=== PATIENT | male | born 1930 | race Hispanic/Latino ===

== ENCOUNTER 2016-12-21 16:16 | Inpatient (IN) | payer OTHER, MEDICARE ==
[2016-12-21] MEDS: POLYETHYLENE GLYCOL 3350 17 GM/Dose PACKET PO SCH (17:58)
[2016-12-21] MEDS: Cefpodoxime (Vantin) 200 mg Tab PO SCH (17:58)
[2016-12-21] MEDS ORDERED: Pantoprazole 40 mg EC Tab PO SCH (18:00)
[2016-12-21] MEDS: Insulin Lispro 1 UNITS/0.01 ML SC SCH (18:04)
[2016-12-21] MEDS: Albuterol 0.083% Inhal Sol (2.5 mg/3 mL) UD IH SCH (19:57)
[2016-12-21] MEDS: Insulin Reg-MEDIUM-Coverage SC SCH (21:34)
[2016-12-21 23:03] VITALS: BMI 25.9
[2016-12-21] MEDS ORDERED: Influenza Vaccine 45 MCG/0.5 ml IM ONE (23:03)
[2016-12-22] MEDS: Pantoprazole 40 mg EC Tab PO SCH ×2 (05:37→17:25)
[2016-12-22] MEDS: Cefpodoxime (Vantin) 200 mg Tab PO SCH ×2 (05:37→17:26)
[2016-12-22] MEDS: Levothyroxine 100 MCG TAB PO SCH (05:37)
[2016-12-22] MEDS: Insulin Reg-MEDIUM-Coverage SC SCH ×4 (06:51→22:01)
[2016-12-22] MEDS ORDERED: MULTI INGREDIENT TOP PRN ×2 (07:24→07:46)
[2016-12-22] MEDS: Albuterol 0.083% Inhal Sol (2.5 mg/3 mL) UD IH SCH ×4 (07:34→20:35)
[2016-12-22] MEDS ORDERED: Ammonium Lactate 12% Lotion (225 g) TOP PRN (08:12)
--- NOTE | 2016-12-22 08:34 | HP ---
The patient is in the transitional care unit in [facility] in [place]. The patient was admitted for deconditioning and rehabilitation, treatment of weakness, instability, altered state of balance, and history of fall. PAST MEDICAL HISTORY: Congestive heart failure. The patient has a pacemaker. The patient has diabetes, chronic lung disease, hypothyroidism, osteoarthritis, and carcinoma of prostate. The patient also HAS ALLERGY TO LEVAQUIN AND CONTRAST MEDIA. The patient has renal insufficiency, and past history of multiple angioplasties. The patient has history of treatment for prostate cancer. He is currently off chemotherapy which was discontinued due to side effects. PHYSICAL EXAMINATION: VITAL SIGNS: The patient's temperature 97.7, patient's pulse is 65, blood pressure 163/87, patient's respirations are 18, O2 sat is 95% on 2 liters of oxygen. HEAD: Normocephalic. He does have some tenderness in the posterior aspect of the skull. NECK: JVP is slightly elevated. The patient's carotid pulses are present. Thyroid is not enlarged. EYES: The pupils are equal. ENT: Within normal limits. LUNGS: Trachea central. Breath sounds vesicular. Adventitious sounds are heard bilaterally. Crepitations are diffuse, scattered. HEART: Normal sinus rhythm. S1, S2 present. No murmurs. ABDOMEN: Soft. The patient has tenderness, not localizing. The patient has distention. The patient complains of abdominal pain. CENTRAL NERVOUS SYSTEM: No focal neurological deficits are noted at this time. The patient does have a history of diabetic neuropathy. The patient has history of lumbar neuritis. The patient has history of peripheral neuropathy. MEDICATIONS: Consist of DuoNeb q. 6 hours. The patient is on amiodarone 200 mg daily, aspirin 81 mg daily. The patient is on vitamin D. The patient is on PhosLo, digoxin 125 mcg daily, Lasix 40 mg daily. The patient is on Lipitor 10 mg daily. The patient also gets gabapentin 200 mg daily. Has the prednisone 5 mg daily, pantoprazole 40 mg daily, Singulair 10 mg daily, Synthroid 100 mcg. A 2 g sodium heart healthy diet. BLOOD WORK: The blood sugar is 227 this morning. Will continue current management, physical therapy and continue all medications and evaluations. Giselle Polk MD cc: [id number] TT: 12/22/2016 08:34:04 mn ANNABELLA
[2016-12-22] MEDS ORDERED: Ammonium Lactate 12% Lotion (225 g) TOP SCH (10:00)
[2016-12-22] MEDS ORDERED: Levothyroxine 100 MCG TAB PO SCH (10:00)
[2016-12-22] MEDS: POLYETHYLENE GLYCOL 3350 17 GM/Dose PACKET PO SCH ×2 (10:25→17:25)
[2016-12-22] MEDS: Insulin Lispro 1 UNITS/0.01 ML SC SCH ×3 (10:34→17:57)
--- NOTE | 2016-12-22 11:54 | CON ---
DATE: 12/22/2016 REASON FOR CONSULTATION: Continuity of the care in transitional care unit, coronary artery disease s tatus post syncope. BRIEF CLINICAL HISTORY: This is an 86-year-old male with past medical history significant for schultz ry artery disease, metastatic prostate cancer, diabetes, hypertension, hyperlipidemia; coronary arter y disease, status post CABG many years ago, status post multiple PTCAs, status post AICD, who had a s yncopal episode at home while patient was in the laundry and felt dizzy and fell down while stacking the newspapers. Unable to stand up for a couple of hours. Ultimately, patient was able to call and then called 911 and was brought here. Denies any chest pain, denies any shortness of breath, denies any palpitation. The patient was found to have elevated BNP and fluid overload. Lasix was given. T he patient also had AICD interrogation done that shows end of life reaching in 2 months. Right now, defibrillator looks okay. Not any issues at this time bedsides this, though patient had 1 episode of flutter, very short lived, 3-4 weeks ago. No recent arrhythmia noted during the admission. PAST MEDICAL HISTORY: Significant for coronary artery disease, CABG, status post AICD, history of PT CA before CABG, history of PTCA after CABG, history of prostate cancer with metastasis, history of mu ltiple urinary tract infections, indwelling Avendano catheter; history of deep vein thrombosis, was on P radaxa at one point, but was later on discontinued because of the bleed; history of chronic renal ins ufficiency; history of ischemic cardiomyopathy, status post multiple stents as mentioned; history of yai-EA-mhmilla myocardial infarction on previous admission and, because of underlying comorbidity and asymptomatic, it was decided to treat medically. PREVIOUS CARDIAC WORKUP: The patient has recently had echocardiography done dated 12/20/2016 that sh owed ejection fraction 45%, trace to mild aortic regurgitation, mild to moderate valvular aortic sten osis, moderate mitral regurgitation, mild to moderate tricuspid regurgitation, RV systolic pressure 4 3, trace to mild pulmonary insufficiency. No vegetation or thrombus noted. Peak gradient across 22 mm, mean gradient 12 mm, valve area 1.3 cm2 consistent with mild to moderate aortic stenosis. REVIEW OF SYSTEMS: As per HPI. PHYSICAL EXAMINATION: VITAL SIGNS: Temperature afebrile, heart rate 69, blood pressure 167/71. HEENT: PERRLA. Extraocular muscles intact. NECK: Supple. No carotid bruits. No thyromegaly. CHEST: Clear to auscultation. HEART: S1, S2 regular. ABDOMEN: Soft. EXTREMITIES: Clubbing and cyanosis negative. EKG shows a V-paced rhythm, underlying normal sinus. BLOOD WORKUP: WBC 11.4, hemoglobin 9.3, hematocrit 29.6, platelet count 151. Chemistry shows sodium 135, potassium 4.____, chloride 96, carbon dioxide 33, anion gap of 10, BUN 42, creatinine 1.4, magn esium 2.6. IMPRESSION: Decompensated congestive heart failure, jugular venous distention elevated; kidney funct ion improved, though patient's baseline renal insufficiency, possibly reflecting the fluid overload. Recent echocardiogram shows ejection fraction 45%, aortic stenosis, mild to moderate; trace to mild aortic regurgitation, moderate mitral regurgitation, mild to moderate tricuspid regurgitation, right ventricular systolic pressure of 43. Coronary artery disease, status post coronary artery bypass gra ft, status post percutaneous transluminal coronary angioplasty; paroxysmal atrial fibrillation, diabe hafsa, hypertension, hyperlipidemia, renal insufficiency, prostate cancer with metastasis, czt-BV-[id number] nt myocardial infarction in the recent past. RECOMMENDATION: In view of above and comorbidities, will try to treat patient medically; no invasive cardiac workup. Will continue Lasix for decompensated congestive heart failure, acute on chronic, s econdary to systolic dysfunction. Monitor renal function closely. Continue amiodarone to prevent go ing into AFib. Continue baby aspirin. Continue digoxin. Continue atorvastatin. Will give an addit ional Lasix 1 dose at 2 p.m. Repeat the lab in the morning. As mentioned above, the day before yest brennen patient had AICD interrogation done that shows end of the life reaching in 2 months'. One epis ode of atrial flutter 2-3 weeks prior to admission. OptiVol also shows elevated as indirect measurem ent for the congestive heart failure consistent with fluid overload. Again, decompensated congestive heart failure, acute on chronic, secondary to systolic dysfunction. Thank you, Dr. Marcus, for providing the opportunity in taking care of the patient. Will put DVT prop hylaxis as well and monitor H and H. Will follow with you. Mely Chavarria MD cc: [id number] TT: 12/22/2016 11:53:56 Confirmation # [id number] Dictation # [id number] mn
--- NOTE | 2016-12-22 12:08 | PN ---
DATE: 12/22/2016 GI FOLLOWUP NOTE Seen and examined at the bedside earlier today. He was ambulating in the halls in TCU. He was given Dulcolax tab yesterday, and he happily reported having a good bowel movement. Did not report any melena or bright red blood. Abdominal pain is still present, but in no acute distress, tolerating oral intake. VITAL SIGNS: Temperature 97.7. His blood pressure is 167/71, pulse 69, respirations 18, 95 on nasal cannula. LABORATORY DATA: Labs today noted is POC glucose 227. PHYSICAL EXAMINATION: HEENT: Sclerae are anicteric. NECK: Supple. CARDIAC: S1, S2. LUNGS: With decreased breath sounds, but no rales or wheeze. ABDOMEN: With bowel sounds, softly distended. Positive for tenderness in the lower abdomen, but no rebound or guarding. ASSESSMENT: This is an 86-year-old male with history of metastatic prostate cancer, chronic constipation. He finally had a bowel movement yesterday after a Dulcolax tablet, status post fall, history of coronary artery disease, diabetes mellitus. He also is being treated for urinary tract infection, positive Klebsiella pneumoniae, elevated liver function tests, mainly AST, ALT, which are improving. The patient did have history of gallstones. Ultrasound was done on previous admission. The common bile duct was not dilated. It was measuring 4.5 mm. PLAN: Continue the bowel regimen. He is on MiraLax b.i.d. We can decrease the dose if patient has more than 2 stools a day. Continue PPI - Protonix. The patient is on Lasix. He is also on Lovenox, on Vantin p.o. He is also on his Lipitor and amiodarone. We will check labs in the a.m. Seen and discussed with Dr. Bal. Claudia ANAYA cc: [id number] TT: 12/22/2016 12:07:53 Confirmation # [id number] Dictation # [id number] jn ANNABELLA
[2016-12-22] MEDS: Enoxaparin 30 mg Syringe SC SCH (12:53)
--- NOTE | 2016-12-22 13:50 | CON ---
DATE: 12/22/2016 HISTORY OF PRESENT ILLNESS: An 86-year-old male with past medical history of coronary artery disease , metastatic prostate cancer, diabetes, hypertension, hyperlipidemia, coronary artery disease, and st atus post AICD. The patient came to hospital with a syncopal episode and was in the laundry and felt dizzy, came to the hospital. I was called to evaluate the patient. The patient transferred from [facility] floor to [facility] and sitting comfortably and able to answer all the questions. IMPRESSION: An 86-year-old male with multiple medical problems came to the hospital with a syncopal episode. Feeling better now. PLAN: Continue present management. We will follow up. Felix Bradley MD cc: [id number] TT: 12/22/2016 13:49:27 Confirmation # [id number] Dictation # [id number] tn
[2016-12-22] MEDS: Digoxin 125 mcg (0.125 mg) Tab PO SCH (13:58)
[2016-12-23] MEDS: Pantoprazole 40 mg EC Tab PO SCH ×2 (06:01→18:02)
[2016-12-23] MEDS: Levothyroxine 100 MCG TAB PO SCH (06:01)
[2016-12-23] MEDS: Cefpodoxime (Vantin) 200 mg Tab PO SCH ×2 (06:18→18:02)
[2016-12-23 06:22] LABS: ALB/GLOB RATIO 1.1 (1.1-1.8); BILIRUBIN,TOTAL 0.5 mg/dL (0.2-1.3); CALCIUM 8.2 mg/dL (8.4-10.5); POTASSIUM 4.3 mmol/L (3.6-5.0); TOTAL PROTEIN 5.4 g/dL (5.8-8.3)
[2016-12-23] MEDS: Albuterol 0.083% Inhal Sol (2.5 mg/3 mL) UD IH SCH ×4 (07:34→21:00)
[2016-12-23] MEDS: Insulin Reg-MEDIUM-Coverage SC SCH ×4 (07:52→22:24)
--- NOTE | 2016-12-23 09:24 | PN ---
DATE: 12/23/2016 The patient is an 86-year-old white man. He is in TR (transitional care unit) , room 327 bed 1. The patient was admitted for deconditioning, treatment of congestive heart failure, pain management and physical therapy. PAST MEDICAL HISTORY: CHF, congestive cardiomyopathy. The patient has a pacemaker. The patient has history of chronic lung disease, history of cancer of the prostate, history of renal insufficiency, diabetes mellitus. PHYSICAL EXAMINATION: VITAL SIGNS: This morning, the patient's pulse is 65, blood pressure is 130/ 60. The patient's respirations are 20, O2 sat is 99% on 2 liters of oxygen. HEAD: Normocephalic. He has some tenderness in the occipital area, but no localizing signs on the CAT scan. NECK: JVP is flat. Carotid pulses are present. Thyroid is not enlarged. HEART: Normal sinus rhythm. S1, S2 present. LUNGS: Trachea central. Breath sounds vesicular. No adventitious sounds are heard excepting occasional crepitations bilaterally. ABDOMEN: Soft, mildly distended. No localizing signs. No tenderness noted. CENTRAL NERVOUS SYSTEM: The patient is conscious, rational, oriented. There is no evidence of any focal neurological signs even though patient was admitted after a fall, possible syncope. Neurological evaluation does not reveal any significant pathology. MEDICATIONS: Consist of DuoNeb for respiratory treatment. The patient is on amiodarone 200 mg daily, aspirin 81 mg daily. The patient is on Hectorol 0.5 mcg p.o. daily. The patient is on insulin coverage for diabetes. The patient is on Lac-Hydrin cream for dry skin of leg, digoxin 125 mcg daily, Lasix 40 mg IV daily. The patient is on Protonix 40 mg daily, Lipitor 10 mg daily, Lovenox 30 mg subQ. The patient also gets MiraLax for constipation, gabapentin 200 mg. The patient is on Phoslo, prednisone 5 mg daily. The patient's diet is 2 gram sodium, heart healthy diet, diabetic. BLOOD WORK: Chemistry: The BUN is 45, creatinine 1.5 which appears to be at baseline for him. His sugar is 219. His condition is improved. Will continue current management. Giselle Polk MD cc: [id number] TT: 12/23/2016 09:23:55 Confirmation # [id number] Dictation # [id number] ariel W[place]HESTER
[2016-12-23] MEDS ORDERED: metOLazone 5 MG TAB PO STA (10:04)
[2016-12-23] MEDS: POLYETHYLENE GLYCOL 3350 17 GM/Dose PACKET PO SCH ×2 (10:37→18:02)
[2016-12-23] MEDS: Enoxaparin 30 mg Syringe SC SCH (10:37)
--- NOTE | 2016-12-23 11:07 | PN ---
DATE: 12/23/2016 The patient in room 327, bed 1. REASON FOR CONSULTATION: Coronary artery disease, cardiomyopathy, history of congestive heart failur e, syncope. HISTORY OF PRESENT ILLNESS: An 86-year-old male who has a significant history of coronary artery dis ease, metastatic prostate cancer, diabetes, hypertension, hyperlipidemia, status post CABG, status po st PTCA, status post AICD insertion, and syncopal episode at home. The patient felt dizzy while stac alexis the newspapers. He was unable to stand up for a couple of hours. Ultimately, the patient was a ble to call 911 and was brought to the hospital. The patient was also found to have elevated BNP and fluid overload. The patient had interrogation of AICD which showed that it is working normally but reaching end of life, and he has still 2 months on the battery. The patient is sitting in chair without any chest pain or palpitation. He says when he walks he gets shortness of breath. PHYSICAL EXAMINATION: VITAL SIGNS: Blood pressure 136/57, respirations 20, pulse 65, temperature 97.2. HEAD: Normocephalic. EYES: Pupils normal. Conjunctivae normal. NECK: JVP slightly elevated. LUNGS: Clear. CARDIOVASCULAR: S1, S2. ABDOMEN: Soft. No tenderness, no organomegaly. EXTREMITIES: No clubbing, no cyanosis. LABORATORY DATA: Shows sodium 136, potassium 4.3, BUN 45, creatinine 1.5, random sugar 219, random g lucose 193, calcium 8.2. AST 60, ALT 69, total protein 5.4, albumin 2.8. The patient had echo 12/20/2016 that showed left ventricle size is normal, mild concentric left ventr icular hypertrophy, LV ejection fraction mildly impaired with ejection fraction 45%, trace to mild ao rtic regurg, ____ valvular aortic stenosis, mitral regurgitation is moderate, mild to moderate tricus pid regurg, RVSP 42 mmHg. PAST DETAILED CARDIAC WORKUP: As mentioned in our consultation of 12/22/2016. DIAGNOSES: Decompensated congestive heart failure, acute on chronic, left ventricular systolic failu re; renal insufficiency, fluid overload, mild pulmonary hypertension; ____ aortic stenosis, mild to m oderate tricuspid regurgitation, moderate mitral regurg, trace to mild aortic regurgitation; coronary artery disease, status post coronary artery bypass surgery, status post angioplasty and stent insert ion; paroxysmal atrial fibrillation, diabetes, hypertension, hyperlipidemia, prostate cancer with met astasis, [id number] elevation myocardial infarction in the recent past. PLAN: The patient is on hand nebulizer therapy with albuterol. The patient is getting amiodarone 20 0 mg p.o. daily, aspirin 81 mg p.o. daily, digoxin 0.125 daily, furosemide 40 mg IV daily, atorvastat in 10 mg daily, Lovenox 30 subQ daily, Singulair 10 mg daily, Synthroid 100 mcg p.o. daily, Vantin 20 0 mg p.o. b.i.d., prednisone 5 mg daily. Will give patient Zaroxolyn 5 mg today to diurese more to h elp his shortness of breath. Will follow with you. Mely Walters MD cc: [id number] TT: 12/23/2016 10:54:56 Confirmation # [id number] Dictation # [id number] mn 12/23/2016 10:06:57
[2016-12-23] MEDS: Insulin Lispro 1 UNITS/0.01 ML SC SCH ×3 (11:31→17:08)
[2016-12-23] MEDS: Digoxin 125 mcg (0.125 mg) Tab PO SCH (14:59)
--- NOTE | 2016-12-23 15:17 | CP.PCM.PCO ---
Assessment & Plan - Assessment and Plan (Free Text) Assessment: neuro communication note:Headache is more cervicogenic with underlying episodes of hyperglycemia. cervical muscle exercises and tens unit for headache, fioricet 1tab po q4hr and gabapentin 200 mg po qhs. will sign off, please reconsult if necessary. rex BARRERA.
[2016-12-24] MEDS: Pantoprazole 40 mg EC Tab PO SCH ×2 (05:39→17:36)
[2016-12-24] MEDS: Levothyroxine 100 MCG TAB PO SCH (05:41)
[2016-12-24] MEDS: Cefpodoxime (Vantin) 200 mg Tab PO SCH ×2 (06:42→17:37)
[2016-12-24] MEDS: Albuterol 0.083% Inhal Sol (2.5 mg/3 mL) UD IH SCH ×6 (07:41→23:36)
[2016-12-24] MEDS: Insulin Reg-MEDIUM-Coverage SC SCH ×4 (08:12→21:21)
--- NOTE | 2016-12-24 08:30 | CP.PCM.PN ---
Subjective - Date & Time of Evaluation Date of Evaluation: 12/24/16 Time of Evaluation: 07:45 - Subjective Subjective: Patient is seen this morning in TRCU. He is feeling better. less SOB on exertion. c/o back pain. Objective - Vital Signs/Intake and Output Vital Signs (last 24 hours): Temp Pulse Resp BP Pulse Ox 97.9 F 66 20 109/54 L 96 12/23/16 16:00 12/23/16 16:00 12/23/16 16:00 12/23/16 16:00 12/23/16 16:00 Intake and Output: 12/24/16 12/24/16 06:59 18:59 Intake Total 680 Output Total 2200 Balance -1520 - Medications Medications: Current Medications Acetaminophen/Butalbital/Caffeine (Fioricet) 1 tab PO Q4H PRN; Protocol PRN Reason: Headache Albuterol Sulfate (Albuterol 0.083% Inhal Raissa (2.5 Mg/3 Ml) Ud) 2.5 mg IH QID JEANA PRN Reason: Protocol Last Admin: 12/24/16 07:41 Dose: 2.5 mg Amiodarone HCl (Cordarone) 200 mg PO DAILY JEANA PRN Reason: Protocol Last Admin: 12/23/16 10:35 Dose: 200 mg Aspirin (Ecotrin) 81 mg PO 0800 JEANA PRN Reason: Protocol Last Admin: 12/23/16 08:44 Dose: 81 mg Atorvastatin Calcium (Lipitor) 10 mg PO DIN JEANA PRN Reason: Protocol Last Admin: 12/23/16 18:02 Dose: 10 mg Calcium Acetate (Phoslo) 667 mg PO DAILY JEANA PRN Reason: Protocol Last Admin: 12/23/16 10:36 Dose: 667 mg Cefpodoxime Proxetil (Vantin) 200 mg PO 0600,1800 JEANA PRN Reason: Protocol Last Admin: 12/24/16 06:42 Dose: 200 mg Digoxin (Lanoxin) 0.125 mg PO 1400 JEANA PRN Reason: Protocol Last Admin: 12/23/16 14:59 Dose: 0.125 mg Doxercalciferol (Hectorol) 0.5 mcg PO DAILY JEANA PRN Reason: Protocol Last Admin: 12/23/16 10:36 Dose: 0.5 mcg Enoxaparin Sodium (Lovenox) 30 mg SC DAILY JEANA PRN Reason: Protocol Last Admin: 12/23/16 10:37 Dose: 30 mg Furosemide (Lasix) 40 mg IVP DAILY EJANA PRN Reason: Protocol Last Admin: 12/23/16 11:32 Dose: 40 mg Gabapentin (Neurontin) 200 mg PO HS JEANA PRN Reason: Protocol Last Admin: 12/23/16 23:17 Dose: 200 mg Insulin Human Lispro (Humalog) 20 units SC TID JEANA PRN Reason: Protocol Last Admin: 12/23/16 17:08 Dose: Not Given Insulin Human Regular (Humulin R Med) 0 units SC ACHS JEANA PRN Reason: Protocol Last Admin: 12/24/16 08:12 Dose: 1 units Lactic Acid (Lac-Hydrin 12% Lotion (225 G)) 0 gm TOP BID PRN PRN Reason: DRY SKI N Levothyroxine Sodium (Synthroid) 100 mcg PO 0600 JEANA PRN Reason: Protocol Last Admin: 12/24/16 05:41 Dose: 100 mcg Lidocaine (Lidoderm) 1 ea TD DAILY JEANA Montelukast Sodium (Singulair) 10 mg PO DAILY JEANA PRN Reason: Protocol Last Admin: 12/23/16 10:35 Dose: 10 mg Pantoprazole Sodium (Protonix Ec Tab) 40 mg PO 0630,1630 JEANA PRN Reason: Protocol Last Admin: 12/24/16 05:39 Dose: 40 mg Polyethylene Glycol (Miralax) 17 gm PO BID JEANA PRN Reason: Protocol Last Admin: 12/23/16 18:02 Dose: 17 gm Prednisone (Prednisone Tab) 5 mg PO DAILY JEANA PRN Reason: Protocol Last Admin: 12/23/16 10:36 Dose: 5 mg - Labs Labs: 12/23/16 05:00 - Constitutional Appears: No Acute Distress - Head Exam Head Exam: ATRAUMATIC, NORMOCEPHALIC - Respiratory Exam Respiratory Exam: Clear to Ausculation Bilateral, NORMAL BREATHING PATTERN - Cardiovascular Exam Cardiovascular Exam: +S1, +S2 - GI/Abdominal Exam GI & Abdominal Exam: Soft, Normal Bowel Sounds - Neurological Exam Neurological Exam: Alert, Awake, Oriented x3 Assessment and Plan - Assessment and Plan (Free Text) Assessment: s/p fall UTI Chronic heart failure HTN CAD COPD Hypothyroidism Back pain/arthritis DMII Plan: Patient is complaining of pain in his lower back. Will order lidoderm patch. continue PT. Patient received one dose of Zaroxolyn yesterday and diuresed well. Improvement in SOB on exertion. 2 gm sodium, diabetic diet
[2016-12-24] MEDS ORDERED: metOLazone 5 MG TAB PO STA (09:34)
[2016-12-24] MEDS: Enoxaparin 30 mg Syringe SC SCH (09:52)
[2016-12-24] MEDS: Lidocaine 5% Patch TD SCH (09:52)
[2016-12-24] MEDS: POLYETHYLENE GLYCOL 3350 17 GM/Dose PACKET PO SCH ×2 (09:53→17:36)
[2016-12-24] MEDS: Insulin Lispro 1 UNITS/0.01 ML SC SCH ×3 (09:57→17:37)
--- NOTE | 2016-12-24 11:08 | PN ---
DATE: 12/24/2016 The patient in room 327, bed 1. REASON FOR CONSULTATION: Coronary artery disease, cardiomyopathy, history of congestive heart failur e, syncope. HISTORY OF PRESENT ILLNESS: An 86-year-old male, known to have coronary artery disease, CABG, multip le angioplasties, hypertension, hyperlipidemia, diabetes, prostatic cancer with metastasis, status po st AICD insertion, had syncopal episode at home. The patient felt dizzy while stacking the newspaper s. He was not able to stand up for a couple of hours. Ultimately, he called 911 who brought him to the hospital. The patient was admitted on medical floor, got stabilized now, in transitional care un it for deconditioning and physical therapy. The patient was complaining of shortness of breath on mi nimal exertion, so I gave him Zaroxolyn 5 mg p.o. yesterday, along with Lasix, and he is feeling bett er today. Breathing is better and he had a good diuresis effect. Denies any chest pain or palpitati on. Sitting comfortably in chair. PHYSICAL EXAMINATION: VITAL SIGNS: Blood pressure 109/54, respirations 20, pulse 66, temperature 97.9. HEAD: Normocephalic. EYES: Pupils normal. Conjunctivae normal. NOSE AND THROAT: Normal. NECK: JVP is slightly elevated. LUNGS: No rales. CARDIOVASCULAR: S1, S2, systolic murmur, no rub. ABDOMEN: No organomegaly. Bowel sounds normal. EXTREMITIES: No clubbing, no cyanosis. LABORATORY DATA: Sodium 136, potassium 4.3, BUN 45, creatinine 1.5, random sugar 181, AST 60, ALT 69 , total protein 5.4, albumin 2.8. DIAGNOSES: Decompensated congestive heart failure, qxxsc-xu-tqiveum left ventricular systolic failur e, renal dysfunction, fluid overload, mild pulmonary hypertension, mild aortic stenosis, mild to mode rate tricuspid regurgitation, moderate mitral regurge, coronary artery disease, status post coronary artery bypass surgery, status post angioplasty and stent insertion, paroxysmal atrial fibrillation, d iabetes, hypertension, hyperlipidemia, prostate cancer with metastasis, non-ST segment elevation myoc ardial infarction in the recent past. PLAN: The patient felt better with Zaroxolyn 5 mg yesterday. We are going to give another dose toda y and therefore medication will continue the same, amiodarone 200 mg p.o. daily, aspirin 81 mg p.o. d aily, digoxin 0.125 daily, furosemide 40 IV daily, Lipitor 10 mg daily, Lovenox 30 subQ daily, Singul air 10 mg daily, Synthroid 100 mcg p.o. daily, Vantin 200 mg p.o. b.i.d., prednisone 5 mg daily. We will also repeat SMA-7 and CBC in the morning. The patient has not long time anymore episodes of atr ial fibrillation, we will continue present therapy. We will follow with you. Mely Walters MD cc: [id number] TT: 12/24/2016 11:08:06 Confirmation # [id number] Dictation # [id number] ln
[2016-12-24] MEDS: Digoxin 125 mcg (0.125 mg) Tab PO SCH (13:51)
[2016-12-24] MEDS: Apap-Butalbital-Caffeine 325-50-40mg Tab PO PRN (17:37)
[2016-12-25] MEDS: Pantoprazole 40 mg EC Tab PO SCH ×2 (06:14→18:21)
[2016-12-25] MEDS: Levothyroxine 100 MCG TAB PO SCH (06:14)
[2016-12-25] MEDS: Cefpodoxime (Vantin) 200 mg Tab PO SCH ×2 (06:14→18:22)
[2016-12-25] MEDS: Insulin Reg-MEDIUM-Coverage SC SCH ×4 (06:31→22:09)
[2016-12-25] MEDS: Albuterol 0.083% Inhal Sol (2.5 mg/3 mL) UD IH SCH ×7 (07:34→23:10)
[2016-12-25 08:46] LABS: ADD MANUAL DIFF? NO
[2016-12-25 08:51] LABS: BASO # 0.02 K/mm3 (0.0-2.0); BASO % 0.2 % (0.0-3.0); EOS # 0.3 (0.0-0.7); EOS % 3.1 % (1.5-5.0); GRAN # 6.33 (1.4-6.5); GRAN % 72.7 % (50.0-68.0); HEMATOCRIT 31.3 % (42.0-52.0); LYMPH # 1.3 (1.2-3.4); LYMPH % 15.1 % (22.0-35.0); MEAN CELL VOLUME 87.7 fL (80.0-105.0); MEAN CORPUSCULAR HEMOGLOBIN 27.5 pg (25.0-35.0); MEAN CORPUSCULAR HGB CONC 31.3 g/dl (31.0-37.0); MEAN PLATELET VOLUME 9.7 fl (7.0-11.0); MONO # 0.8 (0.1-0.6); MONO % 8.9 % (1.0-6.0); PLATELET COUNT 242 10^3/uL (120.0-450.0); RED CELL DISTRIBUTION WIDTH 16.1 % (11.5-14.5); WHITE BLOOD COUNT 8.7 10^3/ul (4.5-11.0)
[2016-12-25 09:03] LABS: CALCIUM 8.4 mg/dL (8.4-10.5); MAGNESIUM 2.6 mg/dL (1.7-2.2); PHOSPHOROUS 3.9 mg/dL (2.5-4.5); POTASSIUM 4.3 mmol/L (3.6-5.0)
--- NOTE | 2016-12-25 11:08 | PN ---
DATE: 12/25/2016 The patient is in the transitional care unit in [facility], room 327, bed 1. The patient was admitted from acute care for syncope. 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 The patient HAS ALLERGIES TO LEVOFLOXACIN AND ALSO IODINATED CONTRAST MEDIA. The patient was seen this morning. He is comfortable, getting physical therapy. States he is doing much better, ambulating and his strength and balance is good. PHYSICAL EXAMINATION: VITAL SIGNS: The patient's pulse is 76, blood pressure 115/54, respirations are 18. The patient's head is normocephalic. The patient had no complaints in the posterior part of the head that he had in the past. NECK: Thyroid is not clinically enlarged. JVP is flat. Carotid pulses are present. LUNGS: Trachea central. Breath sounds vesicular. Has a few scattered rales bilaterally. HEART: Normal sinus rhythm. The patient has a pacemaker with defibrillator. ABDOMEN: Soft, distended mildly. Diffuse tenderness. No localizing signs. CENTRAL NERVOUS SYSTEM: The patient has peripheral neuropathy. No focal neurological signs. Cranial nerves intact. Motor and sensory functions as noted. There is sensory function deficits with peripheral neuropathy related to diabetes mellitus. MEDICATIONS: The patient's medications consist of DuoNeb inhalation therapy. The patient is on amiodarone 200 mg daily, aspirin 81 mg daily. The patient is on vitamin D. The patient is on insulin coverage. The patient is on digoxin 125 mcg daily, Protonix 40 mg daily, Lasix 40 mg IV daily. The patient is on Zaroxolyn intermittent dose for fluid retention. The patient's dose of Lipitor is 10 mg daily. He is covered with Lovenox for prevention of deep vein thrombosis. He is on PhosLo 667 mg p.o. daily for adjustment of phosphate secondary to renal insufficiency. Diet is 2 gram sodium diabetic diet. His condition is improving. The patient' s clinical presentation today is stable. We will continue current management and follow up in the transitional care for deconditioning and rehabilitation. Giselle Polk MD cc: [id number] TT: 12/25/2016 11:08:00 Confirmation # [id number] Dictation # [id number] carlene WINCHE[place]
[2016-12-25] MEDS: POLYETHYLENE GLYCOL 3350 17 GM/Dose PACKET PO SCH ×2 (11:55→18:21)
[2016-12-25] MEDS: Lidocaine 5% Patch TD SCH (12:00)
[2016-12-25] MEDS: Enoxaparin 30 mg Syringe SC SCH (12:00)
[2016-12-25] MEDS: Insulin Lispro 1 UNITS/0.01 ML SC SCH ×2 (12:02→13:50)
--- NOTE | 2016-12-25 15:20 | PN ---
DATE: 12/25/2016 The patient in room 327, bed 1. REASON FOR CONSULTATION AND FOLLOWUP: Coronary artery disease, cardiomyopathy, history of congestive heart failure, syncope. HISTORY OF PRESENT ILLNESS: An 86-year-old male, known to have coronary artery disease, CABG, multip le angioplasties, hypertension, hyperlipidemia, diabetes, prostatic cancer with metastasis, status po st AICD insertion, had syncopal episode at home. The patient was on medical floor, now is in transit ional care unit for deconditioning and physical therapy. The patient, last 2 days, was complaining o f shortness of breath on minimal exertion, so Zaroxolyn 5 mg p.o. daily was given to the patient. He had good diuresis and he feels much better. Now, he can walk more distance without any shortness of breath. Denies any chest pain or palpitation. PHYSICAL EXAMINATION: VITAL SIGNS: Blood pressure 103/45, respirations 18, pulse 61, temperature 97.6. HEAD: Normocephalic. EYES: Pupils normal. Conjunctivae slightly pale. NECK: JVP low. Carotid equal. THORAX: AP diameter normal. LUNGS: Clear. CARDIOVASCULAR: S1 and S2, systolic murmur, no rub. ABDOMEN: Soft, no tenderness, no organomegaly. EXTREMITIES: No clubbing, no cyanosis. LABORATORY DATA: WBC 8.7, hemoglobin 9.8, hematocrit 31.3, platelet 242. Sodium 135, potassium 4.3, BUN 42, creatinine 1.4, random glucose 202, calcium 8.4, phosphorous 3.9. DIAGNOSES: Decompensated congestive heart failure, acute on chronic left ventricular systolic failur e, renal dysfunction, fluid overload, mild pulmonary hypertension, mild aortic stenosis, mild to mode rate tricuspid regurgitation, moderate mitral regurgitation, coronary artery disease, status post cor onary artery bypass surgery, status post angioplasty and stent insertion, paroxysmal atrial fibrillat ion. Last few months, patient has had no episodes of atrial fibrillation. Diabetes, hypertension, h yperlipidemia, prostatitic cancer with metastasis, non-ST segment elevation myocardial infarction in the recent past. PLAN: We will continue amiodarone 200 mg daily, aspirin 81 mg p.o. doxercalciferol/Hectorol 0.5 mcg p.o. daily, insulin as ordered, digoxin 0.125 daily, prednisone 5 mg daily, insulin Humalog 20 units subQ t.i.d. We will continue present therapy and we will follow with you. Mely Walters MD cc: [id number] TT: 12/25/2016 15:19:42 Confirmation # [id number] Dictation # [id number] en
[2016-12-25] MEDS: Digoxin 125 mcg (0.125 mg) Tab PO SCH (16:16)
[2016-12-26] MEDS: Pantoprazole 40 mg EC Tab PO SCH ×2 (06:12→16:30)
[2016-12-26] MEDS: Cefpodoxime (Vantin) 200 mg Tab PO SCH ×2 (06:13→18:01)
[2016-12-26] MEDS: Levothyroxine 100 MCG TAB PO SCH (06:13)
[2016-12-26] MEDS: Insulin Reg-MEDIUM-Coverage SC SCH ×4 (06:33→22:08)
[2016-12-26] MEDS: Albuterol 0.083% Inhal Sol (2.5 mg/3 mL) UD IH SCH ×5 (07:37→23:14)
--- NOTE | 2016-12-26 09:04 | PN ---
DATE: 12/26/2016 The patient is in the transitional care unit in room 327, bed 1. The patient was admitted for rehabilitation, deconditioning, and treatment of congestive heart failure, and also the patient had history of syncope. The patient is seen this morning. He is comfortable, sitting in the chair, eating his breakfast. PHYSICAL EXAMINATION: VITAL SIGNS: Pulse is 65, blood pressure 110/58. Respirations are 18. O2 sat is 98%. He is on 2 liters of oxygen. APPEARANCE: Good. HEAD: Normocephalic. NECK: Within normal limits. HEART: Normal sinus rhythm. The patient has a pacemaker. LUNGS: Trachea is central. Breath sounds vesicular. Scattered rales are heard. CENTRAL NERVOUS SYSTEM: Within normal limits. ABDOMEN: Soft. Liver and spleen not palpable. No tenderness. The patient's medications will be continued. There is no change. LABORATORY WORK: The last hemoglobin is 9.8. His chemistry: The BUN is 42. Creatinine is 1.4. His blood sugar is 190. PLAN: We will continue current management. Continue physical therapy. The patient is on a diet. The oreman has reduced his diet to a renal diet. He has restriction for diabetes. He has restriction for congestive heart failure, and now he has also restriction for renal insufficiency. The patient is not happy, but I have advised him to try to tolerate whatever is given for it is for his benefit. Giselle Polk MD cc: [id number] TT: 12/26/2016 09:03:27 Confirmation # [id number] Dictation # [id number] jn MTDD
[2016-12-26] MEDS: Lidocaine 5% Patch TD SCH (10:16)
[2016-12-26] MEDS: Enoxaparin 30 mg Syringe SC SCH (10:17)
[2016-12-26] MEDS: POLYETHYLENE GLYCOL 3350 17 GM/Dose PACKET PO SCH ×2 (10:17→18:00)
[2016-12-26] MEDS: Insulin Lispro 1 UNITS/0.01 ML SC SCH ×3 (10:31→17:58)
--- NOTE | 2016-12-26 13:10 | PN ---
DATE: 12/26/2016 REASON FOR CONSULTATION AND FOLLOWUP: Coronary artery disease, cardiomyopathy, history of congestive heart failure, syncope. BRIEF CLINICAL HISTORY: This is an 86-year-old male with a past medical history significant for karen nary artery disease, CABG, pre and post CABG PTCA, hypertension, hyperlipidemia, diabetes, cardiomyop athy, metastatic prostate cancer, status post AICD with syncopal episode, admitted to the medical popeye or after a syncopal episode at home. The patient initially treated on the medical floor, now is in t ransitional care unit. The patient has fluid overload. Dr. Walters gave Zaroxolyn 5 mg, started feel ing better and able to walk without getting short of breath. Now is in transitional care unit, 327, bed 1. Feels better. PHYSICAL EXAMINATION: As follows: VITAL SIGNS: Temperature afebrile, heart rate 65, blood pressure 109/58. HEENT: PERRLA. Extraocular muscles intact. NECK: Supple. No carotid bruits. No thyromegaly. CHEST: Clear to auscultation. HEART: S1, S2 regular. ABDOMEN: Soft. EXTREMITIES: Clubbing and cyanosis negative. BLOOD WORKUP: As follows: WBC 8.7, hemoglobin 9.8, hematocrit 31.3, platelet count 242. Chemistry shows sodium 135, potassium ____, chloride 95, carbon dioxide 36, anion gap of 8, BUN 42, creatinine 1.4, calcium 8.4, phosphorus 3.9, magnesium 2.6. IMPRESSION: Decompensated congestive heart failure, [id number] secondary to systolic dysfuncti on; cardiomyopathy, ischemic, status post coronary artery bypass graft, status post percutaneous blackman sluminal coronary angioplasty pre and post coronary artery bypass graft, status post automatic implan regina cardiac defibrillator, paroxysmal atrial fibrillation, renal insufficiency, fluid overload, statu s post automatic implanted cardiac defibrillator placement, paroxysmal atrial fibrillation. Since month, patient is in normal sinus. Last couple of EKGs show V-paced rhythm with underlying normal sinus, off anticoagulation because of the gastrointestinal bleed, genitourinary bleed as well. Non- ST-segment myocardial infarction in the recent admission, treated medically because of underlying com orbidity and asymptomatic. RECOMMENDATION: Continue amiodarone. Continue digoxin. Continue insulin. Continue aspirin. Hannah nue Lasix IV. Continue digoxin. We will give 2 more days of Zaroxolyn and monitor renal function. We will follow with you. Thank you, Dr. Polk, for providing us the opportunity in taking care of the patient. We will f sybil with you. Mely Chavarria MD cc: [id number] TT: 12/26/2016 13:09:49 Confirmation # [id number] Dictation # [id number] sn
[2016-12-26 13:25] LABS: CALCIUM 8.3 mg/dL (8.4-10.5); MAGNESIUM 2.8 mg/dL (1.7-2.2); POTASSIUM 4.1 mmol/L (3.6-5.0)
[2016-12-26] MEDS: metOLazone 5 MG TAB PO SCH (13:56)
[2016-12-26] MEDS: Digoxin 125 mcg (0.125 mg) Tab PO SCH (14:07)
--- NOTE | 2016-12-27 03:55 | PN ---
DATE: 12/27/2016 REASON FOR CONSULTATION: Coronary artery disease, cardiomyopathy, history of congestive heart failur e, syncope. BRIEF CLINICAL HISTORY: This is an 86-year-old male with past medical history significant for schultz ry artery disease, CABG, pre and post-CABG, PTCA, hypertension, hyperlipidemia, diabetes, cardiomyopa thy, metastatic prostate cancer, status post AICD, admitted with one episode of near syncope. The pa davidnt initially treated on medical floor and now the patient is in transitional care unit. flu id overload. Dr. Walters gave 2 doses of Zaroxolyn, today another dose of Zaroxolyn was given. The p atient now feels much less short of breath, can lie flat. PHYSICAL EXAMINATION: VITAL SIGNS: Temperature afebrile, heart rate 60, blood pressure 123/61. HEENT: PERRLA. Extraocular muscles intact. NECK: Supple. No carotid bruits. No thyromegaly. CHEST: Clear to auscultation. HEART: S1, S2 regular. ABDOMEN: Soft. EXTREMITIES: Clubbing and cyanosis negative. LABORATORY DATA: Blood workup as follows: WBC 8.7, hemoglobin 9.8, hematocrit 31.3, platelet count 242. Chemistry shows sodium 135, potassium 4.0, chloride 96, carbon dioxide 31, anion gap of 11, BUN 42, creatinine 1.4, magnesium 2.8. IMPRESSION: Decompensated congestive heart failure, acute on chronic systolic dysfunction, mitral re gurg, severe tricuspid regurgitation, status post coronary artery bypass graft, atrial fibrillation, paroxysmal, now the patient in normal sinus, status post AICD, had renal insufficiency, fluid overloa d, history of [id number] myocardial infarction, because of underlying comorbidity the patient is treated medically. The patient is asymptomatic. RECOMMENDATION: Continue amiodarone, continue digoxin, continue insulin, continue aspirin, continue Lasix, continue . We will give him today and tomorrow another dose of Zaroxolyn. We will follo w with you. Thank you, Dr. Marcus, for providing the opportunity in taking care of the patient. The patient will get blood workup on Monday. Mely Chavarria MD cc: [id number] TT: 12/27/2016 03:54:32 Confirmation # [id number] Dictation # [id number] in
[2016-12-27] MEDS: Levothyroxine 100 MCG TAB PO SCH (05:19)
[2016-12-27] MEDS: Cefpodoxime (Vantin) 200 mg Tab PO SCH (05:19)
[2016-12-27] MEDS: Pantoprazole 40 mg EC Tab PO SCH ×2 (05:33→17:30)
[2016-12-27] MEDS: Albuterol 0.083% Inhal Sol (2.5 mg/3 mL) UD IH SCH ×4 (07:20→20:08)
[2016-12-27] MEDS: Insulin Reg-MEDIUM-Coverage SC SCH ×4 (07:48→21:43)
--- NOTE | 2016-12-27 09:11 | PN ---
DATE: 12/27/2016 The patient is in the transitional care unit. He is an 86-year-old white male. He was admitted with the history of syncope, having fallen in his home. He was alert at that time, but he was evaluated in the Emergency Room, treated for syncope, evaluated. The patient is getting rehabilitation and deconditioning in the transitional care unit and treatment for congestive heart failure, diabetes and renal insufficiency. PHYSICAL EXAMINATION: VITAL SIGNS: Pulse is 64, blood pressure 121/54, respirations are 18, temperature 97.2. His O2 sat is 95% on 2 liters of oxygen. HEAD: Normocephalic. NECK: Thyroid is not enlarged. JVP is flat. HEART: Normal sinus rhythm. S1, S2 present. No murmurs are clinically heard. ABDOMEN: Soft, mildly distended. No tenderness, no masses. CENTRAL NERVOUS SYSTEM: No focal deficits are noted at this time, patient has history of peripheral neuropathy. MEDICATIONS: Consists of DuoNeb respiratory treatment. The patient is on amiodarone 200 mg daily, vitamin D. The patient is on insulin coverage for diabetes. He is also on digoxin 125 mcg daily, Lasix 40 mg IV daily. The patient is on Lipitor 10 mg daily, gabapentin 200 mg. He is also on 5 mg of prednisone, 10 mg of Singulair, 100 mcg of Synthroid. His diet is 2 gram sodium renal diabetic type and his condition is clinically stable. He is improving. He is able to ambulate and he gets daily physical therapy and we will follow up. Giselle Polk MD cc: [phone] TT: 12/27/2016 09:11:14 Confirmation # [id number] Dictation # [id number] leo MTDChelsea
[2016-12-27] MEDS: Lidocaine 5% Patch TD SCH (10:11)
[2016-12-27] MEDS: Enoxaparin 30 mg Syringe SC SCH (10:12)
[2016-12-27] MEDS: POLYETHYLENE GLYCOL 3350 17 GM/Dose PACKET PO SCH ×2 (10:12→17:30)
[2016-12-27] MEDS: metOLazone 5 MG TAB PO SCH (10:13)
[2016-12-27] MEDS: Insulin Lispro 1 UNITS/0.01 ML SC SCH ×3 (10:18→17:28)
[2016-12-27] MEDS: Digoxin 125 mcg (0.125 mg) Tab PO SCH (14:23)
[2016-12-28] MEDS: Levothyroxine 100 MCG TAB PO SCH (05:34)
[2016-12-28] MEDS: Pantoprazole 40 mg EC Tab PO SCH ×2 (05:34→16:39)
[2016-12-28] MEDS: Insulin Reg-MEDIUM-Coverage SC SCH ×4 (06:47→23:27)
[2016-12-28 07:29] LABS: CALCIUM 8.4 mg/dL (8.4-10.5); POTASSIUM 3.8 mmol/L (3.6-5.0)
--- NOTE | 2016-12-28 08:33 | PN ---
DATE: 12/26/2016 Seen and examined at the bedside earlier this afternoon. The patient is reporting soft bowel movemen ts. No diarrhea or reports of melena. Denies nausea, vomiting, or abdominal pain. No reports of ov ert GI bleed. VITAL SIGNS: Temperature is 98.9, blood pressure 107/57, pulse 70, respirations 18, and 98 nasal can nula. Sodium is 134, K is 4.1, BUN 42, creatinine is 1.4, mag is 2.8. PHYSICAL EXAMINATION: HENT: Sclerae is anicteric. NECK: Supple. CARDIAC: S1, S2. LUNGS: With decreased breath sounds, but good air entry. ABDOMEN: With bowel sounds, soft. It is nontender. ASSESSMENT: An 86-year-old male with history of metastatic prostate cancer, chronic constipation. Devika mckinnon is moving his bowels regular now. Status post fall, history of coronary artery disease, diabetes m ellitus. He has now been treated for urinary tract infection, positive kaufman pneumonia, history of gallstones. He was noted on admission to have elevated AST, ALT, which . He did have recent ultrasound done on previous admission. The CBD was 4.5 mm; was not dilated or showing any stones. PLAN: We will continue his bowel regimen. He is on MiraLax b.i.d. Spoke to the patient to titrate p er stool. He is on oral antibiotics, Vantin. He is also on Protonix 40 b.i.d., on prednisone, on L asix, and Lovenox. Monitor his electrolytes. The patient was seen, and case discussed with Dr. Bal. Claudia Armendariz HÉCTOR cc: [id number] TT: 12/26/2016 15:29:27 Confirmation # [id number] Dictation # [id number] tramaine
[2016-12-28] MEDS: Albuterol 0.083% Inhal Sol (2.5 mg/3 mL) UD IH SCH ×3 (08:58→20:28)
[2016-12-28] MEDS: Enoxaparin 30 mg Syringe SC SCH (09:28)
[2016-12-28] MEDS: Apap-Butalbital-Caffeine 325-50-40mg Tab PO PRN (09:28)
[2016-12-28] MEDS: Lidocaine 5% Patch TD SCH (09:29)
[2016-12-28] MEDS: POLYETHYLENE GLYCOL 3350 17 GM/Dose PACKET PO SCH ×2 (09:29→17:29)
[2016-12-28] MEDS: Insulin Lispro 1 UNITS/0.01 ML SC SCH (09:32)
--- NOTE | 2016-12-28 10:26 | PN ---
DATE: 12/28/2016 The patient is in the transitional care unit. He was admitted with syncope. Subsequently, he has been placed in the transitional care unit for rehabilitation, deconditioning, and treatment of congestive heart failure. PHYSICAL EXAMINATION: VITAL SIGNS: This morning, his pulse is 61, blood pressure 145/60, respirations 18, O2 sat 96%. HEAD: Normocephalic. NECK: JVP is flat. Carotid pulses are present. LUNGS: Trachea central. Breath sounds vesicular. Occasional adventitious sounds are heard. HEART: Normal sinus rhythm. S1, S2 present. ABDOMEN: Soft. Liver, spleen not palpable. No tenderness. Mild distention of the abdomen is noted. CENTRAL NERVOUS SYSTEM: The patient has unstable gait, but no focal neurological deficits excepting peripheral neuropathy. The patient is on Lasix and Zaroxolyn. The patient is on multiple medicines for congestive heart failure. The patient is on medication for diabetes, chronic lung disease, cardiac arrhythmia, and for hypothyroidism the patient takes Synthroid. The patient is on insulin for diabetes. LABORATORY DATA: The last hemoglobin is 9.8. The patient does have chronic anemia from past history of blood loss. The patient has history of prostate cancer also. He is not receiving any acute treatment for prostate cancer at this time. His overall prognosis is guarded. Condition is improving. Will continue current management. Giselle Polk MD cc: [phone] TT: 12/28/2016 09:01:29 Confirmation # [id number] Dictation # [id number] ariel [place]
--- NOTE | 2016-12-28 13:36 | PN ---
DATE: 12/28/2016 The patient in room 327, bed 1. REASON FOR CONSULTATION AND FOLLOWUP: Coronary artery disease, cardiomyopathy, history of congestive heart failure, syncope. HISTORY OF PRESENT ILLNESS: An 86-year-old male with past medical history significant for coronary a rtery disease, CABG, pre and post CABG PTCA, hypertension, hyperlipidemia, diabetes, cardiomyopathy, metastatic prostate cancer, status post AICD, admitted with one episode of near syncope. The patient initially treated on medical floor and now patient in transitional care unit for deconditioning and physical therapy. The patient sitting comfortably without any chest pain, shortness of breath, palpi tation. PHYSICAL EXAMINATION: VITAL SIGNS: Blood pressure 129/50, respirations 20, pulse 63, temperature 97.8. HEAD: Normocephalic. EYES: Pupils normal. Conjunctivae slightly pale. NECK: JVP low. Carotid equal. THORAX: AP diameter normal. LUNGS: Clear. CARDIOVASCULAR: S1, S2, systolic murmur, no rub. ABDOMEN: Soft, no tenderness, no organomegaly. Bowel sounds normal. EXTREMITIES: No clubbing, no cyanosis. LABORATORY DATA: WBC 8.7, hemoglobin 9.8, hematocrit 31.3, platelet 242. Sodium 132, potassium 3.8, BUN 37, creatinine 1.4, sugar 145, calcium 8.4. DIAGNOSES: Decompensating congestive heart failure, [id number] left ventricular systolic dysfu nction, mitral regurgitation, severe tricuspid regurgitation, status post coronary bypass surgery, st atus post angioplasty, stent insertion, atrial fibrillation which is paroxysmal and now patient maint aining sinus rhythm, status post automatic implanted cardiac defibrillator, renal insufficiency, flui d overload, history of non-ST segment elevation myocardial infarction. RECOMMENDATION AND PLAN: The patient has not done cardiac catheterization this time because of assoc iated comorbidities and the patient had no chest pain, so we treated him medically and he is stable. We are continuing on albuterol hand nebulizer therapy, amiodarone 200 mg p.o. daily, aspirin 81 mg p .o. daily, furosemide 40 mg IV daily, Lipitor 10 mg daily, Lovenox 30 mg subQ daily, Neurontin 200 mg p.o. at bedtime, Singulair 10 mg at bedtime, Synthroid 100 mcg p.o. daily, prednisone 5 mg daily, in sulin lispro 20 units subQ t.i.d. We will continue the same medication and we will follow with you jonathan hurley. Continue physical therapy. Mely Walters MD cc: [phone] TT: 12/28/2016 13:35:50 Confirmation # [id number] Dictation # [id number] sn
[2016-12-28] MEDS: Digoxin 125 mcg (0.125 mg) Tab PO SCH (13:41)
--- NOTE | 2016-12-28 21:22 | PN ---
DATE: 12/28/2016 SUBJECTIVE: This patient was seen and evaluated earlier. The patient denies any abdominal complaint s. Has normal bowel movements. PHYSICAL EXAMINATION: VITAL SIGNS: Afebrile, blood pressure 132/67, pulse 64. HEENT: Atraumatic, anicteric. NECK: Supple. HEART: S1, S2 heard. LUNGS: Bilateral air entry present. ABDOMEN: Soft. There is no tenderness. LABORATORY DATA: Creatinine 1.4, BUN 37. IMPRESSION AND PLAN: This is an 86-year-old patient with metastatic prostate cancer, chronic constip ation, had diffuse abdominal discomfort before, history of recurrent urinary tract infections in the past, clinically is improving on MiraLax. The patient is on Protonix, history of gallstones, asympto matic. We will continue the present management. Thank you very much for allowing us to participate in the care of the patient. Fredi Bal MD cc: [phone] TT: 12/28/2016 21:21:52 Confirmation # [id number] Dictation # [id number] carlene
[2016-12-29] MEDS: Insulin Reg-MEDIUM-Coverage SC SCH ×4 (06:53→22:09)
[2016-12-29] MEDS: Levothyroxine 100 MCG TAB PO SCH (07:00)
[2016-12-29] MEDS: Pantoprazole 40 mg EC Tab PO SCH ×2 (07:00→17:36)
[2016-12-29] MEDS: Albuterol 0.083% Inhal Sol (2.5 mg/3 mL) UD IH SCH ×5 (07:30→20:18)
--- NOTE | 2016-12-29 08:03 | CP.PCM.PN ---
Subjective - Date & Time of Evaluation Date of Evaluation: 12/29/16 Time of Evaluation: 07:45 - Subjective Subjective: Patient is seen this morning in room 318 bed 1. Objective - Vital Signs/Intake and Output Vital Signs (last 24 hours): Temp Pulse Resp BP Pulse Ox 97.9 F 60 20 120/46 L 92 L 12/29/16 06:00 12/29/16 06:00 12/29/16 06:00 12/29/16 06:00 12/28/16 16:00 Intake and Output: 12/29/16 12/29/16 06:59 18:59 Output Total 1350 Balance -1350 - Medications Medications: Current Medications Acetaminophen/Butalbital/Caffeine (Fioricet) 1 tab PO Q4H PRN; Protocol PRN Reason: Headache Last Admin: 12/28/16 09:28 Dose: 1 tab Albuterol Sulfate (Albuterol 0.083% Inhal Raissa (2.5 Mg/3 Ml) Ud) 2.5 mg IH QID JEANA PRN Reason: Protocol Last Admin: 12/29/16 07:30 Dose: 2.5 mg Amiodarone HCl (Cordarone) 200 mg PO DAILY JEANA PRN Reason: Protocol Last Admin: 12/28/16 09:28 Dose: 200 mg Aspirin (Ecotrin) 81 mg PO 0800 JEANA PRN Reason: Protocol Last Admin: 12/29/16 07:00 Dose: 81 mg Atorvastatin Calcium (Lipitor) 10 mg PO DIN JEANA PRN Reason: Protocol Last Admin: 12/28/16 16:39 Dose: 10 mg Calcium Acetate (Phoslo) 667 mg PO DAILY JEANA PRN Reason: Protocol Last Admin: 12/28/16 09:27 Dose: 667 mg Digoxin (Lanoxin) 0.125 mg PO 1400 JEANA PRN Reason: Protocol Last Admin: 12/28/16 13:41 Dose: 0.125 mg Doxercalciferol (Hectorol) 0.5 mcg PO DAILY JEANA PRN Reason: Protocol Last Admin: 12/28/16 09:28 Dose: 0.5 mcg Enoxaparin Sodium (Lovenox) 30 mg SC DAILY JEANA PRN Reason: Protocol Last Admin: 12/28/16 09:28 Dose: 30 mg Furosemide (Lasix) 40 mg IVP DAILY JEANA PRN Reason: Protocol Last Admin: 12/28/16 09:35 Dose: 40 mg Gabapentin (Neurontin) 200 mg PO HS JEANA PRN Reason: Protocol Last Admin: 12/28/16 23:34 Dose: 200 mg Insulin Human Lispro (Humalog) 20 units SC TID JEANA PRN Reason: Protocol Last Admin: 12/28/16 09:32 Dose: 20 units Insulin Human Regular (Humulin R Med) 0 units SC ACHS JEANA PRN Reason: Protocol Last Admin: 12/29/16 06:53 Dose: 5 units Lactic Acid (Lac-Hydrin 12% Lotion (225 G)) 0 gm TOP BID PRN PRN Reason: DRY SKI N Levothyroxine Sodium (Synthroid) 100 mcg PO 0600 JEANA PRN Reason: Protocol Last Admin: 12/29/16 07:00 Dose: 100 mcg Lidocaine (Lidoderm) 1 ea TD DAILY [facility] Last Admin: 12/28/16 09:29 Dose: 1 ea Montelukast Sodium (Singulair) 10 mg PO DAILY JEANA PRN Reason: Protocol Last Admin: 12/28/16 09:27 Dose: 10 mg Pantoprazole Sodium (Protonix Ec Tab) 40 mg PO 0630,1630 JEANA PRN Reason: Protocol Last Admin: 12/29/16 07:00 Dose: 40 mg Polyethylene Glycol (Miralax) 17 gm PO BID JEANA PRN Reason: Protocol Last Admin: 12/28/16 17:29 Dose: 17 gm Prednisone (Prednisone Tab) 5 mg PO DAILY JEANA PRN Reason: Protocol Last Admin: 12/28/16 09:27 Dose: 5 mg - Labs Labs: 12/25/16 08:44 12/28/16 06:30 - Constitutional Appears: No Acute Distress - Head Exam Head Exam: ATRAUMATIC, NORMOCEPHALIC - Respiratory Exam Respiratory Exam: NORMAL BREATHING PATTERN - Cardiovascular Exam Cardiovascular Exam: +S1, +S2 - GI/Abdominal Exam GI & Abdominal Exam: Soft, Normal Bowel Sounds. absent: Tenderness - Extremities Exam Extremities Exam: Pedal Edema - Neurological Exam Neurological Exam: Alert, Awake, Oriented x3 Assessment and Plan - Assessment and Plan (Free Text) Assessment: s/p fall UTI COPD Chronic heart failure hypothyroidism cardiac arrhythmia DMII Cervicalgia Plan: Patient is feeling better, but he still has some lower extremity edema and elevated JVP. continue Lasix IV. continue PT Lidoderm patch for back pain
--- NOTE | 2016-12-29 11:25 | PN ---
DATE: 12/29/2016 The patient is in room 318, bed 1. REASON FOR CONSULTATION AND FOLLOWUP: Coronary artery disease, cardiomyopathy, history of congestive heart failure, syncope. HISTORY OF PRESENT ILLNESS: An 86-year-old male with past medical history significant for coronary a rtery disease, CABG, pre- and post CABG patient had PTCA, hypertension, hyperlipidemia, diabetes, car diomyopathy, metastatic prostate cancer, status post AICD insertion, admitted with 1 episode of near syncope. The patient was treated on medical floor. Now is in transitional care unit for decondition ing and physical therapy. Denies any chest pain. He gets shortness of breath on exertion, which is also improving. Denies any palpitation. PHYSICAL EXAMINATION: VITAL SIGNS: Blood pressure 120/46, respirations 20, pulse 60, temperature 97.9. HEENT: Head is normocephalic. Eyes: Pupils normal. Conjunctivae slightly pale. NECK: JVP low. LUNGS: Clear. CARDIOVASCULAR: S1, S2. ABDOMEN: Soft, nontender, no organomegaly. Bowel sounds normal. EXTREMITIES: No clubbing, no cyanosis. LABORATORY DATA: Shows WBC 8.7, hemoglobin 9.8, hematocrit 31.3, platelet 242. Sodium 132, potassiu m 3.8, BUN 37, creatinine 1.4, random sugar 291. DIAGNOSES: Decompensated congestive heart failure, acute on chronic; left ventricle systolic dysfunc tion, mitral regurgitation, severe tricuspid regurgitation; status post coronary artery bypass surger y, status post angioplasty and stent insertion; atrial fibrillation which is paroxysmal and now jalen ent has been maintaining sinus rhythm, status post automatic implantable cardioverter-defibrillator i nsertion; renal insufficiency, fluid overload, history of [id number]-[id number] elevation myocardial infarct ion, anemia. PLAN: The patient is on furosemide 40 mg IV daily to help with diuresis. His shortness of breath buckner s been improving. Getting albuterol hand nebulizer therapy, amiodarone 200 daily, aspirin 81 mg sarath y, digoxin 0.125 daily, Lipitor 10 mg p.o. daily, Lovenox 30 mg subQ daily, Neurontin 200 mg at bedti ma, PhosLo 667 mg p.o. daily, Protonix 40 daily, Singulair 10 mg daily, Synthroid 100 mcg p.o. daily, insulin lispro 20 units subQ t.i.d., prednisone 5 mg daily. Will continue present therapy. Will fo llow with you. Mely Walters MD cc: [id number] TT: 12/29/2016 11:24:34 Confirmation # [id number] Dictation # [id number] mn
[2016-12-29] MEDS: Insulin Lispro 1 UNITS/0.01 ML SC SCH ×3 (11:31→22:10)
[2016-12-29] MEDS: Lidocaine 5% Patch TD SCH (11:34)
[2016-12-29] MEDS: POLYETHYLENE GLYCOL 3350 17 GM/Dose PACKET PO SCH ×2 (11:35→17:37)
[2016-12-29] MEDS: Enoxaparin 30 mg Syringe SC SCH (11:35)
[2016-12-29] MEDS: Digoxin 125 mcg (0.125 mg) Tab PO SCH (15:08)
[2016-12-30] MEDS: Levothyroxine 100 MCG TAB PO SCH (06:07)
[2016-12-30] MEDS: Pantoprazole 40 mg EC Tab PO SCH ×2 (06:16→17:17)
[2016-12-30] MEDS: Insulin Reg-MEDIUM-Coverage SC SCH ×4 (07:15→22:11)
[2016-12-30] MEDS: Albuterol 0.083% Inhal Sol (2.5 mg/3 mL) UD IH SCH ×5 (07:39→22:00)
--- NOTE | 2016-12-30 08:12 | CP.PCM.PN ---
Subjective - Date & Time of Evaluation Date of Evaluation: 12/30/16 Time of Evaluation: 07:55 - Subjective Subjective: Patient is seen this morning in room 318 bed 1. He is feeling better. Objective - Vital Signs/Intake and Output Vital Signs (last 24 hours): Temp Pulse Resp BP Pulse Ox 97.8 F 61 16 128/51 L 91 L 12/29/16 20:00 12/29/16 20:00 12/29/16 20:00 12/29/16 20:00 12/29/16 15:56 Intake and Output: 12/30/16 12/30/16 06:59 18:59 Output Total 2200 Balance -2200 - Medications Medications: Current Medications Acetaminophen/Butalbital/Caffeine (Fioricet) 1 tab PO Q4H PRN; Protocol PRN Reason: Headache Last Admin: 12/28/16 09:28 Dose: 1 tab Albuterol Sulfate (Albuterol 0.083% Inhal Raissa (2.5 Mg/3 Ml) Ud) 2.5 mg IH QID JEANA PRN Reason: Protocol Last Admin: 12/30/16 07:39 Dose: 2.5 mg Amiodarone HCl (Cordarone) 200 mg PO DAILY JEANA PRN Reason: Protocol Last Admin: 12/29/16 11:32 Dose: 200 mg Aspirin (Ecotrin) 81 mg PO 0800 JEANA PRN Reason: Protocol Last Admin: 12/30/16 08:07 Dose: 81 mg Atorvastatin Calcium (Lipitor) 10 mg PO DIN JEANA PRN Reason: Protocol Last Admin: 12/29/16 17:36 Dose: 10 mg Calcium Acetate (Phoslo) 667 mg PO DAILY JEANA PRN Reason: Protocol Last Admin: 12/29/16 11:35 Dose: 667 mg Digoxin (Lanoxin) 0.125 mg PO 1400 JEANA PRN Reason: Protocol Last Admin: 12/29/16 15:08 Dose: 0.125 mg Doxercalciferol (Hectorol) 0.5 mcg PO DAILY JEANA PRN Reason: Protocol Last Admin: 12/29/16 11:33 Dose: 0.5 mcg Enoxaparin Sodium (Lovenox) 30 mg SC DAILY JEANA PRN Reason: Protocol Last Admin: 12/29/16 11:35 Dose: 30 mg Furosemide (Lasix) 40 mg IVP DAILY JEANA PRN Reason: Protocol Last Admin: 12/29/16 11:33 Dose: 40 mg Gabapentin (Neurontin) 200 mg PO HS JEANA PRN Reason: Protocol Last Admin: 12/29/16 22:07 Dose: 200 mg Insulin Human Lispro (Humalog) 20 units SC TID JEANA PRN Reason: Protocol Last Admin: 12/29/16 22:10 Dose: Not Given Insulin Human Regular (Humulin R Med) 0 units SC ACHS JEANA PRN Reason: Protocol Last Admin: 12/30/16 07:15 Dose: 3 units Lactic Acid (Lac-Hydrin 12% Lotion (225 G)) 0 gm TOP BID PRN PRN Reason: DRY SKI N Levothyroxine Sodium (Synthroid) 100 mcg PO 0600 JEANA PRN Reason: Protocol Last Admin: 12/30/16 06:07 Dose: 100 mcg Lidocaine (Lidoderm) 1 ea TD DAILY [facility] Last Admin: 12/29/16 11:34 Dose: 1 ea Montelukast Sodium (Singulair) 10 mg PO DAILY JEANA PRN Reason: Protocol Last Admin: 12/29/16 11:36 Dose: 10 mg Pantoprazole Sodium (Protonix Ec Tab) 40 mg PO 0630,1630 JEANA PRN Reason: Protocol Last Admin: 12/30/16 06:16 Dose: 40 mg Polyethylene Glycol (Miralax) 17 gm PO BID JEANA PRN Reason: Protocol Last Admin: 12/29/16 17:37 Dose: 17 gm Prednisone (Prednisone Tab) 5 mg PO DAILY JEANA PRN Reason: Protocol Last Admin: 12/29/16 11:36 Dose: 5 mg - Labs Labs: 12/25/16 08:44 12/28/16 06:30 - Constitutional Appears: No Acute Distress - Head Exam Head Exam: ATRAUMATIC, NORMOCEPHALIC - Respiratory Exam Respiratory Exam: Decreased Breath Sounds, NORMAL BREATHING PATTERN - Cardiovascular Exam Cardiovascular Exam: +S1, +S2 - GI/Abdominal Exam GI & Abdominal Exam: Soft, Normal Bowel Sounds. absent: Tenderness - Neurological Exam Neurological Exam: Alert, Awake, Oriented x3 Assessment and Plan - Assessment and Plan (Free Text) Assessment: s/p fall Acute on chronic systolic heart failure HTN COPD metastatic prostate cancer hypothyroidism cardiac arrhythmia Plan: Patient is feeling better. Less SOB on walking and lower extremity edema has come down. check CBC, CMP, serum iron and ferritin levels today continue PT discharge in AM
[2016-12-30 08:42] LABS: ADD MANUAL DIFF? NO
[2016-12-30 09:00] LABS: ALB/GLOB RATIO 1.2 (1.1-1.8); BILIRUBIN,TOTAL 0.6 mg/dL (0.2-1.3); CALCIUM 8.4 mg/dL (8.4-10.5); POTASSIUM 4.1 mmol/L (3.6-5.0)
[2016-12-30 09:02] LABS: BASO # 0.02 K/mm3 (0.0-2.0); BASO % 0.2 % (0.0-3.0); EOS # 0.2 (0.0-0.7); EOS % 1.5 % (1.5-5.0); GRAN # 8.56 (1.4-6.5); GRAN % 74.7 % (50.0-68.0); HEMATOCRIT 29.8 % (42.0-52.0); LYMPH # 1.8 (1.2-3.4); LYMPH % 15.4 % (22.0-35.0); MEAN CELL VOLUME 87.9 fL (80.0-105.0); MEAN CORPUSCULAR HEMOGLOBIN 27.7 pg (25.0-35.0); MEAN CORPUSCULAR HGB CONC 31.5 g/dl (31.0-37.0); MEAN PLATELET VOLUME 9.8 fl (7.0-11.0); MONO # 0.9 (0.1-0.6); MONO % 8.2 % (1.0-6.0); PLATELET COUNT 319 10^3/uL (120.0-450.0); RED CELL DISTRIBUTION WIDTH 16.2 % (11.5-14.5); WHITE BLOOD COUNT 11.5 10^3/ul (4.5-11.0)
[2016-12-30 09:18] LABS: IRON 19 ug/dL (45-180)
[2016-12-30] MEDS: Insulin Lispro 1 UNITS/0.01 ML SC SCH ×3 (09:32→17:13)
[2016-12-30] MEDS: Enoxaparin 30 mg Syringe SC SCH (09:34)
[2016-12-30] MEDS: Lidocaine 5% Patch TD SCH (09:34)
[2016-12-30] MEDS: POLYETHYLENE GLYCOL 3350 17 GM/Dose PACKET PO SCH ×2 (09:34→17:16)
[2016-12-30 09:42] VITALS: BP 124/61; PULSE 66
--- NOTE | 2016-12-30 10:32 | PN ---
DATE: 12/30/2016 REASON FOR CONSULTATION AND FOLLOWUP: Coronary artery disease, cardiomyopathy, history of congestive heart failure, syncope. BRIEF CLINICAL HISTORY: An 86-year-old male with a past medical history significant for coronary art maricarmen disease, CABG, pre and post CABG PTCA, hypertension, hyperlipidemia, chronic renal insufficiency, status post AICD, had 1 episode of near syncope. The patient was initially treated medically. For now, patient is in the transitional care unit for the continuity of care. Denies any chest pain, blayne rtness of breath, any palpitation. The patient is also given IV Lasix and Zaroxolyn for decompensate d congestive heart failure. Neck veins are not engorged as before. Swelling went down in the legs. Edema of the legs has subsided. PHYSICAL EXAMINATION: VITAL SIGNS: Temperature afebrile, heart rate , blood pressure 128/51. HEENT: PERRLA. Extraocular muscles intact. NECK: Supple. No carotid bruits. No thyromegaly. CHEST: Clear to auscultation. HEART: S1 and S2 regular. ABDOMEN: Soft. EXTREMITIES: Clubbing, cyanosis negative. BLOOD WORKUP: WBC 11.5, hemoglobin 9.4, hematocrit 29.8, platelet count 319. Chemistry shows sodium 130, potassium 4. , chloride 90, carbon dioxide 33, anion gap of 9, BUN , creatinine 1.4. IMPRESSION: Decompensated congestive heart failure, acute on chronic, secondary to systolic dysfunct ion, renal insufficiency, acute on chronic secondary to systolic dysfunction, mitral regurgitation, _ ____ tricuspid regurgitation, status post coronary artery bypass surgery, status post angioplasty bef ore and after, paroxysmal atrial fibrillation, now patient is maintaining normal sinus, status post a utomatic implantable cardioverter-defibrillator, fluid overload, non-ST segment myocardial infarction in the past in the previous admission and decided to treat medically. RECOMMENDATION: Continue Lasix, continue low dose Lovenox 30 for deep venous thrombosis prophylaxis. Continue PhosLo. Continue Synthroid supplementation. Continue insulin. Continue rehab. The jalen ent has an indwelling Avendano catheter. History of prostate cancer with metastasis. In view of comorb idities and renal insufficiency, cardiac catheterization not because of non-ST on the previous admission. Medical treatment is recommended. The patient is asymptomatic. We will follow with you. Thank you, Dr. Polk, for providing us the opportunity in taking care of the patient. Mely Chavarria MD cc: [id number] TT: 12/30/2016 10:31:26 Confirmation # [id number] Dictation # [id number] en
[2016-12-30 11:03] VITALS: RESP 18; TEMP 97; O2SAT 99
[2016-12-30] MEDS: Digoxin 125 mcg (0.125 mg) Tab PO SCH (13:10)
[2016-12-30 13:11] VITALS: PULSE 78
--- NOTE | 2016-12-30 13:25 | PN ---
DATE: 12/30/2016 Seen and examined at the bedside in TCU. The patient reports he is feeling much better. He is movin g his bowels regular, does not notice any blood. The abdominal pain is much improved. Occasionally, he may still have some. He does report that he has that chronic left lower abdominal pain, but it i s much improved. VITAL SIGNS: Temperature is 97, blood pressure 124/61, pulse 66, respirations 18, 99% on nasal cannu la. LABORATORIES: WBC is 11.5, H and H is 9.4 and 29.8, platelets of 319. Sodium is 130, K 4.1, his BUN is 37, creatinine is 1.4. Iron is 19, TIBC is 249, percent saturation, iron saturation is 8. His t otal bilirubin is 0.6, AST 64, ALT 60, alkaline phosphatase is 108. PHYSICAL EXAMINATION: HEENT: Sclerae anicteric. NECK: Supple. CARDIAC: S1, S2. LUNGS: With decreased breath sounds, but no rales or wheeze. ABDOMEN: With bowel sounds, soft, nontender on palpation. ASSESSMENT: Status post fall. He has acute on chronic heart failure. He has metastatic prostate ca ncer, chronic constipation, which he is moving his bowels regular, anemia, looks like he has iron de ficiency anemia and he is noted to have elevated AST, ALT, which may be multifactorial, could be rela regina to congestion, medications. He does have history of cholelithiasis. He had abdominal ultrasound on 11/28/2016. The common bile duct measured 4.5, no dilatation or stones seen. PLAN: We will continue to follow closely the LFTs, which is much improved. Continue his bowel regim en. He is on MiraLax b.i.d., but patient is taking says once a day. Monitor stools. Continue PPI. He is on Protonix 40 b.i.d. He is also on Lasix and prednisone and aspirin. Possible discharge myles ow. The patient was seen and case discussed with Dr. Bal. Claudia ANAYA cc: [id number] TT: 12/30/2016 13:24:40 Confirmation # [id number] Dictation # [id number] en
[2016-12-31] MEDS: Apap-Butalbital-Caffeine 325-50-40mg Tab PO PRN (03:22)
[2016-12-31] MEDS: Levothyroxine 100 MCG TAB PO SCH (06:07)
[2016-12-31] MEDS: Pantoprazole 40 mg EC Tab PO SCH (06:07)
[2016-12-31] MEDS: Insulin Reg-MEDIUM-Coverage SC SCH (06:44)
[2016-12-31] MEDS: Albuterol 0.083% Inhal Sol (2.5 mg/3 mL) UD IH SCH (07:20)
--- NOTE | 2016-12-31 07:45 | CP.PCM.PN ---
Subjective - Date & Time of Evaluation Date of Evaluation: 12/31/16 Time of Evaluation: 07:25 - Subjective Subjective: Patient is seen this morning in room 318 bed 1. He is feeling much better. Objective - Vital Signs/Intake and Output Vital Signs (last 24 hours): Temp Pulse Resp BP Pulse Ox 97 F L 66 18 124/61 99 12/30/16 10:00 12/30/16 10:00 12/30/16 20:00 12/30/16 10:00 12/30/16 20:00 - Medications Medications: Current Medications Acetaminophen/Butalbital/Caffeine (Fioricet) 1 tab PO Q4H PRN; Protocol PRN Reason: Headache Last Admin: 12/31/16 03:22 Dose: 1 tab Albuterol Sulfate (Albuterol 0.083% Inhal Raissa (2.5 Mg/3 Ml) Ud) 2.5 mg IH QID JEANA PRN Reason: Protocol Last Admin: 12/31/16 07:20 Dose: 2.5 mg Amiodarone HCl (Cordarone) 200 mg PO DAILY JEANA PRN Reason: Protocol Last Admin: 12/30/16 09:33 Dose: 200 mg Aspirin (Ecotrin) 81 mg PO 0800 JEANA PRN Reason: Protocol Last Admin: 12/30/16 08:07 Dose: 81 mg Atorvastatin Calcium (Lipitor) 10 mg PO DIN JEANA PRN Reason: Protocol Last Admin: 12/30/16 17:16 Dose: 10 mg Calcium Acetate (Phoslo) 667 mg PO DAILY JEANA PRN Reason: Protocol Last Admin: 12/30/16 09:35 Dose: 667 mg Digoxin (Lanoxin) 0.125 mg PO 1400 JEANA PRN Reason: Protocol Last Admin: 12/30/16 13:10 Dose: 0.125 mg Doxercalciferol (Hectorol) 0.5 mcg PO DAILY JEANA PRN Reason: Protocol Last Admin: 12/30/16 09:33 Dose: 0.5 mcg Furosemide (Lasix) 40 mg IVP DAILY JEANA PRN Reason: Protocol Last Admin: 12/30/16 09:38 Dose: 40 mg Gabapentin (Neurontin) 200 mg PO HS JEANA PRN Reason: Protocol Last Admin: 12/30/16 21:09 Dose: 200 mg Insulin Human Lispro (Humalog) 20 units SC TID JEANA PRN Reason: Protocol Last Admin: 12/30/16 17:13 Dose: 20 units Insulin Human Regular (Humulin R Med) 0 units SC ACHS JEANA PRN Reason: Protocol Last Admin: 12/31/16 06:44 Dose: 3 units Lactic Acid (Lac-Hydrin 12% Lotion (225 G)) 0 gm TOP BID PRN PRN Reason: DRY SKI N Levothyroxine Sodium (Synthroid) 100 mcg PO 0600 JEANA PRN Reason: Protocol Last Admin: 12/31/16 06:07 Dose: 100 mcg Lidocaine (Lidoderm) 1 ea TD DAILY JEANA Last Admin: 12/30/16 09:34 Dose: 1 ea Montelukast Sodium (Singulair) 10 mg PO DAILY JEANA PRN Reason: Protocol Last Admin: 12/30/16 09:35 Dose: 10 mg Pantoprazole Sodium (Protonix Ec Tab) 40 mg PO 0630,1630 JEANA PRN Reason: Protocol Last Admin: 12/31/16 06:07 Dose: 40 mg Polyethylene Glycol (Miralax) 17 gm PO BID JEANA PRN Reason: Protocol Last Admin: 12/30/16 17:16 Dose: 17 gm Prednisone (Prednisone Tab) 5 mg PO DAILY JEANA PRN Reason: Protocol Last Admin: 12/30/16 09:35 Dose: 5 mg - Labs Labs: 12/30/16 08:40 12/30/16 08:40 - Constitutional Appears: No Acute Distress - Head Exam Head Exam: ATRAUMATIC, NORMOCEPHALIC - Respiratory Exam Respiratory Exam: Clear to Ausculation Bilateral, NORMAL BREATHING PATTERN - Cardiovascular Exam Cardiovascular Exam: +S1, +S2 - GI/Abdominal Exam GI & Abdominal Exam: Soft, Normal Bowel Sounds. absent: Tenderness - Extremities Exam Extremities Exam: Pedal Edema - Neurological Exam Neurological Exam: Alert, Awake, Oriented x3 Assessment and Plan - Assessment and Plan (Free Text) Assessment: s/p Fall Syncope HTN COPD Chronic heart failure metastatic prostate CA hypothyroidism DMII Plan: Patient is improved. He will be discharged home today. He will continue his home medications and followup in the office in 10 days. Patient has been referred to the [facility]ial for medication teaching and physical therapy for deconditioning and gait training.
[2016-12-31] MEDS: Insulin Lispro 1 UNITS/0.01 ML SC SCH (09:28)
[2016-12-31] MEDS: Lidocaine 5% Patch TD SCH (10:23)
[2016-12-31] MEDS: POLYETHYLENE GLYCOL 3350 17 GM/Dose PACKET PO SCH (10:24)
== END 2016-12-31 13:53 | disposition home or self-care (01) | DRG 193 ==
LOC: TRCU 16:16
PROVIDERS: ADMIT Internal Medicine; ATTEND Internal Medicine
PROC: F07Z9FZ Gait Training/Functional Ambulation Treatment using Assistive, Adaptive, Supportive or Protective Equipment (ICD-10-PCS; principal; 2016-12-22)
PROC: F07M6ZZ Therapeutic Exercise Treatment of Musculoskeletal System - Whole Body (ICD-10-PCS; 2016-12-22)
PROC: F08Z1ZZ Dressing Techniques Treatment (ICD-10-PCS; 2016-12-22)
PROC: F08Z2ZZ Grooming/Personal Hygiene Treatment (ICD-10-PCS; 2016-12-22)
PROC: F08Z4ZZ Home Management Treatment (ICD-10-PCS; 2016-12-22)
DX: J18.9 Pneumonia, unspecified organism (principal); I50.23 Acute on chronic systolic (congestive) heart failure; C77.9 Secondary and unspecified malignant neoplasm of lymph node, unspecified; C79.51 Secondary malignant neoplasm of bone; J44.0 Chronic obstructive pulmonary disease with (acute) lower respiratory infection; K92.2 Gastrointestinal hemorrhage, unspecified; I42.9 Cardiomyopathy, unspecified; E11.22 Type 2 diabetes mellitus with diabetic chronic kidney disease; I48.0 Paroxysmal atrial fibrillation; N39.0 Urinary tract infection, site not specified; C61 Malignant neoplasm of prostate; E11.9 Type 2 diabetes mellitus without complications; D64.9 Anemia, unspecified; E03.9 Hypothyroidism, unspecified; E78.5 Hyperlipidemia, unspecified; K59.09 Other constipation; M19.90 Unspecified osteoarthritis, unspecified site; N18.9 Chronic kidney disease, unspecified; I12.9 Hypertensive chronic kidney disease with stage 1 through stage 4 chronic kidney disease, or unspecified chronic kidney disease; I08.3 Combined rheumatic disorders of mitral, aortic and tricuspid valves; I25.2 Old myocardial infarction; I25.10 Atherosclerotic heart disease of native coronary artery without angina pectoris; I25.5 Ischemic cardiomyopathy; I27.2 Other secondary pulmonary hypertension; Z85.46 Personal history of malignant neoplasm of prostate; Z86.718 Personal history of other venous thrombosis and embolism; Z87.440 Personal history of urinary (tract) infections; Z79.899 Other long term (current) drug therapy; Z88.1 Allergy status to other antibiotic agents; Z91.041 Radiographic dye allergy status; Z95.0 Presence of cardiac pacemaker; Z95.1 Presence of aortocoronary bypass graft; Z95.810 Presence of automatic (implantable) cardiac defibrillator; Z98.61 Coronary angioplasty status; E11.40 Type 2 diabetes mellitus with diabetic neuropathy, unspecified; B96.1 Klebsiella pneumoniae [K. pneumoniae] as the cause of diseases classified elsewhere; R53.81 Other malaise; M54.2 Cervicalgia

== ENCOUNTER 2017-03-16 18:32 | Inpatient (IN) | payer MEDICARE ==
[2017-03-16 18:43] VITALS: BMI 23.9
--- NOTE | 2017-03-16 18:59 | ED PDOC ---
Arrival/HPI - General Chief Complaint: Male Genitourinary Time Seen by Provider: 03/16/17 18:42 Historian: Patient, Family (Niece) - History of Present Illness Time/Duration: 1 week Symptom Onset: Gradual Symptom Course: Worsening Severity Level: Moderate Associated Symptoms (Text): 03/16/17 18:57 Patient has a chronic Avendano catheter for the last 4 years. It was last changed one week ago. He complains of hematuria with clots for the last week which has been worsening. There is some suprapubic abdominal discomfort. No nausea vomiting or diarrhea. No fever or chills. No back pain. He had a pacemaker replaced 5 days ago. He was sent to the emergency department by his PMD for evaluation and treatment and admission. 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 Past Medical History - Infectious Disease Hx of Infectious Diseases: None - Tetanus Immunization Tetanus Immunization: Unknown - Cardiac Hx Cardiac Disorders: Yes Hx Congestive Heart Failure: Yes Hx Pacemaker: Yes - Pulmonary Hx Respiratory Disorders: Yes Hx Chronic Obstructive Pulmonary Disease (COPD): Yes - Neurological Hx Neurological Disorder: No - HEENT Hx HEENT Disorder: Yes Hx Cataracts: Yes (WITH SURGERY) - Renal Hx Renal Disorder: Yes Hx Renal Failure: Yes - Endocrine/Metabolic Hx Endocrine Disorders: Yes Hx Diabetes Mellitus Type 1: Yes Hx Hypothyroidism: Yes - Hematological/Oncological Hx Blood Disorders: Yes Hx Cancer: Yes (prostate CA) - Integumentary Hx Dermatological Disorder: Yes - Musculoskeletal/Rheumatological Hx Musculoskeletal Disorders: Yes Hx Falls: Yes Hx Unsteady Gait: Yes (uses cane) - Gastrointestinal Hx Gastrointestinal Disorders: Yes Hx Constipation: Yes - Genitourinary/Gynecological Hx Genitourinary Disorders: Yes Hx Reproductive Disorders: No - Psychiatric Hx Psychophysiologic Disorder: No Hx Substance Use: No - Surgical History Hx Cardiac Catheterization: Yes (w/ 4 stents) Hx Coronary Artery Bypass Graft: Yes Hx Coronary Stent: Yes (X4) Hx Open Heart Surgery: Yes Other/Comment: PACEMAKER/AICD,MULTIPLE ANGIOPLASTIES,CATARACT SURGERY,CARDIAC STENTS X 4,QUADRUPLE BYPASS - Anesthesia Hx Anesthesia: Yes Hx Anesthesia Reactions: No Hx Malignant Hyperthermia: No - Suicidal Assessment Feels Threatened In Home Enviroment: No Family/Social History - Physician Review Nursing Documentation Reviewed: Yes Family/Social History: Unknown Family HX Smoking Status: Never Smoked Hx Alcohol Use: No Hx Substance Use: No Hx Substance Use Treatment: No Allergies/Home Meds Allergies/Adverse Reactions: Allergies Iodinated Contrast Media - Oral and Allergy (Verified 12/21/16 20:06) ANAPHYLAXIS levofloxacin [From Levaquin] Allergy (Verified 12/21/16 20:06) ANAPHYLAXIS Home Medications: Home Meds Medication Instructions Recorded Confirmed Amiodarone HCl 200 mg PO DAILY 06/14/12 03/16/17 Montelukast [Singulair] 10 mg PO DAILY 06/14/12 03/16/17 Pantoprazole [Protonix EC Tab] 40 mg PO DAILY 05/30/14 03/16/17 Insulin Human NPH/Reg [HumuLIN 20 units SC ACHS 04/09/16 03/16/17 70/30 (NPH/Reg)] Aspirin [Ecotrin] 81 mg PO DAILY 07/25/16 03/16/17 Calcium Acetate [Phoslo] 667 mg PO DAILY 07/25/16 03/16/17 Digoxin [Lanoxin] 0.125 mg PO DAILY 07/25/16 03/16/17 Furosemide [Lasix] 40 mg PO BID 07/25/16 03/16/17 Levothyroxine [Synthroid] 100 mcg PO DAILY 07/25/16 03/16/17 Simvastatin 20 mg PO DAILY 07/25/16 03/16/17 predniSONE [predniSONE Tab] 10 mg PO DAILY 07/25/16 03/16/17 Albuterol 0.083% [Albuterol 0.083% 3 ml IH QID 11/19/16 03/16/17 Inhal Raissa (2.5 mg/3 ml) UD] Abiraterone Acetate [Zytiga] 250 mg PO MWF 03/16/17 03/16/17 Review of Systems - Physician Review All systems were reviewed & negative as marked: Yes - Review of Systems Constitutional: Fatigue. absent: Fevers Respiratory: Normal Cardiovascular: Normal Gastrointestinal: Abdominal Pain. absent: Constipation, Diarrhea, Nausea, Vomiting Genitourinary Male: Hematuria Musculoskeletal: absent: Back Pain Neurological: absent: Headache, Dizziness Physical Exam Vital Signs Temp Pulse Resp BP Pulse Ox 03/16/17 18:42 98.5 F 68 16 135/48 L 99 Temperature: Afebrile Blood Pressure: Normal Pulse: Regular Respiratory Rate: Normal Appearance: Positive for: Well-Appearing, Non-Toxic, Comfortable, Other (Pale) Pain Distress: None Mental Status: Positive for: Alert and Oriented X 3 - Systems Exam Head: Present: Atraumatic, Normocephalic Pupils: Present: PERRL Extroacular Muscles: Present: EOMI Conjunctiva: Present: Normal Mouth: Present: Moist Mucous Membranes Pharnyx: No: ERYTHEMA, EXUDATE, TONSILS ENLARGED Neck: Present: Normal Range of Motion. No: MIDLINE TENDERNESS, Paraspinal Tenderness Respiratory/Chest: Present: Clear to Auscultation, Good Air Exchange, Decreased Breath Sounds, Other (A left pacemaker wound clean and dry with no signs of infection). No: Respiratory Distress, Accessory Muscle Use, Tender to Palpation Cardiovascular: Present: Regular Rate and Rhythm, Normal S1, S2. No: Murmurs Abdomen: Present: Tenderness (Mild suprapubic tenderness), Normal Bowel Sounds. No: Distention, Peritoneal Signs, Rebound, Guarding Upper Extremity: Present: Normal Inspection. No: Cyanosis, Edema Lower Extremity: Present: Normal Inspection. No: Edema Neurological: Present: GCS=15, CN II-XII Intact, Speech Normal, Motor Func Grossly Intact Skin: Present: Warm, Dry, Pale. No: Rashes Psychiatric: Present: Alert, Oriented x 3, Normal Insight, Normal Concentration Medical Decision Making ED Course and Treatment: 03/16/17 19:52 EKG is pacing rate approximately 60 03/16/17 19:54 was here and saw the patient and wants him admitted to telemetry - Lab Interpretations Lab Results: 03/16/17 19:25 03/16/17 19:25 Lab Results 03/16/17 19:25: Sodium 134, Potassium 4.5, Chloride 96 L, Carbon Dioxide 32, Anion Gap 11, BUN 56 H, Creatinine 1.5 H, Est GFR ( Amer) 54, Est GFR ( Non-Af Amer) 44, Random Glucose 199 H, Calcium 9.3, Total Bilirubin 0.5, AST 45 , ALT 56, Alkaline Phosphatase 88, Lactate Dehydrogenase 759 H, Total Creatine Kinase 121, Troponin I 0.06, Total Protein 6.4, Albumin 3.7, Globulin 2.7, Albumin/Globulin Ratio 1.4, Amylase 60, Lipase 88 03/16/17 19:25: PT 11.3, INR 1.05, APTT 26.1 03/16/17 19:25: WBC 9.0 D, RBC 3.53, Hgb 9.8 L, Hct 30.7 L, MCV 87.0, MCH 27.8 , MCHC 31.9, RDW 14.8 H, Plt Count 204, MPV 9.7, Gran % 72.4 H, Lymph % (Auto) 17.2 L, Rich % (Auto) 8.4 H, Eos % (Auto) 1.7, Baso % (Auto) 0.3, Gran # 6.50, Lymph # 1.5, Rich # 0.8 H, Eos # 0.2, Baso # 0.03 - RAD Interpretation Radiology Orders: 03/16/17 18:56 CHEST PORTABLE [RAD] Stat - Medication Orders Current Medication Orders: Amiodarone HCl (Cordarone) 200 mg PO DAILY [facility] Atorvastatin Calcium (Lipitor) 10 mg PO DIN [facility] Calcium Acetate (Phoslo) 667 mg PO DAILY [facility] Digoxin (Lanoxin) 0.125 mg PO 1400 [facility] Doxercalciferol (Hectorol) 0.5 mcg PO DAILY [facility] Furosemide (Lasix) 40 mg PO BID [facility] Sodium Chloride (Sodium Chloride 0.45%) 1,000 mls @ 75 mls/hr IV .[id number] [facility] Last Admin: 03/16/17 20:00 Dose: 75 mls/hr Levothyroxine Sodium (Synthroid) 100 mcg PO DAILY [facility] Montelukast Sodium (Singulair) 10 mg PO DAILY [facility] Pantoprazole Sodium (Protonix Ec Tab) 40 mg PO 0630 [facility] Prednisone (Prednisone Tab) 10 mg PO DAILY [facility] Disposition/Present on Arrival - Present on Arrival Any Indicators Present on Arrival: No History of DVT/PE: Yes History of Uncontrolled Diabetes: No Urinary Catheter: No History of Decub. Ulcer: No History Surgical Site Infection Following: CABG - Mediastinitis - Disposition Have Diagnosis and Disposition been Completed?: Yes Diagnosis: Hematuria, Prostate cancer, Renal failure, Dehydration Disposition: HOSPITALIZED Disposition Time: 19:59 Patient Plan: Observation, Telemetry Patient Problems: Current Active Problems Problem Status Onset Hematuria Acute Condition: GOOD Referrals: Thanh Polk MD [Primary Care Provider] - Follow up with primary
[2017-03-16 19:37] LABS: ADD MANUAL DIFF? NO
[2017-03-16 19:56] LABS: INR 1.05 (0.93-1.08); PARTIAL THROMBOPLASTIN TIME 26.1 Seconds (23.7-30.8)
[2017-03-16 19:57] LABS: ALB/GLOB RATIO 1.4 (1.1-1.8); BILIRUBIN,TOTAL 0.5 mg/dL (0.2-1.3); CALCIUM 9.3 mg/dL (8.4-10.5); POTASSIUM 4.5 mmol/L (3.6-5.0); TOTAL PROTEIN 6.4 g/dL (5.8-8.3)
[2017-03-16] MEDS: Sodium Chloride 0.45% 1,000 ML IV SCH (20:00)
[2017-03-16 20:08] LABS: TROPONIN I 0.06 ng/mL
[2017-03-16 20:10] LABS: BASO # 0.03 K/mm3 (0.0-2.0); BASO % 0.3 % (0.0-3.0); EOS # 0.2 (0.0-0.7); EOS % 1.7 % (1.5-5.0); GRAN % 72.4 % (50.0-68.0); HEMATOCRIT 30.7 % (42.0-52.0); LYMPH # 1.5 (1.2-3.4); LYMPH % 17.2 % (22.0-35.0); MEAN CORPUSCULAR HEMOGLOBIN 27.8 pg (25.0-35.0); MEAN CORPUSCULAR HGB CONC 31.9 g/dl (31.0-37.0); MEAN PLATELET VOLUME 9.7 fl (7.0-11.0); MONO # 0.8 (0.1-0.6); MONO % 8.4 % (1.0-6.0); PLATELET COUNT 204 10^3/uL (120.0-450.0); RED CELL DISTRIBUTION WIDTH 14.8 % (11.5-14.5)
--- NOTE | 2017-03-16 21:09 | HP ---
I have seen the patient in the Emergency Room. HISTORY OF PRESENT ILLNESS: The patient is an 87 year old male with bleeding via the Avendano catheter, dark red blood. This has been going on for 2 days or more. The patient had his pacemaker changed about a week ago. The patient has been having hematuria intermittently. Now, he has lower abdominal pain, and he is very anxious about his condition. He has no fever. He denies back pain. PAST MEDICAL HISTORY: At this time the patient has a past history of diabetes mellitus and coronary artery disease. He has a pacemaker as mentioned. His pacemaker was changed about 6 days ago. The patient has a history of hypothyroidism. He has a history of chronic obstructive lung disease, coronary artery disease, congestive heart failure and gastritis. The patient has prostate carcinoma and has been placed on an oral anticancer drug called Xytiga . ALLERGIES: THE PATIENT HAS HISTORY OF ALLERGY TO MULTIPLE MEDICATIONS, ONE IS LEVOFLOXACIN AND THE OTHER IS CONTRAST MEDIA FOR X-RAYS. PAST SURGICAL HISTORY: The patient has had previous surgery, endoscopies, colonoscopies, and has been well evaluated in the past. Currently, the patient has hematuria. He has a Avendano catheter. He is being admitted to the telemetry floor because of his bleeding per urethra via the Avendano catheter and also history of cardiac disease. MEDICATIONS: The medications that the patient has recently been taking is Zytiga, it is also called abiraterone 250 mg; he was taking it Monday, Monday , and Monday. His other medications consist of Lasix 40 mg b.i.d., Hectorol 0.5 mcg daily. The patient is on digoxin 125 mcg daily; calcium acetate, which is PhosLo 667 mg p.o. daily; aspirin 81 mg daily; amiodarone 200 mg daily. The patient is on albuterol combination treatment that is DuoNeb q. 6 hours, prednisone 10 mg daily, simvastatin 20 mg daily; pantoprazole 40 mg daily; Singulair 10 mg daily; levothyroxine 100 mcg daily; insulin coverage for diabetes mellitus 3 times a day with meals. PHYSICAL EXAMINATION: VITAL SIGNS: At the time of examination, his pulse is 68, blood pressure 135/48 , respirations are 16, his O2 sat is 99%. His temperature 98.5. HEAD: Normocephalic. Atraumatic in the head, scalp. NECK: JVP is flat. There is no lymphadenopathy in the neck. The thyroid is not clinically enlarged. HEART: NSR. The patient has a pacemaker. ABDOMEN: Soft. There is tenderness in the lower abdomen, hypogastric area. LUNGS: Trachea central. Breath sounds are vesicular. crepitations at the bases. CENTRAL NERVOUS SYSTEM: The patient is conscious, rational, oriented. He is concerned about his condition. His cranial nerves from II-XII are intact. His motor and sensory functions are intact, except in that he has chronic peripheral neuritis from past history. ASSESSMENT AND PLAN: The patient's Avendano catheter drains red blood, which is dark. The patient will be put on IV fluids. We will put him on half-normal saline at 75 mL an hour, and we will continue all his medications. We will have consultations with Dr. Carballo, oncologist; Dr. Louise, who is a urologist; and Dr. Walters and Dr. Chavarria, they are his cardiologists. He will also be seen by Dr. Lozano, his sharepoint admin, and Dr. Arias, his bridal service sales and management. The patient will have followup blood work and we will keep close contact with the patient regarding the management. His chest x-ray is clear. His EKG is consistent with his prior diagnoses, and his condition is clinically stable, except for the fact that he has acute bleeding. This is a significant finding. We will follow up as mentioned. Giselle Polk MD cc: [id number] TT: 03/16/2017 21:08:54 tn MTDD
[2017-03-16 21:19] LABS: URINE BILIRUBIN LARGE (NEGATIVE); URINE BLOOD LARGE (NEGATIVE); URINE GLUCOSE (UA) NEGATIVE (NEGATIVE); URINE KETONE 15 mg/dL (NEGATIVE); URINE LEUKOCYTE ESTERASE LARGE Leu/uL (NEGATIVE); URINE PROTEIN >=300 mg/dL (<30 mg/dL)
[2017-03-16 21:22] LABS: URINE APPEARANCE BLOODY (CLEAR); URINE COLOR RED (YELLOW)
[2017-03-16 21:26] LABS: URINE RBC TNTC /hpf (0-2)
[2017-03-16 21:27] LABS: URINE BACTERIA MOD (NEG); URINE WBC 25 - 30 /hpf (0-6)
[2017-03-17] MEDS: Pantoprazole 40 mg EC Tab PO SCH (05:30)
[2017-03-17] MEDS ORDERED: Albuterol-Ipratrop 3 mg / 0.5 (3 ml) UD IH PRN (06:56)
--- NOTE | 2017-03-17 07:49 | CON ---
DATE: 03/17/2017 REASON FOR CONSULTATION: Chronic obstructive pulmonary disease. REFERRING PHYSICIAN: Dr. Polk The patient is an 87-year-old male with past medical history significant for advanced prostate cancer, anemia, chronic obstructive pulmonary disease, extensive coronary artery disease, ischemic cardiomyopathy, chronic renal insufficiency, who presents to [facility] with a 2-day history of increasing blood in his Avendano catheter. Apparently, the patient did speak with his primary doctor -- Dr. Polk -- who advised admission to the hospital for additional evaluation. The patient is not short of breath at rest. He does state to some chronic mild dyspnea on exertion. The patient denies cough or sputum production. The patient also denies chest pain, coughing up of blood or chest pain -- made worse with deep respirations. There is no history of temperatures, chills or infectious exposure. There is no history of night sweats, weight loss or appetite change prior to the above events. No history of leg or calf pains. No history of syncope or diaphoresis. No history of recent travel or trauma. REVIEW OF SYSTEMS: No history of nausea, vomiting or diarrhea. No new neurologic or musculoskeletal complaints. Rest is negative. ALLERGIES: IODINE AND LEVOFLOXACIN. SOCIAL HISTORY: Positive for tobacco, negative for alcohol. FAMILY HISTORY: No inheritable diseases. HOME MEDICATIONS: Include Zytiga, Lasix, Hectorol, Lanoxin, PhosLo, Ecotrin, amiodarone, prednisone, simvastatin, Singulair, Synthroid, insulin. PHYSICAL EXAMINATION: GENERAL: The patient appears comfortable this morning. He is not short of breath at rest. VITAL SIGNS: Temperature is 98.0, pulse 78, respirations 18, blood pressure 136 /68. Oxygen saturation on room air is 98%. HEENT: Normocephalic, atraumatic. No JVD. CARDIOVASCULAR: Systolic ejection murmur at the lower left sternal border. No S3 gallop. LUNGS: Decreased breath sounds at the bases. Minimal rhonchi. No wheezing. EXTREMITIES: Positive for edema. No cyanosis, no clubbing. Calves are nontender to palpation. GASTROINTESTINAL: Abdomen is soft. It is mildly distended and tender to palpation. Bowel sounds are positive. SKIN: No acute rash. NEUROLOGIC: Limited at the present time. PERTINENT LABORATORY DATA: Chest x-ray was done yesterday and reviewed. It is a poor portable film -- but does not appear significantly changed from the previous film. CBC: White count 9.0, hemoglobin 9.8, hematocrit 30.7, platelets of 204. Complete metabolic profile: Chloride 96, BUN 56, creatinine 1.5, glucose 199, LDH 759. Rest of the metabolic profile is within normal limits. IMPRESSION: 1. Hematuria. 2. Advanced prostate cancer. 3. Anemia. 4. Chronic obstructive pulmonary disease. 5. Extensive coronary artery disease. 6. Cardiomyopathy. 7. Chronic renal insufficiency. PLAN: The patient presents to [facility] with a 2-day history of worsening hematuria. The patient states that he started to notice the blood approximately 2 days ago. When the bleeding -- in his Avendano -- became worse, he did contact his private medical doctor. Dr. Polk then advised that the patient come to the Emergency Room for additional evaluation. I did review the chest x-ray as above. I do not appreciate a significant change from the previous film. On physical exam, there is minimal bronchospasm noted. The patient has been placed on oral prednisone and Singulair. I will also place him on scheduled DuoNeb treatments. There is no significant alveolar-arterial gradient. Oxygen saturation on room air is 98%-100%. Renal, cardiology, and genitourinary evaluations have been ordered. Additional pulmonary intervention will be based on the clinical status of the patient. I will discuss the above with the attending physician. Thank you very much for this pulmonary consultation. Kwadwo Arias MD cc: [id number] TT: 03/17/2017 07:49:03 Confirmation # [id number] Dictation # [id number] en MTDD
[2017-03-17] MEDS: Albuterol-Ipratrop 3 mg / 0.5 (3 ml) UD IH SCH ×3 (07:58→19:48)
--- NOTE | 2017-03-17 08:12 | RAD ---
HISTORY: admit COMPARISON: 12/19/2016 FINDINGS: LUNGS: There is linear atelectasis/ scarring in the left upper lobe. There is right basilar atelectasis. No lobar pneumonia. PLEURA: No significant pleural effusion identified, no pneumothorax apparent. CARDIOVASCULAR: There is persistent mild cardiomegaly. Status post CABG. Atherosclerotic aortic arch calcifications are present. . There is stable position of a left-sided dual lead permanent pacing device. OSSEOUS STRUCTURES: No significant abnormalities. VISUALIZED UPPER ABDOMEN: Normal. OTHER FINDINGS: None. IMPRESSION: No acute findings.
--- NOTE | 2017-03-17 08:17 | CP.PCM.PN ---
Subjective - Date & Time of Evaluation Date of Evaluation: 03/17/17 Time of Evaluation: 07:55 - Subjective Subjective: Patient is seen this morning. He is complaining of pain in the lower abdomen. He denies chest pain or SOB. Objective - Vital Signs/Intake and Output Vital Signs (last 24 hours): Temp Pulse Resp BP Pulse Ox 98 F 78 20 136/68 98 03/17/17 05:39 03/17/17 07:57 03/17/17 05:39 03/17/17 05:39 03/17/17 05:39 Intake and Output: 03/17/17 03/17/17 06:59 18:59 Intake Total 1275 Output Total 1200 Balance 75 - Medications Medications: Current Medications Albuterol/Ipratropium (Duoneb 3 Mg/0.5 Mg (3 Ml) Ud) 3 ml IH [id number] [facility] Last Admin: 03/17/17 07:58 Dose: 3 ml Albuterol/Ipratropium (Duoneb 3 Mg/0.5 Mg (3 Ml) Ud) 3 ml IH Q2H PRN PRN Reason: Shortness of Breath Amiodarone HCl (Cordarone) 200 mg PO DAILY [facility] Atorvastatin Calcium (Lipitor) 10 mg PO DIN [facility] Calcium Acetate (Phoslo) 667 mg PO DAILY [facility] Digoxin (Lanoxin) 0.125 mg PO 1400 [facility] Doxercalciferol (Hectorol) 0.5 mcg PO DAILY [facility] Furosemide (Lasix) 40 mg PO BID [facility] Sodium Chloride (Sodium Chloride 0.45%) 1,000 mls @ 75 mls/hr IV .[id number] [facility] Last Admin: 03/16/17 20:00 Dose: 75 mls/hr Levothyroxine Sodium (Synthroid) 100 mcg PO DAILY [facility] Montelukast Sodium (Singulair) 10 mg PO DAILY [facility] Pantoprazole Sodium (Protonix Ec Tab) 40 mg PO 0630 [facility] Last Admin: 03/17/17 05:30 Dose: 40 mg Prednisone (Prednisone Tab) 10 mg PO DAILY [facility] - Labs Labs: PT 11.3 Seconds (9.9-11.8) 03/16/17 19:25 INR 1.05 (0.93-1.08) 03/16/17 19:25 APTT 26.1 Seconds (23.7-30.8) 03/16/17 19:25 - Constitutional Appears: No Acute Distress - Head Exam Head Exam: ATRAUMATIC, NORMOCEPHALIC - Respiratory Exam Respiratory Exam: Clear to Ausculation Bilateral, NORMAL BREATHING PATTERN - Cardiovascular Exam Cardiovascular Exam: +S1, +S2 - GI/Abdominal Exam GI & Abdominal Exam: Soft Additional comments: mild tenderness lower quadrants, + blood in schroeder catheter - Neurological Exam Neurological Exam: Alert, Awake, Oriented x3 Assessment and Plan - Assessment and Plan (Free Text) Assessment: Hematuria UTI Metastatic Prostate Ca CAD/Chronic systolic heart failure COPD Plan: Patient is complaining of pain in the lower quadrants. Urinalysis is positive for urinary tract infection. Will order IV rocephin. Urine culture is pending. Will order Ultram for pain. Blood is seen in the schroeder catheter. Awaiting urology consult with Dr. Louise. Patient may need bladder irrigation. Appreciate pulmonary consult. continue nebulizer treatments, prednisone, and singulair continue IVFs continue insulin and accuchecks for diabetes
[2017-03-17 08:28] LABS: ADD MANUAL DIFF? NO
[2017-03-17 08:34] LABS: BASO # 0.03 K/mm3 (0.0-2.0); BASO % 0.3 % (0.0-3.0); EOS # 0.2 (0.0-0.7); EOS % 1.8 % (1.5-5.0); GRAN # 6.57 (1.4-6.5); GRAN % 71.2 % (50.0-68.0); HEMATOCRIT 30.6 % (42.0-52.0); LYMPH # 1.7 (1.2-3.4); LYMPH % 18.4 % (22.0-35.0); MEAN CELL VOLUME 87.4 fL (80.0-105.0); MEAN CORPUSCULAR HEMOGLOBIN 27.7 pg (25.0-35.0); MEAN CORPUSCULAR HGB CONC 31.7 g/dl (31.0-37.0); MEAN PLATELET VOLUME 9.5 fl (7.0-11.0); MONO # 0.8 (0.1-0.6); MONO % 8.3 % (1.0-6.0); PLATELET COUNT 170 10^3/uL (120.0-450.0); RED CELL DISTRIBUTION WIDTH 14.9 % (11.5-14.5); WHITE BLOOD COUNT 9.2 10^3/ul (4.5-11.0)
[2017-03-17 08:41] LABS: ALB/GLOB RATIO 1.3 (1.1-1.8); ALKALINE PHOSPHATASE 83 U/L (38-133); ALT/SGPT 54 U/L (7-56); AST/SGOT 48 U/L (15-59); BILIRUBIN,TOTAL 0.4 mg/dL (0.2-1.3); BLOOD UREA NITROGEN 43 mg/dL (7-21); CALCIUM 8.7 mg/dL (8.4-10.5); CARBON DIOXIDE 33 mmol/L (21-33); CHLORIDE 98 mmol/L (98-107); GFR AFRICAN-AMERICAN > 60; GLUCOSE,RANDOM 88 mg/dL (70-110); POTASSIUM 3.9 mmol/L (3.6-5.0); SODIUM 136 mmol/L (132-148); TOTAL PROTEIN 5.9 g/dL (5.8-8.3)
[2017-03-17] MEDS: Insulin Human NPH/Reg 70/30 Vial(3 ml) SC SCH ×3 (08:50→18:13)
[2017-03-17] MEDS: Levothyroxine 100 MCG TAB PO SCH (11:06)
[2017-03-17] MEDS: cefTRIAXone 1 gm 1 GM/100 ML BAG IVPB SCH (11:11)
--- NOTE | 2017-03-17 11:12 | CON ---
DATE: 03/17/2017 REASON FOR CONSULTATION: Chronic kidney disease stage IV, hematuria. HISTORY OF PRESENTING ILLNESS: An 87-year-old male, known to me from outpatient followup, admitted y day with complaints of recurrent hematuria. The patient reports that he suddenly developed very dark red urine last . He had his catheter changed last week. Hematuria seemed to have reso lved. Then, he had developed recurrent hematuria yesterday and hence came to the Emergency Room. He also complains of severe lower abdominal pain. He denies any fever, chills. He denies any shortnes s of breath. He denies any chest pain. PAST MEDICAL AND SURGICAL HISTORY: NIDDM, hypertension, CAD, permanent pacemaker, hypothyroidism, pr ostate cancer, bladder cancer, indwelling Avendano, recurrent hematuria, chronic kidney disease stage IV , anemia. FAMILY HISTORY: Noncontributory. SOCIAL HISTORY: No smoking, no alcohol use, no IV drug abuse. ALLERGIES: LEVAQUIN AND CONTRAST. HOME MEDICATIONS: Zytiga, abiraterone, Lasix, Hectorol, digoxin, PhosLo, amiodarone, DuoNeb, prednis one, simvastatin, Protonix, Singulair, Synthroid, insulin. REVIEW OF SYSTEMS: All systems are reviewed, pertinent positives are mentioned in the history of pre senting illness, rest unremarkable. PHYSICAL EXAMINATION: GENERAL: Elderly male sitting in bed, in no acute distress. VITAL SIGNS: Blood pressure 136/68, heart rate 78, respiratory rate 20, temperature 98. HEENT: Normocephalic, atraumatic, positive pallor. NECK: Supple, no JVD. LUNGS: Bilaterally equal air entry, no rales. CARDIAC: S1, S2, regular rate and rhythm, no murmur, no rub. ABDOMEN: Distended, soft, tenderness in the suprapubic region. Bowel sounds present. EXTREMITIES: Trace lower extremity edema, no clubbing, no cyanosis. INTAKE AND OUTPUT: 1275/1200. LABORATORY DATA: WBC 9.2, hemoglobin 9.7, hematocrit 30.6, platelets 170. Sodium 136, potassium 3.9 , chloride 98, CO2 33, BUN 43, creatinine 1.2, glucose 88, calcium 8.7, AST 48, ALT 54, albumin 3.3. Urinalysis red, bloody, pH 7.0, specific gravity 1.010, glucose negative, ketones 15, blood large, n itrites positive, leukocyte esterase large. CURRENT MEDICATIONS: Amiodarone 200, DuoNeb, Lanoxin, Lasix 40 p.o. b.i.d., Lipitor 10, PhosLo, Hect orol 0.5, ceftriaxone 1 gram daily, prednisone 10, Synthroid, tramadol. ASSESSMENT: 1. Acute kidney injury superimposed on chronic kidney disease stage IV, resolving acute kidney injur y. 2. Gross hematuria. 3. Possible urinary tract infection. 4. Bladder cancer. 5. Non-insulin dependent diabetes mellitus. 6. Coronary artery disease. PLAN: 1. Continue IV fluids. 2. Follow up urine culture. 3. Continue empiric antibiotics. 4. Dose all antibiotics for creatinine clearance 10-30 mL per minute. 5. Await recommendations. Marianne Lozano MD cc: [id number] TT: 03/17/2017 11:11:36 Confirmation # [id number] Dictation # [id number] tn
--- NOTE | 2017-03-17 12:18 | CON ---
DATE: 03/17/2017 REASON FOR CONSULTATION AND FOLLOWUP: Status post AICD generator changed, coronary artery disease, C ABG, mitral regurgitation, prostate CA, admitted with gross hematuria. BRIEF CLINICAL HISTORY: An 87-year-old male with a past medical history significant for coronary art maricarmen disease, metastatic prostate CA, diabetes, hypertension, hyperlipidemia, status post CABG many ye ars ago, pre CABG PTCA, post CABG PTCA, status post AICD with [id number]-life. Last Monday, had the generator changed by Dr. Felton. Came yesterday because of having a dark colored urine, has indwel ling Avendano catheter because of the prostate CA. Denies any chest pain, denies any palpitations. Com plained of shortness of breath, nothing unusual. The patient uses home oxygen from 2 years on, at [facility] off and on. PAST MEDICAL HISTORY: Significant for coronary artery disease, CABG, status post AICD, history of PT CA before CABG, history of PTCA after CABG, history of prostate CA with metastases, history of multip le urinary tract infections, indwelling Avendano catheter, history of deep vein thrombosis, was on Josias xa at one point, but later on discontinued because of the bleeding from the , history of ischemic c ardiomyopathy, status post multiple stents as mentioned before, history of [id number]-[id number] myocardial infarction on previous 2 admissions, asymptomatic, decided to treat medically. PREVIOUS CARDIAC WORKUP: The patient had recent echocardiography on 12/20/2016 that showed ejection f raction 45%, trace to mild aortic regurgitation, mild to moderate valvular aortic stenosis, moderate mitral regurgitation, mild to moderate tricuspid regurgitation, RV systolic pressure 43, trace to mil d pulmonary insufficiency, no vegetation noted, peak gradient across the aortic valve was 20 mm gradi ent, mean gradient, 12 mm, valve area ____ cm consistent with moderate aortic stenosis. REVIEW OF SYSTEMS: A 14-point as per HPI and negative except HPI. Complained of shortness of breath . It was not usual. It was usual shortness of breath on home oxygen off and on. PHYSICAL EXAMINATION: VITAL SIGNS: Temperature afebrile, heart rate 70, blood pressure 136/68. HEENT: PERRLA. Extraocular muscles intact. NECK: Supple. No carotid bruits. No thyromegaly. CHEST: Clear to auscultation. HEART: S1, S2 regular. ABDOMEN: Soft. EXTREMITIES: Clubbing, cyanosis negative. BLOOD WORKUP: WBC 9.____, hemoglobin 9.____, hematocrit 30.6, platelet count 170. Chemistry shows s odium 136, potassium 3.9, chloride ____, carbon dioxide 33, anion gap of 9, BUN 43, creatinine 1.2, t otal protein 5.9, albumin 3.3, albumin/globulin ratio 1.3. Troponin 0.06. IMPRESSION: Gross hematuria, dark colored urine, indwelling Avendano catheter for a long time, history of prostate cancer with metastasis, history of coronary artery disease, history of percutaneous trans luminal coronary angioplasty, history of coronary artery bypass graft, history of percutaneous transl uminal coronary angioplasty post coronary artery bypass graft, history of end-of-life of pacemaker, h istory of generator change last Monday of automatic implantable cardioverter-defibrillator generator change. Most recent echo shows ejection fraction 45% dated 12/20/2016, moderate aortic stenosis, valv e area ____ cm squared, peak gradient 22 mm, mean gradient 12, consistent with mild to moderate aorti c stenosis, mild to moderate tricuspid regurgitation ____ mild to moderate valvular aortic stenosis, moderate mitral regurgitation, mild to moderate tricuspid regurgitation, right ventricular systolic p ressure 43. Gross hematuria, history of syncope in the past, history of see-WO-ccchorp myocardial in farction on previous 2 admissions and because the patient is asymptomatic and underlying multiple com orbidities, decided to treat medically. The patient is currently asymptomatic. Denies any chest adonay n. History of paroxysmal atrial fibrillation/flutter. Two weeks ago, patient had a very brief perio d of episode of flutter, not on anticoagulation because of gross hematuria, was at one point was on P radaxa, history of deep venous thrombosis, was on Pradaxa, but off now because of genitourinary bleed , history of congestive heart failure, now patient's congestive heart failure is compensated, not in acute decompensated congestive heart failure, stable, history of chronic congestive heart failure sec ondary to systolic dysfunction. RECOMMENDATION: Discussed with Dr. Polk. Discussed patient's condition with the patient. We will continue amiodarone 200 mg daily, continue digoxin, continue gentle diuretics, continue atorvast atin. Cautious hydration. Continue amiodarone to prevent go back into atrial fibrillation. EKG blayne ws ventricular paced rhythm, underlying sinus mechanism. We will follow with you. Thank you, Dr. Polk, for providing us the opportunity in taking care of patient. We will repea t blood workup in the morning including TSH. Thank you, Dr. Polk, for providing us the opportunity in taking care of the patient. We will f sybil with you. Mely Chavarria MD cc: [id number] TT: 03/17/2017 10:17:11 Confirmation # [id number] Dictation # [id number] 03/17/2017 11:17:32
[2017-03-17] MEDS: Digoxin 125 mcg (0.125 mg) Tab PO SCH (14:03)
[2017-03-17] MEDS: Sodium Chloride 0.45% 1,000 ML IV SCH (14:04)
[2017-03-17 14:06] VITALS: PULSE 63
--- NOTE | 2017-03-17 15:30 | CON ---
DATE: 03/17/2017 CHIEF COMPLAINT: Weakness and gross hematuria. HISTORY OF PRESENT ILLNESS: This is an 87-year-old male who is well known to me. The patient has ca strate-resistant metastatic prostate cancer. The patient has a history of urinary retention as well and he has been maintained for the past few years with an indwelling Avendano catheter which is changed monthly. The patient has had recurrent episodes of gross hematuria over the past few years. Prior c ystoscopy has shown no bladder tumor and the source of gross hematuria appears to be from chronic cys titis given the indwelling Avendano catheter and possibly from his metastatic prostate cancer. Recently , patient was having gross hematuria. He was seen in my office. His Avendano catheter was changed and his bladder was irrigated with removal of a small amount of clot and the urine was then flowing clear . The patient reports at home for a few days, the urine was clear until he was straining for a bowel movement and then the urine became darkly bloody again. The patient contacted his primary medical d savannah, who advised him to come to the Emergency Room and patient was then admitted. He denies any fe alfredo or chills. He does have chronic bony pain from arthritis. He does report some chronic lower abd ominal pain, which is likely from farhad disease from his prostate cancer. The patient has been kay moore myself and Dr. Carballo from oncology for management of his prostate cancer and recently has been on Zytiga and prednisone, although at a very reduced dose. He was felt not to be a good candidate for chemotherapy reportedly from his long-term use of amiodarone. A consultation was requested regard ing the gross hematuria and prostate cancer. PAST MEDICAL HISTORY: Significant for metastatic prostate cancer, congestive heart failure, hematuri a, arthritis, coronary artery disease, permanent pacemaker, hypothyroidism, COPD, gastritis. MEDICATIONS: Currently include Cordarone, DuoNeb, Hectorol, Lanoxin, Lasix, Lipitor, PhosLo, prednis one, Protonix, Rocephin, Singulair, Synthroid, and Ultram. ALLERGIES: ALLERGIC TO LEVAQUIN AND IV CONTRAST. FAMILY HISTORY: Noncontributory. SOCIAL HISTORY: No smoking or ETOH use. REVIEW OF SYSTEMS: Positive as per the HPI. Positive for weakness, positive for lethargy, positive for lower abdominal pain, positive for low back pain and joint pain, positive for difficulty ambulati ng, positive for dizziness, positive for shortness of breath and cough, positive for constipation. O ther systems are negative. PHYSICAL EXAMINATION: GENERAL: The patient is awake and alert. He is answering questions. VITAL SIGNS: Show afebrile, temperature of 97.6, pulse of 60, BP 130/88 and respirations of 20. NECK: Supple. There is no adenopathy. CHEST: Reveals a normal inspiratory effort. CARDIAC: Showed positive S1, S2. There is some mild peripheral edema. ABDOMEN: Soft, there is some tenderness in the suprapubic region, more to the left. There is no osvaldo ound or guarding. There is no obvious mass. There is no CVA tenderness. EXTREMITIES: There is no cyanosis. There is lower extremity edema noted. GENITOURINARY: Phallus is normal. There is a Avendano catheter in place, which is draining lightly blo od-tinged urine. Scrotum is normal. Testes bilaterally descended, nontender, no masses. Epididymi are normal. LABORATORY EXAMINATION: WBC count 9.2, hemoglobin 9.7, platelets 170. GFR of 57. Urinalysis showed positive nitrites, too numerous to count RBC, 25-30 WBC, positive protein. No current microbiology specimens. IMAGING: No pertinent studies were done. Chest x-ray showed cardiomegaly, aortic arch calcification s and a pacemaker in place. No noted pneumonias. IMPRESSION AND PLAN: This is an 87-year-old male with a history of castrate-resistant metastatic pro state cancer. The patient has had recurrent episodes of gross hematuria and an indwelling Avendano, whi ch is changed monthly. As for the gross hematuria, the urine appears to be grossly clearing and my r ecommendation would be to flush his Avendano catheter with normal saline each shift until the hematuria resolves. I would continue him on IV antibiotics for likely chronic urinary infection which is exace rbating the gross hematuria. As for his lower abdominal pain and prostate cancer, I recommend a cons ultation with Dr. Carballo from oncology. The patient appears to be failing the advanced hormonal man ipulations. He was felt not to be a candidate for chemotherapy and we will need to come up with some type of plan for further treatment if possible. I will order a noncontrast CT scan of the abdomen a nd pelvis as well as a PSA level to see if there has been further progression of his disease. Thank you for allowing me to participate in the care of this patient. We will follow him with you. Eddie Louise MD cc: [phone] TT: 03/17/2017 15:30:23 Confirmation # [id number] Dictation # [id number]
--- NOTE | 2017-03-17 19:21 | CARD ---
APPROVED REPORT EKG Measurement Heart [id number] DE 156P [id number] <Conclusion> AV sequential or dual chamber electronic pacemaker
--- NOTE | 2017-03-18 01:20 | CON ---
DATE: 03/17/2017 REASON FOR CONSULTATION: The patient has metastatic hormone-refractory prostate cancer, currently on Zytiga and prednisone albeit on vastly reduced doses who is now admitted to the hospital with weakne ss and gross hematuria. HISTORY OF PRESENT ILLNESS: An 87-year-old white male who is well known to us, has hormone-refractory prostate cancer who was initially on Casodex, currently on Zytiga and prednisone with the background history of having severe coronary artery disease with atrial fibrillation, has been in the past on a nticoagulants that will be held because of recurrent hematuria. He sees Dr. Louise who had recently do ne Avendano catheter exchanges of his chronic indwelling Avendano catheter. He had prior to that a cystosc opy done which showed no gross disease, but did reveal chronic cystitis and he could be having recurr ent bleeding from just the cystitis itself secondary to the catheter or there could be a component of tumor that could be impinging from his hormone-refractory prostate cancer. The patient has had bo ral other episodes similar in nature with gross hematuria requiring IV antibiotics the urinatio n would clear up. The patient has had now about 3 admissions in the last 4 months for similar compla ints. He has been treated with IV antibiotics and has improved. The patient also has left lower ankita drant pain and has been clinically treated for diverticulitis in the past by his primary medical doct or. A question of possibility of pelvic recurrence disease secondary to his prostate cancer is also being entertained for the chronic left lower quadrant pain. The patient, every time he has an issue with constipation or strains, then ends up having the hematuria. PAST MEDICAL HISTORY: Is significant for metastatic prostate cancer, congestive heart failure and co ronary artery disease; the patient has a defibrillator pacemaker, history of arthritis, COPD and nirali ritis with intermittent episodes of hematuria. CURRENT MEDICATIONS INCLUDE: Cordarone, DuoNeb, , Lasix, Lanoxin, Lipitor, PhosLo, prednisone, P rotonix, Rocephin, Singulair, Synthroid and Ultram. ALLERGIES: THE PATIENT IS ALLERGIC TO INTRAVENOUS CONTRAST AND TO LEVAQUIN. SOCIAL HISTORY: The patient is a nonalcoholic, nonsmoker. REVIEW OF SYSTEMS: Positive as per the HPI. The patient has been having weakness and more important ly, he was having left lower quadrant pain and back pain with difficulty in walking. He uses a cane. PHYSICAL EXAMINATION: At the time of consultation reveals the patient to be awake, alert and oriented x 3. GENERAL: Head is normocephalic and atraumatic. VITAL SIGNS: Stable. T-max is 98.4, pulse is 60, blood pressure is 130/88 and respirations 20. HEENT: The oropharynx reveals no oropharyngeal lesions. NECK: Supple. There is no adenopathy. LUNGS: Reveals it to clear to percussion and auscultation. HEART: Reveals PMI to be in the 5th intercostal space inside the midclavicular line. ABDOMEN: Soft. There is some tenderness in the supraclavicular, pubic and in the left lower quadrant region. No r ebound, rigidity or guarding is noted. No masses per se is felt. EXTREMITIES: Lower extremities reveal lower extremity edema. No cyanosis is noted. GENITOURINARY: The patient has a Avendano catheter in place, which is draining lightly blood-tinged urin e. Scrotum is normal. NEUROLOGIC: Higher functions are normal. No focal deficits are noted. LABORATORY DATA: Reveals a white count of 9.2, hemoglobin 9.7 and platelet count of 170,000. Urine is positive for nitrites, multiple RBCs and 20 to 30 WBCs. No microbiology specimens are still avail able on the urine. ASSESSMENT NOTES AND PLAN: An 87-year-old male with multiple medical issues, also has hormone-refrac tory prostate carcinoma who currently has gross hematuria. RECOMMENDATIONS: Would be as per urology. The patient at this time does not require any active inte rvention. Would treat the patient conservatively with IV antibiotics and irrigation of the Avendano cat heter every shift until the hematuria resolves. There might be a value for trying the patient on tra nexamic acid 600 mg b.i.d. Will check with urology before initiating any treatment like that. Will go back to giving him to the Zytiga one a day along with the prednisone once this acute episode is ov er as the patient's PSA did seem to be responding and it was coming down in that setting. The patien t is not a candidate for chemotherapy at this time. Will discuss other treatment options depending o n the findings of the CAT scan. If it is just local disease, would plan on requesting the patient if he would be willing to try any newer forms of therapy that may be of value. His age and his medical issues unfortunately prevents to us from doing anything more esoteric at this time. Will continue c urrent management. I have explained my findings in detail to the patient and will then take a conser vative approach at this time. Will discuss with and as well. Rogelio Carballo MD cc: [id number] TT: 03/18/2017 01:20:26 Confirmation # [id number] Dictation # [id number] sn
[2017-03-18] MEDS: Albuterol-Ipratrop 3 mg / 0.5 (3 ml) UD IH SCH ×4 (01:55→19:51)
[2017-03-18] MEDS: Sodium Chloride 0.45% 1,000 ML IV SCH ×3 (06:00→21:56)
[2017-03-18] MEDS: Pantoprazole 40 mg EC Tab PO SCH (06:01)
[2017-03-18 07:43] LABS: ADD MANUAL DIFF? NO
[2017-03-18 07:54] LABS: BASO # 0.03 K/mm3 (0.0-2.0); BASO % 0.3 % (0.0-3.0); EOS # 0.1 (0.0-0.7); EOS % 0.6 % (1.5-5.0); GRAN # 9.18 (1.4-6.5); GRAN % 82.1 % (50.0-68.0); LYMPH # 1.1 (1.2-3.4); LYMPH % 10.1 % (22.0-35.0); MEAN CELL VOLUME 86.8 fL (80.0-105.0); MEAN CORPUSCULAR HEMOGLOBIN 27.2 pg (25.0-35.0); MEAN CORPUSCULAR HGB CONC 31.4 g/dl (31.0-37.0); MEAN PLATELET VOLUME 9.4 fl (7.0-11.0); MONO # 0.8 (0.1-0.6); MONO % 6.9 % (1.0-6.0); PLATELET COUNT 170 10^3/uL (120.0-450.0); RED CELL DISTRIBUTION WIDTH 14.9 % (11.5-14.5); WHITE BLOOD COUNT 11.2 10^3/ul (4.5-11.0)
[2017-03-18 08:14] LABS: ALB/GLOB RATIO 1.3 (1.1-1.8); ALKALINE PHOSPHATASE 81 U/L (38-133); ALT/SGPT 51 U/L (7-56); AST/SGOT 34 U/L (15-59); BILIRUBIN,TOTAL 0.4 mg/dL (0.2-1.3); BLOOD UREA NITROGEN 31 mg/dL (7-21); CALCIUM 8.6 mg/dL (8.4-10.5); CARBON DIOXIDE 28 mmol/L (21-33); CHLORIDE 98 mmol/L (98-107); GFR AFRICAN-AMERICAN > 60; GLUCOSE,RANDOM 254 mg/dL (70-110); MAGNESIUM 2.4 mg/dL (1.7-2.2); PHOSPHOROUS 3.8 mg/dL (2.5-4.5); POTASSIUM 4.2 mmol/L (3.6-5.0); SODIUM 134 mmol/L (132-148); TOTAL PROTEIN 5.8 g/dL (5.8-8.3)
[2017-03-18 08:35] LABS: PROSTATE SPECIFIC ANTIGEN 33.7 ng/mL (0.00-2.5); THYROID STIMULATING HORMONE 6.12 mIU/mL (0.46-4.68)
[2017-03-18] MEDS: Insulin Human NPH/Reg 70/30 Vial(3 ml) SC SCH ×3 (09:10→18:36)
--- NOTE | 2017-03-18 09:14 | PN ---
DATE: 03/18/2017 SUBJECTIVE: The patient appears comfortable this morning. He is not short of breath at rest. PHYSICAL EXAMINATION: VITAL SIGNS: Temperature is 97.9, pulse 66, respirations 18/20, blood pressure 130/66. Oxygen saturation on room air is 96-97%. HEENT: Normocephalic, atraumatic. No JVD. CARDIOVASCULAR: Systolic ejection murmur at the lower left sternal border. No S3 gallop. LUNGS: Decreased breath sounds at the bases. Less rhonchi. No wheezing. EXTREMITIES: Positive for edema. No cyanosis. No clubbing. Calves are nontender to palpation. GASTROINTESTINAL: Abdomen is soft. It is less distended and less tender to palpation. Bowel sounds are positive. SKIN: No acute rash. NEUROLOGIC: Limited at the present time. IMPRESSION: 1. Hematuria. 2. Advanced prostate cancer. 3. Anemia. 4. Chronic obstructive pulmonary disease. 5. Extensive coronary artery disease. 6. Cardiomyopathy. 7. Chronic renal insufficiency. PLAN: The patient appears more comfortable this morning. He is not short of breath at rest. He states he is feeling much better overall. He also states to less hematuria - seen in his Avendano. On physical exam, his bronchospasm is less. In addition, there is no significant alveolar arterial gradient. Oxygen saturation on room air is now 96-97%. I will continue with the current nebulizer treatments for now. The patient is also on 10 mg of prednisone daily. Inputs by genitourinary and oncology are noted. CAT scan of the abdomen and pelvis is ordered. Clinical status of the patient is certainly improved - compared to the initial presentation. However, unfortunately, the overall status/prognosis of this patient remains very guarded at best. I will discuss the above with Dr. Polk. Kwadwo Arias MD cc: [phone] TT: 03/18/2017 09:13:14 Confirmation # [id number] Dictation # [id number] MTDD
--- NOTE | 2017-03-18 09:58 | CP.PCM.PN ---
Subjective - Date & Time of Evaluation Date of Evaluation: 03/18/17 Time of Evaluation: 09:40 - Subjective Subjective: Patient is seen this morning in room 276 bed 2. He says his lower abdominal pain is improving. Hematuria is resolving. Objective - Vital Signs/Intake and Output Vital Signs (last 24 hours): Temp Pulse Resp BP Pulse Ox 97.9 F 66 20 130/66 96 03/18/17 05:48 03/18/17 05:48 03/18/17 05:48 03/18/17 05:48 03/18/17 05:48 Intake and Output: 03/18/17 03/18/17 06:59 18:59 Intake Total 2040 Output Total 3650 Balance -1610 - Medications Medications: Current Medications Albuterol/Ipratropium (Duoneb 3 Mg/0.5 Mg (3 Ml) Ud) 3 ml IH [id number] [facility] Last Admin: 03/18/17 01:55 Dose: 3 ml Albuterol/Ipratropium (Duoneb 3 Mg/0.5 Mg (3 Ml) Ud) 3 ml IH Q2H PRN PRN Reason: Shortness of Breath Amiodarone HCl (Cordarone) 200 mg PO DAILY [facility] Last Admin: 03/17/17 11:12 Dose: 200 mg Atorvastatin Calcium (Lipitor) 10 mg PO DIN [facility] Last Admin: 03/17/17 18:17 Dose: 10 mg Calcium Acetate (Phoslo) 667 mg PO DAILY [facility] Last Admin: 03/17/17 11:07 Dose: 667 mg Digoxin (Lanoxin) 0.125 mg PO 1400 [facility] Last Admin: 03/17/17 14:03 Dose: 0.125 mg Doxercalciferol (Hectorol) 0.5 mcg PO DAILY [facility] Last Admin: 03/17/17 11:12 Dose: 0.5 mcg Furosemide (Lasix) 40 mg PO BID [facility] Last Admin: 03/17/17 18:17 Dose: 40 mg Sodium Chloride (Sodium Chloride 0.45%) 1,000 mls @ 75 mls/hr IV .[id number] [facility] Last Admin: 03/18/17 06:00 Dose: 75 mls/hr Ceftriaxone Sodium (Rocephin 1 Gram Ivpb) 1 gm in 100 mls @ 100 mls/hr IVPB DAILY [facility] PRN Reason: Protocol Last Admin: 03/17/17 11:11 Dose: 100 mls/hr Levothyroxine Sodium (Synthroid) 100 mcg PO DAILY [facility] Last Admin: 03/17/17 11:06 Dose: 100 mcg Montelukast Sodium (Singulair) 10 mg PO DAILY [facility] Last Admin: 03/17/17 14:04 Dose: 10 mg Pantoprazole Sodium (Protonix Ec Tab) 40 mg PO 0630 [facility] Last Admin: 03/18/17 06:01 Dose: 40 mg Prednisone (Prednisone Tab) 10 mg PO DAILY [facility] Last Admin: 03/17/17 11:11 Dose: 10 mg Tramadol HCl (Ultram) 50 mg PO TID [facility] Last Admin: 03/17/17 18:14 Dose: Not Given - Labs Labs: 03/18/17 07:39 03/18/17 07:39 PT 11.3 Seconds (9.9-11.8) 03/16/17 19:25 INR 1.05 (0.93-1.08) 03/16/17 19:25 APTT 26.1 Seconds (23.7-30.8) 03/16/17 19:25 - Constitutional Appears: No Acute Distress - Head Exam Head Exam: ATRAUMATIC, NORMOCEPHALIC - Respiratory Exam Respiratory Exam: Decreased Breath Sounds, NORMAL BREATHING PATTERN - Cardiovascular Exam Cardiovascular Exam: +S1, +S2 - GI/Abdominal Exam GI & Abdominal Exam: Soft, Tenderness, Normal Bowel Sounds Additional comments: mild tenderness lower quadrants - Extremities Exam Extremities Exam: Normal Inspection - Neurological Exam Neurological Exam: Alert, Awake, Oriented x3 Assessment and Plan - Assessment and Plan (Free Text) Assessment: Hematuria Cystitis Prostate Ca CAD/Chronic heart failure DMII Hypothyroidism Plan: Patient's hematuria seems to be resolving. continue flushing schroeder catheter with normal saline every shift. Patient is going for CT abd/pelvis today continue IV rocephin for cystitis urine culture growing GNRs; awaiting sensitivity continue Ultram for pain
[2017-03-18] MEDS: cefTRIAXone 1 gm 1 GM/100 ML BAG IVPB SCH (10:48)
[2017-03-18] MEDS: Levothyroxine 100 MCG TAB PO SCH (10:50)
--- NOTE | 2017-03-18 12:39 | CT ---
PROCEDURE: CT Abdomen and Pelvis without intravenous contrast HISTORY: abdominal pain, prostate cancer COMPARISON: None. TECHNIQUE: Technique. Contrast Dose: Radiation dose: Total exam DLP = 466 mGy-cm. This CT exam was performed using one or more of the following dose reduction techniques: Automated exposure control, adjustment of the mA and/or kV according to patient size, and/or use of iterative reconstruction technique. FINDINGS: LOWER THORAX: Unremarkable. LIVER: Unremarkable. No gross lesion or ductal dilatation. GALLBLADDER AND BILE DUCTS: Cholelithiasis. PANCREAS: Unremarkable. No gross lesion or ductal dilatation. SPLEEN: Unremarkable. ADRENALS: Unremarkable. No mass. KIDNEYS AND URETERS: Unremarkable. No hydronephrosis. No solid mass. VASCULATURE: Extensive vascular calcifications.. No aortic aneurysm. BOWEL: Unremarkable. No obstruction. No gross mural thickening. APPENDIX: Unremarkable. Normal appendix. PERITONEUM: Unremarkable. No free fluid. No free air. LYMPH NODES: Scattered mild retrocrural and retroperitoneal lymph nodes, unchanged. BLADDER: Avendano catheter in bladder with right-sided bladder wall thickening.. REPRODUCTIVE: Unremarkable. BONES: Diffuse sclerotic metastasis noted. OTHER FINDINGS: None. IMPRESSION: Cholelithiasis. Stable retrocrural and retroperitoneal lymphadenopathy. Diffuse sclerotic metastasis. Avendano catheter in bladder with right-sided bladder wall thickening.
--- NOTE | 2017-03-18 13:24 | PN ---
DATE: 03/18/2017 SUBJECTIVE: The patient is seen sitting in chair. He is awake. He is alert, he is comfortable. Hi s Avendano now draining much clearer urine. He denies any chest tightness, shortness of breath. He sti ll has lower abdominal pain. PHYSICAL EXAMINATION: GENERAL: Elderly male sitting in bed. VITAL SIGNS: Blood pressure 143/67, heart rate 68, respiratory rate 20, temperature 97.9. HEENT: Normocephalic, atraumatic. NECK: Supple, no JVD. LUNGS: Bilateral equal air entry, no rales. CARDIAC: S1, S2, regular rate and rhythm, no murmur, no rub. ABDOMEN: Distended, soft, tenderness in the lower abdomen. Bowel sounds present. EXTREMITIES: No lower extremity edema. INTAKE AND OUTPUT: 2460/3650 ? LABORATORY DATA: WBC 11.2, hemoglobin 9, hematocrit 29, platelets 170. Sodium 134, potassium 4.2, c hloride 98, CO2 28, BUN 31, creatinine 1.1, glucose 254, calcium 8.6, phosphorus 3.8, magnesium 2.4, albumin 3.4, corrected calcium is 9.2. PSA 33.7. TSH 6.1. CURRENT MEDICATIONS: Cordarone, DuoNeb, Hectorol, Lanoxin, Lasix 40 b.i.d., Lipitor, PhosLo, prednis one, Protonix, Rocephin 1 gram, Singulair, half normal saline at 75, Synthroid, tramadol. ASSESSMENT: 1. Gross hematuria, resolving. 2. Acute kidney injury superimposed on chronic kidney disease stage IV, resolved. 3. Anemia, multifactorial, chronic kidney disease, hematuria. 4. Prostate cancer. 5. Non-insulin dependent diabetes mellitus. 6. Coronary artery disease. 7. Hypertension. PLAN: 1. Continue hypotonic fluids for 1 more day. Okay to discontinue in a.m. 2. Management of prostate cancer as per oncology team. 3. Continue current antihypertensives. 4. Avoid nephrotoxins. Marianne Lozano MD cc: [phone] TT: 03/18/2017 13:24:31 Confirmation # [id number] Dictation # [id number] jn
[2017-03-18] MEDS: Digoxin 125 mcg (0.125 mg) Tab PO SCH (14:45)
--- NOTE | 2017-03-18 19:37 | PN ---
DATE: 03/18/2017 The patient is in room 276, bed 2. REASON FOR CONSULTATION: Coronary artery disease, cardiomyopathy, AICD generator change, prostate CA , admitted with hematuria. HISTORY OF PRESENT ILLNESS: The patient is an 87-year-old who is known to have coronary artery bypas s surgery, multiple PTCAs, hypertension, diabetes, cardiomyopathy, AICD insertion, recent change of A ICD battery by Dr. Felton about 1 week ago, was admitted with hematuria. Denies any chest pain, sh ortness of breath or palpitations. The patient's detailed cardiac history as mentioned in our previo us notes and consults. Please refer to that. PHYSICAL EXAMINATION: VITAL SIGNS: Blood pressure 141/67, respirations 18, pulse 60, temperature 97.7. HEENT: Head is normocephalic. Eyes: Pupils normal. Conjunctivae slightly pale. NECK: JVP low. Carotid equal. THORAX: AP diameter normal. LUNGS: Clear. CARDIOVASCULAR: S1, S2, systolic murmur III/, no rub. ABDOMEN: Soft, nontender, no organomegaly. Bowel sounds normal. EXTREMITIES: No clubbing, no cyanosis. LABORATORY DATA: WBC 11.2, hemoglobin 9.1, hematocrit 29.0, platelet 170. Sodium 134, potassium 4.2 , BUN 31, creatinine 1.1, random sugar 161. Calcium, phosphorus and magnesium normal. AST and ALT n ormal. PSA 33.7. TSH 6.12. DIAGNOSES: Hematuria, carcinoma of the prostate, coronary artery disease, history of coronary artery bypass graft, history of multiple stents, status post automatic implantable cardioverter-defibrillat or insertion, recent battery change defibrillator. Echo on 12/20, ejection fraction 45%, moderat e aortic stenosis, slightly dhft-nf-imnotrer aortic stenosis, [id number]-[id number] tricuspid regurgitatio n, gocq-jw-vbjtltms tricuspid regurgitation, right ventricular systolic pressure of 43 mmHg, history of non-ST segment elevation myocardial infarction on previous 2 admissions because of the patient was asymptomatic and underlying multiple comorbidities, so was treated medically; history of paroxysmal atrial fibrillation, the patient is not on anticoagulation because of gross hematuria, history of jerry p vein thrombosis, at one time the patient was on Pradaxa, but off now because of a genitourinary ble eding, history of congestive heart failure, history of chronic renal dysfunction. PLAN: The patient is already on levothyroxine 100 mcg p.o. daily, Rocephin 1 gram IV daily, predniso ne 10 mg daily, Protonix 40 daily, Lipitor 10 daily, furosemide 40 mg b.i.d., digoxin 0.125 daily, in sulin, amiodarone 200 mg p.o. daily, DuoNeb hand nebulizer therapy and IV fluid as ordered. So, will continue present therapy. The patient is asymptomatic from a cardiac point of view. If he needs an y procedures from urology point of view, the patient can undergo from a cardiac point of view as a mo derate risk because of comorbidities and will follow with you. Mely Walters MD cc: [phone] TT: 03/18/2017 19:36:56 Confirmation # [id number] Dictation # [id number]
[2017-03-19] MEDS: Albuterol-Ipratrop 3 mg / 0.5 (3 ml) UD IH SCH ×2 (01:03→08:15)
[2017-03-19 02:47] VITALS: O2SAT 97
[2017-03-19] MEDS: Sodium Chloride 0.45% 1,000 ML IV SCH (05:26)
[2017-03-19] MEDS: Pantoprazole 40 mg EC Tab PO SCH (05:43)
--- NOTE | 2017-03-19 08:50 | PN ---
DATE: 03/19/2017 PULMONARY NOTE SUBJECTIVE: The patient appears very comfortable this morning. He is not short of breath at rest. PHYSICAL EXAMINATION: VITAL SIGNS: Temperature is 98.1, pulse 68, respirations 19, blood pressure 136 /72. Oxygen saturation on room air is 97%. HEENT: Normocephalic, atraumatic. No JVD. CARDIOVASCULAR: Systolic ejection murmur at the lower left sternal border. No S3 gallop. LUNGS: Decreased breath sounds at the bases. Minimal/less rhonchi. No wheezing. EXTREMITIES: Positive for edema. No cyanosis, no clubbing. Calves are nontender to palpation. GASTROINTESTINAL: Abdomen is soft. It is less distended and less tender to palpation. Bowel sounds are positive. SKIN: No acute rash. NEUROLOGIC: Limited at the present time. IMPRESSION: 1. Hematuria. 2. Advanced prostate cancer. 3. Anemia. 4. Chronic obstructive pulmonary disease. 5. Extensive coronary artery disease. 6. Cardiomyopathy. 7. Chronic renal insufficiency. PLAN: The patient appears very comfortable this morning. He is not short of breath at rest. He states he is feeling much better overall. The urine has cleared significantly in his [place]. On physical exam, there is no significant bronchospasm noted. In addition, there is no significant alveolar arterial gradient. I will continue with the current nebulizer treatments for now. The patient is also on oral prednisone. Inputs by genitourinary and cardiology are noted. Clinical status of the patient is improving. However, again, the overall status/prognosis of this patient does remain very guarded. I will discuss the above with the attending physician. Kwadwo Arias MD cc: [id number] TT: 03/19/2017 08:49:38 Confirmation # [id number] Dictation # [id number] tramaine [place]
--- NOTE | 2017-03-19 09:08 | CP.PCM.PN ---
Subjective - Date & Time of Evaluation Date of Evaluation: 03/19/17 Time of Evaluation: 08:40 - Subjective Subjective: Patient is seen this morning in room 276 bed 2. His urine is now clear. He wants to go home. Objective - Vital Signs/Intake and Output Vital Signs (last 24 hours): Temp Pulse Resp BP Pulse Ox 98.1 F 68 19 136/72 97 03/19/17 06:00 03/19/17 06:00 03/19/17 06:00 03/19/17 06:00 03/19/17 06:00 Intake and Output: 03/19/17 03/19/17 06:59 18:59 Intake Total 240 Output Total 2300 Balance -2059 - Medications Medications: Current Medications Acetaminophen (Tylenol 325mg Tab) 650 mg PO Q6H PRN PRN Reason: Pain, Mild (1-3) Last Admin: 03/18/17 18:42 Dose: 650 mg Albuterol/Ipratropium (Duoneb 3 Mg/0.5 Mg (3 Ml) Ud) 3 ml IH [id number] [facility] Last Admin: 03/19/17 08:15 Dose: 3 ml Albuterol/Ipratropium (Duoneb 3 Mg/0.5 Mg (3 Ml) Ud) 3 ml IH Q2H PRN PRN Reason: Shortness of Breath Amiodarone HCl (Cordarone) 200 mg PO DAILY [facility] Last Admin: 03/18/17 10:49 Dose: 200 mg Atorvastatin Calcium (Lipitor) 10 mg PO DIN [facility] Last Admin: 03/18/17 18:42 Dose: 10 mg Calcium Acetate (Phoslo) 667 mg PO DAILY [facility] Last Admin: 03/18/17 10:49 Dose: 667 mg Digoxin (Lanoxin) 0.125 mg PO 1400 [facility] Last Admin: 03/18/17 14:45 Dose: 0.125 mg Doxercalciferol (Hectorol) 0.5 mcg PO DAILY [facility] Last Admin: 03/18/17 11:43 Dose: 0.5 mcg Furosemide (Lasix) 40 mg PO BID [facility] Last Admin: 03/18/17 18:42 Dose: 40 mg Ceftriaxone Sodium (Rocephin 1 Gram Ivpb) 1 gm in 100 mls @ 100 mls/hr IVPB DAILY [facility] PRN Reason: Protocol Last Admin: 03/18/17 10:48 Dose: 100 mls/hr Levothyroxine Sodium (Synthroid) 100 mcg PO DAILY [facility] Last Admin: 03/18/17 10:50 Dose: 100 mcg Montelukast Sodium (Singulair) 10 mg PO DAILY [facility] Last Admin: 03/18/17 11:16 Dose: 10 mg Pantoprazole Sodium (Protonix Ec Tab) 40 mg PO 0630 [facility] Last Admin: 03/19/17 05:43 Dose: 40 mg Prednisone (Prednisone Tab) 10 mg PO DAILY [facility] Last Admin: 03/18/17 10:50 Dose: 10 mg - Labs Labs: 03/18/17 07:39 03/18/17 07:39 PT 11.3 Seconds (9.9-11.8) 03/16/17 19:25 INR 1.05 (0.93-1.08) 03/16/17 19:25 APTT 26.1 Seconds (23.7-30.8) 03/16/17 19:25 - Constitutional Appears: No Acute Distress - Head Exam Head Exam: ATRAUMATIC - Respiratory Exam Respiratory Exam: Clear to Ausculation Bilateral, NORMAL BREATHING PATTERN - Cardiovascular Exam Cardiovascular Exam: +S1, +S2 - GI/Abdominal Exam GI & Abdominal Exam: Soft, Normal Bowel Sounds - Neurological Exam Neurological Exam: Alert, Awake, Oriented x3 Assessment and Plan - Assessment and Plan (Free Text) Assessment: Gross Hematuria GNR cystitis Chronic heart failure COPD Prostate cancer Hypothyroidism DMII Plan: Patient's urine is now clear. Discontinue IV fluids. CT abd/pelvis shows cholelithiasis, retroperitoneal and retrocrural lymphadenopathy, same as before, and right bladder wall thickening. Will discharge home today. Patient is given a prescription for Augmentin for cystitis He will follow up in the office at end of week. He will continue all of his home medications Patient will followup regarding the prostate cancer with Dr. Carballo and Dr. Louise
[2017-03-19] MEDS: Levothyroxine 100 MCG TAB PO SCH (10:04)
[2017-03-19] MEDS: cefTRIAXone 1 gm 1 GM/100 ML BAG IVPB SCH (10:04)
[2017-03-19 10:05] VITALS: PULSE 65
[2017-03-19] MEDS: Insulin Human NPH/Reg 70/30 Vial(3 ml) SC SCH ×2 (10:05→12:10)
--- NOTE | 2017-03-19 11:30 | PN ---
DATE: 03/19/2017 The patient is in room 276, bed 2. REASON FOR CONSULTATION AND FOLLOWUP: Coronary artery disease, cardiomyopathy, AICD generator change , prostate CA, admitted with hematuria. HISTORY OF PRESENT ILLNESS: The patient is an 87-year-old, known to have coronary artery bypass surg maricarmen, multiple PTCA and stents, hypertension, diabetes, cardiomyopathy, AICD insertion, recent change of AICD battery by Dr. Felton at [facility] about 1 week ago, was admitted with gr oss hematuria. Denies any chest pain, shortness of breath, palpitation. The patient's hematuria has improved now. PHYSICAL EXAMINATION: VITAL SIGNS: Blood pressure 143/60, earlier pressure was 136/72, respiration 19, pulse 65, temperatu re 98.1. HEAD: Normocephalic. EYES: Pupils normal. Conjunctivae slightly pale. NECK: JVP low. Carotid equal. THORAX: AP diameter normal. LUNGS: Clear. CARDIOVASCULAR: S1, S2, systolic murmur, no rub. ABDOMEN: Soft, no tenderness, no organomegaly. Bowel sounds normal. EXTREMITIES: No clubbing, no cyanosis. LABORATORIES: WBC 11.2, hemoglobin 9.1, hematocrit 29.0, platelets 170. Sugar random 267. Sodium 1 34, potassium 4.2, BUN 31, creatinine 1.1, calcium 8.6, phosphorus 3.8, magnesium 2.4. DIAGNOSES: Hematuria, carcinoma of the prostate, coronary artery disease, history of coronary artery bypass surgery, multiple stents, status post automatic implantable cardioverter-defibrillator insert ion, recent battery change, paroxysmal atrial fibrillation. The patient is not on anticoagulation be cause of hematuria, history of deep vein thrombosis. At one time, patient was on Pradaxa. Congestiv e heart failure, history of chronic renal dysfunction, anemia, mild to moderate tricuspid regurgitati on, mild to moderate aortic stenosis, right ventricular systolic pressure 43 mmHg., amiodarone 200 mg daily. PLAN: The patient on amiodarone 200 mg daily, digoxin 0.125 daily, Lasix 40 mg b.i.d., Lipitor 10 mg daily, prednisone 10 mg daily, Protonix 40 mg daily, Rocephin 1 gram IV daily, Synthroid 100 mcg p.o . daily. We will continue present therapy. We will follow with you. Mely Walters MD cc: [id number] TT: 03/19/2017 11:30:14 Confirmation # [id number] Dictation # [id number] en
[2017-03-19 12:16] VITALS: BP 135/74; RESP 18; TEMP 98.2
--- NOTE | 2017-04-09 17:26 | DS ---
BRIEF HISTORY: This is an 87-year-old male with history of chronic congestive heart failure, COPD, BPH, metastatic prostate cancer, hypothyroidism, coronary artery disease with multiple stents and gastritis who presented to the Emergency Room with gross hematuria. The patient also complained of lower abdominal pain. He denied fever or back pain. The patient also has a chronic indwelling Avendano catheter. PHYSICAL EXAMINATION: VITAL SIGNS: On admission, his pulse was 68, blood pressure 135/48, respirations 16, oxygen saturation 99%, temperature 98.5. HEAD: Normocephalic. NECK: JVP flat. HEART: Normal sinus rhythm. ABDOMEN: Soft. Tenderness in the lower abdominal area. HOSPITAL COURSE: The patient was placed on IV fluids, half normal saline 75 mL an hour. He was seen by Dr. Louise who is the urologist and Dr. Carballo who is his oncologist, as well as Dr. Walters and Dr. Chavarria cardiologists, Dr. Lozano lever operator, and Dr. Arias, his telecommunications sales representative. Hemoglobin and hematocrit were closely monitored. CAT scan of the abdomen and pelvis was done, which did not show any new significant findings. The Aevndano catheter was changed and irrigated intermittently. With the irrigation, his urine seemed to clear up. The patient was then discharged home. DISCHARGE DIAGNOSES: Gross hematuria, chronic systolic and diastolic heart failure, chronic obstructive pulmonary disease, hypertension, benign prostatic hypertrophy, metastatic prostate cancer, hypothyroidism, cardiac arrhythmia and coronary artery disease. DISCHARGE MEDICATIONS: Albuterol q. 6 hours as needed, amiodarone 200 mg once a day, Hectorol 0.5 mcg daily, Humulin 70/30 with 20 units before meals and at night, digoxin 125 mcg daily, Lasix 40 mg twice a day, Lipitor 10 mg daily, PhosLo 667 mg once a day, prednisone 5 mg once a day, Protonix 40 mg daily, Singulair 10 mg daily, Synthroid 100 mcg daily. FOLLOWUP: The patient will follow up in the office in 1 week. Sreedhar Polk MD cc: [id number] TT: 04/09/2017 17:25:37 ariel [place]
== END 2017-03-19 13:24 | disposition home or self-care (01) | DRG 690 ==
LOC: ED 18:32 → ERH 20:23 → 2RSO 23:56 → OBSVTOIN 03-17 15:02
PROVIDERS: ADMIT Internal Medicine; ATTEND Internal Medicine
DX: N30.21 Other chronic cystitis with hematuria (principal); N18.4 Chronic kidney disease, stage 4 (severe); N17.9 Acute kidney failure, unspecified; I13.0 Hypertensive heart and chronic kidney disease with heart failure and stage 1 through stage 4 chronic kidney disease, or unspecified chronic kidney disease; I50.22 Chronic systolic (congestive) heart failure; I48.0 Paroxysmal atrial fibrillation; E11.22 Type 2 diabetes mellitus with diabetic chronic kidney disease; E86.0 Dehydration; J44.9 Chronic obstructive pulmonary disease, unspecified; C61 Malignant neoplasm of prostate; D63.1 Anemia in chronic kidney disease; E03.9 Hypothyroidism, unspecified; I25.5 Ischemic cardiomyopathy; I25.10 Atherosclerotic heart disease of native coronary artery without angina pectoris; K80.20 Calculus of gallbladder without cholecystitis without obstruction; K59.00 Constipation, unspecified; K29.70 Gastritis, unspecified, without bleeding; M19.90 Unspecified osteoarthritis, unspecified site; Z79.4 Long term (current) use of insulin; Z79.82 Long term (current) use of aspirin; Z95.1 Presence of aortocoronary bypass graft; Z86.718 Personal history of other venous thrombosis and embolism; Z85.51 Personal history of malignant neoplasm of bladder; Z95.810 Presence of automatic (implantable) cardiac defibrillator; Z95.5 Presence of coronary angioplasty implant and graft; I25.2 Old myocardial infarction

== ENCOUNTER 2017-03-24 21:40 | Emergency (ER) | payer MEDICARE ==
[2017-03-24 21:41] VITALS: PULSE 63
[2017-03-24 21:43] VITALS: BMI 26.2
[2017-03-24 21:51] VITALS: BP 156/78; PULSE 81; RESP 14; TEMP 98.2; O2SAT 98
--- NOTE | 2017-03-24 21:57 | ED PDOC ---
Arrival/HPI - General Chief Complaint: Shortness Of Breath Time Seen by Provider: 03/24/17 21:52 Historian: Patient - History of Present Illness Narrative History of Present Illness (Text): 03/24/17 21:56 Ziggy Amador is an 87 year old male, whose past medical history includes prostate cancer, chronic Schroeder catheter, diabetes, CAD, CHF, and COPD, who presents to the Emergency department complaining of an obstructed Schroeder catheter today. Patient reports associated suprapubic discomfort and notes his last Schroeder change was less than 2 weeks ago. Patient denies any nausea, vomiting , diarrhea, urinary symptoms, headache, fever, chills, or any other complaints. Time/Duration: Other (today) Symptom Onset: Gradual Symptom Course: Unchanged Activities at Onset: Rest, Light Context: Home Past Medical History - Provider Review Nursing Documentation Reviewed: Yes - Infectious Disease Hx of Infectious Diseases: None - Tetanus Immunization Tetanus Immunization: Unknown - Cardiac Hx Cardiac Disorders: Yes Hx Congestive Heart Failure: Yes Hx Pacemaker: Yes - Pulmonary Hx Respiratory Disorders: Yes Hx Asthma: Yes Hx Chronic Obstructive Pulmonary Disease (COPD): Yes - Neurological Hx Neurological Disorder: No - HEENT Hx HEENT Disorder: Yes Hx Cataracts: Yes (WITH b/t SURGERY) - Renal Hx Renal Disorder: Yes Hx Renal Failure: Yes - Endocrine/Metabolic Hx Endocrine Disorders: Yes Hx Diabetes Mellitus Type 1: Yes Hx Hypothyroidism: Yes - Hematological/Oncological Hx Blood Disorders: Yes Hx Anemia: Yes (in past with blood transfusion) 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) - Integumentary Hx Dermatological Disorder: No - Musculoskeletal/Rheumatological Hx Musculoskeletal Disorders: Yes Hx Arthritis: Yes Hx Falls: Yes Hx Unsteady Gait: Yes (uses cane) - Gastrointestinal Hx Gastrointestinal Disorders: No - Genitourinary/Gynecological Hx Genitourinary Disorders: Yes Hx Urinary Tract Infection: Yes - Psychiatric Hx Psychophysiologic Disorder: No Hx Substance Use: No - Surgical History Hx Cardiac Catheterization: Yes (w/ 4 stents) Hx Coronary Stent: Yes (X4) Hx Open Heart Surgery: Yes Other/Comment: PACEMAKER/AICD,MULTIPLE ANGIOPLASTIES,CATARACT SURGERY,CARDIAC STENTS X 4,QUADRUPLE BYPASS - Anesthesia Hx Anesthesia: Yes Hx Anesthesia Reactions: No Hx Malignant Hyperthermia: No - Suicidal Assessment Feels Threatened In Home Enviroment: No Family/Social History - Physician Review Nursing Documentation Reviewed: Yes Family/Social History: No Known Family HX Smoking Status: Never Smoked Hx Alcohol Use: No Hx Substance Use: No Hx Substance Use Treatment: No Allergies/Home Meds Allergies/Adverse Reactions: Allergies Iodinated Contrast Media - Oral and Allergy (Verified 03/24/17 21:44) ANAPHYLAXIS levofloxacin [From Levaquin] Allergy (Verified 03/24/17 21:44) ANAPHYLAXIS Home Medications: Home Meds Medication Instructions Recorded Confirmed Amiodarone HCl 200 mg PO DAILY 06/14/12 03/24/17 Montelukast [Singulair] 10 mg PO DAILY 06/14/12 03/24/17 Pantoprazole [Protonix EC Tab] 40 mg PO DAILY 05/30/14 03/24/17 Insulin Human NPH/Reg [HumuLIN 20 units SC ACHS 04/09/16 03/24/17 70/30 (NPH/Reg)] Aspirin [Ecotrin] 81 mg PO DAILY 07/25/16 03/24/17 Calcium Acetate [Phoslo] 667 mg PO DAILY 07/25/16 03/24/17 Digoxin [Lanoxin] 0.125 mg PO DAILY 07/25/16 03/24/17 Furosemide [Lasix] 40 mg PO BID 07/25/16 03/24/17 Levothyroxine [Synthroid] 100 mcg PO DAILY 07/25/16 03/24/17 Simvastatin 20 mg PO DAILY 07/25/16 03/24/17 predniSONE [predniSONE Tab] 10 mg PO DAILY 07/25/16 03/24/17 Albuterol 0.083% [Albuterol 0.083% 3 ml IH QID 11/19/16 03/24/17 Inhal Raissa (2.5 mg/3 ml) UD] Abiraterone Acetate [Zytiga] 250 mg PO MWF 03/16/17 03/24/17 Review of Systems - Physician Review All systems were reviewed & negative as marked: Yes - Review of Systems Constitutional: Normal. absent: Fevers Eyes: Normal ENT: Normal Respiratory: Normal. absent: SOB, Cough Cardiovascular: Normal. absent: Chest Pain Gastrointestinal: Abdominal Pain. absent: Diarrhea, Nausea, Vomiting Genitourinary Male: Other (+obstructed schroeder catheter). absent: Dysuria, Frequency, Hematuria, Urinary Output Changes Musculoskeletal: Normal Skin: Normal Neurological: Normal Endocrine: Normal Hemo/Lymphatic: Normal Psychiatric: Normal Physical Exam Vital Signs Reviewed: Yes Vital Signs Temp Pulse Resp BP Pulse Ox 03/24/17 21:48 98.2 F 81 14 156/78 H 98 Temperature: Afebrile Blood Pressure: Normal Pulse: Regular Respiratory Rate: Normal Appearance: Positive for: Well-Appearing, Non-Toxic, Comfortable Pain Distress: None Mental Status: Positive for: Alert and Oriented X 3 - Systems Exam Head: Present: Atraumatic, Normocephalic Pupils: Present: PERRL Extroacular Muscles: Present: EOMI Conjunctiva: Present: Normal Mouth: Present: Moist Mucous Membranes Neck: Present: Normal Range of Motion Respiratory/Chest: Present: Clear to Auscultation, Good Air Exchange. No: Respiratory Distress, Accessory Muscle Use Cardiovascular: Present: Regular Rate and Rhythm, Normal S1, S2. No: Murmurs Abdomen: Present: Distention (Mild suprapubic distention), Normal Bowel Sounds. No: Tenderness, Peritoneal Signs Back: Present: Normal Inspection Upper Extremity: Present: Normal Inspection. No: Cyanosis, Edema Lower Extremity: Present: Normal Inspection. No: Edema Neurological: Present: GCS=15, CN II-XII Intact, Speech Normal Skin: Present: Warm, Dry, Normal Color. No: Rashes Psychiatric: Present: Alert, Oriented x 3, Normal Insight, Normal Concentration Medical Decision Making ED Course and Treatment: 03/24/17 21:56 Impression: 87 year old male complaining of obstructed schroeder catheter with associated suprapubic discomfort. Differential Diagnosis include but are not limited to: obstructed Schroeder catheter Plan: -- Schroeder catheter change -- Reassess and disposition Progress Notes: Schroeder catheter changed by RN without complications. Draining well, pt with immediate relief. 03/24/17 22:[address] Polk, who is aware and agrees with plan. States pt is stable for d/c home and outpt f/u in his office/urologist. Pt and family agreeable with plan. - Scribe Statement The provider has reviewed the documentation as recorded by the Scribpratibha Luna All medical record entries made by the Scribe were at my direction and personally dictated by me. I have reviewed the chart and agree that the record accurately reflects my personal performance of the history, physical exam, medical decision making, and the department course for this patient. I have also personally directed, reviewed, and agree with the discharge instructions and disposition. Disposition/Present on Arrival - Present on Arrival Any Indicators Present on Arrival: No History of DVT/PE: Yes History of Uncontrolled Diabetes: No Urinary Catheter: Yes History of Decub. Ulcer: No History Surgical Site Infection Following: None - Disposition Have Diagnosis and Disposition been Completed?: Yes Diagnosis: Obstructed Schroeder catheter, Encounter for Schroeder catheter replacement Disposition: HOME/ ROUTINE Disposition Time: 22:34 Patient Plan: Discharge Condition: STABLE Additional Instructions: Maintain schroeder catheter/leg bag/follow up with / this week Referrals: Thanh Polk MD [Primary Care Provider] - Follow up with primary
== END 2017-03-24 22:50 | disposition home or self-care (01) ==
LOC: ED 21:40
DX: Z46.6 Encounter for fitting and adjustment of urinary device (principal); E10.9 Type 1 diabetes mellitus without complications; J44.9 Chronic obstructive pulmonary disease, unspecified; I25.10 Atherosclerotic heart disease of native coronary artery without angina pectoris; Z85.46 Personal history of malignant neoplasm of prostate

== ENCOUNTER 2017-03-25 09:10 | Emergency (ER) | payer MEDICARE ==
[2017-03-25 09:10] VITALS: PULSE 63; BMI 26.2
[2017-03-25 09:18] VITALS: RESP 16; TEMP 98.2; O2SAT 98
--- NOTE | 2017-03-25 10:03 | ED PDOC ---
Arrival/HPI - General Chief Complaint: Male Genitourinary Time Seen by Provider: 03/25/17 09:20 Historian: Patient - History of Present Illness Narrative History of Present Illness (Text): 03/25/17 10:01 Patient is an 87 yo male presents to ED with lower abdominal "spasms" associated with diminished drainage from his schroeder catheter over the past several hours. Patient was evaluated in the ED last night for similar symptoms, although he states he had more pain. He was treated with change in his schroeder catheter during prior ED visit and reported complete resolution of his symptoms. He reports that urine has been bloody for the past several weeks, although does report that it had cleared for a brief period earlier in the week after his most recent hospitalization. Currently denies any chest pain or acute shortness of breath. Past Medical History - Infectious Disease Hx of Infectious Diseases: None - Tetanus Immunization Tetanus Immunization: Unknown - Cardiac Hx Cardiac Disorders: Yes Hx Congestive Heart Failure: Yes Hx Pacemaker: Yes - Pulmonary Hx Respiratory Disorders: Yes Hx Asthma: Yes Hx Chronic Obstructive Pulmonary Disease (COPD): Yes - Neurological Hx Neurological Disorder: No - HEENT Hx HEENT Disorder: Yes Hx Cataracts: Yes (WITH b/t SURGERY) - Renal Hx Renal Disorder: Yes Hx Renal Failure: Yes - Endocrine/Metabolic Hx Endocrine Disorders: Yes Hx Diabetes Mellitus Type 1: Yes Hx Hypothyroidism: Yes - Hematological/Oncological Hx Blood Disorders: Yes Hx Anemia: Yes (in past with blood transfusion) 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) - Integumentary Hx Dermatological Disorder: No - Musculoskeletal/Rheumatological Hx Musculoskeletal Disorders: Yes Hx Arthritis: Yes Hx Falls: Yes Hx Unsteady Gait: Yes (uses cane) - Gastrointestinal Hx Gastrointestinal Disorders: No - Genitourinary/Gynecological Hx Genitourinary Disorders: Yes Hx Urinary Tract Infection: Yes - Psychiatric Hx Psychophysiologic Disorder: No Hx Substance Use: No - Surgical History Hx Cardiac Catheterization: Yes (w/ 4 stents) Hx Coronary Stent: Yes (X4) Hx Open Heart Surgery: Yes Other/Comment: PACEMAKER/AICD,MULTIPLE ANGIOPLASTIES,CATARACT SURGERY,CARDIAC STENTS X 4,QUADRUPLE BYPASS - Anesthesia Hx Anesthesia: Yes - Suicidal Assessment Feels Threatened In Home Enviroment: No Family/Social History Family/Social History: Unknown Family HX Smoking Status: Never Smoked Hx Alcohol Use: No Hx Substance Use: No Hx Substance Use Treatment: No Allergies/Home Meds Allergies/Adverse Reactions: Allergies Iodinated Contrast Media - Oral and Allergy (Verified 03/25/17 09:13) ANAPHYLAXIS levofloxacin [From Levaquin] Allergy (Verified 03/25/17 09:13) ANAPHYLAXIS Home Medications: Home Meds Medication Instructions Recorded Confirmed Amiodarone HCl 200 mg PO DAILY 06/14/12 03/25/17 Montelukast [Singulair] 10 mg PO DAILY 06/14/12 03/25/17 Pantoprazole [Protonix EC Tab] 40 mg PO DAILY 05/30/14 03/25/17 Insulin Human NPH/Reg [HumuLIN 20 units SC ACHS 04/09/16 03/25/17 70/30 (NPH/Reg)] Aspirin [Ecotrin] 81 mg PO DAILY 07/25/16 03/25/17 Calcium Acetate [Phoslo] 667 mg PO DAILY 07/25/16 03/25/17 Digoxin [Lanoxin] 0.125 mg PO DAILY 07/25/16 03/25/17 Furosemide [Lasix] 40 mg PO BID 07/25/16 03/25/17 Levothyroxine [Synthroid] 100 mcg PO DAILY 07/25/16 03/25/17 Simvastatin 20 mg PO DAILY 07/25/16 03/25/17 predniSONE [predniSONE Tab] 5 mg PO DAILY 07/25/16 03/25/17 Albuterol 0.083% [Albuterol 0.083% 3 ml IH QID 11/19/16 03/25/17 Inhal Raissa (2.5 mg/3 ml) UD] Abiraterone Acetate [Zytiga] 250 mg PO MWF 03/16/17 03/25/17 Review of Systems - Review of Systems Constitutional: absent: Fevers Eyes: absent: Vision Changes ENT: absent: Hearing Changes Respiratory: absent: SOB, Cough Cardiovascular: absent: Chest Pain Gastrointestinal: Abdominal Pain (lower abdominal discomfort). absent: Diarrhea , Nausea, Vomiting Genitourinary Male: Hematuria, Urinary Output Changes Musculoskeletal: absent: Back Pain, Neck Pain Skin: absent: Rash Neurological: absent: Headache, Dizziness, Focal Weakness Endocrine: absent: Polyuria Physical Exam - Physical Exam Narrative Physical Exam (Text): Head: Atraumatic. Normocephalic. Eyes: PERRL. EOMI. Conjunctivae are not pale. ENT: Mucous membranes are moist and intact. Oropharynx is clear and symmetric. Neck: Supple. Full ROM. No meningeal signs. Cardiovascular: Regular rate. Regular rhythm. Systolic murmur. Pulmonary/Chest: No evidence of respiratory distress. No accessory muscle usage. Mild rales at bases. Abdominal: Soft with mild suprapubic discomfort on palpation. No rebound or guarding, no pulsatile masses. Back: No CVA tenderness. Genitourinary: schroeder catheter in place with blood tinged urine less than 100 cc in schroeder bag with blood clots noted, no testicular or penile erythema or bleeding or edema Extremities: No edema. No cyanosis. No clubbing. Full range of motion in all extremities. No calf tenderness. Skin: Skin is pale. Skin tear to right arm not actively bleeding, clean, no edema. Neurological: Alert, awake, and oriented to person, place, time, and situation. Normal speech. Motor and sensory exam intact. Psychiatric: Good eye contact. Normal interaction, affect, and behavior. Vital Signs Reviewed: Yes Vital Signs Temp Pulse Resp BP Pulse Ox 03/25/17 11:20 68 16 137/56 L 98 03/25/17 09:15 98.2 F 63 16 133/62 98 Temperature: Afebrile Respiratory Rate: Normal Appearance: Positive for: Uncomfortable Pain Distress: Mild Mental Status: Positive for: Alert and Oriented X 3 Medical Decision Making ED Course and Treatment: 03/25/17 11:33 Patient with past medical hx of prostate CA and indwelling schroeder catheter, presents with decreased flow from catheter over past several hours and beginning of "cramping" in lower abdomen. Attempt to flush catheter with some drainage but persistent discomfort noted. Thus schroeder catheter changed by RN with no difficulty there is return of urine, blood tinged. He has had chronic hematuria and has had follow-up with Dr. Louise/Aleja. Curretnly afebrile, nontoxic appearing. He has significant past cardiac history but denies any acute chest pain or shortness of breath, he is not in respiratory distress here in the ED currently. Anemia is noted on labs, but at baseline and he is not hypotensive or tachycardic. Cr 1.5, he has prior hx of renal insufficiency. I reviewed labs with Dr. Marcus who follow-up BUN/Cr. Urine culture will be sent , will be followed-up by Dr. Marcus. Patient currently on course of antibiotics as per patient and PMD, he will continue this. As he is afebrile, comfortable, with no abdominal pain and adequate drainage from schroeder catheter, will discharge with follow-up with Dr. Macrus, return to ED for any worsening of symptoms. - Lab Interpretations Lab Results: 03/25/17 10:19 03/25/17 10:19 Lab Results 03/25/17 11:48: Urine Color Light red, Urine Appearance Cloudy, Urine pH 6.5, Ur Specific [place] 1.010, Urine Protein Trace H, Urine Glucose (UA) Negative, Urine Ketones Negative, Urine Blood Large H, Urine Nitrate Negative, Urine Bilirubin Negative, Urine Urobilinogen 0.2, Ur Leukocyte Esterase Large H, Urine RBC Tntc, Urine WBC 10 - 15, Ur Epithelial Cells 0 - 2, Urine Bacteria Few , Urine Other Uyeast 03/25/17 10:19: PT 11.7, INR 1.08, APTT 27.1 03/25/17 10:19: Sodium 136, Potassium 3.8, Chloride 96 L, Carbon Dioxide 29, Anion Gap 15, BUN 48 H, Creatinine 1.5 H, Est GFR ( Amer) 54, Est GFR ( Non-Af Amer) 44, Random Glucose 182 H, Calcium 8.6, Total Bilirubin 0.5, AST 56 , ALT 63 H, Alkaline Phosphatase 89, Total Protein 6.2, Albumin 3.7, Globulin 2.6, Albumin/Globulin Ratio 1.4 03/25/17 10:19: WBC 10.3, RBC 3.26 L, Hgb 9.0 L, Hct 28.7 L, MCV 88.0, MCH 27.6 , MCHC 31.4, RDW 14.8 H, Plt Count 212, MPV 9.5, Gran % 82.6 H, Lymph % (Auto) 7.5 L, Dent % (Auto) 8.6 H, Eos % (Auto) 0.9 L, Baso % (Auto) 0.4, Gran # 8.54 H , Lymph # 0.8 L, Dent # 0.9 H, Eos # 0.1, Baso # 0.04 Disposition/Present on Arrival - Present on Arrival Any Indicators Present on Arrival: Yes History of DVT/PE: Yes History of Uncontrolled Diabetes: No Urinary Catheter: Yes History of Decub. Ulcer: No History Surgical Site Infection Following: None - Disposition Have Diagnosis and Disposition been Completed?: Yes Diagnosis: Urinary retention, Hematuria Disposition: HOME/ ROUTINE Disposition Time: 10:45 Patient Plan: Discharge Condition: GOOD Discharge Instructions (ExitCare): Urinary Retention in Men (ED), Schroeder Catheter Placement and Care (ED), Acute Hematuria (ED), Urinary Leg Bag (GEN) Additional Instructions: Follow-up with Dr. Louise/Aleja and Dr. Marcus as directed. For any fever, any abdominal pain, any back pain, any chest pain or shortness of breath, any lightheadedness or dizziness, any poor drainage from catheter, any persistent or worsening of symptoms, get rechecked immediately. Continue your antibiotics as directed. Referrals: Thanh Polk MD [Primary Care Provider] - Follow up with primary
[2017-03-25 10:20] LABS: ADD MANUAL DIFF? NO
[2017-03-25 10:23] LABS: BASO # 0.04 K/mm3 (0.0-2.0); BASO % 0.4 % (0.0-3.0); EOS # 0.1 (0.0-0.7); EOS % 0.9 % (1.5-5.0); GRAN # 8.54 (1.4-6.5); GRAN % 82.6 % (50.0-68.0); HEMATOCRIT 28.7 % (42.0-52.0); LYMPH # 0.8 (1.2-3.4); LYMPH % 7.5 % (22.0-35.0); MEAN CORPUSCULAR HEMOGLOBIN 27.6 pg (25.0-35.0); MEAN CORPUSCULAR HGB CONC 31.4 g/dl (31.0-37.0); MEAN PLATELET VOLUME 9.5 fl (7.0-11.0); MONO # 0.9 (0.1-0.6); MONO % 8.6 % (1.0-6.0); PLATELET COUNT 212 10^3/uL (120.0-450.0); RED CELL DISTRIBUTION WIDTH 14.8 % (11.5-14.5); WHITE BLOOD COUNT 10.3 10^3/ul (4.5-11.0)
[2017-03-25 10:32] LABS: ALB/GLOB RATIO 1.4 (1.1-1.8); BILIRUBIN,TOTAL 0.5 mg/dL (0.2-1.3); CALCIUM 8.6 mg/dL (8.4-10.5); POTASSIUM 3.8 mmol/L (3.6-5.0); TOTAL PROTEIN 6.2 g/dL (5.8-8.3)
[2017-03-25 10:34] LABS: INR 1.08 (0.93-1.08); PARTIAL THROMBOPLASTIN TIME 27.1 Seconds (23.7-30.8)
[2017-03-25 11:53] LABS: PH,URINE 6.5 (4.7-8.0); URINE BILIRUBIN NEGATIVE (NEGATIVE); URINE BLOOD LARGE (NEGATIVE); URINE GLUCOSE (UA) NEGATIVE (NEGATIVE); URINE KETONE NEGATIVE (NEGATIVE); URINE LEUKOCYTE ESTERASE LARGE Leu/uL (NEGATIVE); URINE PROTEIN TRACE mg/dL (<30 mg/dL); URINE UROBILINOGEN 0.2 E.U./dL (<1 E.U./dL)
[2017-03-25 11:56] LABS: URINE APPEARANCE CLOUDY (CLEAR); URINE COLOR LIGHT RED (YELLOW)
[2017-03-25 11:57] VITALS: BP 137/56; PULSE 68
[2017-03-25 12:02] LABS: URINE RBC TNTC /hpf (0-2)
[2017-03-25 12:03] LABS: URINE BACTERIA FEW (NEG); URINE EPITHELIAL CELLS 0 - 2 /hpf (0-5)
== END 2017-03-25 12:17 | disposition home or self-care (01) ==
LOC: ED 09:10
DX: R33.9 Retention of urine, unspecified (principal); R31.9 Hematuria, unspecified; E10.9 Type 1 diabetes mellitus without complications; Z85.46 Personal history of malignant neoplasm of prostate

== ENCOUNTER 2017-03-26 06:03 | Inpatient (IN) | payer MEDICARE ==
[2017-03-26 06:10] VITALS: BMI 23.9
--- NOTE | 2017-03-26 06:13 | ED PDOC ---
Arrival/HPI - General Historian: Patient - History of Present Illness Time/Duration: Other (today) Symptom Onset: Gradual Symptom Course: Unchanged Activities at Onset: Rest, Light Context: Home <Jai Smith - Last Filed: 03/26/17 06:36> <Venu Sequeira - Last Filed: 03/26/17 07:28> - General Time Seen by Provider: 03/26/17 06:05 - History of Present Illness Narrative History of Present Illness (Text): 03/26/17 06:12 Ziggy Amador is an 87 year old male, whose past medical history includes prostate cancer, chronic Schroeder catheter, diabetes, CAD, CHF, and COPD, who presents to the Emergency department complaining of an obstructed Schroeder catheter today. Patient was seen in the Emergency department yesterday for similar complaints, had his Schroeder catheter changes, and was discharged home. Patient states his Schroeder catheter is obstructed again and reports associated suprapubic discomfort. Patient also reports hematuria. Patient denies any fever , chills, chest pain, shortness of breath, nausea, vomiting, diarrhea, back pain, neck pain, headache, dizziness, or any other complaints. (Jai Smith) Past Medical History - Provider Review Nursing Documentation Reviewed: Yes - Infectious Disease Hx of Infectious Diseases: None - Tetanus Immunization Tetanus Immunization: Unknown - Cardiac Hx Cardiac Disorders: Yes Hx Congestive Heart Failure: Yes Hx Pacemaker: Yes - Pulmonary Hx Respiratory Disorders: Yes Hx Asthma: Yes Hx Chronic Obstructive Pulmonary Disease (COPD): Yes - Neurological Hx Neurological Disorder: No - HEENT Hx HEENT Disorder: Yes Hx Cataracts: Yes (WITH b/t SURGERY) - Renal Hx Renal Disorder: Yes Hx Renal Failure: Yes - Endocrine/Metabolic Hx Endocrine Disorders: Yes Hx Diabetes Mellitus Type 1: Yes Hx Hypothyroidism: Yes - Hematological/Oncological Hx Blood Disorders: Yes Hx Anemia: Yes (in past with blood transfusion) 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) - Integumentary Hx Dermatological Disorder: No - Musculoskeletal/Rheumatological Hx Musculoskeletal Disorders: Yes Hx Arthritis: Yes Hx Falls: Yes Hx Unsteady Gait: Yes (uses cane) - Gastrointestinal Hx Gastrointestinal Disorders: No - Genitourinary/Gynecological Hx Genitourinary Disorders: Yes Hx Urinary Tract Infection: Yes - Psychiatric Hx Psychophysiologic Disorder: No Hx Substance Use: No - Surgical History Hx Cardiac Catheterization: Yes (w/ 4 stents) Hx Coronary Stent: Yes (X4) Hx Open Heart Surgery: Yes Other/Comment: PACEMAKER/AICD,MULTIPLE ANGIOPLASTIES,CATARACT SURGERY,CARDIAC STENTS X 4,QUADRUPLE BYPASS - Anesthesia Hx Anesthesia: Yes - Suicidal Assessment Feels Threatened In Home Enviroment: No <Jai Smith - Last Filed: 03/26/17 06:36> Family/Social History - Physician Review Nursing Documentation Reviewed: Yes Family/Social History: No Known Family HX Smoking Status: Never Smoked Hx Alcohol Use: No Hx Substance Use: No Hx Substance Use Treatment: No <Jai Smith - Last Filed: 03/26/17 06:36> Allergies/Home Meds <Jai Smith - Last Filed: 03/26/17 06:36> <Venu Sequeira - Last Filed: 03/26/17 07:28> Allergies/Adverse Reactions: Allergies Iodinated Contrast Media - Oral and Allergy (Verified 03/26/17 06:10) ANAPHYLAXIS levofloxacin [From Levaquin] Allergy (Verified 03/26/17 06:10) ANAPHYLAXIS Home Medications: Home Meds Medication Instructions Recorded Confirmed Amiodarone HCl 200 mg PO DAILY 06/14/12 03/26/17 Montelukast [Singulair] 10 mg PO DAILY 06/14/12 03/26/17 Pantoprazole [Protonix EC Tab] 40 mg PO DAILY 05/30/14 03/26/17 Insulin Human NPH/Reg [HumuLIN 20 units SC ACHS 04/09/16 03/26/17 70/30 (NPH/Reg)] Aspirin [Ecotrin] 81 mg PO DAILY 07/25/16 03/26/17 Calcium Acetate [Phoslo] 667 mg PO DAILY 07/25/16 03/26/17 Digoxin [Lanoxin] 0.125 mg PO DAILY 07/25/16 03/26/17 Furosemide [Lasix] 40 mg PO BID 07/25/16 03/26/17 Levothyroxine [Synthroid] 100 mcg PO DAILY 07/25/16 03/26/17 Simvastatin 20 mg PO DAILY 07/25/16 03/26/17 predniSONE [predniSONE Tab] 5 mg PO DAILY 07/25/16 03/26/17 Albuterol 0.083% [Albuterol 0.083% 3 ml IH QID 11/19/16 03/26/17 Inhal Raissa (2.5 mg/3 ml) UD] Abiraterone Acetate [Zytiga] 250 mg PO MWF 03/16/17 03/26/17 Review of Systems - Physician Review All systems were reviewed & negative as marked: Yes - Review of Systems Constitutional: Normal. absent: Fevers Eyes: Normal ENT: Normal Respiratory: Normal. absent: SOB, Cough Cardiovascular: Normal. absent: Chest Pain Gastrointestinal: Abdominal Pain. absent: Diarrhea, Nausea, Vomiting Genitourinary Male: Urinary Output Changes (+urinary retention). absent: Dysuria, Frequency, Hematuria Musculoskeletal: Normal. absent: Back Pain, Neck Pain Skin: Normal. absent: Rash Neurological: Normal. absent: Headache, Dizziness Endocrine: Normal Hemo/Lymphatic: Normal Psychiatric: Normal <Jai Smith - Last Filed: 03/26/17 06:36> Physical Exam Vital Signs Reviewed: Yes Temperature: Afebrile Blood Pressure: Normal Pulse: Regular Respiratory Rate: Normal Appearance: Positive for: Well-Appearing, Non-Toxic, Comfortable Pain Distress: None Mental Status: Positive for: Alert and Oriented X 3 - Systems Exam Head: Present: Atraumatic, Normocephalic Pupils: Present: PERRL Extroacular Muscles: Present: EOMI Conjunctiva: Present: Normal Mouth: Present: Moist Mucous Membranes Neck: Present: Normal Range of Motion Respiratory/Chest: Present: Clear to Auscultation, Good Air Exchange. No: Respiratory Distress, Accessory Muscle Use Cardiovascular: Present: Regular Rate and Rhythm, Normal S1, S2. No: Murmurs Abdomen: Present: Distention (Suprapubic fullness), Normal Bowel Sounds. No: Tenderness, Peritoneal Signs Back: Present: Normal Inspection Upper Extremity: Present: Normal Inspection. No: Cyanosis, Edema Lower Extremity: Present: Normal Inspection. No: Edema Neurological: Present: GCS=15, CN II-XII Intact, Speech Normal Skin: Present: Warm, Dry, Normal Color. No: Rashes Psychiatric: Present: Alert, Oriented x 3, Normal Insight, Normal Concentration <Jai Smith - Last Filed: 03/26/17 06:36> Medical Decision Making <Jai Smith - Last Filed: 03/26/17 06:36> <Venu Sequeira - Last Filed: 03/26/17 07:28> ED Course and Treatment: 03/26/17 06:12 Impression: 87 year old male presented for obstructed Schroeder catheter and hematuria today. Plan: -- Labs -- Urinalysis -- Schroeder catheter change -- Reassess and disposition Prior Visits: Notes and results from previous visits were reviewed. On 03/25/2017, pt was seen in the Emergency department for diminished urine output and bladder spasms. Pt had schroeder catheter chanhe. labwork, and d/c home with PMD/urology f/u. Progress Notes: 03/26/17 07:[address] Sequeira, pending labs, re-assessment, and final disposition. (Jai Smith) 03/26/17 06:54 Patient was turned over to me by . Patient has a chronic Schroeder catheter with hematuria. There is gross blood and clots. This is the patient's third visit in the last 3 days for similar complaints. The catheter has been changed and is currently draining grossly bloody urine with clots. PMD will be called to place on observation for urology consultation and possible cystoscopy. CBI will be begun (Venu Sequeira) - Lab Interpretations Lab Results: 03/26/17 06:52 03/26/17 06:52 Lab Results 03/26/17 06:52: Sodium 135, Potassium 3.6, Chloride 98, Carbon Dioxide 29, Anion Gap 12, BUN 50 H, Creatinine 1.5 H, Est GFR ( Amer) 54, Est GFR ( Non-Af Amer) 44, Random Glucose 255 H, Calcium 8.8, Total Bilirubin 0.5, AST 49 , ALT 65 H, Alkaline Phosphatase 95, Total Protein 6.1, Albumin 3.6, Globulin 2.6, Albumin/Globulin Ratio 1.4 03/26/17 06:52: PT 11.6, INR 1.07, APTT 25.6 03/26/17 06:52: WBC 8.6, RBC 3.25 L, Hgb 8.9 L, Hct 28.5 L, MCV 87.7, MCH 27.4, MCHC 31.2, RDW 14.8 H, Plt Count 220, MPV 9.6, Gran % 67.7, Lymph % (Auto) 19.7 L, [place] % (Auto) 10.7 H, Eos % (Auto) 1.4 L, Baso % (Auto) 0.5, Gran # 5.83, Lymph # 1.7, [place] # 0.9 H, Eos # 0.1, Baso # 0.04 - Scribe Statement The provider has reviewed the documentation as recorded by the Scribe <Jai Smith - Last Filed: 03/26/17 06:36> <Venu Sequeira - Last Filed: 03/26/17 07:28> - Scribe Statement Danii Luna All medical record entries made by the Scribe were at my direction and personally dictated by me. I have reviewed the chart and agree that the record accurately reflects my personal performance of the history, physical exam, medical decision making, and the department course for this patient. I have also personally directed, reviewed, and agree with the discharge instructions and disposition. (Jai Smith) Disposition/Present on Arrival - Present on Arrival History of DVT/PE: Yes History of Uncontrolled Diabetes: No Urinary Catheter: Yes History Surgical Site Infection Following: None <Jai mSith - Last Filed: 03/26/17 06:36> - Present on Arrival Any Indicators Present on Arrival: No History of DVT/PE: Yes History of Uncontrolled Diabetes: No Urinary Catheter: Yes History of Decub. Ulcer: No History Surgical Site Infection Following: None - Disposition Have Diagnosis and Disposition been Completed?: Yes Disposition Time: 07:05 Patient Plan: Observation <Venu Sequeira - Last Filed: 03/26/17 07:28> - Disposition Diagnosis: Hematuria, Renal insufficiency, Prostate cancer, Urinary retention, Renal failure, Hyperglycemia, Dehydration Disposition: HOSPITALIZED Condition: FAIR
[2017-03-26 06:53] LABS: ADD MANUAL DIFF? NO
[2017-03-26 07:00] LABS: BASO # 0.04 K/mm3 (0.0-2.0); BASO % 0.5 % (0.0-3.0); EOS # 0.1 (0.0-0.7); EOS % 1.4 % (1.5-5.0); GRAN # 5.83 (1.4-6.5); GRAN % 67.7 % (50.0-68.0); HEMATOCRIT 28.5 % (42.0-52.0); LYMPH # 1.7 (1.2-3.4); LYMPH % 19.7 % (22.0-35.0); MEAN CELL VOLUME 87.7 fL (80.0-105.0); MEAN CORPUSCULAR HEMOGLOBIN 27.4 pg (25.0-35.0); MEAN CORPUSCULAR HGB CONC 31.2 g/dl (31.0-37.0); MEAN PLATELET VOLUME 9.6 fl (7.0-11.0); MONO # 0.9 (0.1-0.6); MONO % 10.7 % (1.0-6.0); PLATELET COUNT 220 10^3/uL (120.0-450.0); RED CELL DISTRIBUTION WIDTH 14.8 % (11.5-14.5); WHITE BLOOD COUNT 8.6 10^3/ul (4.5-11.0)
[2017-03-26 07:11] LABS: INR 1.07 (0.93-1.08); PARTIAL THROMBOPLASTIN TIME 25.6 Seconds (23.7-30.8)
[2017-03-26 07:15] LABS: URINE BILIRUBIN SMALL (NEGATIVE); URINE BLOOD LARGE (NEGATIVE); URINE GLUCOSE (UA) 250 mg/dL (NEGATIVE); URINE KETONE TRACE mg/dL (NEGATIVE); URINE LEUKOCYTE ESTERASE SMALL Leu/uL (NEGATIVE); URINE PROTEIN >=300 mg/dL (<30 mg/dL)
[2017-03-26 07:21] LABS: ALB/GLOB RATIO 1.4 (1.1-1.8); BILIRUBIN,TOTAL 0.5 mg/dL (0.2-1.3); CALCIUM 8.8 mg/dL (8.4-10.5); POTASSIUM 3.6 mmol/L (3.6-5.0); TOTAL PROTEIN 6.1 g/dL (5.8-8.3)
[2017-03-26 07:28] LABS: URINE APPEARANCE TURBID (CLEAR); URINE COLOR DARK RED (YELLOW)
[2017-03-26 07:33] LABS: URINE RBC TNTC /hpf (0-2)
[2017-03-26 07:34] LABS: URINE BACTERIA SMALL (NEG)
--- NOTE | 2017-03-26 09:10 | CP.PCM.HP ---
History of Present Illness - History of Present Illness History of Present Illness: 87 year old male with history of hypertension, COPD, CAD s/p multiple angioplasties, cardiac arrhythmia, Chronic systolic heart failure, metastatic prostate cancer presents to the Emergency Room with hematuria. Patient went to the ER about 2 days ago for hematuria and bladder spasms. Schroeder catheter was changed, hematuria cleared up, and patient was sent home. Today, the patient says that again he was experiencing bladder spasms and hematuria. He denies chest pain or SOB. Present on Admission - Present on Admission Any Indicators Present on Admission: No History of DVT/PE: No History of Uncontrolled Diabetes: No Urinary Catheter: Yes Decubitus Ulcer Present: No Review of Systems - Constitutional Constitutional: absent: Chills, Fever - Cardiovascular Cardiovascular: absent: Chest Pain, Diaphoresis, Dyspnea - Respiratory Respiratory: absent: Cough, Dyspnea, Stridor - Gastrointestinal Gastrointestinal: As Per HPI - Genitourinary Genitourinary: As Per HPI Past Patient History - Infectious Disease Hx of Infectious Diseases: None - Tetanus Immunizations Tetanus Immunization: Unknown - Past Social History Smoking Status: Never Smoked - CARDIAC Hx Cardiac Disorders: Yes Hx Congestive Heart Failure: Yes Hx Pacemaker: Yes - PULMONARY Hx Respiratory Disorders: Yes Hx Asthma: Yes Hx Chronic Obstructive Pulmonary Disease (COPD): Yes - NEUROLOGICAL Hx Neurological Disorder: No - HEENT Hx HEENT Problems: Yes Hx Cataracts: Yes (WITH b/t SURGERY) - RENAL Hx Chronic Kidney Disease: Yes Hx Renal Failure: Yes - ENDOCRINE/METABOLIC Hx Endocrine Disorders: Yes Hx Diabetes Mellitus Type 2: Yes Hx Hypothyroidism: Yes - HEMATOLOGICAL/ONCOLOGICAL Hx Blood Disorders: Yes Hx Anemia: Yes (in past with blood transfusion) 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) - INTEGUMENTARY Hx Dermatological Problems: No - MUSCULOSKELETAL/RHEUMATOLOGICAL Hx Musculoskeletal Disorders: Yes Hx Arthritis: Yes Hx Falls: Yes Hx Unsteady Gait: Yes (uses cane) - GASTROINTESTINAL Hx Gastrointestinal Disorders: No - GENITOURINARY/GYNECOLOGICAL Hx Genitourinary Disorders: Yes Hx Hematuria: Yes Hx Prostate Cancer: Yes Hx Urinary Tract Infection: Yes - PSYCHIATRIC Hx Psychophysiologic Disorder: No Hx Substance Use: No - SURGICAL HISTORY Hx Cardiac Catheterization: Yes (w/ 4 stents) Hx Coronary Stent: Yes (X4) Hx Open Heart Surgery: Yes Other/Comment: PACEMAKER/AICD,MULTIPLE ANGIOPLASTIES,CATARACT SURGERY,CARDIAC STENTS X 4,QUADRUPLE BYPASS - ANESTHESIA Hx Anesthesia: Yes Meds Allergies/Adverse Reactions: Allergies Allergy/AdvReac Type Severity Reaction Status Date / Time Iodinated Contrast Media - Allergy ANAPHYLAXIS Verified 03/26/17 06:10 Oral and levofloxacin [From Levaquin] Allergy ANAPHYLAXIS Verified 03/26/17 06:10 Physical Exam - Constitutional Appears: No Acute Distress - Head Exam Head Exam: ATRAUMATIC, NORMOCEPHALIC - Respiratory Exam Respiratory Exam: Clear to Auscultation Bilateral, NORMAL BREATHING PATTERN - Cardiovascular Exam Cardiovascular Exam: +S1, +S2 - GI/Abdominal Exam GI & Abdominal Exam: Normal Bowel Sounds, Soft, Tenderness Additional comments: mild lower quadrant tenderness - Neurological Exam Neurological exam: Alert, Oriented x3 Results - Vital Signs Recent Vital Signs: Last Vital Signs Temp 98.1 F 03/26/17 06:14 Pulse 65 03/26/17 08:05 Resp 17 03/26/17 08:05 BP 105/62 03/26/17 08:05 Pulse Ox 98 03/26/17 08:05 - Labs Result Diagrams: 03/27/17 06:45 03/27/17 06:45 Assessment & Plan - Assessment and Plan (Free Text) Assessment: Hematuria Anemia Metastatic prostate cancer COPD Chronic heart failure CAD s/p stents Hypothyroidism DMII CRF Plan: Patient is complaining of bladder spasms and hematuria. Dark red blood seen in schroeder catheter bag. Patient says he took out the schroeder and was unable to pass urine. Large clots are blocking catheter and unable to pass. Continuous bladder irrigation is ordered. Consult Dr. Louise, urologist. Hemoglobin is 8.9. Will type and cross 2 units PRBCs. monitor H&H. continue maintenance medications
[2017-03-26] MEDS ORDERED: Non Formulary Medication (Simvastatin [Simvastatin] 20 MG) PO SCH (10:00)
[2017-03-26] MEDS: Insulin Human NPH/Reg 70/30 Vial(3 ml) SC SCH ×3 (12:53→22:48)
[2017-03-26] MEDS: Albuterol-Ipratrop 3 mg / 0.5 (3 ml) UD IH SCH ×2 (13:22→22:13)
[2017-03-26] MEDS: Digoxin 125 mcg (0.125 mg) Tab PO SCH (15:38)
--- NOTE | 2017-03-26 16:59 | CP.PCM.PN ---
Subjective - Date & Time of Evaluation Date of Evaluation: 03/26/17 Time of Evaluation: 15:54 - Subjective Subjective: Patient has orders for blood transfusion,needs consent for the same. Explained to patient about his anemic state,about the need for blood transfusion and its risks and benefits. Patient stated he understood what he was told and signed consent for the same. Objective - Vital Signs/Intake and Output Vital Signs (last 24 hours): Temp Pulse Resp BP Pulse Ox 98.0 F 63 20 118/58 L 99 03/26/17 16:43 03/26/17 16:43 03/26/17 16:43 03/26/17 16:43 03/26/17 16:00 Intake and Output: 03/26/17 03/26/17 06:59 18:59 Intake Total 410 Output Total 675 Balance -265 - Medications Medications: Current Medications Albuterol/Ipratropium (Duoneb 3 Mg/0.5 Mg (3 Ml) Ud) 3 ml IH [id number] [facility] Last Admin: 03/26/17 13:22 Dose: 3 ml Amiodarone HCl (Cordarone) 200 mg PO DAILY [facility] Last Admin: 03/26/17 11:17 Dose: 200 mg Aspirin (Ecotrin) 81 mg PO DAILY [facility] Last Admin: 03/26/17 11:18 Dose: 81 mg Atorvastatin Calcium (Lipitor) 10 mg PO DIN [facility] Calcium Acetate (Phoslo) 667 mg PO DAILY [facility] Last Admin: 03/26/17 11:18 Dose: 667 mg Digoxin (Lanoxin) 0.125 mg PO 1400 [facility] Last Admin: 03/26/17 15:38 Dose: Not Given Doxercalciferol (Hectorol) 0.5 mcg PO DAILY [facility] Last Admin: 03/26/17 11:18 Dose: 0.5 mcg Furosemide (Lasix) 40 mg PO BID [facility] Last Admin: 03/26/17 11:18 Dose: 40 mg Levothyroxine Sodium (Synthroid) 100 mcg PO ACB JEANA Montelukast Sodium (Singulair) 10 mg PO HS [facility] Pantoprazole Sodium (Protonix Ec Tab) 40 mg PO ACB [facility] Prednisone (Prednisone Tab) 5 mg PO DAILY [facility] Last Admin: 03/26/17 11:18 Dose: 5 mg - Labs Labs: PT 11.6 Seconds (9.9-11.8) 03/26/17 06:52 INR 1.07 (0.93-1.08) 03/26/17 06:52 APTT 25.6 Seconds (23.7-30.8) 03/26/17 06:52
[2017-03-27] MEDS: Albuterol-Ipratrop 3 mg / 0.5 (3 ml) UD IH SCH ×4 (04:54→20:50)
[2017-03-27 06:54] LABS: ADD MANUAL DIFF? NO
[2017-03-27 07:06] LABS: BASO # 0.02 K/mm3 (0.0-2.0); BASO % 0.2 % (0.0-3.0); EOS # 0.1 (0.0-0.7); EOS % 1.3 % (1.5-5.0); GRAN # 6.11 (1.4-6.5); GRAN % 71.9 % (50.0-68.0); HEMATOCRIT 31.3 % (42.0-52.0); LYMPH # 1.5 (1.2-3.4); LYMPH % 17.8 % (22.0-35.0); MEAN CELL VOLUME 87.2 fL (80.0-105.0); MEAN CORPUSCULAR HEMOGLOBIN 27.6 pg (25.0-35.0); MEAN CORPUSCULAR HGB CONC 31.6 g/dl (31.0-37.0); MEAN PLATELET VOLUME 9.4 fl (7.0-11.0); MONO # 0.8 (0.1-0.6); MONO % 8.8 % (1.0-6.0); PLATELET COUNT 183 10^3/uL (120.0-450.0); RED CELL DISTRIBUTION WIDTH 14.8 % (11.5-14.5); WHITE BLOOD COUNT 8.5 10^3/ul (4.5-11.0)
[2017-03-27 07:32] LABS: BLOOD UREA NITROGEN 33 mg/dL (7-21); CALCIUM 8.7 mg/dL (8.4-10.5); CARBON DIOXIDE 33 mmol/L (21-33); CHLORIDE 100 mmol/L (98-107); GFR AFRICAN-AMERICAN > 60; GLUCOSE,RANDOM 75 mg/dL (70-110); POTASSIUM 3.5 mmol/L (3.6-5.0); SODIUM 139 mmol/L (132-148)
--- NOTE | 2017-03-27 08:25 | CP.PCM.PN ---
Subjective - Date & Time of Evaluation Date of Evaluation: 03/27/17 Time of Evaluation: 08:00 - Subjective Subjective: Patient is seen this morning. He received 1 unit of PRBCs yesterday. He is still bleeding into schroeder catheter. Objective - Vital Signs/Intake and Output Vital Signs (last 24 hours): Temp Pulse Resp BP Pulse Ox 97.9 F 60 20 140/61 99 03/27/17 07:24 03/27/17 07:24 03/27/17 07:24 03/27/17 07:24 03/27/17 07:24 Intake and Output: 03/27/17 03/27/17 06:59 18:59 Intake Total 325 Output Total 700 Balance -375 - Medications Medications: Current Medications Acetaminophen (Tylenol 325mg Tab) 650 mg PO Q4H PRN PRN Reason: Pain, moderate (4-7) Albuterol/Ipratropium (Duoneb 3 Mg/0.5 Mg (3 Ml) Ud) 3 ml IH [id number] [facility] Last Admin: 03/27/17 07:44 Dose: 3 ml Amiodarone HCl (Cordarone) 200 mg PO DAILY [facility] Last Admin: 03/26/17 11:17 Dose: 200 mg Aspirin (Ecotrin) 81 mg PO DAILY [facility] Last Admin: 03/26/17 11:18 Dose: 81 mg Atorvastatin Calcium (Lipitor) 10 mg PO DIN [facility] Last Admin: 03/26/17 16:47 Dose: 10 mg Calcium Acetate (Phoslo) 667 mg PO DAILY [facility] Last Admin: 03/26/17 11:18 Dose: 667 mg Digoxin (Lanoxin) 0.125 mg PO 1400 [facility] Last Admin: 03/26/17 15:38 Dose: Not Given Doxercalciferol (Hectorol) 0.5 mcg PO DAILY [facility] Last Admin: 03/26/17 11:18 Dose: 0.5 mcg Furosemide (Lasix) 40 mg PO BID [facility] Last Admin: 03/26/17 18:23 Dose: 40 mg Sodium Chloride (Sodium Chloride 0.45%) 1,000 mls @ 60 mls/hr IV .[id number] [facility] Levothyroxine Sodium (Synthroid) 100 mcg PO ACB [facility] Montelukast Sodium (Singulair) 10 mg PO HS [facility] Last Admin: 03/26/17 22:10 Dose: 10 mg Pantoprazole Sodium (Protonix Ec Tab) 40 mg PO ACB [facility] Polyethylene Glycol (Miralax) 17 gm PO DAILY [facility] Prednisone (Prednisone Tab) 5 mg PO DAILY [facility] Last Admin: 03/26/17 11:18 Dose: 5 mg - Labs Labs: 03/27/17 06:45 03/27/17 06:45 PT 11.6 Seconds (9.9-11.8) 03/26/17 06:52 INR 1.07 (0.93-1.08) 03/26/17 06:52 APTT 25.6 Seconds (23.7-30.8) 03/26/17 06:52 - Constitutional Appears: No Acute Distress - Head Exam Head Exam: ATRAUMATIC, NORMOCEPHALIC - Respiratory Exam Respiratory Exam: Clear to Ausculation Bilateral, NORMAL BREATHING PATTERN - Cardiovascular Exam Cardiovascular Exam: +S1, +S2 - GI/Abdominal Exam GI & Abdominal Exam: Soft, Tenderness, Normal Bowel Sounds Additional comments: tenderness lower right quadrant - Extremities Exam Extremities Exam: Normal Inspection - Neurological Exam Neurological Exam: Alert, Awake, Oriented x3 Assessment and Plan - Assessment and Plan (Free Text) Assessment: Gross Hematuria Anemia Chronic heart failure COPD DMII Hypothyroidism Metastatic prostate cancer Plan: Patient is complaining of pain in the lower quadrants. He also complains of constipation. Tylenol as needed for pain. Hematuria with clots in schroeder catheter. continue bladder irrigation awaiting urology consult Patient was given 1 unit PRBC and hemoglobin is now 9.9. monitor H&H will start gentle hydration Miralax daily for constipation
[2017-03-27] MEDS ORDERED: Potassium Chloride 20 mEq ER Tab PO ONE (08:28)
[2017-03-27] MEDS: Insulin Human NPH/Reg 70/30 Vial(3 ml) SC SCH ×5 (08:31→22:02)
[2017-03-27] MEDS: Levothyroxine 100 MCG TAB PO SCH (08:32)
[2017-03-27] MEDS: Sodium Chloride 0.45% 1,000 ML IV SCH (08:32)
[2017-03-27] MEDS: Pantoprazole 40 mg EC Tab PO SCH (08:32)
[2017-03-27] MEDS: cefTRIAXone 1 gm 1 GM/100 ML BAG IVPB SCH (09:49)
[2017-03-27] MEDS: POLYETHYLENE GLYCOL 3350 17 GM/Dose PACKET PO SCH (09:49)
[2017-03-27] MEDS: Digoxin 125 mcg (0.125 mg) Tab PO SCH (14:11)
--- NOTE | 2017-03-27 15:30 | CON ---
DATE: 03/27/2017 CHIEF COMPLAINT: Hematuria. HISTORY OF PRESENT ILLNESS: This is an 87-year-old male with a history of castrate-resistant prostat e cancer, previously has been on prednisone and Zytiga. He has chronic retention with an indwelling [place]. He came to the ER several times because of hematuria. They changed the catheter, hematuria c leared. He came back again with more hematuria. His hemoglobin was 8.9. This morning, it is 9.9. His coags are normal. His creatinine is 1.1 with a BUN of 33. PAST MEDICAL HISTORY: Significant for having had a valve replacement, although he is only on aspirin . He has a history of type 2 diabetes, hypothyroidism. He has had bilateral cataract surgery, histo ry of COPD, congestive failure. He also has a pacemaker in place. He also has had angioplasties and quadruple bypass in the past. SOCIAL HISTORY: Noncontributory. ALLERGIES: HE IS ALLERGIC TO CONTRAST AND QUINOLONES. REVIEW OF SYMPTOMS: Currently, no symptoms referable to the head, eyes, ears, nose or throat. No ca rdiac, respiratory symptoms. No GI symptoms. No psychiatric, dermatologic symptoms. PHYSICAL EXAMINATION: VITAL SIGNS: Shows him to be afebrile, blood pressure 140/61, pulse 60, respirations 20. HEENT: Normocephalic, sclera clear, conjunctiva not injected. ABDOMEN: No CVA pain. No hepatosplenomegaly, rebound or guarding. No suprapubic tenderness. GENITALIA: The Avendano is draining with hematuria, but no clots. He is on, as mentioned, prednisone along with significant cardiac meds. He currently is not on any a ntibiotics. I will put him on Rocephin. My recommendation is he have a cystoscopy with evacuation o f clots. We will schedule this for tomorrow. Leonides Masterson MD cc: [id number] TT: 03/27/2017 15:29:31 Confirmation # [id number] Dictation # [id number]
[2017-03-28] MEDS: Albuterol-Ipratrop 3 mg / 0.5 (3 ml) UD IH SCH ×4 (03:00→20:21)
[2017-03-28 07:12] LABS: ADD MANUAL DIFF? NO
[2017-03-28 07:19] LABS: BASO # 0.01 K/mm3 (0.0-2.0); BASO % 0.1 % (0.0-3.0); EOS # 0.1 (0.0-0.7); EOS % 1.2 % (1.5-5.0); GRAN % 79.5 % (50.0-68.0); HEMATOCRIT 28.9 % (42.0-52.0); LYMPH # 1.2 (1.2-3.4); LYMPH % 11.2 % (22.0-35.0); MEAN CELL VOLUME 86.5 fL (80.0-105.0); MEAN CORPUSCULAR HEMOGLOBIN 27.8 pg (25.0-35.0); MEAN CORPUSCULAR HGB CONC 32.2 g/dl (31.0-37.0); MEAN PLATELET VOLUME 9.4 fl (7.0-11.0); MONO # 0.8 (0.1-0.6); PLATELET COUNT 169 10^3/uL (120.0-450.0); RED CELL DISTRIBUTION WIDTH 14.7 % (11.5-14.5); WHITE BLOOD COUNT 10.6 10^3/ul (4.5-11.0)
[2017-03-28 07:47] LABS: BLOOD UREA NITROGEN 25 mg/dL (7-21); CALCIUM 8.5 mg/dL (8.4-10.5); CARBON DIOXIDE 30 mmol/L (21-33); CHLORIDE 99 mmol/L (98-107); GFR AFRICAN-AMERICAN > 60; GLUCOSE,RANDOM 197 mg/dL (70-110); POTASSIUM 3.6 mmol/L (3.6-5.0); SODIUM 136 mmol/L (132-148)
[2017-03-28] MEDS: Insulin Human NPH/Reg 70/30 Vial(3 ml) SC SCH ×3 (07:49→17:26)
[2017-03-28] MEDS: Pantoprazole 40 mg EC Tab PO SCH (07:50)
[2017-03-28] MEDS: Levothyroxine 100 MCG TAB PO SCH (07:50)
[2017-03-28] MEDS ORDERED: Potassium Chloride 20 mEq ER Tab PO ONE (08:02)
--- NOTE | 2017-03-28 08:02 | CP.PCM.PN ---
Subjective - Date & Time of Evaluation Date of Evaluation: 03/28/17 Time of Evaluation: 07:40 - Subjective Subjective: Patient with gross hematuria and blood clots. He also complains of lower quadrant pain mostly on the right side. Objective - Vital Signs/Intake and Output Vital Signs (last 24 hours): Temp Pulse Resp BP Pulse Ox 97.9 F 61 20 125/58 L 99 03/27/17 07:24 03/27/17 09:48 03/27/17 07:24 03/27/17 17:12 03/27/17 07:24 Intake and Output: 03/28/17 03/28/17 06:59 18:59 Intake Total 1680 Output Total 1900 Balance -220 - Medications Medications: Current Medications Acetaminophen (Tylenol 325mg Tab) 650 mg PO Q4H PRN PRN Reason: Pain, moderate (4-7) Albuterol/Ipratropium (Duoneb 3 Mg/0.5 Mg (3 Ml) Ud) 3 ml IH [id number] [facility] Last Admin: 03/28/17 03:00 Dose: 3 ml Amiodarone HCl (Cordarone) 200 mg PO DAILY [facility] Last Admin: 03/27/17 09:48 Dose: 200 mg Aspirin (Ecotrin) 81 mg PO DAILY [facility] Last Admin: 03/26/17 11:18 Dose: 81 mg Atorvastatin Calcium (Lipitor) 10 mg PO DIN [facility] Last Admin: 03/27/17 17:11 Dose: 10 mg Calcium Acetate (Phoslo) 667 mg PO DAILY [facility] Last Admin: 03/27/17 09:49 Dose: 667 mg Digoxin (Lanoxin) 0.125 mg PO 1400 [facility] Last Admin: 03/27/17 14:11 Dose: 0.125 mg Doxercalciferol (Hectorol) 0.5 mcg PO DAILY [facility] Last Admin: 03/27/17 09:48 Dose: 0.5 mcg Furosemide (Lasix) 40 mg PO BID [facility] Last Admin: 03/27/17 17:12 Dose: 40 mg Sodium Chloride (Sodium Chloride 0.45%) 1,000 mls @ 60 mls/hr IV .[id number] [facility] Last Admin: 03/27/17 08:32 Dose: 60 mls/hr Ceftriaxone Sodium (Rocephin 1 Gram Ivpb) 1 gm in 100 mls @ 100 mls/hr IVPB DAILY [facility] PRN Reason: Protocol Last Admin: 03/27/17 09:49 Dose: 100 mls/hr Levothyroxine Sodium (Synthroid) 100 mcg PO ACB [facility] Last Admin: 03/28/17 07:50 Dose: Not Given Montelukast Sodium (Singulair) 10 mg PO HS [facility] Last Admin: 03/27/17 22:00 Dose: 10 mg Pantoprazole Sodium (Protonix Ec Tab) 40 mg PO ACB [facility] Last Admin: 03/28/17 07:50 Dose: Not Given Polyethylene Glycol (Miralax) 17 gm PO DAILY [facility] Last Admin: 03/27/17 09:49 Dose: 17 gm Prednisone (Prednisone Tab) 5 mg PO DAILY [facility] Last Admin: 03/27/17 09:49 Dose: 5 mg - Labs Labs: 03/28/17 06:59 03/28/17 06:59 PT 11.6 Seconds (9.9-11.8) 03/26/17 06:52 INR 1.07 (0.93-1.08) 03/26/17 06:52 APTT 25.6 Seconds (23.7-30.8) 03/26/17 06:52 - Constitutional Appears: No Acute Distress - Head Exam Head Exam: ATRAUMATIC, NORMOCEPHALIC - Respiratory Exam Respiratory Exam: Clear to Ausculation Bilateral, NORMAL BREATHING PATTERN - Cardiovascular Exam Cardiovascular Exam: +S1, +S2 - GI/Abdominal Exam GI & Abdominal Exam: Soft, Tenderness, Normal Bowel Sounds Additional comments: tenderness right lower quadrant - Neurological Exam Neurological Exam: Alert, Awake, Oriented x3 Assessment and Plan - Assessment and Plan (Free Text) Assessment: Gross hematuria Metastatic prostate CA COPD Chronic systolic heart failure CAD s/p multiple angioplasties Hypothyroidism DMII Arthritis Plan: Urology consult is appreciated. Patient to go for cystoscopy today with evacuation of clots. continue gentle IV hydration continue IV Rocephin monitor H&H; hemoglobin is 9.3 today which is decreasing from 9.9 after 1 unit of PRBCs was transfused if hemoglobin continues to decrease will need to transfuse 2nd unit of blood potassium is 3.6; will give another dose of potassium today.
[2017-03-28 10:08] VITALS: TEMP 98.4
[2017-03-28] MEDS ORDERED: Midazolam 2 MG/2 ML VIAL ONE (10:41)
[2017-03-28] MEDS ORDERED: Etomidate 20 mg/10ml Inj IV ONE ×2 (10:43→10:53)
[2017-03-28] MEDS ORDERED: Lactated Ringer's 1,000 ML IV SCH (11:11)
[2017-03-28] MEDS ORDERED: Morphine 2 mg/ml ISec IVP PRN (11:11)
--- NOTE | 2017-03-28 11:32 | PQF ANEMIA ---
This form is a permanent part of the medical record Dr. Marcus, Patient admitted with gross hematuria, found to have anemia and transfused with 1 UPRBC. Please document specifically type and severity of anemia present and treated. Clarification of your documentation is requested to better reflect the severity of illness and intensity of treatment of your patient. Indicators present [x] Anemia [] Drop in H&H from []___ to []___hgb- 8.9 [] Hypotension [] GI Bleed [] Transfusion(s) 1 UPRBC [x] Acute bleed other sites- gross hematuria with clots [] Tachycardia [] Surgical Procedure Blood Loss (expected not a complication) Other:[] Location in the medical record that reflects the above clinical findings: [ Patient's baseline hemoglobin is around 10. He has been having acute bleeding - gross hematuria with clots. He is also a heart patient with CAD, chronic systolic and diastolic heart failure. His hemoglobin should be around 10. ] Treatment Provided: [He was transfused 1 unit PRBC] PHYSICIAN'S RESPONSE Based on your medical judgment of the clinical indicators outlined above, are you treating this patient for a known or suspected: [x] Acute blood loss anemia [] Chronic blood loss anemia [] Acute on Chronic blood loss anemia [] Anemia due to malignancy [] Anemia due to chemotherapy or radiation therapy [x] Anemia of Chronic Disease, please specify: [Patient has acute blood loss anemia on top of underlying anemia of chronic disease secondary to CKD [] Other, please indicate type of anemia []____ [] If Unable to Determine, please check the box, sign and date. Present On Admission (POA) Indicator: [x] Present at the time of admission [] Not present at the time of admission [] Clinically Undetermined In responding to this query, please exercise your independent professional judgment. The fact that a question is asked does not imply that any particular answer is desired or expected. Thank you for your clarification on this documentation. If you have any questions please call:[ ] * Thank you, [ ]Kal Singletary [facility] #[id number] instructional systems designer ANNABELLA
--- NOTE | 2017-03-28 11:39 | PQF RENAL ---
This form is a permanent part of the medical record Dr. Marcus, Patient admitted with elevated BUN and creatinine. Your H&P notes CRF. Could you be more specific and document if patient has chronic kidney disease and stage if known? Clarification of your documentation is requested to better reflect the severity of illness and intensity of treatment of your patient. Indicators present [] Oliguria/anuria [] Edema/weight gain [] Hyponatremia [] Confusion/mental status changes [] Increased Blood Urea Nitrogen/Creatinine [] Increased Potassium/Decreased potassium [] Anemia (male <13.5, female <12.0) [] Proteinuria [] Metabolic Acidosis OR Alkalosis [] Hypotension/shock [] Decreased GFR [] Other: [] Location in the medical record that reflects the above clinical findings: PHYSICIAN'S RESPONSE Based on your medical judgment of the clinical indicators outlined above, are you treating this patient for a known or suspected: [] Acute Renal Failure [] Acute Kidney Injury [] Azotemia/prerenal azotemia [x] Chronic kidney disease Stage I [] Stage II [] Stage III [x] Stage IV [] [] Other condition/diagnosis:[] [] If Unable to Determine, please check the box, sign and date. Present On Admission (POA) Indicator: [x] Present at the time of admission [] Not present at the time of admission [] Clinically Undetermined In responding to this query, please exercise your independent professional judgment. The fact that a question is asked does not imply that any particular answer is desired or expected. Thank you for your clarification on this documentation. If you have any questions please call:[ ] * Thank you, [ ]Kal Singletary [facility] #[id number] membership coordinator Chronic Kidney Disease Stages *[employer]* Stage I GFR >90 Stage II GFR 60-89 Stage III GFR 30-59 Stage IV GFR 15-29 Stage V~~~~~~~~~~ GFR <15~~~~~~~~~~~~~ MTDD
[2017-03-28] MEDS: cefTRIAXone 1 gm 1 GM/100 ML BAG IVPB SCH (12:55)
[2017-03-28] MEDS: POLYETHYLENE GLYCOL 3350 17 GM/Dose PACKET PO SCH (12:57)
[2017-03-28] MEDS: Sodium Chloride 0.45% 1,000 ML IV SCH (13:11)
[2017-03-28] MEDS: Digoxin 125 mcg (0.125 mg) Tab PO SCH (13:22)
--- NOTE | 2017-03-28 16:12 | OP ---
PROCEDURE DATE: 03/28/2017 PREOPERATIVE DIAGNOSES: Gross hematuria, castrate-resistant prostate cancer, clot retention. POSTOPERATIVE DIAGNOSES: Gross hematuria, castrate-resistant prostate cancer, clot retention. PROCEDURE: Cystoscopy, evacuation of clots, fulguration of bladder. SURGEON: Leonides Masterson MD ANESTHESIA: LMA. DESCRIPTION OF OPERATION: After adequate LMA anesthesia was given, the patient was placed in lithoto my, prepped and draped in the usual manner. Avendano catheter was removed. A 22-Serbian cystourethrosco pe was introduced under direct vision. The anterior urethra was normal. Prostatic urethra showed so me hypervascularity of the prostate, but no significant obstruction. The patient has a history of ch ronic retention and castrate-resistant prostate cancer. The bladder showed clots, which were evacuat ed out. There were no lesions. There was no evidence of prostate extension into the trigone. The o rifices were normal with clear efflux. There was some hypervascularity and telangiectatic vessels on the floor of the bladder that were fulgurated. The irrigant fluid was completely clear upon initial introduction of the cystoscope. Urine was obtained for culture. The cystoscope was then removed an d an 18-Serbian 3-way Avendano catheter was inserted with the being crystal clear. The patient was awakened, brought to recovery room in good condition. Leonides Masterson MD cc: [phone] TT: 03/28/2017 16:11:52 dn
[2017-03-29] MEDS: Albuterol-Ipratrop 3 mg / 0.5 (3 ml) UD IH SCH ×3 (02:12→13:34)
[2017-03-29 07:07] LABS: ADD MANUAL DIFF? NO
[2017-03-29 07:14] LABS: BASO # 0.03 K/mm3 (0.0-2.0); BASO % 0.3 % (0.0-3.0); EOS # 0.3 (0.0-0.7); GRAN # 7.13 (1.4-6.5); GRAN % 74.7 % (50.0-68.0); HEMATOCRIT 30.5 % (42.0-52.0); LYMPH # 1.4 (1.2-3.4); LYMPH % 14.4 % (22.0-35.0); MEAN CELL VOLUME 88.2 fL (80.0-105.0); MEAN CORPUSCULAR HEMOGLOBIN 27.2 pg (25.0-35.0); MEAN CORPUSCULAR HGB CONC 30.8 g/dl (31.0-37.0); MEAN PLATELET VOLUME 9.4 fl (7.0-11.0); MONO # 0.7 (0.1-0.6); MONO % 7.6 % (1.0-6.0); PLATELET COUNT 180 10^3/uL (120.0-450.0); RED CELL DISTRIBUTION WIDTH 14.8 % (11.5-14.5); WHITE BLOOD COUNT 9.6 10^3/ul (4.5-11.0)
[2017-03-29 07:27] LABS: BLOOD UREA NITROGEN 20 mg/dL (7-21); CALCIUM 8.7 mg/dL (8.4-10.5); CARBON DIOXIDE 31 mmol/L (21-33); CHLORIDE 101 mmol/L (98-107); GFR AFRICAN-AMERICAN > 60; GLUCOSE,RANDOM 82 mg/dL (70-110); POTASSIUM 4.2 mmol/L (3.6-5.0); SODIUM 138 mmol/L (132-148)
[2017-03-29] MEDS: Pantoprazole 40 mg EC Tab PO SCH (07:53)
[2017-03-29] MEDS: Levothyroxine 100 MCG TAB PO SCH (07:53)
[2017-03-29] MEDS: Insulin Human NPH/Reg 70/30 Vial(3 ml) SC SCH ×2 (07:53→12:22)
[2017-03-29 09:05] VITALS: RESP 18; O2SAT 99
[2017-03-29] MEDS: POLYETHYLENE GLYCOL 3350 17 GM/Dose PACKET PO SCH (09:34)
[2017-03-29] MEDS: cefTRIAXone 1 gm 1 GM/100 ML BAG IVPB SCH (09:34)
[2017-03-29 09:36] VITALS: BP 146/64; PULSE 61
[2017-03-29] MEDS: Sodium Chloride 0.45% 1,000 ML IV SCH (09:36)
[2017-03-29] MEDS ORDERED: POLYETHYLENE GLYCOL 3350 17 GM/Dose PACKET PO SCH (11:00)
[2017-03-29] MEDS: Digoxin 125 mcg (0.125 mg) Tab PO SCH (14:11)
[2017-03-29 14:14] VITALS: PULSE 61
--- NOTE | 2017-03-29 15:09 | PN ---
DATE: 03/29/2017 SUBJECTIVE: The patient is seen ambulating on the floor with physical therapy. The patient was then seen in room 567, bed 2. The patient is out of bed to chair. The patient has CBI irrigation going on. The patient is on CBI irrigation. The patient is complaining of constipation. Overnight nurse' s notes were reviewed. The patient slept without any adverse event documented. The patient complain ed of constipation. PHYSICAL EXAMINATION: VITAL SIGNS: T-max 98.4, heart rate 56-61, blood pressure 146/64, 140/65, 139/52, respiration 18, O2 sat 99%. INTAKE AND OUTPUT: Output has been documented as 3420. HEAD: Normocephalic, atraumatic. HEENT: Shows pinkish, pale conjunctivae. Anicteric sclerae. NECK: Questionable soft carotid bruit. CHEST: Kyphosis. Positive left upper chest pacemaker noted. LUNGS: Show no rales, crackles, or wheezing. CARDIOVASCULAR: S1, S2, ____ rhythm, positive upper chest pacemaker noted. Positive systolic murmur left sternal border, right second intercostal space, left second intercostal space. ABDOMEN: Soft, positive bowel sounds. GENITALIA: Male. Positive continuous bladder irrigation catheter is noted. EXTREMITIES: Show no pitting edema, no calf tenderness, no Homans' sign. NEUROLOGIC: The patient is alert, awake, oriented x 3. Cranial nerves II-XII limited. Gait examina tion assisted with physical therapy. VASCULAR: Palpable pulses. MUSCULOSKELETAL: Motor strength is 5/5. DIAGNOSTICS: 03/29, WBC 9.6, hemoglobin/hematocrit 9.4/30.5, platelet 180, granulocytes 75%. Sodium 138, potassium 4.2, chloride 101, CO2 31, anion gap 10, BUN 20, creatinine 1.1, GFR greater than 60, glucose 82, calcium 8.7. Urine culture 03/26 no growth. Blood type ____ positive. IMPRESSION 1. Gross hematuria. 2. Gross hematuria with urinary bladder clot retention. 3. Castrate-resistant prostate carcinoma. 4. Status post cystoscopy, evacuation of clots and bladder fulguration. 5. Permanent pacemaker implant. 6. Normocytic anemia. 7. Granulocytosis. 8. Hypokalemia. 9. Acute kidney injury with prerenal kidney injury. 10. Hyperglycemia. 11. Proteinuria, ketonuria, hematuria, pyuria, bacteriuria. 12. ____ positive blood type. 13. Status post 1 unit of packed red blood cell transfusion. 14. Chronic urinary retention with indwelling Avendano. 15. History of hematuria. 16. Type 2 diabetes mellitus. 17. Permanent pacemaker implant. 18. Left ventricular ejection fraction of 52% with concentric left ventricular hypertrophy. 19. Moderate inferoseptal wall hypokinesis. 20. Moderate valvular aortic stenosis with decreased and calcified aortic valve opening. 21. Moderate mitral regurgitation with moderately thickened mitral valve. 22. Moderate tricuspid regurgitation with right ventricular systolic pressure of 42 mmHg. 23. Moderate valvular aortic stenosis, moderate mitral regurgitation, moderate tricuspid regurgitati on. 24. Deconditioning. 25. Gait dysfunction. 26. Constipation. 27. Insulin-requiring diabetes mellitus. 28. Congestive heart failure. 29. Dyslipidemia. 30. Hypothyroidism. PLAN: At this time, the patient is to continue on physical therapy. The patient seen by physical [facility]. Their recommendations were noted. The patient's case is referred to TCU evaluation. The p atient has been ordered daily CBC. The patient will be ordered serial chemistries also while patient is in house: At present, the patient is to be monitored closely. The patient will continue on ther apeutic intervention as per further recommendation. At present, the patient is to be continued on [facility] medical floor until if the patient is accepted to transitional care unit for further care and manag ement. CURRENT CONSULTATION: The patient is seen by urologist. The patient is on IV fluid half normal saline at 60 mL an hour, amiodarone 200 mg daily. The patient is ordered Dulcolax suppository for constipation. The patient is on DuoNeb nebulizer every 6 hours, Ecotrin 81 daily, Hectorol 0.5 mcg daily, insulin 70/30 NPH/regular 20 units a.c. and bedtime, digox in 0.125 daily, Lasix 40 mg twice a day, Lipitor 10 mg daily, MiraLax increased to 17 g twice a day, PhosLo 667 mg daily, prednisone 5 mg daily, Protonix 40 mg daily, Rocephin 1 gram IV daily, Singulair 10 mg at bedtime, Synthroid 100 mcg daily, Tylenol 650 q. 4 p.r.n. The patient is on O2 nasal cannula. The patient is to be ordered KITTY stockings and SCDs for DVT prop hylaxis. The patient is to be ordered out of bed to chair. The patient is to ordered DVT and GI pro phylaxis. The patient has been ordered physical therapy. The patient will be ordered out of bed to chair. At present, the patient is to be continued on the above therapeutic intervention. We will aw ait further recommendation for physical therapy and social services specialist. The patient can be transferred to U. Dictated and electronically signed, not read. Ariel Yip MD cc: [id number] TT: 03/29/2017 13:45:02 Confirmation # [id number] Dictation # [id number] tn
== END 2017-03-29 17:07 | DRG 669 ==
LOC: ED 06:03 → ERH 07:04 → 5RNO 08:55 → OBSVTOIN 09:12
PROVIDERS: ADMIT Internal Medicine; ATTEND Internal Medicine
PROC: 30233N1 Transfusion of Nonautologous Red Blood Cells into Peripheral Vein, Percutaneous Approach (ICD-10-PCS; 2017-03-26)
PROC: 3E0F7GC Introduction of Other Therapeutic Substance into Respiratory Tract, Via Natural or Artificial Opening (ICD-10-PCS; 2017-03-26)
PROC: 0T5B8ZZ Destruction of Bladder, Via Natural or Artificial Opening Endoscopic (ICD-10-PCS; 2017-03-28)
PROC: 0TCB8ZZ Extirpation of Matter from Bladder, Via Natural or Artificial Opening Endoscopic (ICD-10-PCS; principal; 2017-03-28 10:00)
DX: R31.0 Gross hematuria (principal); R33.8 Other retention of urine; C61 Malignant neoplasm of prostate; N32.89 Other specified disorders of bladder; D62 Acute posthemorrhagic anemia; I50.22 Chronic systolic (congestive) heart failure; N17.9 Acute kidney failure, unspecified; E11.65 Type 2 diabetes mellitus with hyperglycemia; I13.0 Hypertensive heart and chronic kidney disease with heart failure and stage 1 through stage 4 chronic kidney disease, or unspecified chronic kidney disease; C77.9 Secondary and unspecified malignant neoplasm of lymph node, unspecified; I08.3 Combined rheumatic disorders of mitral, aortic and tricuspid valves; J44.9 Chronic obstructive pulmonary disease, unspecified; E11.22 Type 2 diabetes mellitus with diabetic chronic kidney disease; D63.1 Anemia in chronic kidney disease; N18.3 Chronic kidney disease, stage 3 (moderate); I25.10 Atherosclerotic heart disease of native coronary artery without angina pectoris; E03.9 Hypothyroidism, unspecified; K59.00 Constipation, unspecified; E87.6 Hypokalemia; E78.5 Hyperlipidemia, unspecified; M19.90 Unspecified osteoarthritis, unspecified site; Z79.4 Long term (current) use of insulin; Z95.5 Presence of coronary angioplasty implant and graft; Z95.0 Presence of cardiac pacemaker; Z91.041 Radiographic dye allergy status; Z95.2 Presence of prosthetic heart valve; Z79.82 Long term (current) use of aspirin

== ENCOUNTER 2017-03-29 17:12 | Inpatient (IN) | payer OTHER, MEDICARE ==
[2017-03-29] MEDS ORDERED: Sodium Chloride 0.45% 500ml 500 ML SOL IV SCH (18:00)
[2017-03-29] MEDS ORDERED: Albuterol 0.083% Inhal Sol (2.5 mg/3 mL) UD IH SCH (18:00)
[2017-03-29] MEDS ORDERED: Pneumococcal 23-Valent Vaccine IM ONE (20:06)
[2017-03-29] MEDS: Insulin Lispro (HUMAlog) HIGH Coverage SC SCH (22:40)
[2017-03-30] MEDS: Pantoprazole 40 mg EC Tab PO SCH (05:29)
[2017-03-30] MEDS: cefTRIAXone 1 gm 1 GM/100 ML BAG IVPB SCH (05:29)
[2017-03-30] MEDS: Levothyroxine 100 MCG TAB PO SCH (05:30)
[2017-03-30] MEDS: Insulin Lispro (HUMAlog) HIGH Coverage SC SCH ×4 (06:51→21:38)
[2017-03-30 07:07] LABS: ADD MANUAL DIFF? NO
[2017-03-30 07:16] LABS: BASO # 0.03 K/mm3 (0.0-2.0); BASO % 0.3 % (0.0-3.0); EOS # 0.3 (0.0-0.7); EOS % 2.7 % (1.5-5.0); GRAN # 7.74 (1.4-6.5); GRAN % 75.9 % (50.0-68.0); LYMPH # 1.4 (1.2-3.4); MEAN CELL VOLUME 88.3 fL (80.0-105.0); MEAN CORPUSCULAR HEMOGLOBIN 27.6 pg (25.0-35.0); MEAN CORPUSCULAR HGB CONC 31.3 g/dl (31.0-37.0); MEAN PLATELET VOLUME 9.6 fl (7.0-11.0); MONO # 0.7 (0.1-0.6); MONO % 7.1 % (1.0-6.0); PLATELET COUNT 194 10^3/uL (120.0-450.0); RED CELL DISTRIBUTION WIDTH 14.8 % (11.5-14.5); WHITE BLOOD COUNT 10.2 10^3/ul (4.5-11.0)
[2017-03-30 07:24] LABS: ALB/GLOB RATIO 1.3 (1.1-1.8); ALKALINE PHOSPHATASE 81 U/L (38-133); ALT/SGPT 45 U/L (7-56); AST/SGOT 35 U/L (15-59); BILIRUBIN,DIRECT 0.3 mg/dL (0.0-0.4); BILIRUBIN,TOTAL 0.4 mg/dL (0.2-1.3); BLOOD UREA NITROGEN 22 mg/dL (7-21); CALCIUM 8.7 mg/dL (8.4-10.5); CARBON DIOXIDE 30 mmol/L (21-33); CHLORIDE 101 mmol/L (98-107); GFR AFRICAN-AMERICAN > 60; GLUCOSE,RANDOM 100 mg/dL (70-110); MAGNESIUM 2.2 mg/dL (1.7-2.2); PHOSPHOROUS 3.6 mg/dL (2.5-4.5); POTASSIUM 4.4 mmol/L (3.6-5.0); SODIUM 136 mmol/L (132-148); TOTAL PROTEIN 5.9 g/dL (5.8-8.3)
[2017-03-30] MEDS ORDERED: POLYETHYLENE GLYCOL 3350 17 GM/Dose PACKET PO SCH (10:00)
--- NOTE | 2017-03-30 11:17 | PN ---
DATE: 03/29/2017 The patient is seen in his room on the transitional care unit at [facility]. PHYSICAL EXAMINATION: GENERAL: The patient is awake, alert, in no acute distress. VITAL SIGNS: He is afebrile. ABDOMEN: Soft, nontender, nondistended. There is no hepatosplenomegaly or costovertebral angle tend erness. GENITOURINARY: The patient has a 3-way Avendano catheter in place. It is crystal clear on slow CBI. IMPRESSION AND PLAN: The patient with castrate-resistant metastatic prostate cancer. Urinary retent ion and gross hematuria. Urologically, the patient has had many episodes of recurrent gross hematuri a which appears to be from chronic cystitis and prostate cancer with an indwelling Avendano. He recentl y had a cystoscopy with evacuation of clots. He has remained clear at this point on slow continuous bladder irrigation. The plan will be to hold the continuous bladder irrigation tomorrow morning. I would hold any blood thinners and hold aspirin unless critically necessary at this point as patient h as continued to have recurrent episodes of gross hematuria. The patient is critically ill at this po int with progressing metastatic prostate cancer. As per oncology, the patient is in too fragile a co ndition to receive any chemotherapy and he will be maintained on his low dose hormonal treatments for the prostate cancer. Condition is currently stable, although his long-term prognosis is poor. Plan will be to discharge him home with the indwelling Avendano catheter when cleared by medicine. Eddie Louise MD cc: [phone] TT: 03/30/2017 11:16:32 Confirmation # [id number] Dictation # [id number] tn
[2017-03-30] MEDS: Digoxin 125 mcg (0.125 mg) Tab PO SCH (11:20)
[2017-03-30] MEDS: Lidocaine 5% Patch TD SCH (11:21)
[2017-03-30] MEDS: Sodium Chloride 0.45% 1,000 ML IV SCH (11:22)
[2017-03-30] MEDS: POLYETHYLENE GLYCOL 3350 17 GM/Dose PACKET PO SCH ×2 (11:22→17:21)
--- NOTE | 2017-03-30 11:43 | HP ---
HISTORY OF PRESENT ILLNESS: The patient is an 87-year-old male who was admitted from acute care [facility] to transitional care unit after patient was treated for hematuria. The patient was accepted to TCU for further management and treatment. CODE STATUS: Full code. LIVING WILL AND ADVANCED DIRECTIVE: None. ALLERGIES: IODINATED CONTRAST MEDIA AND LEVAQUIN. Height is 5 feet 7 inches, weight is 153, BMI is 24. HOME MEDICATIONS: Removed. SOCIAL HISTORY: Negative for alcohol, smoking or drug use. PAST MEDICAL AND SURGICAL HISTORY: History of hematuria, history of coronary artery disease, history of atrial fibrillation, history of congestive heart failure, history of peripheral vascular disease, history of coronary artery bypass graft, history of coronary angioplasty, history of permanent pacem rachel, defibrillator implant, history of dyslipidemia, history of hypertension, history of diabetes me llitus, history of hypothyroidism, history of constipation, history of urinary retention, history of prostate carcinoma, history of castrate-resistant prostate carcinoma, history of renal dysfunction, h istory of chronic kidney disease, history of urinary tract infection, history of hematuria, history o f glaucoma, cataracts, hearing deficit, history of degenerative joint disease, history of gait dysfun ction, history of prostate carcinoma, history questionable COPD, history of anemia with blood transfu yara, history of prostate carcinoma with metastasis, status post chemotherapy. The patient's past nv dical history is significant for hypothyroidism, insulin-requiring diabetes mellitus, history of dysl ipidemia. The patient's past medical history is significant for hematuria, history of congestive hea rt failure, history of myocardial infarction, history of prostate carcinoma, history of COPD exacerba tion, history of cholelithiasis, history of retroperitoneal adenopathy, history of diffuse bony metas tasis, history of deconditioning. The patient's past medical history is significant for history of ch olelithiasis, history of hepatomegaly. 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 The patient's past medical history is significant for histor y of possible ischemic coronary artery disease, history of left ventricular hypertrophy, history of m ildly impaired left ventricular ejection fraction of 45%, history of moderate valvular aortic stenosi s, history of moderate mitral regurgitation, history of moderately thickened mitral valve, history of moderate tricuspid regurgitation with elevated right ventricular systolic pressure of 42 mmHg. The patient is seen ambulating in the hallway. The patient is complaining of constipation. PHYSICAL EXAMINATION: VITAL SIGNS: T-max is 97.3. Heart rate 93, blood pressure is 158/77 and 120/65. Respirations 18. The patient is seen ambulating. HEAD: Normocephalic, atraumatic. HEENT: Shows pinkish, pale conjunctivae, anicteric sclerae. No oropharyngeal lesion. NECK: No neck rigidity. CHEST: Shows positive kyphosis, positive median sternotomy surgical scar. Positive left upper chest pacemaker. CARDIOVASCULAR: Shows S1, S2, regular rhythm, positive systolic murmur right second intercostal spac e, left sternal border, left second intercostal space. ABDOMEN: Soft, positive bowel sounds. GENITALIA: Male. Positive Avendano catheter noted. CBI discontinued. LOWER EXTREMITIES: Shows no pitting edema, no calf tenderness, no Liz sign. NEUROLOGIC: The patient is alert, awake, oriented x 3. Cranial nerves II-XII limited. GAIT EXAMINATION: The patient is doing physical therapy with PT. Motor strength is 5/5 in upper and lower extremities. DIAGNOSTICS: On 03/30: WBC 10.2, hemoglobin/hematocrit 9.7 and 31, platelets 194. Granulocytes 76% . Sodium 136, potassium 4.4, chloride 101, CO2 30, anion gap 9, BUN 22, creatinine 1.1, GFR greater than 60, glucose 100, calcium 8.7, phosphorus 3.6, magnesium 2.2. LFTs are normal. Digoxin level 1. 1. IMPRESSION AND PLAN: 1. Deconditioning. 2. Gait dysfunction. 3. Constipation. 4. Gross hematuria with urinary bladder clot retention. 5. Castrate-resistant prostate carcinoma. 6. Constipation. 7. Back pain secondary to bony metastasis of the prostate carcinoma. 8. Hypertension. 9. Tachycardia. 10. Normocytic anemia. 11. Granulocytosis. 12. Prerenal kidney injury. 13. Hematuria. 14. Constipation. 15. Dyslipidemia. 16. Constipation. 17. History of hypothyroidism and chronic obstructive pulmonary disease. PLAN: At this time, patient is to be continued on the transitional care unit. The patient has been ordered serial labs. Consultation with urology ordered. The patient was seen by Dr. Louise. CBI disco ntinued, aspirin held. CURRENT MEDICATIONS: DuoNeb nebulizer every 6 hours. The patient has been ordered Colace 100 mg 3 t imes a day. The patient is on DuoNeb nebulizer every 6 hours. Colace 100 three times a day, amiodar one 200 mg daily. The patient has been ordered a Fleet enema stat which patient refused yesterday. The patient is on Humalog high dose sliding scale coverage a.c. and at bedtime, Digoxin 0.125 mg p.o. daily, Lasix 40 mg p.o. twice a day, Lidoderm 5% patch to the lumbar spine area, Lipitor 10 mg daily , MiraLax 17 g twice a day, prednisone 5 mg daily, Protonix 40 mg daily, Rocephin 1 gram IV daily, Si ngulair 10 mg at bedtime, IV fluids 0.45 normal saline at 60 mL an hour, Synthroid 100 mcg daily. The patient is on heart healthy diet, KITTY stockings, SCDs. Physical therapy, occupational therapy. At present, patient is to be continued on the above therapeutic intervention until patient continues and completes transitional care unit stay. At present, patient will be followed by physical therapy, occupational therapy for gait training, ambulation training and also by urology. Dictated and electronically signed, not read. Ariel Yip MD cc: [id number] TT: 03/30/2017 11:42:59 carlene
[2017-03-30] MEDS: Albuterol-Ipratrop 3 mg / 0.5 (3 ml) UD IH SCH ×2 (13:07→20:01)
[2017-03-31] MEDS: Albuterol-Ipratrop 3 mg / 0.5 (3 ml) UD IH SCH ×4 (01:33→19:53)
[2017-03-31] MEDS: Sodium Chloride 0.45% 1,000 ML IV SCH (05:22)
[2017-03-31] MEDS: cefTRIAXone 1 gm 1 GM/100 ML BAG IVPB SCH (05:24)
[2017-03-31] MEDS: Pantoprazole 40 mg EC Tab PO SCH (05:40)
[2017-03-31] MEDS: Levothyroxine 100 MCG TAB PO SCH (05:40)
[2017-03-31] MEDS: Insulin Lispro (HUMAlog) HIGH Coverage SC SCH ×4 (06:41→21:54)
[2017-03-31 07:10] LABS: ADD MANUAL DIFF? NO; BASO # 0.04 K/mm3 (0.0-2.0); BASO % 0.4 % (0.0-3.0); EOS # 0.3 (0.0-0.7); EOS % 2.7 % (1.5-5.0); GRAN # 7.31 (1.4-6.5); GRAN % 74.4 % (50.0-68.0); HEMATOCRIT 31.7 % (42.0-52.0); LYMPH # 1.3 (1.2-3.4); LYMPH % 13.6 % (22.0-35.0); MEAN CELL VOLUME 88.1 fL (80.0-105.0); MEAN CORPUSCULAR HEMOGLOBIN 27.2 pg (25.0-35.0); MEAN CORPUSCULAR HGB CONC 30.9 g/dl (31.0-37.0); MEAN PLATELET VOLUME 9.5 fl (7.0-11.0); MONO # 0.9 (0.1-0.6); MONO % 8.9 % (1.0-6.0); PLATELET COUNT 214 10^3/uL (120.0-450.0); RED CELL DISTRIBUTION WIDTH 14.6 % (11.5-14.5); WHITE BLOOD COUNT 9.8 10^3/ul (4.5-11.0)
[2017-03-31 07:23] LABS: ALB/GLOB RATIO 1.3 (1.1-1.8); BILIRUBIN,DIRECT 0.4 mg/dL (0.0-0.4); BILIRUBIN,TOTAL 0.5 mg/dL (0.2-1.3); CALCIUM 8.7 mg/dL (8.4-10.5); MAGNESIUM 2.2 mg/dL (1.7-2.2); PHOSPHOROUS 3.8 mg/dL (2.5-4.5); POTASSIUM 4.7 mmol/L (3.6-5.0); TOTAL PROTEIN 6.1 g/dL (5.8-8.3)
--- NOTE | 2017-03-31 09:30 | PN ---
DATE: 03/31/2017 LOCATION: The patient is seen in room 321, bed 1. HISTORY OF PRESENT ILLNESS: The patient is sitting up in the bed. The patient is alert, awake, resp onsive. The patient stated that his Avendano catheter clogged again yesterday. The patient needed irri gation. The patient's Avendano was irrigated, which cleared up the clots and the patient had some blood y urine, after that the urine cleared up. PHYSICAL EXAMINATION: VITAL SIGNS: T-max 98.4, pulse 72, blood pressure 146/74, respiration 18, O2 sat 97%. INTAKE AND OUTPUT: Output yesterday was 2800. HEAD: Normocephalic, atraumatic. HEENT: Shows pinkish, pale conjunctivae, anicteric sclerae. No oropharyngeal lesion. NECK: No neck rigidity. Soft carotid bruit. CHEST: Kyphosis. LUNGS: Shows questionable decreased breath sounds. Positive left upper chest pacemaker. Positive m edian sternotomy surgical scar. CARDIOVASCULAR: Shows S1, S2, positive systolic murmur right second intercostal space, left sternal border, left second intercostal space. ABDOMEN: Soft. Positive bowel sounds. GENITALIA: Male. Positive Avendano catheter. EXTREMITIES: Shows trace swelling to 1+ pitting edema of the lower extremity. GENITOURINARY: The Avendano catheter draining. NEUROLOGIC: Motor strength is 5/5. GAIT: With rollator. Cranial nerves II-XII limited. MUSCULOSKELETAL: Shows a body mass index of 24. DIAGNOSTICS: On 03/20/2016: WBC 9.8, hemoglobin and hematocrit 9.8 and 31.7, platelet 214. Granulo cytes 74. Sodium 134, potassium 4.7, chloride 99, CO2 of 28, anion gap 12, BUN 26, creatinine 1.4, G FR is 58. Glucose 207, 214, 299, 219. Calcium 8.7, phosphorus 3.8, magnesium 2.2. LFTs are normal. Digoxin level yesterday was 1.1. IMPRESSION AND PLAN: 1. Deconditioning. 2. Gait dysfunction. 3. Castrate resistant metastatic prostate carcinoma. 4. Urinary retention. 5. Gross hematuria. 6. Recurrent gross hematuria. 7. Recurrent gross hematuria, probably secondary to chronic cystitis. 8. Progressive metastatic prostate carcinoma. 9. Bilateral lower extremity venous stasis. 10. Intermittent hematuria. 11. Normocytic anemia with granulocytosis. 12. Prerenal kidney injury. 13. Diabetes mellitus. 14. Gross hematuria with urinary bladder clot retention. 15. Status post cystoscopy with evacuation of clots and bladder fulguration. 16. Permanent pacemaker implant. 17. Coronary artery disease, coronary artery bypass graft. 18. Acute kidney injury. 19. Constipation. 20. Insulin requiring diabetes mellitus. 21. Dyslipidemia. 22. Hypothyroidism. 23. Constipation. 24. Dyslipidemia. 25. Hypothyroidism. PLAN: At this time, the patient has been ordered serial labs. Urology consultation and recommendati on by Dr. Louise noted. The patient is to be discharged. The patient will be discharged home with ind welling Avendano catheter as per urology recommendation. CURRENT MEDICATIONS: 1. Colace 100 mg 3 times a day. 2. Amiodarone 200 mg daily. 3. DuoNeb nebulizer every 6 hours. 4. Humalog high dose sliding scale coverage a.c. at bedtime. 5. Digoxin 0.125 daily. 6. The patient's Lasix is changed to 40 mg IV daily from 40 mg p.o. twice a day. 7. Lidoderm 5% patch daily. 8. Lipitor 10 mg daily. 9. MiraLax 17 grams twice a day. 10. Prednisone 5 mg daily. 11. Protonix 40 mg daily. 12. Rocephin 1 gram IV daily. 13. Singulair 10 mg at bedtime. 14. IV fluid 0.45 normal saline at 60 mL an hour. 15. Synthroid 100 mcg daily. 16. Oxygen 2 liters continuous. PLAN: Heart healthy diet. KITTY stockings have been ordered. SCDs have been ordered. The patient wi ll be continued on TCU for approval of days. Dictated, electronically signed, not read. Ariel Yip MD cc: [id number] TT: 03/31/2017 09:29:50 Confirmation # [id number] Dictation # [id number] ariel
[2017-03-31] MEDS: Digoxin 125 mcg (0.125 mg) Tab PO SCH (10:13)
[2017-03-31] MEDS: Lidocaine 5% Patch TD SCH (10:14)
[2017-03-31] MEDS: POLYETHYLENE GLYCOL 3350 17 GM/Dose PACKET PO SCH ×2 (10:14→17:57)
[2017-04-01] MEDS: Albuterol-Ipratrop 3 mg / 0.5 (3 ml) UD IH SCH ×4 (02:05→19:49)
[2017-04-01] MEDS: cefTRIAXone 1 gm 1 GM/100 ML BAG IVPB SCH (05:15)
[2017-04-01] MEDS: Pantoprazole 40 mg EC Tab PO SCH (05:32)
[2017-04-01] MEDS: Sodium Chloride 0.45% 1,000 ML IV SCH ×2 (05:32→12:58)
[2017-04-01] MEDS: Levothyroxine 100 MCG TAB PO SCH (05:32)
[2017-04-01] MEDS: Insulin Lispro (HUMAlog) HIGH Coverage SC SCH ×3 (06:37→17:50)
[2017-04-01 08:40] LABS: ADD MANUAL DIFF? NO
[2017-04-01 08:49] LABS: BASO # 0.03 K/mm3 (0.0-2.0); BASO % 0.4 % (0.0-3.0); EOS # 0.2 (0.0-0.7); EOS % 2.8 % (1.5-5.0); GRAN # 6.07 (1.4-6.5); GRAN % 73.5 % (50.0-68.0); HEMATOCRIT 27.7 % (42.0-52.0); LYMPH # 1.3 (1.2-3.4); LYMPH % 15.1 % (22.0-35.0); MEAN CELL VOLUME 87.4 fL (80.0-105.0); MEAN CORPUSCULAR HEMOGLOBIN 27.8 pg (25.0-35.0); MEAN CORPUSCULAR HGB CONC 31.8 g/dl (31.0-37.0); MEAN PLATELET VOLUME 9.7 fl (7.0-11.0); MONO # 0.7 (0.1-0.6); MONO % 8.2 % (1.0-6.0); PLATELET COUNT 164 10^3/uL (120.0-450.0); RED CELL DISTRIBUTION WIDTH 14.4 % (11.5-14.5); WHITE BLOOD COUNT 8.3 10^3/ul (4.5-11.0)
[2017-04-01 08:52] LABS: ALB/GLOB RATIO 1.2 (1.1-1.8); ALKALINE PHOSPHATASE 78 U/L (38-133); ALT/SGPT 42 U/L (7-56); AST/SGOT 31 U/L (15-59); BILIRUBIN,DIRECT 0.3 mg/dL (0.0-0.4); BILIRUBIN,TOTAL 0.3 mg/dL (0.2-1.3); BLOOD UREA NITROGEN 26 mg/dL (7-21); CALCIUM 8.4 mg/dL (8.4-10.5); CARBON DIOXIDE 29 mmol/L (21-33); CHLORIDE 99 mmol/L (98-107); GFR AFRICAN-AMERICAN > 60; GLUCOSE,RANDOM 232 mg/dL (70-110); MAGNESIUM 2.3 mg/dL (1.7-2.2); PHOSPHOROUS 2.9 mg/dL (2.5-4.5); POTASSIUM 4.1 mmol/L (3.6-5.0); SODIUM 135 mmol/L (132-148); TOTAL PROTEIN 5.4 g/dL (5.8-8.3)
[2017-04-01] MEDS: Digoxin 125 mcg (0.125 mg) Tab PO SCH (09:37)
[2017-04-01] MEDS: Lidocaine 5% Patch TD SCH (09:45)
[2017-04-01] MEDS: POLYETHYLENE GLYCOL 3350 17 GM/Dose PACKET PO SCH ×2 (09:46→17:50)
[2017-04-01] MEDS ORDERED: Insulin Human NPH/Reg 70/30 Vial(3 ml) SC SCH (11:30)
[2017-04-01] MEDS: Insulin Human NPH/Reg 70/30 Vial(3 ml) SC SCH ×2 (12:58→17:49)
--- NOTE | 2017-04-01 15:21 | PN ---
DATE: 04/01/2017 The patient is seen in room 321, bed 1. The patient is sitting up in the bed on the phone. The jalen ent complains of recurrent hematuria today. The patient complained of overnight hematuria, which pat ient's Avendano catheter needed flushing again. PHYSICAL EXAMINATION: VITAL SIGNS: T-max 98. Pulse 69, blood pressure 136/53, 137/64 and 146/79, respiration 18, O2 sat 9 9%. HEAD: Normocephalic, atraumatic. HEENT: Shows pinkish, pale conjunctivae, anicteric sclerae. No oropharyngeal lesion. NECK: No neck rigidity. CHEST: Kyphosis, positive left upper chest pacemaker. Positive median sternotomy surgical scar. LUNGS: Shows no rales, crackles, or wheezing. CARDIOVASCULAR: Shows S1, S2, regular rhythm, positive systolic murmur left sternal border, right se cond intercostal space. ABDOMEN: Soft, positive bowel sounds. GENITALIA: Male. RECTAL: Deferred. EXTREMITIES: Shows positive swelling of the lower extremity. Missing KITTY stockings. MUSCULOSKELETAL: Shows a body mass index of 24. NEUROLOGIC: Cranial nerves II-XII intact. Gait examination is not tested. VASCULAR: Palpable pulses. DIAGNOSTICS 04/01: WBC 8.3, hemoglobin and hematocrit 8.8 and 27.7, platelet 164. Granulocytes 75. Sodium 135, potassium 4.1, chloride 99, CO2 29, anion gap 11, BUN 26, creatinine is down to 1.1, GFR greater than 60, glucose 230, 251, 222, 207, calcium 8.4, phosphorus 2.9, magnesium 2.3, total prot ein 5.4, albumin 2.9. IMPRESSION AND PLAN: 1. Deconditioning. 2. Gait dysfunction. 3. Recurrent persistent versus refractory hematuria. 4. Hypertension. 5. Acute blood loss anemia secondary to hematuria with decreasing hemoglobin and hematocrit. 6. Granulocytosis. 7. Prerenal kidney injury. 8. Insulin-requiring diabetes mellitus with hyperglycemia. 9. Hypoalbuminemia and mild protein malnutrition. 10. Pseudomonas aeruginosa urinary tract infection. 11. Insulin requiring diabetes mellitus. 12. Persistent refractory recurrent hematuria with decreasing hemoglobin and hematocrit and acute bl ood loss anemia. 13. Constipation. 14. 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 15. Congestive heart failure. 16. Dyslipidemia. 17. Constipation. 18. Hypothyroidism. PLAN: At this time, patient has been on TCU. Serial labs ordered. Current consultation urology. A communication has been sent to urology about recurrent persistent hematuria and further evaluation. CURRENT MEDICATIONS: 1. Colace 100 mg 3 times a day. 2. Amiodarone 200 mg daily. 3. DuoNeb nebulizer every 6 hours 4. Humalog high dose sliding scale coverage a.c. and at bedtime. 5. The patient is resumed on insulin 70/30 at 20 units 3 times a day with meals as per his request. 6. Digoxin 0.125 daily. 7. Lasix 40 mg IV daily. 8. Lidoderm 5% patch daily. 9. Lipitor 10 mg daily. 10. MiraLax 17 g twice a day. 11. Prednisone 5 mg daily. 12. Protonix 40 mg daily. 13. Rocephin 1 gram IV daily. 14. Singulair 10 mg daily. The patient's IV fluid will be discontinued at this time as patient is eating and drinking. Normally the patient was encouraged to drink more fluids. In addition, the patient is on Synthroid 100 mcg d aily. Heart healthy diet. KITTY stockings, SCDs. Elevation of the lower extremity. Physical therapy , occupational therapy ordered. At present, patient is ordered above diagnostic therapeutic interven tion and testing. At present, patient's further management will be dependent upon the patient's clin ical condition, hemodynamic status, and as per patient's response to therapeutic intervention. We wi ll have to keep an eye on patient's CBC. If the patient's CBC continues to drop, patient might requi re and benefit from packed RBCs transfusion. Dictated and electronically signed, not read. Ariel Yip MD cc: [id number] TT: 04/01/2017 15:20:39 Confirmation # [id number] Dictation # [id number] tramaine
[2017-04-02] MEDS: Insulin Lispro (HUMAlog) HIGH Coverage SC SCH ×5 (00:04→21:43)
[2017-04-02] MEDS: Albuterol-Ipratrop 3 mg / 0.5 (3 ml) UD IH SCH ×4 (01:52→20:05)
[2017-04-02] MEDS: cefTRIAXone 1 gm 1 GM/100 ML BAG IVPB SCH (06:33)
[2017-04-02] MEDS: Pantoprazole 40 mg EC Tab PO SCH (06:33)
[2017-04-02] MEDS: Levothyroxine 100 MCG TAB PO SCH (06:38)
[2017-04-02] MEDS: Insulin Human NPH/Reg 70/30 Vial(3 ml) SC SCH ×3 (06:40→17:54)
--- NOTE | 2017-04-02 07:13 | PCM.URO ---
Urology Progress Note - Objective Lab Results Last 24 Hours: Laboratory Results - last 24 hr 03/31/17 03/31/17 04/01/17 16:43 21:43 05:12 WBC RBC Hgb Hct MCV MCH MCHC RDW Plt Count MPV Gran % Lymph % (Auto) Peach % (Auto) Eos % (Auto) Baso % (Auto) Gran # Lymph # Peach # Eos # Baso # Sodium Potassium Chloride Carbon Dioxide Anion Gap BUN Creatinine Est GFR ( Amer) Est GFR (Non-Af Amer) POC Glucose (mg/dL) 239 H 279 H 289 H Random Glucose Calcium Phosphorus Magnesium Total Bilirubin Direct Bilirubin AST ALT Alkaline Phosphatase Total Protein Albumin Globulin Albumin/Globulin Ratio 04/01/17 04/01/17 04/01/17 08:39 08:39 12:00 WBC 8.3 RBC 3.17 L Hgb 8.8 L Hct 27.7 L MCV 87.4 MCH 27.8 MCHC 31.8 RDW 14.4 Plt Count 164 MPV 9.7 Gran % 73.5 H Lymph % (Auto) 15.1 L Peach % (Auto) 8.2 H Eos % (Auto) 2.8 Baso % (Auto) 0.4 Gran # 6.07 Lymph # 1.3 Peach # 0.7 H Eos # 0.2 Baso # 0.03 Sodium 135 Potassium 4.1 Chloride 99 Carbon Dioxide 29 Anion Gap 11 BUN 26 H Creatinine 1.1 Est GFR ( Amer) > 60 Est GFR (Non-Af Amer) > 60 POC Glucose (mg/dL) 220 H Random Glucose 232 H Calcium 8.4 Phosphorus 2.9 Magnesium 2.3 H Total Bilirubin 0.3 Direct Bilirubin 0.3 AST 31 ALT 42 Alkaline Phosphatase 78 Total Protein 5.4 L Albumin 2.9 L Globulin 2.5 Albumin/Globulin Ratio 1.2 04/01/17 04/01/17 04/02/17 16:43 21:59 05:43 WBC RBC Hgb Hct MCV MCH MCHC RDW Plt Count MPV Gran % Lymph % (Auto) Peach % (Auto) Eos % (Auto) Baso % (Auto) Gran # Lymph # Peach # Eos # Baso # Sodium Potassium Chloride Carbon Dioxide Anion Gap BUN Creatinine Est GFR ( Amer) Est GFR (Non-Af Amer) POC Glucose (mg/dL) 177 H 97 169 H Random Glucose Calcium Phosphorus Magnesium Total Bilirubin Direct Bilirubin AST ALT Alkaline Phosphatase Total Protein Albumin Globulin Albumin/Globulin Ratio Vital Signs: Vital Signs - 24 hr 04/01/17 04/01/17 09:36 09:44 Pulse Rate 69 Blood Pressure 136/53 L 136/53 L
[2017-04-02 08:52] LABS: ADD MANUAL DIFF? NO
[2017-04-02 09:04] LABS: BASO # 0.04 K/mm3 (0.0-2.0); BASO % 0.4 % (0.0-3.0); EOS # 0.4 (0.0-0.7); EOS % 3.4 % (1.5-5.0); GRAN # 7.32 (1.4-6.5); GRAN % 71.5 % (50.0-68.0); HEMATOCRIT 29.5 % (42.0-52.0); LYMPH # 1.7 (1.2-3.4); LYMPH % 16.3 % (22.0-35.0); MEAN CELL VOLUME 87.5 fL (80.0-105.0); MEAN CORPUSCULAR HEMOGLOBIN 27.9 pg (25.0-35.0); MEAN CORPUSCULAR HGB CONC 31.9 g/dl (31.0-37.0); MEAN PLATELET VOLUME 9.8 fl (7.0-11.0); MONO # 0.9 (0.1-0.6); MONO % 8.4 % (1.0-6.0); PLATELET COUNT 205 10^3/uL (120.0-450.0); RED CELL DISTRIBUTION WIDTH 14.6 % (11.5-14.5); WHITE BLOOD COUNT 10.2 10^3/ul (4.5-11.0)
[2017-04-02 09:29] LABS: ALB/GLOB RATIO 1.2 (1.1-1.8); ALKALINE PHOSPHATASE 89 U/L (38-133); ALT/SGPT 43 U/L (7-56); AST/SGOT 40 U/L (15-59); BILIRUBIN,DIRECT 0.3 mg/dL (0.0-0.4); BILIRUBIN,TOTAL 0.4 mg/dL (0.2-1.3); BLOOD UREA NITROGEN 23 mg/dL (7-21); CALCIUM 8.5 mg/dL (8.4-10.5); CARBON DIOXIDE 28 mmol/L (21-33); CHLORIDE 99 mmol/L (98-107); GFR AFRICAN-AMERICAN > 60; GLUCOSE,RANDOM 219 mg/dL (70-110); MAGNESIUM 2.2 mg/dL (1.7-2.2); PHOSPHOROUS 2.8 mg/dL (2.5-4.5); POTASSIUM 4.4 mmol/L (3.6-5.0); SODIUM 134 mmol/L (132-148); TOTAL PROTEIN 5.9 g/dL (5.8-8.3)
[2017-04-02] MEDS: Lidocaine 5% Patch TD SCH (10:11)
[2017-04-02] MEDS: Digoxin 125 mcg (0.125 mg) Tab PO SCH (10:11)
[2017-04-02] MEDS: POLYETHYLENE GLYCOL 3350 17 GM/Dose PACKET PO SCH ×2 (10:12→17:57)
--- NOTE | 2017-04-02 16:51 | PN ---
DATE: 04/02/2017 HISTORY OF PRESENT ILLNESS: The patient is seen in room 321, bed 1. The patient is out of bed to air. The patient is being visited by the family member. The patient is alert, awake, oriented x 3. Overnight nurse's notes were reviewed. The patient again needed Avendano catheter irrigation and the p atient had intermittent blood-tinged urine, according to the nursing notes, and as per the patient's reports. The patient stated that he was seen by Dr. Guzman and he started him on medications for marni dder spasm. The patient still has a Avendano catheter, which shows some blood-tinged urine. According to the patient, he was told by Dr. Guzman that if continues to have bleeding in the urine, he may ne ed to have some kind of urological intervention again. PHYSICAL EXAMINATION: VITAL SIGNS: T-max afebrile, heart rate 78-84, respirations 18, O2 sat ranging in the mid to high 90 s. Blood pressure 130/84 . HEAD: Normocephalic, atraumatic. HEENT: Shows pinkish, pale conjunctivae and anicteric sclerae. No oropharyngeal lesion. NECK: Soft carotid bruit. CHEST: Kyphosis, positive median sternotomy surgical scar. Positive left upper chest pacemaker. Po sitive kyphosis. Occasional rhonchi noted. CARDIOVASCULAR: Shows S1, S2. Regular rhythm. Positive systolic murmur at left sternal border, rig ht second intercostal space, left second intercostal space. ABDOMEN: Soft, protuberant. Positive bowel sounds. GENITALIA: Male. Positive Avendano catheter. Positive blood-tinged urine noted. EXTREMITIES: Show positive KITTY stockings, pitting edema noted. MUSCULOSKELETAL: the body mass index. VASCULAR: Palpable pulses. NEUROLOGIC: Cranial nerves II-XII limited. Gait examination not tested. DIAGNOSTICS: From 04/02/2017 reviewed. WBC count is normal, hemoglobin and hematocrit above 9.9 gram s. Chemistry and LFTs are within normal limits. Fingerstick blood sugar is averaging around mid to high 200s. Urology progress notes were reviewed. There was no recommendation, evaluation or treatment plan note d by urology. The template for the urology note is blank without any recommendations, treatment plan or progress note. IMPRESSION AND PLAN: 1. Persistent recurrent versus refractory hematuria. 2. Acute blood loss anemia secondary to hematuria. 3. Deconditioning. 4. Gait dysfunction. 5. Bilateral lower extremity venous stasis. 6. History of congestive heart failure. 7. Insulin-requiring diabetes mellitus. 8. Insulin-requiring diabetes mellitus with hyperglycemia. 9. Normocytic anemia, acute blood loss anemia secondary to hematuria. 10. Permanent pacemaker implant. 11. Status post cystoscopy for hematuria and fulguration. 12. History of congestive heart failure. 13. History of hypertension. 14. Normocytic anemia. PLAN: At this time, patient has been started on oxybutynin by urology. The patient will be continue d as per the MAR, which is reviewed. The patient has been ordered serial labs. The patient has comp laint of constipation has resolved at present. The patient at present has been complying with wearing KTITY stockings. The patient will continue on care unit with physical therapy, occupational the rapy and ambulation therapy. The patient will continue on above. Ariel Yip MD cc: [id number] TT: 04/02/2017 16:51:05 Confirmation # [id number] Dictation # [id number] ln
[2017-04-03] MEDS: Albuterol-Ipratrop 3 mg / 0.5 (3 ml) UD IH SCH ×4 (01:53→20:01)
[2017-04-03] MEDS: cefTRIAXone 1 gm 1 GM/100 ML BAG IVPB SCH (05:18)
[2017-04-03] MEDS: Pantoprazole 40 mg EC Tab PO SCH (05:29)
[2017-04-03] MEDS: Levothyroxine 100 MCG TAB PO SCH (05:29)
[2017-04-03 07:03] LABS: ADD MANUAL DIFF? NO
[2017-04-03 07:22] LABS: ALB/GLOB RATIO 1.3 (1.1-1.8); ALKALINE PHOSPHATASE 91 U/L (38-133); ALT/SGPT 45 U/L (7-56); AST/SGOT 40 U/L (15-59); BILIRUBIN,DIRECT 0.3 mg/dL (0.0-0.4); BILIRUBIN,TOTAL 0.3 mg/dL (0.2-1.3); BLOOD UREA NITROGEN 26 mg/dL (7-21); CALCIUM 8.7 mg/dL (8.4-10.5); CARBON DIOXIDE 28 mmol/L (21-33); CHLORIDE 96 mmol/L (95-110); GFR AFRICAN-AMERICAN > 60; GLUCOSE,RANDOM 140 mg/dL (70-110); MAGNESIUM 2.3 mg/dL (1.7-2.2); PHOSPHOROUS 3.4 mg/dL (2.5-4.5); POTASSIUM 4.2 mmol/L (3.6-5.0); SODIUM 133 mmol/L (132-148); TOTAL PROTEIN 6.2 g/dL (5.8-8.3)
[2017-04-03 07:26] LABS: BASO # 0.05 K/mm3 (0.0-2.0); BASO % 0.6 % (0.0-3.0); EOS # 0.4 (0.0-0.7); EOS % 4.3 % (1.5-5.0); GRAN # 6.08 (1.4-6.5); GRAN % 66.8 % (50.0-68.0); HEMATOCRIT 30.7 % (42.0-52.0); LYMPH # 1.8 (1.2-3.4); LYMPH % 19.5 % (22.0-35.0); MEAN CELL VOLUME 87.7 fL (80.0-105.0); MEAN CORPUSCULAR HEMOGLOBIN 27.1 pg (25.0-35.0); MEAN CORPUSCULAR HGB CONC 30.9 g/dl (31.0-37.0); MEAN PLATELET VOLUME 9.6 fl (7.0-11.0); MONO # 0.8 (0.1-0.6); MONO % 8.8 % (1.0-6.0); PLATELET COUNT 231 10^3/uL (120.0-450.0); RED CELL DISTRIBUTION WIDTH 14.6 % (11.5-14.5); WHITE BLOOD COUNT 9.1 10^3/ul (4.5-11.0)
[2017-04-03] MEDS: Insulin Lispro (HUMAlog) HIGH Coverage SC SCH ×4 (07:31→22:15)
[2017-04-03] MEDS: Insulin Human NPH/Reg 70/30 Vial(3 ml) SC SCH ×3 (07:31→16:26)
[2017-04-03] MEDS: Lidocaine 5% Patch TD SCH (10:13)
[2017-04-03] MEDS: POLYETHYLENE GLYCOL 3350 17 GM/Dose PACKET PO SCH ×2 (10:16→18:10)
[2017-04-03] MEDS: Digoxin 125 mcg (0.125 mg) Tab PO SCH (10:18)
[2017-04-03 11:21] LABS: ADD MANUAL DIFF? NO
[2017-04-03 11:25] LABS: BASO # 0.02 K/mm3 (0.0-2.0); BASO % 0.2 % (0.0-3.0); EOS # 0.3 (0.0-0.7); GRAN # 5.75 (1.4-6.5); GRAN % 68.3 % (50.0-68.0); HEMATOCRIT 30.1 % (42.0-52.0); LYMPH # 1.5 (1.2-3.4); MEAN CORPUSCULAR HEMOGLOBIN 27.2 pg (25.0-35.0); MEAN CORPUSCULAR HGB CONC 30.9 g/dl (31.0-37.0); MEAN PLATELET VOLUME 9.4 fl (7.0-11.0); MONO # 0.8 (0.1-0.6); MONO % 9.5 % (1.0-6.0); PLATELET COUNT 187 10^3/uL (120.0-450.0); RED CELL DISTRIBUTION WIDTH 14.6 % (11.5-14.5); WHITE BLOOD COUNT 8.4 10^3/ul (4.5-11.0)
--- NOTE | 2017-04-03 12:11 | PN ---
DATE: 04/03/2017 The patient is seen in room 321, bed 1. The patient is noted to have again bleeding in the Avendano sit e. The patient's Avendano had to be irrigated twice during the night with blood-tinged urine. The jalen ent felt bladder pressure and patient's Avendano was draining blood-tinged urine. The patient felt dist ended. After the flushing and irrigation of the Avendano, the patient had blood clots removed, and jalen ent's urine later on this morning was noted to be bloodier. PHYSICAL EXAMINATION: VITAL SIGNS: T-max 98, heart rate 63-67-69; blood pressure is 134/67, 155/68, 136/53; respiration is 18, O2 sat is 99-98%. INTAKE AND OUTPUT: Intake is 460, output is 1400. HEAD: Normocephalic, atraumatic. HEENT: Shows pinkish, pale conjunctivae; anicteric sclerae. No oropharyngeal lesion. CHEST: Kyphosis. Positive left upper chest pacemaker. Positive median sternotomy surgical scar. CARDIOVASCULAR: S1, S2, regular rhythm. Positive systolic murmur right second intercostal space, le ft sternal border, left second intercostal space. ABDOMEN: Soft, positive suprapubic fullness and dullness noted. Slight abdominal distention positiv e. GENITALIA: Male. Positive Avendano catheter. Positive bloody urine noted, hematuria noted. EXTREMITIES: Shows positive swelling of the lower extremity. MUSCULOSKELETAL: Shows a body mass index of 24. NEUROLOGIC: The patient is alert, awake, responsive, is able to move upper and lower extremities wit hout assistance. GAIT: Not tested. DIAGNOSTICS: 04/03/2017: WBC 9.1, hemoglobin/hematocrit 9.5 and 31, platelets 231. Sodium 133, pot assium 4.2, chloride 96, CO2 28, anion gap 13, BUN 26, creatinine 1.1, GFR greater than 60, glucose 1 40, calcium 8.7, phosphorus 3.4, magnesium 2.3. LFTs are normal. IMPRESSION AND PLAN: 1. Recurrent persistent hematuria. 2. Anemia secondary to acute blood loss. 3. Acute blood loss anemia. 4. Deconditioning. 5. Gait dysfunction. 6. Normocytic anemia. 7. Granulocytosis. 8. Insulin-requiring diabetes mellitus with hyperglycemia. 9. Prerenal kidney injury. 10. Gross hematuria. 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 12. Clot retention and gross hematuria. 13. Status post cystoscopy with evacuation of clots and bladder fulguration. 14. Constipation. 15. Insulin-requiring diabetes mellitus. 16. Congestive heart failure. 17. Hypothyroidism. PLAN: At this time, patient is undergoing urological evaluation for recurrent hematuria. The patien t has been ordered type and crossmatch for PRBC. The patient has been ordered serial labs. The jalen ent has been seen by the urologist. Awaiting further urological input. CURRENT MEDICATIONS: Colace 100 mg 3 times a day. Amiodarone 200 mg daily. Ditropan 5 mg 3 times a day. DuoNeb nebulizer every 6 hours. Humalog insulin high dose sliding scale coverage. Insulin 70/30, 20 units a.c. with meals. Digoxin 0.125 daily. Lasix 40 mg IV daily. Lidoderm 5% patch to the lumbar spine area. Lipitor 10 mg daily. MiraLax 17 g twice a day. Prednisone 5 mg daily. Protonix 40 mg daily. Rocephin 1 gram IV daily. Singulair 10 mg at bedtime. Synthroid 100 mcg daily. Tylenol 650 q. 6 p.r.n. Oxygen nasal cannula. Heart healthy diet, KITTY sood, SCDs. At present, patient is awaiting further urological recommen dations and evaluation, which will determine patient's further management, therapeutic and diagnostic intervention. Dictated and electronically signed; not read. Ariel Yip MD cc: [id number] TT: 04/03/2017 12:10:13 Confirmation # [id number] Dictation # [id number] mn
--- NOTE | 2017-04-03 19:14 | PN ---
DATE: 04/03/2017 SUBJECTIVE: The patient was seen in his room on transitional care unit. Over the weekend, the patie nt was having recurrence of his gross hematuria. He has been having some clots and has been complain ing of pain when his bladder gets distended. He has been irrigated by nursing without much success a nd his urine remains grossly bloody. He is in no acute distress at this time, but does report feelin g somewhat distended. He has been afebrile. OBJECTIVE: VITAL SIGNS: Temp of 97.1, pulse 65, BP 137/54, respirations 18. ABDOMEN: Soft. He has some mild suprapubic tenderness. There is no rebound or guarding. I attempted to irrigate his bladder. There were some clots and resistance. The patient was having p ain. At this point, I removed the 18-[place] Avendano catheter and obtained a new 20-[place] 3-way Avendano catheter. The Avendano catheter was changed and bladder was then copiously irrigated and I was able to remove about 40-50 mL of clot. The balloon was deflated and the catheter withdrawn into the prostati c urethra. The bladder again was copiously irrigated with no remaining clots. The catheter was rein serted and the balloon inflated. He was started on continuous bladder irrigation, which is now runni ng clear to very lightly tinged. The plan for now will be to maintain him on continuous bladder irri gation for now. We will recheck him tomorrow and if the urine remains clear, we will shut the irriga tion off again. Will need to discuss further long-term planning with his medical attending Dr. Angeline felton. The patient should not receive any blood thinners at this time as this is a chronic problem. I would hold any aspirin or other blood thinners and his condition remains guarded overall from his metastatic prostate cancer. Eddie Louise MD cc: [id number] TT: 04/03/2017 19:13:41 Confirmation # [id number] Dictation # [id number] héctor
[2017-04-04] MEDS: Albuterol-Ipratrop 3 mg / 0.5 (3 ml) UD IH SCH ×4 (02:41→20:55)
[2017-04-04] MEDS: cefTRIAXone 1 gm 1 GM/100 ML BAG IVPB SCH (05:55)
[2017-04-04] MEDS: Pantoprazole 40 mg EC Tab PO SCH (05:56)
[2017-04-04] MEDS: Levothyroxine 100 MCG TAB PO SCH (05:56)
[2017-04-04] MEDS: Insulin Lispro (HUMAlog) HIGH Coverage SC SCH ×4 (07:06→21:21)
[2017-04-04] MEDS: Insulin Human NPH/Reg 70/30 Vial(3 ml) SC SCH ×3 (07:38→17:23)
[2017-04-04 08:01] LABS: ADD MANUAL DIFF? NO
[2017-04-04 08:05] LABS: BASO # 0.02 K/mm3 (0.0-2.0); BASO % 0.3 % (0.0-3.0); EOS # 0.3 (0.0-0.7); EOS % 3.5 % (1.5-5.0); GRAN # 5.43 (1.4-6.5); GRAN % 68.3 % (50.0-68.0); LYMPH # 1.5 (1.2-3.4); LYMPH % 18.7 % (22.0-35.0); MEAN CELL VOLUME 88.1 fL (80.0-105.0); MEAN CORPUSCULAR HGB CONC 30.7 g/dl (31.0-37.0); MEAN PLATELET VOLUME 9.9 fl (7.0-11.0); MONO # 0.7 (0.1-0.6); MONO % 9.2 % (1.0-6.0); PLATELET COUNT 220 10^3/uL (120.0-450.0); RED CELL DISTRIBUTION WIDTH 14.6 % (11.5-14.5)
[2017-04-04 08:16] LABS: ALB/GLOB RATIO 1.3 (1.1-1.8); ALKALINE PHOSPHATASE 83 U/L (38-133); ALT/SGPT 43 U/L (7-56); AST/SGOT 37 U/L (15-59); BILIRUBIN,DIRECT 0.3 mg/dL (0.0-0.4); BILIRUBIN,TOTAL 0.3 mg/dL (0.2-1.3); BLOOD UREA NITROGEN 26 mg/dL (7-21); CALCIUM 8.5 mg/dL (8.4-10.5); CARBON DIOXIDE 29 mmol/L (21-33); CHLORIDE 100 mmol/L (98-107); GFR AFRICAN-AMERICAN > 60; GLUCOSE,RANDOM 157 mg/dL (70-110); MAGNESIUM 2.4 mg/dL (1.7-2.2); PHOSPHOROUS 3.9 mg/dL (2.5-4.5); POTASSIUM 4.6 mmol/L (3.6-5.0); SODIUM 134 mmol/L (132-148); TOTAL PROTEIN 5.7 g/dL (5.8-8.3)
--- NOTE | 2017-04-04 10:23 | PN ---
DATE: 04/04/2017 The patient is seen in room 321, bed 1. Overnight events and the last 24 hours events were noted. T he patient needed a Avendano catheter change, irrigation and change to CBI by Dr. Louise with removal of c lots, with improvement of the patient's symptoms. Today, patient is feeling relatively better witho ut any lower abdominal pain and no more gross hematuria noted. He is sitting up in the bed. PHYSICAL EXAMINATION: VITAL SIGNS: T-max 97.6, pulse 65; blood pressure 137/54, 134/67; respiration 18, O2 sat 95%. INTAKE AND OUTPUT: Intake/output today in the last 24 hours was 1400 and 3100. HEAD: Normocephalic , atraumatic. HEENT: Shows pale conjunctivae. Anicteric sclerae. Dry oral mucosa. NECK: No neck rigidity. CHEST: Shows median sternotomy surgical scar. LUNGS: Positive median sternotomy surgical scar. Positive left upper chest pacemaker. Decreased br eath sounds at the bases. CARDIOVASCULAR: Shows S1, S2. Regular rhythm. Positive systolic murmur left sternal border, right second intercostal space. ABDOMEN: Soft, positive bowel sounds. Decreased suprapubic dullness. Mild suprapubic tenderness no kitty. No rebound tenderness. No costovertebral angle tenderness. GENITALIA: Male. Positive Avendano catheter. Positive urine which is not bloody at all. EXTREMITIES: Show trace swelling of the lower extremities. The patient has missing KITTY stockings. MUSCULOSKELETAL: Shows a body mass index of 24. NEUROLOGIC: The patient is alert, awake, oriented x 3. Cranial nerves II-XII limited. GAIT: Not tested. The patient ambulates with rollator. DIAGNOSTICS: 04/04: WBC 8.0, hemoglobin and hematocrit are 8.6 and 28.0, platelet 220, granulocyte 68% segs. Sodium 134, potassium 4.6, chloride 100, CO2 29, anion gap 10, BUN 26, creatinine 1.2, GFR greater than 60, glucose 57. Fingerstick blood sugar ____, 149, 140. Calcium 8.5, phosphorus 3.9, magnesium 2.4. LFTs are normal. IMPRESSION: 1. Recurrent persistent gross hematuria. 2. Status post new 20-[place] 3-way Avendano catheter placement. 3. Status post continuous bladder irrigation. 4. Metastatic castrate-resistant prostate carcinoma. 5. History of hypertension. 6. Acute blood loss anemia secondary to gross hematuria with decreasing hemoglobin and hematocrit. 7. Granulocytosis. 8. Mild prerenal kidney injury. 9. Insulin-requiring diabetes mellitus. 10. Deconditioning. 11. Gait dysfunction. 12. Bilateral lower extremity venous stasis secondary to history of congestive heart failure. 13. Dyslipidemia. 14. Constipation. 15. Hyperthyroidism. PLAN: At this time, the patient has been ordered transfusion of 2 units of PRBC each over 3 hours wi premedication Lasix 40 IV prior to each unit of 2 units of PRBC, and Tylenol 650 q. 6 for two dose s prior to each PRBC, Benadryl 25 mg IV prior to each unit of PRBC. CURRENT MEDICATIONS: Are as follows: Colace 100 mg 3 times a day, amiodarone 200 mg daily, Ditropan 5 mg 3 times a day, DuoNeb nebulizer every 6 hours, Humalog high dose sliding scale coverage a.c. and at bedtime, NPH regular mix 70/30 at 20 units with each meal, digoxin 0.125 daily, Lasix 40 mg IV da lan, Lidoderm 5% patch to the affected area daily, Lipitor 10 mg daily, MiraLax 17 g twice a day, pre dnisone 5 mg daily, Protonix 40 mg daily, Rocephin 1 gram IV daily, Singulair 10 mg at bedtime, Synth roid 100 mcg daily, Tylenol 650 q. 6 p.r.n., oxygen 2 liters continuous. Heart healthy diet, fingerstick blood sugar, elevation of the lower extremity on 2 pillows, KITTY stock ings, SCDs, physical therapy, occupational therapy. The patient has been updated about his condition, diagnosis, test results. Recommendations by all e physicians involved in the care have been explained to the patient in layman's language. The patie nt has also been advised about the possibility of blood transfusion since the patient's hemoglobin bcukner s dropped in the last 24 hours. At present, patient will be followed closely on TCU. The patient wi ll be transferred to outpatient oncology clinic for blood transfusion. Dictated and electronically signed; not read. Ariel Yip MD cc: [id number] TT: 04/04/2017 10:22:17 Confirmation # [id number] Dictation # [id number] mn
[2017-04-04] MEDS: Digoxin 125 mcg (0.125 mg) Tab PO SCH (10:58)
[2017-04-04] MEDS: DiphenhydrAMINE 50 mg/ml Inj IVP SCH ×2 (12:19→17:23)
[2017-04-04] MEDS: POLYETHYLENE GLYCOL 3350 17 GM/Dose PACKET PO SCH ×2 (12:23→17:25)
[2017-04-04] MEDS: Lidocaine 5% Patch TD SCH (14:17)
[2017-04-05] MEDS: Albuterol-Ipratrop 3 mg / 0.5 (3 ml) UD IH SCH ×4 (02:00→21:30)
[2017-04-05] MEDS: cefTRIAXone 1 gm 1 GM/100 ML BAG IVPB SCH (05:42)
[2017-04-05] MEDS: Pantoprazole 40 mg EC Tab PO SCH (05:42)
[2017-04-05] MEDS: Levothyroxine 100 MCG TAB PO SCH (05:42)
[2017-04-05] MEDS: Insulin Lispro (HUMAlog) HIGH Coverage SC SCH ×4 (06:31→22:35)
[2017-04-05 06:34] LABS: ADD MANUAL DIFF? NO
[2017-04-05 06:41] LABS: BASO # 0.04 K/mm3 (0.0-2.0); BASO % 0.6 % (0.0-3.0); EOS # 0.3 (0.0-0.7); EOS % 4.1 % (1.5-5.0); GRAN # 4.47 (1.4-6.5); GRAN % 64.8 % (50.0-68.0); HEMATOCRIT 32.6 % (42.0-52.0); LYMPH # 1.3 (1.2-3.4); LYMPH % 19.2 % (22.0-35.0); MEAN CORPUSCULAR HEMOGLOBIN 27.7 pg (25.0-35.0); MEAN CORPUSCULAR HGB CONC 32.2 g/dl (31.0-37.0); MEAN PLATELET VOLUME 9.1 fl (7.0-11.0); MONO # 0.8 (0.1-0.6); MONO % 11.3 % (1.0-6.0); PLATELET COUNT 166 10^3/uL (120.0-450.0); WHITE BLOOD COUNT 6.9 10^3/ul (4.5-11.0)
[2017-04-05 07:02] LABS: ALB/GLOB RATIO 1.2 (1.1-1.8); ALKALINE PHOSPHATASE 78 U/L (38-133); ALT/SGPT 42 U/L (7-56); AST/SGOT 37 U/L (15-59); BILIRUBIN,DIRECT 0.2 mg/dL (0.0-0.4); BILIRUBIN,TOTAL 0.3 mg/dL (0.2-1.3); BLOOD UREA NITROGEN 26 mg/dL (7-21); CALCIUM 8.4 mg/dL (8.4-10.5); CARBON DIOXIDE 30 mmol/L (21-33); CHLORIDE 101 mmol/L (98-107); GFR AFRICAN-AMERICAN > 60; GLUCOSE,RANDOM 87 mg/dL (70-110); MAGNESIUM 2.4 mg/dL (1.7-2.2); POTASSIUM 4.2 mmol/L (3.6-5.0); SODIUM 136 mmol/L (132-148); TOTAL PROTEIN 5.6 g/dL (5.8-8.3)
[2017-04-05] MEDS: Insulin Human NPH/Reg 70/30 Vial(3 ml) SC SCH ×3 (07:54→17:23)
[2017-04-05] MEDS: Lidocaine 5% Patch TD SCH (09:34)
[2017-04-05] MEDS: Digoxin 125 mcg (0.125 mg) Tab PO SCH (09:34)
[2017-04-05] MEDS: POLYETHYLENE GLYCOL 3350 17 GM/Dose PACKET PO SCH ×2 (09:35→17:24)
--- NOTE | 2017-04-05 11:23 | PN ---
DATE: 04/05/2017 The patient is seen in room 321, bed 1. The patient started having recurrent hematuria overnight. A ccording to the patient, the patient's Avendano had to be changed. Catheter has to be changed. The pat ient's urinary bag has to be changed. PHYSICAL EXAMINATION: VITAL SIGNS: T-max 97.2, pulse 61-68, blood pressure 153/64, 137/68, 127/70, respirations 18, O2 sat 100%. HEAD: Normocephalic, atraumatic. HEENT: Shows pinkish conjunctivae, anicteric sclerae, No oropharyngeal lesion. NECK: No neck rigidity. CHEST: Median sternotomy surgical scar. LUNGS: Show no rales, crackles, or wheezing. Questionable decreased breath sounds at the bases. CARDIOVASCULAR: Shows S1, S2, regular rhythm. Positive systolic murmur, left sternal border, right second intercostal space, left second intercostal space, left sternal border. ABDOMEN: Soft, positive. Suprapubic dullness and tenderness noted. GENITALIA: Male. Positive Avendano catheter. EXTREMITIES: Positive urine appears to be yellow, but no blood noted. VASCULAR: Palpable pulses with trace swelling of the lower extremity noted. The patient refused KITTY stockings. MUSCULOSKELETAL: Shows a body mass index of 24. NEUROLOGIC: Cranial nerves II-XII limited. GAIT: Not tested. PSYCHIATRIC: Negative. DIAGNOSTICS: 04/05, WBC 6.9, hemoglobin/hematocrit 10.5/32.6, platelets 166. Sodium 136, potassium 4.2, chloride 101, CO2 of 30, anion gap 9. BUN 26, creatinine 1.1. GFR greater than 60. Glucose 87 . Fingerstick blood sugar 118, 152, 175. Phosphorus 4.0, magnesium 2.4. LFTs are normal. Digoxin level yesterday 1.0. The patient received 2 units of PRBC yesterday. IMPRESSION AND PLAN: 1. Recurrent persistent refractory gross hematuria. 2. Acute blood loss anemia secondary to hematuria. 3. Status post packed red blood cell transfusion x 2. 4. Status post new 20-Panamanian 3-way Avendano catheter placement and continuous bladder irrigation. 5. Castrate-resistant metastatic prostate carcinoma. 6. Acute blood loss anemia secondary to hematuria with decreasing hemoglobin and hematocrit. 7. Hypertension. 8. Normocytic anemia. 9. Granulocytosis. 10. Insulin-requiring diabetes mellitus. 11. Prerenal kidney injury. 12. Mild protein caloric malnutrition. 13. Constipation. 14. Insulin-requiring diabetes mellitus. 15. Congestive heart failure. 16. Back pain. 17. Constipation. 18. Hypothyroidism. PLAN: At this time, the patient is to be continued on the above therapeutic intervention. Plan at t his time, the patient is ordered serial labs. The patient is awaiting urology evaluation and [facility] recommendation who has been notified. CURRENT MEDICATIONS: 1. Colace 100 mg 3 times a day. 2. Amiodarone 200 mg daily. 3. Ditropan 5 mg 3 times a day. 4. DuoNeb nebulizer every 6 hours. 5. Humalog high-dose sliding scale coverage a.c. and at bedtime. 6. Insulin 70/30, 20 units a.c. meals 3 times a day - breakfast, lunch, dinner. 7. Digoxin 0.125 daily. 8. Lasix 40 IV daily. 9. Lidoderm 5% ointment patch to the lumbar spine area. 10. Lipitor 10 mg daily. 11. MiraLax 17 g twice a day. 12. Prednisone 5 mg daily. 13. Protonix 40 mg daily. 14. Rocephin 1 gram daily. 15. Singulair 10 mg at bedtime. 16. Synthroid 100 mcg daily. 17. Tylenol 650 q. 6 p.r.n. At this time, the patient is awaiting a urological evaluation and recommendation, which will direct f urther therapy for hematuria. Coverage for Dr. Polk. Dr. Polk will resume care from 04/06/2017. Dictated and electronically signed, not read. Ariel Yip MD cc: [phone] TT: 04/05/2017 11:22:43 Confirmation # [id number] Dictation # [id number] jn
--- NOTE | 2017-04-05 22:13 | PN ---
DATE: 04/05/2017 The patient is seen in his room on the transitional care unit. PHYSICAL EXAMINATION: GENERAL: Awake, alert and in no acute distress. VITAL SIGNS: He is afebrile, temperature of 98.1, pulse of 63, BP 142/62, respirations 18. ABDOMEN: Soft, nontender, nondistended. His bladder is not palpably distended. There is no rebound or guarding. GENITOURINARY: The Avendano catheter is draining clear urine on slow CBI. LABORATORY DATA: WBC 6.9. Creatinine 1.1, GFR greater than 60. Hemoglobin 10.5, hematocrit 32.6, p latelet count 166. IMPRESSION AND PLAN: The patient had recurrence of his gross hematuria yesterday. On Monday I rutledge ed his Avendano catheter and irrigated out all the clots. The patient was on CBI and it was clear. CBI was then held and he had further bleeding. He has received 2 units of red blood cells and his hemog lobin is stable; however, he has needed repeat bladder irrigations with removal of clot. Hematology consultation has been requested for possible washout coagulopathy, although patient does not appear t o be bleeding that heavily. The plan for now will be to maintain him on CBI tonight. We will reassess the patient tomorrow. If the hematuria continues to occur and he is making clots and obstructing his catheter, the plan unfort unately, will have to be to take the patient back to the operating room at some point to see if there is any actively bleeding vessels which can be cauterized or possibly I will need to change his Avendano catheter to a larger one and irrigate out the clots. However, if patient is discharged home with ac tive hematuria, it is likely that he will return with a ____ Avendano catheter. For now, continue to ir rigate the catheter as needed and continuous bladder irrigation. We will reassess the patient tomorr ow. Eddie Louise MD cc: [phone] TT: 04/05/2017 22:12:46 Confirmation # [id number] Dictation # [id number] tramaine
[2017-04-06] MEDS: Albuterol-Ipratrop 3 mg / 0.5 (3 ml) UD IH SCH ×4 (02:06→22:16)
[2017-04-06] MEDS: Levothyroxine 100 MCG TAB PO SCH (05:51)
[2017-04-06] MEDS: Pantoprazole 40 mg EC Tab PO SCH (05:51)
[2017-04-06] MEDS: cefTRIAXone 1 gm 1 GM/100 ML BAG IVPB SCH (05:52)
[2017-04-06] MEDS: Insulin Lispro (HUMAlog) HIGH Coverage SC SCH ×5 (06:37→23:42)
[2017-04-06 08:05] LABS: ADD MANUAL DIFF? NO
[2017-04-06 08:17] LABS: BASO # 0.05 K/mm3 (0.0-2.0); BASO % 0.6 % (0.0-3.0); EOS # 0.3 (0.0-0.7); EOS % 3.8 % (1.5-5.0); GRAN # 5.28 (1.4-6.5); GRAN % 67.3 % (50.0-68.0); HEMATOCRIT 33.5 % (42.0-52.0); LYMPH # 1.4 (1.2-3.4); LYMPH % 18.1 % (22.0-35.0); MEAN CELL VOLUME 87.2 fL (80.0-105.0); MEAN CORPUSCULAR HEMOGLOBIN 27.1 pg (25.0-35.0); MEAN PLATELET VOLUME 9.5 fl (7.0-11.0); MONO # 0.8 (0.1-0.6); MONO % 10.2 % (1.0-6.0); PLATELET COUNT 192 10^3/uL (120.0-450.0); RED CELL DISTRIBUTION WIDTH 14.8 % (11.5-14.5); WHITE BLOOD COUNT 7.9 10^3/ul (4.5-11.0)
[2017-04-06 08:26] LABS: ALB/GLOB RATIO 1.2 (1.1-1.8); ALKALINE PHOSPHATASE 84 U/L (38-133); ALT/SGPT 44 U/L (7-56); AST/SGOT 44 U/L (15-59); BILIRUBIN,DIRECT 0.3 mg/dL (0.0-0.4); BILIRUBIN,TOTAL 0.3 mg/dL (0.2-1.3); BLOOD UREA NITROGEN 22 mg/dL (7-21); CALCIUM 8.3 mg/dL (8.4-10.5); CARBON DIOXIDE 31 mmol/L (21-33); CHLORIDE 99 mmol/L (98-107); GFR AFRICAN-AMERICAN > 60; GLUCOSE,RANDOM 118 mg/dL (70-110); MAGNESIUM 2.5 mg/dL (1.7-2.2); PHOSPHOROUS 3.6 mg/dL (2.5-4.5); POTASSIUM 4.6 mmol/L (3.6-5.0); SODIUM 135 mmol/L (132-148); TOTAL PROTEIN 5.6 g/dL (5.8-8.3)
[2017-04-06] MEDS: Insulin Human NPH/Reg 70/30 Vial(3 ml) SC SCH ×3 (08:35→17:12)
--- NOTE | 2017-04-06 08:35 | PN ---
DATE: 04/06/2017 The patient is an 87-year-old white male. He was admitted with gross hematuria and abdominal pain. The patient has past history of congestive heart failure. He has a pacemaker. 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 The patient has hypothyroidism. The patient also has indwelling Avendano catheter for urinary retention and blood clots in the bladder. The patient is seen this morning. He is very frustrated about his medical condition; however, he has been seen by Dr. Louise and he is plan keith to do another cystoscopy tomorrow afternoon, but in the meantime, the patient is getting irrigat ion of the bladder continuously and Avendano catheter seems to show blood-stained urine. PHYSICAL EXAMINATION: VITAL SIGNS: The patient's pulse is 60, blood pressure 147/61, respirations are 20, O2 sat is 98% ro om air, temperature 98.1. LUNGS: The patient has breath sounds diminished bilaterally. HEART: Normal sinus rhythm, pacemaker present. ABDOMEN: Soft, some tenderness in the lower abdomen. No masses. CENTRAL NERVOUS SYSTEM: He is conscious, rational, oriented, and also patient feels grief over the m edical condition that he is in. MEDICATIONS: Colace. The patient is on amiodarone, albuterol which is DuoNeb really. The patient i s on insulin coverage, digoxin, Lasix, Lipitor. The patient is on prednisone 5 mg daily, pantoprazol e 40 mg daily. The patient is on Rocephin 1 gram q. 24 hours. The patient is on Singulair 10 mg dulce ly, Synthroid 100 mcg daily. The patient is also on Tylenol p.r.n. for pain. The patient is unable to take medications such as codeine because it causes severe constipation. LABORATORY DATA: The hemoglobin is 10.5 today. His chemistry: The patient's blood sugar is 109. H is other chemical parameters seem to be within reasonable range with magnesium of 2.4. The patient's overall prognosis is guarded. Condition is acute. Bleeding in the bladder is the acut e problem at this time. He does have underlying congestive heart failure, congestive cardiomyopathy. We have requested that the housing coordinator see the patient. The patient is scheduled for procedure to arzate. The patient will be seen by Dr. Louise today and he will follow through on the patient's probl ems. Giselle Polk MD cc: [phone] TT: 04/06/2017 08:34:54 Confirmation # [id number] Dictation # [id number] tn
[2017-04-06] MEDS: Digoxin 125 mcg (0.125 mg) Tab PO SCH (10:31)
[2017-04-06] MEDS: POLYETHYLENE GLYCOL 3350 17 GM/Dose PACKET PO SCH ×2 (10:32→17:13)
[2017-04-06] MEDS: Lidocaine 5% Patch TD SCH (10:32)
--- NOTE | 2017-04-06 18:00 | PN ---
DATE: 04/06/2017 The patient has a 3-way Avendano in, he was getting spasms, it was not draining. I irrigated him in the morning. The urine was clear. I got called through the day that the urine had blocked again, the [facility] irrigated him and she got out some clots. I came back to see him now and changed his Avendano cath eter for 3-way 22 Japanese Avendano catheter. I irrigated out some clots. I could not get any more clots out. The irrigation was crystal clear. I hooked him back up to CBI and the return on CBI, again, w as crystal clear. He has no suprapubic pain, no spasms at this point. He has hormone resistant pros duong cancer. Currently is on Zytiga and prednisone, he could not tolerate Xtandi. I am going to german p him n.p.o. after midnight just in case there are events through the night that require him being ta refugio to the OR for re-fulguration in the morning, but right now he looks crystal clear. Leonides Masterson MD cc: [phone] TT: 04/06/2017 17:59:39 Confirmation # [id number] Dictation # [id number] jn
--- NOTE | 2017-04-06 18:36 | CON ---
DATE: 04/06/2017 REASON FOR CONSULTATION AND FOLLOWUP: History of coronary artery disease, CHF, admitted with hematuria, cardiology followup. BRIEF CLINICAL HISTORY: The patient is an 87-year-old male with past medical history significant for extensive history of coronary artery disease, metastatic prostate cancer, diabetes, hypertension, hyperlipidemia, indwelling Avendano catheter, status post CABG many years ago, status post PTCA, post CABG PTCA, status post AICD. Recently AICD, defibrillator changed with indwelling Avendano catheter, admitted with hematuria. Cardiac consult was called to follow up for coronary artery disease and CABG. The patient denies any chest pain, shortness of breath, any palpitation. PAST MEDICAL HISTORY: Significant for coronary artery disease, CABG, status post AICD, history of PTCA before CABG, history of PTCA after the CABG, history of prostate CA with metastases, history of multiple urinary tract infections, indwelling Avendano catheter, history of deep vein thrombosis, was on Pradaxa at one point, but got held because of hematuria, cardiomyopathy PREVIOUS CARDIAC WORKUP: The patient's recent echo 12/20/2016 shows ejection fraction 45%, trace to mild aortic regurgitation, mild to moderate valvular aortic stenosis, moderate mitral regurgitation, mild to moderate tricuspid regurgitation, RV systolic pressure 43, trace to mild pulmonary insufficiency, a peak gradient of about 20 mm, mean gradient 12, aortic valve area of 1.25 cm2 consistent with mild to moderate aortic stenosis. REVIEW OF SYSTEMS: A 14 point as per HPI. PHYSICAL EXAMINATION: VITAL SIGNS: Temperature afebrile, heart rate 60, blood pressure 130/80. HEENT: PERRLA. Extraocular muscles intact. NECK: Supple. No carotid bruits. No thyromegaly. CHEST: Clear to auscultation. HEART: S1, S2 regular. ABDOMEN: Soft. EXTREMITIES: Clubbing and cyanosis negative. BLOOD WORKUP: As follows: WBC 7.9, hemoglobin 10.4, hematocrit 33.5, platelet count 192. Chemistry shows sodium 138, potassium 4.1, chloride 99, carbon dioxide 31, anion gap of 10, BUN 22, creatinine 1.0, magnesium 2.5. IMPRESSION: Gross hematuria, prostate carcinoma, indwelling catheter, urinary tract infection, history of coronary artery disease, history of coronary artery bypass graft, history of automatic implantable cardioverter defibrillator, history of recent generator change, renal insufficiency, mild to moderate aortic stenosis, valve area 1.25 cm2, trace to mild aortic regurgitation, mild to moderate valvular aortic stenosis, peak gradient 22 mmHg, mean gradient 12. History of cardiomyopathy, decreased left ventricular function, ejection fraction 45%, right ventricular systolic pressure of 43. RECOMMENDATION: Continue amiodarone to prevent going back into atrial fibrillation. Continue gentle diuretics. Monitor H and H. Continue levothyroxine. Overall, the patient's condition is critical. Prison prognosis is extremely guarded. Follow up electrolytes. The patient is clinically not in failure. We will follow with you. Thank you, Dr. Polk, for providing the opportunity in taking care of this patient. Mely Chavarria MD cc: [phone] TT: 04/06/2017 18:35:34 Confirmation # [id number] Dictation # [id number] jn ANNABELLA
--- NOTE | 2017-04-06 20:19 | CON ---
DATE: 04/06/2017 This is the patient's hospital visit on TCU. For Dr. Carballo. CHIEF COMPLAINT: Hematuria. HISTORY OF PRESENT ILLNESS: The patient is an 87-year-old male who sees Dr. Carballo for metast atic prostate carcinoma with abdominal pain with recent UT with the patient now hospitalized for appr oximately 8 days now on TCU with continued hematuria for which Dr. Louise requested Dr. Carballo's tarun tance in helping with the bleeding. He is scheduled for discharge; however, this may be on hold as t he patient will be given medicine from an outpatient pharmacy as the medication recommended is not on formulary here. ALLERGIES: IODINE AND LEVAQUIN. PAST MEDICAL HISTORY: Multiple angioplasties, status post paced defibrillator, cataract surgery, car diac stents x 4, stage IV prostate carcinoma, urinary incontinence to leg bag, non-ST UT on amiodaron e at one point, history of DVT to Pradaxa at one point, renal insufficiency, previously on a Primacor drip. FAMILY HISTORY AND SOCIAL HISTORY: Former [employer] employee. Rare alcohol. MEDICATIONS: Included Ecotrin, Hectorol, insulin, digoxin, Lopressor, meropenem, Protonix, Singulair , Synthroid, Tylenol, vancomycin, prednisone. REVIEW OF SYSTEMS: Essentially negative to questioning except as above. PHYSICAL EXAMINATION: VITAL SIGNS: Temperature 98.5, pulse 66, respirations 14, blood pressure 124/58, pulse ox 97%. HEENT: Unremarkable. NECK: Supple. HEART: Tachy rate, occasional ectopic beat. LUNGS: Rare rhonchi. ABDOMEN: Soft, nontender. EXTREMITIES: No edema. SKIN: Warm and dry. NEUROLOGIC: Awake and alert with a Avendano with significant hematuria appreciated to inspection. LABORATORY DATA: The patient's labs were done. White blood cell count of 7.9, hemoglobin 10.4 statu s post transfusions. According to blood bank, 2 units of packed cells transfused since his admission with hemoglobin 8.6 two days prior, hematocrit 33.5, platelet count 192,000 with a chem metabolic pa abi showing a BUN of 22, creatinine 1.0. Otherwise, normal chem metabolic panel. The digoxin level was 1.0 two days ago. 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 PLAN: The patient is to continue his present medical regimen. We will add tranexamic acid of 600 mg 2 tablets twice today, which is not on formulary at this hospital. It, therefore, will be supplied from the outside pharmacy to be given as a medication as per Dr. Carballo's recommendations. We will monitor clinically and with labs as indicated with transfusions as necessary. It is recommended that the patient continue with his present regimen on TCU for an additional day or two until he has improv ement of his significant hematuria with the prognosis for this patient guarded. Also watch for side e ffects. Aram Hutchins MD cc: [phone] TT: 04/06/2017 20:18:44 Confirmation # [id number] Dictation # [id number]
[2017-04-06] MEDS: TRANEXAMIC ACID 650 MG PO SCH (21:12)
[2017-04-07] MEDS: Albuterol-Ipratrop 3 mg / 0.5 (3 ml) UD IH SCH ×4 (01:31→20:30)
[2017-04-07] MEDS: cefTRIAXone 1 gm 1 GM/100 ML BAG IVPB SCH (05:32)
[2017-04-07] MEDS: Pantoprazole 40 mg EC Tab PO SCH (05:33)
[2017-04-07] MEDS: Levothyroxine 100 MCG TAB PO SCH (05:33)
[2017-04-07 06:52] LABS: ADD MANUAL DIFF? NO
[2017-04-07 07:07] LABS: BASO # 0.03 K/mm3 (0.0-2.0); BASO % 0.4 % (0.0-3.0); EOS # 0.2 (0.0-0.7); GRAN # 6.08 (1.4-6.5); GRAN % 74.8 % (50.0-68.0); HEMATOCRIT 30.2 % (42.0-52.0); LYMPH % 12.7 % (22.0-35.0); MEAN CELL VOLUME 86.8 fL (80.0-105.0); MEAN CORPUSCULAR HEMOGLOBIN 27.3 pg (25.0-35.0); MEAN CORPUSCULAR HGB CONC 31.5 g/dl (31.0-37.0); MEAN PLATELET VOLUME 9.5 fl (7.0-11.0); MONO # 0.8 (0.1-0.6); MONO % 10.1 % (1.0-6.0); PLATELET COUNT 170 10^3/uL (120.0-450.0); RED CELL DISTRIBUTION WIDTH 14.5 % (11.5-14.5); WHITE BLOOD COUNT 8.1 10^3/ul (4.5-11.0)
[2017-04-07] MEDS: Insulin Lispro (HUMAlog) HIGH Coverage SC SCH ×4 (07:32→21:27)
[2017-04-07 07:36] LABS: ALB/GLOB RATIO 1.3 (1.1-1.8); ALKALINE PHOSPHATASE 86 U/L (38-133); ALT/SGPT 41 U/L (7-56); AST/SGOT 43 U/L (15-59); BILIRUBIN,DIRECT 0.3 mg/dL (0.0-0.4); BILIRUBIN,TOTAL 0.4 mg/dL (0.2-1.3); BLOOD UREA NITROGEN 23 mg/dL (7-21); CALCIUM 8.2 mg/dL (8.4-10.5); CARBON DIOXIDE 30 mmol/L (21-33); CHLORIDE 97 mmol/L (98-107); GFR AFRICAN-AMERICAN > 60; GLUCOSE,RANDOM 181 mg/dL (70-110); MAGNESIUM 2.5 mg/dL (1.7-2.2); PHOSPHOROUS 3.7 mg/dL (2.5-4.5); POTASSIUM 4.7 mmol/L (3.6-5.0); SODIUM 133 mmol/L (132-148); TOTAL PROTEIN 5.4 g/dL (5.8-8.3)
[2017-04-07] MEDS: Insulin Human NPH/Reg 70/30 Vial(3 ml) SC SCH ×3 (08:40→17:44)
[2017-04-07] MEDS: TRANEXAMIC ACID 650 MG PO SCH ×2 (09:24→17:43)
[2017-04-07] MEDS: Lidocaine 5% Patch TD SCH (09:25)
[2017-04-07] MEDS: Digoxin 125 mcg (0.125 mg) Tab PO SCH (09:25)
[2017-04-07] MEDS: POLYETHYLENE GLYCOL 3350 17 GM/Dose PACKET PO SCH ×2 (09:26→17:45)
--- NOTE | 2017-04-07 10:12 | PN ---
DATE: 04/07/2017 The patient is in the transitional care unit of the [facility] in [place], room 321, be d 1. The patient was admitted with hematuria. The patient has an indwelling Avendano catheter. He has histo ry of congestive heart failure, diabetes mellitus, history of carcinoma of the prostate metastatic to the lymph nodes. The patient has had chronic urinary tract infection. The patient has recently pro longed bleeding from the bladder and he was admitted and treated in acute care floor and then [facility] and transferred to the transitional care unit for continued care of his chronic bleeding problem. PHYSICAL EXAMINATION: VITAL SIGNS: This morning, the patient's pulse is 74, blood pressure 142/58, respirations are 20, O2 sat 100%, temperature 98.2. LUNGS: Clear. HEART: Normal sinus rhythm. The patient has a pacemaker which is ____. ABDOMEN: Soft, no tenderness, no masses. The Avendano catheter is draining clear fluid. He has irriga tion present continuously to flush any blood clots from the bladder. The patient was irrigated by Dr Sury Masterson yesterday a couple of times and his Avendano catheter was changed yesterday. CENTRAL NERVOUS SYSTEM: Within normal limits at this time. The patient was put on tranexamic acid to stop the bleeding from the bladder. This was done by Dr. Teodora soto, his oncologist, and he is aware of the patient's clinical condition from prior contact. Montgomery alfredo, the patient has been advised regarding this medication because it has side effects such as throm bosis of the arterial and venous side and the patient can also have complications secondary to using this medication for reasons that the patient has multiple stents and he has past history of deep vein thrombosis. We had to cautiously give this medicine and follow up. At this time, the patient is wa iting for Dr. Masterson to make a decision whether he is going to get a cystoscopy or not, but we told the nurse to follow up on that. We will continue current management and hopefully, the patient's bleedi ng will stop and then we can probably manage the patient as an outpatient. His medications will be c ontinued the same as yesterday. No new medications are ____ other than the tranexamic acid which is given twice a day to stop the bleeding in the bladder. BLOOD WORK: The hemoglobin is 9.5 today. It was 10.5 yesterday, so the bleeding has caused a drop i n the hemoglobin, but at this time, we will treat him with medical management. Giselle Polk MD cc: [phone] TT: 04/07/2017 09:14:48 Confirmation # [id number] Dictation # [id number] tn
--- NOTE | 2017-04-07 13:26 | PN ---
DATE: 04/07/2017 This is the patient's hospital visit on the TCU floor. For Dr. Carballo. SUBJECTIVE: The patient is an 87-year-old male, seen sitting up in bed in TCU with Avendano still with bloody urine despite yesterday evening's clearing of his hematuria. He was started on tranexamic aci d 2 tablets twice a day, which the patient reports he received 1 tablet initially and then 2 tablets last night and 2 tablets this morning with recommendations for the medication to be absorbed and effe ctive to ensure there are no side effects prior to being discharged from TCU. He is otherwise in no acute distress. OBJECTIVE AND PHYSICAL EXAMINATION: VITAL SIGNS: Temperature 98, pulse 70, respirations 14, blood pressure 120/59, pulse ox 96%. HEENT: Unremarkable. NECK: Supple. HEART: Regular rate, occasional ectopic beat. LUNGS: Clear. ABDOMEN: Soft, nontender with a Avendano with hematuria noted. EXTREMITIES: No edema. SKIN: Warm, dry and clear. NEUROLOGIC: He is awake and alert. The patient's labs were done. White blood cell count of 8.1, hemoglobin 9.5, hematocrit 30.2, platel et count 170,000 with a chem metabolic panel showing a BUN of 23, normal creatinine of 1.2 with calci um of 8.2. Otherwise, normal chem metabolic panel. ASSESSMENT: For this patient is symptomatic anemia, status post transfusions, castrate-resistant pro state cancer with hematuria second to this, status post myocardial infarction, arteriosclerotic cardi avascular disease, hypothyroidism, deconditioning, atrial fibrillation and peripheral vascular diseas e, diabetes. After conversation with Dr. Carballo, we will continue his present medical regimen with the tranexamic acid, which is not on formulary, patient had to purchase with the patient to be monitored by his [facility] medical doctor with discharge once he is stable. Aram Hutchins MD cc: [phone] TT: 04/07/2017 13:25:49 Confirmation # [id number] Dictation # [id number]
[2017-04-08] MEDS: Albuterol-Ipratrop 3 mg / 0.5 (3 ml) UD IH SCH ×4 (01:11→20:15)
[2017-04-08] MEDS: Pantoprazole 40 mg EC Tab PO SCH (05:57)
[2017-04-08] MEDS: cefTRIAXone 1 gm 1 GM/100 ML BAG IVPB SCH (05:57)
[2017-04-08] MEDS: Levothyroxine 100 MCG TAB PO SCH (05:58)
[2017-04-08] MEDS: Insulin Lispro (HUMAlog) HIGH Coverage SC SCH ×4 (06:31→21:58)
[2017-04-08 07:21] LABS: ADD MANUAL DIFF? NO
[2017-04-08 07:23] LABS: BASO # 0.03 K/mm3 (0.0-2.0); BASO % 0.4 % (0.0-3.0); EOS # 0.2 (0.0-0.7); EOS % 2.8 % (1.5-5.0); GRAN # 5.36 (1.4-6.5); GRAN % 69.5 % (50.0-68.0); LYMPH # 1.2 (1.2-3.4); LYMPH % 14.9 % (22.0-35.0); MEAN CELL VOLUME 87.1 fL (80.0-105.0); MEAN CORPUSCULAR HEMOGLOBIN 27.9 pg (25.0-35.0); MEAN CORPUSCULAR HGB CONC 32.1 g/dl (31.0-37.0); MEAN PLATELET VOLUME 9.3 fl (7.0-11.0); MONO % 12.4 % (1.0-6.0); PLATELET COUNT 178 10^3/uL (120.0-450.0); RED CELL DISTRIBUTION WIDTH 14.5 % (11.5-14.5); WHITE BLOOD COUNT 7.7 10^3/ul (4.5-11.0)
[2017-04-08 07:41] LABS: ALB/GLOB RATIO 1.3 (1.1-1.8); ALKALINE PHOSPHATASE 80 U/L (38-133); ALT/SGPT 48 U/L (7-56); AST/SGOT 41 U/L (15-59); BILIRUBIN,DIRECT 0.3 mg/dL (0.0-0.4); BILIRUBIN,TOTAL 0.3 mg/dL (0.2-1.3); BLOOD UREA NITROGEN 26 mg/dL (7-21); CALCIUM 8.1 mg/dL (8.4-10.5); CARBON DIOXIDE 28 mmol/L (21-33); CHLORIDE 98 mmol/L (98-107); GFR AFRICAN-AMERICAN > 60; GLUCOSE,RANDOM 170 mg/dL (70-110); MAGNESIUM 2.4 mg/dL (1.7-2.2); PHOSPHOROUS 3.8 mg/dL (2.5-4.5); POTASSIUM 4.2 mmol/L (3.6-5.0); SODIUM 133 mmol/L (132-148); TOTAL PROTEIN 5.4 g/dL (5.8-8.3)
[2017-04-08] MEDS: Insulin Human NPH/Reg 70/30 Vial(3 ml) SC SCH ×3 (07:45→17:26)
--- NOTE | 2017-04-08 08:21 | CP.PCM.PN ---
Subjective - Date & Time of Evaluation Date of Evaluation: 04/08/17 Time of Evaluation: 08:00 - Subjective Subjective: Patient's urine is clear this morning. He says that last night clots were passing through the schroeder catheter. Objective - Vital Signs/Intake and Output Vital Signs (last 24 hours): Temp Pulse Resp BP Pulse Ox 98 F 70 14 120/59 L 96 04/07/17 12:28 04/07/17 12:28 04/07/17 12:28 04/07/17 12:28 04/07/17 12:28 Intake and Output: 04/08/17 04/08/17 06:59 18:59 Intake Total 240 Output Total 1200 Balance -960 - Medications Medications: Current Medications Acetaminophen (Tylenol 325mg Tab) 650 mg PO Q6H PRN PRN Reason: Bladder Spasm Last Admin: 04/05/17 21:31 Dose: 650 mg Albuterol/Ipratropium (Duoneb 3 Mg/0.5 Mg (3 Ml) Ud) 3 ml IH [id number] [facility] Last Admin: 04/08/17 07:45 Dose: 3 ml Amiodarone HCl (Cordarone) 200 mg PO DAILY [facility] PRN Reason: Protocol Last Admin: 04/07/17 09:22 Dose: 200 mg Atorvastatin Calcium (Lipitor) 10 mg PO DIN [facility] PRN Reason: Protocol Last Admin: 04/07/17 17:45 Dose: 10 mg Digoxin (Lanoxin) 0.125 mg PO DAILY [facility] PRN Reason: Protocol Last Admin: 04/07/17 09:25 Dose: 0.125 mg Docusate Sodium (Colace) 100 mg PO TID [facility] Last Admin: 04/07/17 17:43 Dose: 100 mg Furosemide (Lasix) 40 mg IVP DAILY [facility] Last Admin: 04/07/17 09:29 Dose: 40 mg Home Med (Home Med) 1 unit PO BID [facility] Last Admin: 04/07/17 17:43 Dose: 1 unit Ceftriaxone Sodium (Rocephin 1 Gram Ivpb) 1 gm in 100 mls @ 100 mls/hr IVPB 0600 [facility] PRN Reason: Protocol Last Admin: 04/08/17 05:57 Dose: 100 mls/hr Insulin Human Lispro (Humalog High) 0 units SC ACHS [facility] PRN Reason: Protocol Last Admin: 04/08/17 06:31 Dose: Not Given Levothyroxine Sodium (Synthroid) 100 mcg PO 0630 [facility] PRN Reason: Protocol Last Admin: 04/08/17 05:58 Dose: 100 mcg Lidocaine (Lidoderm) 1 ea TD DAILY [facility] Last Admin: 04/07/17 09:25 Dose: 1 ea Montelukast Sodium (Singulair) 10 mg PO HS [facility] PRN Reason: Protocol Last Admin: 04/07/17 21:28 Dose: 10 mg Pantoprazole Sodium (Protonix Ec Tab) 40 mg PO 0630 [facility] PRN Reason: Protocol Last Admin: 04/08/17 05:57 Dose: 40 mg Polyethylene Glycol (Miralax) 17 gm PO BID [facility] Last Admin: 04/07/17 17:45 Dose: 17 gm Prednisone (Prednisone Tab) 5 mg PO 0800 [facility] PRN Reason: Protocol Last Admin: 04/07/17 08:26 Dose: 5 mg - Labs Labs: 04/08/17 07:00 04/08/17 07:00 - Constitutional Appears: No Acute Distress - Head Exam Head Exam: ATRAUMATIC, NORMOCEPHALIC - Respiratory Exam Respiratory Exam: Clear to Ausculation Bilateral, NORMAL BREATHING PATTERN - Cardiovascular Exam Cardiovascular Exam: +S1, +S2 - GI/Abdominal Exam GI & Abdominal Exam: Soft, Normal Bowel Sounds. absent: Tenderness - Extremities Exam Extremities Exam: Normal Inspection - Neurological Exam Neurological Exam: Alert, Awake, Oriented x3 Assessment and Plan - Assessment and Plan (Free Text) Assessment: Hematuria Chronic heart failure COPD HTN BPH Plan: Patient's urine is now clear, but he says clots were passing through last night. Will continue to monitor for bleeding. Monitor hemoglobin and hematocrit. continue respiratory treatments and prednisone
[2017-04-08] MEDS: Lidocaine 5% Patch TD SCH (10:12)
[2017-04-08] MEDS: TRANEXAMIC ACID 650 MG PO SCH ×2 (10:13→17:28)
[2017-04-08] MEDS: POLYETHYLENE GLYCOL 3350 17 GM/Dose PACKET PO SCH ×2 (10:15→17:28)
[2017-04-08] MEDS: Digoxin 125 mcg (0.125 mg) Tab PO SCH (10:17)
--- NOTE | 2017-04-08 13:31 | PN ---
DATE: 04/08/2017 REASON FOR CONSULTATION AND FOLLOWUP: History of coronary artery disease, CHF, admitted with hematu linnea, cardiac evaluation and follow up. BRIEF CLINICAL HISTORY: This is an 87-year-old male with past medical history significant for extens ja history of coronary artery disease, metastatic prostate cancer, admitted with hematuria. The pat ient is continuous bladder irrigation, feels better. Denies any chest pain, shortness of breath, any palpitation. Recently, ____ changed. PHYSICAL EXAMINATION: VITAL SIGNS: Temperature afebrile, heart rate 60, blood pressure 102/56. HEENT: PERRLA. Extraocular muscles intact. NECK: Supple. No carotid bruits. No thyromegaly. CHEST: Clear to auscultation. HEART: S1, S2 regular. ABDOMEN: Soft. EXTREMITIES: Clubbing and cyanosis negative. LABORATORY DATA: Blood workup as follows: WBC 7.7, hemoglobin 9.1, hematocrit 29.0, platelet count 178. Chemistry shows sodium 137, potassium 4.2, chloride 90, carbon dioxide 29, anion gap of 11, BUN 26, creatinine 1.1. IMPRESSION: Prostate cancer, indwelling catheter, hematuria, coronary artery disease, coronary arter y bypass graft, pre coronary artery bypass graft percutaneous transluminal coronary angioplasty, post coronary artery bypass graft percutaneous transluminal coronary angioplasty, ____ dysfunction, eject ion fraction decreased, cardiomyopathy, moderate aortic valve area of 1.2 cm2. Most recent echo 04/2017 shows ejection fraction 45%, moderate valvular aortic stenosis, trace to mild pulmonary insuff iciency. Peak gradient across the ____ was 20, mean of 12, trace to mild aortic regurgitation, moder ate mitral regurgitation, history of paroxysmal atrial fibrillation, now is in normal sinus. Gross h ematuria improves on continuous bladder irrigation, history of deep venous thrombosis, off anticoagul ation, history of paroxysmal atrial fibrillation, off anticoagulation. RECOMMENDATION: Continue amiodarone to prevent back into A-fib. Continue gentle diuretics. Monitor H and H. Continue levothyroxine. Continue continuous bladder irrigation. Continue digoxin, contin ue gentle Lasix. We will follow with you. Thank you, Dr. Polk, for providing us the opportunity in taking care of the patient. Mely Chavarria MD cc: [facility] TT: 04/08/2017 13:30:22 Confirmation # [id number] Dictation # [id number] tn
--- NOTE | 2017-04-08 16:56 | PN ---
DATE: 04/08/[address] Carballo. SUBJECTIVE: The patient is an 87-year-old male seen sitting up in bed with his Avendano bag now with am jez colored urine, hematuria has subsided. He is preparing for discharge home tomorrow and is in no acute distress this visit, reporting that he feels significantly better now that the bleeding has sto pped. He is otherwise without complaint. PHYSICAL EXAMINATION: VITAL SIGNS: Temperature 98, pulse 66, respirations 14, blood pressure 118/56, pulse ox 96%. HEENT: Unremarkable. NECK: Supple. HEART: Regular rate. LUNGS: Clear. ABDOMEN: Soft. EXTREMITIES: No edema. SKIN: Warm and dry. NEUROLOGIC: Awake and alert. Avendano in situ with chapo colored urine. The patient was seen by Dr. Chavarria with his present medications to continue with tranexamic acid begun. LABORATORY DATA: The patient's labs were done, white blood cell count 7.7, hemoglobin 9.3, hematocri t 29.0, platelet count of 178,000 with a chem metabolic panel within normal limits except for calcium of 8.1, BUN of 26, creatinine 1.1. The patient has been transfused while on the medical floor, 1 unit. ASSESSMENT: Symptomatic anemia, severe hematuria, castrate-resistant prostate cancer, history of sukh cardial infarction, atherosclerotic cardiovascular disease, hypothyroidism, deconditioning, atrial fi brillation, peripheral vascular disease, diabetes. PLAN: The patient is now preparing for discharge home tomorrow on his present medical regimen. Prog nosis for this patient is guarded. Aram Hutchins MD cc: [id number] TT: 04/08/2017 16:55:34 Confirmation # [id number] Dictation # [id number] tramaine
--- NOTE | 2017-04-08 21:12 | PN ---
DATE: 04/07/2017 REASON FOR CONSULTATION AND FOLLOWUP: History of coronary artery disease, CHF, admitted with hematur ia, cardiology followup. SUBJECTIVE: The patient denies any chest pain, shortness of breath, any palpitation. PHYSICAL EXAMINATION: VITAL SIGNS: Temperature afebrile, heart rate 70, blood pressure 120/____. HEENT: PERRLA. Extraocular muscles intact. NECK: Supple. No carotid bruit. No thyromegaly. CHEST: Clear to auscultation. HEART: S1, S2 regular. ABDOMEN: Soft. EXTREMITIES: Clubbing and cyanosis negative. LABORATORY DATA: Blood workup as follows: WBC ____, hemoglobin ____, hematocrit 30.2, platelet coun t 170. Chemistry shows sodium 130, potassium ____, chloride ____, carbon dioxide 30, anion gap ____ 1.2. IMPRESSION: Hematuria, anemia, prostate cancer, history of coronary artery disease, coronary artery bypass graft, history of ____ history of ischemic cardiomyopathy, status post defibrillator, history of indwelling Avendano catheter, had [id number] myocardial infarction, renal insufficiency and decis ion was made to treat medically, prostate cancer. RECOMMENDATION: Continue supportive care. Monitor H and H. Continue amiodarone to prevent patient g oing back into AFib. The patient at one point was anticoagulated ____ because of hematuria. Recent echo shows ejection fraction 45%, moderate aortic stenosis, valve area 1.25 cm2. Trace to mild aron l regurgitation, moderate aortic stenosis, valve area of 1.25 cm2, mean gradient 12, peak gradient 22 , cardiomyopathy. Continue ____ continue amiodarone to prevent from going back into AFib. Monitor H and H, monitor electrolytes. Continue gentle Lasix. Overall patient's condition is critical, longt erm prognosis is guarded. We will follow with you. Mely Chavarria MD cc: [id number] TT: 04/07/2017 20:26:37 Confirmation # [id number] Dictation # [id number] rn
[2017-04-09] MEDS: Albuterol-Ipratrop 3 mg / 0.5 (3 ml) UD IH SCH ×2 (03:05→07:51)
[2017-04-09] MEDS: cefTRIAXone 1 gm 1 GM/100 ML BAG IVPB SCH (05:00)
[2017-04-09] MEDS: Pantoprazole 40 mg EC Tab PO SCH (05:33)
[2017-04-09] MEDS: Levothyroxine 100 MCG TAB PO SCH (05:33)
[2017-04-09 06:21] VITALS: RESP 18; TEMP 98.3; O2SAT 99
[2017-04-09] MEDS: Insulin Human NPH/Reg 70/30 Vial(3 ml) SC SCH ×2 (06:45→08:05)
[2017-04-09] MEDS: Insulin Lispro (HUMAlog) HIGH Coverage SC SCH (06:45)
[2017-04-09 07:29] LABS: ADD MANUAL DIFF? NO
[2017-04-09 08:11] LABS: ALB/GLOB RATIO 1.2 (1.1-1.8); ALKALINE PHOSPHATASE 99 U/L (38-133); ALT/SGPT 51 U/L (7-56); AST/SGOT 50 U/L (15-59); BILIRUBIN,DIRECT 0.3 mg/dL (0.0-0.4); BILIRUBIN,TOTAL 0.3 mg/dL (0.2-1.3); BLOOD UREA NITROGEN 24 mg/dL (7-21); CALCIUM 8.8 mg/dL (8.4-10.5); CARBON DIOXIDE 30 mmol/L (21-33); CHLORIDE 99 mmol/L (98-107); GFR AFRICAN-AMERICAN > 60; GLUCOSE,RANDOM 78 mg/dL (70-110); MAGNESIUM 2.5 mg/dL (1.7-2.2); PHOSPHOROUS 3.8 mg/dL (2.5-4.5); POTASSIUM 4.1 mmol/L (3.6-5.0); SODIUM 137 mmol/L (132-148); TOTAL PROTEIN 6.6 g/dL (5.8-8.3)
[2017-04-09 08:17] LABS: BASO # 0.05 K/mm3 (0.0-2.0); BASO % 0.6 % (0.0-3.0); EOS # 0.2 (0.0-0.7); EOS % 2.7 % (1.5-5.0); GRAN # 6.41 (1.4-6.5); GRAN % 71.4 % (50.0-68.0); HEMATOCRIT 34.4 % (42.0-52.0); LYMPH # 1.4 (1.2-3.4); LYMPH % 15.5 % (22.0-35.0); MEAN CELL VOLUME 87.8 fL (80.0-105.0); MEAN CORPUSCULAR HEMOGLOBIN 27.3 pg (25.0-35.0); MEAN CORPUSCULAR HGB CONC 31.1 g/dl (31.0-37.0); MEAN PLATELET VOLUME 9.7 fl (7.0-11.0); MONO # 0.9 (0.1-0.6); MONO % 9.8 % (1.0-6.0); PLATELET COUNT 237 10^3/uL (120.0-450.0); RED CELL DISTRIBUTION WIDTH 14.5 % (11.5-14.5)
--- NOTE | 2017-04-09 09:33 | PN ---
DATE: 04/09/2017 The patient is in the transitional care unit, room 321, bed 1. The patient was admitted to the trans itional care unit for antibiotic treatment, management of prolonged intractable hematuria. PAST MEDICAL HISTORY: Significant in that of congestive heart failure, congestive cardiomyopathy. 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 ALLERGIES: THE PATIENT IS ALSO ALLERGIC TO MEDICATION SUCH IV CONTRAST DYE. THE PATIENT IS ALLER GIC TO LEVOFLOXACIN. PHYSICAL EXAMINATION: VITAL SIGNS: This morning, the pulse is 60, blood pressure 134/61, respirations are 18, O2 sat 99% o n 2 liters of oxygen. The patient's temperature 98.3. LUNGS: Clinically clear. HEART: Normal sinus rhythm. The patient has a pacemaker. ABDOMEN: Soft, distended. There is some mild discomfort. CENTRAL NERVOUS SYSTEM: The patient is conscious, rational, oriented. No focal neurological deficit . MEDICATIONS AT HOME. He will be discharged today. He will continue to take his medicines. He will be on Colace. The patient takes 100 mg 3 times a day. The patient takes amiodarone 200 mg daily. T he patient is on DuoNeb respiratory treatment at home. The patient is on insulin coverage for diabet es. The patient is on digoxin 125 mcg daily, Lasix 40 mg twice a day p.o. The patient is on Lipitor 10 mg daily. The patient is on MiraLax 17 grams daily p.o. at bedtime at night, prednisone 5 mg dulce ly, pantoprazole which is Protonix 40 mg daily. The patient is on Singulair 10 mg daily, Synthroid 1 00 mcg daily. The patient will not take any aspirin. He is being treated with tranexamic acid for c ontrol of heavy bleeding from the urinary tract. Tranexamic acid is an agent that causes interferenc e with plasminogen. The patient's Plavix was discontinued during his last admission. The tranexamic acid is 650 mg b.i.d. The patient is aware of this medicines side effects and he has been informed and the risk is explaine d to the patient. However, the patient is stabilized with his medicines as far as the bleeding is co ncerned. We will continue all his medications . He will be on a heart healthy diet, diabetic. LABORATORY WORK: The hemoglobin 9.3. He gets medication to increase the iron content in the blood i n order to synthesis more hemoglobin. The last chemistry tests done on 04/08 shows good renal functi on. Creatinine is 1.1, BUN is 26, his blood sugar is 186. His magnesium was 2.4, total protein is 5 .4. The patient's condition is improved. His overall prognosis is guarded. He will be on continued chantell tment with indwelling Avendano catheter because of the urinary retention that has been a problem for mor e than 2 years. Giselle Polk MD cc: [id number] TT: 04/09/2017 09:32:08 Confirmation # [id number] Dictation # [id number]
[2017-04-09] MEDS: TRANEXAMIC ACID 650 MG PO SCH (10:15)
[2017-04-09] MEDS: Digoxin 125 mcg (0.125 mg) Tab PO SCH (10:16)
[2017-04-09] MEDS: Lidocaine 5% Patch TD SCH (10:17)
[2017-04-09] MEDS: POLYETHYLENE GLYCOL 3350 17 GM/Dose PACKET PO SCH (10:17)
[2017-04-09 10:21] VITALS: BP 119/57; PULSE 61; PULSE 63
--- NOTE | 2017-04-09 17:36 | DS ---
BRIEF HISTORY: This is an 87-year-old male who was admitted from the acute floor to the transitional care unit after the patient was treated for gross hematuria. The patient had undergone cystoscopy with fulguration of telangiectasias. He was also transfused 1 unit of packed red blood cells while on the acute floor. The patient was then transferred to transitional care unit for deconditioning, gait dysfunction as well as for monitoring for hematuria. HOSPITAL COURSE: Dr. Louise and Dr. Masterson, who are his urologists, were consulted. Initially when the patient came to the transitional care unit, continuous bladder irrigation was discontinued. However, the patient began bleeding once again with large clots, which were unable to pass through the Avendano catheter. The patient was started again on continuous bladder irrigation. His hemoglobin fell to 8.6. He was transfused another unit of packed red blood cells and his hemoglobin went up to 10.5. The patient was seen by Dr. Masterson once again and a larger Avendano catheter, a 22-Hebrew, was inserted so that the large clots could pass through. He was also seen by Dr. Carballo, the oncologist and started on tranexamic acid. With the larger catheter, the patient's hematuria seemed to subside. He was passing clear urine and discharged home in stable condition, although his overall prognosis is poor. DISCHARGE DIAGNOSES: Gross hematuria, metastatic prostate cancer, chronic heart failure, chronic obstructive pulmonary disease, hypertension, benign prostatic hypertrophy, hypothyroidism, chronic kidney disease. DISCHARGE MEDICATIONS: Albuterol nebulizer q.6 hours as needed for shortness of breath, amiodarone 200 mg daily, Hectorol 0.5 mcg daily, Humulin 70/30, 20 units before meals and at night and with digoxin 125 mcg daily, Lasix 40 mg twice a day, Lipitor 10 mg at night, PhosLo 667 mg daily, prednisone 5 mg daily , Protonix 40 mg daily, Singulair 10 mg daily, Synthroid 100 mcg daily and tranexamic acid 650 mg twice a day. FOLLOWUP: The patient will be seen in the office next Monday. Sreedhar Polk MD cc: [id number] TT: 04/09/2017 17:36:13 dn [email or web address]
== END 2017-04-09 11:00 | disposition home health service (06) | DRG 92 ==
LOC: TRCU 17:12
PROVIDERS: ADMIT Internal Medicine; ATTEND Internal Medicine
PROC: 3E0F7GC Introduction of Other Therapeutic Substance into Respiratory Tract, Via Natural or Artificial Opening (ICD-10-PCS; 2017-03-29)
PROC: F07Z9FZ Gait Training/Functional Ambulation Treatment using Assistive, Adaptive, Supportive or Protective Equipment (ICD-10-PCS; principal; 2017-03-30)
PROC: F08Z4FZ Home Management Treatment using Assistive, Adaptive, Supportive or Protective Equipment (ICD-10-PCS; 2017-03-30)
DX: R26.89 Other abnormalities of gait and mobility (principal); C79.51 Secondary malignant neoplasm of bone; C77.9 Secondary and unspecified malignant neoplasm of lymph node, unspecified; C61 Malignant neoplasm of prostate; N30.21 Other chronic cystitis with hematuria; N02.9 Recurrent and persistent hematuria with unspecified morphologic changes; I13.0 Hypertensive heart and chronic kidney disease with heart failure and stage 1 through stage 4 chronic kidney disease, or unspecified chronic kidney disease; I42.0 Dilated cardiomyopathy; E11.51 Type 2 diabetes mellitus with diabetic peripheral angiopathy without gangrene; I50.9 Heart failure, unspecified; D62 Acute posthemorrhagic anemia; E44.1 Mild protein-calorie malnutrition; E11.65 Type 2 diabetes mellitus with hyperglycemia; Z79.2 Long term (current) use of antibiotics; J44.9 Chronic obstructive pulmonary disease, unspecified; G89.3 Neoplasm related pain (acute) (chronic); K59.00 Constipation, unspecified; E03.9 Hypothyroidism, unspecified; E78.5 Hyperlipidemia, unspecified; I25.10 Atherosclerotic heart disease of native coronary artery without angina pectoris; I08.3 Combined rheumatic disorders of mitral, aortic and tricuspid valves; I87.2 Venous insufficiency (chronic) (peripheral); M51.36 Other intervertebral disc degeneration, lumbar region; I25.5 Ischemic cardiomyopathy; I48.0 Paroxysmal atrial fibrillation; N40.1 Benign prostatic hyperplasia with lower urinary tract symptoms; R33.8 Other retention of urine; N18.9 Chronic kidney disease, unspecified; Z79.4 Long term (current) use of insulin; Z95.5 Presence of coronary angioplasty implant and graft; I25.2 Old myocardial infarction; Z95.1 Presence of aortocoronary bypass graft; Z95.810 Presence of automatic (implantable) cardiac defibrillator; Z86.718 Personal history of other venous thrombosis and embolism

== ENCOUNTER 2017-04-23 11:41 | Inpatient (IN) | payer MEDICARE ==
[2017-04-23 11:44] VITALS: BMI 25.0
[2017-04-23] MEDS ORDERED: Albuterol-Ipratrop 3 mg / 0.5 (3 ml) UD IH STA (12:11)
--- NOTE | 2017-04-23 12:15 | ED PDOC ---
Arrival/HPI - General Chief Complaint: Shortness Of Breath Time Seen by Provider: 04/23/17 11:46 Historian: Patient - History of Present Illness Narrative History of Present Illness (Text): 04/23/17 12:10 A 87 year old male, whose past medical history includes prostate cancer, chronic Meade catheter, diabetes, pacemaker, CAD, CHF and COPD, presents to the emergency department complaining of abdominal pain for the past 4 days. Patient reports chronic constipation. He states his last bowel movement was 4 days ago. Patient also complains of shortness of breath, cough and wheezing. Patient notes hematuria but denies any fever, chills, nausea, vomiting, chest pain, headache or any other complaints. Patient denies any history of abdominal surgeries. PMD: Dr. Polk Time/Duration: Other (4 days) Symptom Course: Unchanged Quality: Other Context: Home Past Medical History - Provider Review Nursing Documentation Reviewed: Yes - Infectious Disease Hx of Infectious Diseases: None - Tetanus Immunization Tetanus Immunization: Unknown - Cardiac Hx Cardiac Disorders: Yes Hx Congestive Heart Failure: Yes - Pulmonary Hx Chronic Obstructive Pulmonary Disease (COPD): Yes - Neurological Hx Neurological Disorder: No - HEENT Hx HEENT Disorder: Yes Hx Cataracts: Yes (WITH b/t SURGERY) - Renal Hx Renal Failure: Yes - Endocrine/Metabolic Hx Diabetes Mellitus Type 2: Yes Hx Hypothyroidism: Yes - Hematological/Oncological Hx Blood Transfusions: Yes Hx Blood Transfusion Reaction: No (none as per patient) - Integumentary Hx Dermatological Disorder: No - Musculoskeletal/Rheumatological Hx Arthritis: Yes - Gastrointestinal Hx Gastrointestinal Disorders: No - Genitourinary/Gynecological Hx Genitourinary Disorders: Yes (URINARY RETENTION CHRONIC MEADE) Hx Reproductive Disorders: Yes (PROSTATE CA) - Psychiatric Hx Emotional Abuse: No Hx Physical Abuse: No Hx Substance Use: No - Surgical History Hx Cardiac Catheterization: Yes (w/ 4 stents) Hx Coronary Stent: Yes (X4) Hx Open Heart Surgery: Yes Other/Comment: PACEMAKER/AICD,MULTIPLE ANGIOPLASTIES,CATARACT SURGERY,CARDIAC STENTS X 4,QUADRUPLE BYPASS - Anesthesia Hx Anesthesia Reactions: No (none as per patient) Hx Malignant Hyperthermia: No - Suicidal Assessment Feels Threatened In Home Enviroment: No Family/Social History - Physician Review Nursing Documentation Reviewed: Yes Family/Social History: No Known Family HX Smoking Status: Never Smoked Hx Alcohol Use: No Hx Substance Use: No Hx Substance Use Treatment: No Allergies/Home Meds Allergies/Adverse Reactions: Allergies Iodinated Contrast- Oral and IV Dye Allergy (Verified 04/23/17 11:49) ANAPHYLAXIS levofloxacin [From Levaquin] Allergy (Verified 04/23/17 11:49) ANAPHYLAXIS Home Medications: Home Meds Medication Instructions Recorded Confirmed Amiodarone HCl 200 mg PO DAILY 06/14/12 04/23/17 Montelukast [Singulair] 10 mg PO DAILY 06/14/12 04/23/17 Pantoprazole [Protonix EC Tab] 40 mg PO DAILY 05/30/14 04/23/17 Insulin Human NPH/Reg [HumuLIN 20 units SC ACHS 04/09/16 04/23/17 70/30 (NPH/Reg)] Calcium Acetate [Phoslo] 667 mg PO DAILY 07/25/16 04/23/17 Digoxin [Lanoxin] 0.125 mg PO DAILY 07/25/16 04/23/17 Furosemide [Lasix] 40 mg PO BID 07/25/16 04/23/17 Levothyroxine [Synthroid] 100 mcg PO DAILY 07/25/16 04/23/17 predniSONE [predniSONE Tab] 10 mg PO BID 07/25/16 04/23/17 Albuterol 0.083% [Albuterol 0.083% 3 ml IH QID 11/19/16 04/23/17 Inhal Raissa (2.5 mg/3 ml) UD] Acetaminophen/Codeine 1 tab PO PRN PRN 04/23/17 04/23/17 [Tylenol/Codeine 300 MG/30 MG] Amoxicillin/Clavulanate [Augmentin 1 tab PO BID 04/23/17 04/23/17 250 MG-125 MG] Tranexamic Acid 2 tab PO BID 04/23/17 04/23/17 Review of Systems - Physician Review All systems were reviewed & negative as marked: Yes - Review of Systems Constitutional: absent: Fevers, Night Sweats Respiratory: SOB, Cough, Wheezing Cardiovascular: absent: Chest Pain Gastrointestinal: Abdominal Pain, Constipation. absent: Nausea, Vomiting Neurological: absent: Headache Physical Exam - Physical Exam Narrative Physical Exam (Text): Constitutional: No acute distress. Head: Normocephalic. Atraumatic. Eyes: PERRL. ENT: Moist mucous membranes. Neck: Supple. Cardiovascular: Regular rate. Left sided pacemaker defibrillator. Chest: No tenderness. Respiratory: Pulse oximetry 100% on Room Air. Diffuse wheezing. No crackles. GI: Diffuse abdominal tenderness with guarding. : Meade in place with gross hematuria. Back: No CVA tenderness. Musculoskeletal: No tenderness of extremities. Bilateral lower extremity pitting edema. Skin: No rash. Neurologic: Alert, no focal deficit. Vital Signs Reviewed: Yes Vital Signs Temp Pulse Resp BP Pulse Ox 04/23/17 15:03 65 22 127/70 96 04/23/17 14:07 66 21 118/56 L 98 04/23/17 12:00 20 04/23/17 11:42 97.9 F 75 16 159/75 H 100 Temperature: Afebrile Blood Pressure: Hypertensive Pulse: Regular Respiratory Rate: Normal Appearance: Positive for: Well-Appearing, Non-Toxic, Comfortable Pain Distress: None Mental Status: Positive for: Alert and Oriented X 3 Medical Decision Making ED Course and Treatment: 04/23/17 12:26 Impression: A 87 year old male abdominal pain and constipation. Patient notes shortness of breath, cough and wheezing. Plan: -- Abdomen and pelvis CT -- Chest X-ray -- Labs -- Urine Culture and Urinalysis -- Duoneb -- Reassess and disposition Prior Visits: Notes and results from previous visits were reviewed. Patient last seen in ED on 03/26/17 for obstructed Meade catheter and hematuria. Patient was hospitalized. Progress Notes: EKG shows ventricular paced rhythm at [address]-segment elevations. Interpreted by me. Report Date : 04/23/2017 12:49:36 Procedure: Chest xray Dictator : Renny Armijo MD IMPRESSION: No active disease. CT LOWER THORAX: Unremarkable. LIVER: Unremarkable. No gross lesion or ductal dilatation. GALLBLADDER AND BILE DUCTS: Minimal dense sludge or stones in the gallbladder fundus PANCREAS: Unremarkable. No gross lesion or ductal dilatation. SPLEEN: Unremarkable. ADRENALS: Unremarkable. No mass. KIDNEYS AND URETERS: Unremarkable. No hydronephrosis. No solid mass. VASCULATURE: Unremarkable. No aortic aneurysm. BOWEL: Unremarkable. No obstruction. No gross mural thickening. APPENDIX: Unremarkable. Normal appendix. PERITONEUM: Unremarkable. No free fluid. No free air. LYMPH NODES: Unremarkable. No enlarged lymph nodes. Patient with significant leukocytosis, wheezing on exam, Dr. Polk accepts to his service for COPD exacerbation. - Lab Interpretations Lab Results: 04/23/17 12:00 04/23/17 12:00 Lab Results 04/23/17 12:50: Urine Color Red, Urine Appearance Cloudy, Urine pH 7.5, Ur Specific [place] 1.015, Urine Protein 100 H, Urine Glucose (UA) Negative, Urine Ketones Negative, Urine Blood Large H, Urine Nitrate Positive H, Urine Bilirubin Small H, Urine Urobilinogen 1.0 H, Ur Leukocyte Esterase Large H, Urine RBC Tntc, Urine WBC Tntc, Ur Epithelial Cells 10 - 12, Urine Bacteria Mod 04/23/17 12:00: Blood Type O POSITIVE, Antibody Screen Negative, BBK History Checked Patient has bt 04/23/17 12:00: Sodium 135, Potassium 4.9, Chloride 92 L, Carbon Dioxide 34 H, Anion Gap 14, BUN 64 H, Creatinine 1.5 H, Est GFR ( Amer) 54, Est GFR ( Non-Af Amer) 44, Random Glucose 191 H, Calcium 9.4, Total Bilirubin 0.7, AST 147 H, ALT 161 H, Alkaline Phosphatase 130, Total Creatine Kinase 80, Troponin I 0.05, NT-Pro-B Natriuret Pep 2090 H, Total Protein 7.2, Albumin 4.1, Globulin 3.1, Albumin/Globulin Ratio 1.3, Lipase 34 04/23/17 12:00: PT 11.2, INR 1.04, APTT 26.1 04/23/17 12:00: WBC 21.6 H D, RBC 4.00, Hgb 11.2 L, Hct 35.2 L, MCV 88.0, MCH 28.0, MCHC 31.8, RDW 14.6 H, Plt Count 255, MPV 10.3, Neutrophils % (Manual) 90 H, Band Neutrophils % 2, Lymphocytes % (Manual) 4 L, Monocytes % (Manual) 4, Toxic Granulation 2+, Platelet Evaluation Normal, Hypochromasia 2+, Rouleaux 2+ I have reviewed the lab results: Yes - RAD Interpretation Radiology Orders: 04/23/17 12:10 CHEST PORTABLE [RAD] Stat 04/23/17 12:53 ABD & PELVIS W/O PO OR IV CONT [CT] Stat - Medication Orders Current Medication Orders: Discontinued Medications Albuterol/Ipratropium (Duoneb 3 Mg/0.5 Mg (3 Ml) Ud) 3 ml IH Q15M STA Stop: 04/23/17 12:12 Last Admin: 04/23/17 12:30 Dose: 3 ml Piperacillin Sod/Tazobactam Sod (Zosyn 4.5 Gm In Ns 100ml) 4.5 gm in 100 mls @ 200 mls/hr IVPB STAT STA PRN Reason: Protocol Stop: 04/23/17 13:21 Last Admin: 04/23/17 12:58 Dose: 200 mls/hr - Scribe Statement The provider has reviewed the documentation as recorded by the F[employer]se[employer]pratibha Jarvis training under [place] Provider Scribe Attestation: All medical record entries made by the Scribe were at my direction and personally dictated by me. I have reviewed the chart and agree that the record accurately reflects my personal performance of the history, physical exam, medical decision making, and the department course for this patient. I have also personally directed, reviewed, and agree with the discharge instructions and disposition. Disposition/Present on Arrival - Present on Arrival Any Indicators Present on Arrival: Yes History of DVT/PE: No History of Uncontrolled Diabetes: No Urinary Catheter: Yes History of Decub. Ulcer: No History Surgical Site Infection Following: None - Disposition Have Diagnosis and Disposition been Completed?: Yes Diagnosis: COPD exacerbation Disposition: HOSPITALIZED Disposition Time: 15:10 Patient Plan: Admission Patient Problems: Current Active Problems Problem Status Onset COPD exacerbation Acute Condition: FAIR
[2017-04-23 12:31] LABS: HEMOGLOBIN 11.2 gm/dL (14.0-18.0); MEAN CORPUSCULAR HGB CONC 31.8 g/dl (31.0-37.0); MEAN PLATELET VOLUME 10.3 fl (7.0-11.0); PLATELET COUNT 255 10^3/uL (120.0-450.0); RED CELL DISTRIBUTION WIDTH 14.6 % (11.5-14.5); WHITE BLOOD COUNT 21.6 10^3/ul (4.5-11.0)
[2017-04-23 12:39] LABS: ALB/GLOB RATIO 1.3 (1.1-1.8); ALBUMIN 4.1 g/dL (3.0-4.8); CALCIUM 9.4 mg/dL (8.4-10.5)
[2017-04-23 12:51] LABS: TROPONIN I 0.05 ng/mL
--- NOTE | 2017-04-23 12:51 | RAD ---
HISTORY: cough, wheezing COMPARISON: 03/16/2017 FINDINGS: LUNGS: No active pulmonary disease. PLEURA: No significant pleural effusion identified, no pneumothorax apparent. CARDIOVASCULAR: Mild cardiomegaly. A dual lead pacemaker is present OSSEOUS STRUCTURES: No significant abnormalities. VISUALIZED UPPER ABDOMEN: Normal. OTHER FINDINGS: None. IMPRESSION: No active disease.
[2017-04-23] MEDS ORDERED: Piperacill/Tazo 4.5gm in NS 4.5 GM/100 ML BAG IVPB STA (12:52)
[2017-04-23 12:53] LABS: PH,URINE 7.5 (4.7-8.0); URINE BILIRUBIN SMALL (NEGATIVE); URINE BLOOD LARGE (NEGATIVE); URINE GLUCOSE (UA) NEGATIVE (NEGATIVE); URINE LEUKOCYTE ESTERASE LARGE Leu/uL (NEGATIVE); URINE NITRATE POSITIVE (NEGATIVE); URINE PROTEIN 100 mg/dL (<30 mg/dL)
[2017-04-23 12:54] LABS: URINE APPEARANCE CLOUDY (CLEAR); URINE COLOR RED (YELLOW)
[2017-04-23 12:58] LABS: URINE BACTERIA MOD (NEG); URINE RBC TNTC /hpf (0-2); URINE WBC TNTC /hpf (0-6)
[2017-04-23 13:09] LABS: INR 1.04 (0.93-1.08); PARTIAL THROMBOPLASTIN TIME 26.1 Seconds (23.7-30.8); PROTHROMBIN TIME 11.2 Seconds (9.9-11.8)
[2017-04-23 13:28] LABS: BAND 2 % (0-2); HYPOCHROMIA 2+; LYMPHOCYTE 4 % (22.0-35.0); MONOCYTE 4 % (1.0-6.0); NEUTROPHIL 90 % (50.0-70.0); PLATELET ESTIMATE NORMAL (NORMAL); TOXIC GRANULATION 2+
[2017-04-23 13:29] LABS: ROULEAU 2+
--- NOTE | 2017-04-23 14:13 | CT ---
PROCEDURE: CT Abdomen and Pelvis without intravenous contrast HISTORY: abd pain, retching, constipation COMPARISON: None. TECHNIQUE: Without contrast.. Contrast Dose: Radiation dose: Total exam DLP = 385 mGy-cm. This CT exam was performed using one or more of the following dose reduction techniques: Automated exposure control, adjustment of the mA and/or kV according to patient size, and/or use of iterative reconstruction technique. FINDINGS: LOWER THORAX: Unremarkable. LIVER: Unremarkable. No gross lesion or ductal dilatation. GALLBLADDER AND BILE DUCTS: Minimal dense sludge or stones in the gallbladder fundus PANCREAS: Unremarkable. No gross lesion or ductal dilatation. SPLEEN: Unremarkable. ADRENALS: Unremarkable. No mass. KIDNEYS AND URETERS: Unremarkable. No hydronephrosis. No solid mass. VASCULATURE: Unremarkable. No aortic aneurysm. BOWEL: Unremarkable. No obstruction. No gross mural thickening. APPENDIX: Unremarkable. Normal appendix. PERITONEUM: Unremarkable. No free fluid. No free air. LYMPH NODES: Unremarkable. No enlarged lymph nodes. BLADDER: A Avendano catheter is present. There is some mural thickening in the bladder. REPRODUCTIVE: Unremarkable. BONES: Multiple sclerotic metastatic lesions are seen. Multilevel disc degeneration OTHER FINDINGS: None. IMPRESSION: No acute finding
[2017-04-23] MEDS: Insulin Human NPH/Reg 70/30 Vial(3 ml) SC SCH ×2 (17:40→21:27)
[2017-04-23] MEDS ORDERED: Alum-Mag Hydrox-Simethicone Susp (30 mL) PO ONE (18:34)
--- NOTE | 2017-04-23 20:23 | CP.PCM.HP ---
History of Present Illness - History of Present Illness History of Present Illness: 87 year old male with history of prostate cancer, chronic indwelling schroeder catheter, chronic heart failure, chronic obstructive pulmonary disease, coronary artery disease, hypothyroidism, and recent history of gross hematuria presented to the [facility] Emergency Room for abdominal pain. Patient says the pain has been getting worse over the last 4 days. He describes the pain as feeling like a spasm. He also complains of constipation. He denies chest pain, or shortness of breath. Blood work done today shows an elevated white count at 21,600 with left shift. Present on Admission - Present on Admission Any Indicators Present on Admission: Yes History of DVT/PE: Yes Urinary Catheter: Yes Review of Systems - Constitutional Constitutional: absent: Chills, Fever, Headache - Cardiovascular Cardiovascular: absent: Chest Pain, Diaphoresis, Dyspnea - Respiratory Respiratory: absent: Cough, Dyspnea, Hemoptysis - Gastrointestinal Gastrointestinal: As Per HPI - Genitourinary Genitourinary: Freq UTI Past Patient History - Infectious Disease Hx of Infectious Diseases: None - Tetanus Immunizations Tetanus Immunization: Unknown - Past Social History Smoking Status: Never Smoked - CARDIAC Hx Cardiac Disorders: Yes Hx Cardia Arrhythmia: Yes Hx Congestive Heart Failure: Yes - PULMONARY Hx Chronic Obstructive Pulmonary Disease (COPD): Yes - NEUROLOGICAL Hx Neurological Disorder: No - HEENT Hx HEENT Problems: Yes Hx Cataracts: Yes (WITH b/t SURGERY) - RENAL Hx Chronic Kidney Disease: Yes Hx Renal Failure: Yes - ENDOCRINE/METABOLIC Hx Diabetes Mellitus Type 2: Yes Hx Hypothyroidism: Yes - HEMATOLOGICAL/ONCOLOGICAL Hx Blood Disorders: Yes Hx Anemia: Yes (in past with blood transfusion) 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) - INTEGUMENTARY Hx Dermatological Problems: No - MUSCULOSKELETAL/RHEUMATOLOGICAL Hx Falls: Yes - GASTROINTESTINAL Hx Gastrointestinal Disorders: No - GENITOURINARY/GYNECOLOGICAL Hx Genitourinary Disorders: Yes (URINARY RETENTION CHRONIC SCHROEDER) - PSYCHIATRIC Hx Emotional Abuse: No Hx Physical Abuse: No Hx Substance Use: No - SURGICAL HISTORY Hx Cardiac Catheterization: Yes (w/ 4 stents) Hx Coronary Stent: Yes (X4) Hx Open Heart Surgery: Yes Other/Comment: PACEMAKER/AICD,MULTIPLE ANGIOPLASTIES,CATARACT SURGERY,CARDIAC STENTS X 4,QUADRUPLE BYPASS - ANESTHESIA Hx Anesthesia Reactions: No (none as per patient) Hx Malignant Hyperthermia: No Meds Allergies/Adverse Reactions: Allergies Allergy/AdvReac Type Severity Reaction Status Date / Time Iodinated Contrast- Oral and Allergy ANAPHYLAXIS Verified 04/23/17 11:49 IV Dye levofloxacin [From Levaquin] Allergy ANAPHYLAXIS Verified 04/23/17 11:49 Physical Exam - Head Exam Head Exam: ATRAUMATIC, NORMOCEPHALIC - Respiratory Exam Respiratory Exam: Clear to Auscultation Bilateral, NORMAL BREATHING PATTERN - Cardiovascular Exam Cardiovascular Exam: REGULAR RHYTHM, +S1, +S2 - GI/Abdominal Exam GI & Abdominal Exam: Distended, Soft, Tenderness - Extremities Exam Extremities exam: Positive for: pedal edema - Neurological Exam Neurological exam: Alert, CN II-XII Intact, Oriented x3 Results - Vital Signs Recent Vital Signs: Last Vital Signs Temp 98 F 04/23/17 17:05 Pulse 64 04/23/17 18:00 Resp 20 04/23/17 17:05 BP 128/43 L 04/23/17 17:46 Pulse Ox 96 04/23/17 17:05 - Labs Result Diagrams: 04/23/17 12:00 04/23/17 12:00 Assessment & Plan - Assessment and Plan (Free Text) Assessment: Systemic Inflammatory Response Syndrome Urinary Tract Infection Abdominal pain Chronic Kidney Disease Prostate Cancer Diabetes mellitus Chronic heart failure Coronary Artery Disease Hypothyroidism Constipation Chronic Obstructive Pulmonary Disease Plan: Patient with white count of 21,600 with left shift. Urinalysis positive for urinary tract infection. Urine and blood sent for culture. Infectious disease consult with Dr. Hernandez. IV cleocin started. Patient with abdominal pain. He has mild diffuse tenderness and distension. Dilaudid IV as needed for pain. Consult Dr Bal, icu clerk. Patient also with constipation. continue colace and Miralax PRN. continue Synthroid for hypothyroidism continue insulin for diabetes and accuchecks with sliding scale coverage
--- NOTE | 2017-04-23 20:26 | CP.PCM.CON ---
History of Present Illness - History of Present Illness History of Present Illness: Pt is an 87 yo m admitted for severe abd pain, w no bm x 4 days he reports, sees Dr Carballo for Ca of Bladder and persistent hematuria rxed effectively w tranexamic acid recently (see most recent hosp reports), for eval /rx Review of Systems - Constitutional Constitutional: Weakness - EENT Eyes: As Per HPI Ears: As Per HPI Nose/Mouth/Throat: As Per HPI - Cardiovascular Cardiovascular: As Per HPI - Respiratory Respiratory: As Per HPI - Gastrointestinal Gastrointestinal: As Per HPI, Change in Bowel Habits, Constipation - Genitourinary Genitourinary: Freq UTI Additional comments: chronic indwelling meade - Reproductive: Male Reproductive:Male: As Per HPI - Musculoskeletal Musculoskeletal: As Per HPI - Integumentary Integumentary: As Per HPI - Neurological Neurological: As Per HPI - Hematologic/Lymphatic Hematologic: As Per HPI Past Patient History - Infectious Disease Hx of Infectious Diseases: None - Tetanus Immunizations Tetanus Immunization: Unknown - Past Medical History & Family History Past Family History: Reviewed and not pertinent - Past Social History Smoking Status: Never Smoked - CARDIAC Hx Cardiac Disorders: Yes Hx Congestive Heart Failure: Yes - PULMONARY Hx Chronic Obstructive Pulmonary Disease (COPD): Yes - NEUROLOGICAL Hx Neurological Disorder: No - HEENT Hx HEENT Problems: Yes Hx Cataracts: Yes (WITH b/t SURGERY) - RENAL Hx Neurogenic Bladder: Yes Hx Renal Failure: Yes - ENDOCRINE/METABOLIC Hx Diabetes Mellitus Type 2: Yes Hx Hypothyroidism: Yes - HEMATOLOGICAL/ONCOLOGICAL Hx Blood Disorders: Yes Hx Anemia: Yes (in past with blood transfusion) 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) - INTEGUMENTARY Hx Dermatological Problems: No - MUSCULOSKELETAL/RHEUMATOLOGICAL Hx Falls: Yes Hx Osteoarthritis: Yes - GASTROINTESTINAL Hx Gastrointestinal Disorders: No - GENITOURINARY/GYNECOLOGICAL Hx Genitourinary Disorders: Yes (URINARY RETENTION CHRONIC MEADE) Hx Prostate Cancer: Yes (castrate resistant) - PSYCHIATRIC Hx Emotional Abuse: No Hx Physical Abuse: No Hx Substance Use: No - SURGICAL HISTORY Hx Cardiac Catheterization: Yes (w/ 4 stents) Hx Coronary Stent: Yes (X4) Hx Open Heart Surgery: Yes Other/Comment: PACEMAKER/AICD,MULTIPLE ANGIOPLASTIES,CATARACT SURGERY,CARDIAC STENTS X 4,QUADRUPLE BYPASS - ANESTHESIA Hx Anesthesia Reactions: No (none as per patient) Hx Malignant Hyperthermia: No Meds Allergies/Adverse Reactions: Allergies Allergy/AdvReac Type Severity Reaction Status Date / Time Iodinated Contrast- Oral and Allergy ANAPHYLAXIS Verified 04/23/17 11:49 IV Dye levofloxacin [From Levaquin] Allergy ANAPHYLAXIS Verified 04/23/17 11:49 - Medications Medications: Current Medications Albuterol/Ipratropium (Duoneb 3 Mg/0.5 Mg (3 Ml) Ud) 3 ml IH [id number] [facility] Amiodarone HCl (Cordarone) 200 mg PO DAILY [facility] Atorvastatin Calcium (Lipitor) 10 mg PO DIN [facility] Last Admin: 04/23/17 17:46 Dose: Not Given Calcium Acetate (Phoslo) 667 mg PO DAILY [facility] Cholecalciferol (Vitamin D) 1,000 iu PO DAILY [facility] Digoxin (Lanoxin) 0.125 mg PO 1400 [facility] Docusate Sodium (Colace) 100 mg PO TID [facility] Last Admin: 04/23/17 17:46 Dose: 100 mg Furosemide (Lasix) 40 mg IVP BID [facility] Last Admin: 04/23/17 17:46 Dose: 40 mg Home Med (Home Med) 1 unit PO BID [facility] Last Admin: 04/23/17 17:47 Dose: 1 unit Hydromorphone HCl (Dilaudid) 3 mg IVP Q3H PRN PRN Reason: Pain, moderate (4-7) Last Admin: 04/23/17 17:46 Dose: 3 mg Clindamycin Phosphate 300 mg/ (Sodium Chloride) 52 mls @ 104 mls/hr IVPB Q8 [facility] PRN Reason: Protocol Levothyroxine Sodium (Synthroid) 100 mcg PO 0600 [facility] Montelukast Sodium (Singulair) 10 mg PO DAILY [facility] Ondansetron HCl (Zofran Inj) 4 mg IVP Q4H PRN PRN Reason: Nausea/Vomiting Last Admin: 04/23/17 18:49 Dose: 4 mg Pantoprazole Sodium (Protonix Ec Tab) 40 mg PO 1000 [facility] Polyethylene Glycol (Miralax) 17 gm PO DAILY [facility] Prednisone (Prednisone Tab) 10 mg PO DAILY [facility] Physical Exam - Constitutional Appears: In Acute Distress, Chronically Ill - Head Exam Head Exam: NORMOCEPHALIC - Eye Exam Eye Exam: EOMI, PERRL - Neck Exam Neck exam: Positive for: Normal Inspection - Respiratory Exam Respiratory Exam: Clear to Auscultation Bilateral, NORMAL BREATHING PATTERN - Cardiovascular Exam Cardiovascular Exam: REGULAR RHYTHM, Systolic Murmur - GI/Abdominal Exam GI & Abdominal Exam: Distended, Firm, Tenderness - Exam Additional comments: meade in situ - Extremities Exam Extremities exam: Positive for: normal inspection - Neurological Exam Neurological exam: Alert, Oriented x3 - Skin Skin Exam: Normal Color Results - Vital Signs Recent Vital Signs: Last Vital Signs Temp 98 F 04/23/17 17:05 Pulse 64 04/23/17 18:00 Resp 20 04/23/17 17:05 BP 128/43 L 04/23/17 17:46 Pulse Ox 96 04/23/17 17:05 - Labs Result Diagrams: 04/23/17 12:00 04/23/17 12:00 Assessment & Plan - Assessment and Plan (Free Text) Assessment: Castrate Resistant Ca Prostate, Abd pain Constipation Hematuria Chronic Meade ASCVD DJD hands Plan: Admit to telemetry as per Dr Marcus, cont Tranexemic Acid, and present meds as indicated, GI eval Dr Bal, k labs monitor clinically prognosis guarded - Date & Time Date: 04/23/17 Time: 20:30
[2017-04-23] MEDS: Insulin Reg-LOW-Coverage SC SCH (21:38)
[2017-04-23] MEDS ORDERED: Clindamycin 300 MG in Sodium Chloride 0.9% 50 ML IVPB SCH (22:00)
[2017-04-23] MEDS: Meropenem 1g/NS 100mL IVPB 1 GM/100 ML PIGGYBACK IVPB SCH (22:21)
[2017-04-24] MEDS: Albuterol-Ipratrop 3 mg / 0.5 (3 ml) UD IH SCH ×4 (02:20→19:33)
[2017-04-24] MEDS: Levothyroxine 100 MCG TAB PO SCH (05:15)
[2017-04-24 07:57] LABS: BASO # 0.01 K/mm3 (0.0-2.0); BASO % 0.1 % (0.0-3.0); EOS # 0.3 (0.0-0.7); GRAN # 10.82 (1.4-6.5); GRAN % 80.8 % (50.0-68.0); HEMOGLOBIN 10.5 gm/dL (14.0-18.0); LYMPH # 1.1 (1.2-3.4); LYMPH % 8.4 % (22.0-35.0); MEAN CELL VOLUME 88.3 fL (80.0-105.0); MEAN CORPUSCULAR HEMOGLOBIN 27.4 pg (25.0-35.0); MEAN CORPUSCULAR HGB CONC 31.1 g/dl (31.0-37.0); MEAN PLATELET VOLUME 10.5 fl (7.0-11.0); MONO # 1.2 (0.1-0.6); MONO % 8.7 % (1.0-6.0); PLATELET COUNT 228 10^3/uL (120.0-450.0); RBC 3.83 10^6/uL (3.5-6.1); RED CELL DISTRIBUTION WIDTH 14.7 % (11.5-14.5); WHITE BLOOD COUNT 13.4 10^3/ul (4.5-11.0)
--- NOTE | 2017-04-24 08:03 | CP.PCM.PN ---
Subjective - Date & Time of Evaluation Date of Evaluation: 04/24/17 Time of Evaluation: 07:40 - Subjective Subjective: Patient is seen this morning. He still complains of abdominal pain. + constipation Objective - Vital Signs/Intake and Output Vital Signs (last 24 hours): Temp Pulse Resp BP Pulse Ox 97.5 F L 59 L 20 136/65 99 04/24/17 06:00 04/24/17 06:00 04/24/17 06:00 04/24/17 06:00 04/24/17 06:00 Intake and Output: 04/24/17 04/24/17 06:59 18:59 Intake Total 150 Output Total 1200 Balance -1050 - Medications Medications: Current Medications Albuterol/Ipratropium (Duoneb 3 Mg/0.5 Mg (3 Ml) Ud) 3 ml IH [id number] [facility] Last Admin: 04/24/17 02:20 Dose: 3 ml Amiodarone HCl (Cordarone) 200 mg PO DAILY [facility] Atorvastatin Calcium (Lipitor) 10 mg PO DIN [facility] Last Admin: 04/23/17 17:46 Dose: Not Given Calcium Acetate (Phoslo) 667 mg PO DAILY [facility] Cholecalciferol (Vitamin D) 1,000 iu PO DAILY [facility] Digoxin (Lanoxin) 0.125 mg PO 1400 [facility] Docusate Sodium (Colace) 100 mg PO TID [facility] Last Admin: 04/23/17 17:46 Dose: 100 mg Furosemide (Lasix) 40 mg IVP BID [facility] Last Admin: 04/23/17 17:46 Dose: 40 mg Home Med (Home Med) 1 unit PO BID [facility] Last Admin: 04/23/17 17:47 Dose: 1 unit Hydromorphone HCl (Dilaudid) 3 mg IVP Q3H PRN PRN Reason: Pain, moderate (4-7) Last Admin: 04/23/17 17:46 Dose: 3 mg Meropenem 1g/NS 100mL IVPB (Meropenem 1g/Ns 100ml Ivpb) 1 gm in 100 mls @ 100 mls/hr IVPB Q12 [facility] PRN Reason: Protocol Stop: 04/30/17 22:01 Last Admin: 04/23/17 22:21 Dose: 100 mls/hr Insulin Human Regular (Humulin R Low) 0 units SC ACHS [facility] PRN Reason: Protocol Last Admin: 04/23/17 21:38 Dose: Not Given Levothyroxine Sodium (Synthroid) 100 mcg PO 0600 [facility] Last Admin: 04/24/17 05:15 Dose: 100 mcg Montelukast Sodium (Singulair) 10 mg PO DAILY [facility] Ondansetron HCl (Zofran Inj) 4 mg IVP Q4H PRN PRN Reason: Nausea/Vomiting Last Admin: 04/23/17 18:49 Dose: 4 mg Pantoprazole Sodium (Protonix Ec Tab) 40 mg PO 1000 [facility] Polyethylene Glycol (Miralax) 17 gm PO DAILY [facility] Prednisone (Prednisone Tab) 10 mg PO DAILY [facility] - Labs Labs: PT 11.2 Seconds (9.9-11.8) 04/23/17 12:00 INR 1.04 (0.93-1.08) 04/23/17 12:00 APTT 26.1 Seconds (23.7-30.8) 04/23/17 12:00 - Constitutional Appears: No Acute Distress - Head Exam Head Exam: ATRAUMATIC, NORMOCEPHALIC - Respiratory Exam Respiratory Exam: Clear to Ausculation Bilateral, NORMAL BREATHING PATTERN - Cardiovascular Exam Cardiovascular Exam: +S1, +S2 - GI/Abdominal Exam GI & Abdominal Exam: Soft, Tenderness, Normal Bowel Sounds - Extremities Exam Extremities Exam: Pedal Edema - Neurological Exam Neurological Exam: Alert, Awake, CN II-XII Intact, Oriented x3 Assessment and Plan - Assessment and Plan (Free Text) Assessment: Abdominal pain SIRS Urinary Tract Infection Chronic heart failure Chronic Obstructive pulmonary disease Chronic Kidney Disease Coronary Artery Disease with multiple stents Hypothyroidism Plan: Patient with abdominal pain and tenderness. He complains of constipation. Miralax to be given this morning. continue Colace as well. GI evaluation. continue Morphine as needed for pain. CAT scan of abdomen and pelvis shows gallbladder sludge; +lymphadenopathy as before. Infectious disease input appreciated. continue IV Meropenem. Awaiting culture reports. continue respiratory treatments and prednisone for COPD. Will consult Dr. Arias, gear tester Patient with recent history of gross hematuria, most likely secondary to prostate cancer. Urine is pink this morning, but hematuria is improved from previous admission. He is off ASA and Plavix. continue Tranaxemic acid for bleeding continue IV Lasix for heart failure. Cardiology evaluation is pending.
[2017-04-24] MEDS: Insulin Reg-LOW-Coverage SC SCH ×3 (08:16→18:52)
[2017-04-24 08:26] LABS: ALB/GLOB RATIO 1.3 (1.1-1.8); ALBUMIN 3.3 g/dL (3.0-4.8); CALCIUM 8.9 mg/dL (8.4-10.5)
[2017-04-24] MEDS: Insulin Human NPH/Reg 70/30 Vial(3 ml) SC SCH ×4 (08:57→22:05)
--- NOTE | 2017-04-24 09:12 | CP.PCM.PN ---
<Devora Alvarado - Last Filed: 04/25/17 06:39> Subjective - Date & Time of Evaluation Date of Evaluation: 04/24/17 Time of Evaluation: 09:09 - Subjective Subjective: PGY-[address] Carballo Pt complaint of abdominal pain, 6/10 at baseline, 10/10 when cough. Morphine for pain controlled briefly but pt tried to refrain from using it. Pt complaint of constipation. Miralax & colace pending response. Last BM this AM, no blood, small amount, soft CAT Abdomen/pelvis shows gallbladder sludge; +lymphadenopathy Objective - Vital Signs/Intake and Output Vital Signs (last 24 hours): Temp Pulse Resp BP Pulse Ox 97.5 F L 59 L 20 136/65 99 04/24/17 06:00 04/24/17 06:00 04/24/17 06:00 04/24/17 06:00 04/24/17 06:00 - Medications Medications: Current Medications Albuterol/Ipratropium (Duoneb 3 Mg/0.5 Mg (3 Ml) Ud) 3 ml IH [id number] [facility] Last Admin: 04/24/17 07:55 Dose: 3 ml Amiodarone HCl (Cordarone) 200 mg PO DAILY [facility] Atorvastatin Calcium (Lipitor) 10 mg PO DIN [facility] Last Admin: 04/23/17 17:46 Dose: Not Given Calcium Acetate (Phoslo) 667 mg PO DAILY [facility] Cholecalciferol (Vitamin D) 1,000 iu PO DAILY [facility] Digoxin (Lanoxin) 0.125 mg PO 1400 [facility] Docusate Sodium (Colace) 100 mg PO TID [facility] Last Admin: 04/23/17 17:46 Dose: 100 mg Furosemide (Lasix) 40 mg IVP DAILY [facility] Home Med (Home Med) 1 unit PO BID [facility] Last Admin: 04/23/17 17:47 Dose: 1 unit Hydromorphone HCl (Dilaudid) 3 mg IVP Q3H PRN PRN Reason: Pain, moderate (4-7) Last Admin: 04/23/17 17:46 Dose: 3 mg Meropenem 1g/NS 100mL IVPB (Meropenem 1g/Ns 100ml Ivpb) 1 gm in 100 mls @ 100 mls/hr IVPB Q12 [facility] PRN Reason: Protocol Stop: 04/30/17 22:01 Last Admin: 04/23/17 22:21 Dose: 100 mls/hr Insulin Human Regular (Humulin R Low) 0 units SC ACHS [facility] PRN Reason: Protocol Last Admin: 04/24/17 08:16 Dose: Not Given Levothyroxine Sodium (Synthroid) 100 mcg PO 0600 [facility] Last Admin: 04/24/17 05:15 Dose: 100 mcg Montelukast Sodium (Singulair) 10 mg PO DAILY [facility] Ondansetron HCl (Zofran Inj) 4 mg IVP Q4H PRN PRN Reason: Nausea/Vomiting Last Admin: 04/23/17 18:49 Dose: 4 mg Pantoprazole Sodium (Protonix Ec Tab) 40 mg PO 1000 [facility] Polyethylene Glycol (Miralax) 17 gm PO DAILY [facility] Prednisone (Prednisone Tab) 10 mg PO DAILY [facility] - Labs Labs: PT 11.2 Seconds (9.9-11.8) 04/23/17 12:00 INR 1.04 (0.93-1.08) 04/23/17 12:00 APTT 26.1 Seconds (23.7-30.8) 04/23/17 12:00 - Constitutional Appears: No Acute Distress - Head Exam Head Exam: ATRAUMATIC, NORMAL INSPECTION, NORMOCEPHALIC - Eye Exam Eye Exam: EOMI, Normal appearance, PERRL. absent: Scleral icterus - ENT Exam ENT Exam: Mucous Membranes Moist - Respiratory Exam Respiratory Exam: Clear to Ausculation Bilateral. absent: Rales, Rhonchi, Wheezes - Cardiovascular Exam Cardiovascular Exam: REGULAR RHYTHM, +S1, +S2 - GI/Abdominal Exam GI & Abdominal Exam: Soft, Tenderness, Hypoactive Bowel Sounds - Extremities Exam Extremities Exam: Normal Capillary Refill. absent: Calf Tenderness, Pedal Edema Additional comments: red urine on schroeder - Neurological Exam Neurological Exam: Alert, Awake, Oriented x3 - Psychiatric Exam Psychiatric exam: Normal Affect, Normal Mood - Skin Skin Exam: Dry, Warm Assessment and Plan - Assessment and Plan (Free Text) Plan: 87 M with prostate CA with mets to lymphnodes, castrate resistent, chronic schroeder for urinary retention, admitted for abdominal pain/costipation/COPD exacerbation. Pt has hemauturia (hx icd, quadriple bypass), improving. Transamininitis Gross Hemautria, due to prostate ca - Hb 10.5, plt 228, inr 1.04 - pink in schroeder - ASA and Plavix. 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 Carballo <Rogelio Carballo - Last Filed: 04/27/17 20:17> Objective - Vital Signs/Intake and Output Vital Signs (last 24 hours): Temp Pulse Resp BP Pulse Ox 97.7 F 70 19 145/65 99 04/27/17 17:55 04/27/17 17:55 04/27/17 17:55 04/27/17 17:55 04/27/17 17:55 Intake and Output: 04/27/17 04/28/17 18:59 06:59 Intake Total 720 Balance 720 - Medications Medications: Current Medications Albuterol/Ipratropium (Duoneb 3 Mg/0.5 Mg (3 Ml) Ud) 3 ml IH [id number] [facility] Last Admin: 04/27/17 13:11 Dose: 3 ml Amiodarone HCl (Cordarone) 200 mg PO DAILY [facility] Last Admin: 04/27/17 10:53 Dose: 200 mg Atorvastatin Calcium (Lipitor) 10 mg PO DIN [facility] Last Admin: 04/27/17 17:54 Dose: 10 mg Budesonide (Pulmicort Respules) 0.5 mg IH BIDRESP [facility] Last Admin: 04/27/17 07:28 Dose: 0.5 mg Calcium Acetate (Phoslo) 667 mg PO DAILY [facility] Last Admin: 04/27/17 10:53 Dose: 667 mg Cholecalciferol (Vitamin D) 1,000 iu PO DAILY [facility] Last Admin: 04/27/17 10:53 Dose: 1,000 iu Digoxin (Lanoxin) 0.125 mg PO 1400 [facility] Last Admin: 04/27/17 15:15 Dose: 0.125 mg Docusate Sodium (Colace) 100 mg PO TID [facility] Last Admin: 04/27/17 17:54 Dose: 100 mg Furosemide (Lasix) 40 mg IVP DAILY [facility] Last Admin: 04/27/17 10:53 Dose: 40 mg Guaifenesin (Mucinex La) 600 mg PO BID [facility] Last Admin: 04/27/17 17:54 Dose: 600 mg Home Med (Home Med) 0 unit PO BID [facility] Last Admin: 04/27/17 17:54 Dose: 1 unit Hydromorphone HCl (Dilaudid) 1.5 mg IVP Q4H PRN PRN Reason: Pain, severe (8-10) Last Admin: 04/27/17 07:08 Dose: 1.5 mg Ceftazidime/Avibactam 1.25 gm/ (Sodium Chloride) 100 mls @ 50 mls/hr IVPB Q8 [facility] Stop: 04/30/17 14:01 Last Admin: 04/27/17 15:15 Dose: 50 mls/hr Insulin Human Regular (Humulin R Low) 0 units SC ACHS [facility] PRN Reason: Protocol Last Admin: 04/27/17 17:47 Dose: Not Given Levothyroxine Sodium (Synthroid) 100 mcg PO 0600 [facility] Last Admin: 04/27/17 06:17 Dose: 100 mcg Montelukast Sodium (Singulair) 10 mg PO DAILY [facility] Last Admin: 04/27/17 10:53 Dose: 10 mg Ondansetron HCl (Zofran Inj) 4 mg IVP Q4H PRN PRN Reason: Nausea/Vomiting Last Admin: 04/23/17 18:49 Dose: 4 mg Pantoprazole Sodium (Protonix Ec Tab) 40 mg PO 1000 [facility] Last Admin: 04/27/17 10:53 Dose: 40 mg Polyethylene Glycol (Miralax) 17 gm PO BID [facility] Last Admin: 04/27/17 17:54 Dose: 17 gm Prednisone (Prednisone Tab) 10 mg PO DAILY [facility] Last Admin: 04/27/17 10:53 Dose: 10 mg Tiotropium [place] (Spiriva) 18 mcg IH DAILY [facility] Last Admin: 04/27/17 10:53 Dose: 18 mcg - Labs Labs: 04/26/17 09:50 04/26/17 09:50 PT 11.2 Seconds (9.9-11.8) 04/23/17 12:00 INR 1.04 (0.93-1.08) 04/23/17 12:00 APTT 26.1 Seconds (23.7-30.8) 04/23/17 12:00 Attending/Attestation - Attestation I have personally seen and examined this patient.: Yes I have fully participated in the care of the patient.: Yes I have reviewed all pertinent clinical information, including history, physical exam and plan: Yes
[2017-04-24] MEDS ORDERED: guaiFENesin DM 100 mg-10 mg/5 ml UD PO PRN (09:51)
--- NOTE | 2017-04-24 09:51 | CARD ---
APPROVED REPORT EKG Measurement Heart [id number] <Conclusion> Electronic ventricular pacemaker: 100% V. Paced and A. Sensed
--- NOTE | 2017-04-24 10:01 | PQF GENQUE ---
This form is a permanent part of the medical record Dr. Marcus, Your progress notes list chronic heart failure and CKD as diagnoses. Please specify type of CHF and stage of CKD for more accurate coding. Clarification of your documentation is requested to better reflect the severity of illness and intensity of treatment of your patient. Indicators present [] Specify: [] [] Specify: [] [] Specify: [] [] Specify: [] Location in the medical record that reflects the above clinical findings: [] Treatment Provided: [] PHYSICIAN'S RESPONSE Based on your medical judgment of the clinical indicators outlined above please clarify the following: [x] Practitioner response - Chronic systolic and diastolic heart failure, CKD stage 3 [] If unable to determine, please check the box, sign and date. Present On Admission (POA) Indicator: [x] Present at the time of admission [] Not present at the time of admission [] Clinically Undetermined In responding to this query, please exercise your independent professional judgment. The fact that a question is asked does not imply that any particular answer is desired or expected. Thank you for your clarification on this documentation. If you have any questions please call:[ ] * Thank you, [ ]Kal iSngletary [facility] #[id number] paperback machine operator ANNABELLA
[2017-04-24] MEDS: POLYETHYLENE GLYCOL 3350 17 GM/Dose PACKET PO SCH (10:09)
[2017-04-24] MEDS: Meropenem 1g/NS 100mL IVPB 1 GM/100 ML PIGGYBACK IVPB SCH ×2 (10:11→21:50)
[2017-04-24] MEDS: Pantoprazole 40 mg EC Tab PO SCH (10:15)
--- NOTE | 2017-04-24 11:05 | CP.PCM.CON ---
History of Present Illness - History of Present Illness History of Present Illness: 87 year old male with PMH of right foot necrotic ulcer with cellulitis, UTI with Enterococcus and Klebsiella, chronic renal failure, history of DVT, DM, Prostate CA, history of Enterococcus UTI, atrial fibrillation, S/P pacemaker and defibrillator placement, chronic CHF, COPD, hypothyroidism was brought in to [facility] because of abdominal pain, which has been happening over the last 4-5 days. He was recently admitted for hematuria and is now taking meds to decrease the chance of bleeding. The patient denies fever or chills, no nausea or vomiting, no headache or dizziness, no bleeding from his Meade catheter, occasional suprapubic discomfort, no diarrhea, no cough or colds , no dysphagia. In the ED, urinalysis showed pyuria and Infectious Diseases consult is requested to further evaluate and manage. Review of Systems - Review of Systems All systems: reviewed and no additional remarkable complaints except (as per HPI ) Past Patient History - Infectious Disease Hx of Infectious Diseases: None - Tetanus Immunizations Tetanus Immunization: Unknown - Past Medical History & Family History Past Family History: Reviewed and not pertinent - Past Social History Smoking Status: Never Smoked - CARDIAC Hx Cardiac Disorders: Yes Hx Congestive Heart Failure: Yes - PULMONARY Hx Chronic Obstructive Pulmonary Disease (COPD): Yes - NEUROLOGICAL Hx Neurological Disorder: No - HEENT Hx HEENT Problems: Yes Hx Cataracts: Yes (WITH b/t SURGERY) - RENAL Hx Neurogenic Bladder: Yes Hx Renal Failure: Yes - ENDOCRINE/METABOLIC Hx Diabetes Mellitus Type 2: Yes Hx Hypothyroidism: Yes - HEMATOLOGICAL/ONCOLOGICAL Hx Blood Disorders: Yes Hx Anemia: Yes (in past with blood transfusion) 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) - INTEGUMENTARY Hx Dermatological Problems: No - MUSCULOSKELETAL/RHEUMATOLOGICAL Hx Falls: Yes Hx Osteoarthritis: Yes - GASTROINTESTINAL Hx Gastrointestinal Disorders: No - GENITOURINARY/GYNECOLOGICAL Hx Genitourinary Disorders: Yes (URINARY RETENTION CHRONIC MEADE) Hx Prostate Cancer: Yes (castrate resistant) - PSYCHIATRIC Hx Emotional Abuse: No Hx Physical Abuse: No Hx Substance Use: No - SURGICAL HISTORY Hx Cardiac Catheterization: Yes (w/ 4 stents) Hx Coronary Stent: Yes (X4) Hx Open Heart Surgery: Yes Other/Comment: PACEMAKER/AICD,MULTIPLE ANGIOPLASTIES,CATARACT SURGERY,CARDIAC STENTS X 4,QUADRUPLE BYPASS - ANESTHESIA Hx Anesthesia Reactions: No (none as per patient) Hx Malignant Hyperthermia: No Meds Allergies/Adverse Reactions: Allergies Allergy/AdvReac Type Severity Reaction Status Date / Time Iodinated Contrast- Oral and Allergy ANAPHYLAXIS Verified 04/23/17 11:49 IV Dye levofloxacin [From Levaquin] Allergy ANAPHYLAXIS Verified 04/23/17 11:49 - Medications Medications: Current Medications Albuterol/Ipratropium (Duoneb 3 Mg/0.5 Mg (3 Ml) Ud) 3 ml IH [id number] [facility] Amiodarone HCl (Cordarone) 200 mg PO DAILY [facility] Atorvastatin Calcium (Lipitor) 10 mg PO DIN [facility] Last Admin: 04/23/17 17:46 Dose: Not Given Calcium Acetate (Phoslo) 667 mg PO DAILY [facility] Cholecalciferol (Vitamin D) 1,000 iu PO DAILY [facility] Digoxin (Lanoxin) 0.125 mg PO 1400 [facility] Docusate Sodium (Colace) 100 mg PO TID [facility] Last Admin: 04/23/17 17:46 Dose: 100 mg Furosemide (Lasix) 40 mg IVP BID [facility] Last Admin: 04/23/17 17:46 Dose: 40 mg Home Med (Home Med) 1 unit PO BID [facility] Last Admin: 04/23/17 17:47 Dose: 1 unit Hydromorphone HCl (Dilaudid) 3 mg IVP Q3H PRN PRN Reason: Pain, moderate (4-7) Last Admin: 04/23/17 17:46 Dose: 3 mg Insulin Human Regular (Humulin R Low) 0 units SC ACHS [facility] PRN Reason: Protocol Last Admin: 04/23/17 21:38 Dose: Not Given Levothyroxine Sodium (Synthroid) 100 mcg PO 0600 [facility] Montelukast Sodium (Singulair) 10 mg PO DAILY [facility] Ondansetron HCl (Zofran Inj) 4 mg IVP Q4H PRN PRN Reason: Nausea/Vomiting Last Admin: 04/23/17 18:49 Dose: 4 mg Pantoprazole Sodium (Protonix Ec Tab) 40 mg PO 1000 [facility] Polyethylene Glycol (Miralax) 17 gm PO DAILY [facility] Prednisone (Prednisone Tab) 10 mg PO DAILY [facility] Physical Exam - Constitutional Appears: Non-toxic, No Acute Distress - Head Exam Head Exam: NORMAL INSPECTION - ENT Exam ENT Exam: Mucous Membranes Moist - Neck Exam Neck exam: Negative for: Lymphadenopathy, Meningismus - Respiratory Exam Respiratory Exam: Decreased Breath Sounds - Cardiovascular Exam Cardiovascular Exam: +S1, +S2 - GI/Abdominal Exam GI & Abdominal Exam: Soft. absent: Tenderness Results - Vital Signs Recent Vital Signs: Last Vital Signs Temp 98 F 04/23/17 17:05 Pulse 64 04/23/17 18:00 Resp 20 04/23/17 17:05 BP 128/43 L 04/23/17 17:46 Pulse Ox 96 04/23/17 17:05 - Labs Result Diagrams: 04/24/17 06:40 04/24/17 07:00 Labs: Laboratory Results - last 24 hr 04/23/17 04/23/17 04/23/17 16:29 18:30 21:03 POC Glucose (mg/dL) 238 H 255 H 289 H Assessment & Plan - Assessment and Plan (Free Text) Plan: Assessment Consider lower urinary tract infection in a patient with indwelling Meade catheter history of right foot necrotic ulcer with surrounding cellulitis UTI with Enterococcus and Klebsiella chronic renal failure history of DVT DM Prostate CA history of Enterococcus UTI atrial fibrillation S/P pacemaker and ICD placement Plan started patient on Merrem pending blood and urine cx; reviewed CT scan of the abdomen and pelvis which showed some mural thickening of the urinary bladder will follow clinically
--- NOTE | 2017-04-24 12:05 | CP.PCM.PN ---
<Claudia Armendariz - Last Filed: 04/24/17 12:03> Subjective - Date & Time of Evaluation Date of Evaluation: 04/24/17 Time of Evaluation: 09:30 - Subjective Subjective: S&E, chart reviewed. No BM for 4 days now, abdominal pain, slightly better, ate tolerated breakfast, no N/V. No acute overnight, no new complaints. No SOB, CP. Objective - Vital Signs/Intake and Output Vital Signs (last 24 hours): Temp Pulse Resp BP Pulse Ox 97.5 F L 59 L 20 136/65 99 04/24/17 06:00 04/24/17 10:10 04/24/17 06:00 04/24/17 10:10 04/24/17 06:00 - Medications Medications: Current Medications Albuterol/Ipratropium (Duoneb 3 Mg/0.5 Mg (3 Ml) Ud) 3 ml IH [id number] [facility] Last Admin: 04/24/17 07:55 Dose: 3 ml Amiodarone HCl (Cordarone) 200 mg PO DAILY [facility] Last Admin: 04/24/17 10:10 Dose: 200 mg Atorvastatin Calcium (Lipitor) 10 mg PO DIN [facility] Last Admin: 04/23/17 17:46 Dose: Not Given Budesonide (Pulmicort Respules) 0.5 mg IH BIDRESP [facility] Calcium Acetate (Phoslo) 667 mg PO DAILY [facility] Last Admin: 04/24/17 10:09 Dose: 667 mg Cholecalciferol (Vitamin D) 1,000 iu PO DAILY [facility] Last Admin: 04/24/17 10:09 Dose: 1,000 iu Digoxin (Lanoxin) 0.125 mg PO 1400 [facility] Docusate Sodium (Colace) 100 mg PO TID [facility] Last Admin: 04/24/17 10:10 Dose: 100 mg Furosemide (Lasix) 40 mg IVP DAILY [facility] Last Admin: 04/24/17 10:09 Dose: 40 mg Home Med (Home Med) 0 unit PO BID [facility] Last Admin: 04/24/17 11:49 Dose: 2 unit Hydromorphone HCl (Dilaudid) 3 mg IVP Q3H PRN PRN Reason: Pain, moderate (4-7) Last Admin: 04/23/17 17:46 Dose: 3 mg Meropenem 1g/NS 100mL IVPB (Meropenem 1g/Ns 100ml Ivpb) 1 gm in 100 mls @ 100 mls/hr IVPB Q12 [facility] PRN Reason: Protocol Stop: 04/30/17 22:01 Last Admin: 04/24/17 10:11 Dose: 100 mls/hr Insulin Human Regular (Humulin R Low) 0 units SC ACHS [facility] PRN Reason: Protocol Last Admin: 04/24/17 08:16 Dose: Not Given Levothyroxine Sodium (Synthroid) 100 mcg PO 0600 [facility] Last Admin: 04/24/17 05:15 Dose: 100 mcg Montelukast Sodium (Singulair) 10 mg PO DAILY [facility] Last Admin: 04/24/17 10:09 Dose: 10 mg Ondansetron HCl (Zofran Inj) 4 mg IVP Q4H PRN PRN Reason: Nausea/Vomiting Last Admin: 04/23/17 18:49 Dose: 4 mg Pantoprazole Sodium (Protonix Ec Tab) 40 mg PO 1000 [facility] Last Admin: 04/24/17 10:15 Dose: 40 mg Polyethylene Glycol (Miralax) 17 gm PO DAILY [facility] Last Admin: 04/24/17 10:09 Dose: 17 gm Prednisone (Prednisone Tab) 10 mg PO DAILY [facility] Last Admin: 04/24/17 10:09 Dose: 10 mg Tiotropium [place] (Spiriva) 18 mcg IH DAILY [facility] - Labs Labs: PT 11.2 Seconds (9.9-11.8) 04/23/17 12:00 INR 1.04 (0.93-1.08) 04/23/17 12:00 APTT 26.1 Seconds (23.7-30.8) 04/23/17 12:00 - Constitutional Appears: No Acute Distress - Head Exam Head Exam: NORMOCEPHALIC - Eye Exam Eye Exam: Normal appearance. absent: Scleral icterus - ENT Exam ENT Exam: Mucous Membranes Moist - Neck Exam Neck Exam: Normal Inspection - Respiratory Exam Respiratory Exam: Rhonchi, NORMAL BREATHING PATTERN. absent: Respiratory Distress - Cardiovascular Exam Cardiovascular Exam: +S1, +S2 - GI/Abdominal Exam GI & Abdominal Exam: Soft, Tenderness, Normal Bowel Sounds. absent: Guarding, Rebound - Extremities Exam Extremities Exam: Pedal Edema. absent: Calf Tenderness - Neurological Exam Neurological Exam: Alert, Awake, Oriented x3 - Skin Skin Exam: Dry, Warm Assessment and Plan - Assessment and Plan (Free Text) Assessment: ASSESSMENT: Abdominal Pain, s/p ct scan GB sludge, (+) lymphadenopathy as before H/O Bladder cancer Hematuria UTI Chronic constipation CHF COPD CKD CAD w/ stents PLAN: on Colace and miralax will give dose of Lactulose on IV antibiotics on Lasix continue PPI on Prednisone monitor electrolytes and h/h off Plavix and ASA diet as tolerated Seen and discussedw w/ Dr. Bal. <Fredi Bal V - Last Filed: 04/24/17 23:53> Objective - Vital Signs/Intake and Output Vital Signs (last 24 hours): Temp Pulse Resp BP Pulse Ox 97.8 F 62 16 139/56 L 99 04/24/17 18:00 04/24/17 18:00 04/24/17 18:00 04/24/17 18:00 04/24/17 06:00 Intake and Output: 04/24/17 04/25/17 18:59 06:59 Intake Total 420 Output Total 600 Balance -180 - Medications Medications: Current Medications Albuterol/Ipratropium (Duoneb 3 Mg/0.5 Mg (3 Ml) Ud) 3 ml IH [id number] [facility] Last Admin: 04/24/17 19:33 Dose: 3 ml Amiodarone HCl (Cordarone) 200 mg PO DAILY [facility] Last Admin: 04/24/17 10:10 Dose: 200 mg Atorvastatin Calcium (Lipitor) 10 mg PO DIN [facility] Last Admin: 04/24/17 18:29 Dose: 10 mg Budesonide (Pulmicort Respules) 0.5 mg IH BIDRESP [facility] Last Admin: 04/24/17 19:33 Dose: 0.5 mg Calcium Acetate (Phoslo) 667 mg PO DAILY [facility] Last Admin: 04/24/17 10:09 Dose: 667 mg Cholecalciferol (Vitamin D) 1,000 iu PO DAILY [facility] Last Admin: 04/24/17 10:09 Dose: 1,000 iu Digoxin (Lanoxin) 0.125 mg PO 1400 [facility] Last Admin: 04/24/17 15:22 Dose: 0.125 mg Docusate Sodium (Colace) 100 mg PO TID [facility] Last Admin: 04/24/17 18:28 Dose: 100 mg Furosemide (Lasix) 40 mg IVP DAILY [facility] Last Admin: 04/24/17 10:09 Dose: 40 mg Home Med (Home Med) 0 unit PO BID [facility] Last Admin: 04/24/17 18:27 Dose: 2 unit Hydromorphone HCl (Dilaudid) 3 mg IVP Q3H PRN PRN Reason: Pain, moderate (4-7) Last Admin: 04/23/17 17:46 Dose: 3 mg Meropenem 1g/NS 100mL IVPB (Meropenem 1g/Ns 100ml Ivpb) 1 gm in 100 mls @ 100 mls/hr IVPB Q12 [facility] PRN Reason: Protocol Stop: 04/30/17 22:01 Last Admin: 04/24/17 21:50 Dose: 100 mls/hr Insulin Human Regular (Humulin R Low) 0 units SC ACHS [facility] PRN Reason: Protocol Last Admin: 04/24/17 18:52 Dose: Not Given Levothyroxine Sodium (Synthroid) 100 mcg PO 0600 [facility] Last Admin: 04/24/17 05:15 Dose: 100 mcg Montelukast Sodium (Singulair) 10 mg PO DAILY [facility] Last Admin: 04/24/17 10:09 Dose: 10 mg Ondansetron HCl (Zofran Inj) 4 mg IVP Q4H PRN PRN Reason: Nausea/Vomiting Last Admin: 04/23/17 18:49 Dose: 4 mg Pantoprazole Sodium (Protonix Ec Tab) 40 mg PO 1000 [facility] Last Admin: 04/24/17 10:15 Dose: 40 mg Polyethylene Glycol (Miralax) 17 gm PO DAILY [facility] Last Admin: 04/24/17 10:09 Dose: 17 gm Prednisone (Prednisone Tab) 10 mg PO DAILY [facility] Last Admin: 04/24/17 10:09 Dose: 10 mg Tiotropium [place] (Spiriva) 18 mcg IH DAILY [facility] Last Admin: 04/24/17 14:01 Dose: 18 mcg - Labs Labs: PT 11.2 Seconds (9.9-11.8) 04/23/17 12:00 INR 1.04 (0.93-1.08) 04/23/17 12:00 APTT 26.1 Seconds (23.7-30.8) 04/23/17 12:00 Attending/Attestation - Attestation I have personally seen and examined this patient.: Yes I have fully participated in the care of the patient.: Yes I have reviewed all pertinent clinical information, including history, physical exam and plan: Yes Notes (Text): this
[2017-04-24] MEDS: Tiotropium 18 mcg Cap For Inhalation IH SCH (14:01)
[2017-04-24] MEDS: Digoxin 125 mcg (0.125 mg) Tab PO SCH (15:22)
--- NOTE | 2017-04-24 16:20 | CP.PCM.CON ---
History of Present Illness - History of Present Illness History of Present Illness: Reason for Consultation: CAD, CABG, PAF, CHF, S/p AICD 87 year old male with Hx of CAD, CABG, S/p PTCA before CABG andafter CABG, CKD, prostate CA with Mets , Ischemic CMP, S/p AICD ,S/p recent AICD gen change came with abdominal pain has indwelling schroeder's cath .dennies chest pain, SOB PMHX.CAD, CABG S/p PTCA before and after CABG ischemic CMP, S/p AICD, S/P aicd gen change 6 weeks ago ( approx0 Hx of prostate Ca indewlling foleys cath CKD HTN PAf Hx of DVT at on point pt was on pradaxa Dc B/c of heamaturia Hx of COPD Hx on indwelling Schroeder's cath prostate ca with Mets Hx of NSTEMI....b/c of underlying co morbidities and Asymtmatic...decided to trest medically Recent cardiac W?u ECHO... 12/20/2016 [id number] to Mild AR Mild to moderate , peak gradient 20 and mean gradient 12 with TAYLER 1,25cm2 C/W mild to moderate Mod MR Mild to mod Tr. [id number] mmof hg Review of Systems - Constitutional Constitutional: As Per HPI, Anorexia, Chills, Malaise - EENT Eyes: As Per HPI Ears: As Per HPI Nose/Mouth/Throat: As Per HPI - Cardiovascular Cardiovascular: As Per HPI - Respiratory Respiratory: As Per HPI - Gastrointestinal Gastrointestinal: Bloating, Cramping, Dysphagia Additional comments: severe lower abdominal pain. Past Patient History - Infectious Disease Hx of Infectious Diseases: None - Tetanus Immunizations Tetanus Immunization: Unknown - Past Medical History & Family History Past Family History: Reviewed and not pertinent - Past Social History Smoking Status: Never Smoked - CARDIAC Hx Cardiac Disorders: Yes Hx Congestive Heart Failure: Yes - PULMONARY Hx Chronic Obstructive Pulmonary Disease (COPD): Yes - NEUROLOGICAL Hx Neurological Disorder: No - HEENT Hx HEENT Problems: Yes Hx Cataracts: Yes (WITH b/t SURGERY) - RENAL Hx Neurogenic Bladder: Yes Hx Renal Failure: Yes - ENDOCRINE/METABOLIC Hx Diabetes Mellitus Type 2: Yes Hx Hypothyroidism: Yes - HEMATOLOGICAL/ONCOLOGICAL Hx Blood Disorders: Yes Hx Anemia: Yes (in past with blood transfusion) 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) - INTEGUMENTARY Hx Dermatological Problems: No - MUSCULOSKELETAL/RHEUMATOLOGICAL Hx Falls: Yes Hx Osteoarthritis: Yes - GASTROINTESTINAL Hx Gastrointestinal Disorders: No - GENITOURINARY/GYNECOLOGICAL Hx Genitourinary Disorders: Yes (URINARY RETENTION CHRONIC SCHROEDER) Hx Prostate Cancer: Yes (castrate resistant) - PSYCHIATRIC Hx Emotional Abuse: No Hx Physical Abuse: No Hx Substance Use: No - SURGICAL HISTORY Hx Cardiac Catheterization: Yes (w/ 4 stents) Hx Coronary Stent: Yes (X4) Hx Open Heart Surgery: Yes Other/Comment: PACEMAKER/AICD,MULTIPLE ANGIOPLASTIES,CATARACT SURGERY,CARDIAC STENTS X 4,QUADRUPLE BYPASS - ANESTHESIA Hx Anesthesia Reactions: No (none as per patient) Hx Malignant Hyperthermia: No Meds Allergies/Adverse Reactions: Allergies Allergy/AdvReac Type Severity Reaction Status Date / Time Iodinated Contrast- Oral and Allergy ANAPHYLAXIS Verified 04/23/17 11:49 IV Dye levofloxacin [From Levaquin] Allergy ANAPHYLAXIS Verified 04/23/17 11:49 - Medications Medications: Current Medications Albuterol/Ipratropium (Duoneb 3 Mg/0.5 Mg (3 Ml) Ud) 3 ml IH [id number] [facility] Last Admin: 04/24/17 13:13 Dose: 3 ml Amiodarone HCl (Cordarone) 200 mg PO DAILY [facility] Last Admin: 04/24/17 10:10 Dose: 200 mg Atorvastatin Calcium (Lipitor) 10 mg PO DIN [facility] Last Admin: 04/23/17 17:46 Dose: Not Given Budesonide (Pulmicort Respules) 0.5 mg IH BIDRESP [facility] Calcium Acetate (Phoslo) 667 mg PO DAILY [facility] Last Admin: 04/24/17 10:09 Dose: 667 mg Cholecalciferol (Vitamin D) 1,000 iu PO DAILY [facility] Last Admin: 04/24/17 10:09 Dose: 1,000 iu Digoxin (Lanoxin) 0.125 mg PO 1400 [facility] Last Admin: 04/24/17 15:22 Dose: 0.125 mg Docusate Sodium (Colace) 100 mg PO TID [facility] Last Admin: 04/24/17 15:21 Dose: 100 mg Furosemide (Lasix) 40 mg IVP DAILY [facility] Last Admin: 04/24/17 10:09 Dose: 40 mg Home Med (Home Med) 0 unit PO BID [facility] Last Admin: 04/24/17 11:49 Dose: 2 unit Hydromorphone HCl (Dilaudid) 3 mg IVP Q3H PRN PRN Reason: Pain, moderate (4-7) Last Admin: 04/23/17 17:46 Dose: 3 mg Meropenem 1g/NS 100mL IVPB (Meropenem 1g/Ns 100ml Ivpb) 1 gm in 100 mls @ 100 mls/hr IVPB Q12 [facility] PRN Reason: Protocol Stop: 04/30/17 22:01 Last Admin: 04/24/17 10:11 Dose: 100 mls/hr Insulin Human Regular (Humulin R Low) 0 units SC ACHS [facility] PRN Reason: Protocol Last Admin: 04/24/17 13:00 Dose: 1 units Levothyroxine Sodium (Synthroid) 100 mcg PO 0600 [facility] Last Admin: 04/24/17 05:15 Dose: 100 mcg Montelukast Sodium (Singulair) 10 mg PO DAILY [facility] Last Admin: 04/24/17 10:09 Dose: 10 mg Ondansetron HCl (Zofran Inj) 4 mg IVP Q4H PRN PRN Reason: Nausea/Vomiting Last Admin: 04/23/17 18:49 Dose: 4 mg Pantoprazole Sodium (Protonix Ec Tab) 40 mg PO 1000 [facility] Last Admin: 04/24/17 10:15 Dose: 40 mg Polyethylene Glycol (Miralax) 17 gm PO DAILY [facility] Last Admin: 04/24/17 10:09 Dose: 17 gm Prednisone (Prednisone Tab) 10 mg PO DAILY [facility] Last Admin: 04/24/17 10:09 Dose: 10 mg Tiotropium [place] (Spiriva) 18 mcg IH DAILY [facility] Last Admin: 04/24/17 14:01 Dose: 18 mcg Physical Exam - Constitutional Appears: Non-toxic - Head Exam Head Exam: ATRAUMATIC - Eye Exam Eye Exam: Conjunctival injection - ENT Exam ENT Exam: Mucous Membranes Dry - Neck Exam Neck exam: Positive for: Full Rom - Respiratory Exam Respiratory Exam: Clear to Auscultation Bilateral - Cardiovascular Exam Cardiovascular Exam: Bradycardia, REGULAR RHYTHM - GI/Abdominal Exam GI & Abdominal Exam: Distended, Tenderness - Rectal Exam Rectal Exam: NORMAL INSPECTION Results - Vital Signs Recent Vital Signs: Last Vital Signs Temp 98.6 F 04/24/17 12:00 Pulse 63 04/24/17 14:00 Resp 20 04/24/17 12:00 BP 119/47 L 04/24/17 12:00 Pulse Ox 99 04/24/17 06:00 - Labs Result Diagrams: 04/24/17 06:40 04/24/17 07:00 Labs: Laboratory Results - last 24 hr 04/24/17 11:25 POC Glucose (mg/dL) 193 H Assessment & Plan - Assessment and Plan (Free Text) Assessment: 87 year old male with pMhx of CAd, CABG S/p PTCA before and after CABG UTI Hx of prostate Ca with Mets admitted with Abdominal pain has indwelling cath S/p AICD. Non ischemic CMP S/p gen change 4-6 wweeks ago COPD Hx of NSTEMI ...treated medically Hx of DVT, Hx of PAF now in NR No evidence of Nstemi now Plan: resume current meds GI eval will follow. CV[facility] status stable.
[2017-04-24] MEDS: Budesonide 0.5 mg/2 ml Inhal Susp UD IH SCH (19:33)
[2017-04-25] MEDS: Albuterol-Ipratrop 3 mg / 0.5 (3 ml) UD IH SCH ×3 (02:30→19:25)
[2017-04-25] MEDS: Insulin Reg-LOW-Coverage SC SCH ×5 (04:23→22:55)
[2017-04-25] MEDS: Levothyroxine 100 MCG TAB PO SCH (05:38)
--- NOTE | 2017-04-25 07:50 | CP.PCM.PN ---
Subjective - Date & Time of Evaluation Date of Evaluation: 04/25/17 Time of Evaluation: 07:25 - Subjective Subjective: Patient had bowel movement yesterday. Still complaining of some abdominal pain although improved with Morphine. Objective - Vital Signs/Intake and Output Vital Signs (last 24 hours): Temp Pulse Resp BP Pulse Ox 97.6 F 63 20 141/68 99 04/25/17 06:00 04/25/17 06:00 04/25/17 06:00 04/25/17 06:00 04/25/17 06:00 Intake and Output: 04/25/17 04/25/17 06:59 18:59 Intake Total 240 Output Total 2200 Balance -1960 - Medications Medications: Current Medications Albuterol/Ipratropium (Duoneb 3 Mg/0.5 Mg (3 Ml) Ud) 3 ml IH [id number] [facility] Last Admin: 04/25/17 02:30 Dose: Not Given Amiodarone HCl (Cordarone) 200 mg PO DAILY [facility] Last Admin: 04/24/17 10:10 Dose: 200 mg Atorvastatin Calcium (Lipitor) 10 mg PO DIN [facility] Last Admin: 04/24/17 18:29 Dose: 10 mg Budesonide (Pulmicort Respules) 0.5 mg IH BIDRESP [facility] Last Admin: 04/24/17 19:33 Dose: 0.5 mg Calcium Acetate (Phoslo) 667 mg PO DAILY [facility] Last Admin: 04/24/17 10:09 Dose: 667 mg Cholecalciferol (Vitamin D) 1,000 iu PO DAILY [facility] Last Admin: 04/24/17 10:09 Dose: 1,000 iu Digoxin (Lanoxin) 0.125 mg PO 1400 [facility] Last Admin: 04/24/17 15:22 Dose: 0.125 mg Docusate Sodium (Colace) 100 mg PO TID [facility] Last Admin: 04/24/17 18:28 Dose: 100 mg Furosemide (Lasix) 40 mg IVP DAILY [facility] Last Admin: 04/24/17 10:09 Dose: 40 mg Home Med (Home Med) 0 unit PO BID [facility] Last Admin: 04/24/17 18:27 Dose: 2 unit Hydromorphone HCl (Dilaudid) 3 mg IVP Q3H PRN PRN Reason: Pain, moderate (4-7) Last Admin: 04/23/17 17:46 Dose: 3 mg Meropenem 1g/NS 100mL IVPB (Meropenem 1g/Ns 100ml Ivpb) 1 gm in 100 mls @ 100 mls/hr IVPB Q12 [facility] PRN Reason: Protocol Stop: 04/30/17 22:01 Last Admin: 04/24/17 21:50 Dose: 100 mls/hr Insulin Human Regular (Humulin R Low) 0 units SC ACHS [facility] PRN Reason: Protocol Last Admin: 04/25/17 04:23 Dose: Not Given Levothyroxine Sodium (Synthroid) 100 mcg PO 0600 [facility] Last Admin: 04/25/17 05:38 Dose: 100 mcg Montelukast Sodium (Singulair) 10 mg PO DAILY [facility] Last Admin: 04/24/17 10:09 Dose: 10 mg Ondansetron HCl (Zofran Inj) 4 mg IVP Q4H PRN PRN Reason: Nausea/Vomiting Last Admin: 04/23/17 18:49 Dose: 4 mg Pantoprazole Sodium (Protonix Ec Tab) 40 mg PO 1000 [facility] Last Admin: 04/24/17 10:15 Dose: 40 mg Polyethylene Glycol (Miralax) 17 gm PO DAILY [facility] Last Admin: 04/24/17 10:09 Dose: 17 gm Prednisone (Prednisone Tab) 10 mg PO DAILY [facility] Last Admin: 04/24/17 10:09 Dose: 10 mg Tiotropium [place] (Spiriva) 18 mcg IH DAILY [facility] Last Admin: 04/24/17 14:01 Dose: 18 mcg - Labs Labs: PT 11.2 Seconds (9.9-11.8) 04/23/17 12:00 INR 1.04 (0.93-1.08) 04/23/17 12:00 APTT 26.1 Seconds (23.7-30.8) 04/23/17 12:00 - Constitutional Appears: No Acute Distress - Head Exam Head Exam: ATRAUMATIC, NORMOCEPHALIC - Respiratory Exam Respiratory Exam: Rhonchi, NORMAL BREATHING PATTERN - Cardiovascular Exam Cardiovascular Exam: +S1, +S2 - GI/Abdominal Exam GI & Abdominal Exam: Soft, Tenderness, Normal Bowel Sounds - Extremities Exam Extremities Exam: Pedal Edema - Neurological Exam Neurological Exam: Alert, Awake, Oriented x3 Assessment and Plan - Assessment and Plan (Free Text) Assessment: Abdominal pain SIRS Urinary Tract Infection Chronic systolic and diastolic heart failure CKD Coronary Artery disease Diabetes mellitus II Hypothyroidism Prostate cancer Hematuria Plan: Infectious disease, gastroenterology and cardiology consults appreciated. continue IV Meropenem, blood cultures negative so far, urine culture is pending continue Morphine IV for pain control continue Tranaxemic acid for hematuria; hemoglobin 10.5 continue colace and miralax for constipation Consult Nephrology for Chronic kidney disease
[2017-04-25] MEDS: Budesonide 0.5 mg/2 ml Inhal Susp UD IH SCH ×2 (07:57→19:25)
[2017-04-25] MEDS: Insulin Human NPH/Reg 70/30 Vial(3 ml) SC SCH ×4 (08:11→22:00)
[2017-04-25 08:19] LABS: BASO # 0.02 K/mm3 (0.0-2.0); BASO % 0.1 % (0.0-3.0); EOS # 0.3 (0.0-0.7); EOS % 2.3 % (1.5-5.0); GRAN # 10.91 (1.4-6.5); GRAN % 77.3 % (50.0-68.0); HEMOGLOBIN 10.8 gm/dL (14.0-18.0); LYMPH # 1.3 (1.2-3.4); LYMPH % 9.1 % (22.0-35.0); MEAN CELL VOLUME 87.8 fL (80.0-105.0); MEAN CORPUSCULAR HEMOGLOBIN 26.9 pg (25.0-35.0); MEAN CORPUSCULAR HGB CONC 30.6 g/dl (31.0-37.0); MONO # 1.6 (0.1-0.6); MONO % 11.2 % (1.0-6.0); PLATELET COUNT 189 10^3/uL (120.0-450.0); RBC 4.02 10^6/uL (3.5-6.1); RED CELL DISTRIBUTION WIDTH 14.6 % (11.5-14.5); WHITE BLOOD COUNT 14.1 10^3/ul (4.5-11.0)
[2017-04-25 08:31] LABS: ALB/GLOB RATIO 1.2 (1.1-1.8); ALBUMIN 3.3 g/dL (3.0-4.8); CALCIUM 8.6 mg/dL (8.4-10.5)
[2017-04-25] MEDS: Pantoprazole 40 mg EC Tab PO SCH (10:09)
[2017-04-25] MEDS: POLYETHYLENE GLYCOL 3350 17 GM/Dose PACKET PO SCH (10:11)
--- NOTE | 2017-04-25 10:12 | CP.PCM.PN ---
Subjective - Date & Time of Evaluation Date of Evaluation: 04/25/17 Time of Evaluation: 08:15 - Subjective Subjective: No chest pain, NO SOB, No palpitation. Objective - Vital Signs/Intake and Output Vital Signs (last 24 hours): Temp Pulse Resp BP Pulse Ox 97.6 F 63 20 141/68 99 04/25/17 06:00 04/25/17 06:00 04/25/17 06:00 04/25/17 06:00 04/25/17 06:00 Intake and Output: 04/25/17 04/25/17 06:59 18:59 Intake Total 240 Output Total 2200 Balance -1960 - Medications Medications: Current Medications Albuterol/Ipratropium (Duoneb 3 Mg/0.5 Mg (3 Ml) Ud) 3 ml IH [id number] [facility] Last Admin: 04/25/17 07:57 Dose: 3 ml Amiodarone HCl (Cordarone) 200 mg PO DAILY [facility] Last Admin: 04/24/17 10:10 Dose: 200 mg Atorvastatin Calcium (Lipitor) 10 mg PO DIN [facility] Last Admin: 04/24/17 18:29 Dose: 10 mg Budesonide (Pulmicort Respules) 0.5 mg IH BIDRESP [facility] Last Admin: 04/25/17 07:57 Dose: 0.5 mg Calcium Acetate (Phoslo) 667 mg PO DAILY [facility] Last Admin: 04/24/17 10:09 Dose: 667 mg Cholecalciferol (Vitamin D) 1,000 iu PO DAILY [facility] Last Admin: 04/24/17 10:09 Dose: 1,000 iu Digoxin (Lanoxin) 0.125 mg PO 1400 [facility] Last Admin: 04/24/17 15:22 Dose: 0.125 mg Docusate Sodium (Colace) 100 mg PO TID [facility] Last Admin: 04/24/17 18:28 Dose: 100 mg Furosemide (Lasix) 40 mg IVP DAILY [facility] Last Admin: 04/24/17 10:09 Dose: 40 mg Home Med (Home Med) 0 unit PO BID [facility] Last Admin: 04/24/17 18:27 Dose: 2 unit Hydromorphone HCl (Dilaudid) 3 mg IVP Q3H PRN PRN Reason: Pain, moderate (4-7) Last Admin: 04/23/17 17:46 Dose: 3 mg Meropenem 1g/NS 100mL IVPB (Meropenem 1g/Ns 100ml Ivpb) 1 gm in 100 mls @ 100 mls/hr IVPB Q12 [facility] PRN Reason: Protocol Stop: 04/30/17 22:01 Last Admin: 04/24/17 21:50 Dose: 100 mls/hr Insulin Human Regular (Humulin R Low) 0 units SC ACHS [facility] PRN Reason: Protocol Last Admin: 04/25/17 08:13 Dose: Not Given Levothyroxine Sodium (Synthroid) 100 mcg PO 0600 [facility] Last Admin: 04/25/17 05:38 Dose: 100 mcg Montelukast Sodium (Singulair) 10 mg PO DAILY [facility] Last Admin: 04/24/17 10:09 Dose: 10 mg Ondansetron HCl (Zofran Inj) 4 mg IVP Q4H PRN PRN Reason: Nausea/Vomiting Last Admin: 04/23/17 18:49 Dose: 4 mg Pantoprazole Sodium (Protonix Ec Tab) 40 mg PO 1000 [facility] Last Admin: 04/24/17 10:15 Dose: 40 mg Polyethylene Glycol (Miralax) 17 gm PO DAILY [facility] Last Admin: 04/24/17 10:09 Dose: 17 gm Prednisone (Prednisone Tab) 10 mg PO DAILY [facility] Last Admin: 04/24/17 10:09 Dose: 10 mg Tiotropium [place] (Spiriva) 18 mcg IH DAILY [facility] Last Admin: 04/24/17 14:01 Dose: 18 mcg - Labs Labs: 04/25/17 07:00 04/25/17 07:00 PT 11.2 Seconds (9.9-11.8) 04/23/17 12:00 INR 1.04 (0.93-1.08) 04/23/17 12:00 APTT 26.1 Seconds (23.7-30.8) 04/23/17 12:00 - Constitutional Appears: Well, Non-toxic - Head Exam Head Exam: ATRAUMATIC - Eye Exam Eye Exam: Conjunctival injection - ENT Exam ENT Exam: Mucous Membranes Dry - Neck Exam Neck Exam: Full ROM - Respiratory Exam Respiratory Exam: Clear to Ausculation Bilateral - Cardiovascular Exam Cardiovascular Exam: REGULAR RHYTHM - GI/Abdominal Exam GI & Abdominal Exam: Tenderness Additional comments: Has indwelling Schroeder's cath. Assessment and Plan - Assessment and Plan (Free Text) Assessment: Abd. pain recurrent UTI indwelling schroeder"s cath CAD , CABG, Pre and post CaBG PTCA Ischemic CMP S/p AICD S/p recent AICD ,gen change ...6 weeks ago HTN T2DM PAF Hx of DVT off anticoag B/c hematuria prostate Ca hyperkalemia Plan: Dc tele ,needs isolation for UTI Anibitics Continue Lasix amiodarone repeat K if >5.4 ,kayexalte ?
[2017-04-25] MEDS: Tiotropium 18 mcg Cap For Inhalation IH SCH (10:13)
[2017-04-25] MEDS: Meropenem 1g/NS 100mL IVPB 1 GM/100 ML PIGGYBACK IVPB SCH (10:14)
--- NOTE | 2017-04-25 10:30 | CP.PCM.CON ---
History of Present Illness - History of Present Illness History of Present Illness: Reason for consultation: Hyponatremia, hyperkalemia HPI:87 year old male with Hx of CAD, CABG, S/p PTCA before CABG andafter CABG, CKD, prostate CA with Mets , Ischemic CMP, S/p AICD ,S/p recent AICD gen change came with abdominal pain, SOB, Hematuria, constipation, has indwelling schroeder's cath .No chest pain, PMHX.CAD, CABG S/p PTCA before and after CABG ischemic CMP, S/p AICD, S/P aicd gen change 6 weeks ago ( approx0 Hx of prostate Ca indewlling foleys cath CKD 3/4 HTN PAf Hx of DVT at on point pt was on pradaxa Dc B/c of heamaturia Hx of COPD Hx on indwelling Schroeder's cath, recurrent hematuria, UTI prostate ca with Mets NIDDM FHx: NC SHx: No smoking, no alcohol, no IVDA ALL: Contrast, Levaquin Review of Systems - Review of Systems All systems: reviewed and no additional remarkable complaints except Past Patient History - Infectious Disease Hx of Infectious Diseases: None - Tetanus Immunizations Tetanus Immunization: Unknown - Past Medical History & Family History Past Family History: Reviewed and not pertinent - Past Social History Smoking Status: Never Smoked - CARDIAC Hx Cardiac Disorders: Yes Hx Congestive Heart Failure: Yes - PULMONARY Hx Chronic Obstructive Pulmonary Disease (COPD): Yes - NEUROLOGICAL Hx Neurological Disorder: No - HEENT Hx HEENT Problems: Yes Hx Cataracts: Yes (WITH b/t SURGERY) - RENAL Hx Neurogenic Bladder: Yes Hx Renal Failure: Yes - ENDOCRINE/METABOLIC Hx Diabetes Mellitus Type 2: Yes Hx Hypothyroidism: Yes - HEMATOLOGICAL/ONCOLOGICAL Hx Blood Disorders: Yes Hx Anemia: Yes (in past with blood transfusion) 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) - INTEGUMENTARY Hx Dermatological Problems: No - MUSCULOSKELETAL/RHEUMATOLOGICAL Hx Falls: Yes Hx Osteoarthritis: Yes - GASTROINTESTINAL Hx Gastrointestinal Disorders: No - GENITOURINARY/GYNECOLOGICAL Hx Genitourinary Disorders: Yes (URINARY RETENTION CHRONIC SCHROEDER) Hx Prostate Cancer: Yes (castrate resistant) - PSYCHIATRIC Hx Emotional Abuse: No Hx Physical Abuse: No Hx Substance Use: No - SURGICAL HISTORY Hx Cardiac Catheterization: Yes (w/ 4 stents) Hx Coronary Stent: Yes (X4) Hx Open Heart Surgery: Yes Other/Comment: PACEMAKER/AICD,MULTIPLE ANGIOPLASTIES,CATARACT SURGERY,CARDIAC STENTS X 4,QUADRUPLE BYPASS - ANESTHESIA Hx Anesthesia Reactions: No (none as per patient) Hx Malignant Hyperthermia: No Meds Allergies/Adverse Reactions: Allergies Allergy/AdvReac Type Severity Reaction Status Date / Time Iodinated Contrast- Oral and Allergy ANAPHYLAXIS Verified 04/23/17 11:49 IV Dye levofloxacin [From Levaquin] Allergy ANAPHYLAXIS Verified 04/23/17 11:49 - Medications Medications: Current Medications Albuterol/Ipratropium (Duoneb 3 Mg/0.5 Mg (3 Ml) Ud) 3 ml IH [id number] [facility] Last Admin: 04/25/17 07:57 Dose: 3 ml Amiodarone HCl (Cordarone) 200 mg PO DAILY [facility] Last Admin: 04/24/17 10:10 Dose: 200 mg Atorvastatin Calcium (Lipitor) 10 mg PO DIN [facility] Last Admin: 04/24/17 18:29 Dose: 10 mg Budesonide (Pulmicort Respules) 0.5 mg IH BIDRESP [facility] Last Admin: 04/25/17 07:57 Dose: 0.5 mg Calcium Acetate (Phoslo) 667 mg PO DAILY [facility] Last Admin: 04/24/17 10:09 Dose: 667 mg Cholecalciferol (Vitamin D) 1,000 iu PO DAILY [facility] Last Admin: 04/24/17 10:09 Dose: 1,000 iu Digoxin (Lanoxin) 0.125 mg PO 1400 [facility] Last Admin: 04/24/17 15:22 Dose: 0.125 mg Docusate Sodium (Colace) 100 mg PO TID [facility] Last Admin: 04/24/17 18:28 Dose: 100 mg Furosemide (Lasix) 40 mg IVP DAILY [facility] Last Admin: 04/24/17 10:09 Dose: 40 mg Home Med (Home Med) 0 unit PO BID [facility] Last Admin: 04/24/17 18:27 Dose: 2 unit Hydromorphone HCl (Dilaudid) 3 mg IVP Q3H PRN PRN Reason: Pain, moderate (4-7) Last Admin: 04/23/17 17:46 Dose: 3 mg Meropenem 1g/NS 100mL IVPB (Meropenem 1g/Ns 100ml Ivpb) 1 gm in 100 mls @ 100 mls/hr IVPB Q12 [facility] PRN Reason: Protocol Stop: 04/30/17 22:01 Last Admin: 04/24/17 21:50 Dose: 100 mls/hr Insulin Human Regular (Humulin R Low) 0 units SC ACHS [facility] PRN Reason: Protocol Last Admin: 04/25/17 08:13 Dose: Not Given Levothyroxine Sodium (Synthroid) 100 mcg PO 0600 [facility] Last Admin: 04/25/17 05:38 Dose: 100 mcg Montelukast Sodium (Singulair) 10 mg PO DAILY [facility] Last Admin: 04/24/17 10:09 Dose: 10 mg Ondansetron HCl (Zofran Inj) 4 mg IVP Q4H PRN PRN Reason: Nausea/Vomiting Last Admin: 04/23/17 18:49 Dose: 4 mg Pantoprazole Sodium (Protonix Ec Tab) 40 mg PO 1000 [facility] Last Admin: 04/24/17 10:15 Dose: 40 mg Polyethylene Glycol (Miralax) 17 gm PO DAILY [facility] Last Admin: 04/24/17 10:09 Dose: 17 gm Prednisone (Prednisone Tab) 10 mg PO DAILY [facility] Last Admin: 04/24/17 10:09 Dose: 10 mg Sodium Polystyrene Sulfonate (Kayexalate Oral Susp) 15 gm PO ONCE ONE Stop: 04/25/17 12:01 Tiotropium [place] (Spiriva) 18 mcg IH DAILY [facility] Last Admin: 04/24/17 14:01 Dose: 18 mcg Physical Exam - Constitutional Appears: Non-toxic, Chronically Ill - Head Exam Head Exam: ATRAUMATIC, NORMAL INSPECTION, NORMOCEPHALIC - Eye Exam Eye Exam: Normal appearance Pupil Exam: PERRL - ENT Exam ENT Exam: Mucous Membranes Moist - Respiratory Exam Respiratory Exam: Rhonchi, NORMAL BREATHING PATTERN - Cardiovascular Exam Cardiovascular Exam: Diastolic murmur, REGULAR RHYTHM, +S1, +S2, Systolic Murmur - GI/Abdominal Exam GI & Abdominal Exam: Normal Bowel Sounds, Soft, Tenderness - Extremities Exam Extremities exam: Positive for: normal inspection - Neurological Exam Neurological exam: Alert, Oriented x3 Results - Vital Signs Recent Vital Signs: Last Vital Signs Temp 97.6 F 04/25/17 06:00 Pulse 63 04/25/17 06:00 Resp 20 04/25/17 06:00 BP 141/68 04/25/17 06:00 Pulse Ox 99 04/25/17 06:00 - Labs Result Diagrams: 04/25/17 07:00 04/25/17 07:00 Labs: Laboratory Results - last 24 hr 04/24/17 04/24/17 04/24/17 11:25 17:07 21:28 WBC RBC Hgb Hct MCV MCH MCHC RDW Plt Count MPV Gran % Lymph % (Auto) Banks % (Auto) Eos % (Auto) Baso % (Auto) Gran # Lymph # Banks # Eos # Baso # Sodium Potassium Chloride Carbon Dioxide Anion Gap BUN Creatinine Est GFR ( Amer) Est GFR (Non-Af Amer) POC Glucose (mg/dL) 193 H 134 H 225 H Random Glucose Calcium Total Bilirubin AST ALT Alkaline Phosphatase Total Protein Albumin Globulin Albumin/Globulin Ratio 04/25/17 04/25/17 04/25/17 05:59 07:00 07:00 WBC 14.1 H RBC 4.02 Hgb 10.8 L Hct 35.3 L MCV 87.8 MCH 26.9 MCHC 30.6 L RDW 14.6 H Plt Count 189 MPV 11.0 Gran % 77.3 H Lymph % (Auto) 9.1 L Banks % (Auto) 11.2 H Eos % (Auto) 2.3 Baso % (Auto) 0.1 Gran # 10.91 H Lymph # 1.3 Banks # 1.6 H Eos # 0.3 Baso # 0.02 Sodium 130 L Potassium 5.3 H Chloride 94 L Carbon Dioxide 29 Anion Gap 12 BUN 43 H Creatinine 1.4 Est GFR ( Amer) 58 Est GFR (Non-Af Amer) 48 POC Glucose (mg/dL) 55 L Random Glucose 107 Calcium 8.6 Total Bilirubin 0.7 AST 96 H ALT 118 H Alkaline Phosphatase 86 Total Protein 6.2 Albumin 3.3 Globulin 2.8 Albumin/Globulin Ratio 1.2 04/25/17 08:00 WBC RBC Hgb Hct MCV MCH MCHC RDW Plt Count MPV Gran % Lymph % (Auto) Banks % (Auto) Eos % (Auto) Baso % (Auto) Gran # Lymph # Banks # Eos # Baso # Sodium Potassium Chloride Carbon Dioxide Anion Gap BUN Creatinine Est GFR ( Amer) Est GFR (Non-Af Amer) POC Glucose (mg/dL) 104 Random Glucose Calcium Total Bilirubin AST ALT Alkaline Phosphatase Total Protein Albumin Globulin Albumin/Globulin Ratio Assessment & Plan - Assessment and Plan (Free Text) Assessment: 87 yr old male with multiple medical problems admitted with lower abdominal pain , hematuria, SOB Found to have severe constipation, resistant Klebsiella UTI Mild ARGENIS superimposed on CKD 3/4 now with Hyponatremia- mild Hyperkalemia- mild Appears euvolemic Check urine Na, UOsm, S Uric acid Monitor K, no intervention needed may have hypoaldosteronism Avoid nephrotoxins, D/w Dr Oneil, avoid Amikacin Thank u for this consultation - Date & Time Date: 04/25/17 Time: 10:00
--- NOTE | 2017-04-25 10:45 | CP.PCM.PN ---
<Claudia Armendariz - Last Filed: 04/25/17 10:44> Subjective - Date & Time of Evaluation Date of Evaluation: 04/25/17 Time of Evaluation: 09:20 - Subjective Subjective: S&E at bedside, chart reviewed had large BM yesterday,gave dose of lactulose, semi loose, no bleeding, still c/o lower abdominal pain. Urine clearing up. No N /V , sob or cp. Objective - Vital Signs/Intake and Output Vital Signs (last 24 hours): Temp Pulse Resp BP Pulse Ox 97.6 F 60 20 119/49 L 99 04/25/17 06:00 04/25/17 10:09 04/25/17 06:00 04/25/17 10:12 04/25/17 06:00 Intake and Output: 04/25/17 04/25/17 06:59 18:59 Intake Total 240 Output Total 2200 Balance -1960 - Medications Medications: Current Medications Albuterol/Ipratropium (Duoneb 3 Mg/0.5 Mg (3 Ml) Ud) 3 ml IH [id number] [facility] Last Admin: 04/25/17 07:57 Dose: 3 ml Amiodarone HCl (Cordarone) 200 mg PO DAILY [facility] Last Admin: 04/25/17 10:09 Dose: 200 mg Atorvastatin Calcium (Lipitor) 10 mg PO DIN [facility] Last Admin: 04/24/17 18:29 Dose: 10 mg Budesonide (Pulmicort Respules) 0.5 mg IH BIDRESP [facility] Last Admin: 04/25/17 07:57 Dose: 0.5 mg Calcium Acetate (Phoslo) 667 mg PO DAILY [facility] Last Admin: 04/25/17 10:07 Dose: 667 mg Cholecalciferol (Vitamin D) 1,000 iu PO DAILY [facility] Last Admin: 04/25/17 10:08 Dose: 1,000 iu Digoxin (Lanoxin) 0.125 mg PO 1400 [facility] Last Admin: 04/24/17 15:22 Dose: 0.125 mg Docusate Sodium (Colace) 100 mg PO TID [facility] Last Admin: 04/25/17 10:07 Dose: 100 mg Furosemide (Lasix) 40 mg IVP DAILY [facility] Last Admin: 04/25/17 10:12 Dose: 40 mg Home Med (Home Med) 0 unit PO BID [facility] Last Admin: 04/25/17 10:34 Dose: 1 unit Hydromorphone HCl (Dilaudid) 3 mg IVP Q3H PRN PRN Reason: Pain, moderate (4-7) Last Admin: 04/23/17 17:46 Dose: 3 mg Ceftazidime/Avibactam 1.25 gm/ (Sodium Chloride) 100 mls @ 50 mls/hr IVPB Q8 [facility] Stop: 04/30/17 14:01 Insulin Human Regular (Humulin R Low) 0 units SC ACHS [facility] PRN Reason: Protocol Last Admin: 04/25/17 08:13 Dose: Not Given Levothyroxine Sodium (Synthroid) 100 mcg PO 0600 [facility] Last Admin: 04/25/17 05:38 Dose: 100 mcg Montelukast Sodium (Singulair) 10 mg PO DAILY [facility] Last Admin: 04/25/17 10:10 Dose: 10 mg Ondansetron HCl (Zofran Inj) 4 mg IVP Q4H PRN PRN Reason: Nausea/Vomiting Last Admin: 04/23/17 18:49 Dose: 4 mg Pantoprazole Sodium (Protonix Ec Tab) 40 mg PO 1000 [facility] Last Admin: 04/25/17 10:09 Dose: 40 mg Polyethylene Glycol (Miralax) 17 gm PO DAILY [facility] Last Admin: 04/25/17 10:11 Dose: 17 gm Prednisone (Prednisone Tab) 10 mg PO DAILY [facility] Last Admin: 04/25/17 10:08 Dose: 10 mg Sodium Polystyrene Sulfonate (Kayexalate Oral Susp) 15 gm PO ONCE ONE Stop: 04/25/17 12:01 Tiotropium [place] (Spiriva) 18 mcg IH DAILY [facility] Last Admin: 04/25/17 10:13 Dose: 18 mcg - Labs Labs: 04/25/17 07:00 04/25/17 07:00 PT 11.2 Seconds (9.9-11.8) 04/23/17 12:00 INR 1.04 (0.93-1.08) 04/23/17 12:00 APTT 26.1 Seconds (23.7-30.8) 04/23/17 12:00 - Constitutional Appears: No Acute Distress - Eye Exam Eye Exam: Normal appearance. absent: Scleral icterus - ENT Exam ENT Exam: Mucous Membranes Moist - Neck Exam Neck Exam: Normal Inspection - Respiratory Exam Respiratory Exam: NORMAL BREATHING PATTERN - Cardiovascular Exam Cardiovascular Exam: +S1, +S2 - GI/Abdominal Exam GI & Abdominal Exam: Soft, Tenderness (lower abdomen), Normal Bowel Sounds. absent: Guarding, Organomegaly, Rebound - Extremities Exam Extremities Exam: absent: Calf Tenderness, Pedal Edema - Neurological Exam Neurological Exam: Alert, Awake, Oriented x3 Assessment and Plan - Assessment and Plan (Free Text) Assessment: ASSESSMENT: Abdominal Pain, s/p ct scan GB sludge, (+) lymphadenopathy as before H/O Bladder cancer Hematuria Hyperkalemia UTI Chronic constipation CHF COPD CKD CAD w/ stents PLAN: on Colace and miralax getting dose of kayexalate on IV antibiotics on Lasix continue PPI on Prednisone monitor electrolytes and h/h off Plavix and ASA diet as tolerated Seen and discussed w/ Dr. Bal. <Fredi Bal V - Last Filed: 04/25/17 23:44> Objective - Vital Signs/Intake and Output Vital Signs (last 24 hours): Temp Pulse Resp BP Pulse Ox 97.8 F 60 20 155/78 H 96 04/25/17 11:46 04/25/17 11:46 04/25/17 11:46 04/25/17 11:46 04/25/17 09:00 Intake and Output: 04/25/17 04/26/17 18:59 06:59 Intake Total 120 Output Total 100 Balance 20 - Medications Medications: Current Medications Albuterol/Ipratropium (Duoneb 3 Mg/0.5 Mg (3 Ml) Ud) 3 ml IH [id number] [facility] Last Admin: 04/25/17 19:25 Dose: 3 ml Amiodarone HCl (Cordarone) 200 mg PO DAILY [facility] Last Admin: 04/25/17 10:09 Dose: 200 mg Atorvastatin Calcium (Lipitor) 10 mg PO DIN [facility] Last Admin: 04/25/17 17:35 Dose: 10 mg Budesonide (Pulmicort Respules) 0.5 mg IH BIDRESP [facility] Last Admin: 04/25/17 19:25 Dose: 0.5 mg Calcium Acetate (Phoslo) 667 mg PO DAILY [facility] Last Admin: 04/25/17 10:07 Dose: 667 mg Cholecalciferol (Vitamin D) 1,000 iu PO DAILY [facility] Digoxin (Lanoxin) 0.125 mg PO 1400 [facility] Last Admin: 04/25/17 15:03 Dose: 0.125 mg Docusate Sodium (Colace) 100 mg PO TID [facility] Last Admin: 04/25/17 17:35 Dose: 100 mg Furosemide (Lasix) 40 mg IVP DAILY [facility] Last Admin: 04/25/17 10:12 Dose: 40 mg Home Med (Home Med) 0 unit PO BID [facility] Last Admin: 04/25/17 17:43 Dose: Not Given Hydromorphone HCl (Dilaudid) 3 mg IVP Q3H PRN PRN Reason: Pain, moderate (4-7) Last Admin: 04/25/17 13:52 Dose: 3 mg Ceftazidime/Avibactam 1.25 gm/ (Sodium Chloride) 100 mls @ 50 mls/hr IVPB Q8 [facility] Stop: 04/30/17 14:01 Last Admin: 04/25/17 21:50 Dose: 50 mls/hr Insulin Human Regular (Humulin R Low) 0 units SC ACHS [facility] PRN Reason: Protocol Last Admin: 04/25/17 22:55 Dose: Not Given Levothyroxine Sodium (Synthroid) 100 mcg PO 0600 [facility] Last Admin: 04/25/17 05:38 Dose: 100 mcg Montelukast Sodium (Singulair) 10 mg PO DAILY [facility] Last Admin: 04/25/17 10:10 Dose: 10 mg Ondansetron HCl (Zofran Inj) 4 mg IVP Q4H PRN PRN Reason: Nausea/Vomiting Last Admin: 04/23/17 18:49 Dose: 4 mg Pantoprazole Sodium (Protonix Ec Tab) 40 mg PO 1000 [facility] Last Admin: 04/25/17 10:09 Dose: 40 mg Polyethylene Glycol (Miralax) 17 gm PO DAILY [facility] Last Admin: 04/25/17 10:11 Dose: 17 gm Prednisone (Prednisone Tab) 10 mg PO DAILY [facility] Last Admin: 04/25/17 10:08 Dose: 10 mg Tiotropium [place] (Spiriva) 18 mcg IH DAILY [facility] Last Admin: 04/25/17 10:13 Dose: 18 mcg - Labs Labs: 04/25/17 07:00 04/25/17 11:30 PT 11.2 Seconds (9.9-11.8) 04/23/17 12:00 INR 1.04 (0.93-1.08) 04/23/17 12:00 APTT 26.1 Seconds (23.7-30.8) 04/23/17 12:00 Attending/Attestation - Attestation I have personally seen and examined this patient.: Yes I have fully participated in the care of the patient.: Yes I have reviewed all pertinent clinical information, including history, physical exam and plan: Yes Notes (Text): thi
--- NOTE | 2017-04-25 11:05 | CP.PCM.PN ---
Subjective - Date & Time of Evaluation Date of Evaluation: 04/25/17 Time of Evaluation: 10:10 - Subjective Subjective: Comfortable in bed, not in distress, afebrile. Objective - Vital Signs/Intake and Output Vital Signs (last 24 hours): Temp Pulse Resp BP Pulse Ox 97.6 F 63 20 141/68 99 04/25/17 00:01 04/25/17 00:01 04/25/17 00:01 04/25/17 00:01 04/24/17 06:00 Intake and Output: 04/24/17 04/25/17 18:59 06:59 Intake Total 420 120 Output Total 600 1100 Balance -180 -980 - Medications Medications: Current Medications Albuterol/Ipratropium (Duoneb 3 Mg/0.5 Mg (3 Ml) Ud) 3 ml IH [id number] [facility] Last Admin: 04/25/17 02:30 Dose: Not Given Amiodarone HCl (Cordarone) 200 mg PO DAILY [facility] Last Admin: 04/24/17 10:10 Dose: 200 mg Atorvastatin Calcium (Lipitor) 10 mg PO DIN [facility] Last Admin: 04/24/17 18:29 Dose: 10 mg Budesonide (Pulmicort Respules) 0.5 mg IH BIDRESP [facility] Last Admin: 04/24/17 19:33 Dose: 0.5 mg Calcium Acetate (Phoslo) 667 mg PO DAILY [facility] Last Admin: 04/24/17 10:09 Dose: 667 mg Cholecalciferol (Vitamin D) 1,000 iu PO DAILY [facility] Last Admin: 04/24/17 10:09 Dose: 1,000 iu Digoxin (Lanoxin) 0.125 mg PO 1400 [facility] Last Admin: 04/24/17 15:22 Dose: 0.125 mg Docusate Sodium (Colace) 100 mg PO TID [facility] Last Admin: 04/24/17 18:28 Dose: 100 mg Furosemide (Lasix) 40 mg IVP DAILY [facility] Last Admin: 04/24/17 10:09 Dose: 40 mg Home Med (Home Med) 0 unit PO BID [facility] Last Admin: 04/24/17 18:27 Dose: 2 unit Hydromorphone HCl (Dilaudid) 3 mg IVP Q3H PRN PRN Reason: Pain, moderate (4-7) Last Admin: 04/23/17 17:46 Dose: 3 mg Meropenem 1g/NS 100mL IVPB (Meropenem 1g/Ns 100ml Ivpb) 1 gm in 100 mls @ 100 mls/hr IVPB Q12 JEANA PRN Reason: Protocol Stop: 04/30/17 22:01 Last Admin: 04/24/17 21:50 Dose: 100 mls/hr Insulin Human Regular (Humulin R Low) 0 units SC ACHS JEANA PRN Reason: Protocol Last Admin: 04/25/17 04:23 Dose: Not Given Levothyroxine Sodium (Synthroid) 100 mcg PO 0600 [facility] Last Admin: 04/25/17 05:38 Dose: 100 mcg Montelukast Sodium (Singulair) 10 mg PO DAILY [facility] Last Admin: 04/24/17 10:09 Dose: 10 mg Ondansetron HCl (Zofran Inj) 4 mg IVP Q4H PRN PRN Reason: Nausea/Vomiting Last Admin: 04/23/17 18:49 Dose: 4 mg Pantoprazole Sodium (Protonix Ec Tab) 40 mg PO 1000 [facility] Last Admin: 04/24/17 10:15 Dose: 40 mg Polyethylene Glycol (Miralax) 17 gm PO DAILY [facility] Last Admin: 04/24/17 10:09 Dose: 17 gm Prednisone (Prednisone Tab) 10 mg PO DAILY [facility] Last Admin: 04/24/17 10:09 Dose: 10 mg Tiotropium [place] (Spiriva) 18 mcg IH DAILY [facility] Last Admin: 04/24/17 14:01 Dose: 18 mcg - Labs Labs: PT 11.2 Seconds (9.9-11.8) 04/23/17 12:00 INR 1.04 (0.93-1.08) 04/23/17 12:00 APTT 26.1 Seconds (23.7-30.8) 04/23/17 12:00 - Constitutional Appears: Non-toxic, No Acute Distress - Head Exam Head Exam: NORMAL INSPECTION - Neck Exam Neck Exam: absent: Meningismus - Respiratory Exam Respiratory Exam: Decreased Breath Sounds - Cardiovascular Exam Cardiovascular Exam: +S1, +S2 - GI/Abdominal Exam GI & Abdominal Exam: Soft. absent: Tenderness Assessment and Plan - Assessment and Plan (Free Text) Plan: Assessment Consider lower urinary tract infection in a patient with indwelling Avendano catheter growing Carbapenem-resistant Klebsiella history of right foot necrotic ulcer with surrounding cellulitis UTI with Enterococcus and Klebsiella chronic renal failure history of DVT DM Prostate CA history of Enterococcus UTI atrial fibrillation S/P pacemaker and ICD placement Plan switch Merrem to Avycaz and will repeat urine cx tomorrow; reviewed CT scan of the abdomen and pelvis which showed some mural thickening of the urinary bladder will continue to follow clinically
--- NOTE | 2017-04-25 11:16 | CP.PCM.PN ---
<Devora Alvarado - Last Filed: 04/25/17 12:27> Subjective - Date & Time of Evaluation Date of Evaluation: 04/25/17 Time of Evaluation: 11:12 - Subjective Subjective: PGY-[address] Carballo urine turned yellow. 02/22 abdominal pain. worse by movement (+) cough, no phlegm. Objective - Vital Signs/Intake and Output Vital Signs (last 24 hours): Temp Pulse Resp BP Pulse Ox 97.6 F 60 20 119/49 L 99 04/25/17 06:00 04/25/17 10:09 04/25/17 06:00 04/25/17 10:12 04/25/17 06:00 Intake and Output: 04/25/17 04/25/17 06:59 18:59 Intake Total 240 Output Total 2200 Balance -1960 - Medications Medications: Current Medications Albuterol/Ipratropium (Duoneb 3 Mg/0.5 Mg (3 Ml) Ud) 3 ml IH [id number] [facility] Last Admin: 04/25/17 07:57 Dose: 3 ml Amiodarone HCl (Cordarone) 200 mg PO DAILY [facility] Last Admin: 04/25/17 10:09 Dose: 200 mg Atorvastatin Calcium (Lipitor) 10 mg PO DIN [facility] Last Admin: 04/24/17 18:29 Dose: 10 mg Budesonide (Pulmicort Respules) 0.5 mg IH BIDRESP [facility] Last Admin: 04/25/17 07:57 Dose: 0.5 mg Calcium Acetate (Phoslo) 667 mg PO DAILY [facility] Last Admin: 04/25/17 10:07 Dose: 667 mg Cholecalciferol (Vitamin D) 1,000 iu PO DAILY [facility] Last Admin: 04/25/17 10:08 Dose: 1,000 iu Digoxin (Lanoxin) 0.125 mg PO 1400 [facility] Last Admin: 04/24/17 15:22 Dose: 0.125 mg Docusate Sodium (Colace) 100 mg PO TID [facility] Last Admin: 04/25/17 10:07 Dose: 100 mg Furosemide (Lasix) 40 mg IVP DAILY [facility] Last Admin: 04/25/17 10:12 Dose: 40 mg Home Med (Home Med) 0 unit PO BID [facility] Last Admin: 04/25/17 10:34 Dose: 1 unit Hydromorphone HCl (Dilaudid) 3 mg IVP Q3H PRN PRN Reason: Pain, moderate (4-7) Last Admin: 04/23/17 17:46 Dose: 3 mg Ceftazidime/Avibactam 1.25 gm/ (Sodium Chloride) 100 mls @ 50 mls/hr IVPB Q8 [facility] Stop: 04/30/17 14:01 Insulin Human Regular (Humulin R Low) 0 units SC ACHS JEANA PRN Reason: Protocol Last Admin: 04/25/17 08:13 Dose: Not Given Levothyroxine Sodium (Synthroid) 100 mcg PO 0600 [facility] Last Admin: 04/25/17 05:38 Dose: 100 mcg Montelukast Sodium (Singulair) 10 mg PO DAILY [facility] Last Admin: 04/25/17 10:10 Dose: 10 mg Ondansetron HCl (Zofran Inj) 4 mg IVP Q4H PRN PRN Reason: Nausea/Vomiting Last Admin: 04/23/17 18:49 Dose: 4 mg Pantoprazole Sodium (Protonix Ec Tab) 40 mg PO 1000 [facility] Last Admin: 04/25/17 10:09 Dose: 40 mg Polyethylene Glycol (Miralax) 17 gm PO DAILY [facility] Last Admin: 04/25/17 10:11 Dose: 17 gm Prednisone (Prednisone Tab) 10 mg PO DAILY [facility] Last Admin: 04/25/17 10:08 Dose: 10 mg Sodium Polystyrene Sulfonate (Kayexalate Oral Susp) 15 gm PO ONCE ONE Stop: 04/25/17 12:01 Tiotropium [place] (Spiriva) 18 mcg IH DAILY [facility] Last Admin: 04/25/17 10:13 Dose: 18 mcg - Labs Labs: 04/25/17 07:00 04/25/17 07:00 PT 11.2 Seconds (9.9-11.8) 04/23/17 12:00 INR 1.04 (0.93-1.08) 04/23/17 12:00 APTT 26.1 Seconds (23.7-30.8) 04/23/17 12:00 - Constitutional Appears: No Acute Distress - Head Exam Head Exam: ATRAUMATIC, NORMAL INSPECTION, NORMOCEPHALIC - Eye Exam Eye Exam: EOMI, Normal appearance, PERRL. absent: Scleral icterus - ENT Exam ENT Exam: Mucous Membranes Moist, Normal Exam - Neck Exam Neck Exam: Normal Inspection - Respiratory Exam Respiratory Exam: Decreased Breath Sounds (all lung corbett), Clear to Ausculation Bilateral. absent: Rales, Rhonchi, Wheezes - Cardiovascular Exam Cardiovascular Exam: REGULAR RHYTHM, +S1, +S2. absent: Murmur - GI/Abdominal Exam GI & Abdominal Exam: Soft, Tenderness (suprapubic on palpation; generalized tenderness) - Exam Additional comments: schroeder intact, yellow urine, not cloudy no clots - Extremities Exam Extremities Exam: Normal Capillary Refill. 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 Pt has hemauturia (hx icd, quadriple bypass), improving. Transamininitis with abdominal pain Abdominal pain - likely referred pain from origin - s/p lactulose. Had 1 BM yesterday. (+) BM today - CT negative of acute GI event Gross Hemautria, due to prostate ca - Hb stable 10.8 (10.5), plt 189, inr 1.04 - yellow urine - hold ASA and Plavix. 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, castrate resistent, with bone mets - CT abd/pelvis: multiple sclerotic lesions in bones - PSA, hcG, LDH - dilaudid prn for pain control COPD exacerbation UTI, complicated, indwelling Schroeder catheter growing Carbapenem-resistant Klebsiella; Enterococcus history of right foot necrotic ulcer with surrounding cellulitis Leukocytosis - Duoneb, prednisone taper - switch Merrem to Avycaz and will repeat urine cx tomorrow (avoid Amikacin) - CT scan of the abdomen and pelvis which showed mural thickening of the urinary bladder CHF - IV Lasix NIDDM Hx DVT CABG S/P pacemaker and ICD placement - Dc tele, Continue Lasix, amiodarone 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 Carballo <Rogelio Carballo P - Last Filed: 04/27/17 19:58> Objective - Vital Signs/Intake and Output Vital Signs (last 24 hours): Temp Pulse Resp BP Pulse Ox 97.7 F 70 19 145/65 99 04/27/17 17:55 04/27/17 17:55 04/27/17 17:55 04/27/17 17:55 04/27/17 17:55 Intake and Output: 04/27/17 04/28/17 18:59 06:59 Intake Total 720 Balance 720 - Medications Medications: Current Medications Albuterol/Ipratropium (Duoneb 3 Mg/0.5 Mg (3 Ml) Ud) 3 ml IH [id number] [facility] Last Admin: 04/27/17 13:11 Dose: 3 ml Amiodarone HCl (Cordarone) 200 mg PO DAILY [facility] Last Admin: 04/27/17 10:53 Dose: 200 mg Atorvastatin Calcium (Lipitor) 10 mg PO DIN [facility] Last Admin: 04/27/17 17:54 Dose: 10 mg Budesonide (Pulmicort Respules) 0.5 mg IH BIDRESP [facility] Last Admin: 04/27/17 07:28 Dose: 0.5 mg Calcium Acetate (Phoslo) 667 mg PO DAILY [facility] Last Admin: 04/27/17 10:53 Dose: 667 mg Cholecalciferol (Vitamin D) 1,000 iu PO DAILY [facility] Last Admin: 04/27/17 10:53 Dose: 1,000 iu Digoxin (Lanoxin) 0.125 mg PO 1400 [facility] Last Admin: 04/27/17 15:15 Dose: 0.125 mg Docusate Sodium (Colace) 100 mg PO TID [facility] Last Admin: 04/27/17 17:54 Dose: 100 mg Furosemide (Lasix) 40 mg IVP DAILY [facility] Last Admin: 04/27/17 10:53 Dose: 40 mg Guaifenesin (Mucinex La) 600 mg PO BID [facility] Last Admin: 04/27/17 17:54 Dose: 600 mg Home Med (Home Med) 0 unit PO BID [facility] Last Admin: 04/27/17 17:54 Dose: 1 unit Hydromorphone HCl (Dilaudid) 1.5 mg IVP Q4H PRN PRN Reason: Pain, severe (8-10) Last Admin: 04/27/17 07:08 Dose: 1.5 mg Ceftazidime/Avibactam 1.25 gm/ (Sodium Chloride) 100 mls @ 50 mls/hr IVPB Q8 [facility] Stop: 04/30/17 14:01 Last Admin: 04/27/17 15:15 Dose: 50 mls/hr Insulin Human Regular (Humulin R Low) 0 units SC ACHS JEANA PRN Reason: Protocol Last Admin: 04/27/17 17:47 Dose: Not Given Levothyroxine Sodium (Synthroid) 100 mcg PO 0600 [facility] Last Admin: 04/27/17 06:17 Dose: 100 mcg Montelukast Sodium (Singulair) 10 mg PO DAILY [facility] Last Admin: 04/27/17 10:53 Dose: 10 mg Ondansetron HCl (Zofran Inj) 4 mg IVP Q4H PRN PRN Reason: Nausea/Vomiting Last Admin: 04/23/17 18:49 Dose: 4 mg Pantoprazole Sodium (Protonix Ec Tab) 40 mg PO 1000 [facility] Last Admin: 04/27/17 10:53 Dose: 40 mg Polyethylene Glycol (Miralax) 17 gm PO BID [facility] Last Admin: 04/27/17 17:54 Dose: 17 gm Prednisone (Prednisone Tab) 10 mg PO DAILY [facility] Last Admin: 04/27/17 10:53 Dose: 10 mg Tiotropium [place] (Spiriva) 18 mcg IH DAILY [facility] Last Admin: 04/27/17 10:53 Dose: 18 mcg - Labs Labs: 04/26/17 09:50 04/26/17 09:50 PT 11.2 Seconds (9.9-11.8) 04/23/17 12:00 INR 1.04 (0.93-1.08) 04/23/17 12:00 APTT 26.1 Seconds (23.7-30.8) 04/23/17 12:00 Attending/Attestation - Attestation I have personally seen and examined this patient.: Yes I have fully participated in the care of the patient.: Yes I have reviewed all pertinent clinical information, including history, physical exam and plan: Yes
[2017-04-25 11:46] LABS: URIC ACID 6.3 mg/dL (3.5-8.5)
[2017-04-25] MEDS ORDERED: Sod Polystyrene Sulf 15 gm/60 ml Oral Susp PO ONE (12:00)
--- NOTE | 2017-04-25 14:38 | RAD ---
HISTORY: r/o PNA, CHF COMPARISON: 04/23/2017. FINDINGS: LUNGS: The lungs are clear. No focal consolidation. PLEURA: No significant pleural effusion identified, no pneumothorax apparent. CARDIOVASCULAR: There is mild cardiomegaly. Status post CABG. There is stable position of a left-sided dual lead transvenous permanent pacing device. OSSEOUS STRUCTURES: No significant abnormalities. VISUALIZED UPPER ABDOMEN: Normal. OTHER FINDINGS: None. IMPRESSION: No acute findings.
[2017-04-25] MEDS: Digoxin 125 mcg (0.125 mg) Tab PO SCH (15:03)
[2017-04-26] MEDS: Albuterol-Ipratrop 3 mg / 0.5 (3 ml) UD IH SCH ×4 (02:03→20:25)
[2017-04-26 05:44] LABS: ARTERIAL BLOOD GAS HCO3 33.5 mmol/L (21-28); ARTERIAL BLOOD GAS HEMOGLOBIN 10.5 g/dL (11.7-17.4); ARTERIAL BLOOD GAS O2 CAPACITY 14.5 mL/dl (16-24); ARTERIAL BLOOD GAS O2 CONTENT 13.9 ML/dl (15-23); ARTERIAL BLOOD GAS O2 SAT 95.8 % (95-98); ARTERIAL BLOOD GAS PCO2 44 mm/Hg (35-45); ARTERIAL BLOOD GAS PH 7.49 (7.35-7.45); ARTERIAL BLOOD GAS TCO2 34.9 mmol.L (22-28)
[2017-04-26] MEDS: Levothyroxine 100 MCG TAB PO SCH (05:59)
[2017-04-26] MEDS: Budesonide 0.5 mg/2 ml Inhal Susp UD IH SCH ×2 (07:29→20:25)
[2017-04-26] MEDS ORDERED: HYDROmorphone 2 mg/ml ISec IVP PRN (08:15)
--- NOTE | 2017-04-26 08:19 | CP.PCM.PN ---
Subjective - Date & Time of Evaluation Date of Evaluation: 04/26/17 Time of Evaluation: 07:40 - Subjective Subjective: Patient is seen this morning. There is difficulty getting blood from his veins. Objective - Vital Signs/Intake and Output Vital Signs (last 24 hours): Temp Pulse Resp BP Pulse Ox 97.8 F 60 20 155/78 H 96 04/25/17 11:46 04/25/17 11:46 04/25/17 11:46 04/25/17 11:46 04/25/17 09:00 Intake and Output: 04/26/17 04/26/17 06:59 18:59 Intake Total 120 Output Total 600 Balance -480 - Medications Medications: Current Medications Albuterol/Ipratropium (Duoneb 3 Mg/0.5 Mg (3 Ml) Ud) 3 ml IH [id number] [facility] Last Admin: 04/26/17 07:29 Dose: 3 ml Amiodarone HCl (Cordarone) 200 mg PO DAILY [facility] Last Admin: 04/25/17 10:09 Dose: 200 mg Atorvastatin Calcium (Lipitor) 10 mg PO DIN [facility] Last Admin: 04/25/17 17:35 Dose: 10 mg Budesonide (Pulmicort Respules) 0.5 mg IH BIDRESP [facility] Last Admin: 04/26/17 07:29 Dose: 0.5 mg Calcium Acetate (Phoslo) 667 mg PO DAILY [facility] Last Admin: 04/25/17 10:07 Dose: 667 mg Cholecalciferol (Vitamin D) 1,000 iu PO DAILY [facility] Digoxin (Lanoxin) 0.125 mg PO 1400 [facility] Last Admin: 04/25/17 15:03 Dose: 0.125 mg Docusate Sodium (Colace) 100 mg PO TID [facility] Last Admin: 04/25/17 17:35 Dose: 100 mg Furosemide (Lasix) 40 mg IVP DAILY [facility] Last Admin: 04/25/17 10:12 Dose: 40 mg Home Med (Home Med) 0 unit PO BID [facility] Last Admin: 04/25/17 17:43 Dose: Not Given Hydromorphone HCl (Dilaudid) 3 mg IVP Q3H PRN PRN Reason: Pain, moderate (4-7) Last Admin: 04/25/17 13:52 Dose: 3 mg Ceftazidime/Avibactam 1.25 gm/ (Sodium Chloride) 100 mls @ 50 mls/hr IVPB Q8 [facility] Stop: 04/30/17 14:01 Last Admin: 04/26/17 05:58 Dose: 50 mls/hr Insulin Human Regular (Humulin R Low) 0 units SC ACHS JEANA PRN Reason: Protocol Last Admin: 04/25/17 22:55 Dose: Not Given Levothyroxine Sodium (Synthroid) 100 mcg PO 0600 [facility] Last Admin: 04/26/17 05:59 Dose: 100 mcg Montelukast Sodium (Singulair) 10 mg PO DAILY [facility] Last Admin: 04/25/17 10:10 Dose: 10 mg Ondansetron HCl (Zofran Inj) 4 mg IVP Q4H PRN PRN Reason: Nausea/Vomiting Last Admin: 04/23/17 18:49 Dose: 4 mg Pantoprazole Sodium (Protonix Ec Tab) 40 mg PO 1000 [facility] Last Admin: 04/25/17 10:09 Dose: 40 mg Polyethylene Glycol (Miralax) 17 gm PO DAILY [facility] Last Admin: 04/25/17 10:11 Dose: 17 gm Prednisone (Prednisone Tab) 10 mg PO DAILY [facility] Last Admin: 04/25/17 10:08 Dose: 10 mg Tiotropium [place] (Spiriva) 18 mcg IH DAILY [facility] Last Admin: 04/25/17 10:13 Dose: 18 mcg - Labs Labs: 04/25/17 07:00 04/25/17 11:30 PT 11.2 Seconds (9.9-11.8) 04/23/17 12:00 INR 1.04 (0.93-1.08) 04/23/17 12:00 APTT 26.1 Seconds (23.7-30.8) 04/23/17 12:00 - Constitutional Appears: No Acute Distress - Head Exam Head Exam: ATRAUMATIC, NORMOCEPHALIC - Respiratory Exam Respiratory Exam: Clear to Ausculation Bilateral, NORMAL BREATHING PATTERN - Cardiovascular Exam Cardiovascular Exam: +S1, +S2 - GI/Abdominal Exam GI & Abdominal Exam: Soft, Tenderness, Normal Bowel Sounds - Neurological Exam Neurological Exam: Alert, Awake, Oriented x3 Assessment and Plan - Assessment and Plan (Free Text) Assessment: ESBL urinary tract infection Systemic Inflammatory Response Syndrome Abdominal pain Chronic systolic and diastolic heart failure Chronic Kidney Disease Hyponatremia Chronic Obstructive Pulmonary Disease Plan: Urine culture growing ESBL. continue antibiotics as per infectious disease continue Morphine as needed for pain. Today's labs are pending. Yesterday's sodium was 130. Appreciate nephrology consult continue respiratory treatments and prednisone for chronic obstructive pulmonary disease consult Dr. Susana Allen for port placement
[2017-04-26] MEDS: Insulin Human NPH/Reg 70/30 Vial(3 ml) SC SCH ×3 (08:28→17:41)
[2017-04-26] MEDS: Insulin Reg-LOW-Coverage SC SCH ×4 (08:33→17:41)
[2017-04-26] MEDS: Tiotropium 18 mcg Cap For Inhalation IH SCH (09:06)
[2017-04-26] MEDS: POLYETHYLENE GLYCOL 3350 17 GM/Dose PACKET PO SCH ×3 (09:07→17:42)
[2017-04-26] MEDS: Pantoprazole 40 mg EC Tab PO SCH (09:10)
[2017-04-26] MEDS: guaiFENesin 600 mg ER Tab PO SCH ×2 (10:18→17:42)
[2017-04-26 10:19] LABS: BASO # 0.01 K/mm3 (0.0-2.0); BASO % 0.1 % (0.0-3.0); EOS # 0.2 (0.0-0.7); EOS % 1.7 % (1.5-5.0); GRAN # 8.57 (1.4-6.5); GRAN % 77.7 % (50.0-68.0); HEMOGLOBIN 10.2 gm/dL (14.0-18.0); LYMPH % 9.2 % (22.0-35.0); MEAN CELL VOLUME 87.4 fL (80.0-105.0); MEAN CORPUSCULAR HEMOGLOBIN 26.8 pg (25.0-35.0); MEAN CORPUSCULAR HGB CONC 30.6 g/dl (31.0-37.0); MEAN PLATELET VOLUME 9.9 fl (7.0-11.0); MONO # 1.3 (0.1-0.6); MONO % 11.3 % (1.0-6.0); PLATELET COUNT 207 10^3/uL (120.0-450.0); RBC 3.81 10^6/uL (3.5-6.1); RED CELL DISTRIBUTION WIDTH 14.5 % (11.5-14.5)
--- NOTE | 2017-04-26 10:26 | CP.PCM.PN ---
<Claudia Armendariz - Last Filed: 04/26/17 10:25> Subjective - Date & Time of Evaluation Date of Evaluation: 04/26/17 Time of Evaluation: 09:00 - Subjective Subjective: S&E at bedside, no BM yesterday. Has abdominal pain, tolerating oral intake, no N/N, sob or chest pain. No acute overnight events. Objective - Vital Signs/Intake and Output Vital Signs (last 24 hours): Temp Pulse Resp BP Pulse Ox 97.8 F 59 L 20 149/68 96 04/25/17 11:46 04/26/17 09:06 04/25/17 11:46 04/26/17 09:07 04/25/17 09:00 Intake and Output: 04/26/17 04/26/17 06:59 18:59 Intake Total 120 Output Total 600 Balance -480 - Medications Medications: Current Medications Albuterol/Ipratropium (Duoneb 3 Mg/0.5 Mg (3 Ml) Ud) 3 ml IH [id number] [facility] Last Admin: 04/26/17 07:29 Dose: 3 ml Amiodarone HCl (Cordarone) 200 mg PO DAILY [facility] Last Admin: 04/26/17 09:06 Dose: 200 mg Atorvastatin Calcium (Lipitor) 10 mg PO DIN [facility] Last Admin: 04/25/17 17:35 Dose: 10 mg Budesonide (Pulmicort Respules) 0.5 mg IH BIDRESP [facility] Last Admin: 04/26/17 07:29 Dose: 0.5 mg Calcium Acetate (Phoslo) 667 mg PO DAILY [facility] Last Admin: 04/26/17 09:07 Dose: 667 mg Cholecalciferol (Vitamin D) 1,000 iu PO DAILY [facility] Last Admin: 04/26/17 09:07 Dose: 1,000 iu Digoxin (Lanoxin) 0.125 mg PO 1400 [facility] Last Admin: 04/25/17 15:03 Dose: 0.125 mg Docusate Sodium (Colace) 100 mg PO TID [facility] Last Admin: 04/26/17 09:05 Dose: 100 mg Furosemide (Lasix) 40 mg IVP DAILY [facility] Last Admin: 04/26/17 09:07 Dose: 40 mg Guaifenesin (Mucinex La) 600 mg PO BID [facility] Home Med (Home Med) 0 unit PO BID [facility] Last Admin: 04/26/17 09:08 Dose: 1 unit Hydromorphone HCl (Dilaudid) 2 mg IVP Q4H PRN PRN Reason: Pain, severe (8-10) Ceftazidime/Avibactam 1.25 gm/ (Sodium Chloride) 100 mls @ 50 mls/hr IVPB Q8 [facility] Stop: 04/30/17 14:01 Last Admin: 04/26/17 05:58 Dose: 50 mls/hr Insulin Human Regular (Humulin R Low) 0 units SC ACHS [facility] PRN Reason: Protocol Last Admin: 04/26/17 08:33 Dose: Not Given Levothyroxine Sodium (Synthroid) 100 mcg PO 0600 [facility] Last Admin: 04/26/17 05:59 Dose: 100 mcg Montelukast Sodium (Singulair) 10 mg PO DAILY [facility] Last Admin: 04/26/17 09:04 Dose: 10 mg Ondansetron HCl (Zofran Inj) 4 mg IVP Q4H PRN PRN Reason: Nausea/Vomiting Last Admin: 04/23/17 18:49 Dose: 4 mg Pantoprazole Sodium (Protonix Ec Tab) 40 mg PO 1000 [facility] Last Admin: 04/26/17 09:10 Dose: 40 mg Polyethylene Glycol (Miralax) 17 gm PO BID [facility] Prednisone (Prednisone Tab) 10 mg PO DAILY [facility] Last Admin: 04/26/17 09:06 Dose: 10 mg Tiotropium [place] (Spiriva) 18 mcg IH DAILY [facility] Last Admin: 04/26/17 09:06 Dose: 18 mcg - Labs Labs: 04/25/17 07:00 04/25/17 11:30 PT 11.2 Seconds (9.9-11.8) 04/23/17 12:00 INR 1.04 (0.93-1.08) 04/23/17 12:00 APTT 26.1 Seconds (23.7-30.8) 04/23/17 12:00 - Constitutional Appears: No Acute Distress - Head Exam Head Exam: NORMOCEPHALIC - Eye Exam Eye Exam: Normal appearance. absent: Scleral icterus - ENT Exam ENT Exam: Mucous Membranes Moist - Neck Exam Neck Exam: Normal Inspection - Respiratory Exam Respiratory Exam: NORMAL BREATHING PATTERN. absent: Respiratory Distress - Cardiovascular Exam Cardiovascular Exam: +S1, +S2 - GI/Abdominal Exam GI & Abdominal Exam: Soft, Tenderness, Normal Bowel Sounds. absent: Guarding, Organomegaly, Rebound - Extremities Exam Extremities Exam: absent: Calf Tenderness, Pedal Edema (mild) - Neurological Exam Neurological Exam: Alert, Awake, Oriented x3 - Skin Skin Exam: Dry, Warm Assessment and Plan - Assessment and Plan (Free Text) Assessment: ASSESSMENT: Abdominal Pain, s/p ct scan GB sludge, (+) lymphadenopathy as before H/O Bladder cancer Hematuria Resolved Hyperkalemia UTI, ESBL Chronic constipation CHF COPD CKD CAD w/ stents PLAN: continue Colace increase Miralax to BID, hold for stool>2/day on IV antibiotics on Lasix continue PPI on Prednisone monitor electrolytes and h/h off Plavix and ASA diet as tolerated Seen and discussed w/ Dr. Bal. <Fredi Bal V - Last Filed: 04/26/17 22:14> Objective - Vital Signs/Intake and Output Vital Signs (last 24 hours): Temp Pulse Resp BP Pulse Ox 97.8 F 59 L 20 149/68 96 04/25/17 11:46 04/26/17 09:06 04/26/17 07:30 04/26/17 09:07 04/26/17 07:30 Intake and Output: 04/26/17 04/27/17 18:59 06:59 Intake Total 900 Output Total 400 Balance 500 - Medications Medications: Current Medications Albuterol/Ipratropium (Duoneb 3 Mg/0.5 Mg (3 Ml) Ud) 3 ml IH [id number] [facility] Last Admin: 04/26/17 20:25 Dose: 3 ml Amiodarone HCl (Cordarone) 200 mg PO DAILY [facility] Last Admin: 04/26/17 09:06 Dose: 200 mg Atorvastatin Calcium (Lipitor) 10 mg PO DIN [facility] Last Admin: 04/26/17 17:45 Dose: 10 mg Budesonide (Pulmicort Respules) 0.5 mg IH BIDRESP [facility] Last Admin: 04/26/17 20:25 Dose: 0.5 mg Calcium Acetate (Phoslo) 667 mg PO DAILY [facility] Last Admin: 04/26/17 09:07 Dose: 667 mg Cholecalciferol (Vitamin D) 1,000 iu PO DAILY [facility] Last Admin: 04/26/17 09:07 Dose: 1,000 iu Digoxin (Lanoxin) 0.125 mg PO 1400 [facility] Last Admin: 04/26/17 14:24 Dose: 0.125 mg Docusate Sodium (Colace) 100 mg PO TID [facility] Last Admin: 04/26/17 17:41 Dose: 100 mg Furosemide (Lasix) 40 mg IVP DAILY [facility] Last Admin: 04/26/17 09:07 Dose: 40 mg Guaifenesin (Mucinex La) 600 mg PO BID [facility] Last Admin: 04/26/17 17:42 Dose: 600 mg Home Med (Home Med) 0 unit PO BID [facility] Last Admin: 04/26/17 18:00 Dose: 1 unit Hydromorphone HCl (Dilaudid) 1.5 mg IVP Q4H PRN PRN Reason: Pain, severe (8-10) Ceftazidime/Avibactam 1.25 gm/ (Sodium Chloride) 100 mls @ 50 mls/hr IVPB Q8 [facility] Stop: 04/30/17 14:01 Last Admin: 04/26/17 14:23 Dose: 50 mls/hr Insulin Human Regular (Humulin R Low) 0 units SC ACHS [facility] PRN Reason: Protocol Last Admin: 04/26/17 17:41 Dose: Not Given Levothyroxine Sodium (Synthroid) 100 mcg PO 0600 [facility] Last Admin: 04/26/17 05:59 Dose: 100 mcg Montelukast Sodium (Singulair) 10 mg PO DAILY [facility] Last Admin: 04/26/17 09:04 Dose: 10 mg Ondansetron HCl (Zofran Inj) 4 mg IVP Q4H PRN PRN Reason: Nausea/Vomiting Last Admin: 04/23/17 18:49 Dose: 4 mg Pantoprazole Sodium (Protonix Ec Tab) 40 mg PO 1000 [facility] Last Admin: 04/26/17 09:10 Dose: 40 mg Polyethylene Glycol (Miralax) 17 gm PO BID [facility] Last Admin: 04/26/17 17:42 Dose: 17 gm Prednisone (Prednisone Tab) 10 mg PO DAILY [facility] Last Admin: 04/26/17 09:06 Dose: 10 mg Tiotropium [place] (Spiriva) 18 mcg IH DAILY [facility] Last Admin: 04/26/17 09:06 Dose: 18 mcg - Labs Labs: 04/26/17 09:50 04/26/17 09:50 PT 11.2 Seconds (9.9-11.8) 04/23/17 12:00 INR 1.04 (0.93-1.08) 04/23/17 12:00 APTT 26.1 Seconds (23.7-30.8) 04/23/17 12:00 Attending/Attestation - Attestation I have personally seen and examined this patient.: Yes I have fully participated in the care of the patient.: Yes I have reviewed all pertinent clinical information, including history, physical exam and plan: Yes Notes (Text): 04/26/17 21:55 this patient was seen and evaluated earlier feels slightly better and still has some discomfort in her abdomen able to tolerate the by mouth. Patient is been on MiraLAX now had 1 small bowel movement.
[2017-04-26 10:40] LABS: BLOOD UREA NITROGEN 32 mg/dL (7-21); CALCIUM 8.4 mg/dL (8.4-10.5); GFR AFRICAN-AMERICAN > 60; GFR NON-AFRICAN AMERICAN 57; MAGNESIUM 2.4 mg/dL (1.7-2.2)
--- NOTE | 2017-04-26 11:18 | CP.PCM.PN ---
Subjective - Date & Time of Evaluation Date of Evaluation: 04/26/17 Time of Evaluation: 08:05 - Subjective Subjective: Patient is still having some abdominal pain, no fevers overnight, feels a little better. Objective - Vital Signs/Intake and Output Vital Signs (last 24 hours): Temp Pulse Resp BP Pulse Ox 97.8 F 60 20 155/78 H 96 04/25/17 11:46 04/25/17 11:46 04/25/17 11:46 04/25/17 11:46 04/25/17 09:00 Intake and Output: 04/26/17 04/26/17 06:59 18:59 Intake Total 120 Output Total 600 Balance -480 - Medications Medications: Current Medications Albuterol/Ipratropium (Duoneb 3 Mg/0.5 Mg (3 Ml) Ud) 3 ml IH [id number] [facility] Last Admin: 04/26/17 07:29 Dose: 3 ml Amiodarone HCl (Cordarone) 200 mg PO DAILY [facility] Last Admin: 04/25/17 10:09 Dose: 200 mg Atorvastatin Calcium (Lipitor) 10 mg PO DIN [facility] Last Admin: 04/25/17 17:35 Dose: 10 mg Budesonide (Pulmicort Respules) 0.5 mg IH BIDRESP [facility] Last Admin: 04/26/17 07:29 Dose: 0.5 mg Calcium Acetate (Phoslo) 667 mg PO DAILY [facility] Last Admin: 04/25/17 10:07 Dose: 667 mg Cholecalciferol (Vitamin D) 1,000 iu PO DAILY [facility] Digoxin (Lanoxin) 0.125 mg PO 1400 [facility] Last Admin: 04/25/17 15:03 Dose: 0.125 mg Docusate Sodium (Colace) 100 mg PO TID [facility] Last Admin: 04/25/17 17:35 Dose: 100 mg Furosemide (Lasix) 40 mg IVP DAILY [facility] Last Admin: 04/25/17 10:12 Dose: 40 mg Home Med (Home Med) 0 unit PO BID [facility] Last Admin: 04/25/17 17:43 Dose: Not Given Hydromorphone HCl (Dilaudid) 2 mg IVP Q4H PRN PRN Reason: Pain, severe (8-10) Ceftazidime/Avibactam 1.25 gm/ (Sodium Chloride) 100 mls @ 50 mls/hr IVPB Q8 [facility] Stop: 04/30/17 14:01 Last Admin: 04/26/17 05:58 Dose: 50 mls/hr Insulin Human Regular (Humulin R Low) 0 units SC ACHS [facility] PRN Reason: Protocol Last Admin: 04/26/17 08:33 Dose: Not Given Levothyroxine Sodium (Synthroid) 100 mcg PO 0600 [facility] Last Admin: 04/26/17 05:59 Dose: 100 mcg Montelukast Sodium (Singulair) 10 mg PO DAILY [facility] Last Admin: 04/25/17 10:10 Dose: 10 mg Ondansetron HCl (Zofran Inj) 4 mg IVP Q4H PRN PRN Reason: Nausea/Vomiting Last Admin: 04/23/17 18:49 Dose: 4 mg Pantoprazole Sodium (Protonix Ec Tab) 40 mg PO 1000 [facility] Last Admin: 04/25/17 10:09 Dose: 40 mg Polyethylene Glycol (Miralax) 17 gm PO DAILY [facility] Last Admin: 04/25/17 10:11 Dose: 17 gm Prednisone (Prednisone Tab) 10 mg PO DAILY [facility] Last Admin: 04/25/17 10:08 Dose: 10 mg Tiotropium [place] (Spiriva) 18 mcg IH DAILY [facility] Last Admin: 04/25/17 10:13 Dose: 18 mcg - Labs Labs: 04/25/17 07:00 04/25/17 11:30 PT 11.2 Seconds (9.9-11.8) 04/23/17 12:00 INR 1.04 (0.93-1.08) 04/23/17 12:00 APTT 26.1 Seconds (23.7-30.8) 04/23/17 12:00 - Constitutional Appears: Non-toxic, No Acute Distress - Head Exam Head Exam: NORMAL INSPECTION - Neck Exam Neck Exam: absent: Meningismus - Respiratory Exam Respiratory Exam: Decreased Breath Sounds - Cardiovascular Exam Cardiovascular Exam: +S1, +S2 - GI/Abdominal Exam GI & Abdominal Exam: Soft. absent: Tenderness Assessment and Plan - Assessment and Plan (Free Text) Plan: Assessment Consider lower urinary tract infection in a patient with indwelling Avendano catheter growing Carbapenem-resistant Klebsiella history of right foot necrotic ulcer with surrounding cellulitis UTI with Enterococcus and Klebsiella chronic renal failure history of DVT DM Prostate CA history of Enterococcus UTI atrial fibrillation S/P pacemaker and ICD placement Plan continue Avycaz day 2 and will repeat urine cx today; reviewed CT scan of the abdomen and pelvis which showed some mural thickening of the urinary bladder will continue to follow clinically
[2017-04-26] MEDS ORDERED: HYDROmorphone 1 mg/ml ISec IVP PRN (12:54)
--- NOTE | 2017-04-26 13:23 | CP.PCM.PN ---
<Devora Alvarado - Last Filed: 04/26/17 13:33> Subjective - Date & Time of Evaluation Date of Evaluation: 04/26/17 Time of Evaluation: 13:20 - Subjective Subjective: PGY-[address] Carballo urine in schroeder remains clear yellow. 5/10 abdominal pain. worse by movement to 10/10 (+) cough, no phlegm. Vomit once overnight. Missed 1 dose of tranexamic acid due to vomiting Objective - Vital Signs/Intake and Output Vital Signs (last 24 hours): Temp Pulse Resp BP Pulse Ox 97.8 F 59 L 20 149/68 96 04/25/17 11:46 04/26/17 09:06 04/26/17 07:30 04/26/17 09:07 04/26/17 07:30 Intake and Output: 04/26/17 04/26/17 06:59 18:59 Intake Total 120 Output Total 600 Balance -480 - Medications Medications: Current Medications Albuterol/Ipratropium (Duoneb 3 Mg/0.5 Mg (3 Ml) Ud) 3 ml IH [id number] [facility] Last Admin: 04/26/17 13:07 Dose: 3 ml Amiodarone HCl (Cordarone) 200 mg PO DAILY [facility] Last Admin: 04/26/17 09:06 Dose: 200 mg Atorvastatin Calcium (Lipitor) 10 mg PO DIN [facility] Last Admin: 04/25/17 17:35 Dose: 10 mg Budesonide (Pulmicort Respules) 0.5 mg IH BIDRESP [facility] Last Admin: 04/26/17 07:29 Dose: 0.5 mg Calcium Acetate (Phoslo) 667 mg PO DAILY [facility] Last Admin: 04/26/17 09:07 Dose: 667 mg Cholecalciferol (Vitamin D) 1,000 iu PO DAILY [facility] Last Admin: 04/26/17 09:07 Dose: 1,000 iu Digoxin (Lanoxin) 0.125 mg PO 1400 [facility] Last Admin: 04/25/17 15:03 Dose: 0.125 mg Docusate Sodium (Colace) 100 mg PO TID [facility] Last Admin: 04/26/17 09:05 Dose: 100 mg Furosemide (Lasix) 40 mg IVP DAILY [facility] Last Admin: 04/26/17 09:07 Dose: 40 mg Guaifenesin (Mucinex La) 600 mg PO BID [facility] Last Admin: 04/26/17 10:18 Dose: 600 mg Home Med (Home Med) 0 unit PO BID [facility] Last Admin: 04/26/17 09:08 Dose: 1 unit Hydromorphone HCl (Dilaudid) 1 mg IVP Q4H PRN PRN Reason: Pain, severe (8-10) Ceftazidime/Avibactam 1.25 gm/ (Sodium Chloride) 100 mls @ 50 mls/hr IVPB Q8 [facility] Stop: 04/30/17 14:01 Last Admin: 04/26/17 05:58 Dose: 50 mls/hr Insulin Human Regular (Humulin R Low) 0 units SC ACHS [facility] PRN Reason: Protocol Last Admin: 04/26/17 12:01 Dose: Not Given Levothyroxine Sodium (Synthroid) 100 mcg PO 0600 [facility] Last Admin: 04/26/17 05:59 Dose: 100 mcg Montelukast Sodium (Singulair) 10 mg PO DAILY [facility] Last Admin: 04/26/17 09:04 Dose: 10 mg Ondansetron HCl (Zofran Inj) 4 mg IVP Q4H PRN PRN Reason: Nausea/Vomiting Last Admin: 04/23/17 18:49 Dose: 4 mg Pantoprazole Sodium (Protonix Ec Tab) 40 mg PO 1000 [facility] Last Admin: 04/26/17 09:10 Dose: 40 mg Polyethylene Glycol (Miralax) 17 gm PO BID [facility] Last Admin: 04/26/17 10:19 Dose: Not Given Prednisone (Prednisone Tab) 10 mg PO DAILY [facility] Last Admin: 04/26/17 09:06 Dose: 10 mg Tiotropium [place] (Spiriva) 18 mcg IH DAILY [facility] Last Admin: 04/26/17 09:06 Dose: 18 mcg - Labs Labs: 04/26/17 09:50 04/26/17 09:50 PT 11.2 Seconds (9.9-11.8) 04/23/17 12:00 INR 1.04 (0.93-1.08) 04/23/17 12:00 APTT 26.1 Seconds (23.7-30.8) 04/23/17 12:00 - Constitutional Appears: No Acute Distress - Head Exam Head Exam: ATRAUMATIC, NORMOCEPHALIC - Eye Exam Eye Exam: EOMI, Normal appearance, PERRL. absent: Scleral icterus Pupil Exam: NORMAL ACCOMODATION - ENT Exam ENT Exam: Mucous Membranes Moist - Neck Exam Neck Exam: absent: Meningismus - Respiratory Exam Respiratory Exam: Decreased Breath Sounds (bibasilar). absent: Rales, Rhonchi, Wheezes - Cardiovascular Exam Cardiovascular Exam: REGULAR RHYTHM, +S1, +S2 - GI/Abdominal Exam GI & Abdominal Exam: Soft, Normal Bowel Sounds. absent: Guarding, Rigid, Tenderness - Extremities Exam Extremities Exam: Normal Capillary Refill. 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 Pt had hemauturia (hx icd, quadriple bypass) , improving. Transamininitis with abdominal pain persists Abdominal pain Transaminitis Constipation - likely referred pain from origin - s/p lactulose. Had BM 2 days ago. - CT negative of acute GI event. (+) GB sludge, (+) lymphadenopathy as before - continue Colace, increase Miralax to BID, hold for stool>2/day Gross Hemautria - resolved Due to prostate ca - Hb stable 10.2, plt 207, inr 1.04 - yellow urine - hold ASA and Plavix. 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 Carballo <Rogelio Carballo P - Last Filed: 04/27/17 19:54> Objective - Vital Signs/Intake and Output Vital Signs (last 24 hours): Temp Pulse Resp BP Pulse Ox 97.7 F 70 19 145/65 99 04/27/17 17:55 04/27/17 17:55 04/27/17 17:55 04/27/17 17:55 04/27/17 17:55 Intake and Output: 04/27/17 04/28/17 18:59 06:59 Intake Total 720 Balance 720 - Medications Medications: Current Medications Albuterol/Ipratropium (Duoneb 3 Mg/0.5 Mg (3 Ml) Ud) 3 ml IH [id number] [facility] Last Admin: 04/27/17 13:11 Dose: 3 ml Amiodarone HCl (Cordarone) 200 mg PO DAILY [facility] Last Admin: 04/27/17 10:53 Dose: 200 mg Atorvastatin Calcium (Lipitor) 10 mg PO DIN [facility] Last Admin: 04/27/17 17:54 Dose: 10 mg Budesonide (Pulmicort Respules) 0.5 mg IH BIDRESP [facility] Last Admin: 04/27/17 07:28 Dose: 0.5 mg Calcium Acetate (Phoslo) 667 mg PO DAILY [facility] Last Admin: 04/27/17 10:53 Dose: 667 mg Cholecalciferol (Vitamin D) 1,000 iu PO DAILY [facility] Last Admin: 04/27/17 10:53 Dose: 1,000 iu Digoxin (Lanoxin) 0.125 mg PO 1400 [facility] Last Admin: 04/27/17 15:15 Dose: 0.125 mg Docusate Sodium (Colace) 100 mg PO TID [facility] Last Admin: 04/27/17 17:54 Dose: 100 mg Furosemide (Lasix) 40 mg IVP DAILY [facility] Last Admin: 04/27/17 10:53 Dose: 40 mg Guaifenesin (Mucinex La) 600 mg PO BID [facility] Last Admin: 04/27/17 17:54 Dose: 600 mg Home Med (Home Med) 0 unit PO BID [facility] Last Admin: 04/27/17 17:54 Dose: 1 unit Hydromorphone HCl (Dilaudid) 1.5 mg IVP Q4H PRN PRN Reason: Pain, severe (8-10) Last Admin: 04/27/17 07:08 Dose: 1.5 mg Ceftazidime/Avibactam 1.25 gm/ (Sodium Chloride) 100 mls @ 50 mls/hr IVPB Q8 [facility] Stop: 04/30/17 14:01 Last Admin: 04/27/17 15:15 Dose: 50 mls/hr Insulin Human Regular (Humulin R Low) 0 units SC ACHS [facility] PRN Reason: Protocol Last Admin: 04/27/17 17:47 Dose: Not Given Levothyroxine Sodium (Synthroid) 100 mcg PO 0600 [facility] Last Admin: 04/27/17 06:17 Dose: 100 mcg Montelukast Sodium (Singulair) 10 mg PO DAILY [facility] Last Admin: 04/27/17 10:53 Dose: 10 mg Ondansetron HCl (Zofran Inj) 4 mg IVP Q4H PRN PRN Reason: Nausea/Vomiting Last Admin: 04/23/17 18:49 Dose: 4 mg Pantoprazole Sodium (Protonix Ec Tab) 40 mg PO 1000 [facility] Last Admin: 04/27/17 10:53 Dose: 40 mg Polyethylene Glycol (Miralax) 17 gm PO BID [facility] Last Admin: 04/27/17 17:54 Dose: 17 gm Prednisone (Prednisone Tab) 10 mg PO DAILY [facility] Last Admin: 04/27/17 10:53 Dose: 10 mg Tiotropium [place] (Spiriva) 18 mcg IH DAILY [facility] Last Admin: 04/27/17 10:53 Dose: 18 mcg - Labs Labs: 04/26/17 09:50 04/26/17 09:50 PT 11.2 Seconds (9.9-11.8) 04/23/17 12:00 INR 1.04 (0.93-1.08) 04/23/17 12:00 APTT 26.1 Seconds (23.7-30.8) 04/23/17 12:00 Attending/Attestation - Attestation I have personally seen and examined this patient.: Yes I have fully participated in the care of the patient.: Yes I have reviewed all pertinent clinical information, including history, physical exam and plan: Yes
--- NOTE | 2017-04-26 13:24 | CP.PCM.PN ---
Subjective - Date & Time of Evaluation Date of Evaluation: 04/26/17 Time of Evaluation: 13:10 - Subjective Subjective: Sitting in bed, comfortable Objective - Vital Signs/Intake and Output Vital Signs (last 24 hours): Temp Pulse Resp BP Pulse Ox 97.8 F 59 L 20 149/68 96 04/25/17 11:46 04/26/17 09:06 04/26/17 07:30 04/26/17 09:07 04/26/17 07:30 Intake and Output: 04/26/17 04/26/17 06:59 18:59 Intake Total 120 Output Total 600 Balance -480 - Medications Medications: Current Medications Albuterol/Ipratropium (Duoneb 3 Mg/0.5 Mg (3 Ml) Ud) 3 ml IH [id number] [facility] Last Admin: 04/26/17 13:07 Dose: 3 ml Amiodarone HCl (Cordarone) 200 mg PO DAILY [facility] Last Admin: 04/26/17 09:06 Dose: 200 mg Atorvastatin Calcium (Lipitor) 10 mg PO DIN [facility] Last Admin: 04/25/17 17:35 Dose: 10 mg Budesonide (Pulmicort Respules) 0.5 mg IH BIDRESP [facility] Last Admin: 04/26/17 07:29 Dose: 0.5 mg Calcium Acetate (Phoslo) 667 mg PO DAILY [facility] Last Admin: 04/26/17 09:07 Dose: 667 mg Cholecalciferol (Vitamin D) 1,000 iu PO DAILY [facility] Last Admin: 04/26/17 09:07 Dose: 1,000 iu Digoxin (Lanoxin) 0.125 mg PO 1400 [facility] Last Admin: 04/25/17 15:03 Dose: 0.125 mg Docusate Sodium (Colace) 100 mg PO TID [facility] Last Admin: 04/26/17 09:05 Dose: 100 mg Furosemide (Lasix) 40 mg IVP DAILY [facility] Last Admin: 04/26/17 09:07 Dose: 40 mg Guaifenesin (Mucinex La) 600 mg PO BID [facility] Last Admin: 04/26/17 10:18 Dose: 600 mg Home Med (Home Med) 0 unit PO BID [facility] Last Admin: 04/26/17 09:08 Dose: 1 unit Hydromorphone HCl (Dilaudid) 1 mg IVP Q4H PRN PRN Reason: Pain, severe (8-10) Ceftazidime/Avibactam 1.25 gm/ (Sodium Chloride) 100 mls @ 50 mls/hr IVPB Q8 [facility] Stop: 04/30/17 14:01 Last Admin: 04/26/17 05:58 Dose: 50 mls/hr Insulin Human Regular (Humulin R Low) 0 units SC ACHS [facility] PRN Reason: Protocol Last Admin: 04/26/17 12:01 Dose: Not Given Levothyroxine Sodium (Synthroid) 100 mcg PO 0600 [facility] Last Admin: 04/26/17 05:59 Dose: 100 mcg Montelukast Sodium (Singulair) 10 mg PO DAILY [facility] Last Admin: 04/26/17 09:04 Dose: 10 mg Ondansetron HCl (Zofran Inj) 4 mg IVP Q4H PRN PRN Reason: Nausea/Vomiting Last Admin: 04/23/17 18:49 Dose: 4 mg Pantoprazole Sodium (Protonix Ec Tab) 40 mg PO 1000 [facility] Last Admin: 04/26/17 09:10 Dose: 40 mg Polyethylene Glycol (Miralax) 17 gm PO BID [facility] Last Admin: 04/26/17 10:19 Dose: Not Given Prednisone (Prednisone Tab) 10 mg PO DAILY [facility] Last Admin: 04/26/17 09:06 Dose: 10 mg Tiotropium [place] (Spiriva) 18 mcg IH DAILY [facility] Last Admin: 04/26/17 09:06 Dose: 18 mcg - Labs Labs: 04/26/17 09:50 04/26/17 09:50 PT 11.2 Seconds (9.9-11.8) 04/23/17 12:00 INR 1.04 (0.93-1.08) 04/23/17 12:00 APTT 26.1 Seconds (23.7-30.8) 04/23/17 12:00 - Constitutional Appears: Younger Than Stated Age - Head Exam Head Exam: NORMAL INSPECTION - Eye Exam Eye Exam: Normal appearance, PERRL - ENT Exam ENT Exam: Mucous Membranes Moist - Respiratory Exam Respiratory Exam: Rhonchi, NORMAL BREATHING PATTERN - Cardiovascular Exam Cardiovascular Exam: Irregular Rhythm, REGULAR RHYTHM, +S1, +S2, Murmur - GI/Abdominal Exam GI & Abdominal Exam: Distended, Soft, Normal Bowel Sounds - Extremities Exam Extremities Exam: Normal Inspection, Pedal Edema Assessment and Plan - Assessment and Plan (Free Text) Assessment: 87 yr old male with multiple medical problems admitted with lower abdominal pain , hematuria, SOB Found to have severe constipation, resistant Klebsiella UTI Mild ARGENIS superimposed on CKD 3/4 now with Hyponatremia- mild- 2/2 CHF Hyperkalemia- mild Appears euvolemic, Urine Na 85, UOsm, S Uric acid 6.3 Monitor K, no intervention needed 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
[2017-04-26] MEDS: Digoxin 125 mcg (0.125 mg) Tab PO SCH (14:24)
[2017-04-26] MEDS ORDERED: HYDROmorphone 1 mg/ml ISec IVP STA (14:38)
--- NOTE | 2017-04-26 20:19 | CP.PCM.PN ---
Subjective - Date & Time of Evaluation Date of Evaluation: 04/26/17 Time of Evaluation: 10:00 - Subjective Subjective: Patgient sitting in Chair. No Chest Pain,SOB, Palpitation. Abdominal Pain. Objective - Vital Signs/Intake and Output Vital Signs (last 24 hours): Temp Pulse Resp BP Pulse Ox 97.8 F 59 L 20 149/68 96 04/25/17 11:46 04/26/17 09:06 04/26/17 07:30 04/26/17 09:07 04/26/17 07:30 Intake and Output: 04/26/17 04/27/17 18:59 06:59 Intake Total 900 Output Total 400 Balance 500 - Medications Medications: Current Medications Albuterol/Ipratropium (Duoneb 3 Mg/0.5 Mg (3 Ml) Ud) 3 ml IH [id number] [facility] Last Admin: 04/26/17 13:07 Dose: 3 ml Amiodarone HCl (Cordarone) 200 mg PO DAILY [facility] Last Admin: 04/26/17 09:06 Dose: 200 mg Atorvastatin Calcium (Lipitor) 10 mg PO DIN [facility] Last Admin: 04/26/17 17:45 Dose: 10 mg Budesonide (Pulmicort Respules) 0.5 mg IH BIDRESP [facility] Last Admin: 04/26/17 07:29 Dose: 0.5 mg Calcium Acetate (Phoslo) 667 mg PO DAILY [facility] Last Admin: 04/26/17 09:07 Dose: 667 mg Cholecalciferol (Vitamin D) 1,000 iu PO DAILY [facility] Last Admin: 04/26/17 09:07 Dose: 1,000 iu Digoxin (Lanoxin) 0.125 mg PO 1400 [facility] Last Admin: 04/26/17 14:24 Dose: 0.125 mg Docusate Sodium (Colace) 100 mg PO TID [facility] Last Admin: 04/26/17 17:41 Dose: 100 mg Furosemide (Lasix) 40 mg IVP DAILY [facility] Last Admin: 04/26/17 09:07 Dose: 40 mg Guaifenesin (Mucinex La) 600 mg PO BID [facility] Last Admin: 04/26/17 17:42 Dose: 600 mg Home Med (Home Med) 0 unit PO BID [facility] Last Admin: 04/26/17 18:00 Dose: 1 unit Hydromorphone HCl (Dilaudid) 1.5 mg IVP Q4H PRN PRN Reason: Pain, severe (8-10) Ceftazidime/Avibactam 1.25 gm/ (Sodium Chloride) 100 mls @ 50 mls/hr IVPB Q8 [facility] Stop: 04/30/17 14:01 Last Admin: 04/26/17 14:23 Dose: 50 mls/hr Insulin Human Regular (Humulin R Low) 0 units SC ACHS [facility] PRN Reason: Protocol Last Admin: 04/26/17 17:41 Dose: Not Given Levothyroxine Sodium (Synthroid) 100 mcg PO 0600 [facility] Last Admin: 04/26/17 05:59 Dose: 100 mcg Montelukast Sodium (Singulair) 10 mg PO DAILY [facility] Last Admin: 04/26/17 09:04 Dose: 10 mg Ondansetron HCl (Zofran Inj) 4 mg IVP Q4H PRN PRN Reason: Nausea/Vomiting Last Admin: 04/23/17 18:49 Dose: 4 mg Pantoprazole Sodium (Protonix Ec Tab) 40 mg PO 1000 [facility] Last Admin: 04/26/17 09:10 Dose: 40 mg Polyethylene Glycol (Miralax) 17 gm PO BID [facility] Last Admin: 04/26/17 17:42 Dose: 17 gm Prednisone (Prednisone Tab) 10 mg PO DAILY [facility] Last Admin: 04/26/17 09:06 Dose: 10 mg Tiotropium [place] (Spiriva) 18 mcg IH DAILY [facility] Last Admin: 04/26/17 09:06 Dose: 18 mcg - Labs Labs: 04/26/17 09:50 04/26/17 09:50 PT 11.2 Seconds (9.9-11.8) 04/23/17 12:00 INR 1.04 (0.93-1.08) 04/23/17 12:00 APTT 26.1 Seconds (23.7-30.8) 04/23/17 12:00 - Constitutional Appears: Well - Head Exam Head Exam: NORMOCEPHALIC - Eye Exam Eye Exam: Normal appearance Additional comments: Conjunctiva Slightly Pale. - ENT Exam ENT Exam: Mucous Membranes Moist, Normal Exam - Neck Exam Neck Exam: Normal Inspection - Respiratory Exam Respiratory Exam: NORMAL BREATHING PATTERN - Cardiovascular Exam Cardiovascular Exam: +S1, +S2 Additional comments: Toney Systolic Murmur - GI/Abdominal Exam GI & Abdominal Exam: Soft, Normal Bowel Sounds - Exam Additional comments: Avendano Catheter. - Extremities Exam Additional comments: No Oedema. Assessment and Plan - Assessment and Plan (Free Text) Assessment: Recurrent UTI, CAD, CABG, Multiple Angioplasties.,Anaemia, Cardiomyopathy, AICD , Avendano Catheter.,HTN,DM,PAF,Prostatic CA, Renal Dysfunction. H/O Thrombophlebitis but off Anticoagulation due to Hemeturia. Plan: Continue Antibiotics,Lasix, Amiodorone.
[2017-04-27] MEDS: Albuterol-Ipratrop 3 mg / 0.5 (3 ml) UD IH SCH ×5 (01:44→20:43)
[2017-04-27] MEDS: Insulin Reg-LOW-Coverage SC SCH ×5 (06:04→22:00)
[2017-04-27] MEDS: Insulin Human NPH/Reg 70/30 Vial(3 ml) SC SCH ×5 (06:04→22:06)
[2017-04-27] MEDS: Levothyroxine 100 MCG TAB PO SCH (06:17)
[2017-04-27] MEDS: HYDROmorphone 1 mg/ml ISec IVP PRN ×2 (07:08→21:03)
[2017-04-27] MEDS: Budesonide 0.5 mg/2 ml Inhal Susp UD IH SCH ×2 (07:28→20:43)
--- NOTE | 2017-04-27 07:38 | CP.PCM.PN ---
<Devora Alvarado - Last Filed: 04/27/17 11:18> Subjective - Date & Time of Evaluation Date of Evaluation: 04/27/17 Time of Evaluation: 07:36 - Subjective Subjective: PGY-[address] Carballo Clots in schroeder last night with increased suprapubic pain Continus bladder irrigation initiated last night Dr. Masterson/Dani on board This abdominal AM pain changes from 810 to 6/10 cough persists Objective - Vital Signs/Intake and Output Vital Signs (last 24 hours): Temp Pulse Resp BP Pulse Ox 97.8 F 59 L 20 149/68 96 04/25/17 11:46 04/26/17 09:06 04/26/17 07:30 04/26/17 09:07 04/26/17 07:30 Intake and Output: 04/27/17 04/27/17 06:59 18:59 Intake Total 720 Output Total 125 Balance 595 - Medications Medications: Current Medications Albuterol/Ipratropium (Duoneb 3 Mg/0.5 Mg (3 Ml) Ud) 3 ml IH [id number] [facility] Last Admin: 04/27/17 07:28 Dose: 3 ml Amiodarone HCl (Cordarone) 200 mg PO DAILY [facility] Last Admin: 04/26/17 09:06 Dose: 200 mg Atorvastatin Calcium (Lipitor) 10 mg PO DIN [facility] Last Admin: 04/26/17 17:45 Dose: 10 mg Budesonide (Pulmicort Respules) 0.5 mg IH BIDRESP [facility] Last Admin: 04/27/17 07:28 Dose: 0.5 mg Calcium Acetate (Phoslo) 667 mg PO DAILY [facility] Last Admin: 04/26/17 09:07 Dose: 667 mg Cholecalciferol (Vitamin D) 1,000 iu PO DAILY [facility] Last Admin: 04/26/17 09:07 Dose: 1,000 iu Digoxin (Lanoxin) 0.125 mg PO 1400 [facility] Last Admin: 04/26/17 14:24 Dose: 0.125 mg Docusate Sodium (Colace) 100 mg PO TID [facility] Last Admin: 04/26/17 17:41 Dose: 100 mg Furosemide (Lasix) 40 mg IVP DAILY [facility] Last Admin: 04/26/17 09:07 Dose: 40 mg Guaifenesin (Mucinex La) 600 mg PO BID [facility] Last Admin: 04/26/17 17:42 Dose: 600 mg Home Med (Home Med) 0 unit PO BID [facility] Last Admin: 04/26/17 18:00 Dose: 1 unit Hydromorphone HCl (Dilaudid) 1.5 mg IVP Q4H PRN PRN Reason: Pain, severe (8-10) Last Admin: 04/27/17 07:08 Dose: 1.5 mg Ceftazidime/Avibactam 1.25 gm/ (Sodium Chloride) 100 mls @ 50 mls/hr IVPB Q8 [facility] Stop: 04/30/17 14:01 Last Admin: 04/27/17 06:24 Dose: 50 mls/hr Insulin Human Regular (Humulin R Low) 0 units SC ACHS [facility] PRN Reason: Protocol Last Admin: 04/27/17 06:04 Dose: Not Given Levothyroxine Sodium (Synthroid) 100 mcg PO 0600 [facility] Last Admin: 04/27/17 06:17 Dose: 100 mcg Montelukast Sodium (Singulair) 10 mg PO DAILY [facility] Last Admin: 04/26/17 09:04 Dose: 10 mg Ondansetron HCl (Zofran Inj) 4 mg IVP Q4H PRN PRN Reason: Nausea/Vomiting Last Admin: 04/23/17 18:49 Dose: 4 mg Pantoprazole Sodium (Protonix Ec Tab) 40 mg PO 1000 [facility] Last Admin: 04/26/17 09:10 Dose: 40 mg Polyethylene Glycol (Miralax) 17 gm PO BID [facility] Last Admin: 04/26/17 17:42 Dose: 17 gm Prednisone (Prednisone Tab) 10 mg PO DAILY [facility] Last Admin: 04/26/17 09:06 Dose: 10 mg Tiotropium [place] (Spiriva) 18 mcg IH DAILY [facility] Last Admin: 04/26/17 09:06 Dose: 18 mcg - Labs Labs: 04/26/17 09:50 04/26/17 09:50 PT 11.2 Seconds (9.9-11.8) 04/23/17 12:00 INR 1.04 (0.93-1.08) 04/23/17 12:00 APTT 26.1 Seconds (23.7-30.8) 04/23/17 12:00 - Constitutional Appears: Chronically Ill - Head Exam Head Exam: ATRAUMATIC, NORMAL INSPECTION, NORMOCEPHALIC - Eye Exam Eye Exam: EOMI, Normal appearance, PERRL. absent: Scleral icterus Pupil Exam: PERRL - ENT Exam ENT Exam: Mucous Membranes Moist - Respiratory Exam Respiratory Exam: Decreased Breath Sounds, Clear to Ausculation Bilateral. absent: Rales, Rhonchi, Wheezes - Cardiovascular Exam Cardiovascular Exam: REGULAR RHYTHM, +S1, +S2 - GI/Abdominal Exam GI & Abdominal Exam: Distended (RLQ/suprapubic), Soft, Tenderness (RLQ) - Extremities Exam Extremities Exam: Normal Capillary Refill. 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 Pt had hemauturia (hx icd, quadriple bypass) , improving. He is in contact isolation for ESBL,Carbapenem-resistant Klebsiella UTI, complicated, indwelling Schroeder catheter. Transamininitis with abdominal pain persists. Clots likely from microscopic hematuria were found in schroeder so started continuous bladder irrigation. Abdominal pain Hematuria with Clots in urine Gross Hemautria - resolved Due to prostate ca - likely referred pain from origin - Hb stable 10.2, plt 207, inr 1.04 - continuos bladder irrigation, titrate as needed - Dr. Louise on board - hold ASA and Plavix. on home tranexamc acid 650 mg 2 tablets bid UTI, complicated, indwelling Schroeder catheter growing Carbapenem-resistant Klebsiella history of right foot necrotic ulcer with surrounding cellulitis Leukocytosis - Duoneb, prednisone taper - switch Merrem to Avycaz (day 4) and pending repeat urine cx (avoid Amikacin) - CT scan of the abdomen and pelvis which showed mural thickening of the urinary bladder Transaminitis - possible amiodarone vs lipitor Constipation - s/p lactulose. Had BM 2 days ago. - CT negative of acute GI event. 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 Carballo <Rogelio Carballo P - Last Filed: 04/27/17 19:39> Objective - Vital Signs/Intake and Output Vital Signs (last 24 hours): Temp Pulse Resp BP Pulse Ox 97.7 F 70 19 145/65 99 04/27/17 17:55 04/27/17 17:55 04/27/17 17:55 04/27/17 17:55 04/27/17 17:55 Intake and Output: 04/27/17 04/28/17 18:59 06:59 Intake Total 720 Balance 720 - Medications Medications: Current Medications Albuterol/Ipratropium (Duoneb 3 Mg/0.5 Mg (3 Ml) Ud) 3 ml IH [id number] [facility] Last Admin: 04/27/17 13:11 Dose: 3 ml Amiodarone HCl (Cordarone) 200 mg PO DAILY [facility] Last Admin: 04/27/17 10:53 Dose: 200 mg Atorvastatin Calcium (Lipitor) 10 mg PO DIN [facility] Last Admin: 04/27/17 17:54 Dose: 10 mg Budesonide (Pulmicort Respules) 0.5 mg IH BIDRESP [facility] Last Admin: 04/27/17 07:28 Dose: 0.5 mg Calcium Acetate (Phoslo) 667 mg PO DAILY [facility] Last Admin: 04/27/17 10:53 Dose: 667 mg Cholecalciferol (Vitamin D) 1,000 iu PO DAILY [facility] Last Admin: 04/27/17 10:53 Dose: 1,000 iu Digoxin (Lanoxin) 0.125 mg PO 1400 [facility] Last Admin: 04/27/17 15:15 Dose: 0.125 mg Docusate Sodium (Colace) 100 mg PO TID [facility] Last Admin: 04/27/17 17:54 Dose: 100 mg Furosemide (Lasix) 40 mg IVP DAILY [facility] Last Admin: 04/27/17 10:53 Dose: 40 mg Guaifenesin (Mucinex La) 600 mg PO BID [facility] Last Admin: 04/27/17 17:54 Dose: 600 mg Home Med (Home Med) 0 unit PO BID [facility] Last Admin: 04/27/17 17:54 Dose: 1 unit Hydromorphone HCl (Dilaudid) 1.5 mg IVP Q4H PRN PRN Reason: Pain, severe (8-10) Last Admin: 04/27/17 07:08 Dose: 1.5 mg Ceftazidime/Avibactam 1.25 gm/ (Sodium Chloride) 100 mls @ 50 mls/hr IVPB Q8 [facility] Stop: 04/30/17 14:01 Last Admin: 04/27/17 15:15 Dose: 50 mls/hr Insulin Human Regular (Humulin R Low) 0 units SC ACHS [facility] PRN Reason: Protocol Last Admin: 04/27/17 17:47 Dose: Not Given Levothyroxine Sodium (Synthroid) 100 mcg PO 0600 [facility] Last Admin: 04/27/17 06:17 Dose: 100 mcg Montelukast Sodium (Singulair) 10 mg PO DAILY [facility] Last Admin: 04/27/17 10:53 Dose: 10 mg Ondansetron HCl (Zofran Inj) 4 mg IVP Q4H PRN PRN Reason: Nausea/Vomiting Last Admin: 04/23/17 18:49 Dose: 4 mg Pantoprazole Sodium (Protonix Ec Tab) 40 mg PO 1000 [facility] Last Admin: 04/27/17 10:53 Dose: 40 mg Polyethylene Glycol (Miralax) 17 gm PO BID [facility] Last Admin: 04/27/17 17:54 Dose: 17 gm Prednisone (Prednisone Tab) 10 mg PO DAILY [facility] Last Admin: 04/27/17 10:53 Dose: 10 mg Tiotropium [place] (Spiriva) 18 mcg IH DAILY [facility] Last Admin: 04/27/17 10:53 Dose: 18 mcg - Labs Labs: 04/26/17 09:50 04/26/17 09:50 PT 11.2 Seconds (9.9-11.8) 04/23/17 12:00 INR 1.04 (0.93-1.08) 04/23/17 12:00 APTT 26.1 Seconds (23.7-30.8) 04/23/17 12:00 Attending/Attestation - Attestation I have personally seen and examined this patient.: Yes I have fully participated in the care of the patient.: Yes I have reviewed all pertinent clinical information, including history, physical exam and plan: Yes
[2017-04-27] MEDS: Pantoprazole 40 mg EC Tab PO SCH (10:53)
[2017-04-27] MEDS: guaiFENesin 600 mg ER Tab PO SCH ×2 (10:53→17:54)
[2017-04-27] MEDS: Tiotropium 18 mcg Cap For Inhalation IH SCH (10:53)
[2017-04-27] MEDS: POLYETHYLENE GLYCOL 3350 17 GM/Dose PACKET PO SCH ×2 (10:55→17:54)
--- NOTE | 2017-04-27 11:40 | CP.PCM.PN ---
Subjective - Date & Time of Evaluation Date of Evaluation: 04/27/17 Time of Evaluation: 09:05 - Subjective Subjective: Seen and examined at bedside, schroeder was obstructed. had blood clots in urine yesterday causing suprapubic discomfort, schroeder was irrigated and now have CBI, no hematuria. Abdominal pain is better, C/O scrotal pain. Had small BM, no c/o constipation. No SOB or chest pain. Objective - Vital Signs/Intake and Output Vital Signs (last 24 hours): Temp Pulse Resp BP Pulse Ox 97.9 F 67 18 138/63 98 04/27/17 07:59 04/27/17 10:53 04/27/17 07:59 04/27/17 10:53 04/27/17 07:59 Intake and Output: 04/27/17 04/27/17 06:59 18:59 Intake Total 720 Output Total 125 Balance 595 - Medications Medications: Current Medications Albuterol/Ipratropium (Duoneb 3 Mg/0.5 Mg (3 Ml) Ud) 3 ml IH [id number] [facility] Last Admin: 04/27/17 07:28 Dose: 3 ml Amiodarone HCl (Cordarone) 200 mg PO DAILY [facility] Last Admin: 04/27/17 10:53 Dose: 200 mg Atorvastatin Calcium (Lipitor) 10 mg PO DIN [facility] Last Admin: 04/26/17 17:45 Dose: 10 mg Budesonide (Pulmicort Respules) 0.5 mg IH BIDRESP [facility] Last Admin: 04/27/17 07:28 Dose: 0.5 mg Calcium Acetate (Phoslo) 667 mg PO DAILY [facility] Last Admin: 04/27/17 10:53 Dose: 667 mg Cholecalciferol (Vitamin D) 1,000 iu PO DAILY [facility] Last Admin: 04/27/17 10:53 Dose: 1,000 iu Digoxin (Lanoxin) 0.125 mg PO 1400 [facility] Last Admin: 04/26/17 14:24 Dose: 0.125 mg Docusate Sodium (Colace) 100 mg PO TID [facility] Last Admin: 04/27/17 10:53 Dose: 100 mg Furosemide (Lasix) 40 mg IVP DAILY [facility] Last Admin: 04/27/17 10:53 Dose: 40 mg Guaifenesin (Mucinex La) 600 mg PO BID [facility] Last Admin: 04/27/17 10:53 Dose: 600 mg Home Med (Home Med) 0 unit PO BID [facility] Last Admin: 04/27/17 10:54 Dose: 1 unit Hydromorphone HCl (Dilaudid) 1.5 mg IVP Q4H PRN PRN Reason: Pain, severe (8-10) Last Admin: 04/27/17 07:08 Dose: 1.5 mg Ceftazidime/Avibactam 1.25 gm/ (Sodium Chloride) 100 mls @ 50 mls/hr IVPB Q8 [facility] Stop: 04/30/17 14:01 Last Admin: 04/27/17 06:24 Dose: 50 mls/hr Insulin Human Regular (Humulin R Low) 0 units SC ACHS [facility] PRN Reason: Protocol Last Admin: 04/27/17 10:55 Dose: Not Given Levothyroxine Sodium (Synthroid) 100 mcg PO 0600 [facility] Last Admin: 04/27/17 06:17 Dose: 100 mcg Montelukast Sodium (Singulair) 10 mg PO DAILY [facility] Last Admin: 04/27/17 10:53 Dose: 10 mg Ondansetron HCl (Zofran Inj) 4 mg IVP Q4H PRN PRN Reason: Nausea/Vomiting Last Admin: 04/23/17 18:49 Dose: 4 mg Pantoprazole Sodium (Protonix Ec Tab) 40 mg PO 1000 [facility] Last Admin: 04/27/17 10:53 Dose: 40 mg Polyethylene Glycol (Miralax) 17 gm PO BID [facility] Last Admin: 04/27/17 10:55 Dose: 17 gm Prednisone (Prednisone Tab) 10 mg PO DAILY [facility] Last Admin: 04/27/17 10:53 Dose: 10 mg Tiotropium [place] (Spiriva) 18 mcg IH DAILY [facility] Last Admin: 04/27/17 10:53 Dose: 18 mcg - Labs Labs: 04/26/17 09:50 04/26/17 09:50 PT 11.2 Seconds (9.9-11.8) 04/23/17 12:00 INR 1.04 (0.93-1.08) 04/23/17 12:00 APTT 26.1 Seconds (23.7-30.8) 04/23/17 12:00 - Constitutional Appears: No Acute Distress - Head Exam Head Exam: NORMOCEPHALIC - Eye Exam Eye Exam: Normal appearance. absent: Scleral icterus - ENT Exam ENT Exam: Mucous Membranes Moist - Neck Exam Neck Exam: Normal Inspection - Respiratory Exam Respiratory Exam: Decreased Breath Sounds, NORMAL BREATHING PATTERN. absent: Respiratory Distress - Cardiovascular Exam Cardiovascular Exam: +S1, +S2 - GI/Abdominal Exam GI & Abdominal Exam: Soft, Tenderness, Normal Bowel Sounds. absent: Guarding, Rebound - Extremities Exam Extremities Exam: absent: Calf Tenderness, Pedal Edema - Neurological Exam Neurological Exam: Alert, Awake, Oriented x3 - Skin Skin Exam: Dry, Warm Assessment and Plan - Assessment and Plan (Free Text) Assessment: ASSESSMENT: Abdominal Pain s/p ct scan GB sludge, (+) lymphadenopathy as before H/O Bladder cancer Hematuria Resolved Hyperkalemia UTI, ESBL Chronic constipation CHF COPD CKD CAD w/ stents PLAN: continue Colace continue Miralax to BID, hold for stool>2/day on IV antibiotics on Lasix continue PPI on Prednisone monitor electrolytes and h/h off Plavix and ASA diet as tolerated urology FU Seen and discussed w/ Dr. Bal.
[2017-04-27] MEDS: Digoxin 125 mcg (0.125 mg) Tab PO SCH (15:15)
[2017-04-27 15:21] VITALS: PULSE 68
[2017-04-27 17:56] VITALS: TEMP 97.7
[2017-04-28] MEDS: Albuterol-Ipratrop 3 mg / 0.5 (3 ml) UD IH SCH ×3 (01:17→13:04)
[2017-04-28] MEDS: Levothyroxine 100 MCG TAB PO SCH (06:07)
[2017-04-28] MEDS ORDERED: Lidocaine 2% Inj (20ml) ONE (06:40)
[2017-04-28] MEDS ORDERED: Midazolam 2 MG/2 ML VIAL ONE ×2 (06:57→07:55)
[2017-04-28] MEDS: Budesonide 0.5 mg/2 ml Inhal Susp UD IH SCH (07:26)
[2017-04-28] MEDS: Insulin Human NPH/Reg 70/30 Vial(3 ml) SC SCH ×2 (08:00→11:51)
[2017-04-28] MEDS: Insulin Reg-LOW-Coverage SC SCH ×2 (08:00→11:51)
[2017-04-28] MEDS ORDERED: Sodium Chloride 0.45% 1,000 ML IV SCH (08:45)
[2017-04-28 08:59] VITALS: PULSE 61; O2SAT 96
--- NOTE | 2017-04-28 09:07 | PN ---
SUBJECTIVE: Patient is admitted with infection, abdominal pain, uncontrolled diabetes, cough, shortness of breath. Patient was evaluated in the emergency room and admitted and the patient is on antibiotic treatment. Patient is also getting treatment for hematuria, which is profuse at times. Patient has irrigation process going on of the urinary bladder. Patient also gets medication for diabetes, hypothyroidism, chronic obstructive lung disease. Patient is on treatment for congestive heart failure, hypertension. ALLERGIES: PATIENT IS ALLERGIC TO IODINE, DYE AND LEVOFLOXACIN. PHYSICAL EXAMINATION VITAL SIGNS: This morning, the pulse is 60 per minute, blood pressure 149/68, respirations 20 and O2 saturation is 96% on room air. HEENT: Head is normocephalic. He has a lesion on his forehead, looks like might be a small basal cell lesion. NECK: Thyroid is not clinically enlarged. Patient's JVP is flat. No lymphadenopathy in the neck. HEART: Normal sinus rhythm. He has a pacemaker and the EKG shows functioning pacemaker rhythm. LUNGS: Trachea central. Breath sounds vesicular. Bilateral crepitation and rhonchi as well as breath sounds are diminished bilaterally. ABDOMEN: Soft, decreased tenderness in all 4 quadrants of the abdomen. There is no rebound tenderness. INTERNATIONAL NURSE: He is conscious, rational, oriented, very anxious due to the fact that he has this chronic recurrent illness. MEDICATIONS: Patient's medication consists of avibactam and ceftazidime antibiotic that have been introduced recently for the patient's benefit. Patient is on Colace 100 mg three times a day. Patient is on amiodarone 200 mg daily. Patient is on Dilaudid 1.5 mg IV q. 4 hours for pain. Patient is on DuoNeb for respiratory treatment, insulin 70/30 for diabetes, digoxin 125 mcg daily, Lasix 40 mg IV daily. Patient is on Lipitor 10 mg daily, MiraLax 17 g at night daily, PhosLo 667 mg daily, prednisone 10 mg daily, pantoprazole 40 mg daily, Pulmicort b.i.d., montelukast daily 10 mg. Patient is on Spiriva 18 mcg daily, Synthroid 100 mcg daily, vitamin D 1000 International Units. Patient is on Zofran for nausea and vomiting p.r.n. 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 Patient has pain in the perineal area. The patient's general condition is barely improving at this time. The patient needs acute care. The patient can get out of the bed, but he had difficulty in walking and to stand. We will request physical therapy for the patient and also evaluation for transfusion and care. The patient's consultations are done with Dr. Masterson, urologist; Dr. Lozano, master yacht; Dr. Arias, food and beverage intern; Dr Walters, inventory controller; Dr. Hernandez, Infectious Disease apprenticeship consultant. Patient is also getting respiratory treatment as mentioned before. His overall prognosis is guarded. Condition is mild. Slight improvement is noted. We will continue current management and follow up. Giselle Polk MD MTDD
[2017-04-28 09:14] VITALS: RESP 15
--- NOTE | 2017-04-28 09:21 | PN ---
DATE: 04/27/2017 SUBJECTIVE: The patient was seen earlier today in 572, bed 2. The patient states that he is feeling slightly better. No fevers and no chills. PHYSICAL EXAMINATION VITAL SIGNS: Temperature is 98, blood pressure is 138/60, respiratory rate is 18, heart rate of 67. HEENT: Unremarkable. NECK: Supple. HEART: Normal S1 and S2. LUNGS: Have decreased breath sounds. ABDOMEN: Soft and nontender. LABORATORY DATA: Reveals a white count down to 11,000, hemoglobin of 10, platelets of 207 and coagulation is noted and the patient's creatinine is 1.2 and urinalysis is noted and urine culture is Klebsiella pneumoniae. Blood cultures had no growth and the Klebsiella is noted to be ESBL and review of the orders revealed the patient to be on Avycaz. ASSESSMENT AND PLAN: This is an 87-year-old male with carbepenem-resistant Klebsiella urinary tract infection with an indwelling Avendano catheter, right foot necrotic ulcer, surrounding cellulitis, urinary tract infection with Enterococcus and Klebsiella, chronic renal failure, history of deep venous thrombosis, prostate cancer, history of Enterococcus urinary tract infection, on Avycaz day #3. CAT scan noted. We will follow closely with you. Elliot Hernandez MD
--- NOTE | 2017-04-28 09:21 | PN ---
REASON FOR CONSULTATION: Followup cardiac evaluation and admitted with lower abdominal pain. BRIEF CLINICAL HISTORY: This is an 87-year-old male with a past medical history significant for coronary artery disease, status post PTCA, status post CABG as well as AICD; chronic renal insufficiency; history of prostate CA, indwelling Avendano catheter, admitted with Abdominal pain. The patient's catheter blocked and feeling a lot of pain now. The patient on continuous bladder irrigation and feels better. Denies any chest pain, shortness of breath, or any palpitation. PHYSICAL EXAMINATION: VITAL SIGNS: Temperature afebrile; heart rate 69, blood pressure 138/63. HEENT: PERRLA, intact. NECK: Supple. No carotid bruit or thyromegaly. CHEST: Clear to auscultation. HEART: S1 and S2, regular. ABDOMEN: Soft. EXTREMITIES: Clubbing and cyanosis negative. BLOOD WORKUP: WBC is 11, hemoglobin 10.2, hematocrit 33.3, platelet count 207. Chemistry shows sodium 130, potassium 4.0, chloride 91, carbon dioxide at 33, anion gap of 11, BUN 32, creatinine 1.2. IMPRESSION: Indwelling catheter, urinary tract infection, catheter blocked, abdominal pain, and now continuous bladder irrigation and feels better; coronary artery disease, coronary artery bypass graft; diabetes mellitus, hyperlipemia, history of nonischemic myocardial infarction in the past; paroxysmal atrial fibrillation. RECOMMENDATION: Continue heparin, continue digoxin. History of recently generator change; continue digoxin; continue gentle diuresis, continuous bladder irrigation. We will follow with you, CV status stable. No further interventions from cardiac point of view. No anginal symptoms now. The patient is stable on medical treatment. ANNABELLA
--- NOTE | 2017-04-28 09:22 | PN ---
DATE: 04/27/2017 The patient was seen lying in bed. He is complaining of lower abdominal pain. He reports that his Avendano was blocked. He had a lot of clots. Currently, he is receiving bladder irrigation. PHYSICAL EXAMINATION: GENERAL: Elderly male, lying in bed. VITAL SIGNS: Blood pressure 138/63, heart rate 67, respiratory rate 18, temperature 97.9. HEENT: Normocephalic, atraumatic, positive pallor. NECK: Supple. No JVD. LUNGS: Bilateral equal air entry, bilateral rhonchi, no rales. CARDIAC: S1 and S2, regular rate and rhythm; positive murmur, no rub. ABDOMEN: Distended, soft, positive tenderness in the lower abdomen. EXTREMITIES: No lower extremity edema. INTAKE AND OUTPUT: 1620/525. LABORATORY DATA: WBC 11, hemoglobin 10, hematocrit 33, platelets 207. No chemistry today. Urine culture, Klebsiella, sensitive only to amikacin. CURRENT MEDICATIONS: Ceftazidime/avibactam, Colace, amiodarone, Dilaudid, DuoNeb, insulin, digoxin, Lasix, Lipitor, MiraLax, PhosLo, prednisone, Protonix, Pulmicort, Singulair, Synthroid, Zofran. ASSESSMENT: 1. History of bladder cancer, recurrent hematuria, indwelling Avendano. 2. Klebsiella urinary tract infection. 3. Hyponatremia. 4. Hyperkalemia, resolved. 5. Anemia. 6. Coronary artery disease. PLAN: 1. Continue antibiotics as per infectious disease recommendations. 2. Dose of antibiotics for creatinine clearance 10-30 mL per minute. 3. Avoid nephrotoxins. 4. Check digoxin level. 5. Continue bladder irrigation. 6. Urology followup.
--- NOTE | 2017-04-28 09:24 | PN ---
PULMONARY PROGRESS NOTE SUBJECTIVE: Mr. Amador is doing markedly better today. From a pulmonary standpoint, he no longer has significant respiratory distress. He feels well. He still has some cough with minimal expectoration. There is no significant distress. He remains on antibiotics. Minimal cough as stated above. Clear phlegm when expectorated but much less than before. His respiratory status is markedly stable. His abdomen remains tender, but he is eating. He is still complaining of tremendous pain, which to his account is not diagnosed as of yet. He remains on antibiotic for unknown etiology, but he is happier than yesterday. PHYSICAL EXAMINATION: GENERAL: He is resting comfortably after finishing his breakfast. VITAL SIGNS: Stable with a blood pressure of 130/84, heart rate 80, respiratory rate 16, oxygen sat 98%. He is doing well at this time. NECK: Supple. There is no jugular venous distention. CHEST: His chest has some rhonchi, but no rales or wheezes appreciated. HEART: Regular rhythm. S1 and S2 without murmur, gallop or rub. ABDOMEN: Soft but tender. EXTREMITIES: Reveal no clubbing, cyanosis or edema. NEUROLOGIC: Normal. SKIN: Dry; intact LABORATORY DATA: Chest x-ray originally showed some pulmonary vascular congestion. Despite report, the current film looks somewhat improved. Arterial blood gas yesterday shows a pH of 7.49, pCO2 of 44, pO2 of 63 on room air, so he is hyperventilating but still has some mild CO2 retention, but he does have significant alkalosis. IMPRESSION: 1. Relative hypoxemia. 2. Congestive heart failure, improved. 3. Chronic obstructive pulmonary disease, stable. 4. Mucus plugging, improved. 5. Amiodarone on board for cardiac reasons. No pulmonary problems at this time. 6. Abdominal pain. PLAN: Continue bronchodilators. Continue antibiotics. We will discuss with PMD to decide if further intervention is required from a pulmonary point of view. The patient is doing quite well and we will need to continue to follow up closely on the need for further pulmonary intervention as needed. We will review his pulmonary orders and taper whatever medications can be tapered in the near future. I would give him one more day on the same medication. He is on budesonide which does not need to be tapered and is not on any oral corticosteroids. We will follow closely with you. Thank you for the opportunity to see this gentleman. Werner Muhammad MD MT[place]
[2017-04-28] MEDS: Pantoprazole 40 mg EC Tab PO SCH (09:42)
[2017-04-28] MEDS: guaiFENesin 600 mg ER Tab PO SCH (09:43)
[2017-04-28] MEDS: Tiotropium 18 mcg Cap For Inhalation IH SCH (09:43)
[2017-04-28] MEDS: POLYETHYLENE GLYCOL 3350 17 GM/Dose PACKET PO SCH (09:46)
[2017-04-28 09:53] VITALS: BP 130/65
--- NOTE | 2017-04-28 12:11 | NM ---
PROCEDURE: Whole Body Bone Scan HISTORY: prostate cancer r/o bone mets COMPARISON: 06/15/2016 TECHNIQUE: Following administration of 24.0 miCu of Tc MDP multiplanar whole body images were obtained. FINDINGS: Evidence for bony metastatic disease: Multiple foci of abnormal increased uptake consistent with osseous metastatic disease from known prostate cancer. These are new findings primarily in the thoracolumbar spine, pelvis, proximal femurs. Degenerative uptake: Right foot and cervical spine Physiologic uptake: Normal physiologic activity in the kidneys. Other findings: None. IMPRESSION: New osseous metastatic disease primarily affecting the axial skeleton.
--- NOTE | 2017-04-28 12:15 | CP.PCM.PN ---
<Claudia Armendariz - Last Filed: 04/28/17 12:17> Subjective - Date & Time of Evaluation Date of Evaluation: 04/28/17 Time of Evaluation: 09:50 - Subjective Subjective: S&E at bedside, chart reviewed. No acute overnight events. Complain of right lower quadrant pain to scrotum, schroeder is draining, no blood, had bm, no bleeding. No SOB or chest pain or acute overnight events reported. Objective - Vital Signs/Intake and Output Vital Signs (last 24 hours): Temp Pulse Resp BP Pulse Ox 97.7 F 61 15 130/65 96 04/28/17 09:10 04/28/17 09:10 04/28/17 09:10 04/28/17 09:45 04/28/17 10:00 Intake and Output: 04/28/17 04/28/17 06:59 18:59 Intake Total 720 Output Total 4150 Balance -3430 - Medications Medications: Current Medications Acetaminophen (Tylenol 325mg Tab) 650 mg PO Q4 PRN PRN Reason: Pain, Mild (1-3) Albuterol/Ipratropium (Duoneb 3 Mg/0.5 Mg (3 Ml) Ud) 3 ml IH [id number] [facility] Last Admin: 04/28/17 07:26 Dose: Not Given Amiodarone HCl (Cordarone) 200 mg PO DAILY [facility] Last Admin: 04/28/17 09:43 Dose: 200 mg Atorvastatin Calcium (Lipitor) 10 mg PO DIN [facility] Last Admin: 04/27/17 17:54 Dose: 10 mg Budesonide (Pulmicort Respules) 0.5 mg IH BIDRESP [facility] Last Admin: 04/28/17 07:26 Dose: Not Given Calcium Acetate (Phoslo) 667 mg PO DAILY [facility] Last Admin: 04/28/17 09:52 Dose: 667 mg Cholecalciferol (Vitamin D) 1,000 iu PO DAILY [facility] Last Admin: 04/28/17 09:43 Dose: 1,000 iu Digoxin (Lanoxin) 0.125 mg PO 1400 [facility] Last Admin: 04/27/17 15:15 Dose: 0.125 mg Docusate Sodium (Colace) 100 mg PO TID [facility] Last Admin: 04/28/17 09:43 Dose: 100 mg Furosemide (Lasix) 40 mg IVP DAILY [facility] Last Admin: 04/28/17 09:45 Dose: 40 mg Guaifenesin (Mucinex La) 600 mg PO BID [facility] Last Admin: 04/28/17 09:43 Dose: 600 mg Home Med (Home Med) 0 unit PO BID [facility] Last Admin: 04/28/17 09:44 Dose: 1 unit Hydromorphone HCl (Dilaudid) 1.5 mg IVP Q4H PRN PRN Reason: Pain, severe (8-10) Last Admin: 04/27/17 21:03 Dose: 1.5 mg Ceftazidime/Avibactam 1.25 gm/ (Sodium Chloride) 100 mls @ 50 mls/hr IVPB Q8 [facility] Stop: 04/30/17 14:01 Last Admin: 04/28/17 06:07 Dose: 50 mls/hr Sodium Chloride (Sodium Chloride 0.45%) 1,000 mls @ 80 mls/hr IV .[id number] [facility] Stop: 04/28/17 13:00 Last Admin: 04/28/17 09:51 Dose: 80 mls/hr Insulin Human Regular (Humulin R Low) 0 units SC ACHS [facility] PRN Reason: Protocol Last Admin: 04/28/17 11:51 Dose: 3 units Levothyroxine Sodium (Synthroid) 125 mcg PO 0600 [facility] Montelukast Sodium (Singulair) 10 mg PO DAILY [facility] Last Admin: 04/28/17 09:43 Dose: 10 mg Ondansetron HCl (Zofran Inj) 4 mg IVP Q4H PRN PRN Reason: Nausea/Vomiting Last Admin: 04/23/17 18:49 Dose: 4 mg Pantoprazole Sodium (Protonix Ec Tab) 40 mg PO 1000 [facility] Last Admin: 04/28/17 09:42 Dose: 40 mg Polyethylene Glycol (Miralax) 17 gm PO BID [facility] Last Admin: 04/28/17 09:46 Dose: 17 gm Prednisone (Prednisone Tab) 10 mg PO DAILY [facility] Last Admin: 04/28/17 09:42 Dose: 10 mg Tiotropium [place] (Spiriva) 18 mcg IH DAILY [facility] Last Admin: 04/28/17 09:43 Dose: 18 mcg - Labs Labs: 04/26/17 09:50 04/26/17 09:50 PT 11.2 Seconds (9.9-11.8) 04/23/17 12:00 INR 1.04 (0.93-1.08) 04/23/17 12:00 APTT 26.1 Seconds (23.7-30.8) 04/23/17 12:00 - Constitutional Appears: No Acute Distress - Head Exam Head Exam: NORMOCEPHALIC - Eye Exam Eye Exam: Normal appearance. absent: Scleral icterus - ENT Exam ENT Exam: Mucous Membranes Moist - Neck Exam Neck Exam: Normal Inspection - Respiratory Exam Respiratory Exam: Decreased Breath Sounds, Rales, NORMAL BREATHING PATTERN. absent: Wheezes, Respiratory Distress - Cardiovascular Exam Cardiovascular Exam: +S1, +S2 - GI/Abdominal Exam GI & Abdominal Exam: Soft, Tenderness (lower right ). absent: Guarding, Normal Bowel Sounds, Rebound - Extremities Exam Extremities Exam: absent: Calf Tenderness, Pedal Edema - Neurological Exam Neurological Exam: Alert, Awake, Oriented x3 - Skin Skin Exam: Dry, Warm Assessment and Plan - Assessment and Plan (Free Text) Assessment: ASSESSMENT: Abdominal Pain/scrotal pain s/p bone scan : nwe osseous metastatic disease mainly affect axial skeleton s/p ct scan GB sludge, (+) lymphadenopathy as before H/O Bladder cancer Hematuria Resolved Hyperkalemia UTI, ESBL Chronic constipation CHF COPD CKD CAD w/ stents PLAN: continue Colace continue Miralax to BID, hold for stool>2/day on IV antibiotics on Lasix continue PPI on Prednisone monitor electrolytes and h/h off Plavix and ASA diet as tolerated urology FU Seen and discussed w/ Dr. Bal. <Fredi Bal V - Last Filed: 04/28/17 23:38> Objective - Vital Signs/Intake and Output Vital Signs (last 24 hours): Temp Pulse Resp BP Pulse Ox 97.7 F 61 15 130/65 96 04/28/17 09:10 04/28/17 09:10 04/28/17 09:10 04/28/17 09:45 04/28/17 10:00 - Labs Labs: 04/28/17 12:40 04/28/17 12:40 PT 11.2 Seconds (9.9-11.8) 04/23/17 12:00 INR 1.04 (0.93-1.08) 04/23/17 12:00 APTT 26.1 Seconds (23.7-30.8) 04/23/17 12:00 Attending/Attestation - Attestation I have personally seen and examined this patient.: Yes I have fully participated in the care of the patient.: Yes I have reviewed all pertinent clinical information, including history, physical exam and plan: Yes Notes (Text): this
[2017-04-28 12:55] LABS: BASO # 0.01 K/mm3 (0.0-2.0); BASO % 0.1 % (0.0-3.0); EOS # 0.1 (0.0-0.7); GRAN # 10.01 (1.4-6.5); GRAN % 82.4 % (50.0-68.0); HEMOGLOBIN 10.3 gm/dL (14.0-18.0); LYMPH # 0.6 (1.2-3.4); MEAN CELL VOLUME 87.2 fL (80.0-105.0); MEAN CORPUSCULAR HEMOGLOBIN 27.5 pg (25.0-35.0); MEAN CORPUSCULAR HGB CONC 31.5 g/dl (31.0-37.0); MEAN PLATELET VOLUME 10.2 fl (7.0-11.0); MONO # 1.4 (0.1-0.6); MONO % 11.5 % (1.0-6.0); PLATELET COUNT 195 10^3/uL (120.0-450.0); RBC 3.75 10^6/uL (3.5-6.1); RED CELL DISTRIBUTION WIDTH 14.6 % (11.5-14.5); WHITE BLOOD COUNT 12.2 10^3/ul (4.5-11.0)
[2017-04-28 12:56] LABS: ALB/GLOB RATIO 1.2 (1.1-1.8); ALBUMIN 3.3 g/dL (3.0-4.8); CALCIUM 8.4 mg/dL (8.4-10.5)
--- NOTE | 2017-04-28 15:32 | CP.PCM.PN ---
Subjective - Date & Time of Evaluation Date of Evaluation: 04/28/17 Time of Evaluation: 10:35 - Subjective Subjective: Comfortable, afebrile, not in distress. Objective - Vital Signs/Intake and Output Vital Signs (last 24 hours): Temp Pulse Resp BP Pulse Ox 97.7 F 70 19 145/65 99 04/27/17 17:55 04/27/17 17:55 04/27/17 17:55 04/27/17 17:55 04/27/17 17:55 Intake and Output: 04/28/17 04/28/17 06:59 18:59 Intake Total 720 Output Total 4150 Balance -3430 - Medications Medications: Current Medications Acetaminophen (Tylenol 325mg Tab) 650 mg PO Q4 PRN PRN Reason: Pain, Mild (1-3) Albuterol/Ipratropium (Duoneb 3 Mg/0.5 Mg (3 Ml) Ud) 3 ml IH [id number] [facility] Last Admin: 04/28/17 07:26 Dose: Not Given Amiodarone HCl (Cordarone) 200 mg PO DAILY [facility] Last Admin: 04/27/17 10:53 Dose: 200 mg Atorvastatin Calcium (Lipitor) 10 mg PO DIN [facility] Last Admin: 04/27/17 17:54 Dose: 10 mg Budesonide (Pulmicort Respules) 0.5 mg IH BIDRESP [facility] Last Admin: 04/28/17 07:26 Dose: Not Given Calcium Acetate (Phoslo) 667 mg PO DAILY [facility] Last Admin: 04/27/17 10:53 Dose: 667 mg Cholecalciferol (Vitamin D) 1,000 iu PO DAILY [facility] Last Admin: 04/27/17 10:53 Dose: 1,000 iu Digoxin (Lanoxin) 0.125 mg PO 1400 [facility] Last Admin: 04/27/17 15:15 Dose: 0.125 mg Docusate Sodium (Colace) 100 mg PO TID [facility] Last Admin: 04/27/17 17:54 Dose: 100 mg Furosemide (Lasix) 40 mg IVP DAILY [facility] Last Admin: 04/27/17 10:53 Dose: 40 mg Guaifenesin (Mucinex La) 600 mg PO BID [facility] Last Admin: 04/27/17 17:54 Dose: 600 mg Home Med (Home Med) 0 unit PO BID [facility] Last Admin: 04/27/17 17:54 Dose: 1 unit Hydromorphone HCl (Dilaudid) 1.5 mg IVP Q4H PRN PRN Reason: Pain, severe (8-10) Last Admin: 04/27/17 21:03 Dose: 1.5 mg Ceftazidime/Avibactam 1.25 gm/ (Sodium Chloride) 100 mls @ 50 mls/hr IVPB Q8 [facility] Stop: 04/30/17 14:01 Last Admin: 04/28/17 06:07 Dose: 50 mls/hr Sodium Chloride (Sodium Chloride 0.45%) 1,000 mls @ 80 mls/hr IV .[id number] [facility] Stop: 04/28/17 13:00 Insulin Human Regular (Humulin R Low) 0 units SC ACHS [facility] PRN Reason: Protocol Last Admin: 04/27/17 22:00 Dose: Not Given Levothyroxine Sodium (Synthroid) 125 mcg PO 0600 [facility] Montelukast Sodium (Singulair) 10 mg PO DAILY [facility] Last Admin: 04/27/17 10:53 Dose: 10 mg Ondansetron HCl (Zofran Inj) 4 mg IVP Q4H PRN PRN Reason: Nausea/Vomiting Last Admin: 04/23/17 18:49 Dose: 4 mg Pantoprazole Sodium (Protonix Ec Tab) 40 mg PO 1000 [facility] Last Admin: 04/27/17 10:53 Dose: 40 mg Polyethylene Glycol (Miralax) 17 gm PO BID [facility] Last Admin: 04/27/17 17:54 Dose: 17 gm Prednisone (Prednisone Tab) 10 mg PO DAILY [facility] Last Admin: 04/27/17 10:53 Dose: 10 mg Tiotropium [place] (Spiriva) 18 mcg IH DAILY [facility] Last Admin: 04/27/17 10:53 Dose: 18 mcg - Labs Labs: 04/26/17 09:50 04/26/17 09:50 PT 11.2 Seconds (9.9-11.8) 04/23/17 12:00 INR 1.04 (0.93-1.08) 04/23/17 12:00 APTT 26.1 Seconds (23.7-30.8) 04/23/17 12:00 - Constitutional Appears: Non-toxic, No Acute Distress - Head Exam Head Exam: NORMAL INSPECTION - Neck Exam Neck Exam: absent: Meningismus - Respiratory Exam Respiratory Exam: Decreased Breath Sounds - Cardiovascular Exam Cardiovascular Exam: +S1, +S2 - GI/Abdominal Exam GI & Abdominal Exam: Soft. absent: Tenderness Assessment and Plan - Assessment and Plan (Free Text) Plan: Assessment Consider lower urinary tract infection in a patient with indwelling Avendano catheter growing Carbapenem-resistant Klebsiella history of right foot necrotic ulcer with surrounding cellulitis UTI with Enterococcus and Klebsiella chronic renal failure history of DVT DM Prostate CA history of Enterococcus UTI atrial fibrillation S/P pacemaker and ICD placement Plan continue Avycaz day 4 and will repeat urine cx today; reviewed CT scan of the abdomen and pelvis which showed some mural thickening of the urinary bladder - should target 7-10 days of antibiotics will continue to follow clinically
--- NOTE | 2017-04-28 18:17 | CP.PCM.PN ---
<Devora Alvarado - Last Filed: 04/28/17 18:18> Subjective - Date & Time of Evaluation Date of Evaluation: 04/28/17 Time of Evaluation: 18:15 - Subjective Subjective: PGY-[address] Carballo Pt has refilled tranexamic acid Pt underwent port placement. tolerating procedure well. Urine clear yellow No acute complaint Objective - Vital Signs/Intake and Output Vital Signs (last 24 hours): Temp Pulse Resp BP Pulse Ox 97.7 F 61 15 130/65 96 04/28/17 09:10 04/28/17 09:10 04/28/17 09:10 04/28/17 09:45 04/28/17 10:00 Intake and Output: 04/28/17 04/28/17 06:59 18:59 Intake Total 720 Output Total 4150 Balance -3430 - Labs Labs: 04/28/17 12:40 04/28/17 12:40 PT 11.2 Seconds (9.9-11.8) 04/23/17 12:00 INR 1.04 (0.93-1.08) 04/23/17 12:00 APTT 26.1 Seconds (23.7-30.8) 04/23/17 12:00 - Constitutional Appears: No Acute Distress - Head Exam Head Exam: ATRAUMATIC, NORMAL INSPECTION, NORMOCEPHALIC - Eye Exam Eye Exam: EOMI, Normal appearance, PERRL. absent: Scleral icterus - ENT Exam ENT Exam: Mucous Membranes Moist - Respiratory Exam Respiratory Exam: Clear to Ausculation Bilateral, Wheezes (BENOIT). absent: Rales , Rhonchi - Cardiovascular Exam Cardiovascular Exam: REGULAR RHYTHM, +S1, +S2 - GI/Abdominal Exam GI & Abdominal Exam: Soft. absent: Tenderness - Extremities Exam Extremities Exam: Normal Capillary Refill. absent: Calf Tenderness, Pedal Edema Additional comments: schroeder intact. 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 Pt had hemauturia (hx icd, quadriple bypass) , improving. He is in contact isolation for ESBL,Carbapenem-resistant Klebsiella UTI, complicated, indwelling Schroeder catheter. Transamininitis with abdominal pain persists. Clots likely from microscopic hematuria were found in schroeder so started continuous bladder irrigation, and improved today Abdominal pain - improves Hematuria with Clots in urine - resolved, s/p CBI Gross Hemautria - resolved Due to prostate ca - likely referred pain from origin - hold ASA and Plavix. on home tranexamc acid 650 mg 2 tablets bid UTI, complicated, indwelling Schroeder catheter growing Carbapenem-resistant Klebsiella history of right foot necrotic ulcer with surrounding cellulitis Leukocytosis - Duoneb, prednisone taper - switch Merrem to Avycaz (day 5) and pending repeat urine cx (avoid Amikacin), target 7-10 days of antibiotics - CT scan of the abdomen and pelvis which showed mural thickening of the urinary bladder Transaminitis - possible amiodarone vs lipitor Constipation - s/p lactulose. Had BM 2 days ago. - CT negative of acute GI event. 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 Carballo <Rogelio Carballo P - Last Filed: 04/30/17 00:41> Objective - Vital Signs/Intake and Output Vital Signs (last 24 hours): Temp Pulse Resp BP Pulse Ox 97.7 F 61 15 130/65 96 04/28/17 09:10 07/14/17 09:10 04/28/17 09:10 04/28/17 09:45 04/28/17 10:00 - Labs Labs: 04/28/17 12:40 04/28/17 12:40 PT 11.2 Seconds (9.9-11.8) 04/23/17 12:00 INR 1.04 (0.93-1.08) 04/23/17 12:00 APTT 26.1 Seconds (23.7-30.8) 04/23/17 12:00 Attending/Attestation - Attestation I have personally seen and examined this patient.: Yes I have fully participated in the care of the patient.: Yes I have reviewed all pertinent clinical information, including history, physical exam and plan: Yes
--- NOTE | 2017-04-28 22:31 | PN ---
DATE: HISTORY: The patient is in the [facility] in [place]. The patient was admitted with abdominal pain, hematuria, history of prostatic carcinoma with metastatic disease in the abdomen involving the lymph nodes. The patient also has past history of coronary artery disease, congestive heart failure, congestive cardiomyopathy. The patient has chronic obstructive lung disease, diabetes mellitus, hypothyroidism. The patient has osteoarthritis. The patient is seen this morning. He is getting prepared for port to be put in by Dr. Sixto Allen. PHYSICAL EXAMINATION: VITAL SIGNS: Today, the pulse is 70, blood pressure 145/65, respirations 19 per minute, O2 sat 99% on room air, his temperature 97.7. GENERAL: The patient is lying flat in bed. HEENT: His head is normocephalic. He has clinically diagnosed basal cell lesion, particularly on the forehead area. NECK: Supple, and the JVP is flat. Thyroid is not clinically enlarged. CARDIOPULMONARY: Heart, normal sinus rhythm. The patient has pacemaker rhythm too. LUNGS: Breath sounds vesicular. Adventitious sounds, crepitations, and rhonchi heard. ABDOMEN: Soft, tenderness diffusely present. No localizing signs. SEMICONDUCTOR BONDER: The patient is conscious, concerned, and he is very rational asking questions about his condition. His motor and sensory functions are clinically normal. The patient is able to get out of bed and lie in a recliner, not able to walk at this time. MEDICATIONS: His list of medications consists of insulin coverage. The patient is on ceftazidime/avibactam, which is an antibiotic for the infection in the abdomen and the bladder. The patient is on amiodarone 200 mg daily. The patient is on Dilaudid 1.5 mg IV q.4 hours p.r.n. for pain. The patient is on Synthroid 100 mcg daily, digoxin 125 mcg daily, Lasix 40 mg IV push daily. The patient is on Lipitor 10 mg daily, MiraLAX 17 grams daily. The patient gets calcium acetate 667 mg daily, prednisone 10 mg daily, pantoprazole 40 mg daily. The patient is on Pulmicort twice a day. The patient is on DuoNeb q.6 hours. The patient is on Singulair 10 mg daily, vitamin D cholecalciferol 1000 international units p.o. daily. The patient is on insulin coverage as mentioned. The patient is going to have the port put in and the patient will continue current management and possibly will be considered for discharge and admission to the transitional care unit for further antibiotic treatment and physical therapy. His overall prognosis is guarded, condition is improving. We will continue care and the patient has multiple consultants providing service for him because of his multiple medical problems. Giselle Polk MD
--- NOTE | 2017-04-28 23:01 | PN ---
DATE: 04/28/2017 REASON FOR CONSULTATION: Followup cardiac evaluation and history of coronary artery disease. BRIEF CLINICAL HISTORY: This is an 87-year-old male with a past medical history significant for coronary artery disease, status post CABG, admitted with lower abdominal pain. Avendano catheter clogged, was flushed and continued CBI. Now, patient is going to Interventional Radiology for Port-A-Cath for change of port. Denies any chest pain, shortness of breath, or any palpitations. PHYSICAL EXAMINATION: VITAL SIGNS: Temperature afebrile, heart rate 70, blood pressure 145/65. HEENT: PERRLA. Extraocular muscles intact. NECK: Supple. No carotid bruits or thyromegaly. LUNGS: Clear to auscultation. CARDIOPULMONARY: S1, S2 regular. ABDOMEN: Soft. EXTREMITIES: Clubbing, cyanosis negative. LABORATORY DATA: Blood workup as follows: WBC 11, hemoglobin 10.2, hematocrit 33.3, platelet count 207. Chemistry shows sodium 130, potassium 4.0, chloride 91, carbon dioxide 33, anion gap of 11, BUN 32, creatinine 1.2. TSH 5.14. IMPRESSION: Hypothyroidism, coronary artery disease, coronary artery bypass graft, pre and post coronary artery bypass graft percutaneous transluminal coronary angioplasty, paroxysmal atrial fibrillation, history of deep venous thrombosis in the past, history of prostate carcinoma with metastasis, indwelling catheter, history of multiple urinary tract infections, Avendano catheter clogged, now continuous bladder irrigation. No anginal symptoms at this time. RECOMMENDATIONS: The patient is going for Port-A-Cath change, continue antibiotic, continue amiodarone for paroxysmal atrial fibrillation, continue *------*, continue gentle Lasix, continue digoxin. The patient is on levothyroxine 100 mcg, we will increase to 125. Followup lab pending. Thank you Dr. Polk for the opportunity in taking care of the patient, Ziggy Amador. Mely Chavarria MD cc: Giselle Polk MD
[2017-04-29] MEDS ORDERED: Levothyroxine 125 MCG TAB PO SCH (06:00)
--- NOTE | 2017-04-29 08:48 | PN ---
SUBJECTIVE: Patient is admitted with infection, abdominal pain, uncontrolled diabetes, cough, shortness of breath. Patient was evaluated in the emergency room and admitted and the patient is on antibiotic treatment. Patient is also getting treatment for hematuria, which is profuse at times. Patient has irrigation process going on of the urinary bladder. Patient also gets medication for diabetes, hypothyroidism, chronic obstructive lung disease. Patient is on treatment for congestive heart failure, hypertension. ALLERGIES: PATIENT IS ALLERGIC TO IODINE, DYE AND LEVOFLOXACIN. PHYSICAL EXAMINATION VITAL SIGNS: This morning, the pulse is 60 per minute, blood pressure 149/68, respirations 20 and O2 saturation is 96% on room air. HEENT: Head is normocephalic. He has a lesion on his forehead, looks like might be a small basal cell lesion. NECK: Thyroid is not clinically enlarged. Patient's JVP is flat. No lymphadenopathy in the neck. HEART: Normal sinus rhythm. He has a pacemaker and the EKG shows functioning pacemaker rhythm. LUNGS: Trachea central. Breath sounds vesicular. Bilateral crepitation and rhonchi as well as * * are diminished bilaterally. ABDOMEN: Soft, decreased tenderness in all 4 quadrants of the abdomen. There is no rebound tenderness. SHAMPOO ASSISTANT: He is conscious, rational, oriented, very disturbed mentally due to the fact that he has this chronic recurrent illness. MEDICATIONS: Patient's medication consists of avibactam and ceftazidime antibiotic that have been introduced recently for the patient's benefit. Patient is on Colace 100 mg three times a day. Patient is on amiodarone 200 mg daily. Patient is on Dilaudid 1.5 mg IV q. 4 hours for pain. Patient is on DuoNeb for respiratory treatment, insulin cartridge for diabetes, digoxin 125 mcg daily, Lasix 40 mg IV daily. Patient is on Lipitor 10 mg daily, MiraLax 17 g at night daily. Patient is on PhosLo 667 mg daily. Patient is on prednisone 10 mg daily. Patient is on pantoprazole 40 mg daily, Pulmicort b.i.d., montelukast daily 10 mg. Patient is on Spiriva 18 mcg daily, Synthroid 100 mcg daily, vitamin D 1000 International Units. Patient is on Zofran for nausea and vomiting p.r.n. 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 Patient has pain in the perineal area. The patient's general condition is barely improving at this time. The patient needs acute care. Knowing the patient can get out of the bed, he is hooked up to IVs and he had difficulty in walking and to stand. We will request physical therapy for the patient and also evaluation for transfusion and care. The patient's consultations are done with Dr. Masterson, urologist; Dr. Lozano, tube machine operator helper; Dr. Ohara, hot room attendant; * *, molder pipe covering; Dr. Hernandez, Infectious Disease customer service consultant. Patient is also getting respiratory treatment as mentioned before. His overall prognosis is guarded. Condition is mild. Slight improvement is noted. We will continue current management and follow up. Giselle Polk MD
--- NOTE | 2017-05-01 11:00 | PN ---
REASON FOR CONSULTATION: Followup cardiac evaluation and admitted with lower abdominal pain. BRIEF CLINICAL HISTORY: This is an 87-year-old male with a past medical history significant for coronary artery disease, status post PTCA, status post CABG as well as AICD; chronic renal insufficiency; history of prostate CA, indwelling Avendano catheter, admitted with *------*. The patient's catheter blocked and feeling a lot of pain now. The patient on continuous bladder irrigation and feels better. Denies any chest pain, shortness of breath, or any palpitation. PHYSICAL EXAMINATION: VITAL SIGNS: Temperature afebrile; heart rate 69, blood pressure 138/63. HEENT: PERRLA, intact. NECK: Supple. No carotid bruit or thyromegaly. CHEST: Clear to auscultation. HEART: S1 and S2, regular. ABDOMEN: Soft. EXTREMITIES: Clubbing and cyanosis negative. BLOOD WORKUP: WBC is 11, hemoglobin 10.2, hematocrit 33.3, platelet count 207. Chemistry shows sodium 130, potassium 4.0, chloride 91, carbon dioxide at 33, anion gap of 11, BUN 32, creatinine 1.2. IMPRESSION: Indwelling catheter, urinary tract infection, catheter blocked, abdominal pain, and now continuous bladder irrigation and feels better; coronary artery disease, coronary artery bypass graft; diabetes mellitus, hyperlipemia, history of nonischemic myocardial infarction in the past; paroxysmal atrial fibrillation. RECOMMENDATION: Continue heparin, continue digoxin. History of recently generator change; continue digoxin; continue gentle diuresis, continuous bladder irrigation. We will follow the *------* stable. No further interventions from cardiac point of view. No anginal symptoms now. The patient is stable on medical treatment.
--- NOTE | 2017-05-11 11:26 | CONS ---
Physician - Dr. Fredi Bal Patient - Ziggy Amador - 1930 DOS: 04/23/2017 ID - [id number] Reason for Consultation Abd pain, leukocytosis, constipation HPI 87 year old pt came into ER with complaints of abdominal pain x 4 days that has gotten progressively worse. He is experiencing associated constipation. Patient was found to have an elevated WBC of 21,000. He also had an episode of hematuria. He has had UTIs in the past and has been on tranexamic acid for hematuria. PMHx - DM, prostate CA, chronic indwelling schroeder catheter, CAD, IA, gallstones, COPD, hyporthyroidism. SHx - Multiple angioplasties, cataract surgery, cardiac stents, 4 quadruple bypass in the past 3 years, indwelling schroeder catheter placement Allergies - IV contrast, Levaquin. Both cause anaphylactic reactions. Medications- Tranexamic acid FHx - Non-contributing Sx - no smoking, no EtOH ROS Abd pain positive; all other systems reviewed. Physical Exam Laying in bed, in NAD, afebrile. BP - 138/43 RR - 20 Temp - 98.1 O2 sat - 96% HEENT - atraumatic Neck - supple Heart - reveals S1, S2 Respiratory - clear lungs corbett B/L Abd - soft, mild suprapubic and RT sided tenderness Extremities - no edema Neurologic - able to move all extremities Labs WBC - 21.6 H & H - 11.2, 35.2 Platelets - 255 CO2 - 27 BUN - 64 Creatine - 1.5 AST - 147 ALT - [address] abd/pelvis revealed gallstones; significant amount of stool present on right side of colon. Impression 87 y/o patient with a Hx of prostate CA, chronic indwelling schroeder catheter, admitted with a 4 day Hx of abdominal pain, constipation. Has WBC of 21.6. Clinically, patient also has significant amount of stool present in RT side of colon. R/O probable UTI. Patient has been started on Meropenem. Patient is on chronic, early-on Prednisone therapy. CT also shows some thickening of the rectal area; R/O C. Diff. Will send request for stool. Continue Abx. We will start the patient on Miralax. Will continue to closely follow patient's care. Case discussed with PCP, oncologist Dr. Chiu ___ covering Dr. Hunt. MD ANNABELLA Clarke
== END 2017-04-28 13:30 | DRG 699 ==
LOC: ED 11:41 → ERH 14:21 → 2RNO 15:17 → OBSVTOIN 04-24 08:04 → 5RSO 04-25 13:43
PROVIDERS: ADMIT Internal Medicine; ATTEND Internal Medicine
PROC: 05H533Z Insertion of Infusion Device into Right Subclavian Vein, Percutaneous Approach (ICD-10-PCS; principal; 2017-04-28)
DX: T83.511A Infection and inflammatory reaction due to indwelling urethral catheter, initial encounter (principal); J44.1 Chronic obstructive pulmonary disease with (acute) exacerbation; N17.9 Acute kidney failure, unspecified; C77.9 Secondary and unspecified malignant neoplasm of lymph node, unspecified; C78.6 Secondary malignant neoplasm of retroperitoneum and peritoneum; I13.0 Hypertensive heart and chronic kidney disease with heart failure and stage 1 through stage 4 chronic kidney disease, or unspecified chronic kidney disease; E11.22 Type 2 diabetes mellitus with diabetic chronic kidney disease; C79.51 Secondary malignant neoplasm of bone; I50.42 Chronic combined systolic (congestive) and diastolic (congestive) heart failure; N02.9 Recurrent and persistent hematuria with unspecified morphologic changes; E87.1 Hypo-osmolality and hyponatremia; L03.115 Cellulitis of right lower limb; I48.0 Paroxysmal atrial fibrillation; T17.990A Other foreign object in respiratory tract, part unspecified in causing asphyxiation, initial encounter; E11.65 Type 2 diabetes mellitus with hyperglycemia; N39.0 Urinary tract infection, site not specified; C61 Malignant neoplasm of prostate; Z95.1 Presence of aortocoronary bypass graft; E03.9 Hypothyroidism, unspecified; I25.10 Atherosclerotic heart disease of native coronary artery without angina pectoris; K59.09 Other constipation; N18.3 Chronic kidney disease, stage 3 (moderate); R33.9 Retention of urine, unspecified; M19.049 Primary osteoarthritis, unspecified hand; E87.5 Hyperkalemia; I25.5 Ischemic cardiomyopathy; B96.1 Klebsiella pneumoniae [K. pneumoniae] as the cause of diseases classified elsewhere; E11.621 Type 2 diabetes mellitus with foot ulcer; L97.519 Non-pressure chronic ulcer of other part of right foot with unspecified severity; E11.628 Type 2 diabetes mellitus with other skin complications; R09.02 Hypoxemia; D64.9 Anemia, unspecified; Y84.6 Urinary catheterization as the cause of abnormal reaction of the patient, or of later complication, without mention of misadventure at the time of the procedure; Z95.810 Presence of automatic (implantable) cardiac defibrillator; Z95.5 Presence of coronary angioplasty implant and graft; I25.2 Old myocardial infarction; Z86.718 Personal history of other venous thrombosis and embolism; Z79.4 Long term (current) use of insulin; Z85.51 Personal history of malignant neoplasm of bladder

== ENCOUNTER 2017-04-28 13:35 | Inpatient (IN) | payer OTHER, MEDICARE ==
[2017-04-28] MEDS: Insulin Human NPH/Reg 70/30 Vial(3 ml) SC SCH ×2 (15:08→23:08)
[2017-04-28] MEDS: HYDROmorphone 1 mg/ml ISec IVP PRN ×2 (15:46→21:59)
[2017-04-28] MEDS: Sodium Chloride 0.45% 1,000 ML IV SCH (15:46)
[2017-04-28] MEDS ORDERED: Home Med 1 UNIT PO SCH (18:00)
[2017-04-28] MEDS ORDERED: TRANEXAMIC ACID PO SCH ×2 (18:00)
[2017-04-28] MEDS: TRANEXAMIC ACID 650 MG PO SCH (18:18)
[2017-04-28] MEDS: POLYETHYLENE GLYCOL 3350 17 GM/Dose PACKET PO SCH (18:20)
[2017-04-28] MEDS: guaiFENesin 600 mg ER Tab PO SCH (18:21)
[2017-04-28] MEDS: Albuterol-Ipratrop 3 mg / 0.5 (3 ml) UD IH SCH (21:27)
[2017-04-28] MEDS: Budesonide 0.5 mg/2 ml Inhal Susp UD IH SCH (21:27)
[2017-04-29] MEDS: Albuterol-Ipratrop 3 mg / 0.5 (3 ml) UD IH SCH ×4 (02:15→19:57)
[2017-04-29] MEDS: HYDROmorphone 1 mg/ml ISec IVP PRN ×2 (02:49→15:40)
[2017-04-29] MEDS: Pantoprazole 40 mg EC Tab PO SCH (06:31)
[2017-04-29] MEDS: Levothyroxine 125 MCG TAB PO SCH (06:31)
--- NOTE | 2017-04-29 07:35 | CON ---
DATE: 04/28/2017 CHIEF COMPLAINT: Shortness of breath and abdominal pain. HISTORY OF PRESENT ILLNESS: This is an 87-year-old male, who is well known to me. The patient was recently hospitalized with persistent gross hematuria. He has a history of metastatic prostate cancer, which is hormonally not sensitive. He has COPD and coronary artery disease. He has been in [facility] for the past year or so with the progression of disease and multiple readmissions. He presented again now after few days at home complaining of worsening abdominal pain. He was having severe constipation. He was having some shortness of breath as well. He was admitted, no original consultation now was called but then per nursing called *------* plan, which we discussed and this patient has been doing well during his hospitalization. Currently, the Avendano catheter is on CBI. He has been irrigated few times with removal of some clots and a bladder irrigation is now running clear. There is a plan to transfer him to the transitional care unit. PAST MEDICAL HISTORY: Significant for; 1. Chronic heart failure. 2. COPD. 3. Coronary artery disease. 4. Hypothyroidism. 5. Metastatic prostate cancer. MEDICATIONS: Currently include; 1. Ceftazidime. 2. Colace. 3. Amiodarone. 4. Dilaudid. 5. Albuterol. 6. Fentanyl. 7. Heparin coverage. 8. Insulin coverage. 9. Lanoxin. 10. Lasix. 11. Lipitor. 12. MiraLax. 13. Mucinex. 14. PhosLo. 15. Prednisone. 16. Protonix. 17. Pulmicort. 18. Singulair. 19. Spiriva. 20. Synthroid. 21. Tylenol. ALLERGIES: ALLERGIC TO IV CONTRAST AND LEVAQUIN. FAMILY HISTORY: Noncontributory. SOCIAL HISTORY: Lives at home. No smoking or ETOH use. REVIEW OF SYSTEMS: The patient complains of weakness, lethargy, headaches, shortness of breath, dizziness, leg swelling, abdominal pain, groin pain, urinary retention, gross hematuria, back pain, knee pain, and difficulty ambulating. He denies any fever or chills. Denies any current chest pain. PHYSICAL EXAMINATION: GENERAL: The patient is awake, and alert. He is in no acute distress. VITAL SIGNS: Afebrile, temperature of 97.7, blood pressure 139/57, pulse of 61, and respirations of 16. NECK: Supple. There is no adenopathy. LUNGS: Exam of the chest reveals normal inspiratory effort. CARDIAC: Exam shows positive S1 and S2. There is moderate peripheral edema noted. ABDOMEN: The abdomen is soft. No tenderness, mild distention. The patient complaining of pain in his right groin region. There is no palpable mass. There is no obvious hernia. No incarceration. There is no rebound or guarding. There is no CVA tenderness. Phallus is normal. Avendano catheter is in place and is draining clear urine, on CBI. Scrotum is normal. Testes are bilaterally descended; atrophic, no masses. Epididymis is normal. LABORATORY DATA: WBC count was 21.6 on admission, down to 12.2; GFR of 48, blood cultures were negative. Urine cultures grew Klebsiella pneumoniae which is resistant to piperacillin and tazobactam, was sensitive to amikacin and is ESBL positive. RADIOLOGIC EXAM: The patient had a CT scan of the abdomen and pelvis, which showed multiple sclerotic metastatic lesions. Multilevel disc degeneration, mural thickening of the bladder. There were no enlarged lymph nodes seen. Kidney showed no hydronephrosis or solid mass. ASSESSMENT AND PLAN: This is an 87-year-old male with Castrate-resistant metastatic prostate cancer. Urologically, a Avendano catheter is currently draining clear on slow continuous bladder irrigation. I would continue him on continuous bladder irrigation at this point. As for the prostate cancer, the patient had been on Zytiga and prednisone. He failed Xtandi, as he could not tolerate it. He has been seen by Dr. Carballo from Oncology. It is unclear whether patient can tolerate the treatments given his poor cardiovascular pulmonary status. For now, I would continue him on medication as per Oncology. As for the gross hematuria, the patient to be irrigated as needed at this time. Avendano catheter should remain indwelling. He is on antibiotic for the urinary tract infection. If patient continues to have gross hematuria and clots, he will need to go back to the operating room for a repeat cystoscopy and I will attempt to fulgurate his prostatic fossa and bladder neck region as this appears on prior study to be the side of the bleeding. He is in extremely fragile shape at this point from a cardiovascular standpoint, so I would try to avoid any invasive procedures unless necessary. Thank you for allowing us to participate in the care of this patient. We will continue to follow him with you. His conditions remains guarded. Eddie Louise MD
[2017-04-29] MEDS: Budesonide 0.5 mg/2 ml Inhal Susp UD IH SCH ×2 (07:48→19:57)
[2017-04-29] MEDS: Insulin Human NPH/Reg 70/30 Vial(3 ml) SC SCH ×4 (07:54→21:58)
[2017-04-29] MEDS: Sodium Chloride 0.45% 1,000 ML IV SCH (08:34)
[2017-04-29] MEDS ORDERED: Tiotropium 18 mcg Cap For Inhalation IH SCH (10:00)
[2017-04-29] MEDS: POLYETHYLENE GLYCOL 3350 17 GM/Dose PACKET PO SCH ×2 (10:31→18:04)
[2017-04-29] MEDS: guaiFENesin 600 mg ER Tab PO SCH ×2 (10:33→18:05)
[2017-04-29] MEDS: TRANEXAMIC ACID 650 MG PO SCH ×2 (10:45→18:03)
--- NOTE | 2017-04-29 11:23 | CON ---
DATE OF CONSULTATION: 04/28/2017 REASON FOR CONSULTATION: Anemia of chronic kidney disease, chronic kidney disease stage IV, hematuria. HISTORY OF PRESENTING ILLNESS: An 87-year-old male known to me from recent evaluation on the medical site. The patient was admitted with shortness of breath, cough, lower abdominal pain. He was found to have UTI. He was also found to have hematuria. The patient has a history of bladder cancer. He was also found to have acute kidney injury superimposed on his chronic kidney disease stage IV. He was found to be hyponatremic. Currently the patient is on bladder irrigation. His hemoglobin is 10.5. PAST MEDICAL AND SURGICAL HISTORY: NIDDM, hypertension, CAD, CABG, AICD, prostate cancer, chronic kidney disease stage III/IV, paroxysmal AFib, COPD, recurrent UTI, recurrent hematuria. FAMILY HISTORY: Noncontributory. SOCIAL HISTORY: No smoking, no alcohol use, no IV drug abuse. ALLERGIES: LEVAQUIN AND CONTRAST. CURRENT MEDICATIONS: Reviewed. REVIEW OF SYSTEMS: Pertinent positive as mentioned in the history of presenting illness, rest unremarkable. PHYSICAL EXAMINATION: GENERAL: Elderly male sitting in bed. VITAL SIGNS: Blood pressure 124/64, heart rate 74, respiratory rate 18, temperature 98. HEENT: Normocephalic, atraumatic. Positive pallor. NECK: Supple. No JVD. LUNGS: Bilateral rhonchi. CARDIAC: S1 and S2, irregularly irregular, positive murmur, no rub. ABDOMEN: Soft, tenderness in the lower abdomen, bowel sounds present. EXTREMITIES: Trace lower extremity edema. INTAKE AND OUTPUT: Not charted. LABORATORY DATA: WBC 12.2, hemoglobin 10, hematocrit 33, platelets 195. Sodium 131, potassium 3.1, chloride 93, CO2 of 30, BUN 32, creatinine 1.4, glucose 262. CURRENT MEDICATIONS: Bladder irrigation. ASSESSMENT AND PLAN: 1. Anemia, multifactorial, secondary to blood loss, chronic kidney disease. 2. [id number] diabetes mellitus. 3. Hypertension. 4. Bladder cancer. 5. Coronary artery disease, coronary artery bypass graft, congestive heart failure, . PLAN: 1. Continue bladder irrigation. 2. Continue outpatient medications. 3. Monitor electrolytes. 4. Continue PT. Thank you for the courtesy of this consultation. Marianne Lozano MD [facility] # [id number]
[2017-04-29 11:52] VITALS: BMI 25.2
[2017-04-29] MEDS: Digoxin 125 mcg (0.125 mg) Tab PO SCH (14:14)
--- NOTE | 2017-04-29 16:13 | HP ---
SUBJECTIVE: He is seen in the transition care unit at [facility] in [place]. The patient is an 87-year-old white male. He was admitted from the regular medical floor after being discharged for further treatment. The patient is getting treatment for abdominal infection associated with carcinoma of the prostate, metastatic disease to the lymph nodes in the abdomen. The patient has symptoms of infection continuing. The patient is on antibiotics at this time. The patient's past history is significant in that he has a history of ALLERGY TO IODINE DYE and also LEVOFLOXACIN. The patient has history of congestive cardiomyopathy, congestive heart failure, chronic obstructive lung disease. The patient has history of hypothyroidism. History of diabetes mellitus. The patient has history of carcinoma of the prostate as mentioned before with metastatic disease now. The patient also has a history of degenerative arthritis and recurrent infection. The patient has been subjected to multiple medical admissions in the past. He has a cardiac pacemaker for congestive cardiomyopathy and arrhythmia. PHYSICAL EXAMINATION: VITAL SIGNS: His vital signs this morning, his pulse is 67, blood pressure 145/57, respirations of 22, O2 saturation 96% on 2 L of oxygen nasal canula. The patient's temperature 97.6. HEENT: Head is normocephalic. The patient has nondescript lesion on the forehead area consistent with possible basal cell carcinoma. NECK: The JVP is flat clinically. Thyroid is not enlarged clinically. Lymph nodes are not palpable in the neck. LUNGS: The trachea is central. Breath sounds are vesicular. The patient has adventitious sounds heard, rhonchi and crepitations, scattered. Breath sounds are diminished bilaterally. HEART: The patient has normal sinus rhythm, pacemaker rhythm. The patient has his cardiac pacemaker. He is on demand. There are no murmurs. No pericardial rub. ABDOMEN: The abdomen is mildly distended, there is diffuse tenderness. The patient has no localizing signs. CENTRAL NERVOUS SYSTEM: He is conscious. He is rational, oriented. Sensory functions and motor functions are within normal limits. The patient's reflexes are normal. His gait is abnormal due to weakness; otherwise, the patient is able to ambulate. MEDICATIONS: His list of medication consists of antibiotics which is ceftazidime/avibactam. He gets that every 8 hours. The patient is on amiodarone. The patient is on Duoneb, Pulmicort, digoxin, Lasix, pantoprazole,Lipitor, MiraLax, calcium acetate, prednisone. The patient is on Singulair, Synthroid, and he is on morphine 1.5 mg q.4 hours p.r.n. for pain. LABORATORY DATA: The patient does not have any recent lab work, but bloodwork done on the acute floor shows that the patient has renal insufficiency and elevated white count. We will follow up with new blood work starting tomorrow. In the meantime, the patient is covered with insulin for his diabetes and he gets his antibiotics and physical therapy. His overall prognosis is guarded, condition is improving. We will follow up. Giselle Polk MD MTDD
--- NOTE | 2017-04-29 16:20 | CP.PCM.CON ---
History of Present Illness - History of Present Illness History of Present Illness: 87 year old male with PMH of right foot necrotic ulcer with cellulitis, UTI with Enterococcus and Klebsiella, chronic renal failure, history of DVT, DM, Prostate CA, history of Enterococcus UTI, atrial fibrillation, S/P pacemaker and defibrillator placement, chronic CHF, COPD, hypothyroidism was initially admitted in [facility] because of abdominal pain. He was then found to have Carbapenem-resistant Klebsiella and has been on antibiotics for this. He is now transferred to [facility] [[email or web address] for continued medical therapy and physical rehab. Infectious Diseases consult is requested to further evaluate and manage. Patient is still having abdominal pain but a little better. He denies fever or chills, no nausea or vomiting, no headache or dizziness, no bleeding from his Avendano catheter, occasional suprapubic discomfort, no diarrhea, no cough or colds , no dysphagia. Review of Systems - Review of Systems All systems: reviewed and no additional remarkable complaints except (as per HPI ) Past Patient History - Infectious Disease Hx of Infectious Diseases: None - Tetanus Immunizations Tetanus Immunization: Unknown - Past Social History Smoking Status: Never Smoked - CARDIAC Hx Cardiac Disorders: Yes Hx Congestive Heart Failure: Yes - PULMONARY Hx Chronic Obstructive Pulmonary Disease (COPD): Yes - NEUROLOGICAL Hx Neurological Disorder: No - HEENT Hx HEENT Problems: Yes Hx Cataracts: Yes (WITH b/t SURGERY) - RENAL Hx Renal Failure: Yes - ENDOCRINE/METABOLIC Hx Diabetes Mellitus Type 2: Yes Hx Hypothyroidism: Yes - HEMATOLOGICAL/ONCOLOGICAL Hx Blood Transfusions: Yes Hx Blood Transfusion Reaction: No - INTEGUMENTARY Hx Dermatological Problems: No - MUSCULOSKELETAL/RHEUMATOLOGICAL Hx Falls: No - GASTROINTESTINAL Hx Gastrointestinal Disorders: Yes - GENITOURINARY/GYNECOLOGICAL Hx Reproductive Disorders: No - PSYCHIATRIC Hx Emotional Abuse: No Hx Physical Abuse: No Hx Substance Use: No - SURGICAL HISTORY Hx Surgeries: Yes (cardiac stents, CABG, defibrillator) - ANESTHESIA Hx Anesthesia Reactions: No Hx Malignant Hyperthermia: No Meds Allergies/Adverse Reactions: Allergies Allergy/AdvReac Type Severity Reaction Status Date / Time Iodinated Contrast- Oral and Allergy ANAPHYLAXIS Verified 04/23/17 11:49 IV Dye levofloxacin [From Levaquin] Allergy ANAPHYLAXIS Verified 04/23/17 11:49 - Medications Medications: Current Medications Acetaminophen (Tylenol 325mg Tab) 650 mg PO Q4H PRN; Protocol PRN Reason: Pain, Mild (1-3) Albuterol/Ipratropium (Duoneb 3 Mg/0.5 Mg (3 Ml) Ud) 3 ml IH [id number] JEANA PRN Reason: Protocol Last Admin: 04/29/17 02:15 Dose: Not Given Amiodarone HCl (Cordarone) 200 mg PO DAILY JEANA PRN Reason: Protocol Atorvastatin Calcium (Lipitor) 10 mg PO DIN JEANA PRN Reason: Protocol Last Admin: 04/28/17 18:20 Dose: 10 mg Budesonide (Pulmicort Respules) 0.5 mg IH [id number] JEANA PRN Reason: Protocol Last Admin: 04/28/17 21:27 Dose: 0.5 mg Calcium Acetate (Phoslo) 667 mg PO DAILY JEANA PRN Reason: Protocol Cholecalciferol (Vitamin D) 1,000 iu PO DAILY JEANA PRN Reason: Protocol Digoxin (Lanoxin) 0.125 mg PO 1400 JEANA PRN Reason: Protocol Docusate Sodium (Colace) 100 mg PO TID JEANA PRN Reason: Protocol Last Admin: 04/28/17 18:17 Dose: 100 mg Furosemide (Lasix) 40 mg IVP DAILY JEANA PRN Reason: Protocol Guaifenesin (Mucinex La) 600 mg PO BID JEANA PRN Reason: Protocol Last Admin: 04/28/17 18:21 Dose: 600 mg Home Med (Home Med) 2 unit PO BID JEANA PRN Reason: Protocol Last Admin: 04/28/17 18:18 Dose: 2 unit Hydromorphone HCl (Dilaudid) 1.5 mg IVP Q4H PRN; Protocol PRN Reason: Pain, severe (8-10) Last Admin: 04/29/17 02:49 Dose: 1.5 mg Sodium Chloride (Sodium Chloride 0.45%) 1,000 mls @ 70 mls/hr IV .[id number] [facility] Last Admin: 04/28/17 15:46 Dose: 70 mls/hr Ceftazidime/Avibactam 1.25 gm/ (Sodium Chloride) 100 mls @ 50 mls/hr IVPB Q8 [facility] Stop: 05/03/17 14:01 Last Admin: 04/28/17 21:54 Dose: 50 mls/hr Levothyroxine Sodium (Synthroid) 125 mcg PO 0600 JEANA PRN Reason: Protocol Montelukast Sodium (Singulair) 10 mg PO DAILY JEANA PRN Reason: Protocol Ondansetron HCl (Zofran Inj) 4 mg IVP Q4H PRN; Protocol PRN Reason: Nausea/Vomiting Pantoprazole Sodium (Protonix Ec Tab) 40 mg PO 0600 JEANA PRN Reason: Protocol Polyethylene Glycol (Miralax) 17 gm PO BID JEANA PRN Reason: Protocol Last Admin: 04/28/17 18:20 Dose: 17 gm Prednisone (Prednisone Tab) 10 mg PO DAILY JEANA PRN Reason: Protocol Tiotropium Olden (Spiriva) 18 mcg IH DAILY JEANA PRN Reason: Protocol Physical Exam - Constitutional Appears: Non-toxic, No Acute Distress - Head Exam Head Exam: NORMAL INSPECTION - ENT Exam ENT Exam: Mucous Membranes Moist - Neck Exam Neck exam: Negative for: Lymphadenopathy, Meningismus - Cardiovascular Exam Cardiovascular Exam: +S1, +S2 - GI/Abdominal Exam GI & Abdominal Exam: Soft. absent: Tenderness Results - Vital Signs Recent Vital Signs: Last Vital Signs Temp 98.2 F 04/28/17 16:00 Pulse 69 04/29/17 00:47 Resp 20 04/28/17 16:00 BP 126/62 04/28/17 16:00 Pulse Ox 96 04/28/17 16:00 Assessment & Plan - Assessment and Plan (Free Text) Plan: Assessment Consider lower urinary tract infection in a patient with indwelling Avendano catheter growing Carbapenem-resistant Klebsiella history of right foot necrotic ulcer with surrounding cellulitis UTI with Enterococcus and Klebsiella chronic renal failure history of DVT DM Prostate CA history of Enterococcus UTI atrial fibrillation S/P pacemaker and ICD placement Plan continue Avycaz day 5 and follow up repeat urine cx reviewed CT scan of the abdomen and pelvis which showed some mural thickening of the urinary bladder - should target 7-10 days of antibiotics follow up Urology plans for cystoscopy will continue to follow clinically
--- NOTE | 2017-04-29 20:52 | PN ---
DATE OF SERVICE: 04/29/2017 LOCATION: The patient is currently in room #302, bed #1, in the TCU. REASON FOR CONSULTATION: Ongoing followup for the patient with hormone refractory prostate cancer with recurrent hematuria, currently on tranexamic acid 650 mg tablets 2 tablets b.i.d. to prevent recurrent bleeding. The patient has a history of chronic kidney disease, stage IV; hematuria, stage IV metastatic prostate cancer with extensive bony metastasis. HISTORY OF PRESENT ILLNESS: The patient was recently seen on the acute side for recurrent hematuria and abdominal pain. Workup at that time did not or failed to show anything intra-abdominally as far as constipation or mechanical issues as cause for the abdominal pain. The patient did have considerable amount of clots in his Avendano catheter thought to be coming from the bladder and once those clots cleared up with CBI and tranexamic acid, the patient started feeling better. The patient also was noted to have UTI and was treated appropriately. He has chronic kidney disease superimposed with acute injury and he was found to be hyponatremic which is gradually improving. The patient is continued on CBI and bleeding has cleared, and his hemoglobin is 10.5. PAST MEDICAL HISTORY: Significant for [id number]-hiodwruer diabetes mellitus, hypertension, coronary artery disease, coronary artery bypass surgery, AICD, stage IV prostate cancer with metastatic disease that is hormone refractory, was on abiraterone acetate/Zytiga, could not tolerate it, has been off the medicine now for several weeks, chronic kidney disease, paroxysmal atrial fibrillation, COPD, recurrent UTI, recurrent hematuria. FAMILY HISTORY: Noncontributory. SOCIAL HISTORY: The patient is not a drug user nor he consumes alcohol or smokes. ALLERGIES: THE PATIENT HAS LEVAQUIN AND CONTRAST ALLERGIES. CURRENT MEDICATIONS: Reviewed. REVIEW OF SYSTEMS: Pertinent positives are as mentioned in the HPI without evidence of anything abnormal in the rest of the review of systems. PHYSICAL EXAMINATION: GENERAL: The patient is awake, alert, and oriented. VITAL SIGNS: Stable as stated on the chart. Blood pressure is 124/64, heart rate is 74, respirations 18, T-max of 98.4. HEENT: Head is normocephalic, atraumatic. Conjunctivae are pale. Sclerae are anicteric. Pupils are equally reactive to light and accommodation. Examination of the oropharynx reveals no oropharyngeal lesion. NECK: Supple. There is no adenopathy. CARDIOVASCULAR: Examination of the heart reveals PMI to be in the fifth intercostal space. The patient has systolic ejection murmur. No rub is heard. LUNGS: Clear to percussion and auscultation. ABDOMEN: Soft, nontender. The previously noted tenderness in the left lower quadrant of the abdomen appears to be improved. Bowel sounds are present. EXTREMITIES: Reveals trace lower extremity edema. LABORATORY DATA: Reveals a white count of 12.2 with the hemoglobin of 10, hematocrit 33, platelet count of 195,000. Sodium is 131, potassium is 3.1, chloride 93, CO2 of 30, BUN of 32, creatinine 1.4, glucose of 262. The patient is currently on bladder irrigation. ASSESSMENT: The patient has hormone refractory prostate cancer, extensive bony metastasis, anemia, multifactorial, causes including recurrent hematuria, non-insulin dependent diabetes mellitus, hypertension, coronary artery disease, status post coronary artery bypass graft, congestive heart failure, paroxysmal atrial fibrillation. RECOMMENDATIONS: I discussed with the patient, continue the tranexamic acid 650 mg tablets 2 tablets b.i.d.; continue iv hydration, monitor his electrolytes. The patient has ongoing physical therapy for deconditioning. We will continue to monitor his hemoglobin and hematocrit while in the TCU. Progressive physical therapy has been recommended. The patient is currently not taking anything directed to his prostate cancer, continues to do well. I am going to probably recommend him to try the Zytiga, may be taking at a lower dose, but take it every day. Written post-exam instructions have been given to the patient. Blood work for the morning has been requested. Time spent is more than 35 minutes Rogelio Carballo MD [facility]
[2017-04-30] MEDS: Sodium Chloride 0.45% 1,000 ML IV SCH (01:07)
[2017-04-30] MEDS: Albuterol-Ipratrop 3 mg / 0.5 (3 ml) UD IH SCH ×5 (01:59→20:10)
--- NOTE | 2017-04-30 02:58 | PN ---
DATE: 04/29/2017 SUBJECTIVE: The patient is currently lying supine in bed in the TCU. He is receiving bladder irrigation. Urine output appears to be clear with no gross hematuria. The patient continues on IV antibiotic therapy for Klebsiella urinary tract infection. His renal paramedics have significantly improved and are approaching baseline levels. OBJECTIVE: VITAL SIGNS: Blood pressure 145/57, temperature 97.6, respiratory rate is 22 with a pulse of 67. HEENT: Shows him to be normocephalic, atraumatic. Conjunctivae are pale. Sclerae nonicteric. NECK: Supple. No neck vein distention. CHEST: Clear to auscultation and percussion. No rales. No rhonchi. No wheezing. CARDIOVASCULAR: Shows regular S1, S2. Aortic stenosis, mitral regurgitation, tricuspid regurgitation. No S3, no S4, no rub. ABDOMEN: Soft. Bowel sounds normal. Nondistended. No rebound. No guarding. No masses. EXTREMITIES: Show no lower extremity edema. No cyanosis. No clubbing. MEDICATIONS: Medication list reviewed. The patient is currently on ceftazidime/avibactam, Colace, amiodarone, Dilaudid p.r.n., DuoNeb, Lanoxin, tranexamic acid, Lasix, Lipitor, MiraLax, Mucinex, PhosLo, prednisone, Protonix, Pulmicort, Singulair, half normal saline 70 mL an hour, Spiriva, Synthroid, Tylenol p.r.n., vitamin D and Zofran. LABORATORY DATA AND IMAGING: Most recent set of labs showed a white blood cell count of 12.2, hemoglobin 10.2, platelet count of 195,000. Last BUN and creatinine were 32 and 1.4. BUN is down from high of 64. His baseline BUN is in the mid 20s. Creatinine is stable in the 1.4 range. Baseline creatinine is 1.1. Sodium level was noted to be 131 for his glucose level of 282. His sodium level corrects to 133-134. Microbiology was positive for Klebsiella urinary tract infection. Admitting CT scan of the abdomen showed normal kidneys. ASSESSMENT AND PLAN: 1. History of bladder cancer with recurrent hematuria. The patient has an indwelling Avendano catheter. He is currently receiving bladder irrigation as per Dr. Masterson and Dr. Louise. 2. Klebsiella urinary tract infection. The patient is completing a course of IV antibiotic therapy. 3. Mild hyponatremia. Sodium actually corrects to close to normal given his mild elevation of his glucose. 4. History of anemia. Hemoglobin is stable in the 10 to 11 range. 5. History of hyperkalemia. This is resolved. 6. History of arteriosclerotic heart disease, status post coronary artery bypass grafting. 7. History of percutaneous transluminal coronary angioplasty, currently stable. 8. History of hypertension, currently controlled. 9. History of chronic obstructive pulmonary disease, currently stable on current medical therapy. 10. History of deep venous thrombosis. PLAN: 1. Continue rehabilitation in the TCU. Continue IV antibiotic therapy as per infectious disease for treatment of his Klebsiella urinary tract infection. 2. Continuous bladder irrigation as per Dr. Masterson and Dr. Louise. 3. Continue to monitor labs on a frequent basis. Choco White MD [facility]
[2017-04-30] MEDS: HYDROmorphone 1 mg/ml ISec IVP PRN (03:20)
[2017-04-30] MEDS: Pantoprazole 40 mg EC Tab PO SCH (05:20)
[2017-04-30] MEDS: Levothyroxine 125 MCG TAB PO SCH (05:21)
[2017-04-30] MEDS: Budesonide 0.5 mg/2 ml Inhal Susp UD IH SCH ×2 (07:24→20:09)
[2017-04-30] MEDS ORDERED: MethylPREDNISolone 40 mg Vial IVP STA (08:13)
[2017-04-30] MEDS: Insulin Human NPH/Reg 70/30 Vial(3 ml) SC SCH ×4 (08:22→21:51)
[2017-04-30 08:24] LABS: HEMOGLOBIN 9.5 gm/dL (14.0-18.0); MEAN CELL VOLUME 86.6 fL (80.0-105.0); MEAN CORPUSCULAR HGB CONC 31.1 g/dl (31.0-37.0); MEAN PLATELET VOLUME 9.9 fl (7.0-11.0); RBC 3.52 10^6/uL (3.5-6.1); RED CELL DISTRIBUTION WIDTH 14.7 % (11.5-14.5); WHITE BLOOD COUNT 13.6 10^3/ul (4.5-11.0)
[2017-04-30 08:58] LABS: ALB/GLOB RATIO 1.1 (1.1-1.8); ALBUMIN 2.9 g/dL (3.0-4.8); ALT/SGPT 139 U/L (7-56); AST/SGOT 118 U/L (15-59); BLOOD UREA NITROGEN 24 mg/dL (7-21); CALCIUM 8.1 mg/dL (8.4-10.5); GFR AFRICAN-AMERICAN > 60; GFR NON-AFRICAN AMERICAN > 60; MAGNESIUM 2.3 mg/dL (1.7-2.2)
--- NOTE | 2017-04-30 09:09 | CON ---
DATE OF CONSULTATION: 04/29/2017 The patient in room 302, bed 1. REASON FOR CONSULTATION AND FOLLOWUP: Coronary artery disease, cardiomyopathy, AICD insertion, hypertension, and paroxysmal atrial fibrillation. HISTORY OF PRESENT ILLNESS: The patient is an 87-year-old male, known case of coronary artery disease, has multiple PTCA prior to CABG and after CABG as well, ischemic cardiomyopathy, status post AICD insertion, paroxysmal atrial fibrillation, COPD, hypothyroidism, CA of the prostate with metastasis, indwelling Avendano catheter, arthritis and abnormal kidney function, was admitted with abdominal pain. The patient also found to have some hematuria. The patient was found to have an infection, has been put on antibiotics. The patient was admitted to medical floor. He improved and now he is transferred to transitional care unit for deconditioning and physical therapy. PAST HISTORY: Positive for coronary artery disease, multiple angioplasties and stent insertion prior to CABG and post CABG; cardiomyopathy, ischemic cardiomyopathy, status post AICD insertion. The patient's generator battery changed about 6 weeks ago. History of prostate CA with mets to the lymph nodes. History of indwelling catheter, chronic kidney disease, hypertension, paroxysmal atrial fibrillation. History of DVT, the patient was at one point on Pradaxa, but it was stopped because of hematuria. History of COPD. Past history of non-STEMI previously, but at that time catheterization was not done because of comorbidities like renal failure and hematuria. CARDIAC WORKUP: The patient's recent echocardiogram was on 12/20/2016. It showed ejection fraction about 45%, trace to mild aortic regurg, mild to moderate aortic stenosis, peak gradient 20 mmHg, mean gradient 12, with aortic valve area 1.25 cm sq, which is consistent with mild to moderate aortic stenosis, moderate mitral regurg, mild to moderate tricuspid regurg with RVSP 43 mmHg showing mild pulmonary hypertension. SOCIAL HISTORY: Denies smoking. Denies drinking. REVIEW OF SYSTEMS: All the systems are reviewed, positive mentioned in the history, otherwise negative. HOME MEDICATIONS: The patient was on: 1. Amiodarone 200 mg daily. 2. Prednisone 10 mg b.i.d. 3. Protonix 40 daily. 4. Singulair 10 mg daily. 5. Synthroid 100 mcg p.o. daily. 6. Insulin for diabetes mellitus. 7. Humulin 70/30. 8. Furosemide 40 b.i.d. 9. Digoxin 0.125 daily. 10. Lipitor 10 mg daily. PHYSICAL EXAMINATION: VITAL SIGNS: Blood pressure 130/52, respirations 22, pulse 65, and temperature 97.6. HEENT: Head is normocephalic. Eyes: Pupil normal. Conjunctivae slightly pale. NECK: JVP low, carotids equal. THORAX: AP diameter normal. LUNGS: A few rales. CARDIOVASCULAR: S1 and S2. Ejection systolic murmur. No rub. ABDOMEN: Soft. No tenderness. No organomegaly. Bowel sounds normal. EXTREMITIES: No clubbing. No cyanosis. GENITALIA: The patient has indwelling catheter. LABORATORY DATA: Sugar 165. Other labs were done on the medical floor, they were reported on previous notes and consults. DIAGNOSES: 1. Coronary artery disease, status post angioplasty, stent insertion. 2. Ischemic cardiomyopathy, automatic implantable cardioverter defibrillator (AICD) insertion, status post battery change of AICD about 6 weeks ago. 3. Indwelling catheter, hematuria. 4. Urinary tract infection. 5. Paroxysmal atrial fibrillation. 6. Hypertension. 7. Diabetes mellitus. 8. Chronic renal dysfunction. 9. Chronic obstructive pulmonary disease. 10. Prostate carcinoma with metastasis. 11. Deconditioning. 12. Hypothyroidism. PLAN: The patient is getting 70 mL of half normal saline IV fluid. The patient on IV antibiotic, amiodarone 200 daily, Duoneb handheld nebulizer therapy. Insulin as ordered. Digoxin 0.125 p.o. daily, furosemide 40 IV daily, atorvastatin 10 mg daily, prednisone 5 mg daily, Protonix 40 mg daily, Singulair 10 mg at daily, Synthroid 125 mcg p.o. daily. We will continue present therapy, continue physical therapy, and we will follow. Mely Walters MD
[2017-04-30] MEDS: POLYETHYLENE GLYCOL 3350 17 GM/Dose PACKET PO SCH ×2 (10:28→17:00)
[2017-04-30] MEDS: guaiFENesin 600 mg ER Tab PO SCH ×2 (10:36→17:01)
[2017-04-30] MEDS: TRANEXAMIC ACID 650 MG PO SCH ×2 (10:36→17:00)
--- NOTE | 2017-04-30 14:02 | RAD ---
HISTORY: shortness of breath r/o CHF COMPARISON: Comparison chest dated 04/25/2017 FINDINGS: LUNGS: Interval placement right IJ central line with tip in the SVC. Left lower lobe opacity may be secondary to some elevation of left hemidiaphragm however atelectasis and/or infiltrate and effusion not excluded. Suspect minor right basilar atelectasis. PLEURA: As above. No pneumothorax apparent. CARDIOVASCULAR: Sternotomy wires, multi lead pacemaker/ defibrillator unchanged. Heart appears mildly enlarged. . OSSEOUS STRUCTURES: No significant abnormalities. VISUALIZED UPPER ABDOMEN: Normal. OTHER FINDINGS: None. IMPRESSION: Interval placement right IJ central line with tip in the SVC. Left lower lobe opacity may be secondary to some elevation of left hemidiaphragm however atelectasis and/or infiltrate and effusion not excluded. Suspect minor right basilar atelectasis.
[2017-04-30] MEDS: Digoxin 125 mcg (0.125 mg) Tab PO SCH (14:34)
[2017-04-30] MEDS ORDERED: Insulin Regular 1 UNITS/0.01 ML ML SC STA (19:21)
--- NOTE | 2017-04-30 20:25 | CP.PCM.PN ---
Subjective - Date & Time of Evaluation Date of Evaluation: 04/30/17 Time of Evaluation: 19:00 - Subjective Subjective: Continues to have some cough and wheezing. Started on IV methypred by pulmonary 12 ROS otherwise negative. Objective - Vital Signs/Intake and Output Vital Signs (last 24 hours): Temp Pulse Resp BP Pulse Ox 98 F 69 18 135/57 L 98 04/30/17 08:00 04/30/17 08:00 04/30/17 08:00 04/30/17 08:00 04/30/17 06:00 - Medications Medications: Current Medications Acetaminophen (Tylenol 325mg Tab) 650 mg PO Q4H PRN; Protocol PRN Reason: Pain, Mild (1-3) Albuterol/Ipratropium (Duoneb 3 Mg/0.5 Mg (3 Ml) Ud) 3 ml IH [id number] JEANA PRN Reason: Protocol Last Admin: 04/30/17 13:12 Dose: 3 ml Amiodarone HCl (Cordarone) 200 mg PO DAILY JEANA PRN Reason: Protocol Last Admin: 04/30/17 10:31 Dose: 200 mg Atorvastatin Calcium (Lipitor) 10 mg PO DIN JEANA PRN Reason: Protocol Last Admin: 04/30/17 16:49 Dose: 10 mg Budesonide (Pulmicort Respules) 0.5 mg IH [id number] JEANA PRN Reason: Protocol Last Admin: 04/30/17 07:24 Dose: 0.5 mg Calcium Acetate (Phoslo) 667 mg PO DAILY JEANA PRN Reason: Protocol Last Admin: 04/30/17 10:30 Dose: 667 mg Cholecalciferol (Vitamin D) 1,000 iu PO DAILY JEANA PRN Reason: Protocol Last Admin: 04/30/17 10:29 Dose: 1,000 iu Digoxin (Lanoxin) 0.125 mg PO 1400 JEANA PRN Reason: Protocol Last Admin: 04/30/17 14:34 Dose: 0.125 mg Docusate Sodium (Colace) 100 mg PO TID JEANA PRN Reason: Protocol Last Admin: 04/30/17 17:00 Dose: 100 mg Furosemide (Lasix) 40 mg IVP DAILY JEANA PRN Reason: Protocol Last Admin: 04/30/17 10:36 Dose: Not Given Guaifenesin (Mucinex La) 600 mg PO BID JEANA PRN Reason: Protocol Last Admin: 04/30/17 17:01 Dose: 600 mg Home Med (Home Med) 2 unit PO BID JEANA PRN Reason: Protocol Last Admin: 04/30/17 17:00 Dose: 2 unit Hydromorphone HCl (Dilaudid) 1.5 mg IVP Q4H PRN; Protocol PRN Reason: Pain, severe (8-10) Last Admin: 04/30/17 03:20 Dose: 1.5 mg Ceftazidime/Avibactam 1.25 gm/ (Sodium Chloride) 100 mls @ 50 mls/hr IVPB Q8 JEANA Stop: 05/03/17 14:01 Last Admin: 04/30/17 14:31 Dose: 50 mls/hr Levothyroxine Sodium (Synthroid) 125 mcg PO 0600 JEANA PRN Reason: Protocol Last Admin: 04/30/17 05:21 Dose: 125 mcg Montelukast Sodium (Singulair) 10 mg PO DAILY JEANA PRN Reason: Protocol Last Admin: 04/30/17 10:32 Dose: 10 mg Ondansetron HCl (Zofran Inj) 4 mg IVP Q4H PRN; Protocol PRN Reason: Nausea/Vomiting Last Admin: 04/30/17 03:26 Dose: 4 mg Pantoprazole Sodium (Protonix Ec Tab) 40 mg PO 0600 [facility] PRN Reason: Protocol Last Admin: 04/30/17 05:20 Dose: 40 mg Polyethylene Glycol (Miralax) 17 gm PO BID JEANA PRN Reason: Protocol Last Admin: 04/30/17 17:00 Dose: 17 gm Prednisone (Prednisone Tab) 5 mg PO DAILY JEANA PRN Reason: Protocol Last Admin: 04/30/17 10:31 Dose: 5 mg - Labs Labs: 04/30/17 08:19 04/30/17 08:19 - Constitutional Appears: Well - Respiratory Exam Respiratory Exam: Clear to Ausculation Bilateral, NORMAL BREATHING PATTERN - Cardiovascular Exam Cardiovascular Exam: REGULAR RHYTHM, +S1, +S2. absent: Murmur - Extremities Exam Extremities Exam: Full ROM, Normal Capillary Refill, Normal Inspection. absent : Joint Swelling, Pedal Edema - Skin Skin Exam: Dry, Intact, Normal Color, Warm Assessment and Plan - Assessment and Plan (Free Text) Assessment: Mr. 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 Appreciate ID and pulmonary recommendations. Continue tranexamic acid 650mg 2 tablets BID, continue IV hydration. we will consider Abiraterone at lower dose as out patient for prostate cancer Aidan Carballo MD Oncology Service
[2017-05-01] MEDS: Albuterol-Ipratrop 3 mg / 0.5 (3 ml) UD IH SCH ×5 (02:01→18:57)
--- NOTE | 2017-05-01 02:38 | PN ---
LOCATION: Transitional Care Unit, [facility] in [place]. He is in bed 1, room 302. SUBJECTIVE: Patient was admitted for treatment with antibiotics for abdominal infection. Patient has history of chronic congestive heart failure, congestive cardiomyopathy, diabetes mellitus, chronic lung disease, bronchitis, osteoarthritis, carcinoma of the prostate with metastatic disease to the lymph nodes in the abdomen and pelvic area. Patient is seen this morning. The nurse called, requested consultation as soon as possible because the patient had some shortness of breath and tightening in his throat with difficulty in breathing. THE PATIENT HAS ALLERGY TO IV CONTRAST AND LEVOFLOXACIN. Currently, the patient is on ceftazidime and avibactam. These are antibiotics that have been used for his infection in the belly. Patient is seen this morning. He seemed to be very apprehensive and complains of something in his throat. His O2 saturation is 97% on 2 liters of oxygen. PHYSICAL EXAMINATION: VITAL SIGNS: Pulse is 69, blood pressure 125/57, his respirations are 18, O2 saturation is 98% at the time of examination. LUNGS: Bilateral crepitations, scattered rhonchi present. Breath sounds are diminished bilaterally. HEART: NSR. Pacemaker present. ABDOMEN: Soft. Tenderness present diffusely. No localizing signs. CENTRAL NERVOUS SYSTEM: He is conscious, very anxious. ASSESSMENT AND PLAN: He is concerned about his symptoms that he has. He also has eructation, nausea, and he produces white thick sputum and coughing. The patient's intravenous fluids were discontinued. Patient was given intravenous dose of Lasix 40 mg stat. Patient will be continued with the respiratory treatment and the oxygen. Patient is going to have a portable chest x-ray and we will review the chest x-ray and we reassured the patient and we will keep a close eye on his O2 saturation and his vital signs, and he is also in some discomfort, so I advised him to take the Morphine 1.5 mg q. 4 hours p.r.n. for his pain. His medication list is the same as yesterday. The patient's prednisone is 5 mg daily. We will give him a dose of Solu-Medrol 20 mg IV push today and now, and we will maybe increase the Lasix to 40 mg intravenous q. 12 and we will keep an eye and the nurses will follow up with me within a few hours to see how his improvement is. Giselle Polk MD [facility] # [id number]
[2017-05-01] MEDS: Levothyroxine 125 MCG TAB PO SCH (05:08)
[2017-05-01] MEDS: Pantoprazole 40 mg EC Tab PO SCH (05:08)
[2017-05-01] MEDS: Insulin Human NPH/Reg 70/30 Vial(3 ml) SC SCH ×4 (06:48→22:09)
[2017-05-01] MEDS: Budesonide 0.5 mg/2 ml Inhal Susp UD IH SCH ×3 (07:18→18:58)
[2017-05-01 08:01] LABS: HEMOGLOBIN 9.7 gm/dL (14.0-18.0); MEAN CELL VOLUME 86.2 fL (80.0-105.0); MEAN CORPUSCULAR HEMOGLOBIN 26.7 pg (25.0-35.0); MEAN PLATELET VOLUME 9.9 fl (7.0-11.0); RBC 3.63 10^6/uL (3.5-6.1); RED CELL DISTRIBUTION WIDTH 14.3 % (11.5-14.5)
--- NOTE | 2017-05-01 08:20 | CP.PCM.PN ---
Subjective - Date & Time of Evaluation Date of Evaluation: 05/01/17 Time of Evaluation: 07:50 - Subjective Subjective: Patient seen and examined this morning. He is coughing up thick yellowish sputum. Objective - Vital Signs/Intake and Output Vital Signs (last 24 hours): Temp Pulse Resp BP Pulse Ox 98 F 69 18 135/57 L 98 04/30/17 08:00 04/30/17 08:00 04/30/17 08:00 04/30/17 08:00 04/30/17 06:00 - Medications Medications: Current Medications Acetaminophen (Tylenol 325mg Tab) 650 mg PO Q4H PRN; Protocol PRN Reason: Pain, Mild (1-3) Albuterol/Ipratropium (Duoneb 3 Mg/0.5 Mg (3 Ml) Ud) 3 ml IH [id number] JEANA PRN Reason: Protocol Last Admin: 05/01/17 07:18 Dose: 3 ml Amiodarone HCl (Cordarone) 200 mg PO DAILY JEANA PRN Reason: Protocol Last Admin: 04/30/17 10:31 Dose: 200 mg Atorvastatin Calcium (Lipitor) 10 mg PO DIN JEANA PRN Reason: Protocol Last Admin: 04/30/17 16:49 Dose: 10 mg Budesonide (Pulmicort Respules) 0.5 mg IH [id number] JEANA PRN Reason: Protocol Last Admin: 05/01/17 07:18 Dose: 0.5 mg Calcium Acetate (Phoslo) 667 mg PO DAILY JEANA PRN Reason: Protocol Last Admin: 04/30/17 10:30 Dose: 667 mg Cholecalciferol (Vitamin D) 1,000 iu PO DAILY JEANA PRN Reason: Protocol Last Admin: 04/30/17 10:29 Dose: 1,000 iu Digoxin (Lanoxin) 0.125 mg PO 1400 JEANA PRN Reason: Protocol Last Admin: 04/30/17 14:34 Dose: 0.125 mg Docusate Sodium (Colace) 100 mg PO TID JEANA PRN Reason: Protocol Last Admin: 04/30/17 17:00 Dose: 100 mg Furosemide (Lasix) 40 mg IVP DAILY JEANA PRN Reason: Protocol Last Admin: 04/30/17 10:36 Dose: Not Given Guaifenesin (Mucinex La) 600 mg PO BID JEANA PRN Reason: Protocol Last Admin: 04/30/17 17:01 Dose: 600 mg Home Med (Home Med) 2 unit PO BID JEANA PRN Reason: Protocol Last Admin: 04/30/17 17:00 Dose: 2 unit Hydromorphone HCl (Dilaudid) 1.5 mg IVP Q4H PRN; Protocol PRN Reason: Pain, severe (8-10) Last Admin: 04/30/17 03:20 Dose: 1.5 mg Ceftazidime/Avibactam 1.25 gm/ (Sodium Chloride) 100 mls @ 50 mls/hr IVPB Q8 [facility] Stop: 05/03/17 14:01 Last Admin: 05/01/17 05:07 Dose: 50 mls/hr Levothyroxine Sodium (Synthroid) 125 mcg PO 0600 [facility] PRN Reason: Protocol Last Admin: 05/01/17 05:08 Dose: 125 mcg Montelukast Sodium (Singulair) 10 mg PO DAILY JEANA PRN Reason: Protocol Last Admin: 04/30/17 10:32 Dose: 10 mg Ondansetron HCl (Zofran Inj) 4 mg IVP Q4H PRN; Protocol PRN Reason: Nausea/Vomiting Last Admin: 04/30/17 03:26 Dose: 4 mg Pantoprazole Sodium (Protonix Ec Tab) 40 mg PO 0600 [facility] PRN Reason: Protocol Last Admin: 05/01/17 05:08 Dose: 40 mg Polyethylene Glycol (Miralax) 17 gm PO BID JEANA PRN Reason: Protocol Last Admin: 04/30/17 17:00 Dose: 17 gm Prednisone (Prednisone Tab) 5 mg PO DAILY JEANA PRN Reason: Protocol Last Admin: 04/30/17 10:31 Dose: 5 mg - Labs Labs: 05/01/17 07:10 04/30/17 08:19 - Constitutional Appears: No Acute Distress - Head Exam Head Exam: ATRAUMATIC, NORMOCEPHALIC - Respiratory Exam Respiratory Exam: Wheezes - Cardiovascular Exam Cardiovascular Exam: +S1, +S2 - GI/Abdominal Exam GI & Abdominal Exam: Soft, Normal Bowel Sounds. absent: Tenderness - Neurological Exam Neurological Exam: Alert, Awake, Oriented x3 Assessment and Plan - Assessment and Plan (Free Text) Assessment: Chronic obstructive pulmonary disease with acute exacerbation Metastatic prostate cancer Hypothyroidism DMII Coronary artery disease Klebsiella urinary tract infection Plan: check sputum culture. continue IV antibiotics as per infectious disease continue respiratory treatments and prednisone urine is clear at present time with continuous irrigation running; discussed with nurse to irrigate intermittently today sodium back down to 130; nephrology on case off IV fluids
[2017-05-01 08:22] LABS: ALB/GLOB RATIO 1.2 (1.1-1.8); ALBUMIN 3.2 g/dL (3.0-4.8); ALT/SGPT 243 U/L (7-56); AST/SGOT 246 U/L (15-59); BLOOD UREA NITROGEN 29 mg/dL (7-21); CALCIUM 8.7 mg/dL (8.4-10.5); GFR AFRICAN-AMERICAN > 60; GFR NON-AFRICAN AMERICAN > 60
--- NOTE | 2017-05-01 08:40 | PN ---
PULMONARY PROGRESS NOTE TCU: 302. BED: 1. SUBJECTIVE: The patient is showing markedly better. 1. From the abdominal point of view, it is soft. There is no pressure. He is having no difficulty eating. He is in better spirits than previously. There were no additional abdominal complaints. 2. Urinary tract: The patient still has problems urinating and he is preparing for a procedure to evaluate his tract to find an etiology for voiding. 3. COPD: Respiratory status is markedly improved. He is comfortable with his current status, but is afraid that his throat is getting irritated by the full dose Spiriva. Unfortunately, the hospital does not have the half strength "Spiriva Respimat 1.25 mcg." PHYSICAL EXAMINATION GENERAL: The patient is comfortable as stated above. VITAL SIGNS: Stable. Blood pressure 120/84, heart rate 86, respiratory rate 16 and oxygen saturations 98% on supplemental oxygen. NECK: Supple. No JVD. No lymphadenopathy. No bruits. No lymph nodes. No thyroid mass. Good movement. CARDIOPULMONARY: Regular rhythm, S1, S2. Soft systolic ejection murmur at the lower left sternal border without irregular rhythm, gallop or rub. CHEST: Good breath sounds, there is global decrease at the bases and intermediate up. No rales, rhonchi or wheezes today. There was a slight rhonchus earlier which resolved with forced expectoration and cough. ABDOMEN: Soft. Bowel sounds normoactive without mass, guarding, rebound, or organomegaly. EXTREMITIES: Reveal no clubbing, cyanosis or edema. There is no Homans' sign. NEUROLOGIC: No focal findings. Awake, alert, and oriented. Motor, sensory, and coordination normal. Babinski is downgoing. Deep tendon reflex is normal. Lymphadenopathy is not present in the supraclavicular notch nor in the cervical, axillary, or supraclavicular areas. CLINICAL IMPRESSION: 1. Abdominal pain, resolved. 2. Severe chronic obstructive pulmonary disease with bronchospasm and air trapping, in resolution. 3. Status post infection. 4. Genitourinary bleeding. PLAN: We will decrease his corticosteroids to 5 mg his Medrol daily, I would not go low within that without speaking with Dr. Arias. The Spiriva 2.5 mcg was stopped due to the patient's hoarseness. We will monitor over the next several days and if it does not resolve, we will have to look for additional etiology. I doubt that the budesonide inhaled is causing this problem as he has been on this in the past without side effects. Should the patient's respiratory status regress, we may need to restart Spiriva as the Respimat inhaler at 1.25 mcg per puff, this is obviously a lower dose which has less side effects and has many other beneficial effects of its larger dose financial operations clerk. We will follow closely with you and decide upon need for further intervention based on his clinical status. He is in TCU now and preparing to be discharged shortly, this depends on his evaluation but pulmonary is doing well. Once we ascertain that he is on a good outpatient regimen we will discontinue or follow up and refer back to Dr. Arias upon his return. Thank you for the opportunity to follow this nichole gentleman. We will decide with you on the need for early followup. Werner Muhammad MD
--- NOTE | 2017-05-01 09:42 | PN ---
DATE: 04/30/2017 The patient in room 302, bed 1. REASON FOR CONSULTATION: Coronary artery disease, cardiomyopathy, AICD, hypertension, paroxysmal atrial fibrillation. SUBJECTIVE: The patient denies any chest pain. His breathing is better. He still has some cough. Denies any palpitation. PHYSICAL EXAMINATION VITAL SIGNS: Blood pressure 135/57, respiration 18, pulse 69, temperature 98. HEENT: Head is normocephalic. Eyes, pupils normal. Conjunctivae slightly pale. NECK: JVP low. Carotids equal. THORAX: AP diameter normal. LUNGS: Few expiratory wheezing. CARDIOVASCULAR: S1 and S2. Systolic murmur. ABDOMEN: Soft, nontender. No organomegaly. Bowel sounds normal. EXTREMITIES: No clubbing, no cyanosis. LABORATORY DATA: WBC 13.6, hemoglobin 9.5, hematocrit 30.5, platelets 166. Sodium 130, potassium 4.3, BUN 24, creatinine 1.1, random sugar 173, total protein 5.5, albumin 2.9, AST 118, ALT 139, magnesium 2.3, phosphorus 3.1. DIAGNOSES: Coronary artery disease status post angioplasty, stent insertion, ischemic cardiomyopathy, automatic implantable cardioverter-defibrillator insertion, status post battery change about 6 weeks ago, indwelling Avendano catheter due to hematuria, urinary tract infection, paroxysmal atrial fibrillation now, hypertension, diabetes, chronic renal dysfunction, chronic obstructive pulmonary disease, , deconditioning, hypothyroidism. PLAN: Continue physical therapy. Continue IV antibiotics, amiodarone 200 mg daily, DuoNeb handheld nebulizer therapy, Synthroid 125 mcg p.o. daily, Singulair 10 mg daily, Protonix 40 mg daily, prednisone 5 mg p.o. daily. We will continue physical therapy. The patient is also on digoxin 0.125 mg p.o. daily, furosemide 40 mg IV daily, atorvastatin 10 mg daily. We will continue to follow with you. Mely Walters MD
[2017-05-01] MEDS: TRANEXAMIC ACID 650 MG PO SCH ×2 (10:36→17:40)
[2017-05-01] MEDS: guaiFENesin 600 mg ER Tab PO SCH ×2 (10:37→17:41)
[2017-05-01] MEDS: POLYETHYLENE GLYCOL 3350 17 GM/Dose PACKET PO SCH ×2 (10:39→17:40)
--- NOTE | 2017-05-01 13:47 | CP.PCM.PN ---
Subjective - Date & Time of Evaluation Date of Evaluation: 05/01/17 Time of Evaluation: 08:30 - Subjective Subjective: Patient is going for cystoscopy today, no fevers overnight, not in distress. Objective - Vital Signs/Intake and Output Vital Signs (last 24 hours): Temp Pulse Resp BP Pulse Ox 98 F 69 18 135/57 L 98 04/30/17 08:00 04/30/17 08:00 04/30/17 08:00 04/30/17 08:00 04/30/17 06:00 - Medications Medications: Current Medications Acetaminophen (Tylenol 325mg Tab) 650 mg PO Q4H PRN; Protocol PRN Reason: Pain, Mild (1-3) Albuterol/Ipratropium (Duoneb 3 Mg/0.5 Mg (3 Ml) Ud) 3 ml IH Q2HICRP JEANA PRN Reason: Protocol Last Admin: 05/01/17 07:18 Dose: 3 ml Amiodarone HCl (Cordarone) 200 mg PO DAILY JEANA PRN Reason: Protocol Last Admin: 04/30/17 10:31 Dose: 200 mg Atorvastatin Calcium (Lipitor) 10 mg PO DIN JEANA PRN Reason: Protocol Last Admin: 04/30/17 16:49 Dose: 10 mg Budesonide (Pulmicort Respules) 0.5 mg IH [id number] JEANA PRN Reason: Protocol Last Admin: 05/01/17 07:18 Dose: 0.5 mg Calcium Acetate (Phoslo) 667 mg PO DAILY JEANA PRN Reason: Protocol Last Admin: 04/30/17 10:30 Dose: 667 mg Cholecalciferol (Vitamin D) 1,000 iu PO DAILY JEANA PRN Reason: Protocol Last Admin: 04/30/17 10:29 Dose: 1,000 iu Digoxin (Lanoxin) 0.125 mg PO 1400 JEANA PRN Reason: Protocol Last Admin: 04/30/17 14:34 Dose: 0.125 mg Docusate Sodium (Colace) 100 mg PO TID JEANA PRN Reason: Protocol Last Admin: 04/30/17 17:00 Dose: 100 mg Furosemide (Lasix) 40 mg IVP DAILY JEANA PRN Reason: Protocol Last Admin: 04/30/17 10:36 Dose: Not Given Guaifenesin (Mucinex La) 600 mg PO BID JEANA PRN Reason: Protocol Last Admin: 04/30/17 17:01 Dose: 600 mg Home Med (Home Med) 2 unit PO BID [facility] PRN Reason: Protocol Last Admin: 04/30/17 17:00 Dose: 2 unit Hydromorphone HCl (Dilaudid) 1.5 mg IVP Q4H PRN; Protocol PRN Reason: Pain, severe (8-10) Last Admin: 04/30/17 03:20 Dose: 1.5 mg Ceftazidime/Avibactam 1.25 gm/ (Sodium Chloride) 100 mls @ 50 mls/hr IVPB Q8 [facility] Stop: 05/03/17 14:01 Last Admin: 05/01/17 05:07 Dose: 50 mls/hr Levothyroxine Sodium (Synthroid) 125 mcg PO 0600 [facility] PRN Reason: Protocol Last Admin: 05/01/17 05:08 Dose: 125 mcg Montelukast Sodium (Singulair) 10 mg PO DAILY [facility] PRN Reason: Protocol Last Admin: 04/30/17 10:32 Dose: 10 mg Ondansetron HCl (Zofran Inj) 4 mg IVP Q4H PRN; Protocol PRN Reason: Nausea/Vomiting Last Admin: 04/30/17 03:26 Dose: 4 mg Pantoprazole Sodium (Protonix Ec Tab) 40 mg PO 0600 [facility] PRN Reason: Protocol Last Admin: 05/01/17 05:08 Dose: 40 mg Polyethylene Glycol (Miralax) 17 gm PO BID [facility] PRN Reason: Protocol Last Admin: 04/30/17 17:00 Dose: 17 gm Prednisone (Prednisone Tab) 10 mg PO DAILY [facility] - Labs Labs: 05/01/17 07:10 05/01/17 07:10 - Constitutional Appears: No Acute Distress - Head Exam Head Exam: NORMAL INSPECTION - Respiratory Exam Respiratory Exam: Decreased Breath Sounds - Cardiovascular Exam Cardiovascular Exam: +S1, +S2 - GI/Abdominal Exam GI & Abdominal Exam: Soft. absent: Tenderness Assessment and Plan - Assessment and Plan (Free Text) Plan: Assessment Consider lower urinary tract infection in a patient with indwelling Avnedano catheter growing Carbapenem-resistant Klebsiella history of right foot necrotic ulcer with surrounding cellulitis UTI with Enterococcus and Klebsiella chronic renal failure history of DVT DM Prostate CA history of Enterococcus UTI atrial fibrillation S/P pacemaker and ICD placement Plan continue Avycaz day 6 and follow up repeat urine cx reviewed CT scan of the abdomen and pelvis which showed some mural thickening of the urinary bladder - should target 7-10 days of antibiotics follow up results of the cystoscopy done today will continue to follow clinically
[2017-05-01] MEDS ORDERED: MethylPREDNISolone 40 mg Vial IVP STA (13:55)
[2017-05-01] MEDS: Digoxin 125 mcg (0.125 mg) Tab PO SCH (13:59)
--- NOTE | 2017-05-01 22:21 | PN ---
DATE: 05/01/2017 SUBJECTIVE: The patient is seen sitting in chair. He is groggy, somewhat lethargic today. He complains of swelling. He complains of lower abdominal pain. PHYSICAL EXAMINATION: GENERAL: Elderly male, sitting in chair. VITAL SIGNS: Blood pressure 140/67, heart rate 70, respiratory rate 18 to 20, temperature is 98. HEENT: Normocephalic and atraumatic. Positive pallor. NECK: Supple. No JVD. LUNGS: Bilateral equal air entry. Bilateral rhonchi. CARDIAC: S1 and S2. Regular rate and rhythm. No murmur. No rubs. ABDOMEN: Obese, distended, soft, positive tenderness in the lower abdomen. EXTREMITIES: 1+ pitting edema of the lower extremity. INTAKE AND OUTPUT: Not charted. LABORATORY DATA: WBC 15, hemoglobin 9.7, hematocrit 31, platelets 191. Sodium 134, potassium 4.7, chloride 97, CO2 of 29, BUN 29, creatinine of 1.1, glucose 107, calcium 8.7, AST 246, ALT 243. CURRENT MEDICATIONS: Ceftazidime/avibactam, Colace, Cordarone, Dilaudid, DuoNeb, digoxin, Lasix 40 IV daily, Lipitor, MiraLax, Mucinex, PhosLo, prednisone, Protonix, Pulmicort, Singulair, Synthroid, Tylenol, vitamin D, Zofran. ASSESSMENT: 1. Resolving hyponatremia. 2. Chronic kidney disease stage III/IV. 3. Leukocytosis. 4. Rising liver function tests. 5. History of prostate cancer. 6. History of bladder cancer. 7. Recurrent hematuria. 8. Urinary tract infection. PLAN: 1. Repeat cultures? 2. Continue antibiotics as per infectious disease recommendations. 3. Monitor LFTs. 4. Continue Lasix 40 mg daily. Marianne Lozano MD
[2017-05-02] MEDS: Albuterol-Ipratrop 3 mg / 0.5 (3 ml) UD IH SCH ×5 (01:59→20:55)
[2017-05-02] MEDS: Levothyroxine 125 MCG TAB PO SCH (05:39)
[2017-05-02] MEDS: Pantoprazole 40 mg EC Tab PO SCH (05:39)
[2017-05-02] MEDS: Budesonide 0.5 mg/2 ml Inhal Susp UD IH SCH ×2 (07:20→20:55)
[2017-05-02 07:32] LABS: BASO # 0.02 K/mm3 (0.0-2.0); BASO % 0.1 % (0.0-3.0); EOS # 0.1 (0.0-0.7); EOS % 0.8 % (1.5-5.0); GRAN # 10.94 (1.4-6.5); HEMOGLOBIN 9.6 gm/dL (14.0-18.0); LYMPH # 1.5 (1.2-3.4); LYMPH % 10.7 % (22.0-35.0); MEAN CELL VOLUME 85.8 fL (80.0-105.0); MEAN CORPUSCULAR HEMOGLOBIN 26.7 pg (25.0-35.0); MEAN CORPUSCULAR HGB CONC 31.1 g/dl (31.0-37.0); MEAN PLATELET VOLUME 9.6 fl (7.0-11.0); MONO # 1.2 (0.1-0.6); MONO % 8.4 % (1.0-6.0); PLATELET COUNT 215 10^3/uL (120.0-450.0); RED CELL DISTRIBUTION WIDTH 14.5 % (11.5-14.5); WHITE BLOOD COUNT 13.7 10^3/ul (4.5-11.0)
[2017-05-02 07:50] LABS: ALB/GLOB RATIO 1.1 (1.1-1.8); ALBUMIN 3.3 g/dL (3.0-4.8); ALT/SGPT 233 U/L (7-56); AST/SGOT 177 U/L (15-59); BLOOD UREA NITROGEN 31 mg/dL (7-21); CALCIUM 8.8 mg/dL (8.4-10.5); GFR AFRICAN-AMERICAN > 60; GFR NON-AFRICAN AMERICAN 57; MAGNESIUM 2.3 mg/dL (1.7-2.2)
--- NOTE | 2017-05-02 08:01 | CP.PCM.PN ---
Subjective - Date & Time of Evaluation Date of Evaluation: 05/02/17 Time of Evaluation: 07:58 - Subjective Subjective: PGY-[address] Carballo Pt complainted of nausea x 3 days. No vomit. Just dry heaves with SOB on exertion, which is chronic. CBI on going at a very slow rate. No clots in urine. Objective - Vital Signs/Intake and Output Vital Signs (last 24 hours): Temp Pulse Resp BP Pulse Ox 98.1 F 75 18 133/64 96 05/02/17 06:00 05/02/17 06:00 05/02/17 06:00 05/02/17 06:00 05/01/17 15:52 Intake and Output: 05/02/17 05/02/17 06:59 18:59 Output Total 2300 Balance -2300 - Medications Medications: Current Medications Acetaminophen (Tylenol 325mg Tab) 650 mg PO Q4H PRN; Protocol PRN Reason: Pain, Mild (1-3) Albuterol/Ipratropium (Duoneb 3 Mg/0.5 Mg (3 Ml) Ud) 3 ml IH [id number] JEANA PRN Reason: Protocol Last Admin: 05/02/17 07:20 Dose: 3 ml Amiodarone HCl (Cordarone) 200 mg PO DAILY JEANA PRN Reason: Protocol Last Admin: 05/01/17 10:36 Dose: 200 mg Atorvastatin Calcium (Lipitor) 10 mg PO DIN JEANA PRN Reason: Protocol Last Admin: 05/01/17 17:39 Dose: 10 mg Budesonide (Pulmicort Respules) 0.5 mg IH [id number] JEANA PRN Reason: Protocol Last Admin: 05/02/17 07:20 Dose: 0.5 mg Calcium Acetate (Phoslo) 667 mg PO DAILY JEANA PRN Reason: Protocol Last Admin: 05/01/17 10:39 Dose: 667 mg Cholecalciferol (Vitamin D) 1,000 iu PO DAILY JEANA PRN Reason: Protocol Last Admin: 05/01/17 10:38 Dose: 1,000 iu Digoxin (Lanoxin) 0.125 mg PO 1400 JEANA PRN Reason: Protocol Last Admin: 05/01/17 13:59 Dose: 0.125 mg Docusate Sodium (Colace) 100 mg PO TID JEANA PRN Reason: Protocol Last Admin: 05/01/17 17:39 Dose: 100 mg Furosemide (Lasix) 40 mg IVP DAILY JEANA PRN Reason: Protocol Last Admin: 05/01/17 10:37 Dose: 40 mg Guaifenesin (Mucinex La) 600 mg PO BID JEANA PRN Reason: Protocol Last Admin: 05/01/17 17:41 Dose: 600 mg Home Med (Home Med) 2 unit PO BID JEANA PRN Reason: Protocol Last Admin: 05/01/17 17:40 Dose: 2 unit Hydromorphone HCl (Dilaudid) 1.5 mg IVP Q4H PRN; Protocol PRN Reason: Pain, severe (8-10) Last Admin: 04/30/17 03:20 Dose: 1.5 mg Ceftazidime/Avibactam 1.25 gm/ (Sodium Chloride) 100 mls @ 50 mls/hr IVPB Q8 [facility] Stop: 05/03/17 14:01 Last Admin: 05/02/17 05:39 Dose: 50 mls/hr Levothyroxine Sodium (Synthroid) 125 mcg PO 0600 JEANA PRN Reason: Protocol Last Admin: 05/02/17 05:39 Dose: 125 mcg Montelukast Sodium (Singulair) 10 mg PO DAILY JEANA PRN Reason: Protocol Last Admin: 05/01/17 10:38 Dose: 10 mg Ondansetron HCl (Zofran Inj) 4 mg IVP Q4H PRN; Protocol PRN Reason: Nausea/Vomiting Last Admin: 04/30/17 03:26 Dose: 4 mg Pantoprazole Sodium (Protonix Ec Tab) 40 mg PO 0600 JEANA PRN Reason: Protocol Last Admin: 05/02/17 05:39 Dose: 40 mg Polyethylene Glycol (Miralax) 17 gm PO BID JEANA PRN Reason: Protocol Last Admin: 05/01/17 17:40 Dose: 17 gm Prednisone (Prednisone Tab) 10 mg PO DAILY [facility] Last Admin: 05/01/17 10:38 Dose: 10 mg - Labs Labs: 05/02/17 07:00 05/02/17 07:00 - Constitutional Appears: Chronically Ill - Head Exam Head Exam: ATRAUMATIC, NORMAL INSPECTION, NORMOCEPHALIC - Eye Exam Eye Exam: EOMI, Normal appearance, PERRL. absent: Scleral icterus - ENT Exam ENT Exam: Mucous Membranes Moist - Neck Exam Neck Exam: Tenderness - Respiratory Exam Respiratory Exam: Decreased Breath Sounds, Rhonchi, NORMAL BREATHING PATTERN. absent: Clear to Ausculation Bilateral, Rales, Wheezes, Respiratory Distress - Cardiovascular Exam Cardiovascular Exam: REGULAR RHYTHM, +S1, +S2 - GI/Abdominal Exam GI & Abdominal Exam: Soft, Tenderness. absent: Guarding, Rigid Additional comments: T9-T10 pain, chronic, no radiation to anterior or legs RLQ tenderness - Extremities Exam Extremities Exam: Normal Capillary Refill, Pedal Edema (mild). absent: Calf Tenderness - Back Exam Back Exam: paraspinal tenderness. 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 Pt had hemauturia s/p cystoscopy (05/01/17). He is in contact isolation for ESBL, Carbapenem-resistant Klebsiella UTI, complicated. Clots likely from microscopic hematuria were found in schroeder so started continuous bladder irrigation, and abdominal pain improved. Pt has new onset nausea on zofran and reglan prn. Abdominal pain - improves Hematuria with Clots in urine - resolved, CBI Gross Hemautria - resolved Due to prostate ca - likely referred pain from origin - hold ASA and Plavix. on home tranexamc acid 650 mg 2 tablets bid UTI, complicated, indwelling Schroeder catheter growing Carbapenem-resistant Klebsiella history of right foot necrotic ulcer with surrounding cellulitis - switch Merrem to Avycaz and pending repeat urine cx (avoid Amikacin), target 7 -10 days of antibiotics - CT scan of the abdomen and pelvis which showed mural thickening of the urinary bladder Transaminitis - possible amiodarone vs lipitor Constipation - resolved - s/p lactulose. - CT negative of acute GI event. (+) GB sludge, (+) lymphadenopathy as before - continue Colace, increase Miralax to BID, hold for stool>2/day Stage 4 prostate CA, castrate resistant, with bone mets Hx DVT not on anticoagulant for hematuria - LDH 769 - PSA 33 (03/2017) - Bone Scan (04/27/17) - New osseous metastatic disease affecting axial skeleton at thoracolumbar spine, pelvis, and proximal femurs. - CT scan (03/18/17): stable retrocrural and retroperitoneal lymphadenopahty - dilaudid prn for pain control - Due to age and comorbidities, pt is not a candidate for chemotherapy - For his prostate cancer, pt was initially on Casodex (could not tolerate xtandi), currently on Zytiga once daily and prednisone. - Dr. Carballo met with family and pt. Agreed supportive therapy. 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 Carballo
--- NOTE | 2017-05-02 08:03 | CP.PCM.PN ---
Subjective - Date & Time of Evaluation Date of Evaluation: 05/02/17 Time of Evaluation: 07:45 - Subjective Subjective: Patient with intermittent bladder irrigation. Objective - Vital Signs/Intake and Output Vital Signs (last 24 hours): Temp Pulse Resp BP Pulse Ox 98.1 F 75 18 133/64 96 05/02/17 06:00 05/02/17 06:00 05/02/17 06:00 05/02/17 06:00 05/01/17 15:52 Intake and Output: 05/02/17 05/02/17 06:59 18:59 Output Total 2300 Balance -2300 - Medications Medications: Current Medications Acetaminophen (Tylenol 325mg Tab) 650 mg PO Q4H PRN; Protocol PRN Reason: Pain, Mild (1-3) Albuterol/Ipratropium (Duoneb 3 Mg/0.5 Mg (3 Ml) Ud) 3 ml IH [id number] JEANA PRN Reason: Protocol Last Admin: 05/02/17 07:20 Dose: 3 ml Amiodarone HCl (Cordarone) 200 mg PO DAILY JEANA PRN Reason: Protocol Last Admin: 05/01/17 10:36 Dose: 200 mg Atorvastatin Calcium (Lipitor) 10 mg PO DIN JEANA PRN Reason: Protocol Last Admin: 05/01/17 17:39 Dose: 10 mg Budesonide (Pulmicort Respules) 0.5 mg IH [id number] JEANA PRN Reason: Protocol Last Admin: 05/02/17 07:20 Dose: 0.5 mg Calcium Acetate (Phoslo) 667 mg PO DAILY JEANA PRN Reason: Protocol Last Admin: 05/01/17 10:39 Dose: 667 mg Cholecalciferol (Vitamin D) 1,000 iu PO DAILY JEANA PRN Reason: Protocol Last Admin: 05/01/17 10:38 Dose: 1,000 iu Digoxin (Lanoxin) 0.125 mg PO 1400 JEANA PRN Reason: Protocol Last Admin: 05/01/17 13:59 Dose: 0.125 mg Docusate Sodium (Colace) 100 mg PO TID JEANA PRN Reason: Protocol Last Admin: 05/01/17 17:39 Dose: 100 mg Furosemide (Lasix) 40 mg IVP DAILY JEANA PRN Reason: Protocol Last Admin: 05/01/17 10:37 Dose: 40 mg Guaifenesin (Mucinex La) 600 mg PO BID [facility] PRN Reason: Protocol Last Admin: 05/01/17 17:41 Dose: 600 mg Home Med (Home Med) 2 unit PO BID JEANA PRN Reason: Protocol Last Admin: 05/01/17 17:40 Dose: 2 unit Hydromorphone HCl (Dilaudid) 1.5 mg IVP Q4H PRN; Protocol PRN Reason: Pain, severe (8-10) Last Admin: 04/30/17 03:20 Dose: 1.5 mg Ceftazidime/Avibactam 1.25 gm/ (Sodium Chloride) 100 mls @ 50 mls/hr IVPB Q8 [facility] Stop: 05/03/17 14:01 Last Admin: 05/02/17 05:39 Dose: 50 mls/hr Levothyroxine Sodium (Synthroid) 125 mcg PO 0600 [facility] PRN Reason: Protocol Last Admin: 05/02/17 05:39 Dose: 125 mcg Montelukast Sodium (Singulair) 10 mg PO DAILY [facility] PRN Reason: Protocol Last Admin: 05/01/17 10:38 Dose: 10 mg Ondansetron HCl (Zofran Inj) 4 mg IVP Q4H PRN; Protocol PRN Reason: Nausea/Vomiting Last Admin: 04/30/17 03:26 Dose: 4 mg Pantoprazole Sodium (Protonix Ec Tab) 40 mg PO 0600 [facility] PRN Reason: Protocol Last Admin: 05/02/17 05:39 Dose: 40 mg Polyethylene Glycol (Miralax) 17 gm PO BID [facility] PRN Reason: Protocol Last Admin: 05/01/17 17:40 Dose: 17 gm Prednisone (Prednisone Tab) 10 mg PO DAILY [facility] Last Admin: 05/01/17 10:38 Dose: 10 mg - Labs Labs: 05/02/17 07:00 05/02/17 07:00 - Constitutional Appears: No Acute Distress - Head Exam Head Exam: ATRAUMATIC, NORMOCEPHALIC - Respiratory Exam Respiratory Exam: Clear to Ausculation Bilateral, NORMAL BREATHING PATTERN - Cardiovascular Exam Cardiovascular Exam: +S1, +S2 - GI/Abdominal Exam GI & Abdominal Exam: Soft, Normal Bowel Sounds - Neurological Exam Neurological Exam: Alert, Awake, Oriented x3 Assessment and Plan - Assessment and Plan (Free Text) Assessment: Klebsiella Urinary tract infection Metastatic prostate cancer Chronic kidney disease Chronic obstructive pulmonary disease with exacerbation Coronary Artery Disease Type II Diabetes Mellitus Hypothyroidism Elevated liver enzymes Plan: Patient coughing up thick yellowish sputum. Sputum culture growing gram positive cocci in chains and clusters. Awaiting identification and sensitivity continue IV antibiotics as per infectious disease for klebsiella urinary tract infection repeat urine culture ordered continue respiratory treatments and prednisone liver enzymes trending down; CT abd/pelvis did not show any liver disease
[2017-05-02] MEDS: Insulin Human NPH/Reg 70/30 Vial(3 ml) SC SCH ×4 (08:07→22:58)
[2017-05-02] MEDS: TRANEXAMIC ACID 650 MG PO SCH ×2 (10:28→17:34)
[2017-05-02] MEDS: POLYETHYLENE GLYCOL 3350 17 GM/Dose PACKET PO SCH ×2 (10:30→17:34)
[2017-05-02] MEDS: guaiFENesin 600 mg ER Tab PO SCH ×2 (10:30→17:35)
--- NOTE | 2017-05-02 11:12 | PN ---
DATE: 05/01/2017 REASON FOR CONSULTATION: Follow up coronary artery disease , cardiomyopathy, AICD, paroxysmal atrial fibrillation, cardiology followup. BRIEF CLINICAL HISTORY: An 87-year-old male with a past medical history significant for cardiomyopathy status post AICD, coronary artery disease, CABG, admitted with urinary retention and abdominal pain, now in transitional care unit for continuity of care. Denies any chest pain, shortness of breath or any palpitations. PHYSICAL EXAMINATION VITAL SIGNS: As follows; temperature afebrile,heart rate 69, blood pressure 144/68. HEENT: PERRLA, EOM intact. NECK: Supple. No carotid bruit or thyromegaly. CHEST: Clear to auscultation. HEART: S1 and S2. Regular. ABDOMEN: Soft. EXTREMITIES: Clubbing and cyanosis negative. LABORATORY DATA: WBC 15, hemoglobin 9.0, hematocrit 31.3, platelet count 191. Chemistry showed sodium 134, potassium 4.7, chloride 97, CO2 of 29, anion gap of 13, BUN 29, and creatinine 1.1. IMPRESSION: An 87-year-old male with past medical history significant for coronary artery disease, coronary artery bypass grafting, pre and post coronary artery bypass grafting, percutaneous transluminal coronary angioplasty, cardiomyopathy status post automatic implantable cardioverter defibrillator, status post degenerative changes, *------* indwelling Avendano catheter, has prostate cancer, hematuria, urinary tract infection, paroxysmal atrial fibrillation, admitted with abdominal pain, chronic history of chronic obstructive pulmonary disease, hypothyroidism, and deconditioning of the body. RECOMMENDATION: Continue rehab. Continue IV antibiotic. The patient was congested, started on IV Lasix, follow up the lab in the morning. Continue Synthroid. Continue amiodarone. We will get a chest x-ray, PA and lateral tomorrow and continue IV Lasix. We will give an extra dose of Lasix at 4 p.m. We will follow with you. Thank you Dr. Polk for opportunity in taking care of patient, Perry Trinh. We will follow the labs in the morning. Mely Chavarria MD [facility] # [id number]
[2017-05-02] MEDS: Digoxin 125 mcg (0.125 mg) Tab PO SCH (14:36)
--- NOTE | 2017-05-02 16:33 | PN ---
DATE: 05/02/2017 SUBJECTIVE: The patient is in bed, in no acute distress, nontoxic. PHYSICAL EXAMINATION VITAL SIGNS: Temperature is 98, blood pressure is 130/60, respiratory rate of 17, heart rate of 75. HEENT: Unremarkable. NECK: Supple. LUNGS: Decreased breath sounds. HEART: Normal S1 and S2. ABDOMEN: Soft and nontender. LABORATORY DATA: Reveal the patient's white count of 13,700, hemoglobin of 9, platelets of 215. Chemistries reveal a BUN of 31, creatinine of 1.2. LFTs are elevated; however, improving. Microbiology is noted. The patient did have Klebsiella in the urine and review of orders reveals the patient to be on Avycaz. ASSESSMENT AND PLAN: He is an 87-year-old male, seen earlier this morning in room #302 in transitional care, who had carbapenem-resistant Klebsiella urinary tract infection, currently on Avycaz, day #7, would discontinue the Avycaz after today's last dose. The patient has had adequate therapy and today is day #7 of 7 days. Elliot Hernandez MD
--- NOTE | 2017-05-02 18:07 | CP.PCM.CON ---
History of Present Illness - History of Present Illness History of Present Illness: 87 year old pt came into ER with complaints of abdominal pain x 4 days that has gotten progressively worse. He is experiencing associated constipation. Patient was found to have an elevated WBC of 21,000. He also had an episode of hematuria. He has had UTIs in the past and has been on tranexamic acid for hematuria. Review of Systems - Review of Systems All systems: reviewed and no additional remarkable complaints except Review of Systems: Abd pain positive Past Patient History - Infectious Disease Hx of Infectious Diseases: None - Tetanus Immunizations Tetanus Immunization: Unknown - Past Medical History & Family History Past Medical History?: Yes Pertinent Family History: DM, prostate CA, chronic indwelling schroeder catheter, CAD, MA, gallstones, COPD, hyporthyroidism. - Past Social History Smoking Status: Never Smoked Alcohol: None - CARDIAC Hx Cardiac Disorders: Yes Hx Congestive Heart Failure: Yes - PULMONARY Hx Chronic Obstructive Pulmonary Disease (COPD): Yes - NEUROLOGICAL Hx Neurological Disorder: No - HEENT Hx HEENT Problems: Yes Hx Cataracts: Yes (WITH b/t SURGERY) - RENAL Hx Renal Failure: Yes - ENDOCRINE/METABOLIC Hx Diabetes Mellitus Type 2: Yes - HEMATOLOGICAL/ONCOLOGICAL Hx Blood Transfusions: Yes Hx Blood Transfusion Reaction: No - INTEGUMENTARY Hx Dermatological Problems: No - MUSCULOSKELETAL/RHEUMATOLOGICAL Hx Falls: No - GASTROINTESTINAL Hx Gastrointestinal Disorders: Yes - GENITOURINARY/GYNECOLOGICAL Hx Reproductive Disorders: No - PSYCHIATRIC Hx Emotional Abuse: No Hx Physical Abuse: No Hx Substance Use: No - SURGICAL HISTORY Hx Surgeries: Yes (cardiac stents, CABG, defibrillator) Hx Angioplasty: Yes (Multiple angioplasties) Hx Cataract Extraction: Yes Other/Comment: cardiac stents, 4 quadruple bypass in the past 3 years, indwelling schroeder catheter placement - ANESTHESIA Hx Anesthesia Reactions: No Hx Malignant Hyperthermia: No Meds Allergies/Adverse Reactions: Allergies Allergy/AdvReac Type Severity Reaction Status Date / Time Iodinated Contrast- Oral and Allergy ANAPHYLAXIS Verified 04/23/17 11:49 IV Dye levofloxacin [From Levaquin] Allergy ANAPHYLAXIS Verified 04/23/17 11:49 - Medications Medications: Current Medications Acetaminophen (Tylenol 325mg Tab) 650 mg PO Q4H PRN; Protocol PRN Reason: Pain, Mild (1-3) Albuterol/Ipratropium (Duoneb 3 Mg/0.5 Mg (3 Ml) Ud) 3 ml IH [id number] JEANA PRN Reason: Protocol Last Admin: 05/02/17 13:29 Dose: 3 ml Amiodarone HCl (Cordarone) 200 mg PO DAILY [facility] PRN Reason: Protocol Last Admin: 05/02/17 10:27 Dose: 200 mg Atorvastatin Calcium (Lipitor) 10 mg PO DIN [facility]EANA PRN Reason: Protocol Last Admin: 05/02/17 17:15 Dose: 10 mg Benzocaine/Menthol (Cepacol Sore Throat) 1 [place] Q4H PRN; Protocol PRN Reason: Sore Throat Budesonide (Pulmicort Respules) 0.5 mg IH [id number] JEANA PRN Reason: Protocol Last Admin: 05/02/17 07:20 Dose: 0.5 mg Calcium Acetate (Phoslo) 667 mg PO DAILY [facility] PRN Reason: Protocol Last Admin: 05/02/17 10:30 Dose: 667 mg Cholecalciferol (Vitamin D) 1,000 iu PO DAILY [facility] PRN Reason: Protocol Last Admin: 05/02/17 10:31 Dose: 1,000 iu Digoxin (Lanoxin) 0.125 mg PO 1400 [facility] PRN Reason: Protocol Last Admin: 05/02/17 14:36 Dose: 0.125 mg Docusate Sodium (Colace) 100 mg PO TID [facility] PRN Reason: Protocol Last Admin: 05/02/17 17:34 Dose: 100 mg Furosemide (Lasix) 40 mg IVP DAILY [facility] PRN Reason: Protocol Last Admin: 05/02/17 10:29 Dose: 40 mg Guaifenesin (Mucinex La) 600 mg PO BID [facility] PRN Reason: Protocol Last Admin: 05/02/17 17:35 Dose: 600 mg Home Med (Home Med) 2 unit PO BID [facility] PRN Reason: Protocol Last Admin: 05/02/17 17:34 Dose: 2 unit Hydromorphone HCl (Dilaudid) 1.5 mg IVP Q4H PRN; Protocol PRN Reason: Pain, severe (8-10) Last Admin: 04/30/17 03:20 Dose: 1.5 mg Ceftazidime/Avibactam 1.25 gm/ (Sodium Chloride) 100 mls @ 50 mls/hr IVPB Q8 [facility] Stop: 05/03/17 14:01 Last Admin: 05/02/17 14:35 Dose: 50 mls/hr Levothyroxine Sodium (Synthroid) 125 mcg PO 0600 [facility] PRN Reason: Protocol Last Admin: 05/02/17 05:39 Dose: 125 mcg Metoclopramide HCl (Reglan) 5 mg IVP Q8 PRN PRN Reason: Nausea/Vomiting Montelukast Sodium (Singulair) 10 mg PO DAILY [facility] PRN Reason: Protocol Last Admin: 05/02/17 10:31 Dose: 10 mg Ondansetron HCl (Zofran Inj) 4 mg IVP Q4H PRN; Protocol PRN Reason: Nausea/Vomiting Last Admin: 04/30/17 03:26 Dose: 4 mg Pantoprazole Sodium (Protonix Ec Tab) 40 mg PO 0600 [facility] PRN Reason: Protocol Last Admin: 05/02/17 05:39 Dose: 40 mg Polyethylene Glycol (Miralax) 17 gm PO BID [facility]EA[facility] PRN Reason: Protocol Last Admin: 05/02/17 17:34 Dose: 17 gm Prednisone (Prednisone Tab) 10 mg PO DAILY [facility] Last Admin: 05/02/17 10:31 Dose: 10 mg Physical Exam - Constitutional Appears: No Acute Distress Additional comments: Laying in bed, in NAD, afebrile. BP - 138/43 RR - 20 Temp - 98.1 O2 sat - 96% - Head Exam Head Exam: ATRAUMATIC - Neck Exam Additional comments: Supple - Respiratory Exam Additional comments: Clear Lung corbett bilaterally - Cardiovascular Exam Cardiovascular Exam: +S1, +S2 - GI/Abdominal Exam GI & Abdominal Exam: Soft Additional comments: mild suprapubic and RT sided tenderness - Extremities Exam Additional comments: no edema - Neurological Exam Additional comments: able to move all extremities Results - Vital Signs Recent Vital Signs: Last Vital Signs Temp 98 F 05/02/17 16:00 Pulse 68 05/02/17 16:00 Resp 20 05/02/17 16:00 BP 149/78 05/02/17 17:22 Pulse Ox 99 05/02/17 16:00 - Labs Result Diagrams: 05/02/17 07:00 05/02/17 07:00 Labs: Laboratory Results - last 24 hr 05/01/17 05/02/17 05/02/17 22:33 05:02 07:00 WBC 13.7 H RBC 3.60 Hgb 9.6 L Hct 30.9 L MCV 85.8 MCH 26.7 MCHC 31.1 RDW 14.5 Plt Count 215 MPV 9.6 Gran % 80.0 H Lymph % (Auto) 10.7 L [place] % (Auto) 8.4 H Eos % (Auto) 0.8 L Baso % (Auto) 0.1 Gran # 10.94 H Lymph # 1.5 [place] # 1.2 H Eos # 0.1 Baso # 0.02 Sodium Potassium Chloride Carbon Dioxide Anion Gap BUN Creatinine Est GFR ( Amer) Est GFR (Non-Af Amer) POC Glucose (mg/dL) 162 H 181 H Random Glucose Calcium Phosphorus Magnesium Total Bilirubin AST ALT Alkaline Phosphatase Total Protein Albumin Globulin Albumin/Globulin Ratio 05/02/17 07:00 WBC RBC Hgb Hct MCV MCH MCHC RDW Plt Count MPV Gran % Lymph % (Auto) [place] % (Auto) Eos % (Auto) Baso % (Auto) Gran # Lymph # [place] # Eos # Baso # Sodium 134 Potassium 4.8 Chloride 97 L Carbon Dioxide 31 Anion Gap 11 BUN 31 H Creatinine 1.2 Est GFR ( Amer) > 60 Est GFR (Non-Af Amer) 57 POC Glucose (mg/dL) Random Glucose 105 Calcium 8.8 Phosphorus 2.8 Magnesium 2.3 H Total Bilirubin 0.5 AST 177 H ALT 233 H Alkaline Phosphatase 104 Total Protein 6.2 Albumin 3.3 Globulin 2.9 Albumin/Globulin Ratio 1.1 WBC - 21.6 H & H - 11.2, 35.2 Platelets - 255 CO2 - 27 BUN - 64 Creatine - 1.5 AST - 147 ALT - 151 - Imaging and Cardiology CT scan - abdomen Additional comment: CT abd/pelvis revealed gallstones; significant amount of stool present on right side of colon. Assessment & Plan - Assessment and Plan (Free Text) Plan: 87 y/o patient with a Hx of prostate CA, chronic indwelling schroeder catheter, admitted with a 4 day Hx of abdominal pain, constipation. Has WBC of 21.6. Clinically, patient also has significant amount of stool present in RT side of colon. R/O probable UTI. Patient has been started on Meropenem. Patient is on chronic, early-on Prednisone therapy. CT also shows some thickening of the rectal area; R/O C. Diff. Will send request for stool. Continue Abx. We will start the patient on Miralax. Will continue to closely follow patient's care. Case discussed with PCP, oncologist Dr. Chiu ___ covering Dr. Hunt.
[2017-05-02] MEDS: Benzocaine/Menthol (Cepacol) Lozenge MT PRN (18:10)
--- NOTE | 2017-05-02 18:15 | PN ---
REASON FOR CONSULTATION: Coronary artery disease, cardiomyopathy, ICD, PAF. SUBJECTIVE: The patient is an 87-year-old male. The patient denies any chest pain, shortness of breath, or any palpitations; yesterday with a more of short of breath and we gave 2 doses of Lasix, feels better. PHYSICAL EXAMINATION: As follows; VITAL SIGNS: Temperature afebrile, heart rate 75, blood pressure 133/64. HEENT: PERRLA. Extraocular muscles are intact. NECK: Supple. No carotid bruit or thyromegaly. CHEST: Clear to auscultation. HEART: S1 and S2, regular. ABDOMEN: Soft. EXTREMITIES: Clubbing and cyanosis negative. LABORATORY DATA: Blood workup as follows: WBC 13%, hemoglobin 9.6, hematocrit 30.9, platelet count 215. Chemistry shows sodium 134, potassium 4.0, chloride 97, carbon dioxide 31, anion gap of 11, BUN 31, and creatinine 1.2. AST 177, ALT 233. IMPRESSION: 1. Elevated liver enzyme. 2. Decompensated congestive heart failure. 3. Cardiomyopathy. 4. Coronary artery disease. 5. Coronary artery bypass graft, pre and post coronary artery bypass graft, percutaneous transluminal coronary angioplasty and status post automated implantable cardioverter defibrillator, status post recently in October, changed 6 weeks ago. 6. Indwelling Avendano catheter. 7. Hematuria. 8. Paroxysmal atrial fibrillation. 9. Hypertension. 10. History of deep venous thrombosis. 11. *------*. 12. Chronic obstructive pulmonary disease. 13. Decondition of body. 14. Hypothyroidism. RECOMMENDATION: Continue antibiotic. We gave extra dose of Lasix yesterday; monitor H and H; monitor BUN and creatinine. We will give one extra dose this afternoon. Elevated liver enzymes could be secondary to passive congestion, transaminase was given to stop the bleeding. The patient to continue with CBI. We will follow up with you. We will check electrolytes in the morning and we will check liver enzymes in the morning. If trend is going up, and now is trending down, then we will be concerned about continuation of amiodarone. For now, trend is down, we will continue. We will follow with you. We will add TSH and BNP in the morning. Thank you *------* for providing the opportunity in taking care of the patient. Mely Chavarria MD [facility] # [id number]
--- NOTE | 2017-05-02 22:16 | PN ---
DATE: 05/02/2017 SUBJECTIVE: The patient is currently seen in the TCU. He is sitting up in bed, receiving IV antibiotic therapy. He completed the course of antibiotics for his Klebsiella urinary tract infection. He continues to remain stable. He is currently off continuous bladder irrigation. OBJECTIVE: VITAL SIGNS: Blood pressure 117/56, temperature 98.2, respiratory rate 18 with pulse of 75 and pulse oximetry is 97%. HEENT: Exam shows him to be normocephalic, atraumatic. Conjunctivae are pale. Sclerae are nonicteric. NECK: Supple. No jugular vein distention. CHEST: Clear to auscultation and percussion. No rales. No rhonchi. No wheezing. CARDIOVASCULAR: Shows regular S1 and S2. Aortic stenosis, mitral regurgitation, tricuspid regurgitation. No S3. No S4. No rub. ABDOMEN: Soft. Bowel sounds normal. Nondistended. No rebound. No guarding. No masses. EXTREMITIES: Show no lower extremity cyanosis,clubbing or edema. LABORATORY DATA AND IMAGING: CBC, today white blood cell count 13.7 with a hemoglobin 9.6 and a platelet count of 215,000. Chemistries: Electrolytes are normal. Sodium 134, potassium of 4.8, BUN 31 with creatinine of 1.2 at baseline levels. Glucose 105, calcium 8.8 with a phosphorous of 2.8, magnesium level of 2.3. Mild elevation of liver enzymes. MEDICATIONS: Medication list reviewed. The patient is currently on ceftazidime/avibactam, Colace, amiodarone, Dilaudid, DuoNeb, tranexamic acid, Lanoxin, Lasix, Lipitor, MiraLax, Mucinex, PhosLo, prednisone, Protonix, Pulmicort, Reglan, Singulair, Synthroid, Tylenol p.r.n., vitamin D and Zofran. ASSESSMENT: 1. History of bladder cancer with recurrent hematuria status post bladder irrigation. The patient being followed by *------* and Dr. Louise. 2. History of Klebsiella urinary tract infection. The patient is completing a course of IV antibiotic therapy. 3. Mild hyponatremia. Sodium level normal today at 134. 4. History of anemia. Hemoglobin stable in or around 10. 5. Status post hyperkalemia. Potassium level is now normal. 6. History of arteriosclerotic heart disease, status post coronary artery bypass graft, currently stable. 7. History of percutaneous transluminal coronary angioplasty, currently stable. 8. History of hypertension, currently controlled on present medication. 9. History of chronic obstructive pulmonary disease, currently stable. 10. Past history of deep venous thrombosis. PLAN: 1. The patient is stable from renal standpoint. Renal parameters are back to baseline. 2. The patient may complete a course of IV antibiotic therapy for Klebsiella urinary tract infection. 3. We will discontinue formal renal followup at this time. Please re-consult on p.r.n. basis. Choco White MD
--- NOTE | 2017-05-03 00:13 | PN ---
DATE: 05/01/2017 SUBJECTIVE: The patient is seen in the transitional care unit [facility]. He is feeling okay, although he is complaining of shortness of breath. He is in a very mild respiratory distress which he reports has been present for a few days. PHYSICAL EXAMINATION VITAL SIGNS: He is afebrile, temp of 98, pulse of 70, respirations 20, BP 140/67. GENITALIA: Phallus is normal. Avendano catheter in place which is draining clear colored urine with the CBI being held. EXTREMITIES: He does have positive upper and lower extremity edema. IMPRESSION AND PLAN: Urologically, he appears stable with the Avendano catheter draining clear at this point. He is having some respiratory difficulties, which need to be addressed urologically. The plan is when he has medically improved, we will hold the CBI and the patient can be discharged home if his urine remains clear. We will continue to follow him with you. Eddie Louise MD
[2017-05-03] MEDS: Albuterol-Ipratrop 3 mg / 0.5 (3 ml) UD IH SCH ×5 (03:00→20:50)
[2017-05-03] MEDS: Levothyroxine 125 MCG TAB PO SCH (05:53)
[2017-05-03] MEDS: Pantoprazole 40 mg EC Tab PO SCH (05:53)
[2017-05-03] MEDS: Benzocaine/Menthol (Cepacol) Lozenge MT PRN ×3 (05:55→13:49)
[2017-05-03] MEDS: Budesonide 0.5 mg/2 ml Inhal Susp UD IH SCH ×2 (07:12→20:50)
[2017-05-03 07:16] LABS: B-TYPE NATRIURETIC PEPTIDE 2400 pg/mL (0-450); BASO # 0.03 K/mm3 (0.0-2.0); BASO % 0.3 % (0.0-3.0); EOS # 0.2 (0.0-0.7); EOS % 1.4 % (1.5-5.0); GRAN # 8.39 (1.4-6.5); GRAN % 74.4 % (50.0-68.0); HEMOGLOBIN 9.3 gm/dL (14.0-18.0); LYMPH # 1.5 (1.2-3.4); LYMPH % 13.4 % (22.0-35.0); MEAN CORPUSCULAR HEMOGLOBIN 26.6 pg (25.0-35.0); MEAN PLATELET VOLUME 9.7 fl (7.0-11.0); MONO # 1.2 (0.1-0.6); MONO % 10.5 % (1.0-6.0); PLATELET COUNT 203 10^3/uL (120.0-450.0); RBC 3.49 10^6/uL (3.5-6.1); RED CELL DISTRIBUTION WIDTH 14.6 % (11.5-14.5); WHITE BLOOD COUNT 11.3 10^3/ul (4.5-11.0)
[2017-05-03 07:18] LABS: ALB/GLOB RATIO 1.2 (1.1-1.8); ALBUMIN 2.9 g/dL (3.0-4.8); ALT/SGPT 174 U/L (7-56); AST/SGOT 111 U/L (15-59); BLOOD UREA NITROGEN 31 mg/dL (7-21); CALCIUM 8.3 mg/dL (8.4-10.5); GFR AFRICAN-AMERICAN > 60; GFR NON-AFRICAN AMERICAN 57
--- NOTE | 2017-05-03 07:54 | CP.PCM.PN ---
Subjective - Date & Time of Evaluation Date of Evaluation: 05/03/17 Time of Evaluation: 07:30 - Subjective Subjective: Patient is seen this morning in room 302 bed 1. He is feeling better. Urine is draining clear with intermittent irrigation. Objective - Vital Signs/Intake and Output Vital Signs (last 24 hours): Temp Pulse Resp BP Pulse Ox 98.1 F 79 20 131/66 93 L 05/03/17 06:00 05/03/17 06:00 05/03/17 06:00 05/03/17 06:00 05/03/17 06:00 Intake and Output: 05/03/17 05/03/17 06:59 18:59 Output Total 1000 Balance -1000 - Medications Medications: Current Medications Acetaminophen (Tylenol 325mg Tab) 650 mg PO Q4H PRN; Protocol PRN Reason: Pain, Mild (1-3) Albuterol/Ipratropium (Duoneb 3 Mg/0.5 Mg (3 Ml) Ud) 3 ml IH [id number] JEANA PRN Reason: Protocol Last Admin: 05/03/17 07:12 Dose: 3 ml Amiodarone HCl (Cordarone) 200 mg PO DAILY JEANA PRN Reason: Protocol Last Admin: 05/02/17 10:27 Dose: 200 mg Atorvastatin Calcium (Lipitor) 10 mg PO DIN JEANA PRN Reason: Protocol Last Admin: 05/02/17 17:15 Dose: 10 mg Benzocaine/Menthol (Cepacol Sore Throat) 1 reagan MT Q4H PRN; Protocol PRN Reason: Sore Throat Last Admin: 05/03/17 05:55 Dose: 1 reagan Budesonide (Pulmicort Respules) 0.5 mg IH [id number] JEANA PRN Reason: Protocol Last Admin: 05/03/17 07:12 Dose: 0.5 mg Calcium Acetate (Phoslo) 667 mg PO DAILY JEANA PRN Reason: Protocol Last Admin: 05/02/17 10:30 Dose: 667 mg Cholecalciferol (Vitamin D) 1,000 iu PO DAILY JEANA PRN Reason: Protocol Last Admin: 05/02/17 10:31 Dose: 1,000 iu Digoxin (Lanoxin) 0.125 mg PO 1400 JEANA PRN Reason: Protocol Last Admin: 05/02/17 14:36 Dose: 0.125 mg Docusate Sodium (Colace) 100 mg PO TID JEANA PRN Reason: Protocol Last Admin: 05/02/17 17:34 Dose: 100 mg Furosemide (Lasix) 40 mg IVP DAILY JEANA PRN Reason: Protocol Last Admin: 05/02/17 10:29 Dose: 40 mg Guaifenesin (Mucinex La) 600 mg PO BID JEANA PRN Reason: Protocol Last Admin: 05/02/17 17:35 Dose: 600 mg Home Med (Home Med) 2 unit PO BID JEANA PRN Reason: Protocol Last Admin: 05/02/17 17:34 Dose: 2 unit Hydromorphone HCl (Dilaudid) 1.5 mg IVP Q4H PRN; Protocol PRN Reason: Pain, severe (8-10) Last Admin: 04/30/17 03:20 Dose: 1.5 mg Levothyroxine Sodium (Synthroid) 125 mcg PO 0600 [facility] PRN Reason: Protocol Last Admin: 05/03/17 05:53 Dose: 125 mcg Metoclopramide HCl (Reglan) 5 mg IVP Q8 PRN PRN Reason: Nausea/Vomiting Montelukast Sodium (Singulair) 10 mg PO DAILY [facility] PRN Reason: Protocol Last Admin: 05/02/17 10:31 Dose: 10 mg Nystatin (Nystatin Oral Susp) 5 ml PO QID [facility] PRN Reason: Protocol Ondansetron HCl (Zofran Inj) 4 mg IVP Q4H PRN; Protocol PRN Reason: Nausea/Vomiting Last Admin: 04/30/17 03:26 Dose: 4 mg Pantoprazole Sodium (Protonix Ec Tab) 40 mg PO 0600 [facility] PRN Reason: Protocol Last Admin: 05/03/17 05:53 Dose: 40 mg Polyethylene Glycol (Miralax) 17 gm PO BID JEANA PRN Reason: Protocol Last Admin: 05/02/17 17:34 Dose: 17 gm Prednisone (Prednisone Tab) 10 mg PO DAILY [facility] Last Admin: 05/02/17 10:31 Dose: 10 mg - Labs Labs: 05/03/17 06:30 05/03/17 06:30 - Constitutional Appears: No Acute Distress - Head Exam Head Exam: ATRAUMATIC, NORMOCEPHALIC - Respiratory Exam Respiratory Exam: Wheezes, NORMAL BREATHING PATTERN - Cardiovascular Exam Cardiovascular Exam: +S1, +S2 - GI/Abdominal Exam GI & Abdominal Exam: Soft, Tenderness, Normal Bowel Sounds - Neurological Exam Neurological Exam: Alert, Awake, Oriented x3 Assessment and Plan - Assessment and Plan (Free Text) Assessment: Klebsiella UTI Chronic obstructive pulmonary disease Chronic heart failure Hematuria Metastatic prostate cancer Hypothyroidism DMII Plan: continue respiratory treatments and prednisone off antibiotics; repeat urine culture pending sputum culture pending continue intermittent bladder irrigation
[2017-05-03] MEDS: Insulin Human NPH/Reg 70/30 Vial(3 ml) SC SCH ×4 (08:00→21:48)
--- NOTE | 2017-05-03 08:34 | PN ---
GASTROINTESTINAL FOLLOWUP NOTE DATE OF SERVICE: 05/02/2017 SUBJECTIVE: Seen and examined at the bedside earlier today. The patient was out of bed to the chair. Denies any nausea or vomiting. He still occasionally gets right lower abdominal discomfort in the suprapubic area. No hematuria. Moving his bowels several times a day, but with the formed stool. No new complaints. Occasional cough. No reports of overt GI bleed. PHYSICAL EXAMINATION: VITAL SIGNS: Temperature is 98.2, blood pressure is 117/56, pulse is 75, respirations are 18, and 97 nasal cannula. HEENT: Sclerae anicteric. NECK: Supple. CARDIAC: S1 and S2. LUNGS: Sounds with good air entry. Positive rhonchi. I did not hear any wheezing. ABDOMEN: With bowel sounds, soft, nondistended and nontender at this time. EXTREMITIES: Mild edema. No calf tenderness. NEUROLOGIC: Awake, alert, and oriented. LABORATORY DATA: Labs today are WBC is 13.7, H and H is 9.6, and 30.9, and platelets are 215. Sodium is 134, K is 4.8, BUN is 31, and creatinine is 1.2. Mag is 2.3, total bilirubin is 0.5, AST is 177, and ALT is 233, this showed some improvement compared to yesterday's. The patient did have a chest x-ray on 04/29/2017 and that showed minor right basilar atelectasis. No pneumothorax. ASSESSMENT AND PLAN: This is an 87-year-old male with a metastatic prostate cancer. He also has urinary tract infection with positive Klebsiella, elevated liver enzymes could be secondary to medications or congestion, chronic obstructive pulmonary disease, coronary artery disease and diabetes mellitus. The patient did have CT scan on 04/23/2017 and that showed no acute findings. His last ultrasound noted was in 11/2016 in that he does have history of cholelithiasis, common bile duct measured 12.5 mm. Hepatitis panel was done in 12/2016 and that was negative. We will continue to follow closely. The patient was seen and case discussed with Dr. Lin. We will also continue the bowel regimen, he is on Colace and MiraLax. Continue gastrointestinal prophylaxis. The patient was seen and case discussed with Dr. Bal. HÉCTOR Jones [facility] # [id number]
[2017-05-03] MEDS: TRANEXAMIC ACID 650 MG PO SCH ×2 (09:46→17:09)
[2017-05-03] MEDS: guaiFENesin 600 mg ER Tab PO SCH ×2 (09:49→17:10)
[2017-05-03] MEDS: POLYETHYLENE GLYCOL 3350 17 GM/Dose PACKET PO SCH ×2 (09:49→17:10)
[2017-05-03] MEDS: Nystatin 100,000 Units/ml Oral Susp 5 ml UD PO SCH ×4 (09:49→21:31)
[2017-05-03] MEDS: Digoxin 125 mcg (0.125 mg) Tab PO SCH (13:45)
--- NOTE | 2017-05-03 22:11 | PN ---
DATE: 05/03/2017 REASON FOR CONSULTATION: Coronary artery disease, cardiomyopathy, ICD, PAF. SUBJECTIVE: The patient denies any chest pain, shortness of breath, or any palpitations. Extra dose of Lasix was given. The patient feels a lot better. PHYSICAL EXAMINATION: As follows: VITAL SIGNS: Temperature afebrile, heart rate is 77, blood pressure 124/63. HEENT: PERRLA. Extraocular muscles are intact. NECK: Supple. No carotid bruit. No thyromegaly. CHEST: Clear to auscultation. HEART: S1 and S2 regular. ABDOMEN: Soft. EXTREMITIES: Clubbing and cyanosis negative. LABORATORY DATA: Blood workup as follows. WBC 11.3, hemoglobin 9.3, hematocrit 30.0, platelet count 203. Chemistry shows sodium 137, potassium 4.1, chloride 99, carbon dioxide 30, anion gap of 10, BUN 31, creatinine 1.2. BNP 2400. IMPRESSION: Decompensated congestive failure, acute on chronic congestive systolic dysfunction, cardiomyopathy, ischemic status post coronary artery bypass graft, hematuria, prostate cancer, elevated transaminases (liver enzymes) cardiomyopathy, coronary artery disease, status post automatic implantable cardioverter defibrillator, status post defibrillator generator change 6 weeks ago, status post Avendano catheter indwelling, hematuria, paroxysmal atrial fibrillation,*------*, hypertension, history of deep vein thrombosis off Eliquis because of the hematuria, chronic obstructive pulmonary disease, deconditioning of the body, hypothyroidism. RECOMMENDATIONS: Continue antibiotic. Continue gentle diuretics, mild electrolytes. Continue CBI, improved, no more further hematuria noted. Renal function improved. Continue amiodarone. Monitor renal function. Monitor LFTs. TSH is 6.53. AST is coming down. We will increase levothyroxine to 125 mcg because of the elevated *------*. We will follow with you. Repeat the lab in the morning. Thank you Dr. Polk for the opportunity in taking care of Perry Trinh. Mely Chavarria MD cc: ; Alissa Polk MD
--- NOTE | 2017-05-04 01:18 | PN ---
DATE: 05/03/2017 SUBJECTIVE: The patient is in room 302. No fevers. No chills. PHYSICAL EXAMINATION VITAL SIGNS: Temperature is 98, blood pressure is 140/50, and respiratory rate of 16. HEENT: Unremarkable. NECK: Supple. HEART: Normal S1 and S2. LUNGS: Decreased breath sounds. ABDOMEN: Soft, nontender. LABORATORY DATA: Reveals white count of 11,300 and hemoglobin of 9. The patient is on prednisone. ASSESSMENT AND PLAN: An 87-year-old male seen earlier this morning in room 302, doing well, who has had a carbapenem-resistant Klebsiella urinary tract infection, has completed with the Avycaz therapy, currently off of antibiotics, and we will follow closely with you. Elliot Hernandez MD
[2017-05-04] MEDS: Albuterol-Ipratrop 3 mg / 0.5 (3 ml) UD IH SCH ×4 (02:35→20:32)
[2017-05-04] MEDS: Pantoprazole 40 mg EC Tab PO SCH (05:51)
[2017-05-04] MEDS: Levothyroxine 125 MCG TAB PO SCH (05:51)
[2017-05-04] MEDS: Insulin Human NPH/Reg 70/30 Vial(3 ml) SC SCH ×4 (06:31→21:56)
[2017-05-04 07:15] LABS: BASO # 0.03 K/mm3 (0.0-2.0); BASO % 0.3 % (0.0-3.0); EOS # 0.2 (0.0-0.7); EOS % 1.3 % (1.5-5.0); GRAN # 8.79 (1.4-6.5); GRAN % 73.4 % (50.0-68.0); LYMPH # 1.8 (1.2-3.4); LYMPH % 15.3 % (22.0-35.0); MEAN CORPUSCULAR HEMOGLOBIN 27.2 pg (25.0-35.0); MEAN PLATELET VOLUME 10.1 fl (7.0-11.0); MONO # 1.2 (0.1-0.6); MONO % 9.7 % (1.0-6.0); PLATELET COUNT 243 10^3/uL (120.0-450.0); RBC 3.67 10^6/uL (3.5-6.1); RED CELL DISTRIBUTION WIDTH 14.9 % (11.5-14.5)
[2017-05-04] MEDS: Budesonide 0.5 mg/2 ml Inhal Susp UD IH SCH ×2 (07:22→20:31)
[2017-05-04 07:23] LABS: ALB/GLOB RATIO 1.3 (1.1-1.8); ALBUMIN 3.4 g/dL (3.0-4.8); ALT/SGPT 159 U/L (7-56); AST/SGOT 80 U/L (15-59); BLOOD UREA NITROGEN 29 mg/dL (7-21); CALCIUM 8.6 mg/dL (8.4-10.5); GFR AFRICAN-AMERICAN > 60; GFR NON-AFRICAN AMERICAN > 60
--- NOTE | 2017-05-04 07:24 | CP.PCM.PN ---
Subjective - Date & Time of Evaluation Date of Evaluation: 05/04/17 Time of Evaluation: 07:21 - Subjective Subjective: PGY-[address] Carballo Urine clear, yellow, not cloudy Abdominal pain much improves CBI has stopped x 2 days Tranexamic acid down to 1 per day Objective - Vital Signs/Intake and Output Vital Signs (last 24 hours): Temp Pulse Resp BP Pulse Ox 98.1 F 67 20 142/75 99 05/03/17 16:00 05/03/17 16:00 05/03/17 16:00 05/03/17 16:00 05/03/17 16:00 Intake and Output: 05/04/17 05/04/17 06:59 18:59 Output Total 2200 Balance -2200 - Medications Medications: Current Medications Acetaminophen (Tylenol 325mg Tab) 650 mg PO Q4H PRN; Protocol PRN Reason: Pain, Mild (1-3) Albuterol/Ipratropium (Duoneb 3 Mg/0.5 Mg (3 Ml) Ud) 3 ml IH [id number] JEANA PRN Reason: Protocol Last Admin: 05/04/17 02:35 Dose: 3 ml Amiodarone HCl (Cordarone) 200 mg PO DAILY JEANA PRN Reason: Protocol Last Admin: 05/03/17 09:48 Dose: 200 mg Atorvastatin Calcium (Lipitor) 10 mg PO DIN JEANA PRN Reason: Protocol Last Admin: 05/03/17 17:08 Dose: 10 mg Benzocaine/Menthol (Cepacol Sore Throat) 1 reagan MT Q4H PRN; Protocol PRN Reason: Sore Throat Last Admin: 05/03/17 13:49 Dose: 1 reagan Budesonide (Pulmicort Respules) 0.5 mg IH [id number] JEANA PRN Reason: Protocol Last Admin: 05/03/17 20:50 Dose: 0.5 mg Calcium Acetate (Phoslo) 667 mg PO DAILY JEANA PRN Reason: Protocol Last Admin: 05/03/17 09:50 Dose: 667 mg Cholecalciferol (Vitamin D) 1,000 iu PO DAILY JEANA PRN Reason: Protocol Last Admin: 05/03/17 09:50 Dose: 1,000 iu Digoxin (Lanoxin) 0.125 mg PO 1400 JEANA PRN Reason: Protocol Last Admin: 05/03/17 13:45 Dose: 0.125 mg Docusate Sodium (Colace) 100 mg PO TID JEANA PRN Reason: Protocol Last Admin: 05/03/17 17:08 Dose: 100 mg Furosemide (Lasix) 40 mg IVP DAILY JEANA PRN Reason: Protocol Last Admin: 05/03/17 09:48 Dose: 40 mg Guaifenesin (Mucinex La) 600 mg PO BID JEANA PRN Reason: Protocol Last Admin: 05/03/17 17:10 Dose: 600 mg Home Med (Home Med) 2 unit PO BID JEANA PRN Reason: Protocol Last Admin: 05/03/17 17:09 Dose: 1 unit Hydromorphone HCl (Dilaudid) 1.5 mg IVP Q4H PRN; Protocol PRN Reason: Pain, severe (8-10) Last Admin: 04/30/17 03:20 Dose: 1.5 mg Levothyroxine Sodium (Synthroid) 125 mcg PO 0600 JEANA PRN Reason: Protocol Last Admin: 05/04/17 05:51 Dose: 125 mcg Metoclopramide HCl (Reglan) 5 mg IVP Q8 PRN PRN Reason: Nausea/Vomiting Montelukast Sodium (Singulair) 10 mg PO DAILY JEANA PRN Reason: Protocol Last Admin: 05/03/17 09:50 Dose: 10 mg Nystatin (Nystatin Oral Susp) 5 ml PO QID JEANA PRN Reason: Protocol Last Admin: 05/03/17 21:31 Dose: 5 ml Ondansetron HCl (Zofran Inj) 4 mg IVP Q4H PRN; Protocol PRN Reason: Nausea/Vomiting Last Admin: 04/30/17 03:26 Dose: 4 mg Pantoprazole Sodium (Protonix Ec Tab) 40 mg PO 0600 JEANA PRN Reason: Protocol Last Admin: 05/04/17 05:51 Dose: 40 mg Polyethylene Glycol (Miralax) 17 gm PO BID JEANA PRN Reason: Protocol Last Admin: 05/03/17 17:10 Dose: 17 gm Prednisone (Prednisone Tab) 10 mg PO DAILY [facility] Last Admin: 05/03/17 09:50 Dose: 10 mg - Labs Labs: 05/03/17 06:30 05/03/17 06:30 - Head Exam Head Exam: ATRAUMATIC, NORMAL INSPECTION, NORMOCEPHALIC - Eye Exam Eye Exam: EOMI, Normal appearance, PERRL. absent: Scleral icterus Pupil Exam: NORMAL ACCOMODATION - ENT Exam ENT Exam: Mucous Membranes Moist - Neck Exam Neck Exam: absent: Meningismus - Respiratory Exam Respiratory Exam: Decreased Breath Sounds, Clear to Ausculation Bilateral. absent: Rales, Rhonchi, Wheezes - Cardiovascular Exam Cardiovascular Exam: REGULAR RHYTHM, +S1, +S2 - GI/Abdominal Exam GI & Abdominal Exam: Soft, Tenderness. absent: Firm, Rigid - Extremities Exam Extremities Exam: Normal Capillary Refill. 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 Pt had hemauturia s/p cystoscopy (05/01/17). He is in contact isolation for ESBL, Carbapenem-resistant Klebsiella UTI, complicated. Pt finished Avycaz, curently observe off abx. Clots likely from microscopic hematuria were found in schroeder so started continuous bladder irrigation, and abdominal pain improved. Pt has new onset nausea on zofran and reglan prn. Abdominal pain - improves Hematuria with Clots in urine - resolved, stopped CBI x 2 days Gross Hemautria - resolved Due to prostate ca - likely referred pain from origin - hold ASA and Plavix. on home tranexamc acid 650 mg tapering to 1 tablet daily UTI, complicated, indwelling Schroeder catheter growing Carbapenem-resistant Klebsiella history of right foot necrotic ulcer with surrounding cellulitis - switch Merrem to Avycaz and pending repeat urine cx (avoid Amikacin), finished 1-week course of antibiotics - CT scan of the abdomen and pelvis which showed mural thickening of the urinary bladder - Pending repeat urine culture - Observe off antibiotics Transaminitis - possible amiodarone vs lipitor Constipation - resolved - s/p lactulose. - CT negative of acute GI event. (+) GB sludge, (+) lymphadenopathy as before - continue Colace, increase Miralax to BID, hold for stool>2/day Stage 4 prostate CA, castrate resistant, with bone mets Hx DVT not on anticoagulant for hematuria - LDH 769 - PSA 33 (03/2017) - Bone Scan (04/27/17) - New osseous metastatic disease affecting axial skeleton at thoracolumbar spine, pelvis, and proximal femurs. - CT scan (03/18/17): stable retrocrural and retroperitoneal lymphadenopahty - dilaudid prn for pain control - Due to age and comorbidities, pt is not a candidate for chemotherapy - For his prostate cancer, pt was initially on Casodex (could not tolerate xtandi), currently on Zytiga once daily and prednisone. - Dr. Carballo met with family and pt. Agreed supportive therapy. COPD exacerbation - Duoneb, pulmicort, guifenesin, montelukast, spiriva, prednisone 10 CHF, CAD s/p CABG, ischemic cardiomyopathy s/p cardiac pacemaker, A-fib, CHF - IV Lasix 40 daily Hypothyroidism - On synthroid 100 A-fib on amiodarone, digioxin CABG S/P pacemaker and ICD placement - Dc tele, Continue Lasix, amiodarone - may have hypoaldosteronism NIDDM - ISSS Prophylaxis - Hx DVT but hematuria, SCD Disposition - TCU discharge 05/06 (sat) - Port-a-cath placement - Giuseppe schroeder 05/01/17 s/r/d/w Dr. Carballo
--- NOTE | 2017-05-04 09:37 | CP.PCM.PN ---
Subjective - Date & Time of Evaluation Date of Evaluation: 05/04/17 Time of Evaluation: 09:30 - Subjective Subjective: S&E at bedside, chart reviewed. Had small BM yesterday, had another today but does not feel cleaned out, request extra laxative. No N/V , Sob or chest pain. Same lower abdominal pain/back pain, with improvement. Has schroeder draining clear urine, on CBI, intermittent. Objective - Vital Signs/Intake and Output Vital Signs (last 24 hours): Temp Pulse Resp BP Pulse Ox 98.1 F 67 20 142/75 99 05/03/17 16:00 05/03/17 16:00 05/03/17 16:00 05/03/17 16:00 05/03/17 16:00 Intake and Output: 05/04/17 05/04/17 06:59 18:59 Output Total 2200 Balance -2200 - Medications Medications: Current Medications Acetaminophen (Tylenol 325mg Tab) 650 mg PO Q4H PRN; Protocol PRN Reason: Pain, Mild (1-3) Albuterol/Ipratropium (Duoneb 3 Mg/0.5 Mg (3 Ml) Ud) 3 ml IH [id number] JEANA PRN Reason: Protocol Last Admin: 05/04/17 07:20 Dose: 3 ml Amiodarone HCl (Cordarone) 200 mg PO DAILY JEANA PRN Reason: Protocol Last Admin: 05/03/17 09:48 Dose: 200 mg Atorvastatin Calcium (Lipitor) 10 mg PO DIN JEANA PRN Reason: Protocol Last Admin: 05/03/17 17:08 Dose: 10 mg Benzocaine/Menthol (Cepacol Sore Throat) 1 reagan MT Q4H PRN; Protocol PRN Reason: Sore Throat Last Admin: 05/03/17 13:49 Dose: 1 reagan Budesonide (Pulmicort Respules) 0.5 mg IH [id number] JEANA PRN Reason: Protocol Last Admin: 05/04/17 07:22 Dose: Not Given Calcium Acetate (Phoslo) 667 mg PO DAILY JEANA PRN Reason: Protocol Last Admin: 05/03/17 09:50 Dose: 667 mg Cholecalciferol (Vitamin D) 1,000 iu PO DAILY JEANA PRN Reason: Protocol Last Admin: 05/03/17 09:50 Dose: 1,000 iu Digoxin (Lanoxin) 0.125 mg PO 1400 JEANA PRN Reason: Protocol Last Admin: 05/03/17 13:45 Dose: 0.125 mg Docusate Sodium (Colace) 100 mg PO TID JEANA PRN Reason: Protocol Last Admin: 05/03/17 17:08 Dose: 100 mg Furosemide (Lasix) 40 mg IVP DAILY JEANA PRN Reason: Protocol Last Admin: 05/03/17 09:48 Dose: 40 mg Guaifenesin (Mucinex La) 600 mg PO BID JEANA PRN Reason: Protocol Last Admin: 05/03/17 17:10 Dose: 600 mg Home Med (Home Med) 2 unit PO BID JEANA PRN Reason: Protocol Last Admin: 05/03/17 17:09 Dose: 1 unit Hydromorphone HCl (Dilaudid) 1.5 mg IVP Q4H PRN; Protocol PRN Reason: Pain, severe (8-10) Last Admin: 04/30/17 03:20 Dose: 1.5 mg Lactulose (Enulose) 20 gm PO ONCE ONE Stop: 05/04/17 10:01 Levothyroxine Sodium (Synthroid) 125 mcg PO 0600 JEANA PRN Reason: Protocol Last Admin: 05/04/17 05:51 Dose: 125 mcg Metoclopramide HCl (Reglan) 5 mg IVP Q8 PRN PRN Reason: Nausea/Vomiting Montelukast Sodium (Singulair) 10 mg PO DAILY JEANA PRN Reason: Protocol Last Admin: 05/03/17 09:50 Dose: 10 mg Nystatin (Nystatin Oral Susp) 5 ml PO QID JEANA PRN Reason: Protocol Last Admin: 05/03/17 21:31 Dose: 5 ml Ondansetron HCl (Zofran Inj) 4 mg IVP Q4H PRN; Protocol PRN Reason: Nausea/Vomiting Last Admin: 04/30/17 03:26 Dose: 4 mg Pantoprazole Sodium (Protonix Ec Tab) 40 mg PO 0600 [facility] PRN Reason: Protocol Last Admin: 05/04/17 05:51 Dose: 40 mg Polyethylene Glycol (Miralax) 17 gm PO BID JEANA PRN Reason: Protocol Last Admin: 05/03/17 17:10 Dose: 17 gm Prednisone (Prednisone Tab) 10 mg PO DAILY [facility] Last Admin: 05/03/17 09:50 Dose: 10 mg - Labs Labs: 05/04/17 06:25 05/04/17 06:25 - Constitutional Appears: No Acute Distress - Head Exam Head Exam: NORMAL INSPECTION - Eye Exam Eye Exam: Normal appearance. absent: Scleral icterus - ENT Exam ENT Exam: Mucous Membranes Moist - Neck Exam Neck Exam: Normal Inspection - Respiratory Exam Respiratory Exam: Rales, Rhonchi, NORMAL BREATHING PATTERN. absent: Respiratory Distress - Cardiovascular Exam Cardiovascular Exam: +S1, +S2 - GI/Abdominal Exam GI & Abdominal Exam: Soft, Normal Bowel Sounds. absent: Guarding, Rebound - Extremities Exam Extremities Exam: absent: Calf Tenderness, Pedal Edema - Neurological Exam Neurological Exam: Alert, Awake, Oriented x3 - Skin Skin Exam: Dry, Warm Assessment and Plan - Assessment and Plan (Free Text) Assessment: ASSESSMENT: Improved Abdominal Pain Metestatic Prostate Cancer s/p ct scan GB sludge, (+) lymphadenopathy as before UTI, ESBL Elevated LFT, trending down, maybe mulitifactoral: hepatic congestion, medication induced, GB sludge Chronic constipation CHF COPD CKD CAD w/ stents PLAN: give dose of lactulose, see order continue Colace continue Miralax to BID, hold for stool>2/day on Lasix, Amiodarone, Lipitor trend LFT continue PPI on Prednisone monitor electrolytes and h/h off Plavix and ASA diet as tolerated urology FU Seen and discussed w/ Dr. Bal.
[2017-05-04] MEDS: POLYETHYLENE GLYCOL 3350 17 GM/Dose PACKET PO SCH ×2 (10:50→17:16)
[2017-05-04] MEDS: TRANEXAMIC ACID 650 MG PO SCH ×2 (10:50→17:16)
[2017-05-04] MEDS: guaiFENesin 600 mg ER Tab PO SCH ×2 (10:51→17:16)
[2017-05-04] MEDS: Nystatin 100,000 Units/ml Oral Susp 5 ml UD PO SCH ×4 (10:51→21:14)
--- NOTE | 2017-05-04 11:53 | PN ---
The patient is in the [facility] Translational Care Unit, room 302, bed 1. SUBJECTIVE: The patient was admitted for continued antibiotic treatment, treatment of congestive heart failure, treatment of chronic lung disease, treatment of infection in the abdomen secondary to carcinoma of prostate, metastatic disease to the abdominal lymph nodes. The patient is seen this morning. He is feeling better. He is sitting up having his respiratory treatment. He is complaining of the mouth being dry and irritating. He ____ on the steroid inhalation therapy. PHYSICAL EXAMINATION VITAL SIGNS: This morning, the patient's pulse is 67, blood pressure is 142/75, his respirations are 20 per minute, and O2 saturation is 99%. He is on 2 liters of oxygen. HEENT: The patient's head is normocephalic. NECK: The JVP is flat. No lymphadenopathy in the neck. LUNGS: Trachea is central. Breath sounds are vesicular. Basilar scattered crepitations as well, no rhonchi today. ABDOMEN: Soft. There is some diffuse mild tenderness compared to the extreme tenderness that patient had before. However, the patient has no localizing signs at all, HEART: Normal sinus rhythm. The patient has a cardiac pacemaker and defibrillator. CENTRAL NERVOUS SYSTEM: He is conscious. He is rational and oriented. No motor-sensory dysfunction . Cerebellar function is within normal limits. MEDICATIONS: The patient is on Cepacol throat lozenges . The patient is on Colace, amiodarone, albuterol, and DuoNeb respiratory treatment. The patient is on Pulmicort, Lasix, and digoxin. The patient is on Synthroid, Lipitor, and calcium acetate which is PhosLo for renal insufficiency. The patient is on prednisone 10 mg daily and pantoprazole 40 mg daily. The patient is also getting Reglan 5 mg IV q. 8 hours. at this time, and Singulair 10 mg daily. The patient's diet is heart healthy diet, diabetic. LABORATORY DATA: His lab work recently, last hemoglobin of 10.0, that was done this morning. His white count is 12,000. His chemistry, the liver enzymes; AST is 80, ALT is 159, and they are normal. ASSESSMENT AND PLAN: The patient had recent treatment for sepsis and infection. The patient is on statin. The patient is also treated for respiratory insufficiency. He has mild elevation of TSH. His blood sugar is 133. The patient's condition is improving. His antibiotic has been discontinued at this time and follow up treatment. The urinary bladder, the urine is clear, there is no hematuria. Giselle Polk MD
--- NOTE | 2017-05-04 12:28 | DS ---
HISTORY OF PRESENT ILLNESS: This is an 87-year-old male with history of metastatic prostate cancer, chronic indwelling Avendano catheter, chronic systolic and diastolic heart failure, chronic obstructive pulmonary disease, coronary artery disease, hypothyroidism and recent admission to the hospital for gross hematuria, who presented to the emergency room with abdominal pain. He said that the pain had been getting worse over a period of 4 days. He also complained of constipation. He denied chest pain and shortness of breath. Blood work done in the emergency room showed an elevated white count of 21,600 with left shift. HOSPITAL COURSE: The patient was admitted to the general medical floor for systemic inflammatory response syndrome, urinary tract infection and abdominal pain. Urine and blood cultures were sent. Infectious disease specialist Dr. Hernandez was consulted. The patient was initially started on IV Cleocin and then switched to meropenem by infectious disease. Urine cultures grew Klebsiella pneumoniae and the antibiotic was changed to IV ceftazidime with avibactam. The patient was also seen by oncology Dr. Carballo, gastroenterology, Dr. Bal, cardiology, Dr. Walters and Dr. Chavarria, and nephrology Dr. Lozano. The patient's sodium dropped to 130; he was started on IV fluids and the sodium resolved. It was difficult to get blood from the patient; therefore, he was taken for port placement. Bone scan was done which showed new osseous metastatic disease primarily affecting the exoskeleton in the thoracolumbar spine, pelvis and proximal femurs. Since the patient required further IV antibiotics, he was transferred to the transitional care unit. DISCHARGE DIAGNOSES: Klebsiella pneumoniae urinary tract infection, systemic inflammatory response syndrome, chronic obstructive pulmonary disease, metastatic prostate cancer, chronicheart failure, chronic kidney disease, hyponatremia, constipation,hypothyroidism, type 2 diabetes and coronary artery disease. DISCHARGE MEDICATIONS: Colace 100 mg 3 times a day, amiodarone 200 mg daily, Dilaudid 1.5 mg IV push q.4 hours p.r.n., DuoNeb every 6 hours, digoxin 125 mcg daily, Lasix 40 mg IV daily, insulin 70/30 20 units before meals and at night, Lipitor 10 mg at night, MiraLax 17 g twice a day, Mucinex 600 mg twice a day, PhosLo 667 mg once a day, prednisone 5 mg daily, Protonix 40 mg daily, Pulmicort twice a day via nebulizer, Singulair 10 mg daily, Synthroid 125 mcg daily, vitamin D 1000 units daily, Zofran 4 mg daily IV every 4 hours as needed for nausea. FOLLOWUP: The patient will be followed up in the transitional care unit. Sreedhar Polk MD [facility]
--- NOTE | 2017-05-04 13:03 | CP.PCM.CON ---
History of Present Illness - History of Present Illness History of Present Illness: Palliative consult requested by Dr Rodolfo Polk Reason: Advance care planning 87 year old male transferred to TCU for deconditioning and completion of antibiotic therapy. Recently admitted to acute care with abdominal pain, leukocytosis constipation, UTI. 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 Social History: Non smoker, no alcohol or drug use. Live independently. Family History: Non contributory Advance Care Planning: The patient has an Advanced directive, a copy is in the chart. Review of systems: As per ELIAN, all other systems reviewed and are negative. Past Patient History - Infectious Disease Hx of Infectious Diseases: None - Tetanus Immunizations Tetanus Immunization: Unknown - Past Medical History & Family History Past Medical History?: Yes - Past Social History Smoking Status: Never Smoked Alcohol: None - CARDIAC Hx Cardiac Disorders: Yes Hx Congestive Heart Failure: Yes - PULMONARY Hx Chronic Obstructive Pulmonary Disease (COPD): Yes - NEUROLOGICAL Hx Neurological Disorder: No - HEENT Hx HEENT Problems: Yes Hx Cataracts: Yes (WITH b/t SURGERY) - RENAL Hx Renal Failure: Yes - ENDOCRINE/METABOLIC Hx Diabetes Mellitus Type 2: Yes - HEMATOLOGICAL/ONCOLOGICAL Hx Blood Transfusions: Yes Hx Blood Transfusion Reaction: No - INTEGUMENTARY Hx Dermatological Problems: No - MUSCULOSKELETAL/RHEUMATOLOGICAL Hx Falls: No - GASTROINTESTINAL Hx Gastrointestinal Disorders: Yes - GENITOURINARY/GYNECOLOGICAL Hx Reproductive Disorders: No - PSYCHIATRIC Hx Emotional Abuse: No Hx Physical Abuse: No Hx Substance Use: No - SURGICAL HISTORY Hx Surgeries: Yes (cardiac stents, CABG, defibrillator) Hx Angioplasty: Yes (Multiple angioplasties) Hx Cataract Extraction: Yes Other/Comment: cardiac stents, 4 quadruple bypass in the past 3 years, indwelling schroeder catheter placement - ANESTHESIA Hx Anesthesia Reactions: No Hx Malignant Hyperthermia: No Meds Allergies/Adverse Reactions: Allergies Allergy/AdvReac Type Severity Reaction Status Date / Time Iodinated Contrast- Oral and Allergy ANAPHYLAXIS Verified 04/23/17 11:49 IV Dye levofloxacin [From Levaquin] Allergy ANAPHYLAXIS Verified 04/23/17 11:49 - Medications Medications: Current Medications Acetaminophen (Tylenol 325mg Tab) 650 mg PO Q4H PRN; Protocol PRN Reason: Pain, Mild (1-3) Albuterol/Ipratropium (Duoneb 3 Mg/0.5 Mg (3 Ml) Ud) 3 ml IH [id number] JEANA PRN Reason: Protocol Last Admin: 05/04/17 07:20 Dose: 3 ml Amiodarone HCl (Cordarone) 200 mg PO DAILY JEANA PRN Reason: Protocol Last Admin: 05/04/17 10:49 Dose: 200 mg Atorvastatin Calcium (Lipitor) 10 mg PO DIN JEANA PRN Reason: Protocol Last Admin: 05/03/17 17:08 Dose: 10 mg Benzocaine/Menthol (Cepacol Sore Throat) 1 reagan MT Q4H PRN; Protocol PRN Reason: Sore Throat Last Admin: 05/03/17 13:49 Dose: 1 reagan Budesonide (Pulmicort Respules) 0.5 mg IH [id number] JEANA PRN Reason: Protocol Last Admin: 05/04/17 07:22 Dose: Not Given Calcium Acetate (Phoslo) 667 mg PO DAILY JEANA PRN Reason: Protocol Last Admin: 05/04/17 10:51 Dose: 667 mg Cholecalciferol (Vitamin D) 1,000 iu PO DAILY JEANA PRN Reason: Protocol Last Admin: 05/04/17 10:52 Dose: 1,000 iu Digoxin (Lanoxin) 0.125 mg PO 1400 JEANA PRN Reason: Protocol Last Admin: 05/03/17 13:45 Dose: 0.125 mg Docusate Sodium (Colace) 100 mg PO TID JEANA PRN Reason: Protocol Last Admin: 05/04/17 10:48 Dose: 100 mg Furosemide (Lasix) 40 mg IVP DAILY JEANA PRN Reason: Protocol Last Admin: 05/04/17 10:52 Dose: 40 mg Guaifenesin (Mucinex La) 600 mg PO BID JEANA PRN Reason: Protocol Last Admin: 05/04/17 10:51 Dose: 600 mg Home Med (Home Med) 2 unit PO BID JEANA PRN Reason: Protocol Last Admin: 05/04/17 10:50 Dose: 2 unit Hydromorphone HCl (Dilaudid) 1.5 mg IVP Q4H PRN; Protocol PRN Reason: Pain, severe (8-10) Last Admin: 04/30/17 03:20 Dose: 1.5 mg Levothyroxine Sodium (Synthroid) 125 mcg PO 0600 [facility] PRN Reason: Protocol Last Admin: 05/04/17 05:51 Dose: 125 mcg Metoclopramide HCl (Reglan) 5 mg IVP Q8 PRN PRN Reason: Nausea/Vomiting Montelukast Sodium (Singulair) 10 mg PO DAILY [facility] PRN Reason: Protocol Last Admin: 05/04/17 10:52 Dose: 10 mg Nystatin (Nystatin Oral Susp) 5 ml PO QID [facility] PRN Reason: Protocol Last Admin: 05/04/17 10:51 Dose: 5 ml Ondansetron HCl (Zofran Inj) 4 mg IVP Q4H PRN; Protocol PRN Reason: Nausea/Vomiting Last Admin: 04/30/17 03:26 Dose: 4 mg Pantoprazole Sodium (Protonix Ec Tab) 40 mg PO 0600 [facility] PRN Reason: Protocol Last Admin: 05/04/17 05:51 Dose: 40 mg Polyethylene Glycol (Miralax) 17 gm PO BID [facility] PRN Reason: Protocol Last Admin: 05/04/17 10:50 Dose: 17 gm Prednisone (Prednisone Tab) 10 mg PO DAILY [facility] Last Admin: 05/04/17 10:51 Dose: 10 mg Physical Exam - Constitutional Appears: No Acute Distress - Head Exam Head Exam: NORMAL INSPECTION - Eye Exam Eye Exam: Normal appearance, PERRL - ENT Exam ENT Exam: Mucous Membranes Moist, Normal Oropharynx - Neck Exam Neck exam: Positive for: Normal Inspection - Respiratory Exam Respiratory Exam: Decreased Breath Sounds, NORMAL BREATHING PATTERN - Cardiovascular Exam Cardiovascular Exam: REGULAR RHYTHM, +S1, +S2 - GI/Abdominal Exam GI & Abdominal Exam: Normal Bowel Sounds, Soft - Exam Additional comments: chronic indwelling schroeder - Extremities Exam Extremities exam: Positive for: full ROM, pedal edema - Neurological Exam Neurological exam: Alert, Oriented x3 - Skin Skin Exam: Dry, Warm - Additional Findings Additional findings: Palliative performance scale rating 60 % Results - Vital Signs Recent Vital Signs: Last Vital Signs Temp 98.3 F 05/04/17 10:00 Pulse 71 05/04/17 10:49 Resp 20 05/04/17 10:00 BP 138/61 05/04/17 10:52 Pulse Ox 99 05/04/17 10:00 - Labs Result Diagrams: 05/04/17 06:25 05/04/17 06:25 Labs: Laboratory Results - last 24 hr 05/03/17 05/03/17 05/03/17 11:16 17:01 21:30 WBC RBC Hgb Hct MCV MCH MCHC RDW Plt Count MPV Gran % Lymph % (Auto) Hughes % (Auto) Eos % (Auto) Baso % (Auto) Gran # Lymph # Hughes # Eos # Baso # Sodium Potassium Chloride Carbon Dioxide Anion Gap BUN Creatinine Est GFR ( Amer) Est GFR (Non-Af Amer) POC Glucose (mg/dL) 205 H 74 93 Random Glucose Calcium Total Bilirubin AST ALT Alkaline Phosphatase Total Protein Albumin Globulin Albumin/Globulin Ratio 05/04/17 05/04/17 05/04/17 01:59 05:28 06:25 WBC 12.0 H RBC 3.67 Hgb 10.0 L Hct 32.3 L MCV 88.0 MCH 27.2 MCHC 31.0 RDW 14.9 H Plt Count 243 MPV 10.1 Gran % 73.4 H Lymph % (Auto) 15.3 L Hughes % (Auto) 9.7 H Eos % (Auto) 1.3 L Baso % (Auto) 0.3 Gran # 8.79 H Lymph # 1.8 Hughes # 1.2 H Eos # 0.2 Baso # 0.03 Sodium Potassium Chloride Carbon Dioxide Anion Gap BUN Creatinine Est GFR ( Amer) Est GFR (Non-Af Amer) POC Glucose (mg/dL) 206 H 133 H Random Glucose Calcium Total Bilirubin AST ALT Alkaline Phosphatase Total Protein Albumin Globulin Albumin/Globulin Ratio 05/04/17 06:25 WBC RBC Hgb Hct MCV MCH MCHC RDW Plt Count MPV Gran % Lymph % (Auto) Hughes % (Auto) Eos % (Auto) Baso % (Auto) Gran # Lymph # Hughes # Eos # Baso # Sodium 136 Potassium 4.4 Chloride 96 Carbon Dioxide 31 Anion Gap 13 BUN 29 H Creatinine 1.1 Est GFR ( Amer) > 60 Est GFR (Non-Af Amer) > 60 POC Glucose (mg/dL) Random Glucose 90 Calcium 8.6 Total Bilirubin 0.3 AST 80 H ALT 159 H Alkaline Phosphatase 101 Total Protein 6.1 Albumin 3.4 Globulin 2.6 Albumin/Globulin Ratio 1.3 Assessment & Plan - Assessment and Plan (Free Text) Assessment: 87 year old male with metastatic prostate cancer,urinary retention, COPD, CAD, UTI, deconditioning seen in TCU. The patient is alert an oriented. He is participating with physical therapy. He is pending discharge home this weekend. The patient and I reviewed the terms of his Advance Directive. He affirms that he does not want CPR/intubation. Purpose of [facility] Life Sustaining Order ( POLST) explained in detail.Questions answered. Patient will consider initiating POLST. Will reconvene tomorrow to continue advance care planning conversation. Time spent in advance care planning discussion, 20 minutes Plan: Advance care planning
--- NOTE | 2017-05-04 15:04 | PN ---
DATE: 05/04/2017 SUBJECTIVE: The patient is sitting in bed. He is awake, he is alert, is comfortable. He reports less cough today. He denies any hematuria. PHYSICAL EXAMINATION GENERAL: Elderly male sitting in bed. VITAL SIGNS: Blood pressure 138/61, heart rate 65, respiratory rate 20, temperature 98.3. HEENT: Normocephalic, atraumatic. NECK: Supple. No JVD. LUNGS: Bilateral equal air entry, no rales. CARDIAC: S1 and S2. Regular rate and rhythm. No murmur. No rubs. ABDOMEN: Obese, soft, nontender, bowel sounds present. EXTREMITIES: No lower extremity edema. INTAKE AND OUTPUT: Not charted/2200. LABORATORY DATA: WBC 12, hemoglobin 10, hematocrit 32, platelet 243. Sodium 136, potassium 4.4, chloride 96, CO2 31, BUN 29, creatinine 1.1, glucose 90, calcium 8.6, AST 80, ALT 159. CURRENT MEDICATIONS: List reviewed. ASSESSMENT: 1: Stable chronic renal stage IV, resolved acute kidney injury. 2. Resolved hyponatremia. 3. Bladder cancer, hematuria. 4. Elevated LFTs. 5. Anemia. PLAN: 1. Monitor LFTs closely. 2. Continue current anti-hypertensive. 3. Physical therapy. Marianne Lozano MD
[2017-05-04] MEDS: Digoxin 125 mcg (0.125 mg) Tab PO SCH (15:25)
--- NOTE | 2017-05-04 15:49 | PN ---
DATE: 05/04/2017 SUBJECTIVE: The patient is in bed, in no acute distress. Nontoxic. No fevers and chills. PHYSICAL EXAMINATION VITAL SIGNS: Temperature is 98, blood pressure is 138/60, respiratory rate of 16. HEENT: Unremarkable. NECK: Supple. LUNGS: Decreased breath sounds. HEART: Normal S1 and S2. ABDOMEN: Soft. LABORATORY DATA: Reveals a white count of 12,000, hemoglobin of 10, platelets of 243. BUN of 29, creatinine of 1.1, AST is 80, ALT of 159. Review of orders reveals the patient to be off of antibiotics. ASSESSMENT AND PLAN: This is an 87-year-old male, seen earlier this morning in room 302, doing well who had carbapenem-resistant Klebsiella urinary tract infections, completed therapy, currently off of antibiotics, afebrile. He is at risk for developing nosocomial infections. Elliot Hernandez MD
--- NOTE | 2017-05-04 21:24 | PN ---
DATE: 05/04/2017 REASON FOR CONSULTATION: Followup coronary artery disease, cardiomyopathy, ICD, PAF, CABG, PTCA in the past. SUBJECTIVE: The patient denies any chest pain, shortness of breath, or any palpitation. Feels better. PHYSICAL EXAMINATION: As follows: VITAL SIGNS: Temperature afebrile, heart rate 71, and blood pressure 130/61. HEENT: PERRLA. Extraocular muscles are intact. NECK: Supple. No carotid bruits. No thyromegaly. CARDIOPULMONARY: S1 and S2, regular. LUNGS: Clear to auscultation. ABDOMEN: Soft. EXTREMITIES: Clubbing and cyanosis, negative. LABORATORY DATA: Blood workup as follows; WBC 12, hemoglobin 10, hematocrit 32.3, and platelet count 243. Chemistry show sodium 132, potassium 4.4, chloride 196, carbon dioxide 31, anion gap of 13, BUN 29, and creatinine 1.1. IMPRESSION: An 87-year-old male with past medical history significant for coronary artery disease, pre-coronary artery bypass graft percutaneous transluminal coronary angioplasty, post-coronary artery bypass graft percutaneous transluminal coronary angioplasty, status post coronary artery bypass graft, mitral valve repair, history of paroxysmal atrial fibrillation, cardiomyopathy, status post automatic implantable cardioverter-defibrillator, elevated liver transaminases, hematuria, prostate cancer, indwelling Avendano catheter, urosepsis, history of deep vein thrombosis, *------* patient was on Pradaxa. The Pradaxa is stopped because of hematuria; hematuria at this time has improved. Hypothyroidism. RECOMMENDATIONS: Continue antibiotics. Continue gentle diuretic p.r.n., now the patient cutdown to once a day, 40 of Lasix everyday, continue amiodarone for paroxysmal atrial fibrillation, continue dual nebulizer treatment, continue digoxin. CVS status is stable. Liver transaminases has significantly improved from the peak 246 AST, ALT 243 peak; now it is 80 and 159. Followup closely, possibly secondary to sepsis as well as congestion of the liver. We will follow with you. Thank you Dr. Polk for the opportunity in taking care of Ziggy Amador. Mely Chavarria MD [facility] # [id number]
[2017-05-05] MEDS: Albuterol-Ipratrop 3 mg / 0.5 (3 ml) UD IH SCH ×4 (01:28→20:04)
[2017-05-05] MEDS: Nystatin 100,000 Units/ml Oral Susp 5 ml UD PO SCH ×4 (02:31→21:59)
[2017-05-05] MEDS: Levothyroxine 125 MCG TAB PO SCH (05:36)
[2017-05-05] MEDS: Pantoprazole 40 mg EC Tab PO SCH (05:36)
[2017-05-05] MEDS: Insulin Human NPH/Reg 70/30 Vial(3 ml) SC SCH ×4 (06:51→22:02)
[2017-05-05 07:25] LABS: BASO # 0.02 K/mm3 (0.0-2.0); BASO % 0.2 % (0.0-3.0); EOS # 0.2 (0.0-0.7); EOS % 1.9 % (1.5-5.0); GRAN # 7.32 (1.4-6.5); GRAN % 72.6 % (50.0-68.0); HEMOGLOBIN 9.6 gm/dL (14.0-18.0); LYMPH # 1.6 (1.2-3.4); LYMPH % 15.8 % (22.0-35.0); MEAN CELL VOLUME 86.1 fL (80.0-105.0); MEAN CORPUSCULAR HEMOGLOBIN 26.7 pg (25.0-35.0); MEAN CORPUSCULAR HGB CONC 31.1 g/dl (31.0-37.0); MEAN PLATELET VOLUME 9.8 fl (7.0-11.0); MONO % 9.5 % (1.0-6.0); PLATELET COUNT 224 10^3/uL (120.0-450.0); RBC 3.59 10^6/uL (3.5-6.1); RED CELL DISTRIBUTION WIDTH 14.6 % (11.5-14.5); WHITE BLOOD COUNT 10.1 10^3/ul (4.5-11.0)
[2017-05-05 07:42] LABS: ALB/GLOB RATIO 1.2 (1.1-1.8); ALBUMIN 3.2 g/dL (3.0-4.8); ALT/SGPT 139 U/L (7-56); AST/SGOT 80 U/L (15-59); BLOOD UREA NITROGEN 31 mg/dL (7-21); CALCIUM 8.6 mg/dL (8.4-10.5); GFR AFRICAN-AMERICAN > 60; GFR NON-AFRICAN AMERICAN 57
[2017-05-05] MEDS: Budesonide 0.5 mg/2 ml Inhal Susp UD IH SCH ×2 (07:45→20:04)
--- NOTE | 2017-05-05 08:16 | CP.PCM.PN ---
Subjective - Date & Time of Evaluation Date of Evaluation: 05/05/17 Time of Evaluation: 07:45 - Subjective Subjective: Patient is seen this morning. He is feeling better. Objective - Vital Signs/Intake and Output Vital Signs (last 24 hours): Temp Pulse Resp BP Pulse Ox 97.7 F 20 L 68 H 138/78 98 05/04/17 16:00 05/04/17 16:00 05/04/17 16:00 05/04/17 16:00 05/04/17 16:00 - Medications Medications: Current Medications Acetaminophen (Tylenol 325mg Tab) 650 mg PO Q4H PRN; Protocol PRN Reason: Pain, Mild (1-3) Albuterol/Ipratropium (Duoneb 3 Mg/0.5 Mg (3 Ml) Ud) 3 ml IH [id number] JEANA PRN Reason: Protocol Last Admin: 05/05/17 07:45 Dose: 3 ml Amiodarone HCl (Cordarone) 200 mg PO DAILY JEANA PRN Reason: Protocol Last Admin: 05/04/17 10:49 Dose: 200 mg Atorvastatin Calcium (Lipitor) 10 mg PO DIN JEANA PRN Reason: Protocol Last Admin: 05/04/17 17:15 Dose: 10 mg Benzocaine/Menthol (Cepacol Sore Throat) 1 reagan MT Q4H PRN; Protocol PRN Reason: Sore Throat Last Admin: 05/03/17 13:49 Dose: 1 reagan Budesonide (Pulmicort Respules) 0.5 mg IH [id number] JEANA PRN Reason: Protocol Last Admin: 05/05/17 07:45 Dose: 0.5 mg Calcium Acetate (Phoslo) 667 mg PO DAILY JEANA PRN Reason: Protocol Last Admin: 05/04/17 10:51 Dose: 667 mg Cholecalciferol (Vitamin D) 1,000 iu PO DAILY JEANA PRN Reason: Protocol Last Admin: 05/04/17 10:52 Dose: 1,000 iu Digoxin (Lanoxin) 0.125 mg PO 1400 JEANA PRN Reason: Protocol Last Admin: 05/04/17 15:25 Dose: 0.125 mg Docusate Sodium (Colace) 100 mg PO TID JEANA PRN Reason: Protocol Last Admin: 05/04/17 17:14 Dose: 100 mg Furosemide (Lasix) 40 mg IVP DAILY JEANA PRN Reason: Protocol Last Admin: 05/04/17 10:52 Dose: 40 mg Guaifenesin (Mucinex La) 600 mg PO BID JEANA PRN Reason: Protocol Last Admin: 05/04/17 17:16 Dose: 600 mg Home Med (Home Med) 2 unit PO BID JEANA PRN Reason: Protocol Last Admin: 05/04/17 17:16 Dose: Not Given Levothyroxine Sodium (Synthroid) 125 mcg PO 0600 JEANA PRN Reason: Protocol Last Admin: 05/05/17 05:36 Dose: 125 mcg Metoclopramide HCl (Reglan) 5 mg IVP Q8 PRN PRN Reason: Nausea/Vomiting Montelukast Sodium (Singulair) 10 mg PO DAILY JEANA PRN Reason: Protocol Last Admin: 05/04/17 10:52 Dose: 10 mg Nystatin (Nystatin Oral Susp) 5 ml PO QID JEANA PRN Reason: Protocol Last Admin: 05/04/17 21:14 Dose: 5 ml Ondansetron HCl (Zofran Inj) 4 mg IVP Q4H PRN; Protocol PRN Reason: Nausea/Vomiting Last Admin: 04/30/17 03:26 Dose: 4 mg Pantoprazole Sodium (Protonix Ec Tab) 40 mg PO 0600 [facility] PRN Reason: Protocol Last Admin: 05/05/17 05:36 Dose: 40 mg Polyethylene Glycol (Miralax) 17 gm PO BID [facility] PRN Reason: Protocol Last Admin: 05/04/17 17:16 Dose: 17 gm Prednisone (Prednisone Tab) 10 mg PO DAILY [facility] Last Admin: 05/04/17 10:51 Dose: 10 mg - Labs Labs: 05/05/17 06:15 05/05/17 06:35 - Constitutional Appears: No Acute Distress - Head Exam Head Exam: ATRAUMATIC, NORMOCEPHALIC - Respiratory Exam Respiratory Exam: Clear to Ausculation Bilateral, NORMAL BREATHING PATTERN - Cardiovascular Exam Cardiovascular Exam: +S1, +S2 - GI/Abdominal Exam GI & Abdominal Exam: Soft, Normal Bowel Sounds. absent: Tenderness - Neurological Exam Neurological Exam: Alert, Awake, Oriented x3 Assessment and Plan - Assessment and Plan (Free Text) Assessment: Metastatic prostate cancer COPD Klebsiella UTI Chronic systolic and diastolic heart failure chronic indwelling schroeder catheter CAD Hypothyroidism CKD Plan: Patient is doing better. He finished course of IV antibiotics for klebsiella urinary tract infection. Repeat urine culture negative. Urine is clear this morning. He will continue physical therapy. For discharge home tomorrow.
[2017-05-05] MEDS: POLYETHYLENE GLYCOL 3350 17 GM/Dose PACKET PO SCH ×2 (09:53→17:30)
[2017-05-05] MEDS: guaiFENesin 600 mg ER Tab PO SCH ×2 (09:53→17:30)
[2017-05-05] MEDS: TRANEXAMIC ACID 650 MG PO SCH (11:38)
--- NOTE | 2017-05-05 14:04 | CP.PCM.PN ---
Subjective - Date & Time of Evaluation Date of Evaluation: 05/05/17 Time of Evaluation: 13:00 - Subjective Subjective: Alert,ambulating independently. Offers no complaints. Objective - Vital Signs/Intake and Output Vital Signs (last 24 hours): Temp Pulse Resp BP Pulse Ox 97.7 F 20 L 68 H 128/65 98 05/04/17 16:00 05/04/17 16:00 05/04/17 16:00 05/05/17 11:42 05/04/17 16:00 - Medications Medications: Current Medications Acetaminophen (Tylenol 325mg Tab) 650 mg PO Q4H PRN; Protocol PRN Reason: Pain, Mild (1-3) Albuterol/Ipratropium (Duoneb 3 Mg/0.5 Mg (3 Ml) Ud) 3 ml IH [id number] JEANA PRN Reason: Protocol Last Admin: 05/05/17 13:39 Dose: 3 ml Amiodarone HCl (Cordarone) 200 mg PO DAILY [facility] PRN Reason: Protocol Last Admin: 05/05/17 09:52 Dose: 200 mg Atorvastatin Calcium (Lipitor) 10 mg PO DIN JEANA PRN Reason: Protocol Last Admin: 05/04/17 17:15 Dose: 10 mg Benzocaine/Menthol (Cepacol Sore Throat) 1 reagan MT Q4H PRN; Protocol PRN Reason: Sore Throat Last Admin: 05/03/17 13:49 Dose: 1 reagan Budesonide (Pulmicort Respules) 0.5 mg IH [id number] JEANA PRN Reason: Protocol Last Admin: 05/05/17 07:45 Dose: 0.5 mg Calcium Acetate (Phoslo) 667 mg PO DAILY [facility] PRN Reason: Protocol Last Admin: 05/05/17 09:54 Dose: 667 mg Cholecalciferol (Vitamin D) 1,000 iu PO DAILY [facility]NA PRN Reason: Protocol Last Admin: 05/05/17 09:54 Dose: 1,000 iu Digoxin (Lanoxin) 0.125 mg PO 1400 JEANA PRN Reason: Protocol Last Admin: 05/04/17 15:25 Dose: 0.125 mg Docusate Sodium (Colace) 100 mg PO TID JEANA PRN Reason: Protocol Last Admin: 05/05/17 09:52 Dose: 100 mg Furosemide (Lasix) 40 mg IVP DAILY J[facility]NA PRN Reason: Protocol Last Admin: 05/05/17 11:42 Dose: 40 mg Guaifenesin (Mucinex La) 600 mg PO BID JEANA PRN Reason: Protocol Last Admin: 05/05/17 09:53 Dose: 600 mg Home Med (Home Med) 2 unit PO BID JEANA PRN Reason: Protocol Last Admin: 05/05/17 11:38 Dose: 2 unit Levothyroxine Sodium (Synthroid) 125 mcg PO 0600 [facility] PRN Reason: Protocol Last Admin: 05/05/17 05:36 Dose: 125 mcg Metoclopramide HCl (Reglan) 5 mg IVP Q8 PRN PRN Reason: Nausea/Vomiting Montelukast Sodium (Singulair) 10 mg PO DAILY J[facility]NA PRN Reason: Protocol Last Admin: 05/05/17 09:54 Dose: 10 mg Nystatin (Nystatin Oral Susp) 5 ml PO QID JEANA PRN Reason: Protocol Last Admin: 05/05/17 09:54 Dose: 5 ml Ondansetron HCl (Zofran Inj) 4 mg IVP Q4H PRN; Protocol PRN Reason: Nausea/Vomiting Last Admin: 04/30/17 03:26 Dose: 4 mg Pantoprazole Sodium (Protonix Ec Tab) 40 mg PO 0600 [facility] PRN Reason: Protocol Last Admin: 05/05/17 05:36 Dose: 40 mg Polyethylene Glycol (Miralax) 17 gm PO BID JEANA PRN Reason: Protocol Last Admin: 05/05/17 09:53 Dose: 17 gm Prednisone (Prednisone Tab) 10 mg PO DAILY [facility] Last Admin: 05/05/17 09:54 Dose: 10 mg - Labs Labs: 05/05/17 06:15 05/05/17 06:35 - Constitutional Appears: No Acute Distress - Eye Exam Eye Exam: Normal appearance, PERRL - ENT Exam ENT Exam: Mucous Membranes Moist - Respiratory Exam Respiratory Exam: Decreased Breath Sounds, NORMAL BREATHING PATTERN - Cardiovascular Exam Cardiovascular Exam: REGULAR RHYTHM, +S1, +S2 - GI/Abdominal Exam GI & Abdominal Exam: Soft, Normal Bowel Sounds - Extremities Exam Extremities Exam: Normal Capillary Refill, Normal Inspection - Neurological Exam Neurological Exam: Alert, Oriented x3 - Skin Skin Exam: Dry, Warm Assessment and Plan - Assessment and Plan (Free Text) Assessment: 87 year old male with history of admitted to [facility] for deconditioing and completion of antibiotic therapy The patient has a Living Will. He and I discussed initiating a POLST when we met yesterday. I returned today to follow up on our advance care planning discussion. Mr Amador has a copy of the POLST, but doesn't want to complete today. Plan: Advance care planning
--- NOTE | 2017-05-05 14:09 | CP.PCM.PN ---
Subjective - Date & Time of Evaluation Date of Evaluation: 05/05/17 Time of Evaluation: 13:59 - Subjective Subjective: PGY-[address] Carballo Pt has 5/10 pain around T11-T12, does not radiate to legs. or thighs Tolerate pt well Objective - Vital Signs/Intake and Output Vital Signs (last 24 hours): Temp Pulse Resp BP Pulse Ox 97.7 F 20 L 68 H 128/65 98 05/04/17 16:00 05/04/17 16:00 05/04/17 16:00 05/05/17 11:42 05/04/17 16:00 - Medications Medications: Current Medications Acetaminophen (Tylenol 325mg Tab) 650 mg PO Q4H PRN; Protocol PRN Reason: Pain, Mild (1-3) Albuterol/Ipratropium (Duoneb 3 Mg/0.5 Mg (3 Ml) Ud) 3 ml IH [id number] JEANA PRN Reason: Protocol Last Admin: 05/05/17 13:39 Dose: 3 ml Amiodarone HCl (Cordarone) 200 mg PO DAILY [facility] PRN Reason: Protocol Last Admin: 05/05/17 09:52 Dose: 200 mg Atorvastatin Calcium (Lipitor) 10 mg PO DIN JEANA PRN Reason: Protocol Last Admin: 05/04/17 17:15 Dose: 10 mg Benzocaine/Menthol (Cepacol Sore Throat) 1 reagan MT Q4H PRN; Protocol PRN Reason: Sore Throat Last Admin: 05/03/17 13:49 Dose: 1 reaagn Budesonide (Pulmicort Respules) 0.5 mg IH [id number] JEANA PRN Reason: Protocol Last Admin: 05/05/17 07:45 Dose: 0.5 mg Calcium Acetate (Phoslo) 667 mg PO DAILY [facility] PRN Reason: Protocol Last Admin: 05/05/17 09:54 Dose: 667 mg Cholecalciferol (Vitamin D) 1,000 iu PO DAILY [facility] PRN Reason: Protocol Last Admin: 05/05/17 09:54 Dose: 1,000 iu Digoxin (Lanoxin) 0.125 mg PO 1400 [facility] PRN Reason: Protocol Last Admin: 05/04/17 15:25 Dose: 0.125 mg Docusate Sodium (Colace) 100 mg PO TID [facility]NA PRN Reason: Protocol Last Admin: 05/05/17 09:52 Dose: 100 mg Furosemide (Lasix) 40 mg IVP DAILY [facility] PRN Reason: Protocol Last Admin: 05/05/17 11:42 Dose: 40 mg Guaifenesin (Mucinex La) 600 mg PO BID [facility] PRN Reason: Protocol Last Admin: 05/05/17 09:53 Dose: 600 mg Home Med (Home Med) 2 unit PO BID [facility] PRN Reason: Protocol Last Admin: 05/05/17 11:38 Dose: 2 unit Levothyroxine Sodium (Synthroid) 125 mcg PO 0600 [facility] PRN Reason: Protocol Last Admin: 05/05/17 05:36 Dose: 125 mcg Metoclopramide HCl (Reglan) 5 mg IVP Q8 PRN PRN Reason: Nausea/Vomiting Montelukast Sodium (Singulair) 10 mg PO DAILY [facility] PRN Reason: Protocol Last Admin: 05/05/17 09:54 Dose: 10 mg Nystatin (Nystatin Oral Susp) 5 ml PO QID JEANA PRN Reason: Protocol Last Admin: 05/05/17 09:54 Dose: 5 ml Ondansetron HCl (Zofran Inj) 4 mg IVP Q4H PRN; Protocol PRN Reason: Nausea/Vomiting Last Admin: 04/30/17 03:26 Dose: 4 mg Pantoprazole Sodium (Protonix Ec Tab) 40 mg PO 0600 [facility] PRN Reason: Protocol Last Admin: 05/05/17 05:36 Dose: 40 mg Polyethylene Glycol (Miralax) 17 gm PO BID [facility] PRN Reason: Protocol Last Admin: 05/05/17 09:53 Dose: 17 gm Prednisone (Prednisone Tab) 10 mg PO DAILY [facility] Last Admin: 05/05/17 09:54 Dose: 10 mg - Labs Labs: 05/05/17 06:15 05/05/17 06:35 - Constitutional Appears: No Acute Distress, Chronically Ill - Head Exam Head Exam: ATRAUMATIC, NORMAL INSPECTION, NORMOCEPHALIC - Eye Exam Eye Exam: EOMI, Normal appearance, PERRL. absent: Scleral icterus Pupil Exam: NORMAL ACCOMODATION - ENT Exam ENT Exam: Mucous Membranes Moist - Respiratory Exam Respiratory Exam: Clear to Ausculation Bilateral. absent: Rales, Rhonchi, Wheezes - Cardiovascular Exam Cardiovascular Exam: REGULAR RHYTHM, +S1, +S2 - GI/Abdominal Exam GI & Abdominal Exam: Soft, Tenderness (bl ), Normal Bowel Sounds - Extremities Exam Extremities Exam: Normal Capillary Refill, Pedal Edema (slight). absent: Calf Tenderness Additional comments: 3-way schroeder intact. urine light yellow. 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 Pt had hemauturia s/p cystoscopy (05/01/17). He is in contact isolation for ESBL, Carbapenem-resistant Klebsiella UTI, complicated. Pt finished Avycaz, curently observe off abx. Clots likely from microscopic hematuria were found in schroeder so started continuous bladder irrigation, and abdominal pain improved. Pt hematuria resolved, now on tapering dose of transexamic acid. Abdominal pain - improves Hematuria with Clots in urine - resolved, stopped CBI x 2 days Gross Hemautria - resolved Due to prostate ca - likely referred pain from origin - hold ASA and Plavix. on home tranexamc acid 650 mg tapering to 1 tablet daily - 3-way schroeder management per urology and primary team UTI, complicated, indwelling Schroeder catheter growing Carbapenem-resistant Klebsiella history of right foot necrotic ulcer with surrounding cellulitis - switch Merrem to Avycaz and pending repeat urine cx (avoid Amikacin), finished 1-week course of antibiotics - CT scan of the abdomen and pelvis which showed mural thickening of the urinary bladder - Pending repeat urine culture - Observe off antibiotics Transaminitis - possible amiodarone vs lipitor Constipation - resolved - s/p lactulose. - CT negative of acute GI event. (+) GB sludge, (+) lymphadenopathy as before - continue Colace, increase Miralax to BID, hold for stool>2/day Stage 4 prostate CA, castrate resistant, with bone mets Hx DVT not on anticoagulant for hematuria - LDH 769 - PSA 33 (03/2017) - Bone Scan (04/27/17) - New osseous metastatic disease affecting axial skeleton at thoracolumbar spine, pelvis, and proximal femurs. - CT scan (03/18/17): stable retrocrural and retroperitoneal lymphadenopahty - dilaudid prn for pain control - Due to age and comorbidities, pt is not a candidate for chemotherapy - For his prostate cancer, pt was initially on Casodex (could not tolerate xtandi), currently on Zytiga once daily and prednisone. - Dr. Carballo met with family and pt. Agreed supportive therapy. 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 Carballo
--- NOTE | 2017-05-05 15:00 | PN ---
DATE: 05/05/2017 SUBJECTIVE: The patient is sitting in chair. He is awake, he is alert, he is comfortable. He denies any shortness of breath. He denies any cough. He complains of little of lower abdominal pain. PHYSICAL EXAMINATION GENERAL: Elderly male sitting in chair. VITAL SIGNS: Blood pressure 128/65, heart rate 70, respiratory rate 18, temperature 97.7. HEENT: Normocephalic, atraumatic. NECK: Supple. No JVD. LUNGS: Bilateral equal air entry, no rales. EXTREMITIES: No lower extremity edema. LABORATORY DATA: WBC 10, hemoglobin 9.6, hematocrit 30.9, platelet 224. Sodium 136, potassium 4.6, chloride 97, CO2 of 22, BUN 31, creatinine 1.2, glucose 152, calcium 8.6, AST 80, ALT 139. MEDICATIONS: List reviewed. ASSESSMENT: 1. Resolved acute kidney injury. 2. Stable chronic kidney disease stage IV. 3. Resolved hematuria. 4. Bladder cancer. 5. Coronary artery disease. 6. Qqr-[id number]-wyybrqvst diabetes mellitus. PLAN: 1. Stable at this time from the renal standpoint. 2. No objection to discharge tomorrow. 3. We will discontinue followup in the hospital. Marianne Lozano MD
[2017-05-05] MEDS: Digoxin 125 mcg (0.125 mg) Tab PO SCH (17:29)
[2017-05-05 17:36] VITALS: PULSE 68
--- NOTE | 2017-05-05 17:38 | CP.PCM.PN ---
Subjective - Date & Time of Evaluation Date of Evaluation: 05/05/17 Time of Evaluation: 12:15 - Subjective Subjective: Comfortable in bed, no fevers, better abdominal pain. Objective - Vital Signs/Intake and Output Vital Signs (last 24 hours): Temp Pulse Resp BP Pulse Ox 97.7 F 20 L 68 H 138/78 98 05/04/17 16:00 05/04/17 16:00 05/04/17 16:00 05/04/17 16:00 05/04/17 16:00 - Medications Medications: Current Medications Acetaminophen (Tylenol 325mg Tab) 650 mg PO Q4H PRN; Protocol PRN Reason: Pain, Mild (1-3) Albuterol/Ipratropium (Duoneb 3 Mg/0.5 Mg (3 Ml) Ud) 3 ml IH [id number] JEANA PRN Reason: Protocol Last Admin: 05/05/17 07:45 Dose: 3 ml Amiodarone HCl (Cordarone) 200 mg PO DAILY [facility] PRN Reason: Protocol Last Admin: 05/04/17 10:49 Dose: 200 mg Atorvastatin Calcium (Lipitor) 10 mg PO DIN [facility]EANA PRN Reason: Protocol Last Admin: 05/04/17 17:15 Dose: 10 mg Benzocaine/Menthol (Cepacol Sore Throat) 1 reagan MT Q4H PRN; Protocol PRN Reason: Sore Throat Last Admin: 05/03/17 13:49 Dose: 1 reagan Budesonide (Pulmicort Respules) 0.5 mg IH [id number] JEANA PRN Reason: Protocol Last Admin: 05/05/17 07:45 Dose: 0.5 mg Calcium Acetate (Phoslo) 667 mg PO DAILY [facility] PRN Reason: Protocol Last Admin: 05/04/17 10:51 Dose: 667 mg Cholecalciferol (Vitamin D) 1,000 iu PO DAILY [facility] PRN Reason: Protocol Last Admin: 05/04/17 10:52 Dose: 1,000 iu Digoxin (Lanoxin) 0.125 mg PO 1400 [facility] PRN Reason: Protocol Last Admin: 05/04/17 15:25 Dose: 0.125 mg Docusate Sodium (Colace) 100 mg PO TID [facility]EANA PRN Reason: Protocol Last Admin: 05/04/17 17:14 Dose: 100 mg Furosemide (Lasix) 40 mg IVP DAILY [facility] PRN Reason: Protocol Last Admin: 05/04/17 10:52 Dose: 40 mg Guaifenesin (Mucinex La) 600 mg PO BID [facility] PRN Reason: Protocol Last Admin: 05/04/17 17:16 Dose: 600 mg Home Med (Home Med) 2 unit PO BID [facility] PRN Reason: Protocol Last Admin: 05/04/17 17:16 Dose: Not Given Levothyroxine Sodium (Synthroid) 125 mcg PO 0600 [facility] PRN Reason: Protocol Last Admin: 05/05/17 05:36 Dose: 125 mcg Metoclopramide HCl (Reglan) 5 mg IVP Q8 PRN PRN Reason: Nausea/Vomiting Montelukast Sodium (Singulair) 10 mg PO DAILY [facility] PRN Reason: Protocol Last Admin: 05/04/17 10:52 Dose: 10 mg Nystatin (Nystatin Oral Susp) 5 ml PO QID [facility] PRN Reason: Protocol Last Admin: 05/04/17 21:14 Dose: 5 ml Ondansetron HCl (Zofran Inj) 4 mg IVP Q4H PRN; Protocol PRN Reason: Nausea/Vomiting Last Admin: 04/30/17 03:26 Dose: 4 mg Pantoprazole Sodium (Protonix Ec Tab) 40 mg PO 0600 [facility] PRN Reason: Protocol Last Admin: 05/05/17 05:36 Dose: 40 mg Polyethylene Glycol (Miralax) 17 gm PO BID [facility] PRN Reason: Protocol Last Admin: 05/04/17 17:16 Dose: 17 gm Prednisone (Prednisone Tab) 10 mg PO DAILY [facility] Last Admin: 05/04/17 10:51 Dose: 10 mg - Labs Labs: 05/05/17 06:15 05/05/17 06:35 - Constitutional Appears: Non-toxic, No Acute Distress - Head Exam Head Exam: NORMAL INSPECTION - Neck Exam Neck Exam: absent: Meningismus - Respiratory Exam Respiratory Exam: Decreased Breath Sounds - Cardiovascular Exam Cardiovascular Exam: +S1, +S2 - GI/Abdominal Exam GI & Abdominal Exam: Soft. absent: Tenderness Assessment and Plan - Assessment and Plan (Free Text) Plan: Assessment S/P lower urinary tract infection in a patient with indwelling Avendano catheter growing Carbapenem-resistant Klebsiella history of right foot necrotic ulcer with surrounding cellulitis UTI with Enterococcus and Klebsiella chronic renal failure history of DVT DM Prostate CA history of Enterococcus UTI atrial fibrillation S/P pacemaker and ICD placement Plan S/P Avycaz and will monitor off antibiotics since he is at risk for infections
--- NOTE | 2017-05-06 00:09 | PN ---
DATE: 05/05/2017 REASON FOR CONSULTATION: Followup of coronary artery disease, cardiomyopathy, status post AICD, status post CABG, status post PTCA, PAF. SUBJECTIVE: The patient denies any chest pain, shortness of breath, or any palpitation. Feels better. PHYSICAL EXAMINATION VITAL SIGNS: Afebrile. Heart rate 71. Blood pressure 132/78. HEENT: PERRLA. Extraocular muscles are intact.. NECK: Supple. No carotid bruits. No thyromegaly CHEST: Clear to auscultation. HEART: S1, S2, regular. ABDOMEN: Soft. EXTREMITIES: Clubbing, cyanosis negative. LABORATORY DATA: Blood workup as follows, WBC 10.8, hemoglobin 9.7, hematocrit 30.9, platelet count 224. Chemistry showed sodium 132, potassium 4.7, chloride 97, carbon dioxide 32, anion gap of 12, BUN 31, creatinine 1.2. IMPRESSION: An 87-year-old male with past medical history significant for coronary artery disease, ischemic cardiomyopathy, mitral regurgitation status post coronary artery bypass grafting, he is status post PTCA pre and post coronary artery bypass grafting, history of automated implantable cardioverter defibrillator *------* changed six weeks ago, history of paroxysmal atrial fibrillation, chronic renal insufficiency, *------* indwelling Avendano catheter, multiple events of urinary tract infection, hematuria. At one point, patient was on Pradaxa for DVT but off because of hematuria. Now, patient was in continuous bladder irrigation which cleared. RECOMMENDATION: Continue gentle diuretics. Continue amiodarone for possible atrial fibrillation. Continue dig, continue Lasix, we will change to p.o. from tomorrow. Continue atorvastatin. We will follow. Overall, patient's condition is fairly stable. Possible discharge in a day or two. Thank you Dr. Polk for the opportunity of taking care of the patient, Ziggy Amador. Mely Chavarria MD
[2017-05-06] MEDS: Albuterol-Ipratrop 3 mg / 0.5 (3 ml) UD IH SCH ×2 (01:33→07:10)
[2017-05-06] MEDS: Pantoprazole 40 mg EC Tab PO SCH (05:33)
[2017-05-06] MEDS: Levothyroxine 125 MCG TAB PO SCH (05:33)
[2017-05-06] MEDS: Budesonide 0.5 mg/2 ml Inhal Susp UD IH SCH (07:10)
[2017-05-06 07:24] LABS: BASO # 0.04 K/mm3 (0.0-2.0); BASO % 0.4 % (0.0-3.0); EOS # 0.2 (0.0-0.7); EOS % 2.1 % (1.5-5.0); GRAN # 7.96 (1.4-6.5); GRAN % 73.7 % (50.0-68.0); HEMOGLOBIN 9.6 gm/dL (14.0-18.0); LYMPH # 1.7 (1.2-3.4); LYMPH % 15.6 % (22.0-35.0); MEAN CORPUSCULAR HEMOGLOBIN 26.4 pg (25.0-35.0); MEAN CORPUSCULAR HGB CONC 30.8 g/dl (31.0-37.0); MEAN PLATELET VOLUME 9.4 fl (7.0-11.0); MONO # 0.9 (0.1-0.6); MONO % 8.2 % (1.0-6.0); PLATELET COUNT 233 10^3/uL (120.0-450.0); RBC 3.63 10^6/uL (3.5-6.1); RED CELL DISTRIBUTION WIDTH 14.6 % (11.5-14.5); WHITE BLOOD COUNT 10.8 10^3/ul (4.5-11.0)
[2017-05-06 07:50] LABS: ALB/GLOB RATIO 1.3 (1.1-1.8); ALBUMIN 3.3 g/dL (3.0-4.8); ALT/SGPT 134 U/L (7-56); AST/SGOT 80 U/L (15-59); BLOOD UREA NITROGEN 29 mg/dL (7-21); CALCIUM 8.8 mg/dL (8.4-10.5); GFR AFRICAN-AMERICAN > 60; GFR NON-AFRICAN AMERICAN > 60
--- NOTE | 2017-05-06 08:00 | CP.PCM.PN ---
Subjective - Date & Time of Evaluation Date of Evaluation: 05/06/17 Time of Evaluation: 07:40 - Subjective Subjective: Patient is seen this morning. He has no complaints. He is feeling better. He will be discharged today. Objective - Vital Signs/Intake and Output Vital Signs (last 24 hours): Temp Pulse Resp BP Pulse Ox 96.4 F L 64 20 137/56 L 100 05/06/17 06:00 05/06/17 06:00 05/06/17 06:00 05/06/17 06:00 05/06/17 06:00 - Medications Medications: Current Medications Acetaminophen (Tylenol 325mg Tab) 650 mg PO Q4H PRN; Protocol PRN Reason: Pain, Mild (1-3) Albuterol/Ipratropium (Duoneb 3 Mg/0.5 Mg (3 Ml) Ud) 3 ml IH [id number] JEANA PRN Reason: Protocol Last Admin: 05/06/17 07:10 Dose: 3 ml Amiodarone HCl (Cordarone) 200 mg PO DAILY [facility] PRN Reason: Protocol Last Admin: 05/05/17 09:52 Dose: 200 mg Atorvastatin Calcium (Lipitor) 10 mg PO DIN [facility] PRN Reason: Protocol Last Admin: 05/05/17 17:30 Dose: 10 mg Benzocaine/Menthol (Cepacol Sore Throat) 1 reagan MT Q4H PRN; Protocol PRN Reason: Sore Throat Last Admin: 05/03/17 13:49 Dose: 1 reagan Budesonide (Pulmicort Respules) 0.5 mg IH [id number] JEANA PRN Reason: Protocol Last Admin: 05/06/17 07:10 Dose: 0.5 mg Calcium Acetate (Phoslo) 667 mg PO DAILY [facility] PRN Reason: Protocol Last Admin: 05/05/17 09:54 Dose: 667 mg Cholecalciferol (Vitamin D) 1,000 iu PO DAILY [facility] PRN Reason: Protocol Last Admin: 05/05/17 09:54 Dose: 1,000 iu Digoxin (Lanoxin) 0.125 mg PO 1400 [facility] PRN Reason: Protocol Last Admin: 05/05/17 17:29 Dose: 0.125 mg Docusate Sodium (Colace) 100 mg PO TID [facility] PRN Reason: Protocol Last Admin: 05/05/17 09:52 Dose: 100 mg Furosemide (Lasix) 40 mg IVP DAILY [facility] PRN Reason: Protocol Last Admin: 05/05/17 11:42 Dose: 40 mg Guaifenesin (Mucinex La) 600 mg PO BID [facility] PRN Reason: Protocol Last Admin: 05/05/17 17:30 Dose: 600 mg Home Med (Home Med) 2 unit PO BID [facility] PRN Reason: Protocol Last Admin: 05/05/17 11:38 Dose: 2 unit Levothyroxine Sodium (Synthroid) 125 mcg PO 0600 [facility] PRN Reason: Protocol Last Admin: 05/06/17 05:33 Dose: 125 mcg Metoclopramide HCl (Reglan) 5 mg IVP Q8 PRN PRN Reason: Nausea/Vomiting Montelukast Sodium (Singulair) 10 mg PO DAILY [facility] PRN Reason: Protocol Last Admin: 05/05/17 09:54 Dose: 10 mg Nystatin (Nystatin Oral Susp) 5 ml PO QID [facility] PRN Reason: Protocol Last Admin: 05/05/17 21:59 Dose: 5 ml Ondansetron HCl (Zofran Inj) 4 mg IVP Q4H PRN; Protocol PRN Reason: Nausea/Vomiting Last Admin: 04/30/17 03:26 Dose: 4 mg Pantoprazole Sodium (Protonix Ec Tab) 40 mg PO 0600 [facility] PRN Reason: Protocol Last Admin: 05/06/17 05:33 Dose: 40 mg Polyethylene Glycol (Miralax) 17 gm PO BID [facility] PRN Reason: Protocol Last Admin: 05/05/17 17:30 Dose: 17 gm Prednisone (Prednisone Tab) 10 mg PO DAILY [facility] Last Admin: 05/05/17 09:54 Dose: 10 mg - Labs Labs: 05/06/17 06:30 05/05/17 06:35 - Constitutional Appears: No Acute Distress - Head Exam Head Exam: ATRAUMATIC, NORMOCEPHALIC - Respiratory Exam Respiratory Exam: Clear to Ausculation Bilateral, NORMAL BREATHING PATTERN - Cardiovascular Exam Cardiovascular Exam: +S1, +S2 - GI/Abdominal Exam GI & Abdominal Exam: Soft, Normal Bowel Sounds. absent: Tenderness - Neurological Exam Neurological Exam: Alert, Awake, Oriented x3 Assessment and Plan - Assessment and Plan (Free Text) Assessment: Klebsiella Urinary Tract infection Metastatic prostate cancer Chronic obstructive pulmonary disease Coronary artery disease hypothyroidism Diabetes mellitus II Plan: Patient is seen this morning. He is doing well. He will be discharged today. He will continue his home medications. Followup in the office in 10 days.
[2017-05-06] MEDS: Insulin Human NPH/Reg 70/30 Vial(3 ml) SC SCH (08:03)
--- NOTE | 2017-05-06 11:46 | PN ---
DATE: 05/06/2017 SUBJECTIVE: The patient is in bed, in no acute distress and nontoxic. No fevers and no chills. PHYSICAL EXAMINATION VITAL SIGNS: Temperature is 98, respiratory rate of 18, and heart rate of 64. HEENT: Examination of HEENT is unremarkable. NECK: Supple. CARDIOPULMONARY: Heart exam is normal S1 and S2. LUNGS: Decreased breath sounds. ABDOMEN: Soft and nontender. LABORATORY DATA: Examination reveals a white count of 10,000, hemoglobin of 9, and platelets of 233. Chemistries are noted BUN of 29 and creatinine of 1.1, Microbiology is noted. REVIEW OF ORDERS: Reveals that the patient to be on IV Lasix and the patient is off of any antibiotics. The patient also is on prednisone. ASSESSMENT AND PLAN: This is an 87-year-old male with status post lower urinary tract infection, the patient with indwelling Avendano catheter, carbapenem-resistant Klebsiella, history of right foot necrotic ulcer and surrounding cellulitis, urinary tract infection with Enterococcus and Klebsiella, currently off of antibiotics and afebrile. The patient is at risk for developing nosocomial infections. Review of the orders confirms the patient to be off of antibiotics. Elliot Hernandez MD
[2017-05-06 12:09] VITALS: BP 130/53; PULSE 68; RESP 18; TEMP 98.4; O2SAT 95
--- NOTE | 2017-05-06 13:14 | PN ---
DATE: 05/06/2017 REASON FOR CONSULTATION: Followup of coronary artery disease, cardiomyopathy, status post AICD, status post CABG, status post PTCA, PAF in PCU. SUBJECTIVE: The patient denies any chest pain, shortness of breath, or any palpitation. Feels better. Possible discharge home today. OBJECTIVE FINDINGS: VITAL SIGNS: Temperature afebrile, heart rate 64, blood pressure 137/56, height of the patient 5 feet 7 inches, weight of the patient 161. HEENT: PERRLA. Extraocular muscles are intact. NECK: Supple. No carotid bruits. No thyromegaly. CHEST: Clear to auscultation. HEART: S1 and S2 regular. ABDOMEN: Soft. EXTREMITIES: Clubbing and cyanosis negative. LABORATORY DATA: Blood workup as follows: WBC 10.8, hemoglobin 9.6, hematocrit 31.2, platelet count 233. Chemistry shows sodium 132, potassium 4.5, chloride 96, carbon dioxide 32, anion gap of 11, BUN 29, creatinine 1.1. IMPRESSION: An 87-year-old male with a past medical history significant for coronary artery disease, ischemic cardiomyopathy, mitral regurgitation, status post coronary artery bypass grafting; history of percutaneous transluminal coronary angioplasty, pre and post coronary artery bypass grafting, history of recently automated implantable cardioverter defibrillator generator changed 6 weeks ago, history of paroxysmal atrial fibrillation, history of chronic renal insufficiency, history of indwelling Avendano catheter, history of prostate carcinoma, history of hematuria; history of deep vein thrombosis in the past, more than 1 point *------*off anticoagulation because of hematuria, admitted at this time with hematuria which has resolved now. RECOMMENDATION: Continue amiodarone for possible atrial fibrillation. Continue aspirin. Continue digoxin. Continue atorvastatin. Continue levothyroxine. Possible discharge home today. We will follow with you. Thank you Dr. Polk for the opportunity of taking care of the patient. Upon discharge we will see as outpatient. Mely Chavarria MD
--- NOTE | 2017-05-08 08:49 | PN ---
SUBJECTIVE: The patient was seen and examined at bedside. He is receiving inhalation therapy with added budesonide. He is on Singulair and he is on low dose steroids, prednisone 10 mg. He appears comfortable with no respiratory distress. PHYSICAL EXAMINATION VITAL SIGNS: He temperature is 96.4, pulse 64, respirations 20, pulse oximetry is 100 on nasal cannula, blood pressure 137/56. HEENT: Within normal limits RESPIRATORY: Clear lungs CARDIOVASCULAR: S1, S2. No murmur, no gallops GASTROINTESTINAL: Abdomen is soft and nontender. No organomegaly. : Within normal limits EXTREMITIES: No pedal edema. NEUROLOGIC: No focal deficit. SKIN: Dry; intact LABORATORY DATA: Sodium 136, potassium 4.5. PLAN: He is doing well. He will be discharged today and will continue home medications as per our discussion with her primary care physician, Dr. Polk. Papa Cano MD MTDD
== END 2017-05-06 13:19 | disposition home health service (06) | DRG 945 ==
LOC: TRCU 13:35
PROVIDERS: ADMIT Internal Medicine; ATTEND Internal Medicine
PROC: F07Z9FZ Gait Training/Functional Ambulation Treatment using Assistive, Adaptive, Supportive or Protective Equipment (ICD-10-PCS; principal; 2017-04-30)
PROC: F07L6YZ Therapeutic Exercise Treatment of Musculoskeletal System - Lower Back / Lower Extremity using Other Equipment (ICD-10-PCS; 2017-04-30)
PROC: F07Z8FZ Transfer Training Treatment using Assistive, Adaptive, Supportive or Protective Equipment (ICD-10-PCS; 2017-04-30)
PROC: F08Z2FZ Grooming/Personal Hygiene Treatment using Assistive, Adaptive, Supportive or Protective Equipment (ICD-10-PCS; 2017-05-02)
DX: T83.511D Infection and inflammatory reaction due to indwelling urethral catheter, subsequent encounter (principal); N39.0 Urinary tract infection, site not specified; C77.2 Secondary and unspecified malignant neoplasm of intra-abdominal lymph nodes; C79.51 Secondary malignant neoplasm of bone; I13.0 Hypertensive heart and chronic kidney disease with heart failure and stage 1 through stage 4 chronic kidney disease, or unspecified chronic kidney disease; E11.22 Type 2 diabetes mellitus with diabetic chronic kidney disease; I50.42 Chronic combined systolic (congestive) and diastolic (congestive) heart failure; I42.0 Dilated cardiomyopathy; N02.9 Recurrent and persistent hematuria with unspecified morphologic changes; N18.4 Chronic kidney disease, stage 4 (severe); J44.1 Chronic obstructive pulmonary disease with (acute) exacerbation; E87.1 Hypo-osmolality and hyponatremia; I48.0 Paroxysmal atrial fibrillation; B96.1 Klebsiella pneumoniae [K. pneumoniae] as the cause of diseases classified elsewhere; I25.10 Atherosclerotic heart disease of native coronary artery without angina pectoris; E03.9 Hypothyroidism, unspecified; M19.90 Unspecified osteoarthritis, unspecified site; C61 Malignant neoplasm of prostate; D50.0 Iron deficiency anemia secondary to blood loss (chronic); I25.5 Ischemic cardiomyopathy; K59.09 Other constipation; Y84.6 Urinary catheterization as the cause of abnormal reaction of the patient, or of later complication, without mention of misadventure at the time of the procedure; Z95.1 Presence of aortocoronary bypass graft; Z79.84 Long term (current) use of oral hypoglycemic drugs; Z86.718 Personal history of other venous thrombosis and embolism; Z95.810 Presence of automatic (implantable) cardiac defibrillator; Z95.5 Presence of coronary angioplasty implant and graft; Z85.51 Personal history of malignant neoplasm of bladder; Z79.01 Long term (current) use of anticoagulants

== ENCOUNTER 2017-05-09 04:47 | Inpatient (IN) | payer MEDICARE ==
--- NOTE | 2017-05-09 05:08 | ED PDOC ---
Arrival/HPI <Jai Smith - Last Filed: 05/09/17 06:04> <Elliot Kirby - Last Filed: 05/09/17 06:57> - General Chief Complaint: Male Genitourinary Time Seen by Provider: 05/09/17 04:54 - History of Present Illness Narrative History of Present Illness (Text): 05/09/17 05:08 This is an 87yo M w a PMhx of prostate cancer, chronic indwelling schroeder catheter , chronic heart failure, chronic obstructive pulmonary disease, coronary artery disease, hypothyroidism who was recently discharged from the hospital for multidrug resistent UTI who has been having gross hematuria since admission to the hospital. The patient states that his Urologist, Dr. Louise, placed a special 3-lumen 22 [place] schroeder in order to have 24 hour bladder irrigation as to prevent the schroeder from clogging with clots. He was also prescribed Tranexamic acid by Dr. [facility]ball[facility] who is treating his cancer which is supposed to help halt bleeding. The patient has not been able to have 24-hour continuous irrigation at home, and the schroeder has since become "clogged" and the patient is complaining of suprapubic pain 2/2 to the urine backing up. The patient is short of breath at baseline, laying in bed, and always has 2L of O2 on. he denies any fevers/chills, MCKINNEY, CP, n/V/D, or lower extremity pain. 05/09/17 05:15 (Elliot Kirby) Past Medical History - Provider Review Nursing Documentation Reviewed: Yes - Travel History Have you recently traveled outside [place] w/in the past 3 mons?: No - Infectious Disease Hx of Infectious Diseases: None - Tetanus Immunization Tetanus Immunization: Unknown - Cardiac Hx Cardiac Disorders: Yes Hx Congestive Heart Failure: Yes Hx Internal Defibrillator: Yes Hx Pacemaker: Yes - Pulmonary Hx Chronic Obstructive Pulmonary Disease (COPD): Yes - Neurological Hx Neurological Disorder: No - HEENT Hx HEENT Disorder: Yes Hx Cataracts: Yes (WITH b/t SURGERY) - Renal Hx Renal Failure: Yes Other/Comment: has 2wfoley - Endocrine/Metabolic Hx Diabetes Mellitus Type 2: Yes - Hematological/Oncological Hx Blood Transfusions: Yes Hx Blood Transfusion Reaction: No - Integumentary Hx Dermatological Disorder: No - Musculoskeletal/Rheumatological Hx Musculoskeletal Disorders: No Hx Falls: No - Gastrointestinal Hx Gastrointestinal Disorders: No - Genitourinary/Gynecological Hx Reproductive Disorders: No Other/Comment: 2w schroeder fron home - Psychiatric Hx Psychophysiologic Disorder: No Hx Emotional Abuse: No Hx Physical Abuse: No Hx Substance Use: No - Surgical History Hx Angioplasty: Yes (Multiple angioplasties) Hx Cataract Extraction: Yes Hx Coronary Stent: Yes (x4 2001) Hx Open Heart Surgery: Yes (int pacemaker/defibrillator) Other/Comment: cardiac stents, 4 quadruple bypass in the past 3 years, indwelling schroeder catheter placement. cystoscopy x3 weeks ago - Anesthesia Hx Anesthesia Reactions: No Hx Malignant Hyperthermia: No - Suicidal Assessment Feels Threatened In Home Enviroment: No <Elliot Kirby - Last Filed: 05/09/17 06:57> Family/Social History - Physician Review Nursing Documentation Reviewed: Yes Family/Social History: No Known Family HX Smoking Status: Never Smoked Hx Alcohol Use: No Hx Substance Use: No Hx Substance Use Treatment: No <Elliot Kirby - Last Filed: 05/09/17 06:57> Allergies/Home Meds <Jai Smith - Last Filed: 05/09/17 06:04> <Elliot Kirby - Last Filed: 05/09/17 06:57> Allergies/Adverse Reactions: Allergies Iodinated Contrast- Oral and IV Dye Allergy (Verified 05/09/17 04:56) ANAPHYLAXIS levofloxacin [From Levaquin] Allergy (Verified 05/09/17 04:56) ANAPHYLAXIS Home Medications: Home Meds Medication Instructions Recorded Confirmed Amiodarone HCl 200 mg PO DAILY 06/14/12 04/30/17 Montelukast [Singulair] 10 mg PO DAILY 06/14/12 04/30/17 Pantoprazole [Protonix EC Tab] 40 mg PO DAILY 05/30/14 04/30/17 Insulin Human NPH/Reg [HumuLIN 20 units SC ACHS 04/09/16 04/30/17 70/30 (NPH/Reg)] Calcium Acetate [Phoslo] 667 mg PO DAILY 07/25/16 04/30/17 Digoxin [Lanoxin] 0.125 mg PO DAILY 07/25/16 04/30/17 Furosemide [Lasix] 40 mg PO BID 07/25/16 04/30/17 Levothyroxine [Synthroid] 100 mcg PO DAILY 07/25/16 04/30/17 Albuterol 0.083% [Albuterol 0.083% 3 ml IH QID 11/19/16 04/30/17 Inhal Raissa (2.5 mg/3 ml) UD] Acetaminophen/Codeine 1 tab PO PRN PRN 04/23/17 04/30/17 [Tylenol/Codeine 300 MG/30 MG] Tranexamic Acid 2 tab PO BID 04/23/17 04/30/17 Review of Systems - Physician Review All systems were reviewed & negative as marked: Yes - Review of Systems Constitutional: absent: Fatigue, Weight Change Eyes: absent: Vision Changes ENT: absent: Hearing Changes Respiratory: SOB Cardiovascular: absent: Chest Pain, Palpitations, Edema Gastrointestinal: Abdominal Pain (suprapubic ) Genitourinary Male: Hematuria. absent: Dysuria, Frequency Musculoskeletal: absent: Arthralgias Skin: absent: Rash, Pruritis Neurological: absent: Headache Endocrine: absent: Diaphoresis Hemo/Lymphatic: absent: Adenopathy Psychiatric: absent: Anxiety, Depression <Elliot Kirby - Last Filed: 05/09/17 06:57> Physical Exam Temperature: Afebrile Blood Pressure: Normal Pulse: Regular Respiratory Rate: Normal Appearance: Positive for: Other (chronically ill appearing ) Mental Status: Positive for: Alert and Oriented X 3 - Systems Exam Head: Present: Atraumatic Pupils: Present: PERRL Extroacular Muscles: Present: EOMI Conjunctiva: Present: Normal Mouth: Present: Dry Pharnyx: Present: Normal Neck: Present: Normal Range of Motion. No: Meningeal Signs Respiratory/Chest: No: Clear to Auscultation, Wheezes (bi-basilar crackles) Cardiovascular: Present: Regular Rate and Rhythm, Murmurs (aortic stenosis ), Normal S1, S2 Abdomen: Present: Distention (suprapubic tenderness; full bladder palpation at level of umbilicus ). No: Tenderness Back: Present: Normal Inspection. No: CVA Tenderness Upper Extremity: Present: Normal Inspection. No: Cyanosis, Edema Lower Extremity: Present: Normal Inspection, Edema (+2 pitting edema b/l up to knee). No: CALF TENDERNESS Neurological: Present: GCS=15, CN II-XII Intact Skin: Present: Warm <Elliot Kirby - Last Filed: 05/09/17 06:57> Vital Signs Temp Pulse Resp BP Pulse Ox 05/09/17 04:57 98.0 F 71 18 121/54 L 99 Medical Decision Making <Jai Smith - Last Filed: 05/09/17 06:04> <Elliot Kirby - Last Filed: 05/09/17 06:57> ED Course and Treatment: Patient Seen With Resident: In agreement with resident note which contains more details about the patient. Patient was seen and evaluated with resident. Came up with plan and treatment together. (Jai Smith) 05/09/17 05:12 Will order CBC CMP Urinalysis and culture patients VSS; currently in no acute distress; ANOx3 Will order bladder irrigation 05/09/17 05:57 Patient feels better after bladder irrigation continuous irrigation set up bladder scan revealed no retained urine Awaiting blood work 05/09/17 06:47 Creatinine 1.5; was 1.1 on d/c 3 days ago ARGENIS Patient is agreeable for admission for treatment of ARGENIS most likely 2/2 to dehydration Will speak to Dr. Marcus 05/09/17 06:50 05/09/17 06:[address] Marcus who is agreeable for admission Dr. Louise and Dr. Lozano are on consult Started 150ml/hr NS for ARGENIS Case discussed w/ Dr. Smith (Elliot Kirby) - Lab Interpretations Lab Results: 05/09/17 06:20 05/09/17 06:20 Lab Results 05/09/17 06:20: Sodium 138, Potassium 4.5, Chloride 100, Carbon Dioxide 31, Anion Gap 12, BUN 47 H, Creatinine 1.5 H, Est GFR ( Amer) 54, Est GFR ( Non-Af Amer) 44, Random Glucose 131 H, Calcium 8.9, Total Bilirubin 0.4, AST 65 H, ALT 106 H, Alkaline Phosphatase 104, Total Protein 6.0, Albumin 3.5, Globulin 2.5, Albumin/Globulin Ratio 1.4 05/09/17 06:20: WBC 9.8, RBC 3.42 L, Hgb 9.2 L, Hct 29.1 L, MCV 85.1, MCH 26.9, MCHC 31.6, RDW 14.9 H, Plt Count 206, MPV 9.3, Gran % 75.5 H, Lymph % (Auto) 14.6 L, [place] % (Auto) 8.6 H, Eos % (Auto) 1.1 L, Baso % (Auto) 0.2, Gran # 7.36 H, Lymph # 1.4, [place] # 0.8 H, Eos # 0.1, Baso # 0.02 - Medication Orders Current Medication Orders: Sodium Chloride (Sodium Chloride 0.9%) 100 mls @ 150 mls/hr IV .Q40M JEANA - PA / HISTOPATHOLOGY TECHNICIAN / Resident Statement / has reviewed & agrees with the documentation as recorded. / has examined the patient and agrees with the treatment plan. <Jai Smith - Last Filed: 05/09/17 06:04> Disposition/Present on Arrival <Jai Smith - Last Filed: 05/09/17 06:04> - Present on Arrival Any Indicators Present on Arrival: Yes History of DVT/PE: No History of Uncontrolled Diabetes: No Urinary Catheter: Yes History of Decub. Ulcer: No History Surgical Site Infection Following: None - Disposition Have Diagnosis and Disposition been Completed?: Yes Disposition Time: 06:52 Patient Plan: Observation <Elliot Kirby - Last Filed: 05/09/17 06:57> - Disposition Diagnosis: ARGENIS (acute kidney injury) Disposition: HOSPITALIZED Patient Problems: Current Active Problems Problem Status Onset ARGENIS (acute kidney injury) Acute Condition: FAIR Referrals: Thanh Polk MD [Primary Care Provider] - Follow up with primary
[2017-05-09 06:23] LABS: ADD MANUAL DIFF? NO
[2017-05-09 06:35] LABS: ALB/GLOB RATIO 1.4 (1.1-1.8); BILIRUBIN,TOTAL 0.4 mg/dL (0.2-1.3); CALCIUM 8.9 mg/dL (8.4-10.5); POTASSIUM 4.5 mmol/L (3.6-5.0)
[2017-05-09 06:50] LABS: BASO # 0.02 K/mm3 (0.0-2.0); BASO % 0.2 % (0.0-3.0); EOS # 0.1 (0.0-0.7); EOS % 1.1 % (1.5-5.0); GRAN # 7.36 (1.4-6.5); GRAN % 75.5 % (50.0-68.0); HEMATOCRIT 29.1 % (42.0-52.0); LYMPH # 1.4 (1.2-3.4); LYMPH % 14.6 % (22.0-35.0); MEAN CELL VOLUME 85.1 fL (80.0-105.0); MEAN CORPUSCULAR HEMOGLOBIN 26.9 pg (25.0-35.0); MEAN CORPUSCULAR HGB CONC 31.6 g/dl (31.0-37.0); MEAN PLATELET VOLUME 9.3 fl (7.0-11.0); MONO # 0.8 (0.1-0.6); MONO % 8.6 % (1.0-6.0); PLATELET COUNT 206 10^3/uL (120.0-450.0); RED CELL DISTRIBUTION WIDTH 14.9 % (11.5-14.5); WHITE BLOOD COUNT 9.8 10^3/ul (4.5-11.0)
[2017-05-09] MEDS ORDERED: Sodium Chloride 0.9% 1,000 ML IV SCH ×2 (06:56→10:12)
[2017-05-09 07:16] LABS: URINE BILIRUBIN NEGATIVE (NEGATIVE); URINE BLOOD LARGE (NEGATIVE); URINE GLUCOSE (UA) NEGATIVE (NEGATIVE); URINE KETONE NEGATIVE (NEGATIVE); URINE LEUKOCYTE ESTERASE SMALL Leu/uL (NEGATIVE); URINE PROTEIN NEGATIVE mg/dL (<30 mg/dL); URINE UROBILINOGEN 0.2 E.U./dL (<1 E.U./dL)
[2017-05-09 07:26] LABS: URINE APPEARANCE CLEAR (CLEAR); URINE BACTERIA NEG (NEG); URINE COLOR STRAW (YELLOW); URINE EPITHELIAL CELLS 0 - 2 /hpf (0-5)
--- NOTE | 2017-05-09 08:29 | CP.PCM.HP ---
History of Present Illness - History of Present Illness History of Present Illness: This is an 87 year old male with multiple medical problems, including metastatic prostate cancer, chronic kidney disease, chronic obstructive pulmonary disease, coronary artery disease, hypothyroidism, type II diabetes mellitus, and arthritis, who presented to the Emergency Room with hematuria. Patient says he began passing large clots of blood. The clots were unable to pass through the schroeder catheter. Patient has chronic indwelling schroeder catheter. Patient also found to have hemoglobin of 9.2 and increased BUN and creatinine. He denies chest pain or shortness of breath. Present on Admission - Present on Admission Any Indicators Present on Admission: Yes History of DVT/PE: Yes History of Uncontrolled Diabetes: No Urinary Catheter: Yes Decubitus Ulcer Present: No Review of Systems - Constitutional Constitutional: absent: Chills, Fever, Night Sweats - Cardiovascular Cardiovascular: absent: Chest Pain, Dyspnea, Palpitations - Respiratory Respiratory: absent: Cough, Dyspnea, Wheezing - Gastrointestinal Gastrointestinal: Abdominal Pain - Genitourinary Genitourinary: Hematuria Past Patient History - Infectious Disease Hx of Infectious Diseases: None - Tetanus Immunizations Tetanus Immunization: Unknown - Past Medical History & Family History Past Medical History?: Yes - Past Social History Smoking Status: Never Smoked - CARDIAC Hx Cardiac Disorders: Yes Hx Congestive Heart Failure: Yes Hx Internal Defibrillator: Yes Hx Pacemaker: Yes - PULMONARY Hx Chronic Obstructive Pulmonary Disease (COPD): Yes - NEUROLOGICAL Hx Neurological Disorder: No - HEENT Hx HEENT Problems: Yes Hx Cataracts: Yes (WITH b/t SURGERY) - RENAL Hx Renal Failure: Yes Other/Comment: has 2wfoley - ENDOCRINE/METABOLIC Hx Diabetes Mellitus Type 2: Yes - HEMATOLOGICAL/ONCOLOGICAL Hx Blood Transfusions: Yes Hx Blood Transfusion Reaction: No - INTEGUMENTARY Hx Dermatological Problems: No - MUSCULOSKELETAL/RHEUMATOLOGICAL Hx Musculoskeletal Disorders: No Hx Falls: No - GASTROINTESTINAL Hx Gastrointestinal Disorders: No - GENITOURINARY/GYNECOLOGICAL Hx Reproductive Disorders: No Other/Comment: 2w schroeder fron home - PSYCHIATRIC Hx Psychophysiologic Disorder: No Hx Emotional Abuse: No Hx Physical Abuse: No Hx Substance Use: No - SURGICAL HISTORY Hx Angioplasty: Yes (Multiple angioplasties) Hx Cataract Extraction: Yes Hx Coronary Stent: Yes (x4 2001) Hx Open Heart Surgery: Yes (int pacemaker/defibrillator) Other/Comment: cardiac stents, 4 quadruple bypass in the past 3 years, indwelling schroeder catheter placement. cystoscopy x3 weeks ago - ANESTHESIA Hx Anesthesia Reactions: No Hx Malignant Hyperthermia: No Meds Allergies/Adverse Reactions: Allergies Allergy/AdvReac Type Severity Reaction Status Date / Time Iodinated Contrast- Oral and Allergy ANAPHYLAXIS Verified 05/09/17 04:56 IV Dye levofloxacin [From Levaquin] Allergy ANAPHYLAXIS Verified 05/09/17 04:56 Physical Exam - Constitutional Appears: No Acute Distress - Head Exam Head Exam: ATRAUMATIC, NORMOCEPHALIC - Respiratory Exam Respiratory Exam: Clear to Auscultation Bilateral, NORMAL BREATHING PATTERN - Cardiovascular Exam Cardiovascular Exam: REGULAR RHYTHM, +S1, +S2 - GI/Abdominal Exam GI & Abdominal Exam: Normal Bowel Sounds, Soft. absent: Tenderness - Neurological Exam Neurological exam: Alert, CN II-XII Intact, Oriented x3 Results - Vital Signs Recent Vital Signs: Last Vital Signs Temp 98.0 F 05/09/17 04:57 Pulse 60 05/09/17 07:16 Resp 16 05/09/17 07:16 BP 128/63 05/09/17 07:16 Pulse Ox 100 05/09/17 07:16 - Labs Result Diagrams: 05/09/17 06:20 05/09/17 06:20 Assessment & Plan - Assessment and Plan (Free Text) Assessment: Hematuria with large blood clots Acute on chronic kidney disease Anemia with active bleeding Metastatic prostate cancer CAD COPD Hypothyroidism DMII Chronic systolic and diastolic heart failure Plan: Patient is seen this morning. Urine appears to be clearing up with continuous bladder irrigation. Consult Dr. Louise, urologist. BUN and creatinine are slightly elevated. Will consult Dr. Lozano, sql data architect. Hemoglobin has decreased to 9.2. Patient's baseline is between 10 and 11. He is actively bleeding and is a heart patient. Will type and cross 2 units and transfuse 1 unit PRBCs today. continue maintenance medications
[2017-05-09] MEDS: Levothyroxine 100 MCG TAB PO SCH (10:17)
[2017-05-09] MEDS: Pantoprazole 40 mg EC Tab PO SCH (10:18)
[2017-05-09] MEDS: TRANEXAMIC ACID PO SCH ×2 (10:19→17:35)
[2017-05-09 10:36] LABS: MAGNESIUM 1.9 mg/dL (1.7-2.2)
[2017-05-09] MEDS: Insulin Human NPH/Reg 70/30 Vial(3 ml) SC SCH ×3 (11:30→21:54)
[2017-05-09 13:46] VITALS: BMI 23.7
[2017-05-09] MEDS ORDERED: Pneumococcal 23-Valent Vaccine IM ONE (13:53)
[2017-05-09] MEDS: Albuterol 0.083% Inhal Sol (2.5 mg/3 mL) UD IH SCH ×4 (16:26→23:23)
[2017-05-09] MEDS: Digoxin 125 mcg (0.125 mg) Tab PO SCH (16:26)
--- NOTE | 2017-05-09 20:34 | CON ---
DATE: 05/09/2017 PULMONARY CONSULTATION REFERRING PHYSICIAN: Dr. Polk. REASON FOR CONSULTATION: Chronic obstructive pulmonary disease. HISTORY OF PRESENT ILLNESS: The patient is an 87-year-old chronically ill male, with past medical history significant for advanced prostate cancer, recurrent hematuria, chronic obstructive pulmonary disease, chronic kidney disease, coronary artery disease, and cardiomyopathy, who presents to the emergency room with increasing blood clots-- within his chronic indwelling Avendano. In addition, the patient also complains of some suprapubic pain. He was thus admitted for additional evaluation. The patient is not short of breath at rest. He does have chronic dyspnea on exertion. There is no history of significant cough or sputum production. There is no history of chest pain, coughing up of blood, or chest pain - made worse with deep respirations. There is no history of temperatures, chills, or infectious exposure. There is no history of night sweats, weight loss, or appetite change prior to the above events. No history of leg or calf pains. No history of syncope or diaphoresis. No history of recent travel or trauma. ALLERGIES: INTRAVENOUS DYE AND LEVOFLOXACIN. HOME MEDICATIONS: Include Protonix, Singulair, PhosLo, Lipitor, albuterol nebulizer treatments, prednisone, Synthroid, insulin, Lasix, and Lanoxin. FAMILY HISTORY: No inheritable diseases. SOCIAL HISTORY: Positive for tobacco. Negative for alcohol. REVIEW OF SYSTEMS: No history of nausea, vomiting, or diarrhea. No new neurological or musculoskeletal complaints. Rest of the review of systems is negative. PHYSICAL EXAMINATION: GENERAL: The patient is not short of breath at rest. He is not using accessory muscles for breathing. VITAL SIGNS: Temperature 98.0, pulse 60, respirations 16, blood pressure 128/63, and oxygen saturation on nasal cannula is 100%. HEENT: Normocephalic, atraumatic. NECK: No JVD. CARDIOVASCULAR: Systolic ejection murmur at the low left sternal border. No S3 gallop. LUNGS: Decreased breath sounds at the bases. Minimal bilateral rhonchi. No wheezing. EXTREMITIES: Positive for mild edema. No cyanosis or clubbing. The calves are nontender to palpation. GASTROINTESTINAL: Abdomen is soft, nondistended, and nontender to palpation. Bowel sounds are positive. SKIN: No acute rash. NEUROLOGIC: Limited at the present time. PERTINENT LABORATORY DATA: CBC: White count 9.8, hemoglobin 9.2, hematocrit 29.1, and platelets are 206. Complete metabolic profile: BUN 47, creatinine 1.5, glucose 131, AST 65, ALT 106. IMPRESSION: 1. Advanced prostate cancer. 2. Recurrent hematuria. 3. Chronic obstructive pulmonary disease. 4. Coronary artery disease. 5. Chronic renal disease. 6. Chronic anemia. PLAN: The patient presents to [facility] after noticing increased blood clots in his chronic indwelling Avendano. In addition, the patient also states to some mild suprapubic pain. He was thus admitted for additional evaluation. At this point in time, the patient offers no new pulmonary symptoms. He does have chronic dyspnea on exertion. On physical examination, there is mild bronchospasm noted. However, the oxygen saturation is now 100% on nasal cannula. I will continue with the current nebulizer treatments and low dose oral prednisone - already ordered. Renal and genitourinary evaluations have also been ordered. The patient does feel better this morning and is clinically improved. However, the overall status/prognosis of this patient remains very guarded. All are aware of. I will discuss the above with the attending physician this morning. Thank you very much for this pulmonary consultation. Kwadwo Arias MD ANNABELLA
--- NOTE | 2017-05-09 22:03 | CON ---
DATE: 05/09/2017 The patient admitted by Dr. Polk. REFERRING PHYSICIAN: Dr. Polk. REASON FOR CONSULTATION AND EVALUATION: The patient known to us from past hospitalization who presents with an elevated BUN and creatinine in the setting of nonfunctioning Avendano catheter. HISTORY OF PRESENT ILLNESS: The patient is an 87-year-old white male with a history of metastatic prostate cancer, the patient has an indwelling Avendano catheter. The patient was discharged home from the TCU several days ago. He states that the catheter is not functioning. States he has gross hematuria. The patient was treated for Klebsiella urinary tract infection during the past admission. The patient has a history of NIDDM currently on insulin. Past history of mild hyponatremia and history of mild hyperkalemia. History of anemia secondary to underlying medical history of cancer and hematuria. History of ASHD status post CABG, PTCA, AICD, history of hypertension, COPD, history of CHF and past history of DVT. The patient states that he had a non-functioning Avendano catheter. He came back to the emergency room. In the emergency room, he was noted to have hemoglobin of 9.2, which is close to his baseline level. Chemistry showed BUN of 47 with a creatinine of 1.5. When he left the hospital several days ago, his BUN is 29 with a creatinine of 1.1. The patient has been maintained on Lasix and oral steroids. The patient comes in for evaluation of his poorly functioning Avendano catheter and an elevated BUN and creatinine. PAST MEDICAL HISTORY: Significant for metastatic prostate cancer, history of Klebsiella UTI, history of NIDDM currently on insulin, hypertension, COPD, ASHD status post CABG, PTCA, AICD, history of anemia and past history of DVT. MEDICATIONS AT HOME: Include, Protonix, Singulair, PhosLo, Lipitor, amiodarone, albuterol, Tylenol with codeine, prednisone, tranexamic acid, Synthroid, insulin, p.o. Lasix, Hectorol and Lanoxin. ALLERGIES: THE PATIENT IS ALLERGIC TO ORAL AND IV CONTRAST DYE AND LEVAQUIN. PRESENT MEDICATIONS IN HOSPITAL: Include that of, albuterol, amiodarone, Hectorol, Lanoxin, oral Lasix, Lipitor, PhosLo, prednisone, Protonix, Singulair, normal saline, Synthroid and tranexamic acid. SOCIAL HISTORY: No history of cigarette smoking. No history of alcohol use. FAMILY HISTORY: Noncontributory as per all charts. REVIEW OF SYSTEMS: GENERAL. The patient states weight has been stable since leaving the hospital. ENT: Denies any hearing or visual problems. PULMONARY: No shortness of breath. History of COPD. CARDIAC: Positive cardiac history as noted above. Presently no chest pain or palpitations. GASTROINTESTINAL: No nausea, vomiting, abdominal pain, diarrhea or constipation. GENITOURINARY: As noted above, poorly functioning Avendano catheter with gross hematuria. ENDOCRINE: Positive for diabetes mellitus and secondary hyperparathyroidism. MUSCULOSKELETAL: No complaints. NEUROLOGIC: No history of CVA, TIA, seizures or syncope. HEMATOLOGY/ONCOLOGY: Positive for anemia, positive for malignancy as noted above. PSYCHIATRIC: Negative. PHYSICAL EXAMINATION GENERAL: The patient is currently seen on . He appears to be in no acute distress. He is awaiting urological evaluation and perhaps restarting irrigation of his Avendano catheter. VITAL SIGNS: Blood pressure 128/63, temperature 98, respiratory rate 16 with a pulse of 60 and pulse ox is 100%. HEENT: Shows him to be normocephalic and atraumatic. Pupils are equal and reactive to light and accommodation. Extraocular muscles are intact. Conjunctiva are pink. Sclera anicteric. NECK: Supple. No jugular vein distention. No thyromegaly. No lymphadenopathy. No bruits. CHEST: Clear to auscultation and percussion. No rales, no rhonchi, no wheezing. CARDIOPULMONARY: Shows regular S1 and S2. Positive aortic stenosis. Mitral regurgitation. Tricuspid regurgitation. No S3 or S4. No rub. ABDOMEN: Soft and nondistended. Bowel sounds are normal. No rebound. No guarding. No masses. BACK: No CVT, no spinal tenderness. : Positive for an indwelling Avendano catheter with gross hematuria. EXTREMITIES: Showed no lower extremity cyanosis, clubbing or edema. Diminished lower extremity pulses of 1 to +2 bilaterally. NEUROLOGIC: Alert and oriented X3 with no gross focal, motor, or sensory deficits. LABORATORY DATA AND IMAGING: No imaging studies done as of present. CBC: White blood cell count 9.8, hemoglobin 9.2 with a platelet count of 206,000. Chemistry showed normal electrolytes. BUN 47, creatinine 1.5 up from the baseline BUN in the upper 20s with the baseline creatinine of 1.1. Glucose is 131. Slight elevation of his liver enzymes. AST 65 with an ALT of 106, albumin 3.5. Calcium is 8.9. No cultures available. ASSESSMENT: 1. Acute renal failure superimposed likely on chronic kidney disease stage II. This is possibly in the setting of gross hematuria and perhaps a poorly functioning Avendano catheter. The patient is awaiting urological intervention. If his BUN and creatinine do not fall back to baseline levels with CBI and clearing of hematuria. Imaging studies should be done to rule out any obstructive uropathy. 2. Recent Klebsiella urinary tract infection, check urinalysis and urine culture and sensitive. 3. History of vny-bebhrzt-pyxdglyrn diabetes mellitus on insulin. Continue to monitor sugars closely and adjust medicines accordingly. 4. History of hypertension, blood pressure controlled on present medication. 5. History of anemia. The patient is perhaps slightly more anemic, perhaps secondary to gross hematuria. Continue to monitor hemoglobin and transfuse on p.r.n. basis. 6. History of arteriosclerotic heart disease, history of paroxysmal atrial fibrillation, history of valvular heart disease. History of coronary artery bypass grafting. History of percutaneous transluminal coronary angioplasty. History of automatic implantable cardioverter-defibrillator. All appear to be stable. The patient will continue present cardiac medications. 7. History of congestive heart failure. The patient continues on Lasix therapy. Need to be cautious not to over hydrate. The patient with normal saline. I will decrease the normal saline rate to 60 mL an hour. 8. History of chronic obstructive pulmonary disease, continue inhalation therapy. 9. History of hypothyroidism, the patient appears to be clinically euthyroid. 10. Past history of deep vein thrombosis. PLAN: 1. Continue urinalysis and urine culture. 2. Continue to monitor required Is and Os. 3. Caution not over hydrate, patient had a history of CHF. 4. Await involvement in terms of bladder irrigation and clearing of hematuria. 5. Close renal follow up during hospitalization. Choco White MD MTDD
--- NOTE | 2017-05-10 05:23 | CON ---
DATE: 05/09/2017 CONSULT SERVICE: Cardiology. REASON FOR THE CONSULTATION: Cardiac evaluation, history of CAD, history of CABG, history of AICD, and cardiomyopathy. BRIEF CLINICAL HISTORY: This is an 87-year-old male with past medical history significant for coronary artery disease status post PTCA, status post CABG, status post PTCA, pre-CABG and post-CABG, status post AICD, chronic renal insufficiency, history of prostate CA, indwelling Avendano catheter, admitted because of hematuria. He was recently discharged 2 days ago. Admitted with gopi hematuria and clogged catheter. Hemoglobin dropped, admitted to [facility] bed [facility]. Denies any chest pain, shortness of breath, or any palpitation. PAST MEDICAL HISTORY: Past history significant for CAD, CABG, pre and post PTCA, history of AICD, history of recent generator change two months ago, history of prostate CA with indwelling catheter, CKD, hypertension, paroxysmal atrial fibrillation, history of DVT, at one point the patient was on Pradaxa, discontinued it because of the hematuria; history of COPD, history of non-STEMI, history of chronic renal insufficiency, medical treatment recommended. Last cardiac workup as follows: Last echo 12/20/2016, ejection fraction 45%, moderate mitral regurgitation and mild to moderate TR, RV systolic pressure of 43. CURRENT MEDICATIONS: The patient is taking at home prednisone, tranexamic acid for hematuria, Protonix, Levothyroxine, Lasix, Lanoxin, Lipitor, amiodarone, and treatment. REVIEW OF SYSTEMS: As per HPI. PHYSICAL EXAMINATION: VITAL SIGNS: Temperature: Afebrile, heart rate 59, blood pressure 132/53. HEENT: PERRLA. Extraocular movements are intact. NECK: Supple. No carotid bruit, no thyromegaly. CHEST: Clear to auscultation. HEART: S1, S2, regular. ABDOMEN: Soft. EXTREMITIES: Clubbing and cyanosis negative. LABORATORY DATA: Blood workup as follows: WBC 9.2, hemoglobin 9, hematocrit 29.1, platelets 206. Chemistry shows sodium 130, potassium 4.5, chloride 100, CO2 35, anion gap of 4, BUN 47, creatinine 1.5. Total protein 6, albumin 3.5, albumin globulin ratio 1.4. IMPRESSION: 1. Gross hematuria. Hemoglobin dropped to 9.2. 2. Indwelling Avendano catheter. 3. Recurrent urinary tract infection. 4. Prostate cancer. 5. History of coronary artery disease status post coronary artery bypass grafting, status post percutaneous transluminal coronary angioplasty, multiple pre and post coronary artery bypass grafting. 6. History of mitral valve replacement. 7. History of atrial fibrillation, paroxysmal. 8. History of chronic kidney disease. 9. Hypertension. 10. History of deep venous thrombosis, at one point, patient was off anticoagulation because of hematuria, indwelling Avendano catheter, prostate cancer with metastasis, coronary artery bypass grafting, status post automatic implantable cardioverter-defibrillator generator changed 2 months ago, mild to moderate aortic stenosis, cardiomyopathy with ejection fraction of 45%, peak gradient across aortic valve is 20 mm, mean gradient is 12 mm, valve area of 1.3 sq cm consistent with mild to moderate aortic stenosis, moderate mitral regurgitation and mild to moderate tricuspid regurgitation, RV systolic pressure of 43. RECOMMENDATION: We will give him 1 unit of packed RBC . We will give 40 of Lasix post RBC transfusion. Repeat the blood workup in the morning. We will keep a little negative fluid balance. We will follow with you. Thank you Dr. Polk for providing me the opportunity in taking care of the patient. Mely Chavarria MD
[2017-05-10 07:04] LABS: ADD MANUAL DIFF? NO
[2017-05-10 07:12] LABS: BASO # 0.02 K/mm3 (0.0-2.0); BASO % 0.2 % (0.0-3.0); EOS # 0.1 (0.0-0.7); EOS % 1.1 % (1.5-5.0); GRAN # 6.85 (1.4-6.5); GRAN % 73.7 % (50.0-68.0); HEMATOCRIT 29.6 % (42.0-52.0); LYMPH # 1.5 (1.2-3.4); LYMPH % 15.6 % (22.0-35.0); MEAN CELL VOLUME 85.1 fL (80.0-105.0); MEAN CORPUSCULAR HEMOGLOBIN 27.3 pg (25.0-35.0); MEAN CORPUSCULAR HGB CONC 32.1 g/dl (31.0-37.0); MEAN PLATELET VOLUME 9.2 fl (7.0-11.0); MONO # 0.9 (0.1-0.6); MONO % 9.4 % (1.0-6.0); PLATELET COUNT 189 10^3/uL (120.0-450.0); RED CELL DISTRIBUTION WIDTH 15.1 % (11.5-14.5); WHITE BLOOD COUNT 9.3 10^3/ul (4.5-11.0)
[2017-05-10] MEDS: Albuterol 0.083% Inhal Sol (2.5 mg/3 mL) UD IH SCH ×7 (07:14→22:00)
[2017-05-10 07:26] LABS: BLOOD UREA NITROGEN 36 mg/dL (7-21); CALCIUM 8.6 mg/dL (8.4-10.5); CARBON DIOXIDE 31 mmol/L (21-33); CHLORIDE 102 mmol/L (98-107); GFR AFRICAN-AMERICAN > 60; GLUCOSE,RANDOM 77 mg/dL (70-110); POTASSIUM 4.1 mmol/L (3.6-5.0); SODIUM 140 mmol/L (132-148)
[2017-05-10] MEDS: Insulin Human NPH/Reg 70/30 Vial(3 ml) SC SCH ×4 (08:18→22:47)
[2017-05-10] MEDS: Levothyroxine 100 MCG TAB PO SCH (09:36)
[2017-05-10] MEDS: Pantoprazole 40 mg EC Tab PO SCH (09:36)
[2017-05-10] MEDS: TRANEXAMIC ACID PO SCH (09:41)
[2017-05-10] MEDS ORDERED: POLYETHYLENE GLYCOL 3350 17 GM/Dose PACKET PO SCH (10:00)
--- NOTE | 2017-05-10 13:01 | PN ---
DATE: 05/10/2017 SUBJECTIVE: The patient appears more comfortable this morning. He is not short of breath at rest. PHYSICAL EXAMINATION: VITAL SIGNS: Temperature 97.8, pulse 61, respirations 18, blood pressure 140/61. Oxygen saturation on nasal cannula is 98%. HEENT: Normocephalic and atraumatic. NECK: No JVD. CARDIOVASCULAR: Systolic ejection murmur at the low left sternal border. No S3 gallop. LUNGS: Decreased breath sounds at the bases. Less rhonchi. No wheezing. GI: Abdomen is soft, nontender, nondistended. Bowel sounds are positive. EXTREMITIES: Positive for mild edema. No cyanosis or clubbing. The calves are nontender to palpation. SKIN: No acute rash. NEUROLOGIC: Limited at the present time. IMPRESSION: 1. Advanced prostate cancer. 2. Recurrent hematuria. 3. Chronic obstructive pulmonary disease. 4. Coronary artery disease. 5. Chronic renal disease. 6. Chronic anemia. PLAN: The patient appears more comfortable this morning. He is not short of breath at rest. He does state he is feeling better overall. On physical exam, there is less bronchospasm noted. The oxygen saturation is 98% on nasal cannula. I will continue with the current nebulizer treatments and low-dose oral steroids for now. Inputs by Renal and Cardiology are noted. Clinical status, the patient is certainly improved. However, again the overall status/prognosis for this very elderly patient - with multiple medical problems - remains very guarded. All are aware. I will discuss the above with the attending physician. Kwadwo Arias MD ANNABELLA
--- NOTE | 2017-05-10 13:01 | CP.PCM.CON ---
Addendum entered and electronically signed by Devora Alvarado DO 05/10/17 18:53 : Will visit bone mets issue tomorrow: Aredia vs Zometa vs Denosumab (Xgeva). Addendum entered and electronically signed by Devora Alvarado DO 05/10/17 18:48 : Per Dr. Carballo, he will restart pt on Zytiga, once daily. Asked pt to bring pill from home to start during this hospital stay. His previous complaint on Zytiga was abdominal pain. As for ZOEY, not suitable for pt due to water retention effect. May consider eventually adding lupron to zytiga. Original Note: <Devora Alvarado - Last Filed: 05/10/17 13:58> History of Present Illness - History of Present Illness History of Present Illness: PGY-[address] 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 Pt was discharged home from TCU last Monday with a triple-lumen schroeder. He was on transexamic acid 1 tablet a day upon discharge. He began passing large clots of blood Monday night, so patient resume 2 tablets of tranexamic acid BID. Yesterday, the blood in schroeder became thick, and the clots were unable to pass through the schroeder catheter. He experienced 10/10 frequent bladder spasms, which prompted the pt to come to the emergency room. Upon ED arrival, T 98, HR 71. BP 121/54, RR 18, 99RA H/H was 9.2/29 BUN 47, creatinine 1.5 AST 65, ALT 104, LDH 104 Pt started CBI and receiving 2nd u pRBC today. ROS Denies MCKINNEY. dizziness, CP, SOB, N/V/C/D, regular BM every day (+) back pain, (+) bladder spasm PMH - CAD cardiac stents, 4 quadruple bypass in the past 3 years, indwelling schroeder catheter placement - ischemic cardiomyopathy with ICD placmenet; Chronic systolic and diastolic heart failure - A-fib on amiodarone x 30 years - COPD - Ckd, stage 3A - urethral stricture on chronic schroeder with leg bag - chronic hematuria - hypothyroidism - type II diabetes mellitus - stage 4 prostate ca - Anemia with active bleeding - Hx DVT s/p pradaxa - arthritis Oncology History: Stage 4 hormone refractory prostate adenocarcinoma, 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 - First diagnosed with prostate cancer 15 years ago - Received external beam radiation (no brachytherapy because prostate was too large) - On Lupro IM (leuprolide, LHRH agonist) - In temporary remission until the past 5 years when pt's PSA rises - Switch to Xtandi (enzalutamide, non-steroidal antiandrogen) - Pt cannot tolerate: SOB, CHF, "feel sick in general" - Switch to Casodex (bicalutamide) - Pt cannot tolerate: SOB, CHF, "feel sick" - Switch to Zytiga (abiraterone) + prednisone - Pt cannot tolerate: recurrent hemauria, CHF, hepatotox - Now, signs of disease progression despite on Zytiga, which precludes adrenal/paracrine androgen synthesis inhibitor (ketoconazole) - Now off Zytiga - Bone scan (04/27/17): New osseous met to axial skeleton at thoracolumbar spine, pelvis, proximal femors - CT scan (03/18/17): Stable retrocrural and retroperitoneal lymphadenopathy - Retroperitoneal lympm node Bx (07/2016): AE1-AE3 (+), PSA (+), PSAP (+) human prostatic acid phosphatase LDH 769 (04/26/17) Uric acid 6.3 (normal, 04/25/17) PSA total 232 (04/26/17) %Free PSA > 17 (04/26/17) Testosterone serum ? sex hormone binding globulin (SHBG) ? Free angroden index ? PSH - cystoscopy x3 weeks ago - port-a-cath placmeent 04/28/17 - CABG - ICD placement SH: Non smoker, no alcohol or drug use. Live independently. 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 Meds: PITO PMD: Outpatient cardiology: Dr. Chavarria Urologist: Dr. ruff/[employer] Supervisor: Dr. Lozano Past Patient History - Infectious Disease Hx of Infectious Diseases: None - Tetanus Immunizations Tetanus Immunization: Unknown - Past Medical History & Family History Past Medical History?: Yes - Past Social History Smoking Status: Unknown If Ever Smoked - CARDIAC Hx Cardiac Disorders: Yes (acs,cad, cabg) Hx Cardia Arrhythmia: Yes Hx Congestive Heart Failure: Yes Hx Hypercholesterolemia: Yes Hx Hypertension: Yes Hx Internal Defibrillator: Yes Hx Pacemaker: Yes Hx Peripheral Edema: Yes (left ankle/foot) Hx Peripheral Vascular Disease: Yes (left leg) Other/Comment: multiple angioplasties - PULMONARY Hx Respiratory Disorders: Yes (has home o2 and nebulizer machine) Hx Asthma: Yes Hx Bronchitis: Yes Hx Chronic Obstructive Pulmonary Disease (COPD): Yes Other/Comment: chronic productive cough - NEUROLOGICAL Hx Neurological Disorder: No - HEENT Hx HEENT Problems: Yes ([place]) Hx Cataracts: Yes (WITH b/t SURGERY) Hx Glaucoma: Yes - RENAL Hx Renal Failure: Yes Other/Comment: has 2 way schroeder, neurogenic bladder - ENDOCRINE/METABOLIC Hx Diabetes Mellitus Type 2: Yes - HEMATOLOGICAL/ONCOLOGICAL Hx Blood Disorders: Yes Hx Anemia: Yes (in past with blood transfusion) 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) Other/Comment: pt dx in 2001 had radiation trreatments, dx again in 2016 was taking po chemo, stopped due to recommendation by dr Carballo as per pt due to pt taking amidorone for 25 yrs was not compatable - INTEGUMENTARY Other/Comment: multiple skin discolorations and tatoos both arms, multiple brown skin discolorations ble - MUSCULOSKELETAL/RHEUMATOLOGICAL Hx Arthritis: Yes Hx Falls: No Hx Osteoarthritis: Yes Hx Unsteady Gait: Yes (uses rollator when out/in house nothing) Other/Comment: chronic pelvic pain due to prostate ca - GASTROINTESTINAL Hx Gastrointestinal Disorders: No - GENITOURINARY/GYNECOLOGICAL Hx Hematuria: Yes Hx Urinary Tract Infection: Yes Other/Comment: 2w schroeder from home was changed 2 weeks ago - PSYCHIATRIC Hx Psychophysiologic Disorder: No Hx Emotional Abuse: No Hx Physical Abuse: No Hx Substance Use: No - SURGICAL HISTORY Hx Surgeries: (rcw pac [address] daren pena) Hx Coronary Stent: Yes (x4 2001) Hx Open Heart Surgery: Yes (int pacemaker/defibrillator) Other/Comment: cardiac stents, 4 quadruple bypass in the past 3 years, indwelling schroeder catheter placement. cystoscopy x3 weeks ago, left shoulder cyst removed 1988 - ANESTHESIA Hx Anesthesia Reactions: No Hx Malignant Hyperthermia: No Meds Allergies/Adverse Reactions: Allergies Allergy/AdvReac Type Severity Reaction Status Date / Time Iodinated Contrast- Oral and Allergy ANAPHYLAXIS Verified 05/09/17 04:56 IV Dye levofloxacin [From Levaquin] Allergy ANAPHYLAXIS Verified 05/09/17 04:56 - Medications Medications: Current Medications Albuterol Sulfate (Albuterol 0.083% Inhal Raissa (2.5 Mg/3 Ml) Ud) 2.5 mg IH QID [facility] Last Admin: 05/10/17 11:27 Dose: 2.5 mg Amiodarone HCl (Cordarone) 200 mg PO DAILY [facility] Last Admin: 05/10/17 09:46 Dose: Not Given Atorvastatin Calcium (Lipitor) 10 mg PO DIN [facility] Last Admin: 05/09/17 16:29 Dose: 10 mg Calcium Acetate (Phoslo) 667 mg PO DAILY [facility] Last Admin: 05/10/17 09:36 Dose: 667 mg Digoxin (Lanoxin) 0.125 mg PO 1400 [facility] Last Admin: 05/09/17 16:26 Dose: 0.125 mg Doxercalciferol (Hectorol) 0.5 mcg PO DAILY [facility] Last Admin: 05/10/17 09:36 Dose: 0.5 mcg Furosemide (Lasix) 40 mg PO BID [facility] Last Admin: 05/10/17 09:41 Dose: Not Given Sodium Chloride (Sodium Chloride 0.9%) 1,000 mls @ 50 mls/hr IV .Q20H [facility] Levothyroxine Sodium (Synthroid) 100 mcg PO DAILY [facility] Last Admin: 05/10/17 09:36 Dose: 100 mcg Montelukast Sodium (Singulair) 10 mg PO DAILY [facility] Last Admin: 05/10/17 09:36 Dose: 10 mg Tranexamic Acid [ Tranexamic Acid] ( Home Med) 2 tab PO BID [facility] Last Admin: 05/10/17 09:41 Dose: Not Given Pantoprazole Sodium (Protonix Ec Tab) 40 mg PO DAILY [facility] Last Admin: 05/10/17 09:36 Dose: 40 mg Polyethylene Glycol (Miralax) 17 gm PO DAILY [facility] Last Admin: 05/10/17 09:36 Dose: 17 gm Prednisone (Prednisone Tab) 10 mg PO DAILY [facility] Last Admin: 05/10/17 09:36 Dose: 10 mg Physical Exam - Constitutional Appears: No Acute Distress - Head Exam Head Exam: ATRAUMATIC, NORMAL INSPECTION, NORMOCEPHALIC - Eye Exam Eye Exam: EOMI, Normal appearance, PERRL. absent: Scleral icterus Pupil Exam: NORMAL ACCOMODATION - ENT Exam ENT Exam: Mucous Membranes Moist - Neck Exam Neck exam: Negative for: Lymphadenopathy - Respiratory Exam Respiratory Exam: Clear to Auscultation Bilateral. absent: Rales, Rhonchi, Wheezes - Cardiovascular Exam Cardiovascular Exam: REGULAR RHYTHM, +S1, +S2 - GI/Abdominal Exam GI & Abdominal Exam: Soft, Tenderness (LLQ, RLQ on light palpation, which was chronic.). absent: Distended, Firm, Guarding - Extremities Exam Extremities exam: Positive for: calf tenderness (b/l), pedal edema, pedal pulses present Additional comments: red urine - Psychiatric Exam Psychiatric exam: Normal Affect, Normal Mood - Skin Skin Exam: Dry, Warm Results - Vital Signs Recent Vital Signs: Last Vital Signs Temp 98.1 F 05/10/17 11:12 Pulse 60 05/10/17 11:12 Resp 20 05/10/17 11:12 BP 146/70 05/10/17 11:12 Pulse Ox 100 05/10/17 07:30 - Labs Result Diagrams: 05/10/17 06:55 05/10/17 06:55 Assessment & Plan - Assessment and Plan (Free Text) Plan: 87 year old male with extensive medical history, 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 Pt was unsuccessful with LHRH agonist ( lupron), first generation antiandrogen (casodex), second generation antiandrogen (xtandi), and androgen biosynthesis inhibitor (Zytiga w/ prednisone ). PSA remains high. 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 (Non-inferiority result per NCCN guideline) - goal testosterone < 50 - Pending Testosterone serum, sex hormone binding globulin (SHBG), Free angroden index LDH 769 (04/26/17) Uric acid 6.3 (normal, 04/25/17) PSA total 232 (04/26/17) %Free PSA > 17 (04/26/17) Persistent gross hemauria - CBI - Transexamic acid 650mg 2 tablets BID - Monitor H/H - s/p 2 u PRBC - Hb 9.2. Patient's baseline is between 10 and 11 - He is actively bleeding and is a heart patient. s/r/d/w Dr. Carballo - Date & Time Date: 05/10/17 Time: 13:58 <Rogelio Carballo P - Last Filed: 05/14/17 12:22> Results - Vital Signs Recent Vital Signs: Last Vital Signs Temp 98.3 F 05/12/17 07:30 Pulse 63 05/12/17 10:31 Resp 22 05/12/17 07:30 BP 132/64 05/12/17 10:31 Pulse Ox 98 05/12/17 07:30 - Labs Result Diagrams: 05/12/17 06:30 05/12/17 06:30
--- NOTE | 2017-05-10 13:31 | PN ---
SUBJECTIVE: The patient is an 87-year-old white male. The patient was seen in the emergency room yesterday and admitted. He had hematuria. The patient also has some cough and shortness of breath. His past history is significant in that he had congestive cardiomyopathy, chronic obstructive lung disease, diabetes mellitus, hypothyroidism, osteoarthritis, history of recurrent bleeding, and indwelling Avendano catheter. The patient's home medications consist of prednisone 10 m daily. The patient is on tranexamic acid 2 tablets b.i.d., pantoprazole 40 mg daily, montelukast which is Singulair 10 mg daily, Synthroid 100 mcg daily, and insulin coverage 3-4 times a day with the meals. The patient gets Lasix 40 mg b.i.d., Rocalcitrol which is vitamin D 0.5 mcg daily. The patient is on Digoxin 125 mcg daily, calcium acetate 667 mg daily, and Lipitor, the patient is on 10 mg daily, and amiodarone 200 mg daily. The patient is on albuterol inhalation therapy. The patient is on a heart healthy diet, diabetic. PHYSICAL EXAMINATION: GENERAL: The patient's color appears to be pink, pale. VITAL SIGNS: This morning, the pulse is 61, blood pressure is 140/60, and respirations are 18. HEENT: Head is normocephalic. NECK: Thyroid is not enlarged. No JVP elevation. HEART: Normal sinus rhythm, S1 and S2 present. The patient has a cardiac pacemaker. LUNGS: Trachea is central. Rhonchi heard bilaterally. Crepitation scattered in both bases. ABDOMEN: Soft. The patient has some diffuse tenderness. No localizing signs. CENTRAL NERVOUS SYSTEM: No focal deficits are noted. LABORATORY DATA: Show that hemoglobin is 9.5 and his platelet count is 89,000. The patient had 1 unit of RBCs yesterday. His hemoglobin was 9.2 and has increased to 9.5. The patient continues to bleed in his Avendano catheter. We will give him the second unit of blood today and he is expected to be seen by the urologist today and also the patient will have irrigation placed in the Avendano catheter to cleanse the clots in the bladder. PROGNOSIS: Guarded. CONDITION: Unstable at this time. He is to continue current antibiotics. Giselle Polk MD [facility] # [id number] [place]
[2017-05-10] MEDS: Digoxin 125 mcg (0.125 mg) Tab PO SCH (14:04)
--- NOTE | 2017-05-10 15:45 | PN ---
DATE: 05/10/2017 REASON FOR THE CONSULTATION: Cardiac evaluation, history of CAD, history of CABG, history of AICD, and cardiomyopathy. SUBJECTIVE: The patient is lying flat, having Port-A-Cath access now. Denies chest pain, shortness of breath, any palpitation. OBJECTIVE: GENERAL: Lying flat. VITAL SIGNS: Temperature afebrile, heart rate 60, blood pressure 146/70. HEENT: PERRLA, intact. NECK: Supple. No carotid bruits. No thyromegaly. CHEST: Clear to auscultation. HEART: S1 and S2 regular. ABDOMEN: Soft. EXTREMITIES: Clubbing and cyanosis negative. LABORATORY DATA: WBC 9.3, hemoglobin 9.5, hematocrit 29.6, platelet count 189. Chemistry shows sodium 140, potassium 4.0, chloride 102, carbon dioxide 32, anion gap of 11, BUN 36, creatinine 1.2. IMPRESSION: An 87-year-old female with a past history significant for coronary artery disease pre and post coronary artery bypass graft PTC status post defibrillator generator change, history of prostate CA, indwelling Avendano catheter, admitted with hematuria packed RBC blood transfusion, currently yesterday and they are planning to give her more blood, today as hemoglobin is 9.5. RECOMMENDATION: We will give Lasix 40 post-transfusion, followup CBC in the morning. Thank you Dr. Perez providing this opportunity in taking care of patient. Mely Chavarria MD cc: Alka Perez PA-C
--- NOTE | 2017-05-10 17:58 | US ---
HISTORY: Leg pain and swelling. Evaluate for DVT PHYSICIAN(S): Sixto Allen MD. TECHNIQUE: Duplex sonography and color-flow Doppler with graded compression were used to evaluate the deep venous systems of both lower extremities. The exam is limited by edema and the patient's inability to cooperate. The tibial veins were not adequately seen. FINDINGS: The visualized deep venous systems of both lower extremities are sonographically normal and compressible. Normal wave forms and augmentation are seen. There is no sonographic evidence for deep venous thrombosis in the visualized segments of both lower extremities. IMPRESSION: No sonographic evidence for deep venous thrombosis in the visualized segments of both lower extremities. Limited study.
--- NOTE | 2017-05-10 18:18 | PN ---
DATE: 05/10/2017 SUBJECTIVE: The patient is seen sitting in chair. He is awake. He is alert. He reports that he has gross hematuria, blood clots in the back, he complaints of spasms in the lower abdomen. He is still coughing. PHYSICAL EXAMINATION: GENERAL: An elderly man, sitting in chair. VITAL SIGNS: Blood pressure 158/70, heart rate 60, respiratory rate 18, temperature 98. HEENT: Normocephalic, atraumatic. NECK: Supple. No JVD. LUNGS: Bilateral equal air entry; bilateral equal expansion, no rales, no rhonchi. CARDIAC: S1, S2, regular rate and rhythm. Positive murmur. No rubs. ABDOMEN: Soft, nondistended, nontender. Bowel sounds present. EXTREMITIES: No lower extremity edema. INTAKE AND OUTPUT: 855/2400. LABORATORY DATA: WBC 9.3, hemoglobin 9.5, hematocrit 29.6 and platelets 189. Sodium 140, potassium 4.1, chloride 102, CO2 of 31, BUN 36, creatinine 1.2, glucose 77, calcium 7.6. Urinalysis straw clear, pH 6.0, specific gravity 1.010. Protein negative, blood large, leukocyte esterase small. RBC is 2 to 5. WBC is 1 to 3. CURRENT MEDICATIONS: Albuterol, Cordarone, Hectorol, Lanoxin, Lasix 40 b.i.d., Lipitor, Miralax, PhosLo, prednisone, Protonix, Singulair, normal saline at 50, Synthroid, tranexamic acid. ASSESSMENT 1. Gross hematuria, bladder tumor, recent cystoscopy. 2. Acute kidney injury. superimposed on chronic kidney disease stage IV. 3. Recent Klebsiella urinary tract infection. 4. Noninsulin-dependent diabetes mellitus. 5. Hypertension. 6. Atherosclerotic heart disease, atrial fibrillation, valvular heart disease. 7. History of deep vein thrombosis. PLAN: 1. Continue low dose IV fluids. 2. The patient is status post 2 units of PRBC with hemoglobin is stable. 3. Awake urological evaluation/recommendation. 4. Continue current management. Marianne Lozano MD [facility] # [id number]
[2017-05-10] MEDS ORDERED: Insulin Regular 1 UNITS/0.01 ML ML SC ONE (22:09)
--- NOTE | 2017-05-10 23:32 | CP.PCM.PN ---
Subjective - Date & Time of Evaluation Date of Evaluation: 05/10/17 Time of Evaluation: 23:29 - Subjective Subjective: S:Patient was seen at bedside .His blood glucose was 448 mg %. Has no symptoms now. States that he did not have his insulin in the morning because his FSBS was 65 mg %. Denies blurry vision, neuropathy, increased urine frequency. ROS : Negative except as mentioned above. Medical record was reviewed. O: Last Vital Signs 3 Temp 98.2 F 05/10/17 16:30 Pulse 60 05/10/17 16:30 Resp 18 05/10/17 16:30 BP 149/60 05/10/17 16:30 Pulse Ox 98 05/10/17 16:30 Awake, alert, not in distress. LUNGS: Normal breathing pattern. A:Hyperglycemia. P:10 Units regular insulin SC. Give 15 units 70/30 as scheduled. After above, his finger stick blood glucose was 79 mg % at 2 AM. Objective - Vital Signs/Intake and Output Vital Signs (last 24 hours): Temp Pulse Resp BP Pulse Ox 98.2 F 60 18 149/60 98 05/10/17 16:30 05/10/17 16:30 05/10/17 16:30 05/10/17 16:30 05/10/17 16:30 Intake and Output: 05/10/17 05/11/17 18:59 06:59 Intake Total 855 600 Output Total 5200 4000 Balance -4345 -3400 - Medications Medications: Current Medications Albuterol Sulfate (Albuterol 0.083% Inhal Raissa (2.5 Mg/3 Ml) Ud) 2.5 mg IH QID [facility] Last Admin: 05/10/17 19:13 Dose: 2.5 mg Amiodarone HCl (Cordarone) 200 mg PO DAILY [facility] Last Admin: 05/10/17 09:46 Dose: Not Given Atorvastatin Calcium (Lipitor) 10 mg PO DIN [facility] Last Admin: 05/10/17 17:07 Dose: 10 mg Calcium Acetate (Phoslo) 667 mg PO DAILY [facility] Last Admin: 05/10/17 09:36 Dose: 667 mg Digoxin (Lanoxin) 0.125 mg PO 1400 [facility] Last Admin: 05/10/17 14:04 Dose: 0.125 mg Doxercalciferol (Hectorol) 0.5 mcg PO DAILY [facility] Last Admin: 05/10/17 09:36 Dose: 0.5 mcg Furosemide (Lasix) 40 mg PO BID [facility] Last Admin: 05/10/17 17:08 Dose: Not Given Sodium Chloride (Sodium Chloride 0.9%) 1,000 mls @ 50 mls/hr IV .Q20H [facility] Levothyroxine Sodium (Synthroid) 100 mcg PO DAILY [facility] Last Admin: 05/10/17 09:36 Dose: 100 mcg Montelukast Sodium (Singulair) 10 mg PO DAILY [facility] Last Admin: 05/10/17 09:36 Dose: 10 mg Tranexamic Acid 650 (Mg) 2 tab PO BID [facility] Last Admin: 05/10/17 17:07 Dose: 2 tab Pantoprazole Sodium (Protonix Ec Tab) 40 mg PO DAILY [facility] Last Admin: 05/10/17 09:36 Dose: 40 mg Polyethylene Glycol (Miralax) 17 gm PO DAILY [facility] Last Admin: 05/10/17 09:36 Dose: 17 gm Prednisone (Prednisone Tab) 10 mg PO DAILY [facility] Last Admin: 05/10/17 09:36 Dose: 10 mg
[2017-05-11] MEDS ORDERED: HYDROmorphone 2 mg/ml ISec IVP PRN ×2 (06:31→08:07)
[2017-05-11] MEDS: Albuterol 0.083% Inhal Sol (2.5 mg/3 mL) UD IH SCH ×3 (07:17→20:59)
--- NOTE | 2017-05-11 07:27 | CP.PCM.PN ---
<Devora Alvarado - Last Filed: 05/12/17 15:54> Subjective - Date & Time of Evaluation Date of Evaluation: 05/11/17 Time of Evaluation: 07:24 - Subjective Subjective: PGY-[address] Carballo Continue CBI, no clot visible No Dizziness, CP, palpitation 10/10 Bladder spasm persists but markedly increase in frequency 10/10 Back pain increases requiring dilaudid Upgrades laxative regimen Small amount BM yesterday, hard in consistency, x 2 Pt complaint of feeling sick. Added zofran Objective - Vital Signs/Intake and Output Vital Signs (last 24 hours): Temp Pulse Resp BP Pulse Ox 98.2 F 60 18 149/60 98 05/10/17 16:30 05/10/17 16:30 05/10/17 16:30 05/10/17 16:30 05/10/17 16:30 Intake and Output: 05/11/17 05/11/17 06:59 18:59 Intake Total 50165 Output Total 70100 Balance -2675 - Medications Medications: Current Medications Albuterol Sulfate (Albuterol 0.083% Inhal Raissa (2.5 Mg/3 Ml) Ud) 2.5 mg IH QID [facility] Last Admin: 05/11/17 07:17 Dose: 2.5 mg Amiodarone HCl (Cordarone) 200 mg PO DAILY [facility] Last Admin: 05/10/17 09:46 Dose: Not Given Atorvastatin Calcium (Lipitor) 10 mg PO DIN [facility] Last Admin: 05/10/17 17:07 Dose: 10 mg Calcium Acetate (Phoslo) 667 mg PO DAILY [facility] Last Admin: 05/10/17 09:36 Dose: 667 mg Digoxin (Lanoxin) 0.125 mg PO 1400 [facility] Last Admin: 05/10/17 14:04 Dose: 0.125 mg Doxercalciferol (Hectorol) 0.5 mcg PO DAILY [facility] Last Admin: 05/10/17 09:36 Dose: 0.5 mcg Furosemide (Lasix) 40 mg PO BID [facility] Last Admin: 05/10/17 17:08 Dose: Not Given Hydromorphone HCl (Dilaudid) 2 mg IVP Q4H PRN PRN Reason: Pain, moderate (4-7) Sodium Chloride (Sodium Chloride 0.9%) 1,000 mls @ 50 mls/hr IV .Q20H [facility] Levothyroxine Sodium (Synthroid) 100 mcg PO DAILY [facility] Last Admin: 05/10/17 09:36 Dose: 100 mcg Montelukast Sodium (Singulair) 10 mg PO DAILY [facility] Last Admin: 05/10/17 09:36 Dose: 10 mg Tranexamic Acid 650 (Mg) 2 tab PO BID [facility] Last Admin: 05/10/17 17:07 Dose: 2 tab Pantoprazole Sodium (Protonix Ec Tab) 40 mg PO DAILY [facility] Last Admin: 05/10/17 09:36 Dose: 40 mg Polyethylene Glycol (Miralax) 17 gm PO DAILY [facility] Last Admin: 05/10/17 09:36 Dose: 17 gm Prednisone (Prednisone Tab) 10 mg PO DAILY [facility] Last Admin: 05/10/17 09:36 Dose: 10 mg - Constitutional Appears: No Acute Distress - Head Exam Head Exam: ATRAUMATIC, NORMAL INSPECTION, NORMOCEPHALIC - Eye Exam Eye Exam: EOMI, Normal appearance, PERRL. absent: Scleral icterus Pupil Exam: NORMAL ACCOMODATION - ENT Exam ENT Exam: Mucous Membranes Moist - Respiratory Exam Respiratory Exam: Clear to Ausculation Bilateral. absent: Rales, Rhonchi, Wheezes - Cardiovascular Exam Cardiovascular Exam: REGULAR RHYTHM, +S1, +S2 - GI/Abdominal Exam GI & Abdominal Exam: Soft, Tenderness (LLQ, RLQ, chronic), Normal Bowel Sounds - Extremities Exam Extremities Exam: Calf Tenderness, Pedal Edema Additional comments: CBI with pink urine, no clot - Back Exam Back Exam: absent: CVA tenderness (L), CVA tenderness (R) - Neurological Exam Neurological Exam: Alert, Awake, Oriented x3 - Psychiatric Exam Psychiatric exam: Normal Affect, Normal Mood - Skin Skin Exam: Dry, Warm Assessment and Plan - Assessment and Plan (Free Text) Plan: 87 year old male with extensive medical history, 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 Pt was unsuccessful with LHRH agonist ( lupron), first generation antiandrogen (casodex), second generation antiandrogen (xtandi), and androgen biosynthesis inhibitor (Zytiga w/ prednisone ). PSA remains high. Testosterone was high in January 2017 (122.7) Intractable pain in bladder spasm and lower back - no radiation, no bowel incontinent, no saddle anesthesia - dilaudid 1q4PRN, 2q4 PRN - Miralax and coloace BID - bedside bladder scan Stage 4 castration resistant prostate adenocarcinoma mets to TL spine - continue prednisone - Per Dr. Carballo, he will restart pt on Zytiga, once daily. Asked pt to bring pill from home to start during this hospital stay. His previous complaint on Zytiga was abdominal pain. As for ZOEY, not suitable for pt due to water retention effect. May consider eventually adding lupron to zytiga. - Since patient cannot tolerate continuous androgen deprivation therapy (ADT), consider intermittent ADT x 3 month. (Non-inferiority result per NCCN guideline) - goal testosterone < 50 - Pending Testosterone serum, sex hormone binding globulin (SHBG), Free angroden index LDH 769 (04/26/17) Uric acid 6.3 (normal, 04/25/17) PSA total 232 (04/26/17) %Free PSA > 17 (04/26/17) Persistent gross hemauria - CBI - Transexamic acid 650mg 2 tablets BID - Monitor H/H - s/p 2 u PRBC - Hb 9.9 (9.2). Patient's baseline is between 10 and 11 - He is actively bleeding and is a heart patient. 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 Carballo in 1 week after discharge to monitor Zytiag/ prednisone regimen and possibly adding bone mets regimen - Follow up with Dr. Louise in 1 week for schroeder management. s/r/d/w Dr. Carballo <Rogelio Carballo P - Last Filed: 05/14/17 12:10> Objective - Vital Signs/Intake and Output Vital Signs (last 24 hours): Temp Pulse Resp BP Pulse Ox 98.3 F 63 22 132/64 98 05/12/17 07:30 05/12/17 10:31 05/12/17 07:30 05/12/17 10:31 05/12/17 07:30 - Labs Labs: 05/12/17 06:30 05/12/17 06:30 Attending/Attestation - Attestation I have personally seen and examined this patient.: Yes I have fully participated in the care of the patient.: Yes I have reviewed all pertinent clinical information, including history, physical exam and plan: Yes
[2017-05-11] MEDS: Insulin Human NPH/Reg 70/30 Vial(3 ml) SC SCH ×4 (07:28→21:56)
[2017-05-11 08:06] LABS: ADD MANUAL DIFF? NO
[2017-05-11] MEDS ORDERED: HYDROmorphone 1 mg/ml ISec IVP PRN (08:06)
[2017-05-11 08:07] LABS: BASO # 0.02 K/mm3 (0.0-2.0); BASO % 0.2 % (0.0-3.0); EOS # 0.1 (0.0-0.7); EOS % 1.2 % (1.5-5.0); GRAN # 7.52 (1.4-6.5); HEMATOCRIT 30.6 % (42.0-52.0); LYMPH # 1.3 (1.2-3.4); LYMPH % 12.9 % (22.0-35.0); MEAN CELL VOLUME 84.8 fL (80.0-105.0); MEAN CORPUSCULAR HEMOGLOBIN 27.4 pg (25.0-35.0); MEAN CORPUSCULAR HGB CONC 32.4 g/dl (31.0-37.0); MEAN PLATELET VOLUME 9.5 fl (7.0-11.0); MONO % 9.7 % (1.0-6.0); PLATELET COUNT 173 10^3/uL (120.0-450.0); WHITE BLOOD COUNT 9.9 10^3/ul (4.5-11.0)
--- NOTE | 2017-05-11 08:20 | CP.PCM.PN ---
Subjective - Date & Time of Evaluation Date of Evaluation: 05/11/17 Time of Evaluation: 07:50 - Subjective Subjective: Patient complaining of abdominal spasms and pain. continues to have hematuria. Objective - Vital Signs/Intake and Output Vital Signs (last 24 hours): Temp Pulse Resp BP Pulse Ox 97.7 F 61 21 150/71 97 05/11/17 07:30 05/11/17 07:30 05/11/17 07:30 05/11/17 07:30 05/11/17 07:30 Intake and Output: 05/11/17 05/11/17 06:59 18:59 Intake Total 82346 Output Total 67325 Balance -2675 - Medications Medications: Current Medications Albuterol Sulfate (Albuterol 0.083% Inhal Raissa (2.5 Mg/3 Ml) Ud) 2.5 mg IH QID [facility] Last Admin: 05/11/17 07:17 Dose: 2.5 mg Amiodarone HCl (Cordarone) 200 mg PO DAILY [facility] Last Admin: 05/10/17 09:46 Dose: Not Given Atorvastatin Calcium (Lipitor) 10 mg PO DIN [facility] Last Admin: 05/10/17 17:07 Dose: 10 mg Calcium Acetate (Phoslo) 667 mg PO DAILY [facility] Last Admin: 05/10/17 09:36 Dose: 667 mg Digoxin (Lanoxin) 0.125 mg PO 1400 [facility] Last Admin: 05/10/17 14:04 Dose: 0.125 mg Docusate Sodium (Colace) 100 mg PO BID [facility] Doxercalciferol (Hectorol) 0.5 mcg PO DAILY [facility] Last Admin: 05/10/17 09:36 Dose: 0.5 mcg Furosemide (Lasix) 40 mg PO BID [facility] Last Admin: 05/10/17 17:08 Dose: Not Given Hydromorphone HCl (Dilaudid) 1 mg IVP Q4H PRN PRN Reason: Pain, moderate (4-7) Hydromorphone HCl (Dilaudid) 2 mg IVP Q4H PRN PRN Reason: Pain, severe (8-10) Sodium Chloride (Sodium Chloride 0.9%) 1,000 mls @ 50 mls/hr IV .Q20H [facility] Levothyroxine Sodium (Synthroid) 100 mcg PO DAILY [facility] Last Admin: 05/10/17 09:36 Dose: 100 mcg Montelukast Sodium (Singulair) 10 mg PO DAILY [facility] Last Admin: 05/10/17 09:36 Dose: 10 mg Tranexamic Acid 650 (Mg) 2 tab PO BID [facility] Last Admin: 05/10/17 17:07 Dose: 2 tab Ondansetron HCl (Zofran Inj) 4 mg IVP Q4H PRN PRN Reason: Nausea/Vomiting Pantoprazole Sodium (Protonix Ec Tab) 40 mg PO DAILY [facility] Last Admin: 05/10/17 09:36 Dose: 40 mg Polyethylene Glycol (Miralax) 17 gm PO BID [facility] Prednisone (Prednisone Tab) 10 mg PO DAILY [facility] Last Admin: 05/10/17 09:36 Dose: 10 mg - Labs Labs: 05/11/17 07:30 - Constitutional Appears: No Acute Distress - Head Exam Head Exam: ATRAUMATIC, NORMOCEPHALIC - Respiratory Exam Respiratory Exam: Clear to Ausculation Bilateral, NORMAL BREATHING PATTERN - Cardiovascular Exam Cardiovascular Exam: +S1, +S2 - GI/Abdominal Exam GI & Abdominal Exam: Soft, Tenderness - Neurological Exam Neurological Exam: Alert, Awake, Oriented x3 Assessment and Plan - Assessment and Plan (Free Text) Assessment: Hematuria Anemia with active bleeding Metastatic prostate cancer Chronic systolic and diastolic heart failure COPD Hypothyroidism DMII Arthritis Plan: continue bladder irrigation for hematuria. awaiting urology evaluation hemoglobin is 9.9 today after 2 units of PRBCs. continue to monitor hemoglobin Dialudid IV as needed for abdominal pain patient is on Tranxemic acid for hematuria as per oncology
[2017-05-11 08:23] LABS: ALB/GLOB RATIO 1.3 (1.1-1.8); ALKALINE PHOSPHATASE 88 U/L (38-133); ALT/SGPT 77 U/L (7-56); AST/SGOT 44 U/L (15-59); BILIRUBIN,TOTAL 0.5 mg/dL (0.2-1.3); BLOOD UREA NITROGEN 26 mg/dL (7-21); CALCIUM 8.3 mg/dL (8.4-10.5); CARBON DIOXIDE 30 mmol/L (21-33); CHLORIDE 101 mmol/L (98-107); GFR AFRICAN-AMERICAN > 60; GLUCOSE,RANDOM 112 mg/dL (70-110); PHOSPHOROUS 2.9 mg/dL (2.5-4.5); POTASSIUM 3.9 mmol/L (3.6-5.0); SODIUM 137 mmol/L (132-148); TOTAL PROTEIN 5.5 g/dL (5.8-8.3)
--- NOTE | 2017-05-11 08:25 | PN ---
DATE: 05/11/2017 PULMONARY NOTE SUBJECTIVE: The patient appears comfortable at rest. He is not short of breath. PHYSICAL EXAMINATION: VITAL SIGNS: Temperature is 98.2, pulse 60, respirations 18, blood pressure 149/60. Oxygen saturation on room air is 98%. HEENT: Normocephalic and atraumatic. NECK: No JVD. CARDIOVASCULAR: Systolic ejection murmur at the low left sternal border. No S3 gallop. LUNGS: Decreased breath sounds at the bases. Minimal/less rhonchi. No wheezing. EXTREMITIES: Positive for edema. No cyanosis or clubbing. The calves are nontender to palpation. GASTROINTESTINAL: Abdomen is soft, nontender, nondistended. Bowel sounds are positive. SKIN: No acute rash. NEUROLOGIC: Limited at the present time. IMPRESSION: 1. Advanced prostate cancer. 2. Recurrent hematuria. 3. Chronic obstructive pulmonary disease. 4. Coronary artery disease. 5. Chronic renal disease. 6. Chronic anemia. PLAN: The patient appears comfortable this morning. He is not short of breath at rest. He remains with some bladder spasms. He does state he is feeling better overall. On physical exam, there is only minimal bronchospasm noted. In addition, the oxygen saturation on room air is now 98%. I will continue with the current nebulizer treatments and low-dose oral steroids for now. Renal and Cardiology evaluations are noted. We are awaiting a Genitourinary consultation. Clinical status of the patient has improved - compared to the initial presentation. However, again, the overall status/prognosis for this patient does remain very guarded. All are aware. I will discuss the above with the attending physician. Kwadwo Arias MD [place]
--- NOTE | 2017-05-11 11:21 | PQF ANEMIA ---
This form is a permanent part of the medical record Dr. Marcus, Chart reflects patient has anemia from active bleeding from hematuria (PN 05/11) . Transfused with 2 UPRBC. Please specify type and severity of anemia, acute or chronic blood loss. Clarification of your documentation is requested to better reflect the severity of illness and intensity of treatment of your patient. Indicators present [x] Anemia [] Drop in H&H from []___ to []___ [] Hypotension [] GI Bleed [x] Transfusion(s) [] Acute bleed other sites [] Tachycardia [] Surgical Procedure Blood Loss (expected not a complication) Other:[] Location in the medical record that reflects the above clinical findings: [] Treatment Provided: [] PHYSICIAN'S RESPONSE Based on your medical judgment of the clinical indicators outlined above, are you treating this patient for a known or suspected: [x] Acute blood loss anemia [] Chronic blood loss anemia [] Acute on Chronic blood loss anemia [] Anemia due to malignancy [] Anemia due to chemotherapy or radiation therapy [x] Anemia of Chronic Disease, please specify: [patient has acute blood loss anemia superimposed on anemia of chronic disease secondary to chronic kidney disease [] Other, please indicate type of anemia []____ [] If Unable to Determine, please check the box, sign and date. Present On Admission (POA) Indicator: [x] Present at the time of admission [] Not present at the time of admission [] Clinically Undetermined In responding to this query, please exercise your independent professional judgment. The fact that a question is asked does not imply that any particular answer is desired or expected. Thank you for your clarification on this documentation. If you have any questions please call:[ ] * Thank you, [ ]Kal Singletray [facility] #[id number] entry level software developer [place]
--- NOTE | 2017-05-11 11:27 | PN ---
DATE: 05/11/2017 SUBJECTIVE: The patient is seen lying in bed. He is awake. He is alert. He reports that he has a very bad night. He is complaining of orthopnea, cough. He is also complaining of low back pain, lower abdominal pain. PHYSICAL EXAMINATION: GENERAL: An elderly male, lying in bed. VITAL SIGNS: Blood pressure 150/71, heart rate 61, respiratory rate 21, temperature 97.7. HEENT: Normocephalic, atraumatic; positive . NECK: Supple. No JVD. LUNGS: Bilateral rhonchi, basal rales. CARDIAC: S1 and S2, regular rate and rhythm; positive murmur; no rub. ABDOMEN: Soft, nondistended, positive tenderness in the lower abdomen. Bowel sounds are present. EXTREMITIES: 2+ pitting edema of the lower extremities. INTAKE AND OUTPUT: 6000/5500? LABORATORY DATA: WBC 9.9, hemoglobin 9.9, hematocrit 30.6, and platelets 173. Sodium 137, potassium 3.9, chloride 101, CO2 of 30, BUN 26, creatinine 1.0, glucose 112, calcium 8.3, phosphorus 2.9, magnesium 2.0, albumin 3.0, corrected calcium is 9. Urine culture, no growth so far. CURRENT MEDICATIONS: DuoNeb, Colace, Cordarone, Dilaudid, Hectorol, furosemide, Lipitor, Miralax, PhosLo, prednisone, Protonix, Singulair, Synthroid, tranexamic acid, and Zofran. ASSESSMENT: 1. Resolved acute kidney injury. 2. Underlying chronic kidney disease, stage III/IV. 3. Recurrent hematuria, bladder cancer. 4. Chronic anemia. 5. Congestive heart failure, volume overload. 6. Compensated hyperphosphatemia. PLAN: 1. Discontinue IV fluids. 2. Continue Lasix 40 b.i.d. 3. Discontinue PhosLo. 4. Urology followup. Marianne Lozano MD
[2017-05-11] MEDS: POLYETHYLENE GLYCOL 3350 17 GM/Dose PACKET PO SCH ×2 (11:28→18:36)
[2017-05-11] MEDS: Levothyroxine 100 MCG TAB PO SCH (11:35)
[2017-05-11] MEDS: Pantoprazole 40 mg EC Tab PO SCH (11:35)
[2017-05-11] MEDS: Digoxin 125 mcg (0.125 mg) Tab PO SCH (14:59)
--- NOTE | 2017-05-11 15:59 | PN ---
DATE: 05/11/2017 REASON FOR CONSULTATION: Cardiac evaluation, history of COPD, history of CABG, history of AICD, and cardiomyopathy. SUBJECTIVE: The patient is lying flat in the bed. Denies any chest pain, shortness of breath or any palpitation. OBJECTIVE: GENERAL: Lying flat, not in apparent distress. VITAL SIGNS: As follows: Temperature afebrile, heart rate 72, blood pressure 150/71. HEENT: PERRLA. Extraocular muscles intact. NECK: Supple. No carotid bruits. No thyromegaly. CHEST: Clear to auscultation. HEART: S1 and S2 regular. ABDOMEN: Soft. EXTREMITIES: Clubbing and cyanosis negative. LABORATORY DATA: Blood workup as follows: WBC 9.9, hemoglobin 9.9, hematocrit 30.6, platelet count 173. Chemistry shows sodium 137, potassium 3.9, chloride 101, carbon dioxide 30, anion gap of 10, BUN 26, creatinine 1.0. Total protein 5.5, albumin 3, albumin-globulin ratio 1.3. IMPRESSION: An 87-year-old male with a past medical history significant for coronary artery disease, status post percutaneous transluminal coronary angioplasty, status post pre and post coronary artery bypass graft percutaneous transluminal coronary angioplasty, status post coronary artery bypass graft, nonischemic myocardial infarction treated medically, chronic renal insufficiency, hematuria, prostate cancer, indwelling Avnedano catheter, paroxysmal atrial fibrillation, off anticoagulation, the patient was on Eliquis for deep venous thrombosis, but off because of hematuria, admitted with hematuria again. No active cardiac symptoms. At this time, no evidence of angina, no evidence of congestive heart failure or arrhythmia. Admitted with hematuria and indwelling Avendano catheter. RECOMMENDATION: Continue gentle diuretics. . The patient had another packed RBC, now hemoglobin is 9.9. We will give the Lasix post-transfusion. Monitor electrolytes. Continue . Continue amiodarone for paroxysmal atrial fibrillation. Continue digoxin. Continue Lasix. We will follow with you. Thank you Dr. Polk for providing me the opportunity in taking care of patient, Ziggy Amador. Mely Chavarria MD cc: Giselle Polk MD
[2017-05-11 17:30] LABS: TESTOSTERONE 8.12 ng/mL
--- NOTE | 2017-05-11 20:59 | PN ---
DATE: 05/11/2017 SUBJECTIVE: The patient's CBI is running with clear return from the bladder. No clots. He is comfortable. I retained the Avendano catheter to take any tension and traction off the penis on the catheter. If it remains clear, the CBI can be discontinued in 24 hours. Leonides Masterson MD
[2017-05-12 06:50] LABS: ADD MANUAL DIFF? NO
[2017-05-12 06:59] LABS: BASO # 0.01 K/mm3 (0.0-2.0); BASO % 0.1 % (0.0-3.0); EOS # 0.1 (0.0-0.7); EOS % 1.2 % (1.5-5.0); GRAN # 8.02 (1.4-6.5); HEMATOCRIT 31.3 % (42.0-52.0); LYMPH # 1.4 (1.2-3.4); LYMPH % 13.7 % (22.0-35.0); MEAN CELL VOLUME 85.8 fL (80.0-105.0); MEAN CORPUSCULAR HEMOGLOBIN 27.4 pg (25.0-35.0); MEAN CORPUSCULAR HGB CONC 31.9 g/dl (31.0-37.0); MEAN PLATELET VOLUME 9.3 fl (7.0-11.0); MONO # 0.8 (0.1-0.6); PLATELET COUNT 194 10^3/uL (120.0-450.0); RED CELL DISTRIBUTION WIDTH 15.1 % (11.5-14.5); WHITE BLOOD COUNT 10.4 10^3/ul (4.5-11.0)
[2017-05-12 07:17] LABS: ALB/GLOB RATIO 1.3 (1.1-1.8); ALKALINE PHOSPHATASE 95 U/L (38-133); ALT/SGPT 73 U/L (7-56); AST/SGOT 48 U/L (15-59); BILIRUBIN,TOTAL 0.5 mg/dL (0.2-1.3); BLOOD UREA NITROGEN 25 mg/dL (7-21); CALCIUM 8.5 mg/dL (8.4-10.5); CARBON DIOXIDE 30 mmol/L (21-33); CHLORIDE 97 mmol/L (95-110); GFR AFRICAN-AMERICAN > 60; GLUCOSE,RANDOM 90 mg/dL (70-110); POTASSIUM 4.1 mmol/L (3.6-5.0); SODIUM 136 mmol/L (132-148); TOTAL PROTEIN 5.4 g/dL (5.8-8.3)
[2017-05-12] MEDS: Insulin Human NPH/Reg 70/30 Vial(3 ml) SC SCH ×2 (08:30→12:30)
[2017-05-12 08:34] VITALS: RESP 22; TEMP 98.3; O2SAT 98
[2017-05-12] MEDS: Albuterol 0.083% Inhal Sol (2.5 mg/3 mL) UD IH SCH ×2 (09:00→12:00)
[2017-05-12] MEDS: POLYETHYLENE GLYCOL 3350 17 GM/Dose PACKET PO SCH (10:29)
[2017-05-12] MEDS: Levothyroxine 100 MCG TAB PO SCH (10:30)
[2017-05-12] MEDS: Pantoprazole 40 mg EC Tab PO SCH (10:30)
[2017-05-12 10:38] VITALS: BP 132/64; PULSE 63
--- NOTE | 2017-05-12 11:45 | PN ---
PULMONARY NOTE DATE: 05/12/2017 SUBJECTIVE: Patient appears comfortable this morning. He is not short of breath at rest. PHYSICAL EXAMINATION: VITAL SIGNS: Temperature 97.9, pulse 62, respirations 18, blood pressure 136/60, and oxygen saturation on room air is 96%. HEENT: Normocephalic and atraumatic. NECK: No JVD. CARDIOVASCULAR: Systolic ejection murmur at the lower left sternal border. No S3 or gallop. LUNGS: Decreased breath sounds at the bases. Minimal/less rhonchi. No wheezing. EXTREMITIES: Positive for edema. No cyanosis. No clubbing. Calves are nontender to palpation. GASTROINTESTINAL: Abdomen is soft, nontender, and nondistended. Bowel sounds are positive. SKIN: No acute rash. NEUROLOGIC: Limited at the present time. IMPRESSION: 1. Advanced prostate cancer. 2. Recurrent hematuria. 3. Chronic obstructive pulmonary disease. 4. Coronary artery disease. 5. Chronic renal disease. 6. Chronic anemia. PLAN: Patient appears comfortable this morning. He is not short of breath at rest. He has less bladder spasms. He does state he feeling better overall. On physical exam, there is only minimal bronchospasm noted. In addition, the oxygen saturation on room air is 96%. I will continue with the current nebulizer treatments and low-dose oral steroids for now. I did offer the patient inhaled steroids in addition. He refused - due to the fact he has had multiple oral thrush infections. I would continue with the cardiology and genitourinary evaluations. Inputs are noted. Clinical status of the patient is certainly improved - compared to the initial presentation. However, again, the future status/prognosis of this elderly patient - with multiple serious medical disorders - remains very guarded at best. All are aware. I will discuss the above with Dr. Polk. Kwadwo Arias MD [facility]
--- NOTE | 2017-05-12 12:23 | PN ---
DATE: SUBJECTIVE: The patient is seen in the [facility], room 565, bed 2. He was admitted with bleeding from his bladder. He had clots in the old catheter obstructing the flow of urine and retention of urine. The patient has abdominal pain. 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 The patient is seen this morning. His Avendano catheter is still draining, but is not stained with blood and he has an irrigation bag that is helping to irrigate the Avendano catheter. PHYSICAL EXAMINATION VITAL SIGNS: Pulse is 62, blood pressure 136/60, respirations are 20, O2 saturation 96% on room air. HEENT: The patient's head is normocephalic. LUNGS: Clear. HEART: Normal sinus rhythm. S1, S2 present. Cardiac pacemaker is present, is on demand. ABDOMEN: Soft. positive bowel sounds. M[employer]QL DAT[employer]ASE DEVELOPER: Within normal limits. MEDICATIONS: Remains the same. The patient is on tranexamic acid to stop the bleeding. The patient is also on all his medications for diabetes, hypertension, congestive heart failure. He had got 2 units of blood on this admission. He has had several units of blood in the last two months. ASSESSMENT AND PLAN: His overall prognosis is guarded and condition is improving. The patient will be discharged and admitted to the transitional care unit for further care. At this time, the patient will continue his status. He is isolated because of ESBL and he is not on any antibiotic at this time. Giselle Polk MD ANNABELLA
[2017-05-12 12:26] LABS: SEX HORMONE BINDING GLOB 110 nmol/L (22-77)
[2017-05-12] MEDS: Digoxin 125 mcg (0.125 mg) Tab PO SCH (13:53)
[2017-05-12 13:54] VITALS: PULSE 64
--- NOTE | 2017-05-12 14:41 | PN ---
DATE: 05/12/2017 REASON FOR CONSULTATION: Cardiac evaluation, history of COPD, history of CABG, history of AICD, cardiomyopathy, admitted with hematuria and clogging of the Avendano catheter. SUBJECTIVE: The patient denies any chest pain, shortness of breath, any palpitation, decreased abdominal pain in intensity. OBJECTIVE: Sitting on bed, had breakfast and reading [employer] Journal. PHYSICAL EXAMINATION VITAL SIGNS: Temperature afebrile, heart rate 60, blood pressure 129/61. HEENT: PERRLA. EOMs intact. NECK: Supple. No carotid bruit or thyromegaly. CHEST: Clear to auscultation. HEART: S1 and S2 regular. ABDOMEN: Soft. EXTREMITIES: Clubbing, cyanosis negative. LABORATORY DATA: Blood workup as follows: WBC 10.4, hemoglobin 10, hematocrit 31.3, platelet count 194. Chemistry shows sodium 132, potassium 4.1, chloride 91, carbon dioxide 30, anion gap of 13, BUN 25, creatinine 1.1, bilirubin 0.5, AST 48, ALT 73, alkaline phosphatase 95, total protein 5.4, albumin 3.1, albumin-globulin ratio 1.3. IMPRESSION: An 87-year-old male with a past medical history significant for status post coronary artery bypass graft, status post percutaneous transluminal coronary angioplasty and post coronary artery bypass graft, status post mitral valve regurgitation, paroxysmal atrial fibrillation, cardiomyopathy, ejection fracture recently by echo at 45%, status post automatic implantable cardioverter-defibrillator, status post recently 2 months ago automatic implantable cardioverter-defibrillator generator change, admitted with abdominal pain, recurrent hematuria, history of prostate carcinoma, clogging of the bladder, and the patient was complaining of abdominal pain. The patient is on chemo for hematuria, on tranexamic acid 2 tablets b.i.d., and can continue digoxin, continue amiodarone, history of paroxysmal atrial fibrillation. The patient is on amiodarone anticoagulation but is held because of hematuria. We will continue amiodarone, continue , continue digoxin. We will follow with you. Still the patient is having light hematuria, has pink color urine collected in the Avendano catheter. Thank you Dr. Polk taking care of the patient. Mely Chavarria MD [facility] # [id number]
--- NOTE | 2017-05-12 15:55 | CP.PCM.PN ---
<Devora Alvarado - Last Filed: 05/12/17 15:55> Subjective - Date & Time of Evaluation Date of Evaluation: 05/12/17 Time of Evaluation: 07:00 - Subjective Subjective: PGY-[address] Carballo Continue CBI, still pink, (less red) no clot visible No Dizziness, CP, palpitation 10/10 Bladder spasm persists but decrease in frequency 10/10 Back pain persist requiring dilaudid, also decrease in frquency Upgrades laxative regimen to 1 time of Scanty amount BM x 2 days, hard consistency Pt complaint of feeling sick yesterday. No more nausea today Objective - Vital Signs/Intake and Output Vital Signs (last 24 hours): Temp Pulse Resp BP Pulse Ox 98.3 F 63 22 132/64 98 05/12/17 07:30 05/12/17 10:31 05/12/17 07:30 05/12/17 10:31 05/12/17 07:30 Intake and Output: 05/12/17 05/12/17 06:59 18:59 Intake Total 540 960 Output Total 66564 Balance -41499 960 - Medications Medications: Current Medications Albuterol Sulfate (Albuterol 0.083% Inhal Raissa (2.5 Mg/3 Ml) Ud) 2.5 mg IH QID [facility] Last Admin: 05/12/17 12:00 Dose: 2.5 mg Amiodarone HCl (Cordarone) 200 mg PO DAILY [facility] Last Admin: 05/12/17 10:31 Dose: 200 mg Atorvastatin Calcium (Lipitor) 10 mg PO DIN [facility] Last Admin: 05/11/17 18:32 Dose: 10 mg Digoxin (Lanoxin) 0.125 mg PO 1400 [facility] Last Admin: 05/12/17 13:53 Dose: 0.125 mg Docusate Sodium (Colace) 100 mg PO BID [facility] Last Admin: 05/12/17 10:31 Dose: 100 mg Doxercalciferol (Hectorol) 0.5 mcg PO DAILY [facility] Last Admin: 05/12/17 10:31 Dose: 0.5 mcg Furosemide (Lasix) 40 mg PO BID [facility] Last Admin: 05/12/17 10:30 Dose: 40 mg Hydromorphone HCl (Dilaudid) 1 mg IVP Q4H PRN PRN Reason: Pain, moderate (4-7) Last Admin: 05/11/17 21:42 Dose: 1 mg Hydromorphone HCl (Dilaudid) 2 mg IVP Q4H PRN PRN Reason: Pain, severe (8-10) Levothyroxine Sodium (Synthroid) 100 mcg PO DAILY [facility] Last Admin: 05/12/17 10:30 Dose: 100 mcg Montelukast Sodium (Singulair) 10 mg PO DAILY [facility] Last Admin: 05/12/17 10:31 Dose: 10 mg Tranexamic Acid 650 (Mg) 2 tab PO BID [facility] Last Admin: 05/12/17 10:34 Dose: 2 tab Ondansetron HCl (Zofran Inj) 4 mg IVP Q4H PRN PRN Reason: Nausea/Vomiting Last Admin: 05/11/17 08:51 Dose: 4 mg Pantoprazole Sodium (Protonix Ec Tab) 40 mg PO DAILY [facility] Last Admin: 05/12/17 10:30 Dose: 40 mg Polyethylene Glycol (Miralax) 17 gm PO BID [facility] Last Admin: 05/12/17 10:29 Dose: 17 gm Prednisone (Prednisone Tab) 10 mg PO DAILY [facility] Last Admin: 05/12/17 10:30 Dose: 10 mg - Labs Labs: 05/12/17 06:30 05/12/17 06:30 - Constitutional Appears: No Acute Distress - Head Exam Head Exam: ATRAUMATIC, NORMAL INSPECTION, NORMOCEPHALIC - Eye Exam Eye Exam: EOMI, Normal appearance, PERRL. absent: Scleral icterus Pupil Exam: NORMAL ACCOMODATION - ENT Exam ENT Exam: Mucous Membranes Moist - Neck Exam Additional comments: supple - Respiratory Exam Respiratory Exam: Decreased Breath Sounds (bilateral basilar), Clear to Ausculation Bilateral. absent: Rales, Rhonchi, Wheezes - Cardiovascular Exam Cardiovascular Exam: REGULAR RHYTHM, +S1, +S2 - GI/Abdominal Exam GI & Abdominal Exam: Soft, Tenderness (LLQ, RLQ), Normal Bowel Sounds - Rectal Exam Additional comments: schroeder pink urine, clear, not cloudy - Extremities Exam Extremities Exam: Pedal Edema (1+ pitting b/l). 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 Pt was unsuccessful with LHRH agonist ( lupron), first generation antiandrogen (casodex), second generation antiandrogen (xtandi), and androgen biosynthesis inhibitor (Zytiga w/ prednisone ). PSA remains high. Testosterone was high in January 2017 (122.7) Intractable pain in bladder spasm and lower back - no radiation, no bowel incontinent, no saddle anesthesia - dilaudid 1q4PRN, 2q4 PRN - bedside bladder scan Constipation, opioid induced - Miralax and coloace BID - 1 time lactulose today - reassess tomorrow. If needed, may consider relistor Stage 4 castration resistant prostate adenocarcinoma mets to TL spine - continue prednisone - Per Dr. Carballo, he will restart pt on Zytiga, once daily. Pt states that he was on MWF once daily schedule and could not tolerate the side effect. Pt refused to restart on Zytiga. Will explore possibility of starting Cytoxan. - goal testosterone < 50 - Lab Testosterone 8.12 Sex Hormone binding globulin 110 free androgen index = 8.12/110 = 7.4% LDH 769 (04/26/17) Uric acid 6.3 (normal, 04/25/17) PSA total 232 (04/26/17) %Free PSA > 17 (04/26/17) Persistent gross hemauria - CBI - Transexamic acid 650mg 2 tablets BID - Monitor H/H - s/p 2 u PRBC - Hb 10 (9.2). Patient's baseline is between 10 and 11 - He is actively bleeding and is a heart patient. 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 Has ruled out DVT - B/l leg edema, Hx DVT, negative doppler LE b/l Recent Carbapenem-resistant Klebsiella UTI on chronic schroeder (compleveted avycaz , now OFF ABX) - contact isolation IDDM (home humulin 70/30, 20u ACHS) CAD s/p CABG and ICD generator change, A-fib HTN Prophylaxis - SCD, Protonix Discharge planning - Follow up with Dr. Carballo in 1 week after discharge to monitor Zytiag/ prednisone regimen and possibly adding bone mets regimen - Follow up with Dr. Louise in 1 week for schroeder management. s/r/d/w Dr. Carballo <Rogelio Carballo P - Last Filed: 05/14/17 12:07> Objective - Vital Signs/Intake and Output Vital Signs (last 24 hours): Temp Pulse Resp BP Pulse Ox 98.3 F 63 22 132/64 98 05/12/17 07:30 05/12/17 10:31 05/12/17 07:30 05/12/17 10:31 05/12/17 07:30 - Labs Labs: 05/12/17 06:30 05/12/17 06:30 Attending/Attestation - Attestation I have personally seen and examined this patient.: Yes I have fully participated in the care of the patient.: Yes I have reviewed all pertinent clinical information, including history, physical exam and plan: Yes
--- NOTE | 2017-05-12 19:40 | PN ---
DATE: 05/12/2017 SUBJECTIVE: The patient is seen sitting in chair. He is awake, he is alert, he is comfortable. He reports feeling much better today. He still has cough today. He reports decreased lower abdominal spasms. PHYSICAL EXAMINATION GENERAL: Elderly man sitting in chair. VITAL SIGNS: Blood pressure 132/64, heart rate 63, respiratory rate 18 to 20, temperature 98.3. HEENT: Normocephalic, atraumatic. NECK: Supple, no JVD. LUNGS: Bilateral rhonchi, basilar rales. CARDIAC: S1 and S2, regular rate and rhythm, no murmur, no rub. ABDOMEN: Obese, distended, soft, nontender, bowel sounds present. EXTREMITIES: 1+ pitting edema of the lower extremities. INTAKE AND OUTPUT: 10,000/28,000 ?? LABORATORY DATA: WBC 10, hemoglobin 10, hematocrit 31, platelets 194. Sodium 136, potassium 4.1, chloride 97, CO2 of 30, BUN 25, creatinine 1.1, glucose 90, calcium 8.5, AST 48, ALT 73. CURRENT MEDICATIONS: DuoNeb, Colace, Cordarone, Dilaudid, Hectorol, Lanoxin, Lasix 40 b.i.d., Lipitor 10, MiraLax, prednisone, Protonix, Singulair, Synthroid, tranexamic acid, Zofran. ASSESSMENT: 1. Recurrent hematuria. 2. Bladder cancer. 3. Resolved acute kidney injury. 4. Stable chronic kidney disease, stage 3/4. 5. Anemia. 6. Congestive heart failure. PLAN: 1. Off IV fluids. 2. Continue Lasix. 3. Continue CBI. 4. Continue current management. Marianne Lozano MD
--- NOTE | 2017-05-15 10:29 | PQF GENQUE ---
This form is a permanent part of the medical record Dr. Carballo, Patient was re-admitted from [facility] to acute care floor for recurrent/persistent gross hematuria. What is the underlying reason for recurrent hematuria---it is from prostate cancer or bladder cancer (as per Dr. Solo Lozano 05/12 PN) or from chronic indwelling schroeder catheter? Please specify below. Thank you. Clarification of your documentation is requested to better reflect the severity of illness and intensity of treatment of your patient. Indicators present [] Specify: [] [] Specify: [] [] Specify: [] [] Specify: [] Location in the medical record that reflects the above clinical findings: [] Treatment Provided: [] PHYSICIAN'S RESPONSE Based on your medical judgment of the clinical indicators outlined above please clarify the following: [] Practitioner response [] If unable to determine, please check the box, sign and date. Present On Admission (POA) Indicator: [] Present at the time of admission [] Not present at the time of admission [] Clinically Undetermined In responding to this query, please exercise your independent professional judgment. The fact that a question is asked does not imply that any particular answer is desired or expected. Thank you for your clarification on this documentation. If you have any questions please call:[ ] * Thank you, [ ]MAREN MARTINESmanager biostatistics ANNABELLA
--- NOTE | 2017-06-01 10:12 | DS ---
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 The patient said he began having large clots of blood, and the clots were unable to pass through his Avendano catheter. The patient does have a chronic indwelling Avendano catheter. His hemoglobin, which is normally around 10, decreased to 9.2, and his BUN and creatinine had increased. He denied chest pain or shortness of breath. HOSPITAL COURSE: The patient was admitted and placed on continuous bladder irrigation. He was seen by Dr. Louise, his urologist, and Dr. Lozano, the college basketball coach. Two units of packed red blood cells were typed and crossed and transfused. The patient needed further monitoring of his hemoglobin as well as continuation of intermittent bladder irrigation for hematuria with large clots, so he was sent to the transitional care unit for further rehab and monitoring. 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 DISCHARGE MEDICATIONS: Amiodarone 200 mg daily, digoxin 125 mcg daily, Hectorol 0.5 mcg daily, insulin 20 units before meals and at night, Lasix 40 mg twice a day, Lipitor 10 mg at night, MiraLax 17 g twice a day, prednisone 10 mg daily, Protonix 40 mg in a.m., Singulair 10 mg daily, Synthroid 100 mcg daily, Xopenex q.6 hours, and Ultram 50 mg 3 times a day as needed for pain. DISCHARGE FOLLOWUP: The patient will be followed up in the transitional care unit. Sreedhar Polk MD [facility]
== END 2017-05-12 17:24 | DRG 723 ==
LOC: ED 04:47 → ERH 06:54 → 5RNO 09:14 → OBSVTOIN 05-10 08:12
PROVIDERS: ADMIT Internal Medicine; ATTEND Internal Medicine
PROC: 30233N1 Transfusion of Nonautologous Red Blood Cells into Peripheral Vein, Percutaneous Approach (ICD-10-PCS; principal; 2017-05-09)
DX: C61 Malignant neoplasm of prostate (principal); T83.89XA Other specified complication of genitourinary prosthetic devices, implants and grafts, initial encounter; N17.9 Acute kidney failure, unspecified; C79.51 Secondary malignant neoplasm of bone; C77.9 Secondary and unspecified malignant neoplasm of lymph node, unspecified; I13.0 Hypertensive heart and chronic kidney disease with heart failure and stage 1 through stage 4 chronic kidney disease, or unspecified chronic kidney disease; B37.0 Candidal stomatitis; N18.4 Chronic kidney disease, stage 4 (severe); E11.22 Type 2 diabetes mellitus with diabetic chronic kidney disease; I42.0 Dilated cardiomyopathy; I50.42 Chronic combined systolic (congestive) and diastolic (congestive) heart failure; N02.9 Recurrent and persistent hematuria with unspecified morphologic changes; D62 Acute posthemorrhagic anemia; N25.81 Secondary hyperparathyroidism of renal origin; C67.9 Malignant neoplasm of bladder, unspecified; J44.9 Chronic obstructive pulmonary disease, unspecified; E86.0 Dehydration; I25.10 Atherosclerotic heart disease of native coronary artery without angina pectoris; M19.90 Unspecified osteoarthritis, unspecified site; D63.0 Anemia in neoplastic disease; E11.65 Type 2 diabetes mellitus with hyperglycemia; E83.39 Other disorders of phosphorus metabolism; E03.2 Hypothyroidism due to medicaments and other exogenous substances; T46.2X5A Adverse effect of other antidysrhythmic drugs, initial encounter; I08.3 Combined rheumatic disorders of mitral, aortic and tricuspid valves; I48.0 Paroxysmal atrial fibrillation; K59.03 Drug induced constipation; T40.2X5A Adverse effect of other opioids, initial encounter; Y84.6 Urinary catheterization as the cause of abnormal reaction of the patient, or of later complication, without mention of misadventure at the time of the procedure; Z95.810 Presence of automatic (implantable) cardiac defibrillator; Z95.1 Presence of aortocoronary bypass graft; Z79.4 Long term (current) use of insulin; I25.2 Old myocardial infarction; Z95.5 Presence of coronary angioplasty implant and graft; Z86.718 Personal history of other venous thrombosis and embolism

== ENCOUNTER 2017-05-12 17:24 | Inpatient (IN) | payer OTHER, MEDICARE ==
[2017-05-12] MEDS: Albuterol 0.083% Inhal Sol (2.5 mg/3 mL) UD INH SCH (20:22)
[2017-05-12] MEDS: HYDROmorphone 2 mg/ml ISec IVP PRN (21:56)
[2017-05-12] MEDS: Insulin Human NPH/Reg 70/30 Vial(3 ml) SC SCH (22:00)
[2017-05-12 22:24] VITALS: BMI 23.9
[2017-05-13] MEDS: Pantoprazole 40 mg EC Tab PO SCH (05:37)
[2017-05-13] MEDS: Levothyroxine 100 MCG TAB PO SCH (05:37)
[2017-05-13] MEDS: Insulin Human NPH/Reg 70/30 Vial(3 ml) SC SCH ×4 (07:05→21:50)
[2017-05-13] MEDS: Albuterol 0.083% Inhal Sol (2.5 mg/3 mL) UD INH SCH ×5 (07:32→19:44)
--- NOTE | 2017-05-13 08:28 | CP.PCM.HP ---
History of Present Illness - History of Present Illness History of Present Illness: 87 year old male with history of chronic heart failure, COPD, DMII, coronary artery disease, hypothyroidism, metastatic prostate cancer, and arthritis who was admitted for hematuria with drop in hemoglobin. Patient is now transferred to the [facility] for continuous bladder irrigation and monitoring of hemoglobin. This morning, there is dark red blood in the schroeder catheter bag. He also complains of bladder spasms. He denies chest pain or shortness of breath. Present on Admission - Present on Admission Any Indicators Present on Admission: Yes History of DVT/PE: Yes History of Uncontrolled Diabetes: No Urinary Catheter: Yes Decubitus Ulcer Present: No Review of Systems - Constitutional Constitutional: absent: Chills, Fever, Headache - Cardiovascular Cardiovascular: absent: Chest Pain, Diaphoresis, Dyspnea - Respiratory Respiratory: absent: Cough, Dyspnea, Wheezing - Genitourinary Genitourinary: As Per HPI - Musculoskeletal Musculoskeletal: Back Pain Past Patient History - Infectious Disease Hx of Infectious Diseases: None - Tetanus Immunizations Tetanus Immunization: Unknown - Past Medical History & Family History Past Medical History?: Yes - Past Social History Smoking Status: Unknown If Ever Smoked - CARDIAC Hx Cardiac Disorders: Yes (ACS, CAD, CABG) Hx Congestive Heart Failure: Yes Hx Hypercholesterolemia: Yes Hx Hypertension: Yes - PULMONARY Hx Chronic Obstructive Pulmonary Disease (COPD): Yes - NEUROLOGICAL Hx Neurological Disorder: No - HEENT Hx HEENT Problems: Yes ([place]) Hx Cataracts: Yes (WITH b/t SURGERY) Hx Glaucoma: Yes - RENAL Hx Renal Failure: Yes - ENDOCRINE/METABOLIC Hx Diabetes Mellitus Type 2: Yes - HEMATOLOGICAL/ONCOLOGICAL Hx Blood Disorders: Yes Hx Anemia: Yes (in past with blood transfusion) 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) Other/Comment: pt dx in 2001 had radiation trreatments, dx again in 2016 was taking po chemo, stopped due to recommendation by dr Carballo as per pt due to pt taking amidorone for 25 yrs was not compatable - INTEGUMENTARY Other/Comment: multiple skin discolorations and tatoos both arms, multiple brown skin discolorations ble - MUSCULOSKELETAL/RHEUMATOLOGICAL Hx Falls: No - GASTROINTESTINAL Hx Gastrointestinal Disorders: No - GENITOURINARY/GYNECOLOGICAL Hx Genitourinary Disorders: Yes (prostate ca/hematuria/2 way schroeder) - PSYCHIATRIC Hx Psychophysiologic Disorder: No Hx Emotional Abuse: No Hx Physical Abuse: No Hx Substance Use: No - SURGICAL HISTORY Hx Surgeries: (rcw pac [address] daren pena) Hx Coronary Stent: Yes (x4 2001) Hx Open Heart Surgery: Yes (int pacemaker/defibrillator) Other/Comment: cardiac stents, 4 quadruple bypass in the past 3 years, indwelling schroeder catheter placement. cystoscopy x3 weeks ago, left shoulder cyst removed 1988 - ANESTHESIA Hx Anesthesia Reactions: No Hx Malignant Hyperthermia: No Meds Allergies/Adverse Reactions: Allergies Allergy/AdvReac Type Severity Reaction Status Date / Time Iodinated Contrast- Oral and Allergy ANAPHYLAXIS Verified 05/09/17 04:56 IV Dye levofloxacin [From Levaquin] Allergy ANAPHYLAXIS Verified 05/09/17 04:56 Physical Exam - Constitutional Appears: No Acute Distress - Head Exam Head Exam: ATRAUMATIC, NORMOCEPHALIC - Respiratory Exam Respiratory Exam: Clear to Auscultation Bilateral, NORMAL BREATHING PATTERN - Cardiovascular Exam Cardiovascular Exam: +S1, +S2 - GI/Abdominal Exam GI & Abdominal Exam: Soft - Neurological Exam Neurological exam: Alert, Oriented x3 Results - Vital Signs Recent Vital Signs: Last Vital Signs Temp 98.3 F 05/13/17 06:00 Pulse 59 L 05/13/17 06:00 Resp 16 05/13/17 06:00 BP 157/73 H 05/13/17 06:00 Pulse Ox 100 05/13/17 06:00 Assessment & Plan - Assessment and Plan (Free Text) Assessment: Hematuria Metastatic prostate cancer COPD CAD Chronic systolic and diastolic heart failure DMII Hypothyroidism Plan: Patient is seen this morning. He has dark red blood in the schroeder catheter bag. continue bladder irrigation. check hemoglobin and hematocrit tomorrow. Patient is status post 2 units PRBCs continue all maintenance medications on tranxemic acid for hematuria as per oncology
[2017-05-13] MEDS: HYDROmorphone 2 mg/ml ISec IVP PRN (09:37)
[2017-05-13] MEDS: POLYETHYLENE GLYCOL 3350 17 GM/Dose PACKET PO SCH ×2 (09:41→18:04)
[2017-05-13] MEDS ORDERED: TRANEXAMIC ACID 650 MG PO SCH (10:00)
[2017-05-13 12:46] LABS: HEMOGLOBIN 10.2 gm/dL (14.0-18.0); MEAN CELL VOLUME 86.8 fL (80.0-105.0); MEAN CORPUSCULAR HEMOGLOBIN 27.5 pg (25.0-35.0); MEAN CORPUSCULAR HGB CONC 31.7 g/dl (31.0-37.0); MEAN PLATELET VOLUME 9.6 fl (7.0-11.0); RBC 3.71 10^6/uL (3.5-6.1); RED CELL DISTRIBUTION WIDTH 15.1 % (11.5-14.5); WHITE BLOOD COUNT 10.6 10^3/ul (4.5-11.0)
[2017-05-13] MEDS: Digoxin 125 mcg (0.125 mg) Tab PO SCH (14:05)
[2017-05-13] MEDS: HYDROmorphone 1 mg/ml ISec IVP PRN (15:39)
--- NOTE | 2017-05-13 22:50 | CON ---
DATE: 05/13/2017 REASON FOR CONSULTATION: Persistent hematuria, anemia, CKD IV. HISTORY OF PRESENT ILLNESS: This is an 87-year-old male known to me from recent evaluation in the hospital when he was admitted for recurrent hematuria, lower abdominal pain, acute kidney injury, dehydration. The patient has been receiving continuous bladder irrigation. The patient has a history of bladder cancer. He has an indwelling Avendano. He is now transferred to the transitional care unit for physical therapy. He remains on continuous bladder irrigation. Currently, he is sitting in the chair. He appears comfortable. He denies any chest tightness. He does have a dry cough. He also complains of bladder spasms and lower abdominal pain. PAST MEDICAL AND SURGICAL HISTORY: CHF, atrial fibrillation, CAD, COPD, NIDDM, metastatic prostate cancer, severe osteoarthritis, recurrent hematuria, indwelling Avendano. FAMILY HISTORY: Noncontributory. SOCIAL HISTORY: No smoking. No alcohol use. No IV drug abuse. ALLERGIES: LEVAQUIN AND IV CONTRAST. CURRENT MEDICATIONS: Amiodarone 200 daily, Dilaudid, Hectorol 0.5, digoxin 0.125, Lasix 40 b.i.d., Lipitor 10, MiraLax, prednisone, Protonix, Singulair, Synthroid 100 mcg, tranexamic acid 2 tablets b.i.d., and Zofran. REVIEW OF SYSTEMS: All systems are reviewed, pertinent positives as mentioned in the history of present illness. Rest unremarkable. PHYSICAL EXAMINATION GENERAL: An elderly man, sitting in chair. VITAL SIGNS: Blood pressure 127/60, heart rate 60, respiratory rate 16, temperature 98.3. HEENT: Normocephalic, atraumatic. NECK: Supple. No JVD. LUNGS: Bilateral rhonchi, distant breath sounds, minimal rales at bases. CARDIAC: S1, S2, regular rate and rhythm. No murmur. No rubs. ABDOMEN: Soft, nondistended, tenderness in the lower abdomen. Bowel sounds present. EXTREMITIES: Chronic stasis changes. 1+ pitting edema of the lower extremities. INTAKE AND OUTPUT: Not charted. LABORATORY DATA: No new labs today. ASSESSMENT AND PLAN: 1. Stable chronic kidney disease, stage IV. 2. Multifactorial anemia, anemia secondary to chronic kidney disease and blood loss. 3. Coronary artery disease, cardiomyopathy, stable. 4. Persistent hematuria, continue CBI and tranexamic acid. 5. Non-insulin diabetes mellitus. 6. Hypothyroidism. PLAN: 1. Continue CBI. 2. Continue tranexamic acid. 3. Monitor H and H closely. 4. Physical therapy. 5. Monitor finger sticks. Thank you for the courtesy of this consultation. We will follow this patient with you. Marianne Lozano MD
[2017-05-14] MEDS: Pantoprazole 40 mg EC Tab PO SCH (05:31)
[2017-05-14] MEDS: Levothyroxine 100 MCG TAB PO SCH (05:31)
--- NOTE | 2017-05-14 06:13 | CON ---
DATE: 05/13/2017 The patient's hospital visit on the Transitional Care Floor. For Dr. Carballo. CHIEF COMPLAINT: Hematuria. HISTORY OF PRESENT ILLNESS: The patient is an 87-year-old male with known metastatic castrate-resistant prostate cancer with persistent hematuria with anemia, status post transfusion, now admitted to TCU for reconditioning along with continuous bladder irrigation as per Dr. Masterson and Dr. Louise, Urology consultants. He is also known to suffer from COPD, CHF with a pacer defibrillator, on amiodarone and tranexamic acid for his hematuria. With this, the patient is now reporting he has had significant bladder spasms with aleksander-colored urine since transfer from the medical floor to the TCU. ALLERGIES: IV *------* ORAL DYE AND LEVAQUIN. PAST MEDICAL HISTORY: Significant for multiple angioplasty, status post pacer defibrillator, cardiac stents x4, stage IV prostate CA, urinary incontinence with leg bag, history of DVT, renal insufficiency, previously on a Primacor drip which has been discontinued, anemia being status post transfusion earlier his hospital stay. FAMILY HISTORY: Noncontributory. SOCIAL HISTORY: Noncontributory. REVIEW OF SYSTEMS: Essentially negative except as above. PHYSICAL EXAMINATION VITAL SIGNS: Temperature 98.3, pulse 60, respirations 16, blood pressure 127/60, pulse ox 100%. HEENT: Unremarkable. NECK: Supple. HEART: Regular rate with pacer defibrillator. LUNGS: Clear. ABDOMEN: Soft, nontender. EXTREMITIES: No edema. SKIN: Warm and dry. Clear with a Avendano in situ with the patient now having irrigation through the Avendano. LABORATORY DATA: The patient's labs were done. White blood cell count of 10.6, hemoglobin 10.2, hematocrit 32.2, platelet count of 196,000 with a comprehensive metabolic panel showing a normal comprehensive metabolic panel with nonfasting glucose of 94 followed by 263, BUN of 25, creatinine 1.1, AST of 73, total protein of 5.4. Urinalysis showed large amount of blood, small amount of leukocyte esterase. MEDICATIONS: The patient's medicines were reviewed, they include, albuterol, Colace, amiodarone, Dilaudid, Hectorol, insulin sliding scale, Lanoxin, Lasix, Lipitor, MiraLax, prednisone, Protonix, Pyridium which was recently started, Singulair, Synthroid, tranexamic acid, and Zofran. ASSESSMENT: For this patient is that of persistent hematuria with bladder spasms secondary to metastatic prostate, CA, anemia secondary to bleed, severe ASCVD with pacer defibrillator, status post stenting. His prostate cancer is stage IV, it is castrate-resistant with metastasis to the spine, retroperitoneal lymphadenopathy, atrial fibrillation on amiodarone, COPD, chronic kidney disease, hypothyroidism, diabetes mellitus, history of DVT, DJD. PLAN: For this patient is to continue present medical regimen. We will add Pyridium to see if this will help his discomfort with the spasms versus *------* as per Dr. Masterson or Dr. Louise, Urology. We will monitor clinically with lab with his labs from today within normal range except as listed above with no acute bleeding appreciated with no drop in hemoglobin at this time. There is consideration for the patient to be a candidate for resumption of chemotherapy in pill form with Cytoxan as Zytiga was not tolerated well as per Dr. Carballo's recommendations. We will monitor clinically and with labs. Aram Hutchins MD
[2017-05-14] MEDS: Insulin Human NPH/Reg 70/30 Vial(3 ml) SC SCH ×5 (06:32→22:30)
[2017-05-14 07:09] LABS: BASO # 0.02 K/mm3 (0.0-2.0); BASO % 0.2 % (0.0-3.0); EOS # 0.1 (0.0-0.7); EOS % 1.3 % (1.5-5.0); GRAN % 73.4 % (50.0-68.0); HEMOGLOBIN 10.1 gm/dL (14.0-18.0); LYMPH # 1.3 (1.2-3.4); LYMPH % 14.7 % (22.0-35.0); MEAN CELL VOLUME 85.4 fL (80.0-105.0); MEAN CORPUSCULAR HEMOGLOBIN 27.2 pg (25.0-35.0); MEAN CORPUSCULAR HGB CONC 31.9 g/dl (31.0-37.0); MEAN PLATELET VOLUME 9.9 fl (7.0-11.0); MONO # 0.9 (0.1-0.6); MONO % 10.4 % (1.0-6.0); PLATELET COUNT 213 10^3/uL (120.0-450.0); RBC 3.71 10^6/uL (3.5-6.1); RED CELL DISTRIBUTION WIDTH 14.7 % (11.5-14.5); WHITE BLOOD COUNT 8.6 10^3/ul (4.5-11.0)
[2017-05-14 07:12] LABS: BLOOD UREA NITROGEN 32 mg/dL (7-21); CALCIUM 8.6 mg/dL (8.4-10.5); GFR AFRICAN-AMERICAN > 60; GFR NON-AFRICAN AMERICAN > 60
[2017-05-14] MEDS: Albuterol 0.083% Inhal Sol (2.5 mg/3 mL) UD INH SCH ×5 (07:28→19:52)
[2017-05-14] MEDS ORDERED: HYDROmorphone 2 mg/ml ISec IVP PRN (08:13)
[2017-05-14] MEDS: POLYETHYLENE GLYCOL 3350 17 GM/Dose PACKET PO SCH ×2 (10:10→18:00)
--- NOTE | 2017-05-14 10:22 | PN ---
DATE: 05/14/2017 LOCATION: The patient is seen in the [facility], room 315, bed 1, transitional care unit. SUBJECTIVE: Patient was admitted for management of hematuria and abdominal pain. Patient has long history of congestive heart failure, chronic lung disease, and hypothyroidism. Patient has a cardiac pacemaker. He also has history of carcinoma of the prostate with metastatic disease to the lymph nodes. Patient has had recurrent urinary tract infection involving the bladder. Patient has persistent intermittent hematuria. PHYSICAL EXAMINATION: VITAL SIGNS: This morning, the pulse is 60 per minute, blood pressure 150/60, and O2 saturation is 100% on room air. LUNGS: Clear. HEART: Normal sinus rhythm. ABDOMEN: Soft. There is some tenderness in the abdomen, mild distention. CENTRAL NERVOUS SYSTEM: No focal deficits. MEDICATIONS: Consists of DuoNeb. Patient is on Colace, amiodarone, Dilaudid, we are going to increase his dose to 1.5 mg q. 4 hours p.r.n., Patient is on vitamin D, digoxin, Lasix, Lipitor, MiraLax, prednisone, pantoprazole, and patient is also getting Pyridium which is 100 mg p.o. q. 6 hours, Singulair 10 mg daily, andSynthroid 100 mcg daily. ASSESSMENT AND PLAN: His medications will be continued. Patient's bladder is filled with blood contaminated urine. Patient is always improving on a general medical status. We will continue current management. Giselle Polk MD [facility]
[2017-05-14] MEDS: Digoxin 125 mcg (0.125 mg) Tab PO SCH ×2 (14:02→15:50)
--- NOTE | 2017-05-14 19:57 | PN ---
DATE: 05/14/2017 The patient's hospital visit on TCU for Dr. Carballo. SUBJECTIVE: The patient is an 87-year-old male with known metastatic castrate-resistant prostate cancer with persistent hematuria with Avendano catheter being irrigated with clots causing him severe bladder spasms. He is now admitted to TCU as per his primary doctor for continuation of his treatment. He is followed by Dr. Masterson and Dr. Louise, urology consultants. Yesterday, Pyridium was added for bladder spasms with modest improvement, however, in the middle of the night, he reported that the bladder spasm became intolerable, it was severe pain, for which he received Dilaudid injection and promptly started vomiting. Zofran was given afterwards. The patient also is known to suffer from severe COPD, CHF, has a pacer and defibrillator for his ASCVD and on amiodarone. He also takes tranexamic acid for this severe hematuria which he continues 2 tablets twice a day with no significant improvement yet. At present, the patient is resting in bed with Avendano in situ with aleksander-colored urine noted. OBJECTIVE: VITAL SIGNS: Temperature 97.9, pulse 70, respirations 18, blood pressure 120/61 and pulse ox of 100%. HEENT: Unremarkable. Tongue is dry. NECK: Supple. HEART: Regular rate, occasional ectopic beat with 1/6 systolic ejection murmur. The patient's defibrillator is noted. LUNGS: Clear. ABDOMEN: Soft. Minimal tenderness with gentle palpation of the mid-lower abdomen. EXTREMITIES: No edema. He has a Avendano catheter in situ. SKIN: Warm and dry. NEUROLOGIC: He is awake, alert and oriented x3. LABORATORY DATA: The patient's labs were done. White blood cell count of 8.6, hemoglobin 10.1, hematocrit 31.7 and platelet count of 213,000 with a chem metabolic panel ordered for tomorrow. His chem-7 today showed a chloride of 94, BUN of 32 with creatinine of 1.1. Non-fasting sugar of 352. ASSESSMENT: The assessment for this patient is that of stage IV castrate-resistant prostate cancer with bladder spasms and persistent hematuria secondary to above, anemia of chronic disease, severe ASCVD with pacer and defibrillator, nausea and vomiting secondary to meds?, ASCVD status post stenting, chronic obstructive pulmonary disease, hypothyroidism, diabetes mellitus and history of deep venous thrombosis. PLAN: The plan for this patient is to have if he needs Pyridium for his bladder spasms. This was read as a nurse and physician communication and related to the nurse on the floor. My telephone computer as an order. We will also ask for his Zofran to be given prior to narcotic analgesics including his Dilaudid which was adjusted as per his primary doctor along with follow up with irrigation and urologic consultation with Dr. Masterson and Dr. Louise, urologists. We will continue his tranexamic acid. We will monitor him clinically with labs. Prognosis for this patient is guarded. Aram Hutchins MD
[2017-05-15] MEDS: Pantoprazole 40 mg EC Tab PO SCH (06:25)
[2017-05-15] MEDS: Levothyroxine 100 MCG TAB PO SCH (06:25)
[2017-05-15 07:27] LABS: BASO # 0.02 K/mm3 (0.0-2.0); BASO % 0.2 % (0.0-3.0); EOS # 0.1 (0.0-0.7); EOS % 0.6 % (1.5-5.0); GRAN # 9.83 (1.4-6.5); HEMOGLOBIN 10.6 gm/dL (14.0-18.0); LYMPH % 8.4 % (22.0-35.0); MEAN CELL VOLUME 86.6 fL (80.0-105.0); MEAN CORPUSCULAR HEMOGLOBIN 27.9 pg (25.0-35.0); MEAN CORPUSCULAR HGB CONC 32.2 g/dl (31.0-37.0); MEAN PLATELET VOLUME 9.6 fl (7.0-11.0); MONO # 1.2 (0.1-0.6); MONO % 9.8 % (1.0-6.0); PLATELET COUNT 211 10^3/uL (120.0-450.0); RED CELL DISTRIBUTION WIDTH 14.8 % (11.5-14.5); WHITE BLOOD COUNT 12.1 10^3/ul (4.5-11.0)
[2017-05-15] MEDS: Albuterol 0.083% Inhal Sol (2.5 mg/3 mL) UD INH SCH (07:36)
[2017-05-15 07:37] LABS: ALB/GLOB RATIO 1.3 (1.1-1.8); ALBUMIN 3.3 g/dL (3.0-4.8); ALT/SGPT 69 U/L (7-56); AST/SGOT 48 U/L (15-59); BLOOD UREA NITROGEN 31 mg/dL (7-21); CALCIUM 8.7 mg/dL (8.4-10.5); GFR AFRICAN-AMERICAN > 60; GFR NON-AFRICAN AMERICAN 52
[2017-05-15] MEDS: Insulin Human NPH/Reg 70/30 Vial(3 ml) SC SCH ×4 (08:34→21:39)
--- NOTE | 2017-05-15 09:40 | PN ---
DATE: LOCATION: He is in the Transitional Care Unit in [facility]. The patient's room number is 315. SUBJECTIVE: The patient is seen this morning. He is concerned about bleeding from his urethra. The patient has abdominal discomfort at this time. PHYSICAL EXAMINATION: VITAL SIGNS: Blood pressure is 159/60, patient's pulse is 70 per minute, temperature is 98.6. LUNGS: Clear. HEART: Normal sinus rhythm. The patient has a pacemaker. ABDOMEN: Soft. Tenderness in the abdomen that is diffuse, mild. There is some distention present. CENTRAL NERVOUS SYSTEM: The patient had no focal deficits. At this time, the patient is ambulating. Avendano catheter shows evidence of urine mildly tinged with blood. MEDICATIONS: We will continue the same medicines. The patient is on DuoNeb. The patient is on amiodarone, Dilaudid 1.5 mg p.r.n. for pain, digoxin, vitamin D, Lasix, prednisone, Protonix, Lipitor, MiraLax, Colace. The patient is also taking Pyridium, which is an antiseptic for urinary tract infection and the patient's Synthroid dose is 100 mcg daily. His diet is 2 g sodium, heart healthy diet, diabetic. LABORATORY DATA: Recent lab work, hemoglobin this morning is 10.6, his white count is 12,100. No urine culture. ASSESSMENT AND PLAN: Continue current management. He is waiting for Dr. Masterson or Dr. Louise to come in to change his Avendano catheter because he has had this catheter for 5 weeks. Giselle Polk MD [facility]
[2017-05-15] MEDS: POLYETHYLENE GLYCOL 3350 17 GM/Dose PACKET PO SCH ×2 (10:02→17:37)
--- NOTE | 2017-05-15 10:23 | PN ---
PULMONARY PROGRESS NOTE DATE: 05/15/2017 SUBJECTIVE: The appears comfortable this morning. He is not short of breath at rest. PHYSICAL EXAMINATION VITAL SIGNS: Temperature is 97.9, pulse is 70, respirations are 18 and blood pressure is 159/63. Oxygen saturation on nasal cannula is 100%. HEENT: Normocephalic and atraumatic. NECK: No JVD. CARDIOPULMONARY: Systolic ejection murmur at the lower left sternal border. No S3 gallop. LUNGS: Decreased breath sounds at the bases. Minimal/less rhonchi. No wheezing. EXTREMITIES: Positive edema. No cyanosis. No clubbing. Calves are nontender to palpation.. GASTROINTESTINAL: Abdomen is soft, nontender and nondistended. Bowel sounds are positive.. SKIN: No acute rash. NEUROLOGIC: Limited at the present time. IMPRESSION: 1. Advanced prostate cancer. 2. Recurrent hematuria. 3. Chronic obstructive pulmonary disease. 4. Coronary artery disease. 5. Chronic renal disease. 6. Chronic anemia. PLAN: The patient appears comfortable this morning. He is not short of breath at rest. He states he is feeling better overall. On physical exam, only minimal bronchospasm is noted. I will continue with the current nebulizer treatments and low-dose oral steroids for now. I would continue with the genitourinary and oncology evaluations. Inputs are noted. Clinical status of the patient is certainly improved compared to last week. However, again, the overall status/prognosis of this elderly patient does remains very guarded. I will discus the above with Dr. Polk. Kwadwo Arias MD MTDD
[2017-05-15] MEDS: Levalbuterol 0.63 MG/3 ML Inhal Soln UD IH PRN (13:52)
[2017-05-15] MEDS: Digoxin 125 mcg (0.125 mg) Tab PO SCH (14:20)
--- NOTE | 2017-05-15 14:47 | PN ---
DATE: 05/15/2017 SUBJECTIVE: The patient is seen, sitting in bed. He is awake, he is alert. Dr. Masterson is at bedside. The patient had gross hematuria yesterday. Today, the urine appears somewhat clear. He is complaining is of lower abdominal pain. PHYSICAL EXAMINATION: GENERAL: An elderly man, sitting in chair. VITAL SIGNS: Blood pressure 124/57, heart rate 77, respiratory rate 18, temperature 97.3. HEENT: Normocephalic, atraumatic. Positive pallor. NECK: Supple. No JVD. LUNGS: Bilateral equal air entry, bilateral rhonchi, basal rales. CARDIAC: S1, S2, regular rate and rhythm. Positive murmur. No rubs. ABDOMEN: Obese, distended, soft, nontender. Bowel sounds present. EXTREMITIES: No lower extremity edema. LABORATORY DATA: WBC 12, hemoglobin 10.6, hematocrit 33, platelets 211. Sodium 134, potassium 4.3, chloride 95, CO2 of 33, BUN 31, creatinine 1.3, glucose 117, calcium 8.7, total bilirubin 0.6. Albumin 3.3. MEDICATIONS: List reviewed. ASSESSMENT: 1. Stable chronic kidney disease, stage III/IV. 2. Recurrent hematuria. 3. Metastatic prostate cancer. 4. Congestive heart failure, cardiomyopathy, atrial fibrillation. 5. Multifactorial anemia. 6. Noninsulin-dependent diabetes mellitus. PLAN: 1. Case discussed with Dr. Louise at bedside, plan is to change Avendano catheter tomorrow. 2. Continue CBI. 3. If hematuria continues, perhaps cystoscopy again. Marianne Lozano MD
--- NOTE | 2017-05-15 16:09 | CP.PCM.PN ---
Subjective - Date & Time of Evaluation Date of Evaluation: 05/15/17 Time of Evaluation: 10:40 - Subjective Subjective: PGY [address] Carballo: Pt seen and examined at bedside. No acute events overnight. Pt still complaining of bladder spasms. No other complaints. He lauren any fever, chills, n/v/d, cp, sob, abd pain. Objective - Vital Signs/Intake and Output Vital Signs (last 24 hours): Temp Pulse Resp BP Pulse Ox 97.3 F L 77 18 124/57 L 98 05/15/17 10:23 05/15/17 10:23 05/15/17 10:23 05/15/17 10:23 05/15/17 10:23 Intake and Output: 05/15/17 05/15/17 06:59 18:59 Intake Total 600 Output Total 5000 Balance -4400 - Medications Medications: Current Medications Amiodarone HCl (Cordarone) 200 mg PO DAILY JEANA PRN Reason: Protocol Last Admin: 05/15/17 09:59 Dose: 200 mg Atorvastatin Calcium (Lipitor) 10 mg PO DIN JEANA PRN Reason: Protocol Last Admin: 05/14/17 17:57 Dose: 10 mg Digoxin (Lanoxin) 0.125 mg PO 1400 JEANA PRN Reason: Protocol Last Admin: 05/15/17 14:20 Dose: 0.125 mg Docusate Sodium (Colace) 100 mg PO BID JEANA PRN Reason: Protocol Last Admin: 05/15/17 09:59 Dose: 100 mg Doxercalciferol (Hectorol) 0.5 mcg PO DAILY JEANA PRN Reason: Protocol Last Admin: 05/15/17 10:00 Dose: 0.5 mcg Furosemide (Lasix) 40 mg PO BID JEANA PRN Reason: Protocol Last Admin: 05/15/17 10:01 Dose: 40 mg Hydromorphone HCl (Dilaudid) 1 mg IVP Q4H PRN; Protocol PRN Reason: Pain, moderate (4-7) Last Admin: 05/13/17 15:39 Dose: 1 mg Levalbuterol HCl (Xopenex) 0.63 mg IH [id number] PRN PRN Reason: Shortness of Breath Last Admin: 05/15/17 13:52 Dose: 0.63 mg Levothyroxine Sodium (Synthroid) 100 mcg PO 0600 JEANA PRN Reason: Protocol Last Admin: 05/15/17 06:25 Dose: 100 mcg Montelukast Sodium (Singulair) 10 mg PO DAILY JEANA PRN Reason: Protocol Last Admin: 05/15/17 10:02 Dose: 10 mg Tranexamic Acid 650 (Mg) 2 tab PO BID [facility] Last Admin: 05/15/17 10:03 Dose: 2 tab Ondansetron HCl (Zofran Inj) 4 mg IVP Q4H PRN; Protocol PRN Reason: Nausea/Vomiting Last Admin: 05/14/17 11:50 Dose: 4 mg Pantoprazole Sodium (Protonix Ec Tab) 40 mg PO 0600 JEANA PRN Reason: Protocol Last Admin: 05/15/17 06:25 Dose: 40 mg Phenazopyridine HCl (Pyridium) 100 mg PO PC PRN PRN Reason: Bladder Spasm Polyethylene Glycol (Miralax) 17 gm PO BID JEANA PRN Reason: Protocol Last Admin: 05/15/17 10:02 Dose: 17 gm Prednisone (Prednisone Tab) 10 mg PO DAILY JEANA PRN Reason: Protocol Last Admin: 05/15/17 10:02 Dose: 10 mg Tramadol HCl (Ultram) 50 mg PO TID PRN; Protocol PRN Reason: Pain - Labs Labs: 05/15/17 07:00 05/15/17 07:00 - Constitutional Appears: No Acute Distress - Head Exam Head Exam: ATRAUMATIC, NORMAL INSPECTION, NORMOCEPHALIC - Eye Exam Eye Exam: EOMI, Normal appearance, PERRL Pupil Exam: NORMAL ACCOMODATION, PERRL - ENT Exam ENT Exam: Mucous Membranes Moist, Normal Exam - Neck Exam Neck Exam: Full ROM, Normal Inspection. absent: Lymphadenopathy - Respiratory Exam Respiratory Exam: Clear to Ausculation Bilateral, NORMAL BREATHING PATTERN. absent: Wheezes - Cardiovascular Exam Cardiovascular Exam: REGULAR RHYTHM, RRR, +S1, +S2. absent: Murmur - GI/Abdominal Exam GI & Abdominal Exam: Soft, Normal Bowel Sounds. absent: Distended, Tenderness - Extremities Exam Extremities Exam: Normal Capillary Refill. absent: Calf Tenderness, Joint Swelling, Pedal Edema - Neurological Exam Neurological Exam: Alert, Awake, Oriented x3 - Skin Skin Exam: Dry, Intact, Normal Color, Warm Assessment and Plan - Assessment and Plan (Free Text) Assessment: 87 M with history of stage 4 castrate resistant prostate cancer, chronic heart failure, COPD, DMII, coronary artery disease, hypothyroidism, and arthritis who was admitted for persistent hematuria currently with continuous bladder irrigation, also with bladder spasms. In TCU for cont rehab. Plan: - Cont medical management - Consider starting Urispas for bladder spasms - f/u with cardiology for interaction with Amio and Digoxin - F/u urology recs for spasms and changing catheter - Cont bladder irrigation - Cont Pyridium and Transexamic acid - Pain control with Dilaudid - Prednisone 10mg daily (was previously on Zytiga but not tolerated) - GI and DVT ppx - PT and OT Case and plan was seen, reviewed and discussed in detail with Dr Carballo.
--- NOTE | 2017-05-15 19:21 | PN ---
DATE: 05/15/2017 SUBJECTIVE: The patient is well-known to me. The patient was at home and was readmitted again for bladder spasms and hematuria. He has history of castrate-resistant metastatic prostate cancer with bony and soft tissue mets. The patient has long history of urinary retention with an indwelling which has been changed monthly. Recently, the patient has been having hematuria which temporally resolves and then recurs again at home. He has been having some issues with clot retention and then gets bladder spasms which he reports are extremely painful and presents again to the hospital where he is admitted. He has been managed with bladder irrigation. He currently has a 22-Slovenian 3-way Avendano catheter in place. Currently the Avendano catheter is draining clear urine on slow CBI. The patient has been started on tranexamic acid which appears to be helping somewhat as well as peridium which has been helping somewhat with his bladder spasms. PHYSICAL EXAMINATION Abdomen is soft and nontender. is normal. Avendano catheter in place, draining clear urine. He has been afebrile. Temp of 97.3, BP 124/57, pulse of 77 and respirations of 18. IMPRESSION AND PLAN: Castrate-resistant metastatic prostate cancer with chronic hematuria. We would continue the patient on CBI at this point. I would change his Avendano catheter tomorrow and irrigate him. Would continue him on medications as per oncology. If the patient continues to have clotting problems with his Avendano catheter if irrigation I will need to consider taking him back to the operating room, although he was recently cystoscoped and there was no active source of bleeding noted. However, I would attempt to take him back to see if there is a source of bleeding that can be cauterized and to cauterize him as needed because the patient continues to have this problem of gross hematuria and clots blocking the Avendano catheter. We will decide further course of action after the Avendano catheter is changed and his bladder is irrigated, and we will consider taking him back to the operating room, although the patient is in poor health and I would try to avoid the risk of anesthesia if possible given his overall medical condition. Eddie Louise MD
--- NOTE | 2017-05-16 00:48 | CON ---
DATE: 05/15/2017 REASON FOR CONSULTATION: Coronary artery disease, history of AICD, history of CABG, continuity of the care in Transitional Care Unit, admitted with hematuria. BRIEF CLINICAL HISTORY: This is an 87-year-old male with past medical history significant for coronary artery disease, status post PTCA, status post CABG, he is status post PTCA pre-CABG and post-CABG, status post AICD, chronic renal insufficiency, history of prostate CA, indwelling Avendano catheter, admitted because of hematuria. He was recently discharged, readmitted again to the medical floor and now the patient is transferred to the Transitional Care Unit for the continuity of the care. The patient claims that his bladder clogged and there is a spasm in the bladder and lower abdominal pain. Now, the patient has continuous bladder irrigation and is on Pyridium. Feeling better. PAST MEDICAL HISTORY: Significant for COPD, CAD, CABG, pre and post CABG, PTCA, AICD, recent generator change for AICD two months ago, history of prostate cancer, history of indwelling Avendano catheter, history of chronic kidney disease, hypertension, paroxysmal atrial fibrillation, history of DVT. At one point, the patient was on Pradaxa, discontinued because of the hematuria, history of COPD, history of non-STEMI, history of chronic renal insufficiency. Medical treatment recommended for non-STEMI because of underlying comorbidity and renal insufficiency. Recent cardiac work up as follows last echo on 12/20/2016, ejection fraction 45%, moderate mitral regurgitation, [id number] tricuspid regurgitation, arterial pressure of 43. CURRENT MEDICATIONS: The patient at home was taking prednisone, tranexamic acid for hematuria, Protonix, levothyroxine, Lasix, Lanoxin, Lipitor, and amiodarone. REVIEW OF SYSTEMS: As per HPI. PHYSICAL EXAMINATION VITAL SIGNS: Temperature afebrile, heart is 77, blood pressure 124/57. HEENT: PERRLA. Extraocular muscles are intact. NECK: Supple. No carotid bruit or thyromegaly. CHEST: Clear to auscultation. HEART: S1 and S2 regular. ABDOMEN: Soft. EXTREMITIES: Clubbing and cyanosis negative. LABORATORY DATA: Blood workup as follows: WBC 12.1, hemoglobin 10.7, hematocrit 32.9, platelet count 211. Chemistry shows sodium 134, potassium 4.3, chloride 95, carbon dioxide 33, anion gap of 10, BUN 31, creatinine 1.3. Total protein 5.8, albumin 3.3, albumin and globulin ratio 1.3. IMPRESSION: An 87-year-old male with a past medical history significant for bladder carcinoma admitted with hematuria, bladder spasm, catheter clogged, and transferred to intensive care unit for continuity of the care, history of chronic obstructive pulmonary disease, history of congestive heart failure, history of cardiomyopathy ischemic, status post pre and post coronary artery bypass graft, percutaneous transluminal coronary angioplasty status post coronary artery bypass grafting, status post mitral valve regurgitation, history of paroxysmal atrial fibrillation, history of deep venous thrombosis in the past with chronic renal insufficiency. At one point, the patient was on Pradaxa, discontinued because of hematuria. RECOMMENDATIONS: Continue amiodarone. Continue DuoNeb nebulizer treatment. Continue insulin. Continue digoxin. Continue general diuretics. Continue atorvastatin. Continue prednisone. Continue DuoNeb nebulizer to Xopenex to prevent increase of rapid ventricular rate because the patient is not a candidate for long-term anticoagulation. We will follow with you. Thank you Dr. Polk for providing us opportunity in taking care of the patientPerry. Mely Chavarria MD
[2017-05-16] MEDS: Pantoprazole 40 mg EC Tab PO SCH (05:09)
[2017-05-16] MEDS: Levothyroxine 100 MCG TAB PO SCH (05:09)
[2017-05-16 05:32] LABS: BASO # 0.03 K/mm3 (0.0-2.0); BASO % 0.3 % (0.0-3.0); EOS # 0.1 (0.0-0.7); GRAN # 7.93 (1.4-6.5); GRAN % 77.7 % (50.0-68.0); HEMOGLOBIN 10.3 gm/dL (14.0-18.0); LYMPH # 1.1 (1.2-3.4); LYMPH % 10.3 % (22.0-35.0); MEAN CELL VOLUME 86.6 fL (80.0-105.0); MEAN CORPUSCULAR HEMOGLOBIN 27.7 pg (25.0-35.0); MEAN PLATELET VOLUME 9.5 fl (7.0-11.0); MONO # 1.1 (0.1-0.6); MONO % 10.7 % (1.0-6.0); PLATELET COUNT 188 10^3/uL (120.0-450.0); RBC 3.72 10^6/uL (3.5-6.1); RED CELL DISTRIBUTION WIDTH 14.7 % (11.5-14.5); WHITE BLOOD COUNT 10.2 10^3/ul (4.5-11.0)
[2017-05-16 06:22] LABS: ALB/GLOB RATIO 1.3 (1.1-1.8); ALBUMIN 3.1 g/dL (3.0-4.8); ALT/SGPT 63 U/L (7-56); AST/SGOT 47 U/L (15-59); BLOOD UREA NITROGEN 32 mg/dL (7-21); CALCIUM 8.5 mg/dL (8.4-10.5); GFR AFRICAN-AMERICAN > 60; GFR NON-AFRICAN AMERICAN > 60
[2017-05-16] MEDS: Levalbuterol 0.63 MG/3 ML Inhal Soln UD IH PRN (07:27)
--- NOTE | 2017-05-16 07:50 | PN ---
DATE: 05/16/2017 SUBJECTIVE: The patient appears comfortable this morning. He is not short of breath at rest. PHYSICAL EXAMINATION VITAL SIGNS: Temperature 98.2, pulse 66, respirations 18, blood pressure 124/65. Oxygen saturation on nasal cannula is 99%. HEENT: Normocephalic, atraumatic. NECK: No JVD. CARDIOVASCULAR: Systolic ejection murmur at the lower left sternal border. No S3 gallop. LUNGS: Decreased breath sounds at the bases, minimal/less rhonchi. No wheezing. EXTREMITIES: Positive for edema. No cyanosis, no clubbing. Calves are nontender to palpation. GASTROINTESTINAL: Abdomen is soft, nontender, nondistended. Bowel sounds are positive. SKIN: No acute rash. NEUROLOGIC: Exam is limited at the present time. IMPRESSION: 1. Advanced prostate cancer. 2. Recurrent hematuria. 3. Chronic obstructive pulmonary disease. 4. Coronary artery disease. 5. Chronic renal disease. 6. Chronic anemia. PLAN: The patient appears more comfortable this morning. He is not short of breath at rest. He states he is feeling better overall. On physical exam, there is definitely less bronchospasm noted. I will continue the current nebulizer treatments and low-dose oral steroids for now. Inputs by genitourinary and renal are noted. The patient did see Dr. Louise yesterday. Repeat a.m. labs are pending. Clinical status of the patient is certainly improved compared to last week. However, the future status/prognosis for this very elderly patient remains - very guarded. All are aware. I will discuss the above with the attending physician. Kwadwo Arias MD MTDD
--- NOTE | 2017-05-16 08:13 | CP.PCM.PN ---
Subjective - Date & Time of Evaluation Date of Evaluation: 05/16/17 Time of Evaluation: 07:50 - Subjective Subjective: Patient with dark red fluid in schroeder catheter. He complains of bladder spasms on and off. Objective - Vital Signs/Intake and Output Vital Signs (last 24 hours): Temp Pulse Resp BP Pulse Ox 98.2 F 66 18 124/65 99 05/15/17 15:59 05/15/17 15:59 05/15/17 15:59 05/15/17 17:36 05/15/17 15:59 - Medications Medications: Current Medications Amiodarone HCl (Cordarone) 200 mg PO DAILY JEANA PRN Reason: Protocol Last Admin: 05/15/17 09:59 Dose: 200 mg Atorvastatin Calcium (Lipitor) 10 mg PO DIN JEANA PRN Reason: Protocol Last Admin: 05/15/17 17:35 Dose: 10 mg Digoxin (Lanoxin) 0.125 mg PO 1400 JEANA PRN Reason: Protocol Last Admin: 05/15/17 14:20 Dose: 0.125 mg Docusate Sodium (Colace) 100 mg PO BID JEANA PRN Reason: Protocol Last Admin: 05/15/17 17:35 Dose: 100 mg Doxercalciferol (Hectorol) 0.5 mcg PO DAILY JEANA PRN Reason: Protocol Last Admin: 05/15/17 10:00 Dose: 0.5 mcg Furosemide (Lasix) 40 mg PO BID JEANA PRN Reason: Protocol Last Admin: 05/15/17 17:36 Dose: 40 mg Hydromorphone HCl (Dilaudid) 1 mg IVP Q4H PRN; Protocol PRN Reason: Pain, moderate (4-7) Last Admin: 05/13/17 15:39 Dose: 1 mg Levalbuterol HCl (Xopenex) 0.63 mg IH [id number] PRN PRN Reason: Shortness of Breath Last Admin: 05/16/17 07:27 Dose: 0.63 mg Levothyroxine Sodium (Synthroid) 100 mcg PO 0600 JEANA PRN Reason: Protocol Last Admin: 05/16/17 05:09 Dose: 100 mcg Montelukast Sodium (Singulair) 10 mg PO DAILY JEANA PRN Reason: Protocol Last Admin: 05/15/17 10:02 Dose: 10 mg Tranexamic Acid 650 (Mg) 2 tab PO BID JEANA Last Admin: 05/15/17 17:37 Dose: 2 tab Ondansetron HCl (Zofran Inj) 4 mg IVP Q4H PRN; Protocol PRN Reason: Nausea/Vomiting Last Admin: 05/14/17 11:50 Dose: 4 mg Pantoprazole Sodium (Protonix Ec Tab) 40 mg PO 0600 JEANA PRN Reason: Protocol Last Admin: 05/16/17 05:09 Dose: 40 mg Phenazopyridine HCl (Pyridium) 100 mg PO PC PRN PRN Reason: Bladder Spasm Polyethylene Glycol (Miralax) 17 gm PO BID JEANA PRN Reason: Protocol Last Admin: 05/15/17 17:37 Dose: 17 gm Prednisone (Prednisone Tab) 10 mg PO DAILY JEANA PRN Reason: Protocol Last Admin: 05/15/17 10:02 Dose: 10 mg Tramadol HCl (Ultram) 50 mg PO TID PRN; Protocol PRN Reason: Pain Last Admin: 05/15/17 16:00 Dose: 50 mg - Labs Labs: 05/16/17 05:10 05/16/17 05:10 - Head Exam Head Exam: ATRAUMATIC, NORMOCEPHALIC - Respiratory Exam Respiratory Exam: Clear to Ausculation Bilateral, NORMAL BREATHING PATTERN - Cardiovascular Exam Cardiovascular Exam: +S1, +S2 - GI/Abdominal Exam GI & Abdominal Exam: Soft, Normal Bowel Sounds - Neurological Exam Neurological Exam: Alert, Awake, Oriented x3 Assessment and Plan - Assessment and Plan (Free Text) Assessment: Hematuria Prostate ca with mets to lymph nodes in abdomen COPD CAD Hypothyroidism HTN Arthritis Plan: Patient is seen this morning with dark red fluid in schroeder catheter bag. Patient is on pyridium so it is difficult to tell if this is dark red blood. Will discontinue pyridium. continue bladder irrigation. Patient seen by Dr. Louise yesterday. change of schroeder catheter today. Present schroeder catheter has been in place for 5 weeks as per the patient. continue maintenance medications.
[2017-05-16] MEDS: Insulin Human NPH/Reg 70/30 Vial(3 ml) SC SCH ×4 (08:27→22:49)
[2017-05-16] MEDS: POLYETHYLENE GLYCOL 3350 17 GM/Dose PACKET PO SCH ×2 (10:33→17:40)
--- NOTE | 2017-05-16 11:29 | PN ---
DATE: 05/16/2017 SUBJECTIVE: The patient has a history of Castrate-resistant prostate cancer. He has had episodes of significant gross hematuria. Currently has a 3-way Avendano that has been in for 4 to 5 weeks. According to the nurses, the catheter was not draining through the night and clots came out when irrigated. His Avendano bag was bloody. I removed the 3-way Avendano that was currently in. I placed a new 22-Hebrew 3-way Avendano and spent over 30 minutes irrigating him to get all the clots that appeared to be in the bladder out. When I finished, the urine return was crystal clear. All irrigant fluid that was irrigated was clear when the CBI was reattached. It was running crystal clear. He had no fever, chills. The catheter was secured to his thigh. He was much more comfortable and the Avendano catheter hopefully will be able to discontinue the CBI if he remains clear for several days. Leonides Masterson MD
--- NOTE | 2017-05-16 12:45 | CP.PCM.PN ---
<Barrington Camarena - Last Filed: 05/16/17 12:39> Subjective - Date & Time of Evaluation Date of Evaluation: 05/16/17 Time of Evaluation: 10:05 - Subjective Subjective: PGY [address] Carballo: Pt seen and examined at bedside. No acute events overnight. Pt had 1 episode of bladder spasms. C/o hematuria. He denies any fever, chills, n/v/d, cp, sob, abd pain. Objective - Vital Signs/Intake and Output Vital Signs (last 24 hours): Temp Pulse Resp BP Pulse Ox 98.7 F 70 20 132/60 97 05/16/17 10:18 05/16/17 10:31 05/16/17 10:18 05/16/17 10:32 05/16/17 10:18 - Medications Medications: Current Medications Amiodarone HCl (Cordarone) 200 mg PO DAILY JEANA PRN Reason: Protocol Last Admin: 05/16/17 10:31 Dose: 200 mg Atorvastatin Calcium (Lipitor) 10 mg PO DIN JEANA PRN Reason: Protocol Last Admin: 05/15/17 17:35 Dose: 10 mg Digoxin (Lanoxin) 0.125 mg PO 1400 JEANA PRN Reason: Protocol Last Admin: 05/15/17 14:20 Dose: 0.125 mg Docusate Sodium (Colace) 100 mg PO BID JEANA PRN Reason: Protocol Last Admin: 05/15/17 17:35 Dose: 100 mg Doxercalciferol (Hectorol) 0.5 mcg PO DAILY JEANA PRN Reason: Protocol Last Admin: 05/16/17 10:32 Dose: 0.5 mcg Furosemide (Lasix) 40 mg PO BID JEANA PRN Reason: Protocol Last Admin: 05/16/17 10:32 Dose: 40 mg Hydromorphone HCl (Dilaudid) 1 mg IVP Q4H PRN; Protocol PRN Reason: Pain, moderate (4-7) Last Admin: 05/13/17 15:39 Dose: 1 mg Levalbuterol HCl (Xopenex) 0.63 mg IH [id number] PRN PRN Reason: Shortness of Breath Last Admin: 05/16/17 07:27 Dose: 0.63 mg Levothyroxine Sodium (Synthroid) 100 mcg PO 0600 JEANA PRN Reason: Protocol Last Admin: 05/16/17 05:09 Dose: 100 mcg Montelukast Sodium (Singulair) 10 mg PO DAILY JEANA PRN Reason: Protocol Last Admin: 05/16/17 10:33 Dose: 10 mg Tranexamic Acid 650 (Mg) 2 tab PO BID JEANA Last Admin: 05/16/17 10:33 Dose: 2 tab Ondansetron HCl (Zofran Inj) 4 mg IVP Q4H PRN; Protocol PRN Reason: Nausea/Vomiting Last Admin: 05/14/17 11:50 Dose: 4 mg Pantoprazole Sodium (Protonix Ec Tab) 40 mg PO 0600 JEANA PRN Reason: Protocol Last Admin: 05/16/17 05:09 Dose: 40 mg Polyethylene Glycol (Miralax) 17 gm PO BID JEANA PRN Reason: Protocol Last Admin: 05/16/17 10:33 Dose: 17 gm Prednisone (Prednisone Tab) 10 mg PO DAILY JEANA PRN Reason: Protocol Last Admin: 05/16/17 10:33 Dose: 10 mg Tramadol HCl (Ultram) 50 mg PO TID PRN; Protocol PRN Reason: Pain Last Admin: 05/15/17 16:00 Dose: 50 mg - Labs Labs: 05/16/17 05:10 05/16/17 05:10 - Constitutional Appears: No Acute Distress - Head Exam Head Exam: ATRAUMATIC, NORMAL INSPECTION, NORMOCEPHALIC - Eye Exam Eye Exam: EOMI, Normal appearance, PERRL Pupil Exam: NORMAL ACCOMODATION, PERRL - ENT Exam ENT Exam: Mucous Membranes Moist, Normal Exam - Neck Exam Neck Exam: Full ROM, Normal Inspection. absent: Lymphadenopathy - Respiratory Exam Respiratory Exam: Clear to Ausculation Bilateral, NORMAL BREATHING PATTERN. absent: Wheezes - Cardiovascular Exam Cardiovascular Exam: REGULAR RHYTHM, +S1, +S2. absent: Murmur - GI/Abdominal Exam GI & Abdominal Exam: Soft, Normal Bowel Sounds. absent: Distended, Tenderness - Extremities Exam Extremities Exam: Normal Capillary Refill. absent: Calf Tenderness, Joint Swelling, Pedal Edema - Back Exam Back Exam: NORMAL INSPECTION - Neurological Exam Neurological Exam: Alert, Awake, CN II-XII Intact, Normal Gait, Oriented x3 - Psychiatric Exam Psychiatric exam: Normal Affect, Normal Mood - Skin Skin Exam: Dry, Intact, Normal Color, Warm Assessment and Plan - Assessment and Plan (Free Text) Assessment: 87 M with history of stage 4 castrate resistant prostate cancer, chronic heart failure, COPD, DMII, coronary artery disease, hypothyroidism, and arthritis who was admitted for persistent hematuria currently with continuous bladder irrigation, also with bladder spasms. In TCU for cont rehab. Plan: - Cont medical management - Consider starting Urispas for bladder spasms - F/u urology recs - changed the catheter today - Cont bladder irrigation - Cont Pyridium and Transexamic acid - Pain control with Dilaudid - Prednisone 10mg daily (was previously on Zytiga but not tolerated) - GI and DVT ppx - PT and OT Case and plan was seen, reviewed and discussed in detail with Dr Carballo. <Rogelio Carballo P - Last Filed: 05/21/17 10:45> Objective - Vital Signs/Intake and Output Vital Signs (last 24 hours): Temp Pulse Resp BP Pulse Ox 97.6 F 72 18 128/60 96 05/20/17 10:00 05/20/17 10:00 05/20/17 10:00 05/20/17 10:56 05/20/17 10:00 - Labs Labs: 05/20/17 06:00 05/20/17 06:00 Attending/Attestation - Attestation I have personally seen and examined this patient.: Yes I have fully participated in the care of the patient.: Yes I have reviewed all pertinent clinical information, including history, physical exam and plan: Yes
[2017-05-16] MEDS: Digoxin 125 mcg (0.125 mg) Tab PO SCH (13:05)
--- NOTE | 2017-05-16 13:36 | PN ---
DATE: 05/16/2017 REASON FOR CONSULTATION: Followup coronary artery disease, history of AICD, history of CABG, continuity of the care in Transitional Care Unit, admitted with hematuria, on Pyridium. SUBJECTIVE: The patient denies any chest pain, denies any shortness of breath, but complaint of lower abdominal pain. PHYSICAL EXAMINATION: GENERAL: Appears mild discomfort, Avendano catheter draining dark urine probably secondary to Pyridium. VITAL SIGNS: Temperature afebrile, heart rate 72, blood pressure 122/64. HEENT: PERRLA. Extraocular muscles are intact. NECK: Supple. No carotid bruit or thyromegaly. HEART: S1 and S2 regular. CHEST: Clear to auscultation. ABDOMEN: Soft. EXTREMITIES: Clubbing and cyanosis negative. LABORATORY DATA: Blood workup as follows; WBC 10.8, hemoglobin 10.8, hematocrit 32.2, platelet count 188, CHEMISTRY: Sodium 135, potassium 4, chloride 94, carbon dioxide 34, anion gap of 11, BUN 32, creatinine 1.1, total protein 5.8, albumin 3.3, albumin and globulin ratio 1.3. IMPRESSION: An 87-year-old male with a past medical history significant for coronary artery disease, history of percutaneous transluminal coronary angioplasty, pre-coronary artery bypass graft, status post percutaneous transluminal coronary angioplasty post-coronary artery bypass graft, status post coronary artery bypass graft, mitral valve replacement, paroxysmal atrial fibrillation, diabetes, hypertension, hyperlipidemia, carcinoma of the prostate, hematuria, indwelling Avendano catheter, admitted with clogging of the lower abdominal pain and hematuria. The patient is currently on Pyridium, so unable to see may be the patient is hematuric or not, but the patient continuous bladder irrigation, still complains of lower abdominal pain, history of paroxysmal atrial fibrillation, normal sinus, history of deep venous thrombosis, at one point the patient was on Pradaxa, off Pradaxa because of hematuria. Currently the patient is hematuria is relatively appears to be controlled. History of non-ST elevation myocardial infarction, asymptomatic, decided to treat medically. History of chronic renal insufficiency. RECOMMENDATIONS: Continue amiodarone, continue DuoNeb nebulizer treatment p.r.n., continue insulin, continue digoxin, continue gentle diuretics, continue atorvastatin. Change DuoNeb nebulizer treatment to Xopenex to prevent going back into AFib. Continue gentle Lasix. I will follow with you. Thank you Dr. Polk for providing the opportunity in taking care of the patient Ziggy Amador. The patient is currently on 100 mcg of levothyroxine. We will periodically check the TSH. We will followup with you. Mely Chavarria MD
--- NOTE | 2017-05-16 18:44 | PN ---
DATE: 05/16/2017 SUBJECTIVE: The patient is currently seen lying comfortable supine in bed in the TCU. Bladder irrigation continues, urine is red tinged, but not overtly bloody. He appears to be in good spirits. He was seen by the urologist earlier in the day. MEDICATIONS: Medication list reviewed. The patient is currently on Colace, Cordarone, Dilaudid, Hectorol, Lenoxin, Lasix, Lipitor, MiraLAX, prednisone, Protonix, Singulair, Synthroid, tranexamic acid, Tramadol, Xopenex, and Zofran p.r.n. PHYSICAL EXAMINATION: VITAL SIGNS: Blood pressure 143/63, temperature 98.3, respiratory rate 20, with a pulse of 67. HEENT: Shows him to be normocephalic atraumatic. Conjunctiva are pink. Sclerae nonicteric. NECK: Supple. No neck vein distention. CHEST: Clear to auscultation and percussion. No rales, no rhonchi, and no wheezing. CARDIOVASCULAR: Shows S1 and S2, which are normal. Aortic stenosis, mitral regurgitation, tricuspid regurgitation. No S3, no S4, and no rub. ABDOMEN: Soft. Bowel sounds normal. No rebound, no guarding, and no masses. GENITOURINARY: Indwelling Avendano catheter with bladder irrigation connected. Urine in the collecting bag is pink tinged, but no gross hematuria. EXTREMITIES: No cyanosis, clubbing, or edema. LABORATORY DATA AND IMAGING: White blood cell count 10.2, hemoglobin 10.3, platelet count is 188,000. Chemistries, sodium 135, potassium 4.0, chloride 94, CO2 of 34, BUN is 32 with a creatinine of 1.1. Glucose 66, ALT mildly elevated at 63, and albumin is 3.1. His maximum BUN during hospitalization was 47, down to 32, maximum creatinine was 1.5 down to 1.1. ASSESSMENT: 1. Acute renal failure, resolving. The patient had a nonfunctioning Avendano catheter. He appears to be doing better. His BUN and creatinine are approaching baseline levels. He does remain mildly prerenal on diuretic therapy and steroid therapy. 2. Baseline chronic kidney disease stage 2 with a baseline creatinine in the low 1 range. 3. History of metastatic prostate cancer. 4. History of arteriosclerotic heart disease. 5. History of paroxysmal atrial fibrillation. 6. History of valvular heart disease. 7. History of coronary artery bypass graft surgery. 8. History of percutaneous transluminal coronary angioplasty. 9. History of implantable AICD, all appear to be stable. 10. History of congestive heart failure. The patient continues on diuretic therapy. He is off all IV fluid hydration. He appears to be in fluid balance. 11. History of chronic obstructive pulmonary disease, currently stable on current medical therapy. 12. History of hypothyroidism, stable on thyroid replacement therapy. 13. Past history of a deep venous thrombosis. 14. Status post recent Klebsiella urinary tract infection. PLAN: 1. As per Dr. Masterson' note, we will continue bladder irrigation for the next several days. If his urine remains clear, bladder irrigation may be discontinued. 2. No choice but to continue diuretic therapy in light of his history of CHF. 3. Continue to monitor labs on a routine basis in the TCU. Choco White MD
[2017-05-17] MEDS: Pantoprazole 40 mg EC Tab PO SCH (05:33)
[2017-05-17] MEDS: Levothyroxine 100 MCG TAB PO SCH (05:33)
[2017-05-17 05:55] LABS: BASO # 0.01 K/mm3 (0.0-2.0); BASO % 0.1 % (0.0-3.0); EOS # 0.1 (0.0-0.7); EOS % 0.9 % (1.5-5.0); GRAN # 6.65 (1.4-6.5); GRAN % 78.2 % (50.0-68.0); HEMOGLOBIN 10.1 gm/dL (14.0-18.0); LYMPH # 0.7 (1.2-3.4); MEAN CELL VOLUME 86.6 fL (80.0-105.0); MEAN CORPUSCULAR HEMOGLOBIN 28.1 pg (25.0-35.0); MEAN CORPUSCULAR HGB CONC 32.5 g/dl (31.0-37.0); MEAN PLATELET VOLUME 9.4 fl (7.0-11.0); MONO # 1.1 (0.1-0.6); MONO % 12.8 % (1.0-6.0); PLATELET COUNT 166 10^3/uL (120.0-450.0); RBC 3.59 10^6/uL (3.5-6.1); RED CELL DISTRIBUTION WIDTH 14.8 % (11.5-14.5); WHITE BLOOD COUNT 8.5 10^3/ul (4.5-11.0)
[2017-05-17 06:06] LABS: ALB/GLOB RATIO 1.1 (1.1-1.8); ALBUMIN 2.9 g/dL (3.0-4.8); ALT/SGPT 60 U/L (7-56); AST/SGOT 49 U/L (15-59); BLOOD UREA NITROGEN 31 mg/dL (7-21); CALCIUM 8.3 mg/dL (8.4-10.5); GFR AFRICAN-AMERICAN > 60; GFR NON-AFRICAN AMERICAN 57; MAGNESIUM 2.2 mg/dL (1.7-2.2)
[2017-05-17] MEDS ORDERED: Levalbuterol 0.63 MG/3 ML Inhal Soln UD IH PRN (07:01)
[2017-05-17] MEDS: Levalbuterol 0.63 MG/3 ML Inhal Soln UD IH SCH ×3 (07:38→20:54)
--- NOTE | 2017-05-17 08:17 | PN ---
DATE: 05/17/2017 SUBJECTIVE: The patient appears comfortable this morning. He is not short of breath at rest. PHYSICAL EXAMINATION VITAL SIGNS: Temperature 98.3, pulse 67, respirations 18/20, blood pressure 143/61. Oxygen saturation on nasal cannula is 96%. HEENT: Normocephalic, atraumatic. NECK: No JVD. CARDIOVASCULAR: Systolic ejection murmur at the lower left sternal border. No S3 gallop. LUNGS: Decreased breath sounds at the bases, minimal rhonchi. No wheezing. EXTREMITIES: Positive for edema. No cyanosis, no clubbing. Calves are nontender to palpation. GASTROINTESTINAL: Abdomen is soft, nontender, nondistended. Bowel sounds are positive. SKIN: No acute rash. NEUROLOGIC: Exam is limited at the present time. IMPRESSION: 1. Advanced prostate cancer. 2. Recurrent hematuria. 3. Chronic obstructive pulmonary disease. 4. Coronary artery disease. 5. Chronic renal disease. 6. Chronic anemia. PLAN: The patient appears comfortable this morning. He is not short of breath at rest. He has less bladder spasms. He does state to feeling better overall. On physical exam, his bronchospasm is less. In addition, the oxygen saturation on nasal cannula is 96% to 97%. The patient was changed to as needed(PRN) nebulizer treatments. The patient is now requesting that he receives his nebulizer treatments every 6 hours-as originally ordered. I will change the order this morning. I would continue with the cardiology and renal evaluations. Inputs are noted. Clinical status of the patient is certainly improved-compared to last week. However, again, the overall status/prognosis for this very elderly patient-with multiple serious medical issues-remains very guarded. All are aware. I will discuss the above with the attending physician. Kwadwo Arias MD ANNABELLA
[2017-05-17] MEDS: Insulin Human NPH/Reg 70/30 Vial(3 ml) SC SCH ×4 (08:30→22:13)
[2017-05-17] MEDS: POLYETHYLENE GLYCOL 3350 17 GM/Dose PACKET PO SCH ×2 (09:02→17:43)
--- NOTE | 2017-05-17 10:52 | CP.PCM.PN ---
<Barrington Camarena - Last Filed: 05/17/17 10:48> Subjective - Date & Time of Evaluation Date of Evaluation: 05/17/17 Time of Evaluation: 09:10 - Subjective Subjective: PGY [address] Carballo: Pt seen and examined at bedside. No acute events overnight. Pt still occasional bladder spasms. Denies any hematuria after yesterday catheter was changed and irrigated. Doing well with PT. He denies any fever, chills, n/v/d, cp, sob, abd pain. Objective - Vital Signs/Intake and Output Vital Signs (last 24 hours): Temp Pulse Resp BP Pulse Ox 98.8 F 67 18 148/71 97 05/17/17 06:00 05/17/17 09:00 05/17/17 06:00 05/17/17 09:01 05/17/17 06:00 Intake and Output: 05/17/17 05/17/17 06:59 18:59 Intake Total 0 Balance 0 - Medications Medications: Current Medications Amiodarone HCl (Cordarone) 200 mg PO DAILY JEANA PRN Reason: Protocol Last Admin: 05/17/17 09:00 Dose: 200 mg Atorvastatin Calcium (Lipitor) 10 mg PO DIN JEANA PRN Reason: Protocol Last Admin: 05/16/17 17:41 Dose: 10 mg Digoxin (Lanoxin) 0.125 mg PO 1400 JEANA PRN Reason: Protocol Last Admin: 05/16/17 13:05 Dose: 0.125 mg Docusate Sodium (Colace) 100 mg PO BID JEANA PRN Reason: Protocol Last Admin: 05/17/17 08:59 Dose: 100 mg Doxercalciferol (Hectorol) 0.5 mcg PO DAILY JEANA PRN Reason: Protocol Last Admin: 05/17/17 09:01 Dose: 0.5 mcg Furosemide (Lasix) 40 mg PO BID JEANA PRN Reason: Protocol Last Admin: 05/17/17 09:01 Dose: 40 mg Hydromorphone HCl (Dilaudid) 1 mg IVP Q4H PRN; Protocol PRN Reason: Pain, moderate (4-7) Last Admin: 05/13/17 15:39 Dose: 1 mg Levalbuterol HCl (Xopenex) 0.63 mg IH [id number] JEANA Last Admin: 05/17/17 07:38 Dose: 0.63 mg Levalbuterol HCl (Xopenex) 0.63 mg IH Q2 PRN PRN Reason: Shortness of Breath Levothyroxine Sodium (Synthroid) 100 mcg PO 0600 JEANA PRN Reason: Protocol Last Admin: 05/17/17 05:33 Dose: 100 mcg Montelukast Sodium (Singulair) 10 mg PO DAILY JEANA PRN Reason: Protocol Last Admin: 05/17/17 09:02 Dose: 10 mg Tranexamic Acid 650 (Mg) 2 tab PO BID JEANA Last Admin: 05/17/17 09:03 Dose: 2 tab Ondansetron HCl (Zofran Inj) 4 mg IVP Q4H PRN; Protocol PRN Reason: Nausea/Vomiting Last Admin: 05/14/17 11:50 Dose: 4 mg Pantoprazole Sodium (Protonix Ec Tab) 40 mg PO 0600 [facility] PRN Reason: Protocol Last Admin: 05/17/17 05:33 Dose: 40 mg Polyethylene Glycol (Miralax) 17 gm PO BID JEANA PRN Reason: Protocol Last Admin: 05/17/17 09:02 Dose: 17 gm Prednisone (Prednisone Tab) 10 mg PO DAILY JEANA PRN Reason: Protocol Last Admin: 05/17/17 09:02 Dose: 10 mg Tramadol HCl (Ultram) 50 mg PO TID PRN; Protocol PRN Reason: Pain Last Admin: 05/17/17 08:58 Dose: 50 mg - Labs Labs: 05/17/17 05:40 05/17/17 05:40 - Constitutional Appears: No Acute Distress - Head Exam Head Exam: ATRAUMATIC, NORMAL INSPECTION, NORMOCEPHALIC - Eye Exam Eye Exam: EOMI, Normal appearance, PERRL Pupil Exam: NORMAL ACCOMODATION, PERRL - ENT Exam ENT Exam: Mucous Membranes Moist, Normal Exam - Neck Exam Neck Exam: Full ROM, Normal Inspection. absent: Lymphadenopathy - Respiratory Exam Respiratory Exam: Clear to Ausculation Bilateral, NORMAL BREATHING PATTERN. absent: Wheezes - Cardiovascular Exam Cardiovascular Exam: REGULAR RHYTHM, RRR, +S1, +S2. absent: Murmur - GI/Abdominal Exam GI & Abdominal Exam: Soft, Normal Bowel Sounds. absent: Distended, Tenderness - Extremities Exam Extremities Exam: absent: Calf Tenderness - Back Exam Back Exam: absent: CVA tenderness (L), paraspinal tenderness - Neurological Exam Neurological Exam: Alert, Awake, Oriented x3 - Psychiatric Exam Psychiatric exam: Normal Affect, Normal Mood - Skin Skin Exam: Dry, Intact, Normal Color, Warm Assessment and Plan - Assessment and Plan (Free Text) Assessment: 87 M with history of stage 4 castrate resistant prostate cancer, chronic heart failure, COPD, DMII, coronary artery disease, hypothyroidism, and arthritis who was admitted for persistent hematuria currently with continuous bladder irrigation, also with bladder spasms. In TCU for cont rehab. Plan: - Cont medical management - Consider starting Urispas vs oxybutnin for bladder spasms. But pt spasms have mostly resolved - so will cont current management - F/u urology recs - changed the catheter yesterday cont bladder irrigation - D/gordo Pyridium and Transexamic acid - Pain control with Dilaudid - Prednisone 10mg daily (was previously on Zytiga but not tolerated) - GI and DVT ppx - PT and OT Case and plan was seen, reviewed and discussed in detail with Dr Carballo. <Rogelio Carballo P - Last Filed: 05/21/17 10:36> Objective - Vital Signs/Intake and Output Vital Signs (last 24 hours): Temp Pulse Resp BP Pulse Ox 97.6 F 72 18 128/60 96 05/20/17 10:00 05/20/17 10:00 05/20/17 10:00 05/20/17 10:56 05/20/17 10:00 - Labs Labs: 05/20/17 06:00 05/20/17 06:00 Attending/Attestation - Attestation I have personally seen and examined this patient.: Yes I have fully participated in the care of the patient.: Yes I have reviewed all pertinent clinical information, including history, physical exam and plan: Yes
--- NOTE | 2017-05-17 11:55 | PN ---
DATE: 05/17/2017 SUBJECTIVE: The patient is in the Transitional Care Unit, [facility] in [place]; Room 315, bed 1. He was admitted with urinary retention, hematuria, abdominal pain. The patient has had intractable continuous bleeding from the bladder. Yesterday, Dr. Masterson, the urologist saw the patient and did change the schroeder catheter because patient has urethral stricture. The patient also had continuous irrigation of the bladder. PHYSICAL EXAMINATION VITAL SIGNS: Pulse is 67, blood pressure 140/60, respirations are 20. HEART: Normal sinus rhythm. Patient has a pacemaker. CENTRAL NERVOUS SYSTEM: Within normal limits. LUNGS: Clear. ABDOMEN: Soft. Tenderness present in the abdomen diffusely, but no localizing signs. MEDICATIONS: Would be continued. The list of which was reviewed and it is the same as it was yesterday. Patient's Pyridium has been discontinued. Patient to continue the medications for his diabetes, hypertension, chronic lung disease, hypothyroidism, coronary artery disease, congestive heart failure, and patient is taking tranexamic acid for bleeding. ASSESSMENT AND PLAN: Prognosis is guarded. Condition of the patient is improved since yesterday. We will followup for further care. Giselle Polk MD MTDD
--- NOTE | 2017-05-17 12:13 | PN ---
DATE: 05/17/2017 REASON FOR FOLLOWUP: Coronary artery disease, history of AICD, history of CABG, continuity of care in the transitional care unit, admitted with hematuria. SUBJECTIVE: Denies any chest pain, denies any shortness of breath, complained of lower abdominal pain. Yesterday, Avendano catheter was changed. Now the catheter was draining urine. OBJECTIVE: GENERAL: Sitting on the bed, having the breakfast, complaining of mild abdominal pain. VITAL SIGNS: Temperature afebrile, heart rate 67, blood pressure 148/71. HEENT: PERRLA. Extraocular muscles intact. NECK: Supple. No carotid bruit. No thyromegaly. CHEST: Clear to auscultation. HEART: S1 and S2, regular. ABDOMEN: Soft. EXTREMITIES: Clubbing and cyanosis negative. LABORATORY DATA: Blood workup as follows; WBC 8.5, hemoglobin 10.1, hematocrit 31.1, platelet count 166. Chemistry shows sodium 134, potassium 4, chloride 95, carbon dioxide 33, anion gap of 10, BUN 31, creatinine 1.2, glucose 131, calcium 8.3, phosphorus 2.8, magnesium 2.2. TSH 3.42. Total protein 5.5, albumin and globulin ratio 1.1. IMPRESSION: An 87-year-old male with a past medical history significant extensively for coronary artery disease, multiple percutaneous transluminal coronary angioplasty, pre and post coronary artery bypass graft, status post coronary artery bypass graft, status post mitral valve repair, history of automatic implantable cardioverter defibrillator for ischemic cardiomyopathy, history of recently generator change by ICD 2 months ago, history of ischemic cardiomyopathy, history of paroxysmal atrial fibrillation, history of deep vein thrombosis in the past, history of prostate carcinoma with metastasis, history of 3-way Avendano catheter, indwelling Avendano catheter, admitted with hematuria and clogging of the Avendano catheter, yesterday catheter was changed again and on continuous bladder irrigation, complaining of abdominal pain, continuous bladder irrigation status is relatively stable. Denies any chest pain, shortness of breath, any palpitation, history of renal insufficiency, anemia, protein calorie malnutrition not present on admission. RECOMMENDATION: Continue gentle diuretics. The patient going into congestive heart failure. Continue amiodarone for paroxysmal atrial fibrillation. At one point, the patient was on anticoagulation, but off anticoagulation because of hematuria. Continue digoxin. Continue atorvastatin. 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 We will follow currently to see if he is still stable. We will follow with you. Thank you for opportunity in taking care of the patient, Ziggy Amador. Mely Chavarria MD
[2017-05-17] MEDS: Digoxin 125 mcg (0.125 mg) Tab PO SCH (13:46)
--- NOTE | 2017-05-17 13:59 | PN ---
SUBJECTIVE: The patient is seen sitting in chair. He is awake. He is alert. He is comfortable. PHYSICAL EXAMINATION GENERAL: Elderly male, sitting in chair. VITAL SIGNS: Blood pressure 148/71, heart rate 67, respiratory rate 18, temperature 98.8. HEENT: Normocephalic, atraumatic, positive pallor. NECK: Supple, no JVD. LUNGS: Bilateral rhonchi, bilateral distant breath sounds. CARDIAC: S1, S2, regular rate and rhythm, no murmur, no rub. ABDOMEN: Obese, distended, soft, nontender, bowel sounds present. EXTREMITIES: No lower extremity edema. INTAKE AND OUTPUT: Not charted. LABORATORY DATA: WBC 8.5, hemoglobin 10, hematocrit 31, platelets 166. Sodium 134, potassium 4.0, chloride 95, CO2 33, BUN 31, creatinine 1.2, glucose 131, calcium 8.3, phosphorus 2.8, magnesium 2.2, albumin 2.9. CURRENT MEDICATIONS: Colace, amiodarone, Dilaudid, , Lanoxin, Lasix, Lipitor, MiraLax, prednisone, Protonix, Singulair, Synthroid, tranexamic acid, tramadol, Xopenex. ASSESSMENT AND PLAN: 1. Stable chronic kidney disease 2. Resolved acute kidney injury. 3. Persistent hematuria. 4. Metastatic prostate cancer. 5. 6. Congestive heart failure. 7. Chronic obstructive pulmonary disease. PLAN: 1. Continue bladder irrigation as per urology recommendations. 2. Pain management. 3. Physical therapy. Marianne Lozano MD
[2017-05-18] MEDS: Levalbuterol 0.63 MG/3 ML Inhal Soln UD IH SCH ×4 (01:17→20:10)
[2017-05-18] MEDS: Levothyroxine 100 MCG TAB PO SCH (05:05)
[2017-05-18] MEDS: Pantoprazole 40 mg EC Tab PO SCH (05:05)
[2017-05-18 06:50] LABS: BASO # 0.02 K/mm3 (0.0-2.0); BASO % 0.2 % (0.0-3.0); EOS # 0.1 (0.0-0.7); EOS % 0.8 % (1.5-5.0); GRAN # 7.85 (1.4-6.5); GRAN % 77.9 % (50.0-68.0); HEMOGLOBIN 9.8 gm/dL (14.0-18.0); LYMPH # 0.7 (1.2-3.4); LYMPH % 7.1 % (22.0-35.0); MEAN CORPUSCULAR HEMOGLOBIN 27.4 pg (25.0-35.0); MEAN CORPUSCULAR HGB CONC 31.8 g/dl (31.0-37.0); MEAN PLATELET VOLUME 9.3 fl (7.0-11.0); MONO # 1.4 (0.1-0.6); PLATELET COUNT 173 10^3/uL (120.0-450.0); RBC 3.58 10^6/uL (3.5-6.1); RED CELL DISTRIBUTION WIDTH 14.6 % (11.5-14.5); WHITE BLOOD COUNT 10.1 10^3/ul (4.5-11.0)
[2017-05-18 06:54] LABS: ALB/GLOB RATIO 1.1 (1.1-1.8); ALBUMIN 2.9 g/dL (3.0-4.8); ALT/SGPT 65 U/L (7-56); AST/SGOT 61 U/L (15-59); BLOOD UREA NITROGEN 33 mg/dL (7-21); CALCIUM 8.3 mg/dL (8.4-10.5); GFR AFRICAN-AMERICAN > 60; GFR NON-AFRICAN AMERICAN 57
[2017-05-18] MEDS: Insulin Human NPH/Reg 70/30 Vial(3 ml) SC SCH ×4 (07:30→22:32)
--- NOTE | 2017-05-18 08:06 | CP.PCM.PN ---
Subjective - Date & Time of Evaluation Date of Evaluation: 05/18/17 Time of Evaluation: 07:45 - Subjective Subjective: Patient is seen this morning in room 315 bed 1. He is complaining of back pain this morning. He says that he is having some difficulty walking. Objective - Vital Signs/Intake and Output Vital Signs (last 24 hours): Temp Pulse Resp BP Pulse Ox 98.5 F 63 18 142/74 100 05/17/17 16:00 05/17/17 16:00 05/17/17 16:00 05/17/17 17:42 05/17/17 16:00 - Medications Medications: Current Medications Amiodarone HCl (Cordarone) 200 mg PO DAILY JEANA PRN Reason: Protocol Last Admin: 05/17/17 09:00 Dose: 200 mg Atorvastatin Calcium (Lipitor) 10 mg PO DIN JEANA PRN Reason: Protocol Last Admin: 05/17/17 17:43 Dose: 10 mg Digoxin (Lanoxin) 0.125 mg PO 1400 JEANA PRN Reason: Protocol Last Admin: 05/17/17 13:46 Dose: 0.125 mg Docusate Sodium (Colace) 100 mg PO BID JEANA PRN Reason: Protocol Last Admin: 05/17/17 17:38 Dose: 100 mg Doxercalciferol (Hectorol) 0.5 mcg PO DAILY JEANA PRN Reason: Protocol Last Admin: 05/17/17 09:01 Dose: 0.5 mcg Furosemide (Lasix) 40 mg PO BID JEANA PRN Reason: Protocol Last Admin: 05/17/17 17:42 Dose: 40 mg Hydromorphone HCl (Dilaudid) 1 mg IVP Q4H PRN; Protocol PRN Reason: Pain, moderate (4-7) Last Admin: 05/13/17 15:39 Dose: 1 mg Levalbuterol HCl (Xopenex) 0.63 mg IH [id number] [id number] Last Admin: 05/18/17 07:42 Dose: 0.63 mg Levalbuterol HCl (Xopenex) 0.63 mg IH Q2 PRN PRN Reason: Shortness of Breath Levothyroxine Sodium (Synthroid) 100 mcg PO 0600 JEANA PRN Reason: Protocol Last Admin: 05/18/17 05:05 Dose: 100 mcg Montelukast Sodium (Singulair) 10 mg PO DAILY JEANA PRN Reason: Protocol Last Admin: 05/17/17 09:02 Dose: 10 mg Tranexamic Acid 650 (Mg) 2 tab PO BID JEANA Last Admin: 05/17/17 17:43 Dose: 2 tab Ondansetron HCl (Zofran Inj) 4 mg IVP Q4H PRN; Protocol PRN Reason: Nausea/Vomiting Last Admin: 05/14/17 11:50 Dose: 4 mg Pantoprazole Sodium (Protonix Ec Tab) 40 mg PO 0600 JEANA PRN Reason: Protocol Last Admin: 05/18/17 05:05 Dose: 40 mg Polyethylene Glycol (Miralax) 17 gm PO BID JEANA PRN Reason: Protocol Last Admin: 05/17/17 17:43 Dose: 17 gm Prednisone (Prednisone Tab) 10 mg PO DAILY JEANA PRN Reason: Protocol Last Admin: 05/17/17 09:02 Dose: 10 mg Tramadol HCl (Ultram) 50 mg PO TID PRN; Protocol PRN Reason: Pain Last Admin: 05/17/17 08:58 Dose: 50 mg - Labs Labs: 05/18/17 06:30 05/18/17 06:30 - Constitutional Appears: No Acute Distress - Head Exam Head Exam: ATRAUMATIC, NORMOCEPHALIC - Respiratory Exam Respiratory Exam: Clear to Ausculation Bilateral, NORMAL BREATHING PATTERN - Cardiovascular Exam Cardiovascular Exam: +S1, +S2 - GI/Abdominal Exam GI & Abdominal Exam: Soft - Neurological Exam Neurological Exam: Alert, Awake, Oriented x3 Assessment and Plan - Assessment and Plan (Free Text) Assessment: Hematuria Metastatic prostate cancer Back pain COPD Chronic heart failure Hypothyroidism CAD Plan: Patient is complaining of back pain and difficulty ambulating. continue physical therapy urine in schroeder catheter bag is reddish pink; continue irrigation will order Tramadol for pain
--- NOTE | 2017-05-18 08:19 | PN ---
DATE: 05/18/2017 PULMONARY NOTE SUBJECTIVE: The patient appears comfortable this morning. He is not short of breath at rest. PHYSICAL EXAMINATION: VITAL SIGNS: Temperature 98.5, pulse 63, respirations 18, blood pressure 142/74. Oxygen saturation on nasal cannula is 100%. HEENT: Normocephalic, atraumatic. NECK: No JVD. CARDIOVASCULAR: Systolic ejection murmur at the lower left sternal border. No S3 gallop. LUNGS: Better breath sounds at the bases. Much less/minimal rhonchi. No wheezing. EXTREMITIES: Positive for edema. No cyanosis, no clubbing. Calves are nontender to palpation. GASTROINTESTINAL: Abdomen is soft, nontender, nondistended. Bowel sounds are positive. SKIN: No acute rash. NEUROLOGIC: Exam is limited at the present time. IMPRESSION: 1. Advanced prostate cancer. 2. Recurrent hematuria. 3. Chronic obstructive pulmonary disease. 4. Coronary artery disease. 5. Chronic renal disease. 6. Chronic anemia. PLAN: The patient appears comfortable this morning. He is not short of breath at rest. He states he is feeling much better overall. On physical exam, his bronchospasm continues to resolve. In addition, the oxygen saturation on nasal cannula is now 100%. I will continue with the current nebulizer treatments and low-dose oral steroids for now. I would continue with the Renal and Genitourinary evaluations. Inputs are noted. Clinical status of the patient is certainly improved. However, again, the future status/prognosis for this patient does remain guarded. I will discuss the above with the attending physician. Kwadwo Arias MD MTDD
[2017-05-18] MEDS: POLYETHYLENE GLYCOL 3350 17 GM/Dose PACKET PO SCH ×2 (09:52→17:54)
--- NOTE | 2017-05-18 11:21 | CP.PCM.PN ---
<Barrington Camarena - Last Filed: 05/18/17 15:13> Subjective - Date & Time of Evaluation Date of Evaluation: 05/18/17 Time of Evaluation: 09:50 - Subjective Subjective: PGY [address] Carballo: Pt seen and examined at bedside. No acute events overnight. C/o occasional episodes of bladder spasms. Denies any hematuria since after catheter was changed and irrigated 2 days prior. Ambulating well with PT. He denies any fever, chills, n/v/d, cp, sob, abd pain. Objective - Vital Signs/Intake and Output Vital Signs (last 24 hours): Temp Pulse Resp BP Pulse Ox 98.4 F 67 18 117/46 L 97 05/18/17 10:00 05/18/17 10:00 05/18/17 10:00 05/18/17 10:00 05/18/17 10:00 - Medications Medications: Current Medications Amiodarone HCl (Cordarone) 200 mg PO DAILY [facility] PRN Reason: Protocol Last Admin: 05/18/17 09:53 Dose: 200 mg Atorvastatin Calcium (Lipitor) 10 mg PO DIN [facility] PRN Reason: Protocol Last Admin: 05/17/17 17:43 Dose: 10 mg Digoxin (Lanoxin) 0.125 mg PO 1400 [facility] PRN Reason: Protocol Last Admin: 05/17/17 13:46 Dose: 0.125 mg Docusate Sodium (Colace) 100 mg PO BID [facility] PRN Reason: Protocol Last Admin: 05/18/17 09:51 Dose: 100 mg Doxercalciferol (Hectorol) 0.5 mcg PO DAILY [facility] PRN Reason: Protocol Last Admin: 05/18/17 09:51 Dose: 0.5 mcg Furosemide (Lasix) 40 mg PO BID [facility] PRN Reason: Protocol Last Admin: 05/18/17 09:55 Dose: Not Given Hydromorphone HCl (Dilaudid) 1 mg IVP Q4H PRN; Protocol PRN Reason: Pain, moderate (4-7) Last Admin: 05/13/17 15:39 Dose: 1 mg Levalbuterol HCl (Xopenex) 0.63 mg IH [id number] [facility] Last Admin: 05/18/17 07:42 Dose: 0.63 mg Levalbuterol HCl (Xopenex) 0.63 mg IH Q2 PRN PRN Reason: Shortness of Breath Levothyroxine Sodium (Synthroid) 100 mcg PO 0600 [facility] PRN Reason: Protocol Last Admin: 05/18/17 05:05 Dose: 100 mcg Montelukast Sodium (Singulair) 10 mg PO DAILY [facility] PRN Reason: Protocol Last Admin: 05/18/17 09:52 Dose: 10 mg Tranexamic Acid 650 (Mg) 2 tab PO BID [facility] Last Admin: 05/18/17 09:56 Dose: 2 tab Ondansetron HCl (Zofran Inj) 4 mg IVP Q4H PRN; Protocol PRN Reason: Nausea/Vomiting Last Admin: 05/14/17 11:50 Dose: 4 mg Pantoprazole Sodium (Protonix Ec Tab) 40 mg PO 0600 [facility] PRN Reason: Protocol Last Admin: 05/18/17 05:05 Dose: 40 mg Polyethylene Glycol (Miralax) 17 gm PO BID [facility] PRN Reason: Protocol Last Admin: 05/18/17 09:52 Dose: 17 gm Prednisone (Prednisone Tab) 10 mg PO DAILY [facility] PRN Reason: Protocol Last Admin: 05/18/17 09:52 Dose: 10 mg Tramadol HCl (Ultram) 50 mg PO TID PRN; Protocol PRN Reason: Pain Last Admin: 05/17/17 08:58 Dose: 50 mg - Labs Labs: 05/18/17 06:30 05/18/17 06:30 - Constitutional Appears: No Acute Distress - Head Exam Head Exam: ATRAUMATIC, NORMAL INSPECTION, NORMOCEPHALIC - Eye Exam Eye Exam: EOMI, Normal appearance, PERRL Pupil Exam: NORMAL ACCOMODATION, PERRL - ENT Exam ENT Exam: Mucous Membranes Moist, Normal Exam - Neck Exam Neck Exam: Full ROM, Normal Inspection. absent: Lymphadenopathy - Respiratory Exam Respiratory Exam: Clear to Ausculation Bilateral, NORMAL BREATHING PATTERN. absent: Wheezes - Cardiovascular Exam Cardiovascular Exam: REGULAR RHYTHM, +S1, +S2. absent: Murmur - GI/Abdominal Exam GI & Abdominal Exam: Soft, Normal Bowel Sounds. absent: Tenderness - Extremities Exam Extremities Exam: Full ROM, Normal Capillary Refill, Normal Inspection. absent : Joint Swelling, Pedal Edema - Back Exam Back Exam: NORMAL INSPECTION - Neurological Exam Neurological Exam: Alert, Awake, Oriented x3 - Psychiatric Exam Psychiatric exam: Normal Affect, Normal Mood - Skin Skin Exam: Dry, Intact, Normal Color, Warm Assessment and Plan - Assessment and Plan (Free Text) Assessment: 87 M with history of stage 4 castrate resistant prostate cancer, chronic heart failure, COPD, DMII, coronary artery disease, hypothyroidism, and arthritis who was admitted for persistent hematuria currently with continuous bladder irrigation, also with bladder spasms. In TCU for cont rehab. Plan: - Cont rehab - Cont medical management - Consider starting Urispas vs oxybutnin for bladder spasms. But pt with occasional spasms - so will cont current management - Will f/u regarding starting Cytotoxin as outpt - F/u urology recs - changed the catheter 2 days prior cont bladder irrigation - D/gordo Pyridium - Cont Transexamic acid - Pain control - Prednisone 10mg daily (was previously on Zytiga but not tolerated) - GI and DVT ppx - PT Case and plan was reviewed and discussed in detail with Dr Carballo. <Rogelio Carballo P - Last Filed: 05/20/17 11:32> Objective - Vital Signs/Intake and Output Vital Signs (last 24 hours): Temp Pulse Resp BP Pulse Ox 97.6 F 72 18 128/60 96 05/20/17 10:00 05/20/17 10:00 05/20/17 10:00 05/20/17 10:56 05/20/17 10:00 - Medications Medications: Current Medications Amiodarone HCl (Cordarone) 200 mg PO DAILY [facility] PRN Reason: Protocol Last Admin: 05/20/17 10:54 Dose: 200 mg Atorvastatin Calcium (Lipitor) 10 mg PO DIN [facility] PRN Reason: Protocol Last Admin: 05/19/17 17:51 Dose: 10 mg Digoxin (Lanoxin) 0.125 mg PO 1400 [facility] PRN Reason: Protocol Last Admin: 05/19/17 13:49 Dose: 0.125 mg Docusate Sodium (Colace) 100 mg PO BID [facility] PRN Reason: Protocol Last Admin: 05/20/17 10:53 Dose: 100 mg Doxercalciferol (Hectorol) 0.5 mcg PO DAILY [facility] PRN Reason: Protocol Last Admin: 05/20/17 10:54 Dose: 0.5 mcg Furosemide (Lasix) 40 mg PO BID [facility] PRN Reason: Protocol Last Admin: 05/20/17 10:56 Dose: 40 mg Levalbuterol HCl (Xopenex) 0.63 mg IH [id number] [facility] Last Admin: 05/20/17 07:17 Dose: 0.63 mg Levalbuterol HCl (Xopenex) 0.63 mg IH Q2 PRN PRN Reason: Shortness of Breath Levothyroxine Sodium (Synthroid) 100 mcg PO 0600 [facility] PRN Reason: Protocol Last Admin: 05/20/17 06:01 Dose: 100 mcg Montelukast Sodium (Singulair) 10 mg PO DAILY [facility] PRN Reason: Protocol Last Admin: 05/20/17 10:55 Dose: 10 mg Tranexamic Acid 650 (Mg) 2 tab PO BID [facility] Last Admin: 05/20/17 10:56 Dose: 2 tab Ondansetron HCl (Zofran Inj) 4 mg IVP Q4H PRN; Protocol PRN Reason: Nausea/Vomiting Last Admin: 05/14/17 11:50 Dose: 4 mg Pantoprazole Sodium (Protonix Ec Tab) 40 mg PO 0600 [facility] PRN Reason: Protocol Last Admin: 05/20/17 06:01 Dose: 40 mg Polyethylene Glycol (Miralax) 17 gm PO BID [facility] PRN Reason: Protocol Last Admin: 05/20/17 10:55 Dose: 17 gm Prednisone (Prednisone Tab) 10 mg PO DAILY [facility] PRN Reason: Protocol Last Admin: 05/20/17 10:55 Dose: 10 mg Tramadol HCl (Ultram) 50 mg PO TID PRN; Protocol PRN Reason: Pain Last Admin: 05/17/17 08:58 Dose: 50 mg - Labs Labs: 05/20/17 06:00 05/20/17 06:00
[2017-05-18] MEDS: HYDROmorphone 1 mg/ml ISec IVP PRN (12:11)
--- NOTE | 2017-05-18 12:31 | PN ---
DATE: 05/18/2017 SUBJECTIVE: The patient is seen walking in the park. He is awake, he is alert, and he is comfortable. He denies any pain. He denies any shortness of breath. PHYSICAL EXAMINATION: GENERAL: Elderly male in no acute distress. VITAL SIGNS: Blood pressure 117/46, heart rate 66, respiratory rate 18, temperature 98.5. HEENT: Normocephalic, atraumatic, positive pallor. NECK: Supple. No JVD. LUNGS: Bilateral rhonchi, basilar rales. CARDIAC: S1, S2, regular rate and rhythm, no murmur, no rub. ABDOMEN: Soft, nondistended, nontender, bowel sounds present. EXTREMITIES: 1+ pitting edema of the lower extremities. INTAKE AND OUTPUT: Not charted. LABORATORY DATA: WBC 10, hemoglobin 9.8, hematocrit 30.8, platelets 173. Sodium 135, potassium 4.1, chloride 95, CO2 is 34, BUN 33, creatinine 1.2, glucose 96, calcium 8.3, albumin 2.9, corrected calcium 9.0, AST 61, ALT 65. MEDICATIONS: List reviewed. ASSESSMENT AND PLAN: 1. Stable chronic kidney disease stage 4. 2. Resolved acute kidney injury. 3. Persistent hematuria. 4. History of metastatic prostate cancer. 5. Non-insulin dependent diabetes mellitus. 6. Coronary artery disease. 7. Congestive heart failure. 8. Chronic obstructive pulmonary disease. PLAN: 1. Continue current management. 2. Continue physical therapy. 3. Stable from the renal stand point. Marianne Lozano MD
[2017-05-18] MEDS: Digoxin 125 mcg (0.125 mg) Tab PO SCH (13:59)
--- NOTE | 2017-05-18 14:13 | PN ---
DATE: 05/18/2017 REASON FOR CONSULTATION: Followup coronary artery disease, history of AICD, history of CABG, continuity of care in the transitional care unit, admitted with hematuria, on CBI (continues bladder irrigation). SUBJECTIVE: The patient denies any chest pain, shortness of breath, or any palpitation, seen in hallway, having exercise and walking therapy. PHYSICAL EXAMINATION: GENERAL: The patient is walking in the hallway, not in respiratory distress. VITAL SIGNS: As follows: Temperature afebrile, heart rate 63, blood pressure 142/74. HEENT: PERRLA. Extraocular muscles intact. NECK: Supple. No carotid bruits. No thyromegaly. HEART: S1 and S2 regular. CHEST: Clear to auscultation.. ABDOMEN: Soft. EXTREMITIES: Clubbing and cyanosis negative. LABORATORY DATA: Blood workup as follows: WBC 10.9, hemoglobin 9.8, hematocrit 30.8 and platelet count 173. Chemistry shows sodium 135, potassium 4.1, chloride 95, carbon dioxide 34, anion gap of 10, BUN 26, creatinine 1.2. Total protein 5.5, albumin 2.9, albumin-globulin ratio 1.1. IMPRESSION: An 87-year-old male with a past medical history significant for coronary artery disease, status post coronary artery bypass graft, status post percutaneous transluminal coronary angioplasty pre and post-coronary artery bypass graft, mitral valve replacement, paroxysmal atrial fibrillation status post automatic implantable cardioverter defibrillator because of ischemic cardiomyopathy, off anticoagulation for long time. History of prostate cancer with metastasis, admitted with hematuria, has indwelling Avendano catheter. Now the patient is on continuous bladder irrigation, Avendano catheter was changed recently, on also on tranexamic acid. RECOMMENDATION: Continue gentle diuretics. Continue CBI as per urologist. Continue amiodarone for paroxysmal atrial fibrillation. Continue digoxin, continue atorvastatin. Since the patient is on amiodarone yesterday, TSH found to be within normal limits, so we will continue 100 mcg of levothyroxine. We will follow with you. Thank you Dr. Polk for providing us opportunity in taking care of the patient, Ziggy Perry. Mely Chavarria MD
[2017-05-19] MEDS: Levalbuterol 0.63 MG/3 ML Inhal Soln UD IH SCH ×4 (01:48→20:19)
[2017-05-19] MEDS: Pantoprazole 40 mg EC Tab PO SCH (05:35)
[2017-05-19] MEDS: Levothyroxine 100 MCG TAB PO SCH (05:35)
[2017-05-19 07:38] LABS: BASO # 0.02 K/mm3 (0.0-2.0); BASO % 0.2 % (0.0-3.0); EOS # 0.1 (0.0-0.7); EOS % 0.8 % (1.5-5.0); GRAN # 7.43 (1.4-6.5); GRAN % 75.1 % (50.0-68.0); HEMOGLOBIN 10.3 gm/dL (14.0-18.0); LYMPH # 1.1 (1.2-3.4); LYMPH % 10.9 % (22.0-35.0); MEAN CELL VOLUME 85.6 fL (80.0-105.0); MEAN CORPUSCULAR HGB CONC 31.6 g/dl (31.0-37.0); MEAN PLATELET VOLUME 9.9 fl (7.0-11.0); MONO # 1.3 (0.1-0.6); PLATELET COUNT 205 10^3/uL (120.0-450.0); RBC 3.81 10^6/uL (3.5-6.1); RED CELL DISTRIBUTION WIDTH 14.6 % (11.5-14.5); WHITE BLOOD COUNT 9.9 10^3/ul (4.5-11.0)
[2017-05-19] MEDS: Insulin Human NPH/Reg 70/30 Vial(3 ml) SC SCH ×4 (08:01→22:39)
[2017-05-19 08:06] LABS: ALB/GLOB RATIO 1.3 (1.1-1.8); ALBUMIN 3.2 g/dL (3.0-4.8); ALT/SGPT 79 U/L (7-56); AST/SGOT 65 U/L (15-59); BLOOD UREA NITROGEN 35 mg/dL (7-21); CALCIUM 8.6 mg/dL (8.4-10.5); GFR AFRICAN-AMERICAN > 60; GFR NON-AFRICAN AMERICAN 57
--- NOTE | 2017-05-19 08:07 | CP.PCM.PN ---
Subjective - Date & Time of Evaluation Date of Evaluation: 05/19/17 Time of Evaluation: 07:45 - Subjective Subjective: Patient is seen this morning. He is still having hematuria. He is also complaining of back pain and difficulty walking. Objective - Vital Signs/Intake and Output Vital Signs (last 24 hours): Temp Pulse Resp BP Pulse Ox 97.5 F L 61 15 135/69 97 05/18/17 17:07 05/18/17 17:07 05/18/17 17:07 05/18/17 17:54 05/18/17 10:00 Intake and Output: 05/19/17 05/19/17 06:59 18:59 Intake Total 0 Output Total 1575 Balance -1575 - Medications Medications: Current Medications Amiodarone HCl (Cordarone) 200 mg PO DAILY [facility] PRN Reason: Protocol Last Admin: 05/18/17 09:53 Dose: 200 mg Atorvastatin Calcium (Lipitor) 10 mg PO DIN [facility] PRN Reason: Protocol Last Admin: 05/18/17 17:54 Dose: 10 mg Digoxin (Lanoxin) 0.125 mg PO 1400 [facility] PRN Reason: Protocol Last Admin: 05/18/17 13:59 Dose: 0.125 mg Docusate Sodium (Colace) 100 mg PO BID [facility] PRN Reason: Protocol Last Admin: 05/18/17 17:54 Dose: 100 mg Doxercalciferol (Hectorol) 0.5 mcg PO DAILY [facility] PRN Reason: Protocol Last Admin: 05/18/17 09:51 Dose: 0.5 mcg Furosemide (Lasix) 40 mg PO BID [facility] PRN Reason: Protocol Last Admin: 05/18/17 17:54 Dose: 40 mg Hydromorphone HCl (Dilaudid) 1 mg IVP Q4H PRN; Protocol PRN Reason: Pain, moderate (4-7) Last Admin: 05/18/17 12:11 Dose: 1 mg Levalbuterol HCl (Xopenex) 0.63 mg IH [id number] [facility] Last Admin: 05/19/17 07:17 Dose: 0.63 mg Levalbuterol HCl (Xopenex) 0.63 mg IH Q2 PRN PRN Reason: Shortness of Breath Levothyroxine Sodium (Synthroid) 100 mcg PO 0600 [facility] PRN Reason: Protocol Last Admin: 05/19/17 05:35 Dose: 100 mcg Montelukast Sodium (Singulair) 10 mg PO DAILY [facility] PRN Reason: Protocol Last Admin: 05/18/17 09:52 Dose: 10 mg Tranexamic Acid 650 (Mg) 2 tab PO BID [facility] Last Admin: 05/18/17 18:02 Dose: 2 tab Ondansetron HCl (Zofran Inj) 4 mg IVP Q4H PRN; Protocol PRN Reason: Nausea/Vomiting Last Admin: 05/14/17 11:50 Dose: 4 mg Pantoprazole Sodium (Protonix Ec Tab) 40 mg PO 0600 [facility] PRN Reason: Protocol Last Admin: 05/19/17 05:35 Dose: 40 mg Polyethylene Glycol (Miralax) 17 gm PO BID [facility] PRN Reason: Protocol Last Admin: 05/18/17 17:54 Dose: 17 gm Prednisone (Prednisone Tab) 10 mg PO DAILY [facility] PRN Reason: Protocol Last Admin: 05/18/17 09:52 Dose: 10 mg Tramadol HCl (Ultram) 50 mg PO TID PRN; Protocol PRN Reason: Pain Last Admin: 05/17/17 08:58 Dose: 50 mg - Labs Labs: 05/19/17 07:00 05/18/17 06:30 - Constitutional Appears: No Acute Distress - Head Exam Head Exam: ATRAUMATIC, NORMOCEPHALIC - Respiratory Exam Respiratory Exam: Clear to Ausculation Bilateral, NORMAL BREATHING PATTERN - Cardiovascular Exam Cardiovascular Exam: +S1, +S2 - GI/Abdominal Exam GI & Abdominal Exam: Soft, Normal Bowel Sounds - Neurological Exam Neurological Exam: Alert, Awake, Oriented x3 Assessment and Plan - Assessment and Plan (Free Text) Assessment: Hematuria Metastatic Prostate Cancer COPD CAD Hypothyroidism DMII CAD Arthritis Plan: Patient continues to have hematuria and needs continuous bladder irrigation. Patient also with back pain and difficulty ambulating. He needs further physical therapy. continue prednisone and respiratory treatments for COPD continue synthroid for hypothyroidism continue insulin for diabetes
--- NOTE | 2017-05-19 08:31 | PN ---
DATE: 05/19/2017 SUBJECTIVE: The patient appears comfortable this morning. He is not short of breath at rest. PHYSICAL EXAMINATION: VITAL SIGNS: Temperature is 97.5, pulse is 61, respirations 15, blood pressure 135/69. Oxygen saturation on nasal cannula is 97%. HEENT: Normocephalic, atraumatic. NECK: No JVD. CARDIOVASCULAR: Systolic ejection murmur at the lower left sternal border. No S3 gallop. LUNGS: Very minimal/much less rhonchi. No wheezing. EXTREMITIES: Positive for edema. No cyanosis, no clubbing. Calves are nontender to palpation. GASTROINTESTINAL: Abdomen is soft, nontender, nondistended. Bowel sounds are positive. SKIN: No acute rash. NEUROLOGIC: Limited at the present time. IMPRESSION: 1. Advanced prostate cancer. 2. Recurrent hematuria. 3. Chronic obstructive pulmonary disease. 4. Coronary artery disease. 5. Chronic renal disease. 6. Chronic anemia. PLAN: The patient appears very comfortable this morning. He is not short of breath at rest. He states he is feeling much better overall. On physical exam, his bronchospasm continues to resolve. In addition, the oxygen saturation on nasal cannula is 97% to 100%. I will continue with the current nebulizer treatments and low dose oral steroids for now. I would continue with the renal and genitourinary evaluations. Inputs are noted. Clinical status of the patient is certainly improved. However, again, the future status/prognosis for this patient does remain very guarded. All are aware. I will discuss the above with the attending physician. Kwadwo Arias MD [facility]
[2017-05-19] MEDS: POLYETHYLENE GLYCOL 3350 17 GM/Dose PACKET PO SCH ×2 (09:26→17:52)
--- NOTE | 2017-05-19 10:29 | PN ---
DATE: 05/19/2017 REASON FOR THE CONSULTATION: Followup coronary artery disease, AICD, history of CABG, continuity of care in the transitional care unit, admitted with hematuria, on CBI (continuous bladder irrigation). SUBJECTIVE: Denies any chest pain or shortness of breath. Abdominal pain has significantly decreased. PHYSICAL EXAMINATION: As follows: GENERAL: Lying comfortable on the bed, waiting for the breakfast and go for rehab. VITAL SIGNS: Temperature afebrile, heart rate 61, blood pressure 135/69. HEENT: PERRLA. Extraocular muscles intact. NECK: Supple. No carotid bruits. No thyromegaly. CHEST: Clear to auscultation.. HEART: S1 and S2 regular. ABDOMEN: Soft. EXTREMITIES: Clubbing and cyanosis negative. LABORATORY DATA: Blood workup as follows: WBC 9.9, hemoglobin 10.7, hematocrit 32.6 and platelet count 205. Chemistry shows sodium 133, potassium 4, chloride 94, carbon dioxide 32, anion gap of 11, BUN 35, creatinine 1.2. Total protein 5.7, albumin 3.2, albumin-globulin ratio 1.3. IMPRESSION: An 87-year-old male with a past medical history significant for coronary artery disease, status post coronary artery bypass graft, status post percutaneous transluminal coronary angioplasty pre and post-coronary artery bypass graft, history of mitral valve repair, paroxysmal atrial fibrillation, status post automatic implantable cardioverter-defibrillator, history of recently automatic implantable cardioverter-defibrillator generator change, ischemic cardiomyopathy, ejection fraction of 45%, moderate mitral regurgitation, metastatic prostate cancer, admitted with hematuria, has indwelling Avendano catheter, history of urinary tract infection. Catheter was clogged and recently changed. RECOMMENDATION: Continue rehab. Continue CBI as per urologist. Continue amiodarone for paroxysmal atrial fibrillation. Continue digoxin. Continue Lasix. Continue atorvastatin. We will follow with you. Thank you Dr. Plok for providing us the opportunity in taking care of the patient, Ziggy Amador. We will follow with you. Mely Chavarria MD
[2017-05-19 10:47] VITALS: RESP 18
[2017-05-19] MEDS: Digoxin 125 mcg (0.125 mg) Tab PO SCH (13:49)
--- NOTE | 2017-05-19 16:28 | PN ---
DATE: 05/19/2017 SUBJECTIVE: The patient is seen lying in bed. He is resting comfortably. PHYSICAL EXAMINATION: VITAL SIGNS: Blood pressure 123/54, heart rate 63, respiratory rate 18. LUNGS: Bilateral equal air entry. Bilateral rhonchi. CARDIAC: S1 and S2, regular rate and rhythm. No murmur, no rub. EXTREMITIES: 1+ pitting edema of the lower extremities. INTAKE AND OUTPUT: 1575. LABORATORY DATA: WBC 9.9, hemoglobin 10, hematocrit 33, platelets 205. Sodium 133, potassium 4.0, chloride 94, CO2 of 32, BUN 35, creatinine 1.2, glucose 97, calcium 8.6, AST 65, ALT 79, albumin 3.2. MEDICATIONS: List reviewed. ASSESSMENT AND PLAN: 1. Stable chronic kidney disease stage III/IV. 2. Recurrent hematuria. 3. Metastatic prostate cancer. 4. Non-insulin dependent diabetes mellitus. 5. Congestive heart failure. 6. Chronic obstructive pulmonary disease. 7. Coronary artery disease. PLAN: 1. Continue bladder irrigation as per urology. 2. Continue antihypertensive. 3. Stable from the renal . Marianne Lozano MD
[2017-05-20] MEDS: Levalbuterol 0.63 MG/3 ML Inhal Soln UD IH SCH ×3 (02:00→13:14)
[2017-05-20] MEDS: Pantoprazole 40 mg EC Tab PO SCH (06:01)
[2017-05-20] MEDS: Levothyroxine 100 MCG TAB PO SCH (06:01)
[2017-05-20 06:57] LABS: BASO # 0.01 K/mm3 (0.0-2.0); BASO % 0.1 % (0.0-3.0); EOS # 0.1 (0.0-0.7); GRAN # 7.97 (1.4-6.5); GRAN % 72.8 % (50.0-68.0); HEMOGLOBIN 9.6 gm/dL (14.0-18.0); LYMPH # 1.6 (1.2-3.4); LYMPH % 14.3 % (22.0-35.0); MEAN CELL VOLUME 84.5 fL (80.0-105.0); MEAN PLATELET VOLUME 10.1 fl (7.0-11.0); MONO # 1.3 (0.1-0.6); MONO % 11.8 % (1.0-6.0); PLATELET COUNT 120 10^3/uL (120.0-450.0); RBC 3.55 10^6/uL (3.5-6.1); RED CELL DISTRIBUTION WIDTH 14.5 % (11.5-14.5); WHITE BLOOD COUNT 10.9 10^3/ul (4.5-11.0)
--- NOTE | 2017-05-20 07:11 | PN ---
DATE: 05/20/2017 SUBJECTIVE: The patient appears comfortable this morning. He is not short of breath at rest. PHYSICAL EXAMINATION VITAL SIGNS: Temperature is 97.9, pulse 63, respirations 18, blood pressure 138/57. Oxygen saturation on nasal cannula is 98%. HEENT: Normocephalic and atraumatic. NECK: No JVD. CARDIOVASCULAR: Systolic ejection murmur at the lower left sternal border. No S3 gallop. LUNGS: Clear bilaterally this morning. GI: Abdomen is soft, nontender, nondistended. Bowel sounds are positive. EXTREMITIES: Positive for edema. No cyanosis, no clubbing. Calves are nontender to palpation. SKIN: No acute rash. NEUROLOGIC: Limited at the present time. IMPRESSION: 1. Advanced prostate cancer. 2. Recurrent hematuria. 3. Chronic obstructive pulmonary disease. 4. Coronary artery disease. 5. Chronic renal disease. 6. Chronic anemia. PLAN: The patient appears very comfortable this morning. He is not short of breath at rest. He does state he is feeling much better overall. On physical exam, his lungs are now clear. Oxygen saturation on nasal cannular is now 98%. I will continue with the current nebulizer treatments and low dose oral steroids for now. Inputs by cardiology and renal are noted. I did discuss the case with the nurse at length. The patient is for probable discharge later today - to a subacute facility. I will discuss the above with Dr. Polk. Kwadwo Arias MD [facility]
[2017-05-20 07:14] LABS: ALB/GLOB RATIO 1.2 (1.1-1.8); ALBUMIN 3.1 g/dL (3.0-4.8); ALT/SGPT 72 U/L (7-56); AST/SGOT 57 U/L (15-59); BLOOD UREA NITROGEN 35 mg/dL (7-21); CALCIUM 8.4 mg/dL (8.4-10.5); GFR AFRICAN-AMERICAN > 60; GFR NON-AFRICAN AMERICAN 57
[2017-05-20] MEDS: Insulin Human NPH/Reg 70/30 Vial(3 ml) SC SCH ×2 (08:14→12:38)
--- NOTE | 2017-05-20 08:27 | CP.PCM.PN ---
Subjective - Date & Time of Evaluation Date of Evaluation: 05/20/17 Time of Evaluation: 08:00 - Subjective Subjective: Patient is seen this morning. He had dark clots blocking the schroeder catheter last night. Schroeder catheter bag had to be changed as it could not be drained due to the large clots. He denies chest pain or shortness of breath. Objective - Vital Signs/Intake and Output Vital Signs (last 24 hours): Temp Pulse Resp BP Pulse Ox 97.9 F 63 18 138/57 L 98 05/19/17 16:59 05/19/17 16:59 05/19/17 16:59 05/19/17 17:51 05/19/17 16:59 - Medications Medications: Current Medications Amiodarone HCl (Cordarone) 200 mg PO DAILY [facility] PRN Reason: Protocol Last Admin: 05/19/17 09:24 Dose: 200 mg Atorvastatin Calcium (Lipitor) 10 mg PO DIN [facility] PRN Reason: Protocol Last Admin: 05/19/17 17:51 Dose: 10 mg Digoxin (Lanoxin) 0.125 mg PO 1400 [facility] PRN Reason: Protocol Last Admin: 05/19/17 13:49 Dose: 0.125 mg Docusate Sodium (Colace) 100 mg PO BID [facility] PRN Reason: Protocol Last Admin: 05/19/17 17:48 Dose: 100 mg Doxercalciferol (Hectorol) 0.5 mcg PO DAILY [facility] PRN Reason: Protocol Last Admin: 05/19/17 09:25 Dose: 0.5 mcg Furosemide (Lasix) 40 mg PO BID [facility] PRN Reason: Protocol Last Admin: 05/19/17 17:51 Dose: 40 mg Levalbuterol HCl (Xopenex) 0.63 mg IH [id number] [facility] Last Admin: 05/20/17 07:17 Dose: 0.63 mg Levalbuterol HCl (Xopenex) 0.63 mg IH Q2 PRN PRN Reason: Shortness of Breath Levothyroxine Sodium (Synthroid) 100 mcg PO 0600 [facility] PRN Reason: Protocol Last Admin: 05/20/17 06:01 Dose: 100 mcg Montelukast Sodium (Singulair) 10 mg PO DAILY [facility] PRN Reason: Protocol Last Admin: 05/19/17 09:26 Dose: 10 mg Tranexamic Acid 650 (Mg) 2 tab PO BID [facility] Last Admin: 05/19/17 17:52 Dose: 2 tab Ondansetron HCl (Zofran Inj) 4 mg IVP Q4H PRN; Protocol PRN Reason: Nausea/Vomiting Last Admin: 05/14/17 11:50 Dose: 4 mg Pantoprazole Sodium (Protonix Ec Tab) 40 mg PO 0600 [facility] PRN Reason: Protocol Last Admin: 05/20/17 06:01 Dose: 40 mg Polyethylene Glycol (Miralax) 17 gm PO BID [facility] PRN Reason: Protocol Last Admin: 05/19/17 17:52 Dose: 17 gm Prednisone (Prednisone Tab) 10 mg PO DAILY [facility] PRN Reason: Protocol Last Admin: 05/19/17 09:26 Dose: 10 mg Tramadol HCl (Ultram) 50 mg PO TID PRN; Protocol PRN Reason: Pain Last Admin: 05/17/17 08:58 Dose: 50 mg - Labs Labs: 05/20/17 06:00 05/20/17 06:00 - Constitutional Appears: No Acute Distress - Head Exam Head Exam: ATRAUMATIC, NORMOCEPHALIC - Cardiovascular Exam Cardiovascular Exam: +S1, +S2 - GI/Abdominal Exam GI & Abdominal Exam: Soft, Normal Bowel Sounds. absent: Tenderness - Neurological Exam Neurological Exam: Alert, Awake, Oriented x3 Assessment and Plan - Assessment and Plan (Free Text) Assessment: Prostate cancer with mets to the bone and lymph nodes in the abdomen Recurrent hematuria Anemia Chronic systolic and diastolic heart failure COPD CAD Hypothyroidism Cardiac arrhythmia Plan: Patient continues to have hematuria with large blood clots. He will be discharged to [facility] today. He will continue bladder irrigation at [facility]. Discussed with nurse, who will report to nurse at [facility] how to flush the catheter and change the bag. continue PT for back pain and difficulty ambulating continue insulin for diabetes monitor H&H continue meds as below: Amiodarone HCl (Cordarone) 200 mg PO DAILY [facility] Atorvastatin Calcium (Lipitor) 10 mg PO DIN [facility] Digoxin (Lanoxin) 0.125 mg PO 1400 [facility] Docusate Sodium (Colace) 100 mg PO BID [facility] Doxercalciferol (Hectorol) 0.5 mcg PO DAILY [facility] Furosemide (Lasix) 40 mg PO BID [facility] Levalbuterol HCl (Xopenex) 0.63 mg IH [id number] [facility] Levothyroxine Sodium (Synthroid) 100 mcg PO 0600 [facility] Montelukast Sodium (Singulair) 10 mg PO DAILY [facility] Pantoprazole Sodium (Protonix Ec Tab) 40 mg PO 0600 [facility] Polyethylene Glycol (Miralax) 17 gm PO BID [facility] Prednisone (Prednisone Tab) 10 mg PO DAILY [facility] Tramadol HCl (Ultram) 50 mg PO TID PRN Insulin 70/30 15 units SC [id number]
[2017-05-20 10:33] VITALS: PULSE 72; TEMP 97.6; O2SAT 96
[2017-05-20] MEDS: POLYETHYLENE GLYCOL 3350 17 GM/Dose PACKET PO SCH (10:55)
[2017-05-20 10:57] VITALS: BP 128/60
--- NOTE | 2017-05-20 11:14 | PN ---
DATE: SUBJECTIVE: The patient is currently seen in the TCU. He is completing breakfast. He continues to remain on continuous bladder irrigation for hematuria. He will be discharged later today to a care facility in [place]. He is being followed closely by Urology. PHYSICAL EXAMINATION: VITAL SIGNS: Blood pressure 138/57, temperature 97.9, respiratory rate 18 with a pulse of 63. HEENT: Normocephalic, atraumatic. Conjunctivae are pale. Sclerae are nonicteric. NECK: Supple. No neck vein distention. CHEST: Clear to auscultation and percussion. No rales. No rhonchi. No wheezing. CARDIOVASCULAR: Shows a normal S1 and S2. Aortic stenosis. Mitral regurgitation, tricuspid regurgitation. No S3. No S4. No rub. ABDOMEN: Soft. Bowel sounds are normal. No rebound. No guarding. No masses. GENITOURINARY: Positive for an indwelling Avendano catheter connected to bladder irrigation. Urine is red tinged, but no clots. EXTREMITIES: Show no cyanosis, clubbing, or edema. LABORATORY DATA AND IMAGING: Laboratories, white blood cell count 10.9, hemoglobin stable at 9.6, and platelets 120,000. Chemistry show normal electrolytes, BUN 35 with a creatinine of 1.2. His BUN has remained stable during his TCU stay. Creatinine has remained normal and at baseline levels. MEDICATIONS: List reviewed. The patient is currently on Colace, Cordarone, Hectorol, Lanoxin, Lasix, Lipitor, MiraLax, prednisone, Protonix, Singulair, Synthroid, tranexamic acid, tramadol, Xopenex, and Zofran p.r.n. ASSESSMENT: 1. Acute renal resolved. The patient remains mildly prerenal. He had a nonfunctioning Avendano catheter with bladder irrigation and removal of clots. Urine output appears to be adequate and stable. He does remain mildly prerenal on diuretic therapy and steroid therapy. 2. History of chronic kidney disease stage II with baseline creatinine in the low 1 range. He is currently 1.2. 3. History of metastatic prostate cancer, currently stable. 4. History of arteriosclerotic heart disease. 5. History of paroxysmal atrial fibrillation, currently stable. 6. History of mild valvular heart disease as noted above, currently stable. 7. History of coronary artery bypass graft, stable. 8. History of percutaneous transluminal coronary angioplasty, stable. 9. History of implantable automatic implantable cardioverter-defibrillator, stable. 10. History of congestive heart failure. The patient continues on diuretic therapy. He remains euvolemic. 11. History of chronic obstructive pulmonary disease, currently stable on current medical therapy. 12. History of hypothyroidism, stable on thyroid replacement therapy. 13. Past history of deep venous thrombosis. 14. Status post recent Klebsiella urinary tract infection. PLAN: 1. The patient is being transferred to a half-way care facility in [place] and will continue on bladder irrigation under the guidance of his urologist Dr. Masterson. 2. No choice, but to continue low dose diuretic therapy given history of CHF and ASHD. 3. From standpoint, the patient is okay for discharge. Choco White MD [facility]
[2017-05-20] MEDS: Digoxin 125 mcg (0.125 mg) Tab PO SCH (13:08)
[2017-05-20 13:11] VITALS: PULSE 68
--- NOTE | 2017-05-21 02:12 | CP.PCM.PN ---
Subjective - Date & Time of Evaluation Date of Evaluation: 05/19/17 Time of Evaluation: 22:00 - Subjective Subjective: No acute events. Still having some hematuria output requiring schroeder to be flushed periodically. 12 ROS otherwise negative Pain: denies Objective - Vital Signs/Intake and Output Vital Signs (last 24 hours): Temp Pulse Resp BP Pulse Ox 97.6 F 72 18 128/60 96 05/20/17 10:00 05/20/17 10:00 05/20/17 10:00 05/20/17 10:56 05/20/17 10:00 - Labs Labs: 05/20/17 06:00 05/20/17 06:00 - Constitutional Appears: Well - Respiratory Exam Respiratory Exam: Clear to Ausculation Bilateral, NORMAL BREATHING PATTERN - Cardiovascular Exam Cardiovascular Exam: REGULAR RHYTHM, +S1, +S2. absent: Murmur Assessment and Plan - Assessment and Plan (Free Text) Assessment: Mr. Frank is a 87 y/o man with a pmhx significant for castrate resistant prostate cancer, CHF, COPD, DM II, CAD, hypothyroidism, and arthritis who was admitted with persistent hematuria necessitating CBI. Hematuria improved with CBI. Continue Transeamic aid. Will consider outpatient oral cytoxan for cancer. Patient to be transferred to rehab facility [facility] Aidan Carballo MD Oncology Service p: [phone]
== END 2017-05-20 15:03 | DRG 723 ==
LOC: TRCU 17:24
PROVIDERS: ADMIT Internal Medicine; ATTEND Internal Medicine
PROC: 3E0F7GC Introduction of Other Therapeutic Substance into Respiratory Tract, Via Natural or Artificial Opening (ICD-10-PCS; 2017-05-12)
PROC: F07Z9FZ Gait Training/Functional Ambulation Treatment using Assistive, Adaptive, Supportive or Protective Equipment (ICD-10-PCS; principal; 2017-05-13)
PROC: F08Z4FZ Home Management Treatment using Assistive, Adaptive, Supportive or Protective Equipment (ICD-10-PCS; 2017-05-14)
DX: C61 Malignant neoplasm of prostate (principal); N02.8 Recurrent and persistent hematuria with other morphologic changes; C79.51 Secondary malignant neoplasm of bone; C77.2 Secondary and unspecified malignant neoplasm of intra-abdominal lymph nodes; I13.0 Hypertensive heart and chronic kidney disease with heart failure and stage 1 through stage 4 chronic kidney disease, or unspecified chronic kidney disease; E11.22 Type 2 diabetes mellitus with diabetic chronic kidney disease; N18.4 Chronic kidney disease, stage 4 (severe); N17.9 Acute kidney failure, unspecified; I50.42 Chronic combined systolic (congestive) and diastolic (congestive) heart failure; N39.0 Urinary tract infection, site not specified; I48.0 Paroxysmal atrial fibrillation; I25.10 Atherosclerotic heart disease of native coronary artery without angina pectoris; E03.9 Hypothyroidism, unspecified; D63.1 Anemia in chronic kidney disease; I08.1 Rheumatic disorders of both mitral and tricuspid valves; J44.9 Chronic obstructive pulmonary disease, unspecified; N32.89 Other specified disorders of bladder; R33.9 Retention of urine, unspecified; M19.90 Unspecified osteoarthritis, unspecified site; I25.5 Ischemic cardiomyopathy; E78.5 Hyperlipidemia, unspecified; I25.2 Old myocardial infarction; Z79.84 Long term (current) use of oral hypoglycemic drugs; Z95.810 Presence of automatic (implantable) cardiac defibrillator; Z95.1 Presence of aortocoronary bypass graft; Z95.5 Presence of coronary angioplasty implant and graft; Z86.718 Personal history of other venous thrombosis and embolism; Z95.2 Presence of prosthetic heart valve

== ENCOUNTER 2017-05-23 09:37 | Inpatient (IN) | payer MEDICARE ==
[2017-05-23 09:52] VITALS: BMI 24.1
--- NOTE | 2017-05-23 10:30 | ED PDOC ---
Arrival/HPI - General Chief Complaint: Medical Clearance Time Seen by Provider: 05/23/17 09:44 Historian: Patient - History of Present Illness Narrative History of Present Illness (Text): 05/23/17 09:45 Ziggy Amador is an 87 year old male, whose past medical history includes prostate cancer, chronic indwelling schroeder catheter, CHF, COPD, coronary artery disease, and hypothyroidism, who presents to the emergency department complaining of a catheter clot. Patient states that he experiences suprapubic pressure. Patient denies any other complaints at this time. PMD: Dr. Polk Symptom Course: Unchanged Activities at Onset: Rest Modifying Factors (Text): none Context: Home Past Medical History - Provider Review Nursing Documentation Reviewed: Yes - Infectious Disease Hx of Infectious Diseases: None - Tetanus Immunization Tetanus Immunization: Unknown - Cardiac Hx Cardiac Disorders: Yes (ACS, CAD, CABG) Hx Congestive Heart Failure: Yes Hx Hypertension: Yes - Pulmonary Hx Chronic Obstructive Pulmonary Disease (COPD): Yes - Neurological Hx Neurological Disorder: No - HEENT Hx HEENT Disorder: Yes ([place]) Hx Cataracts: Yes (WITH b/t SURGERY) Hx Glaucoma: Yes - Renal Hx Renal Failure: Yes - Endocrine/Metabolic Hx Diabetes Mellitus Type 2: Yes Hx Hypothyroidism: Yes - Hematological/Oncological Hx Blood Disorders: Yes Hx Anemia: Yes (in past with blood transfusion) 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) Other/Comment: pt dx in 2001 had radiation trreatments, dx again in 2016 was taking po chemo, stopped due to recommendation by dr Carballo as per pt due to pt taking amidorone for 25 yrs was not compatable - Integumentary Other/Comment: multiple skin discolorations and tatoos both arms, multiple brown skin discolorations ble - Musculoskeletal/Rheumatological Hx Arthritis: Yes Hx Falls: No - Gastrointestinal Hx Gastrointestinal Disorders: No - Genitourinary/Gynecological Hx Genitourinary Disorders: Yes Hx Prostate Cancer: Yes Hx Reproductive Disorders: No - Psychiatric Hx Psychophysiologic Disorder: No Hx Emotional Abuse: No Hx Physical Abuse: No Hx Substance Use: No - Surgical History Hx Coronary Stent: Yes (x4 2001) Hx Open Heart Surgery: Yes (int pacemaker/defibrillator) Other/Comment: cardiac stents, 4 quadruple bypass in the past 3 years, indwelling schroeder catheter placement. cystoscopy x3 weeks ago, left shoulder cyst removed 1988 - Anesthesia Hx Anesthesia Reactions: No Hx Malignant Hyperthermia: No - Suicidal Assessment Feels Threatened In Home Enviroment: No Family/Social History - Physician Review Nursing Documentation Reviewed: Yes Family/Social History: No Known Family HX Smoking Status: Unknown If Ever Smoked Hx Alcohol Use: No Hx Substance Use: No Hx Substance Use Treatment: No Allergies/Home Meds Allergies/Adverse Reactions: Allergies Iodinated Contrast- Oral and IV Dye Allergy (Verified 05/23/17 09:56) ANAPHYLAXIS levofloxacin [From Levaquin] Allergy (Verified 05/23/17 09:56) ANAPHYLAXIS Home Medications: Home Meds Medication Instructions Recorded Confirmed Amiodarone HCl 200 mg PO DAILY 06/14/12 05/23/17 Acetaminophen/Codeine 2 tab PO PRN PRN 04/23/17 05/23/17 [Tylenol/Codeine 300 MG/30 MG] Aluminum Hydroxide/Magnesium H 30 ml PO PRN PRN 05/23/17 05/23/17 [Maalox 30 ml] Amiodarone 200 mg PO DAILY 05/23/17 05/23/17 Digoxin [Digitek] 125 mcg PO BID 05/23/17 05/23/17 Docusate [Colace] 100 mg PO BID 05/23/17 05/23/17 Doxercalciferol [Hectorol] 0.5 mcg PO DAILY 05/23/17 05/23/17 Furosemide [Lasix] 40 mg PO BID 05/23/17 05/23/17 Insulin NPH Hum/Reg Insulin Hm 1 unit SQ ACHS 05/23/17 05/23/17 [Humulin 70-30 Vial] Ondansetron HCl [Zofran] 4 mg PO PRN PRN 05/23/17 05/23/17 Polyethylene Glycol 3350 [Miralax] 1 packet PO BID 05/23/17 05/23/17 Sod Phos,M-B/Na Phos,Di-Ba [Fleet 1 bottle RC Q8 PRN 05/23/17 05/23/17 Enema] predniSONE 10 mg PO DAILY 05/23/17 05/23/17 Physical Exam - Physical Exam Narrative Physical Exam (Text): - Review of Systems Constitutional: Normal. absent: Fatigue, Weight Change, Fevers Eyes: Normal ENT: Normal Respiratory: Normal absent: SOB, Cough, Sputum Cardiovascular: Normal absent: Chest pain, Palpitations, Syncope Gastrointestinal: Normal absent: Abdominal pain, Diarrhea, Nausea, Vomiting Genitourinary: Catheter Clotting. absent: Dysuria, Frequency Musculoskeletal: Normal. absent: Arthralgias, Back Pain, Neck Pain Skin: Normal Neurological: Normal absent: Focal Weakness Endocrine: Normal Hemo/Lymphatic: Normal Psychiatric: Normal - Physical exam Patient appears age appropriate, speaking full sentences without difficulty. - Systems Exam Head: Present: Atraumatic, Normocephalic Pupils: Present: PERRL Extraocular Muscles: Present: EOMI Conjunctiva: Present: Normal Mouth: Present: Moist Mucous Membranes Neck: Present: Normal Range of Motion. No: MIDLINE TENDERNESS, Paraspinal Tenderness Respiratory/Chest: Present: Clear to Auscultation, Good Air Exchange. No: Respiratory Distress, Accessory Muscle Use, Tachypnic Cardiovascular: Present: Regular Rate and Rhythm, Normal S1, S2, Peripheral Pulses Present. No: Murmurs Abdomen: Present: Normal Bowel Sounds, No: Tenderness, Peritoneal Signs, Rebound, Guarding, Distention Back: Present: Normal Inspection. No: Midline Tenderness, Paraspinal Tenderness Upper Extremity: Present: Normal Inspection. No: Cyanosis, Edema Lower Extremity: Present: Normal Inspection. No: Edema Neurological: Present: GCS=15, Speech Normal, cranial nerves II through XII fully intact with no cerebellar abnormality, neuro-sensory fully intact. No focal neurological deficits. Skin: Present: Warm, Dry, Normal Color. No: Rashes Lymphatic: Present: OX3, NI, NC Psychiatric: Present: Alert, Oriented x 3, Normal Insight, Normal Concentration Vital Signs Reviewed: Yes Vital Signs Temp Pulse Resp BP Pulse Ox 05/23/17 09:50 98.1 F 60 18 139/68 97 Temperature: Afebrile Blood Pressure: Normal Pulse: Regular Respiratory Rate: Normal Appearance: Positive for: Well-Appearing, Non-Toxic, Comfortable Pain Distress: None Mental Status: Positive for: Alert and Oriented X 3 Medical Decision Making ED Course and Treatment: 05/23/17 09:45 Impression: 87 year old male complaining of a catheter clotting. Plan: -- Urine Culture -- Labs -- Reassess and disposition Prior Visits: Notes and results from previous visits were reviewed. Patient was recently discharged after a diagnosis of dehydration on continuous bladder irrigation due to hematuria on 05/20/17. Progress Notes: 05/23/17 12:15 catheter irrigated with copious amounts of saline mult clots expressed pt's suprapubic discomfort resolved Hb 8.2 pt with no cp/sob/[place] dw Dr. Marcus, asked to transfuse 2U PRBCs and admit pt aware of and agrees with plan 05/23/17 12:[address] Louise, aware of plan - Critical Care Critical Care Minutes: 30 minutes - Lab Interpretations Lab Results: 05/23/17 10:00 05/23/17 10:00 Lab Results 05/23/17 10:00: Sodium 134, Potassium 4.4, Chloride 99, Carbon Dioxide 27, Anion Gap 12, BUN 31 H, Creatinine 1.1, Est GFR ( Amer) > 60, Est GFR ( Non-Af Amer) > 60, Random Glucose 298 H, Calcium 8.1 L, Total Bilirubin 0.3, AST 45, ALT 56, Alkaline Phosphatase 102, Total Protein 5.4 L, Albumin 2.8 L, Globulin 2.5, Albumin/Globulin Ratio 1.1 05/23/17 10:00: PT 11.7, INR 1.08, APTT 26.3 05/23/17 10:00: WBC 10.3, RBC 2.98 L, Hgb 8.2 L, Hct 25.8 L, MCV 86.6, MCH 27.5 , MCHC 31.8, RDW 14.9 H, Plt Count 191, MPV 9.5, Gran % 90.3 H, Lymph % (Auto) 5.0 L, [place] % (Auto) 4.1, Eos % (Auto) 0.4 L, Baso % (Auto) 0.2, Gran # 9.32 H, Lymph # 0.5 L, [place] # 0.4, Eos # 0.0, Baso # 0.02 I have reviewed the lab results: Yes - Medication Orders Current Medication Orders: Discontinued Medications Furosemide (Lasix) 40 mg IVP STAT STA Stop: 05/23/17 12:21 Sodium Chloride (Sodium Chloride 0.9%) 500 mls @ 1,000 mls/hr IV .Q30M STA Stop: 05/23/17 11:53 - Scribe Statement The provider has reviewed the documentation as recorded by the Robin Casas Provider Scribe Attestation: All medical record entries made by the Scribe were at my direction and personally dictated by me. I have reviewed the chart and agree that the record accurately reflects my personal performance of the history, physical exam, medical decision making, and the department course for this patient. I have also personally directed, reviewed, and agree with the discharge instructions and disposition. Disposition/Present on Arrival - Present on Arrival Any Indicators Present on Arrival: No History of DVT/PE: No History of Uncontrolled Diabetes: No Urinary Catheter: Yes (from home draining bloody urine) History of Decub. Ulcer: No History Surgical Site Infection Following: None - Disposition Have Diagnosis and Disposition been Completed?: Yes Diagnosis: Hematuria Disposition: HOSPITALIZED Disposition Time: 12:18 Patient Plan: Admission Patient Problems: Current Active Problems Problem Status Onset Hematuria Acute Condition: FAIR Referrals: Thanh Polk MD [Primary Care Provider] - Follow up with primary Forms: [employer] (Nepali)
[2017-05-23 10:40] LABS: BASO # 0.02 K/mm3 (0.0-2.0); BASO % 0.2 % (0.0-3.0); EOS % 0.4 % (1.5-5.0); GRAN # 9.32 (1.4-6.5); GRAN % 90.3 % (50.0-68.0); HEMOGLOBIN 8.2 g/dL (14.0-18.0); LYMPH # 0.5 (1.2-3.4); MEAN CELL VOLUME 86.6 fl (80.0-105.0); MEAN CORPUSCULAR HEMOGLOBIN 27.5 pg (25.0-35.0); MEAN CORPUSCULAR HGB CONC 31.8 g/dl (31.0-37.0); MEAN PLATELET VOLUME 9.5 fl (7.0-11.0); MONO # 0.4 (0.1-0.6); MONO % 4.1 % (1.0-6.0); PLATELET COUNT 191 10^3/uL (120.0-450.0); RBC 2.98 10^6/uL (3.5-6.1); RED CELL DISTRIBUTION WIDTH 14.9 % (11.5-14.5); WHITE BLOOD COUNT 10.3 10^3/ul (4.5-11.0)
[2017-05-23 10:58] LABS: ALB/GLOB RATIO 1.1 (1.1-1.8); ALBUMIN 2.8 g/dL (3.0-4.8); ALT/SGPT 56 U/L (7-56); AST/SGOT 45 U/L (15-59); BLOOD UREA NITROGEN 31 mg/dL (7-21); CALCIUM 8.1 mg/dL (8.4-10.5); GFR AFRICAN-AMERICAN > 60; GFR NON-AFRICAN AMERICAN > 60; INR 1.08 (0.93-1.08); PARTIAL THROMBOPLASTIN TIME 26.3 Seconds (23.7-30.8); PROTHROMBIN TIME 11.7 Seconds (9.9-11.8)
[2017-05-23] MEDS ORDERED: Sodium Chloride 0.9% 500 ML IV STA (11:24)
[2017-05-23] MEDS ORDERED: Morphine 2 mg/ml ISec IVP STA (15:20)
--- NOTE | 2017-05-23 15:37 | CP.PCM.HP ---
History of Present Illness - History of Present Illness History of Present Illness: 87 year old male with history of metastatic prostate cancer, coronary artery disease, chronic obstructive pulmonary disease, hypothyroidism, arthritis and type 2 diabetes mellitus who was sent to the Emergency Room for blood clots blocking his schroeder catheter. Patient, who has indwelling schroeder catheter, complains of crampy abdominal pain in the lower quadrants and says that the clots are not able to pass through the catheter. He denies chest pain or shortness of breath. Hemoglobin has also dropped from 9.6 to 8.2 today. Present on Admission - Present on Admission Any Indicators Present on Admission: Yes History of DVT/PE: Yes History of Uncontrolled Diabetes: Yes Urinary Catheter: Yes Decubitus Ulcer Present: No Review of Systems - Constitutional Constitutional: absent: Fever, Frequent Falls, Night Sweats - Cardiovascular Cardiovascular: absent: Chest Pain, Diaphoresis, Dyspnea - Respiratory Respiratory: absent: Dyspnea, Hemoptysis, Wheezing - Gastrointestinal Gastrointestinal: Abdominal Pain - Musculoskeletal Musculoskeletal: Back Pain - Neurological Neurological: Abnormal Gait Past Patient History - Infectious Disease Hx of Infectious Diseases: None - Tetanus Immunizations Tetanus Immunization: Unknown - Past Medical History & Family History Past Medical History?: Yes - Past Social History Smoking Status: Unknown If Ever Smoked - CARDIAC Hx Cardiac Disorders: Yes (ACS, CAD, CABG) Hx Congestive Heart Failure: Yes Hx Hypertension: Yes - PULMONARY Hx Chronic Obstructive Pulmonary Disease (COPD): Yes - NEUROLOGICAL Hx Neurological Disorder: No - HEENT Hx HEENT Problems: Yes ([place]) Hx Cataracts: Yes (WITH b/t SURGERY) Hx Glaucoma: Yes - RENAL Hx Renal Failure: Yes - ENDOCRINE/METABOLIC Hx Diabetes Mellitus Type 2: Yes Hx Hypothyroidism: Yes - HEMATOLOGICAL/ONCOLOGICAL Hx Blood Disorders: Yes Hx Anemia: Yes (in past with blood transfusion) 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) Other/Comment: pt dx in 2001 had radiation trreatments, dx again in 2016 was taking po chemo, stopped due to recommendation by dr Carballo as per pt due to pt taking amidorone for 25 yrs was not compatable - INTEGUMENTARY Other/Comment: multiple skin discolorations and tatoos both arms, multiple brown skin discolorations ble - MUSCULOSKELETAL/RHEUMATOLOGICAL Hx Arthritis: Yes Hx Falls: No - GASTROINTESTINAL Hx Gastrointestinal Disorders: No - GENITOURINARY/GYNECOLOGICAL Hx Genitourinary Disorders: Yes Hx Hematuria: Yes Hx Prostate Cancer: Yes Hx Reproductive Disorders: No - PSYCHIATRIC Hx Psychophysiologic Disorder: No Hx Emotional Abuse: No Hx Physical Abuse: No Hx Substance Use: No - SURGICAL HISTORY Hx Coronary Stent: Yes (x4 2001) Hx Open Heart Surgery: Yes (int pacemaker/defibrillator) Other/Comment: cardiac stents, 4 quadruple bypass in the past 3 years, indwelling schroeder catheter placement. cystoscopy x3 weeks ago, left shoulder cyst removed 1988 - ANESTHESIA Hx Anesthesia Reactions: No Hx Malignant Hyperthermia: No Meds Allergies/Adverse Reactions: Allergies Allergy/AdvReac Type Severity Reaction Status Date / Time Iodinated Contrast- Oral and Allergy ANAPHYLAXIS Verified 05/23/17 09:56 IV Dye levofloxacin [From Levaquin] Allergy ANAPHYLAXIS Verified 05/23/17 09:56 Physical Exam - Head Exam Head Exam: ATRAUMATIC, NORMOCEPHALIC - Respiratory Exam Respiratory Exam: Clear to Auscultation Bilateral, NORMAL BREATHING PATTERN - Cardiovascular Exam Cardiovascular Exam: +S1, +S2 - GI/Abdominal Exam GI & Abdominal Exam: Normal Bowel Sounds, Soft, Tenderness Additional comments: tenderness lower quadrants bilaterally - Neurological Exam Neurological exam: Alert, CN II-XII Intact, Oriented x3 - Skin Skin Exam: Pallor Results - Vital Signs Recent Vital Signs: Last Vital Signs Temp 98.1 F 05/23/17 09:50 Pulse 59 L 05/23/17 13:00 Resp 16 05/23/17 13:00 BP 150/75 05/23/17 13:00 Pulse Ox 96 05/23/17 13:00 - Labs Result Diagrams: 05/24/17 05:20 05/24/17 05:20 Assessment & Plan - Assessment and Plan (Free Text) Assessment: Acute on Chronic anemia secondary to hematuria Metastatic prostate cancer with hematuria Abdominal pain HTN Coronary Artery Disease COPD Arthritis DMII Hypothyroidism Plan: Patient with large blood clots and drop in hemoglobin from 9.6 to 8.2 He has been typed and screened and will receive 2 units of blood today His urologist, Dr Louise, has been consulted Ultram and Morphine as needed for pain continue insulin for type 2 diabetes continue synthroid for hypothyroidism continue amiodarone and digoxin for history of cardiac arrhythmia consult oncology for prostate cancer treatment
--- NOTE | 2017-05-23 16:48 | CP.PCM.PCO ---
Additional Comments - Additional Comments Additional Comments: Rapid response called on patient. Responded at bedside. 87 year old male with a PMH of prostate CA with indwelling schroeder. Patient in severe pain, called due to diaphoresis and pain. Patient had 22 Fr schroeder already in place which nursing had attempted to irrigate. Irrigation running however no current output noted, only minimal thick hematuria in the container. Very marked suprapubic fullness noted and suprapubic tenderness. Vitals showed hypertension. We again tried to irrigate the schroeder but did not have any output whatsoever. cart was ordered and brought to bedside. Patient's 22 Fr catheter was removed , first making sure to remove the 10ml of fluid from the balloon. Immediately upon removing the schroeder there was about 5ml of clotted blood which was expulsed from the urethral meatus. This blood was removed and the area was cleaned. A new three way 18 Fr catheter was obtained from cart and the area was again cleaned, prepped, and this new schroeder was placed. There was no resistance or other difficulty with placement of this smaller schroeder. Immediate and continuous drip was noted from smaller irrigation port. Drainage bag was attached to large port and hung to gravity but did not have any flow. The flow from the smaller irrigation port was allowed to continue at will. The output was hematuria. The output continued for some time and totaled 100ml. Patient had a marked improvement in his symptoms in terms of both pain and fullness. Flow did stop and manipulation of the lower abdomen nor irrigation recontinued the flow. This third irrigation port was closed to allow the urine to just flow through the larger port to the drainage bag. During this time urology was consulted and stated that they were on their way. Patient was much more comfortable and we maintained the [address] to gravity. Nursing staff aware and present during all of the above and the patient will await urology. cart left at bedside. Patient was seen, examined, and case/management was performed with the supervision of attending physician.
--- NOTE | 2017-05-23 16:55 | RAD ---
HISTORY: OR COMPARISON: 04/30/2017. FINDINGS: LUNGS: No active pulmonary disease. PLEURA: No significant pleural effusion identified, no pneumothorax apparent. CARDIOVASCULAR: Cardiomegaly. No evidence of acute, significant cardiovascular disease. Venous access catheter in stable, satisfactory position. Position/ configuration of pacemaker Incidental Finding(s): Postoperative changes related to sternotomy. OSSEOUS STRUCTURES: No significant abnormalities. VISUALIZED UPPER ABDOMEN: Normal. OTHER FINDINGS: None. IMPRESSION: No active disease. No significant interval change compared to the prior examination(s).
--- NOTE | 2017-05-23 16:55 | CARD ---
APPROVED REPORT EKG Measurement Heart [id number] <Conclusion> Electronic ventricular pacemaker
[2017-05-23] MEDS: Levalbuterol 0.63 MG/3 ML Inhal Soln UD IH SCH ×2 (17:10→19:49)
[2017-05-23] MEDS: Insulin Human NPH/Reg 70/30 Vial(3 ml) SC SCH ×2 (18:12→22:40)
[2017-05-23] MEDS: POLYETHYLENE GLYCOL 3350 17 GM/Dose PACKET PO SCH (18:13)
[2017-05-23] MEDS ORDERED: Pneumococcal 23-Valent Vaccine IM ONE (18:35)
[2017-05-23] MEDS ORDERED: Propofol 10 mg/ml Inj (20 ML) ONE (18:46)
[2017-05-23] MEDS ORDERED: Lidocaine 2% Inj (20ml) ONE (18:46)
[2017-05-23] MEDS: Digoxin 125 mcg (0.125 mg) Tab PO SCH (19:16)
[2017-05-23] MEDS ORDERED: Etomidate 20 mg/10ml Inj IV ONE (19:17)
[2017-05-23] MEDS ORDERED: cefTRIAXone (Rocephin) 1 gm Inj ONE (19:29)
[2017-05-23] MEDS ORDERED: Morphine 2 mg/ml ISec IVP PRN (20:06)
[2017-05-23] MEDS: Morphine 4 mg/ml ISec IVP PRN (22:02)
[2017-05-24] MEDS: Levalbuterol 0.63 MG/3 ML Inhal Soln UD IH SCH ×4 (01:28→19:39)
--- NOTE | 2017-05-24 03:23 | OP ---
PROCEDURE DATE: 05/23/2017 PREOPERATIVE DIAGNOSIS: Gross hematuria, urinary clot retention. POSTOPERATIVE DIAGNOSIS: Gross hematuria, urinary clot retention. PROCEDURE: Cystoscopy with evacuation of clots. SURGEON: Dr. Eddie Louise. TYPE OF ANESTHESIA: General. COMPLICATIONS: There were none. SPECIMEN: Clots were sent to pathology. DRAIN: A 26-[place] 3-way Avendano catheter. OPERATIVE FINDINGS: After informed consent was obtained, the patient was taken to the operating room and placed on the operating table. Anesthesia was administered. The patient was then placed in a dorsal lithotomy position, prepped and draped in the usual sterile fashion. A 26-Belgian resectoscope with visualizing obturator was passed and placed in the patient's urethra and advanced proximally under direct vision until the bladder was entered. Upon entering the bladder, the bladder was filled with large organized clots. An evacuating device was then obtained. However, the clots were unable to be evacuated out of the bladder through the 26-Belgian resectoscope sheath as the clots were firm and organized. At this point, a loop was placed on the resecting device. No cautery was used, but the loop was used to push the clots off of the wall and I was able to manually extract the clots. After the larger clots had been removed, the evacuating device was then used, some of the smaller clots were able to be evacuated out using the Mar evacuator. The scope had be passed multiple times. The clots had to be individually grabbed and pulled out manually as they were not able to be irrigated out of the scope. After all the large clots had been removed, the evacuating device was used, the smaller clots were able to be evacuated and at this point, the procedure was complete, when there were no remaining clots noted. Exam of the bladder showed some ragged tissue at the bladder neck, which was oozing slightly. The prostatic urethra also appear to be hypervascular with some active oozing. At this point, as there were no remaining clots, and the irrigation was running clear, the cystoscope was removed, a 26-[place] 3-way Avendano catheter was passed and placed to continuous bladder irrigation. With CBI, the irrigation was running clear at the end of the case. The patient received intravenous antibiotics at the start of the procedure. The plan for now is to continue the patient on CBI to prevent clotting. I will need to discuss further plan for possible cauterization when the patient's condition has stabilized. The patient was returned to the supine position and taken to the recovery room and awakened in the stable condition. Eddie Louise MD
[2017-05-24] MEDS: Morphine 4 mg/ml ISec IVP PRN ×4 (03:53→22:03)
[2017-05-24] MEDS: Pantoprazole 40 mg EC Tab PO SCH (05:25)
[2017-05-24] MEDS: Levothyroxine 100 MCG TAB PO SCH (05:25)
[2017-05-24 05:50] LABS: HEMOGLOBIN 8.9 g/dL (14.0-18.0); MEAN CELL VOLUME 87.4 fl (80.0-105.0); MEAN CORPUSCULAR HEMOGLOBIN 28.1 pg (25.0-35.0); MEAN CORPUSCULAR HGB CONC 32.1 g/dl (31.0-37.0); MEAN PLATELET VOLUME 9.3 fl (7.0-11.0); PLATELET COUNT 205 10^3/uL (120.0-450.0); RBC 3.17 10^6/uL (3.5-6.1); RED CELL DISTRIBUTION WIDTH 15.1 % (11.5-14.5); WHITE BLOOD COUNT 22.3 10^3/ul (4.5-11.0)
[2017-05-24 06:52] LABS: BAND 9 % (0-2); BASOPHIL 1 % (0.0-1.0); LYMPHOCYTE 2 % (22.0-35.0); MONOCYTE 5 % (1.0-6.0); NEUTROPHIL 83 % (50.0-70.0); PLATELET ESTIMATE NORMAL (NORMAL); TOXIC GRANULATION SLIGHT
[2017-05-24] MEDS: Insulin Human NPH/Reg 70/30 Vial(3 ml) SC SCH ×4 (08:22→21:54)
[2017-05-24] MEDS ORDERED: Meropenem 1g/NS 100mL IVPB 1 GM/100 ML PIGGYBACK IVPB SCH (08:40)
[2017-05-24] MEDS: Digoxin 125 mcg (0.125 mg) Tab PO SCH ×2 (10:15→17:40)
[2017-05-24] MEDS: POLYETHYLENE GLYCOL 3350 17 GM/Dose PACKET PO SCH ×2 (10:20→17:41)
--- NOTE | 2017-05-24 10:23 | PN ---
DATE: LOCATION: The patient is in the [facility] in [place], room 264, bed 1. SUBJECTIVE: The patient was admitted yesterday. The patient was admitted with retention of urine, hematuria, and abdominal pain. The patient's Avendano catheter was not functional. There was clot that was exuding from the Avendano catheter and blocking the catheter. However, the patient had a procedure performed yesterday by Dr. Eddie Louise, his urologist. The patient's cystoscopy traversing on the bladder was done. The patient had irrigation process established. 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 The patient has congestive cardiomyopathy, diabetes mellitus, chronic obstructive lung disease. The patient has a history of hypothyroidism. PHYSICAL EXAMINATION: VITAL SIGNS: This morning, he is pale. Pulse is 75 with blood pressure 100/44, respirations are 19 per minute, O2 saturation is 100%. He is on 2 L of oxygen. HEENT: The patient's head is normocephalic. NECK: There is no enlargement of the thyroid. The JVP is flat. HEART: Normal sinus rhythm. S1 and S2 present. The patient has cardiac pacemaker and a defibrillator for congestive cardiomyopathy. LUNGS: Trachea is central. Diminished breath sounds bilaterally. Rhonchi occasionally heard. ABDOMEN: Soft. Tenderness in the abdomen. Mild distention. CENTRAL NERVOUS SYSTEM: No focal neurological deficits. MEDICATIONS: The patient's medications consist of amiodarone 200 mg daily. The patient is on Hectorol 0.5 mcg daily. The patient is on digoxin 0.125 mg daily. The patient is on Lasix 40 mg b.i.d. and Lipitor 10 mg daily. The patient is getting morphine for pain. The patient is on prednisone 10 mg daily, pantoprazole 40 mg daily, and Reglan 10 mg IV p.r.n. for nausea. The patient's Synthroid 100 mcg daily, Singulair 10 mg daily, and the patient gets Xopenex levalbuterol inhalation therapy 0.63 mg q.6 hours. PLAN: The patient is treated with pain medications. The procedure was successful. The patient is improved this morning. We will continue current management and transfuse him the second unit of blood. His hemoglobin this morning was 8.9 and yesterday it was 8.2. He received 1 unit of blood yesterday, and we are giving him the second unit today and we will monitor his hemoglobin. 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 His white count is 22,000. Prognosis is guarded. Condition is improving. Giselle Polk MD
--- NOTE | 2017-05-24 13:29 | CP.PCM.CON ---
History of Present Illness - History of Present Illness History of Present Illness: 87 year old male with PMH of ight foot necrotic ulcer with cellulitis, UTI with Enterococcus and Klebsiella, chronic renal failure, history of DVT, DM, metastatic Prostate CA, history of Enterococcus UTI, atrial fibrillation, S/P pacemaker and defibrillator placement, chronic CHF, COPD, hypothyroidism was recently in [facility] last month for lower urinary tract infection in a patient with indwelling Schroeder catheter growing Carbapenem-resistant Klebsiella and was treated successfully with Avycaz. He was then transferred to another facility. There he developed hematuria and abdominal bloating. On transfer to [facility], Urology proceeded with cystoscopy with manual evacuation of blood clots in the urinary bladder. After the procedure, the patient developed leukcytosis with bandemia. The patient denies fever or chills, no nausea or vomiting, no chest pain, no SOB, no cough or colds, has some abdominal pain, headache or dizziness, no diarrhea. Infectious Diseases consult is requested to further evaluate and manage. Review of Systems - Review of Systems All systems: reviewed and no additional remarkable complaints except (as per HPI ) Past Patient History - Infectious Disease Hx of Infectious Diseases: None - Tetanus Immunizations Tetanus Immunization: Unknown - Past Medical History & Family History Past Medical History?: Yes - Past Social History Smoking Status: Former Smoker - CARDIAC Hx Cardiac Disorders: Yes (ACS, CAD, CABG) Hx Cardia Arrhythmia: Yes Hx Congestive Heart Failure: Yes Hx Hypertension: Yes Hx Internal Defibrillator: Yes Hx Pacemaker: Yes Hx Peripheral Edema: Yes (aleft ankle/foot) Hx Peripheral Vascular Disease: Yes Other/Comment: multiple angioplastys - PULMONARY Hx Respiratory Disorders: (hs home o2 and nebulizer machine) Hx Asthma: Yes Hx Bronchitis: Yes Hx Chronic Obstructive Pulmonary Disease (COPD): Yes - NEUROLOGICAL Hx Neurological Disorder: No - HEENT Hx HEENT Problems: Yes ([place]) Hx Cataracts: Yes (WITH b/t SURGERY) Hx Glaucoma: Yes - RENAL Hx Chronic Kidney Disease: Yes Hx Renal Failure: Yes Other/Comment: neurogenic bladder - ENDOCRINE/METABOLIC Hx Diabetes Mellitus Type 2: Yes Hx Hypothyroidism: Yes - HEMATOLOGICAL/ONCOLOGICAL Hx Blood Disorders: Yes Hx Anemia: Yes (in past with blood transfusion) 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) Other/Comment: pt dx in 2001 had radiation trreatments, dx again in 2016 was taking po chemo, stopped due to recommendation by dr Carballo as per pt due to pt taking amidorone for 25 yrs was not compatable - INTEGUMENTARY Other/Comment: multiple skin discolorations and tatoos both arms, multiple brown skin discolorations ble - MUSCULOSKELETAL/RHEUMATOLOGICAL Hx Falls: No - GASTROINTESTINAL Hx Gastrointestinal Disorders: Yes (constipation) - GENITOURINARY/GYNECOLOGICAL Hx Genitourinary Disorders: Yes Hx Hematuria: Yes (and clots) Hx Prostate Problems: Yes Hx Urinary Tract Infection: Yes Other/Comment: bladder irrigation - PSYCHIATRIC Hx Substance Use: No - SURGICAL HISTORY Hx Cardiac Catheterization: Yes (4 stents) Hx Coronary Stent: Yes (x4 2001) Hx Open Heart Surgery: Yes (int pacemaker/defibrillator) Other/Comment: cardiac stents, 4 quadruple bypass in the past 3 years, indwelling schroeder catheter placement, testicular sx. cystoscopy x3 weeks ago, left shoulder cyst removed 1988, rcw pac 2 wks ago - ANESTHESIA Hx Anesthesia Reactions: No Hx Malignant Hyperthermia: No Meds Allergies/Adverse Reactions: Allergies Allergy/AdvReac Type Severity Reaction Status Date / Time Iodinated Contrast- Oral and Allergy ANAPHYLAXIS Verified 05/23/17 09:56 IV Dye levofloxacin [From Levaquin] Allergy ANAPHYLAXIS Verified 05/23/17 09:56 - Medications Medications: Current Medications Amiodarone HCl (Cordarone) 200 mg PO DAILY [facility] Atorvastatin Calcium (Lipitor) 10 mg PO DIN [facility] Last Admin: 05/23/17 18:13 Dose: Not Given Digoxin (Lanoxin) 0.125 mg PO BID [facility] Last Admin: 05/23/17 19:16 Dose: Not Given Docusate Sodium (Colace) 100 mg PO BID [facility] Last Admin: 05/23/17 18:12 Dose: Not Given Doxercalciferol (Hectorol) 0.5 mcg PO DAILY [facility] Furosemide (Lasix) 40 mg PO BID [facility] Last Admin: 05/23/17 19:17 Dose: Not Given Meropenem 1g/NS 100mL IVPB (Meropenem 1g/Ns 100ml Ivpb) 1 gm in 100 mls @ 100 mls/hr IVPB Q12 [facility] PRN Reason: Protocol Stop: 05/24/17 09:39 Levalbuterol HCl (Xopenex) 0.63 mg IH [id number] [facility] Last Admin: 05/24/17 01:28 Dose: Not Given Levothyroxine Sodium (Synthroid) 100 mcg PO 0600 [facility] Last Admin: 05/24/17 05:25 Dose: 100 mcg Metoclopramide HCl (Reglan) 10 mg IV ONCE PRN PRN Reason: Nausea/Vomiting Montelukast Sodium (Singulair) 10 mg PO DAILY [facility] Morphine Sulfate (Morphine) 4 mg IVP Q4H PRN PRN Reason: Pain, severe (8-10) Last Admin: 05/24/17 03:53 Dose: 4 mg Pantoprazole Sodium (Protonix Ec Tab) 40 mg PO 0600 [facility] Last Admin: 05/24/17 05:25 Dose: 40 mg Polyethylene Glycol (Miralax) 17 gm PO BID [facility] Last Admin: 05/23/17 18:13 Dose: Not Given Prednisone (Prednisone Tab) 10 mg PO DAILY [facility] Sodium Phosphate (Fleet Enema) 135 ml RC Q8 PRN PRN Reason: Constipation Tramadol HCl (Ultram) 50 mg PO TID PRN PRN Reason: Pain Physical Exam - Constitutional Appears: Non-toxic, No Acute Distress - Head Exam Head Exam: NORMAL INSPECTION - ENT Exam ENT Exam: Mucous Membranes Moist - Neck Exam Neck exam: Negative for: Meningismus - Respiratory Exam Respiratory Exam: Decreased Breath Sounds - Cardiovascular Exam Cardiovascular Exam: +S1, +S2 - GI/Abdominal Exam GI & Abdominal Exam: Soft, Tenderness (some tenderness on the lower abdomen; noted total bladder irrigation equipment in place with some clots noted) Results - Vital Signs Recent Vital Signs: Last Vital Signs Temp 99.5 F 05/24/17 00:00 Pulse 75 05/24/17 06:00 Resp 19 05/24/17 00:00 BP 100/44 L 05/24/17 00:00 Pulse Ox 100 05/24/17 00:00 - Labs Result Diagrams: 05/24/17 05:20 05/24/17 05:20 Labs: Laboratory Results - last 24 hr 05/23/17 05/23/17 05/23/17 15:22 16:07 21:40 WBC RBC Hgb Hct MCV MCH MCHC RDW Plt Count MPV Neutrophils % (Manual) Band Neutrophils % Lymphocytes % (Manual) Monocytes % (Manual) Basophils % (Manual) Toxic Granulation Platelet Evaluation Sodium Potassium Chloride Carbon Dioxide Anion Gap BUN Creatinine Est GFR ( Amer) Est GFR (Non-Af Amer) POC Glucose (mg/dL) 299 H 180 H Random Glucose Calcium Blood Type O POSITIVE Antibody Screen Negative Crossmatch See Detail BBK History Checked Patient has bt 05/24/17 05/24/17 05/24/17 05:20 05:20 07:34 WBC 22.3 H D RBC 3.17 L Hgb 8.9 L Hct 27.7 L MCV 87.4 MCH 28.1 MCHC 32.1 RDW 15.1 H Plt Count 205 MPV 9.3 Neutrophils % (Manual) 83 H Band Neutrophils % 9 H Lymphocytes % (Manual) 2 L Monocytes % (Manual) 5 Basophils % (Manual) 1 Toxic Granulation Slight Platelet Evaluation Normal Sodium 135 Potassium 4.4 Chloride 101 Carbon Dioxide 28 Anion Gap 10 BUN 38 H Creatinine 2.1 H Est GFR ( Amer) 36 Est GFR (Non-Af Amer) 30 POC Glucose (mg/dL) 139 H Random Glucose 138 H Calcium 8.0 L Blood Type Antibody Screen Crossmatch BBK History Checked Assessment & Plan - Assessment and Plan (Free Text) Plan: Assessment 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
--- NOTE | 2017-05-24 14:22 | CP.PCM.CON ---
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 Patient also complains of severe bladder spasms that are intermittent and extremely painful 10/10 in severity. Urology was consulted and pt went for an Cystoscopy with evacuation of clots. Catheter replacement. CBI. He denies any buckner, dizziness, f/c , cp, sob, +abd pain, n/v/d. PMH: as above PSH, cystoscopy x3 weeks ago, port-a-cath placement 04/28/17, CABG, ICD placement FH: denies SH:Non smoker, no alcohol or drug use. Live independently. Worked in dye/ chemical industry All: Iodinated contrast, oral/IV dye; Levofloxacin Review of Systems - Review of Systems All systems: reviewed and no additional remarkable complaints except (HPI) Past Patient History - Infectious Disease Hx of Infectious Diseases: None - Tetanus Immunizations Tetanus Immunization: Unknown - Past Medical History & Family History Past Medical History?: Yes - Past Social History Smoking Status: Unknown If Ever Smoked - CARDIAC Hx Cardiac Disorders: Yes (ACS, CAD, CABG) Hx Congestive Heart Failure: Yes Hx Hypertension: Yes - PULMONARY Hx Chronic Obstructive Pulmonary Disease (COPD): Yes - NEUROLOGICAL Hx Neurological Disorder: No - HEENT Hx HEENT Problems: Yes ([place]) Hx Cataracts: Yes (WITH b/t SURGERY) Hx Glaucoma: Yes - RENAL Hx Renal Failure: Yes - ENDOCRINE/METABOLIC Hx Diabetes Mellitus Type 2: Yes Hx Hypothyroidism: Yes - HEMATOLOGICAL/ONCOLOGICAL Hx Blood Disorders: Yes Hx Anemia: Yes (in past with blood transfusion) 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) Other/Comment: pt dx in 2001 had radiation trreatments, dx again in 2016 was taking po chemo, stopped due to recommendation by dr Carballo as per pt due to pt taking amidorone for 25 yrs was not compatable - INTEGUMENTARY Other/Comment: multiple skin discolorations and tatoos both arms, multiple brown skin discolorations ble - MUSCULOSKELETAL/RHEUMATOLOGICAL Hx Arthritis: Yes Hx Falls: No - GASTROINTESTINAL Hx Gastrointestinal Disorders: No - GENITOURINARY/GYNECOLOGICAL Hx Genitourinary Disorders: Yes Hx Hematuria: Yes Hx Prostate Cancer: Yes Hx Reproductive Disorders: No - PSYCHIATRIC Hx Psychophysiologic Disorder: No Hx Emotional Abuse: No Hx Physical Abuse: No Hx Substance Use: No - SURGICAL HISTORY Hx Coronary Stent: Yes (x4 2001) Hx Open Heart Surgery: Yes (int pacemaker/defibrillator) Other/Comment: cardiac stents, 4 quadruple bypass in the past 3 years, indwelling schroeder catheter placement. cystoscopy x3 weeks ago, left shoulder cyst removed 1988 - ANESTHESIA Hx Anesthesia Reactions: No Hx Malignant Hyperthermia: No Meds Allergies/Adverse Reactions: Allergies Allergy/AdvReac Type Severity Reaction Status Date / Time Iodinated Contrast- Oral and Allergy ANAPHYLAXIS Verified 05/23/17 09:56 IV Dye levofloxacin [From Levaquin] Allergy ANAPHYLAXIS Verified 05/23/17 09:56 - Medications Medications: Current Medications Amiodarone HCl (Cordarone) 200 mg PO DAILY [facility] Last Admin: 05/24/17 10:15 Dose: 200 mg Atorvastatin Calcium (Lipitor) 10 mg PO DIN [facility] Last Admin: 05/23/17 18:13 Dose: Not Given Digoxin (Lanoxin) 0.125 mg PO BID [facility] Last Admin: 05/24/17 10:15 Dose: 0.125 mg Docusate Sodium (Colace) 100 mg PO BID [facility] Last Admin: 05/24/17 10:15 Dose: 100 mg Doxercalciferol (Hectorol) 0.5 mcg PO DAILY [facility] Last Admin: 05/24/17 10:15 Dose: 0.5 mcg Furosemide (Lasix) 40 mg PO BID [facility] Last Admin: 05/24/17 10:18 Dose: 40 mg Levalbuterol HCl (Xopenex) 0.63 mg IH [id number] [facility] Last Admin: 05/24/17 13:18 Dose: 0.63 mg Levothyroxine Sodium (Synthroid) 100 mcg PO 0600 [facility] Last Admin: 05/24/17 05:25 Dose: 100 mcg Metoclopramide HCl (Reglan) 10 mg IV ONCE PRN PRN Reason: Nausea/Vomiting Montelukast Sodium (Singulair) 10 mg PO DAILY [facility] Last Admin: 05/24/17 10:21 Dose: 10 mg Morphine Sulfate (Morphine) 4 mg IVP Q4H PRN PRN Reason: Pain, severe (8-10) Last Admin: 05/24/17 13:58 Dose: 4 mg Pantoprazole Sodium (Protonix Ec Tab) 40 mg PO 0600 [facility] Last Admin: 05/24/17 05:25 Dose: 40 mg Phenazopyridine HCl (Pyridium) 200 mg PO Q8 [facility] Last Admin: 05/24/17 13:57 Dose: 200 mg Polyethylene Glycol (Miralax) 17 gm PO BID [facility] Last Admin: 05/24/17 10:20 Dose: 17 gm Prednisone (Prednisone Tab) 10 mg PO DAILY [facility] Last Admin: 05/24/17 10:21 Dose: 10 mg Sodium Phosphate (Fleet Enema) 135 ml RC Q8 PRN PRN Reason: Constipation Tramadol HCl (Ultram) 50 mg PO TID PRN PRN Reason: Pain Physical Exam - Constitutional Appears: No Acute Distress - Head Exam Head Exam: ATRAUMATIC, NORMAL INSPECTION, NORMOCEPHALIC - Eye Exam Eye Exam: EOMI, Normal appearance, PERRL Pupil Exam: NORMAL ACCOMODATION, PERRL - ENT Exam ENT Exam: Mucous Membranes Moist, Normal Exam - Neck Exam Neck exam: Positive for: Normal Inspection - Respiratory Exam Respiratory Exam: Clear to Auscultation Bilateral, NORMAL BREATHING PATTERN. absent: Wheezes - Cardiovascular Exam Cardiovascular Exam: REGULAR RHYTHM, RRR, +S1, +S2 - GI/Abdominal Exam GI & Abdominal Exam: Normal Bowel Sounds, Soft. absent: Tenderness - Extremities Exam Extremities exam: Positive for: normal inspection - Back Exam Back exam: NORMAL INSPECTION - Neurological Exam Neurological exam: Alert, Oriented x3 - Psychiatric Exam Psychiatric exam: Normal Affect, Normal Mood - Skin Skin Exam: Dry, Intact, Normal Color, Warm Results - Vital Signs Recent Vital Signs: Last Vital Signs Temp 97.1 F L 05/24/17 12:00 Pulse 68 05/24/17 12:00 Resp 19 05/24/17 12:00 BP 127/40 L 05/24/17 12:00 Pulse Ox 100 05/24/17 00:00 - Labs Result Diagrams: 05/24/17 05:20 05/24/17 05:20 Labs: Laboratory Results - last 24 hr 05/23/17 05/23/17 05/23/17 15:22 16:07 21:40 WBC RBC Hgb Hct MCV MCH MCHC RDW Plt Count MPV Neutrophils % (Manual) Band Neutrophils % Lymphocytes % (Manual) Monocytes % (Manual) Basophils % (Manual) Toxic Granulation Platelet Evaluation Sodium Potassium Chloride Carbon Dioxide Anion Gap BUN Creatinine Est GFR ( Amer) Est GFR (Non-Af Amer) POC Glucose (mg/dL) 299 H 180 H Random Glucose Calcium Blood Type O POSITIVE Antibody Screen Negative Crossmatch See Detail BBK History Checked Patient has bt 05/24/17 05/24/17 05/24/17 05:20 05:20 07:34 WBC 22.3 H D RBC 3.17 L Hgb 8.9 L Hct 27.7 L MCV 87.4 MCH 28.1 MCHC 32.1 RDW 15.1 H Plt Count 205 MPV 9.3 Neutrophils % (Manual) 83 H Band Neutrophils % 9 H Lymphocytes % (Manual) 2 L Monocytes % (Manual) 5 Basophils % (Manual) 1 Toxic Granulation Slight Platelet Evaluation Normal Sodium 135 Potassium 4.4 Chloride 101 Carbon Dioxide 28 Anion Gap 10 BUN 38 H Creatinine 2.1 H Est GFR ( Amer) 36 Est GFR (Non-Af Amer) 30 POC Glucose (mg/dL) 139 H Random Glucose 138 H Calcium 8.0 L Blood Type Antibody Screen Crossmatch BBK History Checked Assessment & Plan - Assessment and Plan (Free Text) Assessment: 87 M with history of stage 4 castrate resistant prostate cancer, chronic heart failure, COPD, DMII, coronary artery disease, hypothyroidism, and arthritis who was admitted for hematuria and blood clots. Pt is s/p cystoscopy with evacuation of clots POD 1, cath replacement, with continuous bladder irrigation. Plan: - Medical management - F/u with urology recs - cont bladder irrigation - Cont with Pyridium and Transexamic acid - Pain control - palmidronate 60mg x 1 for bone mets - Prednisone 10mg daily (was previously on Zytiga but not tolerated) - Cytotoxin as an outpt - WBC of 22.3 - ID consulted - F/u nephro, cardio, ID consult. - GI and DVT ppx - PT and OT Case and plan was seen, reviewed and discussed in detail with Dr Carballo.
[2017-05-24] MEDS: Sodium Chloride 0.9% 1,000 ML IV SCH (17:42)
--- NOTE | 2017-05-24 22:40 | CON ---
DATE: 05/24/2017 REASON FOR CONSULTATION: Acute kidney injury, lower abdominal pain, hematuria. HISTORY OF PRESENTING ILLNESS: An 87-year-old male with metastatic prostate cancer, recurrent hematuria, recurrent UTI, is back again with complaints of severe lower abdominal pain, clots in the Avendano bag. He presented to the emergency room, [facility]. He was in excruciating pain. Currently, he is receiving CBI. He still has lower abdominal pain. His catheter was changed. He was found to have elevated creatinine of 2.1 this morning. His creatinine at the time of presentation was 1.1. PAST MEDICAL AND SURGICAL HISTORY: NIDDM, hypertension, CAD, CHF, atrial fibrillation, COPD, metastatic prostate cancer, cystitis, hematuria, multiple episodes of acute kidney injury, dehydration, indwelling Avendano. FAMILY HISTORY: Noncontributory. SOCIAL HISTORY: No smoking, no alcohol use, no IV drug abuse. ALLERGIES: LEVAQUIN AND IV CONTRAST. MEDICATIONS: Colace, Cordarone 200 mg daily, Hectorol, digoxin, Lasix 40 p.o. b.i.d., Lipitor 10, MiraLax, morphine, pamidronate ??, prednisone, Protonix, Pyridium, Reglan, Singulair, Synthroid, tramadol, Xopenex. REVIEW OF SYSTEMS: All systems are reviewed, pertinent positives as mentioned in the history of presenting illness. Rest unremarkable. PHYSICAL EXAMINATION: GENERAL: Elderly male lying in bed. VITAL SIGNS: Blood pressure 100/44, heart rate 81, respiratory rate 18 and temperature 99.5. HEENT: Normocephalic, atraumatic. NECK: Supple, no JVD. LUNGS: Bilateral equal air entry, bilateral rhonchi. CARDIAC: S1 and S2. Regular rate and rhythm. No murmur. No rub. ABDOMEN: Obese, distended, tenderness in the lower abdomen. Bowel sounds present. EXTREMITIES: 1+ pitting edema of the lower extremities. INTAKE AND OUTPUT: 1100/3700 ?. LABORATORY DATA: WBC 22.3, hemoglobin 8.9, hematocrit 27.7 and platelets 205. Sodium 135, potassium 4.4, chloride 101, CO2 of 28, BUN 38, creatinine 2.1, glucose 138 and calcium 8.0. ASSESSMENT: 1. Acute kidney injury superimposed on chronic kidney disease stage III. 2. Metastatic prostate cancer with bladder wall infiltration. 3. Recurrent hematuria, clot retention. 4. Severe anemia. 5. Leukocytosis. 6. Atrial fibrillation. 7. Noninsulin-dependent diabetes mellitus. 8. Hypertension. PLAN: 1. Continue bladder irrigation. 2. Expect to see creatinine start improving once clots have been removed. 3. Transfuse if recommended by hematology. 4. No workup needed from renal standpoint. Thank you for the courtesy of this consultation. We will follow this patient closely with you. Marianne Lozano MD
[2017-05-25] MEDS: Levalbuterol 0.63 MG/3 ML Inhal Soln UD IH SCH ×4 (01:42→19:59)
--- NOTE | 2017-05-25 04:41 | CON ---
REASON FOR CONSULTATION AND FOLLOWUP: Coronary artery disease status post AICD, preop evaluation for cystoscopy, cardiac evaluation followup. BRIEF CLINICAL HISTORY: An 87-year-old male with past medical history significant for status post PTCA, pre CABG status post PTCA, post CABG status post CABG, status post AICD, recently 2 to 3 months ago had AICD generator change, history of chronic renal insufficiency, history of prostate CA, indwelling Avendano catheter admitted because of hematuria Home where the patient developed abdominal pain, and Avendano catheter clogged. The patient was admitted here, the patient is a rapid response and was taken to OR for irrigation of the bladder. The patient denies any chest pain, shortness of breath, or any palpitation. PAST MEDICAL HISTORY: Significant for COPD, CAD, CABG, pre and post CABG PTCA status post AICD generator change, 2 to 3 month ago, indwelling Avendano catheter, prostate CA with metastasis, paroxysmal atrial fibrillation, history of DVT, history of COPD. At one point, the patient was on Pradaxa, but held because of hematuria, history of recurrent hematuria, indwelling Avendano catheter 3-way; history of non-STEMI, decided to treat medically; history of chronic renal insufficiency. Recent cardiac workup as follows: The patient had echo on 12/20/2016, ejection fraction of 45%, moderate mitral regurgitation, [id number] tricuspid regurgitation, RV systolic pressure of 43. CURRENT MEDICATIONS: The patient is taking prednisone, tranexamic acid for hematuria, Protonix, levothyroxine, Lasix, Lanoxin, Lipitor and amiodarone. REVIEW OF SYSTEMS: As per HPI. PHYSICAL EXAMINATION: VITAL SIGNS: Height of the patient is 5 feet 7 inches, weight of the patient is 174 pounds. Temperature afebrile, heart rate 71 and blood pressure 117/64. HEENT: PERRLA. Extraocular muscles intact. NECK: Supple. No carotid bruits. No thyromegaly. CHEST: Clear to auscultation. HEART: S1 and S2 regular. ABDOMEN: Soft. EXTREMITIES: Clubbing and cyanosis are negative. EKG shows V-paced rhythm, underlying normal sinus. LABORATORY DATA: As follows: WBC 22.3, hemoglobin 8.9, hematocrit 27.7 and platelet count 205. Chemistry shows sodium 135, potassium 4.4, chloride 101, carbon dioxide 20, anion gap of 10, BUN 28 and creatinine 2.1. TSH 3.42 as of 05/17/2017. IMPRESSION: An 87-year-old male with a past medical history significant for coronary artery disease, status post pre and post coronary artery bypass graft, percutaneous transluminal coronary angioplasty, cardiomyopathy ischemic, ejection fraction of 45%, recent echocardiogram mild to moderate tricuspid regurgitation, history of automatic implantable cardioverter-defibrillator status post automatic implantable cardioverter-defibrillator generator change 2 to 3 months ago, history of paroxysmal atrial fibrillation on amiodarone, now patient in normal sinus; history of deep vein thrombosis, was on at one point anticoagulation, Pradaxa held in because of recurrent hematuria; history of prostate carcinoma causing recurrent hematuria, and 3-way Avendano catheter with indwelling Avendano catheter, admitted yesterday with a clog of the catheter. Later on rapid response underwent operating room for bladder irrigation. The patient is scheduled for cystoscopy possibly on Monday. Preop clearance is required. RECOMMENDATION: The patient has no active ischemia, no active evidence of CHF or arrhythmia. The patient is okay to go from cardiology point of view with moderate to high risk for procedure because of underling comorbidity, but no absolute contraindication for anesthesia or cystoscopy. The patient can go with moderate to high risk. We will discuss with you, and I will discuss with Dr. Masterson and Dr. Louise. Jordan Boone; follow closely. Interim, continue amiodarone 200 mg daily, continue insulin, continue digoxin, continue gentle Lasix 5.34 , continue atorvastatin, morphine, monitor renal function closely. We will add TSH and blood workup in the morning. Thank you Dr. Polk for providing us the opportunity in taking care of the patient, Perry Trinh. Mely Chavarria MD
[2017-05-25] MEDS: Levothyroxine 100 MCG TAB PO SCH (05:33)
[2017-05-25] MEDS: Pantoprazole 40 mg EC Tab PO SCH (05:33)
[2017-05-25 05:56] LABS: HEMOGLOBIN 9.1 g/dL (14.0-18.0); MEAN CELL VOLUME 86.3 fl (80.0-105.0); MEAN CORPUSCULAR HEMOGLOBIN 27.7 pg (25.0-35.0); MEAN PLATELET VOLUME 9.3 fl (7.0-11.0); PLATELET COUNT 157 10^3/uL (120.0-450.0); RBC 3.29 10^6/uL (3.5-6.1); RED CELL DISTRIBUTION WIDTH 15.6 % (11.5-14.5); WHITE BLOOD COUNT 20.9 10^3/ul (4.5-11.0)
[2017-05-25 06:10] LABS: CALCIUM 7.5 mg/dL (8.4-10.5)
[2017-05-25 06:33] LABS: BAND 5 % (0-2); LYMPHOCYTE 4 % (22.0-35.0)
[2017-05-25 06:34] LABS: MONOCYTE 4 % (1.0-6.0); NEUTROPHIL 87 % (50.0-70.0); PLATELET ESTIMATE NORMAL (NORMAL)
--- NOTE | 2017-05-25 07:59 | CP.PCM.PN ---
Subjective - Date & Time of Evaluation Date of Evaluation: 05/25/17 Time of Evaluation: 07:35 - Subjective Subjective: Patient is seen this morning. He complains of abdominal pain, epigastric and lower quadrants. Objective - Vital Signs/Intake and Output Vital Signs (last 24 hours): Temp Pulse Resp BP Pulse Ox 98.0 F 72 19 139/67 97 05/25/17 06:00 05/25/17 06:00 05/25/17 06:00 05/25/17 06:00 05/25/17 06:00 Intake and Output: 05/25/17 05/25/17 06:59 18:59 Intake Total 1260 Balance 1260 - Medications Medications: Current Medications Amiodarone HCl (Cordarone) 200 mg PO DAILY [facility] Last Admin: 05/24/17 10:15 Dose: 200 mg Atorvastatin Calcium (Lipitor) 10 mg PO DIN [facility] Last Admin: 05/24/17 17:41 Dose: 10 mg Digoxin (Lanoxin) 0.125 mg PO BID [facility] Last Admin: 05/24/17 17:40 Dose: 0.125 mg Docusate Sodium (Colace) 100 mg PO BID [facility] Last Admin: 05/24/17 17:39 Dose: 100 mg Doxercalciferol (Hectorol) 0.5 mcg PO DAILY [facility] Last Admin: 05/24/17 10:15 Dose: 0.5 mcg Furosemide (Lasix) 40 mg PO DAILY [facility] Sodium Chloride (Sodium Chloride 0.9%) 1,000 mls @ 50 mls/hr IV .Q20H [facility] Stop: 05/25/17 23:59 Last Admin: 05/24/17 17:42 Dose: 50 mls/hr Levalbuterol HCl (Xopenex) 0.63 mg IH [id number] [facility] Last Admin: 05/25/17 07:12 Dose: 0.63 mg Levothyroxine Sodium (Synthroid) 100 mcg PO 0600 [facility] Last Admin: 05/25/17 05:33 Dose: 100 mcg Metoclopramide HCl (Reglan) 10 mg IV ONCE PRN PRN Reason: Nausea/Vomiting Montelukast Sodium (Singulair) 10 mg PO DAILY [facility] Last Admin: 05/24/17 10:21 Dose: 10 mg Morphine Sulfate (Morphine) 4 mg IVP Q4H PRN PRN Reason: Pain, severe (8-10) Last Admin: 05/24/17 22:03 Dose: 4 mg Pantoprazole Sodium (Protonix Ec Tab) 40 mg PO 0600 [facility] Last Admin: 05/25/17 05:33 Dose: 40 mg Phenazopyridine HCl (Pyridium) 200 mg PO Q8 [facility] Last Admin: 05/25/17 05:33 Dose: 200 mg Polyethylene Glycol (Miralax) 17 gm PO BID [facility] Last Admin: 05/24/17 17:41 Dose: 17 gm Prednisone (Prednisone Tab) 10 mg PO DAILY [facility] Last Admin: 05/24/17 10:21 Dose: 10 mg Sodium Phosphate (Fleet Enema) 135 ml RC Q8 PRN PRN Reason: Constipation Tramadol HCl (Ultram) 50 mg PO TID PRN PRN Reason: Pain - Labs Labs: 05/25/17 05:45 05/25/17 05:45 PT 11.7 Seconds (9.9-11.8) 05/23/17 10:00 INR 1.08 (0.93-1.08) 05/23/17 10:00 APTT 26.3 Seconds (23.7-30.8) 05/23/17 10:00 - Constitutional Appears: No Acute Distress - Head Exam Head Exam: ATRAUMATIC, NORMOCEPHALIC - Respiratory Exam Respiratory Exam: Clear to Ausculation Bilateral, NORMAL BREATHING PATTERN - Cardiovascular Exam Cardiovascular Exam: +S1, +S2 - GI/Abdominal Exam GI & Abdominal Exam: Soft, Tenderness, Normal Bowel Sounds Additional comments: mild diffuse tenderness - Neurological Exam Neurological Exam: Alert, Awake, Oriented x3 Assessment and Plan - Assessment and Plan (Free Text) Assessment: Hematuria Prostate cancer with mets to lymph nodes Coronary Artery Disease Chronic systolic and diastolic heart failure Chronic obstructive pulmonary disease Hypothyroidism DMII Plan: Patient continues to complain of abdominal pain. continue protonix and morphine as needed for pain. Urine is orange this morning and this is most likely due to Pyridium which was added by oncology yesterday Patient went for cystoscopy with manual removal and suctioning of clots. Areas of oozing blood were seen on cystoscopy. Repeat cystoscopy to cauterize sites of bleeding. hemoglobin 9.1 today after 2 units of PRBCs. Will transfuse 1 unit today of fresh frozen plasma. monitor H&H
[2017-05-25] MEDS: Insulin Human NPH/Reg 70/30 Vial(3 ml) SC SCH ×4 (08:46→21:57)
[2017-05-25] MEDS: Digoxin 125 mcg (0.125 mg) Tab PO SCH ×2 (09:45→17:06)
[2017-05-25] MEDS: POLYETHYLENE GLYCOL 3350 17 GM/Dose PACKET PO SCH ×2 (09:46→17:06)
--- NOTE | 2017-05-25 12:48 | CT ---
PROCEDURE: CT Abdomen and Pelvis without intravenous contrast HISTORY: Abd pain COMPARISON: 04/23/2017 TECHNIQUE: Without contrast.. Contrast Dose: 0 Radiation dose: Total exam DLP = 547.94 mGy-cm. This CT exam was performed using one or more of the following dose reduction techniques: Automated exposure control, adjustment of the mA and/or kV according to patient size, and/or use of iterative reconstruction technique. FINDINGS: LOWER THORAX: Cardiomegaly. AICD. Trace bilateral pleural effusion and minimal dependent atelectasis. LIVER: Normal size and contour. Diffusely increased attenuation consistent with chronic amiodarone therapy. No mass. No intrahepatic biliary ductal dilatation. GALLBLADDER AND BILE DUCTS: Cholelithiasis. Tiny stone seen in gallbladder neck. No mural thickening or pericholecystic fluid. PANCREAS: Unremarkable. No gross lesion or ductal dilatation. SPLEEN: Unremarkable. ADRENALS: Unremarkable. No mass. KIDNEYS AND URETERS: Unremarkable. No hydronephrosis. No solid mass. VASCULATURE: Unremarkable. No aortic aneurysm. BOWEL: Unremarkable. No obstruction. No gross mural thickening. APPENDIX: Unremarkable. Normal appendix. PERITONEUM: Unremarkable. No free fluid. No free air. LYMPH NODES: Numerous mildly enlarged retroperitoneal and pelvic lymph nodes. There are numerous subcentimeter lymph nodes within the small bowel mesenteric. There are retrocrural lymph nodes. BLADDER: The bladder is decompressed. Nevertheless, the wall is considered diffusely thickened with ill-defined border and mild perivesical inflammatory change. Findings are concerning for acute cystitis. A Avendano catheter is seen within the urinary bladder. REPRODUCTIVE: Status post hysterectomy BONES: Numerous sclerotic metastases as noted previously in the thoracic and lumbar spine, sacrum, iliac bones and proximal right femur. OTHER FINDINGS: None. IMPRESSION: Findings concerning for acute cystitis. Please correlate clinically and with urinalysis. Extensive sclerotic metastasis. Extensive retroperitoneal and pelvic lymphadenopathy. Small bowel mesenteric lymphadenopathy. Cholelithiasis with tiny calculus in gallbladder neck but no other findings to suggest acute cholecystitis. Please correlate clinically. Additional minor findings as above.
[2017-05-25 13:15] LABS: URINE BILIRUBIN NEGATIVE (NEGATIVE); URINE BLOOD LARGE (NEGATIVE); URINE GLUCOSE (UA) NEGATIVE (NEGATIVE); URINE LEUKOCYTE ESTERASE LARGE Leu/uL (NEGATIVE); URINE NITRATE POSITIVE (NEGATIVE); URINE PROTEIN 30 mg/dL (<30 mg/dL)
[2017-05-25 13:16] LABS: URINE APPEARANCE CLOUDY (CLEAR); URINE COLOR YELLOW (YELLOW)
--- NOTE | 2017-05-25 13:20 | PN ---
DATE: 05/25/2017 SUBJECTIVE: The patient is seen sitting up in bed. He is awake. He is alert. He is complaining of severe abdominal pain. He reports there was problem with the CBI last night, it was not working. He also complains of being weak. PHYSICAL EXAMINATION GENERAL: Elderly male sitting in the bed. VITAL SIGNS: Blood pressure 108/50, heart rate 77, respiratory rate 18, temperature 98. HEENT: Normocephalic and atraumatic. Positive pallor. NECK: Supple. No JVD. LUNGS: Bilateral rhonchi, bilateral equal air entry. No rales. CARDIAC: S1 and S2. Regular rate and rhythm. No murmur. No rubs. ABDOMEN: Obese, distended, soft. Positive tenderness in the lower abdomen, bowel sounds present. EXTREMITIES: No lower extremity edema. INTAKE AND OUTPUT: 1530/not charted. LABORATORY DATA: WBC 20.9, hemoglobin 9, hematocrit 28, platelets 157. Sodium 135, potassium 4.3, chloride 102, CO2 27, BUN 35, creatinine 1.9, glucose 99, calcium 7.5, phosphorus 4.0, magnesium 2.0, albumin 2.8, corrected calcium is 8.3. Urine culture Klebsiella. CURRENT MEDICATIONS: Ceftazidime/avibactam q.12, Colace, Cordarone, sodium phosphate, Hectorol, Digoxin, Lasix 40 mg daily, Lipitor, Miralax, morphine, prednisone, Protonix, Pyridium, Reglan, Singulair, normal saline at 50 mL per hour, Synthroid, Xopenex. ASSESSMENT AND PLAN: 1. Acute kidney injury superimposed on chronic kidney disease stage III. 2. Resistant Klebsiella urinary tract infection. 3. Recurrent hematuria, prostate cancer with bladder wall infiltration, cystitis. 4. Severe anemia. 5. Clot retention. 6. Kby-xadhakd-zrsunpvwa diabetes mellitus. 7. Atrial fibrillation/congestive heart failure/cardiomyopathy. 8. Bone metastasis. PLAN: 1. Agree with lowering Lasix. 2. Agree with low dose IV fluids. 3. Continue CBI. 4. Discuss this case with Dr. Carballo, to get pamidronate for bone mets. 5. Monitor calcium closely. 6. Antibiotics for resistant Klebsiella as per ID recommendations, dose all antibiotics for creatinine clearance about 30 mL per minute. Marianne Lozano MD [facility] # [id number]
--- NOTE | 2017-05-25 13:21 | CP.PCM.PN ---
Subjective - Date & Time of Evaluation Date of Evaluation: 05/25/17 Time of Evaluation: 09:00 - Subjective Subjective: Heme/onc note for Dr Carballo: Pt was seen and examined at bedside with Dr Carballo. No acute events overnight. Pt c/o Abdominal pain, denies any nausea or vomiting. Denies any hematuria. Denies any buckner, dizziness, f/c, n/v/d, sob, cp. Objective - Vital Signs/Intake and Output Vital Signs (last 24 hours): Temp Pulse Resp BP Pulse Ox 98.2 F 75 20 131/59 L 97 05/25/17 12:00 05/25/17 12:00 05/25/17 12:00 05/25/17 12:00 05/25/17 06:00 Intake and Output: 05/25/17 05/25/17 06:59 18:59 Intake Total 1260 Balance 1260 - Medications Medications: Current Medications Amiodarone HCl (Cordarone) 200 mg PO DAILY [facility] Last Admin: 05/25/17 09:45 Dose: 200 mg Atorvastatin Calcium (Lipitor) 10 mg PO DIN [facility] Last Admin: 05/24/17 17:41 Dose: 10 mg Digoxin (Lanoxin) 0.125 mg PO BID [facility] Last Admin: 05/25/17 09:45 Dose: 0.125 mg Docusate Sodium (Colace) 100 mg PO BID [facility] Last Admin: 05/25/17 09:44 Dose: 100 mg Doxercalciferol (Hectorol) 0.5 mcg PO DAILY [facility] Last Admin: 05/25/17 09:45 Dose: 0.5 mcg Furosemide (Lasix) 40 mg PO DAILY [facility] Sodium Chloride (Sodium Chloride 0.9%) 1,000 mls @ 50 mls/hr IV .Q20H [facility] Stop: 05/25/17 23:59 Last Admin: 05/24/17 17:42 Dose: 50 mls/hr Ceftazidime/Avibactam 0.94 gm/ (Sodium Chloride) 100 mls @ 50 mls/hr IVPB Q12H [facility] Last Admin: 05/25/17 10:03 Dose: 50 mls/hr Pamidronate Disodium 60 mg/ (Sodium Chloride) 510 mls @ 127.5 mls/hr IVPB ONCE ONE Stop: 05/25/17 15:01 Last Admin: 05/25/17 11:53 Dose: 127.5 mls/hr Levalbuterol HCl (Xopenex) 0.63 mg IH [id number] [facility] Last Admin: 05/25/17 13:12 Dose: 0.63 mg Levothyroxine Sodium (Synthroid) 100 mcg PO 0600 [facility] Last Admin: 05/25/17 05:33 Dose: 100 mcg Metoclopramide HCl (Reglan) 10 mg IV ONCE PRN PRN Reason: Nausea/Vomiting Montelukast Sodium (Singulair) 10 mg PO DAILY [facility] Last Admin: 05/25/17 09:45 Dose: 10 mg Morphine Sulfate (Morphine) 4 mg IVP Q4H PRN PRN Reason: Pain, severe (8-10) Last Admin: 05/24/17 22:03 Dose: 4 mg Pantoprazole Sodium (Protonix Ec Tab) 40 mg PO 0600 [facility] Last Admin: 05/25/17 05:33 Dose: 40 mg Phenazopyridine HCl (Pyridium) 200 mg PO Q8 [facility] Last Admin: 05/25/17 05:33 Dose: 200 mg Polyethylene Glycol (Miralax) 17 gm PO BID [facility] Last Admin: 05/25/17 09:46 Dose: 17 gm Prednisone (Prednisone Tab) 10 mg PO DAILY [facility] Last Admin: 05/25/17 09:45 Dose: 10 mg Sodium Phosphate (Fleet Enema) 135 ml RC Q8 PRN PRN Reason: Constipation Tramadol HCl (Ultram) 50 mg PO TID PRN PRN Reason: Pain - Labs Labs: 05/25/17 05:45 05/25/17 05:45 PT 11.7 Seconds (9.9-11.8) 05/23/17 10:00 INR 1.08 (0.93-1.08) 05/23/17 10:00 APTT 26.3 Seconds (23.7-30.8) 05/23/17 10:00 - Constitutional Appears: No Acute Distress - Head Exam Head Exam: ATRAUMATIC, NORMAL INSPECTION, NORMOCEPHALIC - Eye Exam Eye Exam: EOMI, Normal appearance, PERRL Pupil Exam: NORMAL ACCOMODATION, PERRL - ENT Exam ENT Exam: Mucous Membranes Moist - Respiratory Exam Respiratory Exam: Clear to Ausculation Bilateral, NORMAL BREATHING PATTERN. absent: Wheezes - Cardiovascular Exam Cardiovascular Exam: REGULAR RHYTHM, RRR, +S1, +S2. absent: Murmur - GI/Abdominal Exam GI & Abdominal Exam: Soft, Tenderness, Normal Bowel Sounds - Extremities Exam Extremities Exam: Full ROM, Normal Capillary Refill, Normal Inspection. absent : Calf Tenderness, Joint Swelling, Pedal Edema - Neurological Exam Neurological Exam: Alert, Awake, CN II-XII Intact, Oriented x3 - Psychiatric Exam Psychiatric exam: Normal Affect, Normal Mood - Skin Skin Exam: Dry, Intact, Normal Color, Warm Assessment and Plan - Assessment and Plan (Free Text) Assessment: 87 M with history of stage 4 castrate resistant prostate cancer, chronic heart failure, COPD, DMII, coronary artery disease, hypothyroidism, and arthritis who was admitted for hematuria and blood clots. Pt is s/p cystoscopy with evacuation of clots POD 1, cath replacement, with continuous bladder irrigation. Plan: - Medical management - F/u CT abdomen & pelvis with no contrast for abd pain - F/u with urology recs - cont bladder irrigation - Cont with Pyridium and Transexamic acid - Pain control - palmidronate 60mg x 1 ordered today for bone mets - Prednisone 10mg daily (was previously on Zytiga but not tolerated) - Cytotoxin as an outpt - WBC of 22.3 dec to 20.9 this am - F/u nephro, - F/u cardio - cont current meds - ID consulted and started on Ceftazadine - GI and DVT ppx - PT and OT Case and plan was seen, reviewed and discussed in detail with Dr Carballo.
[2017-05-25 13:28] LABS: URINE BACTERIA LARGE (NEG); URINE EPITHELIAL CELLS 0 - 2 /hpf (0-5); URINE WBC TNTC /hpf (0-6)
--- NOTE | 2017-05-25 17:38 | CP.PCM.PN ---
Subjective - Date & Time of Evaluation Date of Evaluation: 05/25/17 Time of Evaluation: 09:30 - Subjective Subjective: Feels better today, less abdominal pain, no fever or chills, no nausea. Objective - Vital Signs/Intake and Output Vital Signs (last 24 hours): Temp Pulse Resp BP Pulse Ox 97.0 F L 76 19 133/61 100 05/25/17 00:00 05/25/17 00:00 05/25/17 00:00 05/25/17 00:00 05/24/17 00:00 Intake and Output: 05/24/17 05/25/17 18:59 06:59 Intake Total 270 Balance 270 - Medications Medications: Current Medications Amiodarone HCl (Cordarone) 200 mg PO DAILY [facility] Last Admin: 05/24/17 10:15 Dose: 200 mg Atorvastatin Calcium (Lipitor) 10 mg PO DIN [facility] Last Admin: 05/24/17 17:41 Dose: 10 mg Digoxin (Lanoxin) 0.125 mg PO BID [facility] Last Admin: 05/24/17 17:40 Dose: 0.125 mg Docusate Sodium (Colace) 100 mg PO BID [facility] Last Admin: 05/24/17 17:39 Dose: 100 mg Doxercalciferol (Hectorol) 0.5 mcg PO DAILY [facility] Last Admin: 05/24/17 10:15 Dose: 0.5 mcg Furosemide (Lasix) 40 mg PO DAILY [facility] Sodium Chloride (Sodium Chloride 0.9%) 1,000 mls @ 50 mls/hr IV .Q20H [facility] Stop: 05/25/17 23:59 Last Admin: 05/24/17 17:42 Dose: 50 mls/hr Levalbuterol HCl (Xopenex) 0.63 mg IH [id number] [facility] Last Admin: 05/25/17 01:42 Dose: 0.63 mg Levothyroxine Sodium (Synthroid) 100 mcg PO 0600 [facility] Last Admin: 05/25/17 05:33 Dose: 100 mcg Metoclopramide HCl (Reglan) 10 mg IV ONCE PRN PRN Reason: Nausea/Vomiting Montelukast Sodium (Singulair) 10 mg PO DAILY [facility] Last Admin: 05/24/17 10:21 Dose: 10 mg Morphine Sulfate (Morphine) 4 mg IVP Q4H PRN PRN Reason: Pain, severe (8-10) Last Admin: 05/24/17 22:03 Dose: 4 mg Pantoprazole Sodium (Protonix Ec Tab) 40 mg PO 0600 [facility] Last Admin: 05/25/17 05:33 Dose: 40 mg Phenazopyridine HCl (Pyridium) 200 mg PO Q8 [facility] Last Admin: 05/25/17 05:33 Dose: 200 mg Polyethylene Glycol (Miralax) 17 gm PO BID [facility] Last Admin: 05/24/17 17:41 Dose: 17 gm Prednisone (Prednisone Tab) 10 mg PO DAILY [facility] Last Admin: 05/24/17 10:21 Dose: 10 mg Sodium Phosphate (Fleet Enema) 135 ml RC Q8 PRN PRN Reason: Constipation Tramadol HCl (Ultram) 50 mg PO TID PRN PRN Reason: Pain - Labs Labs: 05/25/17 05:45 05/25/17 05:45 PT 11.7 Seconds (9.9-11.8) 05/23/17 10:00 INR 1.08 (0.93-1.08) 05/23/17 10:00 APTT 26.3 Seconds (23.7-30.8) 05/23/17 10:00 - Constitutional Appears: Non-toxic, No Acute Distress - Head Exam Head Exam: NORMAL INSPECTION - Neck Exam Neck Exam: absent: Meningismus - Respiratory Exam Respiratory Exam: Decreased Breath Sounds - Cardiovascular Exam Cardiovascular Exam: +S1, +S2 - GI/Abdominal Exam GI & Abdominal Exam: Soft. absent: Tenderness Assessment and Plan - Assessment and Plan (Free Text) Plan: Assessment Systemic Inflammatory Response Syndrome in a patient who had hematuria S/P cystoscopy and irrigation of the bladder, consider sepsis from UTI with Carbapenem-resistant Klebsiella S/P lower urinary tract infection in a patient with indwelling Avendano catheter growing Carbapenem-resistant Klebsiella history of right foot necrotic ulcer with surrounding cellulitis UTI with Enterococcus and Klebsiella chronic renal failure history of DVT DM metastatic Prostate CA history of Enterococcus UTI chronic atrial fibrillation S/P pacemaker and ICD placement Plan switched Merrem to Avycaz - should target 10 days of antibiotics will continue to monitor clinically
--- NOTE | 2017-05-25 21:12 | PN ---
DATE: 05/25/2017 REASON FOR CONSULTATION: Followup of coronary artery disease, preop evaluation for cystoscopy. SUBJECTIVE: The patient denies any chest pain, shortness of breath, or any palpitation. OBJECTIVE: GENERAL: Lying flat in the bed, not in apparent distress with complaint of mild abdominal pain on palpation. VITAL SIGNS: As follows: Temperature afebrile, heart rate 75, and blood pressure 131/59. HEENT: PERRLA. Extraocular muscles intact. NECK: Supple. No carotid bruits or thyromegaly. HEART: S1 and S2 regular. CHEST: Clear to auscultation. ABDOMEN: Soft. EXTREMITIES: Clubbing and cyanosis negative. LABORATORY DATA: Blood workup as follows: WBC 20.9, hemoglobin 9.0, hematocrit 28.4, and platelet count 157. Chemistry showed sodium 135, potassium 4.3, chloride 102, carbon dioxide 27, anion gap of 10, BUN 14 and creatinine 1.9. IMPRESSION: An 87-year-old male with past medical history significant for coronary artery disease, cardiomyopathy with ejection fraction of 45%, mitral and tricuspid regurgitation, status post automatic implantable cardioverter-defibrillator, history of prostate carcinoma with indwelling Avendano catheter admitted with abdominal pain and clogging of the bladder wall and continuous bladder irrigation. He is scheduled for cystoscopy on Monday. Preoperative clearance for Cardiology requested. RECOMMENDATIONS: Continue gentle diuretics. Continue CBI. Continue digoxin. Continue amiodarone for paroxysmal atrial fibrillation. Continue atorvastatin. The patient is cleared from a cardiac point of view to go for cystoscopy with a [id number] risk because of underlying comorbidity, but no absolute contraindication. No evidence of recent ischemia. No evidence of arrhythmia or congestive heart failure. We will follow with you. As mentioned above, the patient is cleared from cardiac point of view. He is a moderate to high risk. No absolute contraindication for undergoing cystoscopy. Monitor renal function closely. Thank you Dr. Polk for providing us the opportunity in taking care of the patient, Ziggy Amador. Mely Chavarria MD
[2017-05-25] MEDS: Sodium Chloride 0.9% 1,000 ML IV SCH (23:16)
[2017-05-26] MEDS: Levalbuterol 0.63 MG/3 ML Inhal Soln UD IH SCH ×4 (01:06→19:59)
[2017-05-26] MEDS: Morphine 4 mg/ml ISec IVP PRN ×2 (02:00→20:10)
[2017-05-26] MEDS: Pantoprazole 40 mg EC Tab PO SCH (05:04)
[2017-05-26] MEDS: Levothyroxine 100 MCG TAB PO SCH (05:04)
[2017-05-26 06:58] LABS: CALCIUM 8.3 mg/dL (8.4-10.5)
[2017-05-26 07:16] LABS: HEMOGLOBIN 9.4 g/dL (14.0-18.0); MEAN CELL VOLUME 87.2 fl (80.0-105.0); MEAN CORPUSCULAR HEMOGLOBIN 27.4 pg (25.0-35.0); MEAN CORPUSCULAR HGB CONC 31.4 g/dl (31.0-37.0); MEAN PLATELET VOLUME 9.5 fl (7.0-11.0); PLATELET COUNT 170 10^3/uL (120.0-450.0); RBC 3.43 10^6/uL (3.5-6.1); RED CELL DISTRIBUTION WIDTH 15.8 % (11.5-14.5); WHITE BLOOD COUNT 20.7 10^3/ul (4.5-11.0)
[2017-05-26] MEDS: Insulin Human NPH/Reg 70/30 Vial(3 ml) SC SCH ×4 (08:38→21:51)
[2017-05-26 09:06] LABS: BAND 1 % (0-2); EOSINOPHIL 1 % (0.0-3.0); LYMPHOCYTE 2 % (22.0-35.0); MONOCYTE 2 % (1.0-6.0); NEUTROPHIL 94 % (50.0-70.0)
[2017-05-26] MEDS: POLYETHYLENE GLYCOL 3350 17 GM/Dose PACKET PO SCH ×2 (10:46→17:47)
[2017-05-26] MEDS: Digoxin 125 mcg (0.125 mg) Tab PO SCH ×2 (10:47→17:43)
--- NOTE | 2017-05-26 11:57 | PN ---
LOCATION: The patient is seen in the [facility] in [place] in room 264, bed 1. SUBJECTIVE: The patient was admitted with abdominal pain, hematuria, and anemia, who was transfused 2 units of blood and the patient had a cystoscopy to clean the bladder with large hematoma that was blocking the urethra. The patient has indwelling Avendano catheter. The patient's past history is significant that he has congestive cardiomyopathy, he has a cardiac pacemaker with a defibrillator. The patient is also treated for diabetes mellitus, chronic obstructive lung disease, hypothyroidism, and the patient has a history of ALLERGIC TO CONTRAST MEDIUM AND LEVOFLOXACIN. PHYSICAL EXAMINATION: VITAL SIGNS: The patient's vital signs this morning, the pulse is 69, blood pressure 130/70, the patient's respirations are 20. The patient is on 2 liters of oxygen with the O2 sat of 97%. HEENT: The patient's head is normocephalic. NECK: Thyroid is not enlarged clinically. Lymph nodes are not palpable in the neck. His JVP is flat at this time. HEART: Normal sinus rhythm. S1 and S2 present. LUNGS: Trachea is central. Breath sounds are vesicular. Occasional rhonchi heard bilaterally. ABDOMEN: Soft. Diffuse tenderness. Distention of the abdomen. No localizing signs. CENTRAL NERVOUS SYSTEM: The patient has no focal neurological deficits at this time. The patient is pending some tests on the urine to study the renal problem. The patient has been recommended to have test by Dr. Lozano. MEDICATIONS: The patient list of medication consists of an antibiotic which is Ceftazidime and avibactam. The patient is on Colace. The patient is on amiodarone, Hectorol, Digoxin, Lasix, Lipitor, Miralax, morphine sulphate, prednisone 10 mg daily. The patient is on pantoprazole 40 mg daily. Pyridium 200 mg q. 8 hours. The patient is on Reglan 10 mg q. 6 hours p.r.n. for nausea. The patient is on Singulair 10 mg daily, Synthroid 100 mcg daily. The patient is also given tramadol p.r.n. for moderate pain. The patient is on respiratory treatment with Xopenex q. 6 hours. He also gets Pulmicort q. 12 hours. LABORATORY DATA: The patient's recent blood work; the hemoglobin is 9.4, white count is 20,000. The patient has evidence of sepsis. Possibly in the abdomen he has evidence of metastatic lymph nodes with generalized peritoneal infection. The patient's chemistry shows that the blood sugar is 103, the BUN is 36, creatinine is 1.4, it is improving. PLAN: We will continue current management. He has close followup with pipeliner, business manager, infectious disease, oncologist, hand driller. The patient is frequent visitor to the hospital with multiple medical problems. His overall prognosis is guarded. Condition is improving, and he is clinically stable today. Giselle Polk MD
--- NOTE | 2017-05-26 14:13 | PN ---
DATE: 05/26/2017 SUBJECTIVE: The patient is on CVI with return being very clear. He is scheduled for fulguration of all bleeding points on Monday. A urine culture came back showing Klebsiella that is resistant to most antibiotics. The patient was seen by ID, Dr. Ortiz, and the patient is currently on ceftazidime/avibactam as ordered by ID. The patient will be kept n.p.o. after midnight on Monday night and CVI will be continued until then. Hopefully, this will decrease recurrence of the bleeding that has been causing an ongoing problem. Leonides Masterson MD
--- NOTE | 2017-05-26 14:37 | CP.PCM.PN ---
Subjective - Date & Time of Evaluation Date of Evaluation: 05/26/17 Time of Evaluation: 07:10 - Subjective Subjective: Heme/onc note for Dr Carballo: Pt was seen and examined at bedside with Dr Carballo. No acute events overnight. Pt states that he gets bladder spasms every half our. Denies any hematuria. Denies any buckner, dizziness, f/c, n/v/d, sob, cp, abd pain. Objective - Vital Signs/Intake and Output Vital Signs (last 24 hours): Temp Pulse Resp BP Pulse Ox 99.2 F 66 20 133/67 97 05/26/17 06:00 05/26/17 06:00 05/26/17 06:00 05/26/17 10:58 05/25/17 06:00 Intake and Output: 05/26/17 05/26/17 06:59 18:59 Intake Total 560 Output Total 200 Balance 360 - Medications Medications: Current Medications Amiodarone HCl (Cordarone) 200 mg PO DAILY [facility] Last Admin: 05/26/17 10:49 Dose: 200 mg Atorvastatin Calcium (Lipitor) 10 mg PO DIN [facility] Last Admin: 05/25/17 17:06 Dose: 10 mg Digoxin (Lanoxin) 0.125 mg PO BID [facility] Last Admin: 05/26/17 10:47 Dose: 0.125 mg Docusate Sodium (Colace) 100 mg PO BID [facility] Last Admin: 05/26/17 10:49 Dose: 100 mg Doxercalciferol (Hectorol) 0.5 mcg PO DAILY [facility] Last Admin: 05/26/17 10:47 Dose: 0.5 mcg Furosemide (Lasix) 40 mg PO DAILY [facility] Last Admin: 05/26/17 10:58 Dose: 40 mg Ceftazidime/Avibactam 0.94 gm/ (Sodium Chloride) 100 mls @ 50 mls/hr IVPB Q12H [facility] Last Admin: 05/26/17 10:49 Dose: 50 mls/hr Levalbuterol HCl (Xopenex) 0.63 mg IH [id number] [facility] Last Admin: 05/26/17 13:51 Dose: 0.63 mg Levothyroxine Sodium (Synthroid) 100 mcg PO 0600 [facility] Last Admin: 05/26/17 05:04 Dose: 100 mcg Metoclopramide HCl (Reglan) 10 mg IV ONCE PRN PRN Reason: Nausea/Vomiting Montelukast Sodium (Singulair) 10 mg PO DAILY [facility] Last Admin: 05/26/17 10:47 Dose: 10 mg Morphine Sulfate (Morphine) 4 mg IVP Q4H PRN PRN Reason: Pain, severe (8-10) Last Admin: 05/26/17 02:00 Dose: 4 mg Pantoprazole Sodium (Protonix Ec Tab) 40 mg PO 0600 [facility] Last Admin: 05/26/17 05:04 Dose: 40 mg Phenazopyridine HCl (Pyridium) 200 mg PO Q8 [facility] Last Admin: 05/26/17 06:19 Dose: 200 mg Polyethylene Glycol (Miralax) 17 gm PO BID [facility] Last Admin: 05/26/17 10:46 Dose: 17 gm Prednisone (Prednisone Tab) 10 mg PO DAILY [facility] Last Admin: 05/26/17 10:47 Dose: 10 mg Sodium Phosphate (Fleet Enema) 135 ml RC Q8 PRN PRN Reason: Constipation Tramadol HCl (Ultram) 50 mg PO TID PRN PRN Reason: Pain - Labs Labs: 05/26/17 06:00 05/26/17 06:00 PT 11.7 Seconds (9.9-11.8) 05/23/17 10:00 INR 1.08 (0.93-1.08) 05/23/17 10:00 APTT 26.3 Seconds (23.7-30.8) 05/23/17 10:00 - Constitutional Appears: No Acute Distress - Eye Exam Eye Exam: EOMI, Normal appearance, PERRL - ENT Exam ENT Exam: Mucous Membranes Moist - Respiratory Exam Respiratory Exam: Clear to Ausculation Bilateral. absent: Rhonchi, Wheezes - Cardiovascular Exam Cardiovascular Exam: RRR, +S1, +S2 - GI/Abdominal Exam GI & Abdominal Exam: Soft. absent: Distended, Tenderness - Extremities Exam Extremities Exam: absent: Calf Tenderness, Pedal Edema - Neurological Exam Neurological Exam: Alert, Awake, Oriented x3 - Psychiatric Exam Psychiatric exam: Normal Affect, Normal Mood - Skin Skin Exam: Dry, Intact, Normal Color, Warm Assessment and Plan - Assessment and Plan (Free Text) Assessment: 87 M with history of stage 4 castrate resistant prostate cancer, chronic heart failure, COPD, DMII, coronary artery disease, hypothyroidism, and arthritis who was admitted for hematuria and blood clots. Pt is s/p cystoscopy with evacuation of clots, cath replacement, with continuous bladder irrigation. Plan for bladder fulguration on Monday. Plan: - As per Urology - Plan for bladder fulguration / cauterization on Monday; Cont CBI - Medical management - F/u CT abdomen & pelvis with no contrast for abd pain - acute cystitis correlate with urinalysis, scheleortic mets, retroperitoneal and pelvic lymphadenopathy, small bowel mesenteric lymphadenopathy. - Cont with Pyridium; Transexamic acid on hold - Pain control - palmidronate 60mg x 1 administered - Prednisone 10mg daily (was previously on Zytiga but not tolerated) - Cytotoxin as an outpt - WBC of 20.7 - F/u nephro, - F/u cardio - cont current meds - ID consulted and started on Ceftazadine - GI and DVT ppx - PT and OT Case and plan was seen, reviewed and discussed in detail with Dr Carballo.
--- NOTE | 2017-05-26 20:09 | PN ---
DATE: 05/26/2017 SUBJECTIVE: The patient is seen lying in bed. He appears comfortable. He does not appeared to be in any kind of distress. PHYSICAL EXAMINATION: VITAL SIGNS: Blood pressure 133/67, heart rate 66, respiratory rate 18, temperature 99.2, T-max 99.2. HEENT: Normocephalic, atraumatic. NECK: Supple, no JVD. LUNGS: Bilateral rhonchi, no rales, equal expansion. CARDIAC: S1 and S2, regular rate and rhythm. No murmur, no rub. ABDOMEN: Distended, soft, tenderness in the lower abdomen, bowel sounds present. EXTREMITIES: 1+ pitting edema of the lower extremities. INTAKE AN OUTPUT: 516/200. LABORATORY DATA: WBC 20, hemoglobin 9.4, hematocrit 30, platelets 170. Sodium 136, potassium 4.5, chloride 101, CO2 27, BUN 36, creatinine 1.4, glucose 103, calcium 8.3. Urine culture, Klebsiella. Blood pressure, no growth. CURRENT MEDICATIONS: List reviewed, the patient is on avibactam b.i.d. The patient received pamidronate 60 mg x1 dose. ASSESSMENT/PLAN 1. Resolving acute kidney injury, underlying chronic kidney disease stage III/IV. 2. Prostate cancer with infiltration of the bladder wall, hematuria. 3. Recurrent urinary tract infection. 4. Recurrent hematuria. 5. Clot retention. 6. Leukocytosis with bandemia, Klebsiella urinary tract infection, resistant to most antibiotics. PLAN 1. Continue bladder irrigation. 2. Antibiotics as per ID recommendations. 3. Dose antibiotics for creatinine clearance 30-50 ml/minute. 4. Avoid nephrotoxins. 5. Cystoscopy on Monday? Marianne Lozano MD
--- NOTE | 2017-05-26 21:26 | CP.PCM.PN ---
Subjective - Date & Time of Evaluation Date of Evaluation: 05/26/17 Time of Evaluation: 10:00 - Subjective Subjective: Still with abdominal pain, no fevers. Objective - Vital Signs/Intake and Output Vital Signs (last 24 hours): Temp Pulse Resp BP Pulse Ox 99.2 F 66 20 133/67 97 05/26/17 06:00 05/26/17 06:00 05/26/17 06:00 05/26/17 06:00 05/25/17 06:00 - Medications Medications: Current Medications Amiodarone HCl (Cordarone) 200 mg PO DAILY [facility] Last Admin: 05/25/17 09:45 Dose: 200 mg Atorvastatin Calcium (Lipitor) 10 mg PO DIN [facility] Last Admin: 05/25/17 17:06 Dose: 10 mg Digoxin (Lanoxin) 0.125 mg PO BID [facility] Last Admin: 05/25/17 17:06 Dose: 0.125 mg Docusate Sodium (Colace) 100 mg PO BID [facility] Last Admin: 05/25/17 17:06 Dose: 100 mg Doxercalciferol (Hectorol) 0.5 mcg PO DAILY [facility] Last Admin: 05/25/17 09:45 Dose: 0.5 mcg Furosemide (Lasix) 40 mg PO DAILY [facility] Ceftazidime/Avibactam 0.94 gm/ (Sodium Chloride) 100 mls @ 50 mls/hr IVPB Q12H [facility] Last Admin: 05/25/17 21:54 Dose: 50 mls/hr Levalbuterol HCl (Xopenex) 0.63 mg IH [id number] [facility] Last Admin: 05/26/17 01:06 Dose: 0.63 mg Levothyroxine Sodium (Synthroid) 100 mcg PO 0600 [facility] Last Admin: 05/26/17 05:04 Dose: 100 mcg Metoclopramide HCl (Reglan) 10 mg IV ONCE PRN PRN Reason: Nausea/Vomiting Montelukast Sodium (Singulair) 10 mg PO DAILY [facility] Last Admin: 05/25/17 09:45 Dose: 10 mg Morphine Sulfate (Morphine) 4 mg IVP Q4H PRN PRN Reason: Pain, severe (8-10) Last Admin: 05/26/17 02:00 Dose: 4 mg Pantoprazole Sodium (Protonix Ec Tab) 40 mg PO 0600 [facility] Last Admin: 05/26/17 05:04 Dose: 40 mg Phenazopyridine HCl (Pyridium) 200 mg PO Q8 [facility] Last Admin: 05/26/17 06:19 Dose: 200 mg Polyethylene Glycol (Miralax) 17 gm PO BID [facility] Last Admin: 05/25/17 17:06 Dose: 17 gm Prednisone (Prednisone Tab) 10 mg PO DAILY [facility] Last Admin: 05/25/17 09:45 Dose: 10 mg Sodium Phosphate (Fleet Enema) 135 ml RC Q8 PRN PRN Reason: Constipation Tramadol HCl (Ultram) 50 mg PO TID PRN PRN Reason: Pain - Labs Labs: 05/25/17 05:45 05/25/17 05:45 PT 11.7 Seconds (9.9-11.8) 05/23/17 10:00 INR 1.08 (0.93-1.08) 05/23/17 10:00 APTT 26.3 Seconds (23.7-30.8) 05/23/17 10:00 - Constitutional Appears: Non-toxic, No Acute Distress - Head Exam Head Exam: NORMAL INSPECTION - ENT Exam ENT Exam: Mucous Membranes Moist - Neck Exam Neck Exam: absent: Meningismus - Respiratory Exam Respiratory Exam: Decreased Breath Sounds - Cardiovascular Exam Cardiovascular Exam: +S1, +S2 - GI/Abdominal Exam GI & Abdominal Exam: Soft. absent: Tenderness Assessment and Plan - Assessment and Plan (Free Text) Plan: Assessment Systemic Inflammatory Response Syndrome in a patient who had hematuria S/P cystoscopy and irrigation of the bladder, with sepsis from UTI with Carbapenem- resistant Klebsiella S/P lower urinary tract infection in a patient with indwelling Avendano catheter growing Carbapenem-resistant Klebsiella history of right foot necrotic ulcer with surrounding cellulitis UTI with Enterococcus and Klebsiella chronic renal failure history of DVT DM metastatic Prostate CA history of Enterococcus UTI chronic atrial fibrillation S/P pacemaker and ICD placement Plan continue Avycaz day 2 - should target 10 days of antibiotics will continue to monitor clinically
--- NOTE | 2017-05-26 21:30 | PN ---
REASON FOR CONSULTATION: Coronary artery disease, preop evaluation, risk stratification for cystoscopy. SUBJECTIVE: The patient denies any chest pain, shortness of breath, or any palpitation. OBJECTIVE: Lying flat in the bed, not in apparent distress. PHYSICAL EXAMINATION: VITAL SIGNS: Temperature afebrile, heart rate 66, blood pressure 133/67. HEENT: PERRLA. Extraocular muscles intact. NECK: Supple. No carotid bruits or thyromegaly. CHEST: Clear to auscultation. HEART: S1 and S2 regular. ABDOMEN: Soft. EXTREMITIES: Clubbing and cyanosis negative. LABORATORY DATA: Blood workup as follows: WBC 20.7, hemoglobin 9.5, hematocrit 29.9, platelet count 170. Chemistry showed sodium 130, potassium 4.5, chloride 101, carbon dioxide 27, anion gap of 13, BUN 36, creatinine 1.4. IMPRESSION: An 87-year-old male with past medical history significant for coronary artery disease, pre and post-coronary artery bypass graft, status post mitral valve repair, paroxysmal atrial fibrillation, in normal sinus, prostate cancer, history of indwelling Avendano catheter, admitted with abdominal pain and clogging of the 3-Way catheter. PLAN: Plan is to take him to the OR for cystoscopy. Pre-op evaluation was requested. Though the patient has multiple medical problems and high-risk for any kind of intervention procedure, but the risk-benefit ratio is in the favor of having the surgery done. Otherwise, the patient can from the urosepsis and no evidence of acute ischemia, no evidence of acute arrhythmia or congestive heart failure, so the patient is okay to go from cardiology on point of view with high risk but no ____ contraindication. We will follow postop closely. Interim continue broad-spectrum antibiotics, continue digoxin, continue Lasix, continuing atorvastatin. We will follow with you. Thank you Dr. Polk for providing us the opportunity in taking care of the patient. Mely Chavarria MD
--- NOTE | 2017-05-27 05:40 | PN ---
DATE: 05/25/2017 SUBJECTIVE: The patient is seen in his room at [facility]. He is in no acute distress. He is resting comfortably. PHYSICAL EXAMINATION: VITAL SIGNS: He has been afebrile. Temperature of 98.2, pulse 75, blood pressure 131/59, respirations 20. ABDOMEN: Soft, nontender. No rebound or guarding. GENITOURINARY: No suprapubic tenderness. Phallus is normal. There is a 3-way Avendano catheter in place, which is draining clear urine on slow CBI. There is a slight viridian tinge to the urine IMPRESSION AND PLAN: The patient is doing well after evacuation of clots. Plan will be to take the patient back to the operating room electively next week. Now that his acute problem has resolved, I am going to try to cauterize the bleeding vessels, which were seen previously and hopefully, we will be able to discontinue the bladder irrigation, and get the patient back to a rehab facility or home once the gross hematuria has resolved. Eddie Louise MD
[2017-05-27] MEDS: Levothyroxine 100 MCG TAB PO SCH (06:09)
[2017-05-27] MEDS: Pantoprazole 40 mg EC Tab PO SCH (06:09)
[2017-05-27 06:33] LABS: BASO # 0.01 K/mm3 (0.0-2.0); BASO % 0.1 % (0.0-3.0); EOS # 0.1 (0.0-0.7); EOS % 0.5 % (1.5-5.0); GRAN % 87.6 % (50.0-68.0); HEMOGLOBIN 9.1 g/dL (14.0-18.0); LYMPH # 0.7 (1.2-3.4); LYMPH % 4.8 % (22.0-35.0); MEAN CELL VOLUME 86.7 fl (80.0-105.0); MEAN CORPUSCULAR HEMOGLOBIN 27.6 pg (25.0-35.0); MEAN CORPUSCULAR HGB CONC 31.8 g/dl (31.0-37.0); MEAN PLATELET VOLUME 9.1 fl (7.0-11.0); PLATELET COUNT 162 10^3/uL (120.0-450.0); RED CELL DISTRIBUTION WIDTH 15.8 % (11.5-14.5)
[2017-05-27 06:51] LABS: BLOOD UREA NITROGEN 36 mg/dL (7-21); GFR AFRICAN-AMERICAN > 60; GFR NON-AFRICAN AMERICAN > 60
[2017-05-27] MEDS: Levalbuterol 0.63 MG/3 ML Inhal Soln UD IH SCH ×3 (07:33→19:23)
[2017-05-27] MEDS: Insulin Human NPH/Reg 70/30 Vial(3 ml) SC SCH ×4 (08:17→22:29)
--- NOTE | 2017-05-27 08:21 | CP.PCM.PN ---
Subjective - Date & Time of Evaluation Date of Evaluation: 05/27/17 Time of Evaluation: 08:00 - Subjective Subjective: Patient is seen this morning. He is complaining of dry, cracked skin on both of his feet. He also complains of abdominal pain. Objective - Vital Signs/Intake and Output Vital Signs (last 24 hours): Temp Pulse Resp BP Pulse Ox 99.2 F 66 20 133/67 97 05/26/17 06:00 05/26/17 06:00 05/26/17 06:00 05/26/17 10:58 05/25/17 06:00 Intake and Output: 05/27/17 05/27/17 06:59 18:59 Intake Total 570 Output Total 2200 Balance -1630 - Medications Medications: Current Medications Amiodarone HCl (Cordarone) [address] [facility] Last Admin: 05/26/17 10:49 Dose: 200 mg Atorvastatin Calcium (Lipitor) [address] [facility] Last Admin: 05/26/17 17:44 Dose: 10 mg Digoxin (Lanoxin) 0.[address] [facility] Last Admin: 05/26/17 17:43 Dose: 0.125 mg Docusate Sodium (Colace) [address] [facility] Last Admin: 05/26/17 17:47 Dose: 100 mg Doxercalciferol (Hectorol) 0.[address] [facility] Last Admin: 05/26/17 10:47 Dose: 0.5 mcg Furosemide (Lasix) [address] [facility] Last Admin: 05/26/17 10:58 Dose: 40 mg Ceftazidime/Avibactam 0.94 gm/ (Sodium Chloride) 100 mls @ 50 mls/hr IVPB Q12H [facility] Last Admin: 05/26/17 21:47 Dose: 50 mls/hr Lactic Acid (Lac-Hydrin 12% Cream (140 G)) [address] [facility] Levalbuterol HCl (Xopenex) 0.[id number] [facility] Last Admin: 05/27/17 07:33 Dose: 0.63 mg Levothyroxine Sodium (Synthroid) [address] [facility] Last Admin: 05/27/17 06:09 Dose: 100 mcg Metoclopramide HCl (Reglan) 10 mg IV ONCE PRN PRN Reason: Nausea/Vomiting Montelukast Sodium (Singulair) [address] [facility] Last Admin: 05/26/17 10:47 Dose: 10 mg Morphine Sulfate (Morphine) 4 mg IVP Q4H PRN PRN Reason: Pain, severe (8-10) Last Admin: 05/26/17 20:10 Dose: 4 mg Pantoprazole Sodium (Protonix Ec Tab) [address] [facility] Last Admin: 05/27/17 06:09 Dose: 40 mg Phenazopyridine HCl (Pyridium) [address] [facility] Last Admin: 05/27/17 06:09 Dose: 200 mg Polyethylene Glycol (Miralax) [address] [facility] Last Admin: 05/26/17 17:47 Dose: 17 gm Prednisone (Prednisone Tab) [address] [facility] Last Admin: 05/26/17 10:47 Dose: 10 mg Sodium Phosphate (Fleet Enema) 135 ml RC Q8 PRN PRN Reason: Constipation Tramadol HCl (Ultram) 50 mg PO TID PRN PRN Reason: Pain - Labs Labs: 05/27/17 06:15 05/27/17 06:15 PT 11.7 Seconds (9.9-11.8) 05/23/17 10:00 INR 1.08 (0.93-1.08) 05/23/17 10:00 APTT 26.3 Seconds (23.7-30.8) 05/23/17 10:00 - Constitutional Appears: No Acute Distress - Head Exam Head Exam: ATRAUMATIC, NORMOCEPHALIC - Respiratory Exam Respiratory Exam: Clear to Ausculation Bilateral, NORMAL BREATHING PATTERN - Cardiovascular Exam Cardiovascular Exam: +S1, +S2 - GI/Abdominal Exam GI & Abdominal Exam: Soft, Tenderness, Normal Bowel Sounds - Neurological Exam Neurological Exam: Alert, Awake, CN II-XII Intact, Oriented x3 Assessment and Plan - Assessment and Plan (Free Text) Assessment: Recurrent hematuria Metastatic prostate Cancer CAD Chronic CHF COPD Hypothyroidism DMII Plan: Patient's hemoglobin is 9.1 after receiving 2 units of PRBCs. He has recurrent hematuria and is currently on continuous bladder irrigation. Urine is orange secondary to pyridium. Patient complains of abdominal pain. continue morphine as needed for pain. Patient is status post cystoscopy with manual extraction and evacuation of blood clots. Sites of oozing blood were seen on cystoscopy and patient is to have cauterization done on monday. Urine culture growing carbapenem resistant Klebsiella. continue IV antibiotics as per infectious disease. Acute kidney injury resolved. continue to monitor H&H
[2017-05-27] MEDS: POLYETHYLENE GLYCOL 3350 17 GM/Dose PACKET PO SCH ×2 (09:20→17:21)
[2017-05-27] MEDS: Ammonium Lactate 12% Cream (140 g) TOP SCH ×2 (09:21→17:21)
[2017-05-27] MEDS: Morphine 4 mg/ml ISec IVP PRN (09:24)
[2017-05-27] MEDS: Digoxin 125 mcg (0.125 mg) Tab PO SCH ×3 (09:24→17:25)
--- NOTE | 2017-05-27 21:14 | CP.PCM.PN ---
Subjective - Date & Time of Evaluation Date of Evaluation: 05/27/17 Time of Evaluation: 12:30 - Subjective Subjective: Comfortable, not in distress, no fevers, still with abdominal pain but a little better. Objective - Vital Signs/Intake and Output Vital Signs (last 24 hours): Temp Pulse Resp BP Pulse Ox 98 F 65 18 158/66 H 98 05/27/17 08:28 05/27/17 09:24 05/27/17 08:28 05/27/17 09:24 05/27/17 08:28 Intake and Output: 05/27/17 05/27/17 06:59 18:59 Intake Total 570 Output Total 2200 Balance -1630 - Medications Medications: Current Medications Amiodarone HCl (Cordarone) 200 mg PO DAILY [facility] Last Admin: 05/27/17 09:24 Dose: 200 mg Atorvastatin Calcium (Lipitor) 10 mg PO DIN [facility] Last Admin: 05/26/17 17:44 Dose: 10 mg Digoxin (Lanoxin) 0.125 mg PO BID [facility] Last Admin: 05/27/17 09:24 Dose: 0.125 mg Docusate Sodium (Colace) 100 mg PO BID [facility] Last Admin: 05/27/17 09:20 Dose: 100 mg Doxercalciferol (Hectorol) 0.5 mcg PO DAILY [facility] Last Admin: 05/27/17 09:20 Dose: 0.5 mcg Furosemide (Lasix) 40 mg PO DAILY [facility] Last Admin: 05/27/17 09:24 Dose: 40 mg Ceftazidime/Avibactam 0.94 gm/ (Sodium Chloride) 100 mls @ 50 mls/hr IVPB Q12H [facility] Last Admin: 05/26/17 21:47 Dose: 50 mls/hr Lactic Acid (Lac-Hydrin 12% Cream (140 G)) 0 ea TOP BID [facility] Last Admin: 05/27/17 09:21 Dose: 140 g Levalbuterol HCl (Xopenex) 0.63 mg IH [id number] [facility] Last Admin: 05/27/17 07:33 Dose: 0.63 mg Levothyroxine Sodium (Synthroid) 100 mcg PO 0600 [facility] Last Admin: 05/27/17 06:09 Dose: 100 mcg Metoclopramide HCl (Reglan) 10 mg IV ONCE PRN PRN Reason: Nausea/Vomiting Montelukast Sodium (Singulair) 10 mg PO DAILY [facility] Last Admin: 05/27/17 09:20 Dose: 10 mg Morphine Sulfate (Morphine) 4 mg IVP Q4H PRN PRN Reason: Pain, severe (8-10) Last Admin: 05/27/17 09:24 Dose: 4 mg Pantoprazole Sodium (Protonix Ec Tab) 40 mg PO 0600 [facility] Last Admin: 05/27/17 06:09 Dose: 40 mg Phenazopyridine HCl (Pyridium) 200 mg PO Q8 [facility] Last Admin: 05/27/17 06:09 Dose: 200 mg Polyethylene Glycol (Miralax) 17 gm PO BID [facility] Last Admin: 05/27/17 09:20 Dose: 17 gm Prednisone (Prednisone Tab) 10 mg PO DAILY [facility] Last Admin: 05/27/17 09:20 Dose: 10 mg Sodium Phosphate (Fleet Enema) 135 ml RC Q8 PRN PRN Reason: Constipation Tramadol HCl (Ultram) 50 mg PO TID PRN PRN Reason: Pain - Labs Labs: 05/27/17 06:15 05/27/17 06:15 PT 11.7 Seconds (9.9-11.8) 05/23/17 10:00 INR 1.08 (0.93-1.08) 05/23/17 10:00 APTT 26.3 Seconds (23.7-30.8) 05/23/17 10:00 - Constitutional Appears: Non-toxic, No Acute Distress - Head Exam Head Exam: NORMAL INSPECTION - ENT Exam ENT Exam: Mucous Membranes Moist - Neck Exam Neck Exam: absent: Meningismus - Respiratory Exam Respiratory Exam: Decreased Breath Sounds - Cardiovascular Exam Cardiovascular Exam: +S1, +S2 - GI/Abdominal Exam GI & Abdominal Exam: Soft. absent: Tenderness Assessment and Plan - Assessment and Plan (Free Text) Plan: Assessment Systemic Inflammatory Response Syndrome in a patient who had hematuria S/P cystoscopy and irrigation of the bladder, with sepsis from UTI with Carbapenem- resistant Klebsiella S/P lower urinary tract infection in a patient with indwelling Avendano catheter growing Carbapenem-resistant Klebsiella history of right foot necrotic ulcer with surrounding cellulitis UTI with Enterococcus and Klebsiella chronic renal failure history of DVT DM metastatic Prostate CA history of Enterococcus UTI chronic atrial fibrillation S/P pacemaker and ICD placement Plan continue Avycaz day 3 - should target 10 days of antibiotics will continue to monitor clinically
[2017-05-28] MEDS: Levalbuterol 0.63 MG/3 ML Inhal Soln UD IH SCH ×4 (01:02→19:38)
[2017-05-28] MEDS: Levothyroxine 100 MCG TAB PO SCH (05:21)
[2017-05-28] MEDS: Pantoprazole 40 mg EC Tab PO SCH (06:31)
[2017-05-28] MEDS: Insulin Human NPH/Reg 70/30 Vial(3 ml) SC SCH ×4 (08:12→22:14)
[2017-05-28] MEDS: POLYETHYLENE GLYCOL 3350 17 GM/Dose PACKET PO SCH ×2 (10:07→17:37)
[2017-05-28] MEDS: Ammonium Lactate 12% Cream (140 g) TOP SCH ×2 (10:09→17:34)
[2017-05-28] MEDS: Morphine 4 mg/ml ISec IVP PRN (10:48)
--- NOTE | 2017-05-28 11:23 | PN ---
DATE: SUBJECTIVE: The patient is seen this morning. The patient is in room 578, bed 1 at [facility] in [place]. The patient was admitted with infection ,the patient was admitted with hematuria. He has past history of congestive heart failure, chronic obstructive lung disease, and diabetes mellitus. The patient has history of having cardiac pacemaker for congestive cardiomyopathy and post-synchronization of ventricular function. The patient is seen this morning. He is awake and he is able to talk. The patient has been scheduled to have a procedure tomorrow by Dr. Louise. PHYSICAL EXAMINATION: VITAL SIGNS: This morning the pulse is 63 per minute, blood pressure 140/73, respirations 20, and O2 saturation 98% on room air. HEART: Normal sinus rhythm. S1 and S2 present. Cardiac pacemaker is present. LUNGS: Bilateral basilar crepitation and rhonchi. ABDOMEN: Soft. Diffuse tenderness and this is in consideration. The patient has acute inflammation in the abdominal cavity associated with metastatic lymph nodes enlarged secondary to prostate carcinoma. LABORATORY DATA: The patient's blood sugars is monitored closely. MEDICATIONS: The patient's medication consistent to ceftazidime and avibactam that is given every 12 hours. The patient is getting Colace and MiraLax. The patient gets Hectorol, lactic acid, digoxin 0.125 mg, we will have to change it once a day, it was made b.i.d., but we will check his digoxin level tomorrow. Currently, we will replace it as once a today. The patient is on Lipitor. The patient takes prednisone, pantoprazole, Pyridium, Reglan, montelukast, Synthroid, and tramadol for pain. The patient was on morphine and we will reorder the morphine because the patient still complains of pain. His overall condition is improving. Prognosis is guarded. Just continue current management and the CBC shows hemoglobin of 9.1 and white count of 14,000. This could be monitored very closely. Giselle Polk MD
[2017-05-28] MEDS: Digoxin 125 mcg (0.125 mg) Tab PO SCH (14:04)
--- NOTE | 2017-05-28 22:11 | PN ---
DATE: 05/28/2017 SUBJECTIVE: The patient is seen sitting in chair. He is awake, he is alert, he is comfortable. He does not appear to be in any kind of distress. He reports decreased lower abdominal pain. He complains of some cough and shortness of breath. PHYSICAL EXAMINATION GENERAL: Elderly male sitting in chair. VITAL SIGNS: Blood pressure 150/64, heart rate 63, respiratory rate 20, temperature 98.2. HEENT: Normocephalic and atraumatic. NECK: Supple. No JVD. LUNGS: Bilateral rhonchi. Bilateral equal air entry. No rales. CARDIAC: S1 and S2 regular rate and rhythm. No murmur. No rubs. ABDOMEN: Obese, distended, soft, nontender, bowel sounds present. EXTREMITIES: 2+ pitting edema of the lower extremities. INTAKE AND OUTPUT: 2180/6300. LABORATORY DATA: WBC 14, hemoglobin 9, hematocrit 29, platelets *------*. Sodium 135, potassium 4.6, chloride 101, CO2 of 29, BUN 36, creatinine 1.1, glucose 71, calcium 8.0. CURRENT MEDICATIONS: Avibactam, Colace, amiodarone, Hectorol, Digoxin, and Lasix 40 mg p.o. daily. ASSESSMENT AND PLAN: 1. Resolved acute kidney injury superimposed on chronic kidney disease stage III. 2. 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 3. Recurrent hematuria. 4. Clot retention. 5. Prostate cancer with infiltration of bladder wall. 6. Congestive heart failure. PLAN: 1. Lasix 40 mg IV push x1 dose. 2. Antibiotic as per ID recommendations. 3. Continue CBI. 4. Plan for cystoscopy and fulguration of bleeding points tomorrow. Marianne Lozano MD
[2017-05-29] MEDS: Levalbuterol 0.63 MG/3 ML Inhal Soln UD IH SCH ×4 (02:10→20:20)
[2017-05-29] MEDS: Pantoprazole 40 mg EC Tab PO SCH (05:32)
[2017-05-29] MEDS: Levothyroxine 100 MCG TAB PO SCH (05:32)
[2017-05-29 05:52] LABS: BASO # 0.01 K/mm3 (0.0-2.0); BASO % 0.1 % (0.0-3.0); EOS # 0.1 (0.0-0.7); EOS % 0.7 % (1.5-5.0); GRAN # 7.72 (1.4-6.5); GRAN % 76.9 % (50.0-68.0); HEMOGLOBIN 9.3 g/dL (14.0-18.0); LYMPH # 0.9 (1.2-3.4); LYMPH % 9.1 % (22.0-35.0); MEAN CORPUSCULAR HGB CONC 31.8 g/dl (31.0-37.0); MEAN PLATELET VOLUME 9.5 fl (7.0-11.0); MONO # 1.3 (0.1-0.6); MONO % 13.2 % (1.0-6.0); PLATELET COUNT 167 10^3/uL (120.0-450.0); RBC 3.32 10^6/uL (3.5-6.1); RED CELL DISTRIBUTION WIDTH 15.8 % (11.5-14.5)
[2017-05-29 05:56] LABS: BLOOD UREA NITROGEN 33 mg/dL (7-21); CALCIUM 7.6 mg/dL (8.4-10.5)
[2017-05-29 06:08] LABS: GFR AFRICAN-AMERICAN > 60; GFR NON-AFRICAN AMERICAN > 60
[2017-05-29] MEDS: Insulin Human NPH/Reg 70/30 Vial(3 ml) SC SCH ×4 (08:41→21:38)
--- NOTE | 2017-05-29 08:53 | PN ---
DATE: 05/28/2017 LOCATION: The patient is room 578, bed 1. SUBJECTIVE: The patient is seen this morning. He is in room 578. The patient was admitted with progressive intractable hematuria, background history of having locally recurrent hormone refractory prostate cancer which is eroding into the bladder. The patient has had maximal RT. He is not a candidate for any systemic chemotherapy, because of multiple comorbid issues including congestive cardiomyopathy, coronary artery disease and being on multiple drugs including amiodarone which would interfere with the tolerability of the medicine as well as increasing side effects from the medication itself. The patient was tried on Xtandi could not tolerated it. He was on drug called Zytiga and prednisone which again he has cut back, and over the last few months, the patient has had recurrent admissions to the hospital with recurrent hematuria. Recently after this admission, he was scoped after he had several blood clots in the bag and was having lot of spasms; when he looked inside the bladder, there were several focal areas of bleeding mostly from recurrent tumor and there was lot of clot evacuated, so that the patient now has a Avendano catheter with near clear urine. The patient has been scheduled for another look with cystoscopy in the a.m. with a plan here according to my discussion with Dr. Masetrson to see if they can use laser to coagulate the bleeding sites and then subsequent to that we can assess the patient for starting him on treatment probably with single agent Cytoxan once a day or giving the patient Lupron and trying to give the Zytiga and the prednisone again on a daily basis. The patient is scheduled for the procedure in the a.m. Subjectively, the patient is sitting out of bed in chair, he still has significant pain in the lower back for which he gets tramadol. He is eating, his eating is fair, he is forcing himself to eat. Denies any significant complaints or abdominal pain that he had after the surgical procedure. When we did a CAT scan, it showed lot of inflammation in the bladder which may be subsiding on antibiotics. PHYSICAL EXAMINATION GENERAL: The patient is awake, alert and oriented. VITAL SIGNS: Pulse of 63 per minute, blood pressure is 140/73, respirations 20, and O2 sat is 98% on room air. HEENT: Head is normocephalic, atraumatic. Conjunctivae is pale. Sclerae are anicteric. Pupils are equally reactive to light and accommodation. Examination of the oropharynx reveals no oropharyngeal lesions. Tongue is moist. No lesions are noted. NECK: Supple. There is no adenopathy. No jugular venous distention noted. LUNGS: Clear to percussion and auscultation with basilar crepitations and rhonchi. ABDOMEN: Soft with diffuse tenderness in the belly post biopsy. The patient has had a CAT scan done recently which shows no perforation or any other inflammatory process besides the inflammation of the bladder for which he is on antibiotics. LABORATORY DATA: Blood sugars are being monitored. Rest of the labs appeared to be unremarkable and unchanged. MEDICATIONS: He is on antibiotics currently. He is getting Colace and MiraLax. He is on ceftazidime, avibactam q. 12 hours, Colace 100 mg b.i.d., amiodarone 200 mg daily. The patient is getting Fleet Enema q. 8 hours for constipation; Hectorol 0.5, 15 mcg daily and Lac-Hydrin 12% cream 140 g topically b.i.d. The patient is on digoxin, Lanoxin 0.125 daily and Lasix 40 mg p.o. daily. ASSESSMENT NOTES AND PLAN: The patient has progressive stage IV metastatic hormone refractory prostate cancer along with significant congestive cardiomyopathy and coronary artery disease status post pacemaker placement, who is now going for repeat cystoscopy and probably laser fulguration of the bleeding site. We will assess the patient for systemic therapy for either oral Cytoxan which is an old fashion treatment for metastatic prostate versus Zytiga and prednisone and adding a drug such as Lupron. Hopefully, the bleeding would stop, then he could have better quality of life. Rogelio Carballo MD
--- NOTE | 2017-05-29 09:11 | PN ---
SUBJECTIVE: The patient is in room 578, bed 1, [facility] in [place]. He is seen this morning. He is awake and alert. The Avendano catheter is clear. He has irrigation that is continuous process. The patient's current complaint is that he has abdominal discomfort and irritation in the scrotal area with pain. PHYSICAL EXAMINATION VITAL SIGNS: Pulse is 64, blood pressure 160/73, respirations are 20, temperature is 98.7 and O2 sat is 100% on room air. LUNGS: Clinically clear. HEART: Normal sinus rhythm. Sinus bradycardia. ABDOMEN: Soft. Tenderness diffusely present. No localizing signs. CENTRAL NERVOUS SYSTEM: The patient has no focal neurological deficit. MEDICATIONS: The patient's medications remain the same. There is no change from yesterday. The patient's digoxin is reduced to 125 mcg. We will do repeat digoxin level. LABORATORY DATA: The patient's lab work shows that hemoglobin 9.3 today and white count is 10,000, which is better than yesterday, it was 14,000. His chemistry; the patient's BUN is 33, creatinine 1.0, these are much better numbers than what he had a few days ago. His blood sugar is 104. We have not got the results of the digoxin level. DIAGNOSES: The patient has carcinoma of the prostate with metastatic disease to the lymph nodes in the abdomen and pelvis. The patient has infection in the bladder and hematuria. The patient's other diagnoses are congestive heart failure; congestive cardiomyopathy, the patient has a cardiac pacemaker; chronic obstructive lung disease; hypothyroidism and diabetes mellitus. His condition seemed to be improving clinically. He is awaiting to have a procedure done by the urologist today. Please follow up on the treatment plan after the urological evaluation and diagnosis. Giselle Polk MD
[2017-05-29] MEDS: POLYETHYLENE GLYCOL 3350 17 GM/Dose PACKET PO SCH ×2 (10:56→18:51)
[2017-05-29] MEDS: Morphine 4 mg/ml ISec IVP PRN (11:01)
--- NOTE | 2017-05-29 13:15 | CP.PCM.PN ---
Subjective - Date & Time of Evaluation Date of Evaluation: 05/29/17 Time of Evaluation: 09:30 - Subjective Subjective: Heme/onc note for Dr Carballo: Pt was seen and examined at bedside. No acute events overnight. NPO for cystoscopy and cauterization today. Pt states bladder spasms are better but c/o of some R sided flank pain. Denies any hematuria. Denies any buckner, dizziness, f/c , n/v/d, sob, cp, abd pain. Objective - Vital Signs/Intake and Output Vital Signs (last 24 hours): Temp Pulse Resp BP Pulse Ox 98.5 F 62 18 149/55 L 94 L 05/29/17 12:45 05/29/17 12:45 05/29/17 12:45 05/29/17 12:45 05/29/17 12:45 Intake and Output: 05/29/17 05/29/17 06:59 18:59 Intake Total 640 1000 Output Total 2650 -2009 1000 - Medications Medications: Current Medications Amiodarone HCl (Cordarone) 200 mg PO DAILY [facility] Last Admin: 05/29/17 10:57 Dose: 200 mg Atorvastatin Calcium (Lipitor) 10 mg PO DIN [facility] Last Admin: 05/28/17 17:37 Dose: 10 mg Digoxin (Lanoxin) 0.125 mg PO 1400 [facility] Last Admin: 05/28/17 14:04 Dose: 0.125 mg Docusate Sodium (Colace) 100 mg PO BID [facility] Last Admin: 05/29/17 11:00 Dose: 100 mg Doxercalciferol (Hectorol) 0.5 mcg PO DAILY [facility] Last Admin: 05/29/17 10:57 Dose: 0.5 mcg Furosemide (Lasix) 40 mg PO DAILY [facility] Last Admin: 05/29/17 11:01 Dose: Not Given Ceftazidime/Avibactam 0.94 gm/ (Sodium Chloride) 100 mls @ 50 mls/hr IVPB Q12H [facility] Last Admin: 05/29/17 10:28 Dose: 50 mls/hr Lactic Acid (Lac-Hydrin 12% Cream (140 G)) 0 ea TOP BID [facility] Last Admin: 05/28/17 17:34 Dose: 140 g Levalbuterol HCl (Xopenex) 0.63 mg IH [id number] [facility] Last Admin: 05/29/17 07:26 Dose: 0.63 mg Levothyroxine Sodium (Synthroid) 100 mcg PO 0600 [facility] Last Admin: 05/29/17 05:32 Dose: 100 mcg Metoclopramide HCl (Reglan) 10 mg IV ONCE PRN PRN Reason: Nausea/Vomiting Montelukast Sodium (Singulair) 10 mg PO DAILY [facility] Last Admin: 05/29/17 10:57 Dose: 10 mg Morphine Sulfate (Morphine) 4 mg IVP Q4H PRN PRN Reason: Pain, severe (8-10) Last Admin: 05/29/17 11:01 Dose: 4 mg Pantoprazole Sodium (Protonix Ec Tab) 40 mg PO 0600 [facility] Last Admin: 05/29/17 05:32 Dose: 40 mg Phenazopyridine HCl (Pyridium) 200 mg PO Q8 [facility] Last Admin: 05/29/17 05:32 Dose: 200 mg Polyethylene Glycol (Miralax) 17 gm PO BID [facility] Last Admin: 05/29/17 10:56 Dose: 17 gm Prednisone (Prednisone Tab) 10 mg PO DAILY [facility] Last Admin: 05/29/17 10:56 Dose: 10 mg Sodium Phosphate (Fleet Enema) 135 ml RC Q8 PRN PRN Reason: Constipation Tramadol HCl (Ultram) 50 mg PO TID PRN PRN Reason: Pain Last Admin: 05/28/17 05:21 Dose: 50 mg - Labs Labs: 05/29/17 05:30 05/29/17 05:30 PT 11.7 Seconds (9.9-11.8) 05/23/17 10:00 INR 1.08 (0.93-1.08) 05/23/17 10:00 APTT 26.3 Seconds (23.7-30.8) 05/23/17 10:00 - Constitutional Appears: No Acute Distress - Head Exam Head Exam: ATRAUMATIC, NORMAL INSPECTION, NORMOCEPHALIC - Eye Exam Eye Exam: EOMI, Normal appearance, PERRL - ENT Exam ENT Exam: Mucous Membranes Moist, Normal Exam - Respiratory Exam Respiratory Exam: Clear to Ausculation Bilateral, NORMAL BREATHING PATTERN. absent: Rales, Wheezes - Cardiovascular Exam Cardiovascular Exam: RRR, +S1, +S2 - GI/Abdominal Exam GI & Abdominal Exam: Soft. absent: Tenderness - Extremities Exam Extremities Exam: Normal Capillary Refill. absent: Calf Tenderness, Joint Swelling, Pedal Edema - Neurological Exam Neurological Exam: Alert, Awake, Oriented x3 - Psychiatric Exam Psychiatric exam: Normal Affect, Normal Mood - Skin Skin Exam: Dry, Intact, Normal Color, Warm Assessment and Plan - Assessment and Plan (Free Text) Assessment: 87 M with history of stage 4 castrate resistant prostate cancer, chronic heart failure, COPD, DMII, coronary artery disease, hypothyroidism, and arthritis who was admitted for hematuria and blood clots. Pt is s/p cystoscopy with evacuation of clots, cath replacement, with continuous bladder irrigation. Plan for bladder fulguration on Monday. Plan: - Plan for bladder fulguration / cauterization today - Cont CBI - Agreed to cont Zytiga - Cytotoxin as an outpt upon insurance approval - ID consulted - on Ceftazadine target of 10 days -Klebsiella pneumonia UTI - CT abdomen & pelvis with no contrast for abd pain - acute cystitis correlate with urinalysis, scheleortic mets, retroperitoneal and pelvic lymphadenopathy, small bowel mesenteric lymphadenopathy. - Cont with Pyridium; Transexamic acid d/gordo - Pain control - Prednisone 10mg daily (was previously on Zytiga but not tolerated) - Nephro Consult - cont current management - Cardio consult - cont current meds - GI and DVT ppx - PT and OT Case and plan was seen, reviewed and discussed in detail with Dr Carballo.
[2017-05-29] MEDS: Ammonium Lactate 12% Cream (140 g) TOP SCH ×2 (13:22→20:33)
[2017-05-29] MEDS ORDERED: Etomidate 20 mg/10ml Inj IV ONE (14:15)
[2017-05-29] MEDS ORDERED: Lidocaine 2% Inj (20ml) ONE (14:15)
[2017-05-29] MEDS ORDERED: Morphine 2 mg/ml ISec IVP PRN (15:04)
[2017-05-29] MEDS ORDERED: Lactated Ringer's 1,000 ML IV SCH (15:05)
[2017-05-29] MEDS ORDERED: Lidocaine 2% Jelly (Uro-Jet) ONE (15:13)
[2017-05-29] MEDS ORDERED: Morphine 2 mg/ml ISec ONE ×2 (15:24→15:33)
--- NOTE | 2017-05-29 15:40 | CP.PCM.PN ---
Subjective - Date & Time of Evaluation Date of Evaluation: 05/29/17 Time of Evaluation: 12:50 - Subjective Subjective: Comfortable in bed, not in distress, afebrile. Still with abdominal pain but a little less. For cystoscopy today. Objective - Vital Signs/Intake and Output Vital Signs (last 24 hours): Temp Pulse Resp BP Pulse Ox 98.7 F 64 20 160/73 H 100 05/28/17 16:10 05/28/17 16:10 05/28/17 16:10 05/28/17 16:10 05/28/17 16:10 Intake and Output: 05/29/17 05/29/17 06:59 18:59 Intake Total 640 Output Total 2650 -2009 - Medications Medications: Current Medications Amiodarone HCl (Cordarone) 200 mg PO DAILY [facility] Last Admin: 05/28/17 10:08 Dose: 200 mg Atorvastatin Calcium (Lipitor) 10 mg PO DIN [facility] Last Admin: 05/28/17 17:37 Dose: 10 mg Digoxin (Lanoxin) 0.125 mg PO 1400 [facility] Last Admin: 05/28/17 14:04 Dose: 0.125 mg Docusate Sodium (Colace) 100 mg PO BID [facility] Last Admin: 05/28/17 17:36 Dose: 100 mg Doxercalciferol (Hectorol) 0.5 mcg PO DAILY [facility] Last Admin: 05/28/17 10:08 Dose: 0.5 mcg Furosemide (Lasix) 40 mg PO DAILY [facility] Last Admin: 05/28/17 10:09 Dose: 40 mg Ceftazidime/Avibactam 0.94 gm/ (Sodium Chloride) 100 mls @ 50 mls/hr IVPB Q12H [facility] Last Admin: 05/28/17 20:55 Dose: 50 mls/hr Lactic Acid (Lac-Hydrin 12% Cream (140 G)) 0 ea TOP BID [facility] Last Admin: 05/28/17 17:34 Dose: 140 g Levalbuterol HCl (Xopenex) 0.63 mg IH [id number] [facility] Last Admin: 05/29/17 07:26 Dose: 0.63 mg Levothyroxine Sodium (Synthroid) 100 mcg PO 0600 [facility] Last Admin: 05/29/17 05:32 Dose: 100 mcg Metoclopramide HCl (Reglan) 10 mg IV ONCE PRN PRN Reason: Nausea/Vomiting Montelukast Sodium (Singulair) 10 mg PO DAILY [facility] Last Admin: 05/28/17 10:08 Dose: 10 mg Morphine Sulfate (Morphine) 4 mg IVP Q4H PRN PRN Reason: Pain, severe (8-10) Last Admin: 05/28/17 10:48 Dose: 4 mg Pantoprazole Sodium (Protonix Ec Tab) 40 mg PO 0600 [facility] Last Admin: 05/29/17 05:32 Dose: 40 mg Phenazopyridine HCl (Pyridium) 200 mg PO Q8 [facility] Last Admin: 05/29/17 05:32 Dose: 200 mg Polyethylene Glycol (Miralax) 17 gm PO BID [facility] Last Admin: 05/28/17 17:37 Dose: Not Given Prednisone (Prednisone Tab) 10 mg PO DAILY [facility] Last Admin: 05/28/17 10:08 Dose: 10 mg Sodium Phosphate (Fleet Enema) 135 ml RC Q8 PRN PRN Reason: Constipation Tramadol HCl (Ultram) 50 mg PO TID PRN PRN Reason: Pain Last Admin: 05/28/17 05:21 Dose: 50 mg - Labs Labs: 05/29/17 05:30 05/29/17 05:30 PT 11.7 Seconds (9.9-11.8) 05/23/17 10:00 INR 1.08 (0.93-1.08) 05/23/17 10:00 APTT 26.3 Seconds (23.7-30.8) 05/23/17 10:00 - Constitutional Appears: Non-toxic, No Acute Distress - Head Exam Head Exam: NORMAL INSPECTION - ENT Exam ENT Exam: Mucous Membranes Moist - Neck Exam Neck Exam: absent: Lymphadenopathy, Meningismus - Respiratory Exam Respiratory Exam: Decreased Breath Sounds - Cardiovascular Exam Cardiovascular Exam: +S1, +S2 - GI/Abdominal Exam GI & Abdominal Exam: Soft. 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
[2017-05-29] MEDS ORDERED: HYDROmorphone 0.5 mg/0.5 ml ISec ONE (15:44)
[2017-05-29] MEDS ORDERED: HYDROmorphone 0.5 mg/0.5 ml ISec IVP PRN (15:46)
--- NOTE | 2017-05-29 19:34 | PN ---
DATE: 05/29/2017 SUBJECTIVE: The patient is seen sitting in bed. OBJECTIVE: GENERAL: He is awake, alert, comfortable. VITAL SIGNS: Blood pressure 149/55, heart rate 62, respiratory rate 18, temperature 98.5. HEENT: Normocephalic, atraumatic. NECK: Supple, no JVD. LUNGS: Bilateral rhonchi, distant breath sounds, no rales. CARDIAC: S1 and S2, regular rate and rhythm, no murmur, no rub. ABDOMEN: Soft, distended, bowel sounds present, tenderness in the lower abdomen. EXTREMITIES: 2+ pitting edema of the lower extremities. INTAKE AND OUTPUT: 640/5500? LABORATORY DATA: WBC 10, hemoglobin 9.3, hematocrit 29, platelets 167. Sodium 134, potassium 4.3, chloride 98, CO2 is 33, BUN 33, creatinine 1.0, glucose 104, calcium 7.6, albumin 2.8, corrected calcium is 8.4. Urine culture gram-negative willam even from 05/2011. CURRENT MEDICATIONS: Ceftazidime/avibactam q.12, Colace, Cordarone, Fleet Enema, Hectorol, digoxin, Lasix 40 daily, Lipitor, MiraLax, morphine, prednisone, Protonix, Reglan, Singulair, Synthroid, tramadol. ASSESSMENT: 1. Resolved acute kidney injury. 2. Metastatic prostate cancer with bladder wall infiltration. 3. Recurrent hematuria/clot retention. 4. Recurrent urinary tract infection. 5. Hypertension. 6. Non-insulin dependent diabetes mellitus. 7. Coronary artery disease/atrial fibrillation/cardiomyopathy. PLAN: 1. The patient is scheduled for cystoscopy and possible fulguration of bleeding bladder mucosa. 2. Continue CBI as per urology recommendations. 3. Continue Lasix 40 mg daily. 4. Avoid excessive fluids. Marianne Lozano MD
[2017-05-29] MEDS: Digoxin 125 mcg (0.125 mg) Tab PO SCH (20:33)
--- NOTE | 2017-05-29 23:04 | OP ---
PROCEDURE DATE: 05/29/2017 PREOPERATIVE DIAGNOSES: Gross hematuria, prostatic and bladder bleeding, clot retention. POSTOPERATIVE DIAGNOSES: Gross hematuria, prostatic and bladder bleeding, clot retention. PROCEDURE: Cystoscopy, fulguration of prostatic and bladder bleeding points. ATTENDING SURGEON: Dr. Eddie Louise. TYPE OF ANESTHESIA: General. SPECIMENS: There were none. DRAINS: A 24-Albanian 3-way Avendano catheter. COMPLICATIONS: None. OPERATIVE FINDINGS: After informed consent was obtained, the patient was taken to the operating room and placed on the operating table. Anesthesia was administered. The patient was then placed in a dorsal lithotomy position and prepped and draped in the usual sterile fashion. A 26-Albanian resectoscope with visualizing obturator was placed in the patient's urethra and advanced proximally under direct vision until the bladder was entered. A full survey inspection of the bladder was then performed, which revealed no large clots. There was ragged area on the posterior wall of the bladder which appeared to be catheter reaction, this extended from the bladder neck on to the posterior wall covering the trigone. Both ureteral orifices could be visualized, they did not appear to be affected in the area of inflammation. There was hypervascularity of the bladder, apparently some radiation effect. Exam of the prostatic urethra reveled ragged growth in the prostatic urethra. There was some inflammation and active oozing noted. This extended throughout the entire length of the prostatic urethra up to and passed the verumontanum. At this point, a rollable electrode was used to completely fulgurate any of the ragged areas noted in the prostatic urethra and then the bladder. Care was taken to avoid cauterizing the ureteral orifices which could both be visualized unaffected after all the ragged tissues were cauterized. Inspection was made without any irrigation. There was no active bleeding noted. There was no ooze noted. At this point, the procedure was completed, the bladder was drained, the scope was removed and a 24-Al[place]ian 3-way Avendano catheter was passed to continuous bladder irrigation. The patient tolerated the procedure well. He was taken to the recovery room in awake and stable condition. Eddie Louise MD
[2017-05-30] MEDS: Levalbuterol 0.63 MG/3 ML Inhal Soln UD IH SCH ×4 (02:00→20:55)
--- NOTE | 2017-05-30 05:05 | PN ---
DATE: 05/29/2017 LOCATION: The patient is in room 578, bed 1. REASON FOR CONSULTATION: Followup coronary artery disease. SUBJECTIVE: The patient denies any chest pain, shortness of breath, or palpitation. He continues to have pain in the pelvic area due to his urological problems. He has a history of CA of the prostate. PHYSICAL EXAMINATION: VITAL SIGNS: Blood pressure 155/60, respirations 17, pulse 64, and temperature 98.2. HEENT: Head is normocephalic. Eyes: Pupils normal. Conjunctivae slightly pale. NECK: JVP low. Carotid equal. Thorax: AP diameter normal. LUNGS: Clear. CARDIOVASCULAR: S1 and S2, systolic murmur. No rub. ABDOMEN: Soft. No organomegaly. Bowel sounds normal. EXTREMITIES: No clubbing. No cyanosis. LABORATORY DATA: WBC 10.0, hemoglobin 9.3, hematocrit 29.2, and platelets 167. Sodium 134, potassium 4.3, BUN 33, creatinine 1.0. Random sugar 167. Another random glucose 104, calcium 7.6. DIAGNOSES: Coronary artery disease, history of bypass surgery. The patient had multiple angioplasties and stent insertion, history of mitral valve repair, paroxysmal atrial fibrillation, cancer of prostate, indwelling Avendano catheter, abdominal pain, and clogging of 3-way catheter. PLAN: The patient is going to have cystoscopy today and our note on 05/23/2017 shows that the patient is at high risk, but there is no contraindication, but he is in so much pain and he needs to be evaluated by cystoscopy and any other procedure related to that can be done from cardiac point of view with understanding the patient's high risk procedure, but there is no absolute contraindication to not to do procedure. The patient has high risk of urosepsis, so we can do the procedure and help him with the pain and avoid urosepsis that will be helpful. The patient is on medications: Amiodarone 200 mg p.o. daily, digoxin 0.125 daily, furosemide 40 p.o. daily, Synthroid 100 mcg p.o. daily, Xopenex p.r.n., Pyridium 200 p.o. q.8 hours, Protonix 40 daily, prednisone 10 mg p.o. daily, atorvastatin 10 mg daily, and insulin as ordered. The patient on ceftazidime/avibactam, which is Avycaz 0.94 g IV q.12 hours. We will continue present therapy. We will follow. Mely Walters MD
[2017-05-30] MEDS: Pantoprazole 40 mg EC Tab PO SCH (07:58)
[2017-05-30] MEDS: Levothyroxine 100 MCG TAB PO SCH (07:58)
[2017-05-30 09:07] LABS: BASO # 0.03 K/mm3 (0.0-2.0); BASO % 0.2 % (0.0-3.0); EOS # 0.1 (0.0-0.7); EOS % 0.7 % (1.5-5.0); GRAN # 10.66 (1.4-6.5); GRAN % 81.3 % (50.0-68.0); HEMOGLOBIN 9.9 g/dL (14.0-18.0); LYMPH # 1.2 (1.2-3.4); LYMPH % 8.9 % (22.0-35.0); MEAN CELL VOLUME 89.1 fl (80.0-105.0); MEAN CORPUSCULAR HEMOGLOBIN 27.6 pg (25.0-35.0); MEAN CORPUSCULAR HGB CONC 30.9 g/dl (31.0-37.0); MEAN PLATELET VOLUME 9.4 fl (7.0-11.0); MONO # 1.2 (0.1-0.6); MONO % 8.9 % (1.0-6.0); PLATELET COUNT 249 10^3/uL (120.0-450.0); RBC 3.59 10^6/uL (3.5-6.1); RED CELL DISTRIBUTION WIDTH 15.9 % (11.5-14.5); WHITE BLOOD COUNT 13.1 10^3/ul (4.5-11.0)
[2017-05-30 09:11] LABS: ALB/GLOB RATIO 1.1 (1.1-1.8); ALBUMIN 2.4 g/dL (3.0-4.8); ALT/SGPT 64 U/L (7-56); AST/SGOT 45 U/L (15-59); BLOOD UREA NITROGEN 28 mg/dL (7-21); GFR AFRICAN-AMERICAN > 60; GFR NON-AFRICAN AMERICAN > 60
[2017-05-30 09:20] LABS: CALCIUM 6.5 mg/dL (8.4-10.5)
[2017-05-30] MEDS: Insulin Human NPH/Reg 70/30 Vial(3 ml) SC SCH ×5 (09:34→22:02)
[2017-05-30] MEDS ORDERED: Calcium Chloride 1000 mg/10 ml Syringe IV ONE ×2 (10:26→11:57)
--- NOTE | 2017-05-30 11:30 | CP.PCM.PN ---
Subjective - Date & Time of Evaluation Date of Evaluation: 05/30/17 Time of Evaluation: 10:00 - Subjective Subjective: Heme/onc note for Dr Carballo: Pt was seen and examined at bedside. No acute events overnight. C/o of pain and burning by his rectum, and some badder spasms. Denies any hematuria. Denies any buckner, dizziness, f/c, n/v/d, sob, cp, abd pain. Objective - Vital Signs/Intake and Output Vital Signs (last 24 hours): Temp Pulse Resp BP Pulse Ox 97.6 F 60 18 156/75 H 97 05/30/17 08:00 05/30/17 08:00 05/30/17 08:00 05/30/17 08:00 05/30/17 08:00 Intake and Output: 05/30/17 05/30/17 06:59 18:59 Intake Total 720 Output Total 2500 Balance -1780 - Medications Medications: Current Medications Amiodarone HCl (Cordarone) 200 mg PO DAILY [facility] Last Admin: 05/29/17 10:57 Dose: 200 mg Atorvastatin Calcium (Lipitor) 10 mg PO DIN [facility] Last Admin: 05/29/17 18:51 Dose: 10 mg Digoxin (Lanoxin) 0.125 mg PO 1400 [facility] Last Admin: 05/29/17 20:33 Dose: Not Given Docusate Sodium (Colace) 100 mg PO BID [facility] Last Admin: 05/29/17 18:51 Dose: 100 mg Doxercalciferol (Hectorol) 0.5 mcg PO DAILY [facility] Last Admin: 05/29/17 10:57 Dose: 0.5 mcg Furosemide (Lasix) 40 mg PO DAILY [facility] Last Admin: 05/29/17 11:01 Dose: Not Given Ceftazidime/Avibactam 2.5 gm/ (Sodium Chloride) 100 mls @ 50 mls/hr IVPB Q8 [facility] Calcium Chloride 1,000 mg/ (Sodium Chloride) 110 mls @ 110 mls/hr IV ONCE ONE Stop: 05/30/17 11:44 Lactic Acid (Lac-Hydrin 12% Cream (140 G)) 0 ea TOP BID [facility] Last Admin: 05/29/17 20:33 Dose: 1 applic Levalbuterol HCl (Xopenex) 0.63 mg IH [id number] [facility] Last Admin: 05/30/17 07:07 Dose: 0.63 mg Levothyroxine Sodium (Synthroid) 100 mcg PO 0600 [facility] Last Admin: 05/30/17 07:58 Dose: 100 mcg Metoclopramide HCl (Reglan) 10 mg IV ONCE PRN PRN Reason: Nausea/Vomiting Montelukast Sodium (Singulair) 10 mg PO DAILY [facility] Last Admin: 05/29/17 10:57 Dose: 10 mg Morphine Sulfate (Morphine) 4 mg IVP Q4H PRN PRN Reason: Pain, severe (8-10) Last Admin: 05/29/17 11:01 Dose: 4 mg Ondansetron HCl (Zofran Inj) 4 mg IVP Q4H PRN PRN Reason: Nausea/Vomiting Pantoprazole Sodium (Protonix Ec Tab) 40 mg PO 0600 [facility] Last Admin: 05/30/17 07:58 Dose: 40 mg Phenazopyridine HCl (Pyridium) 200 mg PO Q8 [facility] Last Admin: 05/30/17 07:58 Dose: 200 mg Polyethylene Glycol (Miralax) 17 gm PO BID [facility] Last Admin: 05/29/17 18:51 Dose: 17 gm Prednisone (Prednisone Tab) 10 mg PO DAILY [facility] Last Admin: 05/29/17 10:56 Dose: 10 mg Sodium Phosphate (Fleet Enema) 135 ml RC Q8 PRN PRN Reason: Constipation Tramadol HCl (Ultram) 50 mg PO TID PRN PRN Reason: Pain Last Admin: 05/28/17 05:21 Dose: 50 mg - Labs Labs: 05/30/17 08:50 05/30/17 08:50 PT 11.7 Seconds (9.9-11.8) 05/23/17 10:00 INR 1.08 (0.93-1.08) 05/23/17 10:00 APTT 26.3 Seconds (23.7-30.8) 05/23/17 10:00 - Constitutional Appears: No Acute Distress - Eye Exam Eye Exam: EOMI, PERRL - ENT Exam ENT Exam: Mucous Membranes Moist - Respiratory Exam Respiratory Exam: Clear to Ausculation Bilateral. absent: Rales, Wheezes - Cardiovascular Exam Cardiovascular Exam: RRR, +S1, +S2 - GI/Abdominal Exam GI & Abdominal Exam: Soft. absent: Distended, Tenderness - Extremities Exam Extremities Exam: absent: Calf Tenderness, Pedal Edema - Back Exam Back Exam: absent: CVA tenderness (L) - Neurological Exam Neurological Exam: Alert, Awake, Oriented x3 - Psychiatric Exam Psychiatric exam: Normal Mood - Skin Skin Exam: Dry, Intact, Warm Assessment and Plan - Assessment and Plan (Free Text) Assessment: 87 M with history of stage 4 castrate resistant prostate cancer, chronic heart failure, COPD, DMII, coronary artery disease, hypothyroidism, and arthritis who was admitted for hematuria and blood clots. Pt is s/p cystoscopy with evacuation of clots, cath replacement, with continuous bladder irrigation. s/p bladder fulguration POD1. Plan: - s/p bladder fulguration / cauterization today - Cont CBI - follow up urology recs - cardiology recs- cont current therapy - To cont Zytiga - Cytotoxin as an outpt upon insurance approval - ID consulted - on Ceftazadine target of 10 days - CT abdomen & pelvis with no contrast for abd pain - acute cystitis correlate with urinalysis, scheleortic mets, retroperitoneal and pelvic lymphadenopathy, small bowel mesenteric lymphadenopathy. - Cont with Pyridium; Transexamic acid d/gordo - Pain control - Prednisone 10mg daily (was previously on Zytiga but not tolerated) - Nephro Consult - cont current management - Cardio consult - cont current meds - GI and DVT ppx - PT and OT Case and plan was seen, reviewed and discussed in detail with Dr Carballo.
[2017-05-30] MEDS: Ammonium Lactate 12% Cream (140 g) TOP SCH ×2 (11:45→19:53)
[2017-05-30] MEDS: POLYETHYLENE GLYCOL 3350 17 GM/Dose PACKET PO SCH ×2 (12:07→19:52)
--- NOTE | 2017-05-30 12:10 | CP.PCM.CON ---
<Claudia Armendariz - Last Filed: 05/30/17 12:09> History of Present Illness - History of Present Illness History of Present Illness: Seen and examined at bedside, chart was reviewed. Request for GI consult is for Abdominal pain. HPI: This is a 87 year old male with history of Stage IV Prostate Cancer admitted with complaints of hematuria, had cystoscopy on admission. He is well known by our service. Yesterday he had a Bladder Fulgration. He has history of chronic constipation and was having regular BM but at least 2 days the BM are small amounts. He complains of rectal discomfort, no melena or BRBPR. He has abdominal pain to RLQ, no acute distress, he went for a ct scan of the A&P this morning and it revealed extensive retroperitoneal/pelvic lymphadenopathy, cholelithiasis w/ tiny stones in the gallbladder neck but no other findings to suggest acute cholecystitis. Concern for acute cystitis. He is also complaining of rectal pain. Denies melena or BRBPR. He denies poor appetite, he is tolerating oral intake. PMH: CHF, COPD, CAD, cardiac stent, Prostate cancer, chronic constipation, DM, Gallstones,Hypothyroidism,chronic indwelling catheter, [place] PSH: multiple angioplasty, cardiac stents, quadruple bypass, cataract surgery Allergies: Iodinated contrast: oral and IV, levofloxin FMH: noncontributory at this time MEDS: reviewed as per MAR Social HX: denies smoking, ETOH, Drugs ROS: systems reviewed with positive findings, see HPI. Past Patient History - Infectious Disease Hx of Infectious Diseases: None - Tetanus Immunizations Tetanus Immunization: Unknown - Past Medical History & Family History Past Medical History?: Yes - Past Social History Smoking Status: Unknown If Ever Smoked - CARDIAC Hx Cardiac Disorders: Yes (ACS, CAD, CABG) Hx Congestive Heart Failure: Yes Hx Hypertension: Yes - PULMONARY Hx Chronic Obstructive Pulmonary Disease (COPD): Yes - NEUROLOGICAL Hx Neurological Disorder: No - HEENT Hx HEENT Problems: Yes (apache) Hx Cataracts: Yes (WITH b/t SURGERY) Hx Glaucoma: Yes - RENAL Hx Renal Failure: Yes - ENDOCRINE/METABOLIC Hx Diabetes Mellitus Type 2: Yes Hx Hypothyroidism: Yes - HEMATOLOGICAL/ONCOLOGICAL Hx Blood Transfusions: Yes Hx Blood Transfusion Reaction: No - INTEGUMENTARY Other/Comment: multiple skin discolorations and tatoos both arms, multiple brown skin discolorations ble - MUSCULOSKELETAL/RHEUMATOLOGICAL Hx Arthritis: Yes - GASTROINTESTINAL Hx Gastrointestinal Disorders: No - GENITOURINARY/GYNECOLOGICAL Hx Genitourinary Disorders: Yes Hx Hematuria: Yes Hx Prostate Cancer: Yes Hx Reproductive Disorders: No - PSYCHIATRIC Hx Psychophysiologic Disorder: No Hx Emotional Abuse: No Hx Physical Abuse: No Hx Substance Use: No - SURGICAL HISTORY Hx Surgeries: Yes - ANESTHESIA Hx Anesthesia Reactions: No Hx Malignant Hyperthermia: No Meds Allergies/Adverse Reactions: Allergies Allergy/AdvReac Type Severity Reaction Status Date / Time Iodinated Contrast- Oral and Allergy ANAPHYLAXIS Verified 05/23/17 09:56 IV Dye levofloxacin [From Levaquin] Allergy ANAPHYLAXIS Verified 05/23/17 09:56 - Medications Medications: Current Medications Amiodarone HCl (Cordarone) 200 mg PO DAILY [facility] Last Admin: 05/29/17 10:57 Dose: 200 mg Atorvastatin Calcium (Lipitor) 10 mg PO DIN [facility] Last Admin: 05/29/17 18:51 Dose: 10 mg Digoxin (Lanoxin) 0.125 mg PO 1400 [facility] Last Admin: 05/29/17 20:33 Dose: Not Given Docusate Sodium (Colace) 100 mg PO BID [facility] Last Admin: 05/29/17 18:51 Dose: 100 mg Doxercalciferol (Hectorol) 0.5 mcg PO DAILY [facility] Last Admin: 05/29/17 10:57 Dose: 0.5 mcg Furosemide (Lasix) 40 mg PO DAILY [facility] Last Admin: 05/29/17 11:01 Dose: Not Given Ceftazidime/Avibactam 2.5 gm/ (Sodium Chloride) 100 mls @ 50 mls/hr IVPB Q8 [facility] Calcium Chloride 1,000 mg/ (Sodium Chloride) 110 mls @ 110 mls/hr IV ONCE ONE Stop: 05/30/17 11:44 Lactic Acid (Lac-Hydrin 12% Cream (140 G)) 0 ea TOP BID [facility] Last Admin: 05/29/17 20:33 Dose: 1 applic Levalbuterol HCl (Xopenex) 0.63 mg IH [id number] [facility] Last Admin: 05/30/17 07:07 Dose: 0.63 mg Levothyroxine Sodium (Synthroid) 100 mcg PO 0600 [facility] Last Admin: 05/30/17 07:58 Dose: 100 mcg Metoclopramide HCl (Reglan) 10 mg IV ONCE PRN PRN Reason: Nausea/Vomiting Montelukast Sodium (Singulair) 10 mg PO DAILY [facility] Last Admin: 05/29/17 10:57 Dose: 10 mg Morphine Sulfate (Morphine) 4 mg IVP Q4H PRN PRN Reason: Pain, severe (8-10) Last Admin: 05/29/17 11:01 Dose: 4 mg Ondansetron HCl (Zofran Inj) 4 mg IVP Q4H PRN PRN Reason: Nausea/Vomiting Pantoprazole Sodium (Protonix Ec Tab) 40 mg PO 0600 [facility] Last Admin: 05/30/17 07:58 Dose: 40 mg Phenazopyridine HCl (Pyridium) 200 mg PO Q8 [facility] Last Admin: 05/30/17 07:58 Dose: 200 mg Polyethylene Glycol (Miralax) 17 gm PO BID [facility] Last Admin: 05/29/17 18:51 Dose: 17 gm Prednisone (Prednisone Tab) 10 mg PO DAILY [facility] Last Admin: 05/29/17 10:56 Dose: 10 mg Sodium Phosphate (Fleet Enema) 135 ml RC Q8 PRN PRN Reason: Constipation Tramadol HCl (Ultram) 50 mg PO TID PRN PRN Reason: Pain Last Admin: 05/28/17 05:21 Dose: 50 mg Physical Exam - Constitutional Appears: No Acute Distress - Head Exam Head Exam: NORMOCEPHALIC - Eye Exam Eye Exam: Normal appearance. absent: Scleral icterus - ENT Exam ENT Exam: Mucous Membranes Moist - Neck Exam Neck exam: Positive for: Normal Inspection - Respiratory Exam Respiratory Exam: NORMAL BREATHING PATTERN. absent: Respiratory Distress - Cardiovascular Exam Cardiovascular Exam: +S1, +S2 - GI/Abdominal Exam GI & Abdominal Exam: Normal Bowel Sounds, Soft, Tenderness (right lower quaderant). absent: Guarding, Rebound - Rectal Exam Additional comments: anal canal felt edema and (+) brown stool at 12 o'clock, no blood - Extremities Exam Extremities exam: Positive for: pedal edema, pedal pulses present. Negative for : calf tenderness - Neurological Exam Neurological exam: Alert, Oriented x3 - Skin Skin Exam: Dry, Warm Results - Vital Signs Recent Vital Signs: Last Vital Signs Temp 97.6 F 05/30/17 08:00 Pulse 60 05/30/17 08:00 Resp 18 05/30/17 08:00 BP 156/75 H 05/30/17 08:00 Pulse Ox 97 05/30/17 08:00 - Labs Result Diagrams: 05/30/17 08:50 05/30/17 08:50 Labs: Laboratory Results - last 24 hr 05/28/17 05/29/17 05/29/17 20:50 07:32 11:16 WBC RBC Hgb Hct MCV MCH MCHC RDW Plt Count MPV Gran % Lymph % (Auto) Rooks % (Auto) Eos % (Auto) Baso % (Auto) Gran # Lymph # Rooks # Eos # Baso # Sodium Potassium Chloride Carbon Dioxide Anion Gap BUN Creatinine Est GFR ( Amer) Est GFR (Non-Af Amer) POC Glucose (mg/dL) 364 H 86 126 H Random Glucose Calcium Total Bilirubin AST ALT Alkaline Phosphatase Total Protein Albumin Globulin Albumin/Globulin Ratio 05/29/17 05/29/17 05/30/17 17:45 21:16 07:34 WBC RBC Hgb Hct MCV MCH MCHC RDW Plt Count MPV Gran % Lymph % (Auto) Rooks % (Auto) Eos % (Auto) Baso % (Auto) Gran # Lymph # Rooks # Eos # Baso # Sodium Potassium Chloride Carbon Dioxide Anion Gap BUN Creatinine Est GFR ( Amer) Est GFR (Non-Af Amer) POC Glucose (mg/dL) 167 H 196 H 76 Random Glucose Calcium Total Bilirubin AST ALT Alkaline Phosphatase Total Protein Albumin Globulin Albumin/Globulin Ratio 05/30/17 05/30/17 05/30/17 08:46 08:50 08:50 WBC 13.1 H D RBC 3.59 Hgb 9.9 L Hct 32.0 L MCV 89.1 MCH 27.6 MCHC 30.9 L RDW 15.9 H Plt Count 249 MPV 9.4 Gran % 81.3 H Lymph % (Auto) 8.9 L Rooks % (Auto) 8.9 H Eos % (Auto) 0.7 L Baso % (Auto) 0.2 Gran # 10.66 H Lymph # 1.2 Rooks # 1.2 H Eos # 0.1 Baso # 0.03 Sodium 135 Potassium 4.0 Chloride 103 Carbon Dioxide 26 Anion Gap 10 BUN 28 H Creatinine 0.9 Est GFR ( Amer) > 60 Est GFR (Non-Af Amer) > 60 POC Glucose (mg/dL) 148 H Random Glucose 158 H Calcium 6.5 L* Total Bilirubin 0.6 AST 45 ALT 64 H Alkaline Phosphatase 138 H Total Protein 4.6 L Albumin 2.4 L Globulin 2.2 Albumin/Globulin Ratio 1.1 Assessment & Plan - Assessment and Plan (Free Text) Assessment: ASSESSMENT: Abdominal Pain Stage IV Prostate Cancer, s/p Cystoscopy w/CBI and yesterday s/p Bladder Fulguration Abdominal & Pelvic lymphadenopathy Chronic Constipation Gallstones DM CAD COPD PLAN: continue Miralax BID continue Colace give a dose of Dulcolax GA On Pyridium diet as tolerated monitor electrolytes, H/H as per urology/oncology Thank you for this consult and for allowing us to participate in your patient care, will make further recommendation based upon clinical course. Seen and discussed w/ Dr. Bal. <Fredi Bal V - Last Filed: 05/30/17 22:54> Meds - Medications Medications: Current Medications Amiodarone HCl (Cordarone) 200 mg PO DAILY [facility] Last Admin: 05/30/17 12:07 Dose: 200 mg Atorvastatin Calcium (Lipitor) 10 mg PO DIN [facility] Last Admin: 05/30/17 16:35 Dose: 10 mg Calcium Carbonate (Oscal) 500 mg PO TID [facility] Last Admin: 05/30/17 19:51 Dose: 500 mg Digoxin (Lanoxin) 0.125 mg PO 1400 [facility] Last Admin: 05/30/17 16:34 Dose: 0.125 mg Docusate Sodium (Colace) 100 mg PO BID [facility] Last Admin: 05/30/17 19:51 Dose: 100 mg Doxercalciferol (Hectorol) 0.5 mcg PO DAILY [facility] Last Admin: 05/30/17 12:08 Dose: 0.5 mcg Furosemide (Lasix) 40 mg PO DAILY [facility] Last Admin: 05/30/17 12:08 Dose: 40 mg Ceftazidime/Avibactam 2.5 gm/ (Sodium Chloride) 100 mls @ 50 mls/hr IVPB Q8 [facility] Last Admin: 05/30/17 21:50 Dose: 50 mls/hr Lactic Acid (Lac-Hydrin 12% Cream (140 G)) 0 ea TOP BID [facility] Last Admin: 05/30/17 19:53 Dose: 1 applic Levalbuterol HCl (Xopenex) 0.63 mg IH [id number] [facility] Last Admin: 05/30/17 20:55 Dose: 0.63 mg Levothyroxine Sodium (Synthroid) 100 mcg PO 0600 [facility] Last Admin: 05/30/17 07:58 Dose: 100 mcg Metoclopramide HCl (Reglan) 10 mg IV ONCE PRN PRN Reason: Nausea/Vomiting Montelukast Sodium (Singulair) 10 mg PO DAILY [facility] Last Admin: 05/30/17 12:08 Dose: 10 mg Morphine Sulfate (Morphine) 4 mg IVP Q4H PRN PRN Reason: Pain, severe (8-10) Last Admin: 05/29/17 11:01 Dose: 4 mg Ondansetron HCl (Zofran Inj) 4 mg IVP Q4H PRN PRN Reason: Nausea/Vomiting Pantoprazole Sodium (Protonix Ec Tab) 40 mg PO 0600 [facility] Last Admin: 05/30/17 07:58 Dose: 40 mg Phenazopyridine HCl (Pyridium) 200 mg PO Q8 [facility] Last Admin: 05/30/17 21:50 Dose: 200 mg Polyethylene Glycol (Miralax) 17 gm PO BID [facility] Last Admin: 05/30/17 19:52 Dose: 17 gm Prednisone (Prednisone Tab) 10 mg PO DAILY [facility] Last Admin: 05/30/17 12:08 Dose: 10 mg Sodium Phosphate (Fleet Enema) 135 ml RC Q8 PRN PRN Reason: Constipation Tramadol HCl (Ultram) 50 mg PO TID PRN PRN Reason: Pain Last Admin: 05/28/17 05:21 Dose: 50 mg Results - Vital Signs Recent Vital Signs: Last Vital Signs Temp 98 F 05/30/17 16:30 Pulse 71 05/30/17 16:30 Resp 19 05/30/17 16:30 BP 143/71 05/30/17 21:20 Pulse Ox 95 05/30/17 16:30 - Labs Result Diagrams: 05/30/17 08:50 05/30/17 08:50 Labs: Laboratory Results - last 24 hr 05/30/17 05/30/17 05/30/17 07:34 08:46 08:50 WBC 13.1 H D RBC 3.59 Hgb 9.9 L Hct 32.0 L MCV 89.1 MCH 27.6 MCHC 30.9 L RDW 15.9 H Plt Count 249 MPV 9.4 Gran % 81.3 H Lymph % (Auto) 8.9 L Rooks % (Auto) 8.9 H Eos % (Auto) 0.7 L Baso % (Auto) 0.2 Gran # 10.66 H Lymph # 1.2 Rooks # 1.2 H Eos # 0.1 Baso # 0.03 Sodium Potassium Chloride Carbon Dioxide Anion Gap BUN Creatinine Est GFR ( Amer) Est GFR (Non-Af Amer) POC Glucose (mg/dL) 76 148 H Random Glucose Calcium Magnesium Total Bilirubin AST ALT Alkaline Phosphatase Total Protein Albumin Globulin Albumin/Globulin Ratio 05/30/17 05/30/17 05/30/17 08:50 11:38 11:54 WBC RBC Hgb Hct MCV MCH MCHC RDW Plt Count MPV Gran % Lymph % (Auto) Rooks % (Auto) Eos % (Auto) Baso % (Auto) Gran # Lymph # Rooks # Eos # Baso # Sodium 135 Potassium 4.0 Chloride 103 Carbon Dioxide 26 Anion Gap 10 BUN 28 H Creatinine 0.9 Est GFR ( Amer) > 60 Est GFR (Non-Af Amer) > 60 POC Glucose (mg/dL) 84 Random Glucose 158 H Calcium 6.5 L* Magnesium 2.1 Total Bilirubin 0.6 AST 45 ALT 64 H Alkaline Phosphatase 138 H Total Protein 4.6 L Albumin 2.4 L Globulin 2.2 Albumin/Globulin Ratio 1.1 05/30/17 05/30/17 16:02 20:59 WBC RBC Hgb Hct MCV MCH MCHC RDW Plt Count MPV Gran % Lymph % (Auto) Rooks % (Auto) Eos % (Auto) Baso % (Auto) Gran # Lymph # Rooks # Eos # Baso # Sodium Potassium Chloride Carbon Dioxide Anion Gap BUN Creatinine Est GFR ( Amer) Est GFR (Non-Af Amer) POC Glucose (mg/dL) 122 H 155 H Random Glucose Calcium Magnesium Total Bilirubin AST ALT Alkaline Phosphatase Total Protein Albumin Globulin Albumin/Globulin Ratio Attending/Attestation - Attestation I have personally seen and examined this patient.: Yes I have fully participated in the care of the patient.: Yes I have reviewed all pertinent clinical information: Yes Notes (Text): this patient was seen and evaluated earlier. Patient's family was at bedside patient did have some improvement after loose bowel movement today. On examination has a mild tenderness in the suprapubic and right Lower quadrant area. Would recommend stool for C. difficile continue MiraLAX on when necessary basis Continue present treatment Thank you very much for allowing us to participate in the care of the patient
--- NOTE | 2017-05-30 13:08 | PN ---
DATE: 05/30/2017 SUBJECTIVE: The patient had Cysto with transurethral fulguration of his prostate yesterday. The urine is clear on CVI. I will continue the CVI one day more and then he could be discharged with the Avendano in, tomorrow and we will followup with Dr. Louise in the office. He is afebrile. Leonides Masterson MD
--- NOTE | 2017-05-30 13:39 | PN ---
LOCATION: The patient is in room 578, bed 1. SUBJECTIVE: He was admitted with urinary retention, abdominal pain, infection in the abdominal cavity. The patient has history of prostate cancer with congestive disease to the lymph nodes in the abdomen and pelvis. The patient had severe continued hematuria resulting in anemia. His hemoglobin dropped to 8.4 and then the patient had blood transfusions after admission. Anyway, he is in the transitional care unit now. He is getting continued treatment for urinary retention, hematuria. The patient had a procedure yesterday by Dr. Louise. Cystoscopy and laser treatment down the bladder wall was done by Dr. Louise yesterday. PHYSICAL EXAMINATION: VITAL SIGNS: This morning the pulse is 64, blood pressure 125/60, respirations 17, and O2 saturation 98% on room 3 liters of oxygen. The patient's temperature is 98.3. LUNGS: Clear bilaterally, except that rhonchi was heard. HEART: Normal sinus rhythm. The patient had a pacemaker. ABDOMEN: Soft. Tenderness diffusely present. No localizing signs. CENTRAL NERVOUS SYSTEM: The patient has no focal neurological deficit. LABORATORY DATA: The patient's blood work shows white count of 10,000 that was yesterday. The patient's chemistry; the patient's sugar is 196, this morning it is 76. His last BUN was 33, creatinine was 1.0. MEDICATIONS: The patient's medications list; the patient has given morphine for pain because he has pain radiating from the genital area into the rectum, postsurgical procedure. The patient's digoxin is 125 mcg daily. The patient is on Lasix 40 mg daily; amiodarone 200 mg daily. The patient is on avibactam/ceftazidime, this combination antibiotic for the infection that is twice a day. The patient's Lipitor is 10 mg daily; morphine sulfate 2 mg IV . PLAN: The patient's condition is improving clinically. We will provide physical therapy, observe the patient, and irrigation of the bladder continues at this time. Giselle Polk MD
--- NOTE | 2017-05-30 14:35 | PN ---
DATE: 05/30/2017 REASON FOR CONSULTATION: Followup coronary artery disease. SUBJECTIVE: The patient denies any chest pain, shortness of breath, or any palpitation. OBJECTIVE: GENERAL: Lying flat, sitting in the bed. Denies any chest pain, shortness of breath, or any palpitation. VITAL SIGNS: As follows; temperature afebrile, heart rate 60, blood pressure 155/60. HEENT: PERRLA. Extraocular muscles intact. NECK: Supple. No carotid bruit. No thyromegaly. CHEST: Clear to auscultation. HEART: S1 and S2 regular. ABDOMEN: Soft. EXTREMITIES: Clubbing and cyanosis negative. LABORATORY DATA: Blood workup as follows; WBC 13.9, hemoglobin 9.9, hematocrit 32.0, platelet count 249. Chemistry shows sodium 135, potassium 4, chloride 103, carbon dioxide 26, anion gap of 10, BUN 28, creatinine 0.9. IMPRESSION: An 87-year-old male with past medical history significant for coronary artery disease, status post pre and post-coronary artery bypass graft, percutaneous transluminal coronary angioplasty, status post mitral valve repair, status post coronary artery bypass graft, history of prostate cancer with metastasis indwelling Avendano catheter, admitted with clogging of the Avendano catheter. As the patient has 3-Way Avendano catheter. The patient is scheduled for OR underwent cystoscopy and fulguration. No compliant of chest pain, shortness of breath, or any palpitation. History of gross hematuria and Avendano catheter was changed. The patient underwent cystoscopy. RECOMMENDATIONS: The patient from the cardiology point of view is clear to go for as needed repeat cystoscopy. Continue gentle diuretics, prevent from going into CHF. Continue amiodarone. Continue Levothyroxine. Continue atorvastatin. We will follow with you. Thank you Dr. Polk, for providing me the opportunity in taking care of patient, Perry Trinh. Mely Chavarria MD
--- NOTE | 2017-05-30 15:24 | CP.PCM.PN ---
Subjective - Date & Time of Evaluation Date of Evaluation: 05/30/17 Time of Evaluation: 11:25 - Subjective Subjective: Had cystoscopy yesterday. Feels constipated. Still with abodminal pain, no fevers overnight. Objective - Vital Signs/Intake and Output Vital Signs (last 24 hours): Temp Pulse Resp BP Pulse Ox 97.6 F 60 18 156/75 H 97 05/30/17 08:00 05/30/17 08:00 05/30/17 08:00 05/30/17 08:00 05/30/17 08:00 Intake and Output: 05/30/17 05/30/17 06:59 18:59 Intake Total 720 Output Total 2500 Balance -1780 - Medications Medications: Current Medications Amiodarone HCl (Cordarone) 200 mg PO DAILY [facility] Last Admin: 05/29/17 10:57 Dose: 200 mg Atorvastatin Calcium (Lipitor) 10 mg PO DIN [facility] Last Admin: 05/29/17 18:51 Dose: 10 mg Digoxin (Lanoxin) 0.125 mg PO 1400 [facility] Last Admin: 05/29/17 20:33 Dose: Not Given Docusate Sodium (Colace) 100 mg PO BID [facility] Last Admin: 05/29/17 18:51 Dose: 100 mg Doxercalciferol (Hectorol) 0.5 mcg PO DAILY [facility] Last Admin: 05/29/17 10:57 Dose: 0.5 mcg Furosemide (Lasix) 40 mg PO DAILY [facility] Last Admin: 05/29/17 11:01 Dose: Not Given Lactic Acid (Lac-Hydrin 12% Cream (140 G)) 0 ea TOP BID [facility] Last Admin: 05/29/17 20:33 Dose: 1 applic Levalbuterol HCl (Xopenex) 0.63 mg IH [id number] [facility] Last Admin: 05/30/17 07:07 Dose: 0.63 mg Levothyroxine Sodium (Synthroid) 100 mcg PO 0600 [facility] Last Admin: 05/30/17 07:58 Dose: 100 mcg Metoclopramide HCl (Reglan) 10 mg IV ONCE PRN PRN Reason: Nausea/Vomiting Montelukast Sodium (Singulair) 10 mg PO DAILY [facility] Last Admin: 05/29/17 10:57 Dose: 10 mg Morphine Sulfate (Morphine) 4 mg IVP Q4H PRN PRN Reason: Pain, severe (8-10) Last Admin: 05/29/17 11:01 Dose: 4 mg Ondansetron HCl (Zofran Inj) 4 mg IVP Q4H PRN PRN Reason: Nausea/Vomiting Pantoprazole Sodium (Protonix Ec Tab) 40 mg PO 0600 [facility] Last Admin: 05/30/17 07:58 Dose: 40 mg Phenazopyridine HCl (Pyridium) 200 mg PO Q8 [facility] Last Admin: 05/30/17 07:58 Dose: 200 mg Polyethylene Glycol (Miralax) 17 gm PO BID [facility] Last Admin: 05/29/17 18:51 Dose: 17 gm Prednisone (Prednisone Tab) 10 mg PO DAILY [facility] Last Admin: 05/29/17 10:56 Dose: 10 mg Sodium Phosphate (Fleet Enema) 135 ml RC Q8 PRN PRN Reason: Constipation Tramadol HCl (Ultram) 50 mg PO TID PRN PRN Reason: Pain Last Admin: 05/28/17 05:21 Dose: 50 mg - Labs Labs: 05/30/17 08:50 05/30/17 08:50 PT 11.7 Seconds (9.9-11.8) 05/23/17 10:00 INR 1.08 (0.93-1.08) 05/23/17 10:00 APTT 26.3 Seconds (23.7-30.8) 05/23/17 10:00 - Constitutional Appears: Non-toxic, No Acute Distress - Head Exam Head Exam: NORMAL INSPECTION - ENT Exam ENT Exam: Mucous Membranes Moist - Neck Exam Neck Exam: absent: Lymphadenopathy, Meningismus - Respiratory Exam Respiratory Exam: Decreased Breath Sounds - Cardiovascular Exam Cardiovascular Exam: +S1, +S2 - GI/Abdominal Exam GI & Abdominal Exam: Soft, Tenderness (mild, lower portions). absent: Distended , Firm, Guarding, Rigid, Mass, Rebound Assessment and Plan - Assessment and Plan (Free Text) Plan: Assessment Systemic Inflammatory Response Syndrome in a patient who had hematuria S/P cystoscopy and irrigation of the bladder, with sepsis from UTI with Carbapenem- resistant Klebsiella S/P lower urinary tract infection in a patient with indwelling Avendano catheter growing Carbapenem-resistant Klebsiella history of right foot necrotic ulcer with surrounding cellulitis UTI with Enterococcus and Klebsiella chronic renal failure history of DVT DM metastatic Prostate CA history of Enterococcus UTI chronic atrial fibrillation S/P pacemaker and ICD placement Plan continue Avycaz day 6 - should target 10 days of antibiotics will continue to monitor clinically
[2017-05-30] MEDS: Digoxin 125 mcg (0.125 mg) Tab PO SCH (16:34)
--- NOTE | 2017-05-30 16:39 | PN ---
SUBJECTIVE: The patient is currently seen on 5R, lying supine in bed. He remains on continuous bladder irrigation with blood-tinged urine. He remains on IV antibiotics for his resistant urinary tract infection. MEDICATIONS: Medications are reviewed. The patient is on ceftazidime/avibactam, Colace, Cordarone, Fleet enema, Hectorol, Lac-Hydrin, Lanoxin, Lasix, Lipitor, Miralax, morphine, prednisone, Protonix, Pyridium, Reglan, Singulair, Synthroid, Ultram, Xopenex and Zofran. OBJECTIVE: INTAKE/OUTPUT: Intake 1720 and output 3400. VITAL SIGNS: Blood pressure 123/58, temperature 97.6, pulse 60 with a respiratory rate of 18. HEENT: Normocephalic, atraumatic. Conjunctivae pale. Sclerae are nonicteric. NECK: Supple. No neck vein distention. CHEST: Scattered rhonchi. No rales or wheezing. CARDIOVASCULAR: Shows regular rate and rhythm, AICD. No audible murmurs, rubs or gallops. ABDOMEN: Soft. Bowel sounds normal. No rebound or guarding. No masses. EXTREMITIES: 1+ to 2+ pitting edema of his lower extremities bilaterally. No cyanosis, no clubbing. Diminished lower extremity pulses secondary to edema. LABORATORY DATA AND IMAGING: White blood cell count 13.1, hemoglobin 9.0 and platelets count of 249,000. Chemistries; sodium 135 with a potassium of 4.0, chloride 103 with CO2 of 26, BUN is 20 with a creatinine of 0.9, glucose is 158. Calcium is 6.5 with an albumin of 2.4, corrected calcium is 7.7. Last phosphorus level was 4.0, magnesium is 2.1. Mild elevation of his ALT and alkaline phosphatase. Microbiology; repeat urine 05/26 showed less than 10,000 gram-negative rods. Initial urine cultures are positive for Klebsiella pneumoniae. ASSESSMENT: 1. Status post acute renal failure, status post nonfunctioning Avendano catheter with clot, status post bladder irrigation. Once again, the patient is on bladder irrigation. 2. History of metastatic prostate cancer. 3. History of hypertension, blood pressure controlled. 4. History of chronic kidney disease stage I/II, currently stable, creatinine is down to 0.9. 5. History of atherosclerotic heart disease, status post coronary artery bypass graft, status post percutaneous transluminal coronary angioplasty with automatic implantable cardioverter-defibrillator, all stable. 6. History of chronic obstructive pulmonary disease, stable on medical therapy. 7. Hypothyroidism, stable on thyroid replacement therapy. 8. Klebsiella urinary tract infection, resistant to multiple drugs, the patient remains on IV antibiotic therapy. 9. Hypocalcemia, corrected calcium level is 7.7. I will start the patient on calcium supplements and check phosphorus level. PLAN: 1. Continue to monitor accurate I's and O's. 2. Continue bladder irrigation as per urology. 3. Complete course of IV antibiotics therapy. 4. Monitor labs on a routine basis. 5. Check vitamin D level, the patient is on vitamin D supplements. 6. Close renal followup during hospitalization. Choco White MD
[2017-05-31] MEDS: Levalbuterol 0.63 MG/3 ML Inhal Soln UD IH SCH ×4 (01:45→21:55)
[2017-05-31] MEDS: Levothyroxine 100 MCG TAB PO SCH (05:28)
[2017-05-31] MEDS: Pantoprazole 40 mg EC Tab PO SCH (05:28)
[2017-05-31 06:01] LABS: ALB/GLOB RATIO 1.2 (1.1-1.8); ALBUMIN 2.7 g/dL (3.0-4.8); ALT/SGPT 63 U/L (7-56); AST/SGOT 49 U/L (15-59); BLOOD UREA NITROGEN 33 mg/dL (7-21); CALCIUM 7.9 mg/dL (8.4-10.5); GFR AFRICAN-AMERICAN > 60; GFR NON-AFRICAN AMERICAN 57; MAGNESIUM 2.4 mg/dL (1.7-2.2)
[2017-05-31 06:18] LABS: HEMOGLOBIN 9.4 g/dL (14.0-18.0); MEAN CELL VOLUME 88.8 fl (80.0-105.0); MEAN CORPUSCULAR HEMOGLOBIN 27.7 pg (25.0-35.0); MEAN CORPUSCULAR HGB CONC 31.2 g/dl (31.0-37.0); MEAN PLATELET VOLUME 9.4 fl (7.0-11.0); RBC 3.39 10^6/uL (3.5-6.1); RED CELL DISTRIBUTION WIDTH 15.9 % (11.5-14.5); WHITE BLOOD COUNT 12.8 10^3/ul (4.5-11.0)
--- NOTE | 2017-05-31 08:16 | PQF SEPSIS ---
This form is a permanent part of the medical record Dr. Marcus, Dr. Ortiz has been documenting sepsis from UTI. Do you concur with this diagnosis and was it POA? Clarification of your documentation is requested to better reflect the severity of illness and intensity of treatment of your patient. Indicators present [x] Temp < 96.8 or > 100.4 [x] WBC count > 12,000/mm3 or <000/mm3 or 10% immature neutrophils [] Heart Rate > 90 [] Respiratory Rate > 20 [] Fever or hypothermia [] Chills [] Positive blood cultures [] Hypotension [] Metabolic acidosis (Elevated lactate level, anion gap or reduced blood pH) [] Acute confusion /Altered Mental Status [] Shock [] Other: [] Location in the medical record that reflects the above clinical findings: [] Treatment Provided: After cystoscopy, patient developed sepsis with high white count and was then started on antibiotics. PHYSICIAN'S RESPONSE Based on your medical judgment of the clinical indicators outlined above, are you treating this patient for a known or suspected: [x] Sepsis / Septicemia Please specify organism if known [] [] SIRS (Systemic Inflammatory Response Syndrome) [] Severe Sepsis (Sepsis with Associated Organ Dysfunction) [] Fever of Unknown Origin [] Other, please indicate: [] [] If Unable to Determine, please check the box, sign and date. Present On Admission (POA) Indicator: [] Present at the time of admission [x] Not present at the time of admission [] Clinically Undetermined In responding to this query, please exercise your independent professional judgment. The fact that a question is asked does not imply that any particular answer is desired or expected. Thank you for your clarification on this documentation. If you have any questions please call:[ ] * Thank you, [ ]Kal Singletary [facility], #[id number] data management associate ANNABELLA
[2017-05-31] MEDS ORDERED: Calcium Chloride 1000 mg/10 ml Syringe IV ONE ×2 (08:22)
[2017-05-31] MEDS: Insulin Human NPH/Reg 70/30 Vial(3 ml) SC SCH ×4 (08:30→22:51)
--- NOTE | 2017-05-31 09:50 | CP.PCM.PN ---
<Claudia Armendariz - Last Filed: 05/31/17 09:50> Subjective - Date & Time of Evaluation Date of Evaluation: 05/31/17 Time of Evaluation: 09:00 - Subjective Subjective: S&E at bedside, chart reviewed, no acute overnight events reported. He had multiple BM with relief. Rectal discomfort has improved, no bleeding. Abdominal pain present but better. No N/V. Urine bag orange, on Pyridium, tolerating oral intake, Objective - Vital Signs/Intake and Output Vital Signs (last 24 hours): Temp Pulse Resp BP Pulse Ox 97.6 F 66 18 165/81 H 95 05/31/17 08:00 05/31/17 08:00 05/31/17 08:00 05/31/17 08:00 05/31/17 08:00 Intake and Output: 05/31/17 05/31/17 06:59 18:59 Intake Total 540 Output Total 2800 Balance -2260 - Medications Medications: Current Medications Amiodarone HCl (Cordarone) 200 mg PO DAILY [facility] Last Admin: 05/30/17 12:07 Dose: 200 mg Atorvastatin Calcium (Lipitor) 10 mg PO DIN [facility] Last Admin: 05/30/17 16:35 Dose: 10 mg Calcium Carbonate (Oscal) 500 mg PO TID [facility] Last Admin: 05/30/17 19:51 Dose: 500 mg Digoxin (Lanoxin) 0.125 mg PO 1400 [facility] Last Admin: 05/30/17 16:34 Dose: 0.125 mg Docusate Sodium (Colace) 100 mg PO BID [facility] Last Admin: 05/30/17 19:51 Dose: 100 mg Doxercalciferol (Hectorol) 0.5 mcg PO DAILY [facility] Last Admin: 05/30/17 12:08 Dose: 0.5 mcg Furosemide (Lasix) 40 mg PO BID [facility] Ceftazidime/Avibactam 2.5 gm/ (Sodium Chloride) 100 mls @ 50 mls/hr IVPB Q8 [facility] Last Admin: 05/30/17 21:50 Dose: 50 mls/hr Lactic Acid (Lac-Hydrin 12% Cream (140 G)) 0 ea TOP BID [facility] Last Admin: 05/30/17 19:53 Dose: 1 applic Levalbuterol HCl (Xopenex) 0.63 mg IH [id number] [facility] Last Admin: 05/31/17 07:24 Dose: 0.63 mg Levothyroxine Sodium (Synthroid) 100 mcg PO 0600 [facility] Last Admin: 05/31/17 05:28 Dose: 100 mcg Metoclopramide HCl (Reglan) 10 mg IV ONCE PRN PRN Reason: Nausea/Vomiting Montelukast Sodium (Singulair) 10 mg PO DAILY [facility] Last Admin: 05/30/17 12:08 Dose: 10 mg Morphine Sulfate (Morphine) 4 mg IVP Q4H PRN PRN Reason: Pain, severe (8-10) Last Admin: 05/29/17 11:01 Dose: 4 mg Ondansetron HCl (Zofran Inj) 4 mg IVP Q4H PRN PRN Reason: Nausea/Vomiting Pantoprazole Sodium (Protonix Ec Tab) 40 mg PO 0600 [facility] Last Admin: 05/31/17 05:28 Dose: 40 mg Phenazopyridine HCl (Pyridium) 200 mg PO Q8 [facility] Last Admin: 05/31/17 05:28 Dose: 200 mg Polyethylene Glycol (Miralax) 17 gm PO BID [facility] Last Admin: 05/30/17 19:52 Dose: 17 gm Prednisone (Prednisone Tab) 10 mg PO DAILY [facility] Last Admin: 05/30/17 12:08 Dose: 10 mg Sodium Phosphate (Fleet Enema) 135 ml RC Q8 PRN PRN Reason: Constipation Tramadol HCl (Ultram) 50 mg PO TID PRN PRN Reason: Pain Last Admin: 05/28/17 05:21 Dose: 50 mg - Labs Labs: 05/31/17 05:40 05/31/17 05:40 PT 11.7 Seconds (9.9-11.8) 05/23/17 10:00 INR 1.08 (0.93-1.08) 05/23/17 10:00 APTT 26.3 Seconds (23.7-30.8) 05/23/17 10:00 - Constitutional Appears: No Acute Distress - Head Exam Head Exam: NORMOCEPHALIC - Eye Exam Eye Exam: Normal appearance. absent: Scleral icterus - ENT Exam ENT Exam: Mucous Membranes Moist - Neck Exam Neck Exam: Normal Inspection - Respiratory Exam Respiratory Exam: Decreased Breath Sounds, NORMAL BREATHING PATTERN. absent: Rales, Rhonchi, Wheezes, Respiratory Distress - Cardiovascular Exam Cardiovascular Exam: +S1, +S2 - GI/Abdominal Exam GI & Abdominal Exam: Soft, Normal Bowel Sounds. absent: Guarding, Tenderness, Rebound - Extremities Exam Extremities Exam: Normal Capillary Refill, Pedal Edema. absent: Calf Tenderness - Neurological Exam Neurological Exam: Alert, Awake, Oriented x3 - Skin Skin Exam: Dry, Warm Assessment and Plan - Assessment and Plan (Free Text) Assessment: ASSESSMENT: Abdominal Pain Stage IV Prostate Cancer, s/p Cystoscopy w/CBI and yesterday s/p Bladder Fulguration Abdominal & Pelvic lymphadenopathy Chronic Constipation Gallstones DM CAD COPD PLAN: continue Miralax BID continue Colace On Pyridium diet as tolerated monitor electrolytes, H/H as per urology/oncology FU stool cdiff Seen and discussed w/ Dr. Bal. <Fredi Bal V - Last Filed: 05/31/17 22:21> Objective - Vital Signs/Intake and Output Vital Signs (last 24 hours): Temp Pulse Resp BP Pulse Ox 97.8 F 67 18 151/64 H 93 L 05/31/17 16:30 05/31/17 16:30 05/31/17 16:30 05/31/17 17:40 05/31/17 16:30 Intake and Output: 05/31/17 06/01/17 18:59 06:59 Intake Total 1020 Output Total 400 Balance 620 - Medications Medications: Current Medications Amiodarone HCl (Cordarone) 200 mg PO DAILY [facility] Last Admin: 05/31/17 11:22 Dose: 200 mg Atorvastatin Calcium (Lipitor) 10 mg PO DIN [facility] Last Admin: 05/31/17 17:39 Dose: 10 mg Calcium Carbonate (Oscal) 500 mg PO TID [facility] Last Admin: 05/31/17 17:40 Dose: 500 mg Digoxin (Lanoxin) 0.125 mg PO 1400 [facility] Last Admin: 05/31/17 14:28 Dose: 0.125 mg Docusate Sodium (Colace) 100 mg PO BID [facility] Last Admin: 05/31/17 17:40 Dose: Not Given Doxercalciferol (Hectorol) 0.5 mcg PO DAILY [facility] Last Admin: 05/31/17 11:22 Dose: 0.5 mcg Furosemide (Lasix) 40 mg PO BID [facility] Last Admin: 05/31/17 17:40 Dose: 40 mg Ceftazidime/Avibactam 2.5 gm/ (Sodium Chloride) 100 mls @ 50 mls/hr IVPB Q8 [facility] Last Admin: 05/31/17 14:30 Dose: 50 mls/hr Insulin Human Regular (Humulin R) 10 units IVP STAT STA Stop: 05/31/17 22:09 Lactic Acid (Lac-Hydrin 12% Cream (140 G)) 0 ea TOP BID [facility] Last Admin: 05/31/17 17:41 Dose: 1 applic Levalbuterol HCl (Xopenex) 0.63 mg IH [id number] [facility] Last Admin: 05/31/17 21:55 Dose: 0.63 mg Levothyroxine Sodium (Synthroid) 100 mcg PO 0600 [facility] Last Admin: 05/31/17 05:28 Dose: 100 mcg Metoclopramide HCl (Reglan) 10 mg IV ONCE PRN PRN Reason: Nausea/Vomiting Montelukast Sodium (Singulair) 10 mg PO DAILY [facility] Last Admin: 05/31/17 11:22 Dose: 10 mg Morphine Sulfate (Morphine) 4 mg IVP Q4H PRN PRN Reason: Pain, severe (8-10) Last Admin: 05/29/17 11:01 Dose: 4 mg Ondansetron HCl (Zofran Inj) 4 mg IVP Q4H PRN PRN Reason: Nausea/Vomiting Pantoprazole Sodium (Protonix Ec Tab) 40 mg PO 0600 [facility] Last Admin: 05/31/17 05:28 Dose: 40 mg Phenazopyridine HCl (Pyridium) 200 mg PO Q8 [facility] Last Admin: 05/31/17 14:27 Dose: 200 mg Polyethylene Glycol (Miralax) 17 gm PO BID [facility] Last Admin: 05/31/17 17:41 Dose: Not Given Prednisone (Prednisone Tab) 10 mg PO DAILY [facility] Last Admin: 05/31/17 11:22 Dose: 10 mg Sodium Phosphate (Fleet Enema) 135 ml RC Q8 PRN PRN Reason: Constipation Tramadol HCl (Ultram) 50 mg PO TID PRN PRN Reason: Pain Last Admin: 05/28/17 05:21 Dose: 50 mg Vancomycin HCl (Vancocin 25 Mg/Ml (Oral Use)) 125 mg PO QID [facility] PRN Reason: Protocol Last Admin: 05/31/17 18:17 Dose: 125 mg - Labs Labs: 05/31/17 05:40 05/31/17 05:40 PT 11.7 Seconds (9.9-11.8) 05/23/17 10:00 INR 1.08 (0.93-1.08) 05/23/17 10:00 APTT 26.3 Seconds (23.7-30.8) 05/23/17 10:00 Attending/Attestation - Attestation I have personally seen and examined this patient.: Yes I have fully participated in the care of the patient.: Yes I have reviewed all pertinent clinical information, including history, physical exam and plan: Yes Notes (Text): The patient had a few bowel movements today stools for C. difficile antigen positive Patient is also on prednisone and IV antibiotics .patient has urinary tract infection slightly better on examination abdomen soft and mild tenderness on deep palpation in the suprapubic area patient is on by mouth vancomycin and continue the Thank you very much for allowing us to participate in the care of the patient
[2017-05-31] MEDS: Ammonium Lactate 12% Cream (140 g) TOP SCH ×2 (11:25→17:41)
[2017-05-31] MEDS: POLYETHYLENE GLYCOL 3350 17 GM/Dose PACKET PO SCH ×2 (11:25→17:41)
--- NOTE | 2017-05-31 11:56 | PN ---
SUBJECTIVE: The patient is an 87-year-old white male. The patient is admitted with hematuria. The patient has a history of prostate carcinoma with metastatic disease. The patient has urinary retention, having indwelling Avendano catheter. The patient was treated by cystoscopy examination and laser treatment of the bladder wall. The patient's past history is significant for congestive heart failure, diabetes mellitus. The patient has a history of hypothyroidism, chronic obstructive lung disease, and osteoarthritis. PHYSICAL EXAMINATION: VITAL SIGNS: This morning, the pulse is 71, blood pressure 140/70, respirations 19, and O2 saturation is 95% on room air. HEENT: Head is normocephalic. NECK: Thyroid is not enlarged. JVP flat. Carotid pulses are present. LUNGS: Trachea is central. Breath sounds are vesicular. Basal crepitations noted. HEART: Normal sinus rhythm, S1 and S2 present. Cardiac pacemaker is functional on demand. ABDOMEN: Soft. Tenderness in the abdomen, diffuse. No localizing signs. CENTRAL NERVOUS SYSTEM: No focal deficits. MEDICATIONS: The patient's medications will be continued, adjustments are made on the Lasix. She will be getting 40 mg twice a day, we will bathe the patient daily, and we will also continue the current management with all other medications for his congestive heart failure and coronary artery disease. Insulin coverage for diabetes. PLAN: The patient is on a heart healthy diabetic diet. His overall prognosis is guarded. Condition is improving. The patient will be discharged and transferred to transitional care unit. Continued antibiotic treatment will be given and also the patient needs physical therapy for steady gait and balance. Giselle Polk MD
[2017-05-31] MEDS: Digoxin 125 mcg (0.125 mg) Tab PO SCH (14:28)
--- NOTE | 2017-05-31 14:48 | CP.PCM.PN ---
Subjective - Date & Time of Evaluation Date of Evaluation: 05/31/17 Time of Evaluation: 10:00 - Subjective Subjective: Heme/onc note for Dr Carballo: Pt was seen and examined at bedside. No acute events overnight. Bladder irrigation discontinued. Complains of abd pain and some constipation. No hematuria. Denies any buckner, dizziness, f/c, n/v/d, sob, cp. Objective - Vital Signs/Intake and Output Vital Signs (last 24 hours): Temp Pulse Resp BP Pulse Ox 97.6 F 66 18 165/81 H 95 05/31/17 08:00 05/31/17 11:22 05/31/17 08:00 05/31/17 11:23 05/31/17 08:00 Intake and Output: 05/31/17 05/31/17 06:59 18:59 Intake Total 540 Output Total 2800 Balance -2260 - Medications Medications: Current Medications Amiodarone HCl (Cordarone) 200 mg PO DAILY [facility] Last Admin: 05/31/17 11:22 Dose: 200 mg Atorvastatin Calcium (Lipitor) 10 mg PO DIN [facility] Last Admin: 05/30/17 16:35 Dose: 10 mg Calcium Carbonate (Oscal) 500 mg PO TID [facility] Last Admin: 05/31/17 14:28 Dose: 500 mg Digoxin (Lanoxin) 0.125 mg PO 1400 [facility] Last Admin: 05/31/17 14:28 Dose: 0.125 mg Docusate Sodium (Colace) 100 mg PO BID [facility] Last Admin: 05/31/17 11:23 Dose: 100 mg Doxercalciferol (Hectorol) 0.5 mcg PO DAILY [facility] Last Admin: 05/31/17 11:22 Dose: 0.5 mcg Furosemide (Lasix) 40 mg PO BID [facility] Last Admin: 05/31/17 11:23 Dose: 40 mg Ceftazidime/Avibactam 2.5 gm/ (Sodium Chloride) 100 mls @ 50 mls/hr IVPB Q8 [facility] Last Admin: 05/31/17 14:30 Dose: 50 mls/hr Lactic Acid (Lac-Hydrin 12% Cream (140 G)) 0 ea TOP BID [facility] Last Admin: 05/31/17 11:25 Dose: 1 applic Levalbuterol HCl (Xopenex) 0.63 mg IH [id number] [facility] Last Admin: 05/31/17 13:43 Dose: 0.63 mg Levothyroxine Sodium (Synthroid) 100 mcg PO 0600 [facility] Last Admin: 05/31/17 05:28 Dose: 100 mcg Metoclopramide HCl (Reglan) 10 mg IV ONCE PRN PRN Reason: Nausea/Vomiting Montelukast Sodium (Singulair) 10 mg PO DAILY [facility] Last Admin: 05/31/17 11:22 Dose: 10 mg Morphine Sulfate (Morphine) 4 mg IVP Q4H PRN PRN Reason: Pain, severe (8-10) Last Admin: 05/29/17 11:01 Dose: 4 mg Ondansetron HCl (Zofran Inj) 4 mg IVP Q4H PRN PRN Reason: Nausea/Vomiting Pantoprazole Sodium (Protonix Ec Tab) 40 mg PO 0600 [facility] Last Admin: 05/31/17 05:28 Dose: 40 mg Phenazopyridine HCl (Pyridium) 200 mg PO Q8 [facility] Last Admin: 05/31/17 14:27 Dose: 200 mg Polyethylene Glycol (Miralax) 17 gm PO BID [facility] Last Admin: 05/31/17 11:25 Dose: 17 gm Prednisone (Prednisone Tab) 10 mg PO DAILY [facility] Last Admin: 05/31/17 11:22 Dose: 10 mg Sodium Phosphate (Fleet Enema) 135 ml RC Q8 PRN PRN Reason: Constipation Tramadol HCl (Ultram) 50 mg PO TID PRN PRN Reason: Pain Last Admin: 05/28/17 05:21 Dose: 50 mg - Labs Labs: 05/31/17 05:40 05/31/17 05:40 PT 11.7 Seconds (9.9-11.8) 05/23/17 10:00 INR 1.08 (0.93-1.08) 05/23/17 10:00 APTT 26.3 Seconds (23.7-30.8) 05/23/17 10:00 - Constitutional Appears: No Acute Distress - Head Exam Head Exam: ATRAUMATIC, NORMAL INSPECTION, NORMOCEPHALIC - Eye Exam Eye Exam: EOMI, Normal appearance, PERRL Pupil Exam: NORMAL ACCOMODATION, PERRL - ENT Exam ENT Exam: Mucous Membranes Moist, Normal Exam - Neck Exam Neck Exam: Full ROM, Normal Inspection. absent: Lymphadenopathy - Respiratory Exam Respiratory Exam: Clear to Ausculation Bilateral, NORMAL BREATHING PATTERN. absent: Wheezes - Cardiovascular Exam Cardiovascular Exam: REGULAR RHYTHM, RRR, +S1, +S2. absent: Murmur - GI/Abdominal Exam GI & Abdominal Exam: Soft, Normal Bowel Sounds. absent: Tenderness - Extremities Exam Extremities Exam: Full ROM, Normal Capillary Refill, Normal Inspection. absent : Joint Swelling, Pedal Edema - Back Exam Back Exam: NORMAL INSPECTION - Neurological Exam Neurological Exam: Alert, Awake, Oriented x3 - Psychiatric Exam Psychiatric exam: Normal Affect, Normal Mood - Skin Skin Exam: Dry, Intact, Normal Color, Warm Assessment and Plan - Assessment and Plan (Free Text) Assessment: 87 M with history of stage 4 castrate resistant prostate cancer, chronic heart failure, COPD, DMII, coronary artery disease, hypothyroidism, and arthritis who was admitted for hematuria and blood clots. Pt is s/p cystoscopy with evacuation of clots, cath replacement, with continuous bladder irrigation. s/p bladder fulguration POD2. Plan: - Bladder irrigation discontinued - To cont Zytiga once home and Cytotoxin as outpt upon insurance approval - ID consulted - on Ceftazadine target of 10 days, started on Vanco PO 125mg Q6H for C.diff antigen positive - CT abdomen & pelvis with no contrast for abd pain - acute cystitis correlate with urinalysis, scheleortic mets, retroperitoneal and pelvic lymphadenopathy, small bowel mesenteric lymphadenopathy. - Cont with Pyridium - Will f/u with outpatient pharmacy regarding starting Amitiza for constipation - Prednisone 10mg daily (was previously on Zytiga but not tolerated) - Nephro Consult - cont current management monitor I and O - Cardio consult - cont current meds - cardiology recs- cont current therapy - GI and DVT ppx - PT and OT Case and plan was seen, reviewed and discussed in detail with Dr Carballo.
--- NOTE | 2017-05-31 17:20 | PN ---
DATE: 05/31/2017 SUBJECTIVE: The patient is seen lying on bed. He is awake and alert. He complains of swelling of his hands. He has 3+ edema of his lower extremities. PHYSICAL EXAMINATION: GENERAL: Obese, elderly male lying in bed. VITAL SIGNS: Blood pressure 165/81, heart rate 66, respiratory rate 18, temperature 97.6. HEENT: Normocephalic, atraumatic. NECK: Supple, no JVD. Lungs: Bilateral equal air entry, bilateral rhonchi, basilar rales. CARDIAC: S1 and S2. Regular rate and rhythm. No murmur, no rub. ABDOMEN: Obese, distended, soft, nontender, bowel sounds present. EXTREMITIES: 2+ pitting edema of the lower extremities, 1+ pitting edema of the upper extremities. INTAKE AND OUTPUT: 1540/2800. LABORATORY DATA: WBC 12.8, hemoglobin 9.4, hematocrit 30, platelets 204. Sodium 135, potassium 4.5, chloride 99, CO2 31, BUN 33, creatinine 1.2, glucose 96, calcium 7.9, phosphorus 3.1, magnesium 2.4, albumin 2.7, corrected calcium is 8.8, vitamin D 18.5. Urine culture Gram-negative rods from 05/26/2017. CURRENT MEDICATIONS: Ceftazidime/tazobactam, Colace, Cordarone, Hectorol, Lanoxin, Lasix 40 b.i.d., digoxin, Lipitor, MiraLax, morphine, Os-Pedro, prednisone, Protonix, Pyridium, Reglan, Singulair, Synthroid, tramadol, Xopenex, Zofran. ASSESSMENT: 1. Resolved acute kidney injury, underlying chronic disease stage III. 2. Prostate cancer with bladder wall infiltration? 3. Recurrent hematuria, status post my the bladder fulguration. 4. Anemia. 5. Severe edema. 6. Congestive heart failure. PLAN: 1. Lasix 80 mg IV push x1 dose now. 2. Continue Lasix 40 b.i.d. 3. Monitor urine output closely. 4. Continue other management. Marianne Lozano MD
--- NOTE | 2017-05-31 18:08 | CP.PCM.PN ---
Subjective - Date & Time of Evaluation Date of Evaluation: 05/31/17 Time of Evaluation: 11:50 - Subjective Subjective: Patient had loose bowel movement. No fevers overnight. Objective - Vital Signs/Intake and Output Vital Signs (last 24 hours): Temp Pulse Resp BP Pulse Ox 97.8 F 67 18 151/64 H 93 L 05/31/17 16:30 05/31/17 16:30 05/31/17 16:30 05/31/17 17:40 05/31/17 16:30 Intake and Output: 05/31/17 05/31/17 06:59 18:59 Intake Total 540 1020 Output Total 2800 400 Balance -2260 620 - Medications Medications: Current Medications Amiodarone HCl (Cordarone) 200 mg PO DAILY [facility] Last Admin: 05/31/17 11:22 Dose: 200 mg Atorvastatin Calcium (Lipitor) 10 mg PO DIN [facility] Last Admin: 05/31/17 17:39 Dose: 10 mg Calcium Carbonate (Oscal) 500 mg PO TID [facility] Last Admin: 05/31/17 17:40 Dose: 500 mg Digoxin (Lanoxin) 0.125 mg PO 1400 [facility] Last Admin: 05/31/17 14:28 Dose: 0.125 mg Docusate Sodium (Colace) 100 mg PO BID [facility] Last Admin: 05/31/17 17:40 Dose: Not Given Doxercalciferol (Hectorol) 0.5 mcg PO DAILY [facility] Last Admin: 05/31/17 11:22 Dose: 0.5 mcg Furosemide (Lasix) 40 mg PO BID [facility] Last Admin: 05/31/17 17:40 Dose: 40 mg Ceftazidime/Avibactam 2.5 gm/ (Sodium Chloride) 100 mls @ 50 mls/hr IVPB Q8 [facility] Last Admin: 05/31/17 14:30 Dose: 50 mls/hr Lactic Acid (Lac-Hydrin 12% Cream (140 G)) 0 ea TOP BID [facility] Last Admin: 05/31/17 17:41 Dose: 1 applic Levalbuterol HCl (Xopenex) 0.63 mg IH [id number] [facility] Last Admin: 05/31/17 13:43 Dose: 0.63 mg Levothyroxine Sodium (Synthroid) 100 mcg PO 0600 [facility] Last Admin: 05/31/17 05:28 Dose: 100 mcg Metoclopramide HCl (Reglan) 10 mg IV ONCE PRN PRN Reason: Nausea/Vomiting Montelukast Sodium (Singulair) 10 mg PO DAILY [facility] Last Admin: 05/31/17 11:22 Dose: 10 mg Morphine Sulfate (Morphine) 4 mg IVP Q4H PRN PRN Reason: Pain, severe (8-10) Last Admin: 05/29/17 11:01 Dose: 4 mg Ondansetron HCl (Zofran Inj) 4 mg IVP Q4H PRN PRN Reason: Nausea/Vomiting Pantoprazole Sodium (Protonix Ec Tab) 40 mg PO 0600 [facility] Last Admin: 05/31/17 05:28 Dose: 40 mg Phenazopyridine HCl (Pyridium) 200 mg PO Q8 [facility] Last Admin: 05/31/17 14:27 Dose: 200 mg Polyethylene Glycol (Miralax) 17 gm PO BID [facility] Last Admin: 05/31/17 17:41 Dose: Not Given Prednisone (Prednisone Tab) 10 mg PO DAILY [facility] Last Admin: 05/31/17 11:22 Dose: 10 mg Sodium Phosphate (Fleet Enema) 135 ml RC Q8 PRN PRN Reason: Constipation Tramadol HCl (Ultram) 50 mg PO TID PRN PRN Reason: Pain Last Admin: 05/28/17 05:21 Dose: 50 mg Vancomycin HCl (Vancocin 25 Mg/Ml (Oral Use)) 125 mg PO QID [facility] PRN Reason: Protocol - Labs Labs: 05/31/17 05:40 05/31/17 05:40 PT 11.7 Seconds (9.9-11.8) 05/23/17 10:00 INR 1.08 (0.93-1.08) 05/23/17 10:00 APTT 26.3 Seconds (23.7-30.8) 05/23/17 10:00 - Constitutional Appears: Non-toxic, No Acute Distress - Head Exam Head Exam: NORMAL INSPECTION - Respiratory Exam Respiratory Exam: Decreased Breath Sounds - Cardiovascular Exam Cardiovascular Exam: +S1, +S2 - GI/Abdominal Exam GI & Abdominal Exam: Soft. absent: Tenderness Assessment and Plan - Assessment and Plan (Free Text) Plan: Assessment Systemic Inflammatory Response Syndrome in a patient who had hematuria S/P cystoscopy and irrigation of the bladder, with sepsis from UTI with Carbapenem- resistant Klebsiella consider C. diff. associated diarrhea S/P lower urinary tract infection in a patient with indwelling Avendano catheter growing Carbapenem-resistant Klebsiella history of right foot necrotic ulcer with surrounding cellulitis UTI with Enterococcus and Klebsiella chronic renal failure history of DVT DM metastatic Prostate CA history of Enterococcus UTI chronic atrial fibrillation S/P pacemaker and ICD placement Plan continue Avycaz day 7 - should target 10 days of antibiotics will continue to monitor clinically
[2017-05-31] MEDS: Vancomycin 25 MG/ML PO SCH ×2 (18:17→22:53)
--- NOTE | 2017-05-31 19:18 | PN ---
DATE: 05/31/2017 LOCATION: The patient in room 578, bed 1. REASON FOR CONSULTATION: Followup with coronary artery disease. SUBJECTIVE: The patient denies any chest pain, shortness of breath, or palpitation. The patient lying flat in bed without any cardiac symptoms, still complained of pelvic area pain. PHYSICAL EXAMINATION: VITAL SIGNS: Blood pressure 165/81, yesterday's pressure was 143/71, respirations 18, pulse 66, and temperature 97.6. HEENT: Head is normocephalic. Eyes, pupils normal. Conjunctivae slightly pale. NECK: JVP low. Carotids equal. Thorax, AP diameter normal. LUNGS: Clear. CARDIOVASCULAR: S1 and S2. ABDOMEN: Soft. No organomegaly. Bowel sounds normal. EXTREMITIES: No clubbing. No cyanosis. LABORATORY DATA: WBC 12.8, hemoglobin 9.4, hematocrit 30.1, and platelet 204. Sodium 135, potassium 4.5, BUN 36, creatinine 1.2, and random glucose 96. AST 49, ALT 63, alkaline phosphate 144, total protein 5.0, which is low, albumin 2.7, which is low. DIAGNOSES: Coronary artery disease, status post bypass surgery, status post multiple angioplasty and stent insertion, status post mitral valve repair, history of prostate cancer with metastasis, indwelling Avendano catheter. On admission the patient's catheter was clogged. The patient on 05/29/2017 had cystoscopy and fulguration of prostate and bladder bleeding points, anemia, left ventricular dysfunction, automatic implantable cardioverter-defibrillator insertion, and history of gross hematuria. The patient is on IV antibiotics, amiodarone 200 mg daily, insulin as ordered, digoxin 0.125 p.o. daily, furosemide changed to 40 mg p.o. b.i.d., Lipitor 10 mg p.o. daily, Os-Pedro 500 mg p.o. t.i.d., prednisone 10 mg daily, Protonix 40 mg p.o. daily, Pyridium 200 mg q.8 hours, Synthroid 100 mcg p.o. daily, and Xopenex hand nebulizer therapy. We will continue present therapy and we will follow with you clinically cardiac status. Mohammad Walters, MD
--- NOTE | 2017-05-31 21:57 | PN ---
DATE: 05/31/2017 POSTOPERATIVE PROGRESS NOTE PHYSICAL EXAMINATION: GENERAL: The patient is in no acute distress. VITAL SIGNS: He is afebrile, temperature 97.8, blood pressure 151/64, respirations 18, and pulse of 67. ABDOMEN: Soft, nontender and nondistended. No rebound or guarding. GENITOURINARY: Phallus is normal. Avendano catheter in place. Draining clear urine on slow CBI. The patient tested positive for C. diff and he is being treated by infectious disease, currently on Fortaz. PLAN: Urologically, the plan will be to hold the patient's CBI as the urine is now clear. The patient needs to monitored closely and CBI needs to be restarted if he begins having hematuria again. If the patient is not having hematuria and has medically improved, we can consider possible transfer to nursing facility again. The patient is extremely difficult to manage given his frail status and recurrent bleeding from prostate cancer. He has been unable to tolerate any advanced prostate therapies given his poor cardiac condition. If the patient has recurrent episodes of bleeding, I will need to discuss cystotomy placement with him and his medical attending, Dr. Polk. Possibly a large caliber cystotomy would be better as the Avendano catheter and balloon would not be rubbing on the prostate and prostatic fossa, which appears to be the source of the bleeding. Hopefully, the patient will continue to improve with no recurrence in bleeding and we will be able to discharge him soon. Eddie Louise, MDDD: 05/31/2017 19:01:05
[2017-05-31] MEDS ORDERED: Insulin Regular 1 UNITS/0.01 ML ML IVP STA (22:08)
[2017-06-01] MEDS: Levalbuterol 0.63 MG/3 ML Inhal Soln UD IH SCH ×3 (03:05→13:31)
[2017-06-01] MEDS: Pantoprazole 40 mg EC Tab PO SCH (06:13)
[2017-06-01 07:08] LABS: HEMOGLOBIN 9.7 g/dL (14.0-18.0); MEAN CELL VOLUME 87.7 fl (80.0-105.0); MEAN CORPUSCULAR HGB CONC 30.8 g/dl (31.0-37.0); MEAN PLATELET VOLUME 9.4 fl (7.0-11.0); RBC 3.59 10^6/uL (3.5-6.1); RED CELL DISTRIBUTION WIDTH 15.8 % (11.5-14.5); WHITE BLOOD COUNT 12.2 10^3/ul (4.5-11.0)
[2017-06-01 07:13] LABS: ALB/GLOB RATIO 1.2 (1.1-1.8); ALBUMIN 2.9 g/dL (3.0-4.8); ALT/SGPT 60 U/L (7-56); AST/SGOT 57 U/L (15-59); BLOOD UREA NITROGEN 34 mg/dL (7-21); CALCIUM 8.2 mg/dL (8.4-10.5); GFR AFRICAN-AMERICAN > 60; GFR NON-AFRICAN AMERICAN 57
[2017-06-01] MEDS: Insulin Human NPH/Reg 70/30 Vial(3 ml) SC SCH ×2 (08:30→12:17)
[2017-06-01 10:15] VITALS: BP 152/69; PULSE 63; RESP 20; TEMP 97.5; O2SAT 96
[2017-06-01] MEDS: Ammonium Lactate 12% Cream (140 g) TOP SCH (10:35)
[2017-06-01] MEDS: POLYETHYLENE GLYCOL 3350 17 GM/Dose PACKET PO SCH (10:36)
[2017-06-01] MEDS: Levothyroxine 100 MCG TAB PO SCH (10:37)
[2017-06-01] MEDS: Vancomycin 25 MG/ML PO SCH ×2 (10:37→15:15)
--- NOTE | 2017-06-01 11:10 | CP.PCM.PN ---
<Claudia Armendariz - Last Filed: 06/01/17 11:09> Subjective - Date & Time of Evaluation Date of Evaluation: 06/01/17 Time of Evaluation: 09:00 - Subjective Subjective: Seen and examined at the bedside this morning, chart reviewed. Patient denies nausea, vomiting, abdominal pain. patient continues to have multiple BM, w/ relief denies rectal pain or bleeding. Tolerating oral intake. Patient positive for C. difficile, started on vancomycin by mouth yesterday. no acute overnight events reported. Objective - Vital Signs/Intake and Output Vital Signs (last 24 hours): Temp Pulse Resp BP Pulse Ox 97.5 F L 63 20 152/69 H 96 06/01/17 08:00 06/01/17 08:00 06/01/17 08:00 06/01/17 08:00 06/01/17 08:00 Intake and Output: 06/01/17 06/01/17 06:59 18:59 Intake Total 1020 Output Total 5952 Balance -4932 - Medications Medications: Current Medications Amiodarone HCl (Cordarone) 200 mg PO DAILY [facility] Last Admin: 05/31/17 11:22 Dose: 200 mg Atorvastatin Calcium (Lipitor) 10 mg PO DIN [facility] Last Admin: 05/31/17 17:39 Dose: 10 mg Calcium Carbonate (Oscal) 500 mg PO TID [facility] Last Admin: 05/31/17 17:40 Dose: 500 mg Digoxin (Lanoxin) 0.125 mg PO 1400 [facility] Last Admin: 05/31/17 14:28 Dose: 0.125 mg Docusate Sodium (Colace) 100 mg PO BID [facility] Last Admin: 05/31/17 17:40 Dose: Not Given Doxercalciferol (Hectorol) 0.5 mcg PO DAILY [facility] Last Admin: 05/31/17 11:22 Dose: 0.5 mcg Furosemide (Lasix) 40 mg PO BID [facility] Last Admin: 05/31/17 17:40 Dose: 40 mg Ceftazidime/Avibactam 2.5 gm/ (Sodium Chloride) 100 mls @ 50 mls/hr IVPB Q8 [facility] Last Admin: 06/01/17 06:14 Dose: 50 mls/hr Lactic Acid (Lac-Hydrin 12% Cream (140 G)) 0 ea TOP BID [facility] Last Admin: 05/31/17 17:41 Dose: 1 applic Levalbuterol HCl (Xopenex) 0.63 mg IH [id number] [facility] Last Admin: 06/01/17 08:17 Dose: 0.63 mg Levothyroxine Sodium (Synthroid) 100 mcg PO 0600 [facility] Last Admin: 05/31/17 05:28 Dose: 100 mcg Metoclopramide HCl (Reglan) 10 mg IV ONCE PRN PRN Reason: Nausea/Vomiting Montelukast Sodium (Singulair) 10 mg PO DAILY [facility] Last Admin: 05/31/17 11:22 Dose: 10 mg Morphine Sulfate (Morphine) 4 mg IVP Q4H PRN PRN Reason: Pain, severe (8-10) Last Admin: 05/29/17 11:01 Dose: 4 mg Ondansetron HCl (Zofran Inj) 4 mg IVP Q4H PRN PRN Reason: Nausea/Vomiting Pantoprazole Sodium (Protonix Ec Tab) 40 mg PO 0600 [facility] Last Admin: 06/01/17 06:13 Dose: 40 mg Phenazopyridine HCl (Pyridium) 200 mg PO Q8 [facility] Last Admin: 06/01/17 06:14 Dose: 200 mg Polyethylene Glycol (Miralax) 17 gm PO BID [facility] Last Admin: 05/31/17 17:41 Dose: Not Given Prednisone (Prednisone Tab) 10 mg PO DAILY [facility] Last Admin: 05/31/17 11:22 Dose: 10 mg Sodium Phosphate (Fleet Enema) 135 ml RC Q8 PRN PRN Reason: Constipation Tramadol HCl (Ultram) 50 mg PO TID PRN PRN Reason: Pain Last Admin: 05/28/17 05:21 Dose: 50 mg Vancomycin HCl (Vancocin 25 Mg/Ml (Oral Use)) 125 mg PO QID [facility] PRN Reason: Protocol Last Admin: 05/31/17 22:53 Dose: 125 mg - Labs Labs: 06/01/17 06:30 06/01/17 06:30 PT 11.7 Seconds (9.9-11.8) 05/23/17 10:00 INR 1.08 (0.93-1.08) 05/23/17 10:00 APTT 26.3 Seconds (23.7-30.8) 05/23/17 10:00 - Constitutional Appears: No Acute Distress - Head Exam Head Exam: NORMOCEPHALIC - Eye Exam Eye Exam: Normal appearance. absent: Scleral icterus - ENT Exam ENT Exam: Mucous Membranes Moist - Neck Exam Neck Exam: Normal Inspection - Respiratory Exam Respiratory Exam: NORMAL BREATHING PATTERN. absent: Respiratory Distress - Cardiovascular Exam Cardiovascular Exam: +S1, +S2 - GI/Abdominal Exam GI & Abdominal Exam: Soft, Normal Bowel Sounds. absent: Guarding, Tenderness, Rebound - Extremities Exam Extremities Exam: Normal Capillary Refill, Pedal Edema (lower bilateral edema decrease). absent: Calf Tenderness - Neurological Exam Neurological Exam: Alert, Awake, Oriented x3 Assessment and Plan - Assessment and Plan (Free Text) Assessment: ASSESSMENT: C Diff (+) Antigen Improved Abdominal Pain Stage IV Prostate Cancer, s/p Cystoscopy w/CBI and yesterday s/p Bladder Fulguration Abdominal & Pelvic lymphadenopathy Chronic Constipation Gallstones DM CAD COPD PLAN: on oral vancomycin on Miralax BID, hold for diarrhea Colace on hold On Pyridium on lasix diet as tolerated monitor electrolytes, H/H as per urology/oncology Seen and discussed w/ Dr. Bal. <Fredi Bal V - Last Filed: 06/02/17 13:03> Objective - Vital Signs/Intake and Output Vital Signs (last 24 hours): Temp Pulse Resp BP Pulse Ox 97.5 F L 63 20 152/69 H 96 06/01/17 08:00 06/01/17 10:35 06/01/17 08:00 06/01/17 10:55 06/01/17 08:00 Intake and Output: 06/01/17 06/02/17 18:59 06:59 Intake Total 780 Output Total 600 Balance 180 - Labs Labs: 06/01/17 06:30 06/01/17 06:30 PT 11.7 Seconds (9.9-11.8) 05/23/17 10:00 INR 1.08 (0.93-1.08) 05/23/17 10:00 APTT 26.3 Seconds (23.7-30.8) 05/23/17 10:00 Attending/Attestation - Attestation I have personally seen and examined this patient.: Yes I have fully participated in the care of the patient.: Yes I have reviewed all pertinent clinical information, including history, physical exam and plan: Yes Notes (Text): this is an addendum to the GI progress note of SADIA Mcintosh. Patient was seen and examined and chart reviewed earlier today. The patient is currently not having diarrhea but having pasty stool. Positive stool for C. difficile antigen currently on oral vancomycin. His abdominal pain and rectal pain have improved. No reports of bleeding. Continue current treatment. 06/02/17 13:02
--- NOTE | 2017-06-01 11:50 | PN ---
SUBJECTIVE: The patient is in the [facility] in [place]. The patient is in room #578, bed 1. The patient was admitted with urinary retention, sepsis, anemia. The patient had severe hematuria. Now, the patient is in the acute medical floor being treated with antibiotics. The patient has clinically improved. The irrigation of the bladder has been stopped since this morning. PHYSICAL EXAMINATION: VITAL SIGNS: Pulse is 67, blood pressure 150/65, the patient's respirations are 18, and O2 saturation is 93% on room air. HEENT: Head is normocephalic. LUNGS: Cleared clinically except for basilar crepitation, scattered. HEART: Normal sinus rhythm, S1 and S2 present. ABDOMEN: Soft. Tenderness is present, diffuse. No focal signs. CENTRAL NERVOUS SYSTEM: Within normal limits. MEDICATIONS: The patient is on ceftazidime and avibactam that patient gets every 8 hours. The patient is on Colace twice a day. The patient is on amiodarone 200 mg daily. The patient is on lactic acid, Lac-Hydrin cream for skin. Digoxin 125 mcg daily. The patient is on Lasix 40 mg twice a day. The patient is on Lipitor 10 mg once daily, morphine sulphate for pain 4 mg q.4 hours p.r.n. for pain, calcium carbonate for the bones, prednisone 10 mg daily, pantoprazole 40 mg daily, Pyridium 200 mg q.8 hours. The patient takes Reglan 10 mg IV once in the morning. The patient takes montelukast, which is Singulair 10 mg daily. Synthroid 100 mcg daily. Tramadol 50 mg t.i.d. p.r.n. for pain. The patient is on heart healthy diet, diabetic. The patient is on insulin coverage for diabetes also. Last time, the patient's blood sugar was risen to 409. This morning, the patient's sugar is low to 99. The patient's insulin coverage is erratic because the patient's sugar levels are erratic. We will continue current management. He is waiting to be evaluated and admitted to transitional care unit after discharge. We will follow up. Giselle Polk MD
--- NOTE | 2017-06-01 14:02 | CP.PCM.PN ---
Subjective - Date & Time of Evaluation Date of Evaluation: 06/01/17 Time of Evaluation: 07:05 - Subjective Subjective: Heme/onc note for Dr Carballo: Pt was seen and examined at bedside. No acute events overnight.States that his abd pain is much better. No hematuria. Denies any buckner, dizziness, f/c, n/v/d, sob , cp. Objective - Vital Signs/Intake and Output Vital Signs (last 24 hours): Temp Pulse Resp BP Pulse Ox 97.5 F L 63 20 152/69 H 96 06/01/17 08:00 06/01/17 10:35 06/01/17 08:00 06/01/17 10:55 06/01/17 08:00 Intake and Output: 06/01/17 06/01/17 06:59 18:59 Intake Total 1020 Output Total 5952 Balance -4932 - Medications Medications: Current Medications Amiodarone HCl (Cordarone) 200 mg PO DAILY [facility] Last Admin: 06/01/17 10:35 Dose: 200 mg Atorvastatin Calcium (Lipitor) 10 mg PO DIN [facility] Last Admin: 05/31/17 17:39 Dose: 10 mg Calcium Carbonate (Oscal) 500 mg PO TID [facility] Last Admin: 06/01/17 10:34 Dose: 500 mg Digoxin (Lanoxin) 0.125 mg PO 1400 [facility] Last Admin: 05/31/17 14:28 Dose: 0.125 mg Docusate Sodium (Colace) 100 mg PO BID [facility] Last Admin: 05/31/17 17:40 Dose: Not Given Doxercalciferol (Hectorol) 0.5 mcg PO DAILY [facility] Last Admin: 06/01/17 10:35 Dose: 0.5 mcg Furosemide (Lasix) 40 mg PO BID [facility] Last Admin: 06/01/17 10:34 Dose: 40 mg Ceftazidime/Avibactam 2.5 gm/ (Sodium Chloride) 100 mls @ 50 mls/hr IVPB Q8 [facility] Last Admin: 06/01/17 06:14 Dose: 50 mls/hr Lactic Acid (Lac-Hydrin 12% Cream (140 G)) 0 ea TOP BID [facility] Last Admin: 06/01/17 10:35 Dose: 1 applic Levalbuterol HCl (Xopenex) 0.63 mg IH [id number] [facility] Last Admin: 06/01/17 13:31 Dose: 0.63 mg Levothyroxine Sodium (Synthroid) 100 mcg PO 0600 [facility] Last Admin: 06/01/17 10:37 Dose: 100 mcg Metoclopramide HCl (Reglan) 10 mg IV ONCE PRN PRN Reason: Nausea/Vomiting Montelukast Sodium (Singulair) 10 mg PO DAILY [facility] Last Admin: 06/01/17 10:34 Dose: 10 mg Morphine Sulfate (Morphine) 4 mg IVP Q4H PRN PRN Reason: Pain, severe (8-10) Last Admin: 05/29/17 11:01 Dose: 4 mg Ondansetron HCl (Zofran Inj) 4 mg IVP Q4H PRN PRN Reason: Nausea/Vomiting Pantoprazole Sodium (Protonix Ec Tab) 40 mg PO 0600 [facility] Last Admin: 06/01/17 06:13 Dose: 40 mg Phenazopyridine HCl (Pyridium) 200 mg PO Q8 [facility] Last Admin: 06/01/17 06:14 Dose: 200 mg Polyethylene Glycol (Miralax) 17 gm PO BID [facility] Last Admin: 06/01/17 10:36 Dose: Not Given Prednisone (Prednisone Tab) 10 mg PO DAILY [facility] Last Admin: 06/01/17 10:34 Dose: 10 mg Sodium Phosphate (Fleet Enema) 135 ml RC Q8 PRN PRN Reason: Constipation Tramadol HCl (Ultram) 50 mg PO TID PRN PRN Reason: Pain Last Admin: 05/28/17 05:21 Dose: 50 mg Vancomycin HCl (Vancocin 25 Mg/Ml (Oral Use)) 125 mg PO QID [facility] PRN Reason: Protocol Last Admin: 06/01/17 10:37 Dose: 125 mg - Labs Labs: 06/01/17 06:30 06/01/17 06:30 PT 11.7 Seconds (9.9-11.8) 05/23/17 10:00 INR 1.08 (0.93-1.08) 05/23/17 10:00 APTT 26.3 Seconds (23.7-30.8) 05/23/17 10:00 - Constitutional Appears: No Acute Distress - Head Exam Head Exam: ATRAUMATIC, NORMAL INSPECTION, NORMOCEPHALIC - Eye Exam Eye Exam: EOMI, PERRL - ENT Exam ENT Exam: Mucous Membranes Moist - Neck Exam Neck Exam: Full ROM, Normal Inspection. absent: Lymphadenopathy - Respiratory Exam Respiratory Exam: Clear to Ausculation Bilateral, NORMAL BREATHING PATTERN. absent: Rales, Wheezes - Cardiovascular Exam Cardiovascular Exam: RRR, +S1, +S2 - GI/Abdominal Exam GI & Abdominal Exam: Soft. absent: Distended, Tenderness - Extremities Exam Extremities Exam: Normal Capillary Refill. absent: Calf Tenderness, Joint Swelling, Pedal Edema - Neurological Exam Neurological Exam: Alert, Awake, CN II-XII Intact, Oriented x3 - Psychiatric Exam Psychiatric exam: Normal Affect, Normal Mood - Skin Skin Exam: Dry, Intact, Normal Color, Warm Assessment and Plan - Assessment and Plan (Free Text) Assessment: 87 M with history of stage 4 castrate resistant prostate cancer, chronic heart failure, COPD, DMII, coronary artery disease, hypothyroidism, and arthritis who was admitted for hematuria and blood clots. Pt is s/p cystoscopy with evacuation of clots, cath replacement, with continuous bladder irrigation. s/p bladder fulguration POD3. Accepted to TCU for deconditioning and cont antibiotics. Plan: - Accepted to TCU for deconditioning and continued antibiotics. - f/u urology recs - Bladder irrigation discontinued - To cont Zytiga once home and Cytotoxin as outpt upon insurance approval - ID consulted - on Ceftazadine target of 10 days, cont Vanco PO 125mg Q6H for C.diff antigen positive - CT abdomen & pelvis with no contrast for abd pain - acute cystitis correlate with urinalysis, scheleortic mets, retroperitoneal and pelvic lymphadenopathy, small bowel mesenteric lymphadenopathy - Cont with Pyridium - Prednisone 10mg daily - Nephro Consult - cont current management monitor I and O - Cardio consult - cont current meds - cardiology recs- cont current therapy - GI and DVT ppx - PT and OT Case and plan was seen, reviewed and discussed in detail with Dr Carballo.
--- NOTE | 2017-06-01 14:38 | PN ---
DATE: 06/01/2017 SUBJECTIVE: The patient is seen sitting in chair. He is awake, he is alert. He feels much better. His hands are less swollen. PHYSICAL EXAMINATION GENERAL: An elderly male, sitting in chair. VITAL SIGNS: Blood pressure 152/69, heart rate 63, respiratory rate 20, temperature 97.5. HEENT: Normocephalic, atraumatic, positive pallor. NECK: Supple, no JVD. LUNGS: Bilateral equal air entry, no rales. CARDIAC: S1, S2, regular rate and rhythm, no murmur, no rub. ABDOMEN: Obese, distended, soft, nontender, bowel sounds present. EXTREMITIES: 2+ pitting edema of the lower extremities. INTAKE AND OUTPUT: 1540/2800. LABORATORY DATA: WBC 12.2, hemoglobin 9.7, hematocrit 31.5, platelets 282. Sodium 135, potassium 4.1, chloride 96, CO2 of 33, BUN 34, creatinine 1.2, glucose 76, calcium 8.2, AST 57, ALT 60, albumin 2.9, corrected calcium is 8.9. CURRENT MEDICATIONS: Ceftazidime/avibactam, Cordarone, Hectorol, Lanoxin, Lasix 40 p.o. b.i.d., Lipitor 10, MiraLax 17 g daily, Os-Pedro, Protonix, Pyridium, Reglan, Singulair, Synthroid, tramadol, vancomycin 125 p.o. q.i.d., Xopenex. ASSESSMENT AND PLAN 1. Resolved acute kidney injury. 2. Underlying chronic kidney disease stage 3/4. 3. Prostate cancer with bladder wall invasion. 4. Recurrent hematuria. 5. Resistant UTI. 6. Volume overload. 7. NIDDM. 8. CHF. PLAN: 1. Continue Lasix 40 mg p.o. b.i.d. 2. Lasix 40 mg IV push x1 dose. 3. Monitor urine output. 4. Monitor electrolytes. 5. Bladder irrigation as per urology. 6. Continue fingerstick monitoring and insulin. Marianne Lozano MD
[2017-06-01] MEDS: Digoxin 125 mcg (0.125 mg) Tab PO SCH (15:14)
[2017-06-01 15:16] VITALS: PULSE 63
--- NOTE | 2017-06-01 15:37 | PN ---
DATE: 06/01/2017 LOCATION: The patient in room 578, bed 1. REASON FOR CONSULTATION: Followup coronary artery disease. SUBJECTIVE: The patient is sitting in bed without any chest pain, shortness of breath or palpitation. He still complaints of pelvic area pain. The patient's yesterday Lasix was increased to 80 p.o. daily and now he also received IV Lasix yesterday and today and his edema has improved. PHYSICAL EXAMINATION: VITAL SIGNS: Blood pressure 152/69, respirations 20, pulse 63, and temperature 97.5. HEENT: Head is normocephalic. Eyes, pupils normal. Conjunctivae slightly pale. NECK: JVP low. Carotids equal. Thorax, AP diameter normal. LUNGS: No rales. CARDIOVASCULAR: S1 and S2. ABDOMEN: Soft and nontender. No organomegaly. Bowel sounds normal. EXTREMITIES: No clubbing. No cyanosis. Edema has shown improvement. LABORATORY DATA: WBC 12.2, hemoglobin 9.7, hematocrit 31.5, and platelet 282. Sodium 135, potassium 4.1, BUN 34, creatinine 1.2, and random sugar 208, another sugar of 91. AST 57, ALT 60, alkaline phosphate 144, total protein 5.4, albumin 2.9. DIAGNOSES: Coronary artery disease, status post coronary bypass surgery, status post multiple angioplasty stent insertion, status post mitral valve repair, history of prostate cancer with metastasis, indwelling Avendano catheter, pelvic pain. The patient is status post cystoscope and fulguration of prostate at the bleeding site, anemia, left ventricular dysfunction, AICD insertion, history of gross hematuria, edema. PLAN: The patient's Lasix was increased to 80 p.o. daily and also received 40 mg IV yesterday and 40 IV this morning. His edema is showing improvement. We will continue other medications, his amiodarone 200 daily, insulin as ordered, digoxin 0.15 daily, Lasix 40 mg p.o. b.i.d., Lipitor 10 mg p.o. daily, prednisone 10 mg p.o. daily. The patient is also on antibiotic Avycaz 2.5 g IV q. 8 hours, Singulair 10 mg daily, levothyroxine 100 mcg daily, Xopenex hand nebulizer therapy. We will follow with you. Mely Walters MD
--- NOTE | 2017-06-01 16:03 | CP.PCM.PN ---
Subjective - Date & Time of Evaluation Date of Evaluation: 06/01/17 Time of Evaluation: 11:20 - Subjective Subjective: Comfortable, feeling better, loose stools are better, no fevers. Objective - Vital Signs/Intake and Output Vital Signs (last 24 hours): Temp Pulse Resp BP Pulse Ox 97.8 F 67 18 151/64 H 93 L 05/31/17 16:30 05/31/17 16:30 05/31/17 16:30 05/31/17 17:40 05/31/17 16:30 Intake and Output: 06/01/17 06/01/17 06:59 18:59 Intake Total 1020 Output Total 5952 Balance -4932 - Medications Medications: Current Medications Amiodarone HCl (Cordarone) 200 mg PO DAILY [facility] Last Admin: 05/31/17 11:22 Dose: 200 mg Atorvastatin Calcium (Lipitor) 10 mg PO DIN [facility] Last Admin: 05/31/17 17:39 Dose: 10 mg Calcium Carbonate (Oscal) 500 mg PO TID [facility] Last Admin: 05/31/17 17:40 Dose: 500 mg Digoxin (Lanoxin) 0.125 mg PO 1400 [facility] Last Admin: 05/31/17 14:28 Dose: 0.125 mg Docusate Sodium (Colace) 100 mg PO BID [facility] Last Admin: 05/31/17 17:40 Dose: Not Given Doxercalciferol (Hectorol) 0.5 mcg PO DAILY [facility] Last Admin: 05/31/17 11:22 Dose: 0.5 mcg Furosemide (Lasix) 40 mg PO BID [facility] Last Admin: 05/31/17 17:40 Dose: 40 mg Ceftazidime/Avibactam 2.5 gm/ (Sodium Chloride) 100 mls @ 50 mls/hr IVPB Q8 [facility] Last Admin: 06/01/17 06:14 Dose: 50 mls/hr Lactic Acid (Lac-Hydrin 12% Cream (140 G)) 0 ea TOP BID [facility] Last Admin: 05/31/17 17:41 Dose: 1 applic Levalbuterol HCl (Xopenex) 0.63 mg IH [id number] [facility] Last Admin: 06/01/17 08:17 Dose: 0.63 mg Levothyroxine Sodium (Synthroid) 100 mcg PO 0600 [facility] Last Admin: 05/31/17 05:28 Dose: 100 mcg Metoclopramide HCl (Reglan) 10 mg IV ONCE PRN PRN Reason: Nausea/Vomiting Montelukast Sodium (Singulair) 10 mg PO DAILY [facility] Last Admin: 05/31/17 11:22 Dose: 10 mg Morphine Sulfate (Morphine) 4 mg IVP Q4H PRN PRN Reason: Pain, severe (8-10) Last Admin: 05/29/17 11:01 Dose: 4 mg Ondansetron HCl (Zofran Inj) 4 mg IVP Q4H PRN PRN Reason: Nausea/Vomiting Pantoprazole Sodium (Protonix Ec Tab) 40 mg PO 0600 [facility] Last Admin: 06/01/17 06:13 Dose: 40 mg Phenazopyridine HCl (Pyridium) 200 mg PO Q8 [facility] Last Admin: 06/01/17 06:14 Dose: 200 mg Polyethylene Glycol (Miralax) 17 gm PO BID [facility] Last Admin: 05/31/17 17:41 Dose: Not Given Prednisone (Prednisone Tab) 10 mg PO DAILY [facility] Last Admin: 05/31/17 11:22 Dose: 10 mg Sodium Phosphate (Fleet Enema) 135 ml RC Q8 PRN PRN Reason: Constipation Tramadol HCl (Ultram) 50 mg PO TID PRN PRN Reason: Pain Last Admin: 05/28/17 05:21 Dose: 50 mg Vancomycin HCl (Vancocin 25 Mg/Ml (Oral Use)) 125 mg PO QID [facility] PRN Reason: Protocol Last Admin: 05/31/17 22:53 Dose: 125 mg - Labs Labs: 06/01/17 06:30 06/01/17 06:30 PT 11.7 Seconds (9.9-11.8) 05/23/17 10:00 INR 1.08 (0.93-1.08) 05/23/17 10:00 APTT 26.3 Seconds (23.7-30.8) 05/23/17 10:00 - Constitutional Appears: Non-toxic, No Acute Distress - Head Exam Head Exam: NORMAL INSPECTION - ENT Exam ENT Exam: Mucous Membranes Moist - Neck Exam Neck Exam: absent: Lymphadenopathy, Meningismus - Respiratory Exam Respiratory Exam: Decreased Breath Sounds - Cardiovascular Exam Cardiovascular Exam: +S1, +S2 - GI/Abdominal Exam GI & Abdominal Exam: Soft. absent: Tenderness Assessment and Plan - Assessment and Plan (Free Text) Plan: Assessment Systemic Inflammatory Response Syndrome in a patient who had hematuria S/P cystoscopy and irrigation of the bladder, with sepsis from UTI with Carbapenem- resistant Klebsiella consider C. diff. associated diarrhea S/P lower urinary tract infection in a patient with indwelling Avendano catheter growing Carbapenem-resistant Klebsiella history of right foot necrotic ulcer with surrounding cellulitis UTI with Enterococcus and Klebsiella chronic renal failure history of DVT DM metastatic Prostate CA history of Enterococcus UTI chronic atrial fibrillation S/P pacemaker and ICD placement Plan continue Avycaz day 8 - should target 10-14 days of antibiotics will continue to monitor clinically
[2017-06-01] MEDS ORDERED: Insulin Human NPH/Reg 70/30 Vial(3 ml) SC SCH (22:00)
[2017-06-02] MEDS ORDERED: Insulin Human NPH/Reg 70/30 Vial(3 ml) SC SCH (07:30)
== END 2017-06-01 15:35 | DRG 713 ==
LOC: ED 09:37 → ERH 12:18 → 2RNO 14:10 → 5RSO 05-26 18:45
PROVIDERS: ADMIT Internal Medicine; ATTEND Internal Medicine
PROC: 30233N1 Transfusion of Nonautologous Red Blood Cells into Peripheral Vein, Percutaneous Approach (ICD-10-PCS; 2017-05-23)
PROC: 0T2BX0Z Change Drainage Device in Bladder, External Approach (ICD-10-PCS; 2017-05-23)
PROC: 0TCB8ZZ Extirpation of Matter from Bladder, Via Natural or Artificial Opening Endoscopic (ICD-10-PCS; principal; 2017-05-23 18:30)
PROC: 0V508ZZ Destruction of Prostate, Via Natural or Artificial Opening Endoscopic (ICD-10-PCS; 2017-05-29)
PROC: 0T5B8ZZ Destruction of Bladder, Via Natural or Artificial Opening Endoscopic (ICD-10-PCS; 2017-05-29)
DX: C61 Malignant neoplasm of prostate (principal); A41.9 Sepsis, unspecified organism; C77.9 Secondary and unspecified malignant neoplasm of lymph node, unspecified; C79.51 Secondary malignant neoplasm of bone; N17.9 Acute kidney failure, unspecified; A04.7 Enterocolitis due to Clostridium difficile; N18.4 Chronic kidney disease, stage 4 (severe); N02.9 Recurrent and persistent hematuria with unspecified morphologic changes; I13.0 Hypertensive heart and chronic kidney disease with heart failure and stage 1 through stage 4 chronic kidney disease, or unspecified chronic kidney disease; I50.42 Chronic combined systolic (congestive) and diastolic (congestive) heart failure; I42.0 Dilated cardiomyopathy; N30.01 Acute cystitis with hematuria; T83.098A Other mechanical complication of other urinary catheter, initial encounter; E11.22 Type 2 diabetes mellitus with diabetic chronic kidney disease; I48.0 Paroxysmal atrial fibrillation; I48.2 Chronic atrial fibrillation; J44.9 Chronic obstructive pulmonary disease, unspecified; D50.0 Iron deficiency anemia secondary to blood loss (chronic); I25.10 Atherosclerotic heart disease of native coronary artery without angina pectoris; M19.90 Unspecified osteoarthritis, unspecified site; E03.9 Hypothyroidism, unspecified; B96.1 Klebsiella pneumoniae [K. pneumoniae] as the cause of diseases classified elsewhere; Z16.24 Resistance to multiple antibiotics; I08.1 Rheumatic disorders of both mitral and tricuspid valves; R33.9 Retention of urine, unspecified; E83.51 Hypocalcemia; K59.09 Other constipation; K80.20 Calculus of gallbladder without cholecystitis without obstruction; Y84.6 Urinary catheterization as the cause of abnormal reaction of the patient, or of later complication, without mention of misadventure at the time of the procedure; Z86.718 Personal history of other venous thrombosis and embolism; Z95.1 Presence of aortocoronary bypass graft; Z95.810 Presence of automatic (implantable) cardiac defibrillator; Z79.4 Long term (current) use of insulin

== ENCOUNTER 2017-06-01 15:35 | Inpatient (IN) | payer OTHER, MEDICARE ==
[2017-06-01] MEDS ORDERED: Insulin Human NPH/Reg 70/30 Vial(3 ml) SC SCH (16:30)
[2017-06-01] MEDS ORDERED: Morphine 4 mg/ml ISec IVP PRN (17:01)
[2017-06-01] MEDS ORDERED: Metoclopramide 5 mg/5 ml Oral Sol PO PRN (17:01)
[2017-06-01] MEDS: POLYETHYLENE GLYCOL 3350 17 GM/Dose PACKET PO SCH (18:30)
[2017-06-01] MEDS: Vancomycin 25 MG/ML PO SCH ×2 (18:34→22:06)
[2017-06-01] MEDS ORDERED: Pneumococcal 23-Valent Vaccine IM ONE (20:11)
[2017-06-01] MEDS: Levalbuterol 0.63 MG/3 ML Inhal Soln UD IH SCH (20:54)
[2017-06-01] MEDS: Insulin Human NPH/Reg 70/30 Vial(3 ml) SC SCH (22:40)
[2017-06-02] MEDS: Levalbuterol 0.63 MG/3 ML Inhal Soln UD IH SCH ×4 (00:59→19:46)
[2017-06-02] MEDS: Levothyroxine 100 MCG TAB PO SCH (05:48)
[2017-06-02] MEDS: Pantoprazole 40 mg EC Tab PO SCH (05:48)
[2017-06-02 06:58] LABS: BLOOD UREA NITROGEN 34 mg/dL (7-21); CALCIUM 7.7 mg/dL (8.4-10.5); CARBON DIOXIDE 32 mmol/L (21-33); CHLORIDE 95 mmol/L (95-110); GFR AFRICAN-AMERICAN > 60; GLUCOSE,RANDOM 125 mg/dL (70-110); POTASSIUM 4.1 mmol/L (3.6-5.0); SODIUM 135 mmol/L (132-148)
[2017-06-02] MEDS: Insulin Human NPH/Reg 70/30 Vial(3 ml) SC SCH ×4 (08:03→21:48)
--- NOTE | 2017-06-02 08:40 | CP.PCM.HP ---
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 Patient had to be taken to the OR for evacuation of blood clots and then again for cauterization of bleeding sites. Patient developed sepsis after procedure. He is now transferred to the [facility] for deconditioning, gait dysfuction, completion of IV antibiotics and monitoring of hematuria and hemoglobin. This morning, his urine is clear but orange colored secondary to the pyridium. He denies chest pain or shortness of breath. Present on Admission - Present on Admission Any Indicators Present on Admission: Yes History of DVT/PE: Yes History of Uncontrolled Diabetes: Yes Urinary Catheter: Yes Decubitus Ulcer Present: No Review of Systems - Constitutional Constitutional: absent: Chills, Fever, Lethargy - Cardiovascular Cardiovascular: absent: Chest Pain, Diaphoresis, Dyspnea - Respiratory Respiratory: absent: Cough, Dyspnea, Wheezing - Genitourinary Additional comments: chronic indwelling schroeder catheter - Musculoskeletal Musculoskeletal: Abnormal Gait Past Patient History - Infectious Disease Hx of Infectious Diseases: None - Tetanus Immunizations Tetanus Immunization: Unknown - Past Medical History & Family History Past Medical History?: Yes - Past Social History Smoking Status: Unknown If Ever Smoked - CARDIAC Hx Cardiac Disorders: Yes (ACS, CAD, CABG) Hx Congestive Heart Failure: Yes Hx Hypertension: Yes - PULMONARY Hx Chronic Obstructive Pulmonary Disease (COPD): Yes - NEUROLOGICAL Hx Neurological Disorder: No - HEENT Hx HEENT Problems: Yes ([place]) Hx Cataracts: Yes (WITH b/t SURGERY) Hx Glaucoma: Yes - RENAL Hx Renal Failure: Yes - ENDOCRINE/METABOLIC Hx Diabetes Mellitus Type 2: Yes Hx Hypothyroidism: Yes - HEMATOLOGICAL/ONCOLOGICAL Hx Blood Disorders: Yes Hx Anemia: Yes (in past with blood transfusion) 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) Other/Comment: pt dx in 2001 had radiation trreatments, dx again in 2016 was taking po chemo, stopped due to recommendation by dr Carballo as per pt due to pt taking amidorone for 25 yrs was not compatable - INTEGUMENTARY Other/Comment: multiple skin discolorations and tatoos both arms, multiple brown skin discolorations ble - MUSCULOSKELETAL/RHEUMATOLOGICAL Hx Falls: No - GASTROINTESTINAL Hx Gastrointestinal Disorders: No - GENITOURINARY/GYNECOLOGICAL Hx Reproductive Disorders: Yes - PSYCHIATRIC Hx Psychophysiologic Disorder: No Hx Emotional Abuse: No Hx Physical Abuse: No - SURGICAL HISTORY Hx Surgeries: Yes - ANESTHESIA Hx Anesthesia Reactions: No Hx Malignant Hyperthermia: No Meds Allergies/Adverse Reactions: Allergies Allergy/AdvReac Type Severity Reaction Status Date / Time Iodinated Contrast- Oral and Allergy ANAPHYLAXIS Verified 05/23/17 09:56 IV Dye levofloxacin [From Levaquin] Allergy ANAPHYLAXIS Verified 05/23/17 09:56 Physical Exam - Constitutional Appears: No Acute Distress - Head Exam Head Exam: ATRAUMATIC, NORMOCEPHALIC - Respiratory Exam Respiratory Exam: Clear to Auscultation Bilateral, NORMAL BREATHING PATTERN - Cardiovascular Exam Cardiovascular Exam: +S1, +S2 - GI/Abdominal Exam GI & Abdominal Exam: Normal Bowel Sounds, Soft, Tenderness - Extremities Exam Extremities exam: Positive for: pedal edema - Neurological Exam Neurological exam: Alert, CN II-XII Intact, Oriented x3 Results - Vital Signs Recent Vital Signs: Last Vital Signs Temp 97.1 F L 06/01/17 20:00 Pulse 92 H 06/01/17 20:00 Resp 18 06/01/17 20:00 BP 112/68 06/01/17 20:00 Pulse Ox - Labs Result Diagrams: 06/02/17 06:30 Labs: Laboratory Results - last 24 hr 06/02/17 06:30 Sodium 135 Potassium 4.1 Chloride 95 Carbon Dioxide 32 Anion Gap 12 BUN 34 H Creatinine 1.2 Est GFR ( Amer) > 60 Est GFR (Non-Af Amer) 57 Random Glucose 125 H Calcium 7.7 L Assessment & Plan - Assessment and Plan (Free Text) Assessment: Deconditioning Ambulatory dysfunction Chronic heart failure COPD Hypothyroidism DMII Arthritis CKD Metastatic prostate cancer with recurrent hematuria Plan: Patient is seen this morning. He has difficulty in standing and walking. He will finish course of antibiotics for sepsis. He will receive physical therapy for gait training and strengthening. continue insulin for diabetes. continue maintenance medications. Patient is off bladder irrigation. Monitor hemoglobin.
--- NOTE | 2017-06-02 09:38 | CP.PCM.PN ---
Subjective - Date & Time of Evaluation Date of Evaluation: 06/02/17 Time of Evaluation: 08:50 - Subjective Subjective: S&E at bedside in TCU, tolerating oral intake, having "muddy" like BM, no bleeding, abdominal pain continue to be better, no rectal pain. No fever or chills, still has schroeder. Had BM this am. No acute overnight events reported. Objective - Vital Signs/Intake and Output Vital Signs (last 24 hours): Temp Pulse Resp BP Pulse Ox 97.4 F L 55 L 18 116/45 L 96 06/02/17 09:09 06/02/17 09:09 06/02/17 09:09 06/02/17 09:09 06/02/17 09:09 Intake and Output: 06/02/17 06/02/17 06:59 18:59 Output Total 1800 Balance -1800 - Medications Medications: Current Medications Amiodarone HCl (Cordarone) 200 mg PO DAILY [facility] PRN Reason: Protocol Atorvastatin Calcium (Lipitor) 10 mg PO DIN [facility] PRN Reason: Protocol Calcium Carbonate (Oscal) 500 mg PO TID [facility] PRN Reason: Protocol Last Admin: 06/01/17 18:31 Dose: 500 mg Digoxin (Lanoxin) 0.125 mg PO 1400 [facility] PRN Reason: Protocol Docusate Sodium (Colace) 100 mg PO BID [facility] PRN Reason: Protocol Last Admin: 06/01/17 18:28 Dose: 100 mg Doxercalciferol (Hectorol) 0.5 mcg PO DAILY [facility] PRN Reason: Protocol Furosemide (Lasix) 40 mg PO BID [facility] PRN Reason: Protocol Last Admin: 06/01/17 18:29 Dose: 40 mg Ceftazidime/Avibactam 2.5 gm/ (Sodium Chloride) 100 mls @ 50 mls/hr IVPB Q8H [facility] PRN Reason: Protocol Stop: 06/06/17 22:01 Last Admin: 06/02/17 05:48 Dose: 50 mls/hr Levalbuterol HCl (Xopenex) 0.63 mg IH [id number] [facility] PRN Reason: Protocol Last Admin: 06/02/17 07:17 Dose: 0.63 mg Levothyroxine Sodium (Synthroid) 100 mcg PO 0600 [facility] PRN Reason: Protocol Last Admin: 06/02/17 05:48 Dose: 100 mcg Montelukast Sodium (Singulair) 10 mg PO DAILY [facility] PRN Reason: Protocol Morphine Sulfate (Morphine) 4 mg IVP Q4H PRN; Protocol PRN Reason: Pain, severe (8-10) Ondansetron HCl (Zofran Inj) 4 mg IVP Q4H PRN; Protocol PRN Reason: Nausea/Vomiting Pantoprazole Sodium (Protonix Ec Tab) 40 mg PO 0600 [facility] PRN Reason: Protocol Last Admin: 06/02/17 05:48 Dose: 40 mg Phenazopyridine HCl (Pyridium) 200 mg PO 0000,0800,1600 [facility] PRN Reason: Protocol Last Admin: 06/02/17 07:59 Dose: 200 mg Polyethylene Glycol (Miralax) 17 gm PO BID [facility] PRN Reason: Protocol Last Admin: 06/01/17 18:30 Dose: 17 gm Prednisone (Prednisone Tab) 10 mg PO DAILY [facility] PRN Reason: Protocol Sodium Phosphate (Fleet Enema) 135 ml RC Q8H PRN; Protocol PRN Reason: Constipation Tramadol HCl (Ultram) 50 mg PO TID [facility] PRN Reason: Protocol Last Admin: 06/01/17 18:33 Dose: 50 mg Vancomycin HCl (Vancocin 25 Mg/Ml (Oral Use)) 125 mg PO QID [facility] PRN Reason: Protocol Last Admin: 06/01/17 22:06 Dose: 125 mg - Labs Labs: 06/02/17 06:30 - Constitutional Appears: No Acute Distress - Head Exam Head Exam: NORMOCEPHALIC - Eye Exam Eye Exam: Normal appearance. absent: Scleral icterus - ENT Exam ENT Exam: Mucous Membranes Moist - Neck Exam Neck Exam: Normal Inspection - Respiratory Exam Respiratory Exam: NORMAL BREATHING PATTERN. absent: Respiratory Distress - Cardiovascular Exam Cardiovascular Exam: +S1, +S2 - GI/Abdominal Exam GI & Abdominal Exam: Soft, Normal Bowel Sounds. absent: Distended, Guarding, Tenderness, Rebound - Extremities Exam Extremities Exam: Normal Capillary Refill, Pedal Edema. absent: Calf Tenderness - Neurological Exam Neurological Exam: Alert, Awake, Oriented x3 Assessment and Plan - Assessment and Plan (Free Text) Assessment: SSESSMENT: C Diff (+) Antigen Improved Abdominal Pain s/p Hematuria Stage IV Prostate Cancer, s/p Cystoscopy w/CBI and yesterday s/p Bladder Fulguration Abdominal & Pelvic lymphadenopathy Chronic Constipation Gallstones DM CAD COPD PLAN: on oral vancomycin on Miralax BID, hold for diarrhea Colace on hold On Pyridium,IV antibiotics on lasix diet as tolerated monitor electrolytes, H/H as per urology/oncology continue current treatment, patient is doing well, abdominal and rectal pain have improved. He is having BM but no diarrhea. Seen and discussed w/ Dr. Bal.
[2017-06-02] MEDS: POLYETHYLENE GLYCOL 3350 17 GM/Dose PACKET PO SCH ×2 (10:18→17:00)
[2017-06-02] MEDS: Vancomycin 25 MG/ML PO SCH ×4 (10:19→21:46)
[2017-06-02] MEDS: Digoxin 125 mcg (0.125 mg) Tab PO SCH (13:24)
--- NOTE | 2017-06-02 16:10 | CP.PCM.CON ---
<Barrington Camarena - Last Filed: 06/02/17 16:05> History of Present Illness - History of Present Illness History of Present Illness: 87 M with extensive cardiac and pulmonary history, stage 4 prostate cancer with bone mets and extensive retroperitoneal lymphadenopathy, chronic kidney disease 3a, COPD, A-fib on amiodarone (no anticoagulation due to hematuria), CAD s/p CABG with 4 stents, hypothyroidism, DM, and arthritis, who presented to the ED with hematuria and blood clots blocking his schroeder catheter. Urology was consulted and pt went for an Cystoscopy with evacuation of clots. Catheter replacement. CBI. He than went for a cystoscopy with bladder fulguration. Currently he is doing much better. No clots or no hematuria. No bladder spasms. He denies any buckner, dizziness, f/c, cp, sob, +abd pain, n/v/d. PMH: as above PSH, cystoscopy x3 weeks ago, port-a-cath placement 04/28/17, CABG, ICD placement FH: denies SH:Non smoker, no alcohol or drug use. Live independently. Worked in dye/ chemical industry All: Iodinated contrast, oral/IV dye; Levofloxacin Review of Systems - Review of Systems All systems: reviewed and no additional remarkable complaints except (HPI) Past Patient History - Infectious Disease Hx of Infectious Diseases: None - Tetanus Immunizations Tetanus Immunization: Unknown - Past Medical History & Family History Past Medical History?: Yes - Past Social History Smoking Status: Unknown If Ever Smoked - CARDIAC Hx Cardiac Disorders: Yes Hx Congestive Heart Failure: Yes - PULMONARY Hx Chronic Obstructive Pulmonary Disease (COPD): Yes - NEUROLOGICAL Hx Neurological Disorder: No - HEENT Hx HEENT Problems: Yes ([place]) Hx Cataracts: Yes (WITH b/t SURGERY) Hx Glaucoma: Yes - RENAL Hx Renal Failure: Yes - ENDOCRINE/METABOLIC Hx Diabetes Mellitus Type 2: Yes Hx Hypothyroidism: Yes - HEMATOLOGICAL/ONCOLOGICAL Hx Blood Disorders: Yes Hx Anemia: Yes (in past with blood transfusion) 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) Other/Comment: pt dx in 2001 had radiation trreatments, dx again in 2016 was taking po chemo, stopped due to recommendation by dr Carballo as per pt due to pt taking amidorone for 25 yrs was not compatable - INTEGUMENTARY Other/Comment: multiple skin discolorations and tatoos both arms, multiple brown skin discolorations ble - MUSCULOSKELETAL/RHEUMATOLOGICAL Hx Arthritis: Yes - GASTROINTESTINAL Hx Gastrointestinal Disorders: No - GENITOURINARY/GYNECOLOGICAL Hx Reproductive Disorders: Yes - PSYCHIATRIC Hx Psychophysiologic Disorder: No Hx Emotional Abuse: No Hx Physical Abuse: No - SURGICAL HISTORY Hx Surgeries: Yes - ANESTHESIA Hx Anesthesia Reactions: No Hx Malignant Hyperthermia: No Meds Allergies/Adverse Reactions: Allergies Allergy/AdvReac Type Severity Reaction Status Date / Time Iodinated Contrast- Oral and Allergy ANAPHYLAXIS Verified 05/23/17 09:56 IV Dye levofloxacin [From Levaquin] Allergy ANAPHYLAXIS Verified 05/23/17 09:56 - Medications Medications: Current Medications Amiodarone HCl (Cordarone) 200 mg PO DAILY [facility] PRN Reason: Protocol Last Admin: 06/02/17 10:17 Dose: 200 mg Atorvastatin Calcium (Lipitor) 10 mg PO DIN [facility] PRN Reason: Protocol Calcium Carbonate (Oscal) 500 mg PO TID [facility] PRN Reason: Protocol Last Admin: 06/02/17 13:24 Dose: 500 mg Digoxin (Lanoxin) 0.125 mg PO 1400 [facility] PRN Reason: Protocol Last Admin: 06/02/17 13:24 Dose: 0.125 mg Docusate Sodium (Colace) 100 mg PO BID [facility] PRN Reason: Protocol Last Admin: 06/02/17 10:17 Dose: Not Given Doxercalciferol (Hectorol) 0.5 mcg PO DAILY [facility] PRN Reason: Protocol Last Admin: 06/02/17 10:17 Dose: 0.5 mcg Furosemide (Lasix) 40 mg PO BID [facility] PRN Reason: Protocol Last Admin: 06/02/17 10:18 Dose: Not Given Ceftazidime/Avibactam 2.5 gm/ (Sodium Chloride) 100 mls @ 50 mls/hr IVPB Q8H [facility] PRN Reason: Protocol Stop: 06/06/17 22:01 Last Admin: 06/02/17 13:28 Dose: 50 mls/hr Levalbuterol HCl (Xopenex) 0.63 mg IH [id number] [facility] PRN Reason: Protocol Last Admin: 06/02/17 13:13 Dose: 0.63 mg Levothyroxine Sodium (Synthroid) 100 mcg PO 0600 [facility] PRN Reason: Protocol Last Admin: 06/02/17 05:48 Dose: 100 mcg Montelukast Sodium (Singulair) 10 mg PO DAILY [facility] PRN Reason: Protocol Last Admin: 06/02/17 10:18 Dose: 10 mg Morphine Sulfate (Morphine) 4 mg IVP Q4H PRN; Protocol PRN Reason: Pain, severe (8-10) Ondansetron HCl (Zofran Inj) 4 mg IVP Q4H PRN; Protocol PRN Reason: Nausea/Vomiting Pantoprazole Sodium (Protonix Ec Tab) 40 mg PO 0600 [facility] PRN Reason: Protocol Last Admin: 06/02/17 05:48 Dose: 40 mg Phenazopyridine HCl (Pyridium) 200 mg PO 0000,0800,1600 [facility] PRN Reason: Protocol Last Admin: 06/02/17 07:59 Dose: 200 mg Polyethylene Glycol (Miralax) 17 gm PO BID [facility] PRN Reason: Protocol Last Admin: 06/02/17 10:18 Dose: Not Given Prednisone (Prednisone Tab) 10 mg PO DAILY [facility] PRN Reason: Protocol Last Admin: 06/02/17 10:18 Dose: 10 mg Sodium Phosphate (Fleet Enema) 135 ml RC Q8H PRN; Protocol PRN Reason: Constipation Tramadol HCl (Ultram) 50 mg PO TID [facility] PRN Reason: Protocol Last Admin: 06/02/17 10:18 Dose: 50 mg Vancomycin HCl (Vancocin 25 Mg/Ml (Oral Use)) 125 mg PO QID [facility] PRN Reason: Protocol Last Admin: 06/02/17 13:24 Dose: 125 mg Physical Exam - Constitutional Appears: No Acute Distress - Head Exam Head Exam: ATRAUMATIC, NORMAL INSPECTION, NORMOCEPHALIC - Eye Exam Eye Exam: EOMI, Normal appearance, PERRL Pupil Exam: NORMAL ACCOMODATION, PERRL - ENT Exam ENT Exam: Mucous Membranes Moist, Normal Exam - Neck Exam Neck exam: Positive for: Normal Inspection - Respiratory Exam Respiratory Exam: Clear to Auscultation Bilateral, NORMAL BREATHING PATTERN. absent: Wheezes - Cardiovascular Exam Cardiovascular Exam: RRR, +S1, +S2 - GI/Abdominal Exam GI & Abdominal Exam: Soft. absent: Tenderness - Extremities Exam Extremities exam: Negative for: calf tenderness, pedal edema - Neurological Exam Neurological exam: Alert, CN II-XII Intact, Oriented x3 - Psychiatric Exam Psychiatric exam: Normal Affect, Normal Mood - Skin Skin Exam: Dry, Intact, Warm Results - Vital Signs Recent Vital Signs: Last Vital Signs Temp 97.4 F L 06/02/17 11:30 Pulse 60 06/02/17 11:30 Resp 18 06/02/17 11:30 BP 132/62 06/02/17 11:30 Pulse Ox 97 06/02/17 11:30 - Labs Result Diagrams: 06/02/17 06:30 Labs: Laboratory Results - last 24 hr 06/02/17 06:30 Sodium 135 Potassium 4.1 Chloride 95 Carbon Dioxide 32 Anion Gap 12 BUN 34 H Creatinine 1.2 Est GFR ( Amer) > 60 Est GFR (Non-Af Amer) 57 Random Glucose 125 H Calcium 7.7 L Assessment & Plan - Assessment and Plan (Free Text) Assessment: 87 M with history of stage 4 castrate resistant prostate cancer, chronic heart failure, COPD, DMII, coronary artery disease, hypothyroidism, and arthritis who was admitted for hematuria and blood clots. Pt is s/p cystoscopy with evacuation of clots, cath replacement, with continuous bladder irrigation. s/p bladder fulguration. Admitted to TCU for deconditioning and cont antibiotics. Plan: - TCU for deconditioning and continued antibiotics - Physical therapy for gait training and strengthening - urology recs appreciated - To cont Zytiga once home and Cytotoxin as outpt upon insurance approval - ID consulted - on Ceftazadine target of 10 days, cont Vanco PO 125mg Q6H for C.diff antigen positive - CT abdomen & pelvis with no contrast for abd pain - acute cystitis correlate with urinalysis, scheleortic mets, retroperitoneal and pelvic lymphadenopathy, small bowel mesenteric lymphadenopathy - Cont with Pyridium - Prednisone 10mg daily Case and plan was seen, reviewed and discussed in detail with Dr Carballo. <Rogelio Carballo P - Last Filed: 06/10/17 18:46> Results - Vital Signs Recent Vital Signs: Last Vital Signs Temp 97.3 F L 06/09/17 16:56 Pulse 72 06/09/17 16:56 Resp 20 06/09/17 16:56 BP 131/66 06/09/17 16:56 Pulse Ox 97 06/09/17 16:56 - Labs Result Diagrams: 06/08/17 05:30 06/08/17 05:30 Labs: Laboratory Results - last 24 hr 06/09/17 11:11 POC Glucose (mg/dL) 293 H Attending/Attestation - Attestation I have personally seen and examined this patient.: Yes I have fully participated in the care of the patient.: Yes I have reviewed all pertinent clinical information: Yes
--- NOTE | 2017-06-02 19:57 | CP.PCM.CON ---
History of Present Illness - History of Present Illness History of Present Illness: 87 year old male with PMH of ight foot necrotic ulcer with cellulitis, UTI with Enterococcus and Klebsiella, chronic renal failure, history of DVT, DM, metastatic Prostate CA, history of Enterococcus UTI, atrial fibrillation, S/P pacemaker and defibrillator placement, chronic CHF, COPD, hypothyroidism was initially admitted in [facility] because of blood clots in his urine and he was also found with UTI with resistant Klebsiella. He underwent cystoscopy and fulguration was done. He is now transferred to [facility] for continued medical therapy and physical rehabilitation. Infectious Diseases consult is requested to continue treatment of UTI. Currently the patient is comfortable in bed, denies fever or chills, no nausea or vomiting, no chest pain , no SOB, no cough or colds, has some abdominal pain but it has improved, headache or dizziness, no diarrhea. Review of Systems - Review of Systems All systems: reviewed and no additional remarkable complaints except (as per HPI ) Past Patient History - Infectious Disease Hx of Infectious Diseases: None - Tetanus Immunizations Tetanus Immunization: Unknown - Past Medical History & Family History Past Medical History?: Yes - Past Social History Smoking Status: Unknown If Ever Smoked - CARDIAC Hx Cardiac Disorders: Yes (ACS, CAD, CABG) Hx Congestive Heart Failure: Yes Hx Hypertension: Yes - PULMONARY Hx Chronic Obstructive Pulmonary Disease (COPD): Yes - NEUROLOGICAL Hx Neurological Disorder: No - HEENT Hx HEENT Problems: Yes ([place]) Hx Cataracts: Yes (WITH b/t SURGERY) Hx Glaucoma: Yes - RENAL Hx Renal Failure: Yes - ENDOCRINE/METABOLIC Hx Diabetes Mellitus Type 2: Yes Hx Hypothyroidism: Yes - HEMATOLOGICAL/ONCOLOGICAL Hx Blood Transfusions: Yes Hx Blood Transfusion Reaction: No - INTEGUMENTARY Other/Comment: multiple skin discolorations and tatoos both arms, multiple brown skin discolorations ble - MUSCULOSKELETAL/RHEUMATOLOGICAL Hx Arthritis: Yes - GASTROINTESTINAL Hx Gastrointestinal Disorders: No - GENITOURINARY/GYNECOLOGICAL Hx Genitourinary Disorders: Yes Hx Hematuria: Yes Hx Prostate Cancer: Yes Hx Reproductive Disorders: No - PSYCHIATRIC Hx Psychophysiologic Disorder: No Hx Emotional Abuse: No Hx Physical Abuse: No Hx Substance Use: No - SURGICAL HISTORY Hx Surgeries: Yes - ANESTHESIA Hx Anesthesia Reactions: No Hx Malignant Hyperthermia: No Meds Allergies/Adverse Reactions: Allergies Allergy/AdvReac Type Severity Reaction Status Date / Time Iodinated Contrast- Oral and Allergy ANAPHYLAXIS Verified 05/23/17 09:56 IV Dye levofloxacin [From Levaquin] Allergy ANAPHYLAXIS Verified 05/23/17 09:56 - Medications Medications: Current Medications Amiodarone HCl (Cordarone) 200 mg PO DAILY [facility] PRN Reason: Protocol Atorvastatin Calcium (Lipitor) 10 mg PO DIN [facility] PRN Reason: Protocol Calcium Carbonate (Oscal) 500 mg PO TID [facility] PRN Reason: Protocol Digoxin (Lanoxin) 0.125 mg PO 1400 [facility] PRN Reason: Protocol Docusate Sodium (Colace) 100 mg PO BID [facility] PRN Reason: Protocol Doxercalciferol (Hectorol) 0.5 mcg PO DAILY [facility] PRN Reason: Protocol Furosemide (Lasix) 40 mg PO BID [facility] PRN Reason: Protocol Ceftazidime/Avibactam 2.5 gm/ (Sodium Chloride) 100 mls @ 50 mls/hr IVPB Q8H [facility] PRN Reason: Protocol Stop: 06/02/17 07:59 Levalbuterol HCl (Xopenex) 0.63 mg IH [id number] [facility] PRN Reason: Protocol Levothyroxine Sodium (Synthroid) 100 mcg PO 0600 [facility] PRN Reason: Protocol Metoclopramide HCl (Reglan) 10 mg PO ONCE PRN; Protocol PRN Reason: Nausea/Vomiting Stop: 06/01/17 23:59 Montelukast Sodium (Singulair) 10 mg PO DAILY [facility] PRN Reason: Protocol Morphine Sulfate (Morphine) 4 mg IVP Q4H PRN; Protocol PRN Reason: Pain, severe (8-10) Ondansetron HCl (Zofran Inj) 4 mg IVP Q4H PRN; Protocol PRN Reason: Nausea/Vomiting Pantoprazole Sodium (Protonix Ec Tab) 40 mg PO 0600 [facility] PRN Reason: Protocol Phenazopyridine HCl (Pyridium) 200 mg PO Q8H [facility] PRN Reason: Protocol Polyethylene Glycol (Miralax) 17 gm PO BID [facility] PRN Reason: Protocol Prednisone (Prednisone Tab) 10 mg PO DAILY [facility] PRN Reason: Protocol Sodium Phosphate (Fleet Enema) 135 ml RC Q8H PRN; Protocol PRN Reason: Constipation Tramadol HCl (Ultram) 50 mg PO TID [facility] PRN Reason: Protocol Vancomycin HCl (Vancocin 25 Mg/Ml (Oral Use)) 125 mg PO QID [facility] PRN Reason: Protocol Physical Exam - Constitutional Appears: Non-toxic, No Acute Distress - Head Exam Head Exam: NORMAL INSPECTION - ENT Exam ENT Exam: Mucous Membranes Moist - Neck Exam Neck exam: Negative for: Lymphadenopathy, Meningismus - Respiratory Exam Respiratory Exam: Decreased Breath Sounds - Cardiovascular Exam Cardiovascular Exam: +S1, +S2 - GI/Abdominal Exam GI & Abdominal Exam: Soft. absent: Tenderness Results - Labs Result Diagrams: 06/02/17 06:30 Assessment & Plan - Assessment and Plan (Free Text) Plan: Assessment Systemic Inflammatory Response Syndrome in a patient who had hematuria S/P cystoscopy, fulguration and irrigation of the bladder, with sepsis from UTI with Carbapenem-resistant Klebsiella consider C. diff. associated diarrhea S/P lower urinary tract infection in a patient with indwelling Avendano catheter growing Carbapenem-resistant Klebsiella history of right foot necrotic ulcer with surrounding cellulitis UTI with Enterococcus and Klebsiella chronic renal failure history of DVT DM metastatic Prostate CA history of Enterococcus UTI chronic atrial fibrillation S/P pacemaker and ICD placement Plan continue Avycaz day 9 - should target 10-14 days of antibiotics will continue to monitor clinically
[2017-06-03] MEDS: Levalbuterol 0.63 MG/3 ML Inhal Soln UD IH SCH ×4 (01:28→20:10)
[2017-06-03] MEDS: Pantoprazole 40 mg EC Tab PO SCH (05:52)
[2017-06-03] MEDS: Levothyroxine 100 MCG TAB PO SCH (05:52)
--- NOTE | 2017-06-03 06:26 | CON ---
DATE OF CONSULTATION: 06/02/2017 LOCATION: The patient in room 319, bed 1. REASON FOR CONSULTATION: Coronary artery disease, status post AICD, CABG, angioplasties, hematuria, and pelvic area pain. HISTORY OF PRESENT ILLNESS: An 87-year-old male was admitted to medical floor with gross hematuria, pelvic area pain. The patient has CA of the prostate with metastasis. The patient is known to have coronary artery disease. The patient had PTCA before, coronary bypass surgery and also after coronary artery bypass surgery, the patient had multiple stents put in. He also has AICD inserted and about two to three months ago, AICD generator was changed. The patient known to have chronic renal insufficiency, CA of the prostate and indwelling Avendano catheter. The patient is on medical floor, has cystoscopy and fulguration of prostate at the bleeding site. The patient was also treated for anemia. The patient also developed fluid overload and had been given diuretics. The patient was admitted to transitional care unit for deconditioning and physical therapy. PAST MEDICAL HISTORY: Significant for COPD, CAD, CABG, stent insertion, PTCA prior to CABG and post CABG, AICD insertion, generator change two to three months ago, indwelling Avendano catheter, hematuria, anemia, prostate CA with metastasis, paroxysmal atrial fibrillation, history of DVT, one time patient was on Pradaxa, but it was held because of hematuria, history of non-STEMI, which was treated medically because of renal insufficiency. Recent cardiac workup was as follows: The patient had eco on 12/20/2016, which showed ejection fraction of 45%, moderate mitral regurgitation, [id number] tricuspid regurgitation, RV systolic pressure of 43 mmHg, which shows mild pulmonary hypertension. HOME MEDICATIONS: Include prednisone, Protonix, levothyroxine, Lasix, Lanoxin, Lipitor, amiodarone, tranexamic acid for hematuria. REVIEW OF SYSTEMS: All other systems are reviewed. Positive as mentioned in the history, others are negative. PERSONAL HISTORY: Denies smoking or drinking at the present time. PHYSICAL EXAMINATION: VITAL SIGNS: Blood pressure 132/62, respirations 18, pulse 60, and temperature 97.4. HEENT: Head is normocephalic. Eyes; pupils normal. Conjunctivae slightly pale. Nose and throat normal. NECK: JVP low. Carotids equal. Thorax; AP diameter normal. LUNGS: Clear. CARDIOVASCULAR: S1 and S2. ABDOMEN: Soft and nontender. No organomegaly. EXTREMITIES: The patient has some edema on the legs, but no clubbing, no cyanosis. LABORATORY DATA: Lab shows WBC 12.2, hemoglobin 9.7, hematocrit 31.5, and platelets 282. Sodium 135, potassium 4.1, BUN 34, creatinine 1.2, random sugar 125, and calcium 7.7. AST 57, ALT 60, and total protein low at 5.4. EKG showed ventricular pacemaker rhythm. DIAGNOSES: Coronary artery disease, status post coronary bypass surgery, status post multiple stents prior to bypass surgery and after bypass surgery, status post mitral valve repair, history of prostate cancer with metastasis, hematuria, indwelling catheter, status post cystoscopy and fulguration of prostate at the bleeding site, anemia, left ventricular dysfunction, automatic implantable cardioverter-defibrillator insertion, status post battery change of automatic implantable cardioverter-defibrillator two to three months ago, fluid overload, and history of renal dysfunction. PLAN: The patient clinically denies any chest pain, shortness of breath or palpitation. The patient getting IV antibiotics, amiodarone 200 mg daily, insulin, and digoxin 0.125 daily. The patient got IV Lasix 40 mg today extra dose, he is also getting 40 mg p.o. b.i.d., Lipitor 10 mg daily, Os-Pedro 500 mg t.i.d, prednisone 10 mg daily, Protonix 40 mg daily, Pyridium 200 mg p.o. t.i.d., Singulair 10 mg p.o. daily, Synthroid 100 mcg p.o. daily, vancomycin 125 mg p.o. q.i.d. for C. difficile positive. We will continue present therapy. Continue physical therapy. We will follow with you. Mely Walters MD
[2017-06-03] MEDS: Insulin Human NPH/Reg 70/30 Vial(3 ml) SC SCH ×4 (07:50→21:30)
[2017-06-03] MEDS ORDERED: metOLazone 5 MG TAB PO ONE (08:23)
--- NOTE | 2017-06-03 10:46 | PN ---
LOCATION: This patient is in the transitional care unit in 319, bed 1. SUBJECTIVE: The patient was admitted for rehabilitation, continued medical management. The patient had a procedure for hematuria. He has past history of congestive heart failure, chronic obstructive lung disease, diabetes mellitus, hypothyroidism. The patient is currently feeling better. He has swelling of his leg and he complains about it and his urine seemed to be clear at this time excepting for discoloration associated with Pyridium treatment. PHYSICAL EXAMINATION: VITAL SIGNS: This morning, the pulse is 60, blood pressure 132/62, respirations are 18, and O2 saturation is 97% on room air. The patient's temperature is 97.4. LUNGS: There are crepitations bilaterally scattered. HEART: Normal sinus rhythm. The patient has a cardiac pacemaker. ABDOMEN: Soft; there is diffuse tenderness, but no localizing signs. CENTRAL NERVOUS SYSTEM: No deficits are noted neurologically. MEDICATIONS: The patient's medications consist of the ceftazidime/avibactam, the antibiotics. The patient is to continue with this medicine for a total of 10 days. The patient's other medications are continued as before. The patient's diet is heart healthy diabetic diet. The patient is covered by insulin for diabetes and we will give him a dose of Zaroxolyn today at 2.5 mg and hope that diuresis will be accelerated, and we will follow up on his edema tomorrow. Giselle Polk MD ANNABELLA
[2017-06-03] MEDS: POLYETHYLENE GLYCOL 3350 17 GM/Dose PACKET PO SCH ×2 (10:58→17:18)
[2017-06-03] MEDS: Vancomycin 25 MG/ML PO SCH ×4 (11:00→21:23)
[2017-06-03] MEDS: Digoxin 125 mcg (0.125 mg) Tab PO SCH (14:30)
--- NOTE | 2017-06-03 18:03 | PN ---
DATE: 06/03/2017 REASON FOR CONSULTATION: Followup coronary artery disease, status post AICD, CABG, angioplasties, hematuria, and swelling of the leg. SUBJECTIVE: The patient feels much better. No shortness of breath, but complains of leg swelling. OBJECTIVE: GENERAL: Not in apparent distress, walking with walker. VITAL SIGNS: Temperature afebrile, heart rate 70, blood pressure 135/62. HEENT: PERRLA. Extraocular muscles are intact. NECK: Supple. No carotid bruits or thyromegaly. CHEST: Clear to auscultation. HEART: S1 and S2 regular. ABDOMEN: Soft. EXTREMITIES: Clubbing and cyanosis negative. LABORATORY DATA: Blood workup as follow: Chemistry, sodium 135, potassium 4.1, chloride 95, carbon dioxide 32, anion gap of 12, BUN 30, creatinine 1.2, random sugar 125, calcium is 7.7. IMPRESSION: Hematuria, prostate cancer with metastasis, acute kidney injury on chronic renal insufficiency, swelling of the leg, cardiomyopathy, history of automatic implantable cardioverter-defibrillator, history of coronary artery bypass graft, history of pre and post coronary artery bypass graft, previously ejection fraction 45%, status post generator change. Recent cardiac echo shows, 12/20/2016, 45% moderate mitral regurgitation, [id number] tricuspid regurgitation, RV systolic pressure of 43. RECOMMENDATION: Continue dig. Continue amiodarone, Lasix. We will continue Lipitor, Singulair. Lasix was started b.i.d. The patient has a history of chronic renal insufficiency, baseline creatinine of 1.4, 1.5. When the patient becomes euvolemic, then go into CHF, apparent to be a little bit on dryer side with a creatinine of 1.3 and 1.4, so we will give extra dose of Lasix, increased by Dr. Polk b.i.d., and Zaroxolyn was also added this morning. We will follow the electrolytes tomorrow with magnesium and CBC. We will also get a uric acid to assist euvolemic state. Thank you Dr. Polk for providing the opportunity in taking care of the patient. Mely Chavarria MD
--- NOTE | 2017-06-03 20:30 | PN ---
DATE: 06/03/2017 SUBJECTIVE: The patient is in bed, no acute distress, nontoxic. PHYSICAL EXAMINATION: VITAL SIGNS: Temperature is 97, blood pressure is 159/70, respiratory rate of 16. HEENT: Unremarkable. NECK: Supple. LUNGS: Decreased breath sounds. HEART: Normal S1 and S2. ABDOMEN: Soft and nontender. LABORATORY DATA: Reveals a BUN of 34, creatinine of 1.2. MEDICATIONS: Review of orders reveals the patient to be on Avycaz, which is a combination of cefatrizine and avibactam, the dose of 2.5 grams and 2.8 and the patient is also on prednisone. The patient is on p.o. vancomycin. ASSESSMENT AND PLAN: This is an 87-year-old male with a right foot necrotic ulcer and cellulitis, and urinary tract infection with enterococcus and Klebsiella and chronic renal failure, history of deep venous thrombosis, history of enterococcus urinary tract infection, atrial fibrillation, pacemaker and defibrillator, and congestive heart disease, chronic obstructive lung disease, hypothyroidism, and currently on Avycaz day #10 with complete 10 to 14 days of antibiotics in a patient with SIRs, systemic inflammatory response syndrome and hematuria status post cystoscopy, fulguration, irrigation of the bladder with sepsis with carbapenem resistant Klebsiella and we will follow up closely with you in this patient with metastatic prostate cancer. Elliot Hernandez MD
--- NOTE | 2017-06-03 23:13 | PN ---
DATE OF VISIT: 06/03/2017 This is Ziggy Perry's visit on TCU. For Dr. Carballo. SUBJECTIVE: The patient is an 87-year-old male seen sitting up in bed having nebulizer treatments with good effect. Reports that he is now status post procedure with Dr. Louise with good results as his urine has been mostly clear except for a tinge from Pyridium, orangish tinge. With this, the patient also reports that he has a left heel possible eschar developing, consult with Dr. Couch recommended for him. He is, otherwise, reporting his appetite is better and his pain is significantly improved. He is known to have suffered from prostate CA, stage IV with extensive retroperitoneal lymphadenopathy and is on amiodarone as per his snag grinder. He is here for deconditioning. OBJECTIVE: VITAL SIGNS: Temperature 97.6, pulse 70, respirations 16, blood pressure 135/62, pulse ox 97%. HEENT: Unremarkable. NECK: Supple. HEART: Regular rate, occasional ectopic beat. LUNGS: Occasional rhonchi. ABDOMEN: Soft and nontender with Avendano in situ with Pyridium discolored orangish urine. No blood appreciated. EXTREMITIES: +1 edema with eschar on the left greater than right heels. SKIN: Otherwise, warm, dry, and clear. LABORATORY DATA: Labs were not done while on the TCU floor; however, they were done two days prior with white blood cell count of 12.2, hemoglobin 9.7, hematocrit 31.5, platelet count of 286,000. We will ask for this to be done tomorrow. His chem panel showed a non-fasting glucose of 162 with repeat fingerstick today at 326, calcium 7.7 with, otherwise, normal chem-7. We will repeat labs in the morning. ASSESSMENT: The assessment for this patient is that of deconditioning; hematuria secondary to stage IV prostate carcinoma, status post stenting by Dr. Louise; cardiac dysrhythmia, on amiodarone with discontinuation of tranexamic acid recently. Also, his heel eschars and ulcers, we will ask for consult with Dr. Couch. The patient is also noted to have pacer and defibrillator, to be followed by his snag grinder. We will check labs in the morning. Prognosis for this patient is guarded. Aram MD [facility] # [id number]
--- NOTE | 2017-06-03 23:48 | CON ---
DATE: 06/02/2017 REASON FOR CONSULTATION: Lower extremity edema, dyspnea on exertion and hypertension. HISTORY OF PRESENT ILLNESS: An 87-year-old male well known to me from multiple evaluation was admitted to the medical side with recurrent hematuria, UTI, urinary retention, history of prostate cancer, acute kidney injury and anemia. The patient was treated with CBI, he had cystoscopy and fulguration of bladder wall, resolution of his acute kidney injury. He is now in the transitional care unit. He has complaining of lower extremity edema. Difficulty walking. He is also complaining of some shortness of breath. He is also complaining of some cough. He denies any fever. He denies any chills. He denies any chest pain. PAST MEDICAL AND SURGICAL HISTORY: NIDDM, hypertension, CAD, CHF, it is a prostate cancer with mets, long-term Avendano, recurrent hematuria, recurrent episodes of acute kidney injury, recurrent UTI. FAMILY HISTORY: Noncontributory. SOCIAL HISTORY: No smoking. No alcohol use. No IV drug abuse. ALLERGIES: IODINE AND LEVAQUIN. CURRENT MEDICATIONS: Avibactam, Colace, amiodarone, Hectorol, digoxin, Lasix 40 p.o. b.i.d., Lipitor 10, morphine, Os-Pedro, Protonix, Pyridium, Singulair, Synthroid, Tramadol, vancomycin p.o., Xopenex and Zofran. REVIEW OF SYSTEMS: All systems are reviewed. Pertinent positive as mentioned in the history of present illness, rest systems are unremarkable. PHYSICAL EXAMINATION: GENERAL: Elderly male sitting in chair in mild distress. VITAL SIGNS: Blood pressure 132/62, heart rate 60, respiratory rate 18 and temperature 97.4. HEENT: Normocephalic and atraumatic. Positive pallor. NECK: Supple. No JVD. LUNGS: Bilateral equal air entry, bilateral rhonchi. CARDIAC: S1 and S2. Regular rate and rhythm. No murmur, no rub. ABDOMEN: Obese, distended, soft, tenderness in the lower abdomen. EXTREMITIES: extremities, shiny skin. LABORATORY DATA: Sodium 135, potassium 4.1, chloride 95, CO2 of 32, BUN 34, creatinine 1.2, glucose 125 and calcium is 7.7. ASSESSMENT: 1. Lower extremity edema/volume overload. 2. Decompensated congestive heart failure. 3. Stable chronic kidney disease stage III. 4. Resolved acute kidney injury. 5. Metastatic prostate cancer/recurrent hematuria/urinary retention now status post cystoscopy and fulguration of the bladder wall. PLAN: 1. Lasix 40 mg IV push x1 dose. 2. Continue Lasix 40 p.o. b.i.d. 3. Daily weight. 4. Daily electrolyte. 5. Physical therapy. 6. Complete antibiotic for resistant urinary tract infection as per infectious disease recommendation. Thank you for the courtesy of this consultation. We will follow this patient closely with you. Marianne Lozano MD
--- NOTE | 2017-06-04 01:13 | PN ---
DATE: 06/03/2017 SUBJECTIVE: Patient is seen sitting in bed. He is awake, he is alert, he is comfortable. He denies any pain. He denies any shortness of breath. PHYSICAL EXAMINATION GENERAL: Elderly male sitting in bed. VITAL SIGNS: Blood pressure 137/62, heart rate 60, respiratory rate 20, temperature 98. HEENT: Normocephalic, atraumatic. NECK: Supple. No JVD. LUNGS: Bilaterally good air entry. Bilateral rhonchi. CARDIAC: S1 and S2. Regular rate and rhythm. No murmur, no rub. ABDOMEN: Obese, distended, soft, nontender, bowel sounds present. EXTREMITIES: 1+ pitting edema of the lower extremities. INTAKE AND OUTPUT: Not charted. LABORATORY DATA: No new labs. CURRENT MEDICATIONS: Avibactam, Colace, Cordarone, enema, Hectorol, digoxin, Lasix 40 p.o. b.i.d., Lipitor, MiraLax, morphine, Os-Pedro, prednisone, Protonix, Pyridium, Singulair, Synthroid, p.o. vancomycin, Ultram, Xopenex. ASSESSMENT: 1. Resolved acute kidney injury. 2. Congestive heart failure. 3. Volume overload. 4. Prostate cancer with metastasis. 5. Hematuria. 6. Urinary retention. PLAN: 1. Monitor daily weights. 2. Continue to diurese. 3. Monitor electrolytes. 4. Continue physical therapy. 5. Continue antihypertensives. Marianne Lozano MD
[2017-06-04] MEDS: Levalbuterol 0.63 MG/3 ML Inhal Soln UD IH SCH ×4 (02:25→20:40)
[2017-06-04] MEDS: Levothyroxine 100 MCG TAB PO SCH (06:03)
[2017-06-04] MEDS: Pantoprazole 40 mg EC Tab PO SCH (06:03)
[2017-06-04 06:52] LABS: BASO # 0.02 K/mm3 (0.0-2.0); BASO % 0.1 % (0.0-3.0); EOS # 0.2 (0.0-0.7); EOS % 1.2 % (1.5-5.0); GRAN # 11.7 (1.4-6.5); GRAN % 81.2 % (50.0-68.0); HEMATOCRIT 30.8 % (42.0-52.0); LYMPH # 1.6 (1.2-3.4); MEAN CORPUSCULAR HEMOGLOBIN 27.2 pg (25.0-35.0); MEAN CORPUSCULAR HGB CONC 30.5 g/dl (31.0-37.0); MEAN PLATELET VOLUME 9.3 fl (7.0-11.0); MONO # 0.9 (0.1-0.6); MONO % 6.5 % (1.0-6.0); RED CELL DISTRIBUTION WIDTH 15.8 % (11.5-14.5); WHITE BLOOD COUNT 14.4 10^3/ul (4.5-11.0)
[2017-06-04 07:05] LABS: ALB/GLOB RATIO 1.2 (1.1-1.8); ALKALINE PHOSPHATASE 136 U/L (38-133); ALT/SGPT 55 U/L (7-56); AST/SGOT 51 U/L (15-59); BILIRUBIN,TOTAL 0.6 mg/dL (0.2-1.3); BLOOD UREA NITROGEN 29 mg/dL (7-21); CALCIUM 8.2 mg/dL (8.4-10.5); CARBON DIOXIDE 33 mmol/L (21-33); CHLORIDE 95 mmol/L (98-107); GFR AFRICAN-AMERICAN > 60; GLUCOSE,RANDOM 90 mg/dL (70-110); MAGNESIUM 2.4 mg/dL (1.7-2.2); PHOSPHOROUS 3.2 mg/dL (2.5-4.5); SODIUM 135 mmol/L (132-148); TOTAL PROTEIN 5.6 g/dL (5.8-8.3); URIC ACID 5.6 mg/dL (3.5-8.5)
[2017-06-04] MEDS: Insulin Human NPH/Reg 70/30 Vial(3 ml) SC SCH ×4 (07:35→21:34)
--- NOTE | 2017-06-04 08:33 | CP.PCM.PN ---
Subjective - Date & Time of Evaluation Date of Evaluation: 06/04/17 Time of Evaluation: 07:30 - Subjective Subjective: Patient is seen this morning. He is complaining of heel pain both feet. Objective - Vital Signs/Intake and Output Vital Signs (last 24 hours): Temp Pulse Resp BP Pulse Ox 98.0 F 60 20 137/62 97 06/03/17 15:55 06/03/17 15:55 06/03/17 15:55 06/03/17 17:18 06/03/17 09:55 Intake and Output: 06/04/17 06/04/17 06:59 18:59 Output Total 3950 Balance -3950 - Medications Medications: Current Medications Amiodarone HCl (Cordarone) 200 mg PO DAILY [facility] PRN Reason: Protocol Last Admin: 06/03/17 10:53 Dose: 200 mg Atorvastatin Calcium (Lipitor) 10 mg PO DIN [facility] PRN Reason: Protocol Last Admin: 06/03/17 17:17 Dose: 10 mg Calcium Carbonate (Oscal) 500 mg PO TID [facility] PRN Reason: Protocol Last Admin: 06/03/17 17:18 Dose: 500 mg Digoxin (Lanoxin) 0.125 mg PO 1400 [facility] PRN Reason: Protocol Last Admin: 06/03/17 14:30 Dose: 0.125 mg Docusate Sodium (Colace) 100 mg PO BID [facility] PRN Reason: Protocol Last Admin: 06/03/17 17:17 Dose: 100 mg Doxercalciferol (Hectorol) 0.5 mcg PO DAILY [facility] PRN Reason: Protocol Last Admin: 06/03/17 10:54 Dose: 0.5 mcg Furosemide (Lasix) 40 mg PO BID [facility] PRN Reason: Protocol Last Admin: 06/03/17 17:18 Dose: 40 mg Ceftazidime/Avibactam 2.5 gm/ (Sodium Chloride) 100 mls @ 50 mls/hr IVPB Q8H [facility] PRN Reason: Protocol Stop: 06/06/17 22:01 Last Admin: 06/04/17 06:01 Dose: 50 mls/hr Levalbuterol HCl (Xopenex) 0.63 mg IH [id number] [facility] PRN Reason: Protocol Last Admin: 06/04/17 07:30 Dose: 0.63 mg Levothyroxine Sodium (Synthroid) 100 mcg PO 0600 [facility] PRN Reason: Protocol Last Admin: 06/04/17 06:03 Dose: 100 mcg Montelukast Sodium (Singulair) 10 mg PO DAILY [facility] PRN Reason: Protocol Last Admin: 06/03/17 10:59 Dose: 10 mg Morphine Sulfate (Morphine) 4 mg IVP Q4H PRN; Protocol PRN Reason: Pain, severe (8-10) Ondansetron HCl (Zofran Inj) 4 mg IVP Q4H PRN; Protocol PRN Reason: Nausea/Vomiting Last Admin: 06/03/17 06:56 Dose: 4 mg Pantoprazole Sodium (Protonix Ec Tab) 40 mg PO 0600 [facility] PRN Reason: Protocol Last Admin: 06/04/17 06:03 Dose: 40 mg Phenazopyridine HCl (Pyridium) 200 mg PO 0000,0800,1600 [facility] PRN Reason: Protocol Last Admin: 06/04/17 08:23 Dose: 200 mg Polyethylene Glycol (Miralax) 17 gm PO BID [facility] PRN Reason: Protocol Last Admin: 06/03/17 17:18 Dose: 17 gm Prednisone (Prednisone Tab) 10 mg PO DAILY [facility] PRN Reason: Protocol Last Admin: 06/03/17 10:59 Dose: 10 mg Sodium Phosphate (Fleet Enema) 135 ml RC Q8H PRN; Protocol PRN Reason: Constipation Tramadol HCl (Ultram) 50 mg PO TID [facility] PRN Reason: Protocol Last Admin: 06/03/17 17:14 Dose: Not Given Vancomycin HCl (Vancocin 25 Mg/Ml (Oral Use)) 125 mg PO QID [facility] PRN Reason: Protocol Last Admin: 06/03/17 21:23 Dose: 125 mg - Labs Labs: 06/04/17 06:17 06/04/17 06:17 - Constitutional Appears: No Acute Distress - Head Exam Head Exam: ATRAUMATIC, NORMOCEPHALIC - Cardiovascular Exam Cardiovascular Exam: +S1, +S2 - GI/Abdominal Exam GI & Abdominal Exam: Soft, Normal Bowel Sounds. absent: Tenderness - Extremities Exam Extremities Exam: Pedal Edema - Neurological Exam Neurological Exam: Alert, Awake, Oriented x3 Assessment and Plan - Assessment and Plan (Free Text) Assessment: Deconditioning Gait dysfunction Heel pain Chronic heart failure COPD Arthritis Hypothyroidism CAD Cardiac arrhythmia Plan: Patient is feeling better. He does has some heel pain and there are black scabs over the heel area. Podiatry with Dr. Couch has been consulted. Urine is orange secondary to pyridium, no blood seen in urine. He is currently off bladder irrigation. continue insulin. continue physical therapy
[2017-06-04] MEDS: POLYETHYLENE GLYCOL 3350 17 GM/Dose PACKET PO SCH ×2 (10:27→18:30)
[2017-06-04] MEDS: Vancomycin 25 MG/ML PO SCH ×4 (10:28→21:38)
--- NOTE | 2017-06-04 14:32 | CP.PCM.CON ---
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 Patient states that his heels are very tender to the touch. He states that he got offloading boots yesterday but doesnt like wearing them because his feet get hot. He states that he sees foreign diplomat Dr. Lawrence as an outpatient. Denies any n/v/f/c/ sob/cp. Past Patient History - Infectious Disease Hx of Infectious Diseases: None - Tetanus Immunizations Tetanus Immunization: Unknown - Past Medical History & Family History Past Medical History?: Yes - Past Social History Smoking Status: Unknown If Ever Smoked - CARDIAC Hx Cardiac Disorders: Yes (ACS, CAD, CABG) Hx Congestive Heart Failure: Yes Hx Hypertension: Yes - PULMONARY Hx Chronic Obstructive Pulmonary Disease (COPD): Yes - NEUROLOGICAL Hx Neurological Disorder: No - HEENT Hx HEENT Problems: Yes (umatilla tribe) Hx Cataracts: Yes (WITH b/t SURGERY) Hx Glaucoma: Yes - RENAL Hx Renal Failure: Yes - ENDOCRINE/METABOLIC Hx Diabetes Mellitus Type 2: Yes Hx Hypothyroidism: Yes - HEMATOLOGICAL/ONCOLOGICAL Hx Blood Transfusions: Yes Hx Blood Transfusion Reaction: No - INTEGUMENTARY Other/Comment: multiple skin discolorations and tatoos both arms, multiple brown skin discolorations ble - MUSCULOSKELETAL/RHEUMATOLOGICAL Hx Arthritis: Yes - GASTROINTESTINAL Hx Gastrointestinal Disorders: No - GENITOURINARY/GYNECOLOGICAL Hx Genitourinary Disorders: Yes Hx Hematuria: Yes Hx Prostate Cancer: Yes Hx Reproductive Disorders: No - PSYCHIATRIC Hx Psychophysiologic Disorder: No Hx Emotional Abuse: No Hx Physical Abuse: No Hx Substance Use: No - SURGICAL HISTORY Hx Surgeries: Yes - ANESTHESIA Hx Anesthesia Reactions: No Hx Malignant Hyperthermia: No Meds Allergies/Adverse Reactions: Allergies Allergy/AdvReac Type Severity Reaction Status Date / Time Iodinated Contrast- Oral and Allergy ANAPHYLAXIS Verified 05/23/17 09:56 IV Dye levofloxacin [From Levaquin] Allergy ANAPHYLAXIS Verified 05/23/17 09:56 - Medications Medications: Current Medications Amiodarone HCl (Cordarone) 200 mg PO DAILY [facility] PRN Reason: Protocol Last Admin: 06/04/17 10:26 Dose: Not Given Atorvastatin Calcium (Lipitor) 10 mg PO DIN [facility] PRN Reason: Protocol Last Admin: 06/03/17 17:17 Dose: 10 mg Calcium Carbonate (Oscal) 500 mg PO TID [facility] PRN Reason: Protocol Last Admin: 06/04/17 10:27 Dose: 500 mg Digoxin (Lanoxin) 0.125 mg PO 1400 [facility] PRN Reason: Protocol Last Admin: 06/03/17 14:30 Dose: 0.125 mg Docusate Sodium (Colace) 100 mg PO BID [facility] PRN Reason: Protocol Last Admin: 06/04/17 10:24 Dose: 100 mg Doxercalciferol (Hectorol) 0.5 mcg PO DAILY [facility] PRN Reason: Protocol Last Admin: 06/04/17 10:26 Dose: 0.5 mcg Furosemide (Lasix) 40 mg PO BID [facility] PRN Reason: Protocol Last Admin: 06/04/17 10:26 Dose: 40 mg Ceftazidime/Avibactam 2.5 gm/ (Sodium Chloride) 100 mls @ 50 mls/hr IVPB Q8H [facility] PRN Reason: Protocol Stop: 06/06/17 22:01 Last Admin: 06/04/17 06:01 Dose: 50 mls/hr Levalbuterol HCl (Xopenex) 0.63 mg IH [id number] [facility] PRN Reason: Protocol Last Admin: 06/04/17 13:43 Dose: 0.63 mg Levothyroxine Sodium (Synthroid) 100 mcg PO 0600 [facility] PRN Reason: Protocol Last Admin: 06/04/17 06:03 Dose: 100 mcg Lidocaine (Lidoderm) 1 ea TD DAILY [facility] Montelukast Sodium (Singulair) 10 mg PO DAILY [facility] PRN Reason: Protocol Last Admin: 06/04/17 10:28 Dose: 10 mg Morphine Sulfate (Morphine) 4 mg IVP Q4H PRN; Protocol PRN Reason: Pain, severe (8-10) Ondansetron HCl (Zofran Inj) 4 mg IVP Q4H PRN; Protocol PRN Reason: Nausea/Vomiting Last Admin: 06/03/17 06:56 Dose: 4 mg Pantoprazole Sodium (Protonix Ec Tab) 40 mg PO 0600 [facility] PRN Reason: Protocol Last Admin: 06/04/17 06:03 Dose: 40 mg Phenazopyridine HCl (Pyridium) 200 mg PO 0000,0800,1600 [facility] PRN Reason: Protocol Last Admin: 06/04/17 08:23 Dose: 200 mg Polyethylene Glycol (Miralax) 17 gm PO BID [facility] PRN Reason: Protocol Last Admin: 06/04/17 10:27 Dose: 17 gm Prednisone (Prednisone Tab) 10 mg PO DAILY [facility] PRN Reason: Protocol Last Admin: 06/04/17 10:27 Dose: 10 mg Sodium Phosphate (Fleet Enema) 135 ml RC Q8H PRN; Protocol PRN Reason: Constipation Tramadol HCl (Ultram) 50 mg PO TID [facility] PRN Reason: Protocol Last Admin: 06/04/17 10:24 Dose: Not Given Vancomycin HCl (Vancocin 25 Mg/Ml (Oral Use)) 125 mg PO QID [facility] PRN Reason: Protocol Last Admin: 06/04/17 10:28 Dose: 125 mg Physical Exam - Constitutional Appears: Non-toxic, No Acute Distress - Extremities Exam Additional comments: Lower extremity focused exam: Vasc: DP and PT pulses non-palpable due to pitting edema. Skin temperature warm to warm from proximal to distal b/l. Neuro: Gross sensation decreased b/l. Ortho: Tenderness on palpation to heels b/l. Derm: Deep tissue injuries noted to heels b/l with the left greater than the right. No open lesions, no drainage, no purlence noted. - Neurological Exam Neurological exam: Alert, Oriented x3 - Psychiatric Exam Psychiatric exam: Normal Affect, Normal Mood Results - Vital Signs Recent Vital Signs: Last Vital Signs Temp 98.0 F 06/03/17 15:55 Pulse 60 06/03/17 15:55 Resp 20 06/03/17 15:55 BP 126/59 L 06/04/17 10:26 Pulse Ox 97 06/03/17 09:55 - Labs Result Diagrams: 06/04/17 06:17 06/04/17 06:17 Labs: Laboratory Results - last 24 hr 06/03/17 06/03/17 06/04/17 16:49 21:28 05:18 WBC RBC Hgb Hct MCV MCH MCHC RDW Plt Count MPV Gran % Lymph % (Auto) [place] % (Auto) Eos % (Auto) Baso % (Auto) Gran # Lymph # [place] # Eos # Baso # Sodium Potassium Chloride Carbon Dioxide Anion Gap BUN Creatinine Est GFR ( Amer) Est GFR (Non-Af Amer) POC Glucose (mg/dL) 321 H 313 H 102 Random Glucose Uric Acid Calcium Phosphorus Magnesium Total Bilirubin AST ALT Alkaline Phosphatase Total Protein Albumin Globulin Albumin/Globulin Ratio 06/04/17 06/04/17 06/04/17 06:17 06:17 11:20 WBC 14.4 H RBC 3.46 L Hgb 9.4 L Hct 30.8 L MCV 89.0 MCH 27.2 MCHC 30.5 L RDW 15.8 H Plt Count 351 MPV 9.3 Gran % 81.2 H Lymph % (Auto) 11.0 L [place] % (Auto) 6.5 H Eos % (Auto) 1.2 L Baso % (Auto) 0.1 Gran # 11.70 H Lymph # 1.6 [place] # 0.9 H Eos # 0.2 Baso # 0.02 Sodium 135 Potassium 4.0 Chloride 95 L Carbon Dioxide 33 Anion Gap 11 BUN 29 H Creatinine 1.2 Est GFR ( Amer) > 60 Est GFR (Non-Af Amer) 57 POC Glucose (mg/dL) 203 H Random Glucose 90 Uric Acid 5.6 Calcium 8.2 L Phosphorus 3.2 Magnesium 2.4 H Total Bilirubin 0.6 AST 51 ALT 55 Alkaline Phosphatase 136 H Total Protein 5.6 L Albumin 3.1 Globulin 2.6 Albumin/Globulin Ratio 1.2 Assessment & Plan - Assessment and Plan (Free Text) Assessment: 87 year old male with DTI to heels b/l L>R Plan: patient examined and evaluated discussed in detail with attending, Dr Glass labs, chart, vitals reviewed heels dressed with ABD, kerlix offloading boots applied to feet b/l stressed the importance of wearing offloading boots at all times while in bed podiatry will continue to follow patient while in house <Kendrick Glass - Last Filed: 06/06/17 11:56> Meds - Medications Medications: Current Medications Amiodarone HCl (Cordarone) 200 mg PO DAILY [facility] PRN Reason: Protocol Last Admin: 06/06/17 09:57 Dose: 200 mg Atorvastatin Calcium (Lipitor) 10 mg PO DIN [facility] PRN Reason: Protocol Last Admin: 06/05/17 18:48 Dose: 10 mg Calcium Carbonate (Oscal) 500 mg PO TID [facility] PRN Reason: Protocol Last Admin: 06/06/17 09:59 Dose: 500 mg Digoxin (Lanoxin) 0.125 mg PO 1400 [facility] PRN Reason: Protocol Last Admin: 06/05/17 18:45 Dose: 0.125 mg Docusate Sodium (Colace) 100 mg PO BID [facility] PRN Reason: Protocol Last Admin: 06/06/17 09:56 Dose: 100 mg Doxercalciferol (Hectorol) 0.5 mcg PO DAILY [facility] PRN Reason: Protocol Last Admin: 06/06/17 09:58 Dose: 0.5 mcg Furosemide (Lasix) 40 mg PO BID [facility] PRN Reason: Protocol Last Admin: 06/05/17 18:46 Dose: 40 mg Furosemide (Lasix) 40 mg IV DAILY [facility] Last Admin: 06/06/17 10:02 Dose: 40 mg Ceftazidime/Avibactam 2.5 gm/ (Sodium Chloride) 100 mls @ 50 mls/hr IVPB Q8H [facility] PRN Reason: Protocol Stop: 06/08/17 22:01 Last Admin: 06/06/17 06:06 Dose: 50 mls/hr Levalbuterol HCl (Xopenex) 0.63 mg IH [id number] [facility] PRN Reason: Protocol Last Admin: 06/06/17 07:19 Dose: 0.63 mg Levothyroxine Sodium (Synthroid) 100 mcg PO 0600 [facility] PRN Reason: Protocol Last Admin: 06/06/17 06:09 Dose: 100 mcg Lidocaine (Lidoderm) 1 ea TD DAILY [facility] Last Admin: 06/06/17 09:59 Dose: 1 ea Montelukast Sodium (Singulair) 10 mg PO DAILY [facility] PRN Reason: Protocol Last Admin: 06/06/17 09:59 Dose: 10 mg Morphine Sulfate (Morphine) 4 mg IVP Q4H PRN; Protocol PRN Reason: Pain, severe (8-10) Ondansetron HCl (Zofran Inj) 4 mg IVP Q4H PRN; Protocol PRN Reason: Nausea/Vomiting Last Admin: 06/03/17 06:56 Dose: 4 mg Pantoprazole Sodium (Protonix Ec Tab) 40 mg PO 0600 [facility] PRN Reason: Protocol Last Admin: 06/06/17 06:09 Dose: 40 mg Phenazopyridine HCl (Pyridium) 200 mg PO 0000,0800,1600 [facility] PRN Reason: Protocol Last Admin: 06/06/17 08:31 Dose: 200 mg Polyethylene Glycol (Miralax) 17 gm PO BID [facility] PRN Reason: Protocol Last Admin: 06/06/17 09:59 Dose: Not Given Prednisone (Prednisone Tab) 10 mg PO DAILY [facility] PRN Reason: Protocol Last Admin: 06/06/17 09:59 Dose: Not Given Sodium Phosphate (Fleet Enema) 135 ml RC Q8H PRN; Protocol PRN Reason: Constipation Tramadol HCl (Ultram) 50 mg PO TID [facility] PRN Reason: Protocol Last Admin: 06/06/17 10:01 Dose: 50 mg Vancomycin HCl (Vancocin 25 Mg/Ml (Oral Use)) 125 mg PO QID [facility] PRN Reason: Protocol Last Admin: 06/06/17 10:02 Dose: 125 mg Results - Vital Signs Recent Vital Signs: Last Vital Signs Temp 98.0 F 06/06/17 06:00 Pulse 72 06/06/17 09:57 Resp 95 H 06/06/17 06:00 BP 144/72 06/06/17 10:02 Pulse Ox 95 06/05/17 17:13 - Labs Result Diagrams: 06/04/17 06:17 06/05/17 06:30 Labs: Laboratory Results - last 24 hr 06/05/17 06/05/17 06/05/17 11:42 16:26 21:54 POC Glucose (mg/dL) 154 H 77 251 H 06/06/17 05:01 POC Glucose (mg/dL) 78 Attending/Attestation - Attestation I have personally seen and examined this patient.: Yes I have fully participated in the care of the patient.: Yes I have reviewed all pertinent clinical information: Yes
[2017-06-04] MEDS: Digoxin 125 mcg (0.125 mg) Tab PO SCH (15:18)
[2017-06-04] MEDS: Lidocaine 5% Patch TD SCH (15:19)
--- NOTE | 2017-06-04 17:17 | PN ---
DATE: 06/04/2017 SUBJECTIVE: The patient is in bed, in no acute distress, nontoxic. PHYSICAL EXAMINATION VITAL SIGNS: Temperature is 98, blood pressure is 120/70 and respiratory rate of 16. HEENT: Unremarkable. NECK: Supple. LUNGS: Decreased breath sounds. HEART: Normal S1 and S2. ABDOMEN: Soft and nontender. LABORATORY DATA: Reveal a white count of 14,000, hemoglobin of 9, BUN of 29 and creatinine of 1.2. ASSESSMENT AND PLAN: This is an 87-year-old male with right foot necrotic ulcer and cellulitis and urinary tract infection with Enterococcus and Klebsiella, chronic renal failure, history of deep venous thrombosis, history of Enterococcus urinary tract infection, atrial fibrillation, pacemaker and defibrillator and currently on Avycaz, day #11, will complete [address] Polk's note is reviewed. Elliot Hernandez MD
--- NOTE | 2017-06-04 17:20 | PN ---
DATE: 06/04/2017 REASON FOR CONSULTATION: Followup for coronary artery disease, status post AICD, CABG, multiple angioplasties, hematuria, and swelling of the leg. SUBJECTIVE: The patient feels better. No shortness of breath. No chest pain. PHYSICAL EXAMINATION: GENERAL: Not in apparent distress, sitting at the bedside and using lotion on the face. VITAL SIGNS: Temperature afebrile, heart rate 60, and blood pressure 123/59. HEENT: PERRLA. Extraocular muscles are intact. NECK: Supple. No carotid bruit or thyromegaly. CHEST: Clear to auscultation. HEART: S1 and S2 regular. ABDOMEN: Soft. EXTREMITIES: Clubbing and cyanosis negative. LABORATORY DATA: Blood workup as follows; WBC 14.4, hemoglobin 9.5, hematocrit 30.8, and platelet count 351. Chemistry shows sodium 135, potassium 4, chloride 95, carbon dioxide 33, anion gap of 11, BUN 19, and creatinine 1.2. IMPRESSION: An 87-year-old male with past medical history significant for coronary artery disease, pre and post coronary artery bypass graft, PTCA, AICD, cardiomyopathy, ejection fraction 45%, admitted with hematuria, history of prostate carcinoma, indwelling Avendano catheter, multiple times catheter clogged requiring 3V flushing and continuous bladder irrigation, now feels okay. Recent echo 12/20/2016 shows moderate mitral regurgitation, [id number] tricuspid regurgitation, RV systolic pressure 43, ejection fraction 45%, status post AICD, status post recently generator change two to three months ago, complaints of leg swelling. Lasix was increased, but it looks like there is cellulitis in the vanegas of the tibia. RECOMMENDATIONS: Continue digoxin. Continue amiodarone. Continue gentle diuretics as blood pressure tolerated. Monitor electrolytes. The patient has baseline renal insufficiency with creatinine of 1.4 to 1.5, but if the patient becomes euvolemic, the creatinine comes to 1 to 1.3. The patient has bilateral edema, so we will try to keep it negative fluid balance and creatinine around 1.5 to 1.6, a little bit prerenal azotemic to maintain out of CHF. Recently, Zaroxolyn was added and Lasix was given b.i.d. We will follow the electrolytes. We will monitor closely. Continue digoxin. Dr. Couch for cellulitis of the foot evaluation. We will follow with you. Thank you Dr. Polk for providing me the opportunity in taking care of patient, Ziggy Amador. We will repeat the blood workup in the morning. We will repeat the SMA-7 in the morning. Mely Chavarria MD
--- NOTE | 2017-06-04 22:41 | PN ---
DATE: 06/04/2017 This is [facility] visit on the TCU floor. For Dr. Carballo. SUBJECTIVE: The patient is an 87-year-old male, seen sitting up at the edge of the bed, feet are dangling with orange discoloration of his urine secondary to Pyridium; however, no gross blood appreciated with the patient now reporting that he has low back discomfort as his only complaint and his spasms have long since been improved. 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 Couch, podiatry. The patient is deconditioned and he is for reconditioning. PHYSICAL EXAMINATION: VITAL SIGNS: Temperature 98, pulse 60, respirations 20, blood pressure 126/59 with a pulse ox 97%. HEENT: Unremarkable. NECK: Supple. HEART: Regular rate, occasional ectopic beat with the patient's defibrillator noted. LUNGS: Rare rhonchi. ABDOMEN: Soft and nontender with Avendano in situ. EXTREMITIES: A +1 edema with eschar on the heels bilaterally. SKIN: Otherwise, wound dry and clear. NEUROLOGICAL: Awake, alert, and oriented x3. LABORATORY DATA: The patient's labs were done. White blood cell count of 14.4, hemoglobin 9.4, hematocrit 30.8, platelet count of 351,000. A chem metabolic panel showing a chloride of 95, BUN of 29 with normal creatinine at 1.2 nonfasting glucose 203, calcium of 8.2, magnesium 2.4; otherwise, normal chem metabolic panel. 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 PLAN: For this patient is to recondition. We will offer a Lidoderm patch to his low back on a daily basis. We will monitor while on TCU and then as an outpatient. Aram Hutchins MD cc:
[2017-06-05] MEDS: Levalbuterol 0.63 MG/3 ML Inhal Soln UD IH SCH ×4 (02:20→20:07)
[2017-06-05] MEDS: Pantoprazole 40 mg EC Tab PO SCH (06:31)
[2017-06-05] MEDS: Levothyroxine 100 MCG TAB PO SCH (06:32)
[2017-06-05 06:53] LABS: CHLORIDE 94 mmol/L (95-110); POTASSIUM 3.8 mmol/L (3.6-5.0); SODIUM 135 mmol/L (132-148)
[2017-06-05 07:22] LABS: BLOOD UREA NITROGEN 32 mg/dL (7-21); CALCIUM 8.1 mg/dL (8.4-10.5); CARBON DIOXIDE 35 mmol/L (21-33); GFR AFRICAN-AMERICAN > 60; GLUCOSE,RANDOM 112 mg/dL (70-110)
--- NOTE | 2017-06-05 08:14 | CP.PCM.PN ---
Subjective - Date & Time of Evaluation Date of Evaluation: 06/05/17 Time of Evaluation: 07:45 - Subjective Subjective: Patient is seen this morning. He is feeling better. He complains of bringing up lots of phlegm. denies cough or shortness of breath. Objective - Vital Signs/Intake and Output Vital Signs (last 24 hours): Temp Pulse Resp BP Pulse Ox 98.2 F 68 20 137/60 97 06/04/17 16:13 06/04/17 16:13 06/04/17 16:13 06/04/17 18:30 06/04/17 16:13 Intake and Output: 06/05/17 06/05/17 06:59 18:59 Intake Total 620 Output Total 3100 Balance -2480 - Medications Medications: Current Medications Amiodarone HCl (Cordarone) 200 mg PO DAILY JEANA PRN Reason: Protocol Last Admin: 06/04/17 10:26 Dose: Not Given Atorvastatin Calcium (Lipitor) 10 mg PO DIN JEANA PRN Reason: Protocol Last Admin: 06/04/17 18:29 Dose: 10 mg Calcium Carbonate (Oscal) 500 mg PO TID JEANA PRN Reason: Protocol Last Admin: 06/04/17 18:30 Dose: 500 mg Digoxin (Lanoxin) 0.125 mg PO 1400 JEANA PRN Reason: Protocol Last Admin: 06/04/17 15:18 Dose: 0.125 mg Docusate Sodium (Colace) 100 mg PO BID JEANA PRN Reason: Protocol Last Admin: 06/04/17 18:29 Dose: 100 mg Doxercalciferol (Hectorol) 0.5 mcg PO DAILY JEANA PRN Reason: Protocol Last Admin: 06/04/17 10:26 Dose: 0.5 mcg Furosemide (Lasix) 40 mg PO BID JEANA PRN Reason: Protocol Last Admin: 06/04/17 18:30 Dose: 40 mg Ceftazidime/Avibactam 2.5 gm/ (Sodium Chloride) 100 mls @ 50 mls/hr IVPB Q8H JEANA PRN Reason: Protocol Stop: 06/06/17 22:01 Last Admin: 06/05/17 06:31 Dose: 50 mls/hr Levalbuterol HCl (Xopenex) 0.63 mg IH [id number] JEANA PRN Reason: Protocol Last Admin: 06/05/17 07:26 Dose: 0.63 mg Levothyroxine Sodium (Synthroid) 100 mcg PO 0600 JEANA PRN Reason: Protocol Last Admin: 06/05/17 06:32 Dose: 100 mcg Lidocaine (Lidoderm) 1 ea TD DAILY [facility] Last Admin: 06/04/17 15:19 Dose: 1 ea Montelukast Sodium (Singulair) 10 mg PO DAILY JEANA PRN Reason: Protocol Last Admin: 06/04/17 10:28 Dose: 10 mg Morphine Sulfate (Morphine) 4 mg IVP Q4H PRN; Protocol PRN Reason: Pain, severe (8-10) Ondansetron HCl (Zofran Inj) 4 mg IVP Q4H PRN; Protocol PRN Reason: Nausea/Vomiting Last Admin: 06/03/17 06:56 Dose: 4 mg Pantoprazole Sodium (Protonix Ec Tab) 40 mg PO 0600 [facility] PRN Reason: Protocol Last Admin: 06/05/17 06:31 Dose: 40 mg Phenazopyridine HCl (Pyridium) 200 mg PO 0000,0800,1600 [facility] PRN Reason: Protocol Last Admin: 06/04/17 23:56 Dose: 200 mg Polyethylene Glycol (Miralax) 17 gm PO BID JEANA PRN Reason: Protocol Last Admin: 06/04/17 18:30 Dose: 17 gm Prednisone (Prednisone Tab) 10 mg PO DAILY JEANA PRN Reason: Protocol Last Admin: 06/04/17 10:27 Dose: 10 mg Sodium Phosphate (Fleet Enema) 135 ml RC Q8H PRN; Protocol PRN Reason: Constipation Tramadol HCl (Ultram) 50 mg PO TID JEANA PRN Reason: Protocol Last Admin: 06/04/17 18:27 Dose: Not Given Vancomycin HCl (Vancocin 25 Mg/Ml (Oral Use)) 125 mg PO QID JEANA PRN Reason: Protocol Last Admin: 06/04/17 21:38 Dose: 125 mg - Labs Labs: 06/04/17 06:17 06/05/17 06:30 - Constitutional Appears: No Acute Distress - Head Exam Head Exam: ATRAUMATIC, NORMOCEPHALIC - Respiratory Exam Respiratory Exam: Clear to Ausculation Bilateral, NORMAL BREATHING PATTERN - Cardiovascular Exam Cardiovascular Exam: +S1, +S2 - GI/Abdominal Exam GI & Abdominal Exam: Soft, Tenderness, Normal Bowel Sounds - Extremities Exam Extremities Exam: Pedal Edema - Neurological Exam Neurological Exam: Alert, Awake, Oriented x3 Assessment and Plan - Assessment and Plan (Free Text) Assessment: Deep tissue injury bilateral heels Deconditioning Chronic heart failure COPD DMII Hypothyroidism cardiac arrhythmia metastatic prostate cancer Plan: Patient is seen this morning. He is feeling better. continue respiratory treatments and prednisone for COPD. Patient has been seen by podiatry for heel tissue injury. continue dressing and offloading boots as per podiatry. continue physical therapy.
[2017-06-05] MEDS: Insulin Human NPH/Reg 70/30 Vial(3 ml) SC SCH ×4 (08:17→22:16)
[2017-06-05] MEDS: POLYETHYLENE GLYCOL 3350 17 GM/Dose PACKET PO SCH ×2 (09:50→18:48)
[2017-06-05] MEDS: Vancomycin 25 MG/ML PO SCH ×4 (09:51→22:18)
--- NOTE | 2017-06-05 10:12 | CP.PCM.PN ---
<Barrington Camarena - Last Filed: 06/05/17 20:35> Subjective - Date & Time of Evaluation Date of Evaluation: 06/05/17 Time of Evaluation: 07:40 - Subjective Subjective: Heme/onc note for Dr Carballo: Pt seen and examined at bedside. No acute events. No hematuria. Denies any f/c, n/v/d, palpitations, urinary or bm changes. Objective - Vital Signs/Intake and Output Vital Signs (last 24 hours): Temp Pulse Resp BP Pulse Ox 98.2 F 71 20 127/53 L 97 06/04/17 16:13 06/05/17 09:52 06/04/17 16:13 06/05/17 09:52 06/04/17 16:13 Intake and Output: 06/05/17 06/05/17 06:59 18:59 Intake Total 620 Output Total 3100 Balance -2480 - Medications Medications: Current Medications Amiodarone HCl (Cordarone) 200 mg PO DAILY JEANA PRN Reason: Protocol Last Admin: 06/05/17 09:52 Dose: 200 mg Atorvastatin Calcium (Lipitor) 10 mg PO DIN JEANA PRN Reason: Protocol Last Admin: 06/04/17 18:29 Dose: 10 mg Calcium Carbonate (Oscal) 500 mg PO TID JEANA PRN Reason: Protocol Last Admin: 06/05/17 09:50 Dose: 500 mg Digoxin (Lanoxin) 0.125 mg PO 1400 JEANA PRN Reason: Protocol Last Admin: 06/04/17 15:18 Dose: 0.125 mg Docusate Sodium (Colace) 100 mg PO BID JEANA PRN Reason: Protocol Last Admin: 06/05/17 09:48 Dose: 100 mg Doxercalciferol (Hectorol) 0.5 mcg PO DAILY JEANA PRN Reason: Protocol Last Admin: 06/05/17 09:52 Dose: 0.5 mcg Furosemide (Lasix) 40 mg PO BID JEANA PRN Reason: Protocol Last Admin: 06/05/17 09:49 Dose: 40 mg Ceftazidime/Avibactam 2.5 gm/ (Sodium Chloride) 100 mls @ 50 mls/hr IVPB Q8H JEANA PRN Reason: Protocol Stop: 06/06/17 22:01 Last Admin: 06/05/17 06:31 Dose: 50 mls/hr Levalbuterol HCl (Xopenex) 0.63 mg IH [id number] JEANA PRN Reason: Protocol Last Admin: 06/05/17 07:26 Dose: 0.63 mg Levothyroxine Sodium (Synthroid) 100 mcg PO 0600 JEANA PRN Reason: Protocol Last Admin: 06/05/17 06:32 Dose: 100 mcg Lidocaine (Lidoderm) 1 ea TD DAILY JEANA Last Admin: 06/04/17 15:19 Dose: 1 ea Montelukast Sodium (Singulair) 10 mg PO DAILY JEANA PRN Reason: Protocol Last Admin: 06/05/17 09:50 Dose: 10 mg Morphine Sulfate (Morphine) 4 mg IVP Q4H PRN; Protocol PRN Reason: Pain, severe (8-10) Ondansetron HCl (Zofran Inj) 4 mg IVP Q4H PRN; Protocol PRN Reason: Nausea/Vomiting Last Admin: 06/03/17 06:56 Dose: 4 mg Pantoprazole Sodium (Protonix Ec Tab) 40 mg PO 0600 JEANA PRN Reason: Protocol Last Admin: 06/05/17 06:31 Dose: 40 mg Phenazopyridine HCl (Pyridium) 200 mg PO 0000,0800,1600 JEANA PRN Reason: Protocol Last Admin: 06/05/17 08:18 Dose: 200 mg Polyethylene Glycol (Miralax) 17 gm PO BID JEANA PRN Reason: Protocol Last Admin: 06/05/17 09:50 Dose: 17 gm Prednisone (Prednisone Tab) 10 mg PO DAILY JEANA PRN Reason: Protocol Last Admin: 06/05/17 09:50 Dose: 10 mg Sodium Phosphate (Fleet Enema) 135 ml RC Q8H PRN; Protocol PRN Reason: Constipation Tramadol HCl (Ultram) 50 mg PO TID JEANA PRN Reason: Protocol Last Admin: 06/04/17 18:27 Dose: Not Given Vancomycin HCl (Vancocin 25 Mg/Ml (Oral Use)) 125 mg PO QID JEANA PRN Reason: Protocol Last Admin: 06/05/17 09:51 Dose: 125 mg - Labs Labs: 06/04/17 06:17 06/05/17 06:30 - Constitutional Appears: No Acute Distress - Head Exam Head Exam: NORMAL INSPECTION - Eye Exam Eye Exam: EOMI, PERRL - ENT Exam ENT Exam: Mucous Membranes Moist - Respiratory Exam Respiratory Exam: Clear to Ausculation Bilateral. absent: Rales, Rhonchi, Wheezes - Cardiovascular Exam Cardiovascular Exam: REGULAR RHYTHM, RRR, +S1, +S2 - GI/Abdominal Exam GI & Abdominal Exam: Soft, Normal Bowel Sounds. absent: Distended - Extremities Exam Extremities Exam: absent: Calf Tenderness, Pedal Edema - Back Exam Back Exam: NORMAL INSPECTION - Neurological Exam Neurological Exam: Alert, Awake, Oriented x3 - Psychiatric Exam Psychiatric exam: Normal Affect, Normal Mood - Skin Skin Exam: Dry, Intact, Warm Assessment and Plan - Assessment and Plan (Free Text) Assessment: 87 M with history of stage 4 castrate resistant prostate cancer, chronic heart failure, COPD, DMII, coronary artery disease, hypothyroidism, and arthritis who was admitted for hematuria and blood clots. Pt is s/p cystoscopy with evacuation of clots, cath replacement, with continuous bladder irrigation. s/p bladder fulguration. In the TCU for deconditioning and cont antibiotics. Plan: - In the TCU for deconditioning and continued antibiotics - PT for gait training and strengthening - F/u urology recs appreciated - To cont Zytiga once home and Cytotoxin as outpt upon insurance approval - ID consulted - on Ceftazadine target of 10 days, cont Vanco PO 125mg Q6H for C.diff antigen positive - CT abdomen & pelvis with no contrast for abd pain - acute cystitis correlate with urinalysis, scheleortic mets, retroperitoneal and pelvic lymphadenopathy, small bowel mesenteric lymphadenopathy - Cont with Pyridium - Prednisone 10mg daily Case and plan was seen, reviewed and discussed in detail with Dr Carballo. <Rogelio Carballo P - Last Filed: 06/10/17 18:30> Objective - Vital Signs/Intake and Output Vital Signs (last 24 hours): Temp Pulse Resp BP Pulse Ox 97.3 F L 72 20 131/66 97 06/09/17 16:56 06/09/17 16:56 06/09/17 16:56 06/09/17 16:56 06/09/17 16:56 - Labs Labs: 06/08/17 05:30 06/08/17 05:30 Attending/Attestation - Attestation I have personally seen and examined this patient.: Yes I have fully participated in the care of the patient.: Yes I have reviewed all pertinent clinical information, including history, physical exam and plan: Yes
[2017-06-05] MEDS: Lidocaine 5% Patch TD SCH (12:47)
--- NOTE | 2017-06-05 15:26 | CP.PCM.PN ---
Subjective - Date & Time of Evaluation Date of Evaluation: 06/05/17 Time of Evaluation: 10:35 - Subjective Subjective: Comfortable in bed, less abdominal pain, no more diarrhea, no fevers. Objective - Vital Signs/Intake and Output Vital Signs (last 24 hours): Temp Pulse Resp BP Pulse Ox 98.2 F 68 20 137/60 97 06/04/17 16:13 06/04/17 16:13 06/04/17 16:13 06/04/17 18:30 06/04/17 16:13 Intake and Output: 06/05/17 06/05/17 06:59 18:59 Intake Total 620 Output Total 3100 Balance -2480 - Medications Medications: Current Medications Amiodarone HCl (Cordarone) 200 mg PO DAILY JEANA PRN Reason: Protocol Last Admin: 06/04/17 10:26 Dose: Not Given Atorvastatin Calcium (Lipitor) 10 mg PO DIN JEANA PRN Reason: Protocol Last Admin: 06/04/17 18:29 Dose: 10 mg Calcium Carbonate (Oscal) 500 mg PO TID JEANA PRN Reason: Protocol Last Admin: 06/04/17 18:30 Dose: 500 mg Digoxin (Lanoxin) 0.125 mg PO 1400 JEANA PRN Reason: Protocol Last Admin: 06/04/17 15:18 Dose: 0.125 mg Docusate Sodium (Colace) 100 mg PO BID JEANA PRN Reason: Protocol Last Admin: 06/04/17 18:29 Dose: 100 mg Doxercalciferol (Hectorol) 0.5 mcg PO DAILY JEANA PRN Reason: Protocol Last Admin: 06/04/17 10:26 Dose: 0.5 mcg Furosemide (Lasix) 40 mg PO BID JEANA PRN Reason: Protocol Last Admin: 06/04/17 18:30 Dose: 40 mg Ceftazidime/Avibactam 2.5 gm/ (Sodium Chloride) 100 mls @ 50 mls/hr IVPB Q8H JEANA PRN Reason: Protocol Stop: 06/06/17 22:01 Last Admin: 06/05/17 06:31 Dose: 50 mls/hr Levalbuterol HCl (Xopenex) 0.63 mg IH [id number] JEANA PRN Reason: Protocol Last Admin: 06/05/17 07:26 Dose: 0.63 mg Levothyroxine Sodium (Synthroid) 100 mcg PO 0600 JEANA PRN Reason: Protocol Last Admin: 06/05/17 06:32 Dose: 100 mcg Lidocaine (Lidoderm) 1 ea TD DAILY [facility] Last Admin: 06/04/17 15:19 Dose: 1 ea Montelukast Sodium (Singulair) 10 mg PO DAILY JEANA PRN Reason: Protocol Last Admin: 06/04/17 10:28 Dose: 10 mg Morphine Sulfate (Morphine) 4 mg IVP Q4H PRN; Protocol PRN Reason: Pain, severe (8-10) Ondansetron HCl (Zofran Inj) 4 mg IVP Q4H PRN; Protocol PRN Reason: Nausea/Vomiting Last Admin: 06/03/17 06:56 Dose: 4 mg Pantoprazole Sodium (Protonix Ec Tab) 40 mg PO 0600 [facility] PRN Reason: Protocol Last Admin: 06/05/17 06:31 Dose: 40 mg Phenazopyridine HCl (Pyridium) 200 mg PO 0000,0800,1600 [facility] PRN Reason: Protocol Last Admin: 06/05/17 08:18 Dose: 200 mg Polyethylene Glycol (Miralax) 17 gm PO BID JEANA PRN Reason: Protocol Last Admin: 06/04/17 18:30 Dose: 17 gm Prednisone (Prednisone Tab) 10 mg PO DAILY [facility] PRN Reason: Protocol Last Admin: 06/04/17 10:27 Dose: 10 mg Sodium Phosphate (Fleet Enema) 135 ml RC Q8H PRN; Protocol PRN Reason: Constipation Tramadol HCl (Ultram) 50 mg PO TID JEANA PRN Reason: Protocol Last Admin: 06/04/17 18:27 Dose: Not Given Vancomycin HCl (Vancocin 25 Mg/Ml (Oral Use)) 125 mg PO QID JEANA PRN Reason: Protocol Last Admin: 06/04/17 21:38 Dose: 125 mg - Labs Labs: 06/04/17 06:17 06/05/17 06:30 - Constitutional Appears: Non-toxic, No Acute Distress - Head Exam Head Exam: NORMAL INSPECTION - Neck Exam Neck Exam: absent: Meningismus - Respiratory Exam Respiratory Exam: Decreased Breath Sounds - Cardiovascular Exam Cardiovascular Exam: +S1, +S2 - GI/Abdominal Exam GI & Abdominal Exam: Soft. absent: Tenderness Assessment and Plan - Assessment and Plan (Free Text) Plan: Assessment Systemic Inflammatory Response Syndrome in a patient who had hematuria S/P cystoscopy, fulguration and irrigation of the bladder, with sepsis from UTI with Carbapenem-resistant Klebsiella consider C. diff. associated diarrhea S/P lower urinary tract infection in a patient with indwelling Avendano catheter growing Carbapenem-resistant Klebsiella history of right foot necrotic ulcer with surrounding cellulitis UTI with Enterococcus and Klebsiella chronic renal failure history of DVT DM metastatic Prostate CA history of Enterococcus UTI chronic atrial fibrillation S/P pacemaker and ICD placement Plan continue Avycaz day 12 - should target 14 days of antibiotics complete 10-14 days of PO Vancomycin as well will continue to monitor clinically
--- NOTE | 2017-06-05 16:21 | PN ---
DATE: 06/05/2017 LOCATION: The patient is in room 319, bed 1. REASON FOR CONSULTATION: Followup for coronary artery disease, status post AICD, CABG, multiple angioplasties, hematuria, and swelling of the legs. SUBJECTIVE: The patient is lying flat in bed without chest pain or shortness of breath. His leg swelling has improved. The patient still has pelvic area pain, but it is also getting less. PHYSICAL EXAMINATION: VITAL SIGNS: Blood pressure 127/53, respirations 18, pulse 71, and temperature 98.1. HEENT: Head is normocephalic. Eyes, pupils normal. Conjunctivae slightly pale. NECK: JVP low. Carotids equal. Thorax, AP diameter normal. LUNGS: Clear. CARDIOVASCULAR: S1 and S2 systolic murmur. ABDOMEN: Soft. No tenderness. No organomegaly. EXTREMITIES: No clubbing. No cyanosis. Also swelling of legs has improved. LABORATORY DATA: WBC 14.4, hemoglobin 9.4, hematocrit 30.8, and platelet count 351. Sodium 135, potassium 3.8, BUN 32, creatinine 1.3, random glucose 112, and calcium 8.1. DIAGNOSES: Coronary artery disease, coronary artery bypass grafting, multiple angioplasties before and after bypass surgery, cardiomyopathy, automatic implantable cardioverter-defibrillator insertion, ejection fraction of 45%, chronic atrial fibrillation, hematuria, prostatic carcinoma, indwelling Avendano catheter, and pelvic area pain. Echocardiography from 12/20/2016, showed moderate mitral regurgitation, [id number] tricuspid regurgitation, right ventricular systolic pressure 43 mmHg, ejection fraction 45%, status post recent generator change for automatic implantable cardioverter-defibrillator about 3 months ago, deconditioning. PLAN: The plan is to continue physical therapy. The patient is asymptomatic from cardiac point of view. The patient is getting antibiotic ceftazidime 2.5 g IV q. 8 hours, amiodarone 200 mg daily, insulin as ordered, digoxin 0.125 daily, Lasix 40 b.i.d., Lipitor 10 mg daily, prednisone 10 mg daily, Protonix 40 daily, Singulair 10 mg daily, levothyroxine 100 mcg p.o. daily, vancomycin 125 mg p.o. q.i.d. for C. diff, and Xopenex handheld nebulizer therapy. We will follow with you. Mely Walters MD [facility] # [id number]
--- NOTE | 2017-06-05 16:30 | CP.PCM.PN ---
<Nidia Aldrich - Last Filed: 06/05/17 16:24> Subjective - Date & Time of Evaluation Date of Evaluation: 06/05/17 Time of Evaluation: 16:24 - Subjective Subjective: 87 year old diabetic male patient was seen by bedside this afternoon with attending Dr. Couch. Patient was sitting comfortably in chair today with no acute distress. Patient states that his heels are very tender to the touch. He states that he sees older worker specialist Dr. Lawrence as an outpatient. Patient denies of any other pedal complains. Denies any n/v/f/c/sob/cp. Objective - Vital Signs/Intake and Output Vital Signs (last 24 hours): Temp Pulse Resp BP Pulse Ox 98.1 F 71 18 127/53 L 97 06/05/17 10:09 06/05/17 10:09 06/05/17 10:09 06/05/17 10:09 06/04/17 16:13 Intake and Output: 06/05/17 06/05/17 06:59 18:59 Intake Total 620 Output Total 3100 Balance -2480 - Medications Medications: Current Medications Amiodarone HCl (Cordarone) 200 mg PO DAILY [facility]EANA PRN Reason: Protocol Last Admin: 06/05/17 09:52 Dose: 200 mg Atorvastatin Calcium (Lipitor) 10 mg PO DIN [facility]EANA PRN Reason: Protocol Last Admin: 06/04/17 18:29 Dose: 10 mg Calcium Carbonate (Oscal) 500 mg PO TID [facility]EANA PRN Reason: Protocol Last Admin: 06/05/17 09:50 Dose: 500 mg Digoxin (Lanoxin) 0.125 mg PO 1400 [facility] PRN Reason: Protocol Last Admin: 06/04/17 15:18 Dose: 0.125 mg Docusate Sodium (Colace) 100 mg PO BID [facility]NA PRN Reason: Protocol Last Admin: 06/05/17 09:48 Dose: 100 mg Doxercalciferol (Hectorol) 0.5 mcg PO DAILY [facility] PRN Reason: Protocol Last Admin: 06/05/17 09:52 Dose: 0.5 mcg Furosemide (Lasix) 40 mg PO BID [facility] PRN Reason: Protocol Last Admin: 06/05/17 09:49 Dose: 40 mg Ceftazidime/Avibactam 2.5 gm/ (Sodium Chloride) 100 mls @ 50 mls/hr IVPB Q8H [facility] PRN Reason: Protocol Stop: 06/06/17 22:01 Last Admin: 06/05/17 06:31 Dose: 50 mls/hr Levalbuterol HCl (Xopenex) 0.63 mg IH [id number] JEANA PRN Reason: Protocol Last Admin: 06/05/17 13:15 Dose: 0.63 mg Levothyroxine Sodium (Synthroid) 100 mcg PO 0600 [facility] PRN Reason: Protocol Last Admin: 06/05/17 06:32 Dose: 100 mcg Lidocaine (Lidoderm) 1 ea TD DAILY [facility]EANA Last Admin: 06/04/17 15:19 Dose: 1 ea Montelukast Sodium (Singulair) 10 mg PO DAILY [facility] PRN Reason: Protocol Last Admin: 06/05/17 09:50 Dose: 10 mg Morphine Sulfate (Morphine) 4 mg IVP Q4H PRN; Protocol PRN Reason: Pain, severe (8-10) Ondansetron HCl (Zofran Inj) 4 mg IVP Q4H PRN; Protocol PRN Reason: Nausea/Vomiting Last Admin: 06/03/17 06:56 Dose: 4 mg Pantoprazole Sodium (Protonix Ec Tab) 40 mg PO 0600 [facility] PRN Reason: Protocol Last Admin: 06/05/17 06:31 Dose: 40 mg Phenazopyridine HCl (Pyridium) 200 mg PO 0000,0800,1600 [facility] PRN Reason: Protocol Last Admin: 06/05/17 08:18 Dose: 200 mg Polyethylene Glycol (Miralax) 17 gm PO BID [facility]EANA PRN Reason: Protocol Last Admin: 06/05/17 09:50 Dose: 17 gm Prednisone (Prednisone Tab) 10 mg PO DAILY [facility] PRN Reason: Protocol Last Admin: 06/05/17 09:50 Dose: 10 mg Sodium Phosphate (Fleet Enema) 135 ml RC Q8H PRN; Protocol PRN Reason: Constipation Tramadol HCl (Ultram) 50 mg PO TID [facility]NA PRN Reason: Protocol Last Admin: 06/05/17 10:59 Dose: 50 mg Vancomycin HCl (Vancocin 25 Mg/Ml (Oral Use)) 125 mg PO QID [facility]NA PRN Reason: Protocol Last Admin: 06/05/17 09:51 Dose: 125 mg - Labs Labs: 06/04/17 06:17 06/05/17 06:30 - Constitutional Appears: Well, Non-toxic, No Acute Distress - Head Exam Head Exam: ATRAUMATIC - Extremities Exam Additional comments: Lower extremity focused exam: Derm: No open wound noted to heels bilaterally. Dark discoloration noted to bilateral heels measuring approximately 4cm x 4cm for right and 2cm x 2cm for Left. Lesion appears to be of hematoma under epithelial tissue. No PTB. No drainage is noted. No sign of acute infection is noted. Vasc: DP and PT pulses non-palpable due to pitting edema. Skin temperature warm to warm from proximal to distal b/l. Neuro: Gross sensation decreased b/l. Ortho: Tenderness on palpation to heels b/l. - Neurological Exam Neurological Exam: Alert, Awake, Oriented x3 - Psychiatric Exam Psychiatric exam: Normal Affect, Normal Mood - Skin Skin Exam: Normal Color, Warm Assessment and Plan - Assessment and Plan (Free Text) Assessment: 87 year old male with Deep tissue injury to bilateral heels Plan: patient examined and evaluated discussed in detail with attending, Dr Couch labs, chart, vitals reviewed Bilateral heels dressed with optifoam stressed the importance of wearing offloading boots at all times while in bed podiatry will continue to follow patient while in house <Ruchi Couch - Last Filed: 06/07/17 16:10> Objective - Vital Signs/Intake and Output Vital Signs (last 24 hours): Temp Pulse Resp BP Pulse Ox 98 F 61 18 143/77 95 06/07/17 10:24 06/07/17 10:24 06/07/17 10:24 06/07/17 10:24 06/07/17 10:24 Intake and Output: 06/07/17 06/07/17 06:59 18:59 Intake Total 680 Output Total 1200 650 Balance -1200 30 - Medications Medications: Current Medications Amiodarone HCl (Cordarone) 200 mg PO DAILY JEANA PRN Reason: Protocol Last Admin: 06/07/17 10:04 Dose: Not Given Atorvastatin Calcium (Lipitor) 10 mg PO DIN [facility]EANA PRN Reason: Protocol Last Admin: 06/06/17 18:04 Dose: 10 mg Calcium Carbonate (Oscal) 500 mg PO TID [facility]EANA PRN Reason: Protocol Last Admin: 06/07/17 13:40 Dose: 500 mg Digoxin (Lanoxin) 0.125 mg PO 1400 [facility]EANA PRN Reason: Protocol Last Admin: 06/07/17 13:41 Dose: 0.125 mg Docusate Sodium (Colace) 100 mg PO BID [facility]EANA PRN Reason: Protocol Last Admin: 06/07/17 10:03 Dose: 100 mg Doxercalciferol (Hectorol) 0.5 mcg PO DAILY [facility]NA PRN Reason: Protocol Last Admin: 06/07/17 10:03 Dose: 0.5 mcg Furosemide (Lasix) 40 mg PO DAILY [facility] Ceftazidime/Avibactam 2.5 gm/ (Sodium Chloride) 100 mls @ 50 mls/hr IVPB Q8H [facility]EANA PRN Reason: Protocol Stop: 06/08/17 22:01 Last Admin: 06/07/17 13:40 Dose: 50 mls/hr Levalbuterol HCl (Xopenex) 0.63 mg IH [id number] JEANA PRN Reason: Protocol Last Admin: 06/07/17 13:10 Dose: 0.63 mg Levothyroxine Sodium (Synthroid) 100 mcg PO 0600 [facility]EANA PRN Reason: Protocol Last Admin: 06/07/17 05:47 Dose: 100 mcg Lidocaine (Lidoderm) 1 ea TD DAILY [facility] Last Admin: 06/07/17 10:06 Dose: 1 ea Montelukast Sodium (Singulair) 10 mg PO DAILY [facility]NA PRN Reason: Protocol Last Admin: 06/07/17 10:07 Dose: 10 mg Morphine Sulfate (Morphine) 4 mg IVP Q4H PRN; Protocol PRN Reason: Pain, severe (8-10) Ondansetron HCl (Zofran Inj) 4 mg IVP Q4H PRN; Protocol PRN Reason: Nausea/Vomiting Last Admin: 06/07/17 09:25 Dose: 4 mg Pantoprazole Sodium (Protonix Ec Tab) 40 mg PO 0600 JEANA PRN Reason: Protocol Last Admin: 06/07/17 05:47 Dose: 40 mg Phenazopyridine HCl (Pyridium) 200 mg PO 0000,0800,1600 [facility] PRN Reason: Protocol Last Admin: 06/07/17 08:15 Dose: 200 mg Polyethylene Glycol (Miralax) 17 gm PO BID JEANA PRN Reason: Protocol Last Admin: 06/07/17 10:06 Dose: 17 gm Prednisone (Prednisone Tab) 10 mg PO DAILY [facility]EANA PRN Reason: Protocol Last Admin: 06/07/17 10:07 Dose: 10 mg Sodium Phosphate (Fleet Enema) 135 ml RC Q8H PRN; Protocol PRN Reason: Constipation Tramadol HCl (Ultram) 50 mg PO TID [facility] PRN Reason: Protocol Last Admin: 06/07/17 13:42 Dose: Not Given Vancomycin HCl (Vancocin 25 Mg/Ml (Oral Use)) 125 mg PO QID [facility] PRN Reason: Protocol Last Admin: 06/07/17 13:41 Dose: 125 mg - Labs Labs: 06/07/17 07:00 06/07/17 07:00 Attending/Attestation - Attestation I have personally seen and examined this patient.: Yes I have fully participated in the care of the patient.: Yes I have reviewed all pertinent clinical information, including history, physical exam and plan: Yes Notes (Text): 06/07/17 16:09 right heel with hematoma which was anced with a sterile suture removal kit after cleaning with betadine; the hematoma was firm and no fluid was released - wound was redressd and pt made comfortable
[2017-06-05] MEDS: Digoxin 125 mcg (0.125 mg) Tab PO SCH (18:45)
[2017-06-06] MEDS: Levalbuterol 0.63 MG/3 ML Inhal Soln UD IH SCH ×4 (01:37→19:45)
--- NOTE | 2017-06-06 04:01 | PN ---
DATE: 06/05/2017 SUBJECTIVE: The patient is seen lying in bed. He appears to be sleeping. His breathing seems a little rapid. PHYSICAL EXAMINATION: VITAL SIGNS: Blood pressure 120/53, heart rate 54, respiratory rate 18-20, temperature is 98.7. HEENT: Normocephalic and atraumatic. Positive pallor. NECK: Supple. No JVD. LUNGS: Bilateral equal air entry, bilateral equal expansion, no rales. CARDIAC: S1 and S2, regular rate and rhythm. No murmur. No rub. ABDOMEN: Obese, distended, soft, and nontender. Bowel sounds present. EXTREMITIES: 2+ pitting edema of the lower extremities. INTAKE AND OUTPUT: 1220/3600. LABORATORY DATA: Sodium 135, potassium 3.8, chloride 94, CO2 of 35, BUN 32, creatinine 1.3, glucose 112, and calcium 8.1. CURRENT MEDICATIONS: Tazobactam, Colace, Cordarone, Enema, Hectorol, digoxin, Lasix 40 mg p.o. b.i.d., Lidoderm, Lipitor, MiraLax, morphine, Os-Pedro 500 t.i.d., prednisone 10 mg daily, Protonix 40 mg, Pyridium, Synthroid, Ultram, and vancomycin. ASSESSMENT: 1. Stable chronic kidney disease stage IV. 2. Resolved acute kidney injury. 3. Volume overload. 4. Prostate cancer. 5. Recurrent hematuria. 6. Recurrent resistant urinary tract infection. 7. Non-insulin dependent diabetes mellitus. 8. Congestive heart failure. PLAN: 1. Continue to diurese. 2. Keep O's greater than I's. 3. Hold p.o. Lasix. 4. Lasix IV 40 mg daily. 5. Daily electrolytes. 6. Daily weight. 7. Continue antibiotics as per ID recommendations. 8. Continue physical therapy. Marianne Lozano MD
[2017-06-06] MEDS: Levothyroxine 100 MCG TAB PO SCH (06:09)
[2017-06-06] MEDS: Pantoprazole 40 mg EC Tab PO SCH (06:09)
[2017-06-06] MEDS: Insulin Human NPH/Reg 70/30 Vial(3 ml) SC SCH ×4 (06:52→21:53)
[2017-06-06] MEDS: POLYETHYLENE GLYCOL 3350 17 GM/Dose PACKET PO SCH ×2 (09:59→18:05)
[2017-06-06] MEDS: Lidocaine 5% Patch TD SCH (09:59)
[2017-06-06] MEDS: Vancomycin 25 MG/ML PO SCH ×4 (10:02→22:56)
--- NOTE | 2017-06-06 11:09 | CP.PCM.PN ---
<Barrington Camarena - Last Filed: 06/06/17 11:05> Subjective - Date & Time of Evaluation Date of Evaluation: 06/06/17 Time of Evaluation: 07:00 - Subjective Subjective: Heme/onc note for Dr Carballo: Pt seen and examined at bedside. Denies any hematuria. No pain. Denies any f/c , n/v/d, palpitations, urinary or bm changes. Objective - Vital Signs/Intake and Output Vital Signs (last 24 hours): Temp Pulse Resp BP Pulse Ox 98.0 F 72 95 H 144/72 95 06/06/17 06:00 06/06/17 09:57 06/06/17 06:00 06/06/17 10:02 06/05/17 17:13 Intake and Output: 06/06/17 06/06/17 06:59 18:59 Output Total 2350 Balance -2350 - Medications Medications: Current Medications Amiodarone HCl (Cordarone) 200 mg PO DAILY [facility] PRN Reason: Protocol Last Admin: 06/06/17 09:57 Dose: 200 mg Atorvastatin Calcium (Lipitor) 10 mg PO DIN [facility] PRN Reason: Protocol Last Admin: 06/05/17 18:48 Dose: 10 mg Calcium Carbonate (Oscal) 500 mg PO TID [facility]NA PRN Reason: Protocol Last Admin: 06/06/17 09:59 Dose: 500 mg Digoxin (Lanoxin) 0.125 mg PO 1400 [facility]NA PRN Reason: Protocol Last Admin: 06/05/17 18:45 Dose: 0.125 mg Docusate Sodium (Colace) 100 mg PO BID [facility] PRN Reason: Protocol Last Admin: 06/06/17 09:56 Dose: 100 mg Doxercalciferol (Hectorol) 0.5 mcg PO DAILY [facility] PRN Reason: Protocol Last Admin: 06/06/17 09:58 Dose: 0.5 mcg Furosemide (Lasix) 40 mg PO BID [facility] PRN Reason: Protocol Last Admin: 06/05/17 18:46 Dose: 40 mg Furosemide (Lasix) 40 mg IV DAILY [facility]NA Last Admin: 06/06/17 10:02 Dose: 40 mg Ceftazidime/Avibactam 2.5 gm/ (Sodium Chloride) 100 mls @ 50 mls/hr IVPB Q8H [facility] PRN Reason: Protocol Stop: 06/08/17 22:01 Last Admin: 06/06/17 06:06 Dose: 50 mls/hr Levalbuterol HCl (Xopenex) 0.63 mg IH [id number] [facility] PRN Reason: Protocol Last Admin: 06/06/17 07:19 Dose: 0.63 mg Levothyroxine Sodium (Synthroid) 100 mcg PO 0600 [facility] PRN Reason: Protocol Last Admin: 06/06/17 06:09 Dose: 100 mcg Lidocaine (Lidoderm) 1 ea TD DAILY [facility] Last Admin: 06/06/17 09:59 Dose: 1 ea Montelukast Sodium (Singulair) 10 mg PO DAILY [facility] PRN Reason: Protocol Last Admin: 06/06/17 09:59 Dose: 10 mg Morphine Sulfate (Morphine) 4 mg IVP Q4H PRN; Protocol PRN Reason: Pain, severe (8-10) Ondansetron HCl (Zofran Inj) 4 mg IVP Q4H PRN; Protocol PRN Reason: Nausea/Vomiting Last Admin: 06/03/17 06:56 Dose: 4 mg Pantoprazole Sodium (Protonix Ec Tab) 40 mg PO 0600 [facility]NA PRN Reason: Protocol Last Admin: 06/06/17 06:09 Dose: 40 mg Phenazopyridine HCl (Pyridium) 200 mg PO 0000,0800,1600 [facility] PRN Reason: Protocol Last Admin: 06/06/17 08:31 Dose: 200 mg Polyethylene Glycol (Miralax) 17 gm PO BID [facility] PRN Reason: Protocol Last Admin: 06/06/17 09:59 Dose: Not Given Prednisone (Prednisone Tab) 10 mg PO DAILY [facility] PRN Reason: Protocol Last Admin: 06/06/17 09:59 Dose: Not Given Sodium Phosphate (Fleet Enema) 135 ml RC Q8H PRN; Protocol PRN Reason: Constipation Tramadol HCl (Ultram) 50 mg PO TID [facility] PRN Reason: Protocol Last Admin: 06/06/17 10:01 Dose: 50 mg Vancomycin HCl (Vancocin 25 Mg/Ml (Oral Use)) 125 mg PO QID [facility]EAAN PRN Reason: Protocol Last Admin: 06/06/17 10:02 Dose: 125 mg - Labs Labs: 06/04/17 06:17 06/05/17 06:30 - Constitutional Appears: No Acute Distress - Head Exam Head Exam: NORMAL INSPECTION - Eye Exam Eye Exam: EOMI, PERRL - ENT Exam ENT Exam: Mucous Membranes Moist - Neck Exam Neck Exam: Full ROM - Respiratory Exam Respiratory Exam: Clear to Ausculation Bilateral. absent: Wheezes - Cardiovascular Exam Cardiovascular Exam: REGULAR RHYTHM, RRR, +S1 - GI/Abdominal Exam GI & Abdominal Exam: Soft. absent: Distended, Tenderness - Extremities Exam Extremities Exam: absent: Calf Tenderness, Pedal Edema - Neurological Exam Neurological Exam: Alert, Awake, Oriented x3 - Psychiatric Exam Psychiatric exam: Normal Affect, Normal Mood Assessment and Plan - Assessment and Plan (Free Text) Assessment: 87 M with history of stage 4 castrate resistant prostate cancer, chronic heart failure, COPD, DMII, coronary artery disease, hypothyroidism, and arthritis who was admitted for hematuria and blood clots. Pt is s/p cystoscopy with evacuation of clots, cath replacement, with continuous bladder irrigation. s/p bladder fulguration. In the TCU for deconditioning and cont antibiotics. Plan: - Dr Carballo spoke to him about the drug Cytoxin as an outpatient tx and handed him some information on it. F/u with pharmacy as well - TCU for deconditioning and continued antibiotics - Continue with the PT for gait training and strengthening - Urology recs appreciated - To cont Zytiga once home and Cytotoxin as outpt upon insurance approval - ID consulted - on Ceftazadine target of 10 days, cont Vanco PO 125mg Q6H for C.diff antigen positive - CT abdomen & pelvis with no contrast for abd pain - acute cystitis correlate with urinalysis, scheleortic mets, retroperitoneal and pelvic lymphadenopathy, small bowel mesenteric lymphadenopathy - Cont with Pyridium - Prednisone 10mg daily Case and plan was seen, reviewed and discussed in detail with Dr Carballo. <Rogelio Carballo - Last Filed: 06/09/17 23:30> Objective - Vital Signs/Intake and Output Vital Signs (last 24 hours): Temp Pulse Resp BP Pulse Ox 97.3 F L 72 20 131/66 97 06/09/17 16:56 06/09/17 16:56 06/09/17 16:56 06/09/17 16:56 06/09/17 16:56 - Labs Labs: 06/08/17 05:30 06/08/17 05:30 Attending/Attestation - Attestation I have personally seen and examined this patient.: Yes I have fully participated in the care of the patient.: Yes I have reviewed all pertinent clinical information, including history, physical exam and plan: Yes
--- NOTE | 2017-06-06 11:37 | PN ---
DATE: LOCATION: The patient is in the Transitional Care Unit 319, bed 1. SUBJECTIVE: The patient is admitted for postop care. The patient had a cystoscopy and cauterization of the bladder. The patient has history of congestive heart failure. The patient has history of diabetes mellitus, chronic lung disease. The patient has had an indwelling Avendano catheter for the last two years. The patient is seen this morning. PHYSICAL EXAMINATION: VITAL SIGNS: His pulse is 64, blood pressure 112/53, O2 saturation is 95% on 2 liters of oxygen. LUNGS: Clinically clear. Basal rales present. HEART: Normal sinus rhythm. Cardiac pacemaker is on demand. ABDOMEN: Soft. There are no localizing signs. CENTRAL NERVOUS SYSTEM: Within normal limits. SKIN: The patient has decubitus ulceration of both heels. ASSESSMENT AND PLAN: The patient is getting conservative management at this time. We will continue all his medications. The patient is on ceftazidime/avibactam as an antibiotic that we will continue. The patient is also on amiodarone, vitamin D, digoxin, Lasix. The patient is on prednisone, Lipitor, pantoprazole, Singulair, Pyridium and Synthroid. The patient is also getting vancomycin oral 125 mg p.o. q.i.d. for Clostridium difficile prevention. The patient is also getting respiratory treatment with Xopenex q. 6 hours. Condition is improving. The patient will continue current management and discharge planning for Monday this coming week. We will continue all his medications and follow up on the blood work. Giselle Polk MD [facility]
--- NOTE | 2017-06-06 13:09 | CP.PCM.PN ---
Subjective - Date & Time of Evaluation Date of Evaluation: 06/06/17 Time of Evaluation: 13:05 - Subjective Subjective: 87 year old diabetic male patient was seen by bedside this morning. Patient was sitting comfortably in chair today with no acute distress. Patient admits to pain to bilateral heels right more than left. Patient denies of any other pedal complains. Denies any n/v/f/c/sob/cp. Objective - Vital Signs/Intake and Output Vital Signs (last 24 hours): Temp Pulse Resp BP Pulse Ox 98.0 F 72 95 H 144/72 95 06/06/17 06:00 06/06/17 09:57 06/06/17 06:00 06/06/17 10:02 06/05/17 17:13 Intake and Output: 06/06/17 06/06/17 06:59 18:59 Output Total 2350 Balance -2350 - Medications Medications: Current Medications Amiodarone HCl (Cordarone) 200 mg PO DAILY [facility]NA PRN Reason: Protocol Last Admin: 06/06/17 09:57 Dose: 200 mg Atorvastatin Calcium (Lipitor) 10 mg PO DIN JEANA PRN Reason: Protocol Last Admin: 06/05/17 18:48 Dose: 10 mg Calcium Carbonate (Oscal) 500 mg PO TID [facility]EANA PRN Reason: Protocol Last Admin: 06/06/17 09:59 Dose: 500 mg Digoxin (Lanoxin) 0.125 mg PO 1400 [facility]EANA PRN Reason: Protocol Last Admin: 06/05/17 18:45 Dose: 0.125 mg Docusate Sodium (Colace) 100 mg PO BID [facility]EANA PRN Reason: Protocol Last Admin: 06/06/17 09:56 Dose: 100 mg Doxercalciferol (Hectorol) 0.5 mcg PO DAILY [facility] PRN Reason: Protocol Last Admin: 06/06/17 09:58 Dose: 0.5 mcg Furosemide (Lasix) 40 mg PO BID [facility]EANA PRN Reason: Protocol Last Admin: 06/05/17 18:46 Dose: 40 mg Furosemide (Lasix) 40 mg IV DAILY [facility] Last Admin: 06/06/17 10:02 Dose: 40 mg Ceftazidime/Avibactam 2.5 gm/ (Sodium Chloride) 100 mls @ 50 mls/hr IVPB Q8H [facility]NA PRN Reason: Protocol Stop: 06/08/17 22:01 Last Admin: 06/06/17 06:06 Dose: 50 mls/hr Levalbuterol HCl (Xopenex) 0.63 mg IH [id number] JEANA PRN Reason: Protocol Last Admin: 06/06/17 07:19 Dose: 0.63 mg Levothyroxine Sodium (Synthroid) 100 mcg PO 0600 [facility]NA PRN Reason: Protocol Last Admin: 06/06/17 06:09 Dose: 100 mcg Lidocaine (Lidoderm) 1 ea TD DAILY [facility] Last Admin: 06/06/17 09:59 Dose: 1 ea Montelukast Sodium (Singulair) 10 mg PO DAILY [facility] PRN Reason: Protocol Last Admin: 06/06/17 09:59 Dose: 10 mg Morphine Sulfate (Morphine) 4 mg IVP Q4H PRN; Protocol PRN Reason: Pain, severe (8-10) Ondansetron HCl (Zofran Inj) 4 mg IVP Q4H PRN; Protocol PRN Reason: Nausea/Vomiting Last Admin: 06/03/17 06:56 Dose: 4 mg Pantoprazole Sodium (Protonix Ec Tab) 40 mg PO 0600 [facility]NA PRN Reason: Protocol Last Admin: 06/06/17 06:09 Dose: 40 mg Phenazopyridine HCl (Pyridium) 200 mg PO 0000,0800,1600 [facility] PRN Reason: Protocol Last Admin: 06/06/17 08:31 Dose: 200 mg Polyethylene Glycol (Miralax) 17 gm PO BID [facility] PRN Reason: Protocol Last Admin: 06/06/17 09:59 Dose: Not Given Prednisone (Prednisone Tab) 10 mg PO DAILY [facility] PRN Reason: Protocol Last Admin: 06/06/17 09:59 Dose: Not Given Sodium Phosphate (Fleet Enema) 135 ml RC Q8H PRN; Protocol PRN Reason: Constipation Tramadol HCl (Ultram) 50 mg PO TID [facility] PRN Reason: Protocol Last Admin: 06/06/17 10:01 Dose: 50 mg Vancomycin HCl (Vancocin 25 Mg/Ml (Oral Use)) 125 mg PO QID [facility] PRN Reason: Protocol Last Admin: 06/06/17 10:02 Dose: 125 mg - Labs Labs: 06/04/17 06:17 06/05/17 06:30 - Constitutional Appears: Well, Non-toxic, No Acute Distress - Extremities Exam Additional comments: Lower extremity focused exam: Derm: Dark discoloration noted to bilateral heels measuring approximately 4cm x 4cm for right and 2cm x 2cm for Left. Lesion appears to be of hematoma under epithelial tissue with necrotic changes. No PTB. Mild serous drainage is noted. No sign of acute infection is noted. Vasc: DP and PT pulses non-palpable due to pitting edema. Skin temperature warm to warm from proximal to distal b/l. Neuro: Gross sensation decreased b/l. Ortho: Tenderness on palpation to heels b/l. - Neurological Exam Neurological Exam: Alert, Awake, Oriented x3 - Psychiatric Exam Psychiatric exam: Normal Affect, Normal Mood - Skin Skin Exam: Normal Color, Warm Assessment and Plan - Assessment and Plan (Free Text) Assessment: 87 year old male with Deep tissue injury to bilateral heels Plan: patient examined and evaluated discussed in detail with attending Dr. Lawrence labs, chart, vitals reviewed Bilateral heels dressed with optifoam stressed the importance of wearing offloading boots at all times while in bed Ordered heel-off shoes to ambulating without heel weightbearing podiatry will continue to follow patient while in house
[2017-06-06] MEDS: Digoxin 125 mcg (0.125 mg) Tab PO SCH (13:25)
--- NOTE | 2017-06-06 14:40 | CP.PCM.PN ---
Subjective - Date & Time of Evaluation Date of Evaluation: 06/06/17 Time of Evaluation: 11:45 - Subjective Subjective: Patient is resting comfortably in bed, not in distress, diarrhea is improved, no fevers overnight. Objective - Vital Signs/Intake and Output Vital Signs (last 24 hours): Temp Pulse Resp BP Pulse Ox 98.0 F 72 95 H 144/72 95 06/06/17 06:00 06/06/17 06:00 06/06/17 06:00 06/06/17 06:00 06/05/17 17:13 Intake and Output: 06/06/17 06/06/17 06:59 18:59 Output Total 2350 Balance -2350 - Medications Medications: Current Medications Amiodarone HCl (Cordarone) 200 mg PO DAILY JEANA PRN Reason: Protocol Last Admin: 06/05/17 09:52 Dose: 200 mg Atorvastatin Calcium (Lipitor) 10 mg PO DIN JEANA PRN Reason: Protocol Last Admin: 06/05/17 18:48 Dose: 10 mg Calcium Carbonate (Oscal) 500 mg PO TID JEANA PRN Reason: Protocol Last Admin: 06/05/17 18:48 Dose: 500 mg Digoxin (Lanoxin) 0.125 mg PO 1400 JEANA PRN Reason: Protocol Last Admin: 06/05/17 18:45 Dose: 0.125 mg Docusate Sodium (Colace) 100 mg PO BID EJANA PRN Reason: Protocol Last Admin: 06/05/17 18:43 Dose: 100 mg Doxercalciferol (Hectorol) 0.5 mcg PO DAILY JEANA PRN Reason: Protocol Last Admin: 06/05/17 09:52 Dose: 0.5 mcg Furosemide (Lasix) 40 mg PO BID JEANA PRN Reason: Protocol Last Admin: 06/05/17 18:46 Dose: 40 mg Furosemide (Lasix) 40 mg IV DAILY JEANA Ceftazidime/Avibactam 2.5 gm/ (Sodium Chloride) 100 mls @ 50 mls/hr IVPB Q8H JEANA PRN Reason: Protocol Stop: 06/08/17 22:01 Last Admin: 06/06/17 06:06 Dose: 50 mls/hr Levalbuterol HCl (Xopenex) 0.63 mg IH [id number] JEANA PRN Reason: Protocol Last Admin: 06/06/17 07:19 Dose: 0.63 mg Levothyroxine Sodium (Synthroid) 100 mcg PO 0600 JEANA PRN Reason: Protocol Last Admin: 06/06/17 06:09 Dose: 100 mcg Lidocaine (Lidoderm) 1 ea TD DAILY [facility] Last Admin: 06/05/17 12:47 Dose: 1 ea Montelukast Sodium (Singulair) 10 mg PO DAILY JEANA PRN Reason: Protocol Last Admin: 06/05/17 09:50 Dose: 10 mg Morphine Sulfate (Morphine) 4 mg IVP Q4H PRN; Protocol PRN Reason: Pain, severe (8-10) Ondansetron HCl (Zofran Inj) 4 mg IVP Q4H PRN; Protocol PRN Reason: Nausea/Vomiting Last Admin: 06/03/17 06:56 Dose: 4 mg Pantoprazole Sodium (Protonix Ec Tab) 40 mg PO 0600 [facility] PRN Reason: Protocol Last Admin: 06/06/17 06:09 Dose: 40 mg Phenazopyridine HCl (Pyridium) 200 mg PO 0000,0800,1600 [facility] PRN Reason: Protocol Last Admin: 06/06/17 08:31 Dose: 200 mg Polyethylene Glycol (Miralax) 17 gm PO BID JEANA PRN Reason: Protocol Last Admin: 06/05/17 18:48 Dose: 17 gm Prednisone (Prednisone Tab) 10 mg PO DAILY JEANA PRN Reason: Protocol Last Admin: 06/06/17 08:31 Dose: 10 mg Sodium Phosphate (Fleet Enema) 135 ml RC Q8H PRN; Protocol PRN Reason: Constipation Tramadol HCl (Ultram) 50 mg PO TID JEANA PRN Reason: Protocol Last Admin: 06/05/17 18:52 Dose: 50 mg Vancomycin HCl (Vancocin 25 Mg/Ml (Oral Use)) 125 mg PO QID JEANA PRN Reason: Protocol Last Admin: 06/05/17 22:18 Dose: 125 mg - Labs Labs: 06/04/17 06:17 06/05/17 06:30 - Constitutional Appears: Non-toxic, No Acute Distress - Head Exam Head Exam: NORMAL INSPECTION - Neck Exam Neck Exam: absent: Meningismus - Respiratory Exam Respiratory Exam: Decreased Breath Sounds - Cardiovascular Exam Cardiovascular Exam: +S1, +S2 - GI/Abdominal Exam GI & Abdominal Exam: Soft. absent: Tenderness Assessment and Plan - Assessment and Plan (Free Text) Plan: Assessment Systemic Inflammatory Response Syndrome in a patient who had hematuria S/P cystoscopy, fulguration and irrigation of the bladder, with sepsis from UTI with Carbapenem-resistant Klebsiella consider C. diff. associated diarrhea S/P lower urinary tract infection in a patient with indwelling Avendano catheter growing Carbapenem-resistant Klebsiella history of right foot necrotic ulcer with surrounding cellulitis UTI with Enterococcus and Klebsiella chronic renal failure history of DVT DM metastatic Prostate CA history of Enterococcus UTI chronic atrial fibrillation S/P pacemaker and ICD placement Plan continue Avycaz day 13 - should target 14 days of antibiotics complete 10-14 days of PO Vancomycin as well (day 5) will continue to monitor clinically
--- NOTE | 2017-06-06 15:03 | PN ---
DATE: 06/06/2017 PROGRESS NOTE REASON FOR CONSULTATION: Followup for coronary artery disease, status post AICD, CABG, multiple angioplasties, hematuria, and swelling of the leg. SUBJECTIVE: The patient feels better. Swelling of the legs decreased except right heel ulcer. No chest pain. No shortness of breath. OBJECTIVE: GENERAL: Getting rehab. Not in apparent distress. VITAL SIGNS: Temperature afebrile, heart rate 72, and blood pressure 144/72. HEENT: PERRLA. Extraocular muscles are intact. NECK: Supple. No carotid bruit or thyromegaly. CHEST: Clear to auscultation. HEART: S1 and S2 regular. ABDOMEN: Soft. EXTREMITIES: Clubbing and cyanosis negative. Mild pedal edema on right side. No JVD. LABORATORY DATA: Blood workup as follows: WBC 14.4 as of 06/04/2017, hemoglobin 9.5, hematocrit 30.8. Chemistry as of 06/05, BUN 32, creatinine 1.3. IMPRESSION: Cardiomyopathy, ejection fraction of 45%; history of coronary artery disease; history of status post pre and post-coronary artery bypass graft; status post coronary artery bypass graft; defibrillator; paroxysmal atrial fibrillation. Now, the patient is in normal sinus. Echo: Last echo showed ejection fraction 45%. RECOMMENDATION: Continue physical therapy. Continue antibiotic. Continue amiodarone. Continue Lasix gentle p.o. Continue digoxin. We will follow with you. Periodically, we will assess electrolytes. Thank you Dr. Polk for providing me the opportunity in taking care of the patient. Mely Chavarria MD
--- NOTE | 2017-06-07 00:21 | PN ---
DATE: SUBJECTIVE: This patient was seen and evaluated earlier today. I discussed with the nursing staff. The patient did have 3 bowel movements today slightly . Denies diarrhea. The patient is on MiraLax and also on Colace. C. diff on vancomycin. His rectal discomfort has significantly improved. Abdominal pain has also improved. PHYSICAL EXAMINATION: VITAL SIGNS: Temperature 98, blood pressure 144/72, pulse 72. HEENT: Atraumatic, anicteric. NECK: Supple. HEART: S1 and S2 heard. LUNGS: Bilateral air entry present. ABDOMEN: Soft. There is no tenderness. LABORATORY DATA: No recent labs today. IMPRESSION: This 87-year-old patient admitted with sepsis, urinary tract infection, carbapenem-resistant Klebsiella, rectal discomfort, Clostridium difficile positive on p.o. vancomycin and also on Avycaz. Clinically improving. The patient does have history of prostate CA metastatic. The patient does have long-term indwelling catheter, recurrent urinary tract infections in the past. Chronic atrial fibrillation. Other comorbidities include metastatic prostate cancer, history of DVT, diabetes mellitus, history of atrial fibrillation status post ICD placement. PLAN: discussed with the nursing staff. The plan is to hold off MiraLax if he has any loose bowel movements. We will continue to closely follow up. Thank you very much for allowing us to participate in the care of the patient. Fredi Bal MD
[2017-06-07] MEDS: Levalbuterol 0.63 MG/3 ML Inhal Soln UD IH SCH ×4 (01:14→19:56)
[2017-06-07] MEDS: Levothyroxine 100 MCG TAB PO SCH (05:47)
[2017-06-07] MEDS: Pantoprazole 40 mg EC Tab PO SCH (05:47)
[2017-06-07 07:10] LABS: HEMATOCRIT 30.1 % (42.0-52.0); MEAN CELL VOLUME 89.9 fl (80.0-105.0); MEAN CORPUSCULAR HEMOGLOBIN 27.2 pg (25.0-35.0); MEAN CORPUSCULAR HGB CONC 30.2 g/dl (31.0-37.0); MEAN PLATELET VOLUME 9.4 fl (7.0-11.0); RED CELL DISTRIBUTION WIDTH 16.2 % (11.5-14.5); WHITE BLOOD COUNT 13.1 10^3/ul (4.5-11.0)
[2017-06-07 07:32] LABS: ALB/GLOB RATIO 1.2 (1.1-1.8); BILIRUBIN,TOTAL 0.5 mg/dL (0.2-1.3); CALCIUM 8.2 mg/dL (8.4-10.5); MAGNESIUM 2.5 mg/dL (1.7-2.2); PHOSPHOROUS 3.9 mg/dL (2.5-4.5); POTASSIUM 4.1 mmol/L (3.6-5.0); TOTAL PROTEIN 5.6 g/dL (5.8-8.3)
--- NOTE | 2017-06-07 08:09 | CP.PCM.PN ---
Subjective - Date & Time of Evaluation Date of Evaluation: 06/07/17 Time of Evaluation: 07:35 - Subjective Subjective: Patient is seen this morning in room 319 bed 1. He is complaining of sore in his back. Objective - Vital Signs/Intake and Output Vital Signs (last 24 hours): Temp Pulse Resp BP Pulse Ox 98.0 F 72 95 H 144/72 95 06/06/17 06:00 06/06/17 09:57 06/06/17 06:00 06/06/17 10:02 06/05/17 17:13 Intake and Output: 06/07/17 06/07/17 06:59 18:59 Output Total 1200 Balance -1200 - Medications Medications: Current Medications Amiodarone HCl (Cordarone) 200 mg PO DAILY JEANA PRN Reason: Protocol Last Admin: 06/06/17 09:57 Dose: 200 mg Atorvastatin Calcium (Lipitor) 10 mg PO DIN JEANA PRN Reason: Protocol Last Admin: 06/06/17 18:04 Dose: 10 mg Calcium Carbonate (Oscal) 500 mg PO TID JEANA PRN Reason: Protocol Last Admin: 06/06/17 18:05 Dose: 500 mg Digoxin (Lanoxin) 0.125 mg PO 1400 JEANA PRN Reason: Protocol Last Admin: 06/06/17 13:25 Dose: 0.125 mg Docusate Sodium (Colace) 100 mg PO BID JEANA PRN Reason: Protocol Last Admin: 06/06/17 18:03 Dose: 100 mg Doxercalciferol (Hectorol) 0.5 mcg PO DAILY JEANA PRN Reason: Protocol Last Admin: 06/06/17 09:58 Dose: 0.5 mcg Furosemide (Lasix) 40 mg PO BID JEANA PRN Reason: Protocol Last Admin: 06/05/17 18:46 Dose: 40 mg Furosemide (Lasix) 40 mg IV DAILY [facility] Last Admin: 06/06/17 10:02 Dose: 40 mg Ceftazidime/Avibactam 2.5 gm/ (Sodium Chloride) 100 mls @ 50 mls/hr IVPB Q8H JEANA PRN Reason: Protocol Stop: 06/08/17 22:01 Last Admin: 06/07/17 05:47 Dose: 50 mls/hr Levalbuterol HCl (Xopenex) 0.63 mg IH [id number] JEANA PRN Reason: Protocol Last Admin: 06/07/17 07:22 Dose: 0.63 mg Levothyroxine Sodium (Synthroid) 100 mcg PO 0600 JEANA PRN Reason: Protocol Last Admin: 06/07/17 05:47 Dose: 100 mcg Lidocaine (Lidoderm) 1 ea TD DAILY [facility] Last Admin: 06/06/17 09:59 Dose: 1 ea Montelukast Sodium (Singulair) 10 mg PO DAILY JEANA PRN Reason: Protocol Last Admin: 06/06/17 09:59 Dose: 10 mg Morphine Sulfate (Morphine) 4 mg IVP Q4H PRN; Protocol PRN Reason: Pain, severe (8-10) Ondansetron HCl (Zofran Inj) 4 mg IVP Q4H PRN; Protocol PRN Reason: Nausea/Vomiting Last Admin: 06/03/17 06:56 Dose: 4 mg Pantoprazole Sodium (Protonix Ec Tab) 40 mg PO 0600 [facility] PRN Reason: Protocol Last Admin: 06/07/17 05:47 Dose: 40 mg Phenazopyridine HCl (Pyridium) 200 mg PO 0000,0800,1600 [facility] PRN Reason: Protocol Last Admin: 06/06/17 23:00 Dose: 200 mg Polyethylene Glycol (Miralax) 17 gm PO BID JEANA PRN Reason: Protocol Last Admin: 06/06/17 18:05 Dose: Not Given Prednisone (Prednisone Tab) 10 mg PO DAILY [facility] PRN Reason: Protocol Last Admin: 06/06/17 09:59 Dose: Not Given Sodium Phosphate (Fleet Enema) 135 ml RC Q8H PRN; Protocol PRN Reason: Constipation Tramadol HCl (Ultram) 50 mg PO TID JEANA PRN Reason: Protocol Last Admin: 06/06/17 18:08 Dose: 50 mg Vancomycin HCl (Vancocin 25 Mg/Ml (Oral Use)) 125 mg PO QID JEANA PRN Reason: Protocol Last Admin: 06/06/17 22:56 Dose: 125 mg - Labs Labs: 06/07/17 07:00 06/07/17 07:00 - Constitutional Appears: No Acute Distress - Head Exam Head Exam: ATRAUMATIC, NORMOCEPHALIC - Respiratory Exam Respiratory Exam: Clear to Ausculation Bilateral, NORMAL BREATHING PATTERN - Cardiovascular Exam Cardiovascular Exam: +S1, +S2 - GI/Abdominal Exam GI & Abdominal Exam: Soft, Tenderness, Normal Bowel Sounds - Extremities Exam Extremities Exam: Pedal Edema - Neurological Exam Neurological Exam: Alert, Awake, CN II-XII Intact, Oriented x3 Assessment and Plan - Assessment and Plan (Free Text) Assessment: Sacral decubitus BL deep tissue injury to heels Metastatic prostate cancer COPD Chronic heart failure hypothyroidism DMII Arthritis Plan: Patient is complaining of pain in his back. There is a sacral decubitus. wound care with dressing has been ordered. podiatry on the case for bilateral heel injury. Patient given off loading shoes to wear. continue Lasix. continue physical therapy. hemoglobin is stable at 9.1. continue morphine as needed for pain. continue IV antibiotics as per infectious disease.
[2017-06-07] MEDS: Insulin Human NPH/Reg 70/30 Vial(3 ml) SC SCH ×4 (08:14→21:52)
[2017-06-07] MEDS: Lidocaine 5% Patch TD SCH (10:06)
[2017-06-07] MEDS: POLYETHYLENE GLYCOL 3350 17 GM/Dose PACKET PO SCH ×2 (10:06→17:50)
[2017-06-07] MEDS: Vancomycin 25 MG/ML PO SCH ×4 (10:08→21:49)
--- NOTE | 2017-06-07 12:08 | CP.PCM.PN ---
Subjective - Date & Time of Evaluation Date of Evaluation: 06/07/17 Time of Evaluation: 12:05 - Subjective Subjective: 87 year old diabetic male patient was seen by bedside this morning. Patient was sitting comfortably in chair today with no acute distress. Dressing to bilateral heels appear clean, dry and intact. Patient denies of any other pedal complains. Denies any n/v/f/c/sob/cp. Objective - Vital Signs/Intake and Output Vital Signs (last 24 hours): Temp Pulse Resp BP Pulse Ox 98 F 61 18 143/77 95 06/07/17 10:24 06/07/17 10:24 06/07/17 10:24 06/07/17 10:24 06/07/17 10:24 Intake and Output: 06/07/17 06/07/17 06:59 18:59 Output Total 1200 Balance -1200 - Medications Medications: Current Medications Amiodarone HCl (Cordarone) 200 mg PO DAILY JEANA PRN Reason: Protocol Last Admin: 06/07/17 10:04 Dose: Not Given Atorvastatin Calcium (Lipitor) 10 mg PO DIN JEANA PRN Reason: Protocol Last Admin: 06/06/17 18:04 Dose: 10 mg Calcium Carbonate (Oscal) 500 mg PO TID JEANA PRN Reason: Protocol Last Admin: 06/07/17 10:06 Dose: 500 mg Digoxin (Lanoxin) 0.125 mg PO 1400 JEANA PRN Reason: Protocol Last Admin: 06/06/17 13:25 Dose: 0.125 mg Docusate Sodium (Colace) 100 mg PO BID JEANA PRN Reason: Protocol Last Admin: 06/07/17 10:03 Dose: 100 mg Doxercalciferol (Hectorol) 0.5 mcg PO DAILY JEANA PRN Reason: Protocol Last Admin: 06/07/17 10:03 Dose: 0.5 mcg Furosemide (Lasix) 40 mg PO BID JEANA PRN Reason: Protocol Last Admin: 06/05/17 18:46 Dose: 40 mg Furosemide (Lasix) 40 mg IV DAILY [facility] Last Admin: 06/07/17 10:05 Dose: 40 mg Ceftazidime/Avibactam 2.5 gm/ (Sodium Chloride) 100 mls @ 50 mls/hr IVPB Q8H JEANA PRN Reason: Protocol Stop: 06/08/17 22:01 Last Admin: 06/07/17 05:47 Dose: 50 mls/hr Levalbuterol HCl (Xopenex) 0.63 mg IH [id number] JEANA PRN Reason: Protocol Last Admin: 06/07/17 07:22 Dose: 0.63 mg Levothyroxine Sodium (Synthroid) 100 mcg PO 0600 JEANA PRN Reason: Protocol Last Admin: 06/07/17 05:47 Dose: 100 mcg Lidocaine (Lidoderm) 1 ea TD DAILY JEANA Last Admin: 06/07/17 10:06 Dose: 1 ea Montelukast Sodium (Singulair) 10 mg PO DAILY JEANA PRN Reason: Protocol Last Admin: 06/07/17 10:07 Dose: 10 mg Morphine Sulfate (Morphine) 4 mg IVP Q4H PRN; Protocol PRN Reason: Pain, severe (8-10) Ondansetron HCl (Zofran Inj) 4 mg IVP Q4H PRN; Protocol PRN Reason: Nausea/Vomiting Last Admin: 06/07/17 09:25 Dose: 4 mg Pantoprazole Sodium (Protonix Ec Tab) 40 mg PO 0600 JEANA PRN Reason: Protocol Last Admin: 06/07/17 05:47 Dose: 40 mg Phenazopyridine HCl (Pyridium) 200 mg PO 0000,0800,1600 JEANA PRN Reason: Protocol Last Admin: 06/07/17 08:15 Dose: 200 mg Polyethylene Glycol (Miralax) 17 gm PO BID JEANA PRN Reason: Protocol Last Admin: 06/07/17 10:06 Dose: 17 gm Prednisone (Prednisone Tab) 10 mg PO DAILY JEANA PRN Reason: Protocol Last Admin: 06/07/17 10:07 Dose: 10 mg Sodium Phosphate (Fleet Enema) 135 ml RC Q8H PRN; Protocol PRN Reason: Constipation Tramadol HCl (Ultram) 50 mg PO TID JEANA PRN Reason: Protocol Last Admin: 06/07/17 10:05 Dose: Not Given Vancomycin HCl (Vancocin 25 Mg/Ml (Oral Use)) 125 mg PO QID JEANA PRN Reason: Protocol Last Admin: 06/07/17 10:08 Dose: 125 mg - Labs Labs: 06/07/17 07:00 06/07/17 07:00 - Constitutional Appears: Well, Non-toxic, No Acute Distress - Extremities Exam Additional comments: Lower extremity focused exam: Derm: Dark discoloration noted to bilateral heels measuring approximately 4cm x 4cm for right and 2cm x 2cm for Left. Lesion appears to be of hematoma under epithelial tissue with necrotic changes. No PTB. Mild serous drainage is noted. No sign of acute infection is noted. Vasc: DP and PT pulses non-palpable due to pitting edema. Skin temperature warm to warm from proximal to distal b/l. Neuro: Gross sensation decreased b/l. Ortho: Tenderness on palpation to heels b/l. - Neurological Exam Neurological Exam: Alert, Awake, Oriented x3 - Psychiatric Exam Psychiatric exam: Normal Affect, Normal Mood - Skin Skin Exam: Normal Color, Warm Assessment and Plan - Assessment and Plan (Free Text) Assessment: 87 year old male with Deep tissue injury to bilateral heels Plan: patient examined and evaluated discussed in detail with attending Dr. Lawrence labs, chart, vitals reviewed Bilateral heels dressed with optifoam stressed the importance of wearing offloading boots at all times while in bed Heel-off shoes was delivered and the patient was trained by physical therapy of safe ambulation podiatry will continue to follow patient while in house
[2017-06-07] MEDS: Digoxin 125 mcg (0.125 mg) Tab PO SCH (13:41)
--- NOTE | 2017-06-07 15:30 | CP.PCM.PN ---
Subjective - Date & Time of Evaluation Date of Evaluation: 06/07/17 Time of Evaluation: 10:55 - Subjective Subjective: Comfortable in bed, intermittent abdominal pain but controlled with pain meds, no fevers, diarrhea is improved. Objective - Vital Signs/Intake and Output Vital Signs (last 24 hours): Temp Pulse Resp BP Pulse Ox 98.0 F 72 95 H 144/72 95 06/06/17 06:00 06/06/17 09:57 06/06/17 06:00 06/06/17 10:02 06/05/17 17:13 Intake and Output: 06/07/17 06/07/17 06:59 18:59 Output Total 1200 Balance -1200 - Medications Medications: Current Medications Amiodarone HCl (Cordarone) 200 mg PO DAILY JEANA PRN Reason: Protocol Last Admin: 06/06/17 09:57 Dose: 200 mg Atorvastatin Calcium (Lipitor) 10 mg PO DIN JEANA PRN Reason: Protocol Last Admin: 06/06/17 18:04 Dose: 10 mg Calcium Carbonate (Oscal) 500 mg PO TID JEANA PRN Reason: Protocol Last Admin: 06/06/17 18:05 Dose: 500 mg Digoxin (Lanoxin) 0.125 mg PO 1400 JEANA PRN Reason: Protocol Last Admin: 06/06/17 13:25 Dose: 0.125 mg Docusate Sodium (Colace) 100 mg PO BID JEANA PRN Reason: Protocol Last Admin: 06/06/17 18:03 Dose: 100 mg Doxercalciferol (Hectorol) 0.5 mcg PO DAILY JEANA PRN Reason: Protocol Last Admin: 06/06/17 09:58 Dose: 0.5 mcg Furosemide (Lasix) 40 mg PO BID JEANA PRN Reason: Protocol Last Admin: 06/05/17 18:46 Dose: 40 mg Furosemide (Lasix) 40 mg IV DAILY [facility] Last Admin: 06/06/17 10:02 Dose: 40 mg Ceftazidime/Avibactam 2.5 gm/ (Sodium Chloride) 100 mls @ 50 mls/hr IVPB Q8H JEANA PRN Reason: Protocol Stop: 06/08/17 22:01 Last Admin: 06/07/17 05:47 Dose: 50 mls/hr Levalbuterol HCl (Xopenex) 0.63 mg IH [id number] JEANA PRN Reason: Protocol Last Admin: 06/07/17 07:22 Dose: 0.63 mg Levothyroxine Sodium (Synthroid) 100 mcg PO 0600 JEANA PRN Reason: Protocol Last Admin: 06/07/17 05:47 Dose: 100 mcg Lidocaine (Lidoderm) 1 ea TD DAILY [facility] Last Admin: 06/06/17 09:59 Dose: 1 ea Montelukast Sodium (Singulair) 10 mg PO DAILY JEANA PRN Reason: Protocol Last Admin: 06/06/17 09:59 Dose: 10 mg Morphine Sulfate (Morphine) 4 mg IVP Q4H PRN; Protocol PRN Reason: Pain, severe (8-10) Ondansetron HCl (Zofran Inj) 4 mg IVP Q4H PRN; Protocol PRN Reason: Nausea/Vomiting Last Admin: 06/03/17 06:56 Dose: 4 mg Pantoprazole Sodium (Protonix Ec Tab) 40 mg PO 0600 [facility] PRN Reason: Protocol Last Admin: 06/07/17 05:47 Dose: 40 mg Phenazopyridine HCl (Pyridium) 200 mg PO 0000,0800,1600 [facility] PRN Reason: Protocol Last Admin: 06/07/17 08:15 Dose: 200 mg Polyethylene Glycol (Miralax) 17 gm PO BID JEANA PRN Reason: Protocol Last Admin: 06/06/17 18:05 Dose: Not Given Prednisone (Prednisone Tab) 10 mg PO DAILY [facility] PRN Reason: Protocol Last Admin: 06/06/17 09:59 Dose: Not Given Sodium Phosphate (Fleet Enema) 135 ml RC Q8H PRN; Protocol PRN Reason: Constipation Tramadol HCl (Ultram) 50 mg PO TID JEANA PRN Reason: Protocol Last Admin: 06/06/17 18:08 Dose: 50 mg Vancomycin HCl (Vancocin 25 Mg/Ml (Oral Use)) 125 mg PO QID JEANA PRN Reason: Protocol Last Admin: 06/06/17 22:56 Dose: 125 mg - Labs Labs: 06/07/17 07:00 06/07/17 07:00 - Constitutional Appears: Non-toxic, No Acute Distress - Head Exam Head Exam: NORMAL INSPECTION - ENT Exam ENT Exam: Mucous Membranes Moist - Neck Exam Neck Exam: absent: Meningismus - Respiratory Exam Respiratory Exam: Decreased Breath Sounds - Cardiovascular Exam Cardiovascular Exam: +S1, +S2 - GI/Abdominal Exam GI & Abdominal Exam: Soft. absent: Tenderness Assessment and Plan - Assessment and Plan (Free Text) Plan: Assessment Systemic Inflammatory Response Syndrome in a patient who had hematuria S/P cystoscopy, fulguration and irrigation of the bladder, with sepsis from UTI with Carbapenem-resistant Klebsiella consider C. diff. associated diarrhea S/P lower urinary tract infection in a patient with indwelling Avendano catheter growing Carbapenem-resistant Klebsiella history of right foot necrotic ulcer with surrounding cellulitis UTI with Enterococcus and Klebsiella chronic renal failure history of DVT DM metastatic Prostate CA history of Enterococcus UTI chronic atrial fibrillation S/P pacemaker and ICD placement Plan continue Avycaz day 14 - should target 14 days of antibiotics - will d/c after today complete 10-14 days of PO Vancomycin as well (day 6) will continue to monitor clinically
--- NOTE | 2017-06-07 15:54 | PN ---
SUBJECTIVE: The patient is currently seen and ambulating down the floor on the TCU. He does appear to have mild blood tinged urine in the catheter, but urine in collecting bag is clear yellow. MEDICATIONS: Medications are reviewed. The patient is on currently on ceftazidime/avibactam, Colace, amiodarone, Fleet Enema, Hectorol, Lanoxin, Lasix, Lidoderm, Lipitor, MiraLax, morphine, Os-Pedro, prednisone, Protonix, Pyridium, Singulair, Synthroid, Ultram, oral vancomycin, Xopenex, and Zofran p.r.n. OBJECTIVE: VITAL SIGNS: Blood pressure 143/77, temperature 98, respiratory rate 18 with pulse of 61. HEENT: Shows him to be normocephalic and atraumatic. Conjunctivae are pale. Sclerae nonicteric. NECK: Supple. No neck vein distention. CHEST: Clear to auscultation and percussion. No rales, no rhonchi, no wheezing. CARDIOVASCULAR: Shows regular rate and rhythm with AICD. No audible murmurs, rubs, or gallops noted. ABDOMEN: Soft. Bowel sounds are normal. No rebound, no guarding, no masses. EXTREMITIES: Show trace lower extremity pitting edema. No cyanosis or clubbing. The patient does have an indwelling Avendano catheter. LABORATORY DATA AND IMAGING: Labs today: White blood cell count 13.1 improved, hemoglobin slighter lower at 9.1 with platelet count 311,000. Chemistries showed normal electrolytes. Chloride 93 with a CO2 of 35. BUN is slightly higher at 39 from 29 three days ago. Creatinine is up from 1.2 to 1.5. Glucose 123, calcium 8.2. Phosphorus was 3.9 with magnesium level of 2.5, albumin is 3.0. ASSESSMENT: 1. Status post acute renal failure with a baseline chronic kidney disease stage II/III. The patient's BUN and creatinine are slightly high. The patient remains on steroids and diuretics. He is status post bladder irrigation for clots and a nonfunctioning Avendano catheter. 2. History of metastatic prostate cancer, currently stable. 3. History of hypertension. Blood pressure controlled on present medical therapy. 4. History of arteriosclerotic heart disease, status post percutaneous transluminal coronary angioplasty, coronary artery bypass graft, status post automatic implantable cardioverter-defibrillator placement. 5. History of chronic obstructive pulmonary disease, currently stable on current medical therapy. 6. History of hypothyroidism, stable on thyroid replacement therapy. 7. History of Klebsiella urinary tract infection, resistant to multiple drugs, he remains on IV antibiotic therapy for the duration of the course of antibiotics in the TCU. 8. Status post mild hypocalcemia, this has corrected. PLAN: 1. Complete the course of IV antibiotics for his Klebsiella urinary tract infection. 2. The patient will continue oral diuretic therapy. I suggest discontinuation of IV diuretic therapy as his BUN and creatinine are starting to rise. 3. If able, try and decrease steroid dose. Lowering the diuretic therapy and decreasing the steroid dose will have a positive effect on his BUN and creatinine. 4. Monitor the patient for any further hematuria. He does have blood tinged urine in the Avendano catheter itself. Choco White MD
--- NOTE | 2017-06-07 20:15 | PN ---
DATE: 06/07/2017 REASON FOR CONSULTATION: Followup for coronary artery disease, status post AICD, CABG, multiple angioplasties, hematuria, swelling of legs. SUBJECTIVE: The patient denies chest pain, shortness of breath, or palpitation. The pelvic area pain is also getting better. He still has indwelling catheter. PHYSICAL EXAMINATION: VITAL SIGNS: Blood pressure 143/77, respirations 18, pulse 61, temperature 98. HEENT: Head is normocephalic. Eyes, pupils normal. Conjunctivae slightly pale. NECK: JVP low. Carotids equal. Thorax, AP diameter normal. LUNGS: Clear. CARDIOVASCULAR: S1 and S2. ABDOMEN: Soft. No tenderness. No organomegaly. Bowel sounds normal. EXTREMITIES: No clubbing. No cyanosis. LABORATORY DATA: WBC 13.1, hemoglobin 9.1, hematocrit 30.1, platelet count 311. Sodium 135, potassium 4.1, BUN 39, creatinine 1.5, random glucose 123, calcium 8.2, phosphorus 3.9, magnesium 2.5, AST 55, ALT 57, total protein 5.6, albumin 3.0. DIAGNOSES: Cardiomyopathy, ejection fraction 45%; status post automatic implantable cardioverter-defibrillator insertion; history of coronary artery disease; coronary artery bypass grafting; multiple stents and angioplasties; paroxysmal atrial fibrillation; anemia; hematuria; renal dysfunction. PLAN: Plan is to continue physical therapy. Continue antibiotics. Amiodarone 200 mg daily, insulin as ordered, digoxin 0.25 mg daily, furosemide 40 mg daily, Lipitor 10 mg daily, prednisone 10 mg daily, Protonix 40 mg daily, Singulair 10 mg daily, Synthroid 100 mcg p.o. daily. We will follow with you. Mely Walters MD
--- NOTE | 2017-06-08 01:30 | PN ---
DATE: 06/07/2017 This is [facility] visit on the TCU floor transitional care. For Dr. Carballo. SUBJECTIVE: The patient is 87-year-old male, seen sitting up in bed with main complaint that of his heel discomfort for which he reports he is to have a visit with Dr. Lawrence, Podiatry tomorrow. With this, the patient is otherwise reporting he feels better with no further spasms in his bladder. With tranexamic acid, no longer being taken at this point. His anemic indices unfortunately has progressed with hemoglobin now 9.1, this is something we will watch. PHYSICAL EXAMINATION VITAL SIGNS: Temperature 98, pulse 70, respirations 14, blood pressure 121/70, pulse ox 95%. HEENT: Unremarkable. NECK: Supple. CARDIOPULMONARY: Regular rate with known pacer and defibrillator. LUNGS: Clear. ABDOMEN: Soft, nontender with Avendano in situ. EXTREMITIES: A +1 edema with bilateral eschars to the heels. NEUROLOGIC: Awake, alert and oriented. LABORATORY DATA: The patient's labs were done. White blood cell count of 13.1, hemoglobin 9.1 dropped from 9.4 yesterday, hematocrit 30.1, platelet count 311,000. A chem metabolic panel showing a BUN of 39, creatinine 1.5, being followed by with a nonfasting glucose of 307, magnesium 2.5, ALT of 57. 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 PLAN: The plan for this patient is to continue his present medical regimen with the labs to be monitored. The patient will be monitored clinically. Consult with Dr. Lawrence, his [employer] as per the patient's request. The patient's labs were monitored. The patient is monitored clinically. Prognosis for this patient is guarded. Aram Hutchins MD
[2017-06-08] MEDS: Levalbuterol 0.63 MG/3 ML Inhal Soln UD IH SCH ×4 (01:49→19:55)
[2017-06-08] MEDS: Pantoprazole 40 mg EC Tab PO SCH (05:30)
[2017-06-08] MEDS: Levothyroxine 100 MCG TAB PO SCH (05:30)
[2017-06-08 06:41] LABS: MEAN CELL VOLUME 90.1 fl (80.0-105.0); MEAN CORPUSCULAR HEMOGLOBIN 27.6 pg (25.0-35.0); MEAN CORPUSCULAR HGB CONC 30.7 g/dl (31.0-37.0); MEAN PLATELET VOLUME 9.3 fl (7.0-11.0); RED CELL DISTRIBUTION WIDTH 16.1 % (11.5-14.5)
[2017-06-08 06:47] LABS: ALB/GLOB RATIO 1.1 (1.1-1.8); BILIRUBIN,TOTAL 0.7 mg/dL (0.2-1.3); CALCIUM 8.6 mg/dL (8.4-10.5); POTASSIUM 4.1 mmol/L (3.6-5.0); TOTAL PROTEIN 5.8 g/dL (5.8-8.3)
--- NOTE | 2017-06-08 08:20 | CP.PCM.PN ---
Subjective - Date & Time of Evaluation Date of Evaluation: 06/08/17 Time of Evaluation: 07:55 - Subjective Subjective: Patient is seen this morning. He is doing better. Denies chest pain or shortness of breath. Objective - Vital Signs/Intake and Output Vital Signs (last 24 hours): Temp Pulse Resp BP Pulse Ox 98.0 F 70 14 121/70 95 06/07/17 16:23 06/07/17 16:23 06/07/17 16:23 06/07/17 16:23 06/07/17 10:24 Intake and Output: 06/08/17 06/08/17 06:59 18:59 Output Total 1800 Balance -1800 - Medications Medications: Current Medications Amiodarone HCl (Cordarone) 200 mg PO DAILY [facility] PRN Reason: Protocol Last Admin: 06/07/17 10:04 Dose: Not Given Atorvastatin Calcium (Lipitor) 10 mg PO DIN [facility] PRN Reason: Protocol Last Admin: 06/07/17 17:51 Dose: 10 mg Calcium Carbonate (Oscal) 500 mg PO TID [facility] PRN Reason: Protocol Last Admin: 06/07/17 17:50 Dose: 500 mg Digoxin (Lanoxin) 0.125 mg PO 1400 [facility] PRN Reason: Protocol Last Admin: 06/07/17 13:41 Dose: 0.125 mg Docusate Sodium (Colace) 100 mg PO BID [facility] PRN Reason: Protocol Last Admin: 06/07/17 17:50 Dose: 100 mg Doxercalciferol (Hectorol) 0.5 mcg PO DAILY [facility] PRN Reason: Protocol Last Admin: 06/07/17 10:03 Dose: 0.5 mcg Furosemide (Lasix) 40 mg PO DAILY [facility] Ceftazidime/Avibactam 2.5 gm/ (Sodium Chloride) 100 mls @ 50 mls/hr IVPB Q8H [facility] PRN Reason: Protocol Stop: 06/08/17 22:01 Last Admin: 06/08/17 05:31 Dose: 50 mls/hr Levalbuterol HCl (Xopenex) 0.63 mg IH [id number] [facility] PRN Reason: Protocol Last Admin: 06/08/17 07:29 Dose: 0.63 mg Levothyroxine Sodium (Synthroid) 100 mcg PO 0600 [facility] PRN Reason: Protocol Last Admin: 06/08/17 05:30 Dose: 100 mcg Lidocaine (Lidoderm) 1 ea TD DAILY [facility] Last Admin: 06/07/17 10:06 Dose: 1 ea Montelukast Sodium (Singulair) 10 mg PO DAILY [facility] PRN Reason: Protocol Last Admin: 06/07/17 10:07 Dose: 10 mg Morphine Sulfate (Morphine) 4 mg IVP Q4H PRN; Protocol PRN Reason: Pain, severe (8-10) Ondansetron HCl (Zofran Inj) 4 mg IVP Q4H PRN; Protocol PRN Reason: Nausea/Vomiting Last Admin: 06/07/17 09:25 Dose: 4 mg Pantoprazole Sodium (Protonix Ec Tab) 40 mg PO 0600 [facility] PRN Reason: Protocol Last Admin: 06/08/17 05:30 Dose: 40 mg Phenazopyridine HCl (Pyridium) 200 mg PO 0000,0800,1600 [facility] PRN Reason: Protocol Last Admin: 06/08/17 00:15 Dose: 200 mg Polyethylene Glycol (Miralax) 17 gm PO BID [facility] PRN Reason: Protocol Last Admin: 06/07/17 17:50 Dose: 17 gm Prednisone (Prednisone Tab) 10 mg PO DAILY [facility] PRN Reason: Protocol Last Admin: 06/07/17 10:07 Dose: 10 mg Sodium Phosphate (Fleet Enema) 135 ml RC Q8H PRN; Protocol PRN Reason: Constipation Tramadol HCl (Ultram) 50 mg PO TID [facility] PRN Reason: Protocol Last Admin: 06/07/17 17:51 Dose: Not Given Vancomycin HCl (Vancocin 25 Mg/Ml (Oral Use)) 125 mg PO QID [facility] PRN Reason: Protocol Last Admin: 06/07/17 21:49 Dose: 125 mg - Labs Labs: 06/08/17 05:30 06/08/17 05:30 - Constitutional Appears: No Acute Distress - Head Exam Head Exam: ATRAUMATIC, NORMOCEPHALIC - Respiratory Exam Respiratory Exam: Clear to Ausculation Bilateral, NORMAL BREATHING PATTERN - Cardiovascular Exam Cardiovascular Exam: +S1, +S2 - GI/Abdominal Exam GI & Abdominal Exam: Soft, Tenderness, Normal Bowel Sounds - Neurological Exam Neurological Exam: Alert, Awake, Oriented x3 Assessment and Plan - Assessment and Plan (Free Text) Assessment: Deconditioning BL heel injury Sacral decubitus Chronic heart failure CAD COPD Hypothyroidism DMII Arthritis Plan: Patient is seen this morning in room 319 bed 1. He is sitting up in bed, with offloading boots on. Podiatry consult appreciated. continue wound care. Patient finished 14 days of antibiotics for sepsis. continue physical therapy
[2017-06-08] MEDS: Insulin Human NPH/Reg 70/30 Vial(3 ml) SC SCH ×4 (08:48→22:22)
--- NOTE | 2017-06-08 09:50 | RAD ---
PROCEDURE: Radiographs of the right calcaneus/hindfoot. HISTORY: stage 3 decubitus - evaluate heel right foot COMPARISON: None available. TECHNIQUE: Frontal and lateral radiographs of the calcaneus. FINDINGS: No fracture or joint dislocation. No focal lesion. No calcaneal spur. No osseous erosion or periosteal reaction. IMPRESSION: Unremarkable radiographs of the right calcaneus /hindfoot. No plain radiographic evidence of osteomyelitis.
--- NOTE | 2017-06-08 10:03 | RAD ---
PROCEDURE: Radiographs of the left calcaneus/hindfoot. HISTORY: stage 3 decubitus ulcer - evaluate heel left foot COMPARISON: None available. TECHNIQUE: Frontal and lateral radiographs of the calcaneus. FINDINGS: No fracture or joint dislocation. No focal lesion. No calcaneal spur. IMPRESSION: Unremarkable radiographs of the left calcaneus /hindfoot. No plain radiographic evidence of osteomyelitis.
--- NOTE | 2017-06-08 10:51 | CP.PCM.PN ---
Subjective - Date & Time of Evaluation Date of Evaluation: 06/08/17 Time of Evaluation: 09:55 - Subjective Subjective: Patient is doing his physical therapy well. Diarrhea is improved (but is on a laxative). No fevers. Objective - Vital Signs/Intake and Output Vital Signs (last 24 hours): Temp Pulse Resp BP Pulse Ox 98.0 F 70 14 121/70 95 06/07/17 16:23 06/07/17 16:23 06/07/17 16:23 06/07/17 16:23 06/07/17 10:24 Intake and Output: 06/08/17 06/08/17 06:59 18:59 Output Total 1800 Balance -1800 - Medications Medications: Current Medications Amiodarone HCl (Cordarone) 200 mg PO DAILY [facility] PRN Reason: Protocol Last Admin: 06/07/17 10:04 Dose: Not Given Atorvastatin Calcium (Lipitor) 10 mg PO DIN [facility] PRN Reason: Protocol Last Admin: 06/07/17 17:51 Dose: 10 mg Calcium Carbonate (Oscal) 500 mg PO TID [facility] PRN Reason: Protocol Last Admin: 06/07/17 17:50 Dose: 500 mg Digoxin (Lanoxin) 0.125 mg PO 1400 [facility] PRN Reason: Protocol Last Admin: 06/07/17 13:41 Dose: 0.125 mg Docusate Sodium (Colace) 100 mg PO BID [facility] PRN Reason: Protocol Last Admin: 06/07/17 17:50 Dose: 100 mg Doxercalciferol (Hectorol) 0.5 mcg PO DAILY [facility] PRN Reason: Protocol Last Admin: 06/07/17 10:03 Dose: 0.5 mcg Furosemide (Lasix) 40 mg PO DAILY [facility] Levalbuterol HCl (Xopenex) 0.63 mg IH [id number] [facility] PRN Reason: Protocol Last Admin: 06/08/17 07:29 Dose: 0.63 mg Levothyroxine Sodium (Synthroid) 100 mcg PO 0600 [facility] PRN Reason: Protocol Last Admin: 06/08/17 05:30 Dose: 100 mcg Lidocaine (Lidoderm) 1 ea TD DAILY [facility] Last Admin: 06/07/17 10:06 Dose: 1 ea Montelukast Sodium (Singulair) 10 mg PO DAILY [facility] PRN Reason: Protocol Last Admin: 06/07/17 10:07 Dose: 10 mg Morphine Sulfate (Morphine) 4 mg IVP Q4H PRN; Protocol PRN Reason: Pain, severe (8-10) Ondansetron HCl (Zofran Inj) 4 mg IVP Q4H PRN; Protocol PRN Reason: Nausea/Vomiting Last Admin: 06/07/17 09:25 Dose: 4 mg Pantoprazole Sodium (Protonix Ec Tab) 40 mg PO 0600 [facility] PRN Reason: Protocol Last Admin: 06/08/17 05:30 Dose: 40 mg Phenazopyridine HCl (Pyridium) 200 mg PO 0000,0800,1600 [facility] PRN Reason: Protocol Last Admin: 06/08/17 00:15 Dose: 200 mg Polyethylene Glycol (Miralax) 17 gm PO BID [facility] PRN Reason: Protocol Last Admin: 06/07/17 17:50 Dose: 17 gm Prednisone (Prednisone Tab) 10 mg PO DAILY [facility] PRN Reason: Protocol Last Admin: 06/07/17 10:07 Dose: 10 mg Sodium Phosphate (Fleet Enema) 135 ml RC Q8H PRN; Protocol PRN Reason: Constipation Tramadol HCl (Ultram) 50 mg PO TID [facility] PRN Reason: Protocol Last Admin: 06/07/17 17:51 Dose: Not Given Vancomycin HCl (Vancocin 25 Mg/Ml (Oral Use)) 125 mg PO QID [facility] PRN Reason: Protocol Last Admin: 06/07/17 21:49 Dose: 125 mg - Labs Labs: 06/08/17 05:30 06/08/17 05:30 - Constitutional Appears: Non-toxic, No Acute Distress - Head Exam Head Exam: NORMAL INSPECTION - ENT Exam ENT Exam: Mucous Membranes Moist - Neck Exam Neck Exam: absent: Meningismus - Respiratory Exam Respiratory Exam: Decreased Breath Sounds - Cardiovascular Exam Cardiovascular Exam: +S1, +S2 - GI/Abdominal Exam GI & Abdominal Exam: Soft. absent: Tenderness Assessment and Plan - Assessment and Plan (Free Text) Plan: Assessment Systemic Inflammatory Response Syndrome in a patient who had hematuria S/P cystoscopy, fulguration and irrigation of the bladder, with sepsis from UTI with Carbapenem-resistant Klebsiella, clinically improved consider C. diff. associated diarrhea, slowly improving S/P lower urinary tract infection in a patient with indwelling Avendano catheter growing Carbapenem-resistant Klebsiella history of right foot necrotic ulcer with surrounding cellulitis UTI with Enterococcus and Klebsiella chronic renal failure history of DVT DM metastatic Prostate CA history of Enterococcus UTI chronic atrial fibrillation S/P pacemaker and ICD placement Plan will d/c Avycaz (completed 14 days of antibiotics) complete 10-14 days of PO Vancomycin as well (day 7) will continue to follow clinically
--- NOTE | 2017-06-08 10:51 | CP.PCM.PN ---
<Barrington Camarena - Last Filed: 06/08/17 10:47> Subjective - Date & Time of Evaluation Date of Evaluation: 06/08/17 Time of Evaluation: 07:30 - Subjective Subjective: Heme/onc note for Dr Carballo: Pt seen and examined at bedside. No pain at this time. No episodes of hematuria. Denies any f/c, n/v/d, palpitations, urinary or bm changes. Objective - Vital Signs/Intake and Output Vital Signs (last 24 hours): Temp Pulse Resp BP Pulse Ox 98.0 F 70 14 121/70 95 06/07/17 16:23 06/07/17 16:23 06/07/17 16:23 06/07/17 16:23 06/07/17 10:24 Intake and Output: 06/08/17 06/08/17 06:59 18:59 Intake Total 200 Output Total 1800 1800 Balance -1800 -1600 - Medications Medications: Current Medications Amiodarone HCl (Cordarone) 200 mg PO DAILY [facility] PRN Reason: Protocol Last Admin: 06/07/17 10:04 Dose: Not Given Atorvastatin Calcium (Lipitor) 10 mg PO DIN [facility] PRN Reason: Protocol Last Admin: 06/07/17 17:51 Dose: 10 mg Calcium Carbonate (Oscal) 500 mg PO TID [facility] PRN Reason: Protocol Last Admin: 06/07/17 17:50 Dose: 500 mg Digoxin (Lanoxin) 0.125 mg PO 1400 [facility] PRN Reason: Protocol Last Admin: 06/07/17 13:41 Dose: 0.125 mg Docusate Sodium (Colace) 100 mg PO BID [facility] PRN Reason: Protocol Last Admin: 06/07/17 17:50 Dose: 100 mg Doxercalciferol (Hectorol) 0.5 mcg PO DAILY [facility] PRN Reason: Protocol Last Admin: 06/07/17 10:03 Dose: 0.5 mcg Furosemide (Lasix) 40 mg PO DAILY [facility] Levalbuterol HCl (Xopenex) 0.63 mg IH [id number] [facility] PRN Reason: Protocol Last Admin: 06/08/17 07:29 Dose: 0.63 mg Levothyroxine Sodium (Synthroid) 100 mcg PO 0600 [facility] PRN Reason: Protocol Last Admin: 06/08/17 05:30 Dose: 100 mcg Lidocaine (Lidoderm) 1 ea TD DAILY [facility] Last Admin: 06/07/17 10:06 Dose: 1 ea Montelukast Sodium (Singulair) 10 mg PO DAILY [facility] PRN Reason: Protocol Last Admin: 06/07/17 10:07 Dose: 10 mg Morphine Sulfate (Morphine) 4 mg IVP Q4H PRN; Protocol PRN Reason: Pain, severe (8-10) Ondansetron HCl (Zofran Inj) 4 mg IVP Q4H PRN; Protocol PRN Reason: Nausea/Vomiting Last Admin: 06/07/17 09:25 Dose: 4 mg Pantoprazole Sodium (Protonix Ec Tab) 40 mg PO 0600 [facility] PRN Reason: Protocol Last Admin: 06/08/17 05:30 Dose: 40 mg Phenazopyridine HCl (Pyridium) 200 mg PO 0000,0800,1600 [facility] PRN Reason: Protocol Last Admin: 06/08/17 08:43 Dose: 200 mg Polyethylene Glycol (Miralax) 17 gm PO BID [facility] PRN Reason: Protocol Last Admin: 06/07/17 17:50 Dose: 17 gm Prednisone (Prednisone Tab) 10 mg PO DAILY [facility] PRN Reason: Protocol Last Admin: 06/07/17 10:07 Dose: 10 mg Sodium Phosphate (Fleet Enema) 135 ml RC Q8H PRN; Protocol PRN Reason: Constipation Tramadol HCl (Ultram) 50 mg PO TID [facility] PRN Reason: Protocol Last Admin: 06/07/17 17:51 Dose: Not Given Vancomycin HCl (Vancocin 25 Mg/Ml (Oral Use)) 125 mg PO QID [facility] PRN Reason: Protocol Last Admin: 06/07/17 21:49 Dose: 125 mg - Labs Labs: 06/08/17 05:30 06/08/17 05:30 - Constitutional Appears: No Acute Distress - Head Exam Head Exam: ATRAUMATIC - Eye Exam Eye Exam: EOMI, PERRL - ENT Exam ENT Exam: Mucous Membranes Moist - Respiratory Exam Respiratory Exam: Clear to Ausculation Bilateral. absent: Rales, Wheezes - Cardiovascular Exam Cardiovascular Exam: REGULAR RHYTHM, RRR, +S1, +S2 - GI/Abdominal Exam GI & Abdominal Exam: Soft. absent: Distended, Tenderness - Extremities Exam Extremities Exam: absent: Calf Tenderness, Pedal Edema - Neurological Exam Neurological Exam: Alert, Awake, Oriented x3 - Skin Skin Exam: Dry, Intact, Normal Color, Warm Assessment and Plan - Assessment and Plan (Free Text) Assessment: 87 M with history of stage 4 castrate resistant prostate cancer, chronic heart failure, COPD, DMII, coronary artery disease, hypothyroidism, and arthritis who was admitted for hematuria and blood clots. Pt is s/p cystoscopy with evacuation of clots, cath replacement, with continuous bladder irrigation. s/p bladder fulguration. In the TCU for deconditioning and cont antibiotics. Plan: - PT for gait training and strengthening - To follow up with Dr Carballo about the drug Cytoxin as outpt - Urology recs appreciated - To cont Zytiga once home - ID consulted - on Ceftazadine target of 10 days, cont Vanco PO 125mg Q6H for C.diff antigen positive - Cont with Pyridium - Prednisone 10mg daily Case and plan was reviewed and discussed in detail with Dr Carballo. <Rogelio Carballo - Last Filed: 06/09/17 23:19> Objective - Vital Signs/Intake and Output Vital Signs (last 24 hours): Temp Pulse Resp BP Pulse Ox 97.3 F L 72 20 131/66 97 06/09/17 16:56 06/09/17 16:56 06/09/17 16:56 06/09/17 16:56 06/09/17 16:56 - Labs Labs: 06/08/17 05:30 06/08/17 05:30 Attending/Attestation - Attestation I have personally seen and examined this patient.: Yes I have fully participated in the care of the patient.: Yes I have reviewed all pertinent clinical information, including history, physical exam and plan: Yes
[2017-06-08] MEDS: Vancomycin 25 MG/ML PO SCH ×4 (10:56→23:28)
[2017-06-08] MEDS: Lidocaine 5% Patch TD SCH (10:57)
[2017-06-08] MEDS: POLYETHYLENE GLYCOL 3350 17 GM/Dose PACKET PO SCH (11:01)
--- NOTE | 2017-06-08 12:25 | PN ---
SUBJECTIVE: The patient is currently seen ambulating in the room. He anticipates being discharged tomorrow. He has completed his course of IV antibiotics for his Klebsiella urinary tract infection. MEDICATIONS: Medication list reviewed. The patient is currently on Colace, amiodarone, Fleet Enema, Hectorol, Lanoxin, p.o. Lasix, Lidoderm, Lipitor, MiraLax, morphine, Os-Pedro, prednisone, Protonix, Pyridium, Singulair, Synthroid, Ultram, oral vancomycin, Xopenex and Zofran p.r.n. OBJECTIVE: VITAL SIGNS: Blood pressure 121/70, temperature 98, respiratory rate 14 and the pulse is 70. HEENT: Normocephalic and atraumatic. Conjunctivae remain pale. Sclerae nonicteric. NECK: Supple. No neck vein distention. CHEST: Clear to auscultation and percussion. No rales, no rhonchi and no wheezing. CARDIOVASCULAR: Shows regular rate and rhythm with an AICD. No audible murmurs, rubs or gallops noted. ABDOMEN: Soft. Bowel sounds are normal. No rebound, no guarding and no masses. EXTREMITIES: Show no significant lower extremity edema. No cyanosis or clubbing. The patient does have an indwelling Avendano catheter. LABORATORY DATA AND IMAGING: CBC; white blood cell count 13,000, hemoglobin 9.2 and platelet count is 350,000. Chemistries; sodium 135, potassium 4.1, chloride stable at 93 with a CO2 of 34, BUN 39 with a creatinine of 1.4. Glucose is 104. Calcium is 8.6. Albumin remains stable at 3.0. ASSESSMENT: 1. Status post acute renal failure with a baseline of chronic kidney disease stage II/III. The patient's BUN and creatinine is slightly higher, possibly secondary to the continued use of diuretics together with oral steroids. Presently, the patient has a Avendano in place draining urine without any clots or obstruction of the catheter. 2. History of metastatic prostate cancer, currently stable. 3. History of hypertension, blood pressure controlled on present medical therapy. 4. History of ASHD, status post PTCA, CABG, status post AICD. 5. History of chronic obstructive pulmonary disease, currently stable on current medical therapy. 6. History of hypothyroidism, the patient continues thyroid replacement therapy. 7. Status post Klebsiella urinary tract infection, bacteria was resistant to multiple drugs and he remained on IV antibiotics during the acute part of the hospitalization and for the most of the stay in the TCU. 8. Mild anemia, likely secondary to sepsis and secondary to mild chronic kidney disease, also possibly secondary to gross hematuria with clots which have resolved. PLAN: 1. Agree with the patient's completion of his course of antibiotics for his Klebsiella urinary tract infection. 2. The patient may continue oral diuretic therapy, IV diuretics have been discontinued. Hoping to see plateauing of his BUN and creatinine at the present range. 3. Attempt to decrease steroid dose. 4. Tentative discharge scheduled for tomorrow. Over the next 24 hours, we will continue to monitor his Avendano catheter for any further blood tinged urine. Choco White MD
[2017-06-08] MEDS: Digoxin 125 mcg (0.125 mg) Tab PO SCH (13:10)
--- NOTE | 2017-06-08 14:20 | PN ---
DATE: 06/08/2017 TIME OF CONSULTATION: 07:15 hours. LOCATION OF CONSULTATION: [facility] T[facility], room 319, bed 1. SUBJECTIVE: This is an 87-year-old male patient known to me who was admitted in severe distress following treatment for chronic hematuria by Dr. Louise secondary to advanced prostate cancer. He has been recovering from a prolonged hospitalization in rehabilitation facility and during this time developed bilateral heel decubitus. He has had the same previous hospitalizations over the last several years. He currently reports feeling better having the resident clean and dress the wounds with Optifoam bandage. More importantly, he has been dispensed bilateral in bed heel offloading boots to wear and has been dispensed bilateral heel offloading shoes to walk when he does his rehabilitation. He reports no severe pain except with direct palpation of the heels on both side and is anticipating ultimate discharge home from the TCU shortly. OBJECTIVE: GENERAL: He is alert and oriented x3 lying in bed comfortably. VITAL SIGNS: His morning vital signs are stable. He is in no acute distress. EXTREMITIES: Examination of both lower extremities reveals simple calves without calf tenderness and negative Homans sign bilaterally. The pulses are weak and absent on both sides because of his PAD status. He has no foot edema. The bandages are removed from both heels. There is a stage III decubitus ulceration on the posterolateral aspect of the right heel and the posterior central aspect of the left heel. Left heel is larger measuring approximately 5 to 6 cm in diameter. The right heel measures approximately 3 cm in diameter. There has been some sloughing of the overlying macerated epidermis and the hemorrhagic dermis on the left side. There is no significant discharge. There is no evidence of abscess formation. There is no proximal lymphangitis or streaking. LABORATORY DATA: Reviewed. His white count remains somewhat elevated. There is no x-ray reports that visible in the current medical record. ASSESSMENT: Stage IV prostate carcinoma. The patient with chronic recurring hematuria with chronic renal failure and chronic atrial fibrillation with pacemaker placement and history of deep venous thrombosis with peripheral artery disease and bilateral stage III decubitus ulcers on both heels. PLAN: Discussed with the patient the wounds are exposed and cleaned with saline dry and dry Optifoam bandages applied to both. The patient is then refitted into his Multi Podus heel offloading devices for wearing every time he is in bed or recliner chair and he will use the heel offloading shoes when ambulatory. We will order x-rays of both heels to be obtained prior to discharge from the TCU for evaluation and we will follow up with the patient at home as outpatient after discharge. Sixto Lawrence DPM
--- NOTE | 2017-06-08 16:14 | PN ---
UROLOGIC PROGRESS NOTE DATE OF SERVICE: 06/08/2017 SUBJECTIVE: The patient is seen in his room on the Transitional Care Unit. PHYSICAL EXAMINATION: VITAL SIGNS: He was afebrile, temperature of 98, pulse 66, BP 143/52, respirations 18. ABDOMEN: Soft, nontender, nondistended. There is no costovertebral angle tenderness. Bladder is not palpably distended. GENITOURINARY: Phallus is normal. There is a Avendano catheter in place. It is draining clear Pyridium-colored urine off CBI. LABORATORY DATA: WBC count is down to 13. IMPRESSION AND PLAN: Hematuria has resolved after fulguration. The patient has a history of castrate-resistant metastatic prostate cancer, recurrent gross hematuria with clot retention. Urologically, the patient appears to be stable. His urine is going to be colonized as he has had the Avendano catheter in for many years. The patient can be discharged from the urologic standpoint when he is medically stable. He remains in guarded condition given his age, cardiac status, and metastatic cancer. The patient should follow up in my office in a few weeks to have the Avendano catheter changed. If recurrent bleeding occurs, the plan will be to place a cystostomy tube as possibly the tube is rubbing in the prostatic fossa and causing recurrent bleeding. I will sign off for now and the patient will be seen as an outpatient in my office. Eddie Louise MD
--- NOTE | 2017-06-08 19:22 | PN ---
DATE: LOCATION: The patient in room 319, bed 1. REASON FOR CONSULTATION: Followup his coronary artery disease status post AICD, CABG, multiple angioplasties, hematuria, swelling of legs. SUBJECTIVE: The patient is lying flat in bed without chest pain, shortness of breath, or palpitation, PHYSICAL EXAMINATION: VITAL SIGNS: Blood pressure 134/66, respiration 16, pulse 64, temperature 97.9. HEENT: Head is normocephalic. Eyes: Pupils normal. Conjunctiva is slightly pale. NECK: JVP low. Carotids equal. Thorax, AP diameter normal. LUNGS: No rales. CARDIOVASCULAR: S1 and S2, systolic murmur. ABDOMEN: Soft. No organomegaly. EXTREMITIES: No clubbing and no cyanosis. LABORATORY DATA: WBC 13.0, hemoglobin 9.2, hematocrit 30.0, platelet 350. Sodium 135, potassium 4.1, BUN 39, creatinine 1.4, AST and ALT is normal. Total protein is normal. DIAGNOSIS: Coronary artery disease, coronary artery bypass graft, multiple angioplasties and stent insertion, cardiomyopathy with LV ejection fraction 45% status post AICD insertion, renal insufficiency, atrial fibrillation, coronary artery disease, paroxysmal atrial fibrillation, anemia, hematuria, renal dysfunction. PLAN: The patient getting physical therapy for deconditioning. We will continue physical therapy and we will continue current medications and we will follow. Mely Walters MD
[2017-06-09] MEDS: Levalbuterol 0.63 MG/3 ML Inhal Soln UD IH SCH ×3 (03:38→13:05)
[2017-06-09] MEDS: Levothyroxine 100 MCG TAB PO SCH (06:38)
[2017-06-09] MEDS: Pantoprazole 40 mg EC Tab PO SCH (06:38)
--- NOTE | 2017-06-09 08:19 | CP.PCM.PN ---
Subjective - Date & Time of Evaluation Date of Evaluation: 06/09/17 Time of Evaluation: 08:00 - Subjective Subjective: Patient is seen this morning in room 319. He is feeling better. No blood seen in the urine. Objective - Vital Signs/Intake and Output Vital Signs (last 24 hours): Temp Pulse Resp BP Pulse Ox 97.9 F 64 16 134/66 96 06/08/17 17:18 06/08/17 17:18 06/08/17 17:18 06/08/17 17:18 06/08/17 10:00 Intake and Output: 06/09/17 06/09/17 06:59 18:59 Output Total 1400 Balance -1400 - Medications Medications: Current Medications Amiodarone HCl (Cordarone) 200 mg PO DAILY [facility] PRN Reason: Protocol Last Admin: 06/08/17 10:56 Dose: 200 mg Atorvastatin Calcium (Lipitor) 10 mg PO DIN [facility] PRN Reason: Protocol Last Admin: 06/08/17 18:29 Dose: 10 mg Calcium Carbonate (Oscal) 500 mg PO TID [facility] PRN Reason: Protocol Last Admin: 06/08/17 18:30 Dose: 500 mg Digoxin (Lanoxin) 0.125 mg PO 1400 [facility] PRN Reason: Protocol Last Admin: 06/08/17 13:10 Dose: 0.125 mg Docusate Sodium (Colace) 100 mg PO BID [facility] PRN Reason: Protocol Last Admin: 06/08/17 18:28 Dose: 100 mg Doxercalciferol (Hectorol) 0.5 mcg PO DAILY [facility] PRN Reason: Protocol Last Admin: 06/08/17 10:55 Dose: 0.5 mcg Furosemide (Lasix) 40 mg PO DAILY [facility] Last Admin: 06/08/17 10:55 Dose: 40 mg Levalbuterol HCl (Xopenex) 0.63 mg IH [id number] [facility] PRN Reason: Protocol Last Admin: 06/09/17 03:38 Dose: Not Given Levothyroxine Sodium (Synthroid) 100 mcg PO 0600 [facility] PRN Reason: Protocol Last Admin: 06/09/17 06:38 Dose: 100 mcg Lidocaine (Lidoderm) 1 ea TD DAILY [facility] Last Admin: 06/08/17 10:57 Dose: 1 ea Montelukast Sodium (Singulair) 10 mg PO DAILY [facility] PRN Reason: Protocol Last Admin: 06/08/17 10:54 Dose: 10 mg Morphine Sulfate (Morphine) 4 mg IVP Q4H PRN; Protocol PRN Reason: Pain, severe (8-10) Ondansetron HCl (Zofran Inj) 4 mg IVP Q4H PRN; Protocol PRN Reason: Nausea/Vomiting Last Admin: 06/07/17 09:25 Dose: 4 mg Pantoprazole Sodium (Protonix Ec Tab) 40 mg PO 0600 [facility] PRN Reason: Protocol Last Admin: 06/09/17 06:38 Dose: 40 mg Phenazopyridine HCl (Pyridium) 200 mg PO 0000,0800,1600 [facility] PRN Reason: Protocol Last Admin: 06/09/17 00:02 Dose: 200 mg Polyethylene Glycol (Miralax) 17 gm PO BID [facility] PRN Reason: Protocol Last Admin: 06/08/17 11:01 Dose: Not Given Prednisone (Prednisone Tab) 10 mg PO DAILY [facility] PRN Reason: Protocol Last Admin: 06/08/17 10:56 Dose: 10 mg Sodium Phosphate (Fleet Enema) 135 ml RC Q8H PRN; Protocol PRN Reason: Constipation Tramadol HCl (Ultram) 50 mg PO TID [facility] PRN Reason: Protocol Last Admin: 06/08/17 18:30 Dose: Not Given Vancomycin HCl (Vancocin 25 Mg/Ml (Oral Use)) 125 mg PO QID [facility] PRN Reason: Protocol Last Admin: 06/08/17 23:28 Dose: 125 mg - Labs Labs: 06/08/17 05:30 06/08/17 05:30 - Constitutional Appears: No Acute Distress - Head Exam Head Exam: ATRAUMATIC, NORMOCEPHALIC - Respiratory Exam Respiratory Exam: Clear to Ausculation Bilateral, NORMAL BREATHING PATTERN - Cardiovascular Exam Cardiovascular Exam: +S1, +S2 - GI/Abdominal Exam GI & Abdominal Exam: Soft, Tenderness, Normal Bowel Sounds - Neurological Exam Neurological Exam: Alert, Awake, CN II-XII Intact, Oriented x3 Assessment and Plan - Assessment and Plan (Free Text) Assessment: Deconditioning BL heel tissue injury Chronic heart failure Metastatic prostate cancer with hematuria now resolved after fulguration Hypothyroidism COPD DMII Arthritis Plan: Patient is feeling better. He is able to walk. He will be discharged home today. He will continue his home medications. No blood seen in the urine. continue chronic indwelling schroeder catheter. Patient will followup with Dr Louise in a few weeks to have schroeder catheter changed. He will also followup with Dr. Lawrence for heel care. continue offloading boots.
[2017-06-09] MEDS: Insulin Human NPH/Reg 70/30 Vial(3 ml) SC SCH ×2 (08:40→12:48)
[2017-06-09] MEDS: Lidocaine 5% Patch TD SCH (11:12)
[2017-06-09 11:14] VITALS: RESP 20; TEMP 97.3; O2SAT 97
[2017-06-09] MEDS: Vancomycin 25 MG/ML PO SCH ×2 (11:15→14:37)
--- NOTE | 2017-06-09 14:35 | PN ---
DATE: 06/09/2017 LOCATION: The patient is on 319, bed 1. REASON FOR CONSULTATION: Followup coronary artery disease status post AICD insertion, CABG, multiple angioplasties, hematuria, swelling of legs. SUBJECTIVE: The patient is lying flat in bed without any chest pain, shortness of breath, or palpitation. PHYSICAL EXAMINATION: VITAL SIGNS: Blood pressure 141/60, respiration 20, pulse 71, temperature 97.3. HEENT: Head is normocephalic. Eyes: Pupils normal. Conjunctiva is slightly pale. NECK: JVP low. Carotids equal. Thorax AP diameter normal. LUNGS: No rales. CARDIOVASCULAR: S1 and S2. ABDOMEN: Soft. No tenderness. No organomegaly. Bowel sounds normal. EXTREMITIES: No clubbing and no cyanosis. LABORATORY DATA: WBC 13.0, hemoglobin 9.2, hematocrit 30.0, platelet 350. Sugar 113, sodium 135, potassium 4.1, BUN 39, creatinine 1.4, AST, ALT, total protein and albumin is normal. DIAGNOSIS: Coronary artery disease, coronary artery bypass graft surgery, multiple angioplasties and stent insertion, cardiomyopathy with LV ejection fraction of 45%, status post AICD insertion, renal insufficiency, paroxysmal atrial fibrillation, anemia, hematuria, renal dysfunction. PLAN: Clinically, cardiac status is stable. The patient getting physical therapy. We will continue amiodarone 200 mg daily, insulin as ordered, digoxin 0.125 daily, furosemide 40 daily, Lipitor 10 mg daily, Os-Pedro 500 mg t.i.d., prednisone 10 mg daily, Protonix 40 daily, Singulair 10 mg p.o. daily, Synthroid 100 mcg p.o. daily, vancomycin 125 mcg p.o. q.i.d., Xopenex hand nebulizer therapy. We will continue present therapy . Mely Walters MD
[2017-06-09] MEDS: Digoxin 125 mcg (0.125 mg) Tab PO SCH (14:36)
[2017-06-09 14:43] VITALS: PULSE 76
--- NOTE | 2017-06-09 15:24 | CP.PCM.PN ---
<Barrington Camarena - Last Filed: 06/09/17 15:21> Subjective - Date & Time of Evaluation Date of Evaluation: 06/09/17 Time of Evaluation: 07:50 - Subjective Subjective: Heme/onc note for Dr Carballo: Pt seen and examined at bedside. No acute events overnight.Denies any further episodes of hematuria. Doing well. Denies any f/c, n/v/d, palpitations, urinary or bm changes. Objective - Vital Signs/Intake and Output Vital Signs (last 24 hours): Temp Pulse Resp BP Pulse Ox 97.3 F L 71 20 114/60 97 06/09/17 11:13 06/09/17 11:13 06/09/17 11:13 06/09/17 11:14 06/09/17 11:13 Intake and Output: 06/09/17 06/09/17 06:59 18:59 Output Total 1400 Balance -1400 - Medications Medications: Current Medications Amiodarone HCl (Cordarone) 200 mg PO DAILY [facility] PRN Reason: Protocol Last Admin: 06/09/17 11:13 Dose: 200 mg Atorvastatin Calcium (Lipitor) 10 mg PO DIN [facility] PRN Reason: Protocol Last Admin: 06/08/17 18:29 Dose: 10 mg Calcium Carbonate (Oscal) 500 mg PO TID [facility] PRN Reason: Protocol Last Admin: 06/09/17 14:37 Dose: 500 mg Digoxin (Lanoxin) 0.125 mg PO 1400 [facility] PRN Reason: Protocol Last Admin: 06/09/17 14:36 Dose: 0.125 mg Docusate Sodium (Colace) 100 mg PO BID [facility] PRN Reason: Protocol Last Admin: 06/09/17 11:13 Dose: 100 mg Doxercalciferol (Hectorol) 0.5 mcg PO DAILY [facility] PRN Reason: Protocol Last Admin: 06/09/17 11:14 Dose: 0.5 mcg Furosemide (Lasix) 40 mg PO DAILY [facility] Last Admin: 06/09/17 11:14 Dose: 40 mg Levalbuterol HCl (Xopenex) 0.63 mg IH [id number] [facility] PRN Reason: Protocol Last Admin: 06/09/17 13:05 Dose: 0.63 mg Levothyroxine Sodium (Synthroid) 100 mcg PO 0600 [facility] PRN Reason: Protocol Last Admin: 06/09/17 06:38 Dose: 100 mcg Lidocaine (Lidoderm) 1 ea TD DAILY [facility] Last Admin: 06/09/17 11:12 Dose: 1 ea Montelukast Sodium (Singulair) 10 mg PO DAILY [facility] PRN Reason: Protocol Last Admin: 06/09/17 11:14 Dose: 10 mg Morphine Sulfate (Morphine) 4 mg IVP Q4H PRN; Protocol PRN Reason: Pain, severe (8-10) Ondansetron HCl (Zofran Inj) 4 mg IVP Q4H PRN; Protocol PRN Reason: Nausea/Vomiting Last Admin: 06/07/17 09:25 Dose: 4 mg Pantoprazole Sodium (Protonix Ec Tab) 40 mg PO 0600 [facility] PRN Reason: Protocol Last Admin: 06/09/17 06:38 Dose: 40 mg Phenazopyridine HCl (Pyridium) 200 mg PO 0000,0800,1600 [facility] PRN Reason: Protocol Last Admin: 06/09/17 08:41 Dose: 200 mg Polyethylene Glycol (Miralax) 17 gm PO BID [facility] PRN Reason: Protocol Last Admin: 06/08/17 11:01 Dose: Not Given Prednisone (Prednisone Tab) 10 mg PO DAILY [facility] PRN Reason: Protocol Last Admin: 06/09/17 11:14 Dose: 10 mg Sodium Phosphate (Fleet Enema) 135 ml RC Q8H PRN; Protocol PRN Reason: Constipation Tramadol HCl (Ultram) 50 mg PO TID [facility] PRN Reason: Protocol Last Admin: 06/09/17 14:30 Dose: Not Given Vancomycin HCl (Vancocin 25 Mg/Ml (Oral Use)) 125 mg PO QID [facility] PRN Reason: Protocol Last Admin: 06/09/17 14:37 Dose: 125 mg - Labs Labs: 06/08/17 05:30 06/08/17 05:30 - Constitutional Appears: No Acute Distress - Head Exam Head Exam: ATRAUMATIC - Eye Exam Eye Exam: EOMI, PERRL - ENT Exam ENT Exam: Mucous Membranes Moist - Respiratory Exam Respiratory Exam: Clear to Ausculation Bilateral. absent: Rales, Rhonchi, Wheezes - Cardiovascular Exam Cardiovascular Exam: REGULAR RHYTHM, RRR, +S1, +S2 - GI/Abdominal Exam GI & Abdominal Exam: Soft. absent: Distended, Tenderness - Extremities Exam Extremities Exam: absent: Calf Tenderness Additional comments: Splint placed by podiatry - Neurological Exam Neurological Exam: Alert, Awake, Oriented x3 - Psychiatric Exam Psychiatric exam: Normal Affect, Normal Mood - Skin Skin Exam: Dry, Intact, Warm Assessment and Plan - Assessment and Plan (Free Text) Assessment: 87 M with history of stage 4 castrate resistant prostate cancer, chronic heart failure, COPD, DMII, coronary artery disease, hypothyroidism, and arthritis who was admitted for hematuria and blood clots. Pt is s/p cystoscopy with evacuation of clots, cath replacement, with continuous bladder irrigation. s/p bladder fulguration. In the TCU for deconditioning and cont antibiotics. Plan: - Possible d/c today - Physical therapy - To cont Zytiga once he is d/c atleast 3 times weekly - Plan for Cytoxin as outpt needs preauthorization - Urology recs appreciated - ID consulted - on Ceftazadine target of 10 days, cont Vanco PO 125mg Q6H for C.diff antigen positive - Cont with Pyridium - Prednisone 10mg daily Case and plan was reviewed and discussed in detail with Dr Carballo. <Rogelio Carballo P - Last Filed: 06/09/17 22:46> Objective - Vital Signs/Intake and Output Vital Signs (last 24 hours): Temp Pulse Resp BP Pulse Ox 97.3 F L 72 20 131/66 97 06/09/17 16:56 06/09/17 16:56 06/09/17 16:56 06/09/17 16:56 06/09/17 16:56 - Labs Labs: 06/08/17 05:30 06/08/17 05:30 Attending/Attestation - Attestation I have personally seen and examined this patient.: Yes I have fully participated in the care of the patient.: Yes I have reviewed all pertinent clinical information, including history, physical exam and plan: Yes
--- NOTE | 2017-06-09 15:41 | PN ---
The patient underwent a cysto with evacuation of clots and fulguration of the bladder. His urine is clear. He is doing well and will follow up as an outpatient. Leonides Masterson MD
[2017-06-09 16:57] VITALS: BP 131/66; PULSE 72
--- NOTE | 2017-06-09 17:40 | PN ---
DATE: SUBJECTIVE: The patient is currently seen sitting in chair in his room in the TCU. He is anticipating a discharge later today. He is uncleared by urology for discharge. He has completed his course of IV antibiotics for his Klebsiella urinary tract infection. MEDICATIONS: Medication list reviewed. The patient is currently on Colace, amiodarone, Fleet Enema, Hectorol, Lanoxin, oral Lasix, Lidoderm, Lipitor, Os-Pedro, prednisone, Pyridium, Singulair, Synthroid, Ultram, oral vancomycin, Xopenex and Zofran p.r.n. OBJECTIVE: VITAL SIGNS: Blood pressure 114/60, temperature 97.3, respiratory rate 20 with a pulse of 71. HEENT: Normocephalic and atraumatic. Conjunctivae are pale. Sclerae are nonicteric. NECK: Supple. No neck vein distention. CHEST: Clear to auscultation and percussion. No rales, no rhonchi and no wheezing. CARDIOVASCULAR: Regular rate and rhythm with an AICD. No audible murmurs, rubs or gallops noted. ABDOMEN Soft. Bowel sounds are normal. No rebound, no guarding, no masses. No organomegaly noted. EXTREMITIES: Show no lower extremity edema. No cyanosis or clubbing. The patient does have an indwelling Avendano catheter, which is now draining clear urine. LABORATORY DATA AND IMAGING: No labs done today. Yesterday CBC, white blood cell count 13,0, hemoglobin 9.2 and a platelet count of 350,000. Chemistries from yesterday showed normal electrolytes with a chloride of 93, CO2 of 34, BUN 39 with a creatinine of 1.4. Glucose on last check was 113. Calcium was 8.6. ASSESSMENT: 1. 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 BUN is slightly higher secondary to the use of diuretics with oral steroids. The patient will be discharged home with a Avendano catheter in place. Should he have any further hematuria with clots, he will be in contract with his urologist, Dr. Masterson and Dr. Louise. 2. History of metastatic prostate cancer, currently stable. 3. History of hypertension, blood pressure controlled on present medical therapy. 4. History of arteriosclerotic heart disease, status post percutaneous transluminal coronary angioplasty, coronary artery bypass graft, status post automatic implantable cardioverter-defibrillator. 5. History of chronic obstructive pulmonary disease, currently stable on current medical therapy and inhalation therapy. 6. History of hypothyroidism, currently stable on thyroid replacement therapy. 7. Status post Klebsiella urinary tract infection, resistant to multiple drugs. He remained on IV antibiotics during the acute part of his hospitalization and he completed antibiotics two days ago in the TCU. 8. History of mild anemia, secondary to sepsis, secondary to chronic kidney disease, and possibly secondary to gross hematuria with clots that he passed earlier on during the hospitalization. PLAN: 1. Agree with the patient's plan to be discharged home. He has completed his course of antibiotics and he has completed his rehabilitation course in the TCU. 2. The patient will follow closely in the outpatient setting with his urologist. 3. Attempt to try and decrease the steroid dose. 4. The patient will continue low dose diuretic therapy. We will accept a mild degree of prerenal azotemia. Choco White MD
--- NOTE | 2017-06-09 23:49 | PN ---
DATE: 06/09/2017 SUBJECTIVE: Mr. Amador was seen earlier this morning in room 319. Doing well. No fevers or chills. PHYSICAL EXAMINATION VITAL SIGNS: Temperature is 97, blood pressure is 130/60 and respiratory rate of 16. HEENT: Unremarkable. NECK: Supple. LUNGS: Decreased breath sounds. HEART: Normal S1 and S2. ABDOMEN: Soft and nontender. LABORATORY DATA: Reveals a white count of 13,000, hemoglobin of 9. Chemistries reveals a BUN of 39 and creatinine of 1.4. ASSESSMENT AND PLAN: This is an 87-year-old male, who was seen earlier this morning in room 319 with systemic inflammatory response syndrome. The patient has hematuria status post cystoscopy, fulguration, irrigation of the bladder and sepsis with urinary tract infection and carbapenem resistant Klebsiella. I completed the Avycaz therapy for 14 days and would complete 10-14 days of p.o. vancomycin, today's day #8. Case discussed with the patient earlier this morning. Elliot Hernandez MD
--- NOTE | 2017-06-21 02:56 | DS ---
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 The patient had to be taking to the OR for evacuation of blood clots and then again for cauterization of the bleeding sites. The patient developed sepsis after the procedure. He was started on IV antibiotics. He was then transferred to the transitional care unit for deconditioning gait dysfunction completion of IV antibiotics as well as monitoring of his hematuria and his hemoglobin. HOSPITAL COURSE: While in the transitional care unit. The patient's urine remained clear without gross hematuria. His urine was orange colored however, secondary to Pyridium. The patient participated in physical therapy and did improve. He also finished his course of antibiotics for sepsis. He developed a sacral decubitus as well as decubiti on both heels of the feet. He was seen by Dr. Lawrence, who is his portable machine cutter and placed on a dry dressing. He was also given offloading boots to wear while in bed and special shoes to be worn during the day. The patient was feeling better. He was able to walk, so he was discharged home in improved condition. He will continue with chronic indwelling Schroeder catheter. FOLLOWUP: He will followup with Dr. Louise, his urologist in a few weeks to have schroeder catheter changed. He will also followup with Dr. aLwrence, for heel care and he will followup with us in 10 days. DISCHARGE DIAGNOSES: 1. Recurrent hematuria. 2. Metastatic prostate cancer. 3. Status post fulguration of bladder and evacuation of blood clots. 4. Type 2 diabetes. 5. Hypothyroidism. 6. Cardiac arrhythmia. 7. Coronary artery disease. 8. Chronic obstructive pulmonary disease. 9. Arthritis. 10. Chronic systolic and diastolic heart failure. DISCHARGE MEDICATIONS: Amiodarone 200 mg once a day, digoxin 125 mcg daily, Hectorol 0.5 mcg daily, 70/30 Humulin 20 units before meals and at bedtime, Lasix 40 mg twice a day, Lipitor 10 mg at night, MiraLax 17 g twice a day, Prednisone 10 mg daily, Protonix 40 mg daily, Pyridium 200 mg daily, Singulair 10 mg daily, Synthroid 100 mcg daily, Ultram 50 mg three times a day as needed for pain, and Xopenex 0.63 mg q. 6 hours. Sreedhar Polk MD [facility]
== END 2017-06-09 16:55 | disposition home health service (06) | DRG 91 ==
LOC: TRCU 15:35
PROVIDERS: ADMIT Internal Medicine; ATTEND Internal Medicine
PROC: F07L6ZZ Therapeutic Exercise Treatment of Musculoskeletal System - Lower Back / Lower Extremity (ICD-10-PCS; 2017-06-03)
PROC: F08Z1FZ Dressing Techniques Treatment using Assistive, Adaptive, Supportive or Protective Equipment (ICD-10-PCS; 2017-06-05)
PROC: F07Z9FZ Gait Training/Functional Ambulation Treatment using Assistive, Adaptive, Supportive or Protective Equipment (ICD-10-PCS; principal; 2017-06-06)
DX: R26.9 Unspecified abnormalities of gait and mobility (principal); A41.9 Sepsis, unspecified organism; C77.9 Secondary and unspecified malignant neoplasm of lymph node, unspecified; L89.613 Pressure ulcer of right heel, stage 3; E11.22 Type 2 diabetes mellitus with diabetic chronic kidney disease; C79.51 Secondary malignant neoplasm of bone; A04.7 Enterocolitis due to Clostridium difficile; N02.9 Recurrent and persistent hematuria with unspecified morphologic changes; L89.623 Pressure ulcer of left heel, stage 3; I13.0 Hypertensive heart and chronic kidney disease with heart failure and stage 1 through stage 4 chronic kidney disease, or unspecified chronic kidney disease; I42.9 Cardiomyopathy, unspecified; N39.0 Urinary tract infection, site not specified; C61 Malignant neoplasm of prostate; I50.9 Heart failure, unspecified; B96.1 Klebsiella pneumoniae [K. pneumoniae] as the cause of diseases classified elsewhere; J44.9 Chronic obstructive pulmonary disease, unspecified; D63.1 Anemia in chronic kidney disease; E11.621 Type 2 diabetes mellitus with foot ulcer; L97.519 Non-pressure chronic ulcer of other part of right foot with unspecified severity; E03.9 Hypothyroidism, unspecified; I25.10 Atherosclerotic heart disease of native coronary artery without angina pectoris; N18.3 Chronic kidney disease, stage 3 (moderate); L89.152 Pressure ulcer of sacral region, stage 2; M19.90 Unspecified osteoarthritis, unspecified site; I48.2 Chronic atrial fibrillation; E11.51 Type 2 diabetes mellitus with diabetic peripheral angiopathy without gangrene; I27.2 Other secondary pulmonary hypertension; I08.1 Rheumatic disorders of both mitral and tricuspid valves; I48.0 Paroxysmal atrial fibrillation; I25.2 Old myocardial infarction; Z95.810 Presence of automatic (implantable) cardiac defibrillator; Z98.61 Coronary angioplasty status; Z86.718 Personal history of other venous thrombosis and embolism; Z95.1 Presence of aortocoronary bypass graft; Z79.4 Long term (current) use of insulin

== ENCOUNTER 2017-07-13 05:58 | Day surgery (SDC) | payer MEDICARE ==
[2017-07-10 09:47] VITALS: BMI 22.7
[2017-07-13] MEDS ORDERED: Lidocaine 1% Inj (20ml) ONE (07:17)
[2017-07-13] MEDS ORDERED: Bupivacaine 0.5% Inj(30mL) ONE (07:17)
[2017-07-13] MEDS ORDERED: Etomidate 20 mg/10ml Inj IV ONE (07:46)
[2017-07-13] MEDS ORDERED: Propofol 10 mg/ml Inj (20 ML) ONE (07:50)
[2017-07-13] MEDS ORDERED: Lactated Ringer's 1,000 ML IV SCH (08:00)
[2017-07-13] MEDS ORDERED: Midazolam 2 MG/2 ML VIAL ONE (08:09)
--- NOTE | 2017-07-13 08:55 | PCM.SURG1 ---
Surgeon's Initial Post Op Note - Surgeon's Notes Surgeon: Dr. Sixto Lawrence Marine Steward: Dr. Demetra Harris DPM PGY1 Type of Anesthesia: MAC, Local Anesthesia Administered By: Dr. Martins Pre-Operative Diagnosis: Bilateral chronic nonhealing decubitus ulcer Operative Findings: See operative report. Materials: Apligraf, 4-0 nylon. Injectables: (pre-op) 16 cc 1:1 mixture 1% lidocaine plain & 0.5% marcaine plain , right foot; (pre-op) 20 cc 1:1 mixture 1% lidocaine plain & 0.5% marcaine plain, left foot; (intra-op) 5cc 1% lidocaine plain Post-Operative Diagnosis: Same as above Operation Performed: Wound debridement and application of skin substitute allograft to bilateral heels Specimen/Specimens Removed: 1) Right heel wound. 2) Left heel wound Estimated Blood Loss: EBL {In ML}: 1 Blood Products Given: N/A Drains Used: No Drains Post-Op Condition: Good Date of Surgery/Procedure: 07/13/17 Time of Surgery/Procedure: 07:45
[2017-07-13 09:41] VITALS: RESP 18
[2017-07-13 10:24] VITALS: BP 139/66; PULSE 63; TEMP 98; O2SAT 94
--- NOTE | 2017-07-14 18:09 | OP ---
PROCEDURE DATE: 07/13/2017 PREOPERATIVE DIAGNOSIS: Bilateral chronic nonhealing decubitus ulcerations. POSTOPERATIVE DIAGNOSIS: Bilateral chronic nonhealing decubitus ulcerations. PROCEDURE: Wound debridement and application of skin substitute Apligraf to bilateral heels. SURGEON: Dr. Sixto Lawrence CLUTCH ASSEMBLER: Dr. Demetra Harris, DPM PGY-1 TYPE OF ANESTHESIA: MAC with local, 36 mL of 1:1 mixture of 1% lidocaine plain and 0.5% Marcaine plain. ANESTHESIA ADMINISTERED BY: Dr. Martins INDICATION: The patient is an 87-year-old male with the above diagnoses. The patient has exhausted all conservative treatment at this time, complains of persistent pain to both heels secondary to pressure ulcer formation. He is unable to walk and ulcerations remain non-healing. The patient now requests surgical intervention. The patient signed the consent after careful explanation of risks, benefits, complications and alternatives for surgical procedure and wishes to proceed. No guarantees were given nor implied. PREPARATION: The patient was brought into the operating room and placed on the operating room table in the supine position. Time-out was performed for identification of the correct patient and procedure. After induction of MAC, a local block consisting of 36 mL of 1:1 mixture of 1% lidocaine plain and 0.5% Marcaine plain were administered in an ankle-block fashion to bilateral lower extremities, 16 mL in the right ankle and 20 mL in the left ankle. Both lower extremities were then prepped and draped in normal sterile manner and the procedure began. DESCRIPTION OF PROCEDURE: Attention was directed to the posterior aspect of the left calcaneus where a decubitus ulceration measuring approximately 3 x 3.5 cm was noted; ulcer was noted to have a fibrin base. Using the Versajet II system on setting 8, the ulcer was excisionally debrided of all fibrotic and nonviable tissue until subcutaneous tissue appeared. No purulent drainage was expressed from the ulcer. A wound culture was taken of the debrided ulceration and was sent to pathology. Next, attention was directed to the posterior aspect of the right calcaneus where a decubitus ulceration measuring approximately 1 x 1.5 cm was noted; the ulcer was noted to have a fibrin base. Using the Versajet II system on setting 8, the ulcer was excisionally debrided of all fibrotic and nonviable tissue until healthy bleeding granular tissue appeared. No purulent drainage was expressed from the ulcer. A wound culture was taken of the debrided ulceration and was sent to pathology. Next, Apligraf measuring 44 sq cm was cross-hatched using a #15 blade and then applied to the ulceration on the left posterior heel and then following the right posterior heel. No Apligraf was wasted and as remaining graft was folded and doubled on to itself. Using Dermabond, Apligraf was adhered to the healthy skin. Next, using 4-0 nylon Apligraf noted to the posterior left heel was sutured to the healthy wound edges using a simple interrupted suture technique. Adaptic was applied to the left and right graft and adhered to the healthy skin using Steri-Strips. Saline soaked sterile gauze were applied to bilateral heel ulcerations and then covered with Mepilex AG border dressing. The left and right feet were then dressed with ABD pads and Kerlix. POSTOPERATIVE CONDITION: The patient tolerated the anesthesia and procedure well and was escorted to the Recovery Room with vital signs stable and neurovascular status intact to bilateral lower extremities. The patient is to change the dry sterile dressings consisting of ABDs and Kerlix every two days and the Apligraf will be viewed for incorporation into the decubitus ulcerations in one week. The patient will follow up with Dr. Lawrence in office. Demetra Harris DPM Sixto Lawrence DPM ANNABELLA
== END 2017-07-13 10:45 | disposition home or self-care (01) ==
LOC: SDS 05:58
PROVIDERS: ATTEND Podiatrist
DX: L89.629 Pressure ulcer of left heel, unspecified stage (principal); L89.619 Pressure ulcer of right heel, unspecified stage
CPT/HCPCS: 15004; 15275; 87070; 87075; 87181; C1762; J0690; J2001; J2250; J2704; J7120 ×2

== ENCOUNTER 2017-08-21 07:03 | Day surgery (SDC) | payer MEDICARE ==
[2017-08-16 18:35] VITALS: PULSE 60
[2017-08-21] MEDS ORDERED: Bupivacaine 0.5% Inj(30mL) ONE (07:19)
[2017-08-21 09:12] VITALS: BMI 27.2
[2017-08-21 10:18] VITALS: PULSE 60; RESP 20; TEMP 98.1
[2017-08-21 10:29] VITALS: BP 153/64; O2SAT 97
--- NOTE | 2017-08-21 11:59 | PCM.SURG1 ---
Surgeon's Initial Post Op Note - Surgeon's Notes Surgeon: Dr. Sixto Lawrence Dialysis Biomed Technician: Dr. Karen Issa, PGY-1 Type of Anesthesia: IV Sedation, Local Anesthesia Administered By: Dr. 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 I: 20cc 0.5% Marcaine plain. M: [place] skin substitute, Mepitel silicone layer, Adaptic, 3-0 prolene. Specimens: right foot 3rd digit distal phalanx, head of middle phalanx Post-Operative Diagnosis: same Operation Performed: debridement of heel ulcerations with Versajet and application of skin substitute; debridement of R foot 3rd digit with excision of necrotic bone Specimen/Specimens Removed: right foot 3rd digit distal phalanx and middle phalanx head Estimated Blood Loss: EBL {In ML}: 5 Blood Products Given: N/A Drains Used: No Drains Post-Op Condition: Good Date of Surgery/Procedure: 08/21/17 Time of Surgery/Procedure: 07:35
--- NOTE | 2017-08-24 23:37 | PCM.OP ---
Operative Report - Operative Report Date of Surgery/Procedure: 08/21/17 Time of Surgery/Procedure: 07:30 Surgeon: Dr. Sixto Lawrence Drier Operator Head: Dr. 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 The patient has exhausted all conservative treatment at this time and now requires surgical intervention. The patient signed the consent after careful explanation of risks, benefits, complications and alternatives for surgical procedure. No guarantees were given nor implied. NPO status was confirmed prior to taking patient to the OR. Operative Findings: Name of Procedure: debridement of heel ulcerations with Versajet and application of skin substitute; debridement of R foot 3rd digit ulcer and eschar with excision of necrotic bone Procedure/Operation Description: The patient was brought in to the operating room and placed on the operating room table in a supine position. Timeout was performed for identification of the correct patient and procedure. After induction of IV sedation, the patient received a total of 20 mL of 0.5% Marcaine plain in a ring block fashion to bilateral heel wounds and in a V- block fashion to the right foot 3rd digit. Once local anesthesia was achieved, both lower extremities were then prepped and draped in normal sterile manner and the procedure began. No tourniquet was used during the procedure. Attention was directed to the left heel, where an approximately 3.0cm x 2.2cm x 0.1 cm ulceration was noted. The ulceration was noted to be composed of granular and fibrotic tissue with no visible bone exposure, with hyperkeratotic and eschar noted to christen-wound area. No drainage was noted to the wound bed. A Versajet mechanical debridement tool was then used to remove all fibrotic and non-viable tissue from the wound base and the wound margins. The surgical site was then irrigated using sterile saline solution. At this time, an [place] skin substitute graft was then applied to cover the entirety to wound, and an overlying Mepitel silicone dressing was applied and adhered to the wound with steri strips. The site was then dressed with 4x4 gauze, an ABD pad, and kerlix. The above procedure was then repeated in the same fashion for the right heel. An [place] graft and Mepitel dressing was applied in similar fashion and also dressed with 4x4 gauze, ABD pad, and kerlix dressing. Attention was directed to the left heel, where an approximately 3.0cm x 2.2cm x 0.1 cm ulceration was noted. The ulceration was noted to be composed of granular and fibrotic tissue with no visible bone exposure, with hyperkeratotic and eschar noted to christen- wound area. No drainage was noted to the wound bed. A Versajet mechanical debridement tool was then used to remove all fibrotic and non-viable tissue from the wound base and the wound margins. The surgical site was then irrigated using sterile saline solution. At this time, an [place] skin substitute graft was then applied to cover the entirety to wound, and an overlying Mepitel silicone dressing was applied and adhered to the wound with steri strips. The site was then dressed with Adaptic, 4x4 gauze, an ABD pad, and kerlix. The above procedure was then repeated in the same fashion for the right heel. An [place] graft and Mepitel dressing was applied in similar fashion and also dressed with Adaptic, 4x4 gauze, ABD pad, and kerlix dressing. Attention was then directed to the right foot 3rd digit, where an eschar was noted at the dorsal distal aspect of the digit, with underlying changes were noted consistent with dry gangrene. Sterile forceps and sterile scissors were utilized to debride the eschar from the roof of the ulcer, which then revealed fibrotic and necrotic tissue with exposed bone. At this time, the necrotic bone was debrided using a sterile 15 blade and forceps, extending down to the mid shaft of the middle phalanx. A sterile bone cutter was used to remove the necrotic bone from the head of the 3rd digit middle phalanx. At this time, all non-viable soft tissue was excisionally debrided down to healthy soft tissue and bone. The skin edges were then reapproximated using 3-0 Prolene sutures, which provided suitable skin closure. The surgical site was then dressed with adaptic and a dry sterile dressing. The attending Dr. Lawrence was present throughout the entire surgical procedure. Estimated Blood Loss: 5cc Blood Replaced: none Complications: none Specimen: right foot 3rd digit necrotic bone Discharge & Condition: The patient tolerated the anesthesia and procedure well and was escorted to the recovery room with vital signs stable and neurovascular status intact to bilateral lower extremities. Patient is to be weight bearing as tolerated to both lower extremities using surgical shoes. Podiatry will continue to follow patient while in house and will be seen by Dr. Lawrence at home visits upon discharge. Patient is to wear multipodus boots at all times in bed. Patient is to keep dressings clean, dry and intact until seen at bedside or at home by Dr. Lawrence.
== END 2017-08-21 11:30 ==
LOC: SDS 07:03
PROVIDERS: ATTEND Podiatrist
DX: E11.69 Type 2 diabetes mellitus with other specified complication (principal); M86.171 Other acute osteomyelitis, right ankle and foot; E11.52 Type 2 diabetes mellitus with diabetic peripheral angiopathy with gangrene; E11.621 Type 2 diabetes mellitus with foot ulcer; L89.629 Pressure ulcer of left heel, unspecified stage; L89.619 Pressure ulcer of right heel, unspecified stage; I10 Essential (primary) hypertension; I25.10 Atherosclerotic heart disease of native coronary artery without angina pectoris; J44.9 Chronic obstructive pulmonary disease, unspecified; C61 Malignant neoplasm of prostate; E03.9 Hypothyroidism, unspecified; L03.115 Cellulitis of right lower limb; S86.811A Strain of other muscle(s) and tendon(s) at lower leg level, right leg, initial encounter; I50.9 Heart failure, unspecified
CPT/HCPCS: 11042; 15275; 28825; 87070; 87075; 88305; 88311; J7120; Q4102

== ENCOUNTER 2017-09-19 19:00 | Inpatient (IN) | payer MEDICARE ==
[2017-09-19 18:43] VITALS: PULSE 60
--- NOTE | 2017-09-19 19:27 | ED PDOC ---
Arrival/HPI - General Chief Complaint: Pacemaker Problem Time Seen by Provider: 09/19/17 19:10 Historian: Patient, EMS - History of Present Illness Narrative History of Present Illness (Text): 09/19/17 19:18 A 87 year old male, whose past medical history includes diabetes, hypertension, hypothyroidism, COPD, metastatic prostate cancer with indwelling schroeder catheter , multiple UTIs, s/p pacemaker defibrillator for tachycardic arrhythmia in 2008 and recently replaced in March 2017 and recent admission earlier this month for right lower extremity cellulitis and calcaneal ulcer, brought into the emergency department by EMS for shaking chills and rigors over the past 2 days. Patient notes increased shortness of breath with dry cough, malaise and dizziness. He reports feeling his pacemaker go off twice. EMS found patient in v -tach. They gave 150 amiodarone and zofran, and patient came into paced rhythm. Patient continues to complain of nausea, hot and cold chills and rigors. Patient notes tenderness over chemoport but denies any vomiting, diarrhea, abdominal pain, chest pain or any other complaints. Patient reports Dr. Cedillo recently replaced indwelling schroeder 3 weeks ago. Time/Duration: Other (2 days) Symptom Course: Unchanged Quality: Other Context: Home Past Medical History - Provider Review Nursing Documentation Reviewed: Yes - Infectious Disease Hx of Infectious Diseases: None - Tetanus Immunization Tetanus Immunization: Unknown - Cardiac Hx Cardiac Disorders: Yes Hx Pacemaker: Yes Other/Comment: PACE/DEFIB - Pulmonary Hx Respiratory Disorders: Yes Hx Chronic Obstructive Pulmonary Disease (COPD): Yes - Neurological Hx Neurological Disorder: No Hx Paralysis: No - HEENT Hx HEENT Disorder: Yes ([place]) Hx Cataracts: Yes (WITH b/t SURGERY) Hx Glaucoma: Yes - Renal Hx Renal Failure: Yes - Endocrine/Metabolic Hx Diabetes Mellitus Type 2: Yes Hx Hypothyroidism: Yes - Hematological/Oncological Hx Blood Transfusions: Yes Hx Blood Transfusion Reaction: No - Integumentary Other/Comment: multiple skin discolorations and tatoos both arms, multiple brown skin discolorations ble - Musculoskeletal/Rheumatological Hx Musculoskeletal Disorders: No - Gastrointestinal Hx Gastrointestinal Disorders: No - Genitourinary/Gynecological Hx Genitourinary Disorders: Yes Hx Reproductive Disorders: No - Psychiatric Hx Emotional Abuse: No Hx Physical Abuse: No Hx Substance Use: No - Surgical History Other/Comment: L foot surgery. R chest port - Anesthesia Hx Anesthesia: Yes Hx Anesthesia Reactions: No Hx Malignant Hyperthermia: No - Suicidal Assessment Feels Threatened In Home Enviroment: No Family/Social History - Physician Review Nursing Documentation Reviewed: Yes Family/Social History: No Known Family HX Smoking Status: Never Smoked Hx Alcohol Use: Yes Hx Substance Use: No Hx Substance Use Treatment: No Allergies/Home Meds Allergies/Adverse Reactions: Allergies Iodinated Contrast- Oral and IV Dye Allergy (Verified 09/19/17 18:59) ANAPHYLAXIS levofloxacin [From Levaquin] Allergy (Verified 09/19/17 18:59) ANAPHYLAXIS Home Medications: Home Meds Medication Instructions Recorded Confirmed Amiodarone HCl 200 mg PO DAILY 06/14/12 09/19/17 Furosemide [Lasix] 40 mg PO BID 05/23/17 09/19/17 Calcium Carbonate [Oscal] 500 mg PO DAILY 07/10/17 09/19/17 Insulin Human NPH/Reg [HumuLIN 20 units SC ACL 07/10/17 09/19/17 70/30 (NPH/Reg)] Review of Systems - Physician Review All systems were reviewed & negative as marked: Yes - Review of Systems Constitutional: Night Sweats, Other (malaise) Respiratory: SOB, Cough. absent: Sputum Cardiovascular: absent: Chest Pain Gastrointestinal: Nausea. absent: Abdominal Pain, Diarrhea, Vomiting Musculoskeletal: Other (pain over chemoport) Neurological: Dizziness Physical Exam Vital Signs Temp Pulse Resp BP Pulse Ox 09/19/17 20:46 62 24 121/54 L 99 09/19/17 20:33 102.3 F H Appearance: Positive for: Well-Appearing, Non-Toxic, Comfortable Pain Distress: None Mental Status: Positive for: Alert and Oriented X 3 Finger Stick Blood Glucose: 289 - Systems Exam Head: Present: Atraumatic, Normocephalic Pupils: Present: PERRL Extroacular Muscles: Present: EOMI Conjunctiva: Present: Normal Mouth: Present: Moist Mucous Membranes Neck: Present: Normal Range of Motion Respiratory/Chest: Present: Decreased Breath Sounds (Mildly decreased breath sounds at bases), Other (right sided chemoport, left sided pacemaker). No: Respiratory Distress, Accessory Muscle Use Cardiovascular: Present: Regular Rate and Rhythm, Normal S1, S2. No: Murmurs Abdomen: Present: Normal Bowel Sounds, Other. No: Tenderness, Distention, Peritoneal Signs Genitourinary Male: Present: Other (indwelling schroeder catheter) Back: Present: Normal Inspection Upper Extremity: Present: Normal Inspection. No: Cyanosis, Edema Lower Extremity: Present: Edema (1+ pitting edema bilaterally), NORMAL PULSES, Other (Bandage on left lower extremity over calcaneal ulcer). No: CALF TENDERNESS Neurological: Present: GCS=15, CN II-XII Intact, Speech Normal Skin: Present: Warm, Dry, Normal Color. No: Rashes Psychiatric: Present: Alert, Oriented x 3, Normal Insight, Normal Concentration Medical Decision Making ED Course and Treatment: 09/19/17 19:18 Impression: A 87 year old male with chills and rigors. Patient reports shortness of breath, cough, nausea. Plan: -- Chest xray -- EKG -- Labs -- Blood and Urine culture -- Urinalysis -- Zofran -- Reassess and disposition Progress Notes: EKG shows paced rhythm at 60 BPM. Interpreted by me. 09/19/17 21:24 Called [employer] regarding pacemaker interrogation, Ciaran Damico the rep stated that the rep will be in 1st thing in am around 8:00 am 09/20/17. - Lab Interpretations Lab Results: 09/19/17 19:40 09/19/17 19:40 Lab Results 09/19/17 20:43: Urine Color Yellow, Urine Appearance Cloudy, Urine pH 8.5, Ur Specific [place] 1.020, Urine Protein >=300 H, Urine Glucose (UA) Negative, Urine Ketones Negative, Urine Blood Large H, Urine Nitrate Positive H, Urine Bilirubin Small H, Urine Urobilinogen 1.0 H, Ur Leukocyte Esterase Large H, Urine RBC Tntc, Urine WBC Tntc, Urine Bacteria Many 09/19/17 19:56: pO2 76 H, VBG pH 7.41, VBG pCO2 48.0, VBG HCO3 30.4 H, VBG Total CO2 31.9 H, VBG O2 Sat (Calc) 96.4 H, VBG Base Excess 4.8 H, VBG Potassium 5.0, Glucose 295 H, Lactate 3.1 H, FiO2 21.0, Sodium 135.0, Chloride 100.0, Venous Blood Potassium 5.0 09/19/17 19:40: Digoxin 2.2 H* 09/19/17 19:40: Sodium 134, Potassium 4.9, Chloride 97 L, Carbon Dioxide 29, Anion Gap 13, BUN 47 H, Creatinine 1.5, Est GFR ( Amer) 54, Est GFR (Non- Af Amer) 44, Random Glucose 276 H, Calcium 8.3 L, Magnesium 2.0, Total Bilirubin 0.5, AST 93 H D, ALT 77 H, Alkaline Phosphatase 202 H D, Lactate Dehydrogenase 803 H, Total Creatine Kinase 70, Troponin I 0.07 D, NT-Pro-B Natriuret Pep 2040 H, Total Protein 5.6 L, Albumin 3.2, Globulin 2.5, Albumin/ Globulin Ratio 1.3 09/19/17 19:40: PT 13.9 H, INR 1.27 H, APTT 23.6 L 09/19/17 19:40: WBC 16.2 H D, RBC 3.19 L, Hgb 8.7 L, Hct 27.7 L, MCV 86.8, MCH 27.3, MCHC 31.4, RDW 16.0 H, Plt Count 201, MPV 9.4, Gran % 87.9 H, Lymph % ( Auto) 1.7 L, [place] % (Auto) 9.9 H, Eos % (Auto) 0.4 L, Baso % (Auto) 0.1, Gran # 14.20 H, Lymph # 0.3 L, [place] # 1.6 H, Eos # 0.1, Baso # 0.02, Neutrophils % ( Manual) 86 H, Lymphocytes % (Manual) 4 L, Monocytes % (Manual) 10 H, Platelet Evaluation Normal, Polychromasia Slight, Hypochromasia 1+, Anisocytosis (manual ) 1+ I have reviewed the lab results: Yes - RAD Interpretation Radiology Orders: 09/19/17 18:46 CHEST PORTABLE [RAD] Stat - Medication Orders Current Medication Orders: Sodium Chloride (Sodium Chloride 0.9%) 1,000 mls @ 999 mls/hr IV .Q1H1M STA Stop: 09/19/17 21:52 Last Admin: 09/19/17 21:03 Dose: 999 mls/hr eMAR Start Stop Document 09/19/17 21:03 SS (Rec: 09/19/17 21:03 SS [id number]) Intravenous Solution Start Date 09/19/17 Start Time 21:03 Discontinued Medications Acetaminophen (Tylenol 325mg Tab) 975 mg PO STAT STA Stop: 09/19/17 19:54 Last Admin: 09/19/17 20:33 Dose: 975 mg MAR Pain/Vitals Document 09/19/17 20:33 SS (Rec: 09/19/17 20:33 SS [id number]) Vitals Temperature (97.6 F-99.6 F) 102.3 F Temperature Source Rectal Ceftriaxone Sodium (Rocephin 1 Gram Ivpb (D5w)) 1 gm in 100 mls @ 200 mls/hr IVPB STAT JEANA PRN Reason: Protocol Ceftriaxone Sodium (Rocephin 1 Gram Ivpb (D5w)) 1 gm in 100 mls @ 200 mls/hr IVPB STAT STA PRN Reason: Protocol Stop: 09/19/17 21:22 Last Admin: 09/19/17 21:03 Dose: 200 mls/hr eMAR Start Stop Document 09/19/17 21:03 SS (Rec: 09/19/17 21:03 SS [id number]) Intravenous Solution Start Date 09/19/17 Start Time 21:03 End Date 09/19/17 End time 21:33 Total Infusion Time 30 Ondansetron HCl (Zofran Inj) 4 mg IVP STAT STA Stop: 09/19/17 19:19 Last Admin: 09/19/17 20:33 Dose: 4 mg IVP Administration Document 09/19/17 20:33 SS (Rec: 09/19/17 20:33 SS [id number]) Charges for Administration # of IVP Administrations 1 - Scribe Statement The provider has reviewed the documentation as recorded by the Robin Joyce Provider Scribe Attestation: All medical record entries made by the Finesseibpratibha were at my direction and personally dictated by me. I have reviewed the chart and agree that the record accurately reflects my personal performance of the history, physical exam, medical decision making, and the department course for this patient. I have also personally directed, reviewed, and agree with the discharge instructions and disposition. Disposition/Present on Arrival - Present on Arrival Any Indicators Present on Arrival: Yes History of DVT/PE: Yes History of Uncontrolled Diabetes: Yes Urinary Catheter: Yes History of Decub. Ulcer: No History Surgical Site Infection Following: None - Disposition Have Diagnosis and Disposition been Completed?: Yes Diagnosis: Sepsis, Urinary tract infection, Ventricular tachycardia Disposition: HOSPITALIZED Disposition Time: 21:33 Patient Plan: Admission Condition: CRITICAL Discharge Instructions (ExitCare): Sepsis (ED) Forms: [employer] ([place])
[2017-09-19 19:55] LABS: BASO # 0.02 K/mm3 (0.0-2.0); BASO % 0.1 % (0.0-3.0); EOS # 0.1 (0.0-0.7); EOS % 0.4 % (1.5-5.0); GRAN % 87.9 % (50.0-68.0); HEMATOCRIT 27.7 % (42.0-52.0); LYMPH # 0.3 (1.2-3.4); LYMPH % 1.7 % (22.0-35.0); MEAN CELL VOLUME 86.8 fl (80.0-105.0); MEAN CORPUSCULAR HEMOGLOBIN 27.3 pg (25.0-35.0); MEAN CORPUSCULAR HGB CONC 31.4 g/dl (31.0-37.0); MEAN PLATELET VOLUME 9.4 fl (7.0-11.0); MONO # 1.6 (0.1-0.6); MONO % 9.9 % (1.0-6.0); PLATELET COUNT 201 10^3/uL (120.0-450.0); WHITE BLOOD COUNT 16.2 10^3/ul (4.5-11.0)
[2017-09-19 20:01] LABS: VENOUS BLOOD GAS BASE EXCESS 4.8 mmol/L (0.0-2.0); VENOUS BLOOD PH 7.41 (7.32-7.43)
[2017-09-19 20:09] LABS: INR 1.27 (0.93-1.08); PARTIAL THROMBOPLASTIN TIME 23.6 Seconds (25.1-36.5)
[2017-09-19 20:23] LABS: TROPONIN I 0.07 ng/mL
[2017-09-19 20:27] LABS: ALB/GLOB RATIO 1.3 (1.1-1.8); BILIRUBIN,TOTAL 0.5 mg/dL (0.2-1.3); CALCIUM 8.3 mg/dL (8.4-10.5); POTASSIUM 4.9 mmol/L (3.6-5.0); TOTAL PROTEIN 5.6 g/dL (5.8-8.3)
[2017-09-19 20:30] LABS: ANISOCYTOSIS 1+; HYPOCHROMIA 1+; NEUTROPHIL 86 % (50.0-70.0); PLATELET ESTIMATE NORMAL (NORMAL); POLYCHROMASIA SLIGHT
[2017-09-19] MEDS ORDERED: cefTRIAXone 1 gm 1 GM/100 ML BAG IVPB SCH (20:45)
[2017-09-19] MEDS ORDERED: Sodium Chloride 0.9% 1,000 ML IV STA (20:52)
[2017-09-19] MEDS ORDERED: cefTRIAXone 1 gm 1 GM/100 ML BAG IVPB STA (20:53)
[2017-09-19 20:54] LABS: PH,URINE 8.5 (4.7-8.0); URINE BILIRUBIN SMALL (NEGATIVE); URINE BLOOD LARGE (NEGATIVE); URINE GLUCOSE (UA) NEGATIVE (NEGATIVE); URINE KETONE NEGATIVE (NEGATIVE); URINE LEUKOCYTE ESTERASE LARGE Leu/uL (NEGATIVE); URINE PROTEIN >=300 mg/dL (<30 mg/dL)
[2017-09-19 20:56] LABS: URINE APPEARANCE CLOUDY (CLEAR); URINE COLOR YELLOW (YELLOW)
[2017-09-19 21:08] LABS: URINE RBC TNTC /hpf (0-2); URINE WBC TNTC /hpf (0-6)
[2017-09-19 21:09] LABS: URINE BACTERIA MANY (NEG)
[2017-09-19] MEDS ORDERED: Sodium Chloride 0.9% 500 ML IV SCH (21:45)
[2017-09-19 23:37] LABS: VENOUS BLOOD GAS BASE EXCESS 6.4 mmol/L (0.0-2.0); VENOUS BLOOD PH 7.45 (7.32-7.43)
[2017-09-19] MEDS ORDERED: Sodium Chloride 0.9% 1,000 ML IV SCH (23:45)
[2017-09-19] MEDS ORDERED: Vancomycin 1gm in NS 250ml 1 GM/250 ML BAG IVPB STA (23:57)
--- NOTE | 2017-09-20 00:05 | CP.PCM.CON ---
<Donato Bailey - Last Filed: 09/20/17 01:59> History of Present Illness - History of Present Illness History of Present Illness: Donato Bailey D.O. PGY-2, Critical Care Consultation Note 87 year old male with a PMH of prostate CA with metastases, chronic indwelling schroeder catheter changed monthly by Dr. Louise urology, IDDM, HTN, tachyarrthymia s/ p pacemaker insertion who presents to [facility] via EMS after his pacemaker fired twice earlier today. Patient states that he has been feeling sick for about 2-3 days and has been shivering a lot. Patient states that he noted nightly chills and shivering/rigors as well as some shortness of breath at times with a dry cough. Patient states that today he felt his pacemaker go off for the first time today and then, while on the ride here with EMS had his pacemaker go off again but even stronger. Records indicate that patient was found to be in vtach while en route and was given amiodarone 150mg with return of normal rhythm. At this time patient still states that he has some chills but no other symptoms. Patient chronically has hematuria and states at times gets dysuria as well PMH: as above PSH: CABG, pacemaker, portacath R chest SH: denies smoking, alcohol, or illicits use FH: denies Meds: reviewed Allergies: IV or oral dye, levofloxacin = swelling Review of Systems - Constitutional Constitutional: Chills, Lethargy - EENT Eyes: absent: Blurred Vision, Change in Vision Ears: absent: Ear Discharge, Ear Pain Nose/Mouth/Throat: absent: Nasal Congestion, Nasal Discharge - Cardiovascular Cardiovascular: absent: Chest Pain, Edema - Respiratory Respiratory: absent: Cough, Dyspnea - Gastrointestinal Gastrointestinal: absent: Abdominal Pain, Nausea, Vomiting - Genitourinary Genitourinary: Dysuria, Hematuria - Musculoskeletal Musculoskeletal: absent: Muscle Weakness, Myalgias - Integumentary Integumentary: absent: Pruritus, Rash - Neurological Neurological: absent: Syncope, Tingling Past Patient History - Infectious Disease Hx of Infectious Diseases: None - Tetanus Immunizations Tetanus Immunization: Unknown - Past Medical History & Family History Past Medical History?: Yes - Past Social History Smoking Status: Never Smoked - CARDIAC Hx Cardiac Disorders: Yes Hx Pacemaker: Yes Other/Comment: PACE/DEFIB - PULMONARY Hx Respiratory Disorders: Yes Hx Chronic Obstructive Pulmonary Disease (COPD): Yes - NEUROLOGICAL Hx Neurological Disorder: No Hx Paralysis: No - HEENT Hx HEENT Problems: Yes (cabazon) Hx Cataracts: Yes (WITH b/t SURGERY) Hx Glaucoma: Yes - RENAL Hx Renal Failure: Yes - ENDOCRINE/METABOLIC Hx Diabetes Mellitus Type 2: Yes Hx Hypothyroidism: Yes - HEMATOLOGICAL/ONCOLOGICAL Hx Blood Transfusions: Yes Hx Blood Transfusion Reaction: No - INTEGUMENTARY Other/Comment: multiple skin discolorations and tatoos both arms, multiple brown skin discolorations ble - MUSCULOSKELETAL/RHEUMATOLOGICAL Hx Musculoskeletal Disorders: No - GASTROINTESTINAL Hx Gastrointestinal Disorders: No - GENITOURINARY/GYNECOLOGICAL Hx Genitourinary Disorders: Yes Hx Reproductive Disorders: No - PSYCHIATRIC Hx Emotional Abuse: No Hx Physical Abuse: No Hx Substance Use: No - SURGICAL HISTORY Other/Comment: L foot surgery. R chest port - ANESTHESIA Hx Anesthesia: Yes Hx Anesthesia Reactions: No Hx Malignant Hyperthermia: No Meds Allergies/Adverse Reactions: Allergies Allergy/AdvReac Type Severity Reaction Status Date / Time Iodinated Contrast- Oral and Allergy ANAPHYLAXIS Verified 09/19/17 18:59 IV Dye levofloxacin [From Levaquin] Allergy ANAPHYLAXIS Verified 09/19/17 18:59 - Medications Medications: Current Medications Amiodarone HCl (Cordarone) 200 mg PO BID [facility] Calcium Carbonate (Oscal) 500 mg PO DAILY [facility] Doxercalciferol (Hectorol) 0.5 mcg PO DAILY [facility] Furosemide (Lasix) 40 mg PO BID [facility] Ceftriaxone Sodium (Rocephin 2 Gm Ivpb) 2 gm in 100 mls @ 100 mls/hr IVPB DAILY [facility] PRN Reason: Protocol Sodium Chloride (Sodium Chloride 0.9%) 1,000 mls @ 100 mls/hr IV .Q10H [facility] Vancomycin HCl (Vancomycin 1gm) 1 gm in 250 mls @ 167 mls/hr IVPB STAT STA PRN Reason: Protocol Stop: 09/20/17 01:26 Insulin Human Regular (Humulin R Med) 0 units SC ACHS [facility] PRN Reason: Protocol Levothyroxine Sodium (Synthroid) 100 mcg PO 0600 [facility] Montelukast Sodium (Singulair) 10 mg PO DAILY [facility] Pantoprazole Sodium (Protonix Ec Tab) 40 mg PO 0600 [facility] Physical Exam - Constitutional Appears: No Acute Distress, Chronically Ill - Head Exam Head Exam: ATRAUMATIC, NORMOCEPHALIC - Eye Exam Eye Exam: EOMI, PERRL. absent: Scleral icterus - ENT Exam ENT Exam: Mucous Membranes Dry, Normal Oropharynx - Neck Exam Neck exam: Positive for: Normal Inspection. Negative for: Tenderness - Respiratory Exam Respiratory Exam: Clear to Auscultation Bilateral. absent: Rhonchi - Cardiovascular Exam Cardiovascular Exam: RRR, +S1, +S2. absent: Diastolic murmur, Gallop, Systolic Murmur - GI/Abdominal Exam GI & Abdominal Exam: Normal Bowel Sounds, Soft, Tenderness (mild diffuse). absent: Distended - Extremities Exam Extremities exam: Positive for: normal inspection. Negative for: pedal edema - Neurological Exam Neurological exam: Alert, Oriented x3 - Psychiatric Exam Psychiatric exam: Normal Affect, Normal Mood - Skin Skin Exam: Dry, Warm Results - Vital Signs Recent Vital Signs: Last Vital Signs Temp 99.8 F H 09/19/17 23:17 Pulse 70 09/19/17 23:17 Resp 24 09/19/17 20:46 BP 126/66 09/19/17 23:17 Pulse Ox 99 09/19/17 20:46 - Labs Result Diagrams: 09/19/17 19:40 09/19/17 19:40 Labs: Laboratory Results - last 24 hr 09/19/17 23:20 pO2 191 H VBG pH 7.45 H VBG pCO2 45.0 VBG HCO3 31.3 H VBG Total CO2 32.7 H VBG O2 Sat (Calc) 98.9 H VBG Base Excess 6.4 H VBG Potassium 4.9 Sodium 133.0 Chloride 101.0 Glucose 218 H Lactate 2.0 FiO2 21.0 Venous Blood Potassium 4.9 Assessment & Plan - Assessment and Plan (Free Text) Assessment: 87 year old male with a PMH of prostate CA with metastases, chronic indwelling schroeder catheter changed monthly by Dr. Louise urology, IDDM, HTN, COPD, tachyarrthymia s/p pacemaker insertion who presents to [facility] via EMS after his pacemaker fired twice earlier today Plan: Neurological AAOx4, nonfocal Continue to monitor Cardiovascular Pacemaker firing x2, unknown whether cardiac etiology or possibly 2/2 shivering [employer] contacted by ER attending and will be coming and interrogating pacemaker tomorrow at 8am Cardio Dr. Walters consulted Continue amiodarone at 200mg po BID Stopped digoxin given elevated level on arrival Will follow trops Continue home lasix Pulmonary Protecting airway, satting well on RA Continue home singulair No acute issues Gastrointestinal Continue home PPI Nephro/Electrolytes Noted mild increase in Cr from baseline Will start IVF hydration Hematologic Marked leukocytosis Hgb maintains around previous baseline Mild continual hematuria noted, otherwise no sources of bleeding Follow with CBCs ID Noted febrile with leukocytosis patient likely septic Started on ceftriaxone D1 Strict IxOs Endo Diabetic, started med RISS with ACHS sugars Thyroid profile ordered Pending results will continue home dose levothyroxine GI/DVT ppx: protonix/ SCDS Patient was seen and examined and case was discussed at length with attending physician jaquan - Date & Time Date: 09/20/17 Time: 00:15 <Erlin Panda - Last Filed: 09/20/17 07:07> Meds - Medications Medications: Current Medications Amiodarone HCl (Cordarone) 200 mg PO BID [facility] Calcium Carbonate (Oscal) 500 mg PO DAILY [facility] Doxercalciferol (Hectorol) 0.5 mcg PO DAILY [facility] Furosemide (Lasix) 40 mg PO BID [facility] Ceftriaxone Sodium (Rocephin 2 Gm Ivpb) 2 gm in 100 mls @ 100 mls/hr IVPB DAILY [facility] PRN Reason: Protocol Sodium Chloride (Sodium Chloride 0.9%) 1,000 mls @ 100 mls/hr IV .Q10H [facility] Last Admin: 09/20/17 00:45 Dose: 100 mls/hr Insulin Human Regular (Humulin R Med) 0 units SC ACHS JEANA PRN Reason: Protocol Levothyroxine Sodium (Synthroid) 100 mcg PO 0600 [facility] Last Admin: 09/20/17 06:47 Dose: 100 mcg Montelukast Sodium (Singulair) 10 mg PO HS [facility] Pantoprazole Sodium (Protonix Ec Tab) 40 mg PO 0600 [facility] Last Admin: 09/20/17 06:47 Dose: 40 mg Results - Vital Signs Recent Vital Signs: Last Vital Signs Temp 98.3 F 09/20/17 06:00 Pulse 60 09/20/17 06:50 Resp 35 H 09/20/17 06:50 BP 116/53 L 09/20/17 05:56 Pulse Ox 98 09/20/17 06:50 - Labs Result Diagrams: 09/19/17 19:40 09/19/17 19:40 Labs: Laboratory Results - last 24 hr 09/19/17 09/20/17 23:20 02:25 pO2 191 H VBG pH 7.45 H VBG pCO2 45.0 VBG HCO3 31.3 H VBG Total CO2 32.7 H VBG O2 Sat (Calc) 98.9 H VBG Base Excess 6.4 H VBG Potassium 4.9 Sodium 133.0 Chloride 101.0 Glucose 218 H Lactate 2.0 FiO2 21.0 Troponin I 0.12 D Venous Blood Potassium 4.9 Attending/Attestation - Attestation I have personally seen and examined this patient.: Yes I have fully participated in the care of the patient.: Yes I have reviewed all pertinent clinical information: Yes Notes (Text): 09/20/17 07:05 I agree with the above mentioned note and exam by the resident 87 y/o male with a PMHx Metastatic Prostate Ca, CHF s/p AICD, HTN presented to the ED via EMS after his AICD discharged 2 times earlier in the day. Patient had been having chills and rigors secondary to urosepsis which led to his AICD firing. He is being treated with IV Abx and will have his AICD evaluated by [employer] later today.
[2017-09-20 02:01] VITALS: BMI 24.7
[2017-09-20] MEDS ORDERED: Influenza Vaccine 60 mcg/0.5 mL SYR (4YR UP) IM ONE (02:01)
[2017-09-20] MEDS ORDERED: Pneumococcal 23-Valent Vaccine IM ONE (02:01)
[2017-09-20] MEDS: Pantoprazole 40 mg EC Tab PO SCH (06:47)
[2017-09-20] MEDS: Levothyroxine 100 MCG TAB PO SCH (06:47)
[2017-09-20 07:26] LABS: ALB/GLOB RATIO 1.1 (1.1-1.8); BILIRUBIN,TOTAL 0.4 mg/dL (0.2-1.3); CALCIUM 7.9 mg/dL (8.4-10.5); POTASSIUM 4.8 mmol/L (3.6-5.0); TOTAL PROTEIN 5.1 g/dL (5.8-8.3)
[2017-09-20 07:28] LABS: THYROID STIMULATING HORMONE 5.4 mIU/mL (0.46-4.68)
[2017-09-20] MEDS: Insulin Reg-MEDIUM-Coverage SC SCH ×4 (07:30→22:05)
[2017-09-20 07:36] LABS: BASO # 0.03 K/mm3 (0.0-2.0); BASO % 0.2 % (0.0-3.0); EOS # 0.1 (0.0-0.7); EOS % 0.6 % (1.5-5.0); GRAN # 11.86 (1.4-6.5); GRAN % 85.5 % (50.0-68.0); LYMPH # 0.5 (1.2-3.4); LYMPH % 3.3 % (22.0-35.0); MEAN CELL VOLUME 87.2 fl (80.0-105.0); MEAN CORPUSCULAR HEMOGLOBIN 26.8 pg (25.0-35.0); MEAN CORPUSCULAR HGB CONC 30.8 g/dl (31.0-37.0); MEAN PLATELET VOLUME 9.9 fl (7.0-11.0); MONO # 1.5 (0.1-0.6); MONO % 10.4 % (1.0-6.0); RED CELL DISTRIBUTION WIDTH 16.3 % (11.5-14.5); WHITE BLOOD COUNT 13.9 10^3/ul (4.5-11.0)
--- NOTE | 2017-09-20 09:12 | CP.PCM.PN ---
Subjective - Date & Time of Evaluation Date of Evaluation: 09/20/17 Time of Evaluation: 07:45 - Subjective Subjective: Pt seen and examined, reports to be doing well. Denies any AICD firing since being in the hospital. Denies CP, SOB, palpitations, MCKINNEY, dizziness. Objective - Vital Signs/Intake and Output Vital Signs (last 24 hours): Temp Pulse Resp BP Pulse Ox 100 F H 60 49 H 113/62 97 09/20/17 08:00 09/20/17 08:20 09/20/17 08:20 09/20/17 08:01 09/20/17 08:20 Intake and Output: 09/20/17 09/20/17 06:59 18:59 Intake Total 1015 Output Total 250 Balance 765 - Medications Medications: Current Medications Amiodarone HCl (Cordarone) 200 mg PO BID [facility] Calcium Carbonate (Oscal) 500 mg PO DAILY [facility] Doxercalciferol (Hectorol) 0.5 mcg PO DAILY [facility] Ceftriaxone Sodium (Rocephin 2 Gm Ivpb) 2 gm in 100 mls @ 100 mls/hr IVPB DAILY [facility] PRN Reason: Protocol Sodium Chloride (Sodium Chloride 0.9%) 1,000 mls @ 100 mls/hr IV .Q10H [facility] Last Admin: 09/20/17 00:45 Dose: 100 mls/hr Insulin Human Regular (Humulin R Med) 0 units SC ACHS [facility] PRN Reason: Protocol Last Admin: 09/20/17 07:30 Dose: Not Given Levothyroxine Sodium (Synthroid) 100 mcg PO 0600 [facility] Last Admin: 09/20/17 06:47 Dose: 100 mcg Montelukast Sodium (Singulair) 10 mg PO HS [facility] Pantoprazole Sodium (Protonix Ec Tab) 40 mg PO 0600 [facility] Last Admin: 09/20/17 06:47 Dose: 40 mg - Labs Labs: 09/20/17 06:00 09/20/17 06:30 PT 13.9 SECONDS (9.4-12.5) H 09/19/17 19:40 INR 1.27 (0.93-1.08) H 09/19/17 19:40 APTT 23.6 Seconds (25.1-36.5) L 09/19/17 19:40 - Constitutional Appears: Well, Non-toxic, No Acute Distress - Head Exam Head Exam: NORMAL INSPECTION - Eye Exam Eye Exam: EOMI - ENT Exam ENT Exam: Mucous Membranes Moist - Respiratory Exam Respiratory Exam: Clear to Ausculation Bilateral, NORMAL BREATHING PATTERN - Cardiovascular Exam Cardiovascular Exam: REGULAR RHYTHM, +S1, +S2 - GI/Abdominal Exam GI & Abdominal Exam: Soft, Normal Bowel Sounds - Extremities Exam Extremities Exam: Full ROM - Neurological Exam Neurological Exam: Alert, Awake, Oriented x3 Assessment and Plan - Assessment and Plan (Free Text) Assessment: 87yo male a/w Urosepsis, AICD firing AICD Firing UTI/Urosepsis Hx of Prostate Ca Dehydration/ARF Chronic Indwelling Avendano IDDM - currently afebrile, HD stable, comfortable, AAOx3, sat 99% - Labs reviewed - Hx of MDR Klebsiella, awaiting ID input regarding abx - AICD firing, awaitin [employer] interrogation Recommend: - supp o2 as needed - Antibiotics as per ID, hx of MDR Kleb UTI - Hold BP meds for now - Hold Lasix, clinically dry, Cr elevated - IVF hydration - follow up cultures, UCx, Bcx - check Procalcitonin - cont with Amiodarone - follow up Cardiology/EP - FS control - check Ulytes - GI ppx - DVT ppx - Monitor in MICU
[2017-09-20] MEDS ORDERED: Amikacin 500 MG in Dextrose 5% In Water 100 ML IV ONE (09:31)
--- NOTE | 2017-09-20 09:36 | RAD ---
HISTORY: CP/PACEMAKER FIRING COMPARISON: 08/13/2017 FINDINGS: LUNGS: No active pulmonary disease. PLEURA: No significant pleural effusion identified, no pneumothorax apparent. CARDIOVASCULAR: Normal. OSSEOUS STRUCTURES: Sternal wires VISUALIZED UPPER ABDOMEN: Normal. OTHER FINDINGS: Dual lead pacemaker. Right-sided Port-A-Cath IMPRESSION: No active disease.
[2017-09-20] MEDS: Meropenem 1 GM in Dextrose 5% In Water 100 ML IVPB SCH ×2 (09:42→22:05)
[2017-09-20] MEDS ORDERED: cefTRIAXone 2 GM IN NS 2 GM/100 ML BAG IVPB SCH (10:00)
[2017-09-20 11:19] LABS: FREE T4 1.67 ng/dL (0.78-2.19)
--- NOTE | 2017-09-20 12:46 | CON ---
DATE: 09/20/2017 LOCATION: The patient seen earlier this morning in room number 129, bed 1. CHIEF COMPLAINT: Temperature of 102 x1 day. HISTORY OF PRESENT ILLNESS: This is an 87-year-old male who was admitted to the emergency room with a history of renal disease, history of prostate cancer, diabetes, hypertension, history of carbapenem resistant Klebsiella urinary tract infection, chronic Avendano catheter, the patient was treated with Avycaz in the past, with a chronic foot ulcer who was admitted to the Emergency Room with hypothyroidism and indwelling Avendano catheter, pacemaker defibrillator was placed in 2008, recently replaced in March 2017, recent admission lower extremity cellulitis brought in by the EMS to the Emergency Room with shaking chills and fevers. This morning the patient states he is feeling better and no chest pain with mild shortness of breath. No abdominal pain, diarrhea or constipation. PAST MEDICAL HISTORY: Significant for hypertension, diabetes, prostate cancer, DVT, renal disease, history of resistant Klebsiella urinary tract infection, and history of foot ulcer. PAST SURGICAL HISTORY: Significant for pacemaker, Port-A-Cath, and coronary artery bypass graft. ALLERGIES: THE PATIENT IS ALLERGIC TO ORAL AND IV DYE AND LEVAQUIN. MEDICATIONS: At home are reviewed and include Protonix, Singulair, Synthroid, insulin, Lasix, digoxin and amiodarone. PHYSICAL EXAMINATION: GENERAL: The patient is in bed. VITAL SIGNS: With temperature of 102.3 T-max yesterday, it is down to 100 this morning and a blood pressure of 113/60, respiratory rate of 21 and heart rate of 61. HEENT: Examination of HEENT is unremarkable. NECK: Supple. LUNGS: Decreased breath sounds. HEART: Normal S1 and S2. ABDOMEN: Soft and nontender. No rebound and no guarding. No masses. EXTREMITIES: On examination of the heel, there is an ulcer present. LABORATORY DATA: Examination reveals a white count of 16,000, hemoglobin of 8, and platelets of 201. Chemistries reveals the patient has a BUN of 43 and creatinine of 1.6, it was 1.2 on the last admission. LFT elevations are noted with the alkaline phosphatase of 167. Urinalysis is noted, there are too numerous to count wbc's and rbc's and large blood. Microbiology is pending. Review of the blood cultures from the past reviewed resistant organism present in the urine. DIAGNOSTIC DATA: The patient had a chest x-ray and no results are available. EKG; no results are available. Consultation by Dr. Erlin Panda is reviewed. Progress note by Dr. Jarvis Lopez is also reviewed. ASSESSMENT AND PLAN: This is an 87-year-old male with chronic foot ulcer, renal disease, deep vein thrombosis, prostate cancer, diabetes mellitus, hypertension, pacemaker and a history of Port-A-cath, and positive urinalysis with fever. Severe sepsis secondary urine as the source with acute kidney injury. Creatinine has changed from 1.2 to 1.5 with history carbapenem resistant Klebsiella urinary tract infection. The patient was given a dose of vancomycin, we will discontinue ceftriaxone and use meropenem and one dose of amikacin. Pending blood culture, urine culture and initial workup result. We will follow closely with you. Elliot Hernandez MD
[2017-09-20] MEDS: Albuterol-Ipratrop 3 mg / 0.5 (3 ml) UD IH SCH ×3 (13:03→22:28)
--- NOTE | 2017-09-20 13:31 | HP ---
The patient is in [facility] Intensive Care Unit, room 129, bed 1. HISTORY OF PRESENT ILLNESS: The patient was admitted last night through the emergency room. The patient presented in the emergency room with ventricular tachycardia, defibrillator activity and sepsis associated with urinary tract infection. The patient has past history of congestive heart failure. The patient has history of diabetes mellitus, hypothyroidism. 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 Apparently, the patient has had multiple episodes of urinary tract infection. The patient also has history of congestive cardiomyopathy. The patient has history of gastritis, peptic ulcer disease. The patient has history of numerous episodes of sepsis. The patient was seen in the emergency room. After treatment in the ER, the patient was admitted to the hospital. His Avendano catheter was changed. The Avendano is draining some blood-stained urine at this time. The patient is evaluated this morning. PHYSICAL EXAMINATION: GENERAL: The patient is conscious. VITAL SIGNS: His pulse is 50, blood pressure 120/70, the patient's respirations are 18 per minute, the patient's temperature is 98.4. HEENT: Examination of the head is normocephalic. NECK: The thyroid is not enlarged clinically. The JVP is flat. LUNGS: Trachea is central. Breath sounds are vesicular. Breath sounds are equal bilaterally. HEART: Normal sinus rhythm. He has a pacemaker and a defibrillator. The defibrillator will be evaluated by the service. ABDOMEN: Soft. Liver, spleen not palpable. There is some lower abdominal tenderness. CENTRAL NERVOUS SYSTEM: The patient is conscious, alert and oriented. The patient is generally weak and feels tired. The patient is also uncomfortable because of pain in his back, pain in his legs. MEDICATIONS: His list of medications consists of amiodarone 200 gm, it has been increased to 200 mg twice a day. The patient is on Hectorol 0.5 mg daily. The patient is on Lasix 40 mg twice a day, insulin coverage with meals. The patient is on Protonix 40 mg daily, Os-Pedro 500 mg daily. The patient is on Rocephin 2 g IV q. 24 hours. The patient is on Singulair 10 mg daily, sodium chloride, IV fluids 100 mL/hour. To hydrate the patient because he has severe dehydration associated with the infection. The patient is also on Synthroid 100 mcg daily. He is on a heart healthy diet as tolerated. Possibly the patient will need some thickening with the food because he had difficulty in swallowing too. LABORATORY DATA: The patient's blood work done in the emergency room that shows a hemoglobin of 8, the patient's white count is 13,900 and his differential shows granulocyte count of 85%. The patient's chemistry: The sodium is 138, potassium is 4.8. His BUN is 43, creatinine 1.6. The patient's liver enzymes are slightly elevated, which is ALT is 68, AST is 93. The patient also has abnormal BNP, which is 2000. The patient's albumin is low and total protein is low. IMPRESSION: The patient has been evaluated by Infectious Disease. Dr. Louise has been called in to see the patient. He is a urologist. Dr. Walters and Dr. Chavarria, the cardiologists will be seeing the patient to evaluate for cardiac condition. Dr. Hernandez is the Infectious Disease optimization consultant. He is on the case and he has recommended antibiotic for the patient. We will evaluate the patient for possible blood transfusion because of his cardiac condition and unstable state. His hemoglobin is low at this time and he needs some additional support. We will also consider the patient get intravenous fluids. We will continue that. His overall condition is unstable at this time. His prognosis is guarded. He will be treated as an acute sick patient in the Intensive Care Unit at this point. We will follow up with the patient's condition. Giselle Polk MD [facility]
--- NOTE | 2017-09-20 13:47 | CARD ---
APPROVED REPORT EKG Measurement Heart [id number] <Conclusion> AV sequential or dual chamber electronic pacemaker
--- NOTE | 2017-09-20 15:07 | CON ---
DATE: 09/20/2017 CONSULT SERVICE: Cardiology. REASON FOR CONSULTATION: Defibrillator fired, history of cardiomyopathy, history of coronary artery disease, history of CABG, admitted with gross fluid overload. BRIEF CLINICAL HISTORY: This is an 87-year-old male with past medical history significant for coronary artery disease, status post CABG, status post PTCA; pre CABG, status post PTCA; post CABG, status post open heart surgery; renal insufficiency; chronic indwelling Avendano catheter; multiple urosepsis, prostate cancer with metastasis who was admitted here because of shortness of breath. While in the ambulance, the patient states it was fired twice who came in and admitted to the ICU. Denies any chest pain, but says that multiple times defibrillator went off and very short of breath and swelling of all over extremity and all over the body. The patient states that he was feeling weak today, states he was feeling cold and shivering. Last that he was shivering while in the ambulance and the pacemaker went off and fired. PAST MEDICAL HISTORY: Significant for coronary artery disease; diabetes; hypertension; hyperlipidemia; coronary artery disease, status post AICD; renal insufficiency; prostate cancer; COPD, status post recently generally changed from 11/2016; history of DVT; history of atrial fibrillation, was on Pradaxa at one point, but because of the hematuria discontinued; history of non-STEMI, decided to treat medically. Recent cardiac workup as follows; the patient had echo on 12/20/2016 shows ejection fraction 45%, moderate mitral regurgitation, [id number] tricuspid regurgitation, RV systolic pressure of 43, history of AICD, history of recent AICD generator change in 01/2017. CURRENT MEDICATIONS: The patient is taking at home Protonix, Singulair, Synthroid, insulin, digoxin, calcium, and amiodarone 200 mg daily. REVIEW OF SYSTEMS: As per HPI. PHYSICAL EXAMINATION: VITAL SIGNS: Temperature afebrile, heart rate 60, blood pressure 120/47. HEENT: PERRLA. Extraocular muscles are intact. NECK: Supple. No carotid bruit or thyromegaly. CHEST: Clear to auscultation. HEART: S1, S2, regular. ABDOMEN: Soft. EXTREMITIES: Clubbing and cyanosis negative. LABORATORY DATA: Blood workup as follows: WBC 13.9, hemoglobin 8, hematocrit 26, platelet count 199. Chemistry shows sodium 130, potassium 4.5, chloride 101, carbon dioxide of 29, anion gap of 13, BUN 43, creatinine 1.6. Troponin 0.14. IMPRESSION: Gross fluid overload, renal insufficiency, creatinine clearance 40 mL, diabetes, hypertension, hyperlipidemia, coronary artery disease, sepsis, recurrent urinary tract infection, indwelling Avendano catheter, prostate cancer, anemia, history of [id number] myocardial infarction in the past treated medically, renal insufficiency, defibrillator fired. RECOMMENDATIONS: We will get AICD interrogation for [employer] stat. We will continue diuretics, because of the patient gross fluid overload, increased his amiodarone to 400 mg p.o. t.i.d.. Monitor renal function and liver function closely. Further recommendation and hospital course and interrogation of the AICD. Last echo in 12/2016 shows ejection fraction 45%, moderate mitral regurgitation, moderate tricuspid regurgitation, RV systolic pressure of 46. Repeat magnesium level in the morning. We will load with amiodarone 400 mg p.o. t.i.d. and interrogate the pacemaker. Further recommendation after the interrogation of the pacemaker. Thank you Dr. Polk for providing us the opportunity in taking care of the patient, Perry Trinh. We will follow with you. Mely Chavarria MD
--- NOTE | 2017-09-20 19:40 | CARD ---
APPROVED REPORT EKG Measurement Heart [id number] <Conclusion> Electronic ventricular pacemaker
--- NOTE | 2017-09-20 19:44 | CON ---
DATE: 09/20/2017 ADDENDUM Addendum to initial consult dictated this morning. REASON FOR ADDENDUM: AICD with interrogation of the Medtronic, found that the patient went into rapid rate in 640, so a defibrillator started pacing antitachycardia and broke to the normal sinus. Later on, the patient went into again tachycardia and degenerate into VF, so shock delivered 721 and then second shock was delivered 723, broke to normal sinus. The OptiVol, which is sensitive for elevation of fluid level also elevated. In summary, the patient had antitachycardia device, was over paced from ICD, later on 2 shocks delivered, and also OptiVol showed the patient is in congestive heart failure. So, we will start Coreg, load with amiodarone and start IV Lasix. Aggressively diuresed. Further recommendations depend on hospital course. Thank you Dr. Polk for providing us the opportunity in taking care of the patient, Ziggy Amador. Mely Chavarria MD cc: Giselle Polk MD
[2017-09-21] MEDS: Levothyroxine 100 MCG TAB PO SCH (05:12)
[2017-09-21] MEDS: Pantoprazole 40 mg EC Tab PO SCH (05:12)
[2017-09-21 06:07] LABS: BASO # 0.04 K/mm3 (0.0-2.0); BASO % 0.5 % (0.0-3.0); EOS # 0.2 (0.0-0.7); EOS % 2.7 % (1.5-5.0); GRAN # 6.84 (1.4-6.5); GRAN % 79.2 % (50.0-68.0); HEMATOCRIT 27.2 % (42.0-52.0); LYMPH # 0.8 (1.2-3.4); LYMPH % 8.9 % (22.0-35.0); MEAN CELL VOLUME 86.9 fl (80.0-105.0); MEAN CORPUSCULAR HEMOGLOBIN 26.8 pg (25.0-35.0); MEAN CORPUSCULAR HGB CONC 30.9 g/dl (31.0-37.0); MEAN PLATELET VOLUME 9.7 fl (7.0-11.0); MONO # 0.8 (0.1-0.6); MONO % 8.7 % (1.0-6.0); RED CELL DISTRIBUTION WIDTH 16.2 % (11.5-14.5); WHITE BLOOD COUNT 8.6 10^3/ul (4.5-11.0)
--- NOTE | 2017-09-21 07:24 | CP.CCUPN ---
<Flavio Millard - Last Filed: 09/21/17 10:41> CCU Subjective - Physician Review Subjective (Free Text): ICU progress note Patient seen and examined at bedside. No acute overnight events or new complaints reported. AICD has not fired since his admission to [facility]. Discussed with Dr. Chavarria this morning and we will continue with treatment for CHF as well as his UTI. Urine output over the last 12 hours has been 400cc with an additional ~200cc this morning. Denies chest pain, palpitations, SOB. CCU Objective - Vital Signs / Intake & Output Vital Signs (Last 4 hours): Vital Signs Temp Pulse Resp BP Pulse Ox 09/21/17 05:16 97.7 F 60 16 117/48 L 96 Intake and Output (Last 8hrs): Intake & Output 09/20/17 09/21/17 09/21/17 22:59 06:59 14:59 Intake Total 540 Output Total 840 Balance -300 Intake: Oral 540 Output: Urine 840 Urethral (Schroeder) 840 Other: # Bowel Movements 1 - Physical Exam Head: Positive for: Atraumatic, Normocephalic Pupils: Positive for: PERRL Extroacular Muscles: Positive for: EOMI Conjunctiva: Positive for: Normal Mouth: Positive for: Moist Mucous Membranes Neck: Positive for: Normal Range of Motion, JVD Respiratory/Chest: Positive for: Decreased Breath Sounds, Other (right sided chemoport, left sided pacemaker). Negative for: Respiratory Distress, Accessory Muscle Use Cardiovascular: Positive for: Regular Rate and Rhythm, Normal S1, S2. Negative for: Murmurs Abdomen: Positive for: Normal Bowel Sounds. Negative for: Tenderness, Distention, Peritoneal Signs Genitourinary Male: Positive for: Other (indwelling schroeder catheter) Back: Positive for: Normal Inspection Upper Extremity: Positive for: Normal Inspection. Negative for: Cyanosis, Edema Lower Extremity: Positive for: Edema (trace pedal edema). Negative for: CALF TENDERNESS Neurological: Positive for: GCS=15, CN II-XII Intact, Speech Normal Skin: Positive for: Warm, Dry, Normal Color. Negative for: Rashes Psychiatric: Positive for: Alert, Oriented x 3, Normal Insight, Normal Concentration - Medications Active Medications: Active Medications Generic Name Dose Route Start Last Admin Trade Name Freq PRN Reason Stop Dose Admin Albuterol/Ipratropium 3 ml 09/20/17 11:30 09/20/17 22:28 Duoneb 3 Mg/0.5 Mg (3 Ml) Ud IH 3 ml [id number] JEANA Administration Amiodarone HCl 400 mg 09/20/17 14:00 09/20/17 17:06 Cordarone PO 09/21/17 23:59 400 mg TID JEANA Administration Amiodarone HCl 200 mg 09/22/17 10:00 Cordarone PO DAILY JEANA Calcium Carbonate 500 mg 09/20/17 10:00 09/20/17 09:38 Oscal PO 500 mg DAILY JEANA Administration Carvedilol 3.125 mg 09/20/17 18:00 09/20/17 17:06 Coreg PO 3.125 mg BID JEANA Administration Collagenase 0 gm 09/21/17 10:00 Santyl TOP DAILY JEANA Doxercalciferol 0.5 mcg 09/20/17 10:00 09/20/17 09:39 Hectorol PO 0.5 mcg DAILY JEANA Administration Furosemide 40 mg 09/20/17 14:00 09/20/17 13:16 Lasix IV 40 mg 0800,1400 JEANA Administration Heparin Sodium (Porcine) 5,000 units 09/20/17 22:00 09/20/17 21:13 Heparin SC 5,000 units Q12 JEANA Administration Protocol Meropenem 1 gm/ Dextrose 100 mls @ 100 mls/hr 09/20/17 10:00 09/20/17 22:05 IVPB 09/29/17 10:01 100 mls/hr Q12 JEANA Administration Protocol Ibuprofen 600 mg 09/20/17 19:49 09/20/17 20:06 Motrin Tab PO 600 mg Q6H PRN Administration Fever >100.4 F Insulin Human Regular 0 units 09/20/17 07:30 09/20/17 22:05 Humulin R Med SC Not Given ACHS [facility] Protocol Levothyroxine Sodium 100 mcg 09/20/17 06:00 09/21/17 05:12 Synthroid PO 100 mcg 0600 JEANA Administration Montelukast Sodium 10 mg 09/20/17 22:00 09/20/17 21:13 Singulair PO 10 mg HS JEANA Administration Pantoprazole Sodium 40 mg 09/20/17 06:00 09/21/17 05:12 Protonix Ec Tab PO 40 mg 0600 JEANA Administration - Patient Studies Lab Studies: Lab Studies 09/21/17 09/20/17 09/20/17 Range/Units 05:58 21:47 16:33 WBC 8.6 D (4.5-11.0) 10^3/ul RBC 3.13 L (3.5-6.1) 10^6/uL Hgb 8.4 L (14.0-18.0) g/dL Hct 27.2 L (42.0-52.0) % MCV 86.9 (80.0-105.0) fl MCH 26.8 (25.0-35.0) pg MCHC 30.9 L (31.0-37.0) g/dl RDW 16.2 H (11.5-14.5) % Plt Count 150 (120.0-450.0) 10^3/uL MPV 9.7 (7.0-11.0) fl Gran % 79.2 H (50.0-68.0) % Lymph % (Auto) 8.9 L (22.0-35.0) % [place] % (Auto) 8.7 H (1.0-6.0) % Eos % (Auto) 2.7 (1.5-5.0) % Baso % (Auto) 0.5 (0.0-3.0) % Gran # 6.84 H (1.4-6.5) Lymph # 0.8 L (1.2-3.4) [place] # 0.8 H (0.1-0.6) Eos # 0.2 (0.0-0.7) Baso # 0.04 (0.0-2.0) K/mm3 Sodium (132-148) mmol/L Potassium (3.6-5.0) mmol/L Chloride (98-107) mmol/L Carbon Dioxide (21-33) mmol/L Anion Gap (10-20) BUN (7-21) mg/dL Creatinine (0.8-1.5) mg/dl Est GFR ( Amer) Est GFR (Non-Af Amer) POC Glucose (mg/dL) 203 H 217 H (65-110) mg/dL Random Glucose (70-110) mg/dL Calcium (8.4-10.5) mg/dL Total Bilirubin (0.2-1.3) mg/dL AST (17-59) U/L ALT (7-56) U/L Alkaline Phosphatase (38-126) U/L Troponin I ng/mL Total Protein (5.8-8.3) g/dL Albumin (3.0-4.8) g/dL Globulin gm/dL Albumin/Globulin Ratio (1.1-1.8) Free T4 (0.78-2.19) ng/dL TSH 3rd Generation (0.46-4.68) mIU/mL 09/20/17 09/20/17 09/20/17 Range/Units 11:53 08:03 06:30 WBC (4.5-11.0) 10^3/ul RBC (3.5-6.1) 10^6/uL Hgb (14.0-18.0) g/dL Hct (42.0-52.0) % MCV (80.0-105.0) fl MCH (25.0-35.0) pg MCHC (31.0-37.0) g/dl RDW (11.5-14.5) % Plt Count (120.0-450.0) 10^3/uL MPV (7.0-11.0) fl Gran % (50.0-68.0) % Lymph % (Auto) (22.0-35.0) % [place] % (Auto) (1.0-6.0) % Eos % (Auto) (1.5-5.0) % Baso % (Auto) (0.0-3.0) % Gran # (1.4-6.5) Lymph # (1.2-3.4) [place] # (0.1-0.6) Eos # (0.0-0.7) Baso # (0.0-2.0) K/mm3 Sodium 138 (132-148) mmol/L Potassium 4.8 (3.6-5.0) mmol/L Chloride 101 (98-107) mmol/L Carbon Dioxide 29 (21-33) mmol/L Anion Gap 13 (10-20) BUN 43 H (7-21) mg/dL Creatinine 1.6 H (0.8-1.5) mg/dl Est GFR ( Amer) 50 Est GFR (Non-Af Amer) 41 POC Glucose (mg/dL) 182 H (65-110) mg/dL Random Glucose 103 (70-110) mg/dL Calcium 7.9 L (8.4-10.5) mg/dL Total Bilirubin 0.4 (0.2-1.3) mg/dL AST 93 H (17-59) U/L ALT 68 H (7-56) U/L Alkaline Phosphatase 167 H (38-126) U/L Troponin I 0.14 H* ng/mL Total Protein 5.1 L (5.8-8.3) g/dL Albumin 2.7 L (3.0-4.8) g/dL Globulin 2.4 gm/dL Albumin/Globulin Ratio 1.1 (1.1-1.8) Free T4 (0.78-2.19) ng/dL TSH 3rd Generation (0.46-4.68) mIU/mL 09/20/17 09/20/17 Range/Units 06:30 06:00 WBC 13.9 H (4.5-11.0) 10^3/ul RBC 2.98 L (3.5-6.1) 10^6/uL Hgb 8.0 L (14.0-18.0) g/dL Hct 26.0 L (42.0-52.0) % MCV 87.2 (80.0-105.0) fl MCH 26.8 (25.0-35.0) pg MCHC 30.8 L (31.0-37.0) g/dl RDW 16.3 H (11.5-14.5) % Plt Count 199 (120.0-450.0) 10^3/uL MPV 9.9 (7.0-11.0) fl Gran % 85.5 H (50.0-68.0) % Lymph % (Auto) 3.3 L (22.0-35.0) % [place] % (Auto) 10.4 H (1.0-6.0) % Eos % (Auto) 0.6 L (1.5-5.0) % Baso % (Auto) 0.2 (0.0-3.0) % Gran # 11.86 H (1.4-6.5) Lymph # 0.5 L (1.2-3.4) [place] # 1.5 H (0.1-0.6) Eos # 0.1 (0.0-0.7) Baso # 0.03 (0.0-2.0) K/mm3 Sodium (132-148) mmol/L Potassium (3.6-5.0) mmol/L Chloride (98-107) mmol/L Carbon Dioxide (21-33) mmol/L Anion Gap (10-20) BUN (7-21) mg/dL Creatinine (0.8-1.5) mg/dl Est GFR ( Amer) Est GFR (Non-Af Amer) POC Glucose (mg/dL) (65-110) mg/dL Random Glucose (70-110) mg/dL Calcium (8.4-10.5) mg/dL Total Bilirubin (0.2-1.3) mg/dL AST (17-59) U/L ALT (7-56) U/L Alkaline Phosphatase (38-126) U/L Troponin I ng/mL Total Protein (5.8-8.3) g/dL Albumin (3.0-4.8) g/dL Globulin gm/dL Albumin/Globulin Ratio (1.1-1.8) Free T4 1.67 (0.78-2.19) ng/dL TSH 3rd Generation 5.40 H (0.46-4.68) mIU/mL Laboratory Results - last 24 hr 09/20/17 09/20/17 09/20/17 06:00 06:30 06:30 WBC 13.9 H RBC 2.98 L Hgb 8.0 L Hct 26.0 L MCV 87.2 MCH 26.8 MCHC 30.8 L RDW 16.3 H Plt Count 199 MPV 9.9 Gran % 85.5 H Lymph % (Auto) 3.3 L [place] % (Auto) 10.4 H Eos % (Auto) 0.6 L Baso % (Auto) 0.2 Gran # 11.86 H Lymph # 0.5 L [place] # 1.5 H Eos # 0.1 Baso # 0.03 Sodium 138 Potassium 4.8 Chloride 101 Carbon Dioxide 29 Anion Gap 13 BUN 43 H Creatinine 1.6 H Est GFR ( Amer) 50 Est GFR (Non-Af Amer) 41 POC Glucose (mg/dL) Random Glucose 103 Calcium 7.9 L Total Bilirubin 0.4 AST 93 H ALT 68 H Alkaline Phosphatase 167 H Troponin I Total Protein 5.1 L Albumin 2.7 L Globulin 2.4 Albumin/Globulin Ratio 1.1 Free T4 1.67 TSH 3rd Generation 5.40 H 09/20/17 09/20/17 09/20/17 08:03 11:53 16:33 WBC RBC Hgb Hct MCV MCH MCHC RDW Plt Count MPV Gran % Lymph % (Auto) [place] % (Auto) Eos % (Auto) Baso % (Auto) Gran # Lymph # [place] # Eos # Baso # Sodium Potassium Chloride Carbon Dioxide Anion Gap BUN Creatinine Est GFR ( Amer) Est GFR (Non-Af Amer) POC Glucose (mg/dL) 182 H 217 H Random Glucose Calcium Total Bilirubin AST ALT Alkaline Phosphatase Troponin I 0.14 H* Total Protein Albumin Globulin Albumin/Globulin Ratio Free T4 TSH 3rd Generation 09/20/17 09/21/17 21:47 05:58 WBC 8.6 D RBC 3.13 L Hgb 8.4 L Hct 27.2 L MCV 86.9 MCH 26.8 MCHC 30.9 L RDW 16.2 H Plt Count 150 MPV 9.7 Gran % 79.2 H Lymph % (Auto) 8.9 L [place] % (Auto) 8.7 H Eos % (Auto) 2.7 Baso % (Auto) 0.5 Gran # 6.84 H Lymph # 0.8 L [place] # 0.8 H Eos # 0.2 Baso # 0.04 Sodium Potassium Chloride Carbon Dioxide Anion Gap BUN Creatinine Est GFR ( Amer) Est GFR (Non-Af Amer) POC Glucose (mg/dL) 203 H Random Glucose Calcium Total Bilirubin AST ALT Alkaline Phosphatase Troponin I Total Protein Albumin Globulin Albumin/Globulin Ratio Free T4 TSH 3rd Generation Fingerstick Blood Sugar Results: 203 Critical Care Progress Note - Nutrition Nutrition: Nutrition Category Date Time Status Consistent Carbohydrate [DIET] Diets 09/20/17 Breakfast Ordered Assessment/Plan - Assessment and Plan (Free Text) Plan: 87yo male with history of prostate CA with metastases, chronic indwelling schroeder catheter changed monthly by his urologist (Dr. 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 OptiVol level which is sensitive for elevation of fluid levels was elevated suggesting that the patient is in congestive heart failure. -Continue with amiodarone 400mg PO TID followed by Amiodarone 200mg daily per cardiology recommendations -Continue with lasix 40mg IVP BID -Continue with coreg 3.125 PO BID -Strict I's and O's -Daily weight -Cardio consulted - Dr. Chavarria Pulm: -CXR reviewed; revealed no active pulmonary disease, no significant pleural effusion identified; see full report -Monitor and maintain SaO2 > 90; currently sating well on room air -HOB > 30' -Continue home singulair GI: -Protonix for GI prophylaxis Nephro: -Monitor and correct electrolyte abnormalities as indicated -Strict I's and O's, daily weight Heme: -Heparin SC for DVT prophylaxis ID: -Febrile yesterday night at 8pm (T 101.4) however leukocytosis downtrending this morning to 8.6 from 13.9 -Urinalysis notable for UTI, pending urine culture -Blood culture positive for gram negative willam in one bottle likely secondary to source -Patient given a dose of amikacin by ID and started on meropenem -Procalcitonin pending Endo: -Monitor and maintain euglycemia with blood glucose between 140-180 -Continue home synthroid -Consistent carb diet -Insulin sliding scale GI/DVT ppx: protonix/heparin Patient seen and case discussed/reviewed with attending, Dr. Connell <Collin Connell - Last Filed: 09/21/17 17:44> CCU Objective - Vital Signs / Intake & Output Vital Signs (Last 4 hours): Vital Signs Temp Pulse Resp BP Pulse Ox 09/21/17 17:00 60 29 H 108/53 L 100 09/21/17 16:00 98.4 F 60 22 100/47 L 100 09/21/17 15:00 60 25 H 130/75 99 09/21/17 14:00 68 44 H 120/47 L 100 Intake and Output (Last 8hrs): Intake & Output 09/21/17 09/21/17 09/21/17 06:59 14:59 22:59 Intake Total 340 Output Total 900 Balance -560 Weight 153 lb 6.4 oz 153 lb 6.4 oz Intake: Oral 240 Tube Feeding 0 TPN/PPN 0 Blood Product 0 Lipid 0 Albumin 0 Other 100 Output: Urine 900 Urethral (Schroeder) 900 Stool 0 Urine/Stool Mix 0 Emesis 0 Oral Regurgitation 0 Other 0 Other: # Voids Urethral (Schroeder) 0 # Bowel Movements 0 - Medications Active Medications: Active Medications Generic Name Dose Route Start Last Admin Trade Name Freq PRN Reason Stop Dose Admin Albuterol/Ipratropium 3 ml 09/20/17 11:30 09/21/17 13:21 Duoneb 3 Mg/0.5 Mg (3 Ml) Ud IH 3 ml [id number] JEANA Administration Amiodarone HCl 400 mg 09/20/17 14:00 09/21/17 13:38 Cordarone PO 09/21/17 23:59 400 mg TID JEANA Administration Amiodarone HCl 200 mg 09/22/17 10:00 Cordarone PO DAILY JEANA Calcium Carbonate 500 mg 09/20/17 10:00 09/21/17 09:33 Oscal PO 500 mg DAILY JEANA Administration Carvedilol 3.125 mg 09/20/17 18:00 09/21/17 09:33 Coreg PO 3.125 mg BID JEANA Administration Collagenase 0 gm 09/21/17 10:00 09/21/17 09:37 Santyl TOP 1 applic DAILY JEANA Administration Doxercalciferol 0.5 mcg 09/20/17 10:00 09/21/17 09:33 Hectorol PO 0.5 mcg DAILY JEANA Administration Furosemide 40 mg 09/20/17 14:00 09/21/17 13:40 Lasix IV 40 mg 0800,1400 JEANA Administration Heparin Sodium (Porcine) 5,000 units 09/20/17 22:00 09/21/17 09:34 Heparin SC 5,000 units Q12 JEANA Administration Protocol Meropenem 50 mls @ 100 mls/hr 09/21/17 07:32 09/21/17 09:34 Merrem Iv 1 Gm Premix IVPB 09/29/17 10:01 100 mls/hr Q12 JEANA Administration Protocol Ibuprofen 600 mg 09/20/17 19:49 09/20/17 20:06 Motrin Tab PO 600 mg Q6H PRN Administration Fever >100.4 F Insulin Human Regular 0 units 09/20/17 07:30 09/21/17 12:22 Humulin R Med SC 3 units ACHS JEANA Administration Protocol Levothyroxine Sodium 100 mcg 09/20/17 06:00 09/21/17 05:12 Synthroid PO 100 mcg 0600 JEANA Administration Montelukast Sodium 10 mg 09/20/17 22:00 09/20/17 21:13 Singulair PO 10 mg HS JEANA Administration Pantoprazole Sodium 40 mg 09/20/17 06:00 09/21/17 05:12 Protonix Ec Tab PO 40 mg 0600 JEANA Administration Polyethylene Glycol 17 gm 09/21/17 10:00 09/21/17 09:36 Miralax PO 17 gm DAILY JEANA Administration - Patient Studies Lab Studies: Lab Studies 09/21/17 09/21/17 09/21/17 Range/Units 17:10 11:38 08:22 WBC (4.5-11.0) 10^3/ul RBC (3.5-6.1) 10^6/uL Hgb (14.0-18.0) g/dL Hct (42.0-52.0) % MCV (80.0-105.0) fl MCH (25.0-35.0) pg MCHC (31.0-37.0) g/dl RDW (11.5-14.5) % Plt Count (120.0-450.0) 10^3/uL MPV (7.0-11.0) fl Gran % (50.0-68.0) % Lymph % (Auto) (22.0-35.0) % [place] % (Auto) (1.0-6.0) % Eos % (Auto) (1.5-5.0) % Baso % (Auto) (0.0-3.0) % Gran # (1.4-6.5) Lymph # (1.2-3.4) [place] # (0.1-0.6) Eos # (0.0-0.7) Baso # (0.0-2.0) K/mm3 Sodium (132-148) mmol/L Potassium (3.6-5.0) mmol/L Chloride (98-107) mmol/L Carbon Dioxide (21-33) mmol/L Anion Gap (10-20) BUN (7-21) mg/dL Creatinine (0.8-1.5) mg/dl Est GFR ( Amer) Est GFR (Non-Af Amer) POC Glucose (mg/dL) 260 H 262 H 155 H (65-110) mg/dL Random Glucose (70-110) mg/dL Hemoglobin A1c (4.2-6.5) % Calcium (8.4-10.5) mg/dL Phosphorus (2.5-4.5) mg/dL Magnesium (1.7-2.2) mg/dL Total Bilirubin (0.2-1.3) mg/dL AST (17-59) U/L ALT (7-56) U/L Alkaline Phosphatase (38-126) U/L Lactate Dehydrogenase (333-699) U/L Total Creatine Kinase (35-230) U/L Troponin I ng/mL Total Protein (5.8-8.3) g/dL Albumin (3.0-4.8) g/dL Globulin gm/dL Albumin/Globulin Ratio (1.1-1.8) Triglycerides (35-160) mg/dL Cholesterol (130-200) mg/dL LDL Cholesterol Direct (0-129) mg/dL HDL Cholesterol (29-60) mg/dL Procalcitonin (0.19-0.49) NG/ML TSH 3rd Generation (0.46-4.68) mIU/mL 09/21/17 09/21/17 09/21/17 Range/Units 08:02 05:58 05:58 WBC (4.5-11.0) 10^3/ul RBC (3.5-6.1) 10^6/uL Hgb (14.0-18.0) g/dL Hct (42.0-52.0) % MCV (80.0-105.0) fl MCH (25.0-35.0) pg MCHC (31.0-37.0) g/dl RDW (11.5-14.5) % Plt Count (120.0-450.0) 10^3/uL MPV (7.0-11.0) fl Gran % (50.0-68.0) % Lymph % (Auto) (22.0-35.0) % [place] % (Auto) (1.0-6.0) % Eos % (Auto) (1.5-5.0) % Baso % (Auto) (0.0-3.0) % Gran # (1.4-6.5) Lymph # (1.2-3.4) [place] # (0.1-0.6) Eos # (0.0-0.7) Baso # (0.0-2.0) K/mm3 Sodium (132-148) mmol/L Potassium (3.6-5.0) mmol/L Chloride (98-107) mmol/L Carbon Dioxide (21-33) mmol/L Anion Gap (10-20) BUN (7-21) mg/dL Creatinine (0.8-1.5) mg/dl Est GFR ( Amer) Est GFR (Non-Af Amer) POC Glucose (mg/dL) (65-110) mg/dL Random Glucose (70-110) mg/dL Hemoglobin A1c 8.8 H (4.2-6.5) % Calcium (8.4-10.5) mg/dL Phosphorus (2.5-4.5) mg/dL Magnesium (1.7-2.2) mg/dL Total Bilirubin (0.2-1.3) mg/dL AST (17-59) U/L ALT (7-56) U/L Alkaline Phosphatase (38-126) U/L Lactate Dehydrogenase (333-699) U/L Total Creatine Kinase (35-230) U/L Troponin I ng/mL Total Protein (5.8-8.3) g/dL Albumin (3.0-4.8) g/dL Globulin gm/dL Albumin/Globulin Ratio (1.1-1.8) Triglycerides (35-160) mg/dL Cholesterol (130-200) mg/dL LDL Cholesterol Direct (0-129) mg/dL HDL Cholesterol (29-60) mg/dL Procalcitonin 4.24 H (0.19-0.49) NG/ML TSH 3rd Generation 3.99 (0.46-4.68) mIU/mL 09/21/17 09/21/17 09/20/17 Range/Units 05:58 05:58 21:47 WBC 8.6 D (4.5-11.0) 10^3/ul RBC 3.13 L (3.5-6.1) 10^6/uL Hgb 8.4 L (14.0-18.0) g/dL Hct 27.2 L (42.0-52.0) % MCV 86.9 (80.0-105.0) fl MCH 26.8 (25.0-35.0) pg MCHC 30.9 L (31.0-37.0) g/dl RDW 16.2 H (11.5-14.5) % Plt Count 150 (120.0-450.0) 10^3/uL MPV 9.7 (7.0-11.0) fl Gran % 79.2 H (50.0-68.0) % Lymph % (Auto) 8.9 L (22.0-35.0) % [place] % (Auto) 8.7 H (1.0-6.0) % Eos % (Auto) 2.7 (1.5-5.0) % Baso % (Auto) 0.5 (0.0-3.0) % Gran # 6.84 H (1.4-6.5) Lymph # 0.8 L (1.2-3.4) [place] # 0.8 H (0.1-0.6) Eos # 0.2 (0.0-0.7) Baso # 0.04 (0.0-2.0) K/mm3 Sodium 136 (132-148) mmol/L Potassium 4.2 (3.6-5.0) mmol/L Chloride 101 (98-107) mmol/L Carbon Dioxide 33 (21-33) mmol/L Anion Gap 7 L (10-20) BUN 44 H (7-21) mg/dL Creatinine 1.5 (0.8-1.5) mg/dl Est GFR ( Amer) 54 Est GFR (Non-Af Amer) 44 POC Glucose (mg/dL) 203 H (65-110) mg/dL Random Glucose 163 H (70-110) mg/dL Hemoglobin A1c (4.2-6.5) % Calcium 8.1 L (8.4-10.5) mg/dL Phosphorus 3.3 (2.5-4.5) mg/dL Magnesium 2.2 (1.7-2.2) mg/dL Total Bilirubin 0.4 (0.2-1.3) mg/dL AST 138 H D (17-59) U/L ALT 86 H (7-56) U/L Alkaline Phosphatase 232 H D (38-126) U/L Lactate Dehydrogenase 1062 H (333-699) U/L Total Creatine Kinase 94 (35-230) U/L Troponin I 0.08 D ng/mL Total Protein 4.9 L (5.8-8.3) g/dL Albumin 2.5 L (3.0-4.8) g/dL Globulin 2.5 gm/dL Albumin/Globulin Ratio 1.0 L (1.1-1.8) Triglycerides 157 (35-160) mg/dL Cholesterol < 50 L (130-200) mg/dL LDL Cholesterol Direct < 30 (0-129) mg/dL HDL Cholesterol 17 L (29-60) mg/dL Procalcitonin (0.19-0.49) NG/ML TSH 3rd Generation (0.46-4.68) mIU/mL Laboratory Results - last 24 hr 09/20/17 09/21/17 09/21/17 21:47 05:58 05:58 WBC 8.6 D RBC 3.13 L Hgb 8.4 L Hct 27.2 L MCV 86.9 MCH 26.8 MCHC 30.9 L RDW 16.2 H Plt Count 150 MPV 9.7 Gran % 79.2 H Lymph % (Auto) 8.9 L [place] % (Auto) 8.7 H Eos % (Auto) 2.7 Baso % (Auto) 0.5 Gran # 6.84 H Lymph # 0.8 L [place] # 0.8 H Eos # 0.2 Baso # 0.04 Sodium 136 Potassium 4.2 Chloride 101 Carbon Dioxide 33 Anion Gap 7 L BUN 44 H Creatinine 1.5 Est GFR ( Amer) 54 Est GFR (Non-Af Amer) 44 POC Glucose (mg/dL) 203 H Random Glucose 163 H Hemoglobin A1c Calcium 8.1 L Phosphorus 3.3 Magnesium 2.2 Total Bilirubin 0.4 AST 138 H D ALT 86 H Alkaline Phosphatase 232 H D Lactate Dehydrogenase 1062 H Total Creatine Kinase 94 Troponin I 0.08 D Total Protein 4.9 L Albumin 2.5 L Globulin 2.5 Albumin/Globulin Ratio 1.0 L Triglycerides 157 Cholesterol < 50 L LDL Cholesterol Direct < 30 HDL Cholesterol 17 L Procalcitonin TSH 3rd Generation 09/21/17 09/21/17 09/21/17 05:58 05:58 08:02 WBC RBC Hgb Hct MCV MCH MCHC RDW Plt Count MPV Gran % Lymph % (Auto) [place] % (Auto) Eos % (Auto) Baso % (Auto) Gran # Lymph # [place] # Eos # Baso # Sodium Potassium Chloride Carbon Dioxide Anion Gap BUN Creatinine Est GFR ( Amer) Est GFR (Non-Af Amer) POC Glucose (mg/dL) Random Glucose Hemoglobin A1c 8.8 H Calcium Phosphorus Magnesium Total Bilirubin AST ALT Alkaline Phosphatase Lactate Dehydrogenase Total Creatine Kinase Troponin I Total Protein Albumin Globulin Albumin/Globulin Ratio Triglycerides Cholesterol LDL Cholesterol Direct HDL Cholesterol Procalcitonin 4.24 H TSH 3rd Generation 3.99 09/21/17 09/21/17 09/21/17 08:22 11:38 17:10 WBC RBC Hgb Hct MCV MCH MCHC RDW Plt Count MPV Gran % Lymph % (Auto) [place] % (Auto) Eos % (Auto) Baso % (Auto) Gran # Lymph # [place] # Eos # Baso # Sodium Potassium Chloride Carbon Dioxide Anion Gap BUN Creatinine Est GFR ( Amer) Est GFR (Non-Af Amer) POC Glucose (mg/dL) 155 H 262 H 260 H Random Glucose Hemoglobin A1c Calcium Phosphorus Magnesium Total Bilirubin AST ALT Alkaline Phosphatase Lactate Dehydrogenase Total Creatine Kinase Troponin I Total Protein Albumin Globulin Albumin/Globulin Ratio Triglycerides Cholesterol LDL Cholesterol Direct HDL Cholesterol Procalcitonin TSH 3rd Generation Critical Care Progress Note - Nutrition Nutrition: Nutrition Category Date Time Status Consistent Carbohydrate [DIET] Diets 09/20/17 Breakfast Ordered Attending/Attestation - Attestation I have personally seen and examined this patient.: Yes I have fully participated in the care of the patient.: Yes I have reviewed all pertinent clinical information: Yes Notes (Text): 09/21/17 17:41 87 yo male with AICD discharged two days ago for Vfib, provoked by fluid retention due to CHF and UTI. Treated with amiodarone, diuresis, abx. AICD interrogated, cardiology follow up appreciated. Afebrile, mild leukocytosis, creatinine 1.5 down from 1.6. ok to downgrade to tele ccm time 40 min
[2017-09-21 07:30] LABS: TROPONIN I 0.08 ng/mL
[2017-09-21] MEDS: Albuterol-Ipratrop 3 mg / 0.5 (3 ml) UD IH SCH ×3 (08:01→19:46)
[2017-09-21 08:08] LABS: ALKALINE PHOSPHATASE 232 U/L (38-126); ALT/SGPT 86 U/L (7-56); AST/SGOT 138 U/L (17-59); BILIRUBIN,TOTAL 0.4 mg/dL (0.2-1.3); BLOOD UREA NITROGEN 44 mg/dL (7-21); CALCIUM 8.1 mg/dL (8.4-10.5); CARBON DIOXIDE 33 mmol/L (21-33); CHLORIDE 101 mmol/L (98-107); CHOLESTEROL < 50 mg/dL (130-200); GFR AFRICAN-AMERICAN 54; GLUCOSE,RANDOM 163 mg/dL (70-110); MAGNESIUM 2.2 mg/dL (1.7-2.2); PHOSPHOROUS 3.3 mg/dL (2.5-4.5); POTASSIUM 4.2 mmol/L (3.6-5.0); SODIUM 136 mmol/L (132-148); TOTAL PROTEIN 4.9 g/dL (5.8-8.3)
[2017-09-21] MEDS: Insulin Reg-MEDIUM-Coverage SC SCH ×4 (08:54→22:29)
[2017-09-21] MEDS: Meropenem IV 1 gm in NS 50 ML IVPB SCH ×2 (09:34→22:25)
[2017-09-21] MEDS: POLYETHYLENE GLYCOL 3350 17 GM/Dose PACKET PO SCH (09:36)
[2017-09-21] MEDS: Collagenase 250 Units/gm Ointment(30 gm) TOP SCH (09:37)
--- NOTE | 2017-09-21 10:33 | PN ---
DATE: SUBJECTIVE: The patient is in [facility] in Transition Care Unit, room 129, bed 1. The patient was admitted yesterday with urinary tract sepsis, and the patient had sudden cardiac arrhythmia. In spite of his cardiac pacemaker and defibrillator, the patient had ventricular tachycardia. The patient was defibrillated in the emergency room and in addition, the patient needed medical treatment. He was septic at the time of evaluation. He has fever and the urine showed evidence of blood-stained infected urine. PAST MEDICAL HISTORY: His past history is significant in that he has had history of congestive cardiomyopathy, old coronary artery disease, myocardial infarctions, multiple angioplasties. The patient has a history of diabetes mellitus, insulin-dependent type 2 diabetes. The patient also has history of hypothyroidism secondary to amiodarone treatment. The patient is still on amiodarone. The patient also has history of gastritis, gastric ulcer disease. 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 The patient has history of deep vein thrombosis. ALLERGIES: ALLERGIC TO MEDICATIONS SUCH LEVAQUIN, IODINATED CONTRAST MEDIA. The patient has no DNR. He is evaluated this morning, he is lying down in bed. He states he feels he has chills and despite the fact that the patient is covered. PHYSICAL EXAMINATION: VITAL SIGNS: The pulse is 60, blood pressure 117/48, respirations are 16, O2 sat is 96% on 2L of oxygen. HEENT: The patient's head is normocephalic. NECK: JVP is flat. Carotid pulses are present. HEART: Normal sinus rhythm. S1 and S2 present. The patient's cardiac pacemaker function was evaluated yesterday by the service. LUNGS: Trachea is central. Breath sounds are vesicular. No adventitious sounds. Scattered rales heard in the lower part of both lungs. INTEGRATION LEAD: The patient is conscious, rational, oriented. No focal cranial nerve palsies. The patient's motor and sensory functions had to be . The patient had difficulty in walking. His balance is poor. He also has history of chronic osteoarthritis. LABORATORY DATA: The patient's blood work done in the hospital. Recent blood work shows a hemoglobin 8.4. The patient's chemistry; BUN is 44, creatinine 1.5. The patient's sugar is 163. His liver enzymes were elevated. AST is 138, ALT is 86. This could be the fact that the patient has congestive cardiac failure with liver congestion, possibly also secondary to sepsis. The patient's albumin level is 2.5, which is low. The patient's total cholesterol was less than 50, which is remarkably low and his LDL is less than 30. He was on statin in the past. We will have to reevaluate the dose of statin the patient is on. We will continue current management. He is getting antibiotic treatment. MEDICATIONS: Consists of meropenem 1 g q. 12 hours. The patient gets wound care by ulceration of the left foot secondary to decubitus reason of being in bed in the past hospitalization. The patient is on Motrin 600 mg q. 6 hours for fever. The patient is getting MiraLax for constipation, Lasix 40 mg IV. The patient gets insulin coverage with meals. The patient is on vitamin D. He is on DuoNeb for respiratory treatment. ASSESSMENT AND PLAN: He has a history of chronic obstructive lung disease also. The patient gets heart-healthy diet, and he does have GI symptoms such as difficulty in swallowing. His food is possibly mixed with thickening agent in order to swallow the food. The patient has been evaluated by Dr. Bal as an outpatient recently. Currently, the patient will be seen by the consultation service, Dr. Hernandez, for Infectious Disease, Dr. Chavarria and Dr. Walters for Cardiology. The patient is also being evaluated by Dr. Hernandez for Infectious Disease. His overall prognosis is guarded. Condition is clinically improving. He is still in the ICU, and we will follow up medical treatment and end of care. Giselle Polk MD ANNAEBLLA
--- NOTE | 2017-09-21 11:18 | PQF CHF ---
This form is a permanent part of the medical record Dr. Marcus, Please specify type and severity of CHF present. Clarification of your documentation is requested to better reflect the severity of illness and intensity of treatment of your patient. Indicators present [x] Diagnosis of CHF and/or history of CHF [x] BNP > 200 [x] Imaging Finding of Pulmonary Edema /Pleural Effusions [x] Fluid/Volume Overload [] Pitting edema [] Ejection Fraction < 40% (Indicative of Systolic Heart Failure) [] Ejection Fraction > 40% (Indicative of Diastolic Heart Failure) [] Dyspnea / Orthopenea / Paroxysmal Nocturnal Dyspnea [] Other: Location in the medical record that reflects the above clinical findings: [] Treatment Provided: [] PHYSICIAN'S RESPONSE Based on your medical judgment of the clinical indicators outlined above, are you treating this patient for a known or suspected: [] Acute CHF [] Systolic [] Diastolic [] Combined [] Chronic CHF [] Systolic [] Diastolic [] Combined [x] Acute on Chronic CHF []Systolic [] Diastolic [x] Combined [] CHF due hypertension [] Acute systolic []Chronic systolic [] Acute/ chronic systolic [] Other, please indicate: [] [] If Unable to Determine, please check the box, sign and date. Present On Admission (POA) Indicator: [x] Present at the time of admission [] Not present at the time of admission [] Clinically Undetermined In responding to this query, please exercise your independent professional judgment. The fact that a question is asked does not imply that any particular answer is desired or expected. Thank you for your clarification on this documentation. If you have any questions please call:[ ] * Thank you, [ ]Kal Singletary [facility] #[id number] adult basic education teacher ANNABELLA
--- NOTE | 2017-09-21 17:57 | PN ---
DATE: 09/21/2017 SUBJECTIVE: The patient is in bed in no acute distress, was seen earlier this morning, comfortable. No fevers or chills. PHYSICAL EXAMINATION: VITAL SIGNS: On exam, temperature is 98, T-max last night was 101.4, respiratory rate of 22, heart rate of 66, blood pressure is 116/40. HEENT: Unremarkable. NECK: Supple. LUNGS: Have decreased breath sounds. HEART: Normal S1, S2. ABDOMEN: Soft, nontender. LABORATORY DATA: Laboratory examination reveals the patient's white count is 8.6, hemoglobin of 8, platelets of 150. Chemistries reveal a BUN of 42, creatinine of 1.5. LFTs are elevated. Urinalysis is noted and digoxin level is 2.2. Microbiology reveals a gram-negative willam in blood cultures. This was called last night at 21:37. I was not notified of the results, and review of orders reveals the patient to have received a dose of Amikacin, and the patient is on meropenem and had received a dose of vancomycin. ASSESSMENT AND PLAN: He is an 87-year-old male with chronic foot ulcer, renal disease, deep venous thrombosis, prostate cancer, diabetes, hypertension, pacemaker, history of Port-A-Cath, now with positive urinalysis and fever, now admitted with severe sepsis secondary to urine as the source with acute kidney injury with gram-negative willam bacteremia, but the patient had a history of carbapenem-resistant Klebsiella urinary tract infection. We will check on the identification of the gram-negative willam. The patient was given a dose of Amikacin and currently on meropenem, still concerned about a recurrence of the carbapenem-resistant gram-negative willam. The patient had in the past, and may have to do that, currently stable. We will wait for the identification and sensitivity of the gram-negative willam in the blood and waiting for urine culture also, which is probably a source versus blood versus the gastrointestinal. Elliot Hernandez MD
--- NOTE | 2017-09-21 23:27 | PN ---
DATE: 09/21/2017 REASON FOR CONSULTATION: History of cardiomyopathy, coronary artery disease, CABG, admitted with gross fluid overload, possible UTI. The patient feels better now without any chest pain, shortness of breath, or any palpitations. OBJECTIVE: VITAL SIGNS: Temperature afebrile, heart rate 60, blood pressure 108/53. HEENT: PERRLA. Extraocular muscles intact. NECK: Supple. No carotid bruits or thyromegaly. CHEST: Clear to auscultation. HEART: S1 and S2. Regular. ABDOMEN: Soft. EXTREMITIES: Clubbing and cyanosis negative. LABORATORY DATA: Blood workup as follows: WBC 8.6, hemoglobin 8.5, hematocrit 27.2, and platelet count 150. Chemistry shows sodium 130, potassium 4.0, chloride 101, carbon dioxide 33, anion gap of 7, BUN of 44, and creatinine of 1.6. Bilirubin 0.4, AST 133, ALT 36, total protein 4.9, albumin 2.5, albumin/globulin ratio is 17. IMPRESSION: 1. Renal insufficiency, creatinine clearance at 40 mL an hour. He is status post defibrillator, went off twice, interrogation done yesterday with the ALOHAtronic defibrillator. Initially, the patient was shaking, possibly secondary to sepsis and tachycardia, so antitachycardia pacing was done with defibrillator. Later on, this sense of the VF, so a shock was delivered at 721 and the second repeat shock was 723. The patient converted to normal sinus. sensitive to elevation of fluid overload consistent with the congestive heart failure. 2. Coronary artery disease; coronary artery bypass grafting in the past. History of multiple stents in the past. 3. History of prostate cancer; indwelling Avendano catheter. 4. Recurrent urinary tract infection and urinary tract infection; possible urosepsis, though blood culture pending; rule out urosepsis, secondary to indwelling Avendano catheter. 5. History of paroxysmal atrial fibrillation. 6. History of deep vein thrombosis, off anticoagulation because of gross hematuria. Last echo on 12/20/2016 showed ejection fraction 45%, moderate mitral regurgitation, [id number] tricuspid regurgitation, RV systolic pressure of 43, history of AICD, history of generator change in 01/2017. RECOMMENDATIONS: Load with amiodarone 400 mg p.o. t.i.d. Monitor renal and liver function, then decrease to 200 mg; continue antibiotics; continue Coreg; continue gentle diuretics as tolerated. We will cut down from tomorrow to once a day. We will follow with you. Thank you Dr. Polk for providing us the opportunity in taking care of the patient, Perry Trinh. Follow up the lab. If it remains stable, we will transfer to telemetry. Mely Chavarria MD
--- NOTE | 2017-09-22 01:22 | CON ---
CONSULTATION DATE: 09/21/2017 CHIEF COMPLAINT: Weakness, gross hematuria, fever. HISTORY OF PRESENT ILLNESS: This is an 87-year-old male, who is well known to me. The patient has a long history of urinary retention and metastatic prostate cancer. He has had multiple recurrent episodes of gross hematuria after the catheter changes. The patient was complaining of extreme weakness and fatigue at home along with a high fever. He was taken by EMS to the emergency room. During his transportation, the patient reports that his cardiac defibrillator went off a few times. He was found to have sepsis in the emergency room, the Avendano catheter was changed and the patient began having gross hematuria, a consultation was then requested for prostate cancer and recurrent gross hematuria, urinary retention. The patient is seen now in his bed in the CCU at [facility]. He reports feeling better at this point, although he still has extreme weakness and difficulty ambulating. The urine has grossly cleared and is now only lightly tinged. He reports no further fever or chills. PAST MEDICAL HISTORY: As above plus diabetes, hypothyroidism, coronary artery disease, congestive heart failure, cardiomyopathy, gastritis, peptic ulcer disease. MEDICATIONS: Currently include Cordarone, Coreg, DuoNeb, Hectorol, heparin, insulin coverage, Lasix, meropenem, MiraLAX, Motrin, Os-Pedro, Protonix, collagenase, Singulair, and Synthroid. ALLERGIES: ALLERGIC TO IV CONTRAST AND LEVAQUIN. FAMILY HISTORY: Noncontributory to this episode. SOCIAL HISTORY: No smoking or EtOH use. PHYSICAL EXAMINATION: GENERAL: The patient is awake, alert, and answering questions. VITAL SIGNS: He is currently afebrile, BP 120/47, pulse 74, respirations 16. NECK: His neck is supple with no adenopathy. CHEST: Reveals a slightly increased inspiratory effort. CARDIAC: Exam shows regular rhythm. There is [id number] peripheral edema noted. ABDOMEN: On abdominal exam, the abdomen is soft, nontender, nondistended. There is no hepatosplenomegaly. There is no costovertebral angle tenderness. : On exam, phallus is normal. The Avendano catheter in place which is draining slightly blood-tinged urine. Scrotum is normal. Testes bilaterally descended, nontender, no masses. Epididymis are normal. EXTREMITIES: Multiple ulcerations on the feet and there is a decubital ulcer on his lower back. There is no cyanosis. There is [id number] edema. LABORATORY EXAM: WBC count was 16.2, now down to 8.6; creatinine 1.5 with GFR of 44; BNP was 2040 on 09/19/2017. LDH is elevated. Alkaline phosphatase is elevated. RADIOLOGIC EXAM: No pertinent urologic x-rays. Chest x-ray showed no active disease from 09/19/2017. Blood cultures positive for Gram-negative rods. IMPRESSION AND PLAN: This is an 87-year-old male with metastatic prostate cancer, recurrent episodes of urosepsis, indwelling Avendano catheter for urinary retention, weakness, decubital ulcers. Plan for now is to continue IV fluids and IV antibiotics for urosepsis. Overall, the patient's condition appears guarded. His pacemaker fired a few times, and he has severe underlying cardiomyopathy. Urologically, Avendano catheter was changed and the urine has grossly cleared. He does not need any acute intervention at this time. The patient will continue to be followed in my office monthly for Avendano catheter changes. The patient was felt not to be a candidate for chemotherapy or other advanced treatments for prostate cancer given his significant cardiac disease and weakness. We will continue to follow the patient with you. Eddie Louise MD
[2017-09-22 05:39] LABS: BASO # 0.02 K/mm3 (0.0-2.0); BASO % 0.2 % (0.0-3.0); EOS # 0.1 (0.0-0.7); EOS % 0.8 % (1.5-5.0); GRAN # 8.18 (1.4-6.5); GRAN % 76.2 % (50.0-68.0); HEMATOCRIT 25.4 % (42.0-52.0); LYMPH # 1.1 (1.2-3.4); LYMPH % 10.5 % (22.0-35.0); MEAN CELL VOLUME 86.1 fl (80.0-105.0); MEAN CORPUSCULAR HEMOGLOBIN 27.1 pg (25.0-35.0); MEAN CORPUSCULAR HGB CONC 31.5 g/dl (31.0-37.0); MEAN PLATELET VOLUME 10.4 fl (7.0-11.0); MONO # 1.3 (0.1-0.6); MONO % 12.3 % (1.0-6.0); RED CELL DISTRIBUTION WIDTH 16.3 % (11.5-14.5); WHITE BLOOD COUNT 10.7 10^3/ul (4.5-11.0)
[2017-09-22] MEDS: Levothyroxine 100 MCG TAB PO SCH (05:45)
[2017-09-22 05:58] LABS: BILIRUBIN,TOTAL 0.3 mg/dL (0.2-1.3); CALCIUM 7.8 mg/dL (8.4-10.5); MAGNESIUM 2.1 mg/dL (1.7-2.2); POTASSIUM 4.3 mmol/L (3.6-5.0); TOTAL PROTEIN 4.8 g/dL (5.8-8.3)
[2017-09-22] MEDS: Pantoprazole 40 mg EC Tab PO SCH (06:42)
[2017-09-22] MEDS: Albuterol-Ipratrop 3 mg / 0.5 (3 ml) UD IH SCH ×3 (07:35→20:16)
--- NOTE | 2017-09-22 08:07 | CP.PCM.PN ---
Subjective - Date & Time of Evaluation Date of Evaluation: 09/22/17 Time of Evaluation: 07:40 - Subjective Subjective: Patient seen this morning in critical care unit bed 1. He is feeling better. Denies shortness of breath or chest pain. Objective - Vital Signs/Intake and Output Vital Signs (last 24 hours): Temp Pulse Resp BP Pulse Ox 102 F H 64 19 121/91 H 99 09/22/17 04:00 09/22/17 06:00 09/22/17 04:00 09/22/17 04:00 09/22/17 04:00 Intake and Output: 09/22/17 09/22/17 06:59 18:59 Intake Total 400 Output Total 500 Balance -100 - Medications Medications: Current Medications Albuterol/Ipratropium (Duoneb 3 Mg/0.5 Mg (3 Ml) Ud) 3 ml IH [id number] [facility] Last Admin: 09/22/17 07:35 Dose: 3 ml Amiodarone HCl (Cordarone) 200 mg PO DAILY [facility] Calcium Carbonate (Oscal) 500 mg PO DAILY [facility] Last Admin: 09/21/17 09:33 Dose: 500 mg Carvedilol (Coreg) 3.125 mg PO BID [facility] Last Admin: 09/21/17 17:46 Dose: 3.125 mg Collagenase (Santyl) 0 gm TOP DAILY [facility] Last Admin: 09/21/17 09:37 Dose: 1 applic Doxercalciferol (Hectorol) 0.5 mcg PO DAILY [facility] Last Admin: 09/21/17 09:33 Dose: 0.5 mcg Furosemide (Lasix) 40 mg IV DAILY [facility] Heparin Sodium (Porcine) (Heparin) 5,000 units SC Q12 JEANA PRN Reason: Protocol Last Admin: 09/21/17 22:28 Dose: 5,000 units Meropenem (Merrem Iv 1 Gm Premix) 50 mls @ 100 mls/hr IVPB Q12 JEANA PRN Reason: Protocol Stop: 09/29/17 10:01 Last Admin: 09/21/17 22:25 Dose: 100 mls/hr Ibuprofen (Motrin Tab) 600 mg PO Q6H PRN PRN Reason: Fever >100.4 F Last Admin: 09/22/17 02:43 Dose: 600 mg Insulin Human Regular (Humulin R Med) 0 units SC ACHS JEANA PRN Reason: Protocol Last Admin: 09/21/17 22:29 Dose: Not Given Levothyroxine Sodium (Synthroid) 100 mcg PO 0600 [facility] Last Admin: 09/22/17 05:45 Dose: 100 mcg Montelukast Sodium (Singulair) 10 mg PO HS [facility] Last Admin: 09/21/17 22:28 Dose: 10 mg Pantoprazole Sodium (Protonix Ec Tab) 40 mg PO 0600 [facility] Last Admin: 09/22/17 06:42 Dose: 40 mg Polyethylene Glycol (Miralax) 17 gm PO DAILY [facility] Last Admin: 09/21/17 09:36 Dose: 17 gm - Labs Labs: 09/22/17 05:10 09/22/17 05:03 PT 13.9 SECONDS (9.4-12.5) H 09/19/17 19:40 INR 1.27 (0.93-1.08) H 09/19/17 19:40 APTT 23.6 Seconds (25.1-36.5) L 09/19/17 19:40 - Constitutional Appears: No Acute Distress - Head Exam Head Exam: ATRAUMATIC, NORMOCEPHALIC - Respiratory Exam Respiratory Exam: Rhonchi, NORMAL BREATHING PATTERN - Cardiovascular Exam Cardiovascular Exam: +S1, +S2 - GI/Abdominal Exam GI & Abdominal Exam: Soft, Normal Bowel Sounds. absent: Tenderness - Extremities Exam Extremities Exam: Pedal Edema - Neurological Exam Neurological Exam: Alert, Awake, Oriented x3 Assessment and Plan - Assessment and Plan (Free Text) Assessment: Sepsis secondary to urinary tract infection Acute systolic heart failure COPD CKD Hypothyroidism DMII Coronary Artery Disease Metastatic prostate cancer Plan: Patient continues to have fevers of 102 yesterday. discontinue motrin and start Tylenol as needed for fever. Urine and blood cultures growing gram negative rods. continue antibiotics as per infectious disease continue diuresis for heart failure. Lower extremity edema improved. Defibrillator went off multiple times. Amiodarone dose initially increased, but not decreased back to 200 mg daily. continue wound care for left heel ulceration.
[2017-09-22] MEDS: Insulin Reg-MEDIUM-Coverage SC SCH ×4 (08:27→22:03)
[2017-09-22] MEDS: POLYETHYLENE GLYCOL 3350 17 GM/Dose PACKET PO SCH (09:36)
[2017-09-22] MEDS: Meropenem IV 1 gm in NS 50 ML IVPB SCH ×2 (09:38→22:52)
[2017-09-22] MEDS: Collagenase 250 Units/gm Ointment(30 gm) TOP SCH (09:38)
--- NOTE | 2017-09-22 10:37 | CP.PCM.PN ---
Subjective - Date & Time of Evaluation Date of Evaluation: 09/22/17 Time of Evaluation: 10:00 - Subjective Subjective: Comfortable in bed right now but has been running fevers overnight, no diarrhea , no SOB, no nausea or vomiting. Objective - Vital Signs/Intake and Output Vital Signs (last 24 hours): Temp Pulse Resp BP Pulse Ox 102 F H 64 19 121/91 H 99 09/22/17 04:00 09/22/17 06:00 09/22/17 04:00 09/22/17 04:00 09/22/17 04:00 Intake and Output: 09/22/17 09/22/17 06:59 18:59 Intake Total 400 Output Total 500 Balance -100 - Medications Medications: Current Medications Albuterol/Ipratropium (Duoneb 3 Mg/0.5 Mg (3 Ml) Ud) 3 ml IH [id number] [facility] Last Admin: 09/21/17 19:46 Dose: 3 ml Amiodarone HCl (Cordarone) 200 mg PO DAILY [facility] Calcium Carbonate (Oscal) 500 mg PO DAILY [facility] Last Admin: 09/21/17 09:33 Dose: 500 mg Carvedilol (Coreg) 3.125 mg PO BID [facility] Last Admin: 09/21/17 17:46 Dose: 3.125 mg Collagenase (Santyl) 0 gm TOP DAILY [facility] Last Admin: 09/21/17 09:37 Dose: 1 applic Doxercalciferol (Hectorol) 0.5 mcg PO DAILY [facility] Last Admin: 09/21/17 09:33 Dose: 0.5 mcg Furosemide (Lasix) 40 mg IV DAILY [facility] Heparin Sodium (Porcine) (Heparin) 5,000 units SC Q12 JEANA PRN Reason: Protocol Last Admin: 09/21/17 22:28 Dose: 5,000 units Meropenem (Merrem Iv 1 Gm Premix) 50 mls @ 100 mls/hr IVPB Q12 JEANA PRN Reason: Protocol Stop: 09/29/17 10:01 Last Admin: 09/21/17 22:25 Dose: 100 mls/hr Ibuprofen (Motrin Tab) 600 mg PO Q6H PRN PRN Reason: Fever >100.4 F Last Admin: 09/22/17 02:43 Dose: 600 mg Insulin Human Regular (Humulin R Med) 0 units SC ACHS JEANA PRN Reason: Protocol Last Admin: 09/21/17 22:29 Dose: Not Given Levothyroxine Sodium (Synthroid) 100 mcg PO 0600 [facility] Last Admin: 09/22/17 05:45 Dose: 100 mcg Montelukast Sodium (Singulair) 10 mg PO HS [facility] Last Admin: 09/21/17 22:28 Dose: 10 mg Pantoprazole Sodium (Protonix Ec Tab) 40 mg PO 0600 [facility] Last Admin: 09/22/17 06:42 Dose: 40 mg Polyethylene Glycol (Miralax) 17 gm PO DAILY [facility] Last Admin: 09/21/17 09:36 Dose: 17 gm - Labs Labs: 09/22/17 05:10 09/22/17 05:03 PT 13.9 SECONDS (9.4-12.5) H 09/19/17 19:40 INR 1.27 (0.93-1.08) H 09/19/17 19:40 APTT 23.6 Seconds (25.1-36.5) L 09/19/17 19:40 - Constitutional Appears: Chronically Ill - Head Exam Head Exam: NORMAL INSPECTION - ENT Exam ENT Exam: Mucous Membranes Moist - Neck Exam Neck Exam: absent: Lymphadenopathy, Meningismus - Respiratory Exam Respiratory Exam: Decreased Breath Sounds Additional comments: right anterior chest wall port site clean and non-tender - Cardiovascular Exam Cardiovascular Exam: +S1, +S2 - GI/Abdominal Exam GI & Abdominal Exam: Soft. absent: Tenderness Assessment and Plan - Assessment and Plan (Free Text) Plan: Assessment severe sepsis with acute renal failure due to E. 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 diff. 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 coli will also get duplex ultrasound of the port area and 2D echo; will also repeat blood cx from the port and a peripheral vein will monitor clinically
--- NOTE | 2017-09-22 10:51 | PN ---
DATE: REASON FOR CONSULTATION: History of cardiomyopathy, coronary artery disease, CABG, admitted with urinary tract infection, sepsis, defibrillator went off. SUBJECTIVE: The patient denies any chest pain, shortness of breath, or any palpitation. OBJECTIVE: GENERAL: Lying flat in the bed, not in apparent distress. Awaiting to be transferred to telemetry. VITAL SIGNS: As follows, temperature 102 rectal, heart rate 64, blood pressure 120/91. HEENT: PERRLA. Extraocular muscles intact. NECK: Supple. No carotid bruits or thyromegaly. CHEST: Clear to auscultation. HEART: S1 and S2, regular. ABDOMEN: Soft. EXTREMITIES: Clubbing and cyanosis negative. LABORATORY DATA: WBC 10.7, hemoglobin 8, hematocrit 25.4, platelet count 145. Chemistry shows sodium 133, potassium 4.3, chloride 98, carbon dioxide of 30, anion gap of 10, BUN 46, creatinine 1.6, AST 116, ALT 86, trending down, yesterday it was 138. Total protein 4.5, albumin 2.4. IMPRESSION: Urosepsis, urinary tract infection, tachycardia secondary to sepsis, fever, chills, defibrillator fast , tried to do antitachycardia device and later on generator shock green, renal insufficiency, coronary artery disease, coronary artery bypass graft, cardiomyopathy, mitral regurgitation, tricuspid regurgitation, pre and post coronary artery bypass graft, percutaneous transluminal coronary angioplasty, prostate cancer, gross fluid overload, improving. RECOMMENDATIONS: Continue loading amiodarone all and decrease to 200 mg daily. Continue Coreg. Continue gentle diuretics, broad-spectrum antibiotic. Followup blood cultures. Followup ID recommendation. The patient having fever. We will follow with you. CVS status is stable. Okay to be transferred to telemetry. Thank you for providing us the opportunity in taking care of the patient, Ziggy Amador. Mely Chavarria MD
--- NOTE | 2017-09-22 18:12 | CARD ---
APPROVED REPORT EXAM: Two-dimensional and M-mode echocardiogram with Doppler and color Doppler. 2D DIMENSIONS Left Atrium (2D)5.7 (1.6-4.0cm)IVSd1.4 (0.7-1.1cm) LVDd5.6 (3.9-5.9cm)PWd1.4 (0.7-1.1cm) LVDs4.7 (2.5-4.0cm)FS (%) 17.6 % LVEF (%)36.0 (>50%) M-Mode DIMENSIONS Aortic Root4.20 (2.2-3.7cm)Aortic Cusp Exc.1.70 (1.5-2.0cm) Aortic Valve AoV Peak Zrgcawuz691.0cm/sAoV VTI45.1cmAO Peak GR.20mmHg LVOT Peak Qorevkou61.2cm/sLVOT VTI14.40cmAO Mean GR.11mmHg Mitral Valve MV E Mncahyrp25.1cm/sMV A Coxqjzrb28.9cm/sE/A ratio0.8 TDI Lateral E' Peak V8.87cm/sMedial E' Peak V3.80cm/sE/Lateral E'8.2 E/Medial E'19.2 Tricuspid Valve TR Peak Kbircton954rd/sRAP KJCIDCGL63opRjMO Peak Gr.32mmHg [id number] LEFT VENTRICLE The Left Ventricle is borderline dilated. There is mild concentric left ventricular hypertrophy. The systolic function is mildly impaired.EF_35-40% Regional wall motion abnormalities noted. There is mild to moderate hypokinesis in the apical anterior wall. There is mild hypokinesis in the apical septal wall. Transmitral Doppler flow pattern is Grade III-reversible restrictive diastolic dysfunction. No left ventricle thrombus noted on this study. There is no ventricular septal defect visualized. There is no left ventricular aneurysm. There is no mass noted in the left ventricle. RIGHT VENTRICLE The right ventricle is mildly dilated. There is normal right ventricular wall thickness. Systolic function is borderline reduced. ATRIA The left atrium is moderately dilated. The right atrium size is normal. The interatrial septum is intact with no evidence for an atrial septal defect. AORTIC VALVE The aortic valve is calcified and displays decreased opening. No aortic regurgitation is present. Mild to moderate There is no aortic valvular vegetation. MITRAL VALVE The mitral valve is calcified but opens well. Mitral annular calcification is moderate. Mitral regurgitation is mild to moderate. There is no mitral valve stenosis. There is no evidence of mitral valve prolapse. TRICUSPID VALVE The tricuspid valve leaflets are thickened , but open well. There is mild tricuspid regurgitation.RVSP-42 mmof hg. There is no tricuspid valve stenosis. There is no tricuspid valve prolapse or vegetation. PULMONIC VALVE The pulmonic valve is not well visualized. GREAT VESSELS The aortic root is normal in size. The ascending aorta is normal in size. The pulmonary artery is normal. The IVC is normal in size and collapses >50% with inspiration. PERICARDIAL EFFUSION There is no pleural effusion. There is no pericardial effusion. <Conclusion> The Left Ventricle is borderline dilated. There is mild concentric left ventricular hypertrophy. The systolic function is mildly impaired.EF_35-40% Mild to moderate Mitral regurgitation is mild to moderate. There is mild tricuspid regurgitation.RVSP-42 mmof hg. The IVC is normal in size and collapses >50% with inspiration. There is no pericardial effusion. No Vegetation or thrombus noted.
[2017-09-23] MEDS: Albuterol-Ipratrop 3 mg / 0.5 (3 ml) UD IH SCH ×5 (01:40→21:15)
[2017-09-23] MEDS: Pantoprazole 40 mg EC Tab PO SCH (05:29)
[2017-09-23] MEDS: Levothyroxine 100 MCG TAB PO SCH (05:31)
[2017-09-23 07:15] LABS: BASO # 0.02 K/mm3 (0.0-2.0); BASO % 0.2 % (0.0-3.0); EOS # 0.1 (0.0-0.7); EOS % 1.3 % (1.5-5.0); GRAN # 7.77 (1.4-6.5); HEMATOCRIT 25.5 % (42.0-52.0); LYMPH # 0.8 (1.2-3.4); LYMPH % 8.2 % (22.0-35.0); MEAN CELL VOLUME 85.6 fl (80.0-105.0); MEAN CORPUSCULAR HEMOGLOBIN 26.8 pg (25.0-35.0); MEAN CORPUSCULAR HGB CONC 31.4 g/dl (31.0-37.0); MEAN PLATELET VOLUME 10.6 fl (7.0-11.0); MONO # 1.3 (0.1-0.6); MONO % 13.3 % (1.0-6.0); RED CELL DISTRIBUTION WIDTH 16.1 % (11.5-14.5); WHITE BLOOD COUNT 10.1 10^3/ul (4.5-11.0)
[2017-09-23 07:25] LABS: BILIRUBIN,TOTAL 0.3 mg/dL (0.2-1.3); CALCIUM 7.8 mg/dL (8.4-10.5); MAGNESIUM 2.2 mg/dL (1.7-2.2); PHOSPHOROUS 3.1 mg/dL (2.5-4.5); POTASSIUM 4.3 mmol/L (3.6-5.0)
[2017-09-23] MEDS: Insulin Reg-MEDIUM-Coverage SC SCH ×4 (07:39→22:01)
[2017-09-23] MEDS: Meropenem IV 1 gm in NS 50 ML IVPB SCH ×2 (09:21→22:19)
[2017-09-23] MEDS: Collagenase 250 Units/gm Ointment(30 gm) TOP SCH (09:23)
[2017-09-23] MEDS: POLYETHYLENE GLYCOL 3350 17 GM/Dose PACKET PO SCH (09:23)
--- NOTE | 2017-09-23 09:39 | PN ---
DATE: SUBJECTIVE: The patient is in [facility] in [place]. The patient was admitted with an episode of urinary tract infection, sepsis. The patient also had dysfunction of the cardiac pacemaker and defibrillator. The patient had ventricular tachycardia. He was defibrillated to normal sinus rhythm. The patient has been found to have sepsis and congestive heart failure. The patient is in the ICU and treated with medication to control his current urinary tract infection as well as his congestive heart failure. PHYSICAL EXAMINATION: VITAL SIGNS: Pulse is 61, blood pressure is 120/50. The patient's O2 sat is 90% on 2L of oxygen. HEENT: Head is normocephalic. LUNGS: Crepitations are present bilateral. HEART: Normal sinus rhythm. S1 and S2 present. ABDOMEN: Soft. Liver and spleen not palpable. OPERATOR COATING FURNACE: The patient is conscious, rational, oriented. No focal neurological deficit. IMPRESSION: The patient has numerous medical diagnosis. He has been treated for congestive heart failure, congestive cardiomyopathy, hypothyroidism, diabetes mellitus, chronic lung disease, gastritis, gastric ulcer disease. The patient's examination of the perineal area shows evidence of an abscess, which is at this time chronic involving the left buttock close to the anal orifice. The mass itself on palpation is tender. MEDICATIONS: At this time, the patient is on amiodarone 200 mg daily. The patient is on carvedilol, which is Coreg 3.125 mg b.i.d. The patient is on Hectorol. The patient is on Lasix 40 mg IV daily. The patient is on meropenem 1 g q. 12 hours. The patient is on calcium carbonate, pantoprazole. The patient is getting wound care of the left foot for ulcer in the heel. The patient is also getting montelukast, which is Singulair 10 mg daily for chronic asthmatic condition, Synthroid 100 mcg daily for hypothyroidism, which is secondary to amiodarone treatment. The patient's condition seem to be improving. The patient has all medications administered as needed. The patient will be followed up. Giselle Polk MD
--- NOTE | 2017-09-23 11:19 | CP.PCM.PN ---
Subjective - Date & Time of Evaluation Date of Evaluation: 09/23/17 Time of Evaluation: 11:00 - Subjective Subjective: Comfortable on a chair, no fevers overnight, no diarrhea. Objective - Vital Signs/Intake and Output Vital Signs (last 24 hours): Temp Pulse Resp BP Pulse Ox 99.8 F H 61 33 H 122/48 L 90 L 09/23/17 07:59 09/23/17 09:20 09/23/17 08:00 09/23/17 09:20 09/23/17 08:00 Intake and Output: 09/23/17 09/23/17 06:59 18:59 Intake Total 100 Output Total 1200 Balance -1100 - Medications Medications: Current Medications Acetaminophen (Tylenol 325mg Tab) 650 mg PO Q6H PRN PRN Reason: Fever >100.4 F Last Admin: 09/23/17 05:34 Dose: 650 mg Albuterol/Ipratropium (Duoneb 3 Mg/0.5 Mg (3 Ml) Ud) 3 ml IH [id number] [facility] Last Admin: 09/23/17 08:51 Dose: 3 ml Amiodarone HCl (Cordarone) 200 mg PO DAILY [facility] Last Admin: 09/23/17 09:20 Dose: 200 mg Calcium Carbonate (Oscal) 500 mg PO DAILY [facility] Last Admin: 09/23/17 09:15 Dose: 500 mg Carvedilol (Coreg) 3.125 mg PO BID [facility] Last Admin: 09/23/17 09:20 Dose: 3.125 mg Collagenase (Santyl) 0 gm TOP DAILY [facility] Last Admin: 09/23/17 09:23 Dose: 1 applic Doxercalciferol (Hectorol) 0.5 mcg PO DAILY [facility] Last Admin: 09/23/17 09:15 Dose: 0.5 mcg Furosemide (Lasix) 40 mg IV DAILY [facility] Last Admin: 09/23/17 09:16 Dose: 40 mg Heparin Sodium (Porcine) (Heparin) 5,000 units SC Q12 [facility] PRN Reason: Protocol Last Admin: 09/23/17 09:15 Dose: 5,000 units Meropenem (Merrem Iv 1 Gm Premix) 50 mls @ 100 mls/hr IVPB Q12 [facility] PRN Reason: Protocol Stop: 09/29/17 10:01 Last Admin: 09/23/17 09:21 Dose: 100 mls/hr Insulin Human Regular (Humulin R Med) 0 units SC ACHS [facility] PRN Reason: Protocol Last Admin: 09/23/17 07:39 Dose: Not Given Levothyroxine Sodium (Synthroid) 100 mcg PO 0600 [facility] Last Admin: 09/23/17 05:31 Dose: 100 mcg Montelukast Sodium (Singulair) 10 mg PO HS [facility] Last Admin: 09/22/17 21:10 Dose: 10 mg Pantoprazole Sodium (Protonix Ec Tab) 40 mg PO 0600 [facility] Last Admin: 09/23/17 05:29 Dose: 40 mg Polyethylene Glycol (Miralax) 17 gm PO DAILY [facility] Last Admin: 09/23/17 09:23 Dose: 17 gm - Labs Labs: 09/23/17 06:30 09/23/17 06:30 PT 13.9 SECONDS (9.4-12.5) H 09/19/17 19:40 INR 1.27 (0.93-1.08) H 09/19/17 19:40 APTT 23.6 Seconds (25.1-36.5) L 09/19/17 19:40 - Constitutional Appears: Chronically Ill - Head Exam Head Exam: NORMAL INSPECTION - ENT Exam ENT Exam: Mucous Membranes Moist - Neck Exam Neck Exam: absent: Meningismus - Respiratory Exam Respiratory Exam: Decreased Breath Sounds - Cardiovascular Exam Cardiovascular Exam: +S1, +S2 - GI/Abdominal Exam GI & Abdominal Exam: Soft. absent: Tenderness Assessment and Plan - Assessment and Plan (Free Text) Plan: Assessment severe sepsis with acute renal failure due to E. 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 diff. 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 coli follow up results of the duplex ultrasound of the port area; 2D echo does not show vegetations; follow up repeat blood cx taken from the port and a peripheral vein 09/22/2017 will continue to monitor clinically
--- NOTE | 2017-09-23 12:39 | PN ---
DATE: 09/22/2017 REASON FOR CONSULTATION AND FOLLOWUP: History of cardiomyopathy, coronary artery disease, CABG, admitted with urinary tract infection, sepsis, defibrillator went off twice. SUBJECTIVE: The patient denies any chest pain, shortness of breath or any palpitation. OBJECTIVE: GENERAL: Not in apparent distress. VITAL SIGNS: As follows, temperature 99.8, heart rate 60 and blood pressure 122/48. HEENT: PERRLA. Extraocular muscles intact. NECK: Supple. No carotid bruits or thyromegaly. CHEST: Clear to auscultation. HEART: S1 and S2, regular. ABDOMEN: Soft. EXTREMITIES: Clubbing and cyanosis negative. LABORATORY DATA: Blood workup as follows: WBC 10.1, hemoglobin 8, hematocrit 25.5 and platelet count 160. Chemistry shows sodium 130, potassium 4.6, chloride 98, carbon dioxide 31, anion gap of 8, BUN of 47 and creatinine 1.4. Total protein is 5, albumin 2.5, albumin/globulin ratio 1. IMPRESSION: Protein-calorie malnutrition, moderate, this is not present on admission, urinary tract infection, sepsis, urosepsis, fever, chills, defibrillator went off initially, tried to pace antitachycardia from defibrillator, but that has generated into ventricular fibrillation,so patient has been shocked twice and defibrillator went off twice at 7:41 and 7:43, coronary artery disease, coronary artery bypass graft, paroxysmal atrial fibrillation, history of deep vein thrombosis, pulmonary embolism in the past, off anticoagulation because of genitourinary bleed, history of genitourinary bleed, history of indwelling Avendano catheter, history of prostate carcinoma with metastases, renal insufficiency, cardiomyopathy, paroxysmal atrial fibrillation, history of coronary artery bypass graft, history of post coronary artery bypass graft percutaneous transluminal coronary angioplasty, history of mitral valve repair, history of automatic implantable cardioverter defibrillator. The patient had echocardiography done yesterday, that shows ejection fraction of 35 to 40, whlt-cg-capyxuva aortic stenosis, ilcs-hz-puhfjwcm mitral regurgitation, mild tricuspid regurgitation, right ventricular systolic pressure of 42 mmHg. RECOMMENDATIONS: Continue gentle diuretics, loaded with amiodarone now, change amiodarone 200 mg daily. Continue Coreg 3.125 mg daily. Continue DVT prophylaxis. Continue levothyroxine, gentle diuretics. Keeping fluid negative balance, monitor for renal function. Supplement electrolytes as needed. Monitor TSH 3.99. The patient is on amiodarone, broad-spectrum antibiotics. Blood culture, first part grew E. coli, second part sites are negative. Repeat blood culture. Okay to be transferred to telemetry when the bed is available. Blood culture has been done yesterday. Again, repeat blood culture, awaiting for the repeat blood culture. Admitting WBC is 16, now is trended down to 10.1. We will follow with you. Thank you Dr. Polk for providing us the opportunity in taking care of Ziggy Perry. Mely Chavarria MD
--- NOTE | 2017-09-23 12:39 | CP.PCM.CON ---
History of Present Illness - History of Present Illness History of Present Illness: General Surgery- Dr. Bishop 87M pmhx of prostate ca w/ mets, presented to [facility] after his pacemaker fired twice. intially patient had been having chills and shortness of breath. Surgery was consulted for perianal abscess. Patient denies associated pain with the abscess, drainage or other previous abscesses in that area. Currently denies fevers, chills, nausea, vomiting, diarrhea. PMH: prostate Ca mets, indwelling schroeder cath, insulin dependent diabetes, HTN, PSH: CABG, AICD, portacath R. Chest ALL: IV & Oral contrast, levofloxacin SocialHx: Denies ETOH, tobacco, recreational drug use Review of Systems - Review of Systems All systems: reviewed and no additional remarkable complaints except - Constitutional Constitutional: As Per HPI Past Patient History - Infectious Disease Hx of Infectious Diseases: None - Tetanus Immunizations Tetanus Immunization: Unknown - Past Medical History & Family History Past Medical History?: Yes - Past Social History Smoking Status: Never Smoked - CARDIAC Hx Cardiac Disorders: Yes - PULMONARY Hx Chronic Obstructive Pulmonary Disease (COPD): Yes - NEUROLOGICAL Hx Neurological Disorder: No Hx Paralysis: No - HEENT Hx HEENT Problems: Yes ([place]) Hx Cataracts: Yes (WITH b/t SURGERY) Hx Glaucoma: Yes - RENAL Hx Renal Failure: Yes - ENDOCRINE/METABOLIC Hx Diabetes Mellitus Type 2: Yes Hx Hypothyroidism: Yes - HEMATOLOGICAL/ONCOLOGICAL Hx Blood Transfusions: Yes Hx Blood Transfusion Reaction: No - INTEGUMENTARY Other/Comment: multiple skin discolorations and tatoos both arms, multiple brown skin discolorations ble - MUSCULOSKELETAL/RHEUMATOLOGICAL Hx Musculoskeletal Disorders: No - GASTROINTESTINAL Hx Gastrointestinal Disorders: No - GENITOURINARY/GYNECOLOGICAL Hx Genitourinary Disorders: Yes Hx Reproductive Disorders: No - PSYCHIATRIC Hx Emotional Abuse: No Hx Physical Abuse: No Hx Substance Use: No - SURGICAL HISTORY Other/Comment: L foot surgery. R chest port - ANESTHESIA Hx Anesthesia: Yes Hx Anesthesia Reactions: No Hx Malignant Hyperthermia: No Meds Allergies/Adverse Reactions: Allergies Allergy/AdvReac Type Severity Reaction Status Date / Time Iodinated Contrast- Oral and Allergy ANAPHYLAXIS Verified 09/19/17 18:59 IV Dye levofloxacin [From Levaquin] Allergy ANAPHYLAXIS Verified 09/19/17 18:59 - Medications Medications: Current Medications Acetaminophen (Tylenol 325mg Tab) 650 mg PO Q6H PRN PRN Reason: Fever >100.4 F Last Admin: 09/23/17 05:34 Dose: 650 mg Albuterol/Ipratropium (Duoneb 3 Mg/0.5 Mg (3 Ml) Ud) 3 ml IH [id number] [facility] Last Admin: 09/23/17 08:51 Dose: 3 ml Amiodarone HCl (Cordarone) 200 mg PO DAILY [facility] Last Admin: 09/23/17 09:20 Dose: 200 mg Calcium Carbonate (Oscal) 500 mg PO DAILY [facility] Last Admin: 09/23/17 09:15 Dose: 500 mg Carvedilol (Coreg) 3.125 mg PO BID [facility] Last Admin: 09/23/17 09:20 Dose: 3.125 mg Collagenase (Santyl) 0 gm TOP DAILY [facility] Last Admin: 09/23/17 09:23 Dose: 1 applic Doxercalciferol (Hectorol) 0.5 mcg PO DAILY [facility] Last Admin: 09/23/17 09:15 Dose: 0.5 mcg Furosemide (Lasix) 40 mg IV DAILY [facility] Last Admin: 09/23/17 09:16 Dose: 40 mg Heparin Sodium (Porcine) (Heparin) 5,000 units SC Q12 [facility] PRN Reason: Protocol Last Admin: 09/23/17 09:15 Dose: 5,000 units Meropenem (Merrem Iv 1 Gm Premix) 50 mls @ 100 mls/hr IVPB Q12 [facility] PRN Reason: Protocol Stop: 09/29/17 10:01 Last Admin: 09/23/17 09:21 Dose: 100 mls/hr Insulin Human Regular (Humulin R Med) 0 units SC ACHS [facility] PRN Reason: Protocol Last Admin: 09/23/17 12:23 Dose: 1 units Levothyroxine Sodium (Synthroid) 100 mcg PO 0600 [facility] Last Admin: 09/23/17 05:31 Dose: 100 mcg Montelukast Sodium (Singulair) 10 mg PO HS [facility] Last Admin: 09/22/17 21:10 Dose: 10 mg Pantoprazole Sodium (Protonix Ec Tab) 40 mg PO 0600 [facility] Last Admin: 09/23/17 05:29 Dose: 40 mg Polyethylene Glycol (Miralax) 17 gm PO DAILY [facility] Last Admin: 09/23/17 09:23 Dose: 17 gm Physical Exam - Constitutional Appears: Non-toxic, No Acute Distress - Head Exam Head Exam: ATRAUMATIC - Eye Exam Eye Exam: EOMI. absent: Scleral icterus - ENT Exam ENT Exam: Mucous Membranes Moist - Respiratory Exam Respiratory Exam: NORMAL BREATHING PATTERN. absent: Accessory Muscle Use, Respiratory Distress - Cardiovascular Exam Cardiovascular Exam: +S1, +S2. absent: Bradycardia, Tachycardia - GI/Abdominal Exam GI & Abdominal Exam: Soft. absent: Distended, Firm, Guarding, Rigid, Tenderness - Rectal Exam Additional comments: christen-anal abscess at the 7o'clock position indurated. no active draining at this time - Neurological Exam Neurological exam: Alert, Oriented x3 - Psychiatric Exam Psychiatric exam: Normal Affect - Skin Skin Exam: Warm Results - Vital Signs Recent Vital Signs: Last Vital Signs Temp 99.8 F H 09/23/17 07:59 Pulse 64 09/23/17 10:00 Resp 33 H 09/23/17 08:00 BP 122/48 L 09/23/17 09:20 Pulse Ox 90 L 09/23/17 08:00 - Labs Result Diagrams: 09/23/17 06:30 09/23/17 06:30 Labs: Laboratory Results - last 24 hr 09/22/17 09/22/17 09/23/17 15:40 21:05 06:30 WBC 10.1 RBC 2.98 L Hgb 8.0 L Hct 25.5 L MCV 85.6 MCH 26.8 MCHC 31.4 RDW 16.1 H Plt Count 160 MPV 10.6 Gran % 77.0 H Lymph % (Auto) 8.2 L Webster % (Auto) 13.3 H Eos % (Auto) 1.3 L Baso % (Auto) 0.2 Gran # 7.77 H Lymph # 0.8 L Webster # 1.3 H Eos # 0.1 Baso # 0.02 Sodium Potassium Chloride Carbon Dioxide Anion Gap BUN Creatinine Est GFR ( Amer) Est GFR (Non-Af Amer) POC Glucose (mg/dL) 245 H 221 H Random Glucose Calcium Phosphorus Magnesium Total Bilirubin AST ALT Alkaline Phosphatase Total Protein Albumin Globulin Albumin/Globulin Ratio 09/23/17 09/23/17 09/23/17 06:30 07:38 12:03 WBC RBC Hgb Hct MCV MCH MCHC RDW Plt Count MPV Gran % Lymph % (Auto) Webster % (Auto) Eos % (Auto) Baso % (Auto) Gran # Lymph # Webster # Eos # Baso # Sodium 133 Potassium 4.3 Chloride 98 Carbon Dioxide 31 Anion Gap 8 L BUN 47 H Creatinine 1.4 Est GFR ( Amer) 58 Est GFR (Non-Af Amer) 48 POC Glucose (mg/dL) 166 H 190 H Random Glucose 120 H Calcium 7.8 L Phosphorus 3.1 Magnesium 2.2 Total Bilirubin 0.3 AST 90 H D ALT 75 H Alkaline Phosphatase 262 H Total Protein 5.0 L Albumin 2.5 L Globulin 2.5 Albumin/Globulin Ratio 1.0 L Assessment & Plan - Assessment and Plan (Free Text) Assessment: 87M right side perianal abscess Plan: - warm compresses - will re-asses wound for possible bedside I&D - continue medical management per ICU team - discussed w/ Dr. Bishop surgical attending Joel Brower PGY1
[2017-09-23] MEDS: TraMADol/Apap 37.5/325 mg Tab PO PRN ×2 (17:20→23:37)
[2017-09-24] MEDS: Albuterol-Ipratrop 3 mg / 0.5 (3 ml) UD IH SCH ×4 (03:15→19:42)
[2017-09-24] MEDS: TraMADol/Apap 37.5/325 mg Tab PO PRN (06:38)
[2017-09-24] MEDS: Levothyroxine 100 MCG TAB PO SCH (06:38)
[2017-09-24] MEDS: Pantoprazole 40 mg EC Tab PO SCH (06:38)
[2017-09-24 08:06] LABS: ALKALINE PHOSPHATASE 262 U/L (38-126); ALT/SGPT 73 U/L (7-56); AST/SGOT 89 U/L (17-59); BILIRUBIN,TOTAL 0.4 mg/dL (0.2-1.3); BLOOD UREA NITROGEN 43 mg/dL (7-21); CALCIUM 7.8 mg/dL (8.4-10.5); CARBON DIOXIDE 31 mmol/L (21-33); CHLORIDE 97 mmol/L (98-107); GFR AFRICAN-AMERICAN > 60; GLUCOSE,RANDOM 126 mg/dL (70-110); MAGNESIUM 2.4 mg/dL (1.7-2.2); PHOSPHOROUS 2.9 mg/dL (2.5-4.5); POTASSIUM 4.2 mmol/L (3.6-5.0); SODIUM 134 mmol/L (132-148)
[2017-09-24 08:09] LABS: BASO # 0.02 K/mm3 (0.0-2.0); BASO % 0.3 % (0.0-3.0); EOS # 0.1 (0.0-0.7); EOS % 1.6 % (1.5-5.0); GRAN # 5.81 (1.4-6.5); HEMATOCRIT 25.5 % (42.0-52.0); LYMPH % 12.6 % (22.0-35.0); MEAN CELL VOLUME 86.1 fl (80.0-105.0); MEAN CORPUSCULAR HGB CONC 31.4 g/dl (31.0-37.0); MEAN PLATELET VOLUME 10.9 fl (7.0-11.0); MONO % 12.5 % (1.0-6.0); RED CELL DISTRIBUTION WIDTH 16.3 % (11.5-14.5)
[2017-09-24] MEDS: Insulin Reg-MEDIUM-Coverage SC SCH ×4 (08:11→22:53)
--- NOTE | 2017-09-24 08:22 | CP.PCM.PN ---
Subjective - Date & Time of Evaluation Date of Evaluation: 09/24/17 Time of Evaluation: 08:18 - Subjective Subjective: General Surgery- Dr. Bishop Patient seen and examined at bedside this AM. No acute events overnight. in dwelling schroeder in place. no drainage or bleeding from christen-anal abscess. denies fevers, chills, chest pain, nausea, vomiting, diarrhea. Objective - Vital Signs/Intake and Output Vital Signs (last 24 hours): Temp Pulse Resp BP Pulse Ox 98.0 F 64 20 117/65 95 09/24/17 06:00 09/24/17 06:00 09/24/17 06:00 09/24/17 06:00 09/24/17 06:00 Intake and Output: 09/24/17 09/24/17 06:59 18:59 Intake Total 960 Output Total 700 Balance 260 - Medications Medications: Current Medications Acetaminophen (Tylenol 325mg Tab) 650 mg PO Q6H PRN PRN Reason: Fever >100.4 F Last Admin: 09/24/17 02:15 Dose: 650 mg Albuterol/Ipratropium (Duoneb 3 Mg/0.5 Mg (3 Ml) Ud) 3 ml IH [id number] [facility] Last Admin: 09/24/17 03:15 Dose: 3 ml Amiodarone HCl (Cordarone) 200 mg PO DAILY [facility] Last Admin: 09/23/17 09:20 Dose: 200 mg Calcium Carbonate (Oscal) 500 mg PO DAILY [facility] Last Admin: 09/23/17 09:15 Dose: 500 mg Carvedilol (Coreg) 3.125 mg PO BID [facility] Last Admin: 09/23/17 17:20 Dose: 3.125 mg Collagenase (Santyl) 0 gm TOP DAILY [facility] Last Admin: 09/23/17 09:23 Dose: 1 applic Doxercalciferol (Hectorol) 0.5 mcg PO DAILY [facility] Last Admin: 09/23/17 09:15 Dose: 0.5 mcg Furosemide (Lasix) 40 mg IV DAILY [facility] Last Admin: 09/23/17 09:16 Dose: 40 mg Heparin Sodium (Porcine) (Heparin) 5,000 units SC Q12 [facility] PRN Reason: Protocol Last Admin: 09/23/17 22:18 Dose: 5,000 units Cefazolin Sodium (Ancef 1gm In Ns) 1 gm in 100 mls @ 100 mls/hr IVPB Q8 [facility] PRN Reason: Protocol Insulin Human Regular (Humulin R Med) 0 units SC ACHS [facility] PRN Reason: Protocol Last Admin: 09/23/17 22:01 Dose: Not Given Levothyroxine Sodium (Synthroid) 100 mcg PO 0600 [facility] Last Admin: 09/24/17 06:38 Dose: 100 mcg Montelukast Sodium (Singulair) 10 mg PO HS [facility] Last Admin: 09/23/17 22:20 Dose: 10 mg Pantoprazole Sodium (Protonix Ec Tab) 40 mg PO 0600 [facility] Last Admin: 09/24/17 06:38 Dose: 40 mg Polyethylene Glycol (Miralax) 17 gm PO DAILY [facility] Last Admin: 09/23/17 09:23 Dose: 17 gm Tramadol/Acetaminophen (Ultracet 37.5/325 Mg) 1 tab PO Q6H PRN PRN Reason: Pain, moderate (4-7) Last Admin: 09/24/17 06:38 Dose: 1 tab - Labs Labs: 09/24/17 07:30 09/24/17 07:30 PT 13.9 SECONDS (9.4-12.5) H 09/19/17 19:40 INR 1.27 (0.93-1.08) H 09/19/17 19:40 APTT 23.6 Seconds (25.1-36.5) L 09/19/17 19:40 - Constitutional Appears: Non-toxic, No Acute Distress - Head Exam Head Exam: ATRAUMATIC - Eye Exam Eye Exam: EOMI. absent: Scleral icterus - Respiratory Exam Respiratory Exam: NORMAL BREATHING PATTERN. absent: Accessory Muscle Use, Respiratory Distress - Cardiovascular Exam Cardiovascular Exam: +S1, +S2. absent: Bradycardia, Tachycardia - GI/Abdominal Exam GI & Abdominal Exam: Soft. absent: Distended, Firm, Guarding, Rigid, Tenderness - Rectal Exam Additional comments: sacral decub ulcer. covered w/ optifoam non-draining indurated no fluctuant abscess at the 7 o'clock position 3cm from the anal verge - Extremities Exam Extremities Exam: absent: Calf Tenderness - Neurological Exam Neurological Exam: Alert, Awake, Oriented x3 - Psychiatric Exam Psychiatric exam: Normal Affect - Skin Skin Exam: Warm Assessment and Plan - Assessment and Plan (Free Text) Assessment: 87M w/ christen-anal abscess Plan: - continue warm compresses - will observe for now * will reasses to determine if abscess requires incision and drainage - medical management per primary and ICU team - discussed w/ Dr. Bishop surgical attending Joel Brower PGY1
--- NOTE | 2017-09-24 08:38 | CP.PCM.PN ---
Subjective - Date & Time of Evaluation Date of Evaluation: 09/24/17 Time of Evaluation: 08:15 - Subjective Subjective: Patient is seen this morning. He complains of pain in both of his legs. Objective - Vital Signs/Intake and Output Vital Signs (last 24 hours): Temp Pulse Resp BP Pulse Ox 98.0 F 64 20 117/65 95 09/24/17 06:00 09/24/17 06:00 09/24/17 06:00 09/24/17 06:00 09/24/17 06:00 Intake and Output: 09/24/17 09/24/17 06:59 18:59 Intake Total 960 Output Total 700 Balance 260 - Medications Medications: Current Medications Acetaminophen (Tylenol 325mg Tab) 650 mg PO Q6H PRN PRN Reason: Fever >100.4 F Last Admin: 09/24/17 02:15 Dose: 650 mg Albuterol/Ipratropium (Duoneb 3 Mg/0.5 Mg (3 Ml) Ud) 3 ml IH [id number] [facility] Last Admin: 09/24/17 03:15 Dose: 3 ml Amiodarone HCl (Cordarone) 200 mg PO DAILY [facility] Last Admin: 09/23/17 09:20 Dose: 200 mg Calcium Carbonate (Oscal) 500 mg PO DAILY [facility] Last Admin: 09/23/17 09:15 Dose: 500 mg Carvedilol (Coreg) 3.125 mg PO BID [facility] Last Admin: 09/23/17 17:20 Dose: 3.125 mg Collagenase (Santyl) 0 gm TOP DAILY [facility] Last Admin: 09/23/17 09:23 Dose: 1 applic Doxercalciferol (Hectorol) 0.5 mcg PO DAILY [facility] Last Admin: 09/23/17 09:15 Dose: 0.5 mcg Furosemide (Lasix) 40 mg IV DAILY [facility] Last Admin: 09/23/17 09:16 Dose: 40 mg Heparin Sodium (Porcine) (Heparin) 5,000 units SC Q12 [facility] PRN Reason: Protocol Last Admin: 09/23/17 22:18 Dose: 5,000 units Cefazolin Sodium (Ancef 1gm In Ns) 1 gm in 100 mls @ 100 mls/hr IVPB Q8 [facility] PRN Reason: Protocol Insulin Human Regular (Humulin R Med) 0 units SC ACHS [facility] PRN Reason: Protocol Last Admin: 09/23/17 22:01 Dose: Not Given Levothyroxine Sodium (Synthroid) 100 mcg PO 0600 [facility] Last Admin: 09/24/17 06:38 Dose: 100 mcg Montelukast Sodium (Singulair) 10 mg PO HS [facility] Last Admin: 09/23/17 22:20 Dose: 10 mg Pantoprazole Sodium (Protonix Ec Tab) 40 mg PO 0600 [facility] Last Admin: 09/24/17 06:38 Dose: 40 mg Polyethylene Glycol (Miralax) 17 gm PO DAILY [facility] Last Admin: 09/23/17 09:23 Dose: 17 gm Tramadol/Acetaminophen (Ultracet 37.5/325 Mg) 1 tab PO Q6H PRN PRN Reason: Pain, moderate (4-7) Last Admin: 09/24/17 06:38 Dose: 1 tab - Labs Labs: 09/24/17 07:30 09/24/17 07:30 PT 13.9 SECONDS (9.4-12.5) H 09/19/17 19:40 INR 1.27 (0.93-1.08) H 09/19/17 19:40 APTT 23.6 Seconds (25.1-36.5) L 09/19/17 19:40 - Constitutional Appears: No Acute Distress - Head Exam Head Exam: ATRAUMATIC, NORMOCEPHALIC - Respiratory Exam Respiratory Exam: Clear to Ausculation Bilateral, NORMAL BREATHING PATTERN - Cardiovascular Exam Cardiovascular Exam: +S1, +S2 - GI/Abdominal Exam GI & Abdominal Exam: Soft, Normal Bowel Sounds. 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 He was given Ultracet yesterday, but says the pain is more frequent. Will discontinue Ultracet and start Ultram every 4 hours as needed for pain. continue antibiotics as per infectious disease. Urine culture growing proteus mirabilis, and e. coli. one blood culture also growing E. coli. continue wound care for left heel ulcer.
[2017-09-24] MEDS: ceFAZolin 1 gm in NS 1 GM/100 ML BAG IVPB SCH ×3 (08:39→22:53)
[2017-09-24] MEDS: POLYETHYLENE GLYCOL 3350 17 GM/Dose PACKET PO SCH (09:16)
[2017-09-24] MEDS: Collagenase 250 Units/gm Ointment(30 gm) TOP SCH (09:16)
--- NOTE | 2017-09-24 10:50 | CP.PCM.PN ---
Subjective - Date & Time of Evaluation Date of Evaluation: 09/24/17 Time of Evaluation: 09:50 - Subjective Subjective: Patient is feeling better, no fevers overnight, no diarrhea. Objective - Vital Signs/Intake and Output Vital Signs (last 24 hours): Temp Pulse Resp BP Pulse Ox 98.0 F 64 20 117/65 95 09/24/17 06:00 09/24/17 06:00 09/24/17 06:00 09/24/17 06:00 09/24/17 06:00 Intake and Output: 09/24/17 09/24/17 06:59 18:59 Intake Total 960 Output Total 700 Balance 260 - Medications Medications: Current Medications Acetaminophen (Tylenol 325mg Tab) 650 mg PO Q6H PRN PRN Reason: Fever >100.4 F Last Admin: 09/24/17 02:15 Dose: 650 mg Albuterol/Ipratropium (Duoneb 3 Mg/0.5 Mg (3 Ml) Ud) 3 ml IH [id number] [facility] Last Admin: 09/24/17 03:15 Dose: 3 ml Amiodarone HCl (Cordarone) 200 mg PO DAILY [facility] Last Admin: 09/23/17 09:20 Dose: 200 mg Calcium Carbonate (Oscal) 500 mg PO DAILY [facility] Last Admin: 09/23/17 09:15 Dose: 500 mg Carvedilol (Coreg) 3.125 mg PO BID [facility] Last Admin: 09/23/17 17:20 Dose: 3.125 mg Collagenase (Santyl) 0 gm TOP DAILY [facility] Last Admin: 09/23/17 09:23 Dose: 1 applic Doxercalciferol (Hectorol) 0.5 mcg PO DAILY [facility] Last Admin: 09/23/17 09:15 Dose: 0.5 mcg Furosemide (Lasix) 40 mg IV DAILY [facility] Last Admin: 09/23/17 09:16 Dose: 40 mg Heparin Sodium (Porcine) (Heparin) 5,000 units SC Q12 [facility] PRN Reason: Protocol Last Admin: 09/23/17 22:18 Dose: 5,000 units Insulin Human Regular (Humulin R Med) 0 units SC ACHS [facility] PRN Reason: Protocol Last Admin: 09/23/17 22:01 Dose: Not Given Levothyroxine Sodium (Synthroid) 100 mcg PO 0600 [facility] Last Admin: 09/24/17 06:38 Dose: 100 mcg Montelukast Sodium (Singulair) 10 mg PO HS [facility] Last Admin: 09/23/17 22:20 Dose: 10 mg Pantoprazole Sodium (Protonix Ec Tab) 40 mg PO 0600 [facility] Last Admin: 09/24/17 06:38 Dose: 40 mg Polyethylene Glycol (Miralax) 17 gm PO DAILY [facility] Last Admin: 09/23/17 09:23 Dose: 17 gm Tramadol/Acetaminophen (Ultracet 37.5/325 Mg) 1 tab PO Q6H PRN PRN Reason: Pain, moderate (4-7) Last Admin: 09/24/17 06:38 Dose: 1 tab - Labs Labs: 09/23/17 06:30 09/23/17 06:30 PT 13.9 SECONDS (9.4-12.5) H 09/19/17 19:40 INR 1.27 (0.93-1.08) H 09/19/17 19:40 APTT 23.6 Seconds (25.1-36.5) L 09/19/17 19:40 - Constitutional Appears: Non-toxic - Head Exam Head Exam: NORMAL INSPECTION - ENT Exam ENT Exam: Mucous Membranes Moist - Neck Exam Neck Exam: absent: Meningismus - Respiratory Exam Respiratory Exam: Decreased Breath Sounds Additional comments: right anterior chest wall port in place - Cardiovascular Exam Cardiovascular Exam: +S1, +S2 - GI/Abdominal Exam GI & Abdominal Exam: Soft. absent: Tenderness Assessment and Plan - Assessment and Plan (Free Text) Plan: Assessment severe sepsis with acute renal failure due to E. 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 diff. associated diarrhea S/P lower urinary tract infection in a patient with indwelling Avendano catheter growing Carbapenem-resistant Klebsiella history of right foot necrotic ulcer with surrounding cellulitis UTI with Enterococcus and Klebsiella chronic renal failure history of DVT DM metastatic Prostate CA history of Enterococcus UTI chronic atrial fibrillation S/P pacemaker and ICD placement Plan urine cx showing E. coli and Proteus which are fajardo-sensitive, blood cx also showing fajardo-sensitive E. coli - will switch Merrem to Cefazolin follow up results of the duplex ultrasound of the port area; 2D echo does not show vegetations; follow up repeat blood cx taken 09/22/2017 from the port and a peripheral vein are negative so far will continue to monitor clinically
--- NOTE | 2017-09-24 13:16 | PN ---
DATE: 09/24/2017 REASON FOR CONSULTATION AND FOLLOWUP: History of cardiomyopathy, history of coronary artery disease, history of CABG, admitted with urinary tract infection, and sepsis, defibrillator went off twice. SUBJECTIVE: The patient denies any chest pain, shortness of breath or any palpitation. Feels a lot better. OBJECTIVE: GENERAL: Not in apparent distress, sitting on a easy chair. VITAL SIGNS: As follows, temperature afebrile, heart rate 64, and blood pressure 117/65. HEENT: PERRLA. Extraocular muscles intact. NECK: Supple. No carotid bruits or thyromegaly. CHEST: Clear to auscultation. HEART: S1 and S2 regular. ABDOMEN: Soft. EXTREMITIES: Clubbing and cyanosis negative. LABORATORY DATA: Blood workup as follows: WBC 8, hemoglobin 8, hematocrit 25.5, and platelet count 160. Chemistry shows sodium 134, potassium 4.2, chloride 97, carbon dioxide 31, anion gap of 11, BUN of 43, and creatinine 1.3. Total protein is 5, albumin 2.5, and albumin/globulin ratio 1. IMPRESSION: [id number] protein-calorie malnutrition, which was not present on admission; sepsis, urinary tract infection, gram-negative sepsis, anemia, coronary artery disease, coronary artery bypass graft, status post defibrillator went off twice because of the patient's sepsis; shaking initially; antitachycardia pacing was done with defibrillator, but later on it generated into ventricular fibrillation, so the patient had been shock twice at 7:41 p.m. and 7:43 p.m. on the day of admission, history of coronary artery disease, history of coronary artery bypass graft, history of paroxysmal atrial fibrillation, history of deep venous thrombosis, history of pulmonary embolism in the past, history of off anticoagulation because of gross hematuria, history of indwelling Avendano catheter, history of prostate cancer with metastasis, renal insufficiency, cardiomyopathy. The patient had a repeat echocardiography done yesterday that showed ejection fraction 35% to 40%, [id number] aortic stenosis, qyar-[id number] mitral regurgitation, mild tricuspid regurgitation, right ventricular systolic pressure of 42 mmHg. RECOMMENDATIONS: Continue amiodarone after being loaded 400 mg, continue 200 mg of amiodarone, continue Coreg 3.125, continue broad-spectrum antibiotic, Lasix to p.o. IV daily, we will change from tomorrow to p.o. We will follow with you. Repeat blood culture pending, after 24 hours negative. First blood culture, one part of gram Escherichia coli and in the urine also Escherichia coli was positive. We will follow with you. Monitored H and H. If it goes below 8, consider packed RBC transfusion infusion. In the interim, we will add multivitamin, iron preparation and also increase nutritional support with for protein-calorie malnutrition. Continue DVT prophylaxis. We will change furosemide to p.o. 8:00 a.m. and 2:00 p.m. The patient is hypercatabolic because of sepsis, needs more nutritional support as well as . Thank you Dr. Polk for providing us the opportunity in taking care of the patient, Perry Trinh. We will follow. Mely Chavarria MD
[2017-09-24] MEDS: Multivitamin Therapeutic Tab PO SCH (16:06)
[2017-09-24 23:58] LABS: AMIODARONE 1.6 mcg/mL (1.5-2.5); DESETHYLAMIODARONE 0.8 mcg/mL (1.5-2.5)
[2017-09-25] MEDS: Albuterol-Ipratrop 3 mg / 0.5 (3 ml) UD IH SCH ×4 (03:45→20:28)
[2017-09-25] MEDS: ceFAZolin 1 gm in NS 1 GM/100 ML BAG IVPB SCH ×3 (05:22→22:18)
[2017-09-25] MEDS: Pantoprazole 40 mg EC Tab PO SCH (05:25)
[2017-09-25] MEDS: Levothyroxine 100 MCG TAB PO SCH (05:25)
[2017-09-25 06:36] LABS: BASO # 0.02 K/mm3 (0.0-2.0); BASO % 0.2 % (0.0-3.0); EOS # 0.2 (0.0-0.7); EOS % 1.9 % (1.5-5.0); GRAN # 6.17 (1.4-6.5); GRAN % 72.1 % (50.0-68.0); HEMATOCRIT 26.7 % (42.0-52.0); LYMPH # 1.2 (1.2-3.4); LYMPH % 13.5 % (22.0-35.0); MEAN CELL VOLUME 85.9 fl (80.0-105.0); MEAN CORPUSCULAR HGB CONC 31.5 g/dl (31.0-37.0); MEAN PLATELET VOLUME 10.4 fl (7.0-11.0); MONO # 1.1 (0.1-0.6); MONO % 12.3 % (1.0-6.0); RED CELL DISTRIBUTION WIDTH 16.3 % (11.5-14.5); WHITE BLOOD COUNT 8.6 10^3/ul (4.5-11.0)
[2017-09-25 06:59] LABS: ALKALINE PHOSPHATASE 268 U/L (38-126); ALT/SGPT 63 U/L (7-56); AST/SGOT 86 U/L (17-59); BILIRUBIN,TOTAL 0.4 mg/dL (0.2-1.3); BLOOD UREA NITROGEN 40 mg/dL (7-21); CALCIUM 7.9 mg/dL (8.4-10.5); CARBON DIOXIDE 30 mmol/L (21-33); CHLORIDE 94 mmol/L (98-107); GFR AFRICAN-AMERICAN > 60; GLUCOSE,RANDOM 117 mg/dL (70-110); MAGNESIUM 2.3 mg/dL (1.7-2.2); PHOSPHOROUS 3.2 mg/dL (2.5-4.5); POTASSIUM 4.5 mmol/L (3.6-5.0); SODIUM 128 mmol/L (132-148); TOTAL PROTEIN 5.1 g/dL (5.8-8.3)
[2017-09-25] MEDS: Insulin Reg-MEDIUM-Coverage SC SCH ×4 (07:46→22:39)
[2017-09-25] MEDS: Multivitamin Therapeutic Tab PO SCH (07:52)
--- NOTE | 2017-09-25 08:08 | CP.PCM.PN ---
Subjective - Date & Time of Evaluation Date of Evaluation: 09/25/17 Time of Evaluation: 07:45 - Subjective Subjective: Patient is awaiting bed upstairs. He denies chest pain or shortness of breath. Objective - Vital Signs/Intake and Output Vital Signs (last 24 hours): Temp Pulse Resp BP Pulse Ox 99 F 60 27 H 116/69 99 09/25/17 04:41 09/25/17 04:21 09/25/17 04:00 09/25/17 07:51 09/25/17 04:00 - Medications Medications: Current Medications Acetaminophen (Tylenol 325mg Tab) 650 mg PO Q6H PRN PRN Reason: Fever >100.4 F Last Admin: 09/24/17 02:15 Dose: 650 mg Albuterol/Ipratropium (Duoneb 3 Mg/0.5 Mg (3 Ml) Ud) 3 ml IH [id number] [facility] Last Admin: 09/25/17 07:36 Dose: 3 ml Amiodarone HCl (Cordarone) 200 mg PO DAILY [facility] Last Admin: 09/24/17 09:13 Dose: 200 mg Calcium Carbonate (Oscal) 500 mg PO DAILY [facility] Last Admin: 09/24/17 09:16 Dose: 500 mg Carvedilol (Coreg) 3.125 mg PO BID [facility] Last Admin: 09/24/17 17:26 Dose: 3.125 mg Collagenase (Santyl) 0 gm TOP DAILY [facility] Last Admin: 09/24/17 09:16 Dose: 1 applic Doxercalciferol (Hectorol) 0.5 mcg PO DAILY [facility] Last Admin: 09/24/17 09:16 Dose: 0.5 mcg Ferrous Sulfate (Feosol) 324 mg PO TID [facility] Last Admin: 09/24/17 17:26 Dose: 324 mg Furosemide (Lasix) 40 mg PO 0800,1400 [facility] Last Admin: 09/25/17 07:51 Dose: 40 mg Heparin Sodium (Porcine) (Heparin) 5,000 units SC Q12 [facility] PRN Reason: Protocol Last Admin: 09/24/17 22:53 Dose: 5,000 units Cefazolin Sodium (Ancef 1gm In Ns) 1 gm in 100 mls @ 100 mls/hr IVPB Q8 [facility] PRN Reason: Protocol Last Admin: 09/25/17 05:22 Dose: 100 mls/hr Insulin Human Regular (Humulin R Med) 0 units SC ACHS [facility] PRN Reason: Protocol Last Admin: 09/25/17 07:46 Dose: Not Given Levothyroxine Sodium (Synthroid) 100 mcg PO 0600 [facility] Last Admin: 09/25/17 05:25 Dose: 100 mcg Montelukast Sodium (Singulair) 10 mg PO HS [facility] Last Admin: 09/24/17 22:54 Dose: 10 mg Multivitamins (Thera Tab) 1 tab PO 0800 [facility] Last Admin: 09/25/17 07:52 Dose: 1 tab Pantoprazole Sodium (Protonix Ec Tab) 40 mg PO 0600 [facility] Last Admin: 09/25/17 05:25 Dose: 40 mg Polyethylene Glycol (Miralax) 17 gm PO DAILY [facility] Last Admin: 09/24/17 09:16 Dose: 17 gm Tramadol HCl (Ultram) 50 mg PO Q4H PRN PRN Reason: Pain, severe (8-10) Last Admin: 09/24/17 15:08 Dose: 50 mg - Labs Labs: 09/25/17 06:15 09/25/17 06:15 PT 13.9 SECONDS (9.4-12.5) H 09/19/17 19:40 INR 1.27 (0.93-1.08) H 09/19/17 19:40 APTT 23.6 Seconds (25.1-36.5) L 09/19/17 19:40 - Constitutional Appears: No Acute Distress - Head Exam Head Exam: ATRAUMATIC, NORMOCEPHALIC - Respiratory Exam Respiratory Exam: Rhonchi, NORMAL BREATHING PATTERN - Cardiovascular Exam Cardiovascular Exam: +S1, +S2 - GI/Abdominal Exam GI & Abdominal Exam: Soft, Normal Bowel Sounds. absent: Tenderness - Neurological Exam Neurological Exam: Alert, Awake, Oriented x3 Assessment and Plan - Assessment and Plan (Free Text) Assessment: Sepsis E. coli and Proteus Mirabilis urinary tract infection Acute on chronic systolic and diastolic heart failure COPD DMII Hypothyroidism Anemia Cardiac arrythymia metastatic prostate cancer Plan: Patient is seen this morning. His sodium level has decreased to 128. Will place patient on fluid restriction. continue oral lasix. continue antibiotics as per infectious disease. awaiting physical therapy evaluation. Patient lives alone and has difficulty ambulating. He would benefit from PITO.
[2017-09-25] MEDS: Collagenase 250 Units/gm Ointment(30 gm) TOP SCH (09:47)
[2017-09-25] MEDS: POLYETHYLENE GLYCOL 3350 17 GM/Dose PACKET PO SCH (09:47)
--- NOTE | 2017-09-25 10:32 | CP.PCM.PN ---
Subjective - Date & Time of Evaluation Date of Evaluation: 09/25/17 Time of Evaluation: 09:50 - Subjective Subjective: Comfortable, no fevers, no abdominal pain, no diarrhea. Objective - Vital Signs/Intake and Output Vital Signs (last 24 hours): Temp Pulse Resp BP Pulse Ox 99 F 60 27 H 116/69 99 09/25/17 04:41 09/25/17 04:21 09/25/17 04:00 09/25/17 04:00 09/25/17 04:00 - Medications Medications: Current Medications Acetaminophen (Tylenol 325mg Tab) 650 mg PO Q6H PRN PRN Reason: Fever >100.4 F Last Admin: 09/24/17 02:15 Dose: 650 mg Albuterol/Ipratropium (Duoneb 3 Mg/0.5 Mg (3 Ml) Ud) 3 ml IH [id number] [facility] Last Admin: 09/25/17 03:45 Dose: 3 ml Amiodarone HCl (Cordarone) 200 mg PO DAILY [facility] Last Admin: 09/24/17 09:13 Dose: 200 mg Calcium Carbonate (Oscal) 500 mg PO DAILY [facility] Last Admin: 09/24/17 09:16 Dose: 500 mg Carvedilol (Coreg) 3.125 mg PO BID [facility] Last Admin: 09/24/17 17:26 Dose: 3.125 mg Collagenase (Santyl) 0 gm TOP DAILY [facility] Last Admin: 09/24/17 09:16 Dose: 1 applic Doxercalciferol (Hectorol) 0.5 mcg PO DAILY [facility] Last Admin: 09/24/17 09:16 Dose: 0.5 mcg Ferrous Sulfate (Feosol) 324 mg PO TID [facility] Last Admin: 09/24/17 17:26 Dose: 324 mg Furosemide (Lasix) 40 mg PO 0800,1400 [facility] Last Admin: 09/24/17 16:05 Dose: 40 mg Heparin Sodium (Porcine) (Heparin) 5,000 units SC Q12 [facility] PRN Reason: Protocol Last Admin: 09/24/17 22:53 Dose: 5,000 units Cefazolin Sodium (Ancef 1gm In Ns) 1 gm in 100 mls @ 100 mls/hr IVPB Q8 [facility] PRN Reason: Protocol Last Admin: 09/25/17 05:22 Dose: 100 mls/hr Insulin Human Regular (Humulin R Med) 0 units SC ACHS [facility] PRN Reason: Protocol Last Admin: 09/24/17 22:53 Dose: Not Given Levothyroxine Sodium (Synthroid) 100 mcg PO 0600 [facility] Last Admin: 09/25/17 05:25 Dose: 100 mcg Montelukast Sodium (Singulair) 10 mg PO HS [facility] Last Admin: 09/24/17 22:54 Dose: 10 mg Multivitamins (Thera Tab) 1 tab PO 0800 [facility] Last Admin: 09/24/17 16:06 Dose: 1 tab Pantoprazole Sodium (Protonix Ec Tab) 40 mg PO 0600 [facility] Last Admin: 09/25/17 05:25 Dose: 40 mg Polyethylene Glycol (Miralax) 17 gm PO DAILY [facility] Last Admin: 09/24/17 09:16 Dose: 17 gm Tramadol HCl (Ultram) 50 mg PO Q4H PRN PRN Reason: Pain, severe (8-10) Last Admin: 09/24/17 15:08 Dose: 50 mg - Labs Labs: 09/25/17 06:15 09/25/17 06:15 PT 13.9 SECONDS (9.4-12.5) H 09/19/17 19:40 INR 1.27 (0.93-1.08) H 09/19/17 19:40 APTT 23.6 Seconds (25.1-36.5) L 09/19/17 19:40 - Constitutional Appears: Non-toxic, Chronically Ill - Head Exam Head Exam: NORMAL INSPECTION - ENT Exam ENT Exam: Mucous Membranes Moist - Neck Exam Neck Exam: absent: Meningismus - Respiratory Exam Respiratory Exam: Decreased Breath Sounds Additional comments: right anterior chest wall port site clean and intact - Cardiovascular Exam Cardiovascular Exam: +S1, +S2 - GI/Abdominal Exam GI & Abdominal Exam: Soft. absent: Tenderness - Extremities Exam Additional comments: both feet with dressings in place Assessment and Plan - Assessment and Plan (Free Text) Plan: Assessment severe sepsis with acute renal failure due to E. 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 diff. associated diarrhea S/P lower urinary tract infection in a patient with indwelling Avendano catheter growing Carbapenem-resistant Klebsiella history of right foot necrotic ulcer with surrounding cellulitis UTI with Enterococcus and Klebsiella chronic renal failure history of DVT DM metastatic Prostate CA history of Enterococcus UTI chronic atrial fibrillation S/P pacemaker and ICD placement Plan urine cx showing E. coli and Proteus which are fajardo-sensitive, blood cx also showing fajardo-sensitive E. coli - continue Cefazolin follow up results of the duplex ultrasound of the port area; 2D echo does not show vegetations; follow up repeat blood cx taken 09/22/2017 from the port and a peripheral vein are negative so far will continue to monitor clinically
--- NOTE | 2017-09-25 10:40 | CP.PCM.PN ---
Subjective - Date & Time of Evaluation Date of Evaluation: 09/25/17 Time of Evaluation: 10:38 - Subjective Subjective: Surgery Pt s&e. NAEON. Denies F/C/N/V/D/CP/SOB. Resting comfortably. Pain controlled. Objective - Vital Signs/Intake and Output Vital Signs (last 24 hours): Temp Pulse Resp BP Pulse Ox 98.4 F 61 20 116/69 100 09/25/17 08:37 09/25/17 08:00 09/25/17 06:00 09/25/17 07:51 09/25/17 08:00 Intake and Output: 09/25/17 09/25/17 06:59 18:59 Intake Total 700 20 Output Total 900 Balance -200 20 - Medications Medications: Current Medications Acetaminophen (Tylenol 325mg Tab) 650 mg PO Q6H PRN PRN Reason: Fever >100.4 F Last Admin: 09/24/17 02:15 Dose: 650 mg Albuterol/Ipratropium (Duoneb 3 Mg/0.5 Mg (3 Ml) Ud) 3 ml IH [id number] [facility] Last Admin: 09/25/17 07:36 Dose: 3 ml Amiodarone HCl (Cordarone) 200 mg PO DAILY [facility] Last Admin: 09/25/17 09:47 Dose: 200 mg Calcium Carbonate (Oscal) 500 mg PO DAILY [facility] Last Admin: 09/25/17 09:47 Dose: 500 mg Carvedilol (Coreg) 3.125 mg PO BID [facility] Last Admin: 09/25/17 09:47 Dose: 3.125 mg Collagenase (Santyl) 0 gm TOP DAILY [facility] Last Admin: 09/25/17 09:47 Dose: 1 applic Doxercalciferol (Hectorol) 0.5 mcg PO DAILY [facility] Last Admin: 09/25/17 09:47 Dose: 0.5 mcg Ferrous Sulfate (Feosol) 324 mg PO TID [facility] Last Admin: 09/25/17 09:47 Dose: 324 mg Furosemide (Lasix) 40 mg PO 0800,1400 [facility] Last Admin: 09/25/17 07:51 Dose: 40 mg Heparin Sodium (Porcine) (Heparin) 5,000 units SC Q12 [facility] PRN Reason: Protocol Last Admin: 09/25/17 09:47 Dose: 5,000 units Cefazolin Sodium (Ancef 1gm In Ns) 1 gm in 100 mls @ 100 mls/hr IVPB Q8 [facility] PRN Reason: Protocol Last Admin: 09/25/17 05:22 Dose: 100 mls/hr Insulin Human Regular (Humulin R Med) 0 units SC ACHS [facility] PRN Reason: Protocol Last Admin: 09/25/17 07:46 Dose: Not Given Levothyroxine Sodium (Synthroid) 100 mcg PO 0600 [facility] Last Admin: 09/25/17 05:25 Dose: 100 mcg Montelukast Sodium (Singulair) 10 mg PO HS [facility] Last Admin: 09/24/17 22:54 Dose: 10 mg Multivitamins (Thera Tab) 1 tab PO 0800 [facility] Last Admin: 09/25/17 07:52 Dose: 1 tab Pantoprazole Sodium (Protonix Ec Tab) 40 mg PO 0600 [facility] Last Admin: 09/25/17 05:25 Dose: 40 mg Polyethylene Glycol (Miralax) 17 gm PO DAILY [facility] Last Admin: 09/25/17 09:47 Dose: 17 gm Tramadol HCl (Ultram) 50 mg PO Q4H PRN PRN Reason: Pain, severe (8-10) Last Admin: 09/25/17 09:48 Dose: 50 mg - Labs Labs: 09/25/17 06:15 09/25/17 06:15 PT 13.9 SECONDS (9.4-12.5) H 09/19/17 19:40 INR 1.27 (0.93-1.08) H 09/19/17 19:40 APTT 23.6 Seconds (25.1-36.5) L 09/19/17 19:40 - Constitutional Appears: No Acute Distress - Head Exam Head Exam: ATRAUMATIC, NORMAL INSPECTION, NORMOCEPHALIC - Eye Exam Eye Exam: EOMI, Normal appearance, PERRL Pupil Exam: NORMAL ACCOMODATION, PERRL - ENT Exam ENT Exam: Mucous Membranes Moist, Normal Exam - Neck Exam Neck Exam: Full ROM, Normal Inspection. absent: Lymphadenopathy - Respiratory Exam Respiratory Exam: Clear to Ausculation Bilateral, NORMAL BREATHING PATTERN - Cardiovascular Exam Cardiovascular Exam: REGULAR RHYTHM, +S1, +S2. absent: Murmur - GI/Abdominal Exam GI & Abdominal Exam: Soft, Normal Bowel Sounds. absent: Tenderness - Rectal Exam Rectal Exam: absent: NORMAL INSPECTION Additional comments: R perirectal area has 2x2xm nodule. Indurated. TTP. - Exam Exam: NORMAL INSPECTION - Extremities Exam Extremities Exam: Full ROM, Normal Capillary Refill, Normal Inspection. absent : Joint Swelling, Pedal Edema - Back Exam Back Exam: NORMAL INSPECTION - Neurological Exam Neurological Exam: Alert, Awake, CN II-XII Intact, Normal Gait, Oriented x3 - Psychiatric Exam Psychiatric exam: Normal Affect, Normal Mood - Skin Skin Exam: Dry, Erythema, Intact, Warm Assessment and Plan - Assessment and Plan (Free Text) Assessment: Perirectal abscess -No leukocytosis -Possible I &D. Lilli Bishop
--- NOTE | 2017-09-25 18:12 | PN ---
DATE: 09/25/2017 REASON FOR CONSULTATION AND FOLLOWUP: History of cardiomyopathy, history of coronary artery disease, history of CABG, admitted with urinary tract infection, sepsis, defibrillator went off twice. SUBJECTIVE: Denies any chest pain, shortness of breath or any palpitation. Feels a lot better. PHYSICAL EXAMINATION: GENERAL: Not in apparent distress. VITAL SIGNS: As follows, temperature afebrile, heart rate 80 and blood pressure 124/52. HEENT: PERRLA. Extraocular muscles intact. NECK: Supple. No carotid bruits or thyromegaly. CHEST: Clear to auscultation. HEART: S1 and S2, regular. ABDOMEN: Soft. EXTREMITIES: Clubbing and cyanosis negative. LABORATORY DATA: Blood workup as follows: WBC 8.6, hemoglobin 8.4, hematocrit 26.7 and platelet count 190. Chemistry shows sodium 128, potassium 4.2, chloride 94, carbon dioxide 30, anion gap of 9, BUN of 40 and creatinine 1.2. IMPRESSION: Hyponatremia, gram-negative sepsis, urinary tract infection, defibrillator went off, tachycardia multifactorial, cardiomyopathy, coronary artery disease, coronary artery bypass grafting, status post percutaneous transluminal coronary angioplasty, paroxysmal atrial fibrillation, protein calorie malnutrition, [id number], which was not present on admission, ischemic cardiomyopathy, paroxysmal atrial fibrillation, history of deep vein thrombosis, history of pulmonary embolism, off anticoagulation because of hematuria, indwelling Avendano catheter, urosepsis. RECOMMENDATIONS: Continue amiodarone after being loaded. Continue Coreg. Continue broad-spectrum antibiotic, Lasix to p.o., monitor for hyponatremia. Follow up blood culture. Continue deep vein thrombosis prophylaxis. Okay to transfer to telemetry. We will follow with you. Repeat the lab in the morning. Thank you Dr. Polk for providing us the opportunity in taking care of the patient, Ziggy Amador. Mely Chavarria MD
--- NOTE | 2017-09-25 19:04 | US ---
PROCEDURE: Right upper extremity venous US CLINICAL HISTORY: Arm pain and swelling Evaluate for deep venous thrombosis. PHYSICIAN(S): Sixto Allen M.D FINDINGS: The visualized rightinternal jugular vein is sonographically normal and compressible. No evidence of obstruction or thrombus is seen. The visualized segments of the right subclavian vein are patent with normal waveforms. No sonographic evidence of obstruction or thrombosis is seen. The visualized deep venous system of the proximal right upper extremity is sonographically normal and compressible. IMPRESSION: 1. No sonographic evidence for deep venous thrombosis in the visualized segments of the right upper extremity.
[2017-09-26] MEDS: Albuterol-Ipratrop 3 mg / 0.5 (3 ml) UD IH SCH ×4 (01:27→19:50)
[2017-09-26] MEDS: ceFAZolin 1 gm in NS 1 GM/100 ML BAG IVPB SCH ×3 (05:30→21:47)
[2017-09-26 06:17] LABS: BASO # 0.02 K/mm3 (0.0-2.0); BASO % 0.3 % (0.0-3.0); EOS # 0.1 (0.0-0.7); GRAN # 5.06 (1.4-6.5); GRAN % 71.8 % (50.0-68.0); HEMATOCRIT 25.1 % (42.0-52.0); LYMPH # 1.1 (1.2-3.4); LYMPH % 15.5 % (22.0-35.0); MEAN CELL VOLUME 85.4 fl (80.0-105.0); MEAN CORPUSCULAR HEMOGLOBIN 26.9 pg (25.0-35.0); MEAN CORPUSCULAR HGB CONC 31.5 g/dl (31.0-37.0); MEAN PLATELET VOLUME 10.2 fl (7.0-11.0); MONO # 0.7 (0.1-0.6); MONO % 10.4 % (1.0-6.0); RED CELL DISTRIBUTION WIDTH 16.2 % (11.5-14.5)
[2017-09-26 07:01] LABS: SODIUM 130 mmol/L (132-148)
[2017-09-26 07:14] LABS: BLOOD UREA NITROGEN 40 mg/dL (7-21); CALCIUM 7.8 mg/dL (8.4-10.5); CARBON DIOXIDE 30 mmol/L (21-33); CHLORIDE 96 mmol/L (98-107); GFR AFRICAN-AMERICAN > 60; GLUCOSE,RANDOM 159 mg/dL (70-110); MAGNESIUM 2.3 mg/dL (1.7-2.2); PHOSPHOROUS 3.1 mg/dL (2.5-4.5)
[2017-09-26 07:15] LABS: POTASSIUM 4.5 mmol/L (3.6-5.0)
[2017-09-26] MEDS: Levothyroxine 100 MCG TAB PO SCH (07:53)
[2017-09-26] MEDS: Insulin Reg-MEDIUM-Coverage SC SCH ×4 (07:57→21:48)
[2017-09-26] MEDS: Pantoprazole 40 mg EC Tab PO SCH (07:58)
--- NOTE | 2017-09-26 08:08 | CP.PCM.PN ---
Subjective - Date & Time of Evaluation Date of Evaluation: 09/26/17 Time of Evaluation: 07:45 - Subjective Subjective: Patient is seen in the critical care unit. He is awaiting bed on remote telemetry. He complains of left heel pain. Objective - Vital Signs/Intake and Output Vital Signs (last 24 hours): Temp Pulse Resp BP Pulse Ox 98.9 F 61 22 117/56 L 97 09/26/17 06:00 09/26/17 06:00 09/26/17 06:00 09/26/17 07:53 09/26/17 06:00 Intake and Output: 09/26/17 09/26/17 06:59 18:59 Intake Total 320 Output Total 600 Balance -280 - Medications Medications: Current Medications Acetaminophen (Tylenol 325mg Tab) 650 mg PO Q6H PRN PRN Reason: Fever >100.4 F Last Admin: 09/24/17 02:15 Dose: 650 mg Albuterol/Ipratropium (Duoneb 3 Mg/0.5 Mg (3 Ml) Ud) 3 ml IH [id number] [facility] Last Admin: 09/26/17 07:30 Dose: 3 ml Amiodarone HCl (Cordarone) 200 mg PO DAILY [facility] Last Admin: 09/25/17 09:47 Dose: 200 mg Calcium Carbonate (Oscal) 500 mg PO DAILY [facility] Last Admin: 09/25/17 09:47 Dose: 500 mg Carvedilol (Coreg) 3.125 mg PO BID [facility] Last Admin: 09/25/17 17:11 Dose: 3.125 mg Collagenase (Santyl) 0 gm TOP DAILY [facility] Last Admin: 09/25/17 09:47 Dose: 1 applic Doxercalciferol (Hectorol) 0.5 mcg PO DAILY [facility] Last Admin: 09/25/17 09:47 Dose: 0.5 mcg Ferrous Sulfate (Feosol) 324 mg PO TID [facility] Last Admin: 09/25/17 17:11 Dose: 324 mg Furosemide (Lasix) 40 mg PO 0800,1400 [facility] Last Admin: 09/26/17 07:53 Dose: 40 mg Heparin Sodium (Porcine) (Heparin) 5,000 units SC Q12 [facility] PRN Reason: Protocol Last Admin: 09/25/17 22:21 Dose: 5,000 units Cefazolin Sodium (Ancef 1gm In Ns) 1 gm in 100 mls @ 100 mls/hr IVPB Q8 [facility] PRN Reason: Protocol Last Admin: 09/26/17 05:30 Dose: 100 mls/hr Insulin Human Regular (Humulin R Med) 0 units SC ACHS [facility] PRN Reason: Protocol Last Admin: 09/26/17 07:57 Dose: 1 units Levothyroxine Sodium (Synthroid) 100 mcg PO 0600 [facility] Last Admin: 09/26/17 07:53 Dose: 100 mcg Montelukast Sodium (Singulair) 10 mg PO HS [facility] Last Admin: 09/26/17 01:35 Dose: 10 mg Multivitamins (Thera Tab) 1 tab PO 0800 [facility] Last Admin: 09/25/17 07:52 Dose: 1 tab Pantoprazole Sodium (Protonix Ec Tab) 40 mg PO 0600 [facility] Last Admin: 09/26/17 07:58 Dose: 40 mg Polyethylene Glycol (Miralax) 17 gm PO DAILY [facility] Last Admin: 09/25/17 09:47 Dose: 17 gm Tramadol HCl (Ultram) 50 mg PO Q4H PRN PRN Reason: Pain, severe (8-10) Last Admin: 09/26/17 07:56 Dose: 50 mg - Labs Labs: 09/26/17 05:30 09/26/17 05:30 PT 13.9 SECONDS (9.4-12.5) H 09/19/17 19:40 INR 1.27 (0.93-1.08) H 09/19/17 19:40 APTT 23.6 Seconds (25.1-36.5) L 09/19/17 19:40 - Constitutional Appears: No Acute Distress - Head Exam Head Exam: ATRAUMATIC, NORMOCEPHALIC - Respiratory Exam Respiratory Exam: Clear to Ausculation Bilateral, NORMAL BREATHING PATTERN - Cardiovascular Exam Cardiovascular Exam: +S1, +S2 - GI/Abdominal Exam GI & Abdominal Exam: Soft, Normal Bowel Sounds. absent: Tenderness - Extremities Exam Extremities Exam: Normal Inspection Additional comments: left heel bandaged - Neurological Exam Neurological Exam: Alert, Awake, Oriented x3 Assessment and Plan - Assessment and Plan (Free Text) Assessment: Anemia Chronic congestive heart failure COPD Hyponatremia CAD DMII Hypothyroidism Left foot ulcer Plan: Patient is seen this morning sitting in chair. His hemoglobin has dropped to 7.9. Patient had hematuria on admission. Urine now clear. Will transfuse 2 units PRBCs today. continue Lasix. continue respiratory treatments. Patient complains of left heel pain. He has ulceration of left heel which has been treated by Dr. Lawrence. continue wound care. We will consult Dr. Lawrence.
--- NOTE | 2017-09-26 08:25 | PN ---
DATE: 09/25/2017 SUBJECTIVE: I saw the patient again, several times over the weekend. The abscess in the perianal area is decreased, less tender and seems to be draining. The presacral lesion decubitus is healing nicely. It is clean and dry with a new dressing as before. I do not need to follow acutely. Please recall if necessary. Thank you very much for allowing me to participate. David Bishop MD
--- NOTE | 2017-09-26 08:41 | PN ---
DATE: 09/25/2017 SUBJECTIVE: The patient remains in the CCU at [facility]. OBJECTIVE: VITAL SIGNS: He is afebrile today with a temperature of 98.4, pulse in the 60s, and BP 120/70. ABDOMEN: Benign. Avendano catheter in place draining slightly blood-tinged urine. IMPRESSION AND PLAN: This is an 87-year-old patient with known metastatic prostate cancer, urinary retention, recurrent gross hematuria, and recurrent urosepsis. Urologically, we will continue antibiotic treatment for Escherichia coli, positive blood cultures from 09/19/2017, urine grew Escherichia coli and Proteus. Continue to irrigate the Avendano catheter if needed; however, it is currently draining well. We will continue to follow the patient with you. Eddie Louise MD
[2017-09-26] MEDS: Collagenase 250 Units/gm Ointment(30 gm) TOP SCH (09:01)
[2017-09-26] MEDS: POLYETHYLENE GLYCOL 3350 17 GM/Dose PACKET PO SCH (09:01)
[2017-09-26] MEDS: Multivitamin Therapeutic Tab PO SCH (09:01)
--- NOTE | 2017-09-26 11:39 | CP.PCM.CON ---
History of Present Illness - History of Present Illness History of Present Illness: Podiatry Consult Note - Dr. Lawrence 87 year old male patient PMHx prostate CA with metastases, chronic indwelling schroeder catheter IDDM, HTN, tachyarrthymia seen and evaluated at bedside for non- healing ulceration to left heel. Patient hemodynamically stable and NAD. Per chart, patient has had several wound debridements to heels b/l; right heel has resolved however left heel wound remains. Patient states he has been seeing Dr. Lawrence on an outpatient basis and believes his left heel has been healing well. Reports continued pain to left heel; states he is non-ambulatory and spends most time in bed. Denies N/V/F/D/C/SOB. PMHx: diabetes, hypertension, hypothyroidism, COPD, metastatic prostate cancer, indwelling schroeder catheter, multiple UTIs, s/p pacemaker defibrillator for tachycardic arrhythmia in 2008 PSH: CABG, pacemaker, portacath R chest, multiple heel wound debridements FH: denies SH: denies ETOH/tobacco/illicit drug use All: Iodinated contrast, levofloxacin Review of Systems - Review of Systems All systems: reviewed and no additional remarkable complaints except (as per HPI ) Past Patient History - Infectious Disease Hx of Infectious Diseases: None - Tetanus Immunizations Tetanus Immunization: Unknown - Past Medical History & Family History Past Medical History?: Yes - Past Social History Smoking Status: Never Smoked - CARDIAC Hx Cardiac Disorders: Yes - PULMONARY Hx Chronic Obstructive Pulmonary Disease (COPD): Yes - NEUROLOGICAL Hx Neurological Disorder: No Hx Paralysis: No - HEENT Hx HEENT Problems: Yes ([place]) Hx Cataracts: Yes (WITH b/t SURGERY) Hx Glaucoma: Yes - RENAL Hx Renal Failure: Yes - ENDOCRINE/METABOLIC Hx Diabetes Mellitus Type 2: Yes Hx Hypothyroidism: Yes - HEMATOLOGICAL/ONCOLOGICAL Hx Blood Transfusions: Yes Hx Blood Transfusion Reaction: No - INTEGUMENTARY Other/Comment: multiple skin discolorations and tatoos both arms, multiple brown skin discolorations ble - MUSCULOSKELETAL/RHEUMATOLOGICAL Hx Musculoskeletal Disorders: No - GASTROINTESTINAL Hx Gastrointestinal Disorders: No - GENITOURINARY/GYNECOLOGICAL Hx Genitourinary Disorders: Yes Hx Reproductive Disorders: No - PSYCHIATRIC Hx Emotional Abuse: No Hx Physical Abuse: No Hx Substance Use: No - SURGICAL HISTORY Other/Comment: L foot surgery. R chest port - ANESTHESIA Hx Anesthesia: Yes Hx Anesthesia Reactions: No Hx Malignant Hyperthermia: No Meds Allergies/Adverse Reactions: Allergies Allergy/AdvReac Type Severity Reaction Status Date / Time Iodinated Contrast- Oral and Allergy ANAPHYLAXIS Verified 09/19/17 18:59 IV Dye levofloxacin [From Levaquin] Allergy ANAPHYLAXIS Verified 09/19/17 18:59 - Medications Medications: Current Medications Acetaminophen (Tylenol 325mg Tab) 650 mg PO Q6H PRN PRN Reason: Fever >100.4 F Last Admin: 09/24/17 02:15 Dose: 650 mg Albuterol/Ipratropium (Duoneb 3 Mg/0.5 Mg (3 Ml) Ud) 3 ml IH [id number] [facility] Last Admin: 09/26/17 07:30 Dose: 3 ml Amiodarone HCl (Cordarone) 200 mg PO DAILY [facility] Last Admin: 09/26/17 09:00 Dose: 200 mg Calcium Carbonate (Oscal) 500 mg PO DAILY [facility] Last Admin: 09/26/17 09:01 Dose: 500 mg Carvedilol (Coreg) 3.125 mg PO BID [facility] Last Admin: 09/26/17 09:00 Dose: 3.125 mg Collagenase (Santyl) 0 gm TOP DAILY [facility] Last Admin: 09/26/17 09:01 Dose: 1 applic Doxercalciferol (Hectorol) 0.5 mcg PO DAILY [facility] Last Admin: 09/26/17 09:03 Dose: 0.5 mcg Ferrous Sulfate (Feosol) 324 mg PO TID [facility] Last Admin: 09/26/17 09:01 Dose: 324 mg Furosemide (Lasix) 40 mg PO 0800,1400 [facility] Last Admin: 09/26/17 07:53 Dose: 40 mg Furosemide (Lasix) 40 mg IV ONCE ONE Stop: 09/26/17 14:01 Heparin Sodium (Porcine) (Heparin) 5,000 units SC Q12 [facility] PRN Reason: Protocol Last Admin: 09/26/17 09:01 Dose: 5,000 units Cefazolin Sodium (Ancef 1gm In Ns) 1 gm in 100 mls @ 100 mls/hr IVPB Q8 [facility] PRN Reason: Protocol Last Admin: 09/26/17 05:30 Dose: 100 mls/hr Insulin Human Regular (Humulin R Med) 0 units SC ACHS [facility] PRN Reason: Protocol Last Admin: 09/26/17 07:57 Dose: 1 units Levothyroxine Sodium (Synthroid) 100 mcg PO 0600 [facility] Last Admin: 09/26/17 07:53 Dose: 100 mcg Montelukast Sodium (Singulair) 10 mg PO HS [facility] Last Admin: 09/26/17 01:35 Dose: 10 mg Multivitamins (Thera Tab) 1 tab PO 0800 [facility] Last Admin: 09/26/17 09:01 Dose: 1 tab Pantoprazole Sodium (Protonix Ec Tab) 40 mg PO 0600 [facility] Last Admin: 09/26/17 07:58 Dose: 40 mg Polyethylene Glycol (Miralax) 17 gm PO DAILY [facility] Last Admin: 09/26/17 09:01 Dose: 17 gm Tramadol HCl (Ultram) 50 mg PO Q4H PRN PRN Reason: Pain, severe (8-10) Last Admin: 09/26/17 07:56 Dose: 50 mg Physical Exam - Constitutional Appears: Well, Non-toxic, No Acute Distress - Extremities Exam Additional comments: Offloading boots not present. Optifoam to left heel clean/dry/intact VASC: DP and PT pulses nonpalpable. Temperature gradient cool to cool b/l. No edema noted. No increase in warmth noted to left heel. CFT WNL to all digits b/ l. NEURO: Gross sensation diminished bilaterally. DERM: 3 x 2 cm ulceration noted to left heel - ulcer is noted to have a 100% fibrous base and maceration periwound; absent periwound erythema, purulence, fluctuance, malodor, or clinical signs of infection noted at this time. Healed pressure ulcer noted to posterolateral right heel. Right 3rd digit noted to have a stable eschar with no drainage, purulence, fluctuance, malodor, surrounding erythema - no clinical signs of infection noted at this time. ORTHO: Pain on palpation left heel ulceration. No pain on palpation right heel or right 3rd digit. - Neurological Exam Neurological exam: Alert, Oriented x3 - Psychiatric Exam Psychiatric exam: Normal Affect, Normal Mood Results - Vital Signs Recent Vital Signs: Last Vital Signs Temp 98.1 F 09/26/17 08:00 Pulse 61 09/26/17 09:00 Resp 20 09/26/17 08:00 BP 115/42 L 09/26/17 09:00 Pulse Ox 99 09/26/17 08:00 - Labs Result Diagrams: 09/26/17 05:30 09/26/17 05:30 Labs: Laboratory Results - last 24 hr 09/25/17 09/25/17 09/26/17 11:07 16:14 05:30 WBC 7.0 RBC 2.94 L Hgb 7.9 L Hct 25.1 L MCV 85.4 MCH 26.9 MCHC 31.5 RDW 16.2 H Plt Count 209 MPV 10.2 Gran % 71.8 H Lymph % (Auto) 15.5 L [place] % (Auto) 10.4 H Eos % (Auto) 2.0 Baso % (Auto) 0.3 Gran # 5.06 Lymph # 1.1 L [place] # 0.7 H Eos # 0.1 Baso # 0.02 Sodium Potassium Chloride Carbon Dioxide Anion Gap BUN Creatinine Est GFR ( Amer) Est GFR (Non-Af Amer) POC Glucose (mg/dL) 188 H 215 H Random Glucose Calcium Phosphorus Magnesium Blood Type Antibody Screen Crossmatch BBK History Checked 09/26/17 09/26/17 05:30 08:24 WBC RBC Hgb Hct MCV MCH MCHC RDW Plt Count MPV Gran % Lymph % (Auto) [place] % (Auto) Eos % (Auto) Baso % (Auto) Gran # Lymph # [place] # Eos # Baso # Sodium 130 L Potassium 4.5 Chloride 96 L Carbon Dioxide 30 Anion Gap 9 L BUN 40 H Creatinine 1.2 Est GFR ( Amer) > 60 Est GFR (Non-Af Amer) 57 POC Glucose (mg/dL) Random Glucose 159 H Calcium 7.8 L Phosphorus 3.1 Magnesium 2.3 H Blood Type O POSITIVE Antibody Screen Negative Crossmatch See Detail BBK History Checked Patient has bt Assessment & Plan - Assessment and Plan (Free Text) Assessment: 87 year old male with left heel decubitus ulceration, stable Plan: Patient seen and evaluated Discussed with attending, Dr. Lawrence afebozzyle, absent leukocytosis Heels appear stable at this time -QD hydrogel, optifoam L heel Soft multipodus boots ordered, to be worn at all times while in bed Continue pain mgmt per medicine Podiatry will continue to follow patient while in house
--- NOTE | 2017-09-26 14:07 | PN ---
DATE: 09/26/2017 REASON FOR CONSULTATION AND FOLLOWUP: Coronary artery disease, sepsis, defibrillator went off, cardiomyopathy, and CABG. Awaiting to be transferred to telemetry. SUBJECTIVE: The patient denies any chest pain, shortness of breath or any palpitation. He is still in the ICU 129, bed 1, awaiting to be transferred to telemetry. Feels a lot better. OBJECTIVE: GENERAL: Not in apparent distress, sitting in the chair, having the breakfast and waiting to be transferred. VITAL SIGNS: As follows, temperature afebrile, heart rate 61, and blood pressure 101/43. HEENT: PERRLA. Extraocular muscles intact. NECK: Supple. No carotid bruits or thyromegaly. CHEST: Clear to auscultation. HEART: S1 and S2, regular. ABDOMEN: Soft. EXTREMITIES: Clubbing and cyanosis negative. LABORATORY DATA: Blood workup as follows: WBC 7, hemoglobin 7.9, hematocrit 25.1, and platelet count 209. Chemistry shows sodium 130, potassium 4.5, chloride 96, carbon dioxide 30, anion gap of 9, BUN of 40, creatinine 1.2, magnesium 2.32, total calcium is 7.8, 3.1. IMPRESSION: Urosepsis, gram-negative, repeat blood cultures negative, defibrillator went off because of sepsis. Initially, antitachycardia device is paced, but later degenerate into shock twice, now the patient is stable. No further episode of defibrillator went off noted. History of coronary artery disease, coronary artery bypass graft, coronary artery bypass surgery, history of percutaneous transluminal coronary angioplasty, pre and post coronary artery bypass graft, history of paroxysmal atrial fibrillation, history of protein-calorie malnutrition, [id number], which was not present on admission, ischemic cardiomyopathy, paroxysmal atrial fibrillation, history of deep vein thrombosis, history of pulmonary embolism, off anticoagulation because of hematuria, indwelling Avendano catheter because of prostate carcinoma, urosepsis from the catheter. RECOMMENDATIONS: Continue broad-spectrum antibiotic. Continue amiodarone 200 mg daily after being loaded for the higher doses. Monitor H and H, possible packed RBC transfusion today. We will give Lasix post transfusion 40 of Lasix in between 2 packed RBCs transfusion. Monitor the labs in the morning. Continue Ensure protein added for protein-calorie malnutrition. We will follow with you. Thank you Dr. Polk for providing us the opportunity in taking care of the patient, Perry Trinh. Mely Chavarria MD
--- NOTE | 2017-09-26 19:10 | PN ---
DATE: 09/26/2017 SUBJECTIVE: The patient is in bed, in no acute distress. PHYSICAL EXAMINATION VITAL SIGNS: Temperature is 98, blood pressure is 130/60, respiratory rate of 18. HEENT: Unremarkable. NECK: Supple. LUNGS: Have decreased breath sounds. HEART: Normal S1, S2. ABDOMEN: Soft. LABORATORY DATA: Reveals a white count of 7, hemoglobin of 7.9, platelets of 209. BUN of 40, creatinine of 1.2. Urinalysis is noted. Microbiology is noted. Blood cultures are negative, the repeat once. The initial blood culture positive for E. coli in the blood and E. coli and Proteus in the urine. E. coli in the blood is pansensitive. REVIEW OF ORDERS: Reveals the patient to be on cefazolin. Dr. Louise's progress note from yesterday is noted. Metastatic prostate cancer, urinary retention, recurrent sepsis with urine as the source and Dr. Polk's progress note from today is reviewed. ASSESSMENT AND PLAN: This is an 87-year-old male was seen early this morning in the ICU, now moved to [facility] with severe sepsis, acute renal failure with Escherichia coli bacteremia due to Escherichia coli in the urine. Repeat cultures negative and prostatic cancer with metastases, maybe able to switch to p.o. antibiotics next upon discharge since the Escherichia Coli in the urine is pansensitive in a patient who is allergic to Levaquin, would use p.o. Vantin 200 mg p.o. b.i.d. to complete full 14 days of antibiotics. Elliot Hernandez MD
[2017-09-27] MEDS: Albuterol-Ipratrop 3 mg / 0.5 (3 ml) UD IH SCH ×3 (01:19→13:42)
[2017-09-27] MEDS: Pantoprazole 40 mg EC Tab PO SCH (05:31)
[2017-09-27] MEDS: Levothyroxine 100 MCG TAB PO SCH (05:31)
[2017-09-27] MEDS: ceFAZolin 1 gm in NS 1 GM/100 ML BAG IVPB SCH (05:32)
--- NOTE | 2017-09-27 08:04 | CP.PCM.PN ---
Subjective - Date & Time of Evaluation Date of Evaluation: 09/27/17 Time of Evaluation: 07:45 - Subjective Subjective: Patient is seen this morning. He is in room 367 bed 2. He is feeling weak he says. Objective - Vital Signs/Intake and Output Vital Signs (last 24 hours): Temp Pulse Resp BP Pulse Ox 97.9 F 62 18 117/54 L 97 09/27/17 00:01 09/27/17 06:00 09/27/17 00:01 09/27/17 00:01 09/27/17 00:01 Intake and Output: 09/27/17 09/27/17 06:59 18:59 Intake Total 1285 Output Total 1800 Balance -515 - Medications Medications: Current Medications Acetaminophen (Tylenol 325mg Tab) 650 mg PO Q6H PRN PRN Reason: Fever >100.4 F Last Admin: 09/26/17 18:05 Dose: 650 mg Albuterol/Ipratropium (Duoneb 3 Mg/0.5 Mg (3 Ml) Ud) 3 ml IH [id number] [facility] Last Admin: 09/27/17 01:19 Dose: 3 ml Amiodarone HCl (Cordarone) 200 mg PO DAILY [facility] Last Admin: 09/26/17 09:00 Dose: 200 mg Calcium Carbonate (Oscal) 500 mg PO DAILY [facility] Last Admin: 09/26/17 09:01 Dose: 500 mg Carvedilol (Coreg) 3.125 mg PO BID [facility] Last Admin: 09/26/17 17:07 Dose: 3.125 mg Cefpodoxime Proxetil (Vantin) 200 mg PO Q12 [facility] PRN Reason: Protocol Stop: 10/07/17 10:01 Collagenase (Santyl) 0 gm TOP DAILY [facility] Last Admin: 09/26/17 09:01 Dose: 1 applic Doxercalciferol (Hectorol) 0.5 mcg PO DAILY [facility] Last Admin: 09/26/17 09:03 Dose: 0.5 mcg Ferrous Sulfate (Feosol) 324 mg PO TID [facility] Last Admin: 09/26/17 17:07 Dose: 324 mg Furosemide (Lasix) 40 mg PO 0800,1400 [facility] Last Admin: 09/26/17 15:21 Dose: Not Given Heparin Sodium (Porcine) (Heparin) 5,000 units SC Q12 [facility] PRN Reason: Protocol Last Admin: 09/26/17 21:42 Dose: 5,000 units Insulin Human Regular (Humulin R Med) 0 units SC ACHS [facility] PRN Reason: Protocol Last Admin: 09/26/17 21:48 Dose: Not Given Levothyroxine Sodium (Synthroid) 100 mcg PO 0600 [facility] Last Admin: 09/27/17 05:31 Dose: 100 mcg Montelukast Sodium (Singulair) 10 mg PO HS [facility] Last Admin: 09/26/17 21:44 Dose: 10 mg Multivitamins (Thera Tab) 1 tab PO 0800 [facility] Last Admin: 09/26/17 09:01 Dose: 1 tab Pantoprazole Sodium (Protonix Ec Tab) 40 mg PO 0600 [facility] Last Admin: 09/27/17 05:31 Dose: 40 mg Polyethylene Glycol (Miralax) 17 gm PO DAILY [facility] Last Admin: 09/26/17 09:01 Dose: 17 gm Tramadol HCl (Ultram) 50 mg PO Q4H PRN PRN Reason: Pain, severe (8-10) Last Admin: 09/26/17 07:56 Dose: 50 mg - Labs Labs: 09/26/17 05:30 09/26/17 05:30 PT 13.9 SECONDS (9.4-12.5) H 09/19/17 19:40 INR 1.27 (0.93-1.08) H 09/19/17 19:40 APTT 23.6 Seconds (25.1-36.5) L 09/19/17 19:40 - Constitutional Appears: No Acute Distress - Head Exam Head Exam: ATRAUMATIC, NORMOCEPHALIC - Respiratory Exam Respiratory Exam: Rhonchi, NORMAL BREATHING PATTERN - Cardiovascular Exam Cardiovascular Exam: +S1, +S2 - GI/Abdominal Exam GI & Abdominal Exam: Soft, Normal Bowel Sounds. absent: Tenderness - Neurological Exam Neurological Exam: Alert, Awake, Oriented x3 Assessment and Plan - Assessment and Plan (Free Text) Assessment: Sepsis secondary to Urinary tract infection Chronic heart failure DMII Anemia Hypothyroidism Metastatic prostate cancer COPD CAD Plan: Patient received 2 units of PRBCs yesterday. Awaiting CBC. continue wound care as per podiatry. continue Lasix BID OOB to chair. continue PT. for PITO vs TRCU
[2017-09-27] MEDS: Insulin Reg-MEDIUM-Coverage SC SCH ×3 (08:27→17:31)
[2017-09-27 09:04] LABS: BASO # 0.03 K/mm3 (0.0-2.0); BASO % 0.4 % (0.0-3.0); EOS # 0.3 (0.0-0.7); EOS % 4.3 % (1.5-5.0); GRAN # 5.38 (1.4-6.5); GRAN % 71.5 % (50.0-68.0); HEMATOCRIT 31.9 % (42.0-52.0); LYMPH % 13.4 % (22.0-35.0); MEAN CELL VOLUME 84.8 fl (80.0-105.0); MEAN CORPUSCULAR HEMOGLOBIN 27.7 pg (25.0-35.0); MEAN CORPUSCULAR HGB CONC 32.6 g/dl (31.0-37.0); MEAN PLATELET VOLUME 10.2 fl (7.0-11.0); MONO # 0.8 (0.1-0.6); MONO % 10.4 % (1.0-6.0); RED CELL DISTRIBUTION WIDTH 15.8 % (11.5-14.5); WHITE BLOOD COUNT 7.5 10^3/ul (4.5-11.0)
[2017-09-27] MEDS: POLYETHYLENE GLYCOL 3350 17 GM/Dose PACKET PO SCH (09:29)
[2017-09-27] MEDS: Multivitamin Therapeutic Tab PO SCH (09:29)
--- NOTE | 2017-09-27 09:48 | PN ---
DATE: 09/27/2017 SUBJECTIVE: The patient seen in room 367 and bed 2. The patient is doing well. No nausea, no vomiting. PHYSICAL EXAMINATION: VITAL SIGNS: Temperature is 98, blood pressure is 117/50, respiratory rate of 18. HEENT: Unremarkable. NECK: Supple. LUNGS: Have decreased breath sounds. HEART: Normal S1, S2. ABDOMEN: Soft, nontender. LABORATORY DATA: Reveals a white count of 7000, hemoglobin of 7, platelets of 209. Chemistries reveals a BUN of 40, creatinine of 1.2. Urinalysis is noted and microbiology reveals the blood culture initially had E. coli; with repeat blood cultures, there are no growth. Review of orders reveals the patient to be on cefazolin. ASSESSMENT AND PLAN: An 87-year-old male with severe sepsis, acute renal failure, Escherichia coli bacteremia with Escherichia coli in the urine and a patient with a prostate cancer, metastases, and we will switch to p.o. Vantin 200 mg p.o. b.i.d. and discontinue cefazolin. We will follow with you. Elliot Hernandez MD
[2017-09-27] MEDS ORDERED: Cefpodoxime (Vantin) 200 mg Tab PO SCH (10:00)
[2017-09-27] MEDS: Collagenase 250 Units/gm Ointment(30 gm) TOP SCH (11:05)
[2017-09-27 11:18] VITALS: RESP 20; TEMP 98; O2SAT 95
[2017-09-27 11:50] VITALS: PULSE 60
--- NOTE | 2017-09-27 12:58 | PN ---
DATE: 09/27/2017 REASON FOR CONSULTATION: Followup coronary artery disease, urosepsis, defibrillator went off, cardiomyopathy, CABG and he was status post packed RBC transfusion. SUBJECTIVE: Denies any chest pain, shortness of breath or any palpitation. OBJECTIVE: GENERAL: Not in apparent distress. VITAL SIGNS: As follows, temperature afebrile, heart rate 62, blood pressure 117/54. HEENT: PERRLA. Extraocular muscles intact. NECK: Supple. No carotid bruits or thyromegaly. CHEST: Clear to auscultation. HEART: S1 and S2, regular. ABDOMEN: Soft. EXTREMITIES: Clubbing and cyanosis negative. LABORATORY DATA: Blood workup as follows: WBC 7.5, hemoglobin 10.4, hematocrit 31.9, and platelet count 232. Chemistry shows sodium 130, potassium 4.5, chloride 96, carbon dioxide 30, anion gap of 9, BUN of 40, creatinine 1.2. IMPRESSION: Severe anemia, status post packed RBC transfusion, urosepsis, urinary tract infection, indwelling Avendano catheter, stage IV cancer prostate with metastasis, status post defibrillator went off because of tachycardia, ventricular fibrillation and status post cardioverter normal sinus, history of atrial fibrillation in the past, paroxysmal, history of deep vein thrombosis, history of pulmonary embolism, off anticoagulation because of genitourinary bleed, history of coronary artery disease, history of coronary artery bypass graft, history of mild cardiomyopathy. Last echo shows ejection fraction around 45%, [id number] tricuspid regurgitation, right ventricular systolic pressure of 43, history of automated implantable cardioverter defibrillator, history of generator change in 01/2017. RECOMMENDATIONS: Continue broad-spectrum antibiotic. Monitor H and H. Continue amiodarone 200 mg. Continue Coreg 3.125 mg daily. Continue iron supplement, multivitamin, gentle diuretics. CVS status is stable. Medical treatment recommended. We will follow. We will repeat the blood in the morning. Thank you Dr. Polk for providing us the opportunity in taking care of the patient, Ziggy Amador. We will follow with you. Mely Chavarria MD
[2017-09-27 14:44] VITALS: BP 140/64
--- NOTE | 2017-09-27 14:50 | CP.PCM.PN ---
Subjective - Date & Time of Evaluation Date of Evaluation: 09/27/17 Time of Evaluation: 14:47 - Subjective Subjective: Podiatry Progress Note - Dr. Lawrence 87 year old male patient seen and evaluated at bedside for non-healing ulceration to left heel. Patient hemodynamically stable and NAD. Denies any acute events overnight. Reports continued pain to both heels, well-controlled. Offloading boots present on both feet. Denies N/V/F/D/C/SOB/calf pain. Objective - Vital Signs/Intake and Output Vital Signs (last 24 hours): Temp Pulse Resp BP Pulse Ox 98.0 F 60 20 140/64 95 09/27/17 06:00 09/27/17 10:00 09/27/17 06:00 09/27/17 14:39 09/27/17 06:00 Intake and Output: 09/27/17 09/27/17 06:59 18:59 Intake Total 1285 Output Total 1800 Balance -515 - Medications Medications: Current Medications Acetaminophen (Tylenol 325mg Tab) 650 mg PO Q6H PRN PRN Reason: Fever >100.4 F Last Admin: 09/26/17 18:05 Dose: 650 mg Albuterol/Ipratropium (Duoneb 3 Mg/0.5 Mg (3 Ml) Ud) 3 ml IH [id number] [facility] Last Admin: 09/27/17 13:42 Dose: 3 ml Amiodarone HCl (Cordarone) 200 mg PO DAILY [facility] Last Admin: 09/27/17 09:26 Dose: 200 mg Calcium Carbonate (Oscal) 500 mg PO DAILY [facility] Last Admin: 09/27/17 09:27 Dose: 500 mg Carvedilol (Coreg) 3.125 mg PO BID [facility] Last Admin: 09/27/17 09:28 Dose: 3.125 mg Cefpodoxime Proxetil (Vantin) 200 mg PO Q12 [facility] PRN Reason: Protocol Stop: 10/07/17 10:01 Last Admin: 09/27/17 09:26 Dose: 200 mg Collagenase (Santyl) 0 gm TOP DAILY [facility] Last Admin: 09/27/17 11:05 Dose: Not Given Doxercalciferol (Hectorol) 0.5 mcg PO DAILY [facility] Last Admin: 09/27/17 09:25 Dose: 0.5 mcg Ferrous Sulfate (Feosol) 324 mg PO TID [facility] Last Admin: 09/27/17 14:39 Dose: 324 mg Furosemide (Lasix) 40 mg PO 0800,1400 [facility] Last Admin: 09/27/17 14:39 Dose: 40 mg Heparin Sodium (Porcine) (Heparin) 5,000 units SC Q12 [facility] PRN Reason: Protocol Last Admin: 09/27/17 09:23 Dose: 5,000 units Insulin Human Regular (Humulin R Med) 0 units SC ACHS [facility] PRN Reason: Protocol Last Admin: 09/27/17 12:22 Dose: 3 units Levothyroxine Sodium (Synthroid) 100 mcg PO 0600 [facility] Last Admin: 09/27/17 05:31 Dose: 100 mcg Montelukast Sodium (Singulair) 10 mg PO HS [facility] Last Admin: 09/26/17 21:44 Dose: 10 mg Multivitamins (Thera Tab) 1 tab PO 0800 [facility] Last Admin: 09/27/17 09:29 Dose: 1 tab Pantoprazole Sodium (Protonix Ec Tab) 40 mg PO 0600 [facility] Last Admin: 09/27/17 05:31 Dose: 40 mg Polyethylene Glycol (Miralax) 17 gm PO DAILY [facility] Last Admin: 09/27/17 09:29 Dose: 17 gm Tramadol HCl (Ultram) 50 mg PO Q4H PRN PRN Reason: Pain, severe (8-10) Last Admin: 09/27/17 12:17 Dose: 50 mg - Labs Labs: 09/27/17 08:50 09/26/17 05:30 PT 13.9 SECONDS (9.4-12.5) H 09/19/17 19:40 INR 1.27 (0.93-1.08) H 09/19/17 19:40 APTT 23.6 Seconds (25.1-36.5) L 09/19/17 19:40 - Constitutional Appears: Well, Non-toxic, No Acute Distress - Extremities Exam Additional comments: Offloading boots present bilaterally. Optifoam to left heel clean/dry/intact VASC: DP and PT pulses nonpalpable. Temperature gradient cool to cool b/l. No edema noted. No increase in warmth noted to left heel. CFT WNL to all digits b/ l. NEURO: Gross sensation diminished bilaterally. DERM: 3 x 2 cm ulceration noted to left heel - ulcer is noted to have a 100% fibrous base and mild maceration periwound; absent periwound erythema, purulence , fluctuance, malodor, or clinical signs of infection noted at this time. Healed pressure ulcer noted to posterolateral right heel. Right 3rd digit noted to have a stable eschar with no drainage, purulence, fluctuance, malodor, surrounding erythema - no clinical signs of infection noted at this time. ORTHO: Pain on palpation left heel ulceration and right heel. No pain on palpation right 3rd digit. - Neurological Exam Neurological Exam: Alert, Awake, Oriented x3 - Psychiatric Exam Psychiatric exam: Normal Affect, Normal Mood Assessment and Plan - Assessment and Plan (Free Text) Assessment: 87 year old male with left heel decubitus ulceration, stable Plan: Patient seen and evaluated Discussed with attending, Dr. Lawrence afebrile, absent leukocytosis Continue local wound care left heel -QD hydrogel, optifoam Continue multipodus boots at all times in bed Continue pain mgmt per medicine Stable per podiatry standpoint Podiatry will continue to follow patient while in house
== END 2017-09-27 18:54 | DRG 871 ==
LOC: ED 19:00 → ERH 21:33 → CCU 23:39 → 3RNO 09-26 10:13
PROVIDERS: ADMIT Internal Medicine; ATTEND Internal Medicine
PROC: 4B02XSZ Measurement of Cardiac Pacemaker, External Approach (ICD-10-PCS; principal; 2017-09-20)
PROC: 3E0F7GC Introduction of Other Therapeutic Substance into Respiratory Tract, Via Natural or Artificial Opening (ICD-10-PCS; 2017-09-20)
PROC: 30233N1 Transfusion of Nonautologous Red Blood Cells into Peripheral Vein, Percutaneous Approach (ICD-10-PCS; 2017-09-26)
DX: A41.51 Sepsis due to Escherichia coli [E. coli] (principal); I50.43 Acute on chronic combined systolic (congestive) and diastolic (congestive) heart failure; I47.2 Ventricular tachycardia; I49.01 Ventricular fibrillation; E43 Unspecified severe protein-calorie malnutrition; N17.9 Acute kidney failure, unspecified; E11.22 Type 2 diabetes mellitus with diabetic chronic kidney disease; E11.621 Type 2 diabetes mellitus with foot ulcer; I42.0 Dilated cardiomyopathy; C77.5 Secondary and unspecified malignant neoplasm of intrapelvic lymph nodes; C61 Malignant neoplasm of prostate; D64.9 Anemia, unspecified; N39.0 Urinary tract infection, site not specified; K61.2 Anorectal abscess; I13.0 Hypertensive heart and chronic kidney disease with heart failure and stage 1 through stage 4 chronic kidney disease, or unspecified chronic kidney disease; E87.1 Hypo-osmolality and hyponatremia; E86.0 Dehydration; I48.0 Paroxysmal atrial fibrillation; I08.3 Combined rheumatic disorders of mitral, aortic and tricuspid valves; R65.20 Severe sepsis without septic shock; E03.9 Hypothyroidism, unspecified; K29.70 Gastritis, unspecified, without bleeding; J44.9 Chronic obstructive pulmonary disease, unspecified; I25.10 Atherosclerotic heart disease of native coronary artery without angina pectoris; E78.5 Hyperlipidemia, unspecified; R31.0 Gross hematuria; L89.629 Pressure ulcer of left heel, unspecified stage; N18.9 Chronic kidney disease, unspecified; I48.2 Chronic atrial fibrillation; L97.529 Non-pressure chronic ulcer of other part of left foot with unspecified severity; I25.5 Ischemic cardiomyopathy; I25.2 Old myocardial infarction; Z79.4 Long term (current) use of insulin; Z87.440 Personal history of urinary (tract) infections; Z86.711 Personal history of pulmonary embolism; Z86.718 Personal history of other venous thrombosis and embolism; Z95.1 Presence of aortocoronary bypass graft; Z89.421 Acquired absence of other right toe(s); Z98.61 Coronary angioplasty status; Z95.810 Presence of automatic (implantable) cardiac defibrillator

== ENCOUNTER 2017-09-27 18:49 | Inpatient (IN) | payer OTHER, MEDICARE ==
[2017-08-16 18:35] VITALS: PULSE 60
[2017-09-27] MEDS: Albuterol-Ipratrop 3 mg / 0.5 (3 ml) UD IH SCH (21:01)
[2017-09-27] MEDS: Insulin Reg-MEDIUM-Coverage SC SCH (21:49)
[2017-09-27] MEDS: Cefpodoxime (Vantin) 200 mg Tab PO SCH (21:56)
[2017-09-27 23:06] VITALS: BMI 26.6
[2017-09-27] MEDS ORDERED: Influenza Vaccine 60 mcg/0.5 mL SYR (4YR UP) IM ONE (23:06)
[2017-09-27] MEDS ORDERED: Pneumococcal 23-Valent Vaccine IM ONE (23:06)
[2017-09-28] MEDS: Albuterol-Ipratrop 3 mg / 0.5 (3 ml) UD IH SCH ×4 (02:26→19:51)
[2017-09-28] MEDS: Pantoprazole 40 mg EC Tab PO SCH (05:19)
[2017-09-28] MEDS: Levothyroxine 100 MCG TAB PO SCH (05:19)
[2017-09-28] MEDS: Insulin Reg-MEDIUM-Coverage SC SCH ×3 (06:42→21:27)
--- NOTE | 2017-09-28 07:24 | CP.PCM.CON ---
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 Patient hemodynamically stable and NAD. Left heel offloading boot not present. Patient admits to continued pain and increased sensitivity to left heel. No new complaints to right heel. Denies N/V/F/D/C/SOB/ calf pain. Review of Systems - Review of Systems All systems: reviewed and no additional remarkable complaints except (as per HPI ) Past Patient History - Infectious Disease Hx of Infectious Diseases: None - Tetanus Immunizations Tetanus Immunization: Unknown - Past Medical History & Family History Past Medical History?: Yes - Past Social History Smoking Status: Never Smoked - CARDIAC Hx Cardiac Disorders: Yes (stents, afib w/ defibrillator) Other/Comment: multiple angioplastys - PULMONARY Hx Respiratory Disorders: (hs home o2 and nebulizer machine) - NEUROLOGICAL Hx Neurological Disorder: No Hx Paralysis: No - HEENT Hx HEENT Problems: Yes ([place]) Hx Cataracts: Yes (WITH b/t SURGERY) Hx Glaucoma: Yes - RENAL Hx Renal Failure: Yes - ENDOCRINE/METABOLIC Hx Diabetes Mellitus Type 2: Yes Hx Hypothyroidism: Yes - HEMATOLOGICAL/ONCOLOGICAL Hx Blood Transfusions: Yes Hx Blood Transfusion Reaction: No - INTEGUMENTARY Other/Comment: multiple skin discolorations and tatoos both arms, multiple brown skin discolorations ble - MUSCULOSKELETAL/RHEUMATOLOGICAL Hx Falls: Yes - GASTROINTESTINAL Hx Gastrointestinal Disorders: Yes (DYSPHAGIA,H/O C DIFF,) - GENITOURINARY/GYNECOLOGICAL Hx Genitourinary Disorders: Yes (CHRONIC SCHROEDER CATH-URINARY RETENTION,UTI) Hx Reproductive Disorders: Yes (PROSTATE CA) - PSYCHIATRIC Hx Emotional Abuse: No Hx Physical Abuse: No Hx Substance Use: No - SURGICAL HISTORY Other/Comment: cardiac stents, 4 quadruple bypass in the past 3 years, indwelling schroeder catheter placement. cystoscopy x3 weeks ago, left shoulder cyst removed 1988 - ANESTHESIA Hx Anesthesia: Yes Hx Anesthesia Reactions: No Hx Malignant Hyperthermia: No Meds Allergies/Adverse Reactions: Allergies Allergy/AdvReac Type Severity Reaction Status Date / Time Iodinated Contrast- Oral and Allergy ANAPHYLAXIS Verified 09/27/17 21:24 IV Dye levofloxacin [From Levaquin] Allergy ANAPHYLAXIS Verified 09/27/17 21:24 - Medications Medications: Current Medications Acetaminophen (Tylenol 325mg Tab) 650 mg PO Q6H PRN; Protocol PRN Reason: Fever >100.4 F Albuterol/Ipratropium (Duoneb 3 Mg/0.5 Mg (3 Ml) Ud) 3 ml IH [id number] [facility] PRN Reason: Protocol Last Admin: 09/28/17 02:26 Dose: 3 ml Amiodarone HCl (Cordarone) 200 mg PO DAILY [facility] Calcium Carbonate (Oscal) 500 mg PO DAILY [facility] PRN Reason: Protocol Carvedilol (Coreg) 3.125 mg PO BID [facility] PRN Reason: Protocol Cefpodoxime Proxetil (Vantin) 200 mg PO Q12 [facility] PRN Reason: Protocol Last Admin: 09/27/17 21:56 Dose: 200 mg Collagenase (Santyl) 0 gm TOP DAILY [facility] PRN Reason: Protocol Doxercalciferol (Hectorol) 0.5 mcg PO DAILY [facility] Ferrous Sulfate (Feosol) 324 mg PO TID [facility] PRN Reason: Protocol Furosemide (Lasix) 40 mg PO 0800,1400 [facility] PRN Reason: Protocol Heparin Sodium (Porcine) (Heparin) 5,000 units SC Q12 [facility] PRN Reason: Protocol Last Admin: 09/27/17 21:54 Dose: 5,000 units Insulin Human Regular (Humulin R Med) 0 units SC ACHS [facility] PRN Reason: Protocol Last Admin: 09/28/17 06:42 Dose: Not Given Levothyroxine Sodium (Synthroid) 100 mcg PO 0600 [facility] PRN Reason: Protocol Last Admin: 09/28/17 05:19 Dose: 100 mcg Montelukast Sodium (Singulair) 10 mg PO HS [facility] PRN Reason: Protocol Last Admin: 09/27/17 21:56 Dose: 10 mg Multivitamins (Thera Tab) 1 tab PO 0800 [facility] PRN Reason: Protocol Pantoprazole Sodium (Protonix Ec Tab) 40 mg PO 0600 [facility] PRN Reason: Protocol Last Admin: 09/28/17 05:19 Dose: 40 mg Polyethylene Glycol (Miralax) 17 gm PO DAILY [facility] PRN Reason: Protocol Tramadol HCl (Ultram) 50 mg PO Q4H PRN; Protocol PRN Reason: Pain, moderate (4-7) Physical Exam - Constitutional Appears: Well, Non-toxic, No Acute Distress - Extremities Exam Additional comments: Optifoam to left heel clean/dry/intact VASC: DP and PT pulses nonpalpable. Temperature gradient cool to cool b/l. No edema noted. No increase in warmth noted to left heel. CFT WNL to all digits b/ l. NEURO: Gross sensation diminished bilaterally. DERM: 3 x 2 cm ulceration noted to left heel - ulcer is noted to have a mixed fibrogranular base; absent periwound erythema or periwound maceration, purulence , fluctuance, malodor, or clinical signs of infection noted at this time. Healed pressure ulcer noted to posterolateral right heel. Right 3rd digit noted to have a stable eschar with no drainage, purulence, fluctuance, malodor, surrounding erythema - no clinical signs of infection noted at this time. ORTHO: Pain on palpation left heel ulceration, No pain on palpation right 3rd digit or right heel. - Neurological Exam Neurological exam: Alert, Oriented x3 - Psychiatric Exam Psychiatric exam: Normal Affect, Normal Mood Results - Vital Signs Recent Vital Signs: Last Vital Signs Temp 98.2 F 09/27/17 22:39 Pulse 58 L 09/27/17 22:39 Resp 16 09/27/17 22:39 BP 127/61 09/27/17 22:39 Pulse Ox - Labs Labs: Laboratory Results - last 24 hr 09/28/17 05:27 POC Glucose (mg/dL) 143 H Assessment & Plan - Assessment and Plan (Free Text) Assessment: 87 year old male with left heel decubitus ulceration, stable Plan: Patient seen and evaluated with attending, Dr. Melinda brannon Continue local wound care left heel -QD hydrogel, optifoam Continue multipodus boots at all times in bed Continue pain mgmt per medicine Stable per podiatry standpoint Podiatry will continue to follow patient while in house
[2017-09-28] MEDS ORDERED: Darbepoetin Alfa 100 mcg/ml Inj SC ONE (08:09)
--- NOTE | 2017-09-28 08:09 | CP.PCM.HP ---
History of Present Illness - History of Present Illness History of Present Illness: 87 year old male with history of chronic heart failure, chronic obstructive pulmonary disease, hypothyroidism, type II diabetes mellitus, metastatic prostate cancer and arthritis was admitted to the intensive care unit for sepsis secondary to urinary tract infection. Patient improved with IV antibiotics. Patient also had firing of his AICD and was found to be in acute systolic and diastolic heart failure. He was given IV Lasix and improved. Now, he is admitted to the transitional care unit for physical therapy for deconditioning and ambulatory dysfunction. Present on Admission - Present on Admission Any Indicators Present on Admission: Yes History of DVT/PE: Yes History of Uncontrolled Diabetes: No Urinary Catheter: Yes Decubitus Ulcer Present: No Review of Systems - Constitutional Constitutional: absent: Chills, Excessive Sweating, Fever - Cardiovascular Cardiovascular: absent: Chest Pain, Dyspnea, Leg Edema - Respiratory Respiratory: absent: Cough, Dyspnea, Wheezing - Gastrointestinal Gastrointestinal: Abdominal Pain - Musculoskeletal Musculoskeletal: Radiating Pain into Limb Past Patient History - Infectious Disease Hx of Infectious Diseases: None - Tetanus Immunizations Tetanus Immunization: Unknown - Past Medical History & Family History Past Medical History?: Yes - Past Social History Smoking Status: Never Smoked - CARDIAC Hx Cardiac Disorders: Yes (stents, afib w/ defibrillator) Other/Comment: multiple angioplastys - PULMONARY Hx Respiratory Disorders: (hs home o2 and nebulizer machine) - NEUROLOGICAL Hx Neurological Disorder: No Hx Paralysis: No - HEENT Hx HEENT Problems: Yes ([place]) Hx Cataracts: Yes (WITH b/t SURGERY) Hx Glaucoma: Yes - RENAL Hx Renal Failure: Yes - ENDOCRINE/METABOLIC Hx Diabetes Mellitus Type 2: Yes Hx Hypothyroidism: Yes - HEMATOLOGICAL/ONCOLOGICAL Hx Blood Transfusions: Yes Hx Blood Transfusion Reaction: No - INTEGUMENTARY Other/Comment: multiple skin discolorations and tatoos both arms, multiple brown skin discolorations ble - MUSCULOSKELETAL/RHEUMATOLOGICAL Hx Falls: Yes - GASTROINTESTINAL Hx Gastrointestinal Disorders: Yes (DYSPHAGIA,H/O C DIFF,) - GENITOURINARY/GYNECOLOGICAL Hx Genitourinary Disorders: Yes (CHRONIC SCHROEDER CATH-URINARY RETENTION,UTI) Hx Reproductive Disorders: Yes (PROSTATE CA) - PSYCHIATRIC Hx Emotional Abuse: No Hx Physical Abuse: No Hx Substance Use: No - SURGICAL HISTORY Other/Comment: cardiac stents, 4 quadruple bypass in the past 3 years, indwelling schroeder catheter placement. cystoscopy x3 weeks ago, left shoulder cyst removed 1988 - ANESTHESIA Hx Anesthesia: Yes Hx Anesthesia Reactions: No Hx Malignant Hyperthermia: No Meds Allergies/Adverse Reactions: Allergies Allergy/AdvReac Type Severity Reaction Status Date / Time Iodinated Contrast- Oral and Allergy ANAPHYLAXIS Verified 09/27/17 21:24 IV Dye levofloxacin [From Levaquin] Allergy ANAPHYLAXIS Verified 09/27/17 21:24 Physical Exam - Head Exam Head Exam: ATRAUMATIC, NORMOCEPHALIC - Respiratory Exam Respiratory Exam: Clear to Auscultation Bilateral, NORMAL BREATHING PATTERN - Cardiovascular Exam Cardiovascular Exam: +S1, +S2 - GI/Abdominal Exam GI & Abdominal Exam: Normal Bowel Sounds, Soft. 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 He will continue with physical therapy for gait training and strengthening. He will continue his maintenance medications. He is on oral Vantin for urinary tract infection. Hemoglobin improved to 10.4 after 2 units of packed red blood cells. check CBC and BMP in AM.
[2017-09-28] MEDS: Multivitamin Therapeutic Tab PO SCH (08:54)
[2017-09-28] MEDS: Cefpodoxime (Vantin) 200 mg Tab PO SCH ×2 (10:33→21:19)
[2017-09-28] MEDS: Collagenase 250 Units/gm Ointment(30 gm) TOP SCH (10:35)
[2017-09-28] MEDS: POLYETHYLENE GLYCOL 3350 17 GM/Dose PACKET PO SCH (10:35)
--- NOTE | 2017-09-29 01:10 | CON ---
DATE: 09/28/2017 LOCATION: The patient is in room 327, bed 1. REASON FOR CONSULTATION: Coronary artery disease; history of multiple angioplasties; history of cardiomyopathy; history of AICD insertion; history of ventricular tachycardia; ventricular fibrillation; diabetes mellitus; metastatic prostate cancer; arthritis, who was admitted to Intensive Care Unit for urosepsis, now the patient in Transitional Care Unit for deconditioning. HISTORY OF PRESENT ILLNESS: An 87-year-old male with known case of coronary artery disease, had multiple angioplasties and stent insertion, also had ischemic cardiomyopathy, chronic obstructive pulmonary disease, history of AICD insertion, recently defibrillator fired for ventricular tachycardia, ventricular fibrillation, the patient known for his arthritis, stage IV metastatic prostate cancer; diabetes mellitus, who was admitted to the Intensive Care Unit with urosepsis. The patient's defibrillator fired, it was interrogated and was due to ventricular tachycardia and ventricular fibrillation. The patient was also treated for CHF, and the patient also treated for anemia. The patient now improved and transferred to Transitional Care Unit for deconditioning. The patient lying flat in bed without chest pain or shortness of breath. He is complaining of pelvic area pain, which he complained before also. The patient has a longtime indwelling Avendano catheter. PAST MEDICAL HISTORY: Positive for coronary artery disease; multiple stent insertions; shortness of breath; COPD; sepsis; genitourinary bleeding; abdominal pain; AICD insertion; CHF; multiple stents for coronary artery disease; and CA of the prostate stage IV. The patient also has history of glaucoma and cataract. The patient also has history of dysphagia and history of Clostridium difficile colitis. He also has history of bypass surgery in the past and multiple cystoscopies, history of cyst removal from shoulder in 1988. ALLERGIES: THE PATIENT IS ALLERGIC TO IODINATED CONTRAST ORAL AND IV DYE AND ALSO LEVOFLOXACIN. PERSONAL HISTORY: Denies smoking. Denies drinking. PHYSICAL EXAMINATION: VITAL SIGNS: Blood pressure 121/56, respirations 18, pulse 60, temperature 97.3. HEENT: Head is normocephalic. Eyes: Pupils normal. Conjunctivae, slightly pale. NECK: JVP low. Carotid equal. THORAX: AP diameter normal. LUNGS: Clear. CARDIOVASCULAR: S1 and S2. ABDOMEN: Soft, has pelvic area tenderness. No organomegaly. EXTREMITIES: No clubbing. No cyanosis. LABORATORY DATA: WBC 7.5, hemoglobin 10.4, hematocrit 31.9, platelets 232. Random sugar 178. Lab on 09/25/2017, sodium 128, potassium 4.5, BUN 40, creatinine 1.2. Random sugar was 117 at that time. AST 86, ALT 63, alkaline phosphatase 268. Albumin was low 2.6 and calcium was low 7.9. DIAGNOSES: Sepsis; severe anemia, status post red blood cells transfusion; urosepsis; urinary tract infection; indwelling Avendano catheter; stage IV cancer of prostate with metastasis; status post defibrillator went off because of ventricular tachycardia and ventricular fibrillation; status post cardioversion to normal sinus; history of paroxysmal atrial fibrillation in the past; history of deep vein thrombosis; history of pulmonary embolism, the patient was off anticoagulation because of genitourinary bleeding; history of coronary artery disease; history of coronary artery bypass graft surgery; history of multiple stents insertion; mild cardiomyopathy; last echo done on December 20, 2016 showed ejection fraction of 45%; [id number] tricuspid regurgitation; RV systolic pressure 43 mmHg, which showed mild pulmonary hypertension; history of automatic implantable cardioverter defibrillator insertion, status post generator change in 01/2017; deconditioning. PLAN: The patient is on amiodarone 200 mg p.o. daily; Coreg 3.125 b.i.d.; DuoNeb hand held nebulizer therapy; ferrous sulfate 324 mg p.o. t.i.d.; heparin 5000 units subcutaneous q. 12 hours; furosemide 40 mg p.o. b.i.d.; Protonix 40 daily; Singulair 10 mg at bedtime; Synthroid 100 mcg p.o. daily; Vantin 200 mg p.o. q. 12 hours. Continue physical therapy. We will follow with you. Mely Walters MD [facility]
[2017-09-29] MEDS: Albuterol-Ipratrop 3 mg / 0.5 (3 ml) UD IH SCH ×4 (02:24→20:48)
--- NOTE | 2017-09-29 04:31 | CON ---
DATE: 09/28/2017 IDENTIFICATION DATA: The patient seen early this morning in no acute distress. CHIEF COMPLAINT: Weakness from several days. HISTORY OF PRESENT ILLNESS: This is an 87-year-old male with renal disease, prostate cancer, diabetes, history of hypertension, carbapenem-resistant Klebsiella urinary tract infection and was treated with Avycaz in the past. The patient has a history of foot ulcer and was admitted to the Acute Care and found to have Escherichia coli bacteremia secondary to E. coli urinary tract infection and completed therapy, repeat cultures are negative and switch p.o. Vantin. Infectious Diseases consultation now has recalled in Transitional Care. PAST MEDICAL HISTORY: The patient has renal disease, prostate cancer, diabetes, hypertension, carbapenem-resistant Klebsiella urinary tract infection and was treated also with Avycaz in the past, foot ulcer and recent diagnosis of E. coli bacteremia in the recent hospitalization to the Acute Care with E. coli urinary tract infection as a source. PAST SURGICAL HISTORY: Significant for pacemaker, Port-A-cath and coronary artery bypass graft. ALLERGIES: THE PATIENT IS ALLERGIC TO LEVAQUIN AND IODINATED CONTRAST, ORAL AND IV CONTRAST. MEDICATIONS: Reviewed. REVIEW OF SYSTEMS: There is no fever. No chills. No nausea. No vomiting. No chest pain. PHYSICAL EXAMINATION: VITAL SIGNS: The patient's temperature is 98, blood pressure is 120/70 and respiratory rate of 16. HEENT: Examination of HEENT is unremarkable. NECK: Supple. LUNGS: Have decreased breath sounds. HEART: Normal S1 and S2. ABDOMEN: Soft and nontender. LABORATORY DATA: Laboratory examination revealed the patient to have glucose of 178 and remainder labs are reviewed in Acute Care. ASSESSMENT AND PLAN: This is a 87-year-old male with renal disease, prostate cancer, diabetes, hypertension, carbapenem-resistant Klebsiella urinary tract infection, history of treatment with Avycaz, foot ulcer, now with severe sepsis, Escherichia coli bacteremia with Escherichia coli urine as a source and completed intravenous therapy. Currently on p.o. Vantin, today is day number 8 of 14 days. We will follow closely with you, look for side effects of medications and/or complications of hospitalization such as nosocomial infections. Elliot Hernandez MD
[2017-09-29] MEDS: Pantoprazole 40 mg EC Tab PO SCH (05:52)
[2017-09-29] MEDS: Levothyroxine 100 MCG TAB PO SCH (05:52)
[2017-09-29] MEDS: Insulin Reg-MEDIUM-Coverage SC SCH ×4 (06:53→21:54)
[2017-09-29 07:12] LABS: BASO # 0.04 K/mm3 (0.0-2.0); BASO % 0.6 % (0.0-3.0); EOS # 0.2 (0.0-0.7); EOS % 3.2 % (1.5-5.0); GRAN # 4.1 (1.4-6.5); GRAN % 65.5 % (50.0-68.0); HEMATOCRIT 32.8 % (42.0-52.0); LYMPH # 1.1 (1.2-3.4); LYMPH % 17.3 % (22.0-35.0); MEAN CELL VOLUME 85.9 fl (80.0-105.0); MEAN CORPUSCULAR HEMOGLOBIN 27.5 pg (25.0-35.0); MEAN PLATELET VOLUME 9.6 fl (7.0-11.0); MONO # 0.8 (0.1-0.6); MONO % 13.4 % (1.0-6.0); RED CELL DISTRIBUTION WIDTH 16.3 % (11.5-14.5); WHITE BLOOD COUNT 6.3 10^3/ul (4.5-11.0)
[2017-09-29 08:01] LABS: BLOOD UREA NITROGEN 25 mg/dL (7-21); CALCIUM 8.2 mg/dL (8.4-10.5); CARBON DIOXIDE 29 mmol/L (21-33); CHLORIDE 98 mmol/L (98-107); GFR AFRICAN-AMERICAN > 60; GLUCOSE,RANDOM 172 mg/dL (70-110); POTASSIUM 4.5 mmol/L (3.6-5.0); SODIUM 132 mmol/L (132-148)
--- NOTE | 2017-09-29 08:12 | CP.PCM.PN ---
Subjective - Date & Time of Evaluation Date of Evaluation: 09/29/17 Time of Evaluation: 07:40 - Subjective Subjective: Patient is seen this morning. He is sitting up in the bed eating breakfast. Objective - Vital Signs/Intake and Output Vital Signs (last 24 hours): Temp Pulse Resp BP Pulse Ox 98.1 F 60 16 152/68 H 96 09/29/17 06:00 09/29/17 06:00 09/29/17 06:00 09/29/17 06:00 09/29/17 06:00 Intake and Output: 09/29/17 09/29/17 06:59 18:59 Intake Total 600 Output Total 1850 Balance -1250 - Medications Medications: Current Medications Acetaminophen (Tylenol 325mg Tab) 650 mg PO Q6H PRN; Protocol PRN Reason: Fever >100.4 F Albuterol/Ipratropium (Duoneb 3 Mg/0.5 Mg (3 Ml) Ud) 3 ml IH [id number] JEANA PRN Reason: Protocol Last Admin: 09/29/17 07:24 Dose: 3 ml Amiodarone HCl (Cordarone) 200 mg PO DAILY JEANA Last Admin: 09/28/17 10:34 Dose: 200 mg Calcium Carbonate (Oscal) 500 mg PO DAILY JEANA PRN Reason: Protocol Last Admin: 09/28/17 10:33 Dose: 500 mg Carvedilol (Coreg) 3.125 mg PO BID JEANA PRN Reason: Protocol Last Admin: 09/28/17 19:04 Dose: 3.125 mg Cefpodoxime Proxetil (Vantin) 200 mg PO Q12 JEANA PRN Reason: Protocol Last Admin: 09/28/17 21:19 Dose: 200 mg Collagenase (Santyl) 0 gm TOP DAILY JEANA PRN Reason: Protocol Last Admin: 09/28/17 10:35 Dose: 1 appl Darbepoetin Josh (Aranesp) 100 mcg SC ONCE ONE Stop: 09/28/17 08:10 Doxercalciferol (Hectorol) 0.5 mcg PO DAILY JEANA Last Admin: 09/28/17 10:34 Dose: 0.5 mcg Ferrous Sulfate (Feosol) 324 mg PO TID JEANA PRN Reason: Protocol Last Admin: 09/28/17 19:04 Dose: 324 mg Furosemide (Lasix) 40 mg PO 0800,1400 JEANA PRN Reason: Protocol Last Admin: 09/28/17 14:52 Dose: 40 mg Heparin Sodium (Porcine) (Heparin) 5,000 units SC Q12 JEANA PRN Reason: Protocol Last Admin: 09/28/17 21:18 Dose: 5,000 units Insulin Human Regular (Humulin R Med) 0 units SC ACHS JEANA PRN Reason: Protocol Last Admin: 09/29/17 06:53 Dose: 1 units Levothyroxine Sodium (Synthroid) 100 mcg PO 0600 JEANA PRN Reason: Protocol Last Admin: 09/29/17 05:52 Dose: 100 mcg Montelukast Sodium (Singulair) 10 mg PO HS JEANA PRN Reason: Protocol Last Admin: 09/28/17 21:19 Dose: 10 mg Multivitamins (Thera Tab) 1 tab PO 0800 JEANA PRN Reason: Protocol Last Admin: 09/28/17 08:54 Dose: 1 tab Pantoprazole Sodium (Protonix Ec Tab) 40 mg PO 0600 JEANA PRN Reason: Protocol Last Admin: 09/29/17 05:52 Dose: 40 mg Polyethylene Glycol (Miralax) 17 gm PO DAILY JEANA PRN Reason: Protocol Last Admin: 09/28/17 10:35 Dose: 17 gm Tramadol HCl (Ultram) 50 mg PO Q4H PRN; Protocol PRN Reason: Pain, moderate (4-7) Last Admin: 09/28/17 14:52 Dose: 50 mg - Labs Labs: 09/29/17 06:30 09/29/17 06:30 - Constitutional Appears: No Acute Distress - Head Exam Head Exam: ATRAUMATIC, NORMOCEPHALIC - Respiratory Exam Respiratory Exam: Rhonchi, NORMAL BREATHING PATTERN - Cardiovascular Exam Cardiovascular Exam: +S1, +S2 - GI/Abdominal Exam GI & Abdominal Exam: Soft, Normal Bowel Sounds. absent: Tenderness - Neurological Exam Neurological Exam: Alert, Awake, Oriented x3 Assessment and Plan - Assessment and Plan (Free Text) Assessment: Sepsis secondary to urinary tract infection COPD CAD Metastatic prostate cancer HTN Hypothyroidism DMII Plan: continue antibiotics as per infectious disease. continue physical therapy for deconditioning and gait training. continue respiratory treatments for COPD and insulin for diabetes
[2017-09-29] MEDS: Multivitamin Therapeutic Tab PO SCH (09:00)
[2017-09-29] MEDS: POLYETHYLENE GLYCOL 3350 17 GM/Dose PACKET PO SCH (09:23)
[2017-09-29] MEDS: Cefpodoxime (Vantin) 200 mg Tab PO SCH ×2 (09:25→21:29)
--- NOTE | 2017-09-29 11:09 | PN ---
DATE: 09/29/2017 SUBJECTIVE: The patient is in bed in no acute distress, nontoxic. PHYSICAL EXAMINATION: VITAL SIGNS: On exam, temperature is 98, blood pressure is 150/60, respiratory rate of 18. HEENT: Unremarkable. NECK: Supple. LUNGS: Decreased breath sounds. HEART: Normal S1 and S2. ABDOMEN: Soft, nontender. LABORATORY DATA: Reveals the patient's white count of 6.3, hemoglobin of 10, platelets of 266. BUN of 25, creatinine of 1.0. MEDICATIONS: Review of orders reveals the patient to be on p.o. Vantin. ASSESSMENT AND PLAN: This is an 87-year-old male with renal disease, prostate cancer, diabetes, history of hypertension, carbapenem-resistant Klebsiella urinary tract infection treated with Avycaz. Foot ulcer with severe sepsis, Escherichia coli bacteremia, Escherichia coli completed intravenous therapy. Currently on p.o. Vantin, today is day #9 of 14. We will follow closely with you. Elliot Hernandez MD
[2017-09-29] MEDS: Collagenase 250 Units/gm Ointment(30 gm) TOP SCH (12:25)
--- NOTE | 2017-09-29 15:01 | PN ---
DATE: 09/29/2017 SUBJECTIVE: The patient is seen now on the Transitional Care Unit at [facility]. OBJECTIVE: GENERAL: He is awake and alert and answering questions. VITAL SIGNS: He is afebrile, temperature 98.1, pulse of 60, respirations 18, and blood pressure 115/48. ABDOMEN: Soft, nontender, and nondistended. There is no hepatosplenomegaly. There is no costovertebral angle tenderness. GENITOURINARY: Phallus is normal. Avendano catheter in place draining clear colored urine. IMPRESSION AND PLAN: The patient is with metastatic prostate cancer and recurrent congestive heart failure. The patient is being treated for sepsis, urinary infection, infected decubital ulcer, and other sources. He has responded well to treatment for congestive heart failure and antibiotics. Continue his current therapy, not much to add urologically. We will continue to change his Avendano catheter monthly. The patient should continue followup with Oncology for advanced prostate cancer treatment. Eddie Louise MD
--- NOTE | 2017-09-29 15:02 | CP.PCM.PN ---
Subjective - Date & Time of Evaluation Date of Evaluation: 09/29/17 Time of Evaluation: 14:59 - Subjective Subjective: Podiatry Consult Note - Dr. Lawrence 87 year old male patient seen and evaluated at bedside for non-healing ulceration to left heel. Patient OOB, hemodynamically stable and NAD. Denies any acute events overnight. Reports continued pain to left heel, well controlled. Otherwise no pedal complaints. Denies N/V/F/D/C/SOB/calf pain. Objective - Vital Signs/Intake and Output Vital Signs (last 24 hours): Temp Pulse Resp BP Pulse Ox 98.1 F 60 18 115/48 L 100 09/29/17 10:57 09/29/17 10:57 09/29/17 10:57 09/29/17 13:36 09/29/17 10:57 Intake and Output: 09/29/17 09/29/17 06:59 18:59 Intake Total 600 Output Total 1850 Balance -1250 - Medications Medications: Current Medications Acetaminophen (Tylenol 325mg Tab) 650 mg PO Q6H PRN; Protocol PRN Reason: Fever >100.4 F Albuterol/Ipratropium (Duoneb 3 Mg/0.5 Mg (3 Ml) Ud) 3 ml IH [id number] JEANA PRN Reason: Protocol Last Admin: 09/29/17 13:04 Dose: 3 ml Amiodarone HCl (Cordarone) 200 mg PO DAILY [facility] Last Admin: 09/29/17 09:20 Dose: 200 mg Calcium Carbonate (Oscal) 500 mg PO DAILY JEANA PRN Reason: Protocol Last Admin: 09/29/17 09:23 Dose: 500 mg Carvedilol (Coreg) 3.125 mg PO BID JEANA PRN Reason: Protocol Last Admin: 09/29/17 09:21 Dose: 3.125 mg Cefpodoxime Proxetil (Vantin) 200 mg PO Q12 JEANA PRN Reason: Protocol Last Admin: 09/29/17 09:25 Dose: 200 mg Collagenase (Santyl) 0 gm TOP DAILY JEANA PRN Reason: Protocol Last Admin: 09/29/17 12:25 Dose: 1 appl Darbepoetin Josh (Aranesp) 100 mcg SC ONCE ONE Stop: 09/28/17 08:10 Doxercalciferol (Hectorol) 0.5 mcg PO DAILY [facility] Last Admin: 09/29/17 09:22 Dose: 0.5 mcg Ferrous Sulfate (Feosol) 324 mg PO TID JEANA PRN Reason: Protocol Last Admin: 09/29/17 13:24 Dose: 324 mg Furosemide (Lasix) 40 mg PO 0800,1400 [facility] PRN Reason: Protocol Last Admin: 09/29/17 13:36 Dose: 40 mg Heparin Sodium (Porcine) (Heparin) 5,000 units SC Q12 JEANA PRN Reason: Protocol Last Admin: 09/29/17 09:22 Dose: 5,000 units Insulin Human Regular (Humulin R Med) 0 units SC ACHS JEANA PRN Reason: Protocol Last Admin: 09/29/17 12:20 Dose: 3 units Levothyroxine Sodium (Synthroid) 100 mcg PO 0600 [facility] PRN Reason: Protocol Last Admin: 09/29/17 05:52 Dose: 100 mcg Montelukast Sodium (Singulair) 10 mg PO HS JEANA PRN Reason: Protocol Last Admin: 09/28/17 21:19 Dose: 10 mg Multivitamins (Thera Tab) 1 tab PO 0800 [facility] PRN Reason: Protocol Last Admin: 09/29/17 09:00 Dose: 1 tab Pantoprazole Sodium (Protonix Ec Tab) 40 mg PO 0600 [facility] PRN Reason: Protocol Last Admin: 09/29/17 05:52 Dose: 40 mg Polyethylene Glycol (Miralax) 17 gm PO DAILY [facility] PRN Reason: Protocol Last Admin: 09/29/17 09:23 Dose: 17 gm Tramadol HCl (Ultram) 50 mg PO Q4H PRN; Protocol PRN Reason: Pain, moderate (4-7) Last Admin: 09/29/17 13:29 Dose: 50 mg - Labs Labs: 09/29/17 06:30 09/29/17 06:30 - Constitutional Appears: Well, Non-toxic, No Acute Distress - Extremities Exam Additional comments: Optifoam to left heel clean/dry/intact VASC: DP and PT pulses nonpalpable. Temperature gradient cool to cool b/l. No edema noted. No increase in warmth noted to left heel. CFT WNL to all digits b/ l. NEURO: Gross sensation diminished bilaterally. DERM: 3 x 2 cm ulceration noted to left heel - ulcer is noted to have a mixed fibrogranular base; absent periwound erythema or periwound maceration, purulence , fluctuance, malodor, or clinical signs of infection noted at this time. Healed pressure ulcer noted to posterolateral right heel with overlying xerosis. Right 3rd digit noted to have a stable eschar with no drainage, purulence, fluctuance, malodor, surrounding erythema - no clinical signs of infection noted at this time. ORTHO: Pain on palpation left heel ulceration, No pain on palpation right 3rd digit or right heel. - Neurological Exam Neurological Exam: Alert, Awake, Oriented x3 - Psychiatric Exam Psychiatric exam: Normal Affect, Normal Mood Assessment and Plan - Assessment and Plan (Free Text) Assessment: 87 year old male with left heel decubitus ulceration, stable Plan: Patient seen and evaluated Discussed with attending, Dr. Lawrence afebrile, absent leukocytosis Continue local wound care left heel - optifoam Continue multipodus boots at all times in bed Continue pain mgmt per medicine Stable per podiatry standpoint Podiatry will continue to follow patient while in house
--- NOTE | 2017-09-29 17:12 | CP.PCM.PN ---
Subjective - Date & Time of Evaluation Date of Evaluation: 09/29/17 Time of Evaluation: 17:10 - Subjective Subjective: PGY1 Note for Dr. Weiner HPI: Patient seen and examined at bedside. Doing well with no complaints at this time. Denies fever, chills Objective - Vital Signs/Intake and Output Vital Signs (last 24 hours): Temp Pulse Resp BP Pulse Ox 97.9 F 60 20 146/70 95 09/29/17 16:06 09/29/17 16:06 09/29/17 16:06 09/29/17 16:06 09/29/17 16:06 Intake and Output: 09/29/17 09/29/17 06:59 18:59 Intake Total 600 Output Total 1850 Balance -1250 - Medications Medications: Current Medications Acetaminophen (Tylenol 325mg Tab) 650 mg PO Q6H PRN; Protocol PRN Reason: Fever >100.4 F Albuterol/Ipratropium (Duoneb 3 Mg/0.5 Mg (3 Ml) Ud) 3 ml IH [id number] JEANA PRN Reason: Protocol Last Admin: 09/29/17 13:04 Dose: 3 ml Amiodarone HCl (Cordarone) 200 mg PO DAILY JEANA Last Admin: 09/29/17 09:20 Dose: 200 mg Calcium Carbonate (Oscal) 500 mg PO DAILY JEANA PRN Reason: Protocol Last Admin: 09/29/17 09:23 Dose: 500 mg Carvedilol (Coreg) 3.125 mg PO BID JEANA PRN Reason: Protocol Last Admin: 09/29/17 09:21 Dose: 3.125 mg Cefpodoxime Proxetil (Vantin) 200 mg PO Q12 JEANA PRN Reason: Protocol Last Admin: 09/29/17 09:25 Dose: 200 mg Collagenase (Santyl) 0 gm TOP DAILY JEANA PRN Reason: Protocol Last Admin: 09/29/17 12:25 Dose: 1 appl Darbepoetin Josh (Aranesp) 100 mcg SC ONCE ONE Stop: 09/28/17 08:10 Doxercalciferol (Hectorol) 0.5 mcg PO DAILY JEANA Last Admin: 09/29/17 09:22 Dose: 0.5 mcg Ferrous Sulfate (Feosol) 324 mg PO TID JEANA PRN Reason: Protocol Last Admin: 09/29/17 13:24 Dose: 324 mg Furosemide (Lasix) 40 mg PO 0800,1400 JEANA PRN Reason: Protocol Last Admin: 09/29/17 13:36 Dose: 40 mg Heparin Sodium (Porcine) (Heparin) 5,000 units SC Q12 JEANA PRN Reason: Protocol Last Admin: 09/29/17 09:22 Dose: 5,000 units Insulin Human Regular (Humulin R Med) 0 units SC ACHS JEANA PRN Reason: Protocol Last Admin: 09/29/17 12:20 Dose: 3 units Levothyroxine Sodium (Synthroid) 100 mcg PO 0600 JEANA PRN Reason: Protocol Last Admin: 09/29/17 05:52 Dose: 100 mcg Montelukast Sodium (Singulair) 10 mg PO HS JEANA PRN Reason: Protocol Last Admin: 09/28/17 21:19 Dose: 10 mg Multivitamins (Thera Tab) 1 tab PO 0800 JEANA PRN Reason: Protocol Last Admin: 09/29/17 09:00 Dose: 1 tab Pantoprazole Sodium (Protonix Ec Tab) 40 mg PO 0600 JEANA PRN Reason: Protocol Last Admin: 09/29/17 05:52 Dose: 40 mg Polyethylene Glycol (Miralax) 17 gm PO DAILY JEANA PRN Reason: Protocol Last Admin: 09/29/17 09:23 Dose: 17 gm Tramadol HCl (Ultram) 50 mg PO Q4H PRN; Protocol PRN Reason: Pain, moderate (4-7) Last Admin: 09/29/17 13:29 Dose: 50 mg - Labs Labs: 09/29/17 06:30 09/29/17 06:30 - Constitutional Appears: Well, Non-toxic, No Acute Distress - Head Exam Head Exam: ATRAUMATIC, NORMAL INSPECTION, NORMOCEPHALIC - Eye Exam Eye Exam: EOMI Pupil Exam: NORMAL ACCOMODATION - ENT Exam ENT Exam: Mucous Membranes Moist - Respiratory Exam Respiratory Exam: Clear to Ausculation Bilateral, NORMAL BREATHING PATTERN - Cardiovascular Exam Cardiovascular Exam: REGULAR RHYTHM - GI/Abdominal Exam GI & Abdominal Exam: Soft, Normal Bowel Sounds. absent: Distended, Tenderness - Extremities Exam Extremities Exam: absent: Joint Swelling, Tenderness - Back Exam Additional comments: sacral decub healing well, almost completely closed - Neurological Exam Neurological Exam: Alert, Awake, Oriented x3 - Skin Skin Exam: Dry, Intact, Normal Color, Warm Assessment and Plan - Assessment and Plan (Free Text) Assessment: 87M with perianal abscess Plan: * no surgical intervention needed. Almost resolved * No pain at the site * Warm compress Q4H Abadier PGY1
--- NOTE | 2017-09-29 23:43 | PN ---
DATE: 09/29/2017 LOCATION: The patient in room 313, bed 1. REASON FOR CONSULTATION AND FOLLOWUP: Coronary artery disease, history of multiple angioplasty, history of cardiomyopathy, history of AICD insertion, ventricular tachycardia, ventricular fibrillation, diabetes, metastatic prostatic cancer, urinary tract infection, and deconditioning. SUBJECTIVE: The patient is lying flat in bed without any chest pain, shortness of breath or palpitation. He complains lower pelvic area pain which is related to his metastatic prostatic carcinoma. PHYSICAL EXAMINATION: VITAL SIGNS: Blood pressure 146/70, respirations 20, pulse 60, and temperature 97.9. HEENT: Head is normocephalic. Eyes; pupils are normal. Conjunctivae slightly pale. NECK: JVP low. Carotids equal. THORAX: AP diameter normal. LUNGS: Clear. CARDIOVASCULAR: S1 and S2. ABDOMEN: Soft and nontender. No organomegaly. Bowel sounds normal. EXTREMITIES: No clubbing. No cyanosis. LABORATORY DATA: WBC 6.3, hemoglobin 10.5, hematocrit 32.8, platelet 266. Sodium 132, potassium 4.5, BUN 25, creatinine 1.0, random sugar 219, random glucose 172, calcium 8.2. Echo on 12/20/2016 showed LV ejection fraction of 45%, [id number] tricuspid regulation, RV systolic pressure 43 mmHg which is consistent with mild pulmonary hypertension. The patient's AICD generator change took place in 01/2017. DIAGNOSES: Sepsis, severe anemia status post blood transfusion, urosepsis, urinary tract infection, indwelling Avendano catheter, stage IV cancer of prostate with metastasis, status post defibrillator went off because of ventricular tachycardia, ventricular fibrillation, status post cardioversion in normals sinus, history of paroxysmal atrial fibrillation in the past, history of deep vein thrombosis, pulmonary embolism. The patient also anticoagulation with genitourinary bleeding; coronary artery disease; history of coronary artery bypass graft surgery; history of multiple stents insertion; mild cardiomyopathy, ischemic; deconditioning. PLAN: The patient is on amiodarone 200 mg p.o. daily, Coreg 3.125 b.i.d., ferrous sulfate 324 p.o. t.i.d., heparin 5000 units subcutaneously q. 12 hours, furosemide 40 mg p.o. b.i.d., Protonix 40 mg daily, Singulair 10 mg at bedtime, Synthroid 100 mcg p.o. daily, Vantin 200 mg p.o. q. 12 hours. We will continue present therapy. Continue physical therapy. We will follow. Mely Walters MD
[2017-09-30] MEDS: Albuterol-Ipratrop 3 mg / 0.5 (3 ml) UD IH SCH ×4 (01:42→20:20)
[2017-09-30] MEDS: Pantoprazole 40 mg EC Tab PO SCH (05:34)
[2017-09-30] MEDS: Levothyroxine 100 MCG TAB PO SCH (05:34)
[2017-09-30] MEDS: Insulin Reg-MEDIUM-Coverage SC SCH ×4 (06:43→22:12)
[2017-09-30] MEDS: Multivitamin Therapeutic Tab PO SCH (08:09)
[2017-09-30] MEDS: Collagenase 250 Units/gm Ointment(30 gm) TOP SCH (10:00)
[2017-09-30] MEDS: POLYETHYLENE GLYCOL 3350 17 GM/Dose PACKET PO SCH (10:29)
[2017-09-30] MEDS: Cefpodoxime (Vantin) 200 mg Tab PO SCH ×2 (10:30→22:05)
--- NOTE | 2017-09-30 12:33 | PN ---
DATE: SUBJECTIVE: The patient is an 87-year-old white male. He was admitted with sepsis and congestive heart failure. The patient has past history of diabetes and hypertension. The patient has cardiac pacemaker, defibrillator. The patient has history of hypothyroidism. He has insulin-dependant diabetes mellitus. This morning, he is comfortable sitting in the chair, waiting to get physical therapy. He is in the Transitional Care Unit. PHYSICAL EXAMINATION: VITAL SIGNS: The patient's pulse is 60 and blood pressure is 128/70. His O2 sat is 93% on 2 liters of oxygen. HEENT: The patient's head is normocephalic. NECK: The thyroid is not enlarged. JVP is flat. Carotid pulses are present. LUNGS: Trachea is central. Breath sounds are vesicular. Scattered crepitations and rhonchi are heard. HEART: Normal sinus rhythm. The patient is in sinus rhythm. is on demand. ABDOMEN: Soft. Liver and spleen not palpable. No tenderness at this time. CENTRAL NERVOUS SYSTEM: The patient is conscious, rational and oriented. No focal neurological deficits. The patient also has history of carcinoma of breast, metastatic disease to the lymph nodes and the pelvis. LABORATORY DATA: His recent blood work showed hemoglobin of 10.5, he had 2 units of blood transfused on this admission. Chemistry; his BUN is 25 and creatinine is 1.0, is much improved. His sodium is 132, potassium is 4.5, and his blood sugar is 164. MEDICATIONS: The patient is on Aranesp 100 mcg once a week. The patient is on Coreg 3.125 mg b.i.d., amiodarone 200 mg daily, DuoNeb inhalation therapy, and iron 324 mg three times a day. The patient is on vitamin D, subcu heparin for prophylaxis. Insulin converge with meals for diabetes mellitus. The patient is on calcium carbonate 500 mg daily and pantoprazole 40 mg daily. The patient is also getting Singulair 10 mg daily, Synthroid 100 mg daily, and multivitamin. The patient is on heart-healthy diet, 2 g sodium. ASSESSMENT AND PLAN: The patient condition is improving. He is in TCU getting physical therapy and rehabilitation, deconditioning. We will follow up. Giselle Polk MD Psychiatric # [id number]
--- NOTE | 2017-09-30 21:06 | PN ---
DATE: 09/30/2017 LOCATION: The patient is in room 313, bed 1. REASON FOR CONSULTATION: Followup, coronary artery disease, history of multiple angioplasties, history of cardiomyopathy, history of AICD insertion, ventricular tachycardia, ventricular fibrillation, diabetes, metastatic prostate cancer, urinary tract infection, deconditioning. SUBJECTIVE: The patient is lying flat in bed without any chest pain, shortness of breath, palpitation. He continues to have pelvic area pain. PHYSICAL EXAMINATION: VITAL SIGNS: Blood pressure 108, 60, respirations 18, pulse 60, temperature 98.1. HEAD: Normocephalic. EYES: Pupils normal. Conjunctivae slightly pale. NECK: JVP low. Carotids are equal. THORAX: AP diameter normal. LUNGS: Clear. CARDIOVASCULAR: S1, S2. ABDOMEN: Soft. Slight tenderness in pelvic area. No organomegaly. Bowel sounds normal. EXTREMITIES: No clubbing. No cyanosis. LABORATORY DATA: WBC 6.3, hemoglobin 10.5, hematocrit 32.8, platelet 266. Random sugar 157. Other laboratories on 09/29/2017: Sodium 132, potassium 4.5, BUN 25, creatinine 1.0. DIAGNSOSES: Sepsis, severe anemia, status post blood transfusion, urosepsis, urinary tract infection, indwelling Avendano catheter, stage IV cancer of prostate with metastasis, status post automated implantable cardioverter-defibrillator, insertion, status post defibrillator went off because of ventricular tachycardia, ventricular fibrillation, status post cardioversion in normals sinus, history of paroxysmal atrial fibrillation, history of deep vein thrombosis, pulmonary embolism. The patient off anticoagulation because of genitourinary bleeding, coronary artery disease, coronary artery bypass graft surgery, multiple stents insertion, mild cardiomyopathy, ischemic type, deconditioning. PLAN: We will continue carvedilol, amiodarone, ferrous sulfate, heparin 5000 units subcutaneously q.12 hours, Protonix 40, Synthroid 100 mcg p.o. daily, furosemide 40 mg b.i.d., Coreg 3.125 b.i.d., amiodarone 200 daily. Clinically, cardiac status is stable. We will follow with you. Mely Walters MD [facility] # [id number]
--- NOTE | 2017-10-01 01:05 | PN ---
DATE: 09/30/2017 SUBJECTIVE: Patient is in bed, in no acute distress, nontoxic. No fevers and no chills. PHYSICAL EXAMINATION: VITAL SIGNS: Temperature is 98, blood pressure is 120/70, respiratory rate of 16. HEENT: Unremarkable. LABORATORY DATA: Laboratory examination, reviewed. ASSESSMENT AND PLAN: An 87-year-old man who is seen earlier this morning in Transitional Care with renal disease, prostate cancer, diabetes, history of hypertension, carbapenem-resistant Klebsiella urinary tract infection and treated with Avycaz in past, with foot ulcer, severe sepsis on this admission, patient with new severe sepsis with Escherichia coli bacteremia, Escherichia coli urine as a source. Completed intravenous antibiotics. Currently on day #10 of p.o. Janine, would complete 14 days. We will follow closely with you. Elliot Hernandez MD
[2017-10-01] MEDS: Albuterol-Ipratrop 3 mg / 0.5 (3 ml) UD IH SCH ×4 (02:53→19:46)
[2017-10-01] MEDS: Pantoprazole 40 mg EC Tab PO SCH (05:14)
[2017-10-01] MEDS: Levothyroxine 100 MCG TAB PO SCH (05:14)
[2017-10-01] MEDS: Insulin Reg-MEDIUM-Coverage SC SCH ×4 (06:35→21:33)
--- NOTE | 2017-10-01 08:13 | CP.PCM.PN ---
Subjective - Date & Time of Evaluation Date of Evaluation: 10/01/17 Time of Evaluation: 07:45 - Subjective Subjective: Patient is seen this morning in room 313 bed 1. He complains of dry heaves and nausea that started this morning. Objective - Vital Signs/Intake and Output Vital Signs (last 24 hours): Temp Pulse Resp BP Pulse Ox 98.1 F 59 L 18 119/56 L 93 L 09/30/17 06:00 09/30/17 17:27 09/30/17 06:00 09/30/17 17:27 09/30/17 06:00 Intake and Output: 10/01/17 10/01/17 06:59 18:59 Intake Total 600 Output Total 750 Balance -150 - Medications Medications: Current Medications Acetaminophen (Tylenol 325mg Tab) 650 mg PO Q6H PRN; Protocol PRN Reason: Fever >100.4 F Albuterol/Ipratropium (Duoneb 3 Mg/0.5 Mg (3 Ml) Ud) 3 ml IH [id number] JEANA PRN Reason: Protocol Last Admin: 10/01/17 07:33 Dose: 3 ml Amiodarone HCl (Cordarone) 200 mg PO DAILY JEANA Last Admin: 09/30/17 10:30 Dose: 200 mg Calcium Carbonate (Oscal) 500 mg PO DAILY JEANA PRN Reason: Protocol Last Admin: 09/30/17 10:29 Dose: 500 mg Carvedilol (Coreg) 3.125 mg PO BID JEANA PRN Reason: Protocol Last Admin: 09/30/17 17:27 Dose: Not Given Cefpodoxime Proxetil (Vantin) 200 mg PO Q12 JEANA PRN Reason: Protocol Last Admin: 09/30/17 22:05 Dose: 200 mg Collagenase (Santyl) 0 gm TOP DAILY JEANA PRN Reason: Protocol Last Admin: 09/30/17 10:00 Dose: 1 appl Darbepoetin Josh (Aranesp) 100 mcg SC ONCE ONE Stop: 09/28/17 08:10 Doxercalciferol (Hectorol) 0.5 mcg PO DAILY JEANA Last Admin: 09/30/17 10:29 Dose: 0.5 mcg Ferrous Sulfate (Feosol) 324 mg PO TID JEANA PRN Reason: Protocol Last Admin: 09/30/17 17:28 Dose: 324 mg Furosemide (Lasix) 40 mg PO 0800,1400 [facility] PRN Reason: Protocol Last Admin: 09/30/17 13:45 Dose: 40 mg Heparin Sodium (Porcine) (Heparin) 5,000 units SC Q12 JEANA PRN Reason: Protocol Last Admin: 09/30/17 21:24 Dose: 5,000 units Insulin Human Regular (Humulin R Med) 0 units SC ACHS JEANA PRN Reason: Protocol Last Admin: 10/01/17 06:35 Dose: Not Given Levothyroxine Sodium (Synthroid) 100 mcg PO 0600 [facility]NA PRN Reason: Protocol Last Admin: 10/01/17 05:14 Dose: 100 mcg Montelukast Sodium (Singulair) 10 mg PO HS JEANA PRN Reason: Protocol Last Admin: 09/30/17 22:05 Dose: 10 mg Multivitamins (Thera Tab) 1 tab PO 0800 [facility] PRN Reason: Protocol Last Admin: 09/30/17 08:09 Dose: 1 tab Ondansetron HCl (Zofran Inj) 4 mg IVP Q4H PRN PRN Reason: Nausea/Vomiting Pantoprazole Sodium (Protonix Ec Tab) 40 mg PO 0600 [facility] PRN Reason: Protocol Last Admin: 10/01/17 05:14 Dose: 40 mg Polyethylene Glycol (Miralax) 17 gm PO DAILY JEANA PRN Reason: Protocol Last Admin: 09/30/17 10:29 Dose: 17 gm Tramadol HCl (Ultram) 50 mg PO Q4H PRN; Protocol PRN Reason: Pain, moderate (4-7) Last Admin: 09/30/17 22:17 Dose: 50 mg - Labs Labs: 09/29/17 06:30 09/29/17 06:30 - Head Exam Head Exam: ATRAUMATIC, NORMOCEPHALIC - Respiratory Exam Respiratory Exam: Decreased Breath Sounds, NORMAL BREATHING PATTERN - Cardiovascular Exam Cardiovascular Exam: +S1, +S2 - GI/Abdominal Exam GI & Abdominal Exam: Soft, Normal Bowel Sounds. 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 We will order Zofran as needed for nausea. continue Protonix. continue Vantin for urinary tract infection as per infectious disease continue physical therapy continue wound care for left heel ulcer as per Dr. Lawrence
[2017-10-01] MEDS: Multivitamin Therapeutic Tab PO SCH (09:00)
[2017-10-01] MEDS: Cefpodoxime (Vantin) 200 mg Tab PO SCH ×2 (10:07→21:14)
[2017-10-01] MEDS: POLYETHYLENE GLYCOL 3350 17 GM/Dose PACKET PO SCH ×2 (10:08→11:16)
--- NOTE | 2017-10-01 10:42 | PN ---
DATE: 10/01/2017 SUBJECTIVE: The patient is in bed, in no acute distress, nontoxic. No fevers. PHYSICAL EXAMINATION: VITAL SIGNS: Temperature is 98, blood pressure is 120/70, respiratory rate of 16. HEENT: Unremarkable. NECK: Supple. LUNGS: Decreased breath sounds. HEART: Normal S1, S2. ABDOMEN: Soft, nontender. LABORATORY EXAMINATION: Reveals the patient to have a white count of 6.3. Review of orders reveals the patient to be on cefepime and cefpodoxime rather. ASSESSMENT AND PLAN: An 87-year-old male seen earlier today in Transitional Care with history of prostate cancer, diabetes, hypertension, carbapenem-resistant Klebsiella urinary tract infection, treated with Avycaz in the past and foot ulcer, admitted with severe sepsis with Escherichia coli bacteremia, Escherichia coli in the urine, now in the Transitional Care, completing his therapy. Today is day #11 of Janine, would complete 14 days. Elliot Hernandez MD
[2017-10-01] MEDS: Collagenase 250 Units/gm Ointment(30 gm) TOP SCH (11:15)
--- NOTE | 2017-10-01 11:21 | CP.PCM.PN ---
Subjective - Date & Time of Evaluation Date of Evaluation: 10/01/17 Time of Evaluation: 09:30 - Subjective Subjective: Podiatry progress note- Dr. Susana Lawrence 87 year old male patient seen at the bedside in [facility] this morning regarding left heel ulceration. Pt does complain of some slight tenderness to the left heel today, denies any problems on the right side. Says PT is going well. Evin f/n/v/c/sob/cp/weakness or dizziness at this time. Objective - Vital Signs/Intake and Output Vital Signs (last 24 hours): Temp Pulse Resp BP Pulse Ox 98.1 F 80 18 104/49 L 93 L 09/30/17 06:00 10/01/17 10:04 09/30/17 06:00 10/01/17 10:04 09/30/17 06:00 Intake and Output: 10/01/17 10/01/17 06:59 18:59 Intake Total 600 Output Total 750 Balance -150 - Medications Medications: Current Medications Acetaminophen (Tylenol 325mg Tab) 650 mg PO Q6H PRN; Protocol PRN Reason: Fever >100.4 F Albuterol/Ipratropium (Duoneb 3 Mg/0.5 Mg (3 Ml) Ud) 3 ml IH [id number] JEANA PRN Reason: Protocol Last Admin: 10/01/17 07:33 Dose: 3 ml Amiodarone HCl (Cordarone) 200 mg PO DAILY [facility] Last Admin: 10/01/17 10:06 Dose: 200 mg Calcium Carbonate (Oscal) 500 mg PO DAILY [facility]EANA PRN Reason: Protocol Last Admin: 10/01/17 10:08 Dose: 500 mg Carvedilol (Coreg) 3.125 mg PO BID JEANA PRN Reason: Protocol Last Admin: 10/01/17 10:04 Dose: Not Given Cefpodoxime Proxetil (Vantin) 200 mg PO Q12 [facility]EANA PRN Reason: Protocol Last Admin: 10/01/17 10:07 Dose: 200 mg Collagenase (Santyl) 0 gm TOP DAILY [facility]EANA PRN Reason: Protocol Last Admin: 10/01/17 11:15 Dose: Not Given Darbepoetin Josh (Aranesp) 100 mcg SC ONCE ONE Stop: 09/28/17 08:10 Doxercalciferol (Hectorol) 0.5 mcg PO DAILY [facility] Last Admin: 10/01/17 10:05 Dose: 0.5 mcg Ferrous Sulfate (Feosol) 324 mg PO TID JEANA PRN Reason: Protocol Last Admin: 10/01/17 10:05 Dose: 324 mg Furosemide (Lasix) 40 mg PO 0800,1400 [facility] PRN Reason: Protocol Last Admin: 10/01/17 09:00 Dose: 40 mg Heparin Sodium (Porcine) (Heparin) 5,000 units SC Q12 [facility] PRN Reason: Protocol Last Admin: 10/01/17 11:01 Dose: 5,000 units Insulin Human Regular (Humulin R Med) 0 units SC ACHS JEANA PRN Reason: Protocol Last Admin: 10/01/17 06:35 Dose: Not Given Levothyroxine Sodium (Synthroid) 100 mcg PO 0600 [facility] PRN Reason: Protocol Last Admin: 10/01/17 05:14 Dose: 100 mcg Montelukast Sodium (Singulair) 10 mg PO HS [facility]EANA PRN Reason: Protocol Last Admin: 09/30/17 22:05 Dose: 10 mg Multivitamins (Thera Tab) 1 tab PO 0800 [facility] PRN Reason: Protocol Last Admin: 10/01/17 09:00 Dose: 1 tab Ondansetron HCl (Zofran Odt) 4 mg PO Q6H PRN; Protocol PRN Reason: Nausea/Vomiting Last Admin: 10/01/17 09:02 Dose: 4 mg Pantoprazole Sodium (Protonix Ec Tab) 40 mg PO 0600 [facility] PRN Reason: Protocol Last Admin: 10/01/17 05:14 Dose: 40 mg Polyethylene Glycol (Miralax) 17 gm PO DAILY [facility] PRN Reason: Protocol Last Admin: 10/01/17 11:16 Dose: Not Given Tramadol HCl (Ultram) 50 mg PO Q4H PRN; Protocol PRN Reason: Pain, moderate (4-7) Last Admin: 09/30/17 22:17 Dose: 50 mg - Labs Labs: 09/29/17 06:30 09/29/17 06:30 - Constitutional Appears: Non-toxic, No Acute Distress - Extremities Exam Extremities Exam: absent: Calf Tenderness Additional comments: B/L lower ext exam: Optifoam to left heel is c/d/i VASC- DP and PT pulses nonpalpable. Temperature gradient cool to cool b/l. No edema noted. No increase in warmth noted to left heel. CFT WNL to all digits b/ l. NEURO: Gross sensation diminished bilaterally. DERM: 3 x 2 cm ulceration noted to left heel - ulcer is noted to have a mixed fibrogranular base; absent periwound erythema or periwound maceration, purulence , fluctuance, malodor, or clinical signs of infection noted at this time. Healed pressure ulcer noted to posterolateral right heel with overlying xerosis. Right 3rd digit noted to have a stable eschar with no drainage, purulence, fluctuance, malodor, surrounding erythema - no clinical signs of infection noted at this time. ORTHO: tenderness noted to palpation left heel ulceration, No pain on palpation right 3rd digit or right heel. - Neurological Exam Neurological Exam: Alert, Awake, Oriented x3 - Psychiatric Exam Psychiatric exam: Normal Affect, Normal Mood Assessment and Plan - Assessment and Plan (Free Text) Assessment: 87 year old male with left heel decubitus ulceration, stable Plan: Patient S&E at the bedside Plan discussed with attending, Dr. Susana Lawrence Chart, labs and vitals reviewed: afebrile, absent leukocytosis Will c/w conservative tx at this time, optifoam applied to left heel Continue multipodus boots at all times in bed Continue pain mgmt per medicine Stable as per podiatry standpoint Podiatry will follow
--- NOTE | 2017-10-01 22:26 | PN ---
DATE: 10/01/2017 LOCATION: The patient is in room 313, bed 1. REASON FOR CONSULTATION AND FOLLOWUP: Coronary artery disease, history of multiple angioplasties, history of cardiomyopathy, history of AICD insertion, ventricular tachycardia, ventricular fibrillation, diabetes, metastatic prostate cancer, urinary tract infection, deconditioning. SUBJECTIVE: The patient still complaining of pain in the pelvic area. Otherwise, had no chest pain, shortness of breath or palpitations. PHYSICAL EXAMINATION: VITAL SIGNS: Blood pressure 104/49, pulse is 80, respirations 18, temperature 98.1. HEENT: Head is normocephalic. Eyes, pupils are normal. Conjunctivae slightly pale. NECK: JVP low. Carotids equal. THORAX: AP diameter normal. LUNGS: No rales. CARDIOVASCULAR: S1 and S2. ABDOMEN: Soft. The patient has pelvic tenderness. Bowel sounds are normal. EXTREMITIES: No clubbing. No cyanosis. LABORATORY DATA: WBC 6.3, hemoglobin 10.5, hematocrit 32.8, and platelets 266. Random sugar 141. Sodium 132, potassium 4.5, BUN 25, and creatinine 1.0. DIAGNOSES: Sepsis, severe anemia, status post blood transfusion, urosepsis, urinary tract infection, indwelling Avendano catheter, stage IV, cancer of prostate with metastasis, status post automated implantable cardioverter-defibrillator insertion, status post defibrillator, went off because of ventricular tachycardia, ventricular fibrillation, status post cardioversion, in normals sinus rhythm, history of paroxysmal atrial fibrillation, deep vein thrombosis, pulmonary embolism, coronary artery disease, status post coronary artery bypass surgery, multiple stents insertion, mild cardiomyopathy, ischemic type, deconditioning. The patient off anticoagulation because of genitourinary bleeding. PLAN: The patient on amiodarone 200 daily, Coreg 3.125 b.i.d., ferrous sulfate 324 mg t.i.d., heparin 5000 units subcutaneously q. 12 hours, furosemide 40 mg b.i.d., Protonix 40 mg daily, Singulair 10 mg at bedtime, Synthroid 100 mcg p.o. daily, Vantin 200 mg p.o. q. 12 hours. We will continue present therapy. We will follow. Mely Walters MD
[2017-10-02] MEDS: Albuterol-Ipratrop 3 mg / 0.5 (3 ml) UD IH SCH ×4 (01:11→19:35)
[2017-10-02] MEDS: Levothyroxine 100 MCG TAB PO SCH (05:27)
[2017-10-02] MEDS: Pantoprazole 40 mg EC Tab PO SCH (05:27)
[2017-10-02] MEDS: Insulin Reg-MEDIUM-Coverage SC SCH ×4 (06:35→21:43)
[2017-10-02] MEDS: Multivitamin Therapeutic Tab PO SCH (08:48)
--- NOTE | 2017-10-02 08:52 | PN ---
DATE: SUBJECTIVE: He is in the [facility] Transitional Care Unit room 313, bed 1. The patient is admitted with sepsis, syncope, congestive heart failure. The patient was kept in the acute medical floor for sepsis and then subsequently admitted to Transitional Care Unit for rehabilitation, deconditioning, physical therapy, for ambulation and care to meet activities of daily living. ALLERGIES: THE PATIENT IS ALLERGIC TO LEVOFLOXACIN AND IODINATED CONTRAST MATERIAL. PAST MEDICAL HISTORY: He has long history of congestive heart failure. He has a pacemaker. The patient has a history of cardiac arrhythmia, he is on medications for it. The patient also has history of diabetes mellitus, chronic lung disease, hypothyroidism. PHYSICAL EXAMINATION: VITAL SIGNS: His pulse is 60, blood pressure 120/46, his respirations are 15. HEENT: Examination of the head is normocephalic. NECK: Thyroid is not enlarged. JVP is flat. LUNGS: Trachea is central. Breath sounds are vesicular. Occasional crepitations are heard bilaterally. HEART: Normal sinus rhythm. S1, S2 present. ABDOMEN: Soft. Liver and spleen not palpable. No tenderness. CENTRAL NERVOUS SYSTEM: The patient is conscious, rational, oriented. ASSESSMENT AND PLAN: His pain level is subsided to level of 2 at this time, but he has p.r.n. medication for pain. He is to continue all his medications. The patient is on Aranesp once a week. The patient is on amiodarone 200 mg daily, Coreg 3.125 mg b.i.d., DuoNeb, q. 6 hours for respiratory treatment. The patient is on iron supplement. The patient is on heparin for prophylaxis. The patient is on Synthroid 100 mcg. The patient is on Lasix 40 mg daily. The patient is on insulin coverage with meals, calcium carbonate, pantoprazole for gastritis and Singulair for asthmatic condition. The patient's clear condition is improving. The patient is getting physical therapy, deconditioning. We will continue current management and follow up with the patient. He is going to get physical therapy daily. Giselle Polk MD
[2017-10-02] MEDS: Cefpodoxime (Vantin) 200 mg Tab PO SCH ×2 (10:48→21:03)
[2017-10-02] MEDS: Collagenase 250 Units/gm Ointment(30 gm) TOP SCH (10:48)
[2017-10-02] MEDS: POLYETHYLENE GLYCOL 3350 17 GM/Dose PACKET PO SCH (10:48)
--- NOTE | 2017-10-02 14:25 | PN ---
DATE: 10/02/2017 LOCATION: The patient is in room 313, bed 1. REASON FOR CONSULTATION AND FOLLOWUP: Coronary artery disease, history of multiple angioplasty, history of cardiomyopathy, history of AICD insertion, ventricular tachycardia, ventricular fibrillation, diabetes, metastatic prostate cancer, urinary tract infection,and deconditioning. SUBJECTIVE: The patient is lying comfortably in bed, without chest pain, shortness of breath or palpitations. Still complains of pelvic area pain. PHYSICAL EXAMINATION: VITAL SIGNS: Blood pressure 122/58, respirations 18, pulse 67, and afebrile. HEENT: Head is normocephalic. Eyes: Pupils normal. Conjunctivae slightly pale. NECK: JVP low. Carotids equal. THORAX: AP diameter normal. LUNGS: Clear. CARDIOVASCULAR: S1 and S2. ABDOMEN: Soft. Normal bowel sounds. EXTREMITIES: No clubbing. No cyanosis. LABORATORY DATA: Lab was done on 09/29/2017 and they were reported on the previous notes. DIAGNOSES: Sepsis, severe anemia, status post blood transfusion, urosepsis, urinary tract infection, indwelling Avendano catheter, stage IV cancer of the prostate with metastasis, status post automated implantable cardioverter-defibrillator reinsertion, status post defibrillator, went off because of ventricular tachycardia, ventricular fibrillation, status post cardioversion, in normal sinus rhythm, history of paroxysmal atrial fibrillation, deep vein thrombosis, pulmonary embolism, coronary artery disease status post coronary artery bypass graft surgery, multiple stents insertion, mild cardiomyopathy ischemic type, and deconditioning. The patient off anticoagulation because of genitourinary bleeding. PLAN: The patient on Carvedilol 3.125 p.o. b.i.d., amiodarone 200 daily, ferrous sulfate 324 mg t.i.d., heparin 5000 units subcu q.12 hours, furosemide 40 b.i.d., Singulair 10 mg at bedtime, and Synthroid 100 mcg daily. We will continue present therapy and continue physical therapy for deconditioning. Mely Walters MD
--- NOTE | 2017-10-02 18:04 | PN ---
DATE: 10/02/2017 SUBJECTIVE: The patient is in bed, in no acute distress, nontoxic. PHYSICAL EXAMINATION: VITAL SIGNS: Temperature is 98, blood pressure is 117/50, respiratory rate of 20, heart rate of 67. HEENT: Unremarkable. NECK: Supple. LUNGS: Decreased breath sounds. HEART: Normal S1 and S2. ABDOMEN: Soft, nontender. LABORATORY EXAMINATION: Reveals a white count of 6.3, hemoglobin of 10, and creatinine is 1.0. ASSESSMENT AND PLAN: This is an 87-year-old male, seen earlier today in Transitional Care with prostate cancer, diabetes, hypertension, carbapenem-resistant Klebsiella urinary tract infection, treated in the past with Avycaz. The patient does have a foot ulcer, admitted with severe sepsis, Escherichia coli bacteremia with Escherichia coli urine as a source in the Transitional Care, day #[address] Polk's note is reviewed. Elliot Hernandez MD
[2017-10-03] MEDS: Albuterol-Ipratrop 3 mg / 0.5 (3 ml) UD IH SCH ×3 (01:46→13:08)
[2017-10-03] MEDS: Pantoprazole 40 mg EC Tab PO SCH (05:20)
[2017-10-03] MEDS: Levothyroxine 100 MCG TAB PO SCH (05:21)
[2017-10-03] MEDS: Insulin Reg-MEDIUM-Coverage SC SCH ×4 (06:54→22:28)
--- NOTE | 2017-10-03 07:55 | CP.PCM.PN ---
Subjective - Date & Time of Evaluation Date of Evaluation: 10/03/17 Time of Evaluation: 07:30 - Subjective Subjective: Patient is doing better. Objective - Vital Signs/Intake and Output Vital Signs (last 24 hours): Temp Pulse Resp BP Pulse Ox 98.2 F 60 18 121/64 99 10/02/17 18:00 10/02/17 18:00 10/02/17 18:00 10/02/17 18:00 10/02/17 18:00 Intake and Output: 10/03/17 10/03/17 06:59 18:59 Intake Total 680 Output Total 1300 Balance -620 - Medications Medications: Current Medications Acetaminophen (Tylenol 325mg Tab) 650 mg PO Q6H PRN; Protocol PRN Reason: Fever >100.4 F Albuterol/Ipratropium (Duoneb 3 Mg/0.5 Mg (3 Ml) Ud) 3 ml IH [id number] JEANA PRN Reason: Protocol Last Admin: 10/03/17 07:19 Dose: 3 ml Amiodarone HCl (Cordarone) 200 mg PO DAILY [facility] Last Admin: 10/02/17 10:47 Dose: 200 mg Calcium Carbonate (Oscal) 500 mg PO DAILY [facility] PRN Reason: Protocol Last Admin: 10/02/17 10:48 Dose: 500 mg Carvedilol (Coreg) 3.125 mg PO BID [facility] PRN Reason: Protocol Last Admin: 10/02/17 17:59 Dose: 3.125 mg Cefpodoxime Proxetil (Vantin) 200 mg PO Q12 [facility]EANA PRN Reason: Protocol Last Admin: 10/02/17 21:03 Dose: 200 mg Collagenase (Santyl) 0 gm TOP DAILY [facility] PRN Reason: Protocol Last Admin: 10/02/17 10:48 Dose: 1 appl Doxercalciferol (Hectorol) 0.5 mcg PO DAILY [facility] Last Admin: 10/02/17 10:47 Dose: 0.5 mcg Ferrous Sulfate (Feosol) 324 mg PO TID [facility]EANA PRN Reason: Protocol Last Admin: 10/02/17 17:59 Dose: 324 mg Furosemide (Lasix) 40 mg PO 0800,1400 [facility] PRN Reason: Protocol Last Admin: 10/02/17 14:39 Dose: 40 mg Heparin Sodium (Porcine) (Heparin) 5,000 units SC Q12 [facility] PRN Reason: Protocol Last Admin: 10/02/17 21:03 Dose: 5,000 units Insulin Human Regular (Humulin R Med) 0 units SC ACHS JEANA PRN Reason: Protocol Last Admin: 10/03/17 06:54 Dose: 1 units Levothyroxine Sodium (Synthroid) 100 mcg PO 0600 [facility] PRN Reason: Protocol Last Admin: 10/03/17 05:21 Dose: 100 mcg Montelukast Sodium (Singulair) 10 mg PO HS [facility]EANA PRN Reason: Protocol Last Admin: 10/02/17 21:03 Dose: 10 mg Multivitamins (Thera Tab) 1 tab PO 0800 [facility] PRN Reason: Protocol Last Admin: 10/02/17 08:48 Dose: 1 tab Ondansetron HCl (Zofran Odt) 4 mg PO Q6H PRN; Protocol PRN Reason: Nausea/Vomiting Last Admin: 10/01/17 09:02 Dose: 4 mg Pantoprazole Sodium (Protonix Ec Tab) 40 mg PO 0600 [facility] PRN Reason: Protocol Last Admin: 10/03/17 05:20 Dose: 40 mg Polyethylene Glycol (Miralax) 17 gm PO DAILY [facility] PRN Reason: Protocol Last Admin: 10/02/17 10:48 Dose: 17 gm Tramadol HCl (Ultram) 50 mg PO Q4H PRN; Protocol PRN Reason: Pain, moderate (4-7) Last Admin: 10/03/17 05:21 Dose: 50 mg - Labs Labs: 09/29/17 06:30 09/29/17 06:30 - Constitutional Appears: No Acute Distress - Head Exam Head Exam: ATRAUMATIC, NORMOCEPHALIC - Respiratory Exam Respiratory Exam: Clear to Ausculation Bilateral, NORMAL BREATHING PATTERN - Cardiovascular Exam Cardiovascular Exam: +S1, +S2 - GI/Abdominal Exam GI & Abdominal Exam: Soft, Normal Bowel Sounds. absent: Tenderness - Neurological Exam Neurological Exam: Alert, Awake, Oriented x3 Assessment and Plan - Assessment and Plan (Free Text) Assessment: Left heel ulcer Proteus Mirabilis and E. 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 continue physical therapy continue current medications continue heart healthy, diabetic diet
[2017-10-03] MEDS: Multivitamin Therapeutic Tab PO SCH (08:05)
--- NOTE | 2017-10-03 10:14 | PN ---
DATE: 10/03/2017 TIME: 0700 hours. LOCATION: The patient is in Transitional Care Unit in room 313, bed #1. SUBJECTIVE: The patient is an 87-year-old male known to me with longstanding decubitus ulcers on the posterior aspect of both heels. He was admitted with acute sepsis, syncope, congestive heart failure, he has undergone medication, antibiotic and cardiac management. He has spent past week in the Transitional Care Unit. During this time, he has undergone continued care of his decubitus, which had begun late last summer and is improved. He has been rehabbing strenuously in an effort to discharge this week and be able to go home. He is still uncertain whether the discharge planning involves going to home or going to [facility]. OBJECTIVE: GENERAL: The patient is sitting up in bed this morning. He reclines and we are able to do our examination. He is alert and oriented x3. He is in no acute distress at this time. He is communicative and responsive. VITAL SIGNS: Stable. EXTREMITIES: His both lower extremities are without changes. There is negative edema, circulation status is reduced. Muscle and skin atrophy is noted. There is no erythema, no edema, no heat, no cellulitis. The right posterior margin heel decubitus ulcer remains healed from last week, the right third toe partial amputation remains healed with a dry eschar, no cellulitis and no discharge noted. The left decubitus heel remains unhealed. There remains a full-thickness decubitus ulcer approximately 1.5 x 0.9 cm with depth of about 0.3 cm. There is a firm epithelializing edge with minimal fibrin. There appears to be forming a dry eschar, which is a good sign of healing. There is zero surrounding erythema. There is zero edema. There is zero discharge noted on the left heel. ASSESSMENT AND PLAN: The patient has been doing quite well during this most recent hospitalization and TCU time with his heels. He has maintained religiously the heel protectors and decubitus protectors while in bed. He is ambulating and getting rehab several times a day without any discomfort or pain in either of the heels. We will maintain a local wound care with no surgical intervention at this time. We will use a hydrogel dressing with a Optifoam bandage only on the left heel; the right heel and right third toe required no bandaging. We will await the patient's discharge and we will follow up with the patient at home if he is discharged home or we will follow with the patient after his rehab at [facility]. If that is the case in terms of wound care, orders upon discharge, it should be cleaning the left heel wound with sterile saline and wound wash and then drying and applying hydrogel and Optifoam bandage to the wound on the left heel to be repeated optimally one time per day, if necessary once every other day and to maintain the use of the heel protectors at all times when sitting on footstool or lying in bed to prevent recurrence of heel ulcers. He should wear the anti-decubitus booties in bed on both heels. We will follow the patient after discharge at home. Sixto Lawrence DPM
[2017-10-03] MEDS: POLYETHYLENE GLYCOL 3350 17 GM/Dose PACKET PO SCH (10:39)
[2017-10-03] MEDS: Collagenase 250 Units/gm Ointment(30 gm) TOP SCH (10:40)
[2017-10-03] MEDS: Cefpodoxime (Vantin) 200 mg Tab PO SCH ×2 (10:41→21:35)
--- NOTE | 2017-10-03 10:45 | PN ---
DATE: 10/02/2017 Ziggy Amador was seen on the floor. The perianal infection has resolved. There is no abscess. There is no deep abscess. There is a small sacral excoriations as being treated with pressure foam. I will sign off. Please recall if necessary. David Bishop MD
[2017-10-03] MEDS: Lidocaine 5% Patch TD SCH (12:45)
--- NOTE | 2017-10-03 13:39 | PN ---
DATE: 10/03/2017 SUBJECTIVE: The patient is in bed in no acute distress, and nontoxic. PHYSICAL EXAMINATION: VITAL SIGNS: On exam, temperature is 98, blood pressure is 120/70, and respiratory rate of 18. HEENT: Examination of HEENT is unremarkable. NECK: Supple. RESPIRATORY: Lungs have decreased breath sounds. CARDIOVASCULAR: Heart exam is normal S1 and S2. GASTROINTESTINAL: Abdominal examination is soft and nontender. LABORATORY DATA: Laboratory examination reveals a white count of 6.3, hemoglobin of 10 and platelets of 266. Chemistries are noted. ASSESSMENT AND PLAN: This is an 87-year-old male who was seen in room 313, early this morning, who is in Transitional Care, prostate cancer, diabetes, history of hypertension, carbapenem-resistant Klebsiella urinary tract infection, treated with Avycaz in the past with a foot ulcer, admitted with severe sepsis on admission with no severe sepsis with Escherichia coli bacteremia. and Escherichia coli in the urine. Today is day number 11 of p.ang Mehta, would complete 14 days. Elliot Hernandez MD
--- NOTE | 2017-10-03 14:56 | PN ---
DATE: 10/03/2017 REASON FOR CONSULTATION: Coronary artery disease status post AICD, urinary tract infection, deconditioning of the body, and Cardiology followup. SUBJECTIVE: The patient denies any chest pain, shortness of breath, or any palpitations. Feels a lot better. PHYSICAL EXAMINATION: GENERAL: Not in apparent distress. Sitting in the bedside. VITAL SIGNS: Temperature afebrile, heart rate , and blood pressure 120/62. HEENT: PERRLA. Extraocular muscles intact. NECK: Supple. No carotid bruits or thyromegaly. CHEST: Clear to auscultation. HEART: S1 and S2, regular. ABDOMEN: Soft. EXTREMITIES: Clubbing and cyanosis negative. LABORATORY DATA: WBC 6.3, hemoglobin 10.5, hematocrit 32.8, and platelet count 266. Chemistry shows sodium 132, potassium 4.5, chloride 98, carbon dioxide 29, anion gap of 9, BUN 25, and creatinine 1.0. IMPRESSION: Sepsis, urinary tract infection, anemia, status post packed right blood cell transfusion, urinary tract infection, indwelling Avendano catheter, stage IV prostate cancer with metastasis, coronary artery disease, status post coronary artery bypass graft surgery, status post pre coronary artery bypass graft percutaneous transluminal coronary angioplasty, status post automated implantable cardioverter-defibrillator, history of paroxysmal atrial fibrillation, history of deep vein thrombosis, history of pulmonary embolism, off anticoagulation because of genitourinary bleed, mild cardiomyopathy, last echo showed ejection fraction of 45%. RECOMMENDATIONS: Continue Coreg. Continue amiodarone. Continue heparin. Initially, amiodarone was loaded because the patient has VT and defibrillator fired, after that the patient stable. Continue current treatment, continue rehab. CVS status is stable. We will follow with you. Thank you Dr. Polk for providing us the opportunity in taking care of the patient, Ziggy Amador. Mely Chavarria MD
[2017-10-04] MEDS: Albuterol-Ipratrop 3 mg / 0.5 (3 ml) UD IH SCH ×3 (02:33→13:35)
[2017-10-04] MEDS: Pantoprazole 40 mg EC Tab PO SCH (05:40)
[2017-10-04] MEDS: Levothyroxine 100 MCG TAB PO SCH (05:40)
[2017-10-04] MEDS: Insulin Reg-MEDIUM-Coverage SC SCH ×5 (06:57→22:58)
[2017-10-04] MEDS: Multivitamin Therapeutic Tab PO SCH (08:11)
--- NOTE | 2017-10-04 08:27 | CP.PCM.PN ---
Subjective - Date & Time of Evaluation Date of Evaluation: 10/04/17 Time of Evaluation: 07:45 - Subjective Subjective: Patient is seen this morning in room 313 bed 1. He is feeling nauseus this morning and complains of severe back pain around the left hip area. Objective - Vital Signs/Intake and Output Vital Signs (last 24 hours): Temp Pulse Resp BP Pulse Ox 98.4 F 61 20 113/44 L 95 10/03/17 16:00 10/03/17 17:22 10/03/17 16:00 10/04/17 08:11 10/03/17 16:19 Intake and Output: 10/04/17 10/04/17 06:59 18:59 Intake Total 380 Output Total 1300 Balance -920 - Medications Medications: Current Medications Acetaminophen (Tylenol 325mg Tab) 650 mg PO Q6H PRN; Protocol PRN Reason: Fever >100.4 F Albuterol/Ipratropium (Duoneb 3 Mg/0.5 Mg (3 Ml) Ud) 3 ml IH [id number] JEANA PRN Reason: Protocol Last Admin: 10/04/17 07:28 Dose: 3 ml Amiodarone HCl (Cordarone) 200 mg PO DAILY JEANA Last Admin: 10/03/17 11:00 Dose: 200 mg Calcium Carbonate (Oscal) 500 mg PO DAILY JEANA PRN Reason: Protocol Last Admin: 10/03/17 12:06 Dose: 500 mg Carvedilol (Coreg) 3.125 mg PO BID JEANA PRN Reason: Protocol Last Admin: 10/03/17 17:22 Dose: 3.125 mg Cefpodoxime Proxetil (Vantin) 200 mg PO Q12 JEANA PRN Reason: Protocol Last Admin: 10/03/17 21:35 Dose: 200 mg Collagenase (Santyl) 0 gm TOP DAILY JEANA PRN Reason: Protocol Last Admin: 10/03/17 10:40 Dose: Not Given Doxercalciferol (Hectorol) 0.5 mcg PO DAILY JEANA Last Admin: 10/03/17 12:07 Dose: 0.5 mcg Ferrous Sulfate (Feosol) 324 mg PO TID JEANA PRN Reason: Protocol Last Admin: 10/03/17 17:22 Dose: 324 mg Furosemide (Lasix) 40 mg PO 0800,1400 JEANA PRN Reason: Protocol Last Admin: 10/04/17 08:11 Dose: 40 mg Heparin Sodium (Porcine) (Heparin) 5,000 units SC Q12 JEANA PRN Reason: Protocol Last Admin: 10/03/17 21:34 Dose: 5,000 units Hydromorphone HCl (Dilaudid) 0.5 mg SC Q4H PRN PRN Reason: Pain, severe (8-10) Insulin Human Regular (Humulin R Med) 0 units SC ACHS JEANA PRN Reason: Protocol Last Admin: 10/04/17 06:57 Dose: 1 units Levothyroxine Sodium (Synthroid) 100 mcg PO 0600 JEANA PRN Reason: Protocol Last Admin: 10/04/17 05:40 Dose: 100 mcg Lidocaine (Lidoderm) 1 ea TD DAILY JEANA PRN Reason: Protocol Last Admin: 10/03/17 12:45 Dose: 1 ea Montelukast Sodium (Singulair) 10 mg PO HS JEANA PRN Reason: Protocol Last Admin: 10/03/17 21:35 Dose: 10 mg Multivitamins (Thera Tab) 1 tab PO 0800 JEANA PRN Reason: Protocol Last Admin: 10/04/17 08:11 Dose: 1 tab Ondansetron HCl (Zofran Odt) 4 mg PO Q6H PRN; Protocol PRN Reason: Nausea/Vomiting Last Admin: 10/01/17 09:02 Dose: 4 mg Pantoprazole Sodium (Protonix Ec Tab) 40 mg PO 0600 JEANA PRN Reason: Protocol Last Admin: 10/04/17 05:40 Dose: 40 mg Polyethylene Glycol (Miralax) 17 gm PO DAILY JEANA PRN Reason: Protocol Last Admin: 10/03/17 10:39 Dose: 17 gm - Labs Labs: 09/29/17 06:30 09/29/17 06:30 - Constitutional Appears: No Acute Distress - Head Exam Head Exam: ATRAUMATIC, NORMOCEPHALIC - Respiratory Exam Respiratory Exam: Decreased Breath Sounds, NORMAL BREATHING PATTERN - Cardiovascular Exam Cardiovascular Exam: +S1, +S2 - GI/Abdominal Exam GI & Abdominal Exam: Soft, Normal Bowel Sounds - Neurological Exam Neurological Exam: Alert, Awake, Oriented x3 Assessment and Plan - Assessment and Plan (Free Text) Assessment: Back pain Nausea Proteus mirabilis and E. coli urinary tract infection Chronic heart failure COPD DMII Hypothyroidism Metastatic prostate cancer Plan: Patient is complaining of nausea this morning. He says he started having the nausea after he took Tramadol for pain. Nausea maybe secondary to the tramadol. Will discontinue Tramadol and start Dilaudid 0.5 mg as needed for pain. continue other maintenance medications. Patient says he feels short of breath when ambulating. He also complains of generalized weakness. He would benefit from further rehab at a [facility].
[2017-10-04 09:08] LABS: BASO # 0.04 K/mm3 (0.0-2.0); BASO % 0.6 % (0.0-3.0); EOS # 0.2 (0.0-0.7); EOS % 2.6 % (1.5-5.0); GRAN # 4.18 (1.4-6.5); GRAN % 67.3 % (50.0-68.0); HEMATOCRIT 32.8 % (42.0-52.0); LYMPH # 1.1 (1.2-3.4); LYMPH % 17.8 % (22.0-35.0); MEAN CELL VOLUME 87.5 fl (80.0-105.0); MEAN CORPUSCULAR HEMOGLOBIN 27.2 pg (25.0-35.0); MEAN CORPUSCULAR HGB CONC 31.1 g/dl (31.0-37.0); MEAN PLATELET VOLUME 9.6 fl (7.0-11.0); MONO # 0.7 (0.1-0.6); MONO % 11.7 % (1.0-6.0); RED CELL DISTRIBUTION WIDTH 16.9 % (11.5-14.5); WHITE BLOOD COUNT 6.2 10^3/ul (4.5-11.0)
[2017-10-04 09:31] LABS: ALB/GLOB RATIO 1.1 (1.1-1.8); ALKALINE PHOSPHATASE 231 U/L (38-126); ALT/SGPT 60 U/L (7-56); AST/SGOT 68 U/L (17-59); BILIRUBIN,TOTAL 0.4 mg/dL (0.2-1.3); BLOOD UREA NITROGEN 28 mg/dL (7-21); CALCIUM 8.3 mg/dL (8.4-10.5); CARBON DIOXIDE 29 mmol/L (21-33); CHLORIDE 97 mmol/L (98-107); GFR AFRICAN-AMERICAN > 60; GLUCOSE,RANDOM 161 mg/dL (70-110); POTASSIUM 5.4 mmol/L (3.6-5.0); SODIUM 130 mmol/L (132-148); TOTAL PROTEIN 5.2 g/dL (5.8-8.3)
[2017-10-04] MEDS: Lidocaine 5% Patch TD SCH (10:42)
[2017-10-04] MEDS: POLYETHYLENE GLYCOL 3350 17 GM/Dose PACKET PO SCH (10:43)
[2017-10-04] MEDS: Cefpodoxime (Vantin) 200 mg Tab PO SCH (10:43)
[2017-10-04] MEDS: Collagenase 250 Units/gm Ointment(30 gm) TOP SCH (10:43)
--- NOTE | 2017-10-04 12:19 | CP.PCM.PN ---
Subjective - Date & Time of Evaluation Date of Evaluation: 10/04/17 Time of Evaluation: 12:14 - Subjective Subjective: POdiatry Progress Note - Dr. aLwrence 87 year old male seen at bedside for left heel ulceration. Patient is seen resting comfortably in bed, in NAD, and AA0x3. Patient reports that he is having nausea and chills last night. He denies of any fever, sob, chest pains, vomiting. He has no other pedal complaints at this time. Objective - Vital Signs/Intake and Output Vital Signs (last 24 hours): Temp Pulse Resp BP Pulse Ox 98.4 F 59 L 20 106/45 L 95 10/03/17 16:00 10/04/17 10:40 10/03/17 16:00 10/04/17 10:40 10/03/17 16:19 Intake and Output: 10/04/17 10/04/17 06:59 18:59 Intake Total 380 Output Total 1300 Balance -920 - Medications Medications: Current Medications Acetaminophen (Tylenol 325mg Tab) 650 mg PO Q6H PRN; Protocol PRN Reason: Fever >100.4 F Albuterol/Ipratropium (Duoneb 3 Mg/0.5 Mg (3 Ml) Ud) 3 ml IH [id number] JEANA PRN Reason: Protocol Last Admin: 10/04/17 07:28 Dose: 3 ml Amiodarone HCl (Cordarone) 200 mg PO DAILY [facility] Last Admin: 10/04/17 10:40 Dose: 200 mg Calcium Carbonate (Oscal) 500 mg PO DAILY JEANA PRN Reason: Protocol Last Admin: 10/04/17 10:43 Dose: 500 mg Carvedilol (Coreg) 3.125 mg PO BID JEANA PRN Reason: Protocol Last Admin: 10/04/17 10:40 Dose: 3.125 mg Cefpodoxime Proxetil (Vantin) 200 mg PO Q12 JEANA PRN Reason: Protocol Last Admin: 10/04/17 10:43 Dose: 200 mg Collagenase (Santyl) 0 gm TOP DAILY JEANA PRN Reason: Protocol Last Admin: 10/04/17 10:43 Dose: 1 appl Doxercalciferol (Hectorol) 0.5 mcg PO DAILY JEANA Last Admin: 10/04/17 10:41 Dose: 0.5 mcg Ferrous Sulfate (Feosol) 324 mg PO TID JEANA PRN Reason: Protocol Last Admin: 10/04/17 10:41 Dose: 324 mg Furosemide (Lasix) 40 mg PO 0800,1400 JEANA PRN Reason: Protocol Last Admin: 10/04/17 08:11 Dose: 40 mg Heparin Sodium (Porcine) (Heparin) 5,000 units SC Q12 JEANA PRN Reason: Protocol Last Admin: 10/04/17 10:44 Dose: 5,000 units Hydromorphone HCl (Dilaudid) 0.5 mg SC Q4H PRN PRN Reason: Pain, severe (8-10) Insulin Human Regular (Humulin R Med) 0 units SC ACHS JEANA PRN Reason: Protocol Last Admin: 10/04/17 06:57 Dose: 1 units Levothyroxine Sodium (Synthroid) 100 mcg PO 0600 JEANA PRN Reason: Protocol Last Admin: 10/04/17 05:40 Dose: 100 mcg Lidocaine (Lidoderm) 1 ea TD DAILY JEANA PRN Reason: Protocol Last Admin: 10/04/17 10:42 Dose: 1 ea Montelukast Sodium (Singulair) 10 mg PO HS JEANA PRN Reason: Protocol Last Admin: 10/03/17 21:35 Dose: 10 mg Multivitamins (Thera Tab) 1 tab PO 0800 JEANA PRN Reason: Protocol Last Admin: 10/04/17 08:11 Dose: 1 tab Ondansetron HCl (Zofran Odt) 4 mg PO Q6H PRN; Protocol PRN Reason: Nausea/Vomiting Last Admin: 10/01/17 09:02 Dose: 4 mg Pantoprazole Sodium (Protonix Ec Tab) 40 mg PO 0600 JEANA PRN Reason: Protocol Last Admin: 10/04/17 05:40 Dose: 40 mg Polyethylene Glycol (Miralax) 17 gm PO DAILY JEANA PRN Reason: Protocol Last Admin: 10/04/17 10:43 Dose: 17 gm - Labs Labs: 10/04/17 09:00 10/04/17 09:00 - Constitutional Appears: Well, Non-toxic, No Acute Distress - Extremities Exam Additional comments: Optifoam to left heel clean/dry/intact VASC: DP and PT pulses nonpalpable. Temperature gradient cool to cool b/l. No edema noted. No increase in warmth noted to left heel. CFT WNL to all digits b/ l. NEURO: Gross sensation diminished bilaterally. DERM: 3 x 2 cm ulceration noted to left heel - ulcer is noted to have a mixed fibrogranular base; absent periwound erythema or periwound maceration, purulence , fluctuance, malodor, or clinical signs of infection noted at this time. Healed pressure ulcer noted to posterolateral right heel with overlying xerosis. Right 3rd digit noted to have a stable eschar with no drainage, purulence, fluctuance, malodor, surrounding erythema - no clinical signs of infection noted at this time. ORTHO: Pain on palpation left heel ulceration, No pain on palpation right 3rd digit or right heel. - Neurological Exam Neurological Exam: Alert, Awake, Oriented x3 - Psychiatric Exam Psychiatric exam: Normal Affect, Normal Mood Assessment and Plan - Assessment and Plan (Free Text) Assessment: 87 year old male with left heel decubitus ulceration, stable Plan: Patient seen and evaluated Discussed with attending, Dr. Lawrence afebrile, absent leukocytosis Continue local wound care left heel - optifoam Continue multipodus boots at all times in bed Continue pain mgmt per medicine Stable per podiatry standpoint Podiatry will continue to follow patient while in house
--- NOTE | 2017-10-04 13:53 | PN ---
DATE: 10/04/2017 LOCATION: The patient is in room number 313, bed 1. REASON FOR CONSULTATION AND FOLLOWUP: Coronary artery disease, status post automatic implantable cardioverter-defibrillator, urinary tract infection, and deconditioning of body. SUBJECTIVE: The patient is sitting in chair. Denies any chest pain, shortness of breath or palpitation. The patient is getting physical therapy. The patient with amnesia. PHYSICAL EXAMINATION: VITAL SIGNS: Blood pressure is 113/44, respirations are 18, and pulse is 60. The patient is afebrile. HEENT: Head is normocephalic. Eyes: Pupils are normal. Conjunctivae are slightly pale. NECK: JVP low. Carotids are equal. THORAX: AP diameter normal. LUNGS: Clear. CARDIOVASCULAR: S1 and S2. ABDOMEN: Soft and nontender. No organomegaly. Bowel sounds are normal. EXTREMITIES: No clubbing. No cyanosis. LABORATORY DATA: WBC of 11.2, hemoglobin of 10.2, hematocrit of 32.8, and platelets of 267. Sodium of 130, potassium of 5.4, BUN of 28, and creatinine of 1.3. AST of 68, ALT of 60, and alkaline phosphatase of 231. Total protein of 5.2 and albumin of 2.8. DIAGNOSES: Sepsis, urinary tract infection, anemia, status post packed cells blood transfusion, indwelling Avendano catheter, stage IV, prostatic carcinoma with metastasis, coronary artery disease, status post coronary artery bypass surgery, status post coronary angioplasty sent insertion, automated implantable cardioverter-defibrillator insertion, history of paroxysmal atrial fibrillation, deep vein thrombosis, pulmonary embolism, off anticoagulation because of genitourinary bleeding, mild cardiomyopathy, and last echocardiography showed left ventricular ejection fraction of 45%, and hyperkalemia. The patient also had an episode of ventricular tachycardia in the past when automated implantable cardioverter-defibrillator fired. PLAN: The plan is to repeat potassium level, amiodarone 200 mg daily and carvedilol 3.125 b.i.d., ferrous sulfate 324 mg t.i.d., and furosemide 40 mg p.o. b.i.d. Mely Walters MD [facility] # [id number]
--- NOTE | 2017-10-04 22:03 | PN ---
DATE: 10/04/2017 SUBJECTIVE: The patient is seen early this morning, in no acute distress. PHYSICAL EXAMINATION: VITAL SIGNS: Temperature is 98, blood pressure is 120/70, and respiratory rate is 16. HEENT: Unremarkable. NECK: Supple. LUNGS: Decreased breath sounds. HEART: Normal S1 and S2. ABDOMEN: Soft and nontender. LABORATORY DATA: Reveals a white count of 6.2, hemoglobin of 10, BUN of 28, and creatinine of 1.3. ASSESSMENT AND PLAN: This is an 87-year-old man with prostate cancer, diabetes, history of gastroesophageal reflux disease, history of hypertension with carbapenem-resistant Klebsiella urinary tract infection and he was treated with Avycaz in the past with a foot ulcer, admitted with severe sepsis and Escherichia coli bacteremia and Escherichia coli in the urine and the patient's today is day number 12 of p.o. Vantin. Had some feelings of nausea, we will discontinue the Vantin and see if the nausea improves. The patient has had adequate therapy. Elliot Hernandez MD
[2017-10-05] MEDS: Albuterol-Ipratrop 3 mg / 0.5 (3 ml) UD IH SCH ×4 (02:14→20:06)
[2017-10-05] MEDS: Levothyroxine 100 MCG TAB PO SCH (05:41)
[2017-10-05] MEDS: Pantoprazole 40 mg EC Tab PO SCH (05:41)
[2017-10-05] MEDS: HYDROmorphone 0.5 mg/0.5 ml ISec SC PRN ×3 (06:40→23:02)
[2017-10-05] MEDS: Insulin Reg-MEDIUM-Coverage SC SCH ×4 (06:57→22:43)
[2017-10-05 07:58] LABS: ALKALINE PHOSPHATASE 244 U/L (38-126); ALT/SGPT 60 U/L (7-56); AST/SGOT 78 U/L (17-59); BILIRUBIN,TOTAL 0.5 mg/dL (0.2-1.3); BLOOD UREA NITROGEN 28 mg/dL (7-21); CALCIUM 8.2 mg/dL (8.4-10.5); CARBON DIOXIDE 31 mmol/L (21-33); CHLORIDE 97 mmol/L (98-107); GFR AFRICAN-AMERICAN > 60; GLUCOSE,RANDOM 175 mg/dL (70-110); SODIUM 132 mmol/L (132-148); TOTAL PROTEIN 5.3 g/dL (5.8-8.3)
[2017-10-05 08:12] LABS: ALB/GLOB RATIO 1.1 (1.1-1.8)
[2017-10-05] MEDS: Multivitamin Therapeutic Tab PO SCH (08:40)
[2017-10-05] MEDS: POLYETHYLENE GLYCOL 3350 17 GM/Dose PACKET PO SCH (09:28)
[2017-10-05] MEDS: Lidocaine 5% Patch TD SCH (09:29)
[2017-10-05] MEDS: Collagenase 250 Units/gm Ointment(30 gm) TOP SCH (09:33)
--- NOTE | 2017-10-05 09:46 | PN ---
DATE: SUBJECTIVE: The patient is in the [facility] Transitional Care Unit. The patient is admitted for antibiotic treatment for sepsis. The patient has history of diabetes. The patient has history of congestive heart failure. The patient also history of cancer of the prostate with metastatic disease to lymph nodes and to the colon. The patient is seen this morning sitting up in the bed and eating his breakfast. He has less nausea and vomiting. His pain continues to bother him in his lower back. PHYSICAL EXAMINATION: VITAL SIGNS: Pulse is 60, blood pressure 130/60, respirations 16, and the patient's temperature is 97.9. LUNGS: Scattered rales, but no localizing signs. HEART: Normal sinus rhythm. The patient has a pacemaker. Pulse is 60 per minute. ABDOMEN: Soft. Liver and spleen are nonpalpable. No tenderness noted. The patient has pain in the lower back involving the musculoskeletal areas. CENTRAL NERVOUS SYSTEMS: The patient is conscious, rational, oriented, and no focal deficit. LABORATORY DATA: His blood work from yesterday, the hemoglobin was 10.2. The patient's chemistry; potassium was 5.2. GFR is greater than 60. BUN is 28. Creatinine is 1.3. The patient's random glucose was 175. His 244, this could be arising from the bone. His AST and ALT . MEDICATIONS: Consist of insulin coverage with meals. The patient is on pain medications Dilaudid 0.5 mg subcutaneously q.4 hours. The patient is on amiodarone 400 mg daily, and Coreg 3.125 mg b.i.d. The patient is ferrous sulfate for anemia. The patient had blood transfusion while he was in the hospital. He is on heparin for subcutaneous for prophylaxis, insulin coverage as mentioned, and Lasix 40 mg once a day. The patient is on pantoprazole 40 mg daily and Singulair 10 mg daily. The patient is on heart healthy diet, diabetic. ASSESSMENT AND PLAN: His overall condition is improving gradually, but the patient needs further physical therapy rehabilitation, but the long-term facilities would not accept the patient at this time for any further physical therapy and rehab. His antibiotics are discontinued at this time. We will continue current management and hope for discharge planning for tomorrow. Giselle Polk MD [facility] # [id number]
--- NOTE | 2017-10-05 21:00 | PN ---
DATE: 10/05/2017 SUBJECTIVE: The patient is in bed in no acute distress, nontoxic. PHYSICAL EXAMINATION: VITAL SIGNS: Temperature is 98, blood pressure is 117/70, respiratory rate of 18, heart rate of 60. HEENT: Examination of HEENT is unremarkable. NECK: Supple. LUNGS: Have decreased breath sounds. HEART: Normal S1, S2. ABDOMEN: Soft, nontender. LABORATORY EXAMINATION: Reveals a white count of 6.2, hemoglobin of 10, platelets of 267. BUN of 28, creatinine of 1.3, and alk phos is 244. Microbiology is noted. Currently, the patient is off of antibiotics. Dr. Polk's note is reviewed. ASSESSMENT/PLAN: An 87-year-old male with prostate cancer, diabetes, history of gastroesophageal reflux, history of hypertension, and carbapenem-resistant klebsiella urinary tract infection, treated with Avycaz and then admitted with severe sepsis, E. coli bacteremia, E. coli in the urine, completed 12 days of p.o. Vantin. Currently off of antibiotics. No nausea at this point. We will follow with you. Elliot Hernandez MD
--- NOTE | 2017-10-05 22:51 | PN ---
DATE: 10/05/2017 LOCATION: The patient is in room 313, bed 1. REASON FOR CONSULTATION AND FOLLOWUP: Coronary artery disease, status post AICD insertion, urinary tract infection, deconditioning. SUBJECTIVE: The patient complains pelvic area pain, otherwise denies chest pain, shortness of breath, or palpitations . The patient continues to get physical therapy without any cardiac symptoms. PHYSICAL EXAMINATION: VITAL SIGNS: Blood pressure 116/42, respirations 18, pulse 63, temperature 98. HEENT: Head is normocephalic. Eyes: Pupils normal, conjunctivae slightly pale. NECK: JVP low. Carotids equal. THORAX: AP diameter normal. LUNGS: Clear. ABDOMEN: Soft, no organomegaly. EXTREMITIES: No clubbing. No cyanosis. LABS: WBC 6.2, hemoglobin 10.2, hematocrit 32.2, platelets 267. Sodium 132, potassium 4.0, BUN 28, creatinine 1.3, and sugar 109. AST 70, ALT 60, alkaline phosphatase 244. DIAGNOSES: Sepsis; urinary tract infection; anemia, status post packed red blood transfusion; indwelling Avendano catheter; stage IV prostatic carcinoma with metastasis; coronary artery disease, status post coronary bypass surgery, status post coronary angioplasty and stent insertion, status post AICD insertion; history of paroxysmal atrial fibrillation; deep vein thrombosis; pulmonary embolism, off anticoagulation because of genitourinary bleeding; mild cardiomyopathy, on last echo, ejection fraction was 45%. The patient also has episode of ventricular tachycardia, cardioverted by defibrillator. Yesterday, the patient had hyperkalemia, today potassium is 5.0. PLAN: The patient is to continue with physical therapy, he has no cardiac symptoms on exertion, and we will continue present medications and we will follow. Mely Walters MD
[2017-10-06] MEDS: Albuterol-Ipratrop 3 mg / 0.5 (3 ml) UD IH SCH ×3 (01:51→13:12)
[2017-10-06] MEDS: Levothyroxine 100 MCG TAB PO SCH (06:03)
[2017-10-06] MEDS: Pantoprazole 40 mg EC Tab PO SCH (06:03)
[2017-10-06] MEDS: HYDROmorphone 0.5 mg/0.5 ml ISec SC PRN ×3 (06:03→17:08)
[2017-10-06 06:43] VITALS: RESP 18
[2017-10-06] MEDS: Insulin Reg-MEDIUM-Coverage SC SCH ×3 (07:44→17:12)
[2017-10-06] MEDS: Multivitamin Therapeutic Tab PO SCH (08:18)
--- NOTE | 2017-10-06 08:33 | CP.PCM.PN ---
Subjective - Date & Time of Evaluation Date of Evaluation: 10/06/17 Time of Evaluation: 08:10 - Subjective Subjective: Patient is seen this morning in room 313 bed 1. He is complaining of severe lower back pain. He also says that he feels weak. Objective - Vital Signs/Intake and Output Vital Signs (last 24 hours): Temp Pulse Resp BP Pulse Ox 98.4 F 68 18 108/65 95 10/06/17 06:00 10/06/17 06:00 10/06/17 06:00 10/06/17 08:15 10/06/17 06:00 Intake and Output: 10/06/17 10/06/17 06:59 18:59 Intake Total 0 Output Total 1000 Balance -1000 - Medications Medications: Current Medications Acetaminophen (Tylenol 325mg Tab) 650 mg PO Q6H PRN; Protocol PRN Reason: Fever >100.4 F Albuterol/Ipratropium (Duoneb 3 Mg/0.5 Mg (3 Ml) Ud) 3 ml IH [id number] JEANA PRN Reason: Protocol Last Admin: 10/06/17 07:29 Dose: 3 ml Amiodarone HCl (Cordarone) 200 mg PO DAILY JEANA Last Admin: 10/05/17 09:31 Dose: 200 mg Calcium Carbonate (Oscal) 500 mg PO DAILY JEANA PRN Reason: Protocol Last Admin: 10/05/17 09:29 Dose: 500 mg Carvedilol (Coreg) 3.125 mg PO BID JEANA PRN Reason: Protocol Last Admin: 10/05/17 17:20 Dose: 3.125 mg Collagenase (Santyl) 0 gm TOP DAILY JEANA PRN Reason: Protocol Last Admin: 10/05/17 09:33 Dose: 1 appl Doxercalciferol (Hectorol) 0.5 mcg PO DAILY JEANA Last Admin: 10/05/17 09:32 Dose: 0.5 mcg Ferrous Sulfate (Feosol) 324 mg PO TID JEANA PRN Reason: Protocol Last Admin: 10/05/17 17:21 Dose: 324 mg Furosemide (Lasix) 40 mg PO 0800,1400 JEANA PRN Reason: Protocol Last Admin: 10/06/17 08:15 Dose: 40 mg Hydromorphone HCl (Dilaudid) 0.5 mg SC Q4H PRN PRN Reason: Pain, severe (8-10) Last Admin: 12/22/17 06:03 Dose: 0.5 mg Insulin Human Regular (Humulin R Med) 0 units SC ACHS JEANA PRN Reason: Protocol Last Admin: 10/06/17 07:44 Dose: 1 units Levothyroxine Sodium (Synthroid) 100 mcg PO 0600 JEANA PRN Reason: Protocol Last Admin: 10/06/17 06:03 Dose: 100 mcg Lidocaine (Lidoderm) 1 ea TD DAILY JEANA PRN Reason: Protocol Last Admin: 10/05/17 09:29 Dose: 1 ea Montelukast Sodium (Singulair) 10 mg PO HS JEANA PRN Reason: Protocol Last Admin: 10/05/17 22:42 Dose: 10 mg Multivitamins (Thera Tab) 1 tab PO 0800 JEANA PRN Reason: Protocol Last Admin: 10/06/17 08:18 Dose: 1 tab Ondansetron HCl (Zofran Odt) 4 mg PO Q6H PRN; Protocol PRN Reason: Nausea/Vomiting Last Admin: 10/04/17 12:39 Dose: 4 mg Pantoprazole Sodium (Protonix Ec Tab) 40 mg PO 0600 JEANA PRN Reason: Protocol Last Admin: 10/06/17 06:03 Dose: 40 mg Polyethylene Glycol (Miralax) 17 gm PO DAILY JEANA PRN Reason: Protocol Last Admin: 10/05/17 09:28 Dose: 17 gm - Labs Labs: 10/04/17 09:00 10/05/17 07:00 - Head Exam Head Exam: ATRAUMATIC, NORMOCEPHALIC - Respiratory Exam Respiratory Exam: Decreased Breath Sounds - Cardiovascular Exam Cardiovascular Exam: +S1, +S2 - GI/Abdominal Exam GI & Abdominal Exam: Soft, Normal Bowel Sounds - Extremities Exam Extremities Exam: Pedal Edema - Neurological Exam Neurological Exam: Alert, Awake, Oriented x3 Assessment and Plan - Assessment and Plan (Free Text) Assessment: Sepsis secondary to urinary tract infection Back pain Prostate cancer with mets to bone and lymph nodes in the abdomen COPD CAD HTN Chronic heart failure Hypothyroidism Cardiac arrhythmia Plan: Patient with severe back pain despite lidoderm patch and Dilaudid. continue antibiotics as per infectious disease for urinary tract infection continue respiratory treatments continue physical therapy family welfare social work professor to arrange transfer to [facility] for further rehab for deconditioning Patient lives alone and needs further therapy in order to be able to do his activities of daily living on his own.
[2017-10-06] MEDS: Lidocaine 5% Patch TD SCH (09:28)
[2017-10-06] MEDS: POLYETHYLENE GLYCOL 3350 17 GM/Dose PACKET PO SCH (09:28)
--- NOTE | 2017-10-06 11:17 | PN ---
DATE: 10/06/2017 SUBJECTIVE: The patient is in bed, in no acute distress, nontoxic. PHYSICAL EXAMINATION: VITAL SIGNS: Temperature is 98, blood pressure is 112/60, respiratory rate of 16. HEENT: Unremarkable. NECK: Supple. LUNGS: Decreased breath sounds. HEART: Normal S1 and S2. ABDOMEN: Soft and nontender. LABORATORY EXAMINATION: Revealed that the patient had a white count of 6.2, hemoglobin of 10, platelets of 267. BUN of 28, creatinine of 1.3. ASSESSMENT AND PLAN: This is an 87-year-old male with a prostate cancer, diabetes, history of gastroesophageal reflux disease, history of hypertension and carbapenem-resistant Klebsiella urinary tract infection, treated with Avycaz, and with severe sepsis in acute care with Escherichia coli bacteremia, Escherichia coli in the urine. Completed 12 days of p.o. Vantin. Currently, off of antibiotics. He states that he feels weak this morning; however, he has minimal nausea. Elliot Hernandez MD
[2017-10-06] MEDS: Collagenase 250 Units/gm Ointment(30 gm) TOP SCH (12:13)
[2017-10-06 15:49] VITALS: O2SAT 94
[2017-10-06 17:16] VITALS: BP 122/78; PULSE 60
--- NOTE | 2017-10-06 17:18 | PN ---
DATE: 10/06/2017 LOCATION: The patient is in room number 313, bed 1. 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 SUBJECTIVE: The patient is lying flat in bed, still has pelvic discomfort, but no chest pain, shortness of breath, or palpitation. PHYSICAL EXAMINATION VITAL SIGNS: Blood pressure of 110/65, respirations of 18, pulse of 68, and temperature of 98.4. HEENT: Head is normocephalic. Eyes: Pupils are normal. Conjunctivae are slightly pale. NECK: JVP is low. Carotids are equal. THORAX: AP diameter normal. LUNGS: Clear. CARDIOVASCULAR: S1 and S2. ABDOMEN: Soft, vague tenderness in pelvic area. No organomegaly. EXTREMITIES: No clubbing. No cyanosis. LABORATORY DATA: WBC is 6.2, hemoglobin is 10.2, hematocrit is 32.8, and platelet count is 267. Random sugar today is 260. Sodium is 132, potassium is 5.0, BUN is 28, and creatinine is 1.3. AST is 78, ALT is 60, and alkaline phosphatase is 244. DIAGNOSES: Status post sepsis; urinary tract infection; anemia, status post red blood cell transfusion; indwelling Avendano catheter; stage IV prostatic carcinoma with metastasis; coronary artery disease, status post coronary bypass surgery, status post coronary angioplasty and stent insertion, status post automated implantable cardioverter-defibrillator insertion due to history of ischemic cardiomyopathy, history of paroxysmal atrial fibrillation, tachycardia; pulmonary embolism; thrombophlebitis history, not anticoagulation because of genitourinary bleeding, and left ventricular ejection fraction of 45% on the last echocardiogram. PLAN: The plan is to continue physical therapy, amiodarone 200 mg p.o. daily, Coreg 3.125 mg b.i.d., ferrous sulfate 324 mg t.i.d., furosemide 40 mg b.i.d., Protonix 40 mg daily, Singulair 10 mg at bedtime, and Synthroid 100 mcg p.o. daily. We will follow. Mely Walters MD
[2017-10-06 18:42] VITALS: TEMP 99.5
--- NOTE | 2017-10-06 19:15 | CP.PCM.PN ---
Subjective - Date & Time of Evaluation Date of Evaluation: 10/06/17 Time of Evaluation: 19:12 - Subjective Subjective: Podiatry Progress Note - Dr. Lawrence 87 year old male seen at bedside for left heel ulceration. Patient is seen resting comfortably in bed, in NAD, and AA0x3. Patient's dressing is clean, dry , and intact. Patient reports that he will be transferred today to rehab. He denies of any fever, sob, chest pains, vomiting. He has no other pedal complaints at this time. Objective - Vital Signs/Intake and Output Vital Signs (last 24 hours): Temp Pulse Resp BP Pulse Ox 99.5 F 60 18 122/78 94 L 10/06/17 16:00 10/06/17 17:07 10/06/17 16:00 10/06/17 17:07 10/06/17 14:00 - Medications Medications: Current Medications Acetaminophen (Tylenol 325mg Tab) 650 mg PO Q6H PRN; Protocol PRN Reason: Fever >100.4 F Albuterol/Ipratropium (Duoneb 3 Mg/0.5 Mg (3 Ml) Ud) 3 ml IH [id number] JEANA PRN Reason: Protocol Last Admin: 10/06/17 13:12 Dose: 3 ml Amiodarone HCl (Cordarone) 200 mg PO DAILY JEANA Last Admin: 10/06/17 09:29 Dose: 200 mg Calcium Carbonate (Oscal) 500 mg PO DAILY JEANA PRN Reason: Protocol Last Admin: 10/06/17 09:29 Dose: 500 mg Carvedilol (Coreg) 3.125 mg PO BID JEANA PRN Reason: Protocol Last Admin: 10/06/17 17:07 Dose: 3.125 mg Collagenase (Santyl) 0 gm TOP DAILY JEANA PRN Reason: Protocol Last Admin: 10/06/17 12:13 Dose: 1 appl Doxercalciferol (Hectorol) 0.5 mcg PO DAILY JEANA Last Admin: 10/06/17 09:29 Dose: 0.5 mcg Ferrous Sulfate (Feosol) 324 mg PO TID JEANA PRN Reason: Protocol Last Admin: 10/06/17 17:09 Dose: 324 mg Furosemide (Lasix) 40 mg PO 0800,1400 JEANA PRN Reason: Protocol Last Admin: 10/06/17 13:21 Dose: 40 mg Hydromorphone HCl (Dilaudid) 0.5 mg SC Q4H PRN PRN Reason: Pain, severe (8-10) Last Admin: 10/06/17 17:08 Dose: 0.5 mg Insulin Human Regular (Humulin R Med) 0 units SC ACHS JEANA PRN Reason: Protocol Last Admin: 10/06/17 17:12 Dose: 1 units Levothyroxine Sodium (Synthroid) 100 mcg PO 0600 JEANA PRN Reason: Protocol Last Admin: 10/06/17 06:03 Dose: 100 mcg Lidocaine (Lidoderm) 1 ea TD DAILY JEANA PRN Reason: Protocol Last Admin: 10/06/17 09:28 Dose: 1 ea Montelukast Sodium (Singulair) 10 mg PO HS JEANA PRN Reason: Protocol Last Admin: 10/05/17 22:42 Dose: 10 mg Multivitamins (Thera Tab) 1 tab PO 0800 JEANA PRN Reason: Protocol Last Admin: 10/06/17 08:18 Dose: 1 tab Ondansetron HCl (Zofran Odt) 4 mg PO Q6H PRN; Protocol PRN Reason: Nausea/Vomiting Last Admin: 10/04/17 12:39 Dose: 4 mg Pantoprazole Sodium (Protonix Ec Tab) 40 mg PO 0600 JEANA PRN Reason: Protocol Last Admin: 10/06/17 06:03 Dose: 40 mg Polyethylene Glycol (Miralax) 17 gm PO DAILY JEANA PRN Reason: Protocol Last Admin: 10/06/17 09:28 Dose: 17 gm - Labs Labs: 10/04/17 09:00 10/05/17 07:00 - Constitutional Appears: Well, Non-toxic, No Acute Distress - Extremities Exam Additional comments: Optifoam to left heel clean/dry/intact VASC: DP and PT pulses nonpalpable. Temperature gradient cool to cool b/l. No edema noted. No increase in warmth noted to left heel. CFT WNL to all digits b/ l. NEURO: Gross sensation diminished bilaterally. DERM: 3 x 2 cm ulceration noted to left heel - ulcer is noted to have a mixed fibrogranular base; absent periwound erythema or periwound maceration, purulence , fluctuance, malodor, or clinical signs of infection noted at this time. Healed pressure ulcer noted to posterolateral right heel with overlying xerosis. Right 3rd digit noted to have a stable eschar with no drainage, purulence, fluctuance, malodor, surrounding erythema - no clinical signs of infection noted at this time. ORTHO: Pain on palpation left heel ulceration, No pain on palpation right 3rd digit or right heel. - Neurological Exam Neurological Exam: Alert, Awake, Oriented x3 - Psychiatric Exam Psychiatric exam: Normal Affect, Normal Mood Assessment and Plan - Assessment and Plan (Free Text) Assessment: 87 year old male with left heel decubitus ulceration, stable Plan: Patient seen and evaluated Discussed paln with attending, Dr. Lawrence Labs, chart, vitals reviewed- afebrile, absent leukocytosis Continue local wound care left heel - optifoam Continue multipodus boots at all times in bed Continue pain mgmt per medicine Stable per podiatry standpoint for d/c Patient will be transferred today Will f/u with Dr. Lawrence
== END 2017-10-06 20:17 | DRG 91 ==
LOC: TRCU 18:49
PROVIDERS: ADMIT Internal Medicine; ATTEND Internal Medicine
PROC: F07Z9FZ Gait Training/Functional Ambulation Treatment using Assistive, Adaptive, Supportive or Protective Equipment (ICD-10-PCS; principal; 2017-09-29)
PROC: F07Z8FZ Transfer Training Treatment using Assistive, Adaptive, Supportive or Protective Equipment (ICD-10-PCS; 2017-09-29)
PROC: F07L6ZZ Therapeutic Exercise Treatment of Musculoskeletal System - Lower Back / Lower Extremity (ICD-10-PCS; 2017-09-29)
PROC: F08Z1FZ Dressing Techniques Treatment using Assistive, Adaptive, Supportive or Protective Equipment (ICD-10-PCS; 2017-09-29)
PROC: F08Z2FZ Grooming/Personal Hygiene Treatment using Assistive, Adaptive, Supportive or Protective Equipment (ICD-10-PCS; 2017-10-02)
DX: R26.9 Unspecified abnormalities of gait and mobility (principal); A41.51 Sepsis due to Escherichia coli [E. coli]; I49.01 Ventricular fibrillation; C77.9 Secondary and unspecified malignant neoplasm of lymph node, unspecified; K61.0 Anal abscess; E87.5 Hyperkalemia; E11.621 Type 2 diabetes mellitus with foot ulcer; I50.42 Chronic combined systolic (congestive) and diastolic (congestive) heart failure; N39.0 Urinary tract infection, site not specified; I47.2 Ventricular tachycardia; I11.0 Hypertensive heart disease with heart failure; R53.1 Weakness; I27.20 Pulmonary hypertension, unspecified; I48.0 Paroxysmal atrial fibrillation; L97.509 Non-pressure chronic ulcer of other part of unspecified foot with unspecified severity; L89.629 Pressure ulcer of left heel, unspecified stage; C61 Malignant neoplasm of prostate; E03.9 Hypothyroidism, unspecified; M19.90 Unspecified osteoarthritis, unspecified site; J44.9 Chronic obstructive pulmonary disease, unspecified; I25.5 Ischemic cardiomyopathy; I25.10 Atherosclerotic heart disease of native coronary artery without angina pectoris; H40.9 Unspecified glaucoma; H26.9 Unspecified cataract; D63.8 Anemia in other chronic diseases classified elsewhere; K29.70 Gastritis, unspecified, without bleeding; Z95.810 Presence of automatic (implantable) cardiac defibrillator; Z95.5 Presence of coronary angioplasty implant and graft; Z86.711 Personal history of pulmonary embolism; Z86.718 Personal history of other venous thrombosis and embolism; Z79.4 Long term (current) use of insulin; Z95.1 Presence of aortocoronary bypass graft

== ENCOUNTER 2017-11-04 13:47 | Inpatient (IN) | payer MEDICARE ==
[2017-11-04 14:05] VITALS: BMI 23.6
--- NOTE | 2017-11-04 14:48 | RAD ---
HISTORY: Sepsis Patient COMPARISON: 09/19/2017 FINDINGS: LUNGS: Mild interstitial thickening is appreciated, slightly more prominent than on prior study. This may suggest some mild vascular congestion or other mild inflammatory process. No focal infiltrate is seen. PLEURA: No significant pleural effusion identified, no pneumothorax apparent. CARDIOVASCULAR: Heart is enlarged. Left pacemaker is unchanged. Right Port-A-Cath is unchanged. OSSEOUS STRUCTURES: There is evidence of prior median sternotomy. No rib fracture is noted. VISUALIZED UPPER ABDOMEN: Normal. OTHER FINDINGS: None. IMPRESSION: Mild interstitial thickening, slightly more prominent than on prior study. No new focal infiltrate. Cardiomegaly.
[2017-11-04] MEDS ORDERED: cefTRIAXone 2 GM IN NS 2 GM/100 ML BAG IVPB STA (15:34)
[2017-11-04 15:42] LABS: BASO # 0.04 K/mm3 (0.0-2.0); BASO % 0.7 % (0.0-3.0); EOS # 0.1 (0.0-0.7); GRAN # 4.24 (1.4-6.5); GRAN % 70.5 % (50.0-68.0); HEMOGLOBIN 9.4 g/dL (14.0-18.0); LYMPH # 0.6 (1.2-3.4); LYMPH % 9.3 % (22.0-35.0); MEAN CELL VOLUME 86.2 fl (80.0-105.0); MEAN CORPUSCULAR HEMOGLOBIN 27.6 pg (25.0-35.0); MEAN CORPUSCULAR HGB CONC 32.1 g/dl (31.0-37.0); MEAN PLATELET VOLUME 9.7 fl (7.0-11.0); MONO # 1.1 (0.1-0.6); MONO % 17.5 % (1.0-6.0); RBC 3.4 10^6/uL (3.5-6.1); RED CELL DISTRIBUTION WIDTH 17.5 % (11.5-14.5); VENOUS BLOOD GAS BASE EXCESS 5.1 mmol/L (0.0-2.0); VENOUS BLOOD GAS PO2 89 mm/Hg (30-55); VENOUS BLOOD PH 7.42 (7.32-7.43)
--- NOTE | 2017-11-04 15:46 | ED PDOC ---
Arrival/HPI - General Time Seen by Provider: 11/04/17 14:16 Historian: Patient - History of Present Illness Narrative History of Present Illness (Text): 87 y/o male w/ pmhx of chf on lasix/digoxin/amiodarone/coumadin, bph, chronci left sdied calcaneal healing skin ulcer, prostate cancer, recent admissionm for urosepsis, chronic indwelling schroeder, recent NH discharge yesterday presnts c /o global malaise/ subjective fever since the am, as well as 1-2 weeks of cough productive of whitish to greenish sputum, denying any acute rhnorhea/n/v/ diarrhea/ nor othe skin lesions , nor abdominal pain nor headache. 11/04/17 15:42 Time/Duration: 4-6 hours Symptom Onset: Gradual Symptom Course: Worsening Past Medical History - Provider Review Nursing Documentation Reviewed: Yes - Travel History Have you recently traveled outside [place] w/in the past 3 mons?: No - Infectious Disease Hx of Infectious Diseases: None - Tetanus Immunization Tetanus Immunization: Unknown - Cardiac Hx Cardiac Disorders: Yes (stents, afib w/ defibrillator) - Pulmonary Hx Respiratory Disorders: (hs home o2 and nebulizer machine) - Neurological Hx Neurological Disorder: No Hx Paralysis: No - HEENT Hx HEENT Disorder: Yes ([place]) Hx Cataracts: Yes (WITH b/t SURGERY) Hx Glaucoma: Yes - Renal Hx Renal Failure: Yes - Endocrine/Metabolic Hx Diabetes Mellitus Type 2: Yes Hx Hypothyroidism: Yes - Hematological/Oncological Hx Blood Transfusions: Yes Hx Blood Transfusion Reaction: No - Integumentary Other/Comment: multiple skin discolorations and tatoos both arms, multiple brown skin discolorations ble - Musculoskeletal/Rheumatological Hx Falls: No - Gastrointestinal Hx Gastrointestinal Disorders: No - Genitourinary/Gynecological Hx Genitourinary Disorders: Yes Hx Reproductive Disorders: No - Psychiatric Hx Emotional Abuse: No Hx Physical Abuse: No Hx Substance Use: No - Surgical History Other/Comment: cardiac stents, 4 quadruple bypass in the past 3 years, indwelling schroeder catheter placement. cystoscopy x3 weeks ago, left shoulder cyst removed 1988 - Anesthesia Hx Anesthesia: Yes Hx Anesthesia Reactions: No Hx Malignant Hyperthermia: No - Suicidal Assessment Feels Threatened In Home Enviroment: No Family/Social History - Physician Review Nursing Documentation Reviewed: Yes Family/Social History: No Known Family HX Smoking Status: Never Smoked Hx Alcohol Use: No Hx Substance Use: No Hx Substance Use Treatment: No Allergies/Home Meds Allergies/Adverse Reactions: Allergies chocolate flavor Allergy (Verified 10/03/17 07:57) ITCHING Iodinated Contrast- Oral and IV Dye Allergy (Verified 09/27/17 21:24) ANAPHYLAXIS levofloxacin [From Levaquin] Allergy (Verified 09/27/17 21:24) ANAPHYLAXIS Home Medications: Home Meds Medication Instructions Recorded Confirmed Amiodarone HCl 200 mg PO DAILY 06/14/12 11/04/17 Furosemide [Lasix] 40 mg PO BID 05/23/17 11/04/17 Calcium Carbonate [Oscal] 500 mg PO DAILY 07/10/17 11/04/17 Insulin Human NPH/Reg [HumuLIN 20 units SC ACL 07/10/17 11/04/17 70/30 (NPH/Reg)] Review of Systems - Physician Review All systems were reviewed & negative as marked: Yes - Review of Systems Constitutional: Normal Eyes: Normal ENT: Normal Respiratory: Normal Cardiovascular: Normal Gastrointestinal: Normal, Other (perinanal discomfort but denying any voiding changes ) Genitourinary Male: Normal Musculoskeletal: Normal Skin: Normal Neurological: Normal Endocrine: Normal Hemo/Lymphatic: Normal Psychiatric: Normal Physical Exam Vital Signs Reviewed: Yes Vital Signs Temp Pulse Resp BP Pulse Ox 11/04/17 17:53 98.9 F 65 18 107/61 96 11/04/17 16:00 64 18 105/59 L 96 11/04/17 15:30 98.1 F 11/04/17 14:04 100.6 F H 67 18 101/50 L 95 Temperature: Afebrile Blood Pressure: Normal Pulse: Regular Respiratory Rate: Normal Appearance: Positive for: Well-Appearing, Non-Toxic, Comfortable Pain Distress: None Mental Status: Positive for: Alert and Oriented X 3 - Systems Exam Head: Present: Atraumatic, Normocephalic Pupils: Present: PERRL Extroacular Muscles: Present: EOMI Conjunctiva: Present: Normal Mouth: Present: Dry Neck: Present: Normal Range of Motion Respiratory/Chest: Present: Good Air Exchange, Other (lscatterrred occasional rhonchi ). No: Respiratory Distress, Accessory Muscle Use Cardiovascular: Present: Regular Rate and Rhythm, Normal S1, S2. No: Murmurs Abdomen: Present: Normal Bowel Sounds. No: Tenderness, Distention, Peritoneal Signs Genitourinary Male: Present: Other (indwelling urine draining clean straw colored urine) Back: Present: Normal Inspection Upper Extremity: Present: Normal Inspection. No: Cyanosis, Edema Lower Extremity: Present: Normal Inspection. No: Edema Neurological: Present: GCS=15, CN II-XII Intact, Speech Normal Skin: Present: Warm, Dry, Normal Color. No: Rashes Psychiatric: Present: Alert, Oriented x 3, Normal Insight, Normal Concentration Medical Decision Making ED Course and Treatment: 87 y/o male w/ pmhx of prostatce ca, indwelling schroeder, recent discharge from healthcare facility now p/w fuo x 1 day . presumtive abx for URI/UTI fever w/u r/o influenza , early broad band coverage gentle ivf given chf 11/04/17 15:49 11/04/17 15:51 - Lab Interpretations Lab Results: 11/04/17 15:25 11/04/17 15:25 Lab Results 11/04/17 15:25: Digoxin < 0.4 L 11/04/17 15:25: Sodium 130 L, Chloride 96 L, Potassium 4.7, Carbon Dioxide 28, Anion Gap 12, BUN 44 H, Creatinine 1.6 H, Est GFR ( Amer) 50, Est GFR ( Non-Af Amer) 41, Random Glucose 126 H, Calcium 8.4, Magnesium 2.3 H, Total Bilirubin 0.5, AST 113 H D, ALT 58 H, Alkaline Phosphatase 174 H D, Troponin I 0.04 D, NT-Pro-B Natriuret Pep 6830 H, Total Protein 5.4 L, Albumin 2.8 L, Globulin 2.5, Albumin/Globulin Ratio 1.1 11/04/17 15:25: pO2 89 H, VBG pH 7.42, VBG pCO2 47.0, VBG HCO3 30.5 H, VBG Total CO2 31.9 H, VBG O2 Sat (Calc) 98.4 H, VBG Base Excess 5.1 H, VBG Potassium 4.8, Sodium 129.0 L, Chloride 100.0, Glucose 140 H, Lactate 0.9, FiO2 21.0, Venous Blood Potassium 4.8 11/04/17 15:25: Urine Color Yellow, Urine Appearance Clear, Urine pH 7.0, Ur Specific [place] 1.010, Urine Protein Trace H, Urine Glucose (UA) Negative, Urine Ketones Negative, Urine Blood Small H, Urine Nitrate Negative, Urine Bilirubin Negative, Urine Urobilinogen 0.2, Ur Leukocyte Esterase Large H, Urine RBC 1 - 3, Urine WBC 15 - 20, Ur Epithelial Cells 0 - 2, Urine Bacteria Many 11/04/17 15:25: PT 15.5 H, INR 1.35 H, APTT 31.8 11/04/17 15:25: WBC 6.0, RBC 3.40 L, Hgb 9.4 L, Hct 29.3 L, MCV 86.2, MCH 27.6, MCHC 32.1, RDW 17.5 H, Plt Count 221, MPV 9.7, Gran % 70.5 H, Lymph % (Auto) 9.3 L, [place] % (Auto) 17.5 H, Eos % (Auto) 2.0, Baso % (Auto) 0.7, Gran # 4.24, Lymph # 0.6 L, [place] # 1.1 H, Eos # 0.1, Baso # 0.04 - RAD Interpretation Radiology Orders: 11/04/17 14:17 CHEST PORTABLE [RAD] Stat - Medication Orders Current Medication Orders: Discontinued Medications Acetaminophen (Tylenol 325mg Tab) 975 mg PO STAT STA Stop: 11/04/17 14:21 Last Admin: 11/04/17 14:30 Dose: 975 mg [facility] Pain/Vitals Document 11/04/17 14:30 (Rec: 11/04/17 15:39 [id number] Pain Reassessment Is This A Pain ReAssessment? No Re-Assess: [facility] Pain/Vitals Document 11/04/17 15:30 (Rec: 11/04/17 18:18 [id number]) Vitals Temperature (97.6 F-99.6 F) 98.1 F Temperature Source Oral Doxycycline Hyclate (Doryx) 100 mg PO STAT STA PRN Reason: Protocol Stop: 11/04/17 15:37 Last Admin: 11/04/17 15:56 Dose: 100 mg Ceftriaxone Sodium (Rocephin 2 Gm Ivpb) 2 gm in 100 mls @ 100 mls/hr IVPB STAT STA PRN Reason: Protocol Stop: 11/04/17 16:33 Last Admin: 11/04/17 15:58 Dose: 100 mls/hr eMAR Start Stop Document 11/04/17 15:58 HALINA (Rec: 11/04/17 15:58 [id number]) Intravenous Solution Start Date 11/04/17 Start Time 15:58 End Date 11/04/17 End time 16:45 Total Infusion Time 47 Ondansetron HCl (Zofran Inj) 4 mg IVP STAT STA Stop: 11/04/17 18:04 Last Admin: 11/04/17 18:19 Dose: 4 mg Comments: Duplicate IVP Administration Document 11/04/17 18:19 HALINA (Rec: 11/04/17 18:19 [id number]) Charges for Administration # of IVP Administrations 0 Disposition/Present on Arrival - Present on Arrival Any Indicators Present on Arrival: Yes History of DVT/PE: Yes History of Uncontrolled Diabetes: Yes Urinary Catheter: Yes History Surgical Site Infection Following: None - Disposition Have Diagnosis and Disposition been Completed?: Yes Diagnosis: Urinary tract infection, Malaise and fatigue, Dehydration Disposition: HOSPITALIZED Disposition Time: 18:04 Patient Plan: Admission, Telemetry Condition: FAIR
[2017-11-04 15:56] LABS: ALB/GLOB RATIO 1.1 (1.1-1.8); ALBUMIN 2.8 g/dL (3.0-4.8); CALCIUM 8.4 mg/dL (8.4-10.5); MAGNESIUM 2.3 mg/dL (1.7-2.2)
[2017-11-04 16:01] LABS: TROPONIN I 0.04 ng/mL
[2017-11-04 16:24] LABS: INR 1.35 (0.93-1.08); PARTIAL THROMBOPLASTIN TIME 31.8 Seconds (25.1-36.5); PROTHROMBIN TIME 15.5 SECONDS (9.4-12.5)
[2017-11-04 16:34] LABS: URINE BILIRUBIN NEGATIVE (NEGATIVE); URINE BLOOD SMALL (NEGATIVE); URINE GLUCOSE (UA) NEGATIVE (NEGATIVE); URINE LEUKOCYTE ESTERASE LARGE Leu/uL (NEGATIVE); URINE NITRATE NEGATIVE (NEGATIVE); URINE PROTEIN TRACE mg/dL (<30 mg/dL); URINE UROBILINOGEN 0.2 E.U./dL (<1 E.U./dL)
[2017-11-04 16:39] LABS: URINE APPEARANCE CLEAR (CLEAR); URINE COLOR YELLOW (YELLOW)
[2017-11-04 16:52] LABS: URINE BACTERIA MANY (NEG); URINE EPITHELIAL CELLS 0 - 2 /hpf (0-5); URINE WBC 15 - 20 /hpf (0-6)
--- NOTE | 2017-11-04 19:20 | CP.PCM.HP ---
History of Present Illness - History of Present Illness History of Present Illness: 87 year old male with history of coronary artery disease, chronic obstructive pulmonary disease, hypothyroidism, type II diabetes mellitus, chronic kidney disease, AICD , chronic indwelling schroeder catheter, and prostate cancer with mets to the bone and lymph nodes in the pelvis presented to the Emergency Room today with fever, and chills. Patient was in [facility] when he developed a fever of 101 and was feeling weak and unable to get up from the bed. Patient also had diarrhea as per the patient's niece. He denies chest pain, or shortness of breath. Present on Admission - Present on Admission Any Indicators Present on Admission: Yes History of DVT/PE: Yes History of Uncontrolled Diabetes: Yes Urinary Catheter: Yes Decubitus Ulcer Present: No Review of Systems - Constitutional Constitutional: As Per HPI - Cardiovascular Cardiovascular: absent: Chest Pain, Diaphoresis, Dyspnea - Gastrointestinal Gastrointestinal: As Per HPI - Musculoskeletal Musculoskeletal: Abnormal Gait, Back Pain Past Patient History - Infectious Disease Hx of Infectious Diseases: None - Tetanus Immunizations Tetanus Immunization: Unknown - Past Medical History & Family History Past Medical History?: Yes - Past Social History Smoking Status: Never Smoked - CARDIAC Hx Cardiac Disorders: Yes (stents, afib w/ defibrillator) - PULMONARY Hx Respiratory Disorders: (hs home o2 and nebulizer machine) - NEUROLOGICAL Hx Neurological Disorder: No Hx Paralysis: No - HEENT Hx HEENT Problems: Yes ([place]) Hx Cataracts: Yes (WITH b/t SURGERY) Hx Glaucoma: Yes - RENAL Hx Renal Failure: Yes - ENDOCRINE/METABOLIC Hx Diabetes Mellitus Type 2: Yes Hx Hypothyroidism: Yes - HEMATOLOGICAL/ONCOLOGICAL Hx Blood Transfusions: Yes Hx Blood Transfusion Reaction: No - INTEGUMENTARY Other/Comment: multiple skin discolorations and tatoos both arms, multiple brown skin discolorations ble - MUSCULOSKELETAL/RHEUMATOLOGICAL Hx Falls: No - GASTROINTESTINAL Hx Gastrointestinal Disorders: No - GENITOURINARY/GYNECOLOGICAL Hx Genitourinary Disorders: Yes Hx Reproductive Disorders: No - PSYCHIATRIC Hx Emotional Abuse: No Hx Physical Abuse: No Hx Substance Use: No - SURGICAL HISTORY Other/Comment: cardiac stents, 4 quadruple bypass in the past 3 years, indwelling schroeder catheter placement. cystoscopy x3 weeks ago, left shoulder cyst removed 1988 - ANESTHESIA Hx Anesthesia: Yes Hx Anesthesia Reactions: No Hx Malignant Hyperthermia: No Meds Allergies/Adverse Reactions: Allergies Allergy/AdvReac Type Severity Reaction Status Date / Time chocolate flavor Allergy ITCHING Verified 10/03/17 07:57 Iodinated Contrast- Oral and Allergy ANAPHYLAXIS Verified 09/27/17 21:24 IV Dye levofloxacin [From Levaquin] Allergy ANAPHYLAXIS Verified 09/27/17 21:24 Physical Exam - Head Exam Head Exam: ATRAUMATIC, NORMOCEPHALIC - Respiratory Exam Respiratory Exam: Rhonchi, NORMAL BREATHING PATTERN - Cardiovascular Exam Cardiovascular Exam: +S1, +S2 - GI/Abdominal Exam GI & Abdominal Exam: Normal Bowel Sounds, Soft - Extremities Exam Extremities exam: Positive for: pedal edema - Neurological Exam Neurological exam: Alert, Oriented x3 Results - Vital Signs Recent Vital Signs: Last Vital Signs Temp 98.9 F 11/04/17 17:53 Pulse 65 11/04/17 17:53 Resp 18 11/04/17 17:53 BP 107/61 11/04/17 17:53 Pulse Ox 96 11/04/17 17:53 - Labs Result Diagrams: 11/04/17 15:25 11/04/17 15:25 Labs: Laboratory Results - last 24 hr 11/04/17 18:32 Influenza Typ A,B (EIA) Pos for influenza a H Assessment & Plan - Assessment and Plan (Free Text) Assessment: Sepsis R/O UTI, R/O C diff Hyponatremia Acute on chronic systolic and diastolic heart failure COPD CAD Hypothyroidism DMII Anemia CKD Plan: Patient with fever, chills, positive leukocyte esterase on urinalysis and questionable diarrhea. Rule out UTI, panculture, check stool for C. diff., and consult Dr. Hernandez There is mild congestion seen on CXR. We will give Lasix and consult Dr. Walters , patient's senior editor. Patient is off antiplatelet agents due to history of hematuria. continue Amiodarone and Digoxin for cardiac arrhythmia. Will also consult Dr. Lozano for hyponatremia and repeat sodium level in the morning. continue respiratory treatments via nebulizer for COPD
[2017-11-04] MEDS ORDERED: Ipratropium 0.02% Inhal Soln (0.5 mg/2.5 ml) UD IH STA (19:24)
[2017-11-04] MEDS: Albuterol-Ipratrop 3 mg / 0.5 (3 ml) UD IH SCH (20:18)
[2017-11-04 20:48] LABS: IRON 10 ug/dL (45-180)
[2017-11-04 20:57] LABS: TOTAL IRON BINDING CAPACITY 174 ug/dL (261-462)
[2017-11-04 21:01] LABS: % IRON SATURATION 6 % (20-55)
[2017-11-05] MEDS: Albuterol-Ipratrop 3 mg / 0.5 (3 ml) UD IH SCH ×4 (03:00→20:22)
[2017-11-05] MEDS: Pantoprazole 40 mg EC Tab PO SCH (06:07)
[2017-11-05] MEDS: Levothyroxine 100 MCG TAB PO SCH (06:07)
--- NOTE | 2017-11-05 08:20 | CP.PCM.PN ---
Subjective - Date & Time of Evaluation Date of Evaluation: 11/05/17 Time of Evaluation: 07:45 - Subjective Subjective: Patient was admitted last night with fever, chills and sepsis. Patient is positive for influenza A. Objective - Vital Signs/Intake and Output Vital Signs (last 24 hours): Temp Pulse Resp BP Pulse Ox 99.6 F 74 18 122/54 L 91 L 11/05/17 05:45 11/05/17 05:45 11/05/17 05:45 11/05/17 05:45 11/05/17 05:45 Intake and Output: 11/05/17 11/05/17 06:59 18:59 Intake Total 200 Output Total 400 Balance -200 - Medications Medications: Current Medications Acetaminophen (Tylenol 325mg Tab) 650 mg PO Q4 PRN PRN Reason: Fever >100.4 F Albuterol/Ipratropium (Duoneb 3 Mg/0.5 Mg (3 Ml) Ud) 3 ml IH [id number] [facility] Last Admin: 11/04/17 20:18 Dose: 3 ml Amiodarone HCl (Cordarone) 200 mg PO DAILY [facility] Calcium Carbonate (Oscal) 500 mg PO DAILY [facility] Digoxin (Lanoxin) 0.125 mg PO DAILY [facility] Doxercalciferol (Hectorol) 0.5 mcg PO DAILY [facility] Furosemide (Lasix) 40 mg PO BID [facility] Levothyroxine Sodium (Synthroid) 100 mcg PO 0600 [facility] Last Admin: 11/05/17 06:07 Dose: 100 mcg Montelukast Sodium (Singulair) 10 mg PO DAILY [facility] Ondansetron HCl (Zofran Inj) 4 mg IVP Q4H PRN PRN Reason: Nausea/Vomiting Pantoprazole Sodium (Protonix Ec Tab) 40 mg PO 0600 [facility] Last Admin: 11/05/17 06:07 Dose: 40 mg - Labs Labs: PT 15.5 SECONDS (9.4-12.5) H 11/04/17 15:25 INR 1.35 (0.93-1.08) H 11/04/17 15:25 APTT 31.8 Seconds (25.1-36.5) 11/04/17 15:25 - Constitutional Appears: No Acute Distress - Head Exam Head Exam: ATRAUMATIC, NORMOCEPHALIC - Respiratory Exam Respiratory Exam: Rhonchi, NORMAL BREATHING PATTERN - Cardiovascular Exam Cardiovascular Exam: +S1, +S2 - GI/Abdominal Exam GI & Abdominal Exam: Soft, Tenderness, Normal Bowel Sounds - Extremities Exam Extremities Exam: Pedal Edema - Neurological Exam Neurological Exam: Alert, Awake, Oriented x3 Assessment and Plan - Assessment and Plan (Free Text) Assessment: Sepsis Influenza A Rule out UTI Acute on chronic systolic and diastolic heart failure COPD Hyponatremia Chronic Kidney disease Metastatic prostate cancer CAD Cardiac arrhythmia AICD Plan: Patient has low grade fever of 99.6. On arrival to the ER, his temperature was 100.6 Influenza A is positive. Will start Tamiflu. Awaiting blood and urine cultures. Awaiting infectious disease consult. continue respiratory treatments for COPD Sodium level was 130 yesterday. Awaiting today's labs. continue Lasix for congestive heart failure. awaiting cardiology consult. iron levels are very low. Patient has chronic anemia with baseline around 10. Hemoglobin is 9.4 Will order venofer infusion.
[2017-11-05 08:41] LABS: BASO # 0.05 K/mm3 (0.0-2.0); BASO % 0.9 % (0.0-3.0); EOS # 0.1 (0.0-0.7); GRAN # 4.34 (1.4-6.5); GRAN % 75.6 % (50.0-68.0); LYMPH # 0.4 (1.2-3.4); LYMPH % 7.7 % (22.0-35.0); MEAN CELL VOLUME 87.4 fl (80.0-105.0); MEAN CORPUSCULAR HEMOGLOBIN 27.5 pg (25.0-35.0); MEAN CORPUSCULAR HGB CONC 31.4 g/dl (31.0-37.0); MEAN PLATELET VOLUME 10.1 fl (7.0-11.0); MONO # 0.9 (0.1-0.6); MONO % 14.8 % (1.0-6.0); RBC 3.64 10^6/uL (3.5-6.1); RED CELL DISTRIBUTION WIDTH 17.8 % (11.5-14.5); WHITE BLOOD COUNT 5.7 10^3/ul (4.5-11.0)
[2017-11-05 09:04] LABS: CALCIUM 8.2 mg/dL (8.4-10.5)
[2017-11-05] MEDS: Digoxin 125 mcg (0.125 mg) Tab PO SCH (09:53)
[2017-11-05] MEDS: Insulin Human NPH/Reg 70/30 Vial(3 ml) SC SCH ×3 (09:55→17:55)
--- NOTE | 2017-11-05 10:02 | CARD ---
APPROVED REPORT EKG Measurement Heart [id number] <Conclusion> Electronic ventricular pacemaker: V. Paced Possible non-sensing of PVC's Suggest clinical correlation.
[2017-11-05] MEDS: Budesonide 0.5 mg/2 ml Inhal Susp UD IH SCH (20:22)
--- NOTE | 2017-11-05 22:45 | CON ---
DATE: 11/05/2017 PULMONARY CONSULTATION HISTORY OF PRESENT ILLNESS: Mr. Amador is an 87-year-old male. He has severe COPD with accompanying coronary artery disease, hypothyroidism, diabetes mellitus, chronic kidney disease. He has AICD in place. 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 He presented to the emergency room with fever and chills. He is a patient at [facility]. He had 101 fever and was lethargic and unable to get around. When coming to the emergency room, he was found to have diarrhea and a flu. Rapid flu evaluation showed that he was now part of this current epidemic. The patient is awake and alert. He is able to talk to me. His cognition is good. He remembers the physicians who have visited him. He is coughing. He is slightly short of breath, but feels very weak. He has no acute COPD problems, but he is glad to be in the hospital for better care. PAST MEDICAL HISTORY: As described above, history of DVT, urinary catheter. PAST SOCIAL HISTORY: Former smoker. No occupational or travel history. PAST FAMILY HISTORY: Noncontributory. REVIEW OF SYSTEMS: No changes other than that as described above. Shortness of breath, lethargy, diarrhea. No chest pains, hemoptysis or pleurisy. No additional problems are noted at this time. All other systems negative. ALLERGIES: HE HAS ALLERGIES TO CHOCOLATE, IODINE AND LEVAQUIN. OUTPATIENT MEDICATIONS: Please see chart. PHYSICAL EXAMINATION: GENERAL: Resting comfortably. VITAL SIGNS: Afebrile, temperature 98.6, pulse rate 70, respiratory rate 16 to 18, blood pressure 110/70, and pulse oximetry 96% on nasal cannula. HEENT: Normocephalic, atraumatic. Pupils PERRLA. EOMs full. Conjunctivae pink. Mouth moist. NECK: Supple. No JVD. No lymphadenopathy. No bruits. CHEST: Scattered rhonchi throughout both lung corbett. CARDIOVASCULAR: Regular rhythm. S1 and S2. No murmur, gallop, or rub noted. ABDOMEN: Soft. Bowel sounds are normoactive without any mass, guarding, rebound, or organomegaly. EXTREMITIES: Reveal no clubbing, cyanosis, or edema. There is no Liz's sign. NEUROLOGIC: Unable to fully evaluate. SKIN: Warm and dry. No rash or excoriation. LYMPHATICS: Lymphadenopathy is not present. We have reviewed the supraclavicular notch in the cervical, inguinal and axillary areas, all negative. LABORATORY DATA: Laboratory studies available at this time, white count of 6000, hemoglobin of 9.4, hematocrit of 29.3, platelet count of 221,000. Sodium 130, potassium 4.7, chloride 96, CO2 of 28, BUN 44, creatinine 1.6, glucose 126. Influenza A positive. ASSESSMENT: 1. Sepsis. 2. Influenza A. 3. Hyponatremia. 4. Chronic obstructive pulmonary disease. 5. Acute on chronic diastolic dysfunction. 6. Coronary artery disease. 7. Anemia. 8. Chronic kidney disease. PLAN: We will continue vigorous bronchodilator therapy as he has had in the past. He is being evaluated by Infectious Disease and Cardiology. We will repeat the x-ray to see if there is some deterioration in the a.m. He will be seen by Renal for hyponatremia, and we will follow closely with you and decide any need for further intervention based on his clinical status. It is a pleasure to see Mr. Amador again in followup. We will intervene as necessary before Dr. Arias sees this patient again in the morning. Thank you for the opportunity to evaluate Mr. Amador. Werner Muhammad MD [facility]
[2017-11-06] MEDS: Albuterol-Ipratrop 3 mg / 0.5 (3 ml) UD IH SCH ×4 (02:30→21:08)
[2017-11-06] MEDS: Pantoprazole 40 mg EC Tab PO SCH (04:59)
[2017-11-06] MEDS: Levothyroxine 100 MCG TAB PO SCH (04:59)
--- NOTE | 2017-11-06 05:15 | CON ---
DATE: 11/05/2017 LOCATION: The patient is seen this morning in room 374, bed 2. CHIEF COMPLAINT: Fever x1 day duration. HISTORY OF PRESENT ILLNESS: This is an 87-year-old male with congestive heart failure, BPH, prostate cancer, chronic Avendano catheter, in a [facility] and he is well known to me from previous admission. The patient with history of diabetes and hypertension, history of carbapenem-resistant Klebsiella urinary tract infection, history of chronic foot ulcer, history of E. coli bacteremia secondary to E. coli urinary tract infection with a pacemaker, Port-A-Cath, coronary artery bypass graft in the past, with ALLERGIC TO LEVAQUIN AND ORAL AND IV DYE AND IV CONTRAST, admitted from the emergency room yesterday with a diagnosis of urinary tract infection and upper respiratory tract infection. The patient states that he has been having cough, he has been having fevers, he has been having chills. No chest pain. No headaches. No blurred vision. No dysuria, frequency, although he does have a chronic Avendano and he has been having shortness of breath and his cough is nonproductive. No abdominal pain. PAST MEDICAL HISTORY: Significant for congestive heart failure, prostate cancer, benign prostatic hypertrophy and chronic Avendano catheter, diabetes, hypertension, carbapenem-resistant urinary tract infection, foot ulcer, history of E. coli bacteremia, E. coli urinary tract infection. PAST SURGICAL HISTORY: Significant for coronary bypass graft, pacemaker placement, and insertion of Avendano catheter. ALLERGIES: THE PATIENT IS ALLERGIC TO LEVAQUIN AND IV DYE AND ORAL DYE. MEDICATIONS AT [facility]: Include the patient to be on amiodarone, digoxin, Lasix, inhalers and Synthroid. PHYSICAL EXAMINATION: GENERAL: The patient is in bed. He is awake and alert, answering questions appropriately. VITAL SIGNS: Temperature of 100.6, respiratory rate of 20, heart rate of 76, blood pressure is 100/60. HEENT: Unremarkable. NECK: Supple. LUNGS: Decreased breath sounds. HEART: Normal S1 and S2. ABDOMEN: Soft, nontender. No rebound or guarding. LABORATORY DATA: Reveals a white count of 6000, hemoglobin of 9, and platelets of 221. Coagulation is noted. Blood gases are noted. The chemistries reveal the patient has a creatinine of 1.6 and the patient generally runs creatinine of 1.5 and 1.6, and LFTs are elevated. Alkaline phosphatase is elevated. The BNP is 6830. Procalcitonin is 0.46. Urinalysis reveals 15 to 20 wbc's and influenza is positive. The chest x-ray is reported to be mild interstitial thickening, read by Dr. Ant Betancourt, no new focal infiltrate. . progress note and history and physical examination is reviewed. ASSESSMENT AND PLAN: He is an 87-year-old with history of congestive heart failure, prostate cancer, benign prostatic hypertrophy, chronic Avendano catheter, diabetes mellitus, hypertension, history of carbapenem-resistant Klebsiella urinary tract infection, history of E. coli bacteremia, history of E. coli urinary tract infection, now presenting with fever of 100.6 and sepsis with fever and influenza A positive. Of note is that the patient does have a pacemaker and tachycardia and systemic inflammatory response syndrome negative sepsis in this patient. We will treat the patient with Tamiflu and as he is 87 years old patient and we will follow closely with you. We will check on the pancultures and we will make further recommendation, recommended Tamiflu for five days. The patient states he did receive his influenza vaccine this year. Elliot Hernandez MD
[2017-11-06 06:47] LABS: BASO # 0.02 K/mm3 (0.0-2.0); BASO % 0.3 % (0.0-3.0); EOS % 0.3 % (1.5-5.0); GRAN # 4.94 (1.4-6.5); GRAN % 73.3 % (50.0-68.0); HEMOGLOBIN 9.6 g/dL (14.0-18.0); LYMPH # 0.7 (1.2-3.4); LYMPH % 10.4 % (22.0-35.0); MEAN CELL VOLUME 86.5 fl (80.0-105.0); MEAN CORPUSCULAR HGB CONC 31.3 g/dl (31.0-37.0); MEAN PLATELET VOLUME 10.1 fl (7.0-11.0); MONO # 1.1 (0.1-0.6); MONO % 15.7 % (1.0-6.0); RBC 3.55 10^6/uL (3.5-6.1); RED CELL DISTRIBUTION WIDTH 17.9 % (11.5-14.5); WHITE BLOOD COUNT 6.7 10^3/ul (4.5-11.0)
[2017-11-06 06:57] LABS: BLOOD UREA NITROGEN 37 mg/dL (7-21); CALCIUM 8.1 mg/dL (8.4-10.5); GFR AFRICAN-AMERICAN > 60; GFR NON-AFRICAN AMERICAN 52
[2017-11-06] MEDS: Insulin Human NPH/Reg 70/30 Vial(3 ml) SC SCH ×3 (07:52→16:47)
[2017-11-06] MEDS: Budesonide 0.5 mg/2 ml Inhal Susp UD IH SCH ×2 (08:06→21:07)
--- NOTE | 2017-11-06 08:23 | CP.PCM.PN ---
Subjective - Date & Time of Evaluation Date of Evaluation: 11/06/17 Time of Evaluation: 07:45 - Subjective Subjective: Patient is seen this morning. He is lying in bed. He is on isolation for influenza A. He still feels very weak. Objective - Vital Signs/Intake and Output Vital Signs (last 24 hours): Temp Pulse Resp BP Pulse Ox 98.9 F 76 19 123/69 91 L 11/06/17 06:00 11/06/17 06:00 11/06/17 06:00 11/06/17 06:00 11/05/17 05:45 Intake and Output: 11/06/17 11/06/17 06:59 18:59 Intake Total 240 Output Total 240 Balance 0 - Medications Medications: Current Medications Acetaminophen (Tylenol 325mg Tab) 650 mg PO Q4 PRN PRN Reason: Fever >100.4 F Last Admin: 11/05/17 10:23 Dose: 650 mg Albuterol/Ipratropium (Duoneb 3 Mg/0.5 Mg (3 Ml) Ud) 3 ml IH [id number] [facility] Last Admin: 11/06/17 08:06 Dose: 3 ml Amiodarone HCl (Cordarone) 200 mg PO DAILY [facility] Last Admin: 11/05/17 09:53 Dose: 200 mg Budesonide (Pulmicort Respules) 0.5 mg IH [id number] [facility] Last Admin: 11/06/17 08:06 Dose: 0.5 mg Calcium Carbonate (Oscal) 500 mg PO DAILY [facility] Last Admin: 11/05/17 09:53 Dose: 500 mg Digoxin (Lanoxin) 0.125 mg PO DAILY [facility] Last Admin: 11/05/17 09:53 Dose: 0.125 mg Doxercalciferol (Hectorol) 0.5 mcg PO DAILY [facility] Last Admin: 11/05/17 09:53 Dose: 0.5 mcg Furosemide (Lasix) 40 mg PO BID [facility] Last Admin: 11/05/17 17:53 Dose: 40 mg Levothyroxine Sodium (Synthroid) 100 mcg PO 0600 [facility] Last Admin: 11/06/17 04:59 Dose: 100 mcg Montelukast Sodium (Singulair) 10 mg PO DAILY [facility] Last Admin: 11/05/17 09:53 Dose: 10 mg Ondansetron HCl (Zofran Inj) 4 mg IVP Q4H PRN PRN Reason: Nausea/Vomiting Oseltamivir Phosphate (Tamiflu Cap) 75 mg PO BID [facility] PRN Reason: Protocol Stop: 11/10/17 08:23 Last Admin: 11/05/17 17:53 Dose: 75 mg Pantoprazole Sodium (Protonix Ec Tab) 40 mg PO 0600 [facility] Last Admin: 11/06/17 04:59 Dose: 40 mg - Labs Labs: 11/06/17 06:30 11/06/17 06:30 PT 15.5 SECONDS (9.4-12.5) H 11/04/17 15:25 INR 1.35 (0.93-1.08) H 11/04/17 15:25 APTT 31.8 Seconds (25.1-36.5) 11/04/17 15:25 - Constitutional Appears: No Acute Distress - Head Exam Head Exam: ATRAUMATIC, NORMOCEPHALIC - Respiratory Exam Respiratory Exam: Decreased Breath Sounds, NORMAL BREATHING PATTERN - Cardiovascular Exam Cardiovascular Exam: +S1, +S2 - GI/Abdominal Exam GI & Abdominal Exam: Soft, Normal Bowel Sounds. absent: Tenderness - Extremities Exam Extremities Exam: Pedal Edema - Neurological Exam Neurological Exam: Alert, Awake, Oriented x3 Assessment and Plan - Assessment and Plan (Free Text) Assessment: Influenza A SIRS UTI COPD Metastatic Prostate Ca CAD Hypothyroidism DMII Cardiac arrhythmia AICD/pacemaker Plan: Patient is on Tamiflu for influenza A. Urine culture with gram negative rods and gram positive cocci Awaiting identification and sensitivity continue respiratory treatments for COPD continue oral Lasix for chronic heart failure. Patient will have repeat CXR today as initial Xray showed mild venous congestion. sodium level has normalized hemoglobin 9.6 today; iron levels are low; will order another infusion of iron for today
[2017-11-06] MEDS: Digoxin 125 mcg (0.125 mg) Tab PO SCH (09:25)
--- NOTE | 2017-11-06 09:54 | RAD ---
HISTORY: shortness of breath COMPARISON: 11/04/2017. FINDINGS: The right central catheter terminates in the right atrium. LUNGS: The lungs are well inflated. There is airspace disease in the left lower lobe. There is moderate pulmonary venous congestion. . PLEURA: Suspect small pleural effusions, no pneumothorax apparent. CARDIOVASCULAR: There is stable mild cardiomegaly. Status post CABG. OSSEOUS STRUCTURES: No significant abnormalities. VISUALIZED UPPER ABDOMEN: Normal. OTHER FINDINGS: None. IMPRESSION: Mild cardiomegaly, pulmonary venous congestion and small pleural effusions, larger on the left. Left lower lobe airspace disease may represent atelectasis or pneumonia.
--- NOTE | 2017-11-06 11:35 | PN ---
DATE: 11/06/2017 PULMONARY NOTE SUBJECTIVE: The patient appears comfortable this morning. He is not short of breath at rest. He does appear weak. PHYSICAL EXAMINATION: VITAL SIGNS: Temperature is 98.9, pulse 76, respirations 19, blood pressure 123/69. Oxygen saturation on nasal cannula is 94%. HEENT: Normocephalic, atraumatic. NECK: No JVD. CARDIOVASCULAR: Systolic ejection murmur at the lower left sternal border. No S3 gallop. LUNGS: Decreased breath sounds at the bases. Minimal rhonchi. No wheezing. EXTREMITIES: Positive for mild edema. No cyanosis or clubbing. Calves are nontender to palpation. GI: Abdomen is soft, nontender and nondistended. Bowel sounds are positive. SKIN: No acute rash. NEUROLOGIC: Exam limited at the present time. IMPRESSION: 1. Sepsis syndrome. 2. Influenza A positivity. 3. Advanced chronic obstructive pulmonary disease. 4. Coronary artery disease. 5. Chronic kidney disease. 6. Advanced prostate cancer. PLAN: The patient appears comfortable this morning. He is not short of breath at rest. On physical exam, there is no significant bronchospasm noted. I will continue the current nebulizer treatments and inhaled steroids for now. I would continue with the antibiotic coverage as per Infectious Disease. The temperatures have now resolved. There is no leukocytosis. Renal and Cardiology evaluations have been ordered. Again, the patient does feel better this morning and is clinically improved. His fevers have resolved. I will discuss the above with the attending physician. Kwadwo Arias MD MTDD
[2017-11-06] MEDS: AMPicillin/Sulbactam 1.5gm 1 GM/100 ML BAG IVPB SCH ×3 (11:57→23:31)
[2017-11-06] MEDS: Sodium Chloride 0.9% 1,000 ML IV SCH (13:41)
--- NOTE | 2017-11-06 17:29 | CP.PCM.PN ---
Subjective - Date & Time of Evaluation Date of Evaluation: 11/06/17 Time of Evaluation: 11:30 - Subjective Subjective: Patient is still having body aches, still having fevers. Objective - Vital Signs/Intake and Output Vital Signs (last 24 hours): Temp Pulse Resp BP Pulse Ox 98.9 F 76 19 123/69 91 L 11/06/17 06:00 11/06/17 09:25 11/06/17 06:00 11/06/17 09:25 11/05/17 05:45 Intake and Output: 11/06/17 11/06/17 06:59 18:59 Intake Total 240 Output Total 240 Balance 0 - Medications Medications: Current Medications Acetaminophen (Tylenol 325mg Tab) 650 mg PO Q4 PRN PRN Reason: Fever >100.4 F Last Admin: 11/05/17 10:23 Dose: 650 mg Albuterol/Ipratropium (Duoneb 3 Mg/0.5 Mg (3 Ml) Ud) 3 ml IH [id number] [facility] Last Admin: 11/06/17 08:06 Dose: 3 ml Amiodarone HCl (Cordarone) 200 mg PO DAILY [facility] Last Admin: 11/06/17 09:25 Dose: 200 mg Budesonide (Pulmicort Respules) 0.5 mg IH [id number] [facility] Last Admin: 11/06/17 08:06 Dose: 0.5 mg Calcium Carbonate (Oscal) 500 mg PO DAILY [facility] Last Admin: 11/06/17 09:26 Dose: 500 mg Digoxin (Lanoxin) 0.125 mg PO DAILY [facility] Last Admin: 11/06/17 09:25 Dose: 0.125 mg Doxercalciferol (Hectorol) 0.5 mcg PO DAILY [facility] Last Admin: 11/06/17 09:26 Dose: 0.5 mcg Furosemide (Lasix) 40 mg PO BID [facility] Last Admin: 11/06/17 09:25 Dose: 40 mg Ampicillin Sodium/Sulbactam Sodium (Unasyn) 1 gm in 100 mls @ 100 mls/hr IVPB Q6 [facility] PRN Reason: Protocol Levothyroxine Sodium (Synthroid) 100 mcg PO 0600 [facility] Last Admin: 11/06/17 04:59 Dose: 100 mcg Montelukast Sodium (Singulair) 10 mg PO DAILY [facility] Last Admin: 11/06/17 09:26 Dose: 10 mg Ondansetron HCl (Zofran Inj) 4 mg IVP Q4H PRN PRN Reason: Nausea/Vomiting Oseltamivir Phosphate (Tamiflu Cap) 75 mg PO BID [facility] PRN Reason: Protocol Stop: 11/10/17 08:23 Last Admin: 11/06/17 10:11 Dose: 75 mg Pantoprazole Sodium (Protonix Ec Tab) 40 mg PO 0600 [facility] Last Admin: 11/06/17 04:59 Dose: 40 mg - Labs Labs: 11/06/17 06:30 11/06/17 06:30 PT 15.5 SECONDS (9.4-12.5) H 11/04/17 15:25 INR 1.35 (0.93-1.08) H 11/04/17 15:25 APTT 31.8 Seconds (25.1-36.5) 11/04/17 15:25 - Constitutional Appears: Chronically Ill - Head Exam Head Exam: NORMAL INSPECTION - ENT Exam ENT Exam: Mucous Membranes Moist - Neck Exam Neck Exam: absent: Meningismus - Respiratory Exam Respiratory Exam: Decreased Breath Sounds - Cardiovascular Exam Cardiovascular Exam: +S1, +S2 - GI/Abdominal Exam GI & Abdominal Exam: Soft. absent: Tenderness Assessment and Plan - Assessment and Plan (Free Text) Plan: Assessment sepsis due to systemic viral illness with Influenza as well as UTI with E. coli and E. faecalis history of severe sepsis with acute renal failure due to E. 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 diff. associated diarrhea S/P lower urinary tract infection in a patient with indwelling Avendano catheter growing Carbapenem-resistant Klebsiella history of right foot necrotic ulcer with surrounding cellulitis UTI with Enterococcus and Klebsiella chronic renal failure history of DVT DM metastatic Prostate CA history of Enterococcus UTI chronic atrial fibrillation S/P pacemaker and ICD placement Plan continue Tamiflu day 2 of 5 and Unasyn for the UTI will monitor clinically
--- NOTE | 2017-11-06 21:53 | CON ---
DATE: 11/06/2017 DATE: 11/06/2017 REASON FOR CONSULTATION: Hyponatremia, chronic kidney disease, stage III/IV. HISTORY OF PRESENT ILLNESS: An 87-year-old male known to me from outpatient followup, the patient was admitted on 11/04/2017 with complaints of generalized malaise, subjective fever at home, 2 weeks of cough productive of [id number] phlegm. The patient was found to be positive for influenza. At the time of presentation, he was borderline hypotensive with a blood pressure of 101/50, temperature was 100.6, and his initial blood work showed sodium of 130 and hence consultation was requested.. Currently the sodium is 134. PAST MEDICAL AND SURGICAL HISTORY: NIDDM, hypertension, CHF, cardiomyopathy, prostate cancer, chronic indwelling Avendano, UTI, acute kidney injury, chronic kidney disease stage III/IV, anemia, CAD, CABG. FAMILY HISTORY: Noncontributory. SOCIAL HISTORY: No smoking, no alcohol use, no IV drug abuse. ALLERGIES: LEVAQUIN AND DYE. CURRENT MEDICATIONS: Cordarone 200 mg daily, DuoNeb, ____ 02:40 Lanoxin, Lasix 40 p.o. b.i.d., Os-Pedro, Protonix, Pulmicort, Singulair, Synthroid 100 mcg daily, Tamiflu 75 b.i.d., Tylenol, Unasyn 1.5 gm q.8, Zofran, iron sucrose 100 mg given. REVIEW OF SYSTEMS: The patient complains of abdominal pain. He complains of constipation. Denies any chest tightness. Denies any palpitations. Denies any shortness of breath at present. He complains of dry cough. All other symptoms are reviewed and unremarkable. PHYSICAL EXAMINATION GENERAL: Elderly male lying in bed. VITAL SIGNS: Blood pressure 110/55, heart rate 74, respiratory rate 18, temperature 101.5. HEENT: Normocephalic, atraumatic, positive pallor. NECK: Supple, no JVD. LUNGS: Bilateral equal entry, bilateral rhonchi, no rales appreciated. CARDIAC: S1, S2, regular rate and rhythm, positive murmur, no rub. ABDOMEN: Soft, distended, diffuse mild tenderness, bowel sounds present. EXTREMITIES: No lower extremity edema. INTAKE AND OUTPUT: 720/640. LABORATORY DATA: WBC 6.7, hemoglobin 9.6, hematocrit 30.7, and platelets 235. Sodium 133, potassium 4.2, chloride 98, CO2 29, BUN 37, creatinine 1.3, glucose 89, calcium 8.1. Iron saturation 6%, iron 10. Urinalysis yellow clear, pH 7.0, specific 1.010, protein trace, blood small, leukocyte esterase large; digoxin less than 0.4. Influenza positive. Urine culture E. coli. ASSESSMENT AND PLAN 1. Influenza. 2. Escherichia coli and enterococcal urinary tract infection. 3. Mild hyponatremia, largely dehydration, suspect 4. Hypertension. 5. Coronary artery disease, congestive heart failure, CMP. 6. Underlying chronic kidney disease stage III/IV. 7. Mild acute kidney injury, prerenal azotemia. PLAN 1. Check urine sodium, urine osmolality, uric acid. 2. Low-dose IV fluids. 3. Continue antibiotics as per ID recommendations. 4. Continue Tamiflu 5. Change Lasix to 40 daily for the time being. Thank you for the courtesy of this consultation. We will follow this patient closely with you. Marianne Lozano MD
[2017-11-07] MEDS: Albuterol-Ipratrop 3 mg / 0.5 (3 ml) UD IH SCH ×5 (02:19→23:56)
--- NOTE | 2017-11-07 04:18 | CON ---
DATE: CONSULT SERVICE: Cardiology. CONSULTING PHYSICIAN: Dr. Areli Chavarria. REASON FOR CONSULTATION: Cardiac evaluation, history of CAD, history of paroxysmal atrial fibrillation, history of CHF, status post AICD, admitted with generalized weakness, possible UTI. BRIEF CLINICAL HISTORY: This is an 87-year-old, admitted with past medical history significant for coronary artery disease, status post CABG, status post PTCA, pre- and post CABG, renal insufficiency, chronic indwelling Avendano catheter, multiple episodes of urosepsis, prostate CA with metastasis, who was recently transferred to [facility] from [facility]. Four weeks after [facility] [place], the patient was planning to go home but still very weak. He stood up and fell down, so called Dr. Polk and admitted here. Denies any chest pain, shortness of breath, any palpitation. PAST MEDICAL HISTORY: Significant for coronary artery disease, diabetes, hypertension, hyperlipidemia, renal insufficiency, prostate CA, COPD, status post generator change in 11/2016, history of DVT, history of atrial fibrillation, was at one point on Pradaxa but discontinued because of gross hematuria, history of non-STEMI, decided to treat medically. Recent cardiac workup, the patient had echocardiography on 12/20/2016 that showed ejection fraction of 45%, moderate mitral regurgitation, mild to moderate tricuspid regurgitation, RV systolic pressure of 43, history of AICD, history of recent ICD change noted, changed in 11/2016, history of interrogation of AICD on 09/20/2017 that revealed AICD for [employer] and history of shock delivered at the time when the patient was admitted on 09/19/2017. Last echocardiography, again repeat 09/22/2017 that showed ejection fraction of 35% to 40%, mild to moderate aortic stenosis, mild to moderate mitral regurgitation, mitral tricuspid regurgitation, RV systolic pressure of 42. CURRENT MEDICATION: The patient at home is taking Protonix, levothyroxine, insulin, Lasix, digoxin, calcium, amiodarone. REVIEW OF SYSTEMS: As per HPI. ALLERGIES: CHOCOLATE FLAVOR, IODINE CONTAINING CONTRAST MATERIAL, AND LEVAQUIN. PHYSICAL EXAMINATION: VITAL SIGNS: Temperature 101.5, heart rate 74, blood pressure 110/55. HEENT: PERRLA. Extraocular muscles intact. NECK: Supple. No carotid bruits or thyromegaly. CHEST: Clear to auscultation. HEART: S1, S2, regular. ABDOMEN: Soft. EXTREMITIES: Clubbing, cyanosis negative. LABORATORY DATA: Blood workup as follows: WBC 6.7, hemoglobin 9.6, hemoglobin 30.7, platelet count 235. Chemistry shows sodium 130, potassium 4.2, chloride 98, carbon dioxide of 29, anion gap of 10, BUN 33, creatinine 1.3. IMPRESSION: Possible urosepsis, Escherichia coli, indwelling Avendano catheter, prostate carcinoma, history of coronary artery disease, history of pre and post coronary artery bypass grafting percutaneous transluminal coronary angioplasty, history of coronary artery bypass grafting, history of decreased left ventricular function, cardiomyopathy, status post automatic implantable cardioverter-defibrillator, recently generator change, history of paroxysmal atrial fibrillation, deep venous thrombosis, was on Pradaxa, off because of hematuria. Most recent echocardiography of 09/22/2017 showed ejection fraction of 35% to 40%, mild to moderate aortic stenosis, mild to moderate mitral regurgitation, mild tricuspid regurgitation, right ventricular systolic pressure of 42. RECOMMENDATION: We will continue amiodarone, continue gentle diuretics, continue digoxin, continue broad-spectrum antibody. We will follow with you. Continue rehab. Thank you Dr. Polk for providing us the opportunity in taking care of Perry Trinh. We will follow with you. If he remained stable tomorrow, we will discontinue telemetry. Mely Chavarria MD
[2017-11-07] MEDS: AMPicillin/Sulbactam 1.5gm 1 GM/100 ML BAG IVPB SCH ×4 (06:29→23:17)
[2017-11-07] MEDS: Levothyroxine 100 MCG TAB PO SCH (06:31)
[2017-11-07] MEDS: Pantoprazole 40 mg EC Tab PO SCH (06:31)
[2017-11-07 07:36] LABS: ALBUMIN 2.6 g/dL (3.0-4.8); ALT/SGPT 68 U/L (7-56); AST/SGOT 151 U/L (17-59); BLOOD UREA NITROGEN 37 mg/dL (7-21); CALCIUM 7.9 mg/dL (8.4-10.5); GFR AFRICAN-AMERICAN > 60; GFR NON-AFRICAN AMERICAN > 60; HDL CHOLESTEROL 17 mg/dL (29-60); MAGNESIUM 2.1 mg/dL (1.7-2.2)
[2017-11-07 07:40] LABS: BASO # 0.01 K/mm3 (0.0-2.0); BASO % 0.1 % (0.0-3.0); EOS % 0.4 % (1.5-5.0); GRAN # 7.16 (1.4-6.5); GRAN % 77.2 % (50.0-68.0); HEMOGLOBIN 9.8 g/dL (14.0-18.0); LYMPH % 10.5 % (22.0-35.0); MEAN CELL VOLUME 86.8 fl (80.0-105.0); MEAN CORPUSCULAR HGB CONC 31.1 g/dl (31.0-37.0); MONO # 1.1 (0.1-0.6); MONO % 11.8 % (1.0-6.0); RBC 3.63 10^6/uL (3.5-6.1); WHITE BLOOD COUNT 9.3 10^3/ul (4.5-11.0)
[2017-11-07 07:49] LABS: LDL CHOLESTEROL < 30 mg/dL (0-129)
--- NOTE | 2017-11-07 08:04 | CP.PCM.PN ---
Subjective - Date & Time of Evaluation Date of Evaluation: 11/07/17 Time of Evaluation: 07:30 - Subjective Subjective: Patient is seen this morning in room 569 bed 1. He is feeling better. Objective - Vital Signs/Intake and Output Vital Signs (last 24 hours): Temp Pulse Resp BP Pulse Ox 99.2 F 74 20 131/69 100 11/07/17 07:30 11/07/17 07:30 11/07/17 07:30 11/07/17 07:30 11/07/17 07:30 Intake and Output: 11/07/17 11/07/17 06:59 18:59 Intake Total 420 Output Total 700 Balance -280 - Medications Medications: Current Medications Acetaminophen (Tylenol 325mg Tab) 650 mg PO Q4 PRN PRN Reason: Fever >100.4 F Last Admin: 11/06/17 12:08 Dose: 650 mg Albuterol/Ipratropium (Duoneb 3 Mg/0.5 Mg (3 Ml) Ud) 3 ml IH [id number] [facility] Last Admin: 11/07/17 02:19 Dose: 3 ml Amiodarone HCl (Cordarone) 200 mg PO DAILY [facility] Last Admin: 11/06/17 09:25 Dose: 200 mg Budesonide (Pulmicort Respules) 0.5 mg IH [id number] [facility] Last Admin: 11/06/17 21:07 Dose: 0.5 mg Calcium Carbonate (Oscal) 500 mg PO DAILY [facility] Last Admin: 11/06/17 09:26 Dose: 500 mg Digoxin (Lanoxin) 0.125 mg PO DAILY [facility] Last Admin: 11/06/17 09:25 Dose: 0.125 mg Doxercalciferol (Hectorol) 0.5 mcg PO DAILY [facility] Last Admin: 11/06/17 09:26 Dose: 0.5 mcg Furosemide (Lasix) 40 mg PO DAILY [facility] Ampicillin Sodium/Sulbactam Sodium (Unasyn) 1 gm in 100 mls @ 100 mls/hr IVPB Q6 JEANA PRN Reason: Protocol Last Admin: 11/07/17 06:29 Dose: 100 mls/hr Sodium Chloride (Sodium Chloride 0.9%) 1,000 mls @ 40 mls/hr IV .Q24H [facility] Last Admin: 11/06/17 13:41 Dose: 40 mls/hr Levothyroxine Sodium (Synthroid) 100 mcg PO 0600 [facility] Last Admin: 11/07/17 06:31 Dose: 100 mcg Methylprednisolone (Solu-Medrol) 20 mg IVP Q12 [facility] Montelukast Sodium (Singulair) 10 mg PO DAILY [facility] Last Admin: 11/06/17 09:26 Dose: 10 mg Ondansetron HCl (Zofran Inj) 4 mg IVP Q4H PRN PRN Reason: Nausea/Vomiting Oseltamivir Phosphate (Tamiflu Cap) 75 mg PO BID [facility] PRN Reason: Protocol Stop: 11/10/17 08:23 Last Admin: 11/06/17 18:59 Dose: 75 mg Pantoprazole Sodium (Protonix Ec Tab) 40 mg PO 0600 [facility] Last Admin: 11/07/17 06:31 Dose: 40 mg - Labs Labs: 11/07/17 07:12 11/07/17 07:12 PT 15.5 SECONDS (9.4-12.5) H 11/04/17 15:25 INR 1.35 (0.93-1.08) H 11/04/17 15:25 APTT 31.8 Seconds (25.1-36.5) 11/04/17 15:25 - Constitutional Appears: No Acute Distress - Head Exam Head Exam: ATRAUMATIC, NORMOCEPHALIC - Respiratory Exam Respiratory Exam: Decreased Breath Sounds, NORMAL BREATHING PATTERN - Cardiovascular Exam Cardiovascular Exam: +S1, +S2 - GI/Abdominal Exam GI & Abdominal Exam: Soft, Normal Bowel Sounds - Extremities Exam Extremities Exam: Pedal Edema - Neurological Exam Neurological Exam: Alert, Awake, Oriented x3 Assessment and Plan - Assessment and Plan (Free Text) Assessment: Influenza A SIRS Urinary tract infection with E. coli and enterococcus faecalis Chronic heart failure Hyponatremia CKD COPD Hypothyroidism CAD DMII Cardiac arrhythmia Metastatic Prostate Cancer Plan: Patient is improving with Tamiflu treatment for the flu. Urine culture growing both E. coli and Enteroccocus faecalis. Patient started on Unasyn by infectious disease. continue antibiotics as per ID. Patient is on IV fluids for hyponatremia. Sodium level improved. Gentle hydration as patient has history of cardiomyopathy. continue respiratory treatments. Patient will be out of bed to chair. Blood sugar is low this morning. We will discontinue the 70/30 insulin and only have sliding scale coverage due to hypoglycemia.
[2017-11-07] MEDS: Budesonide 0.5 mg/2 ml Inhal Susp UD IH SCH ×2 (08:07→19:37)
--- NOTE | 2017-11-07 08:27 | PN ---
DATE: 11/07/2017 PULMONARY PROGRESS NOTE SUBJECTIVE: The patient appears comfortable this morning. He is not short of breath at rest. OBJECTIVE: VITAL SIGNS: Last temperature recorded in the chart is 100.6. Pulse this morning 80, respirations 18, and blood pressure 110/55. Oxygen saturation on nasal cannula is 98%. HEENT: Normocephalic and atraumatic. NECK: No JVD. CARDIOVASCULAR: Systolic ejection murmur at the lower left sternal border. No S3 gallop. LUNGS: Decreased breath sounds at the bases. Minimal rhonchi. Minimal wheezing. EXTREMITIES: Positive for mild edema. No cyanosis, no clubbing. Calves are nontender to palpation. GASTROINTESTINAL: Abdomen is soft, nontender, and nondistended. Bowel sounds are positive. SKIN: No acute rash. NEUROLOGIC: Limited at the present time. IMPRESSION: 1. Sepsis syndrome. 2. Influenza A positivity. 3. Advanced chronic obstructive pulmonary disease. 4. Coronary artery disease. 5. Chronic kidney disease. 6. Advanced prostate cancer. PLAN: The patient appears comfortable this morning. He is not short of breath at rest. He does state to feeling better overall. However, he does remain very weak appearing. On physical exam, mild bronchospasm remains. I will continue the current nebulizer treatments and inhaled steroids for now. However, I will also add a low dose of intravenous steroids this morning. We will watch the blood sugars closely. I would continue with the antibiotic coverage as per Infectious Disease. Inputs by Dr. Ortiz is noted. Inputs by Cardiology and Renal are also noted. The patient's clinical status has improved - while in the hospital. However, unfortunately, the future status/prognosis for this elderly patient remains poor. I will discuss the above with the attending physician. Kwadwo Arias MD [facility]
[2017-11-07] MEDS: Insulin Human NPH/Reg 70/30 Vial(3 ml) SC SCH (08:31)
[2017-11-07] MEDS: Digoxin 125 mcg (0.125 mg) Tab PO SCH (09:32)
[2017-11-07] MEDS: MethylPREDNISolone 40 mg Vial IVP SCH ×2 (09:34→23:54)
--- NOTE | 2017-11-07 10:04 | CON ---
DATE: 11/07/2017 TIME OF CONSULTATION: 0645 hours. LOCATION OF CONSULTATION: Room 569, bed 1, [facility]. REASON FOR CONSULTATION: Chronic decubitus ulcer on the posterior aspect of the left heel. HISTORY OF PRESENT ILLNESS: This is an 87-year-old male well known to me, many years of treatment who suffers from significant congestive heart disease, prostate cancer with chronic Avendano catheterization and chronic renal/urinary Klebsiella infection with recent stay in the senior living, pending discharge, developed flu and was admitted to the hospital with sepsis. PAST MEDICAL HISTORY: Significant for congestive heart failure, prostate cancer, BPH, diabetes mellitus, hypertension, and chronic UTI, chronic left heel ulceration and a history of previous UTI E. coli bacteremia. PAST SURGICAL HISTORY: Significant for CABG, pacemaker and indwelling Avendano catheter. ALLERGIES: THE PATIENT IS ALLERGIC TO LEVAQUIN IV AND ORAL DYES. SOCIAL HISTORY: The patient lives alone and denies current tobacco, alcohol, recreational drug use. REVIEW OF SYSTEMS: The patient is alert and responsive in bed. He denies any current fever or chills while he still has a cough. He denies chest pain or headache and denies any pain in his lower extremity except for both heels, which remains sensitive. CURRENT MEDICATIONS: His current medication is reviewed and includes amiodarone, digoxin, Lasix, respiratory inhalers and Synthroid. PHYSICAL EXAMINATION: GENERAL: The patient is lying in bed supine, alert and oriented x3 and is responsive to questions. VITAL SIGNS: Stable and he appears in no acute distress. EXTREMITIES: Lower extremity examination reveals no significant edema and no calf tenderness. There is tenderness on both heels left worse than right. His pedal pulses are weak. His color is normal. There is no evidence of edema or inflammation in either heel or foot. There was no lymphangitis or streaking noted on either leg. The right heel remains healed. There is no open wounds, no ulcers and no stage I changes in skin of the right heel. There is some tenderness with palpation. The left heel is more tender to palpation. There is no erythema. There is no edema. There is a full thickness ulceration on the posterior aspect of the left heel that measures approximately 1.2 x 0.8 x 0.1 cm. He has a clean, slightly fibrotic bed, no evidence of undermining, no evidence of sinus formation. LABORATORY DATA: Reviewed and there is a noted WBC in the urinalysis. ASSESSMENT AND PLAN: This is an 87-year-old male admitted with urosepsis and flu, status post senior living rehabilitation with residual chronic decubitus on the left heel that has been improving since his previous hospitalization with local wound care. The left heel wound is cleaned and redressed today with Optifoam dressing and hydrogel. The patient is maintained in bilateral heel and decubitus boots and the left leg is maintained on a pillow for additional elevation of the posterior heel off the bed mattress. Orders were written for follow up x-rays of both heels, both feet just to compare to the most recent previous x-rays. No additional scanning of the heels is anticipated. No surgical intervention on the heels is anticipated, just local wound care and offloading of the heels while in bed, and we will follow up with the patient during his hospital course and then again at home after discharge. Sixto Lawrence DPM
[2017-11-07] MEDS: Insulin Reg-MEDIUM-Coverage SC SCH ×4 (12:38→23:53)
[2017-11-07] MEDS: Sodium Chloride 0.9% 1,000 ML IV SCH (12:55)
--- NOTE | 2017-11-07 15:28 | PN ---
DATE: 11/07/2017 SUBJECTIVE: The patient is seen sitting in chair. He is awake, he is alert. He is comfortable. He reports his appetite is much better. He denies any chest tightness. Denies any palpitations. He complains of cough. He complains of some phlegm. PHYSICAL EXAMINATION: GENERAL: An elderly male sitting in chair. VITAL SIGNS: Blood pressure of 131/69, heart rate of 74, respiratory rate of 20, temperature of 99.2, and T-max is 101.5. HEENT: Normocephalic, atraumatic, positive pallor. NECK: Supple, no JVD. LUNGS: Bilateral equal air entry, crackles left base, rhonchi. CARDIAC: S1 and S2. Regular rate and rhythm, positive murmur. ABDOMEN: Soft, nondistended, and nontender, bowel sounds present. EXTREMITIES: Trace lower extremity edema. INTAKE AND OUTPUT: 1020/1800. LABORATORY DATA: WBC 9, hemoglobin 9.8, hematocrit 32, and platelets 223. Sodium 133, potassium 4.5, chloride 100, CO2 28, BUN 37, creatinine 1.1, glucose 77, calcium 7.9, albumin 2.6, corrected calcium is 8.9, phosphorus 3.4, and magnesium 2.1. Hemoglobin A1c is 8.2. Uric acid is 8.2. CURRENT MEDICATIONS: Cordarone 200 mg, DuoNeb, Hectorol 0.5, insulin, Lanoxin, Lasix 40 p.o. daily, Os-Pedro, Protonix, Pulmicort, Singulair, normal saline at 40, Solu-Medrol, Synthroid, Tamiflu, Unasyn 1 g q.6 hours, and Zofran. ASSESSMENT: 1. Influenza, still with persistent fevers. 2.? Left lower lobe pneumonia. 3. Hyponatremia, mild, likely secondary to depletion of hyponatremia. 4. History of coronary artery disease, congestive heart failure. 5. Recurrent urinary tract infection. 6. Fxy-bhkrhdl-fljyzuimt diabetes mellitus. PLAN: 1. Discontinue IV fluids. 2. Continue to give Lasix only once a day. 3. Continue antibiotics. 4. Monitor daily labs. 5. Monitor fingerstick and continue insulin coverage. 6. Continue current antihypertensives. Marianne Lozano MD [facility] # [phone]
--- NOTE | 2017-11-07 17:28 | RAD ---
PROCEDURE: Right Foot Radiographs. HISTORY: hx of chronic decubitus ulcer, evaluate both heels COMPARISON: None. FINDINGS: BONES: Normal. No fracture. JOINTS: Normal. SOFT TISSUES: Vascular calcifications are seen OTHER FINDINGS: None. IMPRESSION: No acute findings
--- NOTE | 2017-11-07 17:30 | RAD ---
PROCEDURE: Left Foot Radiographs. HISTORY: hx of bilat decubitus ulcer, evaluate both heels COMPARISON: None. FINDINGS: BONES: Normal. No fracture. JOINTS: Normal. SOFT TISSUES: Normal. OTHER FINDINGS: Vascular calcifications IMPRESSION: No evidence of fracture or osteomyelitis
--- NOTE | 2017-11-07 22:56 | PN ---
DATE: 11/07/2017 LOCATION: Patient in room 567, bed 1. REASON FOR CONSULTATION: Coronary artery disease, paroxysmal atrial fibrillation, history of CHF, status post AICD insertion, cardiomyopathy, admitted with generalized weakness, UTI, and influenza A serology positive. SUBJECTIVE: The patient is lying flat in bed without chest pain, shortness of breath, or palpitation. He still has cough. PHYSICAL EXAMINATION: VITAL SIGNS: Blood pressure 131/69, respirations 20, pulse 74, temperature 99.2. HEENT: Head is normocephalic. Eyes, pupils are normal. Conjunctivae slightly pale. NECK: JVP low, carotids are equal. THORAX: AP diameter is normal. LUNGS: No significant rales. CARDIOVASCULAR: S1, S2, systolic murmur. ABDOMEN: Soft. No tenderness. No organomegaly. EXTREMITIES: No clubbing. No cyanosis. The patient has indwelling Avendano catheter. LABORATORY DATA: WBC 9.3, hemoglobin 9.8, hematocrit 31.5, platelets 223. Sodium 133, potassium 4.5, BUN 37, creatinine 1.1, calcium 7.9, phosphorous 3.4, magnesium 2.1. AST 151, ALT 68, total protein 5.2, albumin 2.6. Sugar 81, another blood sugar 204. IMPRESSION AND PLAN: Urosepsis, indwelling Avendano catheter; influenza A serology positive; coronary artery disease, history of coronary artery bypass surgery, history of coronary angioplasty and stent insertion; decreased LV function with cardiomyopathy status post AICD insertion, recently patient had generator changed for AICD; history of paroxysmal atrial fibrillation; deep venous thrombosis, was on Pradaxa, off because of hematuria. Most recent echo on 09/22/2017 showed ejection fraction of 35% to 40%, [id number] aortic stenosis and [id number] mitral regurgitation, mild tricuspid regurgitation, right ventricular systolic pressure of 42 mmHg. Cancer of the prostate with metastasis and indwelling Avendano catheter. The patient is getting amiodarone 200 mg daily, Venofer IV, digoxin 0.125 daily, furosemide 40 daily, calcium 500 mg daily, Protonix 40 mg daily, Singulair 10 mg p.o. daily, Solu-Medrol 20 mg IV q.12 hours, Synthroid 100 mcg p.o. daily, ampicillin/sulbactam 1.5 g IV q.6 hours. We will continue present therapy. We will follow up with you. Mely Walters MD
[2017-11-08] MEDS: Albuterol-Ipratrop 3 mg / 0.5 (3 ml) UD IH SCH ×5 (01:11→23:40)
--- NOTE | 2017-11-08 02:28 | PN ---
DATE: 11/07/2017 SUBJECTIVE: The patient is seen early this morning. In no acute distress, nontoxic. PHYSICAL EXAMINATION: VITAL SIGNS: Temperature is 98, blood pressure is 130/60, and respiratory rate of 20. LABORATORY DATA: White count of 9.3, hemoglobin of 9, and platelets are 223,000. Creatinine is 1.1. is noted. Positive influenza. Microbiology, blood cultures are negative. Sputum cultures are noted. ASSESSMENT AND PLAN: This is an 87-year-old male who was seen early this morning, doing well actually. Much improved, admitted with sepsis secondary to influenza and currently on Tamiflu day #3 of 5 days. The patient is much improved and the patient is also on Unasyn for Escherichia coli, Enterococcus, urinary tract infection. We will follow closely with you. May be able to switch to p.o. Augmentin to complete therapy. Elliot Hernandez MD
[2017-11-08] MEDS: AMPicillin/Sulbactam 1.5gm 1 GM/100 ML BAG IVPB SCH ×3 (05:58→17:37)
[2017-11-08] MEDS: Levothyroxine 100 MCG TAB PO SCH (05:58)
[2017-11-08] MEDS: Pantoprazole 40 mg EC Tab PO SCH (05:58)
--- NOTE | 2017-11-08 08:09 | CP.PCM.PN ---
Subjective - Date & Time of Evaluation Date of Evaluation: 11/08/17 Time of Evaluation: 07:45 - Subjective Subjective: Patient is seen this morning in room 569 bed 1. He is feeling better. Afebrile. He says that there is leaking around the schroeder catheter. Objective - Vital Signs/Intake and Output Vital Signs (last 24 hours): Temp Pulse Resp BP Pulse Ox 98.6 F 72 18 131/69 94 L 11/08/17 00:00 11/08/17 00:00 11/08/17 00:00 11/07/17 09:33 11/08/17 00:00 Intake and Output: 11/08/17 11/08/17 06:59 18:59 Intake Total 1140 Output Total 625 Balance 515 - Medications Medications: Current Medications Acetaminophen (Tylenol 325mg Tab) 650 mg PO Q4 PRN PRN Reason: Fever >100.4 F Last Admin: 11/06/17 12:08 Dose: 650 mg Albuterol/Ipratropium (Duoneb 3 Mg/0.5 Mg (3 Ml) Ud) 3 ml IH [id number] REPLACED BY [facility] Last Admin: 11/08/17 01:11 Dose: Not Given Amiodarone HCl (Cordarone) 200 mg PO DAILY [facility] Last Admin: 11/07/17 09:32 Dose: 200 mg Budesonide (Pulmicort Respules) 0.5 mg IH [id number] REPLACED BY [facility] Last Admin: 11/07/17 19:37 Dose: 0.5 mg Calcium Carbonate (Oscal) 500 mg PO DAILY [facility] Last Admin: 11/07/17 09:33 Dose: 500 mg Digoxin (Lanoxin) 0.125 mg PO DAILY [facility] Last Admin: 11/07/17 09:32 Dose: 0.125 mg Doxercalciferol (Hectorol) 0.5 mcg PO DAILY [facility] Last Admin: 11/07/17 09:37 Dose: 0.5 mcg Furosemide (Lasix) 40 mg PO DAILY [facility] Last Admin: 11/07/17 09:33 Dose: 40 mg Ampicillin Sodium/Sulbactam Sodium (Unasyn) 1 gm in 100 mls @ 100 mls/hr IVPB Q6 JEANA PRN Reason: Protocol Last Admin: 11/08/17 05:58 Dose: 100 mls/hr Insulin Human Regular (Humulin R Med) 0 units SC ACHS REPLACED BY [facility] PRN Reason: Protocol Last Admin: 11/07/17 23:53 Dose: 2 units Levothyroxine Sodium (Synthroid) 100 mcg PO 0600 [facility]PL[facility] BY [facility] Last Admin: 11/08/17 05:58 Dose: 100 mcg Methylprednisolone (Solu-Medrol) 20 mg IVP Q12 REPLACED BY [facility] Last Admin: 11/07/17 23:54 Dose: 20 mg Montelukast Sodium (Singulair) 10 mg PO DAILY [facility]PL[facility] BY [facility] Last Admin: 11/07/17 09:34 Dose: 10 mg Ondansetron HCl (Zofran Inj) 4 mg IVP Q4H PRN PRN Reason: Nausea/Vomiting Oseltamivir Phosphate (Tamiflu Cap) 75 mg PO BID REPLACED BY [facility] PRN Reason: Protocol Stop: 11/10/17 08:23 Last Admin: 11/07/17 17:22 Dose: 75 mg Pantoprazole Sodium (Protonix Ec Tab) 40 mg PO 0600 REPLACED BY [facility] Last Admin: 11/08/17 05:58 Dose: 40 mg - Labs Labs: 11/07/17 07:12 11/07/17 07:12 PT 15.5 SECONDS (9.4-12.5) H 11/04/17 15:25 INR 1.35 (0.93-1.08) H 11/04/17 15:25 APTT 31.8 Seconds (25.1-36.5) 11/04/17 15:25 - Constitutional Appears: No Acute Distress - Head Exam Head Exam: ATRAUMATIC, NORMOCEPHALIC - Respiratory Exam Respiratory Exam: Decreased Breath Sounds, NORMAL BREATHING PATTERN - Cardiovascular Exam Cardiovascular Exam: +S1, +S2 - GI/Abdominal Exam GI & Abdominal Exam: Soft, Normal Bowel Sounds - Extremities Exam Extremities Exam: Pedal Edema - Neurological Exam Neurological Exam: Alert, Awake, Oriented x3 Assessment and Plan - Assessment and Plan (Free Text) Assessment: Influenza A Urinary tract infection with E. coli and enterococcus faecalis Generalized weakness COPD Chronic heart failure CAD Hypothyroidism DMII Metastatic prostate cancer chronic indwelling schroeder catheter Plan: Patient is seen this morning. He is complaining of leaking around the schroeder catheter. Schroeder catheter was changed in Emergency Room, but size of catheter maybe smaller than what patient normally uses. Will consult Dr. Louise to check catheter. continue Tamiflu and Unasyn for influenza and urinary tract infection. Patient is out of bed to chair. Once he is off isolation, he will need physical therapy to see if he is able to get up out of bed and walk on his own.
[2017-11-08] MEDS: Budesonide 0.5 mg/2 ml Inhal Susp UD IH SCH (08:13)
[2017-11-08] MEDS: Insulin Reg-MEDIUM-Coverage SC SCH ×4 (08:34→22:36)
[2017-11-08] MEDS: MethylPREDNISolone 40 mg Vial IVP SCH ×2 (09:58→22:36)
[2017-11-08] MEDS: Digoxin 125 mcg (0.125 mg) Tab PO SCH (10:09)
--- NOTE | 2017-11-08 10:13 | PN ---
DATE: 11/08/2017 PULMONARY PROGRESS NOTE SUBJECTIVE: The patient is definitely more comfortable this morning. He is not short of breath at rest. PHYSICAL EXAMINATION: VITAL SIGNS: Temperature is 98.6, pulse is 72, respirations are 18, and blood pressure is 131/69. Oxygen saturation on nasal cannula is between 94% to 99%. HEENT: Normocephalic and atraumatic. NECK: No JVD. CARDIOVASCULAR: Systolic ejection murmur at the lower left sternal border. No S3 gallop. LUNGS: Improved breath sounds at the bases. Minimal/less rhonchi. No wheezing this morning. EXTREMITIES: Positive for mild edema. No cyanosis and no clubbing. Calves are nontender to palpation. GASTROINTESTINAL: Abdomen is soft, nontender and nondistended. Bowel sounds are positive. SKIN: No acute rash. NEUROLOGIC: Exam is limited at the present time. IMPRESSION 1. Sepsis syndrome. 2. Influenza A positivity. 3. Advanced chronic obstructive pulmonary disease. 4. Coronary artery disease. 5. Chronic kidney disease. 6. Advanced prostate cancer. PLAN: The patient definitely appears more comfortable this morning. He is not short of breath at rest. He does state to feeling much better this morning. He is also less weak appearing. On physical exam, there is significantly less bronchospasm noted. I will continue with the current nebulizer treatments and low-dose intravenous steroids (started yesterday) for now. The patient is very reluctant to use the inhaled Pulmicort - as he has had multiple problems with the pulmicort in the past. I will discontinue the Pulmicort for now. I would continue with the antibiotic coverage as per Infectious Diseases. Input by Dr. Hernandez is noted. Clinical status of the patient is certainly improved - compared to his initial presentation. However, again, unfortunately, the overall status/prognosis for this patient is poor. I will discuss the above with the attending physician. Kwadwo Arias MD MTDD
--- NOTE | 2017-11-08 14:03 | CP.PCM.PN ---
Subjective - Date & Time of Evaluation Date of Evaluation: 11/08/17 Time of Evaluation: 14:00 - Subjective Subjective: Podiatry Progress Note - Dr. Sixto Lawrence 87 y/o male seen at bedside regarding left heel ulceration. Pt is resting comfortably in bedside chair. Admits to mild pain in the left heel, particularly when pressure is applied or on dressing changes. Denies any acute events overnight. Denies F/C/N/V/CP/SOB. Has no other pedal complaints. Objective - Vital Signs/Intake and Output Vital Signs (last 24 hours): Temp Pulse Resp BP Pulse Ox 98 F 98 H 20 132/63 94 L 11/08/17 08:20 11/08/17 08:20 11/08/17 08:20 11/08/17 10:02 11/08/17 00:00 Intake and Output: 11/08/17 11/08/17 06:59 18:59 Intake Total 1140 Output Total 625 Balance 515 - Medications Medications: Current Medications Acetaminophen (Tylenol 325mg Tab) 650 mg PO Q4 PRN PRN Reason: Fever >100.4 F Last Admin: 11/06/17 12:08 Dose: 650 mg Albuterol/Ipratropium (Duoneb 3 Mg/0.5 Mg (3 Ml) Ud) 3 ml IH [id number] [facility] Last Admin: 11/08/17 13:30 Dose: 3 ml Amiodarone HCl (Cordarone) 200 mg PO DAILY [facility] Last Admin: 11/08/17 09:57 Dose: 200 mg Calcium Carbonate (Oscal) 500 mg PO DAILY [facility] Last Admin: 11/08/17 09:57 Dose: 500 mg Digoxin (Lanoxin) 0.125 mg PO DAILY [facility] Last Admin: 11/08/17 10:09 Dose: 0.125 mg Doxercalciferol (Hectorol) 0.5 mcg PO DAILY [facility] Last Admin: 11/08/17 09:58 Dose: 0.5 mcg Furosemide (Lasix) 40 mg PO DAILY [facility] Last Admin: 11/08/17 10:02 Dose: 40 mg Ampicillin Sodium/Sulbactam Sodium (Unasyn) 1 gm in 100 mls @ 100 mls/hr IVPB Q6 [facility] PRN Reason: Protocol Last Admin: 11/08/17 12:32 Dose: 100 mls/hr Insulin Human Regular (Humulin R Med) 0 units SC ACHS [facility] PRN Reason: Protocol Last Admin: 11/08/17 12:22 Dose: 3 units Levothyroxine Sodium (Synthroid) 100 mcg PO 0600 [facility] Last Admin: 11/08/17 05:58 Dose: 100 mcg Methylprednisolone (Solu-Medrol) 20 mg IVP Q12 [facility] Last Admin: 11/08/17 09:58 Dose: 20 mg Montelukast Sodium (Singulair) 10 mg PO DAILY [facility] Last Admin: 11/08/17 09:57 Dose: 10 mg Ondansetron HCl (Zofran Inj) 4 mg IVP Q4H PRN PRN Reason: Nausea/Vomiting Oseltamivir Phosphate (Tamiflu Cap) 75 mg PO BID [facility] PRN Reason: Protocol Stop: 11/10/17 08:23 Last Admin: 11/08/17 09:57 Dose: 75 mg Pantoprazole Sodium (Protonix Ec Tab) 40 mg PO 0600 [facility] Last Admin: 11/08/17 05:58 Dose: 40 mg - Labs Labs: 11/07/17 07:12 11/07/17 07:12 PT 15.5 SECONDS (9.4-12.5) H 11/04/17 15:25 INR 1.35 (0.93-1.08) H 11/04/17 15:25 APTT 31.8 Seconds (25.1-36.5) 11/04/17 15:25 - Constitutional Appears: Well, Non-toxic, No Acute Distress - Extremities Exam Additional comments: Vasc: DP/PT pulses non palpable due to +2 pitting edema of bilateral extremities. CFT < 3 sec to all digits. Temperature gradient warm to cool B/L Derm: 2.2cm x 1.2cm x 0.2cm ulceration noted to posterior left heel with mixed fibrogranular base. No christen wound erythema, no malodor, no fluctuance, no probe to bone. Neuro: Protective sensation grossly intact B/L Ortho: Mild tenderness to palpation of left heel ulceration Assessment and Plan - Assessment and Plan (Free Text) Assessment: 87 y/o male with left heel posterior ulceration secondary to diabetes and pressure Plan: Pt seen and evaluated Discussed w/ attending Dr. Lawrence Cleansed ulceration with saline Dressed L heel with Hydrogel and Optifoam Wound does not appear clinically infected at this time Podiatry will continue to follow
--- NOTE | 2017-11-08 19:30 | PN ---
DATE: 11/08/2017 SUBJECTIVE: The patient is seen sitting in chair. He is awake, he is alert. He complains of being very weak. He complains of cough. PHYSICAL EXAMINATION: GENERAL: Elderly male sitting in chair. VITAL SIGNS: Blood pressure 132/63, heart rate 72, respiratory rate 20, temperature 98. HEENT: Normocephalic, atraumatic, positive pallor. NECK: Supple, no JVD. LUNGS: Bilateral equal air entry, bilateral rhonchi, basilar rales, left greater than right. CARDIAC: S1 and S2. Regular, rate, and rhythm. No murmur, no rub. ABDOMEN: Soft, nondistended, nontender, bowel sounds present. EXTREMITIES: 1+ pitting edema of the lower extremities. INTAKE AND OUTPUT. 1140/625. LABORATORY DATA: WBC 9, hemoglobin 9.8, hematocrit 32, platelets 223. No chemistry today. CURRENT MEDICATIONS: Cordarone 200, DuoNeb, Hectorol 0.5, insulin, digoxin 0.125, Lasix 40 daily, Os-Pedro, Protonix, Singulair, Synthroid, Tamiflu 75 b.i.d., ampicillin/sulbactam 1 g q. 6 h., and Zofran. ASSESSMENT: 1. Hyponatremia, depletional. 2. Influenza. 3. Viral pneumonia?. 4. Non-insulin dependent diabetes mellitus. 5. Hypertension. 6. CAD. 7. Chronic kidney disease stage III. 8. Anemia, multifactorial. PLAN: 1. Continue antivirals. 2. Continue antibiotics for superimposed infection. 3. Continue Lasix at lower dose. 4. Monitor daily labs. 5. Monitor fingersticks and continue insulin. Marianne Lozano MD
[2017-11-09] MEDS: AMPicillin/Sulbactam 1.5gm 1 GM/100 ML BAG IVPB SCH ×4 (01:04→18:32)
[2017-11-09] MEDS: Albuterol-Ipratrop 3 mg / 0.5 (3 ml) UD IH SCH ×4 (01:23→20:05)
--- NOTE | 2017-11-09 03:10 | PN ---
DATE: 11/08/2017 SUBJECTIVE: The patient is in bed, in no acute distress, nontoxic. PHYSICAL EXAMINATION: VITAL SIGNS: Temperature is 98, blood pressure is 130/60, respiratory rate of 18. HEENT: Unremarkable. NECK: Supple. LUNGS: Have decreased breath sounds. HEART: Normal S1 and S2. ABDOMEN: Soft. LABORATORY DATA: Noted. White count of 9.8. Chemistries are reviewed. Microbiology is noted. ASSESSMENT AND PLAN: This is an 87-year-old male, seen earlier this morning, awake and alert, doing well, and is much improved, admitted with sepsis with influenza on Tamiflu day #4 of 5 days, Unasyn for urinary tract infection with E. coli and Enterococcus, may switch to p.o. Augmentin. Upon discharge, the patient will need also 5 days of Tamiflu. Review of the orders reveal Tamiflu and Unasyn are both active. Elliot Hernandez MD
[2017-11-09] MEDS: Pantoprazole 40 mg EC Tab PO SCH (05:42)
[2017-11-09] MEDS: Levothyroxine 100 MCG TAB PO SCH (05:42)
--- NOTE | 2017-11-09 07:54 | CP.PCM.PN ---
Subjective - Date & Time of Evaluation Date of Evaluation: 11/09/17 Time of Evaluation: 07:30 - Subjective Subjective: Patient is seen this morning. He is feeling better. He is afebrile. Objective - Vital Signs/Intake and Output Vital Signs (last 24 hours): Temp Pulse Resp BP Pulse Ox 98 F 74 20 132/63 96 11/08/17 16:00 11/08/17 16:00 11/08/17 16:00 11/08/17 10:02 11/08/17 16:00 Intake and Output: 11/09/17 11/09/17 06:59 18:59 Intake Total 900 Output Total 1000 Balance -100 - Medications Medications: Current Medications Acetaminophen (Tylenol 325mg Tab) 650 mg PO Q4 PRN PRN Reason: Fever >100.4 F Last Admin: 11/06/17 12:08 Dose: 650 mg Albuterol/Ipratropium (Duoneb 3 Mg/0.5 Mg (3 Ml) Ud) 3 ml IH [id number] [facility] Last Admin: 11/09/17 01:23 Dose: Not Given Amiodarone HCl (Cordarone) 200 mg PO DAILY [facility] Last Admin: 11/08/17 09:57 Dose: 200 mg Calcium Carbonate (Oscal) 500 mg PO DAILY [facility] Last Admin: 11/08/17 09:57 Dose: 500 mg Digoxin (Lanoxin) 0.125 mg PO DAILY [facility] Last Admin: 11/08/17 10:09 Dose: 0.125 mg Doxercalciferol (Hectorol) 0.5 mcg PO DAILY [facility] Last Admin: 11/08/17 09:58 Dose: 0.5 mcg Furosemide (Lasix) 40 mg PO DAILY [facility] Last Admin: 11/08/17 10:02 Dose: 40 mg Ampicillin Sodium/Sulbactam Sodium (Unasyn) 1 gm in 100 mls @ 100 mls/hr IVPB Q6 [facility] PRN Reason: Protocol Last Admin: 11/09/17 05:42 Dose: 100 mls/hr Insulin Human Regular (Humulin R Med) 0 units SC ACHS [facility] PRN Reason: Protocol Last Admin: 11/08/17 22:36 Dose: 2 units Levothyroxine Sodium (Synthroid) 100 mcg PO 0600 [facility] Last Admin: 11/09/17 05:42 Dose: 100 mcg Methylprednisolone (Solu-Medrol) 20 mg IVP Q12 [facility] Last Admin: 11/08/17 22:36 Dose: 20 mg Montelukast Sodium (Singulair) 10 mg PO DAILY [facility] Last Admin: 11/08/17 09:57 Dose: 10 mg Ondansetron HCl (Zofran Inj) 4 mg IVP Q4H PRN PRN Reason: Nausea/Vomiting Oseltamivir Phosphate (Tamiflu Cap) 75 mg PO BID [facility] PRN Reason: Protocol Stop: 11/10/17 08:23 Last Admin: 11/08/17 18:43 Dose: 75 mg Pantoprazole Sodium (Protonix Ec Tab) 40 mg PO 0600 [facility] Last Admin: 11/09/17 05:42 Dose: 40 mg - Labs Labs: 11/07/17 07:12 11/07/17 07:12 PT 15.5 SECONDS (9.4-12.5) H 11/04/17 15:25 INR 1.35 (0.93-1.08) H 11/04/17 15:25 APTT 31.8 Seconds (25.1-36.5) 11/04/17 15:25 - Constitutional Appears: No Acute Distress - Head Exam Head Exam: ATRAUMATIC, NORMOCEPHALIC - Respiratory Exam Respiratory Exam: Rhonchi, NORMAL BREATHING PATTERN - Cardiovascular Exam Cardiovascular Exam: +S1, +S2 - GI/Abdominal Exam GI & Abdominal Exam: Soft, Normal Bowel Sounds. absent: Tenderness - Extremities Exam Extremities Exam: Pedal Edema - Neurological Exam Neurological Exam: Alert, Awake, Oriented x3 Assessment and Plan - Assessment and Plan (Free Text) Assessment: Influenza A Urinary tract infection Chronic heart failure COPD CAD Hypothyroidism Cardiac arrhythmia DMII Metastatic Prostate Ca chronic indwelling schroeder catheter Left heel ulceration Plan: Patient is on treatment for the flu as well as E. coli and enterococcus faecalis urinary tract infection. Sputum culture is also growing gram negative rods. Awaiting for identification and sensitivity. Sodium level is normalized. Patient's insulin 70/30 was discontinued due to hypoglycemia and placed on sliding scale coverage only. Now blood sugar is uncontrolled. will re-start 70/30 insulin at 15 units instead of 20 at 10 units at dinner time. continue to monitor blood sugar. awaiting PT evaluation. continue wound care as per podiatry.
[2017-11-09] MEDS: Insulin Reg-MEDIUM-Coverage SC SCH ×5 (08:35→22:35)
--- NOTE | 2017-11-09 09:19 | PN ---
DATE: 11/09/2017 PULMONARY NOTE SUBJECTIVE: The patient appears comfortable this morning. He is not short of breath at rest. PHYSICAL EXAMINATION: VITAL SIGNS: Temperature is 98.0, pulse 74, respirations 18/20, blood pressure 132/63. Oxygen saturation on nasal cannula is 96%. HEENT: Normocephalic, atraumatic. NECK: No JVD. CARDIOVASCULAR: Systolic ejection murmur at the lower left sternal border. No S3 gallop. LUNGS: Minimal/less bilateral rhonchi. No wheezing. EXTREMITIES: Positive for mild edema. No cyanosis, no clubbing. Calves are nontender to palpation. GI: Abdomen is soft, nontender and nondistended. Bowel sounds are positive. SKIN: No acute rash. NEUROLOGIC: Exam limited at the present time. IMPRESSION: 1. Sepsis syndrome. 2. Influenza A positivity. 3. Advanced chronic obstructive pulmonary disease. 4. Coronary artery disease. 5. Chronic kidney disease. 6. Advanced prostate cancer. PLAN: The patient appears comfortable this morning. He is not short of breath at rest. He does state to feeling much better overall. On physical exam, there is certainly less bronchospasm noted. In addition, the alveolar-arterial gradient is also less. I will continue the current nebulizer treatments and low-dose intravenous steroids for now. The patient remains on antibiotic therapy - as per Infectious Disease. Clinical status of the patient is significantly improved - compared to the initial presentation. However, again, unfortunately, the overall status/prognosis for this patient remains poor. I will discuss the above with the attending physician. Kwadwo Arias MD ANNA[facility]LLA
[2017-11-09] MEDS: Nystatin 100,000 Units/ml Oral Susp 5 ml UD PO SCH ×4 (10:48→22:37)
[2017-11-09] MEDS: Digoxin 125 mcg (0.125 mg) Tab PO SCH (10:49)
[2017-11-09] MEDS: MethylPREDNISolone 40 mg Vial IVP SCH ×2 (10:50→22:37)
[2017-11-09] MEDS: Insulin Human NPH/Reg 70/30 Vial(3 ml) SC SCH ×3 (13:12→18:49)
--- NOTE | 2017-11-09 16:15 | PN ---
DATE: 11/09/2017 LOCATION: The patient is in room #569, bed 1. REASON FOR CONSULTATION AND FOLLOWUP: Coronary artery disease, paroxysmal atrial fibrillation, history of CHF, cardiomyopathy, AICD insertion, generalized weakness, UTI, influenza A serology positive, and CA of the prostate with metastasis and indwelling catheter. SUBJECTIVE: The patient is sitting in chair, feels very tired. Denies any chest pain, shortness of breath or palpitation. PHYSICAL EXAMINATION: VITAL SIGNS: Blood pressure 166/71, yesterday blood pressure was 132/63; respirations 18; pulse 71 and temperature 97.9. HEENT: Head is normocephalic. Eyes, pupils are normal. Conjunctivae slightly pale. NECK: JVP low. Carotids are equal. THORAX: AP diameter is normal. LUNGS: Few inspiratory wheezing sounds. CARDIOVASCULAR: S1 and S2, systolic murmur. ABDOMEN: Soft. No organomegaly. Bowel sounds normal. EXTREMITIES: No clubbing. No cyanosis. LABORATORY DATA: WBC 9.3, hemoglobin 9.8, hematocrit 31.5, and platelets 223,000. Random sugar 274. Sodium 133, potassium 4.5, BUN 37, creatinine 1.1, random sugar of 81, and calcium 7.9. Phosphorus and magnesium normal. AST 151, ALT 68. Total protein is low at 5.2, albumin also low at 2.6. DIAGNOSES: Urosepsis, indwelling Avendano catheter; influenza A serology positive; coronary artery disease; history of coronary artery bypass surgery; history of coronary angioplasty and stent insertion; decreased left ventricular function with ischemic cardiomyopathy, status post automatic implantable cardioverter-defibrillator insertion. Recently, the patient had generator changed for automatic implantable cardioverter-defibrillator; history of paroxysmal atrial fibrillation; deep venous thrombosis, was on Pradaxa, is off now because of hematuria. Most recent echo on 09/22/2017 showed ejection fraction of 35% to 40%, [id number] aortic stenosis, [id number] mitral regurgitation, mild tricuspid regurgitation, right ventricular systolic pressure of 42 mmHg. Cancer of the prostate with metastasis, indwelling Avendano catheter. Clinically, cardiac status seems to be stable. PLAN: Clinically, cardiac status seems to be stable and the patient will continue amiodarone 200 daily, DuoNeb hand nebulizer therapy, insulin, digoxin 0.125 daily, furosemide 40 daily, , Singulair 10 mg daily, Solu-Medrol 20 mg IV q.12 hours, and levothyroxine 100 mcg daily. We will follow with you. Mely Walters MD
--- NOTE | 2017-11-09 19:28 | PN ---
DATE: 11/09/2017 SUBJECTIVE: The patient is seen sitting in chair. He is awake. He is alert. He complains of decreased cough. He denies any fever. He is still complains of shortness of breath. PHYSICAL EXAMINATION: GENERAL: Elderly male sitting in chair. VITAL SIGNS: Blood pressure 166/71, heart rate 71, respiratory rate 18, and temperature 97.9. HEENT: Normocephalic and atraumatic. NECK: Supple, no JVD. LUNGS: Bilateral rhonchi, bilateral equal expansion, basilar rales. CARDIAC: S1 and S2, regular rate and rhythm, positive murmur, no rub. ABDOMEN: Soft, nondistended, and nontender. Bowel sounds present. EXTREMITIES: Trace lower extremity edema. INTAKE AND OUTPUT: 900/1500. LABORATORY DATA. No new labs. CURRENT MEDICATIONS: Cordarone 200, DuoNeb, Hectorol, insulin, digoxin, Lasix 40 p.o. daily, nystatin, Os-Pedro, Protonix, Singulair, Solu-Medrol 20 IV q.12 hours, Synthroid, Tamiflu 75 b.i.d., Tylenol, Unasyn, and Zofran. ASSESSMENT: 1. Influenza. 2. Pneumonia, viral pneumonia? 3. Prerenal azotemia/hyponatremia. 4. [id number] diabetes mellitus. 5. Hypertension. 6. Coronary artery disease/atrial fibrillation/congestive heart failure. 7. Underlying chronic kidney disease stage III. PLAN: 1. Continue Lasix at 40 mg daily. 2. Push p.o. intake. 3. Continue antibiotics. 4. Continue antivirals. 5. Monitor fingersticks especially because the patient is on Solu-Medrol. Marianne Lozano MD
--- NOTE | 2017-11-09 23:02 | PN ---
DATE: 11/09/2017 SUBJECTIVE: The patient is in bed, in no acute distress. PHYSICAL EXAMINATION VITAL SIGNS: Temperature is 97, blood pressure is 160/70, respiratory rate of 18 and heart rate is 71. HEENT: Unremarkable. NECK: Supple. LUNGS: Decreased breath sounds. HEART: Normal S1 and S2. ABDOMEN: Soft. LABORATORY DATA: Noted. ASSESSMENT AND PLAN: This is an 87-year-old male who was seen early this morning in room 569, and is much better. He was admitted with sepsis with influenza, had completed 5 days of Tamiflu. urine as a source. Now with sepsis with Escherichia coli and Enterococcus. Currently on Unasyn. They switched to p.o. Augmentin to complete therapy. We will follow with you. Elliot Hernandez MD
--- NOTE | 2017-11-09 23:23 | PN ---
DATE: 11/09/2017 SUBJECTIVE: The patient was seen early this morning in room 569, doing well. PHYSICAL EXAMINATION: VITAL SIGNS: Temperature is 97, blood pressure 160/70 and respiratory rate 16. HEENT: Unremarkable. NECK: Supple. LUNGS: Have decreased breath sounds. HEART: Normal S1 and S2. ABDOMEN: Soft and nontender. LABORATORY DATA: Reveals a white count of 9.3, hemoglobin of 9.8 and platelets of 223. Chemistry reveals a BUN of 37 and creatinine of 1.1. Serology had positive serology for influenza. MEDICATIONS: Review of medication reveals the patient to be on Unasyn and Tamiflu. ASSESSMENT AND PLAN: This is an 87-year-old male, who was seen earlier this morning during rounds with sepsis. Elliot Hernandez MD
[2017-11-10] MEDS: AMPicillin/Sulbactam 1.5gm 1 GM/100 ML BAG IVPB SCH ×3 (00:54→11:29)
[2017-11-10] MEDS: Albuterol-Ipratrop 3 mg / 0.5 (3 ml) UD IH SCH ×5 (01:20→20:37)
[2017-11-10] MEDS: Pantoprazole 40 mg EC Tab PO SCH (06:14)
[2017-11-10] MEDS: Levothyroxine 100 MCG TAB PO SCH (06:15)
[2017-11-10 07:16] LABS: BASO # 0.01 K/mm3 (0.0-2.0); BASO % 0.1 % (0.0-3.0); GRAN # 9.66 (1.4-6.5); GRAN % 88.7 % (50.0-68.0); HEMOGLOBIN 10.9 g/dL (14.0-18.0); LYMPH # 0.4 (1.2-3.4); MEAN CELL VOLUME 87.9 fl (80.0-105.0); MEAN CORPUSCULAR HEMOGLOBIN 27.5 pg (25.0-35.0); MEAN CORPUSCULAR HGB CONC 31.3 g/dl (31.0-37.0); MEAN PLATELET VOLUME 10.7 fl (7.0-11.0); MONO # 0.8 (0.1-0.6); MONO % 7.2 % (1.0-6.0); PLATELET COUNT 243 10^3/uL (120.0-450.0); RBC 3.96 10^6/uL (3.5-6.1); RED CELL DISTRIBUTION WIDTH 17.7 % (11.5-14.5); WHITE BLOOD COUNT 10.9 10^3/ul (4.5-11.0)
[2017-11-10 07:56] LABS: ALB/GLOB RATIO 1.1 (1.1-1.8); ALT/SGPT 93 U/L (7-56); AST/SGOT 134 U/L (17-59); BLOOD UREA NITROGEN 40 mg/dL (7-21); GFR AFRICAN-AMERICAN > 60; GFR NON-AFRICAN AMERICAN > 60
[2017-11-10] MEDS ORDERED: Sod Polystyrene Sulf 15 gm/60 ml Susp PO ONE ×2 (08:00→11:13)
[2017-11-10] MEDS: Insulin Human NPH/Reg 70/30 Vial(3 ml) SC SCH ×3 (08:04→17:53)
[2017-11-10 08:19] VITALS: RESP 18; TEMP 97.4; O2SAT 97
[2017-11-10 08:31] LABS: LYMPHOCYTE 4 % (22.0-35.0); MONOCYTE 4 % (1.0-6.0); NEUTROPHIL 92 % (50.0-70.0); PLATELET ESTIMATE NORMAL (NORMAL)
[2017-11-10] MEDS: Insulin Reg-MEDIUM-Coverage SC SCH ×4 (08:52→22:23)
--- NOTE | 2017-11-10 10:21 | PN ---
DATE: SUBJECTIVE: The patient is in [facility] in [place] in room 569, bed 1. The patient is in isolation because he had recent history of flu and is being treated for it actively in the [facility]. The patient has long history of medical conditions. The patient has congestive cardiomyopathy, diabetes mellitus, chronic obstructive lung disease, hypothyroidism. The patient has history of recurrent urinary tract infection, sepsis. The patient has history of carcinoma of prostate with metastatic disease to the lymph nodes and to the bone. The patient is being treated currently for flu and infection in the urinary tract. The patient is on Unasyn 1 g q. 6 hours. The patient has a Avendano catheter. PHYSICAL EXAMINATION: VITAL SIGNS: This morning, the patient's pulse is 67, blood pressure is 166/71, respirations are 20. GENERAL: The patient is lying in bed. He says he has terrible discomfort. The patient is being isolated for his flu, but he needs evaluation for his prostate, retention of urine. He has a Avendano catheter. The patient is also complaining of shortness of breath. HEENT: Head is normocephalic. NECK: Thyroid is not enlarged. JVP is flat. LUNGS: Trachea is central. Breath sounds are vesicular. Crepitations are scattered. HEART: Normal sinus rhythm. Pacemaker present. ABDOMEN: Soft. Nontender at this time. CENTRAL NERVOUS SYSTEM: The patient is conscious, but very poorly deconditioned, and he has severe general weakness. MEDICATIONS: Consists of amiodarone. The patient is on DuoNeb respiratory treatment. Insulin coverage for diabetes, digoxin 125 mcg daily, Lasix 40 mg daily. The patient is on calcium carbonate, pantoprazole, montelukast with Singulair, methylprednisolone 20 mg IV q. 12 hours, it is a decreasing dose, Synthroid 100 mcg daily. The patient is on Tamiflu for the flu, and the patient is on Unasyn, which is an antibiotic for sepsis and urinary tract infection. The patient's potassium level was 5.6. We will give the patient a dose of Kayexalate today and will repeat the electrolytes tomorrow. ASSESSMENT AND PLAN: We will continue current management. He is also on evaluation for admission to the Transitional Care Unit for further physical therapy, rehabilitation, deconditioning and continued antibiotic treatment. His overall prognosis is guarded. His condition is improving. The patient is still acutely sick. Giselle Polk MD [facility]
[2017-11-10] MEDS: Nystatin 100,000 Units/ml Oral Susp 5 ml UD PO SCH ×4 (11:21→23:23)
[2017-11-10] MEDS: MethylPREDNISolone 40 mg Vial IVP SCH (11:21)
[2017-11-10] MEDS: Digoxin 125 mcg (0.125 mg) Tab PO SCH (11:22)
--- NOTE | 2017-11-10 12:08 | PN ---
DATE: 11/10/2017 PULMONARY PROGRESS NOTE SUBJECTIVE: The patient appears comfortable this morning. He is not short of breath at rest. PHYSICAL EXAMINATION: VITAL SIGNS: Temperature is 97.4, pulse is 77, respirations are 18, and blood pressure is 145/77. Oxygen saturation on nasal cannula is 97%. HEENT: Normocephalic and atraumatic. NECK: No JVD. CARDIOVASCULAR: Systolic ejection murmur at the lower left sternal border. No S3 gallop. LUNGS: Minimal bilateral rhonchi. No wheezing. EXTREMITIES: Positive for mild edema. No cyanosis and no clubbing. Calves are nontender to palpation. GASTROINTESTINAL: Abdomen is soft, nontender and nondistended. Bowel sounds are positive. SKIN: No acute rash. NEUROLOGIC: Exam is limited at the present time. IMPRESSION 1. Sepsis syndrome. 2. Influenza A positivity. 3. Advanced chronic obstructive pulmonary disease. 4. Coronary artery disease. 5. Chronic kidney disease. 6. Advanced prostate cancer. PLAN: The patient appears comfortable this morning. He is not short of breath at rest. He does state to feeling better overall. On physical exam, he remains in mild bronchospasm. However, there is no significant alveolar-arterial gradient. I will continue with the current nebulizer treatments and low-dose intravenous steroids for now. I would continue with the antibiotic coverage as per Infectious Diseases. Input by Dr. Hernandez is noted. Inputs by Renal and Cardiology are also noted. Clinical status of the patient is certainly improved - compared to the initial presentation. However, unfortunately, the overall status/prognosis for this patient remains poor. I will discuss the above with the attending physician. Kwadwo Arias MD [facility]
[2017-11-10] MEDS ORDERED: Sodium Chloride 0.9% 1,000 ML IV SCH (16:15)
--- NOTE | 2017-11-10 17:41 | CP.PCM.PN ---
Subjective - Date & Time of Evaluation Date of Evaluation: 11/10/17 Time of Evaluation: 12:20 - Subjective Subjective: Patient is feeling better, no more body aches but still having problems ambulating. No fevers overnight. Objective - Vital Signs/Intake and Output Vital Signs (last 24 hours): Temp Pulse Resp BP Pulse Ox 97.4 F L 77 18 145/77 97 11/10/17 07:30 11/10/17 07:30 11/10/17 07:30 11/10/17 07:30 11/10/17 07:30 Intake and Output: 11/10/17 11/10/17 06:59 18:59 Intake Total 600 Output Total 2350 Balance -1750 - Medications Medications: Current Medications Acetaminophen (Tylenol 325mg Tab) 650 mg PO Q4 PRN PRN Reason: Fever >100.4 F Last Admin: 11/06/17 12:08 Dose: 650 mg Albuterol/Ipratropium (Duoneb 3 Mg/0.5 Mg (3 Ml) Ud) 3 ml IH [id number] [facility] Last Admin: 11/10/17 08:04 Dose: 3 ml Amiodarone HCl (Cordarone) 200 mg PO DAILY [facility] Last Admin: 11/09/17 10:49 Dose: 200 mg Calcium Carbonate (Oscal) 500 mg PO DAILY [facility] Last Admin: 11/09/17 10:49 Dose: 500 mg Digoxin (Lanoxin) 0.125 mg PO DAILY [facility] Last Admin: 11/09/17 10:49 Dose: 0.125 mg Doxercalciferol (Hectorol) 0.5 mcg PO DAILY [facility] Last Admin: 11/09/17 10:49 Dose: 0.5 mcg Furosemide (Lasix) 40 mg PO DAILY [facility] Last Admin: 11/09/17 10:49 Dose: 40 mg Ampicillin Sodium/Sulbactam Sodium (Unasyn) 1 gm in 100 mls @ 100 mls/hr IVPB Q6 [facility] PRN Reason: Protocol Last Admin: 11/10/17 06:15 Dose: 100 mls/hr Insulin Human Regular (Humulin R Med) 0 units SC ACHS [facility] PRN Reason: Protocol Last Admin: 11/10/17 08:52 Dose: 3 units Levothyroxine Sodium (Synthroid) 100 mcg PO 0600 [facility] Last Admin: 11/10/17 06:15 Dose: 100 mcg Methylprednisolone (Solu-Medrol) 20 mg IVP Q12 [facility] Last Admin: 11/09/17 22:37 Dose: 20 mg Montelukast Sodium (Singulair) 10 mg PO DAILY [facility] Last Admin: 11/09/17 10:49 Dose: 10 mg Nystatin (Nystatin Oral Susp) 5 ml PO QID [facility] Last Admin: 11/09/17 22:37 Dose: 5 ml Ondansetron HCl (Zofran Inj) 4 mg IVP Q4H PRN PRN Reason: Nausea/Vomiting Pantoprazole Sodium (Protonix Ec Tab) 40 mg PO 0600 [facility] Last Admin: 11/10/17 06:14 Dose: 40 mg - Labs Labs: 11/10/17 06:00 11/10/17 06:00 PT 15.5 SECONDS (9.4-12.5) H 11/04/17 15:25 INR 1.35 (0.93-1.08) H 11/04/17 15:25 APTT 31.8 Seconds (25.1-36.5) 11/04/17 15:25 - Constitutional Appears: Non-toxic, Chronically Ill - Head Exam Head Exam: NORMAL INSPECTION - ENT Exam ENT Exam: Mucous Membranes Moist - Neck Exam Neck Exam: absent: Meningismus - Respiratory Exam Respiratory Exam: Decreased Breath Sounds - Cardiovascular Exam Cardiovascular Exam: +S1, +S2 - GI/Abdominal Exam GI & Abdominal Exam: Soft. absent: Tenderness Assessment and Plan - Assessment and Plan (Free Text) Plan: Assessment sepsis due to systemic viral illness with Influenza as well as UTI with E. coli and E. faecalis, clinically improving history of severe sepsis with acute renal failure due to E. 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 diff. associated diarrhea S/P lower urinary tract infection in a patient with indwelling Avendano catheter growing Carbapenem-resistant Klebsiella history of right foot necrotic ulcer with surrounding cellulitis UTI with Enterococcus and Klebsiella chronic renal failure history of DVT DM metastatic Prostate CA history of Enterococcus UTI chronic atrial fibrillation S/P pacemaker and ICD placement Plan S/P 5 days of Tamiflu; on Unasyn for the UTI but can be switched to PO Augmentin
--- NOTE | 2017-11-10 18:45 | PN ---
DATE: 11/10/2017 SUBJECTIVE: The patient is seen lying in bed. He is awake, he is alert. He does not appear to be in any kind of distress. PHYSICAL EXAMINATION: VITAL SIGNS: Blood pressure 143/72, heart rate 77, respiratory rate 18, temperature 97.4. HEENT: Normocephalic, atraumatic, positive pallor. NECK: Supple, no JVD. LUNGS: Bilateral equal air entry, bilateral rhonchi, crackles left base. CARDIAC: S1 and S2, regular rate and rhythm, positive murmur, no rub. ABDOMEN: Distended, soft, nontender, bowel sounds present. EXTREMITIES: 1+ pitting edema of the lower extremities. INTAKE AND OUTPUT: 600/2315. LABORATORY DATA WBC 10.9, hemoglobin 10.9, hematocrit 35, platelets 243. Sodium 132, potassium 5.6, chloride 99, CO2 of 24, BUN 40, creatinine 0.9, glucose 226, calcium 9.0, AST 134, ALT 93. CURRENT MEDICATIONS: Augmentin 875 q. 12, Cordarone 200, Hectorol, insulin, digoxin, Lasix 40 p.o. daily, nystatin, Os-Pedro, prednisone, Protonix, Singulair, Synthroid, Tylenol, Zofran, Kayexalate 30 gm given this morning. ASSESSMENT: 1. Influenza. 2. Hyponatremia, suspect . 3. Hyperkalemia, ? etiology. 4. Noninsulin-dependent diabetes mellitus. 5. Coronary artery disease/congestive heart failure. 6. Underlying chronic kidney disease stage III. PLAN: 1. Monitor potassium. 2. Start low-dose IV fluids, normal saline at 40 mL per hour. 3. Avoid nephrotoxins. 4. Continue antibiotics as per ID recommendations, dose for creatinine clearance about 30 mL/minute. 5. Monitor labs. Marianne Lozano MD
--- NOTE | 2017-11-10 20:35 | PN ---
DATE: 11/10/2017 LOCATION: The patient in room 569, bed 1. REASON FOR CONSULTATION: Followup coronary artery disease, paroxysmal atrial fibrillation, history of CHF, cardiomyopathy, AICD insertion, generalized weakness, UTI, influenza, serology positive for influenza A, CA of the prostate with metastasis, and indwelling catheter. SUBJECTIVE: The patient denies chest pain or palpitation. He still getting episodes of cough. He is sitting comfortably in chair at present. PHYSICAL EXAMINATION: VITAL SIGNS: Blood pressure 140/77, respirations 18, pulse 77, and temperature 97.4. HEENT: Head is normocephalic. Eyes; pupils normal. Conjunctivae slightly pale. NECK: JVP low. Carotids equal. THORAX: AP diameter normal. LUNGS: Clear. CARDIOVASCULAR: S1 and S2, systolic murmur. No rub. ABDOMEN: Soft and nontender. No organomegaly. Bowel sounds normal. EXTREMITIES: No clubbing. No cyanosis. LABORATORY DATA: WBC 10.9, hemoglobin 10.9, hematocrit 34.8, and platelet 243. Sodium 132, potassium 5.6, BUN 40, creatinine 0.9, and random sugar 265. AST 134, ALT 93, and alkaline phosphatase 211. Total protein 5.8 and albumin 3.0. DIAGNOSES: Urosepsis, indwelling Avendano catheter, influenza A serology positive, coronary artery disease, history of coronary artery bypass surgery, history of multiple angioplasty and stent insertion, decreased left ventricular function with ischemic cardiomyopathy, and status post automatic implantable cardioverter-defibrillator insertion. Recently, had generator changed for automatic implantable cardioverter-defibrillator, history of paroxysmal atrial fibrillation, deep venous thrombosis, was on Pradaxa in the past, off now because of hematuria. Echocardiogram on 09/22/2017 showed 35% to 40% ejection fraction, [id number] aortic stenosis, [id number] mitral regurgitation, mild tricuspid regurgitation, right ventricular systolic pressure of 42 mmHg, cancer of the prostate with metastasis, and indwelling Avendano catheter. PLAN: Clinically, the patient have any cardiac symptoms and we will continue amiodarone 200 daily and insulin . The patient got one dose of Kayexalate today for hyperkalemia, digoxin 0.125 daily, Lasix 40 daily, Protonix 40 daily, Singulair 10 mg daily, 0.9% saline 40 mL an hour, and Synthroid 100 mcg daily. Repeat potassium and complete metabolic panel has been requested. We will follow with you. Mely Walters MD
[2017-11-11] MEDS: Albuterol-Ipratrop 3 mg / 0.5 (3 ml) UD IH SCH ×2 (01:21→07:30)
[2017-11-11] MEDS: Levothyroxine 100 MCG TAB PO SCH (06:22)
[2017-11-11] MEDS: Pantoprazole 40 mg EC Tab PO SCH (06:22)
[2017-11-11] MEDS: Insulin Human NPH/Reg 70/30 Vial(3 ml) SC SCH ×2 (08:06→12:42)
[2017-11-11 08:09] LABS: ALB/GLOB RATIO 1.1 (1.1-1.8); ALBUMIN 2.7 g/dL (3.0-4.8); ALT/SGPT 101 U/L (7-56); AST/SGOT 127 U/L (17-59); BLOOD UREA NITROGEN 35 mg/dL (7-21); CALCIUM 8.7 mg/dL (8.4-10.5); GFR AFRICAN-AMERICAN > 60; GFR NON-AFRICAN AMERICAN > 60
--- NOTE | 2017-11-11 08:16 | PN ---
DATE: 11/11/2017 PULMONARY NOTE SUBJECTIVE: The patient appears comfortable this morning. He is not short of breath at rest. PHYSICAL EXAMINATION: VITAL SIGNS: (Last noted in the computer): Temperature is 97.4, pulse 80, respirations 18, blood pressure 143/72. Oxygen saturation on nasal cannula is 97%. HEENT: Normocephalic, atraumatic. NECK: No JVD. CARDIOVASCULAR: Systolic ejection murmur at the lower left sternal border. No S3 gallop. LUNGS: Minimal bilateral rhonchi. No wheezing. EXTREMITIES: Positive for edema. No cyanosis, no clubbing. Calves are nontender to palpation. GI: Abdomen is soft, nontender and nondistended. Bowel sounds are positive. SKIN: No acute rash. NEUROLOGIC: Exam limited at the present time. IMPRESSION: 1. Sepsis syndrome. 2. Influenza A positivity. 3. Advanced chronic obstructive pulmonary disease. 4. Coronary artery disease. 5. Chronic kidney disease. 6. Advanced prostate cancer. PLAN: The patient appears very comfortable this morning. He is not short of breath at rest. He does state to feeling much better overall. On physical exam, his bronchospasm is certainly less overall . In addition, the alveolar-arterial gradient is much less. I will continue with the current nebulizer treatments and oral steroids (changed yesterday). I did discuss the case with the night nurse at length. The night nurse stated that the patient is for discharge to a subacute rehab facility later today. I will discuss the above with the attending physician. Kwadwo Arias MD [facility]
[2017-11-11] MEDS: Insulin Reg-MEDIUM-Coverage SC SCH ×2 (10:36→12:42)
[2017-11-11] MEDS: Nystatin 100,000 Units/ml Oral Susp 5 ml UD PO SCH (10:41)
[2017-11-11] MEDS: Digoxin 125 mcg (0.125 mg) Tab PO SCH (10:42)
[2017-11-11 10:46] VITALS: BP 163/83; PULSE 70
--- NOTE | 2017-11-11 11:51 | PN ---
DATE: SUBJECTIVE: The patient is seen in [facility], room 569, bed 1. The patient was admitted with influenza, flu, and urinary tract infection. The patient is seen this morning. He also has severe disability from walking. He has metastatic cancer of the prostate, congestive cardiomyopathy, diabetes mellitus, osteoarthritis and hypothyroidism. PHYSICAL EXAMINATION: VITAL SIGNS: The patient's vital signs this morning, the pulse is 67, blood pressure 140/70, O2 sat is 94% on room air. HEENT: The patient's head is normocephalic. NECK: JVP is flat. Thyroid is not enlarged. LUNGS: Trachea is central. Breath sounds are vesicular. Diminished bilaterally. Occasional rhonchi heard. HEART: Normal sinus rhythm. S1 and S2 present. The patient has a pacemaker and defibrillator for congestive cardiomyopathy. ABDOMEN: Soft. Liver and spleen not palpable. CENTRAL NERVOUS SYSTEM: The patient is conscious, rational, and oriented. No focal deficits. LABORATORY DATA: The patient's blood work done last night showed a hemoglobin of 10.9. The patient's potassium was 4.5 and blood sugar of 117. His BUN and creatinine are elevated. They have been chronically elevated with renal dysfunction stage III to IV. MEDICATIONS: The patient needs multiple medications for multiple diagnoses. The patient is on Augmentin 875/125 b.i.d. The patient is on amiodarone 200 mg daily. The patient is on DuoNeb inhalation therapy, insulin coverage for diabetes, digoxin, Lasix, nystatin oral suspension, calcium carbonate, pantoprazole 40 mg daily, Singulair 10 mg daily, and Synthroid 100 mcg daily. The patient's IV steroid is discontinued and he is now on oral prednisone. The patient's diet is heart-healthy, diabetic. ASSESSMENT AND PLAN: The patient's condition is improved. Yesterday, his potassium was elevated at 5.6. He was given one dose of kayexelate and repeat potassium was 2.6. This was most likely a lab error as potassium done last night was 4.5. As part of the influenza the patient had, he was on isolation. Now that he has completed treatment for flu, he has been taken off isolation. Now the patient needs transfer to [facility] for rehabilitation, deconditioning, and physical therapy. The patient's overall prognosis is guarded. Condition is improved, but the patient still needs help regarding his mobility. He lives by himself, and he has multiple medical problems. Giselle Polk MD [facility]
--- NOTE | 2017-11-11 18:31 | PN ---
DATE: 11/11/2017 SUBJECTIVE: The patient is in bed, in no acute distress, nontoxic. PHYSICAL EXAMINATION: VITAL SIGNS: Temperature is 97, blood pressure is 160/80, respiratory rate of 18, and heart rate of 70. HEENT: Unremarkable. NECK: Supple. LUNGS: Have decreased breath sounds. HEART: Normal S1 and S2. ABDOMEN: Soft and nontender. LABORATORY DATA: Reveals a white count of 10,000, hemoglobin of 10, and platelets of 243. BUN of 35 and creatinine of 0.8. Urinalysis is noted. ASSESSMENT AND PLAN: This is an 87-year-old male, with sepsis, due to influenza, urinary tract infection with Escherichia coli and Enterococcus improving. The patient was seen early this morning, doing well, had completed 5 days of Tamiflu and switched to p.o. Augmentin discharge today. Elliot Hernandez MD
--- NOTE | 2017-11-13 10:28 | DS ---
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 The patient had been sent from [facility] where he was undergoing rehab when he developed fever of 101 with feeling weak and unable to get up from the bed. HOSPITAL COURSE: In the emergency room, the patient's sodium was 130, BUN 44, creatinine 1.6. He was positive for influenza A and started on Tamiflu. The patient was admitted to the general medical floor. Blood, urine, and sputum cultures as well as stool were sent. Stool cultures and blood cultures were negative. Urine culture grew E. coli enterococcus faecalis. Sputum cultures grew up Klebsiella pneumoniae. The patient was given IV meropenem as well as oral doxycycline and Tamiflu for flu. For COPD exacerbation, he was started on IV Solu-Medrol and continued on respiratory treatments. He received wound care by Dr. Lawrence for his ulcer on the heels. Once the patient finished the course of Tamiflu, he was taken off respiratory isolation. He was cleared by Infectious Disease to finish his course of antibiotics as oral Augmentin as he required further physical therapy for weakness and ability to get up on his own from the sitting position, and he was transferred to the [facility] for subacute rehab. DISCHARGE DIAGNOSES: Influenza type A, sepsis, urinary tract infection, chronic obstructive pulmonary disease exacerbation, chronic congestive heart failure, hyponatremia, hypothyroidism, type 2 diabetes, automatic implantable cardioverter-defibrillator, metastatic prostate cancer, coronary artery disease, heel ulcers of the feet. DISCHARGE MEDICATIONS: 70/30, 20 units before breakfast, lunch and dinner; amiodarone 200 mg once a day; digoxin 125 mcg daily; Hectorol 0.5 mcg daily; Lasix 40 mg twice a day; nystatin swish and swallow 5 mL 4 times a day; Os-Pedro 500 mg daily; prednisone 5 mg daily; Protonix 40 mg once a day; Singulair 10 mg daily; Synthroid 100 mcg daily; and Augmentin 875 mg twice a day for 5 days. FOLLOWUP: [facility] [place] [facility]. Sreedhar Polk MD
[2017-11-18] MEDS ORDERED: Amoxicillin-Clav 875-125 mg Tab PO SCH (05:00)
== END 2017-11-11 13:59 | DRG 871 ==
LOC: ED 13:47 → ERH 18:18 → 3RSO 11-05 00:23 → 5RNO 11-06 17:14
PROVIDERS: ADMIT Internal Medicine; ATTEND Internal Medicine
DX: A41.51 Sepsis due to Escherichia coli [E. coli] (principal); J10.08 Influenza due to other identified influenza virus with other specified pneumonia; I50.43 Acute on chronic combined systolic (congestive) and diastolic (congestive) heart failure; N18.4 Chronic kidney disease, stage 4 (severe); J12.9 Viral pneumonia, unspecified; N17.9 Acute kidney failure, unspecified; C77.9 Secondary and unspecified malignant neoplasm of lymph node, unspecified; I13.0 Hypertensive heart and chronic kidney disease with heart failure and stage 1 through stage 4 chronic kidney disease, or unspecified chronic kidney disease; E11.22 Type 2 diabetes mellitus with diabetic chronic kidney disease; I08.3 Combined rheumatic disorders of mitral, aortic and tricuspid valves; I42.0 Dilated cardiomyopathy; E87.1 Hypo-osmolality and hyponatremia; J44.0 Chronic obstructive pulmonary disease with (acute) lower respiratory infection; J44.1 Chronic obstructive pulmonary disease with (acute) exacerbation; N39.0 Urinary tract infection, site not specified; C61 Malignant neoplasm of prostate; D64.9 Anemia, unspecified; I48.0 Paroxysmal atrial fibrillation; E86.0 Dehydration; E03.9 Hypothyroidism, unspecified; E78.5 Hyperlipidemia, unspecified; A41.81 Sepsis due to Enterococcus; H40.9 Unspecified glaucoma; I25.10 Atherosclerotic heart disease of native coronary artery without angina pectoris; I25.2 Old myocardial infarction; I25.5 Ischemic cardiomyopathy; I48.2 Chronic atrial fibrillation; L89.629 Pressure ulcer of left heel, unspecified stage; M19.90 Unspecified osteoarthritis, unspecified site; N40.0 Benign prostatic hyperplasia without lower urinary tract symptoms; T83.031A Leakage of indwelling urethral catheter, initial encounter; W19.XXXA Unspecified fall, initial encounter; Y73.8 Miscellaneous gastroenterology and urology devices associated with adverse incidents, not elsewhere classified; Z78.9 Other specified health status; Z79.899 Other long term (current) drug therapy; Z85.46 Personal history of malignant neoplasm of prostate; Z86.718 Personal history of other venous thrombosis and embolism; Z87.440 Personal history of urinary (tract) infections; Z87.891 Personal history of nicotine dependence; Z88.1 Allergy status to other antibiotic agents; Z89.429 Acquired absence of other toe(s), unspecified side; Z95.0 Presence of cardiac pacemaker; Z95.1 Presence of aortocoronary bypass graft; Z95.5 Presence of coronary angioplasty implant and graft; Z95.810 Presence of automatic (implantable) cardiac defibrillator

== ENCOUNTER 2017-12-07 08:38 | Inpatient (IN) | payer MEDICARE ==
--- NOTE | 2017-12-07 09:22 | ED PDOC ---
Arrival/HPI - General Time Seen by Provider: 12/07/17 09:12 Historian: Patient - History of Present Illness Narrative History of Present Illness (Text): 12/07/17 09:15 Ziggy Amador is an 87 year old male, whose past medical history includes diabetes, hypothyroidism, and prostate cancer with metastases to lymph nodes, who presents to the emergency department complaining of blood in his catheter. Patient reports his nurse noted blood in his catheter located on his penis and advised him to come here. Patient notes his nurse called his PMD to notify him. Patient is also complaining of body aches. No other complaints were made. PMD: Dr. Cochran Urologist: Dr. Louise Time/Duration: Prior to Arrival Symptom Onset: Sudden Symptom Course: Unchanged Context: Home Past Medical History - Provider Review Nursing Documentation Reviewed: Yes - Infectious Disease Hx of Infectious Diseases: None - Tetanus Immunization Tetanus Immunization: Unknown - Cardiac Hx Cardiac Disorders: Yes (stents, afib w/ defibrillator) - Pulmonary Hx Respiratory Disorders: (hs home o2 and nebulizer machine) - Neurological Hx Neurological Disorder: No - HEENT Hx HEENT Disorder: Yes ([place]) Hx Cataracts: Yes (WITH b/t SURGERY) Hx Glaucoma: Yes - Renal Hx Renal Failure: Yes - Endocrine/Metabolic Hx Diabetes Mellitus Type 2: Yes Hx Hypothyroidism: Yes - Hematological/Oncological Hx Blood Disorders: Yes Hx Anemia: Yes (Hx of blood transfusion.) Hx Cancer: Yes (Prostate CA with mets to lymph nodes) Hx Chemotherapy: Yes (Last chemo was 11/17/16.) Other/Comment: Pt dx in 2001 had radiation treatments. Reoccured in 2016. Was taking po chemo, stopped due to recommendation by Dr Carballo as per pt due to pt taking amidorone for 25 yrs. Meds not compatible. - Integumentary Other/Comment: multiple skin discolorations and tatoos both arms, multiple brown skin discolorations ble - Musculoskeletal/Rheumatological Hx Falls: No - Gastrointestinal Hx Gastrointestinal Disorders: No - Genitourinary/Gynecological Hx Genitourinary Disorders: Yes - Psychiatric Hx Emotional Abuse: No Hx Physical Abuse: No Hx Substance Use: No - Surgical History Other/Comment: cardiac stents, 4 quadruple bypass in the past 3 years, indwelling schroeder catheter placement. cystoscopy x3 weeks ago, left shoulder cyst removed 1988 - Anesthesia Hx Anesthesia: Yes Hx Anesthesia Reactions: No Hx Malignant Hyperthermia: No - Suicidal Assessment Feels Threatened In Home Enviroment: No Family/Social History - Physician Review Nursing Documentation Reviewed: Yes Family/Social History: Unknown Family HX Smoking Status: Never Smoked Hx Alcohol Use: No Hx Substance Use: No Hx Substance Use Treatment: No Allergies/Home Meds Allergies/Adverse Reactions: Allergies chocolate flavor Allergy (Verified 12/07/17 13:28) ITCHING Iodinated Contrast- Oral and IV Dye Allergy (Verified 12/07/17 13:28) ANAPHYLAXIS levofloxacin [From Levaquin] Allergy (Verified 12/07/17 13:28) ANAPHYLAXIS Home Medications: Home Meds Medication Instructions Recorded Confirmed Furosemide [Lasix] 40 mg PO BID 05/23/17 12/07/17 Calcium Carbonate [Oscal] 500 mg PO DAILY 07/10/17 12/07/17 Insulin Human NPH/Reg [HumuLIN 20 units SC ACL 07/10/17 12/07/17 70/30 (NPH/Reg)] Review of Systems - Physician Review All systems were reviewed & negative as marked: Yes - Review of Systems Constitutional: absent: Fevers Respiratory: absent: SOB Cardiovascular: absent: Chest Pain Genitourinary Male: Other (blood noted in catheter) Musculoskeletal: Myalgias Physical Exam Vital Signs Reviewed: Yes Vital Signs Temp Pulse Pulse Resp BP Pulse Ox 12/07/17 16:51 97.9 F 65 64 18 143/77 12/07/17 16:18 65 18 143/77 99 12/07/17 14:04 65 18 146/58 L 97 12/07/17 12:00 64 18 148/68 100 12/07/17 10:58 64 17 157/76 H 100 12/07/17 08:49 97.9 F 64 16 152/72 H 97 Temperature: Afebrile Blood Pressure: Hypertensive Pulse: Regular Respiratory Rate: Normal Appearance: Positive for: Well-Appearing, Non-Toxic, Comfortable Pain Distress: None Mental Status: Positive for: Alert and Oriented X 3 - Systems Exam Head: Present: Atraumatic, Normocephalic Pupils: Present: PERRL Extroacular Muscles: Present: EOMI Conjunctiva: Present: Normal Respiratory/Chest: Present: Clear to Auscultation, Good Air Exchange, Other ( port on right upper side of chest). No: Respiratory Distress, Accessory Muscle Use Cardiovascular: Present: Regular Rate and Rhythm, Normal S1, S2. No: Murmurs Abdomen: Present: Normal Bowel Sounds. No: Tenderness, Distention, Peritoneal Signs Genitourinary Male: Present: Other (catheter on penis with blood) Neurological: Present: GCS=15, CN II-XII Intact, Speech Normal Skin: Present: Warm, Dry, Normal Color. No: Rashes Psychiatric: Present: Alert, Oriented x 3, Normal Insight, Normal Concentration Medical Decision Making ED Course and Treatment: 12/07/17 Impression: 87 year old male with blood in catheter. Plan: -- EKG -- Chest X-ray -- Labs -- Reassess and disposition Progress Notes: EKG: Ordered, reviewed, and independently interpreted the EKG. Rate : 63 BPM Rhythm : NSR Interpretation : electronic ventricular pacemaker 12/07/17 12:39 Dr. Malin stopped by to see patient and agrees with plan of patient needing continuos bladder irrigation. Case also discussed with Dr. Louise, patient's urologist. - Lab Interpretations Lab Results: 12/07/17 10:30 12/07/17 10:30 Lab Results 12/07/17 11:17: Urine Color Red, Urine Appearance Slight-cloudy, Urine pH 7.0, Ur Specific [place] 1.015, Urine Protein 30 H, Urine Glucose (UA) Negative, Urine Ketones Negative, Urine Blood Large H, Urine Nitrate Positive H, Urine Bilirubin Small H, Urine Urobilinogen 1.0 H, Ur Leukocyte Esterase Large H, Urine RBC Tntc, Urine WBC 10 - 15, Ur Epithelial Cells None 12/07/17 10:30: Sodium 141, Chloride 99, Potassium 5.0, Carbon Dioxide 33, Anion Gap 14, BUN 48 H, Creatinine 1.0, Est GFR ( Amer) > 60, Est GFR ( Non-Af Amer) > 60, Random Glucose 250 H, Calcium 9.0, Total Bilirubin 0.6, AST 66 H D, ALT 53, Alkaline Phosphatase 326 H D, Total Protein 6.6, Albumin 3.6, Globulin 3.0, Albumin/Globulin Ratio 1.2 12/07/17 10:30: pO2 23 L, VBG pH 7.39, VBG pCO2 60.0, VBG HCO3 36.3 H, VBG Total CO2 38.1 H, VBG O2 Sat (Calc) 48.8, VBG Base Excess 9.1 H, VBG Potassium 7.2 H*, Sodium 135.0, Chloride 101.0, Glucose 262 H, Lactate 1.3, FiO2 21.0, Venous Blood Potassium 7.2 H* 12/07/17 10:30: PT 13.2 H, INR 1.14 H 12/07/17 10:30: WBC 8.6 D, RBC 3.81, Hgb 10.9 L, Hct 34.2 L, MCV 89.8, MCH 28.6 , MCHC 31.9, RDW 17.6 H, Plt Count 268, MPV 10.1, Gran % 83.6 H, Lymph % (Auto) 9.5 L, [place] % (Auto) 6.3 H, Eos % (Auto) 0.4 L, Baso % (Auto) 0.2, Gran # 7.15 H , Lymph # (Auto) 0.8 L, [place] # (Auto) 0.5, Eos # (Auto) 0.0, Baso # (Auto) 0.02 I have reviewed the lab results: Yes - EKG Interpretation Interpreted by ED Physician: Yes Type: 12 lead EKG - Medication Orders Current Medication Orders: Amiodarone HCl (Cordarone) 200 mg PO DAILY [facility] Calcium Carbonate (Oscal) 500 mg PO DAILY [facility] Digoxin (Digoxin) 0.125 mg PO 1400 [facility] Doxercalciferol (Hectorol) 0.5 mcg PO DAILY [facility] Furosemide (Lasix) 40 mg PO BID [facility] Insulin Human Regular (Humulin R Med) 0 units SC ACHS [facility] PRN Reason: Protocol Levothyroxine Sodium (Synthroid) 100 mcg PO 0600 [facility] Montelukast Sodium (Singulair) 10 mg PO DAILY [facility] Morphine Sulfate (Morphine) 0.5 mg SC Q4 PRN PRN Reason: Pain, severe (8-10) Pantoprazole Sodium (Protonix Ec Tab) 40 mg PO 0600 [facility] Polyethylene Glycol (Miralax) 17 gm PO DAILY [facility] Prednisone (Prednisone Tab) 5 mg PO DAILY [facility] Tramadol HCl (Ultram) 50 mg PO TID PRN PRN Reason: Pain, moderate (4-7) Discontinued Medications Sodium Chloride (Sodium Chloride 0.9%) 1,000 mls @ 999 mls/hr IV .Q1H1M STA Stop: 12/07/17 10:49 Last Admin: 12/07/17 11:02 Dose: 999 mls/hr eMAR Start Stop Document 12/07/17 11:02 SF (Rec: 12/07/17 11:02 SF [id number]) Intravenous Solution Start Date 12/07/17 Start Time 11:02 End Date 12/07/17 End time 12:03 Total Infusion Time 61 Ceftriaxone Sodium (Rocephin 1 Gram Ivpb) 1 gm in 100 mls @ 200 mls/hr IVPB STAT STA PRN Reason: Protocol Stop: 12/07/17 13:26 Last Admin: 12/07/17 14:13 Dose: 200 mls/hr eMAR Start Stop Document 12/07/17 14:13 SF (Rec: 12/07/17 14:30 SF [id number]) Intravenous Solution Start Date 12/07/17 Start Time 14:13 End Date 12/07/17 End time 14:43 Total Infusion Time 30 Pneumococcal Polyvalent Vaccine (Pneumovax 23 Vaccine) 0.5 ml IM .ONCE ONE Stop: 12/07/17 17:26 - PA / [employer] SAL[employer] / Resident Statement MD/DO has reviewed & agrees with the documentation as recorded. - Scribe Statement The provider has reviewed the documentation as recorded by the Robin Galeana Provider Scribe Attestation: All medical record entries made by the Robin were at my direction and personally dictated by me. I have reviewed the chart and agree that the record accurately reflects my personal performance of the history, physical exam, medical decision making, and the department course for this patient. I have also personally directed, reviewed, and agree with the discharge instructions and disposition. Disposition/Present on Arrival - Present on Arrival Any Indicators Present on Arrival: No History of DVT/PE: No History of Uncontrolled Diabetes: Yes Urinary Catheter: Yes History of Decub. Ulcer: No History Surgical Site Infection Following: None - Disposition Have Diagnosis and Disposition been Completed?: Yes Diagnosis: Hematuria, Prostate cancer, Dehydration, Urinary tract infection Disposition: HOSPITALIZED Disposition Time: 13:30 Patient Plan: Admission Patient Problems: Current Active Problems Problem Status Onset Dehydration Acute Hematuria Acute Prostate cancer Acute Urinary tract infection Acute Condition: GOOD
[2017-12-07 09:41] VITALS: BMI 22.2
[2017-12-07] MEDS ORDERED: Sodium Chloride 0.9% 1,000 ML IV STA (09:49)
[2017-12-07 11:05] LABS: VENOUS BLOOD GAS BASE EXCESS 9.1 mmol/L (0.0-2.0); VENOUS BLOOD GAS PO2 23 mm/Hg (30-55); VENOUS BLOOD PH 7.39 (7.32-7.43)
[2017-12-07 11:20] LABS: ALB/GLOB RATIO 1.2 (1.1-1.8); ALBUMIN 3.6 g/dL (3.0-4.8); ALT/SGPT 53 U/L (7-56); AST/SGOT 66 U/L (17-59); BASO # 0.02 K/mm3 (0.0-2.0); BASO % 0.2 % (0.0-3.0); BLOOD UREA NITROGEN 48 mg/dL (7-21); EOS % 0.4 % (1.5-5.0); GFR AFRICAN-AMERICAN > 60; GFR NON-AFRICAN AMERICAN > 60; GRAN # 7.15 (1.4-6.5); GRAN % 83.6 % (50.0-68.0); HEMOGLOBIN 10.9 g/dL (14.0-18.0); LYMPH # 0.8 (1.2-3.4); LYMPH % 9.5 % (22.0-35.0); MEAN CELL VOLUME 89.8 fl (80.0-105.0); MEAN CORPUSCULAR HEMOGLOBIN 28.6 pg (25.0-35.0); MEAN CORPUSCULAR HGB CONC 31.9 g/dl (31.0-37.0); MEAN PLATELET VOLUME 10.1 fl (7.0-11.0); MONO # 0.5 (0.1-0.6); MONO % 6.3 % (1.0-6.0); RBC 3.81 10^6/uL (3.5-6.1); RED CELL DISTRIBUTION WIDTH 17.6 % (11.5-14.5); WHITE BLOOD COUNT 8.6 10^3/ul (4.5-11.0)
[2017-12-07 11:23] LABS: INR 1.14 (0.93-1.08); PROTHROMBIN TIME 13.2 SECONDS (9.4-12.5)
[2017-12-07 11:23] LABS: URINE BILIRUBIN SMALL (NEGATIVE); URINE BLOOD LARGE (NEGATIVE); URINE GLUCOSE (UA) NEGATIVE (NEGATIVE); URINE LEUKOCYTE ESTERASE LARGE Leu/uL (NEGATIVE); URINE NITRATE POSITIVE (NEGATIVE); URINE PROTEIN 30 mg/dL (<30 mg/dL)
[2017-12-07 11:24] LABS: URINE APPEARANCE SLIGHT-CLOUDY (CLEAR); URINE COLOR RED (YELLOW)
[2017-12-07 11:36] LABS: URINE RBC TNTC /hpf (0-2)
--- NOTE | 2017-12-07 11:50 | CP.PCM.HP ---
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 He began to notice bright red blood in his chronic indwelling schroeder catheter. He also complains of weakness and pain in the groin and buttocks. Present on Admission - Present on Admission Any Indicators Present on Admission: Yes History of DVT/PE: Yes History of Uncontrolled Diabetes: No Urinary Catheter: Yes Review of Systems - Constitutional Constitutional: Weight Loss. absent: Chills, Fever - Cardiovascular Cardiovascular: absent: Chest Pain, Diaphoresis, Dyspnea - Respiratory Respiratory: absent: Cough, Dyspnea, Hemoptysis - Gastrointestinal Gastrointestinal: Diarrhea. absent: Nausea, Vomiting - Genitourinary Genitourinary: As Per HPI, Hematuria Past Patient History - Infectious Disease Hx of Infectious Diseases: None - Tetanus Immunizations Tetanus Immunization: Unknown - Past Medical History & Family History Past Medical History?: Yes - Past Social History Smoking Status: Never Smoked - CARDIAC Hx Cardiac Disorders: Yes (stents, afib w/ defibrillator) - PULMONARY Hx Respiratory Disorders: Yes (hs home o2 and nebulizer machine) Hx Chronic Obstructive Pulmonary Disease (COPD): Yes Hx Emphysema: Yes - NEUROLOGICAL Hx Neurological Disorder: No - HEENT Hx HEENT Problems: Yes ([place]) Hx Cataracts: Yes (WITH b/t SURGERY) Hx Glaucoma: Yes - RENAL Hx Chronic Kidney Disease: No - ENDOCRINE/METABOLIC Hx Endocrine Disorders: Yes Hx Diabetes Mellitus Type 2: Yes Hx Hypothyroidism: Yes - HEMATOLOGICAL/ONCOLOGICAL Hx Blood Disorders: Yes Hx Anemia: Yes (Hx of blood transfusion.) Hx Cancer: Yes (Prostate CA with mets to lymph nodes) Hx Chemotherapy: Yes (Last chemo was 11/17/16.) Other/Comment: Pt dx in 2001 had radiation treatments. Reoccured in 2016. Was taking po chemo, stopped due to recommendation by Dr Carballo as per pt due to pt taking amidorone for 25 yrs. Meds not compatible. - INTEGUMENTARY Hx Dermatological Problems: Yes Other/Comment: multiple skin discolorations and tatoos both arms, multiple brown skin discolorations ble - MUSCULOSKELETAL/RHEUMATOLOGICAL Hx Falls: No - GASTROINTESTINAL Hx Gastrointestinal Disorders: No - GENITOURINARY/GYNECOLOGICAL Hx Genitourinary Disorders: Yes Hx Prostate Cancer: Yes - PSYCHIATRIC Hx Psychophysiologic Disorder: No Hx Emotional Abuse: No Hx Physical Abuse: No Hx Substance Use: No - SURGICAL HISTORY Hx Surgeries: Yes Other/Comment: cardiac stents, 4 quadruple bypass in the past 3 years, indwelling schroeder catheter placement. cystoscopy x3 weeks ago, left shoulder cyst removed 1989 - ANESTHESIA Hx Anesthesia: Yes Hx Anesthesia Reactions: No Hx Malignant Hyperthermia: No Meds Home Medications: Home Medication List Medication Instructions Recorded Confirmed Type Albuterol/Ipratropium [Duoneb 3 3 ml IH [id number] neb 12/10/17 Rx mg/0.5 mg (3 ml) UD] Amiodarone [Cordarone] 200 mg PO DAILY tab 12/10/17 Rx Calcium Carbonate [Oscal] 500 mg PO DAILY tab 12/10/17 Rx Digoxin 0.125 mg PO 1400 tab 12/10/17 Rx Doxercalciferol [Hectorol] 0.5 mcg PO DAILY cap 12/10/17 Rx Furosemide [Lasix] 40 mg PO BID tab 12/10/17 Rx Insulin Human Regular-MED [HumuLIN 0 units SC ACHS ml 12/10/17 Rx R MED] Levothyroxine [Synthroid] 100 mcg PO 0600 tab 12/10/17 Rx Montelukast [Singulair] 10 mg PO DAILY tab 12/10/17 Rx Morphine 0.5 mg SC Q4 PRN ml 12/10/17 Rx Pantoprazole [Protonix EC Tab] 40 mg PO 0600 ect 12/10/17 Rx Polyethylene Glycol 3350 [Miralax] 17 gm PO DAILY packet 12/10/17 Rx predniSONE [predniSONE Tab] 5 mg PO DAILY tab 12/10/17 Rx traMADol [Ultram] 50 mg PO TID PRN tab 12/10/17 Rx Allergies/Adverse Reactions: Allergies Allergy/AdvReac Type Severity Reaction Status Date / Time chocolate flavor Allergy ITCHING Verified 12/07/17 13:28 Iodinated Contrast- Oral and Allergy ANAPHYLAXIS Verified 12/07/17 13:28 IV Dye levofloxacin [From Levaquin] Allergy ANAPHYLAXIS Verified 12/07/17 13:28 Physical Exam - Head Exam Head Exam: ATRAUMATIC, NORMOCEPHALIC - Respiratory Exam Respiratory Exam: Decreased Breath Sounds, NORMAL BREATHING PATTERN - Cardiovascular Exam Cardiovascular Exam: +S1, +S2 - GI/Abdominal Exam Additional comments: + schroeder catheter with red colored urine - Neurological Exam Neurological exam: Alert, CN II-XII Intact, Oriented x3 Results - Vital Signs Recent Vital Signs: Last Vital Signs Temp 97.9 F 12/07/17 08:49 Pulse 64 12/07/17 10:58 Resp 17 12/07/17 10:58 BP 157/76 H 12/07/17 10:58 Pulse Ox 100 12/07/17 10:58 - Labs Result Diagrams: 12/10/17 08:05 12/10/17 08:05 Labs: Laboratory Results - last 24 hr 12/07/17 12/07/17 12/07/17 10:30 10:30 10:30 WBC 8.6 D RBC 3.81 Hgb 10.9 L Hct 34.2 L MCV 89.8 MCH 28.6 MCHC 31.9 RDW 17.6 H Plt Count 268 MPV 10.1 Gran % 83.6 H Lymph % (Auto) 9.5 L [place] % (Auto) 6.3 H Eos % (Auto) 0.4 L Baso % (Auto) 0.2 Gran # 7.15 H Lymph # (Auto) 0.8 L [place] # (Auto) 0.5 Eos # (Auto) 0.0 Baso # (Auto) 0.02 PT 13.2 H INR 1.14 H pO2 23 L VBG pH 7.39 VBG pCO2 60.0 VBG HCO3 36.3 H VBG Total CO2 38.1 H VBG O2 Sat (Calc) 48.8 VBG Base Excess 9.1 H VBG Potassium 7.2 H* Sodium 135.0 Chloride 101.0 Glucose 262 H Lactate 1.3 FiO2 21.0 Potassium Carbon Dioxide Anion Gap BUN Creatinine Est GFR ( Amer) Est GFR (Non-Af Amer) Random Glucose Calcium Total Bilirubin AST ALT Alkaline Phosphatase Total Protein Albumin Globulin Albumin/Globulin Ratio Venous Blood Potassium 7.2 H* Urine Color Urine Appearance Urine pH Ur Specific [place] Urine Protein Urine Glucose (UA) Urine Ketones Urine Blood Urine Nitrate Urine Bilirubin Urine Urobilinogen Ur Leukocyte Esterase Urine RBC Urine WBC Ur Epithelial Cells 12/07/17 12/07/17 10:30 11:17 WBC RBC Hgb Hct MCV MCH MCHC RDW Plt Count MPV Gran % Lymph % (Auto) [place] % (Auto) Eos % (Auto) Baso % (Auto) Gran # Lymph # (Auto) [place] # (Auto) Eos # (Auto) Baso # (Auto) PT INR pO2 VBG pH VBG pCO2 VBG HCO3 VBG Total CO2 VBG O2 Sat (Calc) VBG Base Excess VBG Potassium Sodium 141 Chloride 99 Glucose Lactate FiO2 Potassium 5.0 Carbon Dioxide 33 Anion Gap 14 BUN 48 H Creatinine 1.0 Est GFR ( Amer) > 60 Est GFR (Non-Af Amer) > 60 Random Glucose 250 H Calcium 9.0 Total Bilirubin 0.6 AST 66 H D ALT 53 Alkaline Phosphatase 326 H D Total Protein 6.6 Albumin 3.6 Globulin 3.0 Albumin/Globulin Ratio 1.2 Venous Blood Potassium Urine Color Red Urine Appearance Slight-cloudy Urine pH 7.0 Ur Specific [place] 1.015 Urine Protein 30 H Urine Glucose (UA) Negative Urine Ketones Negative Urine Blood Large H Urine Nitrate Positive H Urine Bilirubin Small H Urine Urobilinogen 1.0 H Ur Leukocyte Esterase Large H Urine RBC Tntc Urine WBC 10 - 15 Ur Epithelial Cells None Assessment & Plan - Assessment and Plan (Free Text) Assessment: Hematuria Chronic heart failure COPD CAD Cardiac arrhythmia DMII Hypothyroidism Plan: Patient with recurrent hematuria. Patient had multiple episodes of hematuria in the past which seemed to resolve after cauterization by Dr. Louise. We will begin bladder irrigation and consult Dr. Louise for the hematuria. We will give him Tramadol for the pain and low dose of Morphine as needed for severe pain. We will continue his maintenance medications. We will also send the urine for culture and consult infectious disease for possible urinary tract infection.
[2017-12-07] MEDS ORDERED: cefTRIAXone 1 gm 1 GM/100 ML BAG IVPB STA (12:57)
[2017-12-07] MEDS ORDERED: Morphine 2 mg/ml ISec SC PRN (17:01)
[2017-12-07] MEDS ORDERED: Pneumococcal 23-Valent Vaccine IM ONE (17:25)
[2017-12-07] MEDS ORDERED: Influenza Vaccine 60 mcg/0.5 mL SYR (4YR UP) IM ONE (17:25)
--- NOTE | 2017-12-07 18:58 | CARD ---
APPROVED REPORT EKG Measurement Heart [id number] <Conclusion> Electronic ventricular pacemaker
[2017-12-08] MEDS: Insulin Reg-MEDIUM-Coverage SC SCH ×5 (03:02→21:47)
[2017-12-08] MEDS: Pantoprazole 40 mg EC Tab PO SCH (05:42)
[2017-12-08] MEDS: Levothyroxine 100 MCG TAB PO SCH (05:42)
[2017-12-08] MEDS ORDERED: Albuterol-Ipratrop 3 mg / 0.5 (3 ml) UD IH PRN (07:01)
[2017-12-08 07:40] LABS: BASO # 0.02 K/mm3 (0.0-2.0); BASO % 0.3 % (0.0-3.0); EOS # 0.2 (0.0-0.7); EOS % 2.6 % (1.5-5.0); GRAN # 5.04 (1.4-6.5); GRAN % 71.9 % (50.0-68.0); HEMOGLOBIN 10.5 g/dL (14.0-18.0); LYMPH # 1.1 (1.2-3.4); LYMPH % 16.1 % (22.0-35.0); MEAN CELL VOLUME 91.2 fl (80.0-105.0); MEAN CORPUSCULAR HEMOGLOBIN 28.2 pg (25.0-35.0); MEAN CORPUSCULAR HGB CONC 30.9 g/dl (31.0-37.0); MEAN PLATELET VOLUME 9.3 fl (7.0-11.0); MONO # 0.6 (0.1-0.6); MONO % 9.1 % (1.0-6.0); RBC 3.73 10^6/uL (3.5-6.1); RED CELL DISTRIBUTION WIDTH 17.2 % (11.5-14.5)
[2017-12-08 07:56] LABS: ALB/GLOB RATIO 1.1 (1.1-1.8); ALT/SGPT 60 U/L (7-56); AST/SGOT 74 U/L (17-59); BLOOD UREA NITROGEN 29 mg/dL (7-21); CALCIUM 8.9 mg/dL (8.4-10.5); GFR AFRICAN-AMERICAN > 60; GFR NON-AFRICAN AMERICAN > 60
[2017-12-08] MEDS: Albuterol-Ipratrop 3 mg / 0.5 (3 ml) UD IH SCH ×3 (08:07→20:43)
--- NOTE | 2017-12-08 08:20 | CP.PCM.PN ---
Subjective - Date & Time of Evaluation Date of Evaluation: 12/08/17 Time of Evaluation: 07:45 - Subjective Subjective: Patient is seen this morning. The bladder is being irrigated and urine appears to be clearing. Objective - Vital Signs/Intake and Output Vital Signs (last 24 hours): Temp Pulse Resp BP Pulse Ox 97.8 F 60 18 155/69 H 96 12/07/17 21:15 12/07/17 21:15 12/07/17 21:15 12/07/17 21:15 12/07/17 21:15 Intake and Output: 12/08/17 12/08/17 06:59 18:59 Intake Total 240 Output Total 2165 2500 Balance -1925 -2500 - Medications Medications: Current Medications Albuterol/Ipratropium (Duoneb 3 Mg/0.5 Mg (3 Ml) Ud) 3 ml IH [id number] [facility] Last Admin: 12/08/17 08:07 Dose: 3 ml Albuterol/Ipratropium (Duoneb 3 Mg/0.5 Mg (3 Ml) Ud) 3 ml IH Q2H PRN PRN Reason: Shortness of Breath Amiodarone HCl (Cordarone) 200 mg PO DAILY [facility] Calcium Carbonate (Oscal) 500 mg PO DAILY [facility] Digoxin (Digoxin) 0.125 mg PO 1400 [facility] Doxercalciferol (Hectorol) 0.5 mcg PO DAILY [facility] Furosemide (Lasix) 40 mg PO BID [facility] Last Admin: 12/07/17 20:15 Dose: 40 mg Insulin Human Regular (Humulin R Med) 0 units SC ACHS [facility] PRN Reason: Protocol Last Admin: 12/08/17 03:02 Dose: Not Given Levothyroxine Sodium (Synthroid) 100 mcg PO 0600 [facility] Last Admin: 12/08/17 05:42 Dose: 100 mcg Montelukast Sodium (Singulair) 10 mg PO DAILY [facility] Morphine Sulfate (Morphine) 0.5 mg SC Q4 PRN PRN Reason: Pain, severe (8-10) Pantoprazole Sodium (Protonix Ec Tab) 40 mg PO 0600 [facility] Last Admin: 12/08/17 05:42 Dose: 40 mg Polyethylene Glycol (Miralax) 17 gm PO DAILY [facility] Prednisone (Prednisone Tab) 5 mg PO DAILY [facility] Tramadol HCl (Ultram) 50 mg PO TID PRN PRN Reason: Pain, moderate (4-7) Last Admin: 12/07/17 17:55 Dose: 50 mg - Labs Labs: 12/08/17 07:20 12/08/17 07:20 PT 13.2 SECONDS (9.4-12.5) H 12/07/17 10:30 INR 1.14 (0.93-1.08) H 12/07/17 10:30 - Constitutional Appears: No Acute Distress - Head Exam Head Exam: ATRAUMATIC, NORMOCEPHALIC - Cardiovascular Exam Cardiovascular Exam: +S1, +S2 - GI/Abdominal Exam GI & Abdominal Exam: Soft, Normal Bowel Sounds - Neurological Exam Neurological Exam: Alert, Awake, Oriented x3 Assessment and Plan - Assessment and Plan (Free Text) Assessment: Hematuria UTI COPD CAD/Chronic heart failure history of cardiac arrhythmia metastatic prostate cancer Plan: Patient has pain in his back and abdomen. Urine is clearing up with continuous bladder irrigation. Awaiting Dr. Louise to evaluate the patient. Patient says blood clots were passing through the catheter. Awaiting results of urine culture. Infectious disease consult regarding antibiotics. Patient was recently on antibiotics for E. coli urinary tract infection. Will order PT to ambulate the patient.
[2017-12-08] MEDS: POLYETHYLENE GLYCOL 3350 17 GM/Dose PACKET PO SCH (09:09)
[2017-12-08] MEDS: Insulin Human NPH/Reg 70/30 Vial(3 ml) SC SCH (12:34)
--- NOTE | 2017-12-08 13:21 | CP.PCM.CON ---
History of Present Illness - History of Present Illness History of Present Illness: 7 year old male with PMH of ight foot necrotic ulcer with cellulitis, UTI with Enterococcus and Klebsiella, chronic renal failure, history of DVT, DM, metastatic Prostate CA, history of Enterococcus UTI, atrial fibrillation, S/P pacemaker and defibrillator placement, chronic CHF, COPD, hypothyroidism [place] [facility] [place]. He denies fever or chills, no nausea or vomiting , no flank pain, has a Chronic schroeder indwelling catheter, no abdominal pain, no diarrhea, no headache or dizziness, no chest pain, no SOB, no cough or colds. Urine culture is showing gram negative bacilli. Infectious diseases consult is requested to further evaluate and manage. Review of Systems - Review of Systems All systems: reviewed and no additional remarkable complaints except (as per HPI ) Past Patient History - Infectious Disease Hx of Infectious Diseases: None - Tetanus Immunizations Tetanus Immunization: Unknown - Past Medical History & Family History Past Medical History?: Yes - Past Social History Smoking Status: Never Smoked - CARDIAC Hx Cardiac Disorders: Yes (stents, afib w/ defibrillator) - PULMONARY Hx Respiratory Disorders: (hs home o2 and nebulizer machine) - NEUROLOGICAL Hx Neurological Disorder: No - HEENT Hx HEENT Problems: Yes ([place]) Hx Cataracts: Yes (WITH b/t SURGERY) Hx Glaucoma: Yes - RENAL Hx Renal Failure: Yes - ENDOCRINE/METABOLIC Hx Diabetes Mellitus Type 2: Yes Hx Hypothyroidism: Yes - HEMATOLOGICAL/ONCOLOGICAL Hx Blood Disorders: Yes Hx Anemia: Yes (Hx of blood transfusion.) Hx Cancer: Yes (Prostate CA with mets to lymph nodes) Hx Chemotherapy: Yes (Last chemo was 11/17/16.) Other/Comment: Pt dx in 2001 had radiation treatments. Reoccured in 2016. Was taking po chemo, stopped due to recommendation by Dr Carballo as per pt due to pt taking amidorone for 25 yrs. Meds not compatible. - INTEGUMENTARY Other/Comment: multiple skin discolorations and tatoos both arms, multiple brown skin discolorations ble - MUSCULOSKELETAL/RHEUMATOLOGICAL Hx Falls: No - GASTROINTESTINAL Hx Gastrointestinal Disorders: No - GENITOURINARY/GYNECOLOGICAL Hx Genitourinary Disorders: Yes - PSYCHIATRIC Hx Emotional Abuse: No Hx Physical Abuse: No Hx Substance Use: No - SURGICAL HISTORY Other/Comment: cardiac stents, 4 quadruple bypass in the past 3 years, indwelling schroeder catheter placement. cystoscopy x3 weeks ago, left shoulder cyst removed 1988 - ANESTHESIA Hx Anesthesia: Yes Hx Anesthesia Reactions: No Hx Malignant Hyperthermia: No Meds Allergies/Adverse Reactions: Allergies Allergy/AdvReac Type Severity Reaction Status Date / Time chocolate flavor Allergy ITCHING Verified 12/07/17 13:28 Iodinated Contrast- Oral and Allergy ANAPHYLAXIS Verified 12/07/17 13:28 IV Dye levofloxacin [From Levaquin] Allergy ANAPHYLAXIS Verified 12/07/17 13:28 - Medications Medications: Current Medications Amiodarone HCl (Cordarone) 200 mg PO DAILY [facility] Calcium Carbonate (Oscal) 500 mg PO DAILY [facility] Digoxin (Digoxin) 0.125 mg PO 1400 [facility] Doxercalciferol (Hectorol) 0.5 mcg PO DAILY [facility] Furosemide (Lasix) 40 mg PO BID [facility] Last Admin: 12/07/17 20:15 Dose: 40 mg Insulin Human Regular (Humulin R Med) 0 units SC ACHS [facility] PRN Reason: Protocol Last Admin: 12/08/17 03:02 Dose: Not Given Levothyroxine Sodium (Synthroid) 100 mcg PO 0600 [facility] Last Admin: 12/08/17 05:42 Dose: 100 mcg Montelukast Sodium (Singulair) 10 mg PO DAILY [facility] Morphine Sulfate (Morphine) 0.5 mg SC Q4 PRN PRN Reason: Pain, severe (8-10) Pantoprazole Sodium (Protonix Ec Tab) 40 mg PO 0600 [facility] Last Admin: 12/08/17 05:42 Dose: 40 mg Polyethylene Glycol (Miralax) 17 gm PO DAILY [facility] Prednisone (Prednisone Tab) 5 mg PO DAILY [facility] Tramadol HCl (Ultram) 50 mg PO TID PRN PRN Reason: Pain, moderate (4-7) Last Admin: 12/07/17 17:55 Dose: 50 mg Physical Exam - Constitutional Appears: Chronically Ill - Head Exam Head Exam: NORMAL INSPECTION - ENT Exam ENT Exam: Mucous Membranes Moist - Neck Exam Neck exam: Negative for: Meningismus - Respiratory Exam Respiratory Exam: Decreased Breath Sounds - Cardiovascular Exam Cardiovascular Exam: +S1, +S2 - GI/Abdominal Exam GI & Abdominal Exam: Soft. absent: Tenderness Additional comments: chronic indwelling Schroeder catheter Results - Vital Signs Recent Vital Signs: Last Vital Signs Temp 97.8 F 12/07/17 21:15 Pulse 60 12/07/17 21:15 Resp 18 12/07/17 21:15 BP 155/69 H 12/07/17 21:15 Pulse Ox 96 12/07/17 21:15 - Labs Result Diagrams: 12/08/17 07:20 12/08/17 07:20 Labs: Laboratory Results - last 24 hr 12/07/17 12/07/17 17:00 22:07 POC Glucose (mg/dL) 163 H 160 H Assessment & Plan - Assessment and Plan (Free Text) Plan: Assessment consider complicated UTI with gram negative bacilli in this patient with chronic indwelling Schroeder catheter history of sepsis due to systemic viral illness with Influenza as well as UTI with E. coli and E. faecalis history of severe sepsis with acute renal failure due to E. 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 diff. associated diarrhea S/P lower urinary tract infection in a patient with indwelling Schroeder catheter growing Carbapenem-resistant Klebsiella history of right foot necrotic ulcer with surrounding cellulitis UTI with Enterococcus and Klebsiella chronic renal failure history of DVT DM metastatic Prostate CA history of Enterococcus UTI chronic atrial fibrillation S/P pacemaker and ICD placement Plan based on previous cultures, we have started Cefazolin pending identification and sensitivities of the gram negative bacilli in the urine; would recommend change of Schroeder catheter when feasible
[2017-12-08] MEDS: Digoxin 125 mcg (0.125 mg) Tab PO SCH (13:55)
[2017-12-08] MEDS: ceFAZolin 1 gm in NS 1 GM/100 ML BAG IVPB SCH ×2 (13:55→21:46)
--- NOTE | 2017-12-08 16:07 | CON ---
DATE: 12/08/2017 PULMONARY CONSULTATION REASON FOR CONSULTATION: Chronic obstructive pulmonary disease. REFERRING PHYSICIAN: Dr. Polk. HISTORY OF PRESENT ILLNESS: The patient is a chronically ill 87-year-old male, with past medical history significant for advanced prostate cancer (with metastasis to the bone and lymph nodes), advanced chronic obstructive pulmonary disease (on home oxygen), chronic congestive heart failure, cardiomyopathy, advanced coronary artery disease, cardiac arrhythmias, who presents to [facility], [place] with bright red blood in his chronic indwelling Avendano. The patient also appeared very weak in the emergency room. He was thus admitted for additional evaluation. The patient is not short of breath at rest. He does have chronic mild dyspnea on exertion. He also has a minimal chronic cough with occasional sputum production. There is no history of chest pain, coughing up of blood or chest pain - made worse with deep respirations. There is no history of temperatures, chills or infectious exposure. There is no history of night sweats. The patient has lost weight with a decrease in his appetite over the past year. No history of calf pains. No history of syncope or diaphoresis. No history of recent travel or trauma. REVIEW OF SYSTEMS: No history of nausea, vomiting or diarrhea. No acute musculoskeletal complaints. Rest of the review of systems is negative. ALLERGIES: TO IV DYE AND LEVOFLOXACIN. SOCIAL HISTORY: Positive for tobacco and negative for alcohol. FAMILY HISTORY: No inheritable diseases. HOME MEDICATIONS: Include prednisone, Protonix, Zofran, Singulair, Synthroid, Humulin, Lasix, digoxin, Os-Pedro, Cordarone. PHYSICAL EXAMINATION: GENERAL: The patient appears comfortable at rest. He is not short of breath. VITAL SIGNS: (Last noted in the computer): Temperature is 97.8, pulse 60, respirations 18, blood pressure 155/69. Oxygen saturation on room air is 96%. HEENT: Normocephalic, atraumatic. No JVD. CARDIOVASCULAR: Systolic ejection murmur at the lower left sternal border. No S3 gallop. LUNGS: Decreased breath sounds at the bases. Minimal bilateral rhonchi. No wheezing. EXTREMITIES: Positive for mild edema. No cyanosis. No clubbing. Calves are nontender to palpation. GI: Abdomen is soft, nontender and nondistended. Bowel sounds are positive. SKIN: No acute rash. NEUROLOGIC: Limited at the present time. PERTINENT LABORATORY DATA: Chest x-ray was last done on 11/06/2017. On that film, minimal airspace disease at the left base was noted. CBC: White count 8.6, hemoglobin 10.9, hematocrit 34.2, platelets of 268,000. Complete metabolic profile: BUN 48, glucose 250, AST 66, alkaline phosphatase 326. Rest of the metabolic profile is within normal limits. IMPRESSION: 1. Hematuria. 2. Advanced prostate cancer. 3. Advanced chronic obstructive pulmonary disease. 4. Advanced coronary artery disease. 5. Chronic kidney disease. 6. Chronic anemia. PLAN: The patient presents to [facility], [place] - after he saw bright red blood in his chronic urinary Avendano catheter. In addition, as above, the patient was also noted to be very weak. He was thus admitted for additional evaluation. I did talk with the patient at length this morning. He reports no new significant pulmonary complaints. On physical exam, his lungs actually sound better - compared to the past admission. In addition, there is no significant alveolar-arterial gradient. Oxygen saturation on room air is 96%. I will continue the patient on DuoNeb treatments for now. The patient is also on a very low-dose of prednisone chronically. Again, he has had major problems with inhaled steroids in the past, so I will not order them for now. Consultations for Cardiology, Infectious Disease and genitourinary have been ordered. The patient does state to feeling better this morning and is clinically improved. However, unfortunately, the overall status/prognosis for this patient is poor. I will discuss the above with the attending physician. Thank you very much for this pulmonary consultation. Kwadwo Arias MD [facility]
--- NOTE | 2017-12-09 01:00 | CON ---
DATE: 12/08/2017 LOCATION: The patient is in room 575, bed 2. REASON FOR CONSULTATION: Coronary artery disease, paroxysmal atrial fibrillation, status post coronary artery bypass graft, multiple stents, cardiomyopathy, status post automatic implantable cardioverter-defibrillator insertion, severe chronic obstructive pulmonary disease, carcinoma of the prostate with metastases, admitted with bright red bleeding from chronic indwelling catheter. HISTORY OF PRESENT ILLNESS: The patient is an 87-year-old male who is known to have coronary artery disease, status post coronary artery bypass surgery, multiple PTCA, renal insufficiency, chronic indwelling Avendano catheter for carcinoma of the prostate with metastasis, severe COPD, paroxysmal atrial fibrillation, status post AICD insertion, who was admitted with bright red bleeding from chronic indwelling Avendano catheter. The patient denied any chest pain, shortness of breath or palpitation associated with that. The patient felt marked lower abdominal pelvic area discomfort associated with that. The patient at times gets some shortness of breath on exertion, known to have severe COPD. The patient also feels generalized weakness. The patient also has lost some weight during the last one year. PAST MEDICAL HISTORY: Significant for coronary artery disease, diabetes, hypertension, hypothyroidism, hyperlipidemia, renal insufficiency, carcinoma of the prostate with metastasis, severe COPD, status post AICD insertion with generator change in 11/2016, history of DVT, paroxysmal atrial fibrillation, at one time the patient was on Pradaxa, but later on was discontinued because of gross hematuria. RECENT CARDIAC WORKUP: The patient had echocardiography on 12/20/2016 that showed ejection fraction of 45%, moderate mitral regurgitation, [id number] tricuspid regurgitation, obvious systolic pressure of 43 mmHg; mild pulmonary hypertension, history of AICD, history of recent AICD battery change in 11/2016, interrogation of AICD on 09/20/2017 that revealed delivery of shock at that time on 09/19/2017. Last echocardiography on 09/22/2017 showed ejection fraction of 35%-40%, vswj-hm-wielvjis aortic stenosis, zzgu-pi-[id number] mitral regurgitation, mild tricuspid regurgitation, obvious systolic pressure 42 mmHg. LIST OF MEDICATIONS: The patient was on Protonix 40 daily, Singulair 10 mg daily, levothyroxine 100 mcg p.o. daily, insulin Human NPH/regular, Humulin 70/30 - 20 units subcu before lunch, Lasix 40 mg b.i.d., Hectorol 0.5 mcg p.o. daily, digoxin 0.125 mg p.o. daily, Os-Pedro 500 mg p.o. daily, Augmentin 875 mg p.o. q. 12 hour, amiodarone 200 mg p.o. daily. ALLERGIES: THE PATIENT HAS ALLERGY TO CHOCOLATE FLAVOR, IODINE-CONTAINING CONTRAST MATERIAL, AND LEVAQUIN. REVIEW OF SYSTEMS: All other systems are reviewed. Positive mentioned in the history, otherwise negative. PHYSICAL EXAMINATION: VITAL SIGNS: Blood pressure is 121/48, respirations 20, pulse 63, temperature 97.8. HEENT: Head is normocephalic. Eyes; pupils normal, conjunctiva slightly pale. NECK: JVP low. Carotid equal. THORAX: AP diameter normal. LUNGS: Clear. CARDIOVASCULAR: S1 and S2, systolic murmur grade 2-3/6. No rub. ABDOMEN: The patient has tenderness in the pelvic area. EXTREMITIES: No clubbing. No cyanosis. LABORATORY DATA: WBC is 7.0, hemoglobin 10.5, hematocrit 34.0, platelets 243. Sodium 141, potassium 4.0, BUN 29, creatinine 0.9. Random sugar 196. Calcium 8.9. Total bilirubin 0.5. AST 74, ALT 60, alkaline phosphatase 291, total protein 5.6. Albumin 3.0. EKG showed pacemaker rhythm. DIAGNOSES: Bright red bleeding from Avendano catheter, carcinoma of the prostate with metastases, coronary artery disease - status post coronary artery bypass graft, status post multiple stent insertions, cardiomyopathy, status post automatic implantable cardioverter-defibrillator insertion, history of paroxysmal atrial fibrillation, also history of ventricular tachycardia, chronic obstructive pulmonary disease, [id number] aortic stenosis, paroxysmal atrial fibrillation, history of deep venous thrombosis, okev-cu-zfavqnqk mitral regurgitation, mild tricuspid regurgitation, mild pulmonary hypertension with obvious systolic pressure of 42 mmHg, history of congestive heart failure, history of urinary tract infection in the past. PLAN: Clinically, the patient is not having any cardiac symptoms. The patient is on cefazolin 1 g IV q. 8 hours, amiodarone 200 mg p.o. daily, digoxin 0.125 p.o. daily, insulin as ordered, furosemide 40 mg p.o. b.i.d., calcium carbonate 500 mg p.o. daily, prednisone 5 mg p.o. daily, Protonix 40 mg daily, Singulair 10 mg p.o. daily, Synthroid 100 mcg p.o. daily, tramadol for pain. From a cardiac point of view, the patient's cardiac status is stable at this point. If he needs any procedure from urologic point of view, the patient can go with a moderate risk. We will continue present therapy and we will follow with you. Mely Walters MD
[2017-12-09] MEDS: Albuterol-Ipratrop 3 mg / 0.5 (3 ml) UD IH SCH ×4 (03:11→20:50)
[2017-12-09] MEDS: Levothyroxine 100 MCG TAB PO SCH (05:47)
[2017-12-09] MEDS: Pantoprazole 40 mg EC Tab PO SCH (05:47)
[2017-12-09] MEDS: ceFAZolin 1 gm in NS 1 GM/100 ML BAG IVPB SCH ×3 (05:47→21:59)
[2017-12-09] MEDS: Insulin Reg-MEDIUM-Coverage SC SCH ×4 (07:49→22:01)
--- NOTE | 2017-12-09 07:54 | CP.PCM.PN ---
Subjective - Date & Time of Evaluation Date of Evaluation: 12/09/17 Time of Evaluation: 07:30 - Subjective Subjective: Patient is seen this morning. He is feeling much better and his urine has cleared. Objective - Vital Signs/Intake and Output Vital Signs (last 24 hours): Temp Pulse Resp BP Pulse Ox 99.1 F 68 18 139/67 98 12/09/17 00:10 12/09/17 00:10 12/09/17 00:10 12/09/17 00:10 12/09/17 00:10 Intake and Output: 12/09/17 12/09/17 06:59 18:59 Intake Total 940 Output Total 3200 Balance -2260 - Medications Medications: Current Medications Albuterol/Ipratropium (Duoneb 3 Mg/0.5 Mg (3 Ml) Ud) 3 ml IH [id number] [facility] Last Admin: 12/09/17 03:11 Dose: Not Given Albuterol/Ipratropium (Duoneb 3 Mg/0.5 Mg (3 Ml) Ud) 3 ml IH Q2H PRN PRN Reason: Shortness of Breath Amiodarone HCl (Cordarone) 200 mg PO DAILY [facility] Last Admin: 12/08/17 09:15 Dose: Not Given Calcium Carbonate (Oscal) 500 mg PO DAILY [facility] Last Admin: 12/08/17 09:09 Dose: 500 mg Digoxin (Digoxin) 0.125 mg PO 1400 [facility] Last Admin: 12/08/17 13:55 Dose: 0.125 mg Doxercalciferol (Hectorol) 0.5 mcg PO DAILY [facility] Last Admin: 12/08/17 09:09 Dose: 0.5 mcg Furosemide (Lasix) 40 mg PO BID [facility] Last Admin: 12/08/17 17:15 Dose: 40 mg Cefazolin Sodium (Ancef 1gm In Ns) 1 gm in 100 mls @ 100 mls/hr IVPB Q8 [facility] PRN Reason: Protocol Last Admin: 12/09/17 05:47 Dose: 100 mls/hr Insulin Human Regular (Humulin R Med) 0 units SC ACHS [facility] PRN Reason: Protocol Last Admin: 12/09/17 07:49 Dose: Not Given Levothyroxine Sodium (Synthroid) 100 mcg PO 0600 [facility] Last Admin: 12/09/17 05:47 Dose: 100 mcg Montelukast Sodium (Singulair) 10 mg PO DAILY [facility] Last Admin: 12/08/17 09:09 Dose: 10 mg Morphine Sulfate (Morphine) 0.5 mg SC Q4 PRN PRN Reason: Pain, severe (8-10) Pantoprazole Sodium (Protonix Ec Tab) 40 mg PO 0600 [facility] Last Admin: 12/09/17 05:47 Dose: 40 mg Polyethylene Glycol (Miralax) 17 gm PO DAILY [facility] Last Admin: 12/08/17 09:09 Dose: 17 gm Prednisone (Prednisone Tab) 5 mg PO DAILY [facility] Last Admin: 12/08/17 09:09 Dose: 5 mg Tramadol HCl (Ultram) 50 mg PO TID PRN PRN Reason: Pain, moderate (4-7) Last Admin: 12/07/17 17:55 Dose: 50 mg - Labs Labs: 12/08/17 07:20 12/08/17 07:20 PT 13.2 SECONDS (9.4-12.5) H 12/07/17 10:30 INR 1.14 (0.93-1.08) H 12/07/17 10:30 - Constitutional Appears: No Acute Distress - Head Exam Head Exam: ATRAUMATIC, NORMOCEPHALIC - Respiratory Exam Respiratory Exam: Clear to Ausculation Bilateral, NORMAL BREATHING PATTERN - Cardiovascular Exam Cardiovascular Exam: +S1, +S2 - GI/Abdominal Exam GI & Abdominal Exam: Soft, Normal Bowel Sounds - Extremities Exam Extremities Exam: Normal Inspection. absent: Pedal Edema - Neurological Exam Neurological Exam: Alert, Awake, Oriented x3 Assessment and Plan - Assessment and Plan (Free Text) Assessment: Hematuria Klebsiella Urinary Tract Infection COPD Chronic heart failure Hypothyroidism DMII H/O cardiac arrhythmia Metastatic prostate cancer Plan: Patient's urine has cleared with continuous bladder irrigation. We will continue the irrigation. Hemoglobin is stable around 10. Urine culture growing klebsiella. Antibiotics as per infectious disease. Patient is out of bed to chair. Physical therapy has been ordered. Patient to go to transitional care unit possibly tomorrow or monday.
[2017-12-09] MEDS: POLYETHYLENE GLYCOL 3350 17 GM/Dose PACKET PO SCH (09:49)
[2017-12-09] MEDS: Insulin Human NPH/Reg 70/30 Vial(3 ml) SC SCH (11:43)
--- NOTE | 2017-12-09 13:05 | CP.PCM.PN ---
Subjective - Date & Time of Evaluation Date of Evaluation: 12/09/17 Time of Evaluation: 12:55 - Subjective Subjective: Feeling better, no fevers, no diarrhea, no nausea or vomiting, no headache. Objective - Vital Signs/Intake and Output Vital Signs (last 24 hours): Temp Pulse Resp BP Pulse Ox 99.1 F 68 18 139/67 98 12/09/17 00:10 12/09/17 00:10 12/09/17 00:10 12/09/17 00:10 12/09/17 00:10 Intake and Output: 12/09/17 12/09/17 06:59 18:59 Intake Total 940 Output Total 3200 Balance -2260 - Medications Medications: Current Medications Albuterol/Ipratropium (Duoneb 3 Mg/0.5 Mg (3 Ml) Ud) 3 ml IH [id number] [facility] Last Admin: 12/09/17 03:11 Dose: Not Given Albuterol/Ipratropium (Duoneb 3 Mg/0.5 Mg (3 Ml) Ud) 3 ml IH Q2H PRN PRN Reason: Shortness of Breath Amiodarone HCl (Cordarone) 200 mg PO DAILY [facility] Last Admin: 12/08/17 09:15 Dose: Not Given Calcium Carbonate (Oscal) 500 mg PO DAILY [facility] Last Admin: 12/08/17 09:09 Dose: 500 mg Digoxin (Digoxin) 0.125 mg PO 1400 [facility] Last Admin: 12/08/17 13:55 Dose: 0.125 mg Doxercalciferol (Hectorol) 0.5 mcg PO DAILY [facility] Last Admin: 12/08/17 09:09 Dose: 0.5 mcg Furosemide (Lasix) 40 mg PO BID [facility] Last Admin: 12/08/17 17:15 Dose: 40 mg Cefazolin Sodium (Ancef 1gm In Ns) 1 gm in 100 mls @ 100 mls/hr IVPB Q8 [facility] PRN Reason: Protocol Last Admin: 12/09/17 05:47 Dose: 100 mls/hr Insulin Human Regular (Humulin R Med) 0 units SC ACHS [facility] PRN Reason: Protocol Last Admin: 12/08/17 21:47 Dose: Not Given Levothyroxine Sodium (Synthroid) 100 mcg PO 0600 [facility] Last Admin: 12/09/17 05:47 Dose: 100 mcg Montelukast Sodium (Singulair) 10 mg PO DAILY [facility] Last Admin: 12/08/17 09:09 Dose: 10 mg Morphine Sulfate (Morphine) 0.5 mg SC Q4 PRN PRN Reason: Pain, severe (8-10) Pantoprazole Sodium (Protonix Ec Tab) 40 mg PO 0600 [facility] Last Admin: 12/09/17 05:47 Dose: 40 mg Polyethylene Glycol (Miralax) 17 gm PO DAILY [facility] Last Admin: 12/08/17 09:09 Dose: 17 gm Prednisone (Prednisone Tab) 5 mg PO DAILY [facility] Last Admin: 12/08/17 09:09 Dose: 5 mg Tramadol HCl (Ultram) 50 mg PO TID PRN PRN Reason: Pain, moderate (4-7) Last Admin: 12/07/17 17:55 Dose: 50 mg - Labs Labs: 12/08/17 07:20 12/08/17 07:20 PT 13.2 SECONDS (9.4-12.5) H 12/07/17 10:30 INR 1.14 (0.93-1.08) H 12/07/17 10:30 - Constitutional Appears: Chronically Ill - Head Exam Head Exam: NORMAL INSPECTION - ENT Exam ENT Exam: Mucous Membranes Moist - Neck Exam Neck Exam: absent: Meningismus - Respiratory Exam Respiratory Exam: Decreased Breath Sounds - Cardiovascular Exam Cardiovascular Exam: +S1, +S2 - GI/Abdominal Exam GI & Abdominal Exam: Soft. absent: Tenderness Assessment and Plan - Assessment and Plan (Free Text) Plan: Assessment consider complicated UTI with gram negative bacilli in this patient with chronic indwelling Avendano catheter history of sepsis due to systemic viral illness with Influenza as well as UTI with E. coli and E. faecalis history of severe sepsis with acute renal failure due to E. 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 diff. associated diarrhea S/P lower urinary tract infection in a patient with indwelling Avendano catheter growing Carbapenem-resistant Klebsiella history of right foot necrotic ulcer with surrounding cellulitis UTI with Enterococcus and Klebsiella chronic renal failure history of DVT DM metastatic Prostate CA history of Enterococcus UTI chronic atrial fibrillation S/P pacemaker and ICD placement Plan based on previous cultures, we will continue Cefazolin day 2 pending identification and sensitivities of the gram negative bacilli in the urine; would recommend change of Avendano catheter when feasible follow up Urology recommendations and evaluation
--- NOTE | 2017-12-09 14:15 | PN ---
DATE: 12/09/2017 PULMONARY PROGRESS NOTE SUBJECTIVE: Mr. Amador is feeling markedly better. He has a history of prostate cancer and had bleeding. The bleeding is markedly reduced and he is feeling well. There are no respiratory complaints at this time. He feels well. He is taking his medication and is anxious to go home. OBJECTIVE FINDINGS: VITAL SIGNS: Stable. Heart rate 80, respiratory rate 16, O2 saturation 96% on room air. HEENT: Normocephalic and atraumatic. CARDIOVASCULAR: Regular rhythm. S1, S2 without murmur, gallops or rubs. LUNGS: Decreased breath sounds throughout, prolonged expiratory phase. No rales, rhonchi or wheezing. ABDOMEN: Soft. Bowel sounds normoactive without mass, guarding, rebound, or organomegaly. : Within normal EXTREMITIES: Reveal no clubbing, cyanosis or edema. NEUROLOGIC EXAMINATION: Reveals no focal findings. LYMPH NODES: Lymphadenopathy is not present. SKIN: No rashes IMPRESSION 1. Chronic obstructive pulmonary disease. Hematuria. 2. Prostate cancer. 3. Hematuria. 4. Coronary artery disease. PLAN: Continue bronchodilator. We will follow as necessary during this hospitalization. Dr. Arias will continue to see the patient as an outpatient when necessary. Please feel free to contact us if there are any further problems with his respiratory status. He looks well and feels well and his physical findings are excellent also. We will follow him as required. Werner Muhammad MD [facility]
[2017-12-09] MEDS: Digoxin 125 mcg (0.125 mg) Tab PO SCH (14:22)
[2017-12-09 14:31] VITALS: PULSE 64
[2017-12-10 00:04] VITALS: O2SAT 100
[2017-12-10] MEDS: Albuterol-Ipratrop 3 mg / 0.5 (3 ml) UD IH SCH ×2 (02:06→09:26)
[2017-12-10] MEDS: Pantoprazole 40 mg EC Tab PO SCH (06:15)
[2017-12-10] MEDS: Levothyroxine 100 MCG TAB PO SCH (06:15)
[2017-12-10] MEDS: ceFAZolin 1 gm in NS 1 GM/100 ML BAG IVPB SCH (06:15)
[2017-12-10] MEDS: Insulin Reg-MEDIUM-Coverage SC SCH ×2 (07:46→12:01)
[2017-12-10 08:12] LABS: BASO # 0.02 K/mm3 (0.0-2.0); BASO % 0.2 % (0.0-3.0); EOS # 0.2 (0.0-0.7); EOS % 1.8 % (1.5-5.0); GRAN # 6.06 (1.4-6.5); GRAN % 72.8 % (50.0-68.0); HEMOGLOBIN 9.8 g/dL (14.0-18.0); LYMPH # 1.3 (1.2-3.4); LYMPH % 15.1 % (22.0-35.0); MEAN CELL VOLUME 90.1 fl (80.0-105.0); MEAN CORPUSCULAR HEMOGLOBIN 28.5 pg (25.0-35.0); MEAN CORPUSCULAR HGB CONC 31.6 g/dl (31.0-37.0); MEAN PLATELET VOLUME 9.7 fl (7.0-11.0); MONO # 0.8 (0.1-0.6); MONO % 10.1 % (1.0-6.0); RBC 3.44 10^6/uL (3.5-6.1); WHITE BLOOD COUNT 8.3 10^3/ul (4.5-11.0)
[2017-12-10 08:22] VITALS: BP 136/71; PULSE 65; RESP 16; TEMP 97.8
[2017-12-10 08:23] LABS: IRON 41 ug/dL (45-180)
[2017-12-10 08:32] LABS: % IRON SATURATION 25 % (20-55); TOTAL IRON BINDING CAPACITY 163 ug/dL (261-462)
[2017-12-10 08:35] LABS: BLOOD UREA NITROGEN 22 mg/dL (7-21); CALCIUM 8.8 mg/dL (8.4-10.5); GFR AFRICAN-AMERICAN > 60; GFR NON-AFRICAN AMERICAN > 60
--- NOTE | 2017-12-10 09:52 | CP.PCM.PN ---
Subjective - Date & Time of Evaluation Date of Evaluation: 12/10/17 Time of Evaluation: 09:30 - Subjective Subjective: Patient is seen this morning while sitting up in the chair. His urine is clear. He complains of muscle aches all over his body. Objective - Vital Signs/Intake and Output Vital Signs (last 24 hours): Temp Pulse Resp BP Pulse Ox 97.8 F 65 16 136/71 100 12/10/17 08:21 12/10/17 08:21 12/10/17 08:21 12/10/17 08:21 12/10/17 08:21 Intake and Output: 12/10/17 12/10/17 06:59 18:59 Intake Total 4100 Output Total 4200 Balance -100 - Medications Medications: Current Medications Albuterol/Ipratropium (Duoneb 3 Mg/0.5 Mg (3 Ml) Ud) 3 ml IH [id number] [facility] Last Admin: 12/10/17 09:26 Dose: 3 ml Albuterol/Ipratropium (Duoneb 3 Mg/0.5 Mg (3 Ml) Ud) 3 ml IH Q2H PRN PRN Reason: Shortness of Breath Amiodarone HCl (Cordarone) 200 mg PO DAILY [facility] Last Admin: 12/09/17 09:49 Dose: 200 mg Calcium Carbonate (Oscal) 500 mg PO DAILY [facility] Last Admin: 12/09/17 09:49 Dose: 500 mg Digoxin (Digoxin) 0.125 mg PO 1400 [facility] Last Admin: 12/09/17 14:22 Dose: 0.125 mg Doxercalciferol (Hectorol) 0.5 mcg PO DAILY [facility] Last Admin: 12/09/17 09:49 Dose: 0.5 mcg Furosemide (Lasix) 40 mg PO BID [facility] Last Admin: 12/09/17 17:05 Dose: 40 mg Cefazolin Sodium (Ancef 1gm In Ns) 1 gm in 100 mls @ 100 mls/hr IVPB Q8 [facility] PRN Reason: Protocol Last Admin: 12/10/17 06:15 Dose: 100 mls/hr Insulin Human Regular (Humulin R Med) 0 units SC ACHS [facility] PRN Reason: Protocol Last Admin: 12/10/17 07:46 Dose: Not Given Levothyroxine Sodium (Synthroid) 100 mcg PO 0600 [facility] Last Admin: 12/10/17 06:15 Dose: 100 mcg Montelukast Sodium (Singulair) 10 mg PO DAILY [facility] Last Admin: 12/09/17 09:49 Dose: 10 mg Morphine Sulfate (Morphine) 0.5 mg SC Q4 PRN PRN Reason: Pain, severe (8-10) Pantoprazole Sodium (Protonix Ec Tab) 40 mg PO 0600 [facility] Last Admin: 12/10/17 06:15 Dose: 40 mg Polyethylene Glycol (Miralax) 17 gm PO DAILY [facility] Last Admin: 12/09/17 09:49 Dose: 17 gm Prednisone (Prednisone Tab) 5 mg PO DAILY [facility] Last Admin: 12/09/17 09:49 Dose: 5 mg Tramadol HCl (Ultram) 50 mg PO TID PRN PRN Reason: Pain, moderate (4-7) Last Admin: 12/09/17 10:10 Dose: 50 mg - Labs Labs: 12/10/17 08:05 12/10/17 08:05 PT 13.2 SECONDS (9.4-12.5) H 12/07/17 10:30 INR 1.14 (0.93-1.08) H 12/07/17 10:30 - Constitutional Appears: No Acute Distress - Head Exam Head Exam: ATRAUMATIC, NORMOCEPHALIC - Respiratory Exam Respiratory Exam: Clear to Ausculation Bilateral, NORMAL BREATHING PATTERN - Cardiovascular Exam Cardiovascular Exam: +S1, +S2 - GI/Abdominal Exam GI & Abdominal Exam: Soft, Normal Bowel Sounds - Extremities Exam Extremities Exam: Normal Inspection - Neurological Exam Neurological Exam: Alert, Awake, CN II-XII Intact, Oriented x3 Assessment and Plan - Assessment and Plan (Free Text) Assessment: Hematuria Multi drug resistant klebsiella UTI COPD Chronic heart failure CAD DMII Hypothyroidism CKD Anemia of chronic disease Plan: Patient's urine is clear this morning. We will discontinue the continuous bladder irrigation. Awaiting urology to change schroeder catheter. Urine culture growing multi drug resistant Klebsiella pneumoniae. antibiotic coverage as per infectious disease. continue physical therapy. Patient will be sent to the Transitional Care unit possibly later today.
[2017-12-10] MEDS: POLYETHYLENE GLYCOL 3350 17 GM/Dose PACKET PO SCH (10:18)
[2017-12-10] MEDS: Insulin Human NPH/Reg 70/30 Vial(3 ml) SC SCH (12:03)
--- NOTE | 2017-12-10 14:10 | CP.PCM.PN ---
Subjective - Date & Time of Evaluation Date of Evaluation: 12/10/17 Time of Evaluation: 13:25 - Subjective Subjective: Feeling better but still with lack of energy, no fevers, no diarrhea, no more hematuria. Objective - Vital Signs/Intake and Output Vital Signs (last 24 hours): Temp Pulse Resp BP Pulse Ox 97.8 F 65 16 136/71 100 12/10/17 08:21 12/10/17 10:18 12/10/17 08:21 12/10/17 10:18 12/10/17 08:21 Intake and Output: 12/10/17 12/10/17 06:59 18:59 Intake Total 4100 Output Total 4200 Balance -100 - Medications Medications: Current Medications Albuterol/Ipratropium (Duoneb 3 Mg/0.5 Mg (3 Ml) Ud) 3 ml IH [id number] [facility] Last Admin: 12/10/17 09:26 Dose: 3 ml Albuterol/Ipratropium (Duoneb 3 Mg/0.5 Mg (3 Ml) Ud) 3 ml IH Q2H PRN PRN Reason: Shortness of Breath Amiodarone HCl (Cordarone) 200 mg PO DAILY [facility] Last Admin: 12/10/17 10:18 Dose: 200 mg Calcium Carbonate (Oscal) 500 mg PO DAILY [facility] Last Admin: 12/10/17 10:17 Dose: 500 mg Digoxin (Digoxin) 0.125 mg PO 1400 [facility] Last Admin: 12/09/17 14:22 Dose: 0.125 mg Doxercalciferol (Hectorol) 0.5 mcg PO DAILY [facility] Last Admin: 12/10/17 10:17 Dose: 0.5 mcg Furosemide (Lasix) 40 mg PO BID [facility] Last Admin: 12/10/17 10:17 Dose: 40 mg Insulin Human Regular (Humulin R Med) 0 units SC ACHS [facility] PRN Reason: Protocol Last Admin: 12/10/17 07:46 Dose: Not Given Levothyroxine Sodium (Synthroid) 100 mcg PO 0600 [facility] Last Admin: 12/10/17 06:15 Dose: 100 mcg Montelukast Sodium (Singulair) 10 mg PO DAILY [facility] Last Admin: 12/10/17 10:17 Dose: 10 mg Morphine Sulfate (Morphine) 0.5 mg SC Q4 PRN PRN Reason: Pain, severe (8-10) Pantoprazole Sodium (Protonix Ec Tab) 40 mg PO 0600 [facility] Last Admin: 12/10/17 06:15 Dose: 40 mg Polyethylene Glycol (Miralax) 17 gm PO DAILY [facility] Last Admin: 12/10/17 10:18 Dose: 17 gm Prednisone (Prednisone Tab) 5 mg PO DAILY [facility] Last Admin: 12/10/17 10:17 Dose: 5 mg Tramadol HCl (Ultram) 50 mg PO TID PRN PRN Reason: Pain, moderate (4-7) Last Admin: 12/09/17 10:10 Dose: 50 mg - Labs Labs: 12/10/17 08:05 12/10/17 08:05 PT 13.2 SECONDS (9.4-12.5) H 12/07/17 10:30 INR 1.14 (0.93-1.08) H 12/07/17 10:30 - Constitutional Appears: Chronically Ill - Head Exam Head Exam: NORMAL INSPECTION - ENT Exam ENT Exam: Mucous Membranes Moist - Neck Exam Neck Exam: absent: Meningismus - Respiratory Exam Respiratory Exam: Decreased Breath Sounds - Cardiovascular Exam Cardiovascular Exam: +S1, +S2 - GI/Abdominal Exam GI & Abdominal Exam: Soft. absent: Tenderness Assessment and Plan - Assessment and Plan (Free Text) Plan: Assessment consider complicated UTI with multi-drug resistant Klebsiella in this patient with chronic indwelling Avendano catheter history of sepsis due to systemic viral illness with Influenza as well as UTI with E. coli and E. faecalis history of severe sepsis with acute renal failure due to E. 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 diff. associated diarrhea S/P lower urinary tract infection in a patient with indwelling Avendano catheter growing Carbapenem-resistant Klebsiella history of right foot necrotic ulcer with surrounding cellulitis UTI with Enterococcus and Klebsiella chronic renal failure history of DVT DM metastatic Prostate CA history of Enterococcus UTI chronic atrial fibrillation S/P pacemaker and ICD placement Plan will change antibiotics to Gentamicin and will repeat urine cx; would recommend change of Avendano catheter when feasible follow up Urology recommendations and evaluation
[2017-12-10] MEDS ORDERED: Gentamicin 160 MG in Sodium Chloride 0.9% 100 ML IVPB SCH (16:00)
[2017-12-10] MEDS ORDERED: Gentamicin 80 mg/2mL Inj. IVPB SCH (16:00)
--- NOTE | 2017-12-12 10:50 | PQF GENQUE ---
This form is a permanent part of the medical record Doctor, Pt presented in ERD for acute recurrent hematuria. Please clarify if this is due to chronic indwelling Schroeder catheter. Also, as per MARY BARRERA, Dr. Ortiz, indicated in his PNs "consider complicated UTI with gram negative bacilli in this pt with chronic indwelling Schroeder catheter." Please specify below. Thank you. Clarification of your documentation is requested to better reflect the severity of illness and intensity of treatment of your patient. Indicators present [] Specify: [] [] Specify: [] [] Specify: [] [] Specify: [] Location in the medical record that reflects the above clinical findings: [] progress notes Treatment Provided: [] PHYSICIAN'S RESPONSE Based on your medical judgment of the clinical indicators outlined above please clarify the following: [x] Practitioner response - Patient with complicated urinary tract infection. Hematuria secondary to UTI and prostate cancer. UTI most likely secondary to chronic indwelling schroeder catheter [] If unable to determine, please check the box, sign and date. Present On Admission (POA) Indicator: [x] Present at the time of admission [] Not present at the time of admission [] Clinically Undetermined In responding to this query, please exercise your independent professional judgment. The fact that a question is asked does not imply that any particular answer is desired or expected. Thank you for your clarification on this documentation. If you have any questions please call:[ ] * Thank you, [ ]lalo MARTINESbenefits coordinator [facility]
--- NOTE | 2017-12-12 12:54 | DS ---
BRIEF HISTORY AND HOSPITAL COURSE: This is an 87-year-old male with history of chronic congestive heart failure, chronic obstructive pulmonary disease, cardiac arrhythmia, coronary artery disease, hypertension, type 2 diabetes mellitus, hypothyroidism, and metastatic prostate cancer who began noticing bright red blood in his Avendano catheter. The patient also complained of weakness and pain in the groin and buttocks area. In the Emergency Room, his hemoglobin was 9.8, hematocrit 31. BUN 22, creatinine 0.8. He was admitted to the general medical floor and started on continuous bladder irrigation for the hematuria. Urine was also sent for culture and consult was put in with Dr. Louise who is his urologist. The patient was given tramadol and low-dose morphine as needed for pain. With the continuous bladder irrigation, the hematuria resolved. Urine culture grew out multidrug-resistant Klebsiella pneumoniae. The patient was seen by Dr. Ortiz, who is an Infectious Disease specialist, and started on IV antibiotics, which was then switched to gentamicin once the sensitivity came back. As the patient required further physical therapy for deconditioning and generalized weakness, he was transferred to the Transitional Care Unit for therapy as well as to continue and complete his course of antibiotics for the urinary tract infection. DISCHARGE DIAGNOSES: Hematuria, multidrug-resistant Klebsiella pneumoniae, urinary tract infection, chronic heart failure, chronic obstructive pulmonary disease, hypertension, coronary artery disease, hypothyroidism, type 2 diabetes mellitus, metastatic prostate cancer. DISCHARGE MEDICATIONS: DuoNeb every 6 hours, amiodarone 200 mg once a day, digoxin 125 mcg daily, Hectorol 0.5 mcg daily, Lasix 40 mg twice a day, Synthroid 100 mcg daily, Singulair 10 mg daily, morphine 0.5 mg subcutaneously every 4 hours p.r.n. for pain, Protonix 40 mg daily, MiraLax 17 g daily, prednisone 5 mg daily, tramadol 50 mg 3 times a day as needed for pain and gentamicin IV. FOLLOWUP: The patient will be followed up in the Transitional Care Unit. Sreedhar Polk MD AN[facility]LL[facility]
== END 2017-12-10 13:55 | DRG 699 ==
LOC: ED 08:38 → ERH 13:10 → 5RSO 22:30
PROVIDERS: ADMIT Internal Medicine; ATTEND Internal Medicine
DX: T83.511A Infection and inflammatory reaction due to indwelling urethral catheter, initial encounter (principal); C77.9 Secondary and unspecified malignant neoplasm of lymph node, unspecified; C79.51 Secondary malignant neoplasm of bone; I13.0 Hypertensive heart and chronic kidney disease with heart failure and stage 1 through stage 4 chronic kidney disease, or unspecified chronic kidney disease; I50.22 Chronic systolic (congestive) heart failure; I42.9 Cardiomyopathy, unspecified; E11.22 Type 2 diabetes mellitus with diabetic chronic kidney disease; N39.0 Urinary tract infection, site not specified; R31.9 Hematuria, unspecified; B96.1 Klebsiella pneumoniae [K. pneumoniae] as the cause of diseases classified elsewhere; I27.20 Pulmonary hypertension, unspecified; I48.0 Paroxysmal atrial fibrillation; E86.0 Dehydration; C61 Malignant neoplasm of prostate; J43.9 Emphysema, unspecified; I48.2 Chronic atrial fibrillation; E03.9 Hypothyroidism, unspecified; N18.9 Chronic kidney disease, unspecified; I25.10 Atherosclerotic heart disease of native coronary artery without angina pectoris; D63.8 Anemia in other chronic diseases classified elsewhere; H40.9 Unspecified glaucoma; Z16.24 Resistance to multiple antibiotics; E78.5 Hyperlipidemia, unspecified; Z95.1 Presence of aortocoronary bypass graft; Z95.0 Presence of cardiac pacemaker; Z95.810 Presence of automatic (implantable) cardiac defibrillator; Z86.718 Personal history of other venous thrombosis and embolism; Z95.5 Presence of coronary angioplasty implant and graft; Z99.81 Dependence on supplemental oxygen; Z79.4 Long term (current) use of insulin; Y84.6 Urinary catheterization as the cause of abnormal reaction of the patient, or of later complication, without mention of misadventure at the time of the procedure

== ENCOUNTER 2017-12-10 11:56 | Inpatient (IN) | payer OTHER, MEDICARE ==
[2017-12-10] MEDS ORDERED: Albuterol-Ipratrop 3 mg / 0.5 (3 ml) UD IH PRN (14:20)
[2017-12-10] MEDS ORDERED: Morphine 2 mg/ml ISec SC PRN (14:20)
[2017-12-10 16:09] VITALS: BMI 23.5
[2017-12-10] MEDS: Gentamicin 160 MG in Sodium Chloride 0.9% 100 ML IVPB SCH (18:24)
[2017-12-10] MEDS: Digoxin 125 mcg (0.125 mg) Tab PO SCH (18:24)
[2017-12-10] MEDS: Albuterol-Ipratrop 3 mg / 0.5 (3 ml) UD IH SCH (18:59)
[2017-12-10] MEDS ORDERED: ceFAZolin 1 gm in NS 1 GM/100 ML BAG IVPB SCH (22:00)
[2017-12-10] MEDS: Insulin Reg-MEDIUM-Coverage SC SCH (22:47)
[2017-12-11] MEDS: Albuterol-Ipratrop 3 mg / 0.5 (3 ml) UD IH SCH ×4 (01:32→20:33)
[2017-12-11] MEDS: Pantoprazole 40 mg EC Tab PO SCH (06:09)
[2017-12-11] MEDS: Levothyroxine 100 MCG TAB PO SCH (06:09)
--- NOTE | 2017-12-11 08:29 | CP.PCM.HP ---
History of Present Illness - History of Present Illness History of Present Illness: 87 year old male with history of metastatic prostate cancer, chronic heart failure chronic obstructive pulmonary disease, hypothyroidism, coronary artery disease, chronic indwelling schroeder catheter and cardiac arrhythmia who was admitted to the acute floor for hematuria and klebsiella pneumoniae urinary tract infection. Patient's hematuria resolved with bladder irrigation. He is now admitted to the transitional care unit for generalized weakness and deconditioning. He is on antibiotics for urinary tract infection. He complains of pain in his back and abdomen. He denies chest pain or shortness of breath. Present on Admission - Present on Admission Any Indicators Present on Admission: Yes History of DVT/PE: Yes History of Uncontrolled Diabetes: No Urinary Catheter: Yes Decubitus Ulcer Present: No Review of Systems - Constitutional Constitutional: Weight Loss. absent: Chills, Fever - Cardiovascular Cardiovascular: absent: Chest Pain, Diaphoresis, Dyspnea - Respiratory Respiratory: absent: Cough, Hemoptysis, Wheezing - Gastrointestinal Gastrointestinal: Abdominal Pain, Constipation, Heartburn Past Patient History - Infectious Disease Hx of Infectious Diseases: None - Tetanus Immunizations Tetanus Immunization: Unknown - Past Medical History & Family History Past Medical History?: Yes - Past Social History Smoking Status: Never Smoked - CARDIAC Hx Cardiac Disorders: Yes (stents, afib w/ defibrillator) - PULMONARY Hx Respiratory Disorders: Yes (hs home o2 and nebulizer machine) Hx Chronic Obstructive Pulmonary Disease (COPD): Yes Hx Emphysema: Yes - NEUROLOGICAL Hx Neurological Disorder: No - HEENT Hx HEENT Problems: Yes ([place]) Hx Cataracts: Yes (WITH b/t SURGERY) Hx Glaucoma: Yes - RENAL Hx Chronic Kidney Disease: No - ENDOCRINE/METABOLIC Hx Endocrine Disorders: Yes Hx Diabetes Mellitus Type 2: Yes Hx Hypothyroidism: Yes - HEMATOLOGICAL/ONCOLOGICAL Hx Blood Disorders: Yes Hx Anemia: Yes (Hx of blood transfusion.) Hx Cancer: Yes (Prostate CA with mets to lymph nodes) Hx Chemotherapy: Yes (Last chemo was 11/17/16.) Other/Comment: Pt dx in 2001 had radiation treatments. Reoccured in 2016. Was taking po chemo, stopped due to recommendation by Dr Carballo as per pt due to pt taking amidorone for 25 yrs. Meds not compatible. - INTEGUMENTARY Hx Dermatological Problems: Yes Other/Comment: multiple skin discolorations and tatoos both arms, multiple brown skin discolorations ble - MUSCULOSKELETAL/RHEUMATOLOGICAL Hx Falls: No - GASTROINTESTINAL Hx Gastrointestinal Disorders: No - GENITOURINARY/GYNECOLOGICAL Hx Genitourinary Disorders: Yes - PSYCHIATRIC Hx Psychophysiologic Disorder: No Hx Emotional Abuse: No Hx Physical Abuse: No Hx Substance Use: No - SURGICAL HISTORY Hx Surgeries: Yes Other/Comment: cardiac stents, 4 quadruple bypass in the past 3 years, indwelling schroeder catheter placement. cystoscopy x3 weeks ago, left shoulder cyst removed 1988 - ANESTHESIA Hx Anesthesia: Yes Hx Anesthesia Reactions: No Hx Malignant Hyperthermia: No Meds Allergies/Adverse Reactions: Allergies Allergy/AdvReac Type Severity Reaction Status Date / Time chocolate flavor Allergy ITCHING Verified 12/10/17 20:58 Iodinated Contrast- Oral and Allergy ANAPHYLAXIS Verified 12/10/17 20:58 IV Dye levofloxacin [From Levaquin] Allergy ANAPHYLAXIS Verified 12/10/17 20:58 Physical Exam - Constitutional Appears: No Acute Distress - Head Exam Head Exam: ATRAUMATIC, NORMOCEPHALIC - Respiratory Exam Respiratory Exam: Clear to Auscultation Bilateral, NORMAL BREATHING PATTERN - Cardiovascular Exam Cardiovascular Exam: REGULAR RHYTHM, +S1, +S2 - GI/Abdominal Exam GI & Abdominal Exam: Normal Bowel Sounds, Soft, Tenderness - Extremities Exam Extremities exam: Positive for: normal inspection - Neurological Exam Neurological exam: Alert, CN II-XII Intact, Oriented x3 Results - Vital Signs Recent Vital Signs: Last Vital Signs Temp Pulse Resp 18 12/10/17 20:13 BP 123/80 12/10/17 18:24 Pulse Ox - Labs Labs: Laboratory Results - last 24 hr 12/10/17 12/10/17 12/11/17 17:00 21:35 04:50 POC Glucose (mg/dL) 174 H 258 H 122 H Assessment & Plan - Assessment and Plan (Free Text) Assessment: Deconditioning Multi drug resistant klebsiella pneumoniae urinary tract infection Chronic heart failure COPD HTN DMII Hypothyroidism CAD metastatic prostate cancer Plan: Patient's hematuria has resolved with continuous bladder irrigation. continue to monitor urine off irrigation. Urine culture growing resistant klebsiella pneumoniae. continue antibiotics as per infectious disease. continue physical therapy. will add carafate for heartburn. continue miralax for constipation. If patient does not have a bowel movement, then he will have an enema later today.
--- NOTE | 2017-12-11 08:40 | PN ---
DATE: 12/11/2017 PULMONARY NOTE SUBJECTIVE: The patient appears comfortable this morning. He is not short of breath at rest. PHYSICAL EXAMINATION VITAL SIGNS: (Last noted in the computer): Temperature is 97.8, pulse is 65, respirations 16, blood pressure 136/71. Oxygen saturation on nasal cannula is 100%. HEENT: Normocephalic, atraumatic. No JVD. CARDIOVASCULAR: Systolic ejection murmur at the lower left sternal border. No S3 gallop. LUNGS: Decreased breath sounds at the bases. Minimal rhonchi. No wheezing. EXTREMITIES: Positive for edema. No cyanosis, no clubbing. Calves are nontender to palpation. GI: Abdomen is soft, nontender and nondistended. Bowel sounds are positive. SKIN: No acute rash. NEUROLOGIC: Limited at the present time. IMPRESSION: 1. Hematuria. 2. Advanced prostate cancer. 3. Advanced chronic obstructive pulmonary disease. 4. Advanced coronary artery disease. 5. Chronic kidney disease. 6. Chronic anemia. PLAN: The patient appears comfortable this morning. He is not short of breath at rest. He does state to feeling much better overall. On physical exam, there is only minimal bronchospasm noted. In addition, the oxygen saturation on nasal cannula is now 100%. I will continue the current nebulizer treatments and low-dose oral steroids for now. The patient remains on antibiotic therapy - as per Infectious Disease. Input by Dr. Ortzi is noted. Clinical status of the patient is certainly improved - compared to the initial presentation. However, unfortunately, the future status/prognosis for this patient remains poor. All are aware. The patient is now on the Transitional Unit - where he will participate with physical therapy. I will discuss the above with Dr. Polk. Kwadwo Arias MD [facility]
[2017-12-11] MEDS: POLYETHYLENE GLYCOL 3350 17 GM/Dose PACKET PO SCH (10:15)
--- NOTE | 2017-12-11 11:42 | CP.PCM.CON ---
History of Present Illness - History of Present Illness History of Present Illness: 87 year old male with PMH of ight foot necrotic ulcer with cellulitis, UTI with Enterococcus and Klebsiella, chronic renal failure, history of DVT, DM, metastatic Prostate CA, history of Enterococcus UTI, atrial fibrillation, S/P pacemaker and defibrillator placement, chronic CHF, COPD, hypothyroidism was initially admitted in [facility] for hematuria and was found to have Klebsiella UTI. He is now doing better and is transferred to [facility] for continued medical therapy and physical rehab. Infectious diseases consult is requested to continue his antibiotic therapy. He is currently afebrile, did well with physical therapy this morning, no more hematuria, no headache or dizziness, no chest pain, no SOB , no cough or colds, no abdominal pain, no diarrhea. Review of Systems - Review of Systems All systems: reviewed and no additional remarkable complaints except (as per HPI ) Past Patient History - Infectious Disease Hx of Infectious Diseases: None - Tetanus Immunizations Tetanus Immunization: Unknown - Past Medical History & Family History Past Medical History?: Yes - Past Social History Smoking Status: Never Smoked - CARDIAC Hx Cardiac Disorders: Yes (stents, afib w/ defibrillator) - PULMONARY Hx Respiratory Disorders: Yes (hs home o2 and nebulizer machine) Hx Chronic Obstructive Pulmonary Disease (COPD): Yes Hx Emphysema: Yes - NEUROLOGICAL Hx Neurological Disorder: No - HEENT Hx HEENT Problems: Yes ([place]) Hx Cataracts: Yes (WITH b/t SURGERY) Hx Glaucoma: Yes - RENAL Hx Chronic Kidney Disease: No - ENDOCRINE/METABOLIC Hx Endocrine Disorders: Yes Hx Diabetes Mellitus Type 2: Yes Hx Hypothyroidism: Yes - HEMATOLOGICAL/ONCOLOGICAL Hx Blood Disorders: Yes Hx Anemia: Yes (Hx of blood transfusion.) Hx Cancer: Yes (Prostate CA with mets to lymph nodes) Hx Chemotherapy: Yes (Last chemo was 11/17/16.) Other/Comment: Pt dx in 2001 had radiation treatments. Reoccured in 2016. Was taking po chemo, stopped due to recommendation by Dr Carballo as per pt due to pt taking amidorone for 25 yrs. Meds not compatible. - INTEGUMENTARY Hx Dermatological Problems: Yes Other/Comment: multiple skin discolorations and tatoos both arms, multiple brown skin discolorations ble - MUSCULOSKELETAL/RHEUMATOLOGICAL Hx Falls: No - GASTROINTESTINAL Hx Gastrointestinal Disorders: No - GENITOURINARY/GYNECOLOGICAL Hx Genitourinary Disorders: Yes - PSYCHIATRIC Hx Psychophysiologic Disorder: No Hx Emotional Abuse: No Hx Physical Abuse: No Hx Substance Use: No - SURGICAL HISTORY Hx Surgeries: Yes Other/Comment: cardiac stents, 4 quadruple bypass in the past 3 years, indwelling cshroeder catheter placement. cystoscopy x3 weeks ago, left shoulder cyst removed 1988 - ANESTHESIA Hx Anesthesia: Yes Hx Anesthesia Reactions: No Hx Malignant Hyperthermia: No Meds Allergies/Adverse Reactions: Allergies Allergy/AdvReac Type Severity Reaction Status Date / Time chocolate flavor Allergy ITCHING Verified 12/10/17 20:58 Iodinated Contrast- Oral and Allergy ANAPHYLAXIS Verified 12/10/17 20:58 IV Dye levofloxacin [From Levaquin] Allergy ANAPHYLAXIS Verified 12/10/17 20:58 - Medications Medications: Current Medications Albuterol/Ipratropium (Duoneb 3 Mg/0.5 Mg (3 Ml) Ud) 3 ml IH Q2H PRN; Protocol PRN Reason: Shortness of Breath Albuterol/Ipratropium (Duoneb 3 Mg/0.5 Mg (3 Ml) Ud) 3 ml IH [id number] [facility] PRN Reason: Protocol Last Admin: 12/10/17 18:59 Dose: 3 ml Amiodarone HCl (Cordarone) 200 mg PO DAILY [facility] PRN Reason: Protocol Calcium Carbonate (Oscal) 500 mg PO DAILY [facility] PRN Reason: Protocol Digoxin (Digoxin) 0.125 mg PO 1400 [facility] PRN Reason: Protocol Last Admin: 12/10/17 18:24 Dose: 0.125 mg Doxercalciferol (Hectorol) 0.5 mcg PO DAILY [facility] PRN Reason: Protocol Furosemide (Lasix) 40 mg PO BID [facility] PRN Reason: Protocol Last Admin: 12/10/17 18:24 Dose: 40 mg Cefazolin Sodium (Ancef 1gm In Ns) 1 gm in 100 mls @ 100 mls/hr IVPB Q8 [facility] PRN Reason: Protocol Last Admin: 12/10/17 21:50 Dose: 100 mls/hr Gentamicin Sulfate 160 mg/ (Sodium Chloride) 104 mls @ 104 mls/hr IVPB Q24H [facility] PRN Reason: Protocol Last Admin: 12/10/17 18:24 Dose: 104 mls/hr Insulin Human Regular (Humulin R Med) 0 units SC ACHS [facility] PRN Reason: Protocol Last Admin: 12/10/17 22:47 Dose: Not Given Levothyroxine Sodium (Synthroid) 100 mcg PO 0600 [facility] PRN Reason: Protocol Montelukast Sodium (Singulair) 10 mg PO DAILY [facility] PRN Reason: Protocol Morphine Sulfate (Morphine) 0.5 mg SC Q4 PRN; Protocol PRN Reason: Pain, severe (8-10) Pantoprazole Sodium (Protonix Ec Tab) 40 mg PO 0600 [facility] PRN Reason: Protocol Polyethylene Glycol (Miralax) 17 gm PO DAILY [facility] PRN Reason: Protocol Prednisone (Prednisone Tab) 5 mg PO DAILY [facility] PRN Reason: Protocol Tramadol HCl (Ultram) 50 mg PO TID PRN; Protocol PRN Reason: Pain, moderate (4-7) Physical Exam - Constitutional Appears: Chronically Ill - Head Exam Head Exam: NORMAL INSPECTION - ENT Exam ENT Exam: Mucous Membranes Moist - Neck Exam Neck exam: Negative for: Meningismus - Respiratory Exam Respiratory Exam: Decreased Breath Sounds - Cardiovascular Exam Cardiovascular Exam: +S1, +S2 - GI/Abdominal Exam GI & Abdominal Exam: Soft. absent: Tenderness Results - Vital Signs Recent Vital Signs: Last Vital Signs Temp Pulse Resp 18 12/10/17 20:13 BP 123/80 12/10/17 18:24 Pulse Ox - Labs Labs: Laboratory Results - last 24 hr 12/10/17 12/10/17 17:00 21:35 POC Glucose (mg/dL) 174 H 258 H Assessment & Plan - Assessment and Plan (Free Text) Plan: Assessment consider complicated UTI with multi-drug resistant Klebsiella in this patient with chronic indwelling Schroeder catheter history of sepsis due to systemic viral illness with Influenza as well as UTI with E. coli and E. faecalis history of severe sepsis with acute renal failure due to E. 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 diff. associated diarrhea S/P lower urinary tract infection in a patient with indwelling Schroeder catheter growing Carbapenem-resistant Klebsiella history of right foot necrotic ulcer with surrounding cellulitis UTI with Enterococcus and Klebsiella chronic renal failure history of DVT DM metastatic Prostate CA history of Enterococcus UTI chronic atrial fibrillation S/P pacemaker and ICD placement Plan continue Gentamicin day 2 and follow up repeat urine cx; would recommend change of Shcroeder catheter when feasible follow up Urology recommendations and evaluation
[2017-12-11] MEDS: Insulin Reg-MEDIUM-Coverage SC SCH ×3 (12:24→22:21)
[2017-12-11] MEDS: Insulin Human NPH/Reg 70/30 Vial(3 ml) SC SCH (12:48)
[2017-12-11] MEDS: Digoxin 125 mcg (0.125 mg) Tab PO SCH (14:13)
[2017-12-11] MEDS: Gentamicin 160 MG in Sodium Chloride 0.9% 100 ML IVPB SCH (15:52)
[2017-12-11] MEDS: Sucralfate 1 gm/10 ml Oral Susp UD PO SCH (15:53)
--- NOTE | 2017-12-11 23:04 | CON ---
DATE: CONSULT SERVICE: Cardiology. REASON FOR CONSULTATION: Coronary artery disease, history of CABG, history of percutaneous transluminal coronary angioplasty, continuity of care in transitional care unit. BRIEF CLINICAL HISTORY: This is an 87-year-old male with past medical history significant for coronary artery disease; paroxysmal atrial fibrillation; status post coronary artery bypass with history of multiple stents, pre and post PTCA stent; history of defibrillator, AICD; history of COPD; history of carcinoma of the prostate with metastasis; admitted with bright red blood into the indwelling Avendano catheter. Patient was initially admitted to the floor on 12/08/2017 and after being stabilized and transferred to TCU. He denies any chest pain, shortness of breath, or any palpitations. PAST MEDICAL HISTORY: Significant for coronary artery disease; hypertension; hyperlipidemia; renal insufficiency; carcinoma of the prostate with metastasis; severe CODP; history of AICD, recently generator changed in 11/2016; history of DVT; paroxysmal atrial fibrillation, at one point patient was on Pradaxa, but later on discontinued because of gross hematuria. RECENT CARDIAC WORKUP: As follows: Patient had echocardiogram on 12/20/2016 that showed ejection fraction of 45%, moderate mitral regurgitation, [id number] tricuspid regurgitation, RV systolic pressure 43, mild pulmonary hypertension, history of AICD, history of generator changed in 11/2016, interrogation of the AICD on 09/20/2017 that revealed a shock was delivered because patient has been having VFib. Repeat echo on 09/22/2017 showed an ejection fraction of 35 to 40%, [id number] aortic stenosis, [id number] mitral regurgitation, mild tricuspid regurgitation, right ventricle systolic pressure of 42. MEDICATIONS: Patient, at home, was taking prednisone 5 mg daily, tramadol 50 mg daily, MiraLax, morphine, Lasix, amiodarone 200 mg daily. REVIEW OF SYSTEMS: As per HPI. PHYSICAL EXAMINATION: VITAL SIGNS: Temperature is afebrile, heart rate 70, blood pressure 125/56. HEENT: PERRLA. Extraocular muscles intact. NECK: Supple. No carotid bruits or thyromegaly. CHEST: Clear to auscultation. HEART: S1, S2 regular. ABDOMEN: Soft. EXTREMITIES: Clubbing and cyanosis negative. LABORATORY DATA: Blood workup as follows: WBC 8.3, hemoglobin 9.8, hematocrit 31, platelet count 227. Chemistry shows sodium 130, potassium 4.2, chloride , carbon dioxide 30, anion gap of 13, BUN 22, and creatinine 0.8. IMPRESSION: An 87-year-old male with a past medical history significant for coronary artery disease, status post percutaneous transluminal coronary angioplasty, pre and post coronary artery bypass graft percutaneous transluminal coronary angioplasty, renal insufficiency, chronic indwelling Avendano catheter, carcinoma of the prostate, history of chronic obstructive pulmonary disease, history of paroxysmal atrial fibrillation, history of automatic implantable cardioverter-defibrillator, history of pacemaker generator change of the automatic implantable cardioverter-defibrillator 11/2016, history of automatic implantable cardioverter-defibrillator intubation in 09/2017 that showed shock delivery. At that time patient was admitted with ventricular fibrillation, history of multiple recurrent urinary tract infection. Patient complained of generalized weakness and loss of weight and significantly decreasing weight and loss of appetite. Denies any chest pain, denies any shortness of breath, denies any palpitation, admitted with gross hematuria. RECOMMENDATION: Continue digoxin, continue amiodarone, continue antibiotics, continue Lasix 40 mg b.i.d. We will follow. We will repeat the blood workup in the morning. Monitor the renal function as well as hemoglobin. Overall, patient's condition is gradually deteriorating. We will follow with you. Last echo in 09/2017 showed ejection fraction of 30 to 35%. We will follow with you. Continue treatment for UTI because the patient has an indwelling Avendano catheter. Thank you, for providing me the opportunity in taking care of Ziggy Amador. Mely Chavarria MD
[2017-12-12] MEDS: Albuterol-Ipratrop 3 mg / 0.5 (3 ml) UD IH SCH ×4 (01:20→20:51)
[2017-12-12] MEDS: Sucralfate 1 gm/10 ml Oral Susp UD PO SCH ×2 (05:49→16:28)
[2017-12-12] MEDS: Pantoprazole 40 mg EC Tab PO SCH (05:49)
[2017-12-12] MEDS: Levothyroxine 100 MCG TAB PO SCH (05:49)
[2017-12-12 06:24] LABS: BASO # 0.03 K/mm3 (0.0-2.0); BASO % 0.3 % (0.0-3.0); EOS # 0.2 (0.0-0.7); EOS % 1.8 % (1.5-5.0); GRAN # 6.76 (1.4-6.5); GRAN % 72.8 % (50.0-68.0); HEMOGLOBIN 9.6 g/dL (14.0-18.0); LYMPH # 1.5 (1.2-3.4); LYMPH % 16.4 % (22.0-35.0); MEAN CELL VOLUME 89.2 fl (80.0-105.0); MEAN CORPUSCULAR HEMOGLOBIN 28.1 pg (25.0-35.0); MEAN CORPUSCULAR HGB CONC 31.5 g/dl (31.0-37.0); MEAN PLATELET VOLUME 9.2 fl (7.0-11.0); MONO # 0.8 (0.1-0.6); MONO % 8.7 % (1.0-6.0); RBC 3.42 10^6/uL (3.5-6.1); RED CELL DISTRIBUTION WIDTH 16.9 % (11.5-14.5); WHITE BLOOD COUNT 9.3 10^3/ul (4.5-11.0)
[2017-12-12] MEDS: Insulin Reg-MEDIUM-Coverage SC SCH ×5 (07:03→22:36)
[2017-12-12 07:48] LABS: ALB/GLOB RATIO 1.1 (1.1-1.8); ALBUMIN 2.8 g/dL (3.0-4.8); ALT/SGPT 35 U/L (7-56); AST/SGOT 52 U/L (17-59); BLOOD UREA NITROGEN 30 mg/dL (7-21); CALCIUM 8.7 mg/dL (8.4-10.5); GFR AFRICAN-AMERICAN > 60; GFR NON-AFRICAN AMERICAN > 60
--- NOTE | 2017-12-12 09:12 | PN ---
DATE: 12/12/2017 PULMONARY NOTE SUBJECTIVE: The patient appears comfortable this morning. He is not short of breath at rest. PHYSICAL EXAMINATION VITAL SIGNS: (Last noted in the computer): Temperature is 97.8, pulse 61, respiratory rate this morning 18, blood pressure 142/61. Oxygen saturation on nasal cannula is 100%. HEENT: Normocephalic, atraumatic. No JVD. CARDIOVASCULAR: Systolic ejection murmur at the lower left sternal border. No S3 gallop. LUNGS: Decreased breath sounds at the bases. Minimal/less rhonchi. No wheezing. EXTREMITIES: Positive for edema. No cyanosis or clubbing. Calves are nontender to palpation. GI: Abdomen is soft, nontender and nondistended. Bowel sounds are positive. SKIN: No acute rash. NEUROLOGIC: Limited at the present time. IMPRESSION: 1. Hematuria. 2. Advanced prostate cancer. 3. Advanced chronic obstructive pulmonary disease. 4. Advanced coronary artery disease. 5. Chronic kidney disease. 6. Chronic anemia. PLAN: The patient appears comfortable this morning. He is not short of breath at rest. He does state to feeling much better overall. On physical exam, only minimal bronchospasm is noted. In addition, the oxygen saturation on nasal cannula is now 100%. I will continue the current nebulizer treatments and low-dose oral steroids for now. Inputs by Infectious Disease and Cardiology are noted. Clinical status of the patient is certainly improved - compared to the initial presentation. However, again, unfortunately, the overall status/prognosis for this patient remains poor. I will discuss the above with the attending physician. Kwadwo Arias MD [facility]
[2017-12-12] MEDS: POLYETHYLENE GLYCOL 3350 17 GM/Dose PACKET PO SCH (10:52)
--- NOTE | 2017-12-12 11:23 | CP.PCM.PN ---
Subjective - Date & Time of Evaluation Date of Evaluation: 12/12/17 Time of Evaluation: 10:20 - Subjective Subjective: [place] cold and tired after doing physical therapy, no fevers, no diarrhea. Objective - Vital Signs/Intake and Output Vital Signs (last 24 hours): Temp Pulse Resp BP Pulse Ox 97.8 F 61 20 142/61 100 12/11/17 17:47 12/11/17 17:47 12/11/17 17:47 12/11/17 17:47 12/11/17 17:47 Intake and Output: 12/12/17 12/12/17 06:59 18:59 Intake Total 420 Output Total 1400 Balance -980 - Medications Medications: Current Medications Albuterol/Ipratropium (Duoneb 3 Mg/0.5 Mg (3 Ml) Ud) 3 ml IH Q2H PRN; Protocol PRN Reason: Shortness of Breath Albuterol/Ipratropium (Duoneb 3 Mg/0.5 Mg (3 Ml) Ud) 3 ml IH [id number] JEANA PRN Reason: Protocol Last Admin: 12/12/17 08:13 Dose: 3 ml Amiodarone HCl (Cordarone) 200 mg PO DAILY JEANA PRN Reason: Protocol Last Admin: 12/11/17 10:15 Dose: 200 mg Digoxin (Digoxin) 0.125 mg PO 1400 JEANA PRN Reason: Protocol Last Admin: 12/11/17 14:13 Dose: 0.125 mg Doxercalciferol (Hectorol) 0.5 mcg PO DAILY JEANA PRN Reason: Protocol Last Admin: 12/11/17 10:15 Dose: 0.5 mcg Furosemide (Lasix) 40 mg PO BID JEANA PRN Reason: Protocol Last Admin: 12/11/17 17:12 Dose: 40 mg Gentamicin Sulfate 160 mg/ (Sodium Chloride) 104 mls @ 104 mls/hr IVPB Q24H JEANA PRN Reason: Protocol Last Admin: 12/11/17 15:52 Dose: 104 mls/hr Insulin Human Regular (Humulin R Med) 0 units SC ACHS JEANA PRN Reason: Protocol Last Admin: 12/12/17 07:03 Dose: Not Given Levothyroxine Sodium (Synthroid) 100 mcg PO 0600 JEANA PRN Reason: Protocol Last Admin: 12/12/17 05:49 Dose: 100 mcg Montelukast Sodium (Singulair) 10 mg PO DAILY [facility] PRN Reason: Protocol Last Admin: 12/11/17 22:22 Dose: 10 mg Morphine Sulfate (Morphine) 0.5 mg SC Q4 PRN; Protocol PRN Reason: Pain, severe (8-10) Pantoprazole Sodium (Protonix Ec Tab) 40 mg PO 0600 JEANA PRN Reason: Protocol Last Admin: 12/12/17 05:49 Dose: 40 mg Polyethylene Glycol (Miralax) 17 gm PO DAILY JEANA PRN Reason: Protocol Last Admin: 12/11/17 10:15 Dose: 17 gm Prednisone (Prednisone Tab) 5 mg PO DAILY JEANA PRN Reason: Protocol Last Admin: 12/11/17 10:14 Dose: Not Given Sucralfate (Carafate Oral Susp) 1 gm PO 0600,1600 JEANA Last Admin: 12/12/17 05:49 Dose: 1 gm Tramadol HCl (Ultram) 50 mg PO TID PRN; Protocol PRN Reason: Pain, moderate (4-7) Last Admin: 12/11/17 08:10 Dose: 50 mg - Labs Labs: 12/12/17 06:15 12/12/17 06:15 - Constitutional Appears: Chronically Ill - Head Exam Head Exam: NORMAL INSPECTION - ENT Exam ENT Exam: Mucous Membranes Moist - Neck Exam Neck Exam: absent: Meningismus - Respiratory Exam Respiratory Exam: Decreased Breath Sounds - Cardiovascular Exam Cardiovascular Exam: +S1, +S2 - GI/Abdominal Exam GI & Abdominal Exam: Soft. absent: Tenderness Assessment and Plan - Assessment and Plan (Free Text) Plan: Assessment consider complicated UTI with multi-drug resistant Klebsiella in this patient with chronic indwelling Avendano catheter history of sepsis due to systemic viral illness with Influenza as well as UTI with E. coli and E. faecalis history of severe sepsis with acute renal failure due to E. 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 diff. associated diarrhea S/P lower urinary tract infection in a patient with indwelling Avendano catheter growing Carbapenem-resistant Klebsiella history of right foot necrotic ulcer with surrounding cellulitis UTI with Enterococcus and Klebsiella chronic renal failure history of DVT DM metastatic Prostate CA history of Enterococcus UTI chronic atrial fibrillation S/P pacemaker and ICD placement Plan continue Gentamicin day 3 and follow up repeat urine cx; would recommend change of Avendano catheter when feasible follow up Urology recommendations and evaluation
[2017-12-12] MEDS: Insulin Human NPH/Reg 70/30 Vial(3 ml) SC SCH (12:30)
--- NOTE | 2017-12-12 12:41 | CP.PCM.PN ---
Subjective - Date & Time of Evaluation Date of Evaluation: 12/12/17 Time of Evaluation: 12:15 - Subjective Subjective: Patient is seen this afternoon in room 317. He is lying in bed and says he feels cold. He says he went for physical therapy this morning. Objective - Vital Signs/Intake and Output Vital Signs (last 24 hours): Temp Pulse Resp BP Pulse Ox 98.6 F 66 18 141/64 100 12/12/17 10:00 12/12/17 10:51 12/12/17 10:00 12/12/17 10:51 12/11/17 17:47 Intake and Output: 12/12/17 12/12/17 06:59 18:59 Intake Total 420 Output Total 1400 Balance -980 - Medications Medications: Current Medications Albuterol/Ipratropium (Duoneb 3 Mg/0.5 Mg (3 Ml) Ud) 3 ml IH Q2H PRN; Protocol PRN Reason: Shortness of Breath Albuterol/Ipratropium (Duoneb 3 Mg/0.5 Mg (3 Ml) Ud) 3 ml IH [id number] JEANA PRN Reason: Protocol Last Admin: 12/12/17 08:13 Dose: 3 ml Amiodarone HCl (Cordarone) 200 mg PO DAILY JEANA PRN Reason: Protocol Last Admin: 12/12/17 10:51 Dose: 200 mg Digoxin (Digoxin) 0.125 mg PO 1400 JEANA PRN Reason: Protocol Last Admin: 12/11/17 14:13 Dose: 0.125 mg Doxercalciferol (Hectorol) 0.5 mcg PO DAILY JEANA PRN Reason: Protocol Last Admin: 12/12/17 10:51 Dose: 0.5 mcg Furosemide (Lasix) 40 mg PO BID JEANA PRN Reason: Protocol Last Admin: 12/12/17 10:51 Dose: 40 mg Gentamicin Sulfate 160 mg/ (Sodium Chloride) 104 mls @ 104 mls/hr IVPB Q24H JEANA PRN Reason: Protocol Last Admin: 12/11/17 15:52 Dose: 104 mls/hr Insulin Human Regular (Humulin R Med) 0 units SC ACHS JEANA PRN Reason: Protocol Last Admin: 12/12/17 12:31 Dose: 3 units Levothyroxine Sodium (Synthroid) 100 mcg PO 0600 JEANA PRN Reason: Protocol Last Admin: 12/12/17 05:49 Dose: 100 mcg Montelukast Sodium (Singulair) 10 mg PO DAILY JEANA PRN Reason: Protocol Last Admin: 12/12/17 10:53 Dose: 10 mg Morphine Sulfate (Morphine) 0.5 mg SC Q4 PRN; Protocol PRN Reason: Pain, severe (8-10) Pantoprazole Sodium (Protonix Ec Tab) 40 mg PO 0600 JEANA PRN Reason: Protocol Last Admin: 12/12/17 05:49 Dose: 40 mg Polyethylene Glycol (Miralax) 17 gm PO DAILY JEANA PRN Reason: Protocol Last Admin: 12/12/17 10:52 Dose: 17 gm Prednisone (Prednisone Tab) 5 mg PO DAILY JEANA PRN Reason: Protocol Last Admin: 12/12/17 10:52 Dose: 5 mg Sucralfate (Carafate Oral Susp) 1 gm PO 0600,1600 JEANA Last Admin: 12/12/17 05:49 Dose: 1 gm Tramadol HCl (Ultram) 50 mg PO TID PRN; Protocol PRN Reason: Pain, moderate (4-7) Last Admin: 12/11/17 08:10 Dose: 50 mg - Labs Labs: 12/12/17 06:15 12/12/17 06:15 - Constitutional Appears: No Acute Distress - Head Exam Head Exam: ATRAUMATIC, NORMOCEPHALIC - Respiratory Exam Respiratory Exam: Clear to Ausculation Bilateral, NORMAL BREATHING PATTERN - Cardiovascular Exam Cardiovascular Exam: +S1, +S2 - GI/Abdominal Exam GI & Abdominal Exam: Soft, Tenderness, Normal Bowel Sounds - Extremities Exam Extremities Exam: Normal Inspection - Neurological Exam Neurological Exam: Alert, Awake, Oriented x3 Assessment and Plan - Assessment and Plan (Free Text) Assessment: complicated UTI with multi drug resistant klebsiella pneumoniae COPD Chronic heart failure CAD Hypothyroidism Metastatic prostate Cancer DMII Plan: Patient is complaining of chills. Vital signs reviewed; patient is afebrile. continue IV Gentamycin as per infectious disease for urinary tract infection. continue physical therapy. Patient with pain of abdomen and back. continue Tramadol as needed. Patient did have a bowel movement yesterday. continue Miralax.
[2017-12-12] MEDS: Digoxin 125 mcg (0.125 mg) Tab PO SCH (13:35)
--- NOTE | 2017-12-12 13:35 | PN ---
DATE: 12/12/2017 REASON FOR CONSULTATION AND FOLLOWUP: Cardiac evaluation followup, history of coronary artery disease, history of percutaneous transluminal coronary angioplasty, pre and post CABG, history of AICD, now in Transitional Care Unit with hematuria. SUBJECTIVE: Patient denies any chest pain, shortness of breath or any palpitation. Complain of loss of weight. OBJECTIVE: GENERAL: Not in apparent distress. VITAL SIGNS: As follows: Temperature afebrile, heart rate 66, blood pressure 140/64. HEENT: PERRLA. Extraocular muscles intact. NECK: Supple. No carotid bruit or thyromegaly. CHEST: Clear to auscultation. HEART: S1, S2, regular. ABDOMEN: Soft. EXTREMITIES: Clubbing and cyanosis negative. LABORATORY DATA: Blood workup as follows: WBC 9.3, hemoglobin 9.6, hematocrit 30.5, platelet count 193. Chemistry showed sodium 137, potassium 4.5, chloride 96, carbon dioxide 34, anion gap of 12, BUN 30, creatinine 0.9, total protein 5.2, albumin 2.8. IMPRESSION: Protein-calorie malnutrition, which was present since admission in TCU, anemia, coronary artery disease, status post coronary artery bypass grafting, status post percutaneous transluminal coronary angioplasty, cardiomyopathy, mitral regurgitation, tricuspid regurgitation, status automatic implantable cardioverter-defibrillator, status post hematuria, prostate carcinoma, history of paroxysmal atrial fibrillation, off anticoagulation because of hematuria without anticoagulation, now patient is in normal sinus; cardiomyopathy, ischemic; pre and post coronary artery bypass grafting, percutaneous transluminal coronary angioplasty, automatic implantable cardioverter-defibrillator, recently generator change on 11/17/2016; last interrogation on 09/20/2017 with normal function. At that time, patient had a shock from the defibrillator, patient had ventricular fibrillation, now patient is stable. RECOMMENDATION: Continue amiodarone 200 mg daily, continue digoxin, continue antibiotic. We will get digoxin level by day after tomorrow. We will get SMA-7, CBC, and digoxin level on . Thank you, Dr. Polk to provide us the opportunity in taking care of patient, Ziggy Amador. We will follow with you. Mely Chavarria MD
[2017-12-12] MEDS ORDERED: Nystatin 100,000 Units/gm Topical Pow(15 gm) TOP PRN ×2 (15:52→15:56)
[2017-12-12] MEDS: Gentamicin 160 MG in Sodium Chloride 0.9% 100 ML IVPB SCH (16:28)
[2017-12-13] MEDS: Albuterol-Ipratrop 3 mg / 0.5 (3 ml) UD IH SCH ×4 (03:00→21:09)
[2017-12-13] MEDS: Levothyroxine 100 MCG TAB PO SCH (06:23)
[2017-12-13] MEDS: Sucralfate 1 gm/10 ml Oral Susp UD PO SCH ×2 (06:23→18:35)
[2017-12-13] MEDS: Pantoprazole 40 mg EC Tab PO SCH (06:23)
[2017-12-13] MEDS: Insulin Reg-MEDIUM-Coverage SC SCH ×4 (06:39→22:58)
--- NOTE | 2017-12-13 08:19 | PN ---
DATE: 12/13/2017 PULMONARY NOTE SUBJECTIVE: The patient appears comfortable at rest. He is not short of breath. PHYSICAL EXAMINATION VITAL SIGNS: (Last noted in the computer): Temperature is 98.4, pulse 68, respirations 18, blood pressure 130/52. Oxygen saturation on nasal cannula is 97%. HEENT: Normocephalic, atraumatic. No JVD. CARDIOVASCULAR: Systolic ejection murmur at the lower left sternal border. No S3 gallop. LUNGS: Improved breath sounds at the bases. Very minimal/less rhonchi. No wheezing. EXTREMITIES: Positive for edema. No cyanosis or clubbing. Calves are nontender to palpation. GI: Abdomen is soft, nontender and nondistended. Bowel sounds are positive. SKIN: No acute rash. NEUROLOGIC: Limited at the present time. IMPRESSION: 1. Hematuria. 2. Advanced prostate cancer. 3. Advanced chronic obstructive pulmonary disease. 4. Advanced coronary artery disease. 5. Chronic kidney disease. 6. Chronic anemia. PLAN: The patient appears comfortable this morning. He is not short of breath at rest. He does state to feeling much better overall. On physical exam, there is very minimal bronchospasm appreciated. In addition, there is no significant alveolar-arterial gradient. I will continue the current nebulizer treatments and low-dose oral steroids for now. Inputs by Cardiology and Infectious Disease are noted. Clinical status of the patient is certainly improved - compared to the initial presentation. However, unfortunately, the future status/prognosis for this elderly patient is poor. All are aware. I will discuss the above with the attending physician. Kwadwo Arias MD [facility]
[2017-12-13] MEDS: POLYETHYLENE GLYCOL 3350 17 GM/Dose PACKET PO SCH (09:43)
[2017-12-13] MEDS: Insulin Human NPH/Reg 70/30 Vial(3 ml) SC SCH (12:02)
--- NOTE | 2017-12-13 13:48 | PN ---
DATE: SUBJECTIVE: The patient is in the Transitional Care Unit, room 317, bed 1. This is an 87-year-old white male. He was admitted to the Transitional Care Unit for continued treatment for urinary tract infection. The patient has hematuria, has history of congestive heart failure, diabetes. The patient was seen this morning. He complains of pain in the lower back. His urine is clear. He has a Avendano catheter, which he has had for many years now. PHYSICAL EXAMINATION: VITAL SIGNS: Pulse is 68, blood pressure 130/52, respirations are 20, temperature 98.4. HEENT: His head is normocephalic. He has some tenderness in the occipital area of the head. LUNGS: Trachea is central. Breath sounds are vesicular. No adventitious sounds. HEART: Normal sinus rhythm. S1 and S2 present. The patient has a cardiac pacemaker and defibrillator. ABDOMEN: Soft. Liver and spleen not palpable. CENTRAL NERVOUS SYSTEM: The patient is conscious, rational and oriented. The patient has no focal deficits are noted at this time. LABORATORY FINDINGS: The hemoglobin 9.6, his white count is within normal limits. His chemistry is noted that his BUN is 30, creatinine is 0.9. These number are much improved. The patient's blood sugar is possibly 257. MEDICATIONS: The patient's medications list consists of the patient is on Carafate 1 g p.o. b.i.d., amiodarone 200 mg daily, digoxin 125 mcg daily, DuoNeb respiratory treatment. The patient is on gentamicin 160 mg IV q. 24 hours. The patient's diabetes is covered by insulin. The patient gets insulin with meals as well as the standard dose of Humulin long-acting insulin. The patient is on vitamin D, MiraLax for constipation, morphine for pain. The patient is on prednisone 5 mg daily for chronic respiratory difficulty, chronic obstructive lung disease. The patient is also taking montelukast, which is Singular 10 mg daily, pantoprazole 40 mg daily, Synthroid 100 mcg daily, tramadol 50 mg t.i.d. for pain p.r.n. ASSESSMENT AND PLAN: The patient will get physical therapy. We will follow up. The patient is a do not resuscitate, so we are going to put him on do not resuscitate and order will be placed on the patient's chart. Giselle Polk MD [facility] # [id number]
[2017-12-13] MEDS: Digoxin 125 mcg (0.125 mg) Tab PO SCH (14:58)
--- NOTE | 2017-12-13 16:27 | PN ---
DATE: 12/13/2017 LOCATION: Patient in room 317, bed 1. REASON FOR CONSULTATION AND FOLLOWUP: Coronary artery disease, history of stent insertion, history of COPD, AICD insertion for ischemic cardiomyopathy, hematuria, deconditioning. SUBJECTIVE: The patient is sitting in bed without any cardiac symptoms of chest pain, shortness of breath, or palpitation; complained of feeling being tired, and aches and pains all over the body. PHYSICAL EXAMINATION: VITAL SIGNS: Blood pressure 127/57, respirations 18, pulse 60, temperature 98.1. HEENT: Head is normocephalic. Eyes: Pupils normal. Conjunctivae slightly pale. NECK: JVP low. Carotid equal. THORAX: AP diameter normal. LUNGS: No rales. CARDIOVASCULAR: S1 and S2, systolic murmur. No rub. ABDOMEN: Tenderness in the pelvic area. EXTREMITIES: No clubbing. No cyanosis. LABORATORY DATA: WBC is 9.3, hemoglobin 9.6, hematocrit 30.5, and platelets 193. Sodium 137, potassium 4.5. BUN 30, creatinine 0.9. Random sugar 240. Calcium, phosphorus, magnesium, and bilirubin are normal. Alkaline phosphatase is 257. Total protein 5.2, albumin 2.8. DIAGNOSES: Hematuria, carcinoma of the prostate with metastasis, status post coronary artery disease, status post angioplasty and stent insertion, status post coronary artery bypass grafting, cardiomyopathy, status post automatic implantable cardioverter-defibrillator insertion, mitral regurgitation, tricuspid regurgitation, paroxysmal atrial fibrillation, off anticoagulation because of hematuria, status post automatic implantable cardioverter-defibrillator generator change on 11/17/2016, last interrogation on 09/20/2017, showing normal function. History of shock for ventricular fibrillation in the past, deconditioning. PLAN: The patient is on amiodarone 200 daily, digoxin 0.125 daily, DuoNeb hand nebulizer therapy, gentamicin 160 mg IV q. 24 hours, insulin as ordered, levothyroxine 100 mcg p.o. daily, Singulair 10 mg daily, Protonix 40 daily, prednisone 5 mg daily, furosemide 40 b.i.d. Continue physical therapy. We will follow with you. Mely Walters MD
--- NOTE | 2017-12-13 18:23 | CP.PCM.PN ---
Subjective - Date & Time of Evaluation Date of Evaluation: 12/13/17 Time of Evaluation: 11:00 - Subjective Subjective: No fevers, not in distress. Objective - Vital Signs/Intake and Output Vital Signs (last 24 hours): Temp Pulse Resp BP Pulse Ox 98.4 F 68 20 130/52 L 97 12/12/17 17:35 12/12/17 17:35 12/12/17 17:35 12/12/17 17:47 12/12/17 17:35 Intake and Output: 12/13/17 12/13/17 06:59 18:59 Intake Total 240 240 Output Total 700 1000 Balance -460 -760 - Medications Medications: Current Medications Albuterol/Ipratropium (Duoneb 3 Mg/0.5 Mg (3 Ml) Ud) 3 ml IH Q2H PRN; Protocol PRN Reason: Shortness of Breath Albuterol/Ipratropium (Duoneb 3 Mg/0.5 Mg (3 Ml) Ud) 3 ml IH [id number] JEANA PRN Reason: Protocol Last Admin: 12/13/17 07:19 Dose: 3 ml Amiodarone HCl (Cordarone) 200 mg PO DAILY JEANA PRN Reason: Protocol Last Admin: 12/12/17 10:51 Dose: 200 mg Digoxin (Digoxin) 0.125 mg PO 1400 JEANA PRN Reason: Protocol Last Admin: 12/12/17 13:35 Dose: 0.125 mg Doxercalciferol (Hectorol) 0.5 mcg PO DAILY JEANA PRN Reason: Protocol Last Admin: 12/12/17 10:51 Dose: 0.5 mcg Furosemide (Lasix) 40 mg PO BID JEANA PRN Reason: Protocol Last Admin: 12/12/17 17:47 Dose: 40 mg Gentamicin Sulfate 160 mg/ (Sodium Chloride) 104 mls @ 104 mls/hr IVPB Q24H JEANA PRN Reason: Protocol Last Admin: 12/12/17 16:28 Dose: 104 mls/hr Insulin Human Regular (Humulin R Med) 0 units SC ACHS JEANA PRN Reason: Protocol Last Admin: 12/13/17 06:39 Dose: Not Given Levothyroxine Sodium (Synthroid) 100 mcg PO 0600 JEANA PRN Reason: Protocol Last Admin: 12/13/17 06:23 Dose: 100 mcg Montelukast Sodium (Singulair) 10 mg PO DAILY [facility] PRN Reason: Protocol Last Admin: 12/12/17 10:53 Dose: 10 mg Morphine Sulfate (Morphine) 0.5 mg SC Q4 PRN; Protocol PRN Reason: Pain, severe (8-10) Nystatin (Nystop Topical Powder) 0 gm TOP BID PRN; Protocol PRN Reason: Rash Pantoprazole Sodium (Protonix Ec Tab) 40 mg PO 0600 JEANA PRN Reason: Protocol Last Admin: 12/13/17 06:23 Dose: 40 mg Polyethylene Glycol (Miralax) 17 gm PO DAILY [facility] PRN Reason: Protocol Last Admin: 12/12/17 10:52 Dose: 17 gm Prednisone (Prednisone Tab) 5 mg PO 0800 [facility] PRN Reason: Protocol Sucralfate (Carafate Oral Susp) 1 gm PO 0600,1600 [facility] Last Admin: 12/13/17 06:23 Dose: 1 gm Tramadol HCl (Ultram) 50 mg PO TID PRN; Protocol PRN Reason: Pain, moderate (4-7) Last Admin: 12/12/17 13:35 Dose: 50 mg - Labs Labs: 12/12/17 06:15 12/12/17 06:15 - Constitutional Appears: Chronically Ill - Head Exam Head Exam: NORMAL INSPECTION - ENT Exam ENT Exam: Mucous Membranes Moist - Neck Exam Neck Exam: absent: Meningismus - Respiratory Exam Respiratory Exam: Decreased Breath Sounds - Cardiovascular Exam Cardiovascular Exam: +S1, +S2 - GI/Abdominal Exam GI & Abdominal Exam: Soft. absent: Tenderness Assessment and Plan - Assessment and Plan (Free Text) Plan: Assessment consider complicated UTI with multi-drug resistant Klebsiella in this patient with chronic indwelling Avendano catheter history of sepsis due to systemic viral illness with Influenza as well as UTI with E. coli and E. faecalis history of severe sepsis with acute renal failure due to E. 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 diff. associated diarrhea S/P lower urinary tract infection in a patient with indwelling Avendano catheter growing Carbapenem-resistant Klebsiella history of right foot necrotic ulcer with surrounding cellulitis UTI with Enterococcus and Klebsiella chronic renal failure history of DVT DM metastatic Prostate CA history of Enterococcus UTI chronic atrial fibrillation S/P pacemaker and ICD placement Plan continue Gentamicin day 4 and follow up repeat urine cx; would recommend change of Avendano catheter when feasible; complete 7 days of antibiotics follow up Urology recommendations and evaluation
[2017-12-13] MEDS: Gentamicin 160 MG in Sodium Chloride 0.9% 100 ML IVPB SCH (18:34)
[2017-12-14] MEDS: Albuterol-Ipratrop 3 mg / 0.5 (3 ml) UD IH SCH ×4 (01:20→19:48)
[2017-12-14] MEDS: Sucralfate 1 gm/10 ml Oral Susp UD PO SCH ×2 (05:53→16:47)
[2017-12-14] MEDS: Levothyroxine 100 MCG TAB PO SCH (05:53)
[2017-12-14] MEDS: Pantoprazole 40 mg EC Tab PO SCH (05:53)
[2017-12-14 06:48] LABS: BASO # 0.04 K/mm3 (0.0-2.0); BASO % 0.4 % (0.0-3.0); EOS # 0.2 (0.0-0.7); GRAN # 6.72 (1.4-6.5); GRAN % 72.9 % (50.0-68.0); HEMOGLOBIN 9.5 g/dL (14.0-18.0); LYMPH # 1.4 (1.2-3.4); LYMPH % 14.6 % (22.0-35.0); MEAN CELL VOLUME 88.6 fl (80.0-105.0); MEAN CORPUSCULAR HEMOGLOBIN 27.7 pg (25.0-35.0); MEAN CORPUSCULAR HGB CONC 31.3 g/dl (31.0-37.0); MEAN PLATELET VOLUME 10.1 fl (7.0-11.0); MONO # 0.9 (0.1-0.6); MONO % 10.1 % (1.0-6.0); RBC 3.43 10^6/uL (3.5-6.1); RED CELL DISTRIBUTION WIDTH 17.1 % (11.5-14.5); WHITE BLOOD COUNT 9.2 10^3/ul (4.5-11.0)
--- NOTE | 2017-12-14 07:05 | PN ---
DATE: PULMONARY NOTE SUBJECTIVE: The patient appears comfortable this morning. He is not short of breath at rest. OBJECTIVE VITAL SIGNS (last noted in the computer): Temperature is 98.5, pulse 73, respirations 18, blood pressure 132/62. Oxygen saturation on nasal cannula is 98%. HEENT: Normocephalic, atraumatic. NECK: No JVD. CARDIOVASCULAR: Systolic ejection murmur at the lower left sternal border. No S3 gallop. LUNGS: Very minimal/less rhonchi. No wheezing. EXTREMITIES: Positive for edema. No cyanosis, no clubbing. Calves are nontender to palpation. GASTROINTESTINAL: Abdomen is soft, nontender and nondistended. Bowel sounds are positive. SKIN: No acute rash. NEUROLOGIC: Exam limited at the present time. IMPRESSION 1. Hematuria. 2. Advanced prostate cancer. 3. Advanced chronic obstructive pulmonary disease. 4. Advanced coronary artery disease. 5. Chronic kidney disease. 6. Chronic anemia. PLAN: The patient appears comfortable this morning. He is not short of breath at rest. He does state to feeling much better overall. On physical exam, his bronchospasm continues to resolve. In addition, there is no significant alveolar-arterial gradient. I will continue the current nebulizer treatments and low-dose oral steroids for now. Inputs by Cardiology and Infectious Disease are noted. Clinical status of the patient is certainly improved - compared to the initial status. However, again, unfortunately, the future status/prognosis for this patient does remain poor. All are aware. I will discuss the above with the attending physician. Kwadwo Arias MD [facility]
[2017-12-14 07:16] LABS: BLOOD UREA NITROGEN 37 mg/dL (7-21); CALCIUM 8.6 mg/dL (8.4-10.5); GFR AFRICAN-AMERICAN > 60; GFR NON-AFRICAN AMERICAN > 60
--- NOTE | 2017-12-14 07:53 | CON ---
DATE:12/13/17 GENITOURINARY CONSULTATION CHIEF COMPLAINT: Gross hematuria. HISTORY OF PRESENT ILLNESS: This is an 87-year-old male who is well known to me. 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 He was being seen by visiting nurse, who noted hematuria in his Avendano. The patient reports that he told the nurses it was okay and that this is a chronic issue; however, the nurses wanted him to come to the hospital which he did and he was then admitted. In the emergency department, his Avendano catheter was changed, his bladder was irrigated , then he was started on bladder irrigation. He was started on antibiotics as well, although he reports no fever or chills. His urine cleared, and he is now seen on the Transitional Care Unit at [facility]. consultation was requested regarding the above. The patient currently reports feeling well and he is doing physical therapy and able to ambulate with assistance. PAST MEDICAL HISTORY: Metastatic prostate cancer, chronic heart failure, COPD, hypothyroidism, coronary artery disease, cardiac arrhythmia, urinary retention, recurrent sepsis, decubital ulcers. MEDICATIONS: Currently include Carafate, Cordarone, digoxin, DuoNeb, gentamicin, Hectorol, insulin coverage, Lasix, MiraLax, nystatin powder, prednisone, Protonix, Singulair, Synthroid and Ultram. ALLERGIES: ALLERGIC TO IV CONTRAST AND LEVAQUIN, CHOCOLATE FLAVORING. FAMILY HISTORY: Noncontributory for this admission. SOCIAL HISTORY: No smoking or EtOH use. REVIEW OF SYSTEMS: Positives for weakness. Positive for lethargy. Positive for gross hematuria and urinary retention. Positive for back pain and joint pain. Negative for fever or chills. Negative for nausea or vomiting. Negative for dizziness or headaches. Other systems also are negative. PHYSICAL EXAMINATION: GENERAL: The patient is seen receiving rehab. He is ambulating slowly with assistance, but he is weightbearing. He is afebrile. Temperature of 98.1, pulse of 60, BP 130/52, respirations 18. NECK: Supple. There is no obvious adenopathy. CHEST : Reveals normal inspiratory effort. CARDIAC: Positive S1 and S2. There is mild peripheral edema noted. ABDOMEN: Soft, nontender, nondistended. There is no hepatosplenomegaly or CVA tenderness. GENITOURINARY: Phallus is normal. There is a Avendano catheter in place which is draining clear urine. Scrotum is normal. Testes bilaterally descended, nontender, no masses. Epididymis are normal. SKIN: The patient has a decubital ulcer noted on his lower back to buttock region. LABORATORY DATA: On laboratory exam, WBC count 9.3, hemoglobin 9.6. GFR greater than 60. Last urine culture grew Klebsiella pneumonia. Blood cultures were no growth. IMPRESSION: This is an 87-year-old male with metastatic prostate cancer. The patient has recurrent hematuria after his Avendano catheter is changed. Usually, this will clear with fluids. The patient has been having recurrent urinary infections, which is normal with an indwelling catheter. However, he has had few episodes of urosepsis. PLAN: For now is to continue antibiotics. The patient should follow up in my office as an outpatient as scheduled for routine Avendano catheter changes. He has been seeing Dr. Carballo for the metastatic prostate cancer. However, given the patient's overall medical condition, he does not tolerate any of the advanced therapies due to his heart disease. We will continue to monitor his PSA and progression along with Dr. Carballo, who felt the patient could not receive any advanced chemotherapy. Eddie Louise MD [facility]
--- NOTE | 2017-12-14 08:18 | CP.PCM.PN ---
Subjective - Date & Time of Evaluation Date of Evaluation: 12/14/17 Time of Evaluation: 08:00 - Subjective Subjective: Patient is seen this morning. He is complaining of pain in his back and shortness of breath when walking. Objective - Vital Signs/Intake and Output Vital Signs (last 24 hours): Temp Pulse Resp BP Pulse Ox 98.5 F 73 20 132/62 98 12/13/17 16:28 12/13/17 16:28 12/13/17 16:28 12/13/17 18:36 12/13/17 16:28 Intake and Output: 12/14/17 12/14/17 06:59 18:59 Intake Total 420 Output Total 1350 Balance -930 - Medications Medications: Current Medications Albuterol/Ipratropium (Duoneb 3 Mg/0.5 Mg (3 Ml) Ud) 3 ml IH Q2H PRN; Protocol PRN Reason: Shortness of Breath Albuterol/Ipratropium (Duoneb 3 Mg/0.5 Mg (3 Ml) Ud) 3 ml IH [id number] JEANA PRN Reason: Protocol Last Admin: 12/14/17 07:28 Dose: 3 ml Amiodarone HCl (Cordarone) 200 mg PO DAILY [facility]EANA PRN Reason: Protocol Last Admin: 12/13/17 09:43 Dose: 200 mg Digoxin (Digoxin) 0.125 mg PO 1400 [facility]EANA PRN Reason: Protocol Last Admin: 12/13/17 14:58 Dose: 0.125 mg Doxercalciferol (Hectorol) 0.5 mcg PO DAILY [facility]EA[facility] PRN Reason: Protocol Last Admin: 12/13/17 09:43 Dose: 0.5 mcg Furosemide (Lasix) 40 mg PO BID [facility]EANA PRN Reason: Protocol Last Admin: 12/13/17 18:36 Dose: 40 mg Gentamicin Sulfate 160 mg/ (Sodium Chloride) 104 mls @ 104 mls/hr IVPB Q24H JEANA PRN Reason: Protocol Last Admin: 12/13/17 18:34 Dose: 104 mls/hr Insulin Human Regular (Humulin R Med) 0 units SC ACHS JEANA PRN Reason: Protocol Last Admin: 12/13/17 22:58 Dose: Not Given Levothyroxine Sodium (Synthroid) 100 mcg PO 0600 [facility] PRN Reason: Protocol Last Admin: 03/01/18 05:53 Dose: 100 mcg Montelukast Sodium (Singulair) 10 mg PO DAILY [facility] PRN Reason: Protocol Last Admin: 12/13/17 09:43 Dose: 10 mg Nystatin (Nystop Topical Powder) 0 gm TOP BID PRN; Protocol PRN Reason: Rash Pantoprazole Sodium (Protonix Ec Tab) 40 mg PO 0600 [facility] PRN Reason: Protocol Last Admin: 12/14/17 05:53 Dose: 40 mg Polyethylene Glycol (Miralax) 17 gm PO DAILY [facility] PRN Reason: Protocol Last Admin: 12/13/17 09:43 Dose: 17 gm Prednisone (Prednisone Tab) 5 mg PO 0800 [facility] PRN Reason: Protocol Last Admin: 12/13/17 09:43 Dose: 5 mg Sucralfate (Carafate Oral Susp) 1 gm PO 0600,1600 COUNTS INCLUDE 234 BEDS AT THE [facility] Last Admin: 12/14/17 05:53 Dose: 1 gm Tramadol HCl (Ultram) 50 mg PO TID PRN; Protocol PRN Reason: Pain, moderate (4-7) Last Admin: 12/13/17 23:01 Dose: 50 mg - Labs Labs: 12/14/17 06:15 12/14/17 06:15 - Constitutional Appears: No Acute Distress - Head Exam Head Exam: ATRAUMATIC, NORMOCEPHALIC - Respiratory Exam Respiratory Exam: Clear to Ausculation Bilateral, NORMAL BREATHING PATTERN - Cardiovascular Exam Cardiovascular Exam: +S1, +S2 - GI/Abdominal Exam GI & Abdominal Exam: Soft, Normal Bowel Sounds - Neurological Exam Neurological Exam: Alert, Awake, Oriented x3 Assessment and Plan - Assessment and Plan (Free Text) Assessment: MDR Klebsiella pneumoniae UTI COPD Chronic heart failure HTN CAD chronic indwelling schroeder catheter Hypothyroidism DMII Plan: Patient has pain in his buttocks area when sitting or lying down. Discussed with nurse. Will try to get air mattress for patient. continue Gentamycin for urinary tract infection as per infectious disease. continue physical therapy.
[2017-12-14] MEDS: POLYETHYLENE GLYCOL 3350 17 GM/Dose PACKET PO SCH (09:56)
--- NOTE | 2017-12-14 11:03 | CP.PCM.PN ---
Subjective - Date & Time of Evaluation Date of Evaluation: 12/14/17 Time of Evaluation: 10:10 - Subjective Subjective: Comfortable, no fevers, occasional back pain. No pain along Avendano catheter. Objective - Vital Signs/Intake and Output Vital Signs (last 24 hours): Temp Pulse Resp BP Pulse Ox 98.5 F 73 20 132/62 98 12/13/17 16:28 12/13/17 16:28 12/13/17 16:28 12/13/17 18:36 12/13/17 16:28 Intake and Output: 12/14/17 12/14/17 06:59 18:59 Intake Total 420 Output Total 1350 Balance -930 - Medications Medications: Current Medications Albuterol/Ipratropium (Duoneb 3 Mg/0.5 Mg (3 Ml) Ud) 3 ml IH Q2H PRN; Protocol PRN Reason: Shortness of Breath Albuterol/Ipratropium (Duoneb 3 Mg/0.5 Mg (3 Ml) Ud) 3 ml IH [id number] JEANA PRN Reason: Protocol Last Admin: 12/14/17 07:28 Dose: 3 ml Amiodarone HCl (Cordarone) 200 mg PO DAILY [facility] PRN Reason: Protocol Last Admin: 12/13/17 09:43 Dose: 200 mg Digoxin (Digoxin) 0.125 mg PO 1400 [facility]EANA PRN Reason: Protocol Last Admin: 12/13/17 14:58 Dose: 0.125 mg Doxercalciferol (Hectorol) 0.5 mcg PO DAILY JEANA PRN Reason: Protocol Last Admin: 12/13/17 09:43 Dose: 0.5 mcg Furosemide (Lasix) 40 mg PO BID JEANA PRN Reason: Protocol Last Admin: 12/13/17 18:36 Dose: 40 mg Gentamicin Sulfate 160 mg/ (Sodium Chloride) 104 mls @ 104 mls/hr IVPB Q24H JEANA PRN Reason: Protocol Last Admin: 12/13/17 18:34 Dose: 104 mls/hr Insulin Human Regular (Humulin R Med) 0 units SC ACHS JEANA PRN Reason: Protocol Last Admin: 12/13/17 22:58 Dose: Not Given Levothyroxine Sodium (Synthroid) 100 mcg PO 0600 [facility] PRN Reason: Protocol Last Admin: 12/14/17 05:53 Dose: 100 mcg Montelukast Sodium (Singulair) 10 mg PO DAILY [facility] PRN Reason: Protocol Last Admin: 12/13/17 09:43 Dose: 10 mg Nystatin (Nystop Topical Powder) 0 gm TOP BID PRN; Protocol PRN Reason: Rash Pantoprazole Sodium (Protonix Ec Tab) 40 mg PO 0600 JEANA PRN Reason: Protocol Last Admin: 12/14/17 05:53 Dose: 40 mg Polyethylene Glycol (Miralax) 17 gm PO DAILY [facility] PRN Reason: Protocol Last Admin: 12/13/17 09:43 Dose: 17 gm Prednisone (Prednisone Tab) 5 mg PO 0800 [facility] PRN Reason: Protocol Last Admin: 12/13/17 09:43 Dose: 5 mg Sucralfate (Carafate Oral Susp) 1 gm PO 0600,1600 [facility] Last Admin: 12/14/17 05:53 Dose: 1 gm Tramadol HCl (Ultram) 50 mg PO TID PRN; Protocol PRN Reason: Pain, moderate (4-7) Last Admin: 12/13/17 23:01 Dose: 50 mg - Labs Labs: 12/14/17 06:15 12/14/17 06:15 - Constitutional Appears: Chronically Ill - Head Exam Head Exam: NORMAL INSPECTION - Neck Exam Neck Exam: absent: Meningismus - Respiratory Exam Respiratory Exam: Decreased Breath Sounds - Cardiovascular Exam Cardiovascular Exam: +S1, +S2 - GI/Abdominal Exam GI & Abdominal Exam: Soft. absent: Tenderness Assessment and Plan - Assessment and Plan (Free Text) Plan: Assessment consider complicated UTI with multi-drug resistant Klebsiella in this patient with chronic indwelling Avendano catheter history of sepsis due to systemic viral illness with Influenza as well as UTI with E. coli and E. faecalis history of severe sepsis with acute renal failure due to E. 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 diff. associated diarrhea S/P lower urinary tract infection in a patient with indwelling Avendano catheter growing Carbapenem-resistant Klebsiella history of right foot necrotic ulcer with surrounding cellulitis UTI with Enterococcus and Klebsiella chronic renal failure history of DVT DM metastatic Prostate CA history of Enterococcus UTI chronic atrial fibrillation S/P pacemaker and ICD placement Plan continue Gentamicin day 5 and follow up repeat urine cx (still showing 10-50 GNB , but decreased in colony count); would recommend change of Avendano catheter when feasible; complete at least 7 days of antibiotics follow up Urology recommendations and evaluation
[2017-12-14] MEDS: Insulin Reg-MEDIUM-Coverage SC SCH ×3 (12:14→22:25)
[2017-12-14] MEDS: Insulin Human NPH/Reg 70/30 Vial(3 ml) SC SCH (12:16)
[2017-12-14] MEDS: Digoxin 125 mcg (0.125 mg) Tab PO SCH (14:17)
[2017-12-14] MEDS: Gentamicin 160 MG in Sodium Chloride 0.9% 100 ML IVPB SCH (16:46)
--- NOTE | 2017-12-14 19:30 | PN ---
DATE: REASON FOR CONSULTATION: Follow up coronary artery disease, history of stent placement, history of COPD, history of AICD, cardiomyopathy, admitted with hematuria, deconditioning of the body, history of prostate CA. The patient denies any chest pain, shortness of breath, palpitation. OBJECTIVE: GENERAL: Not in apparent distress. On admission with hematuria, which is clearing up. VITAL SIGNS: As follows: Temperature afebrile, heart rate 73, blood pressure 132/63. HEENT: PERRLA. Extraocular muscles intact. NECK: Supple. No carotid bruits or thyromegaly. CHEST: Clear to auscultation. HEART: S1 and S2 regular. ABDOMEN: Soft. EXTREMITIES: Clubbing and cyanosis negative. LABORATORY DATA: Blood workup as follows: WBC , hemoglobin 9.5, hematocrit 30.4, platelet count 230. Chemistry showed sodium 134, potassium , anion gap of 12, BUN 30, creatinine 1.1. IMPRESSION: Gross hematuria, prostate cancer, coronary artery disease, status post coronary artery bypass graft, status post percutaneous transluminal coronary angioplasty, status post mitral valve regurgitation, history of paroxysmal atrial fibrillation, not on anticoagulation because of gross hematuria, history of deep vein thrombosis and pulmonary embolism in the past, history of automatic implantable cardioverter-defibrillator, history of generator change in 11/2016. Last interrogation 09/20/2017, normal functioning, history of shock at that time. The patient had ventricular fibrillation with shock delivered. RECOMMENDATIONS: Continue amiodarone, continue digoxin, continue nebulizer treatment. The patient is on IV antibiotic. Continue levothyroxine, Lasix p.o. 40 b.i.d. CVS status is stable. No anginal symptom. We will follow with you. Thank you, Dr. Polk, for providing us the opportunity in taking care of the patient, Ziggy Amador. Mely Chavarria MD
[2017-12-15] MEDS: Albuterol-Ipratrop 3 mg / 0.5 (3 ml) UD IH SCH ×4 (02:00→20:35)
[2017-12-15] MEDS: Sucralfate 1 gm/10 ml Oral Susp UD PO SCH ×2 (05:48→17:19)
[2017-12-15] MEDS: Levothyroxine 100 MCG TAB PO SCH (05:49)
[2017-12-15] MEDS: Pantoprazole 40 mg EC Tab PO SCH (05:49)
[2017-12-15] MEDS: Insulin Reg-MEDIUM-Coverage SC SCH ×4 (06:55→21:55)
--- NOTE | 2017-12-15 08:34 | PN ---
DATE: 12/15/2017 PULMONARY NOTE SUBJECTIVE: The patient appears comfortable this morning. He is not short of breath at rest. PHYSICAL EXAMINATION VITAL SIGNS: (Last noted in the computer): Temperature is 98.3, pulse is 60, respirations 18, blood pressure 121/47. Oxygen saturation on nasal cannula is 98%. HEENT: Normocephalic, atraumatic. No JVD. CARDIOVASCULAR: Systolic ejection murmur at the lower left sternal border. No S3 gallop. LUNGS: Very minimal/less rhonchi. No wheezing. EXTREMITIES: Less edema. No cyanosis, no clubbing. Calves are nontender to palpation. GI: Abdomen is soft, nontender and nondistended. Bowel sounds are positive. SKIN: No acute rash. NEUROLOGIC: Limited at the present time. IMPRESSION: 1. Hematuria. 2. Advanced prostate cancer. 3. Advanced chronic obstructive pulmonary disease. 4. Advanced coronary artery disease. 5. Chronic kidney disease. 6. Chronic anemia. PLAN: The patient appears comfortable this morning. He is not short of breath at rest. He does state that he is still weak on his feet. However, he does state to feeling much better overall. On physical exam, his bronchospasm is now minimal. In addition, there is no significant alveolar-arterial gradient. I will continue the current nebulizer treatments and low-dose oral steroids for now. Inputs by Cardiology and Infectious Disease are noted. Clinical status of the patient is certainly improved - compared to the initial presentation. However, unfortunately, the future status/prognosis of this patient remains poor. All are aware. I will discuss the above with the attending physician. Kwadwo Arias MD [facility]
[2017-12-15] MEDS: POLYETHYLENE GLYCOL 3350 17 GM/Dose PACKET PO SCH (11:00)
[2017-12-15] MEDS: Insulin Human NPH/Reg 70/30 Vial(3 ml) SC SCH (12:00)
--- NOTE | 2017-12-15 12:21 | PN ---
DATE: SUBJECTIVE: The patient is in the Transitional Care Unit, room 317, bed 1. The patient was admitted with sepsis, urinary tract infection, hematuria, congestive heart failure. The patient is in Transitional Care Unit for deconditioning, continue antibiotic treatment for urinary tract infection. The patient also getting physical therapy at rehabilitation. PHYSICAL EXAMINATION: VITAL SIGNS: This morning, the patient's pulse is 60, blood pressure 120/50. LUNGS: Breath sounds are diminished bilaterally. HEART: Normal sinus rhythm. The patient has a cardiac pacemaker and defibrillator. ABDOMEN: Soft. Liver and spleen not palpable. CENTRAL NERVOUS SYSTEM: The patient is conscious, rational and oriented. No deficits. The patient had difficulty walking. He has severe pain in the back. 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 MEDICATIONS: The patient's list of medication consists of Carafate, amiodarone, digoxin, albuterol, gentamicin, antibiotic. The patient is on insulin coverage for diabetes. The patient also gets Lasix for congestive heart failure twice a day, prednisone 5 mg daily for chronic lung disease. LABORATORY DATA: His recent blood work shows that the hemoglobin is 9.5. The patient's chemistry, the BUN was 37, creatinine 1.1, blood sugar is 134. The patient's overall prognosis guarded. Condition seem to be improving. Continue current management and followup. We will continue all medications and followup. Giselle Polk MD
[2017-12-15] MEDS: Digoxin 125 mcg (0.125 mg) Tab PO SCH (13:00)
[2017-12-15] MEDS ORDERED: Morphine 2 mg/ml ISec SC PRN (13:06)
--- NOTE | 2017-12-15 13:21 | PN ---
DATE: 12/15/2017 LOCATION: The patient in room 317, bed 1. REASON FOR CONSULTATION AND FOLLOWUP: Coronary artery disease, history of stent placement, history of COPD, history of CABG, ischemic cardiomyopathy, AICD insertion, paroxysmal atrial fibrillation, hematuria, carcinoma of prostate with metastasis, hematuria. SUBJECTIVE: The patient feels weak. Denies any chest pain, shortness of breath or palpitation. PHYSICAL EXAMINATION: VITAL SIGNS: Blood pressure 107/68, respirations 16, pulse 67, temperature 97.5. HEENT: Head is normocephalic. Eyes: Pupils normal. Conjunctivae slightly pale. NECK: JVP low. Carotids equal. THORAX: AP diameter normal. LUNGS: Clear. CARDIOVASCULAR: S1 and S2. Systolic murmur. No rub. ABDOMEN: Soft. No tenderness. No organomegaly. Bowel sounds normal. EXTREMITIES: No clubbing. No cyanosis. LABORATORY DATA: WBC 9.2, hemoglobin 9.5, hematocrit 30.4, platelet 230. Random sugar 203. Sodium 134, potassium 5.0, BUN 37, creatinine 1.1, random glucose 114. DIAGNOSES: Gross hematuria; prostate cancer with metastasis including bones; coronary artery disease, status post coronary bypass surgery, status post multiple stents; ischemic cardiomyopathy, status post automatic implantable cardioverter-defibrillator insertion; paroxysmal atrial fibrillation, not on anticoagulation because of gross hematuria; history of deep vein thrombosis and pulmonary embolism in the past; history of automatic implantable cardioverter-defibrillator insertion as mentioned before, generator change took place in 11/2016. Last interrogation done on 09/20/2017 showed normal function. The patient had a shock at that time and it was related to ventricular fibrillation. Clinically, the patient's cardiac status is stable. We will continue present therapy with digoxin 0.125 daily, amiodarone 200 daily, insulin as ordered, furosemide 40 b.i.d., prednisone 5 mg daily, Protonix 40 daily, Singulair 10 mg daily, levothyroxine 100 mcg daily. Continue physical therapy. We will follow. Mely Walters MD
[2017-12-15] MEDS: Gentamicin 160 MG in Sodium Chloride 0.9% 100 ML IVPB SCH (17:18)
--- NOTE | 2017-12-15 18:30 | CP.PCM.PN ---
Subjective - Date & Time of Evaluation Date of Evaluation: 12/15/17 Time of Evaluation: 11:10 - Subjective Subjective: No fevers, not in distress but still having occasional back pain. Objective - Vital Signs/Intake and Output Vital Signs (last 24 hours): Temp Pulse Resp BP Pulse Ox 98.5 F 73 20 140/70 98 12/13/17 16:28 12/13/17 16:28 12/13/17 16:28 12/14/17 09:56 12/13/17 16:28 Intake and Output: 12/14/17 12/14/17 06:59 18:59 Intake Total 420 Output Total 1350 Balance -930 - Medications Medications: Current Medications Albuterol/Ipratropium (Duoneb 3 Mg/0.5 Mg (3 Ml) Ud) 3 ml IH Q2H PRN; Protocol PRN Reason: Shortness of Breath Albuterol/Ipratropium (Duoneb 3 Mg/0.5 Mg (3 Ml) Ud) 3 ml IH [id number] [facility] PRN Reason: Protocol Last Admin: 12/14/17 07:28 Dose: 3 ml Amiodarone HCl (Cordarone) 200 mg PO DAILY [facility] PRN Reason: Protocol Last Admin: 12/14/17 09:55 Dose: 200 mg Digoxin (Digoxin) 0.125 mg PO 1400 [facility] PRN Reason: Protocol Last Admin: 12/13/17 14:58 Dose: 0.125 mg Doxercalciferol (Hectorol) 0.5 mcg PO DAILY [facility] PRN Reason: Protocol Last Admin: 12/14/17 09:55 Dose: 0.5 mcg Furosemide (Lasix) 40 mg PO BID [facility] PRN Reason: Protocol Last Admin: 12/14/17 09:56 Dose: 40 mg Gentamicin Sulfate 160 mg/ (Sodium Chloride) 104 mls @ 104 mls/hr IVPB Q24H [facility] PRN Reason: Protocol Last Admin: 12/13/17 18:34 Dose: 104 mls/hr Insulin Human Regular (Humulin R Med) 0 units SC ACHS [facility] PRN Reason: Protocol Last Admin: 12/13/17 22:58 Dose: Not Given Levothyroxine Sodium (Synthroid) 100 mcg PO 0600 [facility] PRN Reason: Protocol Last Admin: 12/14/17 05:53 Dose: 100 mcg Montelukast Sodium (Singulair) 10 mg PO DAILY [facility] PRN Reason: Protocol Last Admin: 12/14/17 09:57 Dose: 10 mg Nystatin (Nystop Topical Powder) 0 gm TOP BID PRN; Protocol PRN Reason: Rash Pantoprazole Sodium (Protonix Ec Tab) 40 mg PO 0600 [facility] PRN Reason: Protocol Last Admin: 12/14/17 05:53 Dose: 40 mg Polyethylene Glycol (Miralax) 17 gm PO DAILY [facility] PRN Reason: Protocol Last Admin: 12/14/17 09:56 Dose: 17 gm Prednisone (Prednisone Tab) 5 mg PO 0800 [facility] PRN Reason: Protocol Last Admin: 12/14/17 09:57 Dose: 5 mg Sucralfate (Carafate Oral Susp) 1 gm PO 0600,1600 [facility] Last Admin: 12/14/17 05:53 Dose: 1 gm Tramadol HCl (Ultram) 50 mg PO TID PRN; Protocol PRN Reason: Pain, moderate (4-7) Last Admin: 12/14/17 09:55 Dose: 50 mg - Labs Labs: 12/14/17 06:15 12/14/17 06:15 - Constitutional Appears: Chronically Ill - Head Exam Head Exam: NORMAL INSPECTION - Neck Exam Neck Exam: absent: Meningismus - Respiratory Exam Respiratory Exam: Decreased Breath Sounds - Cardiovascular Exam Cardiovascular Exam: +S1, +S2 - GI/Abdominal Exam GI & Abdominal Exam: Soft. absent: Tenderness Assessment and Plan - Assessment and Plan (Free Text) Plan: Assessment consider complicated UTI with multi-drug resistant Klebsiella in this patient with chronic indwelling Avendano catheter history of sepsis due to systemic viral illness with Influenza as well as UTI with E. coli and E. faecalis history of severe sepsis with acute renal failure due to E. 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 diff. associated diarrhea S/P lower urinary tract infection in a patient with indwelling Avendano catheter growing Carbapenem-resistant Klebsiella history of right foot necrotic ulcer with surrounding cellulitis UTI with Enterococcus and Klebsiella chronic renal failure history of DVT DM metastatic Prostate CA history of Enterococcus UTI chronic atrial fibrillation S/P pacemaker and ICD placement Plan continue Gentamicin day 6 and follow up repeat urine cx (still showing 10-50 GNB , but decreased in colony count); would recommend change of Avendano catheter when feasible; complete at least 7 days of antibiotics follow up Urology recommendations and evaluation
[2017-12-16] MEDS: Albuterol-Ipratrop 3 mg / 0.5 (3 ml) UD IH SCH ×4 (01:42→20:09)
[2017-12-16] MEDS: Levothyroxine 100 MCG TAB PO SCH (05:46)
[2017-12-16] MEDS: Pantoprazole 40 mg EC Tab PO SCH (05:46)
[2017-12-16] MEDS: Sucralfate 1 gm/10 ml Oral Susp UD PO SCH ×2 (05:47→16:59)
[2017-12-16] MEDS: Insulin Reg-MEDIUM-Coverage SC SCH ×4 (06:43→22:23)
--- NOTE | 2017-12-16 10:03 | PN ---
DATE: SUBJECTIVE: The patient is seen in the Transitional Care Unit, room 317, bed 1. The patient was admitted for treatment of urinary tract infection, hematuria, congestive heart failure, diabetes mellitus, chronic obstructive lung disease. The patient is seen this morning. He complains of pain in his rectal area. The patient has pain in abdomen and he had difficulty in walking and this discomfort is making him very disabled. PHYSICAL EXAMINATION VITAL SIGNS: This morning, the pulse is 60, blood pressure 130/56. The patient's respirations are 16. LUNGS: Clinically clear. HEART: Normal sinus rhythm. The patient has a cardiac pacemaker. ABDOMEN: Soft. There are no tenderness or masses. CENTRAL NERVOUS SYSTEM: He is conscious, able to talk. He has no focal neurological deficit. MEDICATIONS: His medications will remain the same. He is on Carafate, amiodarone, digoxin, DuoNeb, gentamicin, vitamin D, insulin coverage for diabetes. The patient is on Lasix twice a day. The patient is on morphine as ordered for p.r.n., which is severe pain. LABORATORY DATA: The hemoglobin is 9.5, that was done on 12/14/2017. No blood work has been repeated yet. ASSESSMENT AND PLAN: The patient's condition is improving, but sometimes, the patient has to sit back and this morning, he is complaining of discomfort and poor appetite and nausea at times. We will continue current management and follow up. Giselle Polk MD
[2017-12-16] MEDS: POLYETHYLENE GLYCOL 3350 17 GM/Dose PACKET PO SCH (10:13)
--- NOTE | 2017-12-16 10:58 | PN ---
DATE: PULMONARY PROGRESS NOTE SUBJECTIVE: The patient was seen and examined on Telemetry. He is actually in Transitional Care Unit. He appears comfortable this morning. He is not short of breath. PHYSICAL EXAMINATION VITAL SIGNS: Afebrile. HEENT: Head, ears, nose, and throat within normal limits. CARDIOVASCULAR: Systolic ejection murmur at the lower sternal border. No gallop. LUNGS: Minimal rhonchi. No wheezing. EXTREMITIES: 1+ pedal edema. No cyanosis. GASTROINTESTINAL: Soft, nontender. No organomegaly. SKIN: No acute skin rash. NEUROLOGIC: Limited at the present time. ASSESSMENT 1. Chronic obstructive pulmonary disease, improved. 2. 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 3. Advanced prostate cancer. 4. Advanced coronary artery disease. 5. Chronic anemia. PLAN: The patient appears comfortable. He is not short of breath at rest. He feel he is very weak and fatigued. We will continue his current administration of nebulizer. Medication, on low-dose steroids for now. We will recheck p.r.n. Papa Cano MD
[2017-12-16] MEDS: Insulin Human NPH/Reg 70/30 Vial(3 ml) SC SCH (12:15)
[2017-12-16] MEDS: Digoxin 125 mcg (0.125 mg) Tab PO SCH (13:34)
--- NOTE | 2017-12-16 16:00 | PN ---
DATE: 12/16/2017 REASON FOR CONSULTATION AND FOLLOWUP: History of coronary artery disease, status post PTCA, CABG, ischemic cardiomyopathy, status post AICD, admitted with hematuria, prostate CA with mets, continuation of care in the transitional care unit. SUBJECTIVE: Patient denies any chest pain, shortness of breath or any palpitation. OBJECTIVE: GENERAL: Not in apparent distress. VITAL SIGNS: Temperature afebrile, heart rate 60, blood pressure 119/76. HEENT: PERRLA. Extraocular muscles intact. NECK: Supple. No carotid bruit or thyromegaly. CHEST: Clear to auscultation. HEART: S1, S2 regular. ABDOMEN: Soft. EXTREMITIES: Clubbing and cyanosis negative. LABORATORY DATA: Blood workup as follows: WBC 9.8, hemoglobin 9.5, hematocrit 30.4, platelet count 230. Chemistry shows sodium 134, potassium 5.9, CO2 of 30, anion gap of 12, BUN 37, creatinine 1.1. IMPRESSION: Constipation; coronary artery disease; hematuria; prostate cancer with metastasis; status post pre and post coronary artery bypass grafting; percutaneous transluminal coronary angioplasty; ejection fraction 45%; paroxysmal atrial fibrillation; at one point, patient off anticoagulation because of hematuria; status post automatic implantable cardioverter-defibrillator, recently generator change, 11/2016, last interrogation, 09/20/2017 with normal functioning. RECOMMENDATION: Continue amiodarone, continue digoxin, continue gentle diuretics. 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 Continue levothyroxine. Code status DNR. Continue supportive care. Patient complained of constipation, we will give dose of lactulose. Mely Chavarria MD
[2017-12-16 16:29] VITALS: O2SAT 99
[2017-12-16] MEDS: Gentamicin 160 MG in Sodium Chloride 0.9% 100 ML IVPB SCH (16:58)
--- NOTE | 2017-12-16 17:08 | CP.PCM.PN ---
Subjective - Date & Time of Evaluation Date of Evaluation: 12/16/17 Time of Evaluation: 10:45 - Subjective Subjective: Comfortable, not in distress. No fevers. Objective - Vital Signs/Intake and Output Vital Signs (last 24 hours): Temp Pulse Resp BP Pulse Ox 97.5 F L 67 16 134/53 L 98 12/15/17 10:00 12/15/17 10:00 12/15/17 10:00 12/15/17 17:20 12/15/17 10:00 Intake and Output: 12/15/17 12/15/17 06:59 18:59 Intake Total 400 Output Total 1000 Balance -600 - Medications Medications: Current Medications Albuterol/Ipratropium (Duoneb 3 Mg/0.5 Mg (3 Ml) Ud) 3 ml IH Q2H PRN; Protocol PRN Reason: Shortness of Breath Albuterol/Ipratropium (Duoneb 3 Mg/0.5 Mg (3 Ml) Ud) 3 ml IH [id number] [facility]EANA PRN Reason: Protocol Last Admin: 12/15/17 13:31 Dose: 3 ml Amiodarone HCl (Cordarone) 200 mg PO DAILY [facility] PRN Reason: Protocol Last Admin: 12/15/17 11:00 Dose: 200 mg Digoxin (Digoxin) 0.125 mg PO 1400 [facility] PRN Reason: Protocol Last Admin: 12/15/17 13:00 Dose: 0.125 mg Doxercalciferol (Hectorol) 0.5 mcg PO DAILY [facility] PRN Reason: Protocol Last Admin: 12/15/17 11:00 Dose: 0.5 mcg Furosemide (Lasix) 40 mg PO BID [facility] PRN Reason: Protocol Last Admin: 12/15/17 17:20 Dose: 40 mg Gentamicin Sulfate 160 mg/ (Sodium Chloride) 104 mls @ 104 mls/hr IVPB Q24H [facility] PRN Reason: Protocol Last Admin: 12/15/17 17:18 Dose: 104 mls/hr Insulin Human Regular (Humulin R Med) 0 units SC ACHS [facility] PRN Reason: Protocol Last Admin: 12/15/17 16:30 Dose: Not Given Levothyroxine Sodium (Synthroid) 100 mcg PO 0600 [facility] PRN Reason: Protocol Last Admin: 12/15/17 05:49 Dose: 100 mcg Montelukast Sodium (Singulair) 10 mg PO DAILY [facility] PRN Reason: Protocol Last Admin: 12/15/17 11:29 Dose: 10 mg Morphine Sulfate (Morphine) 1 mg SC Q4H PRN; Protocol PRN Reason: Pain, severe (8-10) Nystatin (Nystop Topical Powder) 0 gm TOP BID PRN; Protocol PRN Reason: Rash Pantoprazole Sodium (Protonix Ec Tab) 40 mg PO 0600 [facility] PRN Reason: Protocol Last Admin: 12/15/17 05:49 Dose: 40 mg Polyethylene Glycol (Miralax) 17 gm PO DAILY [facility] PRN Reason: Protocol Last Admin: 12/15/17 11:00 Dose: 17 gm Prednisone (Prednisone Tab) 5 mg PO 0800 [facility] PRN Reason: Protocol Last Admin: 12/15/17 08:31 Dose: 5 mg Sucralfate (Carafate Oral Susp) 1 gm PO 0600,1600 [facility] Last Admin: 12/15/17 17:19 Dose: 1 gm Tramadol HCl (Ultram) 50 mg PO TID PRN; Protocol PRN Reason: Pain, moderate (4-7) Last Admin: 12/15/17 12:51 Dose: 50 mg - Labs Labs: 12/14/17 06:15 12/14/17 06:15 - Constitutional Appears: Chronically Ill - Head Exam Head Exam: NORMAL INSPECTION - ENT Exam ENT Exam: Mucous Membranes Moist - Neck Exam Neck Exam: absent: Meningismus - Respiratory Exam Respiratory Exam: Decreased Breath Sounds - Cardiovascular Exam Cardiovascular Exam: +S1, +S2 - GI/Abdominal Exam GI & Abdominal Exam: Soft. absent: Tenderness Assessment and Plan - Assessment and Plan (Free Text) Plan: Assessment consider complicated UTI with multi-drug resistant Klebsiella in this patient with chronic indwelling Avendano catheter history of sepsis due to systemic viral illness with Influenza as well as UTI with E. coli and E. faecalis history of severe sepsis with acute renal failure due to E. 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 diff. associated diarrhea S/P lower urinary tract infection in a patient with indwelling Avendano catheter growing Carbapenem-resistant Klebsiella history of right foot necrotic ulcer with surrounding cellulitis UTI with Enterococcus and Klebsiella chronic renal failure history of DVT DM metastatic Prostate CA history of Enterococcus UTI chronic atrial fibrillation S/P pacemaker and ICD placement Plan continue Gentamicin day 7 and follow up repeat urine cx (still showing 10-50 GNB , but decreased in colony count); would recommend change of Avendano catheter when feasible; complete at least 7 days of antibiotics follow up Urology recommendations and evaluation
[2017-12-17] MEDS: Levothyroxine 100 MCG TAB PO SCH (05:31)
[2017-12-17] MEDS: Sucralfate 1 gm/10 ml Oral Susp UD PO SCH ×2 (05:31→18:49)
[2017-12-17] MEDS: Pantoprazole 40 mg EC Tab PO SCH (05:31)
[2017-12-17] MEDS: Insulin Reg-MEDIUM-Coverage SC SCH ×3 (06:53→23:02)
[2017-12-17] MEDS: Albuterol-Ipratrop 3 mg / 0.5 (3 ml) UD IH SCH ×3 (08:42→20:26)
[2017-12-17] MEDS: Insulin Human NPH/Reg 70/30 Vial(3 ml) SC SCH (12:59)
[2017-12-17] MEDS: POLYETHYLENE GLYCOL 3350 17 GM/Dose PACKET PO SCH (13:00)
--- NOTE | 2017-12-17 14:28 | PN ---
DATE: SUBJECTIVE: The patient is in the Transitional Care Unit, room 317, bed 1. The patient is an 87-year-old male. He was admitted to the unit for deconditioning, rehabilitation, treatment of back pain, urinary tract infection, hematuria. The patient is seen this morning. He seemed to be in discomfort. He says he has terrible pain in his back and he needs pain medication. PHYSICAL EXAMINATION: VITAL SIGNS: This morning; the patient's pulse is 64, blood pressure 130/76. His oxygen level is satisfactory by pulse oximeter. LUNGS: Clinically clear. HEART: Normal sinus rhythm. S1 and S2 present. The patient has a cardiac pacemaker. ABDOMEN: Soft. Liver and spleen not palpable. 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 MEDICATIONS: Consists of Carafate. The patient is on amiodarone, digoxin, albuterol, Pulmicort, gentamicin, insulin coverage for diabetes, vitamin B, prednisolone, Synthroid, MiraLax, morphine for pain and also the patient is on nystatin for fungal infection of the perianal and groin area. The patient's diet is 2 g sodium heart healthy diet, diabetic. LABORATORY DATA: The patient's laboratory findings on the 12/14, hemoglobin 9.5. His chemistries, the blood sugar is 105 today. ASSESSMENT AN PLAN: Condition seemed to be improving, but he still complains of pain and he says that he probably needs further help with his rehab because of the get out bed and to walk and also he has problem with pain in the lower perianal area and lower back consistent with pain associated with metastatic disease to the bone from prostate carcinoma. His condition needs . Giselle Polk MD
[2017-12-17] MEDS: Digoxin 125 mcg (0.125 mg) Tab PO SCH (14:49)
--- NOTE | 2017-12-17 16:42 | CP.PCM.PN ---
Subjective - Date & Time of Evaluation Date of Evaluation: 12/17/17 Time of Evaluation: 10:45 - Subjective Subjective: Comfortable, no fevers, not in distress, no diarrhea. Objective - Vital Signs/Intake and Output Vital Signs (last 24 hours): Temp Pulse Resp BP Pulse Ox 98.3 F 60 20 145/60 99 12/16/17 16:28 12/16/17 16:28 12/16/17 16:28 12/16/17 16:28 12/16/17 16:28 Intake and Output: 12/16/17 12/16/17 06:59 18:59 Intake Total 240 Output Total 1050 600 Balance -1050 -360 - Medications Medications: Current Medications Albuterol/Ipratropium (Duoneb 3 Mg/0.5 Mg (3 Ml) Ud) 3 ml IH Q2H PRN; Protocol PRN Reason: Shortness of Breath Albuterol/Ipratropium (Duoneb 3 Mg/0.5 Mg (3 Ml) Ud) 3 ml IH [id number] JEANA PRN Reason: Protocol Last Admin: 12/16/17 13:24 Dose: 3 ml Amiodarone HCl (Cordarone) 200 mg PO DAILY [facility] PRN Reason: Protocol Last Admin: 12/16/17 10:07 Dose: 200 mg Digoxin (Digoxin) 0.125 mg PO 1400 [facility] PRN Reason: Protocol Last Admin: 12/16/17 13:34 Dose: 0.125 mg Doxercalciferol (Hectorol) 0.5 mcg PO DAILY [facility] PRN Reason: Protocol Last Admin: 12/16/17 10:12 Dose: 0.5 mcg Furosemide (Lasix) 40 mg PO BID [facility] PRN Reason: Protocol Last Admin: 12/16/17 10:12 Dose: 40 mg Gentamicin Sulfate 160 mg/ (Sodium Chloride) 104 mls @ 104 mls/hr IVPB Q24H [facility] PRN Reason: Protocol Last Admin: 12/15/17 17:18 Dose: 104 mls/hr Insulin Human Regular (Humulin R Med) 0 units SC ACHS [facility] PRN Reason: Protocol Last Admin: 12/16/17 12:12 Dose: 5 units Levothyroxine Sodium (Synthroid) 100 mcg PO 0600 [facility] PRN Reason: Protocol Last Admin: 12/16/17 05:46 Dose: 100 mcg Montelukast Sodium (Singulair) 10 mg PO DAILY [facility] PRN Reason: Protocol Last Admin: 12/16/17 10:13 Dose: 10 mg Morphine Sulfate (Morphine) 1 mg SC Q4H PRN; Protocol PRN Reason: Pain, severe (8-10) Nystatin (Nystop Topical Powder) 0 gm TOP BID PRN; Protocol PRN Reason: Rash Pantoprazole Sodium (Protonix Ec Tab) 40 mg PO 0600 [facility] PRN Reason: Protocol Last Admin: 12/16/17 05:46 Dose: 40 mg Polyethylene Glycol (Miralax) 17 gm PO DAILY [facility] PRN Reason: Protocol Last Admin: 12/16/17 10:13 Dose: 17 gm Prednisone (Prednisone Tab) 5 mg PO 0800 [facility] PRN Reason: Protocol Last Admin: 12/16/17 07:54 Dose: 5 mg Sucralfate (Carafate Oral Susp) 1 gm PO 0600,1600 [facility] Last Admin: 12/16/17 05:47 Dose: 1 gm Tramadol HCl (Ultram) 50 mg PO TID PRN; Protocol PRN Reason: Pain, moderate (4-7) Last Admin: 12/16/17 13:40 Dose: 50 mg - Labs Labs: 12/14/17 06:15 12/14/17 06:15 - Constitutional Appears: Chronically Ill - Head Exam Head Exam: NORMAL INSPECTION - ENT Exam ENT Exam: Mucous Membranes Moist - Neck Exam Neck Exam: absent: Meningismus - Respiratory Exam Respiratory Exam: Decreased Breath Sounds - Cardiovascular Exam Cardiovascular Exam: +S1, +S2 - GI/Abdominal Exam GI & Abdominal Exam: Soft. absent: Tenderness Assessment and Plan - Assessment and Plan (Free Text) Plan: Assessment consider complicated UTI with multi-drug resistant Klebsiella in this patient with chronic indwelling Avendano catheter history of sepsis due to systemic viral illness with Influenza as well as UTI with E. coli and E. faecalis history of severe sepsis with acute renal failure due to E. 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 diff. associated diarrhea S/P lower urinary tract infection in a patient with indwelling Avendano catheter growing Carbapenem-resistant Klebsiella history of right foot necrotic ulcer with surrounding cellulitis UTI with Enterococcus and Klebsiella chronic renal failure history of DVT DM metastatic Prostate CA history of Enterococcus UTI chronic atrial fibrillation S/P pacemaker and ICD placement Plan continue Gentamicin day 8 and follow up repeat urine cx (still showing 10-50 GNB , but decreased in colony count); would recommend change of Avendano catheter when feasible; complete at least 7 days of antibiotics follow up Urology recommendations and evaluation
--- NOTE | 2017-12-17 17:01 | PN ---
DATE: REASON FOR CONSULTATION: Followup history of coronary artery disease, status post PTCA, CABG, ischemic cardiomyopathy, status post AICD, admitted with hematuria, CA of prostate with mets,continuity of care in Transitional Care Unit. SUBJECTIVE: Patient denies any chest pain, shortness of breath, any palpitation and was complaining of constipation, given lactulose, feels lot better. PHYSICAL EXAMINATION: GENERAL: Not in apparent distress. VITAL SIGNS: Temperature afebrile, heart rate 80, blood pressure 145/60. HEENT: PERRLA. Extraocular muscles intact. NECK: Supple. No carotid bruits or thyromegaly. CHEST: Clear to auscultation. HEART: S1, S2 regular. ABDOMEN: Soft. EXTREMITIES: Clubbing and cyanosis, negative. LABORATORY DATA: Blood workup as follows; WBC 9.8, hemoglobin 9.5, hematocrit 30.4, platelet count 230. Chemistry shows sodium 134, potassium 5.9, carbon dioxide of 30, anion gap of 12, BUN 37, creatinine 1.1. IMPRESSION: Constipation resolved, hematuria improved, cancer of prostate with metastasis, paroxysmal atrial fibrillation, off anticoagulation because of hematuria, history of coronary artery disease, history of coronary artery bypass graft, history of pre and post coronary artery bypass graft; percutaneous transluminal coronary angioplasty, history of automatic implantable cardioverter-defibrillator, history of generator change in 11/2016, last interrogation in September when the patient delivered ventricular fibrillation with shock, had a normal functioning pacemaker. RECOMMENDATION: Continue supportive care. Overall, the patient's condition is critical. Long-term prognosis is guarded. Continue amiodarone 200 mg to prevent going back into AFib. Continue digoxin 0.125 daily. We will get the digoxin level tomorrow. Continue antibiotic. We will follow with you. We will repeat CMP and digoxin level in the morning. We will get CBC, CMP and digoxin level in the morning. Thank you, Dr. Polk, for providing us the opportunity in taking care of the patient, Ziggy Amador. We will follow with you. Mely Chavarria MD
[2017-12-17] MEDS: Gentamicin 160 MG in Sodium Chloride 0.9% 100 ML IVPB SCH (18:54)
[2017-12-18] MEDS: Albuterol-Ipratrop 3 mg / 0.5 (3 ml) UD IH SCH ×4 (01:19→13:29)
[2017-12-18] MEDS: Sucralfate 1 gm/10 ml Oral Susp UD PO SCH (05:29)
[2017-12-18] MEDS: Pantoprazole 40 mg EC Tab PO SCH (05:29)
[2017-12-18] MEDS: Levothyroxine 100 MCG TAB PO SCH (05:29)
[2017-12-18] MEDS: Insulin Reg-MEDIUM-Coverage SC SCH ×2 (06:42→12:15)
[2017-12-18 06:52] LABS: BASO # 0.02 K/mm3 (0.0-2.0); BASO % 0.3 % (0.0-3.0); EOS # 0.1 (0.0-0.7); EOS % 1.6 % (1.5-5.0); GRAN # 6.08 (1.4-6.5); GRAN % 76.6 % (50.0-68.0); HEMOGLOBIN 9.1 g/dL (14.0-18.0); LYMPH # 0.8 (1.2-3.4); LYMPH % 9.9 % (22.0-35.0); MEAN CELL VOLUME 87.6 fl (80.0-105.0); MEAN CORPUSCULAR HEMOGLOBIN 28.2 pg (25.0-35.0); MEAN CORPUSCULAR HGB CONC 32.2 g/dl (31.0-37.0); MEAN PLATELET VOLUME 9.6 fl (7.0-11.0); MONO # 0.9 (0.1-0.6); MONO % 11.6 % (1.0-6.0); RBC 3.23 10^6/uL (3.5-6.1); RED CELL DISTRIBUTION WIDTH 16.6 % (11.5-14.5); WHITE BLOOD COUNT 7.9 10^3/ul (4.5-11.0)
[2017-12-18 07:23] LABS: ALBUMIN 2.8 g/dL (3.0-4.8); CALCIUM 8.5 mg/dL (8.4-10.5); MAGNESIUM 2.3 mg/dL (1.7-2.2)
--- NOTE | 2017-12-18 08:43 | PN ---
DATE: 12/18/2017 PULMONARY NOTE SUBJECTIVE: Patient appears comfortable this morning. He is not short of breath at rest. PHYSICAL EXAMINATION: VITAL SIGNS: Temperature is 98.3, pulse 60, respirations 18, blood pressure 170/76. Oxygen saturation on nasal cannula is 99%. HEENT: Normocephalic, atraumatic. No JVD. CARDIOVASCULAR: Systolic ejection murmur at the lower left sternal border. No S3 gallop. LUNGS: Clear bilaterally this morning. EXTREMITIES: Less edema. No cyanosis, no clubbing. Calves are nontender to palpation. GASTROINTESTINAL: Abdomen is soft, nontender and nondistended. Bowel sounds are positive. SKIN: No acute rash. NEUROLOGIC: Exam limited at the present time. IMPRESSION: 1. Hematuria. 2. Advanced prostate cancer. 3. Advanced chronic obstructive pulmonary disease. 4. Advanced coronary artery disease. 5. Chronic kidney disease. 6. Chronic anemia. PLAN: Patient appears comfortable this morning. He is not short of breath at rest. He does state to feeling better overall. On physical exam, his lungs are clear this morning. In addition, the oxygen saturation on nasal cannula is 99%. I will continue the current nebulizer treatments and low-dose oral steroids for now. Inputs by Infectious Disease and Cardiology are also noted. Clinical status of the patient is certainly improved - compared to the initial presentation. However, again, unfortunately, the future status/prognosis for this patient remains poor. I will discuss the above with Dr. Polk. Kwadwo Arias MD MTDD
[2017-12-18] MEDS: POLYETHYLENE GLYCOL 3350 17 GM/Dose PACKET PO SCH (10:24)
[2017-12-18 10:32] VITALS: BP 130/61; PULSE 70
[2017-12-18] MEDS: Insulin Human NPH/Reg 70/30 Vial(3 ml) SC SCH (12:15)
--- NOTE | 2017-12-18 13:56 | PN ---
SUBJECTIVE: The patient is in Transitional Care Unit, room 317, bed 1. The patient was admitted with hematuria, urinary sepsis, anemia, congestive heart failure and the patient has history of prostatic carcinoma with metastatic disease in the lymph nodes and the bones of the lower lumbar spine area. The patient has severe pain in the back. He has difficulty in walking. He complains of these symptoms for the last few days, and the patient has been getting physical therapy and rehabilitation in the Transitional Care Unit. PHYSICAL EXAMINATION: VITAL SIGNS: This morning, his pulse is 62, blood pressure is 150/70. LUNGS: Clear. HEART: Normal sinus rhythm. The patient has a pacemaker seen with examination. NEUROLOGIC: He is conscious. He is oriented. No focal deficits excepting diffuse pain in the lower back. MEDICATIONS: The patient's medications will be continued. There is no change from yesterday. LABORATORY DATA: The patient's lab work that was done shows hemoglobin of 9.1, which is slightly lower than the result that was presented on 12/14/2017. The patient has chronic anemia. PLAN: With the patient's condition and further management will be based on whether the patient wants to get further rehab in if they would accept him or he will have to go home another . Giselle Polk MD
[2017-12-18] MEDS: Digoxin 125 mcg (0.125 mg) Tab PO SCH (14:30)
[2017-12-18 14:38] VITALS: PULSE 65
[2017-12-18 14:49] VITALS: RESP 18; TEMP 98.2
--- NOTE | 2017-12-18 15:38 | PN ---
LOCATION: The patient is in room 317, bed 1. REASON FOR CONSULTATION: Followup coronary artery disease, status post PTCA, CABG, ischemic cardiomyopathy, status post AICD insertion, admitted with hematuria, carcinoma of prostate with metastasis including a bone, deconditioning. SUBJECTIVE: The patient denies any chest pain, shortness of breath, palpitation. The patient is getting physical therapy. PHYSICAL EXAMINATION VITAL SIGNS: Blood pressure 152/72, respirations 18, pulse 76. The patient is afebrile. HEENT: Head is normocephalic. Eyes: Pupils normal. Conjunctivae slightly pale. NECK: JVP low. Carotids equal. THORAX: AP diameter normal. LUNGS: Clear. CARDIOVASCULAR: S1, S2. Systolic murmur. ABDOMEN: Discomfort and tenderness in the low pelvic region. EXTREMITIES: No clubbing, no cyanosis. LABORATORY DATA: WBC 7.9, hemoglobin 9.1, hematocrit 28.3, platelets 226. Sodium 133, potassium 4.8, BUN 55, creatinine 1.6, random glucose 121, calcium 8.5, phosphorus 4.5, magnesium 2.3, total bilirubin is 0.5, alkaline phosphatase 274, total protein 5.5, albumin 2.8. DIAGNOSES: Hematuria, reduced carcinoma of the prostate with metastasis, anemia, atrial fibrillation, not a candidate for anticoagulation because of severe hematuria, history of coronary artery disease, history of coronary artery bypass surgery, history of multiple stents insertion, ischemic cardiomyopathy, status post automatic implantable cardioverter defibrillator insertion, generator change in 11/2016, last interrogation this 09/2017 during the patient shock was delivered due to ventricular fibrillation, normal functioning automatic implantable cardioverter defibrillator, renal dysfunction, deconditioning. PLAN: To continue amiodarone 200 mg p.o. daily, digoxin 0.125 daily, nebulizer therapy, insulin as ordered, furosemide 40 b.i.d., Protonix 40 daily, levothyroxine 100 mcg p.o. daily. We will continue physical therapy and we will continue to follow with you clinically. Cardiac status, stable. Mely Walters MD
--- NOTE | 2017-12-18 17:01 | CP.PCM.PN ---
Subjective - Date & Time of Evaluation Date of Evaluation: 12/18/17 Time of Evaluation: 11:40 - Subjective Subjective: No fevers, not in distress, feeling better. Objective - Vital Signs/Intake and Output Vital Signs (last 24 hours): Temp Pulse Resp BP Pulse Ox 98.3 F 76 20 170/76 H 99 12/16/17 16:28 12/17/17 10:53 12/16/17 16:28 12/17/17 10:53 12/16/17 16:28 Intake and Output: 12/17/17 12/17/17 06:59 18:59 Intake Total 240 Output Total 1450 Balance -1210 - Medications Medications: Current Medications Albuterol/Ipratropium (Duoneb 3 Mg/0.5 Mg (3 Ml) Ud) 3 ml IH Q2H PRN; Protocol PRN Reason: Shortness of Breath Albuterol/Ipratropium (Duoneb 3 Mg/0.5 Mg (3 Ml) Ud) 3 ml IH [id number] JEANA PRN Reason: Protocol Last Admin: 12/17/17 13:57 Dose: 3 ml Amiodarone HCl (Cordarone) 200 mg PO DAILY JEANA PRN Reason: Protocol Last Admin: 12/17/17 10:53 Dose: 200 mg Digoxin (Digoxin) 0.125 mg PO 1400 JEANA PRN Reason: Protocol Last Admin: 12/16/17 13:34 Dose: 0.125 mg Doxercalciferol (Hectorol) 0.5 mcg PO DAILY JEANA PRN Reason: Protocol Last Admin: 12/17/17 10:54 Dose: 0.5 mcg Furosemide (Lasix) 40 mg PO BID JEANA PRN Reason: Protocol Last Admin: 12/17/17 06:00 Dose: 40 mg Gentamicin Sulfate 160 mg/ (Sodium Chloride) 104 mls @ 104 mls/hr IVPB Q24H JEANA PRN Reason: Protocol Last Admin: 12/16/17 16:58 Dose: 104 mls/hr Insulin Human Regular (Humulin R Med) 0 units SC ACHS JEANA PRN Reason: Protocol Last Admin: 12/17/17 13:00 Dose: Not Given Levothyroxine Sodium (Synthroid) 100 mcg PO 0600 JEANA PRN Reason: Protocol Last Admin: 12/17/17 05:31 Dose: 100 mcg Montelukast Sodium (Singulair) 10 mg PO DAILY JEANA PRN Reason: Protocol Last Admin: 12/17/17 13:00 Dose: 10 mg Morphine Sulfate (Morphine) 1 mg SC Q4H PRN; Protocol PRN Reason: Pain, severe (8-10) Nystatin (Nystop Topical Powder) 0 gm TOP BID PRN; Protocol PRN Reason: Rash Pantoprazole Sodium (Protonix Ec Tab) 40 mg PO 0600 JEANA PRN Reason: Protocol Last Admin: 12/17/17 05:31 Dose: 40 mg Polyethylene Glycol (Miralax) 17 gm PO DAILY JEANA PRN Reason: Protocol Last Admin: 12/17/17 13:00 Dose: Not Given Prednisone (Prednisone Tab) 5 mg PO 0800 JEANA PRN Reason: Protocol Last Admin: 12/17/17 08:41 Dose: 5 mg Sucralfate (Carafate Oral Susp) 1 gm PO 0600,1600 JEANA Last Admin: 12/17/17 05:31 Dose: 1 gm Tramadol HCl (Ultram) 50 mg PO TID PRN; Protocol PRN Reason: Pain, moderate (4-7) Last Admin: 12/17/17 05:32 Dose: 50 mg - Labs Labs: 12/14/17 06:15 12/14/17 06:15 - Constitutional Appears: Chronically Ill - Head Exam Head Exam: NORMAL INSPECTION - Neck Exam Neck Exam: absent: Meningismus - Respiratory Exam Respiratory Exam: Decreased Breath Sounds - Cardiovascular Exam Cardiovascular Exam: +S1, +S2 - GI/Abdominal Exam GI & Abdominal Exam: Soft. absent: Tenderness Assessment and Plan - Assessment and Plan (Free Text) Plan: Assessment consider complicated UTI with multi-drug resistant Klebsiella in this patient with chronic indwelling Avendano catheter history of sepsis due to systemic viral illness with Influenza as well as UTI with E. coli and E. faecalis history of severe sepsis with acute renal failure due to E. 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 diff. associated diarrhea S/P lower urinary tract infection in a patient with indwelling Avendano catheter growing Carbapenem-resistant Klebsiella history of right foot necrotic ulcer with surrounding cellulitis UTI with Enterococcus and Klebsiella chronic renal failure history of DVT DM metastatic Prostate CA history of Enterococcus UTI chronic atrial fibrillation S/P pacemaker and ICD placement Plan on Gentamicin day 9 - will d/c since patient is developing renal failure and patient has had more than 7 days of antibiotics should follow up with Urology as an outpatient
== END 2017-12-18 15:17 | DRG 945 ==
LOC: TRCU 11:56
PROVIDERS: ADMIT Internal Medicine; ATTEND Internal Medicine
PROC: 3E0F7GC Introduction of Other Therapeutic Substance into Respiratory Tract, Via Natural or Artificial Opening (ICD-10-PCS; 2017-12-10)
PROC: F07Z9FZ Gait Training/Functional Ambulation Treatment using Assistive, Adaptive, Supportive or Protective Equipment (ICD-10-PCS; principal; 2017-12-11)
PROC: F08Z4FZ Home Management Treatment using Assistive, Adaptive, Supportive or Protective Equipment (ICD-10-PCS; 2017-12-11)
DX: R53.1 Weakness (principal); C79.51 Secondary malignant neoplasm of bone; C77.9 Secondary and unspecified malignant neoplasm of lymph node, unspecified; R26.2 Difficulty in walking, not elsewhere classified; E11.22 Type 2 diabetes mellitus with diabetic chronic kidney disease; E46 Unspecified protein-calorie malnutrition; I13.0 Hypertensive heart and chronic kidney disease with heart failure and stage 1 through stage 4 chronic kidney disease, or unspecified chronic kidney disease; I48.0 Paroxysmal atrial fibrillation; I08.3 Combined rheumatic disorders of mitral, aortic and tricuspid valves; I50.9 Heart failure, unspecified; C61 Malignant neoplasm of prostate; D64.9 Anemia, unspecified; N39.0 Urinary tract infection, site not specified; I48.2 Chronic atrial fibrillation; J44.9 Chronic obstructive pulmonary disease, unspecified; E03.9 Hypothyroidism, unspecified; I25.10 Atherosclerotic heart disease of native coronary artery without angina pectoris; N18.9 Chronic kidney disease, unspecified; R33.9 Retention of urine, unspecified; I25.5 Ischemic cardiomyopathy; K59.00 Constipation, unspecified; E78.5 Hyperlipidemia, unspecified; Z66 Do not resuscitate; Z16.24 Resistance to multiple antibiotics; Z79.2 Long term (current) use of antibiotics; Z86.718 Personal history of other venous thrombosis and embolism; Z86.711 Personal history of pulmonary embolism; Z95.1 Presence of aortocoronary bypass graft; Z95.5 Presence of coronary angioplasty implant and graft; Z95.810 Presence of automatic (implantable) cardiac defibrillator; Z89.421 Acquired absence of other right toe(s)